=== PATIENT | female | born 1990 | race Caucasian/White ===

== ENCOUNTER 2019-08-09 21:49 | Emergency (ER) | payer OTHER, SELFPAY ==
--- NOTE | ~2019-08-09 | XR_ITS ---
EXAMINATION: XR chest 1V portable INDICATION: Shortness of breath TECHNIQUE: Portable AP chest at 2039 hours COMPARISON: 04/10/2015 FINDINGS: The lungs are free of acute opacities. There is no pleural effusion or pneumothorax. The ca rdiomediastinal silhouette is normal. The visualized bones and soft tissues are unremarkable. IMPRESSION: 1. No acute cardiopulmonary abnormality. Reviewed, dictated and finalized at location A.
[2019-08-09 21:51] VITALS: BP 147/98; PULSE 99; RESP 18; TEMP 36.2; O2SAT 99
--- NOTE | 2019-08-09 22:02 | ECG_ITS ---
Measurements Intervals [place] Rate: 82 P: 8 ID: [id number] QRS: -4 QRSD: 97 T: 6 QT: 361 QTc: 422 Interpretive Statements SINUS RHYTHM VOLTAGE CRITERIA FOR LVH DELAYED PRECORDIAL R/S TRANSITION MINIMAL Q WAVES- HIGH LATERAL LEADS BORDERLINE T WAVE ABNORMALITY- INFERIOR LEADS BORDERLINE ECG Electronically Signed On 08-10-2019 7:40:33 CDT by Kali Lujan D.O.
--- NOTE | 2019-08-09 22:29 | ED.GENADULT ---
HPI - General Adult General Chief complaint: Unspecified Stated complaint: leg swelling Time Seen by Provider: 08/09/19 22:01 Source: RN notes reviewed History of Present Illness HPI narrative: Patient presents emergency department from home for swelling of her legs. Patient states she is had edema of her bilateral legs for the past week. She was seen at her PCPs yesterday and started on a diuretic with minimal improvement. Patient states she called her PCP denied is recommended come to the ED for further evaluation. States she did have surgery on her left foot which is currently in a cast on 07/16/2019. She denies any fevers or chills chest pain shortness of breath abdominal pain, calf pain or any other symptoms. Denies any history of DVT Related Data Home Medications Medication Instructions Recorded Confirmed albuterol sulfate 1 inh INHALATION QID PRN 08/09/19 08/09/19 aspirin 325 mg PO 08/09/19 furosemide 20 mg PO 08/09/19 Allergies Allergy/AdvReac Type Severity Reaction Status Date / Time acetazolamide Allergy Swelling Verified 08/09/19 22:20 of Lip/Tongue/Throat dihydroergotamine Allergy Difficulty Verified 08/09/19 22:20 Breathing lamotrigine [From Lamictal] Allergy Seizure Verified 08/09/19 22:20 levetiracetam [From Keppra] Allergy Seizure Verified 08/09/19 22:20 acetaminophen [From Vicodin] AdvReac Nausea Verified 08/09/19 22:20 hydrocodone [From Vicodin] AdvReac Nausea Verified 08/09/19 22:20 Review of Systems Review of Systems: Narrative: Gen.: Denies fevers or chills ENT: Denies congestion Respiratory: Denies shortness of breath or cough CV: Denies chest pain or palpitations GI: Denies abdominal pain nausea, emesis or diarrhea Musculoskeletal: Denies back pain or muscle pain, reports swelling of the legs Neuro: Denies numbness, tingling, weakness or focal weakness Skin: Denies rash Except as documented, all other systems reviewed and negative PMFSH Past Medical History Medical History (Updated 08/10/19 @ 00:18 by Nestor Wood DO) Patient denies significant medical history Social History Social History (Updated 08/09/19 @ 22:30 by Nestor Wood DO) Smoking status: Never smoker Exam Narrative: Exam Narrative: APPEARANCE: No acute distress, nontoxic, resting in bed EYES: EOMI HEENT: Normocephalic, atraumatic, OMM RESPIRATORY: No respiratory distress Clear to auscultation bilaterally with no rhonchi wheezing or rales. CARDIOVASCULAR: Regular rate and rhythm without murmurs rubs or gallops. ABDOMINAL: Soft, nontender, nondistended, no rebound or guarding MUSCULOSKELETAl: Moves all extremities. No clubbing, cyanosis o 2+ edema in the right lower extremity, the bilateral calves soft and nontender, left lower extremity and short leg cast NEURO: Awake and alert. Following commands, speech normal, no focal deficits SKIN:: Warm, dry. No rashes lesions or abrasions PSYCHIATRIC: Normal affect/mood, Course Course Emergency Course: Called and discussed with Dr. 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 Agrees with plan for discharge with patient be sent for ultrasound in a.m. with single dose of Lovenox given Discussed with patient results of workup and diagnosis. Discussed need for follow-up with primary care, proper use of medication, and reasons to return to the emergency department. Patient understands and agrees to current treatment plan Vital Signs Vital signs: Vital Signs Temperature 97.1 F L 08/09/19 21:51 Pulse Rate 99 08/09/19 21:51 Respiratory Rate 18 08/09/19 21:51 Blood Pressure 147/98 H 08/09/19 21:51 Pulse Oximetry 99 08/09/19 21:51 Temperature 97.1 F L 08/09/19 21:51 Pulse Rate 99 08/09/19 21:51 Respiratory Rate 18 08/09/19 21:51 Blood Pressure 147/98 H 08/09/19 21:51 Pulse Oximetry 99 08/09/19 21:51 Medical Decision Making Vital Signs Vital Signs: Vital Signs Temperature 97.1 F L 08/09/19 21:51 Pulse
[2019-08-09 23:02] LABS: Basophils Percent Auto 0.3 % (0.2-1.2); Eosinophils Absolute Auto 0.1 K/mm3 (0-0.3); Eosinophils Percent Auto 0.5 % (0-4.4); Hematocrit 39.6 % (37.0-47.0); Hemoglobin 13.1 g/dL (12.0-15.0); Immature Granulocyte Absolute 0.05 K/mm3 (0.00-0.031); Immature Granulocyte Percent A 0.4 % (0-0.5); Lymphocytes Percent Auto 29.6 % (18.3-44.2); Mean Corpuscular HGB Conc 33.1 g/dl (32-36); Mean Corpuscular Hemoglobin 28.4 pg (26-34); Mean Corpuscular Volume 85.9 fl (80-100); Mean Platelet Volume 10.5 fl (7.4-10.4); Monocytes Absolute Auto 0.6 K/mm3 (0.1-0.6); Monocytes Percent Auto 5.5 % (2.6-8.5); Neutrophils Absolute Auto 7.1 K/mm3 (1.3-6.7); Neutrophils Percent Auto 63.7 % (45.5-73.1); Platelet Count Result 356 k/mm3 (150-375); Red Blood Count 4.61 M/mm3 (4.2-5.4); Red Cell Distribution Width 14.2 % (11.5-14.5); White Blood Count 11.2 K/mm3 (4.5-10.0)
[2019-08-09 23:10] LABS: Prothrombin Time 12.9 Seconds (11.1-14.7)
[2019-08-09 23:11] LABS: Partial Thromboplastin Time 31.5 SECONDS (22.3-36.8)
[2019-08-09 23:18] LABS: Blood Urea Nitrogen 12 mg/dL (7-17); Calcium 9.8 mg/dL (8.4-10.2); Carbon Dioxide 23 mmol/L (22-30); Chloride 101 mmol/L (98-107); Estimated CRCL calculation 153 ml/min; Estimated Glomerular Filt Rate > 60; Glucose 102 mg/dL (65-105); Potassium 3.6 mmol/L (3.4-5.0); Sodium 134 mmol/L (137-145)
[2019-08-09 23:30] LABS: NT Pro B Type Natriuretic Pept 46 PG/ML (5-100); Troponin I < 0.012 ng/mL (0.000-0.034)
[2019-08-10] MEDS: ENOXAPARIN 120 MG/0.8 ML SYRINGE SUB-Q (00:23)
[2019-08-10 00:27] VITALS: BP 126/81; PULSE 74; RESP 18; O2SAT 100
== END 2019-08-10 00:28 | disposition home or self-care (01) ==
PROVIDERS: Emergency Provider Emergency Medicine; PCP Family Medicine
DX: R60.0 Localized edema (principal); Z79.82 Long term (current) use of aspirin
CPT/HCPCS: 36415; 71045; 80048; 83880; 84484; 85025; 85610; 85730; 93005; 96372; 99284; J1650

== ENCOUNTER 2019-08-10 07:28 | Outpatient (CLI) | payer OTHER, SELFPAY ==
--- NOTE | ~2019-08-10 | US_ITS ---
EXAMINATION: US venous doppler LE EXAM DATE: 08/10/2019 08:25 INDICATION: Bilateral calf pain and swelling. TECHNIQUE: Multiple grayscale, color flow and Doppler images of the lower extremity deep venous syste ms bilaterally were obtained and reviewed. There is no prior study for comparison. FINDINGS: Right side: The right common femoral, femoral and profunda veins demonstrate normal color flow, respi ratory variation, augmentation and compressibility. Compressibility, color flow confirmed within the right popliteal, posterior tibial, peroneal, and greater saphenous veins. Left side: The left common femoral, femoral and profunda veins demonstrate normal color flow, respira tory variation, augmentation and compressibility. Compressibility, color flow confirmed within the l eft popliteal, posterior tibial, peroneal, and greater saphenous veins. IMPRESSION: 1. No lower extremity deep venous thrombosis bilaterally. Reviewed, dictated and finalized at location A.
== END 2019-08-10 07:29 | disposition home or self-care (01) ==
LOC: ANHIMG 07:31
PROVIDERS: Visit Provider Family Medicine
DX: M79.89 Other specified soft tissue disorders (principal)
CPT/HCPCS: 93970

== ENCOUNTER 2019-11-19 22:47 | Emergency (ER) | payer OTHER, SELFPAY ==
--- NOTE | ~2019-11-19 | XR_ITS ---
XR abdomen/kub 1V DATE: 11/20/2019 00:18 INDICATION: Right ureteral stone. Right flank pain. TECHNIQUE: AP projection COMPARISON: 11/19/[address] abdomen pelvis FINDINGS: 5 mm calcification overlies the right inner lower pelvis, consistent with calcified right u reterovesical junction calculus documented on 11/19/[address] abdomen pelvis examination. IUD overlies the mid pelvis. Subtle calcifications overlie the renal silhouettes consistent with bilateral nephrolithiasis better demonstrated on 11/19/[address] abdomen pelvis examination. There is a moderately prominent amount of fecal material in the colon; no bowel obstruction. The psoa s shadows are intact. No visceromegaly is evident. IMPRESSION: 5 mm calcified right ureterovesical junction calculus Bilateral nephrolithiasis IUD Reviewed, dictated and finalized at Location A. Reviewed, dictated and finalized at location A.
--- NOTE | ~2019-11-19 | CT_ITS ---
EXAMINATION: CT abdomen pelvis wo con DATE: 11/19/2019 23:45 INDICATION: Flank pain and hematuria TECHNIQUE: Computed tomography (CT) of the abdomen and pelvis was performed without intravenous contr ast. The dose-length product (DLP) was 1029.88 mGy-cm. Automated exposure control and iterative recon struction technique were employed. COMPARISON: 04/12/2015 FINDINGS: Minimal dependent atelectasis is present in the lung bases. The heart size is normal. There is a small sliding hiatal hernia. The liver, spleen, pancreas, gallbladder, and adrenal glands are n ormal. There is a 5 mm stone at the right ureterovesicular junction which causes mild right hydrouret eronephrosis. Nonobstructing stones of the right kidney measure up to 3 mm in the lower pole. Nonobst ructing stones of the left kidney measure up to 3 mm in the lower pole. No pathologically enlarged ab dominal or pelvic lymph nodes are identified. There is no free intraperitoneal gas or evidence of bow el obstruction. The appendix is normal. An IUD is present in the uterus in expected position. There i s a fat-containing umbilical hernia. IMPRESSION: 1. 5 mm stone at the right ureterovesicular junction causing mild hydroureteronephrosis. Consider KUB for treatment planning purposes. 2. Bilateral nephrolithiasis. Reviewed, dictated and finalized at location A. IMPRESSION: 1. 5 mm stone at the right ureterovesicular junction causing mild hydroureteron ephrosis. Consider KUB for treatment planning purposes. 2. Bilateral nephrolithiasis.
[2019-11-19 22:48] VITALS: BP 144/96; PULSE 81; RESP 16; TEMP 36.3; O2SAT 100
--- NOTE | 2019-11-19 23:14 | ED.FEMALEGU ---
HPI - Female Genitourinary General Chief complaint: Urogenital-Female Stated complaint: back pain, possible uti Time Seen by Provider: 11/19/19 22:53 Source: patient Mode of arrival: ambulatory Limitations: no limitations History of Present Illness HPI Narrative: This is a 29 year old female that presents to the ER for dysuria x 3 days. Associated with frequency, hematuria, nausea and flank pain. Reports one episode of vomiting. Also reports she slipped and fell one week ago and landed on her bottom. Reports since she has had sacral pain. Denies fever. Related Data Home Medications Medication Instructions Recorded Confirmed albuterol sulfate 1 inh INHALATION QID PRN 08/09/19 08/09/19 aspirin 325 mg PO 08/09/19 furosemide 20 mg PO 08/09/19 Allergies Allergy/AdvReac Type Severity Reaction Status Date / Time acetazolamide Allergy Swelling Verified 08/09/19 22:20 of Lip/Tongue/Throat dihydroergotamine Allergy Difficulty Verified 08/09/19 22:20 Breathing lamotrigine [From Lamictal] Allergy Seizure Verified 08/09/19 22:20 levetiracetam [From Keppra] Allergy Seizure Verified 08/09/19 22:20 hydrocodone [From Vicodin] AdvReac Nausea Verified 08/09/19 22:20 Review of Systems Review of Systems: Narrative: CONSTITUTIONAL: Denies fever GASTROINTESTINAL: Reports abdominal pain, nausea, vomiting GENITOURINARY: Reports dysuria and hematuria. MUSCULOSKELETAL: Reports back pain All systems reviewed & are unremarkable except as noted in HPI and below PMFSH Past Medical History Medical History (Updated 11/20/19 @ 01:27 by Jud Jaramillo PA-C) Patient denies significant medical history Social History Social History (Updated 08/09/19 @ 22:30 by Nestor Wood DO) Smoking status: Never smoker Exam Narrative: Exam Narrative: GENERAL: Well-appearing, well-nourished, and in no acute distress. HEAD: Normocephalic, atraumatic. EYES: EOMI. CHEST: Clear to auscultation. No respiratory distress. No wheezes rales or rhonchi HEART: Regular rate and rhythm. No murmur heard. Normal peripheral pulses. ABDOMEN: Soft, nontender, nondistended, normal active bowel sounds. No CVA tenderness BACK: No midline spinal tenderness EXTREMITIES: Normal range of motion. No edema. Strength equal in bilateral lower extremities (5/5) SKIN: Warm, dry, no rash. NEURO: No focal deficits. Alert and oriented x3. PSYCH: Normal mood and affect Course Vital Signs Vital signs: Vital Signs Temperature 97.4 F L 11/19/19 22:48 Pulse Rate 81 11/19/19 22:48 Respiratory Rate 16 11/19/19 22:48 Blood Pressure 144/96 H 11/19/19 22:48 Pulse Oximetry 100 11/19/19 22:48 Temperature 97.4 F L 11/19/19 22:48 Pulse Rate 81 11/19/19 22:48 Respiratory Rate 16 11/19/19 22:48 Blood Pressure 144/96 H 11/19/19 22:48 Pulse Oximetry 100 11/19/19 22:48 MDM - Female Genitourinary MDM Narrative Medical decision making narrative: Patient presents the emergency department for dysuria, frequency, and right-sided flank pain. She is afebrile and nontoxic-appearing. CBC with mild leukocytosis to 11.6. Kidney function is normal. Lactic acid is not elevated. UA is nitrate positive with greater than 75 red blood cells and 4-6 white blood cells. Bedside test is negative. CT scan of the abdomen and pelvis shows a 5 mm stone at the right UVJ with mild hydroureteronephrosis. Also shows bilateral nephrolithiasis. Patient was updated on case findings. Given IV fluids and pain medication with improvement. Given first dose of antibiotics IV in the ED. Spoke with Dr. Stacy about patient and work-up. Patient will be sent home on Flomax and antibiotics. Will be given pain medication as needed. She is to follow-up in clinic. Patient is stable and felt appropriate further outpatient evaluation. She was given warnings to return to the ER Lab Data Attestation: I reviewed the patient's lab results. Result diagrams:
[2019-11-19 23:23] LABS: Basophils Percent Auto 0.3 % (0.2-1.2); Eosinophils Absolute Auto 0.1 K/mm3 (0-0.3); Eosinophils Percent Auto 1.2 % (0-4.4); Hematocrit 36.9 % (37.0-47.0); Hemoglobin 11.8 g/dL (12.0-15.0); Immature Granulocyte Absolute 0.04 K/mm3 (0.00-0.031); Immature Granulocyte Percent A 0.3 % (0-0.5); Lymphocytes Absolute Auto 3.53 K/mm3 (0.9-3.2); Lymphocytes Percent Auto 30.5 % (18.3-44.2); Mean Corpuscular Hemoglobin 28.8 pg (26-34); Mean Platelet Volume 9.6 fl (7.4-10.4); Monocytes Absolute Auto 0.7 K/mm3 (0.1-0.6); Monocytes Percent Auto 5.9 % (2.6-8.5); Neutrophils Absolute Auto 7.1 K/mm3 (1.3-6.7); Neutrophils Percent Auto 61.8 % (45.5-73.1); Platelet Count Result 379 k/mm3 (150-375); Red Cell Distribution Width 14.4 % (11.5-14.5); White Blood Count 11.6 K/mm3 (4.5-10.0)
[2019-11-19 23:33] LABS: Add Urine Microscopic? YES; Appearance Urine Clear (Clear); Bilirubin Urine Negative (Negative); Blood Urine 3+ (Negative); Color Urine Amber (Yellow); Glucose Urine UA Negative (Negative); Ketones Urine Negative (Negative); Leukocyte Esterase Ur Negative LEU/UL (Negative); Mucus Urine Rare /lpf; Nitrate Urine Positive (Negative); Protein Urine Negative (Negative); RBC Urine >75 /hpf (0-2); Specific Grav Ur 1.023 (1.001-1.035); Squamous Epithelial Cell Urine Few /hpf (Few)
[2019-11-19 23:37] LABS: Alanine Aminotransferase 17 U/L (4-35); Albumin Level 4.2 g/dL (3.5-5.1); Alkaline Phosphatase 102 U/L (38-126); Anion Gap 7 mmol/L (8-16); Aspartate Amino Transferase 21 U/L (14-36); Bilirubin,Total 0.4 mg/dL (0.2-1.3); Blood Urea Nitrogen 13 mg/dL (7-17); Calcium 9.2 mg/dL (8.4-10.2); Carbon Dioxide 30 mmol/L (22-30); Chloride 102 mmol/L (98-107); Estimated CRCL calculation 140 ml/min; Estimated Glomerular Filt Rate > 60; Glucose 104 mg/dL (65-105); Lipase 53 U/L (23-300); Potassium 3.8 mmol/L (3.4-5.0); Sodium 139 mmol/L (137-145)
[2019-11-20 00:32] VITALS: BP 138/83; PULSE 83; RESP 16; O2SAT 100
[2019-11-20] MEDS: SODIUM CHLORIDE 0.9% IV 1,000 ML 999 ML IV CONT (00:33)
[2019-11-20 00:36] LABS: Lactic Acid Reflex 0.7 mmol/L (0.7-2.1)
[2019-11-20] MEDS: KETOROLAC 15 MG/ML VIAL (*BKC) IV PUSH (01:37)
[2019-11-20 01:59] VITALS: BP 143/67; PULSE 85; RESP 18; TEMP 36.3; TEMP 36.8; O2SAT 100
== END 2019-11-20 02:02 | disposition home or self-care (01) ==
PROVIDERS: Physician Assistant; Emergency Provider Emergency Medicine; PCP Family Medicine
DX: N30.01 Acute cystitis with hematuria (principal); N13.2 Hydronephrosis with renal and ureteral calculous obstruction
CPT/HCPCS: 36415; 74018; 74176; 80053; 81001; 81025; 83605; 83690; 85025; 87086; 87088; 96365; 96368; 96375; 99284; J0131; J0696; J1885; J7030

== ENCOUNTER 2019-12-20 15:22 | Emergency (ER) | payer OTHER, SELFPAY ==
--- NOTE | ~2019-12-20 | XR_ITS ---
EXAMINATION: XR chest 1V portable DATE: 12/20/2019 18:38 INDICATION: Fever. TECHNIQUE: A single frontal view of the chest was obtained. COMPARISON: Chest single view 08/09/2019, CT abdomen and pelvis 11/19/2019 FINDINGS: There are airspace opacities in right lower lung zone. No pleural effusion or pneumothorax. The heart size is normal. IMPRESSION: 1. Airspace opacities in right lower lung zone, consistent with atelectasis versus pneumonia. Reviewed, dictated and finalized at location A. TER SUPERVISOR IMPRESSION: 1. Airspace opacities in right lower lung zone, consistent with atelectasis samantha nadeem pneumonia.
[2019-12-20 16:40] VITALS: BP 138/99; PULSE 100; RESP 18; TEMP 36.9; O2SAT 98
[2019-12-20 18:24] VITALS: BP 135/114; BP 140/91; PULSE 107; PULSE 89
[2019-12-20 18:25] VITALS: BP 129/114; PULSE 123
[2019-12-20] MEDS: SODIUM CHLORIDE 0.9% IV 1,000 ML 999 ML IV CONT (18:41)
[2019-12-20 18:46] VITALS: PULSE 99; RESP 18; O2SAT 100
--- NOTE | 2019-12-20 19:10 | ED.GENADULT ---
HPI - General Adult General Chief complaint: Upper Respiratory Infection Stated complaint: dizzy, lightheaded, covid sx, Time Seen by Provider: 12/20/19 18:15 Source: patient Mode of arrival: ambulatory Limitations: no limitations History of Present Illness HPI narrative: Patient is a 29-year-old female who presents to emergency department for evaluation of upper respiratory symptoms with congestion rhinorrhea cough nausea headaches tested for Covid yesterday testing pending came in for concern of dehydration denies vomiting diarrhea patient has been taking [id number] medications and managed by primary care for this Related Data Home Medications Medication Instructions Recorded Confirmed azithromycin 12/20/19 budesonide-formoterol [Symbicort] INHALATION 12/20/19 codeine-guaifenesin ml 12/20/19 12/20/19 fluticasone propionate INTRANASAL 12/20/19 Allergies Allergy/AdvReac Type Severity Reaction Status Date / Time acetazolamide Allergy Swelling Verified 12/20/19 18:19 of Lip/Tongue/Throat dihydroergotamine Allergy Difficulty Verified 12/20/19 18:19 Breathing lamotrigine [From Lamictal] Allergy Seizure Verified 12/20/19 18:19 levetiracetam [From Keppra] Allergy Seizure Verified 12/20/19 18:19 hydrocodone [From Vicodin] AdvReac Nausea Verified 12/20/19 18:19 Review of Systems Review of Systems: All systems reviewed & are unremarkable except as noted in HPI and below PMFSH Past Medical History Medical History Patient denies significant medical history Social History Social History Smoking status: Never smoker Gender identity (if verbalized by the patient): Female Exam Narrative: Exam Narrative: GENERAL: Well-appearing, well-nourished, and in no acute distress. HEAD: Normocephalic, atraumatic. EYES: PERRLA and EOMI. ENT: Nares clear, no rhinorrhea or epistaxis. Mucous membranes moist. CHEST: Clear to auscultation. No respiratory distress. No wheezes rales or rhonchi HEART: Regular rate and rhythm. No murmur heard. EXTREMITIES: Normal range of motion. No edema. SKIN: Warm, dry, no rash. NEURO: No focal deficits. Alert and oriented x3. PSYCH: Normal mood and affect. Course Course Emergency Course: Patient in the room in no distress Covid testing pending felt appropriate for outpatient reevaluation hemodynamically stable no pneumonia Vital Signs Vital signs: Vital Signs Temperature 98.5 F 12/20/19 16:40 Pulse Rate 100 12/20/19 16:40 Respiratory Rate 18 12/20/19 16:40 Blood Pressure 138/99 H 12/20/19 16:40 Pulse Oximetry 98 12/20/19 16:40 Temperature 98.5 F 12/20/19 16:40 Pulse Rate 99 12/20/19 18:46 Respiratory Rate 18 12/20/19 18:46 Blood Pressure 129/114 H 12/20/19 18:25 Pulse Oximetry 100 12/20/19 18:46 Medical Decision Making MDM Narrative Medical decision making narrative: Patient in the room in no distress aware of case findings treatment plan diagnosis agreeing to follow-up as directed or to return if symptoms worsen or concerns Vital Signs Vital Signs: Vital Signs Temperature 98.5 F 12/20/19 16:40 Pulse Rate 100 12/20/19 16:40 Respiratory Rate 18 12/20/19 16:40 Blood Pressure 138/99 H 12/20/19 16:40 Pulse Oximetry 98 12/20/19 16:40 Temperature 98.5 F 12/20/19 16:40 Pulse Rate 99 12/20/19 18:46 Respiratory Rate 18 12/20/19 18:46 Blood Pressure 129/114 H 12/20/19 18:25 Pulse Oximetry 100 12/20/19 18:46 Discharge Plan Discharge Clinical Impression: Upper respiratory infection Patient Disposition: Home, Self-Care Condition: Stable Instructions: Antibiotic Form, COVID-19 (Coronavirus Disease 2019) (ED) Additional Instructions: Follow up with your primary care provider within 1-2 days for your Covid results and to set up for reevaluation. Go to ER for shortness of
--- NOTE | 2019-12-20 19:10 | PC.NURSE ---
assuming care of pt at this time. received report from carolyn álvarez
[2019-12-20] MEDS: KETOROLAC 30 MG/ML VIAL (*BKC) IV PUSH (20:04)
[2019-12-20 20:14] VITALS: BP 135/84; PULSE 97; RESP 18; O2SAT 99
== END 2019-12-20 20:16 | disposition home or self-care (01) ==
PROVIDERS: Emergency Provider Emergency Medicine; PCP Family Medicine
DX: J06.9 Acute upper respiratory infection, unspecified (principal); Z20.828 Contact with and (suspected) exposure to other viral communicable diseases
CPT/HCPCS: 71045; 96361; 96365; 96375; 99284; J0131; J1885; J7030

== ENCOUNTER 2019-12-23 22:40 | Emergency (ER) | payer OTHER, SELFPAY ==
[2019-12-23 22:41] VITALS: BP 139/90; PULSE 96; RESP 18; TEMP 36.9; O2SAT 95
[2019-12-23 23:35] VITALS: BP 127/82; BP 128/65; BP 136/80; PULSE 90
--- NOTE | 2019-12-23 23:42 | ED.SOB ---
HPI - SOB/Dyspnea General Chief Complaint: Shortness of Breath/Dyspnea Stated Complaint: sob History of Present Illness HPI Narrative: Patient is a 29-year-old female who presents ER with shortness of breath. Patient had a positive Covid test returned yesterday. She has been symptomatic for a little over a week. Reports she is having severe coughing fits that were making where she cannot breathe and she believes her lips turn blue. She has been having posttussive emesis. She has been using albuterol. She has been on 2 different antibiotics and is currently taking dexamethasone. She reports her shortness of breath is actually improved today compared to previous days. She has heard no wheezing or rattling. Patient also reports she gets positional dizziness when she goes from sitting to standing. No syncope. Related Data Home Medications Medication Instructions Recorded Confirmed azithromycin 12/20/19 budesonide-formoterol [Symbicort] INHALATION 12/20/19 codeine-guaifenesin ml 12/20/19 12/20/19 fluticasone propionate INTRANASAL 12/20/19 Allergies Allergy/AdvReac Type Severity Reaction Status Date / Time acetazolamide Allergy Swelling Verified 12/20/19 18:19 of Lip/Tongue/Throat dihydroergotamine Allergy Difficulty Verified 12/20/19 18:19 Breathing lamotrigine [From Lamictal] Allergy Seizure Verified 12/20/19 18:19 levetiracetam [From Keppra] Allergy Seizure Verified 12/20/19 18:19 hydrocodone [From Vicodin] AdvReac Nausea Verified 12/20/19 18:19 Review of Systems Review of Systems: All systems reviewed & are unremarkable except as noted in HPI and below Constitutional: Constitutional: Reports fatigue and Reports fever(s) Respiratory: Respiratory: Reports cough, Reports dyspnea and Denies wheezing Gastrointestinal: Gastrointestinal: Denies nausea and Reports vomiting Neurologic: Reports dizziness PMFSH Past Medical History Medical History Patient denies significant medical history Social History Social History Smoking status: Never smoker Gender identity (if verbalized by the patient): Female Exam Narrative: Exam Narrative: GENERAL: Well-appearing, well-nourished, and in no acute distress. HEAD: Normocephalic, atraumatic. CHEST: Clear to auscultation. No respiratory distress. HEART: Regular rate and rhythm. Normal peripheral pulses. EXTREMITIES: Normal range of motion. No edema. NEURO: Alert and oriented x3. PSYCH: Normal mood and affect. Course Course Emergency Course: Orthostatics negative. No wheezing. No hypoxia. Will not repeat x-ray as patient is already on antibiotics. Will discharge with Tessalon Perles for cough. Vital Signs Vital signs: Vital Signs Temperature 98.4 F 12/23/19 22:41 Pulse Rate 96 12/23/19 22:41 Respiratory Rate 18 12/23/19 22:41 Blood Pressure 139/90 12/23/19 22:41 Pulse Oximetry 95 12/23/19 22:41 Temperature 98.4 F 12/23/19 22:41 Pulse Rate 90 12/23/19 23:35 Respiratory Rate 18 12/23/19 22:41 Blood Pressure 127/82 12/23/19 23:35 Pulse Oximetry 95 12/23/19 22:41 Discharge Plan Discharge Clinical Impression: COVID-19, Dyspnea Patient Disposition: Home, Self-Care Condition: Stable Instructions: Dyspnea (ED), COVID-19 (Coronavirus Disease 2019) (ED) Additional Instructions: Return to the ER if you cannot keep down food or water, you lose consciousness, you have additional concerns. You have been prescribed Tessalon Perles to help decrease your cough. Prescriptions: New benzonatate [Tessalon Perles] 100 mg capsule 100 mg PO TID PRN (Reason: cough) Qty: 14 RF: 0 No Action azithromycin 250 mg tablet RF: 0 codeine-guaifenesin 10-100 mg/5 mL liquid RF: 0 fluticasone propionate 50 mcg/actuation spray,suspension INTRANASAL RF: 0 budesonide
[2019-12-24 00:28] VITALS: BP 124/87; PULSE 91; RESP 20; TEMP 36.8; O2SAT 96
== END 2019-12-24 00:29 | disposition home or self-care (01) ==
PROVIDERS: Emergency Provider Emergency Medicine; PCP Family Medicine
DX: U07.1 COVID-19 (principal); R06.00 Dyspnea, unspecified
CPT/HCPCS: 99283

== ENCOUNTER 2020-02-06 10:00 | Outpatient (RCR) | payer OTHER, SELFPAY ==
--- NOTE | 2019-11-14 16:51 | PTOPEVAL ---
INITIAL PHYSICAL THERAPY EVALUATION and PLAN OF CARE Thank you for referring Jud Leung to [facility].? Jud is scheduled to be seen for physical therapy? 2x/week for 6 weeks. Please review, sign, date and return this plan of care GUILLERMINA. I agree with and certify that the following plan of care is medically necessary. Referring Physician Date Admitting Provider: Attending Provider: Charissa Holley MD Referring Provider: *PT Outpatient Evaluation Start: 11/14/19 15:18 Freq: Status: Active Protocol: Document 11/14/19 15:15 KEVYN (Rec: 11/14/19 16:50 KEVYN [id number]) Therapy Assessment Status Assessment Status Assessment Status Evaluation Outpatient Past Medical History Past Medical History Source of Past Medical History Patient Neurological History Hx Migraine Yes Hx Other Neurological Disorders Yes: idopathic intercranial hypertension Cardiovascular History Hx Cardiac Disorders No Significant History Respiratory History Hx Bronchitis Yes Hx Other Respiratory Disorders Yes: reactive airway disease Gastrointestinal History Hx Gastroesophageal Reflux Disease Yes Genitourinary History Hx Kidney Stones Yes Musculoskeletal History Hx Arthritis Yes: knees, back Hx Orthopedic Surgery Yes: 3 L foot surgeries, 1 R foot surgery Endocrine History Hx Endocrine Disorders No Significant History HEENT History Hx Tonsillectomy Yes: 3rd grade Integumentary History Hx Other Skin Disorders Yes: lymphadema LE's Reproductive History Hx Endometriosis Yes: laproscopic surgery Evaluation Information Problem Diagnosis Revision L TMT joint arthrodesis, orthopedic aftercare Onset July 16, 2019 Additional Evaluation Detail 1st surgery - July 25, 2018 - bunionectomy/arthrodesis 2nd surgery - September 2018 - removed hardware that shifted and replace with new hardware - nonunion occurred - bone stimulation done 3rd surgery - removed hardware , iliac crest bone graft, new hardward replace Subjective Information Since 3rd surgery - casted, Query Text:As Reported By Patient/ NWB x 6 wks, walking cast x 4 Family weeks, walking boot x [address] scan shows 95% healing Sleeping - hasn't changed usual sleeping pattern for her
--- NOTE | 2019-12-16 11:41 | PCPTNOTE ---
Patient called & cancelled scheduled appointment this date due to not feeling well.
--- NOTE | 2019-12-18 09:32 | PCPTNOTE ---
Patient called & cancelled scheduled appointment this date due to not feeling well.
--- NOTE | 2019-12-23 12:30 | PCPTNOTE ---
Patient did not show up for scheduled appointment this date. Called patient on 12/23/2019 to which she reported she is positive for COVID. Patient reports she has been in the ER and just forgot to call. Patient states she does not know when she can return or when she will feel better. Left a note for therapist to call patient back to reschedule or move appointments.
--- NOTE | 2019-12-24 09:59 | PCPTNOTE ---
Jud was phoned this am in regards to her COVID positive test. She was informed that she would need to wait until 14 days after her test before she could return to PT. She is still not feeling well. Will cancel 12/25 and 12/30 re-eval appointments. She can be seen again after 01/03/2020. She is to call to reschedule these appointments.
--- NOTE | 2020-01-07 17:00 | PTOPEVAL ---
PHYSICAL THERAPY RE-EVALUATION and UPDATED PLAN OF CARE Thank you for referring Jud Leung to [facility].? Jud has made progress towards goals set, but her care was interrupted x 3 wks due to illness including + for COVID 19. She was not able to fully meet goals set. Jud is scheduled to be seen for physical therapy? 2x/week for 4 weeks. Please review, sign, date and return this plan of care GUILLERMINA. I agree with and certify that the following plan of care is medically necessary. Referring Physician Date Admitting Provider: Attending Provider: PHYSICIAN NOT ON STAFF Referring Provider: *PT Outpatient Evaluation Start: 11/14/19 15:18 Freq: Status: Active Protocol: Document 01/07/20 13:35 KEVYN (Rec: 01/07/20 14:33 KEVYN [id number]) Therapy Assessment Status Assessment Status Assessment Status Re-evaluation Evaluation Information Problem Subjective Information Jud reports that she has Query Text:As Reported By Patient/ begun to feel better again in Family regards to her lungs/COVID. She stated that she came to the hospital x 2. L foot has returned to feeling like she just got out of the cast - feels like she has reverted back to the beginning. Couple of times when she was ill she was unable to stand on her L LE. R foot is also painful at times. Pain Assessment Timing of Pain Assessment Timing of Pain Assessment Assessment Pain Scale Pain Scale Used Numeric (1 - 10) Self Report Pain Assessment Left Foot/Feet Reported Pain Level 7 Pain Description Sharp Lowest Pain Intensity 3 Greatest Pain Intensity 9 Pain Score Pain Score 7: Self Report Interventions Used Interventions Used By Clinicians Exercise,Manual Therapy Techniques Lower Extremity Range of Motion Ankle/Foot Range of Motion Left Ankle Dorsiflextion With Knee Extension 8 Range of Motion - Active Ankle Dorsiflextion With Knee Flexed 8 Range of Motion - Active Ankle Plantarflexion Range of Motion - 60 Active Query Text: Ankle Eversion Range of Motion - Active 30 Ankle Inversion Range of Motion - Active 35 Lower Extremity Muscle Strength Testing General Lower Extremity Strength Gross Lower Extremity Strength L Quad strength 5/5 L hip abduction 4+/5 Ankle Strength Left Ankle Plantarflexion Strength 2+ Poor + Ankle Strength Comments anterior tibialis 5/5, peroneal brevis, peroneal
--- NOTE | 2020-02-06 10:55 | PTOPEVAL ---
PHYSICAL THERAPY DISCHARGE SUMMARY Thank you for referring Jud Leung to [facility].? Jud was seen x 18 visits. All goals have been met. She is ready to be d/c'ed from PT to HEP. I agree with Jud's discharge from PT. Referring Physician Date Admitting Provider: Attending Provider: Charissa Holley MD Referring Provider: *PT Outpatient Evaluation Start: 11/14/19 15:18 Freq: Status: Active Protocol: Document 02/06/20 10:10 KEVYN (Rec: 02/06/20 10:54 KEVYN [id number]) Therapy Assessment Status Assessment Status Assessment Status Discharge Evaluation Information Problem Subjective Information Jud states that when she is Query Text:As Reported By Patient/ up on her foot for a long time Family - increased pain will occur - up to 10/23. Having increased discomfort with L knee, hip and back now. Pain Assessment Timing of Pain Assessment Timing of Pain Assessment Assessment Pain Scale Pain Scale Used Numeric (1 - 10) Self Report Pain Assessment Left Foot/Feet Reported Pain Level 4 Lowest Pain Intensity 1 Greatest Pain Intensity 9 Pain Score Pain Score 4: Self Report Interventions Used Interventions Used By Clinicians Exercise Lower Extremity Range of Motion Ankle/Foot Range of Motion Left Ankle Dorsiflexion With Knee Extension 8 Range of Motion - Active Ankle Dorsiflexion With Knee Flexed 8 Range of Motion - Active Ankle Plantarflexion Range of Motion - 57 Active Query Text: Ankle Eversion Range of Motion - Active 40 Ankle Inversion Range of Motion - Active 47 Lower Extremity Muscle Strength Testing Ankle Strength Left Ankle Plantarflexion Strength 3 Fair Ankle Strength Comments posterior tibialis - 5/5 Single leg stance R 45 sec L 25 sec Palpation Assessment Palpation Palpation Good metatarsal mobility, good incisional mobility Gait Assessment Gait Pattern Assessment Gait Pattern No Deviations/Normal Stair Climbing Assessment Stair Climbing Assessment Stair Climbing Assistive Devices None Number of Steps Climbed (Steps) 4 Number of Repetitions (Repetitions) 1 Technique Alternating Steps Stair Climbing Direction Both Up and Down Cues Needed For Stair Climbing None PT Clinical Summary Clinical Summary Protocol: PTEVCODE PT Clinical Summary Foot and Ankle Ability Measure - 77% Jud has done well these last treatment sessions an
== END 2020-02-12 23:59 | disposition home or self-care (01) ==
LOC: ANHPT 10:00
DX: Z47.89 Encounter for other orthopedic aftercare (principal)
CPT/HCPCS: 97110; 97140; 97162

== ENCOUNTER 2020-04-08 09:30 | Outpatient (RCR) | payer OTHER, SELFPAY ==
--- NOTE | 2020-03-13 12:02 | PTOPEVAL ---
Addendum entered by Alexandra Samuel, PT 03/13/20 12:05: PHYSICAL THERAPY EVALUATION Original Note: Thank you for referring Jud Leung to [facility].? The patient is scheduled to be seen for therapy? ____x/week for ___ weeks. Please review, sign, date and return this plan of care GUILLERMINA. I agree with and certify that the following plan of care is medically necessary. Referring Physician Date Admitting Provider: Attending Provider: Daily Cruz, Referring Provider: Daily Cruz, *PT Outpatient Evaluation Start: 03/13/20 10:00 Freq: Status: Active Protocol: Document 03/13/20 10:02 MLV (Rec: 03/13/20 11:[address] [facility] [id number]) Therapy Assessment Status Evaluation Information Problem Diagnosis jameel. knee pain, chronic LBP Onset 3 months Cause no injury Additional Evaluation Detail Patient has had jameel. knee pain for about 2 years and had therapy for right knee pain due to torn cartilage but her knee still hurts. The pain has gotten worse in last 3 months at right knee. The patient denies an injury. The patient does not work and current activity level is very sedentary. The pain is worse at night and is affecting her sleep. Subjective Information Patient reports increased pain Query Text:As Reported By Patient/ with squatting, going up the Family stairs, and sitting with knees bent. The patient had therapy for jameel. foot pain and feels her knee pain flared while working on some of the weightbearing exercises with the foot therapy. Patient going to join [facility] for swimming today. PT encourages patient for this plan. * Patient has chronic back pain with pain 6/10 since 21 years old with hx of DDD/ bulging discs. Has had therapy and pain management in past and is not currently doing her exercises for her back. Pain Assessment Timing of Pain Assessment Timing of Pain Assessment Assessment Pain Scale Pain Scale Used Numeric (1 - 10) Self Report Pain Assessment
--- NOTE | 2020-03-13 12:28 | PTOPEVAL ---
PHYSICAL THERAPY EVALUATION Thank you for referring Jud Leung to [facility].? The patient was evaluated with the dx of jameel. knee pain, chronic low back pain. The patient is scheduled to be seen for therapy?2 x/week for 4 weeks. Please review, sign, date and return this plan of care GUILLERMINA. I agree with and certify that the following plan of care is medically necessary. Referring Physician Date Referring Provider: Daily Cruz, MD *PT Outpatient Evaluation Start: 03/13/20 10:00 Freq: Status: Active Protocol: Document 03/13/20 10:02 [facility] (Rec: 03/13/20 11:25 [facility] [id number]) Assessment Status Evaluation Evaluation Information Problem Diagnosis jameel. knee pain Onset 3 months Cause no injury Additional Evaluation Detail Patient has had jameel. knee pain for about 2 years and had therapy for right knee pain due to torn cartilage but her knee still hurts. The pain has gotten worse in last 3 months at right knee. The patient denies an injury. The patient does not work and current activity level is very sedentary. The pain is worse at night and is affecting her sleep. Subjective Information Patient reports increased pain Query Text:As Reported By Patient/ with squatting, going up the Family stairs, and sitting with knees bent. The patient had therapy for jameel. foot pain and feels her knee pain flared while working on some of the weightbearing exercises with the foot therapy. Patient going to join [employer] for swimming today. PT encourages patient for this plan. * Patient has chronic back pain with pain 6/10 since 21 years old with hx of DDD/ bulging discs. Has had therapy and pain management in past and is not currently doing her exercises for her back. Prior Level of Function Activity Level (Last 3 Months) Occupation on disability Hand Dominance Right Activity of Daily Living Ability Independent Indoor/Home Mobility
--- NOTE | 2020-03-30 09:56 | PCPTNOTE ---
Patient called & cancelled scheduled appointment this date due to weather.
--- NOTE | 2020-04-08 10:27 | PTOPEVAL ---
Addendum entered by Alexandra Samuel, PT 04/08/20 11:42: disregard this note: changes made and new note written. See following note for correct details. Original Note: PHYSICAL THERAPY DISCHARGE Thank you for referring Jud Leung to [facility].? The patient has been seen 8 visits for the dx of low back pain and jameel. knee pain. Goals are partially met and patient has peaked with skilled PT. D/C PT at this time. Please review, sign, date and return this plan of care GUILLERMINA. I agree with and certify the following plan of care. Referring Physician Date Referring Provider: Daily Cruz, *PT Outpatient Discharge Start: 03/13/20 10:00 Freq: Status: Active Protocol: Document 04/08/20 09:30 MLV (Rec: 04/08/20 10:26 MLV [email or web address]) Assessment Status Discharge Evaluation Information Problem Diagnosis low back pain and jameel. knee pain Onset 3 months Cause no injury Additional Evaluation Detail Patient reports pain had decreased some then has flared back up. Patient reports non- compliance with exercises and pool exercises for last 1 to 1 .5 weeks. The patient has walked 2 times for a short walk with her sister and feels this counts as her exercise. Pain Assessment Timing of Pain Assessment Timing of Pain Assessment Assessment Pain Scale Pain Scale Used Numeric (1 - 10) Self Report Pain Assessment Lower Back Reported Pain Level 8 Pain Description Pinching Pain Frequency Chronic Left Knee(s) Reported Pain Level 6 Right Knee(s) Reported Pain Level 7 Pain Score Pain Score 8,6,7: Self Report Interventions Used Interventions Used By Clinicians Education,Exercise Pain Relief Interventions Used By Heat,Ice,Inactivity/Rest, Patient Position Change,Splinting Cervical and Lumbar ROM Lumbar ROM Reason Not Measured WNL/Left,WNL/Right Lower Extremity Range of Motion General Lower Extremity Range of Motion Reason Not Measured WNL/Left,WNL/Right Cervical and Lumbar Muscle Testing Lumbar Strength Lumbar Functional Strength Comments improved muscle endurance; tolerates 10-15 reps of core exercises with 50% less fatigue than at eval. Patient able to move through more range during exercise also. Lower Extremity Muscle Strength Testing General Lower Extremity Strength Gross Lower Extremity Strength decreased
--- NOTE | 2020-04-08 11:39 | PTOPEVAL ---
PHYSICAL THERAPY DISCHARGE Thank you for referring Jud Leung to [facility].? The patient has been seen 8 visits for the dx of low back pain and jameel. knee pain. Goals are not being met-patient peaked with therapy due to continued pain and limited compliance with therapy. D/C PT at this time. Please review, sign, date and return this plan of care. I agree with and certify the following plan of care. Referring Physician Date Referring Provider: Daily Cruz, *PT Outpatient Discharge Start: 03/13/20 10:00 Freq: Status: Active Protocol: Document 04/08/20 09:30 MLV (Rec: 04/08/20 10:26 MLV [email or web address]) Assessment Status Discharge Evaluation Information Problem Diagnosis low back pain and jameel. knee pain Onset 3 months Cause no injury Additional Evaluation Detail Patient reports pain had decreased some then has flared back up. Patient reports non- compliance with exercises and pool exercises for last 1 to 1 .5 weeks. The patient has walked 2 times for a short walk with her sister and feels this counts as her exercise. Pain Assessment Timing of Pain Assessment Timing of Pain Assessment Assessment Pain Scale Pain Scale Used Numeric (1 - 10) Self Report Pain Assessment Lower Back Reported Pain Level 8 Pain Description Pinching Pain Frequency Chronic Left Knee(s) Reported Pain Level 6 Right Knee(s) Reported Pain Level 7 Pain Score Pain Score 8,6,7: Self Report Interventions Used Interventions Used By Clinicians Education,Exercise Pain Relief Interventions Used By Heat,Ice,Inactivity/Rest, Patient Position Change,Splinting Cervical and Lumbar ROM Lumbar ROM Reason Not Measured WNL/Left,WNL/Right Lower Extremity Range of Motion General Lower Extremity Range of Motion Reason Not Measured WNL/Left,WNL/Right Cervical and Lumbar Muscle Testing Lumbar Strength Lumbar Functional Strength Comments improved muscle endurance; tolerates 10-15 reps of core exercises with 50% less fatigue than at eval. Patient able to move through more range during exercise also. Lower Extremity Muscle Strength Testing General Lower Extremity Strength Gross Lower Extremity Strength decreased fatigue with LE exercises and no rests req
== END 2020-04-09 10:58 | disposition home or self-care (01) ==
LOC: ANHPT 09:30
PROVIDERS: PCP Family Medicine; Referring Provider Family Medicine; Visit Provider Family Medicine
DX: M25.561 Pain in right knee (principal); M25.562 Pain in left knee; M25.551 Pain in right hip; M25.552 Pain in left hip; G89.29 Other chronic pain; M51.36 Other intervertebral disc degeneration, lumbar region
CPT/HCPCS: 97110; 97162

== ENCOUNTER 2020-09-18 15:00 | Outpatient (RCR) | payer OTHER, SELFPAY ==
--- NOTE | 2020-07-10 16:20 | PTOPEVAL ---
Thank you for referring Jud Leung to [facility].? The patient is scheduled to be seen for therapy? 2 x/week for 6 weeks. Please review, sign, date and return this plan of care GUILLERMINA. I agree with and certify that the following plan of care is medically necessary. Referring Physician Date Referring Provider: Dr. Logan Morel *PT Outpatient Evaluation Start: 07/10/20 14:10 Freq: Status: Active Protocol: Document 07/10/20 14:11 MAGALI (Rec: 07/10/20 15:17 MAGALI [id number]) Therapy Assessment Status Assessment Status Assessment Status Evaluation Outpatient Past Medical History Past Medical History Source of Past Medical History Patient Neurological History Hx Migraine Yes Hx Other Neurological Disorders Yes: idopathic intercranial hypertension Cardiovascular History Hx Cardiac Disorders No Significant History Respiratory History Hx Bronchitis Yes Hx Other Respiratory Disorders Yes: reactive airway disease Gastrointestinal History Hx Gastroesophageal Reflux Disease Yes Genitourinary History Hx Kidney Stones Yes Musculoskeletal History Hx Arthritis Yes: knees, back Hx Back Pain Yes: chronic Hx Degenerative Disk Disease Yes: diagnosed 2019 or before per pt Hx Orthopedic Surgery Yes: 3 L foot surgeries, 1 R foot surgery Endocrine History Hx Endocrine Disorders No Significant History HEENT History Hx Tonsillectomy Yes: 3rd grade Integumentary History Hx Other Skin Disorders Yes: lymphadema LE's Reproductive History Hx Endometriosis Yes: laproscopic surgery Pain History Has Past Pain Affected Your Daily Life Yes: sedentary lifestyle due to multiple joint issues ( chronic) Other History Hx Other Medical Conditions Yes: chronic obesity (non- medical) Evaluation Information Problem Diagnosis patellofemoral pain, jameel Onset chronic Additional Evaluation Detail She has received multiple bouts of previous therapy for her hips, knees and feet. She is not working currently. currently has custom inserts Subjective Information Pt has increased knee pain Query Text:As Reported By Patient/ with her workout. She peforms Family hip abd/adduction, jameel leg drops, prone opposite arm/leg lifts, planks, bridging, theraband for hip abduction
--- NOTE | 2020-08-12 15:58 | PTOPEVAL ---
Thank you for referring Jud Leung to [facility].? The patient is scheduled to be seen for therapy? 1 x/week for 4 weeks. Please review, sign, date and return this plan of care GUILLERMINA. I agree with and certify that the following plan of care is medically necessary. Referring Physician Date Referring Provider: Dr. Logan Guzmán Diagnosis patellofemoral pain, jameel Onset chronic Additional Evaluation Detail She has received multiple bouts of previous therapy for her hips, knees and feet. 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 She is performing HEP 2x/day. She has been going to the for the swimming classes. She is able to get up easier. 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 She continues to have pain and difficulty with steps. Pain Assessment Self Report Pain Assessment Left Knee(s) Reported Pain Level 2 Pain Description Throbbing,Tightness Pain Frequency Chronic,Continuous Lowest Pain Intensity 2 Greatest Pain Intensity 7 Pain Aggravating Factors Bending,Exercise/Activity, Stair Climbing,Walking,Weight Bearing/Standing,Other Pain Aggravating Factors Other Pain Aggravating Factors kneeling Right Knee(s) Reported Pain Level 3 Pain Description Tender on Palpation,Throbbing Pain Frequency Chronic,Continuous Lowest Pain Intensity 2 Greatest Pain Intensity 8 Pain Aggravating Factors Exercise/Activity,Stair Climbing,Walking,Other Pain Aggravating Factors Other Pain Aggravating Factors crawling Lower Extremity Muscle Strength Testing Hip Strength Bilateral Hip Flexion Strength 4+ Good + Hip Extension Strength 4- Good - Hip Abduction Strength 4- Good - Hip Adduction Strength 4- Good - Knee Strength Bilateral Knee Flexion Strength 5 Normal Knee Extension Strength 5 Normal Ankle Strength Bilateral Ankle Dorsiflexion Strength 5 Normal Ankle Plantarflexion Strength 4- Good - Ankle Strength Comments
--- NOTE | 2020-09-18 15:50 | PTOPEVAL ---
Discharge summary Thank you for referring Jud Leung to [facility].? Jud has received 14 therapy visits to address her chronic knee pain. She has partially achieved her therapy goals at this time. Please see summary below for review of progress of therapy. Will DC skilled PT services at this time. Please review, sign, date and return this discharge summary GUILLERMINA. I agree with and certify that the following plan of care is medically necessary. Referring Physician Date Referring Provider: Dr. Logan Morel Diagnosis patellofemoral pain, jameel Onset chronic Additional Evaluation Detail She has received multiple bouts of previous therapy for her hips, knees and feet. currently has custom inserts Subjective Information She has not been performing Query Text:As Reported By Patient/ her HEP due to work and her GAGNON. Family Her GAGNON have increased in intensity and frequency. She tenses her jaw muscles and neck muscles due to tension and stress. She is not working out at night because she is cooking a home cooked meal. She c/o of her knees being swollen Pain Assessment Self Report Pain Assessment Left Knee(s) Reported Pain Level 4 Right Knee(s) Reported Pain Level 5 PT Clinical Summary Pt referred to therapy due to chronic knee pain. She has attended 14 therapy visits from 07/10/20 to 09/18/20. She reports poor compliance with HEP or general fitness program. She reports increased general pain due to stress, tension and lack of exercise. LEFS: 25% impaired at current update vs 23.75% impaired at last update. Assessment: Jud has receive extensive therapy in multipe different bouts of therapy programs at our facility. She consistently demonstrates poor compliance with her HEP after DC from therapy services. Pt's poor compliance to maintain her level function cannot be address with skilled therapy services. She has been
== END 2020-09-23 15:25 | disposition home or self-care (01) ==
LOC: ANHPT 15:00
PROVIDERS: PCP Family Medicine
DX: M25.561 Pain in right knee (principal); M25.562 Pain in left knee
CPT/HCPCS: 97110; 97140; 97162

== ENCOUNTER 2021-06-22 23:24 | Emergency (ER) | payer OTHER, SELFPAY ==
[2021-06-23 00:40] VITALS: BP 134/96; PULSE 75; RESP 16; TEMP 36; O2SAT 100
--- NOTE | 2021-06-23 01:13 | ED.GENADULT ---
HPI - General Adult General Chief complaint: Allergic Reaction <HAYDER Segura Last Filed: 06/23/21 04:16> Stated complaint: right arm rash x 1 week <HAYDER Segura Last Filed: 06/23/21 04:16> Time Seen by Provider: 06/23/21 00:30 <HAYDER Segura Last Filed: 06/23/21 04:16> Source: patient <HAYDER Segura Last Filed: 06/23/21 04:16> Mode of arrival: ambulatory <HAYDER Segura Last Filed: 06/23/21 04:16> Limitations: no limitations <HAYDER Segura Last Filed: 06/23/21 04:16> History of Present Illness HPI narrative: Patient is a 30-year-old female who presents the ED with report of a rash to her right upper extremity for the past 1.5 weeks. Patient reports the rash began as a small red spot on her upper inner arm. She does note she was fishing outdoors prior to when the rash began and had touched a tree. The rash has since spread around her upper inner arm and now down her forearm. She has seen her primary care doctor for this and has since been on a course of valacyclovir for possible shingles and a Medrol Dosepak. She has also been trying Benadryl cream, hydrocortisone cream, calamine lotion without much relief. She has noted bruising around the rash as well, which she believes is from her scratching. She states the pain and scratching are now keeping her up at night, which prompted her to come to the ED tonight. Patient denies any fever, chills, other allergy symptoms, known allergen exposure, new laundry detergents, lotions, or clothing. <HAYDER Segura Last Filed: 06/23/21 04:16> Related Data Home medications: Home Medications Medication Instructions Recorded Confirmed azithromycin 12/20/19 budesonide-formoterol [Symbicort] INHALATION 12/20/19 codeine-guaifenesin ml 12/20/19 12/20/19 fluticasone propionate INTRANASAL 12/20/19 <Carmela Jules PA-C - Last Filed: 06/23/21 04:16> Allergies/adverse reactions: Allergies Allergy/AdvReac Type Severity Reaction Status Date / Time acetazolamide Allergy Swelling Verified 06/23/21 00:49 of Lip/Tongue/Throat dihydroergotamine Allergy Difficulty Verified 06/23/21 00:49 Breathing lamotrigine [From Lamictal] Allergy Seizure Verified 06/23/21 00:49 levetiracetam [From Keppra] Allergy Seizure Verified 06/23/21 00:49 hydrocodone [From Vicodin] AdvReac Nausea Verified 06/23/21 00:49 <Carmela Jules PA-C - Last Filed: 06/23/21 04:16> Review of Systems Review of Systems: CONSTITUTIONAL: Denies fever, chills. EYES: Denies redness, or discharge. ENT: Denies rhinorrhea, congestion. GASTROINTESTINAL: Denies nausea, vomiting. SKIN: Reports diffuse rash to right upper inner arm, now spreading down forearm with itching, pain, and bruising. NEUROLOGIC: Denies numbness, tingling, or weakness. <Carmela Jules PA-C - Last Filed: 06/23/21 04:16> All systems reviewed & are unremarkable except as noted in HPI and below <Carmela Jules PA-C - Last Filed: 06/23/21 04:16> PMFSH Past Medical History Medical History: Medical History Patient denies significant medical history <Carmela Jules PA-C - Last Filed: 06/23/21 04:16> Surgical History Surgical History: Surgical History (Updated 06/23/21 @ 04:02 by Carmela Jules PA-C) History of endometrial ablation <Carmela Jules PA-C - Last Filed: 06/23/21 04:16> Social History Social History: Social History Smoking status: Never smoker Gender identity (if verbalized by the patient): Female <Carmela Jules PA-C - Last Filed: 06/23/21 04:16> Exam Narrative: GENERAL: Well appearing, obese, non-toxic, in no acute distress. HEAD: Normocephalic, atraumatic. NECK: Supple. No adenopathy, no masses. RESPIRATORY: Airway patent, respirations nonlabored. Clear to auscultation bilater
== END 2021-06-23 01:45 | disposition home or self-care (01) ==
PROVIDERS: Emergency Provider Emergency Medicine; PCP Family Medicine
DX: L23.9 Allergic contact dermatitis, unspecified cause (principal)
CPT/HCPCS: 99283

== ENCOUNTER 2023-09-30 23:09 | Emergency (ER) | payer OTHER, SELFPAY ==
--- NOTE | ~2023-09-30 | CT_ITS ---
EXAMINATION: CT abdomen pelvis w con DATE: 10/01/2023 02:02 INDICATION: Epigastric pain radiating to the back TECHNIQUE: Computed tomography (CT) of the abdomen and pelvis was performed with 100 mL Omnipaque-350 intravenous contrast. Automated exposure control and iterative reconstruction technique were employe d. The dose-length product was 1544.67 mGy-cm. COMPARISON: None FINDINGS: Lung bases are clear. Heart size is normal. No pericardial or pleural effusion. Small sliding-type hi atal hernia. Liver, gallbladder, spleen, pancreas and bilateral adrenal glands are normal. 3 mm nonob structing stone at a lower pole calyx of the left kidney mild narrows and 2 mm stone at a lower pole calyx of the left kidney. 7 mm right renal cyst. There is stranding centered about the gastric antrum where there is some mild wall thickening suspicious for or peptic ulcer disease versus focal gastrit is. Bowels including the appendix are normal. 1 cm enhancing subserosal fibroid along the anterior fu ndus of the anteverted uterus. Bladder is normal. Couple 1.5 cm and 2 cm right adnexal cyst. Left ova ry is unremarkable. No free intraperitoneal gas or fluid. No pathologically enlarged abdominal or pel negro lymphadenopathy. Mild lumbar and lower thoracic spondylosis. IMPRESSION: 1. Gastric antral wall thickening with surrounding inflammatory stranding suspicious for peptic ulcer disease versus focal gastritis. Reviewed, dictated and finalized at location A. IMPRESSION: 1. Gastric antral wall thickening with surrounding inflammatory stranding suspi cious for peptic ulcer disease versus focal gastritis.
[2023-09-30 23:21] VITALS: BP 138/65; PULSE 67; RESP 18; TEMP 36.6; O2SAT 99
[2023-10-01 00:06] LABS: Basophils Percent Auto 0.1 % (0.2-1.2); Hematocrit 39.5 % (37.0-47.0); Hemoglobin 13.2 g/dL (12.0-15.0); Immature Granulocyte Absolute 0.07 K/mm3 (0.00-0.031); Immature Granulocyte Percent A 0.5 % (0-0.5); Lymphocytes Absolute Auto 2.84 K/mm3 (0.9-3.2); Lymphocytes Percent Auto 19.6 % (18.3-44.2); Mean Corpuscular HGB Conc 33.4 g/dl (32-36); Mean Corpuscular Hemoglobin 30.4 pg (26-34); Mean Platelet Volume 10.6 fl (7.4-10.4); Monocytes Percent Auto 6.9 % (2.6-8.5); Neutrophils Absolute Auto 10.6 K/mm3 (1.3-6.7); Neutrophils Percent Auto 72.9 % (45.5-73.1); Platelet Count Result 333 k/mm3 (150-375); Red Blood Count 4.34 M/mm3 (4.2-5.4); Red Cell Distribution Width 14.9 % (11.5-14.5); White Blood Count 14.5 K/mm3 (4.5-10.0)
[2023-10-01 00:15] LABS: Alanine Aminotransferase 27 U/L (6-35); Albumin Level 4.1 g/dL (3.5-5.1); Alkaline Phosphatase 68 U/L (38-126); Anion Gap 10 mmol/L (4-12); Aspartate Amino Transferase 26 U/L (14-36); Bilirubin,Total 0.3 mg/dL (0.2-1.3); Blood Urea Nitrogen 20 mg/dL (7-17); Calcium 9.1 mg/dL (8.4-10.2); Carbon Dioxide 24 mmol/L (22-30); Chloride 105 mmol/L (98-107); Estimated CRCL calculation 132 ml/min; Estimated Glomerular Filt Rate > 60; Glucose 108 mg/dL (65-110); Lipase 181 U/L (23-300); Sodium 139 mmol/L (137-145)
[2023-10-01 00:53] LABS: Add Urine Microscopic? YES; Appearance Urine Clear (Clear); Bacteria Urine Rare /hpf; Bilirubin Urine Negative (Negative); Blood Urine Negative (Negative); Color Urine Yellow (Yellow); Glucose Urine UA Negative (Negative); Ketones Urine Negative (Negative); Leukocyte Esterase Ur Trace LEU/UL (Negative); Need Manual Microscopic Reviewed; Nitrate Urine Negative (Negative); Non Pathogenic Casts 0-2; Protein Urine Negative (Negative); Specific Grav Ur 1.027 (1.001-1.035); Squamous Epithelial Cell Urine Occasional /hpf (Few); Urobilinogen Urine 0.2 mg/dL (<2.0); WBC Urine 0-5 /hpf (0-3); pH Urine 6.5 (5.0-9.0)
[2023-10-01 01:46] LABS: BEDSIDEPREGUCG Negative
[2023-10-01] MEDS: MAG HYDROX/AL HYDROX/SIMETH 30 ML UDC PO (02:07)
[2023-10-01] MEDS: KETOROLAC 15 MG/ML VIAL (*BKC) IV PUSH (02:08)
[2023-10-01] MEDS: FAMOTIDINE 20 MG/2 ML VIAL IV PUSH (02:09)
[2023-10-01 02:11] VITALS: BP 130/72; PULSE 54; RESP 15; O2SAT 100
--- NOTE | 2023-10-01 04:03 | ED.GENADULT ---
HPI - General Adult General Chief complaint: Abdominal Pain Stated complaint: abd pain x 3 days with nausea Time Seen by Provider: 10/01/23 01:21 History of Present Illness HPI narrative: This is a 33-year-old female presenting ED with a chief complaint of abdominal pain. Pain is located left upper quadrant and wraps around to her back. It is a burning aching pain in she says it feels like she is hungry. it has no relation to food. She has never had pain like this before there are no exacerbating alleviating factors. It is associated with nausea but no vomiting. No fevers or chills. Patient has history of GERD but stopped taking her Pepcid and omeprazole several months ago when she went gluten free. Related Data Home Medications Medication Instructions Recorded Confirmed azithromycin 250 mg tablet 12/20/19 budesonide-formoterol HFA 80 inhalation 12/20/19 mcg-4.5 mcg/actuation aerosol inhaler (Symbicort) codeine 10 mg-guaifenesin 100 mg/5 ml 12/20/19 12/20/19 mL oral liquid fluticasone propionate 50 intranasal 12/20/19 mcg/actuation nasal spray,suspension Allergies Allergy/AdvReac Type Severity Reaction Status Date / Time acetazolamide Allergy Swelling Verified 06/23/21 00:49 of Lip/Tongue/Throat dihydroergotamine Allergy Difficulty Verified 06/23/21 00:49 Breathing lamotrigine [From Lamictal] Allergy Seizure Verified 06/23/21 00:49 levetiracetam [From Keppra] Allergy Seizure Verified 06/23/21 00:49 hydrocodone [From Vicodin] AdvReac Nausea Verified 06/23/21 00:49 [facility] Past Medical History Medical History Patient denies significant medical history Surgical History Surgical History History of endometrial ablation Social History Social History Smoking status: Never smoker Gender identity (if verbalized by the patient): Female Exam Narrative: APPEARANCE: No apparent distress. Head: atraumatic. EYES: EOMI, NOSE: Atraumatic NECK: Trachea midline RESPIRATORY: No increased rate of breathing clear to auscultation CARDIOVASCULAR: RRR, ABDOMINAL: Tenderness to palpation in the epigastric area. No guarding or rebound. No CVA tenderness MUSCULOSKELETAl: No obvious deformities NEURO: Alert. Moving 4/4 extremities SKIN:: Warm, dry. Normal color PSYCHIATRIC: Normal affect Course Vital Signs Vital signs: Vital Signs Temperature 97.8 F 09/30/23 23:21 Pulse Rate 67 09/30/23 23:21 Respiratory Rate 18 09/30/23 23:21 Blood Pressure 138/65 09/30/23 23:21 Pulse Oximetry 99 09/30/23 23:21 Oxygen Delivery Room Air 09/30/23 23:21 Temperature 97.8 F 09/30/23 23:21 Pulse Rate 54 L 10/01/23 02:11 Respiratory Rate 15 10/01/23 02:11 Blood Pressure 130/72 10/01/23 02:11 Pulse Oximetry 100 10/01/23 02:11 Oxygen Delivery Room Air 09/30/23 23:21 Medical Decision Making [facility] Narrative Medical decision making narrative: -Course: 33-year-old female presenting with left upper quadrant abdominal pain. Patient given a GI cocktail with improvement pain. She specifically said the Maalox helped. CT showed inflammation around stomach which could be gastritis or possibly an underlying ulcer. Otherwise the patient's vital signs are stable, her abdominal exam is benign her laboratory studies were unremarkable. Patient will be discharged with medication for peptic ulcer disease instructed to follow-up with her GI doctor. Patient discharged with return precautions. -DDX includes but is not limited to: Gastritis, peptic ulcer disease, splenic infarct, kidney infection, pneumonia -Independent interpretation of studies: white count 14. Rest of studies within normal limits. -Interventions: Maalox, Pepcid, Toradol -Shared decision making / Disposition: discharge -RX Carafat
[2023-10-01 04:33] VITALS: BP 118/74; PULSE 56; RESP 15; TEMP 36.7; O2SAT 100
== END 2023-10-01 04:33 | disposition home or self-care (01) ==
PROVIDERS: Emergency Provider Emergency Medicine; PCP Family Medicine
DX: K29.70 Gastritis, unspecified, without bleeding (principal)
CPT/HCPCS: 36415; 74177; 80053; 81001; 81025; 83690; 85025; 96374; 96375; 99284; A9270; J1885; Q9967

== ENCOUNTER 2024-02-14 19:24 | Emergency (ER) | payer OTHER, SELFPAY ==
--- NOTE | ~2024-02-14 | XR_ITS ---
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 RESULT: Lines, tubes, and devices: None. Lungs and pleura: Clear. Cardiomediastinal silhouette: Stable. Other: No acute osseous or upper abdominal finding. IMPRESSION: No acute cardiopulmonary process. Reviewed, dictated and finalized at location K. ENTION PLANNER
--- NOTE | 2024-02-14 19:26 | ECG_ITS ---
Test Date: 2024-02-14 19:30:47 Measurements Intervals [place] Rate: 76 P: 11 DC: 140 QRS: 5 QRSD: 109 T: 30 QT: 390 QTc: 439 Interpretive Statements SINUS RHYTHM POSSIBLE LEFT VENTRICULAR HYPERTROPHY [VOLTAGE CRITERIA PLUS LAE OR QRS WIDENING] No previous ECG available for comparison Electronically Signed On 02-19-2024 10:23:39 STRAIGHTENING MACHINE FEEDER by Krish Gómez M.D.
[2024-02-14 19:41] VITALS: BP 139/79; PULSE 76; RESP 18; TEMP 36.3; O2SAT 100
[2024-02-14 19:45] LABS: Basophils Percent Auto 0.3 % (0.2-1.2); Eosinophils Absolute Auto 0.2 K/mm3 (0-0.3); Eosinophils Percent Auto 1.4 % (0-4.4); Hematocrit 39.7 % (37.0-47.0); Hemoglobin 13.2 g/dL (12.0-15.0); Immature Granulocyte Absolute 0.04 K/mm3 (0.00-0.031); Immature Granulocyte Percent A 0.4 % (0-0.5); Lymphocytes Absolute Auto 3.19 K/mm3 (0.9-3.2); Lymphocytes Percent Auto 29.3 % (18.3-44.2); Mean Corpuscular HGB Conc 33.2 g/dl (32-36); Mean Corpuscular Hemoglobin 29.4 pg (26-34); Mean Corpuscular Volume 88.4 fl (80-100); Mean Platelet Volume 9.9 fl (7.4-10.4); Monocytes Absolute Auto 0.7 K/mm3 (0.1-0.6); Monocytes Percent Auto 6.3 % (2.6-8.5); Neutrophils Absolute Auto 6.8 K/mm3 (1.3-6.7); Neutrophils Percent Auto 62.3 % (45.5-73.1); Platelet Count Result 327 k/mm3 (150-375); Red Blood Count 4.49 M/mm3 (4.2-5.4); Red Cell Distribution Width 14.3 % (11.5-14.5); White Blood Count 10.9 K/mm3 (4.5-10.0)
[2024-02-14 19:57] LABS: INR 0.9; Partial Thromboplastin Time 32.8 Seconds (22.3-36.8); Prothrombin Time 12.9 Seconds (11.1-14.7)
[2024-02-14 20:11] LABS: Alanine Aminotransferase 22 U/L (6-35); Albumin Level 4.5 g/dL (3.5-5.1); Alkaline Phosphatase 89 U/L (38-126); Anion Gap 6 mmol/L (4-12); Aspartate Amino Transferase 24 U/L (14-36); Bilirubin,Total 0.3 mg/dL (0.2-1.3); Blood Urea Nitrogen 15 mg/dL (7-17); Calcium 9.6 mg/dL (8.4-10.2); Carbon Dioxide 26 mmol/L (22-30); Chloride 107 mmol/L (98-107); Estimated Glomerular Filt Rate 58; Glucose 94 mg/dL (65-110); Lipase 82 U/L (23-300); Potassium 4.4 mmol/L (3.4-5.0); Sodium 139 mmol/L (137-145)
[2024-02-14 20:22] LABS: Troponin I < 0.012 ng/mL (0.000-0.034)
[2024-02-14 21:02] LABS: BEDSIDEPREGUCG Negative (Negative)
[2024-02-14 21:20] LABS: Add Urine Microscopic? YES; Appearance Urine Clear (Clear); Bacteria Urine 1+ /hpf; Bilirubin Urine Negative (Negative); Blood Urine Negative (Negative); Color Urine Yellow (Yellow); Glucose Urine UA Negative (Negative); Ketones Urine Negative (Negative); Leukocyte Esterase Ur 1+ LEU/UL (Negative); Need Manual Microscopic Reviewed; Nitrate Urine Negative (Negative); Non Pathogenic Casts 0-2; Protein Urine Negative (Negative); Specific Grav Ur 1.017 (1.001-1.035); Squamous Epithelial Cell Urine Occasional /hpf (Few); Urobilinogen Urine 0.2 mg/dL (<2.0); WBC Urine 0-5 /hpf (0-3)
[2024-02-14 21:49] VITALS: PULSE 79
[2024-02-14 21:50] VITALS: O2SAT 100
[2024-02-14 21:52] VITALS: BP 144/87; PULSE 80; RESP 17; O2SAT 100
[2024-02-14 23:13] LABS: D Dimer 0.35 ug/mL (<0.48)
[2024-02-14] MEDS: SODIUM CHLORIDE 0.9% IV 2,000 ML 999 ML IV CONT (23:18)
[2024-02-14] MEDS: diazePAM INJ (*CRX) 10 MG/2 ML SYRINGE 5 MG IV PUSH (23:19)
[2024-02-14] MEDS: ACETAMINOPHEN 500 MG TABLET 1000 MG PO (23:19)
[2024-02-14 23:28] LABS: NT Pro B Type Natriuretic Pept 37 pg/mL (19.9-100)
[2024-02-14 23:31] LABS: Troponin I < 0.012 ng/mL (0.000-0.034)
--- NOTE | 2024-02-15 00:08 | PC.NURSE ---
EDP made aware Toradol and Aspirin interactions. pt not given aspirin. EDP ok to give Toradol
[2024-02-15 00:33] VITALS: BP 140/81; PULSE 76; RESP 22; TEMP 36.6; O2SAT 100
[2024-02-15] MEDS: KETOROLAC 15 MG/ML VIAL (*BKC) IV PUSH (00:34)
--- NOTE | 2024-02-15 00:38 | ED_ITS ---
HPI - General Adult General Chief complaint: Chest Pain Stated complaint: chest pain Time Seen by Provider: 02/14/24 22:14 History of Present Illness HPI narrative: this is a 33-year-old female presenting with chest pain that started occurred while she was doing laundry. It is a sharp pain on the right side of her chest that radiates into her back. It is moderate in intensity and constant. She has never had pain like this before and is worse with deep breaths and improved with laying down. Patient denies fevers chills shortness of breath abdominal pain or lower extremity edema. She did have a viral illness last week. Patient also said her fingers felt tingly but she think that was due to anxiety. Related Data Home Medications ?Medication ?Instructions ?Recorded ?Confirmed ?Last Taken ?Type azithromycin 250 mg tablet 12/20/19 Unknown History budesonide-formoterol HFA 80 inhalation 12/20/19 Unknown History mcg-4.5 mcg/actuation aerosol inhaler (Symbicort) codeine 10 mg-guaifenesin 100 mg/5 ml 12/20/19 12/20/19 Unknown History mL oral liquid fluticasone propionate 50 intranasal 12/20/19 Unknown History mcg/actuation nasal spray,suspension Allergies Allergy/AdvReac Type Severity Reaction Status Date / Time acetazolamide Allergy Swelling Verified 02/14/24 22:40 of Lip/Tongue/Throat dihydroergotamine Allergy Difficulty Verified 02/14/24 22:40 Breathing lamotrigine (From Lamictal) Allergy Seizure Verified 02/14/24 22:40 levetiracetam (From Keppra) Allergy Seizure Verified 02/14/24 22:40 gluten AdvReac Mild Vomiting Verified 02/14/24 22:40 hydrocodone (From Vicodin) AdvReac Nausea Verified 02/14/24 22:40 PMFSH Past Medical History Medical History Patient denies significant medical history Surgical History Surgical History History of endometrial ablation Social History Social History Smoking status: Never smoker Gender identity (if verbalized by the patient): Female Exam 2 Narrative: APPEARANCE: No apparent distress. Head: atraumatic. EYES: EOMI, NOSE: Atraumatic NECK: Trachea midline RESPIRATORY: No increased rate of breathing clear to auscultation CARDIOVASCULAR: RRR, no peripheral edema ABDOMINAL: Non-distended soft nontender MUSCULOSKELETAl: No obvious deformities NEURO: Alert. Moving 4/4 extremities SKIN:: Warm, dry. Normal color PSYCHIATRIC: Normal affect Course Vital Signs Vital signs: Vital Signs Temperature 97.3 F L 02/14/24 19:41 Pulse Rate 76 02/14/24 19:41 Respiratory Rate 18 02/14/24 19:41 Blood Pressure 139/79 02/14/24 19:41 Pulse Oximetry 100 02/14/24 19:41 Oxygen Delivery Room Air 02/14/24 19:41 Temperature 97.8 F 02/15/24 00:33 Pulse Rate 76 02/15/24 00:33 Respiratory Rate 22 H 02/15/24 00:33 Blood Pressure 140/81 02/15/24 00:33 Pulse Oximetry 100 02/15/24 00:33 Oxygen Delivery Room Air 02/14/24 21:50 Medical Decision Making [facility] Narrative Medical decision making narrative: -Course: 33 female presenting with right-sided pleuritic pain. Chest x-ray, EKG troponins BNP and D-dimer were negative. Patient was given Toradol and Valium with improvement in her symptoms. Patient will be discharged follow-up with her primary care physician. Suspect pleurisy from recent viral illness but diagnosis still unclear. Patient given strict return precautions for fevers worsening chest pain or shortness of breath. -DDX includes but is not limited to: PE pneumonia ACS pleurisy pericarditis -Co-morbidities complicating care:anxiety, -Independent interpretation of studies: labs and imaging reviewed Independent EKG interpretation: Rhythm [sinus], Rate [76], [place] -[normal], [place] -[normal], QRS [narrow], QTC [normal], T waves -[negative for concerning inversions], ST Segments - [Negative for concerning elevations] Final interpretations: [Normal Sinus Rhythm] -Shared decision making / Disposition: discharge Vital Signs Vital Signs: Vital Signs Temperature 97.3 F L 02/14/24 19:41 Pulse Rate 76 02/14/24 19:41 Respiratory Rate 18 02/14/24 19:41 Blood Pressure 139/79 02/14/24 19:41 Pulse Oximetry 100 02/14/24 19:41 Oxygen Delivery Room Air 02/14/24 19:41 Temperature 97.8 F 02/15/24 00:33 Pulse Rate 76 02/15/24 00:33 Respiratory Rate 22 H 02/15/24 00:33 Blood Pressure 140/81 02/15/24 00:33 Pulse Oximetry 100 02/15/24 00:33 Oxygen Delivery Room Air 02/14/24 21:50 Lab Data 02/14/24 19:38 02/14/24 19:38 Labs: Lab Results 02/14/24 02/14/24 02/14/24 Range/Units 19:38 20:57 20:58 WBC 10.9 H (4.5-10.0) K/mm3 RBC 4.49 (4.2-5.4) M/mm3 Hgb 13.2 (12.0-15.0) g/dL Hct 39.7 (37.0-47.0) % MCV 88.4 (80-100) fl MCH 29.4 (26-34) pg MCHC 33.2 (32-36) g/dl RDW 14.3 (11.5-14.5) % Plt Count 327 (150-375) k/mm3 MPV 9.9 (7.4-10.4) fl Immature Gran % (Auto) 0.4 (0-0.5) % Neut % (Auto) 62.3 (45.5-73.1) % Lymph % (Auto) 29.3 (18.3-44.2) % Pershing % (Auto) 6.3 (2.6-8.5) % Eos % (Auto) 1.4 (0-4.4) % Baso % (Auto) 0.3 (0.2-1.2) % Lymph # (Auto) 3.19 (0.9-3.2) K/mm3 Pershing # (Auto) 0.7 H (0.1-0.6) K/mm3 Eos # (Auto) 0.2 (0-0.3) K/mm3 Baso # (Auto) 0.0 (0.0-0.1) K/mm3 Abs Immat Gran (auto) 0.04 H (0.00-0.031) K/mm3 Absolute Neuts (auto) 6.8 H (1.3-6.7) K/mm3 Absolute Nucleated RBC 0.000 (0.0-0.012) K/mm3 Nucleated RBC % 0.0 (0.0-0.2) % PT 12.9 (11.1-14.7) Seconds INR 0.9 APTT 32.8 (22.3-36.8) Seconds D-Dimer 0.35 (<0.48) ug/mL Sodium 139 (137-145) mmol/L Potassium 4.4 (3.4-5.0) mmol/L Chloride 107 (98-107) mmol/L Carbon Dioxide 26 (22-30) mmol/L Anion Gap 6 (4-12) mmol/L BUN 15 D (7-17) mg/dL Creatinine 1.10 H (0.7-1.0) mg/dL Estim Creat Clear Calc Not Reportable Estimated GFR 58 L (59 - ) Glucose 94 (65-110) mg/dL Calcium 9.6 (8.4-10.2) mg/dL Total Bilirubin 0.3 (0.2-1.3) mg/dL AST 24 (14-36) U/L ALT 22 (6-35) U/L Alkaline Phosphatase 89 (38-126) U/L Troponin I < 0.012 (0.000-0.034) ng/mL NT-Pro-B Natriuret Pep (19.9-100) pg/mL Total Protein 8.0 (6.3-8.2) g/dL Albumin 4.5 (3.5-5.1) g/dL Lipase 82 (23-300) U/L Urine Color Yellow (Yellow) Urine Appearance Clear (Clear) Urine pH 6.0 (5.0-9.0) Ur Specific [place] 1.017 (1.001-1.035) Urine Protein Negative (Negative) mg/dL Urine Glucose (UA) Negative (Negative) mg/dL Urine Ketones Negative (Negative) mg/dL Ur Blood (Man) Negative (Negative) Urine Nitrate Negative (Negative) Urine Bilirubin Negative (Negative) Urine Urobilinogen 0.2 (<2.0) mg/dL Add Ur Microanalysis Reviewed Leukocyte Esterase Rfl 1+ H (Negative) BRIDGETTE/UL Urine RBC 6-10 H (0-2) /hpf Urine WBC 0-5 (0-3) /hpf Ur Squamous Epith Cells Occasional (Few) /hpf Urine Bacteria 1+ H /hpf Urine Casts 0-2 POC Urine HCG, Qual Negative (Negative) 02/14/24 Range/Units 23:01 WBC (4.5-10.0) K/mm3 RBC (4.2-5.4) M/mm3 Hgb (12.0-15.0) g/dL Hct (37.0-47.0) % MCV (80-100) fl MCH (26-34) pg MCHC (32-36) g/dl RDW (11.5-14.5) % Plt Count (150-375) k/mm3 MPV (7.4-10.4) fl Immature Gran % (Auto) (0-0.5) % Neut % (Auto) (45.5-73.1) % Lymph % (Auto) (18.3-44.2) % Pershing % (Auto) (2.6-8.5) % Eos % (Auto) (0-4.4) % Baso % (Auto) (0.2-1.2) % Lymph # (Auto) (0.9-3.2) K/mm3 [place] # (Auto) (0.1-0.6) K/mm3 Eos # (Auto) (0-0.3) K/mm3 Baso # (Auto) (0.0-0.1) K/mm3 Abs Immat Gran (auto) (0.00-0.031) K/mm3 Absolute Neuts (auto) (1.3-6.7) K/mm3 Absolute Nucleated RBC (0.0-0.012) K/mm3 Nucleated RBC % (0.0-0.2) % PT (11.1-14.7) Seconds INR APTT (22.3-36.8) Seconds D-Dimer (<0.48) ug/mL Sodium (137-145) mmol/L Potassium (3.4-5.0) mmol/L Chloride (98-107) mmol/L Carbon Dioxide (22-30) mmol/L Anion Gap (4-12) mmol/L BUN (7-17) mg/dL Creatinine (0.7-1.0) mg/dL Estim Creat Clear Calc Estimated GFR (59 - ) Glucose (65-110) mg/dL Calcium (8.4-10.2) mg/dL Total Bilirubin (0.2-1.3) mg/dL AST (14-36) U/L ALT (6-35) U/L Alkaline Phosphatase (38-126) U/L Troponin I < 0.012 (0.000-0.034) ng/mL NT-Pro-B Natriuret Pep 37 (19.9-100) pg/mL Total Protein (6.3-8.2) g/dL Albumin (3.5-5.1) g/dL Lipase (23-300) U/L Urine Color (Yellow) Urine Appearance (Clear) Urine pH (5.0-9.0) Ur Specific [place] (1.001-1.035) Urine Protein (Negative) mg/dL Urine Glucose (UA) (Negative) mg/dL Urine Ketones (Negative) mg/dL Ur Blood (Man) (Negative) Urine Nitrate (Negative) Urine Bilirubin (Negative) Urine Urobilinogen (<2.0) mg/dL Add Ur Microanalysis Leukocyte Esterase Rfl (Negative) BRIDGETTE/UL Urine RBC (0-2) /hpf Urine WBC (0-3) /hpf Ur Squamous Epith Cells (Few) /hpf Urine Bacteria /hpf Urine Casts POC Urine HCG, Qual (Negative) Discharge Plan Discharge Clinical Impression: Atypical chest pain, Pleurisy Patient Disposition: Home, Self-Care Condition: Stable Instructions: Antibiotic Form, Chest Pain (ED), Pleurisy (ED) Additional Instructions: He was seen emergency department for chest pain. thankfully we did not find anything life-threatening on your workup. Please try Motrin and Tylenol for chest pain and follow-up with your primary care physician. Please return to the ED if you develop fevers, worsening chest pain or difficulty breathing, or productive cough. Please take motrin and tylenol for pain. Patient Language: Rw[place] Prescriptions: No Action azithromycin 250 mg tablet codeine-guaifenesin 10-100 mg/5 mL liquid fluticasone propionate 50 mcg/actuation spray,suspension INTRANASAL budesonide-formoterol [Symbicort] 80-4.5 mcg/actuation HFA aerosol inhaler INHALATION famotidine [Pepcid] 20 mg tablet 20 mg PO BID Qty: 10 0RF promethazine 25 mg tablet 25 mg PO QID PRN (Reason: nausea and vomiting) Qty: 7 0RF benzonatate [Tessalon Perles] 100 mg capsule 100 mg PO TID PRN (Reason: cough) Qty: 14 0RF hydrocortisone 1 % cream 1 applic topical TID PRN (Reason: itching) Qty: 28.4 0RF triamcinolone acetonide 0.025 % cream 1 applic topical BID Qty: 15 0RF sucralfate [Carafate] 1 gram tablet 1 g PO TID Qty: 90 0RF famotidine [Pepcid] 20 mg tablet 20 mg PO BID 42 Days Qty: 84 0RF Follow-up/Referrals: Nancy,MD Daily [Primary Care Provider] -
--- NOTE | 2024-02-15 01:24 | ECG_ITS ---
Test Date: 2024-02-15 01:24:26 Measurements Intervals [place] Rate: 72 P: 0 VA: 155 QRS: -2 QRSD: 98 T: 14 QT: 409 QTc: 450 Interpretive Statements SINUS RHYTHM VOLTAGE CRITERIA FOR LVH [MEETS CRITERIA IN ONE OF: R(aVL), S(V1), R(V5), R(V5/V6)+S(V1)] Compared to ECG 02/14/2024 19:30:47 No significant changes Electronically Signed On 02-19-2024 11:16:57 ELEVATOR REPAIRER APPRENTICE by Krish Gómez M.D.
[2024-02-15 01:31] VITALS: BP 125/68; PULSE 79; RESP 20; O2SAT 99
[2024-02-15 01:45] VITALS: BP 125/68; PULSE 79; RESP 20; O2SAT 99
--- OUTSIDE RECORDS SUMMARY | 2024-02-21 19:31 | XMS_ITS ---
Author Organization [facility] Address [address] [place] [address] Care Team Providers Care Site Worker Name Role Phone Nancy DIAZ, [facility] Primary Care Provider Un available Dr. Jakub Burger Unavailable [phone] Jenna Mares Unavailable Unavailable REASON FOR VISIT Chronic care management Medications Medication SIG (Take, Route, Frequency, Duration) Notes Start Date End Date Status Vitamin D3 1.25 MG (20279 UT) 1 capsule Orally Once per week for 56 days 01/01/2024 Active Encounters Encounter Location Date Provider Diagnosis [address] [address] 01/01/2024 Jakub Burger Vitamin D deficien cy, unspecified E55.9 Assessments Encounter Date Diagnosis (ICD Code) Assessment Notes Treatment Notes Treatment Clinical Notes Section Notes 01/01/2024 Vitamin D deficiency, unspecified (ICD-10 - E55.9) Plan Of Treatment Medication Medication Name Sig Start Date Stop Date Notes Vitamin D3 250 MCG (47776 UT) 1 capsule Orally Once a week 12/25/2023 Vitamin D3 1.25 MG (69846 UT) 1 capsule Orally Once per week for 56 days 01/01/2024 Next Appt Details Provider Name:Yoko hernández, 03/07/2024 05:05:00 PM, [email or web address], [address], [place], [address], Progress Notes * Sam CROCKER:1990 (33 yo F)Acc No.[id number]:01/01/2024 Patient:Jud CASE :1990???Age:33 Y???Sex:Female Address:[address], [place], [address] * Refills? Stop Vitamin D3 Capsule, 250 MCG (09932 UT), Orally, 1 capsule, Once a week Start Vitamin D3 Capsule, 1.25 MG (12133 UT), Orally, 8, 1 capsule, Once per week, 56 days, Refills=0 * true * Date:? 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
--- OUTSIDE RECORDS SUMMARY | 2024-02-21 19:32 | XMS_ITS | Encounter Summary ---
Author Organization [facility] Healthcare Address [address] [place] [address] Care Team Providers Care Solution Engineer Name Role Phone Daily Cruz MD Primary Care Provider [phone] Savannah Holt Unavailable [phone] Ange Chavez MD Unavailable [phone] Reason for Referral * MRI/CAT/PET Scan (Routine) - Closed Specialty Diagnoses / Procedures Referred By Contac t Referred To Contact Radiology Diagnoses Liver mass Procedures MRI Abdomen Liver W WO Contrast Alecia Shaver NP [address] [facility] [address] [place] [address] Phone: tel: [address] [phone] Referral ID Status Reason Start Date Expiration Date Visits Re quested Visits Authorized [id number] Closed 02/28/2023 03/29/2024 1 1 AND EFFECTS DESIGNER Reason for Visit * MRI/CAT/PET Scan (Routine) - Closed Specialty Diagnoses / Procedures Referred By Contac t Referred To Contact Radiology Diagnoses Liver mass Procedures MRI Abdomen Liver W WO Contrast Alecia Shaver NP [address] [facility] [address] [place] [address] Phone: tel: [address] [phone] Referral ID Status Reason Start Date Expiration Date Visits Re quested Visits Authorized [id number] Closed 02/28/2023 03/29/2024 1 1 Encounter Details Date Type Department Care Team (Latest Contact Info) Description 02/05/2024 7:12 AM PROP AND EFFECTS DESIGNER - 02/05/2024 11:59 PM PROP AND EFFECTS DESIGNER Hospital Encounter [facility] [address] [place] [address] Liver mass Discharge Disposition: Discharge to home or self care Social History Tobacco Use Types Packs/Day Years Used Date Smoking Tobacco: Never Passive Smoke Exposure: Past Smokeless Tobacco: Never Alcohol Use Standard Drinks/Week Comments Not Currently 0 (1 standard drink = 0.6 oz pure alcohol) Maybe a drink every few months AUDIT-C Answer Date Recorded Q1: How often do you have a drink containing alc ohol? Monthly or less 10/19/2023 Q2: How many drinks containi ng alcohol do you have on a typical day when you are drinking? 1 or 2 10/19/2023 Q3: How often do you have si x or more drinks on one occasion? Never 10/19/2023 PHQ-2 Answer Date Recorded PHQ-2 Total Score (If total score is 3 or more points, staff should administer the PHQ-9) 2 12/29/2023 Personal Safety Answer Date Recorded Have you ever been in or are you currently in a harmful physical or emotional relationship or is someone making you feel afraid or unsafe? Denies 02/17/2023 Comments No Sex and Gender Information Value Date Recorded Sex Assigned at Not on file Legal Sex Female 3:37 PM PROP AND EFFECTS DESIGNER Gender Identity Female 03/02/2020 4:27 PM PROP AND EFFECTS DESIGNER Sexual Orientation Straight 07/10/2019 11 :13 PM CDT documented as of this encounter Medications at Time of Discharge albuterol 2.5 mg /3 mL (0.083 %) nebulizer solutionIndicati ons:Acute Asthma Attack Take 3 mL (2.5 mg total) by nebulization every 4 (four) hours as needed for wheezing 180 mL 02/17/2023 albuterol HFA (PROVENTIL HFA,VENTOLIN HFA,PROAIR HFA) 90 mcg/actuation inhalerIndicatio ns:Acute Asthma Attack Inhale 2 puffs every 4 (four) hours as needed for wheezing 6.7 g 02/17/2023 cholecalciferol (VITAMIN D-3) 50,000 unit capsule 01/01/2024 dexAMETHasone (DECADRON) 1 mg tablet take 1 mg at 11pm and go to the lab the next morning at 8am to have your blood drawn. 1 tablet 02/02/2024 Nurtec ODT tablet,disintegr atingIndications :New daily persistent headache Take 1 tablet (75 mg total) by mouth every other day 06/08/2023 onabotulinumtoxi nA, cosmetic, (Botox Cosmetic) 50 unit recon soln as directed Intramuscular semaglutide (Wegovy) 0.5 mg/0.5 mL auto-injector Inject 0.5 mL (0.5 mg total) under the skin every 7 days 2 mL 01/24/2024 zavegepant (Zavzpret) 10 mg/actuation spray,non-aeroso lIndications:Gerhard ai Administer 1 spray into affected nostril(s) daily as needed (migraine) 6 each 2 07/14/2023 documented as of this encounter Discharge Disposition Disposition Code Departure Means Destination Discharge to home or self care documented in this encounter Plan of Treatment Not on file documented as of this encounter Goals Goal Patient Goal Type Associated Problems Recent Progress Patient-Stated? Author CCM Chronic Pain Care Plan Chronic Care Management Sangeetha Monk, RN Note: Problem: Chronic Pain Goals: 1. Minimize further functional decline 2. Maximize quality of life 3. Control pain Strategies: - Activity/exercise program recommendation - Conservative stepwise pain medicine strategy with multi-disciplinary approach - Recommend healthy lifestyle strategies and compensatory methods as needed documented as of this encounter Procedures Procedure Name Priority Date/Time Associated Diagnosis Comments MRI ABDOMEN LIVER W WO CONTRAST Schedule Routine, Read Routine (OP Routine) 02/05/2024 4:54 PM PROP AND EFFECTS DESIGNER Liver mass documented in this encounter Results * MRI Abdomen Liver W WO Contrast (02/05/2024 4:54 PM PROP AND EFFECTS DESIGNER) Anatomical Region Laterality Modality Body N/A Magnetic Resonan ce 02/05/2024 5:34 PM PROP AND EFFECTS DESIGNER Impressions 02/06/2024 8:07 AM PROP AND EFFECTS DESIGNER T2 hyperintense enhancing lesion in hepatic segment 4B most characteristic of a flash filling hemangioma Dictated by: Bobby Yuan MD, PHD The radiology attending physician has personally reviewed this study, and had reviewed and/or edited this written report and agrees with it. Electronically signed by: Noemí Olmedo 02/06/2024 8:07 AM PROP AND EFFECTS DESIGNER EXAMINATION: MAGNETIC RESONANCE IMAGING OF THE ABDOMEN WITH AND WITHOUT CONTRAST HISTORY: Liver lesion characterization TECHNIQUE: Magnetic resonance imaging of the abdomen was performed prior to and following the uneventful administration of intravenous Gadolinium contrast. Protocol: Liver Dual Contrast Contrast: Gadoterate 19 mL; Eovist 10 mL COMPARISON: CT abdomen pelvis 02/01/2023 FINDINGS: Liver: Normal morphology. ??No steatosis or iron deposition. - Bile ducts: No intrahepatic or extrahepatic biliary duct dilation - Focal liver lesions: In hepatic segment 4B (series 54 image 41), there is a 10 mm T2 hyperintense arterially enhancing lesion which retains contrast on delayed phase images and is hypointense on hepatobiliary phase images. - Vasculature: Patent portal and hepatic veins Gallbladder: Normal Pancreas: Normal Spleen: Normal Adrenals: Normal Kidneys: Simple cyst in the right kidney. ??No hydronephrosis. Other Findings: Clear lung bases. ??No lymphadenopathy or ascites. ??No suspicious osseous lesion. Procedure Note Kyle Quinn MD - 02/06/2024 EXAMINATION: MAGNETIC RESONANCE IMAGING OF THE ABDOMEN WITH AND WITHOUT CONTRAST HISTORY: Liver lesion characterization TECHNIQUE: Magnetic resonance imaging of the abdomen was performed prior to and following the uneventful administration of intravenous Gadolinium contrast. Protocol: Liver Dual Contrast Contrast: Gadoterate 19 mL; Eovist 10 mL COMPARISON: CT abdomen pelvis 02/01/2023 FINDINGS: Liver: Normal morphology. No steatosis or iron deposition. - Bile ducts: No intrahepatic or extrahepatic biliary duct dilation - Focal liver lesions: In hepatic segment 4B (series 54 image 41), there is a 10 mm T2 hyperintense arterially enhancing lesion which retains contrast on delayed phase images and is hypointense on hepatobiliary phase images. - Vasculature: Patent portal and hepatic veins Gallbladder: Normal Pancreas: Normal Spleen: Normal Adrenals: Normal Kidneys: Simple cyst in the right kidney. No hydronephrosis. Other Findings: Clear lung bases. No lymphadenopathy or ascites. No suspicious osseous lesion. IMPRESSION: T2 hyperintense enhancing lesion in hepatic segment 4B most characteristic of a flash filling hemangioma Dictated by: Bobby Yuan MD, PHD The radiology attending physician has personally reviewed this study, and had reviewed and/or edited this written report and agrees with it. Electronically signed by: Kyle Quinn M.D. Alecia Shaver NP IMG MRI PROCEDURES Final Resul t documented in this encounter Visit Diagnoses Diagnosis Liver mass Unspecified disorder of liver documented in this encounter Administered Medications Inactive Administered Medications - up to 3 most recent administrations Medication Order MAR Action Action Date Dose Rate Site gadoterate meglumine injection 19 mL 19 mL, intravenous, Once in imaging, contrast, Starting on Mon02/05/24 at 1654, For 1 dose Contrast Given 02/05/2024 4:57 PM PROP AND EFFECTS DESIGNER 19 mL gadoxetate (EOVIST) injection 10 mL 10 mL, intravenous, Once in imaging, contrast, Starting on Mon02/05/24 at 1655, For 1 dose Contrast Given 02/05/2024 4:55 PM PROP AND EFFECTS DESIGNER 10 mL documented in this encounter Care Teams Solution Engineer Relationship Specialty Start Date End Date Daily Cruz MD PCP - General Family Medicine 03/04/21 Savannah Holt PA [address] [facility] [address] [address] Physician Size Mixer Neurology 06/07/23 Ange Chavez MD [address] [facility] [address] [address] Consulting Physician Endocrinology 06/07/23 documented as of this encounter
--- OUTSIDE RECORDS SUMMARY | 2024-02-21 19:32 | XMS_ITS | Encounter Summary ---
Author Organization [facility] Healthcare Address [address] [place] [address] Care Team Providers Care Plans Examiner Name Role Phone Daily Cruz MD Primary Care Provider [phone] Savannah Holt Unavailable Ange Chavez MD Unavailable [phone] Reason for Visit * Reason Comments Test Results rest Weight Loss Encounter Details Date Type Department Care Team (Latest Contact Info) Description 12/29/2023 9:30 AM CLOTH DYEING RANGE TENDER Telemedicine [facility] Family Medicine [address] [place] [address] [place] [phone] Daily Cruz MD [address] [place] [phone] Atypical squamous cell changes of undetermined significance (ASCUS) on cervical cytology with positive 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 papilloma virus (HPV) (Primary Dx); Morbid obesity with BMI of 40.0-44.9, adult (HCC); Pure hypercholesterolemia Social History Tobacco Use Types Packs/Day Years [...] on file Legal Sex Female 3:37 PM CLOTH DYEING RANGE TENDER Gender Identity Female 03/02/2020 4:27 PM CLOTH DYEING RANGE TENDER Sexual Orientation Straight 07/10/2019 11 :13 PM CDT documented as of this encounter Last Filed Vital Signs Vital Sign Reading Time Taken Comments Blood Pressure - - Pulse - - Temperature - - Respiratory Rate - - Oxygen Saturation - - Inhaled Oxygen Concentration - - Weight 121.1 kg (267 lb) 12/29/2023 9:11 AM CLOTH DYEING RANGE TENDER pt taken Height 170.2 cm (5' 7 ) 12/29/2023 9:11 AM CLOTH DYEING RANGE TENDER Body Mass Index 41.82 12/29/2023 9:11 AM CLOTH DYEING RANGE TENDER documented in this encounter Patient Instructions * Attachments The following attachments cannot be sent through Care Everywhere. * HPV (Human Papillomavirus) (Lingo Cleaner) (Mauritanian) documented in this encounter Ordered Prescriptions Prescription Sig Dispense Quantity Refills Last Filled Start Date End Date semaglutide (Wegovy) 0.25 mg/0.5 mL auto-injectorIndic ations:Morbid obesity with BMI of 40.0-44.9, adult (HCC) Inject 0.5 mL (0.25 mg total) under the skin every 7 days 2 mL 1 12/29/2023 01/24/2024 documented in this encounter Progress Notes * Daily Cruz MD - 12/29/2023 9:30 AM CST Images from the original note were not included. Patient ID: Jud Crocker is a 33 y.o. female. Visit Date: 12/29/2023 This was a telemedicine visit with Jud Crocker alone which took place via real-time video connection. During the visit, I was located at home and the patient was located at home in the state of [place]. The patient visit started at 9:26 and ended at 9:35. I have explained the option of participating in a telemedicine visit to the patient. After being given an opportunity to ask questions about and discuss this type of visit, the patient verbally consented to proceeding with the telemedicine visit. The patient understands that this service replaces an office visit and they may be billed and/or responsible for any applicable copayments. A guest was not included in this video visit. Chief Complaint Abnl pap HPI HPI Labs at [facility] Last pap abnor H/o Hyperlipidemia - chronic Current Outpatient Medications: albuterol 2.5 mg /3 mL (0.083 %) nebulizer solution, Take 3 mL (2.5 mg total) by nebulization every4 (four) hours as needed for wheezing (Patient taking differently: Take 3 mL (2.5 mg total) by nebulization as needed for wheezing), Disp: 180 mL, Rfl: 0 albuterol HFA (PROVENTIL HFA,VENTOLIN HFA,PROAIR HFA) 90 mcg/actuation inhaler, Inhale 2 puffs every 4 (four) hours as needed for wheezing, Disp: 6.7 g, Rfl: 0 Nurtec ODT tablet,disintegrating, Take 1 tablet (75 mg total) by mouth every other day, Disp: , Rfl: onabotulinumtoxinA, cosmetic, (Botox Cosmetic) 50 unit recon soln, as directed Intramuscular, Disp:, Rfl: zavegepant (Zavzpret) 10 mg/actuation spray,non-aerosol, Administer 1 spray into affected nostril(s) daily as needed (migraine), Disp: 6 each, Rfl: 2 cholecalciferol (VITAMIN D-3) 50,000 unit capsule, , Disp: , Rfl: semaglutide (Wegovy) 0.25 mg/0.5 mL auto-injector, Inject 0.5 mL (0.25 mg total) under the skin every 7 days, Disp: 2 mL, Rfl: 1 Ht 170.2 cm (5' 7 ) Wt 121.1 kg (267 lb) Comment: pt taken BMI 41.82 kg/m?? Body mass index is 41.82 kg/m??. Physical Exam Constitutional: Appearance: Normal appearance. She is obese. HENT: Head: Normocephalic and atraumatic. Nose: Nose normal. Eyes: Extraocular Movements: Extraocular movements intact. Conjunctiva/sclera: Conjunctivae normal. Pulmonary: Effort: Pulmonary effort is normal. Musculoskeletal: Cervical back: Normal range of motion. Neurological: Mental Status: She is alert and oriented to person, place, and time. Psychiatric: Mood and Affect: Mood normal. Behavior: Behavior normal. Patient Name: JUD CROCKER Gender: F : 1990 (Age: 33) Address: [address] [place] [address] [place] [address] Hospital #: [id number] Service: UNKNOWN Location: Patient Type: [facility] SPECIMEN Taken: 11/09/2023 Received: 11/10/2023 Accessioned: 11/13/2023 Reported: 11/20/2023 Physician(s): Dr. Daily Cruz M.D. FINAL INTERPRETATION SOURCE OF SPECIMEN Liquid based Thin Prep pap with Reflex HPV: STATEMENT OF ADEQUACY - Satisfactory for evaluation - Endocervical cells/transformation zone sample present GENERAL CATEGORIZATION: - EPITHELIAL CELL ABNORMALITY INTERPRETATION: - Atypical squamous cells of undetermined significa ontains abnormal data High Risk HPV DNA Detection with Genotyping (Molecular component) Order: [id number] Status: Final result Visible to patient: Yes (seen) 0 Result Notes 1 Topic Component Ref Range & Units 1 mo ago Resulting Agency HPV HR 16 Not Detected Not Detected [facility] Comment: Testing performed by: [facility], [address] [facility] [place]., [address] HPV HR 18 Not Detected Not Detected [facility] Comment: Testing performed by: [facility], [address] [facility] [place]., [address] HPV HR Non 16/18 Not Detected Detected Abnormal Diagnoses and all orders for this visit: Atypical squamous cell changes of undetermined significance (ASCUS) on cervical cytology with positive 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 papilloma virus (HPV) (Primary) Assessment & Plan: New On pap Refer to cross enterprise integrator Morbid obesity with BMI of 40.0-44.9, adult (HCC) Assessment & Plan: BMI Follow-up includes: nutrition counseling and exercise counseling Failed Phentermine Start rozvy. Orders: - semaglutide (Wegovy) 0.25 mg/0.5 mL auto-injector; Inject 0.5 mL (0.25 mg total) under the skin every 7 days Pure hypercholesterolemia Assessment & Plan: Chronic Stable Diet control Goal: TC<200, LDL<100, TG<150 Daily Cruz MD H DYEING RANGE TENDER documented in this encounter Miscellaneous Notes * Assessment & Plan Note - Daily Cruz MD - 01/07/2024 11:03 PM CLOTH DYEING RANGE TENDER Associated Problem(s): Pure hypercholesterolemia Chronic Stable Diet control Goal: TC<200, LDL<100, TG<150 H DYEING RANGE TENDER * Assessment & Plan Note - Daily Cruz MD - 01/07/2024 11:01 PM CLOTH DYEING RANGE TENDER Associated Problem(s): Atypical squamous cell changes of undetermined significance (ASCUS) on cervical cytology with positive 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 papilloma virus (HPV) New On pap Refer to cross enterprise integrator H DYEING RANGE TENDER * Assessment & Plan Note - Daily Cruz MD - 12/29/2023 9:43 AM CLOTH DYEING RANGE TENDER Associated Problem(s): Class 3 severe obesity due to excess calories without serious comorbidity with body mass index (BMI) of 40.0 to 44.9 in adult (HCC) BMI Follow-up includes: nutrition counseling and exercise counseling Failed Phentermine Start wegovy. H DYEING RANGE TENDER documented in this encounter Plan of Treatment Not on file documented as of this encounter Goals Goal Patient Goal Type Associated Problems Recent Progress Patient-Stated? Author CCM Chronic Pain Care Plan Chronic Care Management No Sangeetha Parsons, RN Note: Problem: Chronic Pain Goals: 1. Minimize further functional decline 2. Maximize quality of life 3. Control pain Strategies: - Activity/exercise program recommendation - Conservative stepwise pain medicine strategy with multi-disciplinary approach - Recommend healthy lifestyle strategies and compensatory methods as needed documented as of this encounter Procedures Procedure Name Priority Date/Time Associated Diagnosis Comments THYROID FUNCTION CASCADE Routine 02/13/2024 9:20 AM CLOTH DYEING RANGE TENDER Pure hypercholesterolemia CBC WITH AUTO DIFFERENTIAL Routine 02/13/2024 9:20 AM CLOTH DYEING RANGE TENDER Pure hypercholesterolemia LIPID PANEL Routine 02/13/2024 9:20 AM CLOTH DYEING RANGE TENDER Pure hypercholesterolemia COMPREHENSIVE METABOLIC PANEL Routine 02/13/2024 9:20 AM CLOTH DYEING RANGE TENDER Pure hypercholesterolemia documented in this encounter Results * CBC with auto differential (02/13/2024 9:20 AM CLOTH DYEING RANGE TENDER) WBC 9.0 3.4 - 10.8 x10E3/uL [facility] - 01 RBC 4.59 3.77 - 5.28 x10E6/uL [facility] - 01 Hgb 13.4 11.1 - 15.9 g/dL [facility] - 01 Hct 41.4 34.0 - 46.6 % [facility] - 01 MCV 90 79 - 97 fL [facility] - 01 MCH 29.2 26.6 - 33.0 pg [facility] - 01 MCHC 32.4 31.5 - 35.7 g/dL [facility] - 01 Rdw 13.6 11.7 - 15.4 % [facility] - 01 Platelets 333 150 - 450 x10E3/uL [facility] - 01 Neutrophils pct 68 Not Estab. % [facility] - 01 Lymphs pct 26 Not Estab. % [facility] - 01 Monocytes pct 5 Not Estab. % [facility] - 01 Eosinophils pct 1 Not Estab. % [facility] - 01 Basophil pct 0 Not Estab. % [facility] - 01 Neutrophil abs 6.0 1.4 - 7.0 x10E3/uL [facility] - 01 Lymphs (Absolute) 2.3 0.7 - 3.1 x10E3/uL [facility] - 01 Monocyte abs 0.5 0.1 - 0.9 x10E3/uL [facility] - 01 Eosinophils, abs 0.1 0.0 - 0.4 x10E3/uL [facility] - 01 Basophils, abs 0.0 0.0 - 0.2 x10E3/uL [facility] - 01 Immature Granulocytes 0 Not Estab. % [facility] - 01 Immature Grans (Abs) 0.0 0.0 - 0.1 x10E3/uL [facility] - 01 Blood 02/13/2024 9:20 AM CLOTH DYEING RANGE TENDER 02/13/2024 Narrative [facility] - 02/14/2024 7:35 AM CLOTH DYEING RANGE TENDER Performed at: ?? - [facility] ??[id number] Bitumen Plant Operator: Tiago Che PhD, Phone: ??[phone] Result [facility] Daily Cruz MD LAB BLOOD ORDERABLES Karen l Result Performing Organization Address [facility] de Phone Number [facility] * (ABNORMAL) Lipid panel (02/13/2024 9:20 AM CLOTH DYEING RANGE TENDER) Cholesterol 163 100 - 199 mg/dL [facility] - 01 Triglycerides 75 0 - 149 mg/dL [facility] - 01 HDL Cholesterol 45 >39 mg/dL [facility] - 01 VLDL 14 5 - 40 mg/dL [facility] - 01 LDL, calculated 104(H) 0 - 99 mg/dL [facility] - 01 Blood 02/13/2024 9:20 AM CLOTH DYEING RANGE TENDER 02/13/2024 Narrative [facility] - 02/14/2024 7:35 AM CLOTH DYEING RANGE TENDER Performed at: ?? - [facility] ??[id number] Bitumen Plant Operator: Tiago Che PhD, Phone: ??[phone] Result [facility] Daily Cruz MD LAB BLOOD ORDERABLES Karen l Result Performing Organization Address [facility] de Phone Number [facility] - * Comprehensive metabolic panel (02/13/2024 9:20 AM CLOTH DYEING RANGE TENDER) Glucose 79 70 - 99 mg/dL [facility] - 01 BUN 11 6 - 20 mg/dL [facility] - 01 Creatinine, Serum 0.69 0.57 - 1.00 mg/dL [facility] - 01 eGFR 118 >59 mL/min/1.73 [facility] - 01 BUN/creat ratio 16 9 - 23 [facility] - 01 Sodium 139 134 - 144 mmol/L [facility] - 01 Potassium, sr 4.3 3.5 - 5.2 mmol/L [facility] - 01 Chloride 105 96 - 106 mmol/L [facility] - 01 CO2 22 20 - 29 mmol/L [facility] - 01 Calcium 9.2 8.7 - 10.2 mg/dL [facility] - 01 Protein, sr 6.7 6.0 - 8.5 g/dL [facility] - 01 Albumin 4.1 3.9 - 4.9 g/dL [facility] - 01 Globulin, Total 2.6 1.5 - 4.5 g/dL [facility] - 01 Bilirubin, Total 0.4 0.0 - 1.2 mg/dL [facility] - 01 Alk phos 100 44 - 121 IU/L [facility] - 01 AST 13 0 - 40 IU/L [facility] - 01 ALT 16 0 - 32 IU/L [facility] - 01 Blood 02/13/2024 9:20 AM CLOTH DYEING RANGE TENDER 02/13/2024 Narrative [facility] - 02/14/2024 7:35 AM CLOTH DYEING RANGE TENDER Performed at: ??01 - [facility] ??[id number] Bitumen Plant Operator: Tiago Che PhD, Phone: ??[phone] us Daily Cruz MD LAB BLOOD ORDERABLES Karen l Result [facility] - 01 * Thyroid Function [place] (02/13/2024 9:20 AM CLOTH DYEING RANGE TENDER) Pathologist [facility] TSH 4.020 0.450 - 4.500 uIU/mL [facility] - 01 Comment: No apparent thyroid disorder. Additional testing not indicated. In rare instances, Secondary Hypothyroidism as well as Subclinical Hypothyroidism have been reported in some patients with normal TSH values. Blood 02/13/2024 9:20 AM CLOTH DYEING RANGE TENDER 02/13/2024 Narrative [facility] - 02/14/2024 7:35 AM CLOTH DYEING RANGE TENDER Performed at: ??01 - [facility] [address] ??[id number] Bitumen Plant Operator: Tiago Che PhD, Phone: ??[phone] us Daily Cruz MD LAB BLOOD ORDERABLES Karen l Result [facility] - documented in this encounter Visit Diagnoses Diagnosis Atypical squamous cell changes of undetermined significance (ASCUS) on cervical cytology with positive 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 papilloma virus (HPV)- Primary Morbid obesity with BMI of 40.0-44.9, adult (HCC) Pure hypercholesterolemia documented in this encounter Discontinued Medications Medication Sig Discontinue Reason Start Date End Da te Estarylla 0.25-35 mg-mcg per tablet Therapy completed 11/01/2023 12/29/2023 fluticasone propionate (FLOVENT HFA) 44 mcg/actuation inhaler PT WILL START SOON Therapy completed 10/31/202312/28 ondansetron (ZOFRAN) 4 mg tablet Therapy completed 09/01/2023 12/29/2023 documented as of this encounter Care Teams Plans Examiner Relationship Specialty Start Date End Date Daily Cruz MD PCP - General Family Medicine 03/04/21 Savannah Holt PA [address] [facility] DIV NEUROLOGY [facility], [address] [address] Physician Senior Naval Parachutist Neurology 06/07/23 Ange Chavez MD [address] [facility] [address] NEUROLOGY [facility], [address] [address] Consulting Physician Endocrinology 06/07/23 documented as of this encounter
--- OUTSIDE RECORDS SUMMARY | 2024-02-21 19:32 | XMS_ITS | Encounter Summary ---
Author Organization [facility] Healthcare Address [address] [place] [address] Care Team Providers Care Risk Assessment Analyst Name Role Phone Daily Cruz MD Primary Care Provider [phone] Savannah Holt Unavailable [phone] Ange Chavez MD Unavailable [phone] Reason for Visit * Reason Onset Date Comments Medication Request 01/24/2024 Encounter Details Date Type Department Care Team (Late st Contact Info) Description 01/24/2024 Telephone [facility] Family Medicine [address] [place] [address] [address] [place] [address] Daily Cruz MD [address] [place] [address] Medication Request Social History Tobacco Use Types Packs/Day Years [...] on file 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 HOUSE INSPECTOR * Telephone Encounter - Paulina Gonzalez - 01/24/2024 8:55 AM CST Medication Question/Clarification Medication Name(s): weingrisvey What is the question or clarification needed? Patient needs a refill and is ready for the next higher dose If needed, Pharmacy(s) medication(s) should be sent to: [id number] [place], [place] - [address] [place] [address] RD [address] [facility] [address] Additional Comments: NA Does message need to be routed? Yes-Action Needed HOUSE INSPECTOR documented in this encounter Plan of Treatment [...] as needed documented as of this encounter Visit Diagnoses Not on filedocumented in this encounter Discontinued Medications Medication Sig Discontinue Reason Start Date End Da te semaglutide (Wegovy) 0.25 mg/0.5 mL auto-injectorIndications :Morbid obesity with BMI of 40.0-44.9, adult (HCC) Inject 0.5 mL (0.25 mg total) under the skin every 7 days 12/29/2023 01/24/2024 documented as of this encounter Care Teams Risk Assessment Analyst Relationship Specialty Start Date End Date Daily rCuz MD PCP - General Family Medicine 03/04/21 Savannah Holt PA [address] [facility] NEUROLOGY [address] [address] Physician Machine Silver Stripper Neurology 06/07/23 Ange Chavez MD [address] [address] Consulting Physician Endocrinology 06/07/23 documented as of this encounter
--- OUTSIDE RECORDS SUMMARY | 2024-02-21 19:32 | XMS_ITS | Encounter Summary ---
Author Organization [facility] Address [address] [place] [address] Phone Care Team Providers Care Senior Data Quality Analyst Name Role Phone Daily Cruz MD Primary Care Provider [phone] Savannah Holt Unavailable [phone] Ange Chavez MD Unavailable [phone] Reason for Visit * Reason Comments Follow-up Encounter Details Date Type Department Care Team (Late st Contact Info) Description 01/22/2024 5:00 PM POLYGRAPH TECHNICIAN [facility] - [facility] [address] [facility] [address] [place] [address] Selam Orosco NP [address] [facility] [address] [place] [address] Strain of peroneal tendon of right foot, subsequent encounter (Primary Dx) Social History Tobacco Use Types Packs/Day Years [...] on file Legal Sex Female 3:37 PM POLYGRAPH TECHNICIAN Gender Identity Female 03/02/2020 4:27 PM POLYGRAPH TECHNICIAN Sexual Orientation Straight 07/10/2019 11 :13 PM CDT documented as of this encounter Last Filed Vital Signs Vital Sign Reading Time Taken Comments Blood Pressure - - Pulse - - Temperature - - Respiratory Rate - - Oxygen Saturation - - Inhaled Oxygen Concentration - - Weight 117.9 kg (260 lb) 01/22/2024 5:22 PM POLYGRAPH TECHNICIAN Height 170.2 cm (5' 7 ) 01/22/2024 5:22 PM POLYGRAPH TECHNICIAN Body Mass Index 40.72 01/22/2024 5:22 PM POLYGRAPH TECHNICIAN documented in this encounter Patient Instructions * Patient Instructions* Selam Orosco NP - 01/22/2024 5:00 PM POLYGRAPH TECHNICIAN Images from the original note were not included. Jud Jettitis 1990 Strain of peroneal tendon of right foot, subsequent encounter [A71.078N] TO DO: Begin foot and ankle conditioning program. If pain increases, contact the office to update and recommend returning to the boot until pain decreases. If not responding to home foot and ankle conditioning, recommend formal physical therapy The recommendations you received in the [facility] was an initiation of care for your urgent problem. It is very important that you follow the treatment plan as outlined with you at your visit. If your symptoms should worsen, you can reach your Provider through the office at during regular business hours M-F from 8:00 a.m. to 4:30 p.m. After 4:30 p.m. or on weekends, please call the Physician/Exchange at . If your symptoms worsen and you are unable to reach anyone at either of the numbers provided, you should seek further medical attention in the ER or with your primary care provider. Selam Orosco NP GRAPH TECHNICIAN documented in this encounter Progress Notes * Selam Orosco NP - 01/22/2024 5:00 PM CST RETURN PATIENT VISIT INTERVAL HISTORY Jud Crocker is a 33 y.o. who presents today for follow up left ankle sprain. Date of [email or web address]. Discomfort has improved considerably. Notes tenderness peroneal tendon posteriorto the lateral malleolus. Pain increases with plantar flexion and dorsiflexion. PHYSICAL EXAMINATION CONSTITUTIONAL: Well-appearing, in no apparent distress EYES: No scleral icterus or conjunctival hemorrhage CARDIOVASCULAR: Skin warm and well-perfused, no peripheral edema RESPIRATORY: Breathing unlabored without accessory muscle use PSYCHIATRIC: Alert, cooperative, appropriate mood and affect SKIN: No lesions or rashes on exposed skin MUSCULOSKELETAL: Tender palpation right peroneal tendon posterior lateral malleolus. No focal tenderness over the lateral malleolus or medial malleolus. Ankle range of motion with mild provocation ofpain during plantar flexion and dorsiflexion. No focal tenderness at the ATFL, CFL. Achilles tendonintact. Calcaneal squeeze negative. NEUROLOGIC: Sensation intact to the right foot and ankle IMPRESSION/DIAGNOSIS Right ankle sprain, improved with mild persistent peroneal tendinitis TREATMENT/PLAN History, exam, imaging findings and working diagnosis are reviewed with the patient today. Explained the natural history of the condition and reviewed in detail treatment options. Begin foot and ankle conditioning program. If pain increases, contact the office to update and recommend returning to the boot until pain decreases. If not responding to home foot and ankle conditioning, recommend formal physical therapy Selam Orosco RN, ANP-BC Nurse Practitioner [facility] Orthopedics Division of Physical Medicine and Rehabilitation In collaboration with Dr. Sandoval This document was created using speech voice recognition software. Grammatical errors, random word insertions, pronoun errors and incomplete sentences are an occasional consequence of this system due to software limitations, ambient noise and hardware issues. Any formal questions or concerns about content, text or information contained within the body of this dictation should be directly addressed to the provider for clarification. GRAPH TECHNICIAN documented in this encounter Plan of Treatment Not on file documented as of this encounter Goals Goal Patient Goal Type Associated Problems Recent Progress Patient-Stated? Author CCM Chronic Pain Care Plan Chronic Care Management No Sangeetha Parsons RN Note: Problem: Chronic Pain Goals: 1. Minimize further functional decline 2. Maximize quality of life 3. Control pain Strategies: - Activity/exercise program recommendation - Conservative stepwise pain medicine strategy with multi-disciplinary approach - Recommend healthy lifestyle strategies and compensatory methods as needed documented as of this encounter Visit Diagnoses Diagnosis Strain of peroneal tendon of right foot, subsequent encounter- Primary documented in this encounter Care Teams Senior Data Quality Analyst Relationship Specialty Start Date End Date Daily Cruz MD PCP - General Family Medicine 03/04/21 Savannah Holt PA [address] [facility] NEUROLOGY [address] [address] Physician Game Moderator Neurology 06/07/23 Ange Chavez MD [address] [address] Consulting Physician Endocrinology 06/07/23 documented as of this encounter
--- OUTSIDE RECORDS SUMMARY | 2024-02-21 19:32 | XMS_ITS | Encounter Summary ---
Author Organization [facility] Healthcare Address [address] [place] [address] Care Team Providers Care Counter Clerk [employer] Name Role Phone Daily Cruz MD Primary Care Provider [phone] Savannah Holt Unavailable [phone] Ange Chavez MD Unavailable [phone] Encounter Details Date Type Department Care Team (Late st Contact Info) Description 12/29/2023 Telephone [facility] Medical [facility] Family Medicine [address] [facility] [address] [place] [address] Daily Cruz MD [address] [place] [address] Social History Tobacco Use Types Packs/Day Years [...] on file Legal Sex 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 NCING ANALYST * Telephone Encounter - Lisa Zurita MA - 12/29/2023 2:22 PM CST PA for leticia started on CM (Bhakta: [id number]) NCING ANALYST documented in this encounter Plan of Treatment [...] Diagnoses Not on filedocumented in this encounter Care Teams Counter Clerk [employer] Relationship Specialty Start Date End Date Daily Cruz MD PCP - General Family Medicine 03/04/21 Savannah Holt PA [address] [facility], [address] [address] Physician Candy Forming Machine Operator Neurology 06/07/23 Ange Chavez MD [address] [facility] NEUROLOGY [facility], [address] [address] Consulting Physician Endocrinology 06/07/23 documented as of this encounter
--- OUTSIDE RECORDS SUMMARY | 2024-02-21 19:32 | XMS_ITS | Clinical Summary ---
Author Organization [facility] Address [address] [place] [id number] Care Team Providers Care [employer] Supervisor Name Role Phone Daily Cruz MD Primary Care Provider [phone] Savannah Holt Unavailable Ange Chavez MD Unavailable [phone] Allergies Active Allergy Reactions Criticality Noted Date Comments Acetazolamide Swollen tongue High 01/04/2016 Tongue and lip swelling Sob Rash Dihydroergotamine Shortness of breath High 10/16/2015 Severe pressure and tightness in chest Severe pressure and tightness in chest Anxiety, Shortness of Breath/Wheezing (Shortness of breath) Bradycardia and HTN Hydrochlorothiazide Swollen tongue High 05/20/2020 Hydrocodone-Acetaminophen Nausea And Vomiting 09/11/2017 Lamotrigine Other (See comments) Low 09/20/2017 SEIZURE ACTIVITY Latex Hives,Blisters High 07/31/2023 Levetiracetam Other (See comments) Low 09/20/2017 SEIZURE ACTIVITY Nickel Hives,Itching,Rash ,Swelling Medium 09/20/2017 SKIN TURNS RED Oxycodone-Acetaminophen Nausea And Vomiting Low 09/11/2017 Topiramate Swelling,Other (See comments) Medium 04/18/2016 Dizzy, body goes numb Medications albuterol HFA (PROVENTIL HFA,VENTOLIN HFA,PROAIR HFA) 90 mcg/actuation inhalerIndica tions:Acute Asthma Attack Inhale 2 puffs every 4 (four) hours as needed for wheezing 6.7 g 02/17/19 Active albuterol 2.5 mg /3 mL (0.083 %) nebulizer solutionIndic ations:Acute Asthma Attack Take 3 mL (2.5 mg total) by nebulization every 4 (four) hours as needed for wheezing 180 mL 02/17/19 Active Additional Information Patient taking differently:2.5 mg nebulizationAs needed, wheezing, Indications: Acute Asthma Attack, Reported on 01/22/2024 Nurtec ODT tablet,disint egratingIndic ations:New daily persistent headache Take 1 tablet (75 mg total) by mouth every other day 06/08/19 Active zavegepant (Zavzpret) 10 mg/actuation spray,non-aer osolIndicatio ns:Migraine Administer 1 spray into affected nostril(s) daily as needed (migraine) 6 each 2 07/14/19 Active onabotulinumt oxinA, cosmetic, (Botox Cosmetic) 50 unit recon soln as directed Intramuscular Active cholecalcifer ol (VITAMIN D-3) 50,000 unit capsule 01/01/20 Active semaglutide (Wegovy) 0.5 mg/0.5 mL auto-injector Inject 0.5 mL (0.5 mg total) under the skin every 7 days 2 mL 01/24/20 24 Active dexAMETHasone (DECADRON) 1 mg tablet take 1 mg at 11pm and go to the lab the next morning at 8am to have your blood drawn. 1 tablet 02/02/20 Active semaglutide (Wegovy) 0.25 mg/0.5 mL auto-injector Indications:M orbid obesity with BMI of 40.0-44.9, adult (HCC) Inject 0.5 mL (0.25 mg total) under the skin every 7 days 2 mL 1 12/29/19 24 2023 Discontinued Active Problems Problem Noted Date Diagnosed Date Pure hypercholesterolemia 01/07/2024 Assessment & Plan (01/07/2024 11:03 PM PROGRAMMING COORDINATOR): Chronic Stable Diet control Goal: TC<200, LDL<100, TG<150 Atypical squamous cell han es of undetermined significance (ASCUS) on cervical cytology with positive 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 papilloma virus (HPV) 12/29/2023 Assessment & Plan (01/07/2024 11:01 PM PROGRAMMING COORDINATOR): New On pap Refer to expander machine operator Encounter for well woman joy ness with routine gynecological exam 11/09/2023 Assessment & Plan (11/17/2023 9:55 AM CDT): Pap done Await report Hordeolum internum of left lower eyelid 10/27/19 Assessment & Plan (10/27/2023 9:41 AM CDT): -urgent visit for LLL edema, tenderness, redness x 2 days +internal hordeolum on nasal LL with tenderness to palpation -rx keflex 500mg po bid x 10 days; avoid doxy d/t possible h/o IIH -rx tobradex gtts tid OS x 7-10 days; discussed snf side effect of topical steroid use -RTC prn or if symptoms worsen or persist Exotropia 10/27/2023 Assessment & Plan (10/27/2023 9:42 AM CDT): -followed by Dr. Ruano -continue pencil push-ups; pt wanting to avoid surgical intervention if possible -RTC as scheduled with Dr. Ruano; sooner with issues Allergic rhinitis due to animal hair and dander 10/19/2023 Chronic allergic conjunctivitis 10/19/2023 Chronic sinusitis 10/19/2023 Restlessness and agitation 10/19/2023 Hemangioma of intra-abdominal structure 10/19/19 Constipation 08/10/2023 Assessment & Plan (08/10/2023 12:22 PM CDT): Chronic, mild, intermittent. -high-fiber diet -MiraLax OTC p.r.n. TMJ arthralgia 07/31/2023 Maxillary pain 07/31/2023 Nasal congestion 07/06/2023 Assessment & Plan (07/14/2023 6:30 AM CDT): New Likely sinus infection Order zpack Infertility, female 07/06/2023 Assessment & Plan (07/14/2023 6:29 AM CDT): New Refer to infertility specialist Liver mass 05/12/2023 Moderate persistent asthma with acute exacerbati on 02/02/2023 Pituitary adenoma 01/13/2023 Acute bronchitis due to other specified organism s 12/12/2022 Assessment & Plan (01/07/2023 11:22 AM PROGRAMMING COORDINATOR): Persistent symptoms Order cefdinir Diplopia 12/12/2022 Assessment & Plan (01/07/2023 11:23 AM PROGRAMMING COORDINATOR): Persistent Refer to neuroopthalmology Bilateral lower extremity edema 11/25/2022 Assessment & Plan (12/23/2022 6:22 AM PROGRAMMING COORDINATOR): Persistent Causes pain Refer to lymphedema clinic 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 Assessment & Plan (07/15/2022 6:24 PM CDT): Nystatin suspension, use as directed Follow up with PCP for persisting symptoms Elevated blood pressure, situational 05/27/2022 Panic attack 03/30/2022 Assessment & Plan (04/08/2022 6:49 AM PROGRAMMING COORDINATOR): New Start rexulti Use xanax PRN Treatments failed: zoloft, celexa, wellbutrin, effexor, cymbalta, vraylar Acute bacterial sinusitis 03/22/2022 Persistent asthma without complication 3 Lumbar radiculopathy 02/02/2022 Overview (02/22/2023): Added automatically from request for surgery [id number] Bulging lumbar disc 12/22/2021 Assessment & Plan (12/30/2021 5:42 AM PROGRAMMING COORDINATOR): Uncontrolled pain Refer to pain management Allergic conjunctivitis of both eyes 12/21/2021 Allergic rhinitis due to pollen 12/21/2021 Allergic reaction 12/06/2021 Gastroesophageal reflux disease without esophagi tis 11/16/2021 Assessment & Plan (08/10/2023 12:23 PM CDT): Chronic, has tried Zantac, Prilosec, and famotidine in the past. Currently controlled with diet. EGD December 2022 with irregular Z-line and gastritis, pathology unremarkable. -Pepcid OTC p.r.n. -RECOMMENDATIONS given include: anti-reflux maneuvers, Avoid acidic foods like oranges and tomatoes., avoidance of spicy foods, avoid eating 3-4 hours before bed, elevation of the head of the bed, and weight loss Assessment & Plan (11/16/2021 8:17 AM CDT): Chronic, has tried Zantac, Prilosec, and famotidine in the past. Currently taking Tums p.r.n. -we will restart famotidine 40 mg daily p.r.n. -schedule EGD -The risks (risks of bleeding, infection, perforation requiring surgery, missed polyps/cancer, dental injury, aspiration pneumonia, anesthesia complications such as drug reaction and cardiopulmonary complications including rare chance of ), benefits, and alternatives of the planned procedure were explained to the patient who understands and consents to having procedure done. Diarrhea 11/16/2021 Assessment & Plan (08/10/2023 12:12 PM CDT): Diarrhea intermittently alternating with constipation. -we will order stool studies rule out infectious etiologies -colonoscopy as above Assessment & Plan (11/16/2021 8:16 AM CDT): Diarrhea intermittently alternating with constipation. -we will order stool studies rule out infectious etiologies -colonoscopy as above Endometriosis 10/26/2021 Assessment & Plan (10/26/2021 9:58 AM CDT): New Order pelvic/transvaginal ultrasound Refer to GI and expander machine operator RLQ abdominal pain 10/26/2021 Assessment & Plan (08/10/2023 12:22 PM CDT): Went to the ER for right lower quadrant abdominal pain that is sharp and stabbing, intermittent, once every few weeks. No aggravating or relieving factors. Labs and CT scan were unremarkable. Patient does have a history of endometriosis, and has follow up with OBGYN. Colonoscopy 12/2022 with internal hemorrhoids, biopsies negative for microscopic colitis. Abdominal pain has resolved with starting gluten free diet. -patient may have a gluten intolerance, biopsies from EGD were negative for celiac disease; continue gluten free diet -discussed testing for HLA DQ 2 and DQ 8 given patient's sister has lupus, however patient deferred at this time; she will call us back if she would like to have this testing done Assessment & Plan (11/16/2021 8:15 AM CDT): Recently went to the ER for right lower quadrant abdominal pain that is sharp and stabbing, intermittent, once every few weeks. No aggravating or relieving factors. Labs and CT scan were unremarkable. Patient does have a history of endometriosis, and has follow up with OBGYN. -colonoscopy as above -further workup per OBGYN -if persists and workup negative, we will consider CT enterography Assessment & Plan (10/26/2021 9:58 AM CDT): New Order pelvic/transvaginal ultrasound Refer to GI and expander machine operator Localized swelling of left foot 10/11/2021 Assessment & Plan (10/15/2021 6:24 AM CDT): New Refer to podiatry High serum c-peptide 10/11/2021 Assessment & Plan (10/15/2021 6:24 AM CDT): New Order further labs to r/o connective tissue disorder Chronic pain of multiple joints 10/11/2021 Assessment & Plan (10/15/2021 6:23 AM CDT): Uncontrolled Order labs to r/o connective tissue disorder White matter abnormality on MRI of brain 022 Assessment & Plan (10/15/2021 6:23 AM CDT): New Refer to neurology Plantar fasciitis 09/07/2021 Patellar maltracking, left 10/06/2020 Overview (10/06/2020): Added automatically from request for surgery [id number] Other chronic pain 10/05/2020 Bipolar 2 disorder ([facility] 10/05/2020 Assessment & Plan (04/08/2022 6:49 AM PROGRAMMING COORDINATOR): New Start rexulti Use xanax PRN\ Treatments failed: zoloft, celexa, wellbutrin, effexor, cymbalta, vraylar Well adult exam 08/25/2020 Leg cramping 08/19/2020 Assessment & Plan (08/25/2020 4:35 PM CDT): Worsening Has been on gabapentin before and didn't help Start lyrica Prepatellar bursitis of both knees 05/20/2020 Assessment & Plan (05/20/2020 12:41 PM CDT): Still with severe pain Refer to ortho Lumbar spondylosis 05/20/2020 Assessment & Plan (12/30/2021 5:41 AM PROGRAMMING COORDINATOR): Uncontrolled pain Refer to pain management Assessment & Plan (05/20/2020 12:41 PM CDT): Worsening pain Refer to neurosurgery Fluid retention 05/20/2020 Assessment & Plan (08/23/2022 6:42 PM CDT): Chronic Stable Cont lasix Assessment & Plan (07/20/2021 2:01 PM CDT): Stable Cont lasix Assessment & Plan (08/25/2020 4:35 PM CDT): Stable Cont bumex Assessment & Plan (05/20/2020 12:42 PM CDT): Worsening Order bumex 1 mg daily Reactive airway disease without asthma Assessment & Plan (05/13/2020 4:02 AM CDT): Stable Cont symbicort Anxiety and depression 04/01/2020 Assessment & Plan (01/07/2023 11:19 AM PROGRAMMING COORDINATOR): Better Cont prozac to 40mg Assessment & Plan (08/23/2022 6:41 PM CDT): Chronic Cont xanax PRN Assessment & Plan (07/28/2022 7:12 PM CDT): Chronic Not controlled Start prozac Treatments failed: zoloft, celexa, wellbutrin, effexor, cymbalta, vraylar Assessment & Plan (08/19/2020 11:27 AM CDT): Worsening Refer to psychiatry Assessment & Plan (05/20/2020 12:43 PM CDT): Not controlled Order viibryd Assessment & Plan (05/13/2020 4:03 AM CDT): Improving Increase vraylar to 3 mg daily Assessment & Plan (04/01/2020 11:36 AM PROGRAMMING COORDINATOR): Worsening Start vraylar 1.5mg Chronic pain of both knees 03/04/2020 Assessment & Plan (08/25/2020 4:35 PM CDT): Stable Cont diclofenac Assessment & Plan (05/13/2020 4:02 AM CDT): Uncontrolled Start Voltaren Await MRI Assessment & Plan (04/12/2020 4:51 PM PROGRAMMING COORDINATOR): No improvement Get MRIs next Assessment & Plan (03/05/2020 4:22 AM PROGRAMMING COORDINATOR): Worsening To start PT Lumbar degenerative disc disease 03/04/2020 Assessment & Plan (12/30/2021 5:42 AM PROGRAMMING COORDINATOR): Uncontrolled pain Refer to pain management Assessment & Plan (03/05/2020 4:23 AM PROGRAMMING COORDINATOR): To get MRI report from [facility]' Worsening To start PT Chronic pain of both hips 03/04/2020 Assessment & Plan (03/05/2020 4:22 AM PROGRAMMING COORDINATOR): Worsening To start PT Chronic bilateral low back pain 01/29/2020 Assessment & Plan (12/30/2021 5:41 AM PROGRAMMING COORDINATOR): Uncontrolled pain Refer to pain management Assessment & Plan (05/13/2020 4:02 AM CDT): Uncontrolled Start Voltaren Await MRI Assessment & Plan (02/17/2020 4:51 AM PROGRAMMING COORDINATOR): New Order lumbar xray Left hip pain 01/29/2020 Assessment & Plan (02/17/2020 4:51 AM PROGRAMMING COORDINATOR): New Order hip xray Exposure to COVID-19 virus 12/18/2019 Acute cough 12/18/2019 Assessment & Plan (07/15/2022 6:30 PM CDT): Rapid COVID and flu negative, PCR pending Reports cough became productive and symptoms worsened after surgery on Monday Wheezing noted on physical exam Vital signs stable, Patient does not appear to be in acute respiratory distress Ordered chest x-ray Augmentin as directed Tessalon p.r.n. for cough Continue prednisone as prescribed by profiler Continue inhalers and nebulizer as prescribed If you are not improving or worsening in the next 5-7 days you must RETURN to the clinic, go to your PCP, or Urgent Care/ER to be SEEN and reevaluated. No further prescriptions or refills will be given by phone without another evaluation. If you develop a high fever 103+, neck stiffness, trouble breathing, chest pain, or other life threatening symptoms GO TO THE ER IMMEDIATELY. Assessment & Plan (12/23/2019 5:19 AM PROGRAMMING COORDINATOR): Was exposed to COVID Order covid tsting Order zpack, symbicort, tussionex Arthralgia 08/01/2019 Assessment & Plan (08/25/2020 4:35 PM CDT): Worsening Order lab testing for metals Assessment & Plan (09/25/2019 5:34 AM CDT): Needs further w/u Order ESR and crp Elevated sedimentation rate 08/01/2019 Assessment & Plan (09/25/2019 5:34 AM CDT): Needs further work-up Order ESR and crp Moderate persistent asthma without complication 07/11/2019 Assessment & Plan (08/26/2019 2:16 AM CDT): Increased SOB Cont albuterol PRN Order CT chest Attention deficit disorder (ADD) in adult 2019 Assessment & Plan (08/26/2019 2:15 AM CDT): Stable Rathke's cyst 07/11/2019 Non-refractory chronic migraine without aura Assessment & Plan (05/20/2020 12:40 PM CDT): Better Try ubrelvy for acute headaches Cont emgality Assessment & Plan (08/26/2019 2:15 AM CDT): New Order CT head Pseudotumor cerebri 07/11/2019 Assessment & Plan (02/17/2020 4:51 AM PROGRAMMING COORDINATOR): With increased headaches, Get MRI brain Assessment & Plan (08/26/2019 2:15 AM CDT): Getting increased GAGNON Order CT head Pain and swelling of lower extremity 07/11/2019 Assessment & Plan (08/26/2019 2:15 AM CDT): Stable cotn hctz 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 or arthrodesis 06/30 Overview (07/01/2019): Added automatically from request for surgery [id number] Painful orthopaedic hardware 07/01/2019 Overview (07/01/2019): Added automatically from request for surgery [id number] Class 3 severe obesity due t o excess calories without serious comorbidity with body mass index (BMI) of 40.0 to 44.9 in adult 03/22/2016 Assessment & Plan (12/29/2023 9:43 AM PROGRAMMING COORDINATOR): BMI Follow-up includes: nutrition counseling and exercise counseling Failed Phentermine Start wegovy. Assessment & Plan (08/23/2022 6:43 PM CDT): Chronic Tolerating phentermine Increase to 1 tab daily Assessment & Plan (07/28/2022 7:09 PM CDT): BMI Follow-up includes: nutrition counseling and exercise counseling Start Phentermine. Family history of seizure disorder 05/28/2015 History of syncope 05/28/2015 Vitamin D deficiency 05/28/2015 Assessment & Plan (07/20/2021 1:57 PM CDT): Chronic Control naturally Assessment & Plan (08/25/2020 4:34 PM CDT): Stable Cont OTC supplement Simple obesity 10/22/2014 Allergic rhinitis 01/31/2009 Gastritis 01/31/2009 Increased frequency of urination 01/31/2009 Chronic migraine without aur a without status migrainosus, not intractable 01/31/2009 Assessment & Plan (07/14/2023 6:30 AM CDT): Chronic Uncontrolled Failed: nurtec Order zavpret Assessment & Plan (10/21/2021 5:03 PM CDT): Worsening Change back from ajovy to emgality Try nurtrec Failed meds: ubrelvy, imitrex Assessment & Plan (10/15/2021 6:24 AM CDT): chronic Cont Emgality, imitrex PRN Assessment & Plan (07/20/2021 2:00 PM CDT): Stable Cont Emgality, imitrex PRN Assessment & Plan (09/21/2020 6:23 AM CDT): New Order fioiricet with codeine prn Assessment & Plan (05/13/2020 4:01 AM CDT): Stable Cont emgality Assessment & Plan (04/01/2020 11:28 AM PROGRAMMING COORDINATOR): Has been on keppra and lamictal before for prevention, but they caused side effects of severe drowsiness and would get witdrawal tremors Assessment & Plan (03/05/2020 4:23 AM PROGRAMMING COORDINATOR): Uncontrolled Start emgality Assessment & Plan (01/29/2020 11:36 AM PROGRAMMING COORDINATOR): Uncontrolled Start ajovy Paronychia 01/31/2009 Screening for condition 01/31/2009 Overview (08/08/2019): Overview: Gallbladder ultrasound 01/2009 Chest xray 05/2004 Seborrhea 01/31/2009 Resolved Problems Problem Noted Date Diagnosed Date Resolved Date Upper respiratory tract infection 10/19/2023 12/29/2023 Assessment & Plan (10/19/2023 3:35 PM CDT): Covid and Influenza negative in the clinic today. Augmentin sent out. Discussed supportive measures including increase sugar-free fluid intake, rest, use of Tylenol/Motrin per package instructions for discomfort and fever. Instructed to use good handwashing within the household. Patient/caregiver understands and agrees with treatment plan. Go to the ER if you are experiencing any shortness of breath, blue lips, high fevers, rapid heart rate, confusion, chest pain, dizziness, or worsening symptoms. Hypertension, essential 05/27/202202/13 Assessment & Plan (07/28/2022 7:11 PM CDT): Chronic Stable Cont losartan Goal: SBP<140, DBP<90 Blood in stool 10/26/2021 02/22/2023 Assessment & Plan (11/16/2021 8:15 AM CDT): Bright red blood per rectum with clots for the past week. Recent labs with normal hemoglobin. Patient was taking significant NSAIDs due to back pain prior to bleeding. Differential includes hemorrhoidal bleeding versus IBD versus less likely colon polyp/mass. -avoid NSAIDs -schedule colonoscopy -The risks (risks of bleeding, infection, perforation requiring surgery, missed polyps/cancer, dental injury, aspiration pneumonia, anesthesia complications such as drug reaction and cardiopulmonary complications including rare chance of ), benefits, and alternatives of the planned procedure were explained to the patient who understands and consents to having procedure done. Assessment & Plan (10/26/2021 9:58 AM CDT): New Order pelvic/transvaginal ultrasound Refer to GI and expander machine operator Hyperglycemia 09/27/2021 02/22/2023 Acute bronchitis due to othe r specified organisms 07/20/2021 12/06/2021 Assessment & Plan (07/20/2021 2:01 PM CDT): New Order zpack, symbicort, Tessalon perles, albuterol Pure hypercholesterolemia 07/20/2021 Assessment & Plan (12/30/2021 5:41 AM PROGRAMMING COORDINATOR): Chronic Follow low cholesterol diet Goal: TC<200, LDL<100, TG<150 Acute recurrent maxillary sinusitis 08/05/2020 02/22/2023 Assessment & Plan (08/05/2020 6:16 PM CDT): Advised to continue Augmentin as directed. Started on a Medrol Dosepak as directed and recommended plain Mucinex. Instructed to increase clear liquids, rest, and vitamin C in diet. Recommended follow-up with PCP if symptoms worsen, don't improve, or new symptoms develop. Herpes zoster without complication 06/09/2020 02/22/2023 Assessment & Plan (06/09/2020 10:06 AM CDT): Healing well Done with antiviral Acute bilateral low back tashia n without sciatica 03/04/2020 02/22/2023 Acute pain of left knee 01/29/202002/13 Assessment & Plan (02/17/2020 4:51 AM PROGRAMMING COORDINATOR): New Order knee xray Pustular rash 01/29/2020 02/22/2023 Assessment & Plan (02/17/2020 4:52 AM PROGRAMMING COORDINATOR): New Order Doxycycline Nasal congestion 12/18/2019 02/22/2023 Assessment & Plan (12/23/2019 5:19 AM PROGRAMMING COORDINATOR): Was exposed to COVID Order covid tsting Order flonase, xyzal Seizure 04/25/2017 02/22/2023 Chronic intractable headache 01/04/2016 07/20/2021 Hyperthyroidism 09/28/2015 02/22/2023 Obesity due to excess calories 12/24/2014 02/22/2023 Candidiasis of vagina 01/31/20092023 Skin striae 01/31/2009 02/22/2023 Tinea pedis 01/31/2009 02/22/2023 Encounters Date Type Department Care Team Description 02/05/2024 7:12 AM PROGRAMMING COORDINATOR - 02/05/2024 11:59 PM PROGRAMMING COORDINATOR Hospital Encounter [facility] [address] [place] [phone] Liver mass Discharge Disposition: Discharge to home or self care 02/05/2024 7:12 AM PROGRAMMING COORDINATOR - 02/05/2024 11:59 PM PROGRAMMING COORDINATOR Hospital Encounter [facility] [address] [place] [phone] Right upper quadrant abdominal pain Discharge Disposition: Discharge to home or self care 02/05/2024 7:11 AM PROGRAMMING COORDINATOR - 02/05/2024 11:59 PM PROGRAMMING COORDINATOR Hospital Encounter [facility] [address] [place] [phone] Right upper quadrant abdominal pain Discharge Disposition: Discharge to home or self care 02/02/2024 8:40 AM PROGRAMMING COORDINATOR Office Visit [facility] Endocrinology Metabolism and Lipid [address] [facility] [address], [address] [place] [address] Ange Chavez MD Pituitary adenoma (HCC) (Primary Dx); Class 3 severe obesity due to excess calories without serious comorbidity with body mass index (BMI) of 40.0 to 44.9 in adult (HCC) 02/02/2024 6:41 AM PROGRAMMING COORDINATOR - 02/02/2024 11:59 PM PROGRAMMING COORDINATOR Hospital Encounter [facility] ([facility]) [address] [place] [phone] Pituitary adenoma (HCC) Discharge Disposition: Discharge to home or self care 01/24/2024 Telephone [place] [address] [facility] [address] [place] [address] Daily Ortega MD Medication Request 01/22/2024 5:00 PM PROGRAMMING COORDINATOR Office Visit [facility]??([facility] [address] [place] [address] [place] [phone] Selam Orosco NP Strain of peroneal tendon of right foot, subsequent encounter (Primary Dx) 01/17/2024 Telephone [facility] [address] [facility] [address] [place] [address] Daily Ortega MD Medical Question/Miscellaneous; Authorization/Certificatio n 01/01/2024 5:23 PM PROGRAMMING COORDINATOR - 01/01/2024 11:59 PM PROGRAMMING COORDINATOR Hospital Encounter [facility] Radiology at [facility] [address] [place] [phone] Acute right ankle pain; Right foot pain Discharge Disposition: Discharge to home or self care 01/01/2024 5:15 PM PROGRAMMING COORDINATOR [facility] [address] [facility] [address] [place] [phone] Selam Orosco NP Acute right ankle pain (Primary Dx); Right foot pain 12/29/2023 9:30 AM PROGRAMMING COORDINATOR Telemedicine [place] [address] [facility] [address] [place] [address] Daily Ortega MD Atypical squamous cell changes of undetermined significance (ASCUS) on cervical cytology with positive 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 papilloma virus (HPV) (Primary Dx); Morbid obesity with BMI of 40.0-44.9, adult (HCC); Pure hypercholesterolemia 12/29/[address] [place] [address] Daily Ortega MD 11/28/2023 Telephone [facility] at [place] [address] [place] [address] [address] [place] [address] Daily Ortega MD 11/23/[address] [place] [address] Daily Ortega MD Test Results 11/23/2023 Telephone [facility] [place] [address] [place] [address] [address] [place] [address] Lauren Carrion MA Medication Request from Last 3 Months Immunizations Name Administration Dates Next Due DTP / HiB 05/14/1992,03/05/1992,1991 DTaP 10/02/1997,12/31/1992 HPV, Quadrivalent 04/17/2009,11/27/2008 HPV, Unspecified 04/17/2009,11/27/2008, 9 Hib (HbOC) 12/31/1992 Influenza, Split 11/27/2008 Influenza, Trivalent, IM (MDV) 04/21/2016 Influenza, Unspecified 12/29/2023(Deferr ed: Patient Refused),11/13/2022(Deferred: Patient Refused),12/06/2021(Deferred: Patient Refused),11/13/2021,11/13/2020(Deferred: Patient decision),12/03/2019,11/14/2019(Deferred: Parental decision),11/13/2018 MMR 10/02/1997,12/31/1992 OPV 10/02/1997,12/31/1992,03/05/1992 ,1991 Surgical History Surgery Date Site/Laterality Comments LAPAROSCOPIC ENDOMETRIOSIS FULGURATION 02/13/2017 - 02/12/2018 WISDOM TOOTH EXTRACTION FOOT SURGERY 02/13/2018 - 02/12/2019 Bilateral 2 left bunion, 1 right bunion- hardware in place left and right foot FOOT SURGERY 07/16/2019 revision left tarsometatarsal joint arthrodesis iliac crest bone graft - Left ABDOMINAL SURGERY Laparoscopic surgery to remove endometriosis TONSILLECTOMY KNEE SURGERY 01/13/2022 - 02/12/2022 meniscus repair KNEE ARTHROSCOPY W/ LATERAL RELEASE 2021, 2020 NASAL ENDOSCOPY FOOT NEUROMA SURGERY 08/14/2023 - 09/13/2023 Left Medical History Medical History Date Comments ADHD (attention deficit hype ractivity disorder) Anxiety Arthritis Depression Gastric reflux GERD (gastroesophageal reflux disease) PRN tums Jaundice / early chi ldhood Kidney stone 2019 Migraines follows with PCP . reports improved somewhat with fioricet started ~2 weeks ago Obesity Pneumonia 12/2019 Seizures (HCC) off medication s casey 2017 with no further seizure activity, EEG negative Seasonal allergies Chronic bronchitis (HCC) PONV (postoperative nausea a nd vomiting) premedicated and scopolamine patch Motion sickness Brain concussion 2010, 2009 Peptic ulceration Reports remote history. PRN tums Low back pain SOB (shortness of breath) Memory loss Irritability Reactive airway disease PRN albu terol and symbicort, well controlled. Reports albuterol use with URI. Lymphedema BLE. on Bumex IIH (idiopathic intracranial hypertension) Pseudotumor cerebri. reports last spinal tap 2017. currently following with PCP, previously has followed with neuro Asthma Hypertension, essential 05/27/2022 Seizure (HCC) 04/25/2017 Allergic rhinitis Sinusitis Ear problems Tinnitus Nosebleed Sleep difficulties Family History Medical History Relation Name Comments Arthritis Father Marbin Depression Father Marbin Hearing loss Father Marbin Heart attack Father Marbin Hypertension Father Marbin Mental illness Father Marbin Vision loss Father Marbin Alcohol abuse Mother Camila Arthritis Mother Camila Bleeding Disorder Mother Camila COPD Mother Camila Depression Mother Camila Diabetes Mother Camila Drug abuse Mother Camila Heart attack Mother Camila Hypertension Mother Camila Kidney disease Mother Camila Mental illness Mother Camila Miscarriages / Stillbirths Mother Camila Seizures Mother Camila Stroke Mother Camila Vision loss Mother Camila Stroke Paternal Grandmother Jie Arthritis Sister 1 Calista Depression Sister 1 Calista Hypertension Sister 1 Calista Mental illness Sister 1 Calista Rashes / Skin problems Sister 1 Calista Seizures Sister 1 Calista Family history of seizures - (Added by TW Conv) Stroke Sister 1 Calista Depression Sister 2 Annie Anesthesia problems Neg Hx Relation Name Status Comments Father Marbin Alive Mother Camila Paternal Grandmother Jie Sister 1 Calista Sister 2 Annie Social History Tobacco Use Types Packs/Day Years [...] on file Legal Sex Female 3:37 PM PROGRAMMING COORDINATOR Gender Identity Female 03/02/2020 4:27 PM PROGRAMMING COORDINATOR Sexual Orientation Straight 07/10/2019 11 :13 PM CDT Obstetrics History Last Filed Vital Signs Vital Sign Reading Time Taken Comments Blood Pressure 116/78 02/02/2024 8:30 AM PROGRAMMING COORDINATOR Pulse 59 02/02/2024 8:30 AM PROGRAMMING COORDINATOR Temperature 36.5 ??C (97.7 ??F) 11/09/2023 3:09 PM CD T Respiratory Rate 17 02/02/2024 8:30 AM PROGRAMMING COORDINATOR Oxygen Saturation 100% 11/09/2023 3:09 PM CDT Inhaled Oxygen Concentration - - Weight 117.9 kg (260 lb) 02/05/2024 3:13 PM PROGRAMMING COORDINATOR Height 170.2 cm (5' 7 ) 02/05/2024 3:13 PM PROGRAMMING COORDINATOR Body Mass Index 40.72 02/05/2024 3:13 PM PROGRAMMING COORDINATOR Plan of Treatment Health Maintenance Due Date Last Done Comments Hepatitis C Screening 1991 Pneumococcal vaccine <65 (1 of 2 - PCV) 09/16/1997 DTaP/Tdap/Td Vaccine (6 - Tdap) 09/16/2002 10/02/1997, 12/31/1992, 05/14/1992, Additional history exists Varicella Vaccines (1 of 2 - 13+ 2-dose series) 09/16/2004 Hepatitis B Screening 09/16/2009 Covid-19 Vaccine (2023-2 5 season) 2023 09/15/2020, 08/25/2020, 05/15/2020 Influenza Vaccine (#1) 2023 , 12/03/2019, 11/13/2018, Additional history exists Cervical Cancer Screening 11/08/2024 11/09/2023, Regular Well Visit/Exam 18-64 11/08/2024 11/09/2023 Depression Screening 12/28/2024 12/29/2023, 11/22/2022, 07/20/2022, Additional history exists HPV Vaccines Completed 04/17/2009, 06/2009, 11/27/2008, Additional history exists Goals Goal Patient Goal Type Associated Problems [...] lifestyle strategies and compensatory methods as needed Medical Devices Implanted Type Area Director Industrial Nursing Device Identifier Shelf Expiration Date Model / Serial / Lot Synthes 207.740 4mm 5mm 40mm Cannulated Self Tap Self Drill Small Hexagonal - S0 - [id number] Implanted:Qty: 1 on 07/16/2019 by Charissa Holley MD at [facility] Screw Left: Foot Synthes I 207.740 / 0 / Synthes 207.730 4mm 5mm 30mm Cannulated Self Tap Self Drill Small Hexagonal - S0 - [id number] Implanted:Qty: 1 on 07/16/2019 by Charissa Holley MD at [facility] Screw Left: Foot Synthes I 207.730 / 0 / Synthes 207.630 4mm 5mm 1.35mm 30mm Cannulated Self Tap Self Drill Small - S0 - [id number] Implanted:Qty: 1 on 07/16/2019 by Charissa Holley MD at [facility] Screw Left: Foot Synthes I 207.630 / 0 / Explanted Type Area Director Industrial Nursing Device Identifier Shelf Expiration Date Model / Serial / Lot [employer] Crosscheck Plate Explanted:Qty: 1 on 07/16/2019 by Charissa Holley MD at [facility] Plate Left: Foot [employer] / 0 / [employer] Crosscheck Screw Explanted:Qty: 5 on 07/16/2019 by Charissa Holley MD at [facility] Screw Left: Foot [employer] / 0 / [employer] [id number] Laxmi .062in 9in 1 Trocar Smooth Wire Fixation - S0 - [id number] Explanted:Qty: 1 on 07/16/2019 by Charissa Holley MD at [facility] Wire Left: Foot [employer] [id number] / 0 / Description:Provisional fixa tion [employer] [id number] [employer] [place] 5/64in 9in Trocar Point One End Pin Fixation Stainless - S0 - [id number] Explanted:Qty: 1 on 07/16/2019 by Charissa Holley MD at [facility] Wire Left: Foot [employer] [id number] / 0 / Description:Provisional Fixa tion Procedures Procedure Name Priority Date/Time Associated Diagnosis Comments CBC WITH AUTO DIFFERENTIAL Routine 02/13/2024 9:20 AM PROGRAMMING COORDINATOR Pure hypercholesterolemia LIPID PANEL Routine 02/13/2024 9:20 AM PROGRAMMING COORDINATOR Pure hypercholesterolemia COMPREHENSIVE METABOLIC PANEL Routine 02/13/2024 9:20 AM PROGRAMMING COORDINATOR Pure hypercholesterolemia THYROID FUNCTION CASCADE Routine 02/13/2024 9:20 AM PROGRAMMING COORDINATOR Pure hypercholesterolemia MRI ABDOMEN LIVER W WO CONTRAST Schedule Routine, Read Routine (OP Routine) 02/05/2024 4:54 PM PROGRAMMING COORDINATOR Liver mass US GALLBLADDER Schedule Routine, Read Routine (OP Routine) 02/05/2024 3:03 PM PROGRAMMING COORDINATOR Right upper quadrant abdominal pain NM HEPATOBILIARY IMAGING W PHARMACEUTICAL INTERVENTION Schedule Routine, Read Routine (OP Routine) 02/05/2024 10:14 AM PROGRAMMING COORDINATOR Right upper quadrant abdominal pain MRI BRAIN W WO CONTRAST (PITUITARY) Schedule Routine, Read Routine (OP Routine) 02/02/2024 8:12 AM PROGRAMMING COORDINATOR Pituitary adenoma (HCC) XR FOOT RIGHT 3 OR MORE VIEWS Schedule Routine, Read Routine (OP Routine) 01/01/2024 5:27 PM PROGRAMMING COORDINATOR Right foot pain XR ANKLE RIGHT 2 VIEWS Schedule Routine, Read Routine (OP Routine) 01/01/2024 5:27 PM PROGRAMMING COORDINATOR Acute right ankle pain PAP WITH REFLEX TO HIGH RISK HPV Routine 11/09/2023 3:20 PM CDT Encounter for well woman exam with routine gynecological exam from Last 3 Months or Most Recently Relevant to Health Maintenance Results * Thyroid Function [place] (02/13/2024 9:20 AM PROGRAMMING COORDINATOR) TSH 4.020 0.450 - 4.500 uIU/mL [facility] - 01 Comment: No apparent thyroid disorder. Additional testing not indicated. In rare instances, Secondary Hypothyroidism as well as Subclinical Hypothyroidism have been reported in some patients with normal TSH values. Blood 02/13/2024 9:20 AM PROGRAMMING COORDINATOR 02/13/2024 Narrative [facility] - 02/14/2024 7:35 AM PROGRAMMING COORDINATOR Performed at: ??01 - [facility] ??[id number] Upsetter Setter Up: Tiago Che PhD, Phone: ??[phone] us Daily Cruz MD LAB BLOOD ORDERABLES Karen prater Result [facility] * CBC with auto differential (02/13/2024 9:20 AM PROGRAMMING COORDINATOR) WBC 9.0 3.4 - 10.8 x10E3/uL [facility] [...] [facility] - 01 Blood 02/13/2024 9:20 AM PROGRAMMING COORDINATOR 02/13/2024 Narrative [facility] - 02/14/2024 7:35 AM PROGRAMMING COORDINATOR Performed at: ?? - [facility] [address] ??[id number] Upsetter Setter Up: Tiago Che PhD, Phone: ??[phone] Daily Cruz MD LAB BLOOD ORDERABLES Karen l Result Performing Organization Address [facility] de Phone Number [facility] * (ABNORMAL) Lipid panel (02/13/2024 9:20 AM PROGRAMMING COORDINATOR) Cholesterol 163 100 - 199 mg/dL [facility] - 01 Triglycerides 75 0 - 149 mg/dL [facility] - 01 HDL Cholesterol 45 >39 mg/dL [facility] - 01 VLDL 14 5 - 40 mg/dL [facility] - 01 LDL, calculated 104(H) 0 - 99 mg/dL [facility] - 01 Blood 02/13/2024 9:20 AM PROGRAMMING COORDINATOR 02/13/2024 Narrative [facility] - 02/14/2024 7:35 AM PROGRAMMING COORDINATOR Performed at: ?? - [facility] [address] ??[id number] Upsetter Setter Up: Tiago Che PhD, Phone: ??[phone] Daily Cruz MD LAB BLOOD ORDERABLES Karen l Result Performing Organization Address [facility] de Phone Number [facility] - * Comprehensive metabolic panel (02/13/2024 9:20 AM PROGRAMMING COORDINATOR) Glucose 79 70 - 99 mg/dL [facility] [...] [facility] - 01 Blood 02/13/2024 9:20 AM PROGRAMMING COORDINATOR 02/13/2024 Narrative [facility] - 02/14/2024 7:35 AM PROGRAMMING COORDINATOR Performed at: ??01 - [facility] [address] ??[id number] Upsetter Setter Up: Tiago Che PhD, Phone: ??[phone] us Daily Cruz MD LAB BLOOD ORDERABLES Karen l Result [facility] - 01 * MRI Abdomen Liver W WO Contrast (02/05/2024 4:54 PM PROGRAMMING COORDINATOR) Anatomical Region Laterality Modality Body N/A Magnetic Resonan ce 02/05/2024 5:34 PM PROGRAMMING COORDINATOR Impressions 02/06/2024 8:07 AM PROGRAMMING COORDINATOR T2 hyperintense enhancing lesion in hepatic segment 4B most characteristic of a flash filling hemangioma Dictated by: Bobby Yuan MD, PHD The radiology attending physician has personally reviewed this study, and had reviewed and/or edited this written report and agrees with it. Electronically signed by: Kyle Quinn M.D. Narrative 02/06/2024 8:07 AM PROGRAMMING COORDINATOR EXAMINATION: MAGNETIC RESONANCE IMAGING OF THE ABDOMEN [...] it. Electronically signed by: Kyle Quinn M.D. us Alecia Shaver JOURNEYMAN ELECTRICIAN PV INSTALLER IMG MRI PROCEDURES Final Resul t * US Gallbladder (02/05/2024 3:03 PM PROGRAMMING COORDINATOR) Anatomical Region Laterality Modality Abdomen N/A Ultrasound 02/05/2024 3:04 PM PROGRAMMING COORDINATOR Impressions 02/05/2024 5:20 PM PROGRAMMING COORDINATOR Normal gallbladder without evidence of cholelithiasis or acute cholecystitis. Dictated by: Janes Ibarra M.D. The radiology attending physician has personally reviewed this study, and had reviewed and/or edited this written report and agrees with it. Electronically signed by: Papo Denson M.D. Narrative 02/05/2024 5:20 PM PROGRAMMING COORDINATOR EXAMINATION: ??LIMITED ABDOMINAL SONOGRAM ??(GALLBLADDER) HISTORY: ??33-year-old woman with persistent right upper quadrant pain. COMPARISON: ??NM 02/05/2024 FINDINGS: ?? Gallbladder: The gallbladder is normal in size. There are no stones or sludge within the gallbladder. There is no gallbladder wall thickening. The gallbladder wall measures 1 mm. There is no pericholecystic fluid. The sonographic Thapa's sign is negative. ? Bile Duct: There is no intrahepatic bile duct dilatation. The diameter of the common duct is 4 mm in the proximal segment and 4 mm in the mid segment and 4 mm in the distal segment. Procedure Note Papo Denson MD - 02/05/2024 EXAMINATION: LIMITED ABDOMINAL SONOGRAM (GALLBLADDER) HISTORY: 33-year-old woman with persistent right upper quadrant pain. COMPARISON: NM 02/05/2024 FINDINGS: Gallbladder: The gallbladder is normal in size. There are no stones or sludge within the gallbladder. There is no gallbladder wall thickening. The gallbladder wall measures 1 mm. There is no pericholecystic fluid. The sonographic Thapa's sign is negative. Bile Duct: There is no intrahepatic bile duct dilatation. The diameter of the common duct is 4 mm in the proximal segment and 4 mm in the mid segment and 4 mm in the distal segment. IMPRESSION: Normal gallbladder without evidence of cholelithiasis or acute cholecystitis. Dictated by: Janes Ibarra M.D. The radiology attending physician has personally reviewed this study, and had reviewed and/or edited this written report and agrees with it. Electronically signed by: Papo Denson M.D. us Aleciabeny Shaver JOURNEYMAN ELECTRICIAN PV INSTALLER IMG US PROCEDURES Final Result * NM Hepatobiliary Imaging W GBEF (02/05/2024 10:14 AM PROGRAMMING COORDINATOR) Anatomical Region Laterality Modality Body N/A Nuclear Medicine 02/05/2024 11:5 1 AM PROGRAMMING COORDINATOR Impressions 02/05/2024 1:14 PM PROGRAMMING COORDINATOR 1. ??Normal contractile response of gallbladder ??to sincalide infusion. 2. ??Normal biliary imaging study. Dictated by: Tammy Schulte MD The radiology attending physician has personally reviewed this study, and had reviewed and/or edited this written report and agrees with it. Electronically signed by: Juan Hess MD, Ph.D Narrative 02/05/2024 1:14 PM PROGRAMMING COORDINATOR EXAMINATION: ??HEPATOBILIARY SCINTIGRAPHY DATE OF STUDY: 02/05/2024 RADIOPHARMACEUTICAL: 3.47 mCi Tc-99m mebrofenin ??i.v. , 2.4 mcg sincalide. HISTORY: 33-year-old woman with right upper quadrant abdominal pain.. The most recently obtained serum total bilirubin was 0.3 mg/dL on 05/25/2023. ??More recent levels are not available. FINDINGS: ??Following intravenous administration of tracer, sequential abdominal images were obtained. There is prompt, uniform accumulation of the tracer by the liver. There is normal filling of the intrahepatic ducts, common bile duct and gallbladder and normal excretion of the tracer into the duodenum. In order to evaluate the contractile response of the gallbladder in response to cholecystokinin, sincalide (0.02 mcg /kg) was administered by slow intravenous infusion over 30 minutes, starting approximately 60 minutes after the administration of the radiopharmaceutical. ??Sequential imaging was continued for 30 minutes after the start of the sincalide infusion. ??These images demonstrate good contraction of the gallbladder. ??The calculated gallbladder ejection fraction is 85.04% (normal greater than 35%). The patient reported no symptoms during Sincalide administration. A screen capture image demonstrating the quantitative results of this study was sent to [facility] by the interpreting physician Dr. Hess. Procedure Note Juan Liu MD PhD - 02/05/2024 EXAMINATION: HEPATOBILIARY SCINTIGRAPHY DATE OF STUDY: 02/05/2024 RADIOPHARMACEUTICAL: 3.47 mCi Tc-99m mebrofenin i.v. , 2.4 mcg sincalide. HISTORY: 33-year-old woman with right upper quadrant abdominal pain.. The most recently obtained serum total bilirubin was 0.3 mg/dL on 05/25/2023. More recent levels are not available. FINDINGS: Following intravenous administration of tracer, sequential abdominal images were obtained. There is prompt, uniform accumulation of the tracer by the liver. There is normal filling of the intrahepatic ducts, common bile duct and gallbladder and normal excretion of the tracer into the duodenum. In order to evaluate the contractile response of the gallbladder in response to cholecystokinin, sincalide (0.02 mcg /kg) was administered by slow intravenous infusion over 30 minutes, starting approximately 60 minutes after the administration of the radiopharmaceutical. Sequential imaging was continued for 30 minutes after the start of the sincalide infusion. These images demonstrate good contraction of the gallbladder. The calculated gallbladder ejection fraction is 85.04% (normal greater than 35%). The patient reported no symptoms during Sincalide administration. A screen capture image demonstrating the quantitative results of this study was sent to [facility] by the interpreting physician Dr. Hess. IMPRESSION: 1. Normal contractile response of gallbladder to sincalide infusion. 2. Normal biliary imaging study. Dictated by: Tammy Schulte MD The radiology attending physician has personally reviewed this study, and had reviewed and/or edited this written report and agrees with it. Electronically signed by: Juan Hess MD, Ph.D us Alecia Shaver NP IMG NM PROCEDURES Final Result * MRI Brain W WO Contrast (Pituitary) (02/02/2024 8:12 AM PROGRAMMING COORDINATOR) Anatomical Region Laterality Modality Head and Neck N/A Magnetic Resonan ce 02/02/2024 9:28 AM PROGRAMMING COORDINATOR Impressions 02/02/2024 9:28 AM PROGRAMMING COORDINATOR Stable since 2022, intrinsically T1 hyperintense 7 mm hypoenhancing nodule along/within the anterior pituitary gland. ??Differential again primarily includes Rathke's cleft cyst versus pituitary microadenoma. Electronically signed by: Marei Leblanc M.D. Narrative 02/02/2024 9:28 AM PROGRAMMING COORDINATOR EXAMINATION: Magnetic resonance imaging (MRI) of the brain and brainstem without and with contrast. HISTORY: Pituitary lesion TECHNIQUE: Multiplanar multi-weighted MRI of the brain and brainstem was performed without without and with intravenous contrast using the pituitary protocol. This included acquisitions showing dynamic contrast enhancement of the sella turcica in the coronal plane and a post-contrast T1-Stealth sequence. Contrast information: 20 mL Gadoterate Meglumine COMPARISON: 12/13/2022 and 02/28/2020 FINDINGS: Dental instrumentation results in substantial artifact that limits evaluation of the face and frontal lobes, but evaluation of the pituitary gland is adequate. Redemonstrated is an intrinsically T1 hyperintense nodule along with the superior aspect of the anterior pituitary gland. ??This nodule currently measures 7 x 5 mm in size, previously the same on 12/13/2022, and again enlarged when compared to 02/28/2020. ?? There may be a small T2 hypointense nodule within the lesion. There is a rim of enhancement surrounding this nodule. ??There is mild rightward deviation of the infundibulum, suggesting that the nodule is just left of midline. The optic chiasm and orbits are normal. The scalp and calvarium are normal. ??The corpus callosum is normal in shape and signal intensity. The posterior fossa is unremarkable. The brainstem and craniocervical junction are unremarkable. The ventricles are normal in size and position without evidence of hydrocephalus. Procedure Note Marie Leblanc MD - 02/02/2024 EXAMINATION: Magnetic resonance imaging (MRI) of the brain and brainstem without and with contrast. HISTORY: Pituitary lesion TECHNIQUE: Multiplanar multi-weighted MRI of the brain and brainstem was performed without without and with intravenous contrast using the pituitary protocol. This included acquisitions showing dynamic contrast enhancement of the sella turcica in the coronal plane and a post-contrast T1-Stealth sequence. Contrast information: 20 mL Gadoterate Meglumine COMPARISON: 12/13/2022 and 02/28/2020 FINDINGS: Dental instrumentation results in substantial artifact that limits evaluation of the face and frontal lobes, but evaluation of the pituitary gland is adequate. Redemonstrated is an intrinsically T1 hyperintense nodule along with the superior aspect of the anterior pituitary gland. This nodule currently measures 7 x 5 mm in size, previously the same on 12/13/2022, and again enlarged when compared to 02/28/2020. There may be a small T2 hypointense nodule within the lesion. There is a rim of enhancement surrounding this nodule. There is mild rightward deviation of the infundibulum, suggesting that the nodule is just left of midline. The optic chiasm and orbits are normal. The scalp and calvarium are normal. The corpus callosum is normal in shape and signal intensity. The posterior fossa is unremarkable. The brainstem and craniocervical junction are unremarkable. The ventricles are normal in size and position without evidence of hydrocephalus. IMPRESSION: Stable since 2022, intrinsically T1 hyperintense 7 mm hypoenhancing nodule along/within the anterior pituitary gland. Differential again primarily includes Rathke's cleft cyst versus pituitary microadenoma. Electronically signed by: Marie Leblanc M.D. Ange Chavez MD IMG MRI PROCEDURES F inal Result * XR Foot Right 3+ View (01/01/2024 5:27 PM PROGRAMMING COORDINATOR) Anatomical Region Laterality Modality Lower Extremities, Foot Right Computed Radiography 01/02/2024 5:59 AM PROGRAMMING COORDINATOR Impressions 01/02/2024 5:59 AM PROGRAMMING COORDINATOR 1. ??Unchanged solidly fuse/healed instrumented 1st tarsometatarsal joint arthrodesis and great toe proximal phalanx osteotomy Electronically signed by: Julio C Estrada MD, PHD Narrative 01/02/2024 5:59 AM PROGRAMMING COORDINATOR EXAMINATION: Right ankle 2 views; right foot 3+ views HISTORY: ??Right foot pain FINDINGS: Three-view weightbearing examination right foot and 2 weightbearing radiographs of the right ankle compared to prior radiographs from 08/30/2021. ??The solidly fused/healed, instrumented 1st tarsometatarsal joint arthrodesis with multiple plate and screw fixation and great toe proximal phalanx osteotomy with screw fixation appear unchanged. ??The remainder the joint spaces appear normal. There is no acute fracture or stress reaction. ??Small heel spur is present. Procedure Note Julio C Estrada MD PhD - 01/02/2024 EXAMINATION: Right ankle 2 views; right foot 3+ views HISTORY: Right foot pain FINDINGS: Three-view weightbearing examination right foot and 2 weightbearing radiographs of the right ankle compared to prior radiographs from 08/30/2021. The solidly fused/healed, instrumented 1st tarsometatarsal joint arthrodesis with multiple plate and screw fixation and great toe proximal phalanx osteotomy with screw fixation appear unchanged. The remainder the joint spaces appear normal. There is no acute fracture or stress reaction. Small heel spur is present. IMPRESSION: 1. Unchanged solidly fuse/healed instrumented 1st tarsometatarsal joint arthrodesis and great toe proximal phalanx osteotomy Electronically signed by: Julio C Estrada MD, PHD us Selam Orosco JOURNEYMAN ELECTRICIAN PV INSTALLER IMG XR PROCEDURES Final Resul t * XR Ankle Right 2 Views (01/01/2024 5:27 PM PROGRAMMING COORDINATOR) Anatomical Region Laterality Modality Lower Extremities, Ankle Right Compute d Radiography 01/02/2024 5:59 AM PROGRAMMING COORDINATOR Impressions 01/02/2024 5:59 AM PROGRAMMING COORDINATOR 1. ??Unchanged solidly fuse/healed instrumented 1st tarsometatarsal joint arthrodesis and great toe proximal phalanx osteotomy Electronically signed by: Julio C Estrada MD, PHD Narrative 01/02/2024 5:59 AM PROGRAMMING COORDINATOR EXAMINATION: Right ankle 2 views; right foot 3+ views HISTORY: ??Right foot pain FINDINGS: Three-view weightbearing examination right foot and 2 weightbearing radiographs of the right ankle compared to prior radiographs from 08/30/2021. ??The solidly fused/healed, instrumented 1st tarsometatarsal joint arthrodesis with multiple plate and screw fixation and great toe proximal phalanx osteotomy with screw fixation appear unchanged. ??The remainder the joint spaces appear normal. There is no acute fracture or stress reaction. ??Small heel spur is present. Procedure Note Julio C Estrada MD PhD - 01/02/2024 EXAMINATION: Right ankle 2 views; right foot 3+ views HISTORY: Right foot pain FINDINGS: Three-view weightbearing examination right foot and 2 weightbearing radiographs of the right ankle compared to prior radiographs from 08/30/2021. The solidly fused/healed, instrumented 1st tarsometatarsal joint arthrodesis with multiple plate and screw fixation and great toe proximal phalanx osteotomy with screw fixation appear unchanged. The remainder the joint spaces appear normal. There is no acute fracture or stress reaction. Small heel spur is present. IMPRESSION: 1. Unchanged solidly fuse/healed instrumented 1st tarsometatarsal joint arthrodesis and great toe proximal phalanx osteotomy Electronically signed by: Julio C Estrada MD, PHD Selam rOosco [employer] INSTALLER IMG XR PROCEDURES Final Resul t * (ABNORMAL) Pap with reflex to High Risk HPV and Genotyping (Cytology Component) (11/09/2023 3:20 PMCDT) Thin prep (Pap test) 11/09/2023 3:20 PM CDT 11/10/2023 12:14 AM CDT Narrative PATHOLOG[facility] - 11/20/2023 8:08 PM CDT EPIC results best viewed via link to PDF [facility] [place] [place] [address] Note to Patients: This report may contain a detailed description of human tissue sent by a health care provider to the laboratory for pathologic evaluation. The content of this report is essential for diagnosis and may provide important critical findings. This information may be unfamiliar to patients to review without a medical professional present. It is advised that the patient review this report in the presence of a health care provider who can answer questions and explain the details. CYTOPATHOLOGY REPORT FINAL WITH ADDENDUM Patient Name: ??JUD CROCKER Gender: ??F : ??1990 (Age: 33) Address: ??[address], [place], [place] ??[address] Hospital #: ??[id number] Service: ??UNKNOWN Location: ?? Patient Type: ??[facility] SPECIMEN Taken: ??11/09/2023 Received: ??11/10/2023 Accessioned: ??11/13/2023 Reported: ??11/20/2023 Physician(s): ??Dr. Daily Cruz M.D. ?? FINAL INTERPRETATION SOURCE OF SPECIMEN ? Liquid based Thin Prep pap with Reflex HPV: STATEMENT OF ADEQUACY ?- Satisfactory for evaluation ?- Endocervical cells/transformation zone sample present ? GENERAL CATEGORIZATION: ?- EPITHELIAL CELL ABNORMALITY ? INTERPRETATION: ?- Atypical squamous cells of undetermined significance ? rcwp/11/20/2023 20:08 By this signature, I attest that the above diagnosis is based upon my personal examination of the slides(and/or other material indicated in the diagnosis). ? Milagro Boss M.D. Report Electronically Reviewed and Signed Out By Néstor Alberto DO 11/20/2023 20:08:31 Fabiola Carrion MS, CT (ASCP) Cervicovaginal Cytology (Pap Test) Disclaimer: The Pap test is a screening test used to detect cervical cancer and its precursors; it is not a diagnostic procedure. False negative and false positive results do occur. Pap test results should be interpreted in the context of pertinent clinical information and biopsy results as indicated. CMS Clinical Laboratory Improvement Amendments (CLIA) mandate that cytologic and histologic results be correlated for laboratory quality control clerk & improvement standards. ??FOR ALL HIGH-GRADE CASES we request submission of follow-up histological material and/or reports that have not been previously provided so that we may fulfill said required standards. ?? Gross Description A. ??Liquid based Thin Prep pap with Reflex HPV: ??Cervical/vaginal - Screening ThinPrep Clinical Diagnosis and History Last Menstrual Period: unknown The patient is a 33 year old female with screening. Addenda Addendum Ordered:11/22/2023Status:Signed OutAddendum Complete:11/22/2023y:Milagro Boss M.D.Addendum Signed Out:11/23/2023 Addendum Comment Addendum created to add HPV results (Abnormal-Positive for High Risk HPV) HPV HR 16- NOT DETECTED ?? HPV HR 18- NOT DETECTED HPV HR NON 16/18- DETECTED Interpretive Data Nucleic acid amplification for detection of high-risk Human Papilloma virus (HPV) is performed by the Chriss Maria L 6800 HPV test. ??This assay specifically detects HPV-16 and HPV-18 genotypes. ??The following HPV genotypes are detected as high-risk HPV: HPV-31, 33, 35, 39, 45, 51, 52, 56, 58, 59, 66, and 68. ??This assay has been approved by the [place] Food and Drug Administration for detection of HPV in cervical specimens collected by a physician using an endocervical brush/spatula or cervical broom and placed in the ThinPrep Pap Test PreservCyt collection containers. ??The performance characteristics of this test have been verified by the [facility] Infectious Disease laboratory. ??Correlate with reported cytology results, as applicable. Interpretive data last revised 22 By this signature, I attest that the above diagnosis is based upon my personal examination of the slides(and/or other material indicated in the diagnosis). Milagro Boss M.D.Report Electronically Reviewed and Signed Out By ??Milagro Boss M.D. ??11/23/2023 10:36:56 ?? Report Images and scanned documents, if included only viewable in PDF version The performance characteristics of some immunohistochemical stains, in-situ hybridization and fluorescence in-situ hybridization tests and immunophenotyping by flow cytometry cited in this report (if any) were determined by the Surgical Pathology Department at [facility] as part of an ongoing quality controller program and in compliance with federally mandated regulations drawn from the Clinical Laboratory Improvement Act of 1988 (CLIA '88). ??Some of these tests rely on the use of analyte specific reagents and are subject to specific labeling requirements by the [place] Food and Drug Administration. ??Such diagnostic tests may only be performed in a facility that is certified by the Department of Health and Human Services as a high complexity laboratory under CLIA . ??The FDA has determined that such clearance or approval is not necessary. ??This test is used for clinical purposes. ??It should not be regarded as investigational or for research. ??Nevertheless, federal rules concerning the medical use of analyte specific reagents require that the following disclaimer be attached to the report: This test was developed and its performance characteristics determined by the Surgical Pathology Department of [facility]. ??It has not been cleared or approved by the U. S. Food and Drug Administration. Daily Cruz MD LAB CYTOLOGY ORDERABLES F inal Result Performing Organization Address [facility]/State[facility] Co de Phone Number PATHOLOGY [facility] from Last 3 Months or Most Recently Relevant to Health Maintenance Insurance [facility] [employer] [facility] H[facility]/PPO Address: [facility] [id number] [place] [id number] [facility] [employer] [facility] H[facility]/PPO Address: [address] [place] [address] [place] [address] [facility] CHO[employer] [facility] H[facility]/PPO Address: [place] [address] Care Teams [employer] Supervisor Relationship Specialty Start Date End Date Daily Cruz MD PCP - General Family Medicine 03/04/21 Savannah Holt PA [address] [facility] NE[facility] [address] [address] Physician Demurrage Worker Neurology 06/07/23 Ange Chavez MD [address] [facility] [address] [address] Consulting Physician Endocrinology 06/07/23
--- OUTSIDE RECORDS SUMMARY | 2024-02-21 19:32 | XMS_ITS | Patient Health Record ---
Author Organization [facility] Address [address] [place] [address] Care Team Providers Care Document Reviewer Name Role Phone Nancy DIAZ, Daily Primary Care Provider Un available Dr. Jakub Burger Unavailable [phone] Jenna Mares Unavailable Unavailable Shellie Cobb Unavailable [phone] Yoko Guadalupe Unavailable [phone] Allergies Allergen (clinical drug ingredient) Drug/Non Drug Allergy documented on EMR Reaction Allergy Type Onset Date Status levetiracetam Keppra other reaction Drug Allergy Active acetazolamide acetaZOLAMIDE other reaction Drug Allergy Active dihydroergotamine Dihydroergotamine other reaction Drug Allergy Active hydrochlorothiazide hydroCHLOROthiazide other reaction Drug Allergy Active topiramate Topiramate other reaction Drug Allergy Active Results Component Value Reference Range Notes Spirometry Reviewed date:08/17/2023 02:37:55 PM Interpretation:Normal Performing Lab: Notes/Report: Normal SpiroPreBronchodilator_FVC 3.25 SpiroPostBronchodilator_FEF25_75 0 SpiroPreBronchodilator_FEF25_75 3.9 SpiroPreBronchodilator_FEV1 2.91 SpiroPrecentPredictionPost_F EF25 _75 0 SpiroPrecentPredictionPost_FEV1 0 SpiroPrecentPredictionPost_F EV1_ OVER_FVC 0 SpiroPrecentPredictionPost_FVC 0 SpiroPrecentPredictionPre_FE F25_ 75 102.6 SpiroPrecentPredictionPre_FEV1 88.7 SpiroPrecentPredictionPre_FE V1_O VER_FVC 104.8 SpiroPrecentPredictionPre_FVC 84.4 SpiroPredicted_FEF25_75 3.8 SpiroPreBronchodilator_FEV1_ OVER _FVC 89.52 SpiroPreBronchodilator_PEF 6.79 SpiroPostBronchodilator_FVC 0 SpiroPostBronchodilator_FEV1 0 SpiroPostBronchodilator_FEV1 _OVE R_FVC 0 SpiroPostBronchodilator_PEF 0 SpiroPredicted_FVC 3.85 SpiroPredicted_FEV1 3.28 SpiroPredicted_FEV1_OVER_FVC 85.42 SpiroPredicted_PEF 6.58 -Tetanus/Diphtheria Ab Reviewed date:09/18/2023 07:39:44 AM Interpretation:Normal Performing Lab:[address] [id number], Phone - [phone], Director - [facility] Notes/Report: Tetanus Antitoxoid IgG Ab 0.77 <0.10 IU/mL Interpretation: Non-Protective <0.10 Protective >=0.10 Results for this test are for research purposes only by the assay's heavy truck technician. The performance characteristics of this product have not been established. Results should not be used as a diagnostic procedure without confirmation of the diagnosis by another medically established diagnostic product or procedure. Diphtheria Antitoxoid Ab 0.37 <0.10 IU/mL Interpretation: Non-Protective <0.10 Protective >=0.10 . For research use only. -Haemophilus influenzae B Ig G Reviewed date:09/14/2023 08:11:35 AM Interpretation:Abnormal Performing Lab:[address] [id number], Phone - [phone], Director - [facility] Notes/Report: Haemophilus influenzae B IgG <0.15 NOTE: An anti-Hib level of 0.15 ug/mL is generally accepted as the minimum level for protection. Optimal protection post-vaccination requires a level greater than 1.00 ug/mL. -Pneumococcal Ab (23 Serotyp e) Reviewed date:09/18/2023 07:39:36 AM Interpretation:Abnormal Performing Lab:[place], [address], [facility], [place], [place] [id number], Phone - [phone], [facility]Report: Pneumo Ab Type 1* 2.5 >1.3 ug/mL Pneumo Ab Type 3* 0.3 >1.3 ug/mL Pneumo Ab Type 4* 0.1 >1.3 ug/mL Pneumo Ab Type 8* <0.3 >1.3 ug/mL Pneumo Ab Type 9 (9N)* 2.2 >1.3 ug/mL Pneumo Ab Type 12 (12F)* <0.1 >1.3 ug/mL Pneumo Ab Type 14* 0.3 >1.3 ug/mL Pneumo Ab Type 17 (17F)* 2.3 >1.3 ug/mL Pneumo Ab Type 19 (19F)* 2.3 >1.3 ug/mL Pneumo Ab Type 2* 6.9 >1.3 ug/mL Pneumo Ab Type 20* 1.0 >1.3 ug/mL Pneumo Ab Type 22 (22F)* 0.6 >1.3 ug/mL Pneumo Ab Type 23 (23F)* <0.1 >1.3 ug/mL Pneumo Ab Type 26 (6B)* <0.1 >1.3 ug/mL Pneumo Ab Type 34 (10A)* 0.8 >1.3 ug/mL Pneumo Ab Type 43 (11A)* 0.3 >1.3 ug/mL Pneumo Ab Type 5* 0.3 >1.3 ug/mL Pneumo Ab Type 51 (7F)* <0.1 >1.3 ug/mL Pneumo Ab Type 54 (15B)* 0.7 >1.3 ug/mL Pneumo Ab Type 56 (18C)* 3.5 >1.3 ug/mL Pneumo Ab Type 57 (19A)* 5.5 >1.3 ug/mL Pneumo Ab Type 68 (9V)* 0.4 >1.3 ug/mL Pneumo Ab Type 70 (33F)* 2.3 >1.3 ug/mL *This test was developed and its performance characteristics determined by [employer]. It has not been cleared or approved by the U.S. Food and Drug Administration. FLAG Interpretation: A = Abnormal, H = High, L = Low -Immunoglobulins A/G/M, Qn, Ser Reviewed date:09/12/2023 01:23:24 PM Interpretation:Normal [facility]forming [facility], [address] [place] [id number], Phone - [phone], Director - [facility] Notes/Report: Immunoglobulin G, Qn, Serum 3860 054-3013 mg/d L Immunoglobulin A, Qn, Serum 189 87-352 mg/dL Immunoglobulin M, Qn, Serum 78 26-217 mg/dL -Vitamin D, 25-Hydroxy Reviewed date:09/12/2023 10:44:09 AM Interpretation:Abnormal Performing Lab:[facility], [address], [place] [id number], Phone - [phone], Director - [facility] Notes/Report: Vitamin D, 25-Hydroxy 22.1 30.0-100.0 ng/mL Vitamin D deficiency has been defined by the Reading of Medicine and an Endocrine Society practice guideline as a level of serum 25-OH vitamin D less than 20 ng/mL (1,2). The Endocrine Society went on to further define vitamin D insufficiency as a level between 21 and 29 ng/mL (2). 1. IOM (Reading of Medicine). 2010. Dietary reference intakes for calcium and D. [place]: The National Academies Press. 2. Arian MF, Frederic TELLES, Clari GAGNON, et al. Evaluation, treatment, and prevention of vitamin D deficiency: an Endocrine Society clinical practice guideline. JCEM. 2010; 96(7):1911-30. -Tryptase (021009) Reviewed date:09/14/2023 12:40:17 PM Interpretation:Normal Performing Lab:[facility] [id number], Phone - [phone], Director - [facility] Notes/Report: Tryptase 2.8 2.2-13.2 ug/L -Haemophilus influenzae B Ig G Reviewed date:02/20/2024 12:16:47 PM Interpretation: Performing Lab:[facility] [id number], Phone - [phone], Director - [facility] Notes/Report: Haemophilus influenzae B IgG 2.84 NOTE: An anti-Hib level of 0.15 ug/mL is generally accepted as the minimum level for protection. Optimal protection post-vaccination requires a level greater than 1.00 ug/mL. 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) Referral Organization [facility] Referring Provider First Name Jakub Referring Provider Last Name Tao Referring Provider Speciality Neurology Referred Organization [facility] Referred Provider Reji Burger Referred Address [address] [place] [id number], Referred Provider Specialty Neurology Referral Priority Routine Medications Medication SIG (Take, Route, Frequency, Duration) Notes Start Date End Date Status Multivitamin Active Nasal Wash - as directed Nasally Active Fluticasone Propionate HFA 44 MCG/ACT 1 puff Inhalation Twice a day for 30 days 08/14/2023 Active Ryaltris 665-25 MCG/ACT 4 sprays (2 spra ys in each nostril) Nasally Twice a day for 30 days Active Vitamin D3 1.25 MG (62884 UT) 1 capsule Orally Once per week for 56 days 01/01/2024 Active Zavzpret 10 MG/ACT 1 spray Nasally once, no repeat dose for 30 days As needed for migraine 08/10/2023 Active Botox Cosmetic 50 UNIT as directed Intramuscular Active Ventolin HFA 108 (90 Base) MCG/ACT 1 puff as needed Inhalation every 4 hrs Active Immunizations Vaccine Route Administration Date Status Comme nts NOC Pneumovax 23 IM Intramuscular 12/25/2023 Administered Pedvax Hib IM Intramuscular 12/25/2023 Administered Social History Tobacco Use: Social History Observation Description Date Details (start date - stop date) Never Smoker NA - NA Smoking Smart Form: Question Answer Notes Are you a: never smoker Additional Findings:Tobacco Non-User Aggressive non-smoker Tobacco Control (Standard) Question Answer Notes Tobacco use: Nonsmoker Problems Problem Type SNOMED Code ICD Code Onset Dates Problem Status W/U Status Risk Notes Problem Vitamin D deficiency (22417787) Vitamin D deficiency, unspecified (E55.9) Active confirmed Problem Idiopathic orofacial dystonia (544393046) 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) Active confirmed Problem Chronic migraine without aura, non-refractory (disorder) (052594138755073) Migraine without aura, not intractable, without status migrainosus (G43.009) Active confirmed Problem Chronic allergic conjunctivitis (51923736) Other chronic allergic conjunctivitis (H10.45) Active confirmed Problem Allergic rhinitis caused by pollen (disorder) (17209186) Allergic rhinitis due to pollen (J30.1) Active confirmed Problem Allergic rhinitis (26617992) Other allergic rhinitis (J30.89) Active confirmed Problem Chronic sinusitis (85175385) Other chronic sinusitis (J32.8) Active confirmed Problem Chronic sinusitis (11904376) Chronic sinusitis, unspecified (J32.9) Active confirmed Problem Restlessness and agitation (463389285) Restlessness and agitation (R45.1) Active confirmed Problem Allergic rhinitis caused by animal hair and dander (511490082167492) Allergic rhinitis due to animal (cat) (dog) hair and dander (J30.81) Active confirmed Vital Signs Respiratory Rate 18 /min 09/11/2023 Blood pressure diastolic 81 mm Hg 12/25/2023 Oximetry 99 % 12/25/2023 Height 65 in 12/25/2023 Blood pressure systolic 150 mm Hg 12/25/2023 Weight 266.0 lbs 12/25/2023 BMI 44.26 kg/m2 12/25/2023 Encounters Encounter Location Date Provider Diagnosis [facility] [address] [place] [id number] 08/10/2023 Jakub Burger Migraine without aur a, not intractable, without status migrainosus G43.009 and 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 [address] 08/14/2023 Shellie Cobb Allergic rhinitis du e to pollen J30.1 ; Allergic rhinitis due to animal (cat) (dog) hair and dander J30.81 ; Other allergic rhinitis J30.89 ; Other chronic allergic conjunctivitis H10.45 ; Shortness of breath R06.02 ; Chronic sinusitis, unspecified J32.9 ; Vitamin D deficiency, unspecified E55.9 ; Unspecified abdominal pain R10.9 ; Localized swelling, mass and lump, lower limb, bilateral R22.43 and Elevated blood-pressure reading, without diagnosis of hypertension R03.0 [address] [address] [place] [address] 09/07/2023 Jakub Vallejoer 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 [address] 09/11/2023 Shellie Cobb Allergic rhinitis du e to pollen J30.1 ; Allergic rhinitis due to animal (cat) (dog) hair and dander J30.81 ; Other allergic rhinitis J30.89 ; Other chronic allergic conjunctivitis H10.45 ; Shortness of breath R06.02 ; Chronic sinusitis, unspecified J32.9 ; Vitamin D deficiency, unspecified E55.9 ; Unspecified abdominal pain R10.9 ; Localized swelling, mass and lump, lower limb, bilateral R22.43 ; Restlessness and agitation R45.1 and Elevated blood-pressure reading, without diagnosis of hypertension R03.[address] [address] 12/07/2023 Yoko Guadalupe 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 [address] 12/25/2023 Shellie Cobb Allergic rhinitis du e to pollen J30.1 ; Allergic rhinitis due to animal (cat) (dog) hair and dander J30.81 ; Other allergic rhinitis J30.89 ; Other chronic allergic conjunctivitis H10.45 ; Shortness of breath R06.02 ; Chronic sinusitis, unspecified J32.9 ; Vitamin D deficiency, unspecified E55.9 ; Unspecified abdominal pain R10.9 ; Encounter for immunization Z23 ; Localized swelling, mass and lump, lower limb, bilateral R22.43 ; Restlessness and agitation R45.1 ; Unspecified voice and resonance disorder R49.9 and Elevated blood-pressure reading, without diagnosis of hypertension R03.0 [facility] [address] [place] [address] 08/16/2023 Shellie Cobb [facility] [address] [place] [address] 08/30/2023 Shellie Cobb [address] [address] 10/31/2023 Shellie Cobb Shortness of breath R06.02 [facility] [address] [facility] [address] [place] [address] 11/02/2023 Jakub Tao [facility] [address] [place] [address] 01/01/2024 Jakub Burger Vitamin D deficiency , unspecified E55.9 Assessments Encounter Date Diagnosis (ICD Code) Assessment Notes Treatment Notes Treatment Clinical Notes Section Notes 08/10/2023 Idiopathic orofacial dystonia (ICD-10 - G24.4) PA for Botox 100 Units; plan 20 Units B masseter, 20 Units B temporalis. 08/10/2023 Migraine without aura, not intractable, without status migrainosus (ICD-10 - G43.009) -Abortive treatment plan: Zavzpret NS. -Preventive treatment plan: Magnesium/Riboflavi n supplements, no prescription preventive.-Educate d the patient on migraine lifestyle recommendations. I recommended the following measures: avoid known triggers of migraine, drink > 100 fluid ounces of non-caffeinated fluid daily, limit caffeine to 2 servings/day, sleep 7-8 hours/night and address any sleep concerns with us and report symptoms of snoring or fatigue; healthy management of stress; avoid treating headaches more than 2 days/week with abortive medication unless approved in treatment plan; can take Riboflavin 400 mg and Magnesium 500 mg daily as supplements; keep scheduled follow-up appointments 08/14/2023 Allergic rhinitis due to pollen (ICD-10 - J30.1) Given the history and symptoms, skin testing was performed to common aeroallergens to determine atopic status. Jud clearly suffers from atopic disease based upon our skin testing and clinical history. Accordingly, we have introduced a new, aggressive medication regimen, discussed nasal washes and allergy-specific avoidance measures. We also discussed adjunctive therapies including subcutaneous, specific allergen immunotherapy as relates to the treatment and prevention of atopic disease. She is currently considering the risks, benefits and alternatives to this care. Risks: bleeding, infection, allergic reaction, anaphylaxis; Benefits: reduced need for medications, improved symptoms, disease modification. Alternatives: watch/wait, change medication regimen, improve allergy avoidance measures. - Will trial Ryaltris nasal spray. Jud was previously on daily Sravanthi, montelukast and various nasal sprays. She did not find these beneficial, felt she was on too many medications that caused systemic side effects. - Jud was previously on IT at [facility], records requested. - Follow-up in 4-6 weeks for further evaluation and management 08/14/2023 Allergic rhinitis due to animal (cat) (dog) hair and dander (ICD-10 - J30.81) Follow allergen avoidance, meds and consider SCIT as an adjunctive treatment to current regimen 09/07/2023 Idiopathic orofacial dystonia (ICD-10 - G24.4) 09/11/2023 Allergic rhinitis due to pollen (ICD-10 - J30.1) Jud clearly suffers from atopic disease based upon our skin testing and clinical history. Accordingly, we have encouraged her medication regimen, discussed nasal washes and allergy-specific avoidance measures. We also discussed adjunctive therapies including subcutaneous, specific allergen immunotherapy as relates to the treatment and prevention of atopic disease. - Discussed trial of Ryaltris nasal spray last visit, she has yet to start this. Jud was previously on daily Sravanthi, montelukast and various nasal sprays. She did not find these beneficial, felt she was on too many medications that caused systemic side effects. - Jud was previously on IT at [facility], 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 - Follow-up in 2-3 months for further evaluation 09/11/2023 Allergic rhinitis due to animal (cat) (dog) hair and dander (ICD-10 - J30.81) Follow allergen avoidance, meds and consider SCIT as an adjunctive treatment to current regimen 10/31/2023 Shortness of breath (ICD-10 - R06.02) 12/07/2023 Idiopathic orofacial dystonia (ICD-10 - G24.4) 12/25/2023 Allergic rhinitis due to pollen (ICD-10 - J30.1) Jud clearly suffers from atopic disease based upon our skin testing and clinical history. Accordingly, we have encouraged her medication regimen, discussed nasal washes and allergy-specific avoidance measures. We also discussed adjunctive therapies including subcutaneous, specific allergen immunotherapy as relates to the treatment and prevention of atopic disease. - Discussed trial of Ryaltris nasal spray last visit, she has yet to start this. Jud was previously on daily Sravanthi, montelukast and various nasal sprays. She did not find these beneficial, felt she was on too many medications that caused systemic side effects. - Jud feels her upper airway symptoms are controlled at this time. - Jud was previously on IT at [facility], 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 - Follow-up in 3-4 months for further evaluation 12/25/2023 Allergic rhinitis due to animal (cat) (dog) hair and dander (ICD-10 - J30.81) Follow allergen avoidance, meds and consider SCIT as an adjunctive treatment to current regimen 01/01/2024 Vitamin D deficiency, unspecified (ICD-10 - E55.9) 12/25/2023 Other allergic rhinitis (ICD-10 - J30.89) Follow allergen avoidance, meds and consider SCIT as an adjunctive treatment to current regimen 09/11/2023 Other allergic rhinitis (ICD-10 - J30.89) Follow allergen avoidance, meds and consider SCIT as an adjunctive treatment to current regimen 08/14/2023 Other allergic rhinitis (ICD-10 - J30.89) Follow allergen avoidance, meds and consider SCIT as an adjunctive treatment to current regimen 08/14/2023 Other chronic allergic conjunctivitis (ICD-10 - H10.45) Given ocular signs and symptoms I encouraged allergy avoidance measures and meds as above. If symptoms persist, consider adding additional medications including intraocular antihistamine/mast cell stabilizer, PRN and consider SCIT as an adjunctive measure 09/11/2023 Other chronic allergic conjunctivitis (ICD-10 - H10.45) Given ocular signs and symptoms I encouraged allergy avoidance measures and meds as above. If symptoms persist, consider adding additional medications including intraocular antihistamine/mast cell stabilizer, PRN and consider SCIT as an adjunctive measure 12/25/2023 Other chronic allergic conjunctivitis (ICD-10 - H10.45) Given ocular signs and symptoms I encouraged allergy avoidance measures and meds as above. If symptoms persist, consider adding additional medications including intraocular antihistamine/mast cell stabilizer, PRN and consider SCIT as an adjunctive measure 09/11/2023 Shortness of breath (ICD-10 - R06.02) Jud reports occasional cough and shortness of breath. Symptoms are easily triggered by illness and various environmental exposures. She has been on Breo and Advair Diskus in the past, however felt these worsened her symptoms. She is currently carrying a rescue inhaler, with use a few times per month. ACT is 24 today. - Spirometry obtained last visit that showed normal FEV1, FVC and FEV%. - After discussion, will trial low-dose ICS via HFA. Jud was unable to pick this up from her pharmacy due to an insurance issue. Order sent again today. To be used with AeroChamber. Proper demonstration provided last visit. Oral hygiene reviewed. - Continue TADEO as-needed per AAP. - Follow-up in 2-3 months for further evaluation and management 08/14/2023 Shortness of breath (ICD-10 - R06.02) Jud reports occasional cough and shortness of breath. Symptoms are easily triggered by illness and various environmental exposures. She has been on Breo and Advair Diskus in the past, however felt these worsened her symptoms. She is currently carrying a rescue inhaler, with use a few times per month. ACT is 20. - Spirometry obtained that showed normal FEV1, FVC and FEV%. - After discussion, will trial low-dose ICS via HFA. To be used with AeroChamber. Proper demonstration provided today. Oral hygiene reviewed. - Continue TADEO as-needed per AAP. - Follow-up in 4 weeks for further evaluation and management 12/25/2023 Shortness of breath (ICD-10 - R06.02) Jud reports occasional cough and shortness of breath. Symptoms are easily triggered by illness and various environmental exposures. She has been on Breo and Advair Diskus in the past, however felt these worsened her symptoms. She is currently carrying a rescue inhaler, with use a few times per month. ACT is 24 today. - Spirometry obtained at a prior visit that showed normal FEV1, FVC and FEV%. - After discussion, discussed trial low-dose ICS via HFA. Jud was unable to pick this up due to insurance, she did not contact the office. She does not want to trial a daily inhaler at this time. - Continue TADEO as-needed per AAP. - Follow-up in 3-4 months for further evaluation and management 09/11/2023 Chronic sinusitis, unspecified (ICD-10 - J32.9) Jud reports sinus infections multiple times per year requiring antibiotics meeting JMF criteria for modified PIDD work-up. Will plan on boosters/vitamin D supplementation based on results - Reminded Jud to have labs drawn 12/25/2023 Chronic sinusitis, unspecified (ICD-10 - J32.9) Jud reports sinus infections multiple times per year requiring antibiotics meeting F criteria for modified PIDD work-up. - Work-up shows inadequatoe protection to S. pneumo and H. influenzae, recommend Pneumovax and HiB boosters with repeat titers in 4-6 weeks. Jud obtained immunizations today, orders transmitted to [facility] 08/14/2023 Chronic sinusitis, unspecified (ICD-10 - J32.9) Jud reports sinus infections multiple times per year requiring antibiotics meeting JMF criteria for modified PIDD work-up. Will plan on boosters/vitamin D supplementation based on results 08/14/2023 Vitamin D deficiency, unspecified (ICD-10 - E55.9) For immune work-up as above 09/11/2023 Vitamin D deficiency, unspecified (ICD-10 - E55.9) For immune work-up as above 12/25/2023 Vitamin D deficiency, unspecified (ICD-10 - E55.9) Low vitamin D at 22 mg/dL. Plan to start 50,000 IU of vitamin D/ week for 8 weeks, followed by 5,000 IU/day for 4 weeks. Discussed taking vitamin D with a fatty meal. Will recheck level in 12 weeks 12/25/2023 Unspecified abdominal pain (ICD-10 - R10.9) Jud reports concern for various cl intolerances due to abdominal pain, fatigue, nausea and vomiting. She recently completely removed gluten from her diet, which has been beneficial. She is seen by GI managed by Dr. Fleming. - Discussed that symptoms described are not consistent with an IgE-mediated hypersensitivity reaction. No associated facial swelling, skin changes or lower airway symptoms. Briefly discussed MCAS, however no history of hives/swelling/anap hylaxis. Will order baseline tryptase level for further evaluation. - Discussed strict food journal and elimination diet. - Continue recommendations per GI 08/14/2023 Unspecified abdominal pain (ICD-10 - R10.9) Jud reports concern for various cl intolerances due to abdominal pain, fatigue, nausea and vomiting. She recently completely removed gluten from her diet, which has been beneficial. She is seen by GI managed by Dr. Fleming. - Discussed that symptoms described are not consistent with an IgE-mediated hypersensitivity reaction. No associated facial swelling, skin changes or lower airway symptoms. Briefly discussed MCAS, however no history of hives/swelling/anap hylaxis. Will order baseline tryptase level for further evaluation. - Discussed strict food journal and elimination diet. - Continue recommendations per GI 09/11/2023 Unspecified abdominal pain (ICD-10 - R10.9) Jud reports concern for various cl intolerances due to abdominal pain, fatigue, nausea and vomiting. She recently completely removed gluten from her diet, which has been beneficial. She is seen by GI managed by Dr. Fleming. - Discussed that symptoms described are not consistent with an IgE-mediated hypersensitivity reaction. No associated facial swelling, skin changes or lower airway symptoms. Briefly discussed MCAS, however no history of hives/swelling/anap hylaxis. Will order baseline tryptase level for further evaluation. - Discussed strict food journal and elimination diet. - Continue recommendations per GI 09/11/2023 Localized swelling, mass and lump, lower limb, bilateral (ICD-10 - R22.43) Jud reports episodes of lower extremity edema, currently managed by her PCP. - Recommend cardiac evaluation, appreciate PCP arranging 12/25/2023 Encounter for immunization (ICD-10 - Z23) As above 08/14/2023 Localized swelling, mass and lump, lower limb, bilateral (ICD-10 - R22.43) Jud reports episodes of lower extremity edema, currently managed by her PCP. - Recommend cardiac evaluation, appreciate PCP arranging 08/14/2023 Elevated blood-pressure reading, without diagnosis of hypertension (ICD-10 - R03.0) BP elevated today without symptoms of urgency or emergency. Continue serial checks and follow-up with PCP 12/25/2023 Localized swelling, mass and lump, lower limb, bilateral (ICD-10 - R22.43) Jud reports episodes of lower extremity edema, currently managed by her PCP. - Recommend cardiac evaluation, appreciate PCP arranging 09/11/2023 Restlessness and agitation (ICD-10 - R45.1) Jud reports recent restlessness and insomnia. Feels it is stress related. - Encouraged discussion with her PCP, Jud voiced understanding and agreement 12/25/2023 Restlessness and agitation (ICD-10 - R45.1) Jud reports recent restlessness and insomnia. Feels it is stress related. - Encouraged discussion with her PCP, Jud voiced understanding and agreement 09/11/2023 Elevated blood-pressure reading, without diagnosis of hypertension (ICD-10 - R03.0) BP elevated today without symptoms of urgency or emergency. 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 Reports seeing ENT recently, however this was not discussed. - No evidence of VCD on prior spirometry. - Discussed follow-up with ENT or consult with voice specialist, consider consult at [facility], Jud voiced understanding 12/25/2023 Elevated blood-pressure reading, without diagnosis of hypertension (ICD-10 - R03.0) BP elevated today without symptoms of urgency or emergency. Continue serial checks and follow-up with PCP Plan Of Treatment Pending Test Test Name Order Date -Pneumococcal Ab (23 Serotype) 4 Next Appt Details Provider Name:Yoko Nguyen edgar, 03/07/2024 05:05:00 PM, [address]22 [facility], [address], [place], [address], Insurance Providers Payer Name Payer Address Payer Phone Subscriber Number Group Number Insured Name Patient Relationship to Insured Coverage Start Date Coverage End Date [facility] [address] [place] [phone] [id number] Jenna damon Jud Self - patient is the insured 4 Medical (General) History Medical History History ICD Code Obesity Asthma OA Lumbar DDD Migraine H/o IIH Lesion of plantar nerve, 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
--- OUTSIDE RECORDS SUMMARY | 2024-02-21 19:32 | XMS_ITS ---
Author Organization [facility] Address [address] [place] [address] Care Team Providers Care Cloth Beamer Name Role Phone Nancy DIAZ, Daily Primary Care Provider Un available Dr. Jakub Burger Unavailable [phone] Jenna Mares Unavailable Unavailable Yoko Guadalupe Unavailable [phone] REASON FOR VISIT Botox Only, Orofacial Dystonia Medications Medication SIG (Take, Route, Frequency, Duration) Notes Start Date End Date Status Botox Cosmetic 50 UNIT as directed Intramuscular Active Ryaltris 665-25 MCG/ACT 4 sprays (2 spra ys in each nostril) Nasally Twice a day for 30 days Active Zavzpret 10 MG/ACT 1 spray Nasally once, no repeat dose for 30 days As needed for migraine 08/10/2023 Active Ventolin HFA 108 (90 Base) MCG/ACT 1 puff as needed Inhalation every 4 hrs Active Fluticasone Propionate HFA 44 MCG/ACT 1 puff Inhalation Twice a day for 30 days 08/14/2023 Active Nasal Washes as directed intranasally 08/15/2023 Active Nasal Wash - as directed Nasally 09/11/2023 Active Encounters Encounter Location Date Provider Diagnosis [facility] [address] [place] [address] 12/07/2023 Yoko Guadalupe 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 Assessments Encounter Date Diagnosis (ICD Code) Assessment Notes Treatment Notes Treatment Clinical Notes Section Notes 12/07/2023 Idiopathic orofacial dystonia (ICD-10 - G24.4) Plan Of Treatment Next Appt Details Follow Up: 3 Months, Reason: Toxin injection Provider Name:Yoko hernández, 03/07/2024 05:05:00 PM, 2022 [facility], [address], [place], [address], Procedure Notes * Category Sub-Category Detail Notes Toxin Administration onabotulinumtoxinA (BOTOX) Administration Indication: Oromandibular Dystonia Locations and Dosages: Tempo ralis (Left) 20 Units, Temporalis (Right) 20 Units , Masseter (Left) 20 Units, Masseter (Right) 20 Units Frequency: 12 weeks Lot Number / Expiration: See Notes Botox Lot# [id number], Exp 12/2025 Medication Source:: Buy and Bill Units Administered:: See Notes 80 Units Units Wasted:: See Notes 20 Units Adverse Reaction(s): None Progress Notes * Jud CROCKERDOB:1990 (33 yo F)Acc No.[id number]:12/07/2023 Progress Notes Patient:?Jud CROCKER Provider:?Yoko Guadalupe APRN :1990???Age:33 Y???Sex:Female D ate:12/07/2023 [facility] [address] [facility] Pcp:Daily Cruz MD Subjective: * Chief Complaints: * ???Botox OnlyOrofacial Dysto ly * HPI: ???*Interval History:? Last injection on 09/07/23: Temporalis (Left) 20 Units, Temporalis (Right) 20 Units Masseter (Left) 20 Units, Masseter (Right) 20 Units. * Medical History:? * Surgical History:? * Hospitalization/Major Diagno stic Procedure:? * Medications:?TakingRyaltris 665-25 MCG/ACT Suspension 4 sprays (2 sprays in each nostril) Nasally Twice a day Botox Cosmetic 50 UNIT Solution Reconstituted as directed Intramuscular Ventolin HFA 108 (90 Base) MCG/ACT Aerosol Solution 1 puff as needed Inhalation every 4 hrs Zavzpret 10 MG/ACT Solution 1 spray Nasally once, no repeat dose As needed for migraineNasal Washes N/A - 1 quart of sterilized tap water or distilled water, 1 tsp NaCl, 1 pinch of baking soda as directed intranasally Nasal Wash - Solution as directed Nasally Fluticasone Propionate HFA 44 MCG/ACT Aerosol 1 puff Inhalation Twice a day Taking Ryaltris 665-25 MCG/ACT Suspension 4 sprays (2 sprays in each nostril) Nasally Twice a day Taking Botox Cosmetic 50 UNIT Solution Reconstituted as directed Intramuscular Taking Ventolin HFA 108 (90 Base) MCG/ACT Aerosol Solution 1 puff as needed Inhalation every 4 hrs Taking Zavzpret 10 MG/ACT Solution 1 spray Nasally once, no repeat dose As needed for migraineTaking Nasal Washes N/A - 1 quart of sterilized tap water or distilled water, 1 tsp NaCl, 1 pinch of baking soda as directed intranasally Taking Nasal Wash - Solution as directed Nasally Taking Fluticasone Propionate HFA 44 MCG/ACT Aerosol 1 puff Inhalation Twice a day Objective: * Vitals:? Assessment: * Assessment: 1.?Idiopathic orofacial dyst onia - G24.4 (Primary)??? Plan: * Treatment: * Procedures:?Toxin Administration:?onabotulinumtoxinA (BOTOX) Administration ?Indication?Oromandibular Dystonia ?Locations and Dosages?Temporalis (Left) 20 Units, Temporalis (Right) 20 Units , Masseter (Left) 20 Units,Masseter (Right) 20 Units ?Frequency?12 weeks ?Lot Number / Expiration?See Notes Botox Lot# [id number], Exp 12/2025 ?Medication Source:?Buy and Bill ?Units Administered:?See Notes 80 Units ?Units Wasted:?See Notes 20 Units ?Adverse Reaction(s)?None? * Procedure Codes:?J0585 BOTUL INUM TOXIN TYPE A PER UNIT, Units: 80.00 J0585 BOTULINUM TOXIN TYPE A PER UNIT, Units: 20.00 , Modifiers: [id number] DESTROY NERVE, FACE MUSCLE, Modifiers: 50 * Follow Up:?3 Months (Reason: Toxin injection) * Billing Information: * Visit Code:? * Procedure Codes:? J0585 BOTULINUM TOXIN TYPE A PER UNIT. Units: 80.00. J0585 BOTULINUM TOXIN TYPE A PER UNIT. Units: 20.00. Modifiers: [id number] DESTROY NERVE, FACE MUSCLE. Modifiers: 50 * Sign off status: Completed true * Provider:?Yoko Guadalupe APRN Date:? Generated for Anastacio sexton/Adrienne/Ashutosh on:?02/21/2024 07:32 PM [employer] History and Physical Notes * HPI (History of Present Illness) Category Sub-Category Detail Notes Category Not es *Interval History Last injection on 09/07/23: Temporalis (Left) 20 Units, Temporalis (Right) 20 Units Masseter (Left) 20 Units, Masseter (Right) 20 Units
--- OUTSIDE RECORDS SUMMARY | 2024-02-21 19:32 | XMS_ITS ---
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 agreement?? 12.?Unspecified voice and re sonance disorder? Notes: Jud reports voice hoarseness that she has noticed for several months, she denies drainage or sore throat. Reports seeing ENT recently, however this was not discussed. - No evidence of VCD on prior spirometry. - Discussed follow-up with ENT or consult with voice specialist, consider consult at [facility], Jud voiced understanding?? 13.?Elevated blood-pressure reading, without diagnosis of hypertension? Notes: BP elevated today without symptoms of urgency or emergency. Continue serial checks and follow-up with PCP ?? * Immunizations:? NOC Pneumovax 23 : 0.5 (Dose No:1) (Route: Intramuscular) given by bola Hercules (Chronic sinusitis, unspecified)??? Pedvax Hib : 0.5 mL (Dose No:1) (Route: Intramuscular) given by bola Hercules (Chronic sinusitis, unspecified) * Procedure Codes:?32645 PT-FO CUSED [facility] RISK [id number] DOC MEDS VERIFIED W/PT OR [id number] Shellie Cobb - [id number] NOC Pneumovax [id number] Single or [id number] NOC Pedvax [id number] Ea addt'l single or combo * Preventive Medicine:? ??Counseling:?Diet?Journal dietary and environmental contacts.?Exercise?Consider TADEO use PRN, prior to exercise as per the asthma action plan.?Medication instruction:?Watch for side effects of prescribed medications, Nasal steroid/antihistamine instruction: avoid septum.?Education:?GENERAL EDUCATION: Our staff spent an additional 30 minutes in direct contact with the patient educating them on their current diagnoses and proper treatment and prevention of symptoms and the proper use of medications.?Education 2:?ARC EDUCATION: Our staff discussed the appropriate allergen avoidance measures and medication utilization including upper airway hygiene with daily nasal washes given the patient's clinical status and diagnoses. SCIT EDUCATION: Discussed allergy immunotherapy including the relative risks, benefits and alternatives to this treatment as an adjunctive measure to current therapy, Allergy Immunotherapy: Risks: bleeding, infection, allergic reaction, anaphylaxis = severe allergic reaction that can cause ; Benefits: reduced need for medications, improved symptoms, disease modification. Alternatives: watch/wait, change medication regimen, improve allergy avoidance measures, Our staff discussed the warning signs of anaphylaxis and the indications to use self-injectable epinephrine and seek urgent or emergent care.?Patient education material?sent to portal??Yes ?Care goal follow up plan?Above Normal BMI Follow-up?Exercise promotion: stretching ?BP Management:?FIRST HYPERTENSIVE BP READING FOLLOW-UP PLAN:?Follow-up 1 day ?REFERRAL TO ALTERNATIVE / PRIMARY CARE PROVIDER:?Referral to hypertension clinic * Follow Up:?3-4 M (Reason: Ev aluation and Management) * Billing Information: * Visit Code:? 46291 Office Visit, Est Pt., Level 4. Modifiers: 25 * Procedure Codes:? 72154 PT-FOCUSED TH RISK ASSMT. G8427 DOC MEDS VERIFIED W/[place]. [address] Shellie Cobb - Incident-to. 47480 NOC Pneumovax 23. 04601 Immunization Administration (one vaccine). 90742 NOC Pedvax HIB. 34203 Immunization Administration (each additional vaccine). * DRY SORTER Electronically co-signed by Eros Delgado MD, FAAAAI on 02/07/2024 at 05:45 PM LAUNDRY SORTER Sign off status: Completed true * Provider:?NAVID Marte-C Jesse e:?12/25/2023 Generated for Anastacio sexton/Adrienne/eTransmitting on:?02/21/2024 07:31 PM LAUNDRY SORTER History and Physical Notes * HPI (History of Present Illness) Category Sub-Category Detail Notes Category Not es *Introduction I had the pleasure o f seeing Jud Leung, a 33-year-old female, with past medical history significant for migraines and ARC, who presents for follow-up evaluation and laboratory review. She is alone for today's visit. Jud was previously seen by allergy at [facility], managed by Dr. García. Reports she underwent skin testing to aeroallergens that was positive to everything. She was briefly on immunotherapy, however stopped after a few months due to significant fatigue following the injections. Jud endorses upper airway symptoms concerning for uncontrolled atopic disease. Primarily she complains of fatigue, nasal congestion and drainage. She has three birds in her home. Discussed trial of Ryaltris nasal spray last visit, however Jud has not started this medication. She also reports frequent sinus infections, occurring multiple times per year. Lately using sinus rinses with benefit. Modified PIDD work-up ordered that showed inadequate protection to S. pneumo or H. influenzae, also low vitamin D. Jud endorses cough and shortness of breath. She was previously diagnosed with asthma. She carries a rescue inhaler with enoc 2-3 times per month. Illnesses and dust exposure worsen her symptoms. She has been prescribed Advair and Breo in the past. She denies history of hospitalizations due to lower airway symptoms. Spirometry obtained last visit was normal. Discussed trial of ICS, however due to insurance issues she was unable to pick this up. Jud has concerns for several intolerances. She feels she is limited on the medications she can take due to side effects of abdominal pain, nausea and fatigue. She recently removed gluten from her diet, which has been very beneficial. She is currently established with GI, seen by Dr. Fleming. She also reports lower leg edema without clear cause, managed by her PCP. States especially when she travels her legs swell significantly. She has been prescribed a diuretic in the past. No history of cardiac evaluation. Additionally, Jud reports very dry skin. She has a history of migraines managed by Dr. Burger, [facility]. Today, she reports no fevers, chills, night sweats or other constitutional symptoms Examination Category Sub-Category Detail Notes Category Not es General examination HEENT: conjunctiva are normal bilaterally, TMs without evidence of acute infection, posterior oropharynx is clear without exudates, erythema on pharyngeal wall, no exudates, no tongue swelling, and uvula is midline Heart: RRR, S1-S2, no murmu rs, no rubs, no gallops Lungs: clear to auscultatio n in all lung somers, no wheezes, no crackles, no rhonchi Extremities: normal ROM, no clubb ing, no cyanosis, no edema General appearance: pleasant, well-devel oped, well-nourished, female, in no apparent distress, speaking in full sentences Skin: normal, no visible r kiran, dermatographism, urticaria, angioedema Neurologic exam: unremarkable Oral cavity: normal, no lesions Breasts : not performed Back: normal Genitalia: not performed
--- OUTSIDE RECORDS SUMMARY | 2024-02-21 19:32 | XMS_ITS | Encounter Summary ---
Author Organization [facility] Healthcare Address [address] [place] [address] Care Team Providers Care First Leveler Name Role Phone Daily Cruz MD Primary Care Provider [phone] Savannah Holt Unavailable [phone] Ange Chavez MD Unavailable [phone] Reason for Referral * Diagnostic Imaging (Routine) - Closed Specialty Diagnoses / Procedures Referred By Matt burk Referred To Contact Diagnoses Right upper quadrant abdominal pain Procedures NM Hepatobiliary Imaging W Alecia Mosley NP [address] [place] [address] Phone: tel: [facility] [address] [place] [address] Referral ID Status Reason Start Date Expiration Date Visits Re quested Visits Authorized [id number] Closed 01/17/2024 02/15/2025 2 1 [facility] Reason for Visit * Reason Onset Date Comments Medical Question/Miscellaneous 01/17/2024 Authorization/Certification 01/17/2024 Encounter Details Date Type Department Care Team (Late st Contact Info) Description 01/17/2024 Telephone [facility] Family Medicine [address] [place] [address] Daily Cruz MD [address] [place] [address] Medical Question/Miscellaneous ; Authorization/Certific ation Social History Tobacco Use Types Packs/Day Years [...] on file Legal Sex Female 3:37 PM [employer] Gender Identity Female 03/02/2020 4:27 PM [employer] Sexual Orientation Straight 07/10/2019 11 :13 PM CDT documented as of this encounter Miscellaneous Notes * Telephone Encounter - Kylah Tejada - 01/31/2024 3:44 PM CST [id number] v 01/31/24-03/16/24 [facility] CO [facility] * Telephone Encounter - Wciho Meehan - 01/31/2024 3:32 PM CST Certification for Test/Procedure Type of Certification Needed: Pre-Cert for Test/Procedure Type of caller:Facility Type of test/procedure needed (CPT code if available): CPT code: 62901 NM Hepatobiliary Imaging W [facility] Reason for test/procedure (diagnosis code if available): R10.11 Is insurance in chart accurate? Yes, [facility] Facility name: [facility] Nuclear Medicine Facility NPI# (if available): [id number] Facility phone#: [phone] Facility fax#: [phone] Date test/procedure is scheduled: Monday02/05/24 Additional Comments: needing an authorization Does message need to be routed? Yes-Action Needed [facility] * Telephone Encounter - Estuardo Murray RN - 01/17/2024 4:12 PM CST New order placed [facility] * Telephone Encounter - Ayleen Shaver - 01/17/2024 2:19 PM CST Medical Question/Miscellaneous Caller???s Concern: Jie with radiology called stating they received an order, but the CPT code is off by 1 number. She says [place] submitted [id number] [place] [address] for nuclear medicine hepatobiliary imaging. Please send corrected order so she can schedule patient. Does message need to be routed? Yes-Action Needed [facility] [employer] [facility] documented in this encounter Plan of Treatment [...] as needed documented as of this encounter Results * NM Hepatobiliary Imaging [facility] (02/05/2024 10:14 AM [employer]) Anatomical Region Laterality Modality Body N/A Nuclear Medicine 02/05/2024 11:5 1 AM [employer] Impressions 02/05/2024 1:14 PM [employer] 1. ??Normal contractile response of gallbladder ??to sincalide infusion. 2. ??Normal biliary imaging study. Dictated by: Tammy Schulte MD The radiology attending physician has personally reviewed this study, and had reviewed and/or edited this written report and agrees with it. Electronically signed by: Juan Hess MD, Ph.D Narrative 02/05/2024 1:14 PM [employer] EXAMINATION: ??HEPATOBILIARY SCINTIGRAPHY DATE OF STUDY: 02/05/2024 [...] results of this study was sent to [employer]/PACS by the interpreting physician Dr. Hess. Procedure [...] results of this study was sent to [employer] by the interpreting physician Dr. Hess. IMPRESSION: 1. Normal contractile response of gallbladder to sincalide infusion. 2. Normal biliary imaging study. Dictated by: Tammy Schulte MD The radiology attending physician has personally reviewed this study, and had reviewed and/or edited this written report and agrees with it. Electronically signed by: Juan Hess MD, Ph.D Alecia Shaver VP [employer] NM PROCEDURES Final Result documented in this encounter Visit Diagnoses Diagnosis Right upper quadrant abdominal pain- Primary Right upper quadrant abdominal pain documented in this encounter Care Teams First Leveler Relationship Specialty Start Date End Date Daily Cruz MD PCP - General Family Medicine 03/04/21 Savannah Holt PA [address] [facility] NEUROLOGY [facility], [address] [address] Physician Splitting Machine Operator Neurology 06/07/23 Ange Chavez MD [address] [facility] NEUROLOGY [address] [id number] Consulting Physician Endocrinology 06/07/23 documented as of this encounter
--- OUTSIDE RECORDS SUMMARY | 2024-02-21 19:32 | XMS_ITS | Encounter Summary ---
Author Organization [facility] Address [address] [place] [address] Phone Care Team Providers Care Garment Sewer Hand Name Role Phone Daily Cruz MD Primary Care Provider [phone] Savannah Holt Unavailable [phone] Ange Chavez MD Unavailable [phone] Reason for Referral * MRI/CAT/PET Scan (Routine) - Pending Review Specialty Diagnoses / Procedures Referred By Matt burk Referred To Contact Radiology Diagnoses Pituitary adenoma (HCC) Procedures MRI Brain W WO Contrast (Pituitary) Ange Chavez MD [address] [place] [address] Phone: tel: fax: [address] [address] Referral ID Status Reason Start Date Expiration Date V isits Requested Visits Authorized [id number] Pending Review 02/02/2024 03/03/2025 1 1 GOODS WASHER Encounter Details Date Type Department Care Team (Late st Contact Info) Description 02/02/2024 8:40 AM KNIT GOODS WASHER Office Visit [facility] Endocrinology Metabolism and Lipid [address] [facility] [address], [address] [place] [address] Ange Chavez MD [address] [facility] [address] [place] [address] Pituitary adenoma (HCC) (Primary Dx); Class 3 severe obesity due to excess calories without serious comorbidity with body mass index (BMI) of 40.0 to 44.9 in adult (HCC) Social History Tobacco Use Types Packs/Day Years [...] on file Legal Sex Female 3:37 PM KNIT GOODS WASHER Gender Identity Female 03/02/2020 4:27 PM KNIT GOODS WASHER Sexual Orientation Straight 07/10/2019 11 :13 PM CDT documented as of this encounter Last Filed Vital Signs Vital Sign Reading Time Taken Comments Blood Pressure 116/78 02/02/2024 8:30 AM KNIT GOODS WASHER Pulse 59 02/02/2024 8:30 AM KNIT GOODS WASHER Temperature - - Respiratory Rate 17 02/02/2024 8:30 AM KNIT GOODS WASHER Oxygen Saturation - - Inhaled Oxygen Concentration - - Weight 118.1 kg (260 lb 6.4 oz) 02/02/2024 8:30 AM KNIT GOODS WASHER Height 170.2 cm (5' 7 ) 02/02/2024 8:30 AM KNIT GOODS WASHER Body Mass Index 40.78 02/02/2024 8:30 AM KNIT GOODS WASHER documented in this encounter Patient Instructions * Patient Instructions* Ange Chavez MD - 02/02/2024 8:40 AM KNIT GOODS WASHER Do a dexamethasone suppression test: You should take dexamethasone 1 mg (this was sent to your pharmacy) at 11:00 p.m. and go to the lab the next morning at 8:00 am to have your blood drawn for a cortisol and dexamethasone level We will schedule an MRI scan the day of your next appointment GOODS WASHER documented in this encounter Ordered Prescriptions Prescription Sig Dispense Quantity Refills Last Filled Start Date End Date dexAMETHasone (DECADRON) 1 mg tablet take 1 mg at 11pm and go to the lab the next morning at 8am to have your blood drawn. 1 tablet 02/02/2024 documented in this encounter Progress Notes * Ange Chavez MD - 02/02/2024 8:40 AM CST PATIENT NAME: Jud Crocker : 1990 02/01[birth year]2024 PCP: Daily Cruz MD Referring Physician: No ref. provider found CHIEF COMPLAINT: Cystic pituitary mass PROBLEM LIST: Patient Active Problem List Diagnosis 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 or arthrodesis Painful orthopaedic hardware (HCC) Moderate persistent asthma without complication Attention deficit disorder (ADD) in adult Rathke's cyst (HCC) Non-refractory chronic migraine without aura Pseudotumor cerebri Pain and swelling of lower extremity Arthralgia Elevated sedimentation rate Allergic rhinitis Family history of seizure disorder Gastritis History of syncope Increased frequency of urination Chronic migraine without aura without status migrainosus, not intractable Paronychia Screening for condition Seborrhea Vitamin D deficiency Morbid obesity with BMI of 40.0-44.9, adult ([facility]) Simple obesity Exposure to COVID-19 virus Acute cough Chronic bilateral low back pain Left hip pain Chronic pain of both knees Lumbar degenerative disc disease Chronic pain of both hips Anxiety and depression Reactive airway disease without asthma Prepatellar bursitis of both knees Lumbar spondylosis Fluid retention Leg cramping Well adult exam Other chronic pain Bipolar 2 disorder (CMS/HCC) ([facility]) Patellar maltracking, left Plantar fasciitis Localized swelling of left foot High serum c-peptide Chronic pain of multiple joints White matter abnormality on MRI of brain Endometriosis RLQ abdominal pain Gastroesophageal reflux disease without esophagitis Diarrhea Allergic reaction Allergic conjunctivitis of both eyes Allergic rhinitis due to pollen Bulging lumbar disc Acute bacterial sinusitis Persistent asthma without complication Panic attack Elevated blood pressure, situational Idiopathic orofacial dystonia Bilateral lower extremity edema Acute bronchitis due to other specified organisms Diplopia Pituitary adenoma (HCC) Moderate persistent asthma with acute exacerbation Lumbar radiculopathy Liver mass Nasal congestion Infertility, female TMJ arthralgia Maxillary pain Constipation Allergic rhinitis due to animal hair and dander Chronic allergic conjunctivitis Chronic sinusitis Restlessness and agitation Hemangioma of intra-abdominal structure Hordeolum internum of left lower eyelid Exotropia Encounter for well woman exam with routine gynecological exam Atypical squamous cell changes of undetermined significance (ASCUS) on cervical cytology with positive 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 papilloma virus (HPV) Pure hypercholesterolemia HISTORY OF PRESENT ILLNESS: Jud Crocker is 33 y.o. with history of bipolar disorder, chronic pain, seizures, ADD, obesity, pseudotumor cerebri, and migraines seen in follow up in our [facility] for a pituitary mass Patient reports she was found to have a pituitary mass on imaging done in 2015 as part of an evaluation for episodes which lasted one week. Started after night of drinking. Was having seizures and vertigo. Would lay down and whole room would be spinning. Would stand up and fall over. Would have absence seizures and black out. MRI done 06/28 describes a cystic pituitary lesion. Patient says she saw an mechanical product engineer once. We have some lab work done between 2015 and 2016 showing a normal prolactin, IGF-1, acth/cortisol and thyroid levels Patient reports MRI 12/05 ordered because of headaches. MRI done 12/05 describes a similarly sized 6 mm anterior pituitary nodule (cystic). Imaging and labs include: Thyroid US 06/02/15: Unremarkable thyroid ultrasound. MRI 06/17/15: Within the anterior superior aspect of the pituitary gland, situated in the midline between the gland and the pituitary stalk, there is a 7 mm cyst consistent with Rathke's cleft cyst. The pituitary gland is otherwise unremarkable. No mass effect upon the optic chiasm. No abnormal enhancement within the brain. MRI 12/13/22: Ovoid, intrinsically T1 hyperintense 6 mm hypoenhancing nodule within the anterior pituitary. Diagnostic considerations include a pituitary microadenoma or Rathke's cleft cyst. Attention on follow up is recommended. 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 Reports being admitted for severe headaches Saw chiropractor Had spinal tap Didn't need blood patch Headaches nearly gone since starting gluten free diet Now on Wegovy Menses have been kind of irregular but starting to regulate more Was going to do IVF but denied Reports infertility, no known cause Could be related to hx of endometriosis PAST MEDICAL HISTORY: Past Medical History: Diagnosis Date ADHD (attention deficit hyperactivity disorder) Allergic rhinitis Anxiety Arthritis Asthma Brain concussion 2010, 2009 Chronic bronchitis (HCC) Depression Ear problems Gastric reflux GERD (gastroesophageal reflux disease) PRN tums Hypertension, essential 05/27/2022 IIH (idiopathic intracranial hypertension) Pseudotumor cerebri. reports last spinal tap 2017. 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 on Bumex Memory loss Migraines follows with PCP. reports improved somewhat with fioricet started ~2 weeks ago Motion sickness Nosebleed Obesity Peptic ulceration Reports remote history. PRN tums Pneumonia 12/2019 PONV (postoperative nausea and vomiting) premedicated and scopolamine patch Reactive airway disease PRN albuterol and symbicort, well controlled. Reports albuterol use with URI. Seasonal allergies Seizure ([facility]) 04/25/2017 Seizures ([facility]) off medication since 2018 with no further seizure activity, EEG negative Sinusitis Sleep difficulties SOB (shortness of breath) Tinnitus PAST SURGICAL HISTORY: Past Surgical History: Procedure Laterality Date ABDOMINAL SURGERY Laparoscopic surgery to remove endometriosis FOOT NEUROMA SURGERY Left 08/2023 FOOT SURGERY Bilateral 2018 2 left bunion, 1 right bunion- hardware in place left and right foot FOOT SURGERY 07/16/2019 revision left tarsometatarsal joint arthrodesis iliac crest bone graft - Left KNEE ARTHROSCOPY W/ LATERAL RELEASE 2021, 2020 KNEE SURGERY 01/2022 meniscus repair LAPAROSCOPIC ENDOMETRIOSIS FULGURATION 2018 NASAL ENDOSCOPY TONSILLECTOMY WISDOM TOOTH EXTRACTION ALLERGIES: Allergies Allergen Reactions Acetazolamide Swollen tongue Tongue and lip swelling Sob Rash Dihydroergotamine Shortness of breath Severe pressure and tightness in chest Severe pressure and tightness in chest Anxiety, Shortness of Breath/Wheezing (Shortness of breath) Bradycardia and HTN Hydrochlorothiazide Swollen tongue Latex Hives and Blisters Nickel Hives, Itching, Rash and Swelling SKIN TURNS RED Topiramate Swelling and Other (See comments) Dizzy, body goes numb Hydrocodone-Acetaminophen Nausea And Vomiting Lamotrigine Other (See comments) SEIZURE ACTIVITY Levetiracetam Other (See comments) SEIZURE ACTIVITY Oxycodone-Acetaminophen Nausea And Vomiting CURRENT MEDICATIONS: Current Outpatient Medications: albuterol 2.5 mg /3 [...] for wheezing, Disp: 6.7 g, Rfl: 0 cholecalciferol (VITAMIN D-3) 50,000 unit capsule, , Disp: , Rfl: Nurtec ODT tablet,disintegrating, Take 1 tablet (75 mg total) by mouth every other day, Disp: , Rfl: onabotulinumtoxinA, cosmetic, (Botox Cosmetic) 50 unit recon soln, as directed Intramuscular, Disp:, Rfl: semaglutide (Wegovy) 0.5 mg/0.5 mL auto-injector, Inject 0.5 mL (0.5 mg total) under the skin every7 days, Disp: 2 mL, Rfl: 0 zavegepant (Zavzpret) 10 mg/actuation spray,non-aerosol, Administer 1 spray into affected nostril(s) daily as needed (migraine), Disp: 6 each, Rfl: 2 FAMILY HISTORY: Family History Problem Relation Age of Onset Seizures Sister Family history of seizures - (Added by TW Conv) Arthritis Sister Hypertension Sister Mental illness Sister Stroke Sister Depression Sister Rashes / Skin problems Sister Arthritis Mother Hypertension Mother Mental illness Mother Stroke Mother Seizures Mother Diabetes Mother Alcohol abuse Mother Heart attack Mother COPD Mother Depression Mother Drug abuse Mother Miscarriages / Stillbirths Mother Vision loss Mother Kidney disease Mother Bleeding Disorder Mother Arthritis Father Hypertension Father Mental illness Father Heart attack Father Depression Father Vision loss Father Hearing loss Father Stroke Paternal Grandmother Depression Sister Anesthesia problems Neg Hx SOCIAL HISTORY: Social History Tobacco Use Smoking status: Never Passive exposure: Past Smokeless tobacco: Never Substance and Sexual Activity Drug use: Not Currently Types: Alcohol Comment: ~3 drinks/month Sexual activity: Yes Partners: Male control/protection: I.U.D. 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 PHYSICAL EXAM: There were no vitals taken for this visit. A medically appropriate physical exam was performed Gen: NAD Neck: no dorsocervical fat pad, No supraclavicular fullness CV: RRR, nl S1/S2, no m/r/g, no LE edema Lungs: CTA B, no c/w/r Neuro: non focal. 2 + patellar reflexes LABS: Lab Results Component Value Date HGBA1C 5.2 04/12/2023 HGBA1C 5.4 09/27/2021 Lab Results Component Value Date HDL 65 06/11/2022 LDLCALC 97 06/11/2022 Lab Results Component Value Date CREATININE 0.60 05/25/2023 Lab Results Component Value Date TSH 3.38 04/12/2023 FREET4 1.27 04/03/2023 THYROIDAB <1 04/12/2023 No results found for: THYROGLOBULI , THGABINT Lab Results Component Value Date PROLACTIN 16.8 04/03/2023 CORTISOL 17.6 04/03/2023 ESTRADIOL 560 (H) 04/12/2023 Lab Results Component Value Date TESTOSTERONE 29 04/12/2023 TESTOSTFREE 1.5 04/12/2023 Lab Results Component Value Date CALCIUM 8.0 (L) 05/25/2023 Lab Results Component Value Date GLUCOSE 96 05/25/2023 CALCIUM 8.0 (L) 05/25/2023 SODIUM 140 05/25/2023 POTASSIUM 4.5 05/25/2023 CO2 25 05/25/2023 CHLORIDE 105 05/25/2023 BUNSER 16 05/25/2023 CREATININE 0.60 05/25/2023 Lab Results Component Value Date ALT 9 05/25/2023 AST 10 05/25/2023 ALKPHOS 93 05/25/2023 BILITOT 0.3 05/25/2023 Lab Results Component Value Date WBC 8.4 05/25/2023 HGB 13.6 05/25/2023 HCT 40.0 05/25/2023 MCV 86.8 05/25/2023 LABPLAT 324 05/25/2023 High Dose ACTH Stimulatin Test Component Latest Ref Rng 04/03/2023 Cortisol, base mcg/dL 7.1 Cortisol, 30 min mcg/dL 15.2 Cortisol, 60 min mcg/dL 17.6 IMAGING: I personally reviewed MRI scan dated 12/13/2022. Images show a 6.2 mm hypoenhancing noduleanterior pituitary gland I personally reviewed MRI scan dated 02/02/2024 Images show a stable hypoenhancing nodule. Radiology read pending ASSESSMENT: 33 y.o. with hx of multiple medical problems including asthma, chronic sinusitis, migraines, pseudotumor cerebri, bipolar disorder, and chronic pain found to have a cystic pituitary mass on imaging done in 2015 as part of an evaluation for ???episodes?? . The following issues were discussed #Cystic pituitary mass Likely has a cystic nonfunctioning pituitary adenoma versus a Rathke's cleft cyst. I recommend patient be screened for Janeth's disease as below Patient being managed conservatively MRI scan done 02/05 shows a stable cystic lesion Recommend repeat MRI one year #Hormonal status Thyroid: TSH/FT4 normal (04/08) GH: IGF-1 normal (04/08), no signs or symptoms of acromegaly HPA axis: ACTH stimulation test normal 04/08 (peak cortisol 17.6) Although clinical suspicion low, recommend screen for Janeth's Disease with low dose dexamethasonesuppression test Gonadal: Menses regular Prolactin normal (04/08) #Headaches Improved with gluten free diet #Class III severe obesity On mounjaro Rule out CD as above PLAN: -LDDST: patient to take 1 mg of dexamethasone at 11pm and have an 8am cortisol and dexamethasone level -MRI scan day of next appointment (Will follow up on MRI result from today) Problem List None RTC 12 months Ange Chavez MD Petrophysical Engineer Pituitary Train Clerk, Clinical Trials Unit inspector assembly and Neurological Surgery Division Endocrinology, Metabolism and Lipid Research [facility] [id number] [facility], [address] [facility] [id number] [place] [address]. P: [phone] F: [phone] GOODS WASHER documented in this encounter Plan of Treatment Scheduled Orders Name Type Priority Associated Diagnoses Order Schedule Cortisol Lab Routine Pituitary adenoma (HCC) Expected: 02/02/2024, Expires: 02/01/2025 Dexamethasone Lab Routine Pituitary adenoma (HCC) Expected: 02/02/2024, Expires: 02/01/2025 MRI Brain W WO Contrast (Pituitary) Imaging Schedule Routine, Read Routine (OP Routine) Pituitary adenoma (HCC) Expected: 02/01/2025 (Approximate), Expires: 08/02/2025 documented as of this encounter Goals Goal [...] as of this encounter Visit Diagnoses Diagnosis Pituitary adenoma (HCC)- Primary Benign neoplasm of pituitary gland and craniopharyngeal duct (pouch) Class 3 severe obesity due to excess calories without serious comorbidity with body mass index (BMI) of 40.0 to 44.9 in adult (HCC) documented in this encounter Care Teams Garment Sewer Hand Relationship Specialty Start Date End Date Daily Cruz MD PCP - General Family Medicine 03/04/21 Savannah Holt PA [address] [facility] [address] [address] Physician Performance Test Consultant Neurology 06/07/23 Ange Chavez MD [address] [facility] [address] [address] Consulting Physician Endocrinology 06/07/23 documented as of this encounter
--- OUTSIDE RECORDS SUMMARY | 2024-02-21 19:32 | XMS_ITS | Encounter Summary ---
Author Organization [facility] Address [address] [place] [address] Care Team Providers Care Bulk Clerk Name Role Phone Daily Cruz MD Primary Care Provider [phone] Savannah Holt Unavailable [phone] Ange Chavez MD Unavailable [phone] Reason for Referral * Diagnostic Imaging (Routine) - Closed Specialty Diagnoses / Procedures Referred By Contac t Referred To Contact Diagnoses Right upper quadrant abdominal pain Procedures NM Hepatobiliary Imaging W Alecia Mosley NP [address] [place] [address] Phone: tel: [address] [phone] Referral ID Status Reason Start Date Expiration Date Visits Re quested Visits Authorized [id number] Closed 01/17/2024 02/15/2025 2 1 SHIFTER Reason for Visit * Diagnostic Imaging (Routine) - Closed Specialty Diagnoses / Procedures Referred By Contac t Referred To Contact Diagnoses Right upper quadrant abdominal pain Procedures NM Hepatobiliary Imaging W Alecia Mosley NP [address] [place] [place] [address] Phone: tel: [address] [phone] Referral ID Status Reason Start Date Expiration Date Visits Re quested Visits Authorized [id number] Closed 01/17/2024 02/15/2025 2 1 Encounter Details Date Type Department Care Team (Latest Contact Info) Description 02/05/2024 7:11 AM MINI SHIFTER - 02/05/2024 11:59 PM MINI SHIFTER Hospital Encounter [facility] [address] [place] [id number] Right upper quadrant abdominal pain Discharge Disposition: [...] on file Legal Sex Female 3:37 PM MINI SHIFTER Gender Identity Female 03/02/2020 4:27 PM MINI SHIFTER Sexual Orientation Straight 07/10/2019 11 :13 PM [...] Procedure Name Priority Date/Time Associated Diagnosis Comments NM HEPATOBILIARY IMAGING W PHARMACEUTICAL INTERVENTION Schedule Routine, Read Routine (OP Routine) 02/05/2024 10:14 AM MINI SHIFTER Right upper quadrant abdominal pain documented in this encounter Results * NM Hepatobiliary Imaging W GBEF (02/05/2024 10:14 AM MINI SHIFTER) Anatomical Region Laterality Modality Body N/A Nuclear Medicine 02/05/2024 11:5 1 AM MINI SHIFTER Impressions 02/05/2024 1:14 PM MINI SHIFTER 1. ??Normal contractile response of gallbladder ??to sincalide infusion. 2. ??Normal biliary imaging study. Dictated by: Tammy Schulte MD The radiology attending physician has personally reviewed this study, and had reviewed and/or edited this written report and agrees with it. Electronically signed by: Juan Hess MD, Ph.D Narrative 02/05/2024 1:14 PM MINI SHIFTER EXAMINATION: ??HEPATOBILIARY SCINTIGRAPHY DATE OF STUDY: 02/05/2024 [...] results of this study was sent to [facility] by the interpreting physician Dr. Hess. Procedure [...] results of this study was sent to [facility] by the interpreting physician Dr. Hess. IMPRESSION: 1. Normal contractile response of gallbladder to sincalide infusion. 2. Normal biliary imaging study. Dictated by: Tammy Schulte MD The radiology attending physician has personally reviewed this study, and had reviewed and/or edited this written report and agrees with it. Electronically signed by: Juan Hess MD, Ph.D Alecia Shaver ESCALATOR CONSTRUCTOR IMG [facility] PROCEDURES Final Result documented in this encounter Visit Diagnoses Diagnosis Right upper quadrant abdominal pain documented in this encounter Administered Medications Inactive Administered Medications - up to 3 most recent administrations Medication Order MAR Action Action Date Dose Rate Site sincalide (KINEVAC) injection 2.4 mcg 2.4 mcg (rounded from 2.362 mcg = 0.02 mcg/kg ? 118.1 kg), intravenous, Administer over 30 Minutes, Once, On Mon02/05/24 at 0945, For 1 dose, Pre-Op/Floor (IR) New Bag 02/05/2024 9:51 AM MINI SHIFTER 2.4 mcg tc-99m mebrofenin (choletec) injection 3 millicurie 3 millicurie, intravenous, Once in imaging, radiopharmaceutical, Starting on Mon02/05/24 at 0747, For 1 dose, Indications: Diagnostic RadiographyIndications:Mary gnostic Radiography Given 02/05/2024 7:51 AM MINI SHIFTER 3.47 millicuries documented in this encounter Care Teams Bulk Clerk Relationship Specialty Start Date End Date Daily Cruz MD PCP - General Family Medicine 03/04/21 Savannah Holt PA [address] [facility] [address] [place] [address] Physician Per Diem Rn Neurology 06/07/23 Ange Chavez MD [address] [facility] [address] [place] [address] Consulting Physician Endocrinology 06/07/23 documented as of this encounter
--- OUTSIDE RECORDS SUMMARY | 2024-02-21 19:32 | XMS_ITS | Referral Summary ---
Author Organization [facility] Address [address] [place] [address] Care Team Providers Care Supervisor [employer] Name Role Phone Daily Cruz MD Primary Care Provider [phone] Savannah Holt Unavailable Ange Chavez MD Unavailable [phone] Encounters Date Type Department Care Team Description 02/05/2024 7:11 AM RN X RAY - 02/05/2024 11:59 PM RN X RAY Hospital Encounter [facility] ([facility] [address] [place] [address] Right upper quadrant abdominal pain Discharge Disposition: Discharge to home or self care 02/05/2024 7:12 AM RN X RAY - 02/05/2024 11:59 PM RN X RAY Hospital Encounter [facility] ([facility]) [address] [place] [address] Liver mass Discharge Disposition: Discharge to home or self care 02/05/2024 7:12 AM RN X RAY - 02/05/2024 11:59 PM RN X RAY Hospital Encounter [facility] ([facility]) [address] [place] [address]755 Right upper quadrant abdominal pain Discharge Disposition: Discharge to home or self care 02/02/2024 8:40 AM RN X RAY Office Visit [facility] Endocrinology Metabolism and Lipid [address] [facility] Floor 1, [address] [place] [address] Ange Chavez MD Pituitary adenoma (HCC) (Primary Dx); Class 3 severe obesity due to excess calories without serious comorbidity with body mass index (BMI) of 40.0 to 44.9 in adult (HCC) 02/02/2024 6:41 AM RN X RAY - 02/02/2024 11:59 PM RN X RAY Hospital Encounter [facility] ([facility]) [address] [place] [address] Pituitary adenoma (HCC) Discharge Disposition: Discharge to home or self care 01/24/2024 Telephone [place] [id number] [facility] [address] [place] [address] Daily Ortega MD Medication Request 01/22/2024 5:00 PM RN X RAY [facility] [address] [place] [address] Selam Orosco NP Strain of peroneal tendon of right foot, subsequent encounter (Primary Dx) 01/17/[address] [place] [address] Daily Ortega MD Medical Question/Miscellaneous; Authorization/Certificatio n 01/01/2024 5:23 PM RN X RAY - 01/01/2024 11:59 PM RN X RAY Hospital Encounter [facility] [address] [place] [address] Acute right ankle pain; Right foot pain Discharge Disposition: Discharge to home or self care 01/01/2024 5:15 PM RN X RAY [facility] [address] [place] [address] [place] [phone] Selam Orosco NP Acute right ankle pain (Primary Dx); Right foot pain 12/29/2023 Telephone [place] [address] [facility] [address] [place] [address] Daily Ortega MD 12/29/2023 9:30 AM RN X RAY Telemedicine [facility] [address] [facility] [address] [place] [address] Daily Ortega MD Atypical squamous cell changes of undetermined significance (ASCUS) on cervical cytology with positive 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 papilloma virus (HPV) (Primary Dx); Morbid obesity with BMI of 40.0-44.9, adult (HCC); Pure hypercholesterolemia 11/28/2023 Telephone [facility] [address] [facility] [address] [place] [address] Daily Ortega MD 11/23/2023 Telephone [facility] [address] [facility] [address] [place] [address] Daily Ortega MD Test Results 11/23/2023 Telephone [facility] [address] [facility] [address] [place] [address] Lauren Carrion MA Medication Request from Last 3 Months Allergies Active Allergy Reactions Criticality Noted Date [...] 01/07/2024 Assessment & Plan (01/07/2024 11:03 PM RN X RAY): Chronic Stable Diet control Goal: TC<200, LDL<100, TG<150 Atypical squamous cell han es of undetermined significance (ASCUS) on cervical cytology with positive 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 papilloma virus (HPV) 12/29/2023 Assessment & Plan (01/07/2024 11:01 PM RN X RAY): New On pap Refer to rn mds Encounter for well woman joy ness with [...] gtts tid OS x 7-10 days; discussed skilled nursing side effect of topical steroid use -RTC [...] 12/12/2022 Assessment & Plan (01/07/2023 11:22 AM RN X RAY): Persistent symptoms Order cefdinir Diplopia 12/12/2022 Assessment & Plan (01/07/2023 11:23 AM RN X RAY): Persistent Refer to neuroopthalmology Bilateral lower extremity edema 11/25/2022 Assessment & Plan (12/23/2022 6:22 AM RN X RAY): Persistent Causes pain Refer to lymphedema clinic 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 Assessment & Plan (07/15/2022 6:24 PM CDT): Nystatin suspension, use as directed Follow up with PCP for persisting symptoms Elevated blood pressure, situational 05/27/2022 Panic attack 03/30/2022 Assessment & Plan (04/08/2022 6:49 AM RN X RAY): New Start rexulti Use xanax PRN Treatments failed: zoloft, celexa, wellbutrin, effexor, cymbalta, vraylar Acute bacterial sinusitis 03/22/2022 Persistent asthma without complication 3 Lumbar radiculopathy 02/02/2022 Overview (02/22/2023): Added automatically from request for surgery [id number] Bulging lumbar disc 12/22/2021 Assessment & Plan (12/30/2021 5:42 AM RN X RAY): Uncontrolled pain Refer to pain management Allergic [...] Order pelvic/transvaginal ultrasound Refer to GI and rn mds RLQ abdominal pain 10/26/2021 Assessment & Plan [...] Order pelvic/transvaginal ultrasound Refer to GI and rn mds Localized swelling of left foot 10/11/2021 Assessment [...] (10/06/2020): Added automatically from request for surgery [id number] Other chronic pain 10/05/2020 Bipolar 2 disorder ([facility]) 10/05/2020 Assessment & Plan (04/08/2022 6:49 AM RN X RAY): New Start rexulti Use xanax PRN\ Treatments [...] 05/20/2020 Assessment & Plan (12/30/2021 5:41 AM RN X RAY): Uncontrolled pain Refer to pain management Assessment [...] 04/01/2020 Assessment & Plan (01/07/2023 11:19 AM RN X RAY): Better Cont prozac to 40mg Assessment & [...] daily Assessment & Plan (04/01/2020 11:36 AM RN X RAY): Worsening Start vraylar 1.5mg Chronic pain of both knees 03/04/2020 Assessment & Plan (08/25/2020 4:35 PM CDT): Stable Cont diclofenac Assessment & Plan (05/13/2020 4:02 AM CDT): Uncontrolled Start Voltaren Await MRI Assessment & Plan (04/12/2020 4:51 PM RN X RAY): No improvement Get MRIs next Assessment & Plan (03/05/2020 4:22 AM RN X RAY): Worsening To start PT Lumbar degenerative disc disease 03/04/2020 Assessment & Plan (12/30/2021 5:42 AM RN X RAY): Uncontrolled pain Refer to pain management Assessment & Plan (03/05/2020 4:23 AM RN X RAY): To get MRI report from [facility] Worsening To start PT Chronic pain of both hips 03/04/2020 Assessment & Plan (03/05/2020 4:22 AM RN X RAY): Worsening To start PT Chronic bilateral low back pain 01/29/2020 Assessment & Plan (12/30/2021 5:41 AM RN X RAY): Uncontrolled pain Refer to pain management Assessment & Plan (05/13/2020 4:02 AM CDT): Uncontrolled Start Voltaren Await MRI Assessment & Plan (02/17/2020 4:51 AM RN X RAY): New Order lumbar xray Left hip pain 01/29/2020 Assessment & Plan (02/17/2020 4:51 AM RN X RAY): New Order hip xray Exposure to COVID-19 [...] for cough Continue 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 Assessment & Plan (12/23/2019 5:19 AM RN X RAY): Was exposed to COVID Order covid tsting [...] 07/11/2019 Assessment & Plan (02/17/2020 4:51 AM RN X RAY): With increased headaches, Get MRI brain Assessment & Plan (08/26/2019 2:15 AM CDT): Getting increased GAGNON Order CT head Pain and swelling of lower extremity 07/11/2019 Assessment & Plan (08/26/2019 2:15 AM CDT): Stable cotn hctz 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 or arthrodesis 06/30 Overview (07/01/2019): Added automatically from request for surgery [id number] Painful orthopaedic hardware 07/01/2019 Overview (07/01/2019): Added automatically from request for surgery [id number] Class 3 severe obesity due t o excess calories without serious comorbidity with body mass index (BMI) of 40.0 to 44.9 in adult 03/22/2016 Assessment & Plan (12/29/2023 9:43 AM RN X RAY): BMI Follow-up includes: nutrition counseling and exercise [...] emgality Assessment & Plan (04/01/2020 11:28 AM RN X RAY): Has been on keppra and lamictal before for prevention, but they caused side effects of severe drowsiness and would get witdrawal tremors Assessment & Plan (03/05/2020 4:23 AM RN X RAY): Uncontrolled Start emgality Assessment & Plan (01/29/2020 11:36 AM RN X RAY): Uncontrolled Start ajovy Paronychia 01/31/2009 Screening for [...] Order pelvic/transvaginal ultrasound Refer to GI and rn mds Hyperglycemia 09/27/2021 02/22/2023 Acute bronchitis due to othe r specified organisms 07/20/2021 12/06/2021 Assessment & Plan (07/20/2021 2:01 PM CDT): New Order zpack, symbicort, Tessalon perles, albuterol Pure hypercholesterolemia 07/20/2021 Assessment & Plan (12/30/2021 5:41 AM RN X RAY): Chronic Follow low cholesterol diet Goal: TC<200, [...] 01/29/202002/13 Assessment & Plan (02/17/2020 4:51 AM RN X RAY): New Order knee xray Pustular rash 01/29/2020 02/22/2023 Assessment & Plan (02/17/2020 4:52 AM RN X RAY): New Order Doxycycline Nasal congestion 12/18/2019 02/22/2023 Assessment & Plan (12/23/2019 5:19 AM RN X RAY): Was exposed to COVID Order covid tsting Order flonase, xyzal Seizure 04/25/2017 02/22/2023 Chronic intractable headache 01/04/2016 07/20/2021 Hyperthyroidism 09/28/2015 02/22/2023 Obesity due to excess calories 12/24/2014 02/22/2023 Candidiasis of vagina 01/31/20092023 Skin striae 01/31/2009 02/22/2023 Tinea pedis 01/31/2009 02/22/2023 Immunizations Name Administration Dates Next Due DTP / HiB 05/14/1992,03/05/1992,1991 DTaP 10/02/1997,12/31/1992 HPV, Quadrivalent 04/17/2009,11/27/2008 HPV, Unspecified 04/17/2009,11/27/2008, 9 Hib (HbOC) 12/31/1992 Influenza, Split 11/27/2008 Influenza, Trivalent, IM (MDV) 04/21/2016 Influenza, Unspecified 12/29/2023(Deferr ed: Patient Refused),11/13/2022(Deferred: Patient Refused),12/06/2021(Deferred: Patient Refused),11/13/2021,11/13/2020(Deferred: Patient decision),12/03/2019,11/14/2019(Deferred: Parental decision),11/13/2018 MMR 10/02/1997,12/31/1992 OPV 10/02/1997,12/31/1992,03/05/1992 ,1991 Social History Tobacco Use Types Packs/Day Years [...] on file Legal Sex Female 3:37 PM RN X RAY Gender Identity Female 03/02/2020 4:27 PM RN X RAY Sexual Orientation Straight 07/10/2019 11 :13 PM CDT Last Filed Vital Signs Vital Sign Reading Time Taken Comments Blood Pressure 116/78 02/02/2024 8:30 AM RN X RAY Pulse 59 02/02/2024 8:30 AM RN X RAY Temperature 36.5 ??C (97.7 ??F) 11/09/2023 3:09 PM CD T Respiratory Rate 17 02/02/2024 8:30 AM RN X RAY Oxygen Saturation 100% 11/09/2023 3:09 PM CDT Inhaled Oxygen Concentration - - Weight 117.9 kg (260 lb) 02/05/2024 3:13 PM RN X RAY Height 170.2 cm (5' 7 ) 02/05/2024 3:13 PM RN X RAY Body Mass Index 40.72 02/05/2024 3:13 PM RN X RAY Plan of Treatment Not on file Goals Goal Patient Goal Type Associated Problems [...] as needed Medical Devices Implanted Type Area Traffic Engineering Director Device Identifier Shelf Expiration Date Model / Serial / Lot Synthes 207.740 4mm 5mm 40mm Cannulated Self Tap Self Drill Small Hexagonal - S0 - [id number] Implanted:Qty: 1 on 07/16/2019 by Charissa Holley MD at [facility] Screw Left: Foot Synthes I 207.740 / 0 / Synthes 207.730 4mm 5mm 30mm Cannulated Self Tap Self Drill Small Hexagonal - S0 - [id number] Implanted:Qty: 1 on 07/16/2019 by Charissa Holley MD at [facility] Screw Left: Foot Synthes I 207.730 / 0 / Synthes 207.630 4mm 5mm 1.35mm 30mm Cannulated Self Tap Self Drill Small - S0 - [id number] Implanted:Qty: 1 on 07/16/2019 by Charissa Holley MD at [facility] Screw Left: Foot Synthes I 207.630 / 0 / Explanted Type Area Traffic Engineering Director Device Identifier Shelf Expiration Date Model / Serial / Lot [employer] Crosscheck Plate Explanted:Qty: 1 on 07/16/2019 by Charissa Holley MD at [facility] Plate Left: Foot [employer] / 0 / [employer] Crosscheck Screw Explanted:Qty: 5 on 07/16/2019 by Charissa Holley MD at [facility] Screw Left: Foot [employer] / 0 / [employer] [id number] Laxmi .062in 9in 1 Trocar Smooth Wire Fixation - S0 - [id number] Explanted:Qty: 1 on 07/16/2019 by Charissa Holley MD at [facility] Wire Left: Foot [employer] [id number] / 0 / Description:Provisional fixa tion [employer] [id number] Sirimann 5/64in 9in Trocar Point One End Pin Fixation Stainless - S0 - [id number] Explanted:Qty: 1 on 07/16/2019 by Charissa Holley MD at [facility] Wire Left: Foot [employer] [id number] / 0 / Description:Provisional Fixa tion Procedures Procedure Name Priority Date/Time Associated Diagnosis Comments CBC WITH AUTO DIFFERENTIAL Routine 02/13/2024 9:20 AM RN X RAY Pure hypercholesterolemia LIPID PANEL Routine 02/13/2024 9:20 AM RN X RAY Pure hypercholesterolemia COMPREHENSIVE METABOLIC PANEL Routine 02/13/2024 9:20 AM RN X RAY Pure hypercholesterolemia THYROID FUNCTION CASCADE Routine 02/13/2024 9:20 AM RN X RAY Pure hypercholesterolemia MRI ABDOMEN LIVER W WO CONTRAST Schedule Routine, Read Routine (OP Routine) 02/05/2024 4:54 PM RN X RAY Liver mass US GALLBLADDER Schedule Routine, Read Routine (OP Routine) 02/05/2024 3:03 PM RN X RAY Right upper quadrant abdominal pain NM HEPATOBILIARY IMAGING W PHARMACEUTICAL INTERVENTION Schedule Routine, Read Routine (OP Routine) 02/05/2024 10:14 AM RN X RAY Right upper quadrant abdominal pain MRI BRAIN W WO CONTRAST (PITUITARY) Schedule Routine, Read Routine (OP Routine) 02/02/2024 8:12 AM RN X RAY Pituitary adenoma (HCC) XR FOOT RIGHT 3 OR MORE VIEWS Schedule Routine, Read Routine (OP Routine) 01/01/2024 5:27 PM RN X RAY Right foot pain XR ANKLE RIGHT 2 VIEWS Schedule Routine, Read Routine (OP Routine) 01/01/2024 5:27 PM RN X RAY Acute right ankle pain PAP WITH REFLEX TO HIGH RISK HPV Routine 11/09/2023 3:20 PM CDT Encounter for well woman exam with routine gynecological exam from Last 3 Months or Most Recently Relevant to Health Maintenance Results * Thyroid Function [place] (02/13/2024 9:20 AM RN X RAY) TSH 4.020 0.450 - 4.500 uIU/mL [facility] - 01 Comment: No apparent thyroid disorder. Additional testing not indicated. In rare instances, Secondary Hypothyroidism as well as Subclinical Hypothyroidism have been reported in some patients with normal TSH values. Blood 02/13/2024 9:20 AM RN X RAY 02/13/2024 Narrative [facility] - 02/14/2024 7:35 AM RN X RAY Performed at: ??01 - [facility] [address] ??[id number] Geometry Professor: Tiago Che PhD, Phone: ??[phone] us Daily Cruz MD LAB BLOOD ORDERABLES Karen l Result [facility] - 01 * CBC with auto differential (02/13/2024 9:20 AM RN X RAY) WBC 9.0 3.4 - 10.8 x10E3/uL [facility] [...] [facility] - 01 Blood 02/13/2024 9:20 AM RN X RAY 02/13/2024 Narrative [facility] - 02/14/2024 7:35 AM RN X RAY Performed at: ?? - [facility] [address] ??[id number] Geometry Professor: Tiago Che PhD, Phone: ??[phone] Daily Cruz MD LAB BLOOD ORDERABLES Karen l [facility] * (ABNORMAL) Lipid panel (02/13/2024 9:20 AM RN X RAY) Cholesterol 163 100 - 199 mg/dL [facility] - 01 Triglycerides 75 0 - 149 mg/dL [facility] - 01 HDL Cholesterol 45 >39 mg/dL [facility] - 01 VLDL 14 5 - 40 mg/dL [facility] - 01 LDL, calculated 104(H) 0 - 99 mg/dL [facility] - 01 Blood 02/13/2024 9:20 AM RN X RAY 02/13/2024 Narrative [facility] - 02/14/2024 7:35 AM RN X RAY Performed at: ?? - [facility] [address] ??[id number] Geometry Professor: Tiago Che PhD, Phone: ??[phone] Daily Cruz MD LAB BLOOD ORDERABLES Karen l Result [facility] - 01 * Comprehensive metabolic panel (02/13/2024 9:20 AM RN X RAY) Glucose 79 70 - 99 mg/dL [facility] [...] [facility] - 01 Blood 02/13/2024 9:20 AM RN X RAY 02/13/2024 Narrative [facility] - 02/14/2024 7:35 AM RN X RAY Performed at: ??01 - [facility] [address] ??[id number] Geometry Professor: Tiago Che PhD, Phone: ??[phone] Daily Cruz MD LAB BLOOD ORDERABLES Karen prater Result [facility] - 01 * MRI Abdomen Liver W WO Contrast (02/05/2024 4:54 PM RN X RAY) Anatomical Region Laterality Modality Body N/A Magnetic Resonan ce 02/05/2024 5:34 PM RN X RAY Impressions 02/06/2024 8:07 AM RN X RAY T2 hyperintense enhancing lesion in hepatic segment 4B most characteristic of a flash filling hemangioma Dictated by: Bobby Yuan MD, PHD The radiology attending physician has personally reviewed this study, and had reviewed and/or edited this written report and agrees with it. Electronically signed by: Kyle Quinn M.D. Narrative 02/06/2024 8:07 AM RN X RAY EXAMINATION: MAGNETIC RESONANCE IMAGING OF THE ABDOMEN [...] by: Kyle Quinn M.D. us Alecia Shaver NP IMG MRI PROCEDURES Final Resul t * US Gallbladder (02/05/2024 3:03 PM RN X RAY) Anatomical Region Laterality Modality Abdomen N/A Ultrasound 02/05/2024 3:04 PM RN X RAY Impressions 02/05/2024 5:20 PM RN X RAY Normal gallbladder without evidence of cholelithiasis or acute cholecystitis. Dictated by: Janes Ibarra M.D. The radiology attending physician has personally reviewed this study, and had reviewed and/or edited this written report and agrees with it. Electronically signed by: Papo Denson M.D. Narrative 02/05/2024 5:20 PM RN X RAY EXAMINATION: ??LIMITED ABDOMINAL SONOGRAM ??(GALLBLADDER) HISTORY: ??33-year-old [...] Electronically signed by: Papo Denson M.D. us Aleciasa Shaver [employer] IMG US PROCEDURES Final Result * NM Hepatobiliary Imaging W GBEF (02/05/2024 10:14 AM RN X RAY) Anatomical Region Laterality Modality Body N/A Nuclear Medicine 02/05/2024 11:5 1 AM RN X RAY Impressions 02/05/2024 1:14 PM RN X RAY 1. ??Normal contractile response of gallbladder ??to sincalide infusion. 2. ??Normal biliary imaging study. Dictated by: Tammy Schulte MD The radiology attending physician has personally reviewed this study, and had reviewed and/or edited this written report and agrees with it. Electronically signed by: Juan Hess MD, Ph.D Narrative 02/05/2024 1:14 PM RN X RAY EXAMINATION: ??HEPATOBILIARY SCINTIGRAPHY DATE OF STUDY: 02/05/2024 [...] results of this study was sent to [employer]/PACS by the interpreting physician Dr. Hess. Procedure [...] results of this study was sent to [employer]/PACS by the interpreting physician Dr. Hess. IMPRESSION: 1. Normal contractile response of gallbladder to sincalide infusion. 2. Normal biliary imaging study. Dictated by: Tammy Schulte MD The radiology attending physician has personally reviewed this study, and had reviewed and/or edited this written report and agrees with it. Electronically signed by: Juan Hess MD, Ph.D us Alecia Shaver [employer] IMG NM PROCEDURES Final Result * MRI Brain W WO Contrast (Pituitary) (02/02/2024 8:12 AM RN X RAY) Anatomical Region Laterality Modality Head and Neck N/A Magnetic Resonan ce 02/02/2024 9:28 AM RN X RAY Impressions 02/02/2024 9:28 AM RN X RAY Stable since 2022, intrinsically T1 hyperintense 7 mm hypoenhancing nodule along/within the anterior pituitary gland. ??Differential again primarily includes Rathke's cleft cyst versus pituitary microadenoma. Electronically signed by: Marie Leblanc M.D. Narrative 02/02/2024 9:28 AM RN X RAY EXAMINATION: Magnetic resonance imaging (MRI) of the [...] by: Marie Leblanc M.D. Ange Chavez MD [facility] MRI PROCEDURES F inal Result * XR Foot Right 3+ View (01/01/2024 5:27 PM RN X RAY) Anatomical Region Laterality Modality Lower Extremities, Foot Right Computed Radiography 01/02/2024 5:59 AM RN X RAY Impressions 01/02/2024 5:59 AM RN X RAY 1. ??Unchanged solidly fuse/healed instrumented 1st tarsometatarsal joint arthrodesis and great toe proximal phalanx osteotomy Electronically signed by: Julio C Estrada MD, PHD Narrative 01/02/2024 5:59 AM RN X RAY EXAMINATION: Right ankle 2 views; right foot [...] by: Julio C Estrada MD, PHD Selam Orosco [employer] IMG XR PROCEDURES Final Resul t * XR Ankle Right 2 Views (01/01/2024 5:27 PM RN X RAY) Anatomical Region Laterality Modality Lower Extremities, Ankle Right Compute d Radiography 01/02/2024 5:59 AM RN X RAY Impressions 01/02/2024 5:59 AM RN X RAY 1. ??Unchanged solidly fuse/healed instrumented 1st tarsometatarsal joint arthrodesis and great toe proximal phalanx osteotomy Electronically signed by: Julio C Estrada MD, PHD Narrative 01/02/2024 5:59 AM RN X RAY EXAMINATION: Right ankle 2 views; right foot [...] by: Julio C Estrada MD, PHD Selam Orosco [employer] IMG XR PROCEDURES Final Resul t * (ABNORMAL) Pap with reflex to High Risk HPV and Genotyping (Cytology Component) (11/09/2023 3:20 PMCDT) Thin prep (Pap test) 11/09/2023 3:20 PM CDT 11/10/2023 12:14 AM CDT Narrative PATHOLOGY [facility] - 11/20/2023 8:08 PM CDT EPIC results best viewed via link to PDF [facility] [place] [address] [place] [address] Note to Patients: This report may contain [...] Gender: ??F : ??1990 (Age: 33) Address: ??[facility] [address] [place], [place] ??[address] Hospital #: ??[id number] Service: ??UNKNOWN Location: ?? Patient Type: ??[facility] SPECIMEN Taken: ??11/09/2023 Received: ??11/10/2023 Accessioned: ??11/13/2023 Reported: ??11/20/2023 Physician(s): ??Dr. Daily Cruz M.D. ?? FINAL INTERPRETATION SOURCE OF SPECIMEN ? Liquid based Thin Prep pap with Reflex HPV: STATEMENT OF ADEQUACY ?- Satisfactory for evaluation ?- Endocervical cells/transformation zone sample present ? GENERAL CATEGORIZATION: ?- EPITHELIAL CELL ABNORMALITY ? INTERPRETATION: ?- Atypical squamous cells of undetermined significance ? wp/11/20/2023 20:08 By this signature, I attest that the above diagnosis is based upon my personal examination of the slides(and/or other material indicated in the diagnosis). ? Milagro Boss M.D. Report Electronically Reviewed and Signed Out By Néstor Alberto DO 11/20/2023 20:08:31 Fabiola Murali MS, CT (ASCP) Cervicovaginal Cytology (Pap Test) Disclaimer: The Pap test is a screening test used to detect cervical cancer and its precursors; it is not a diagnostic procedure. False negative and false positive results do occur. Pap test results should be interpreted in the context of pertinent clinical information and biopsy results as indicated. [facility] Clinical Laboratory Improvement Amendments (CLIA) mandate that cytologic and histologic results be correlated for laboratory quality assurance qa lab analyst & improvement standards. ??FOR ALL HIGH-GRADE CASES [...] this test have been verified by the [facility] laboratory. ??Correlate with reported [...] determined by the Surgical Pathology Department at [facility] as part of an ongoing quality assurance monitor final program and in compliance with federally mandated [...] as a high complexity laboratory under CLIA '88. ??The FDA has determined that such clearance [...] determined by the Surgical Pathology Department of [facility]. ??It has not been cleared or approved by the U. S. Food and Drug Administration. Daily Cruz MD LAB CYTOLOGY ORDERABLES F inal Result [facility] from Last 3 Months or Most Recently Relevant to Health Maintenance Insurance [facility] CHOICE PLUS [facility] CHOICE PLUS [facility] CHOICE PLUS Care Teams Supervisor [employer] Relationship Specialty Start Date End Date Daily Cruz MD PCP - General Family Medicine 03/04/21 Savannah Holt PA [address] [facility], [place] [address] Physician Component Lab Tech Neurology 06/07/23 Ange Chavez MD [address] [place], [place] [address] [address] [address] Consulting Physician Endocrinology 06/07/23
--- OUTSIDE RECORDS SUMMARY | 2024-02-21 19:32 | XMS_ITS | Encounter Summary ---
Author Organization [facility] Address [address] [place] [address] Phone Care Team Providers Care Block Cleaner Name Role Phone Daily Cruz MD Primary Care Provider [phone] Savannah Holt Unavailable [phone] Ange Chavez MD Unavailable [phone] Reason for Referral * Diagnostic Imaging (Routine) - Closed Specialty Diagnoses / Procedures Referred By Contac t Referred To Contact Diagnoses Acute right ankle pain Procedures XR Ankle Right 2 Views Selam Orosco NP [address] [facility] [address] [place] [address] Phone: tel: fax: [facility] Referral ID Status Reason Start Date Expiration Date Visits Re quested Visits Authorized [id number] Closed 01/01/2024 01/30/2025 1 1 END RIDER Reason for Visit * Reason Comments Pain Encounter Details Date Type Department Care Team (Late st Contact Info) Description 01/01/2024 5:15 PM TAIL END RIDER [facility] Visit [facility] - [facility] [address] [facility] [address] [place] [address] [place] [address] Selam Orosco NP [address] [facility] [address] [place] [address] Acute right ankle pain (Primary Dx); Right foot pain Social History Tobacco Use Types Packs/Day Years [...] on file Legal Sex Female 3:37 PM TAIL END RIDER Gender Identity Female 03/02/2020 4:27 PM TAIL END RIDER Sexual Orientation Straight 07/10/2019 11 :13 PM CDT documented as of this encounter Last Filed Vital Signs Vital Sign Reading Time Taken Comments Blood Pressure - - Pulse - - Temperature - - Respiratory Rate - - Oxygen Saturation - - Inhaled Oxygen Concentration - - Weight 117.9 kg (260 lb) 01/01/2024 5:17 PM TAIL END RIDER Height 170.2 cm (5' 7 ) 01/01/2024 5:17 PM TAIL END RIDER Body Mass Index 40.72 01/01/2024 5:17 PM TAIL END RIDER documented in this encounter Patient Instructions * Patient Instructions* Selam Orosco NP - 01/01/2024 5:15 PM TAIL END RIDER Images from the original note were not included. Jud Crocker 1990 Right ankle sprain. Possible peroneal tendon strain. TO DO: Tall walker boot with all weight-bearing. May remove the boot every 2 hours and perform ankle pumps to improve circulation. Do not need to sleep in the boot. Apply Kalen wrap to the ankle at night and elevate above the chest. [id number] anti-inflammatories as needed Follow up in 2 weeks The recommendations you received in the Orthopedic [...] your primary care provider. Selam Orosco NP END RIDER documented in this encounter Progress Notes * Selam Orosco NP - 01/01/2024 5:15 PM CST ORTHOPEDIC INJURY CLINIC PATIENT VISIT CHIEF COMPLAINT Possible sprained right ankle REFERRING PROVIDER Self Referral HISTORY OF PRESENT ILLNESS Jud Crocker is a 33 y.o. presenting today after she rolled the right ankle 2 days ago. Describes while walking into the [place], stepping down off the curb and rolled the ankle and heard a loud pop. Immediately was not able to bear weight and developed diffuse paresthesia. The paresthesia abated and began compression, icing and elevation. She does have moderate, aching, lateral ankle pain. Still having difficulty with weight-bearing, resulting in a limp. PAST MEDICAL HISTORY She has a past medical history of ADHD (attention deficit hyperactivity disorder), Allergic rhinitis, Anxiety, Arthritis, Asthma, Brain concussion (2010, 2009), Chronic bronchitis (HCC), Depression, Ear problems, Gastric reflux, GERD (gastroesophageal reflux disease), Hypertension, essential (2022), IIH (idiopathic intracranial hypertension), Irritability, Jaundice, Kidney stone (2019), Lowback pain, Lymphedema, Memory loss, Migraines, Motion sickness, Nosebleed, Obesity, Peptic ulceration, Pneumonia (12/2019), PONV (postoperative nausea and vomiting), Reactive airway disease, Seasonalallergies, Seizure (HCC) (04/25/2017), Seizures (HCC), Sinusitis, Sleep difficulties, SOB (shortness of breath), and Tinnitus. PAST SURGICAL HISTORY She has a past surgical history that includes Laparoscopic endometriosis fulguration (2017); Wisdomtooth extraction; Foot surgery (Bilateral, 2019); Foot surgery (07/16/2019); Abdominal surgery; Tonsillectomy; Knee surgery (01/2022); Knee arthroscopy w/ lateral release (2021, 2020); Nasal endoscopy; and Foot neuroma surgery (Left, 08/2023). INITIAL REVIEW OF MEDICATIONS She has a current medication list which includes the following prescription(s): albuterol, albuterol hfa, cholecalciferol, nurtec odt, botox cosmetic, wegovy, and zavzpret. ALLERGIES She is allergic to acetazolamide, dihydroergotamine, hydrochlorothiazide, latex, nickel, topiramate, hydrocodone-acetaminophen, lamotrigine, levetiracetam, and oxycodone-acetaminophen. SOCIAL HISTORY She reports that she has never smoked. She has been exposed to tobacco smoke. She has never used smokeless tobacco. She reports that she does not currently use drugs after having used the following drugs: Alcohol. FAMILY HISTORY Her family history includes Alcohol abuse in her mother; Arthritis in her father, mother, and sister; Bleeding Disorder in her mother; COPD in her mother; Depression in her father, mother, sister, and sister; Diabetes in her mother; Drug abuse in her mother; Hearing loss in her father; Heart attackin her father and mother; Hypertension in her father, mother, and sister; Kidney disease in her mother; Mental illness in her father, mother, and sister; Miscarriages / Stillbirths in her mother; Rashes / Skin problems in her sister; Seizures in her mother and sister; Stroke in her mother, paternalgrandmother, and sister; Vision loss in her father and mother. 10/02/2020 10/05/2020 11/02/2020 12/11/2020 08/30/2021 11/04/2021 PROMIS Pain Interference 56 71.6 66.9 56 66.9 66.9 Physical Function V2.0 41.2 32.6 32.1 45.9 35.5 34.6 Anxiety V1.0 56 57.7 61.5 59.8 54.1 64.9 Depression 57.5 60.6 57.5 57.5 49.5 51.7 PHYSICAL EXAMINATION CONSTITUTIONAL: Well-appearing, in no apparent distress EYES: No scleral icterus or conjunctival hemorrhage CARDIOVASCULAR: Skin warm and well-perfused, no peripheral edema RESPIRATORY: Breathing unlabored without accessory muscle use PSYCHIATRIC: Alert, cooperative, appropriate mood and affect SKIN: No lesions or rashes on exposed skin MUSCULOSKELETAL: Gait short stride. Right ankle exam: Mild swelling to the lateral malleolus. No ecchymosis. Tender palpation lateral malleolus, ATFL, CFL. Mild tenderness posterior to the lateral malleolus. No tenderness over the medial malleolus. Achilles tendon intact. Negative calcaneal squeeze. Ankle inversion reproduces pain. Mild pain with talar tilt. Negative anterior drawers. Negative metatarsal squeeze. No tenderness to the midfoot. NEUROLOGIC: Sensation intact to the right lower extremity REVIEW OF IMAGING/STUDIES Three views right foot and ankle taken reviewed with her today. My independent interpretation: No fracture. Mild soft tissue swelling over lateral ankle. IMPRESSION/DIAGNOSIS Right ankle sprain, possible peroneal tendon strain TREATMENT/PLAN History, exam, imaging findings and working diagnosis are reviewed with the patient today. Explained the natural history of the condition and reviewed in detail treatment options. Tall walker boot with all weight-bearing. May remove the boot every 2 hours and perform ankle pumps to improve circulation. Do not need to sleep in the boot. Apply Kalen wrap to the ankle at night and elevate above the chest. [id number] anti-inflammatories as needed Follow up in 2 weeks Selam Orosco RN, ANP-[facility] Orthopedics Division of Physical Medicine and Rehabilitation In collaboration with Dr. Sandoval Portions of this note were dictated using M*Modal Fluency Direct speech recognition software. END RIDER documented in this encounter Plan of Treatment [...] documented as of this encounter Results * XR Foot Right 3+ View (01/01/2024 5:27 PM TAIL END RIDER) Anatomical Region Laterality Modality Lower Extremities, Foot Right Computed Radiography 01/02/2024 5:59 AM TAIL END RIDER Impressions 01/02/2024 5:59 AM TAIL END RIDER 1. ??Unchanged solidly fuse/healed instrumented 1st tarsometatarsal joint arthrodesis and great toe proximal phalanx osteotomy Electronically signed by: Julio C Estrada MD, PHD Narrative 01/02/2024 5:59 AM TAIL END RIDER EXAMINATION: Right ankle 2 views; right foot [...] Julio C Estrada MD, PHD Selam Orosco NP IMG XR PROCEDURES Final Resul t * XR Ankle Right 2 Views (01/01/2024 5:27 PM TAIL END RIDER) Anatomical Region Laterality Modality Lower Extremities, Ankle Right Compute d Radiography 01/02/2024 5:59 AM TAIL END RIDER Impressions 01/02/2024 5:59 AM TAIL END RIDER 1. ??Unchanged solidly fuse/healed instrumented 1st tarsometatarsal joint arthrodesis and great toe proximal phalanx osteotomy Electronically signed by: Julio C Estrada MD, PHD Narrative 01/02/2024 5:59 AM TAIL END RIDER EXAMINATION: Right ankle 2 views; right foot [...] Julio C Estrada MD, PHD Selam Orosco NP IMG XR PROCEDURES Final Resul t documented in this encounter Visit Diagnoses Diagnosis Acute right ankle pain- Primary Right foot pain Pain in soft tissues of limb Acute right ankle pain Right foot pain Pain in soft tissues of limb documented in this encounter Historical Medications * This list may reflect changes made after this encounter. Medication Sig Dispense Quantity Refills Last Filled Start D ate End Date cholecalciferol (VITAMIN D-3) 50,000 unit capsule 01/01/2024 added in this encounter Care Teams Block Cleaner Relationship Specialty Start Date End Date Daily Cruz MD PCP - General Family Medicine 03/04/21 Savannah Holt PA [address] [facility] NEUROLOGY [address] [phone] Physician Signal And Communications Maintainer Neurology 06/07/23 Ange Chavez MD [address] [phone] Consulting Physician Endocrinology 06/07/23 documented as of this encounter
--- OUTSIDE RECORDS SUMMARY | 2024-02-21 19:32 | XMS_ITS | Encounter Summary ---
Author Organization [facility] Healthcare Address [address] [place] [address] Care Team Providers Care School Inspector Name Role Phone Daily Cruz MD Primary Care Provider [phone] Savannah Holt Unavailable [phone] Ange Chavez MD Unavailable [phone] Reason for Referral * MRI/CAT/PET Scan (Routine) - Closed Specialty Diagnoses / Procedures Referred By Matt burk Referred To Contact Radiology Diagnoses Pituitary adenoma (HCC) Procedures MRI Brain W WO Contrast (Pituitary) Ange Chavez MD Phone: tel: fax: [address] [address] Referral ID Status Reason Start Date Expiration Date Visits Re quested Visits Authorized [id number] Closed 02/22/2023 03/23/2024 1 1 STERED MEDICAL ASSISTANT Reason for Visit * MRI/CAT/PET Scan (Routine) - Closed Specialty Diagnoses / Procedures Referred By Matt burk Referred To Contact Radiology Diagnoses Pituitary adenoma (HCC) Procedures MRI Brain W WO Contrast (Pituitary) Ange Chavez MD Phone: tel: fax: [address] [address] Referral ID Status Reason Start Date Expiration Date Visits Re quested Visits Authorized [id number] Closed 02/22/2023 03/23/2024 1 1 Encounter Details Date Type Department Care Team (Latest Contact Info) Description 02/02/2024 6:41 AM REGISTERED MEDICAL ASSISTANT - 02/02/2024 11:59 PM REGISTERED MEDICAL ASSISTANT Hospital Encounter [facility] [address] [place] [address] Pituitary adenoma (HCC) Discharge Disposition: Discharge to [...] on file Legal Sex Female 3:37 PM REGISTERED MEDICAL ASSISTANT Gender Identity Female 03/02/2020 4:27 PM REGISTERED MEDICAL ASSISTANT Sexual Orientation Straight 07/10/2019 11 :13 PM [...] mL 01/24/2024 zavegepant (Zavzpret) 10 mg/actuation spray,non-aeroso lIndications:Gerhadr ai Administer 1 spray into affected nostril(s) daily as needed (migraine) 6 each 2 07/14/2023 documented as of this encounter Discharge Disposition Disposition Code Departure Means Destination Discharge to home or self care documented in this encounter Miscellaneous Notes * Result Encounter Note - Ange Chavez MD - 02/02/2024 11:59 PM CST Hi Your pituitary lesion is unchanged in size which is good news! JS STERED MEDICAL ASSISTANT documented in this encounter Plan of Treatment [...] Name Priority Date/Time Associated Diagnosis Comments MRI BRAIN W WO CONTRAST (PITUITARY) Schedule Routine, Read Routine (OP Routine) 02/02/2024 8:12 AM REGISTERED MEDICAL ASSISTANT Pituitary adenoma (HCC) documented in this encounter Results * MRI Brain W WO Contrast (Pituitary) (02/02/2024 8:12 AM REGISTERED MEDICAL ASSISTANT) Anatomical Region Laterality Modality Head and Neck N/A Magnetic Resonan ce 02/02/2024 9:28 AM REGISTERED MEDICAL ASSISTANT Impressions 02/02/2024 9:28 AM REGISTERED MEDICAL ASSISTANT Stable since 2022, intrinsically T1 hyperintense 7 mm hypoenhancing nodule along/within the anterior pituitary gland. ??Differential again primarily includes Rathke's cleft cyst versus pituitary microadenoma. Electronically signed by: Marie Leblanc M.D. Narrative 02/02/2024 9:28 AM REGISTERED MEDICAL ASSISTANT EXAMINATION: Magnetic resonance imaging (MRI) of the [...] MD IMG MRI PROCEDURES F inal Result documented in this encounter Visit Diagnoses Diagnosis Pituitary adenoma (HCC) Benign neoplasm of pituitary gland and craniopharyngeal duct (pouch) documented in this encounter Administered Medications Inactive Administered Medications - up to 3 most recent administrations Medication Order MAR Action Action Date Dose Rate Site gadoterate meglumine injection 20 mL 20 mL, intravenous, Once in imaging, contrast, Starting on Mon02/02/24 at 0811, For 1 dose Contrast Given 02/02/2024 8:12 AM REGISTERED MEDICAL ASSISTANT 20 mL documented in this encounter Orders Medications Ordered That Gerhard ht Not Have Been Administered Count Last Ordered Date First Ordered Date gadoterate meglumine injection 20 mL 1 01/14 documented in this encounter Care Teams School Inspector Relationship Specialty Start Date End Date Daily Cruz MD PCP - General Family Medicine 03/04/21 Savannah Holt PA [address] [facility] NE[facility] [address] [address] Physician Adjunct Faculty Mathematics Department Neurology 06/07/23 Ange Chavez MD [address] [facility] NE[facility] [address] [address] Consulting Physician Endocrinology 06/07/23 documented as of this encounter
--- OUTSIDE RECORDS SUMMARY | 2024-02-21 19:32 | XMS_ITS | Encounter Summary ---
Author Organization [facility] Healthcare Address [address] [place] [address] Care Team Providers Care Multilith Operator Name Role Phone Daily Cruz MD Primary Care Provider [phone] Savannah Holt Unavailable Ange Chavez MD Unavailable [phone] Reason for Referral * Diagnostic Imaging (Routine) - Closed Specialty Diagnoses / Procedures Referred By Contac t Referred To Contact Diagnoses Acute right ankle pain Procedures XR Ankle Right 2 Views Selam Orosco NP [address] [facility] [address] [place] [address] Phone: tel: fax: [facility] Referral ID Status Reason Start Date Expiration Date Visits Re quested Visits Authorized [id number] Closed 01/01/2024 01/30/2025 1 1 L CLEANER Reason for Visit * Diagnostic Imaging (Routine) - Closed Specialty Diagnoses / Procedures Referred By Contac t Referred To Contact Diagnoses Acute right ankle pain Procedures XR Ankle Right 2 Views Selam Orosco NP [address] [facility] [address] [place] [address] Phone: tel: fax: [facility] Referral ID Status Reason Start Date Expiration Date Visits Re quested Visits Authorized [id number] Closed 01/01/2024 01/30/2025 1 1 Encounter Details Date Type Department Care Team (Latest Contact Info) Description 01/01/2024 5:23 PM QUILL CLEANER - 01/01/2024 11:59 PM QUILL CLEANER Hospital Encounter [facility] Radiology at [facility] [address] [place] [address] Acute right ankle pain; Right foot pain [...] on file Legal Sex Female 3:37 PM QUILL CLEANER Gender Identity Female 03/02/2020 4:27 PM QUILL CLEANER Sexual Orientation Straight 07/10/2019 11 :13 PM [...] cholecalciferol (VITAMIN D-3) 50,000 unit capsule 01/01/2024 Nurtec ODT tablet,disintegr atingIndications :New daily persistent headache Take 1 tablet (75 mg total) by mouth every other day 06/08/2023 onabotulinumtoxi nA, cosmetic, (Botox Cosmetic) 50 unit recon soln as directed Intramuscular zavegepant (Zavzpret) 10 mg/actuation spray,non-aeroso lIndications:Gerhard ai Administer 1 spray into affected nostril(s) daily as needed (migraine) 6 each 2 07/14/2023 semaglutide (Wegovy) 0.25 mg/0.5 mL auto-injectorInd ications:Morbid obesity with BMI of 40.0-44.9, adult (HCC) Inject 0.5 mL (0.25 mg total) under the skin every 7 days 2 mL 1 12/29/2023 4 documented as of this encounter Discharge Disposition [...] Procedure Name Priority Date/Time Associated Diagnosis Comments XR FOOT RIGHT 3 OR MORE VIEWS Schedule Routine, Read Routine (OP Routine) 01/01/2024 5:27 PM QUILL CLEANER Right foot pain XR ANKLE RIGHT 2 VIEWS Schedule Routine, Read Routine (OP Routine) 01/01/2024 5:27 PM QUILL CLEANER Acute right ankle pain documented in this encounter Results * XR Foot Right 3+ View (01/01/2024 5:27 PM QUILL CLEANER) Anatomical Region Laterality Modality Lower Extremities, Foot Right Computed Radiography 01/02/2024 5:59 AM QUILL CLEANER Impressions 01/02/2024 5:59 AM QUILL CLEANER 1. ??Unchanged solidly fuse/healed instrumented 1st tarsometatarsal joint arthrodesis and great toe proximal phalanx osteotomy Electronically signed by: Julio C Estrada MD, PHD Narrative 01/02/2024 5:59 AM QUILL CLEANER EXAMINATION: Right ankle 2 views; right foot [...] Julio C Estrada MD, PHD Selam Orosco [employer] IMG XR PROCEDURES Final Resul t * XR Ankle Right 2 Views (01/01/2024 5:27 PM QUILL CLEANER) Anatomical Region Laterality Modality Lower Extremities, Ankle Right Compute d Radiography 01/02/2024 5:59 AM QUILL CLEANER Impressions 01/02/2024 5:59 AM QUILL CLEANER 1. ??Unchanged solidly fuse/healed instrumented 1st tarsometatarsal joint arthrodesis and great toe proximal phalanx osteotomy Electronically signed by: Julio C Estrada MD, PHD Narrative 01/02/2024 5:59 AM QUILL CLEANER EXAMINATION: Right ankle 2 views; right foot [...] Julio C Estrada MD, PHD Selam Orosco [employer] IMG XR PROCEDURES Final Resul t documented in this encounter Visit Diagnoses Diagnosis Acute right ankle pain Right foot pain Pain in soft tissues of limb documented in this encounter Care Teams Multilith Operator Relationship Specialty Start Date End Date Daily Cruz MD PCP - General Family Medicine 03/04/21 Savannah Holt PA [address] [address] Physician Pharmaceutical Sales Neurology 06/07/23 Ange Chavez MD [address] [facility] NEUROLOGY [facility] [place] [address] Consulting Physician Endocrinology 06/07/23 documented as of this encounter
--- OUTSIDE RECORDS SUMMARY | 2024-02-21 19:32 | XMS_ITS | Encounter Summary ---
Author Organization [facility] Healthcare Address [address] [place] [address] Care Team Providers Care Child Care Aide Name Role Phone Daily Cruz MD Primary Care Provider [phone] Savannah Holt Unavailable [phone] Ange Chavez MD Unavailable [phone] Reason for Referral * Diagnostic Imaging (Routine) - Closed Specialty Diagnoses / Procedures Referred By Contac t Referred To Contact Diagnoses Right upper quadrant abdominal pain Procedures US Gallbladder Alecia Shaver NP [address] [facility] [facility] [address] [place] [address] Phone: tel: [address] [phone] Referral ID Status Reason Start Date Expiration Date Visits Re quested Visits Authorized [id number] Closed 02/28/2023 03/29/2024 1 1 IAGE COUNSELOR Reason for Visit * Diagnostic Imaging (Routine) - Closed Specialty Diagnoses / Procedures Referred By Contac t Referred To Contact Diagnoses Right upper quadrant abdominal pain Procedures US Gallbladder Alecia Shaver NP [address] [facility] [facility] [address] [place] [address] [place] [address] Phone: tel: [address] [phone] Referral ID Status Reason Start Date Expiration Date Visits Re quested Visits Authorized [id number] Closed 02/28/2023 03/29/2024 1 1 Encounter Details Date Type Department Care Team (Latest Contact Info) Description 02/05/2024 7:12 AM MARRIAGE COUNSELOR - 02/05/2024 11:59 PM MARRIAGE COUNSELOR Hospital Encounter [facility] [address] [place] [id number] Right upper quadrant abdominal pain Discharge Disposition: [...] on file Legal Sex Female 3:37 PM MARRIAGE COUNSELOR Gender Identity Female 03/02/2020 4:27 PM MARRIAGE COUNSELOR Sexual Orientation Straight 07/10/2019 11 :13 PM [...] Procedure Name Priority Date/Time Associated Diagnosis Comments US GALLBLADDER Schedule Routine, Read Routine (OP Routine) 02/05/2024 3:03 PM MARRIAGE COUNSELOR Right upper quadrant abdominal pain documented in this encounter Results * US Gallbladder (02/05/2024 3:03 PM MARRIAGE COUNSELOR) Anatomical Region Laterality Modality Abdomen N/A Ultrasound 02/05/2024 3:04 PM MARRIAGE COUNSELOR Impressions 02/05/2024 5:20 PM MARRIAGE COUNSELOR Normal gallbladder without evidence of cholelithiasis or acute cholecystitis. Dictated by: Janes Naveh-Robert, M.D. The radiology attending physician has personally reviewed this study, and had reviewed and/or edited this written report and agrees with it. Electronically signed by: Papo Denson M.D. Narrative 02/05/2024 5:20 PM MARRIAGE COUNSELOR EXAMINATION: ??LIMITED ABDOMINAL SONOGRAM ??(GALLBLADDER) HISTORY: ??33-year-old [...] it. Electronically signed by: Papo Denson M.D. Alecia Shaver NP IMG US PROCEDURES Final Result documented in this encounter Visit Diagnoses Diagnosis Right upper quadrant abdominal pain documented in this encounter Care Teams Child Care Aide Relationship Specialty Start Date End Date Daily Cruz MD PCP - General Family Medicine 03/04/21 Savannah Holt PA [address] [facility] NEUR[facility] [address] [address] Physician Marketing Automation Manager Neurology 06/07/23 Ange Chavez MD [address] [facility] [address] [address] Consulting Physician Endocrinology 06/07/23 documented as of this encounter
--- OUTSIDE RECORDS SUMMARY | 2024-02-21 19:33 | XMS_ITS | Encounter Summary ---
Author Organization [facility] Address [address] [place] [address] Phone Care Team Providers Care Implementation Analyst Name Role Phone Daily Cruz MD Primary Care Provider [phone] Savannah Holt Unavailable [phone] Ange Chavez MD Unavailable [phone] Encounter Details Date Type Department Care Team (Late st Contact Info) Description 11/02/2023 Telephone [facility] General Neurology [address] 6th [address] [place] [address] Manish Silva RN Social History Tobacco Use Types Packs/Day Years [...] more points, staff should administer the PHQ-9) 0 11/22/2022 Personal Safety Answer Date Recorded Have you ever been in or are you currently in a harmful physical or emotional relationship or is someone making you feel afraid or unsafe? Denies 02/17/2023 Comments No Sex and Gender Information Value Date Recorded Sex Assigned at Not on file Legal Sex Female 3:37 PM LANDSCAPE ARCHITECT Gender Identity Female 03/02/2020 4:27 PM LANDSCAPE ARCHITECT Sexual Orientation Straight 07/10/2019 11 :13 PM CDT documented as of this encounter Miscellaneous Notes * Telephone Encounter - Manish Silva RN - 11/02/2023 9:13 AM CDT After learning of reschedule dates, patient desired to keep appointment for today 11/01 at 11 AM. Ignacia rescheduled her. * Telephone Encounter - Manish Silva RN - 11/02/2023 8:56 AM CDT Patient called to reschedule her appointment. 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 Appointment is for migraine and dizziness. Did discuss that most migraine treatment options are not recommended during . Call transferred to scheduling to reschedule appointment for later this year. documented in this encounter Plan of Treatment [...] on filedocumented in this encounter Care Teams Implementation Analyst Relationship Specialty Start Date End Date Daily Cruz MD PCP - General Family Medicine 1/20/22 Savannah Holt PA [address] [facility] NEUROLOGY [address] [address] Physician Nail Making Machine Tender Neurology 06/07/23 Ange Chavez MD [address] [facility] NEUROLOGY [address] [address] Consulting Physician Endocrinology 06/07/23 documented as of this encounter
--- OUTSIDE RECORDS SUMMARY | 2024-02-21 19:33 | XMS_ITS | Encounter Summary ---
Author Organization [facility] Healthcare Address [address] [place] [address] Care Team Providers Care Wire Welder Name Role Phone Daily Cruz MD Primary Care Provider [phone] Savannah Holt Unavailable Ange Chavez MD Unavailable [phone] Reason for Visit * Reason Onset Date Comments Medical Question/Miscellaneous 08/10/2023 Encounter Details Date Type Department Care Team (Late st Contact Info) Description 08/10/2023 Telephone [facility] Family Medicine at [facility] [address] [place] [phone] Daily Cruz MD [address] [place] [id number] Medical Question/Miscellaneous Social History Tobacco Use Types Packs/Day Years [...] on file Legal Sex Female 3:37 PM TRACTOR 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 She mentioned a medication that started with an L but couldn't remember the actual name. Please make pt outreach to discuss further. Does message need to be routed? Yes-Action Needed * Telephone Encounter - Estuardo Murray RN - 09/07/2023 4:27 PM CDT LMTCB * Telephone Encounter - Daily Cruz MD - 09/07/2023 4:21 PM CDT Which weight loss medication is she interested in : phentermine, qsymia, contrave, zepbound, wegovy? * Telephone Encounter - Annette Hubbard - 08/10/2023 10:58 AM CDT Medical Question/Miscellaneous Caller???s Concern: She called and is asking if she can get a script for weight loss medications. She said they have talked about it in the past and didn't know if she needed to have an appointment or if there was something she could get. Please advise either phone call or mychart. Does message need to be routed? Yes-Action Needed documented in this encounter Plan of Treatment [...] Diagnoses Not on filedocumented in this encounter Additional Health Concerns Infection Onset Date Last Indicated Resolved Time COVID: Suspected 10/19/2023 10/19/2023 10/19/2023 3:12 PM CDT documented as of this encounter Care Teams Wire Welder Relationship Specialty Start Date End Date Daily Cruz MD PCP - General Family Medicine 03/04/21 Savannah Holt PA [address] [facility] DIV NEUROLOGY [facility], [address] [address] Physician Neon Light Installer Neurology 06/07/23 Ange Chavez MD [address] [facility], [address] [address] Consulting Physician Endocrinology 06/07/23 documented as of this encounter
--- OUTSIDE RECORDS SUMMARY | 2024-02-21 19:33 | XMS_ITS | Encounter Summary ---
Author Organization [facility] Healthcare Address [address] [place] [address] Care Team Providers Care Drafter Cartographic Name Role Phone Daily Cruz MD Primary Care Provider [phone] Savannah Holt Unavailable [phone] Ange Chavez MD Unavailable [phone] Encounter Details Date Type Department Care Team (Late st Contact Info) Description 11/28/2023 Telephone [facility] Family Medicine at [facility] [address] [address] [place] [address] [place] [address] [address] [place] [address] Social History Tobacco Use Types Packs/Day [...] on file 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 Gender Identity Female 03/02/2020 4:27 PM COMPUTER ASSISTANT Sexual Orientation Straight 07/10/2019 11 :13 PM CDT documented as of this encounter Miscellaneous Notes * Telephone Encounter - Lauren Carrion MA - 12/13/2023 9:57 AM CDT [facility] Approved Bhakta: [id number] Approved on December 03 by [employer] 2016 CaseId:[id number];Status:Approved;Review Type:Prior Auth;Coverage Start Date:10/29/2023;Coverage End Date:12/03/2024; Authorization Expiration Date: 12/02/2024 * Telephone Encounter - Lisa Zurita MA - 11/28/2023 9:22 AM CDT PA for [facility] started on CMM (Bhakta: [id number]) documented in this encounter Plan of Treatment [...] on filedocumented in this encounter Care Teams Drafter Cartographic Relationship Specialty Start Date End Date Daily Cruz MD PCP - General Family Medicine 03/04/21 Savannah Holt PA [address] [facility] NEUROLOGY [address] [address] Physician Blood Collector Neurology 06/07/23 Ange Chavez MD [address] [facility] NEUROLOGY [address] [address] Consulting Physician Endocrinology 06/07/23 documented as of this encounter
--- OUTSIDE RECORDS SUMMARY | 2024-02-21 19:33 | XMS_ITS | Encounter Summary ---
Author Organization [facility] Healthcare Address [address] [place] [address] Care Team Providers Care Shot Core Drill Operator Helper Name Role Phone Daily Cruz MD Primary Care Provider [phone] Savannah Holt Unavailable [phone] Ange Chavez MD Unavailable [phone] Reason for Referral * MRI/CAT/PET Scan (Routine) - Closed Specialty Diagnoses / Procedures Referred By Matt burk Referred To Contact Radiology Diagnoses Hemangioma of intra-abdominal structure Procedures MRI Abdomen W WO Contrast Ivory Pope NP [address] [place] [address] [address] RAHMAN [address] [place] [address] Phone: tel: fax: [place] [id number] [place] [address] Referral ID Status Reason Start Date Expiration Date Visits Re quested Visits Authorized [id number] Closed 10/19/2023 11/17/2024 1 1 Reason for Visit * Reason Comments Sore Throat Cough Headache Nausea Encounter Details Date Type Department Care Team (Late st Contact Info) Description 10/19/2023 2:30 PM CDT Office Visit [facility] Family Medicine [address] [facility] [address] [place] [address] Ivory Pope NP [address] [facility] [address] [address] Upper respiratory tract infection, unspecified type (Primary Dx); Late menses; Hemangioma of intra-abdominal structure; Rash and nonspecific skin eruption; Morbid obesity with BMI of 40.0-44.9, adult (HCC) Social History Tobacco Use Types [...] on file 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 Gender Identity Female 03/02/2020 4:27 PM HOSPITAL SUPERVISOR Sexual Orientation Straight 07/10/2019 11 :13 PM CDT documented as of this encounter Last Filed Vital Signs Vital Sign Reading Time Taken Comments Blood Pressure 112/60 10/19/2023 2:35 PM CDT Pulse 91 10/19/2023 2:35 PM CDT Temperature 36.3 ??C (97.4 ??F) 10/19/2023 2:35 PM CD T Respiratory Rate - - Oxygen Saturation 98% 10/19/2023 2:35 PM CDT Inhaled Oxygen Concentration - - Weight 119.7 kg (263 lb 12.8 oz) 10/19/2023 2:35 PM CDT Height 170.2 cm (5' 7.01 ) 10/19/2023 2:35 PM CD T Body Mass Index 41.3 10/19/2023 2:35 PM CDT documented in this encounter Ordered Prescriptions Prescription Sig Dispense Quantity Refills Last Filled Start Date End Date amoxicillin-clavul anate (AUGMENTIN) 875-125 mg per tabletIndications: Upper respiratory tract infection, unspecified type Take 1 tablet by mouth 2 (two) times a day for 10 days 20 tablet 10/19/2023 10/27/2023 amoxicillin-clavul anate (AUGMENTIN) 875-125 mg per tabletIndications: Upper respiratory tract infection, unspecified type Take 1 tablet by mouth 2 (two) times a day for 10 days 20 tablet 10/19/2023 10/19/2023 documented in this encounter Progress Notes * Ivory Pope, OSCAR - 10/19/2023 2:30 PM CDT Images from the original note were not included. CC: Chief Complaint Patient presents with Sore Throat Cough Headache Nausea HPI: Jud Crocker is a 33 y.o. year old female with a 7 day history of URI. Has taken Excedrin for pain. URI This is a new problem. The current episode started in the past 7 days. Associated symptoms include congestion, headaches, nausea, a plugged ear sensation, rhinorrhea, shortness of breath, sinus pain,a sore throat and vomiting. Pertinent negatives include no chest pain, coughing, diarrhea, ear painor rash. She has tried nothing for the symptoms. The treatment provided no relief. Patient Concerns: Trying to get : no INVENTORY ACCOUNTANT, patient is 6 days late for her cycle. Infertility referral has been sent. Advised patient to call her insurance and see what clinic she is allowed to go to. Weight Loss: Patient would like to try to lose weight. She would like to take an injectable to loseweight. Advised patient to call her insurance company to see what they cover and to let the office know. Rash to Face: Patient has tried lotion and hydrocortisone x1. CT of abdomen: 7mm mass and needs to have an MRI follow up. ALLERGIES: Allergies Allergen Reactions Acetazolamide Swollen tongue [...] comments) SEIZURE ACTIVITY Oxycodone-Acetaminophen Nausea And Vomiting MEDICATIONS: Current Outpatient Medications Medication olopatadine-mometasone (Ryaltris) 665-25 mcg/spray spray,non-aerosol onabotulinumtoxinA, cosmetic, (Botox Cosmetic) 50 unit recon soln sucralfate (CARAFATE) 1 gram tablet albuterol 2.5 mg /3 mL (0.083 %) nebulizer solution albuterol HFA (PROVENTIL HFA,VENTOLIN HFA,PROAIR HFA) 90 mcg/actuation inhaler amoxicillin-clavulanate (AUGMENTIN) 875-125 mg per tablet Nurtec ODT tablet,disintegrating ondansetron (ZOFRAN) 4 mg tablet zavegepant (Zavzpret) 10 mg/actuation spray,non-aerosol No current facility-administered medications for this visit. PAST MEDICAL HISTORY: Patient Active Problem List Diagnosis 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 or arthrodesis Painful orthopaedic hardware ([facility]) Moderate persistent asthma without complication Attention deficit disorder (ADD) in adult Rathke's cyst ([facility]) Pseudotumor cerebri Pain and swelling of lower extremity Arthralgia Elevated sedimentation rate Allergic rhinitis due to allergen Family history of seizure disorder Gastritis History of syncope Increased frequency of urination Migraine headache Paronychia Screening for condition Seborrhea Vitamin D deficiency Morbid obesity with BMI of 40.0-44.9, adult ([facility]) Simple obesity Exposure to COVID-19 virus Acute cough Chronic bilateral low back pain Left hip pain Chronic pain of both knees Lumbar degenerative disc disease Chronic pain of both hips Anxiety and depression Reactive airway disease without asthma Prepatellar bursitis of both knees Lumbar spondylosis Fluid retention Leg cramping Well adult exam Other chronic pain Bipolar 2 disorder ([facility]/HCC) ([facility]) Patellar maltracking, left Plantar fasciitis Localized swelling of left foot High serum c-peptide Chronic pain of multiple joints White matter abnormality on MRI of brain Endometriosis RLQ abdominal pain Gastroesophageal reflux disease without esophagitis Diarrhea Allergic reaction Allergic conjunctivitis of both eyes Bulging lumbar disc Acute bacterial sinusitis Persistent asthma without complication Panic attack Elevated blood pressure, situational Thrush, oral Bilateral lower extremity edema Acute bronchitis due to other specified organisms Diplopia Pituitary adenoma (HCC) Moderate persistent asthma with acute exacerbation Lumbar radiculopathy Liver mass Nasal congestion Infertility, female TMJ arthralgia Maxillary pain Constipation Allergic rhinitis due to animal hair and dander Chronic allergic conjunctivitis Chronic sinusitis Restlessness and agitation Upper respiratory tract infection Hemangioma of intra-abdominal structure Past Medical History: Diagnosis Date ADHD (attention deficit hyperactivity disorder) Allergic rhinitis Anxiety Arthritis Asthma Brain concussion 2010, 2009 Chronic bronchitis (HCC) Depression Ear problems Gastric reflux GERD (gastroesophageal reflux disease) PRN tums Hypertension, essential 05/27/2022 IIH (idiopathic intracranial hypertension) Pseudotumor cerebri. reports last spinal tap 2017. 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 Seasonal allergies Seizure ([facility]) 04/25/2017 Seizures ([facility]) off medication since 2018 with no further seizure activity, EEG negative Sinusitis Sleep difficulties SOB (shortness of breath) Tinnitus ROS: Review of Systems Constitutional: Negative for activity change, appetite change and fever. HENT: Positive for congestion, rhinorrhea, sinus pain and sore throat. Negative for ear pain. Eyes: Negative. Respiratory: Positive for shortness of breath. Negative for cough. Cardiovascular: Negative for chest pain and palpitations. Gastrointestinal: Positive for nausea and vomiting. Negative for constipation and diarrhea. Endocrine: Negative. Genitourinary: Negative. Musculoskeletal: Positive for myalgias. Negative for arthralgias. Skin: Negative for rash and wound. Neurological: Positive for headaches. Psychiatric/Behavioral: Negative for confusion. PHYSICAL EXAM: Vitals BP 112/60 (BP Location: Right arm, Patient Position: Sitting) Pulse 91 Temp 36.3 ??C (97.4 ??F) (Temporal) Ht 170.2 cm (5' 7.01 ) Wt 119.7 kg (263 lb 12.8 oz) SpO2 98% BMI 41.30 kg/m?? Physical Exam Vitals reviewed. Constitutional: General: She is not in acute distress. Appearance: Normal appearance. She is not ill-appearing, toxic-appearing or diaphoretic. HENT: Head: Normocephalic and atraumatic. Right Ear: Tympanic membrane, ear canal and external ear normal. Left Ear: Tympanic membrane, ear canal and external ear normal. Nose: Congestion and rhinorrhea present. Mouth/Throat: Mouth: Mucous membranes are moist. Pharynx: No oropharyngeal exudate or posterior oropharyngeal erythema. Eyes: Conjunctiva/sclera: Conjunctivae normal. Cardiovascular: Rate and Rhythm: Normal rate and regular rhythm. Heart sounds: Normal heart sounds. Pulmonary: Effort: Pulmonary effort is normal. No respiratory distress. Breath sounds: Normal breath sounds. No stridor. No wheezing, rhonchi or rales. Chest: Chest wall: No tenderness. Abdominal: General: Bowel sounds are normal. Musculoskeletal: Cervical back: Neck supple. Skin: General: Skin is warm. Capillary Refill: Capillary refill takes less than 2 seconds. Coloration: Skin is not pale. Findings: No rash. Neurological: Mental Status: She is alert and oriented to person, place, and time. Psychiatric: Behavior: Behavior normal. DIAGNOSTIC STUDIES: Recent Results (from the past 4 hour(s)) POC Influenza A/B, COVID-19 antigen Collection Time: 10/19/23 3:11 PM Result Value Ref Range Influenza A Ag, POC Negative Negative Influenza B Ag, POC Negative Negative COVID-19 Ag POC Presumptive Negative Presumptive Negative, Invalid ASSESSMENT/PLAN: Diagnoses and all orders for this visit: Upper respiratory tract infection, unspecified type (Primary) Assessment & Plan: Covid and Influenza negative in the clinic [...] confusion, chest pain, dizziness, or worsening symptoms. Orders: - POC Influenza A/B, COVID-19 antigen - amoxicillin-clavulanate (AUGMENTIN) 875-125 mg per tablet; Take 1 tablet by mouth 2 (two) times aday for 10 days Late menses Comments: HCG, blood work ordered per patient request. Orders: - hCG, blood, quantitative; Future Hemangioma of intra-abdominal structure Comments: CT scan from 01/2023 recommends MRI for follow up of 7mm mass to liver which appears to be a hemangioma. Orders: - MRI Abdomen W WO Contrast; Future Rash and nonspecific skin eruption Comments: Advised Zytec and benadryl May use hydrocortisone Ivory Pope NP documented in this encounter Miscellaneous Notes * Assessment & Plan Note - Ivory Pope NP - 10/19/2023 3:35 PM CDTAssociated Problem(s): Upper respiratory tract infection (Resolved 12/29/2023) Covid and Influenza negative in the clinic [...] confusion, chest pain, dizziness, or worsening symptoms. documented in this encounter Plan of Treatment Scheduled Orders Name Type Priority Associated Diagnoses Orde r Schedule MRI Abdomen W WO Contrast Imaging Schedule Routine, Read Routine (OP Routine) Hemangioma of intra-abdominal structure Expected: 10/19/2023, Expires: 10/18/2024 documented as of this encounter Goals Goal [...] Procedure Name Priority Date/Time Associated Diagnosis Comments POC INFLUENZA A/B, COVID-19 ANTIGEN Routine 10/19/2023 3:11 PM CDT Upper respiratory tract infection, unspecified type documented in this encounter Results * hCG, blood, quantitative (10/19/2023 3:44 PM CDT) hCG, quant <5.0 0.0 - 5.0 IUnits/L Comment: Interpretive Data Male: < 5 IU/L Non- premenopausal Female: <5 IU/L The Chriss hCG Beta Quant assay procedure was used. Results from different manufacturers or methods may not be comparable. ??Serial testing should be performed using the same method. Interpretive Data was last revised on 2023 Blood 10/19/2023 3:44 PM CDT 10/19/2023 4:06 PM CDT Ivory Pope NP LAB BLOOD ORDERABLES Final Resu lt Performing Organization Address City/[facility]/ZIP Co de Phone Number [facility] [address] [facility] Department [place] [address] * POC Influenza A/B, COVID-19 antigen (10/19/2023 3:11 PM CDT) Pathologist [facility] Influenza A Ag, POC Negative Negative [facility] [address] Influenza B Ag, POC Negative Negative [facility] [address] COVID-19 Ag POC Presumptive Negative Presumptive Negative, Invalid [facility] [address] [address] Nasal 10/19/2023 3:11 PM CDT Ivory Pope NP POINT OF CARE TEST ORDERABLES F inal Result Performing Organization Address City/[facility]/ZIP Co de Phone Number [facility] [address] [address] documented in this encounter Visit Diagnoses Diagnosis Upper respiratory tract infection, unspecified type- Primary Late menses Other disorder of menstruation and other abnormal bleeding from female genital tract 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 Rash and nonspecific skin eruption Rash and other nonspecific skin eruption Morbid obesity with BMI of 40.0-44.9, adult ([facility]) documented in this encounter Discontinued Medications Medication Sig Discontinue Reason Start Date End Da te amoxicillin-clavulanate (AUGMENTIN) 875-125 mg per tabletIndications:Upper respiratory tract infection, unspecified type Take 1 tablet by mouth 2 (two) times a day for 10 days Error 10/19/2023 10/19/2023 documented as of this encounter Historical Medications * This list may reflect changes made after this encounter. onabotulinumtoxi nA, cosmetic, (Botox Cosmetic) 50 unit recon soln as directed Intramuscular sucralfate (CARAFATE) 1 gram tablet Take 1 tablet (1 g total) by mouth 3 (three) times a day 10/01/2023 4 ondansetron (ZOFRAN) 4 mg tablet 09/01/2023 4 olopatadine-mome tasone (Ryaltris) 665-25 mcg/spray spray,non-aeroso l every 12 hours 4 added in this encounter Additional Health Concerns Infection Onset Date Last Indicated Resolved Time COVID: Suspected 10/19/2023 10/19/2023 10/19/2023 3:12 PM CDT documented as of this encounter Care Teams Shot Core Drill Operator Helper Relationship Specialty Start Date End Date Daily Cruz MD PCP - General Family Medicine 03/04/21 Savannah Holt PA [address] [facility] NEUROLOGY [address] [address] Physician Relocation Associate Neurology 06/07/23 Ange Chavez MD [address] [facility] NEUROLOGY [address] [address] Consulting Physician Endocrinology 06/07/23 documented as of this encounter
--- OUTSIDE RECORDS SUMMARY | 2024-02-21 19:33 | XMS_ITS | Encounter Summary ---
Author Organization [facility] Healthcare Address [address] [place] [address] Care Team Providers Care Document Image Technician Name Role Phone Daily Cruz MD Primary Care Provider [phone] Savannah Holt Unavailable [phone] Ange Chavez MD Unavailable [phone] Reason for Visit * Reason Onset Date Comments Med Refill 09/26/2023 Encounter Details Date Type Department Care Team (Late st Contact Info) Description 09/26/2023 Telephone [facility] Family Medicine [address] [place] [address] [place] [phone] Daily Cruz MD [address] [place] [address] [id number] Med Refill Social History Tobacco Use Types Packs/Day Years [...] on file Legal Sex Female 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 Medication Question/Clarification Medication Name(s): Wegovy What is the question or clarification needed? Pt is still waiting on reply regarding Wegovy. Pleasesee telephone encounter 08/10/23 If needed, Pharmacy(s) medication[facility] Additional Comments: Please follow up with pt via [employer] as she will be in meetings this afternoon & unable to answer phone. Does message need to be routed? Yes-Action [...] documented as of this encounter Care Teams Document Image Technician Relationship Specialty Start Date End Date Daily Cruz MD PCP - General Family Medicine 03/04/21 Savannah Holt PA [address] [facility] [address] [address] Physician Residential Mortgage Manager Neurology 06/07/23 Ange Chavez MD [address] [facility] [address] [address] Consulting Physician Endocrinology 06/07/23 documented as of this encounter
--- OUTSIDE RECORDS SUMMARY | 2024-02-21 19:33 | XMS_ITS | Encounter Summary ---
Author Organization [facility] Healthcare Address [address] [place] [address] Care Team Providers Care Community Service Coordinator Name Role Phone Daily Cruz MD Primary Care Provider [phone] Savannah Holt Unavailable Ange Chavez MD Unavailable [phone] Reason for Visit * Reason Comments Back Pain X 4 weeks, hard to b reath when she moves a certain way, lower back in the middle, radiates down to the back of her thighs Encounter Details Date Type Department Care Team (Late st Contact Info) Description 09/26/2023 7:45 PM CDT Office Visit [facility] at [address] [address] Ritika Hector NP [address] [place] [address] [address] [place] [address] Acute midline low back pain with bilateral sciatica (Primary Dx) Social History Tobacco Use Types Packs/Day Years Used Date Smoking Tobacco: Never Passive Smoke Exposure: Past Smokeless Tobacco: Never Tobacco Cessation:Counseling Given: Not Answered Alcohol Use Standard Drinks/Week Comments Not Currently 0 (1 standard drink = 0.6 oz pure alcohol) Maybe a drink every few months AUDIT-C Answer Date Recorded Q1: How often do you have a drink containing alc ohol? Monthly or less 06/07/2023 Q2: How many drinks containi ng alcohol do you have on a typical day when you are drinking? 1 or 2 06/07/2023 Q3: How often do you have si x or more drinks on one occasion? 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 Gender Identity Female 03/02/2020 4:27 PM FRUIT AND VEGETABLE FACTORY WORKER Sexual Orientation Straight 07/10/2019 11 :13 PM CDT documented as of this encounter Last Filed Vital Signs Vital Sign Reading Time Taken Comments Blood Pressure 128/83 09/26/2023 7:40 PM CDT Pulse 81 09/26/2023 7:40 PM CDT Temperature 36.6 ??C (97.8 ??F) 09/26/2023 7:40 PM CD T Respiratory Rate 20 09/26/2023 7:40 PM CDT Oxygen Saturation 97% 09/26/2023 7:40 PM CDT Inhaled Oxygen Concentration - - Weight 118 kg (260 lb 3.2 oz) 09/26/2023 7:40 PM CDT Height 170.2 cm (5' 7.01 ) 09/26/2023 7:40 PM CD T Body Mass Index 40.74 09/26/2023 7:40 PM CDT documented in this encounter Patient Instructions * Patient Instructions* Ritika Hector NP - 09/26/2023 7:45 PM CDT If you have no improvement or worsening of your symptoms, please follow up with your Primary Care Provider, Convenient Care and or Emergency Room. I strive to provide you with EXCELLENT service. You may receive a survey after your visit today. If you cannot rate your experience as EXCELLENT, please let us know how we can improve and better meet your needs. Thank you for choosing [facility]! It was my pleasure to see you today, I hope you feel better soon! Ritika Hector SENIOR JAVA DEVELOPER * Attachments The following attachments cannot be sent through Care Everywhere. * Back Pain (AfterCare(R) Instructions(ER/ED)) (Indonesian) documented in this encounter Ordered Prescriptions Prescription Sig Dispense Quantity Refills Last Filled Start Date End Date methocarbamoL (ROBAXIN) 750 mg tabletIndications: Acute midline low back pain with bilateral sciatica Take 1 tablet (750 mg total) by mouth 3 (three) times a day as needed for muscle spasms for up to 5 days 15 tablet 09/26/2023 4 predniSONE (DELTASONE) 20 mg tabletIndications: Acute midline low back pain with bilateral sciatica Take 2 tablets (40 mg) by mouth daily for 5 days Take with food 10 tablet 09/26/2023 4 documented in this encounter Progress Notes * Ritika Hector, OSCAR - 09/26/2023 7:45 PM CDT Images from the original note were not included. Subjective/Objective Patient ID: Jud Crocker is a 33 y.o. female. Chief Complaint Back Pain (X 4 weeks, hard to breath when she moves a certain way, lower back in the middle, radiates down to the back of her thighs ) Pt presents to [facility] Care Back Pain Chronicity: subacute. Episode onset: 4 weeks ago. The problem occurs daily. The problem has been gradually worsening (worsening over the past 2 days) since onset. The pain is present in the gluteal. The quality of the pain is described as aching. Radiates to: Bilateral gluteal. The pain is severe. The symptoms are aggravated by bending, twisting and position. Pertinent negatives include no abdominal pain, bladder incontinence, bowel incontinence, chest pain, dysuria, fever, headaches, leg pain,numbness, paresis, paresthesias, pelvic pain, perianal numbness, tingling, weakness or weight loss.Risk factors include obesity. She has tried ice, heat, muscle relaxant and NSAIDs (flexeril, herbal patch, icy hot, tylenol) for the symptoms. The treatment provided no relief. Foot surgery 1 month ago and believes this is what triggered the back pain as she was walking differently had an altered gait at that time. She also started exercising recently and doing squats not sure if that triggered the back pain. 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 Called PCP and they can't get her until next week Have seen chiropractor for the past several months Review of Systems Constitutional: Negative for fever and weight loss. Cardiovascular: Negative for chest pain. Gastrointestinal: Negative for abdominal pain and bowel incontinence. Genitourinary: Negative for bladder incontinence, dysuria and pelvic pain. Musculoskeletal: Positive for back pain. Neurological: Negative for tingling, weakness, numbness, headaches and paresthesias. All other systems reviewed and are negative. Physical Exam Vitals and nursing note reviewed. Constitutional: General: She is not in acute distress. Appearance: Normal appearance. Cardiovascular: Rate and Rhythm: Normal rate. Pulses: Normal pulses. Pulmonary: Effort: Pulmonary effort is normal. Musculoskeletal: Comments: Lumbar spine exam - decreased active range of motion throughout lumbar spine region secondary to pain; pain diffuse over the lumbar/sacral without step-off, deformity, ecchymosis, erythema,warmth, or swelling; negative straight leg raise and bragard bilateral; intact distal motor and sensory throughout. Skin: General: Skin is warm and dry. Capillary Refill: Capillary refill takes less than 2 seconds. Findings: No bruising, erythema or rash. Neurological: Mental Status: She is alert and oriented to person, place, and time. Vitals: 09/26/231939 BP: 128/83 Pulse: 81 Resp: 20 Temp: 36.6 ??C (97.8 ??F) TempSrc: Oral SpO2: 97% Weight: 118 kg (260 lb 3.2 oz) Height: 170.2 cm (5' 7.01 ) No results found. Past Medical History: Diagnosis Date ADHD (attention deficit hyperactivity disorder) Allergic rhinitis Anxiety Arthritis Asthma Brain concussion 2010, 2009 Chronic bronchitis (HCC) Depression Ear problems Gastric reflux GERD (gastroesophageal reflux disease) PRN tums Hypertension, essential 05/27/2022 IIH (idiopathic intracranial hypertension) Pseudotumor cerebri. reports last spinal tap 2017. 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 Seasonal allergies Seizure ([facility]) 04/25/2017 Seizures ([facility]) off medication since 2018 with no further seizure activity, EEG negative Sinusitis Sleep difficulties SOB (shortness of breath) Tinnitus Patient Active Problem List Diagnosis 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 or arthrodesis Painful orthopaedic hardware ([facility]) Moderate persistent asthma without complication Attention deficit disorder (ADD) in adult Rathke's cyst ([facility]) Pseudotumor cerebri Pain and swelling of lower extremity Arthralgia Elevated sedimentation rate Allergic rhinitis due to allergen Family history of seizure disorder Gastritis History of syncope Increased frequency of urination Migraine headache Paronychia Screening for condition Seborrhea Vitamin D deficiency Morbid obesity with BMI of 40.0-44.9, adult ([facility]) Simple obesity Exposure to COVID-19 virus Acute cough Chronic bilateral low back pain Left hip pain Chronic pain of both knees Lumbar degenerative disc disease Chronic pain of both hips Anxiety and depression Reactive airway disease without asthma Prepatellar bursitis of both knees Lumbar spondylosis Fluid retention Leg cramping Well adult exam Other chronic pain Bipolar 2 disorder (CMS/HCC) ([facility]) Patellar maltracking, left Plantar fasciitis Localized swelling [...] to other specified organisms Diplopia Pituitary adenoma ([facility]) Moderate persistent asthma with acute exacerbation Lumbar radiculopathy Liver mass Nasal congestion Infertility, female TMJ arthralgia Maxillary pain Constipation Current Outpatient Medications: albuterol 2.5 mg /3 mL (0.083 %) nebulizer solution, Take 3 mL (2.5 mg total) by nebulization every4 (four) hours as needed for wheezing (Patient not taking: Reported on 07/31/2023), Disp: 180 mL, Rfl: 0 albuterol HFA (PROVENTIL HFA,VENTOLIN HFA,PROAIR HFA) 90 mcg/actuation inhaler, Inhale 2 puffs every 4 (four) hours as needed for wheezing (Patient not taking: Reported on 07/31/2023), Disp: 6.7 g, Rfl: 0 methocarbamoL (ROBAXIN) 750 mg tablet, Take 1 tablet (750 mg total) by mouth 3 (three) times a day as needed for muscle spasms for up to 5 days, Disp: 15 tablet, Rfl: 0 Nurtec ODT tablet,disintegrating, Take 1 tablet (75 mg total) by mouth every other day (Patient nottaking: Reported on 07/06/2023), Disp: , Rfl: predniSONE (DELTASONE) 20 mg tablet, Take 2 tablets (40 mg) by mouth daily for 5 days Take with food, Disp: 10 tablet, Rfl: 0 silver sulfadiazine (SILVADENE, SSD) 1 % cream, Apply to affected area twice a day or with each dressing change. (Patient not taking: Reported on 08/10/2023), Disp: 50 g, Rfl: 1 zavegepant (Zavzpret) 10 mg/actuation spray,non-aerosol, Administer 1 spray into affected nostril(s) daily as needed (migraine) (Patient not taking: Reported on 07/31/2023), Disp: 6 each, Rfl: 2 Allergies Allergen Reactions Acetazolamide Swollen tongue Tongue [...] comments) SEIZURE ACTIVITY Oxycodone-Acetaminophen Nausea And Vomiting Social History Tobacco Use Smoking status: Never Passive exposure: Past Smokeless tobacco: Never Substance and Sexual Activity Drug use: Not Currently Types: Alcohol Comment: ~3 drinks/month Sexual activity: Yes Partners: Male control/protection: I.U.D. Alcohol Use: Not At Risk (06/07/2023) AUDIT-C Frequency of Alcohol Consumption: Monthly or less Average Number of Drinks: 1 or 2 Frequency of Binge Drinking: Never Past Surgical History: Procedure Laterality Date ABDOMINAL SURGERY Laparoscopic surgery to remove endometriosis FOOT SURGERY Bilateral 2019 2 left bunion, 1 right bunion- hardware in place left and right foot FOOT SURGERY 07/16/2019 revision left tarsometatarsal joint arthrodesis iliac crest bone graft - Left KNEE ARTHROSCOPY W/ LATERAL RELEASE 2021, 2020 KNEE SURGERY 01/2022 meniscus repair LAPAROSCOPIC ENDOMETRIOSIS FULGURATION 2017 NASAL ENDOSCOPY TONSILLECTOMY WISDOM TOOTH EXTRACTION Assessment/Plan Diagnoses and all orders for this visit: Acute midline low back pain with bilateral sciatica (Primary) - predniSONE (DELTASONE) 20 mg tablet; Take 2 tablets (40 mg) by mouth daily for 5 days Take with food - methocarbamoL (ROBAXIN) 750 mg tablet; Take 1 tablet (750 mg total) by mouth 3 (three) times a day as needed for muscle spasms for up to 5 days Patient Education: -discussed with patient to alternate heat and ice p.r.n. -[id number]-[id number] lidocaine patches per package directions -you may take Tylenol as needed for pain per package directions -advised not to take NSAIDs while on the prednisone. -recommend patient call and schedule follow-up with PCP -red flag symptoms to present to emergency room discussed with patient in detail, such as numbness or tingling in the legs or genital area, loss of bowel or bladder function, fever, bruising, redness, vomiting etc.. Prednisone Instructions Take this medication with food, preferably breakfast. If taken too late, this medication can cause sleeplessness. Common side effects include increased blood pressure, increased water and sodium retention, increased weight gain, mood changes, and increased blood sugar. Do not take NSAIDS while taking this medication. This includes aspirin, Aleve, Ibuprofen, Naproxen,Midol, Advil, or any medications containing Ibuprofen or aspirin. TAKE ANTACIDS 2 HOURS APART FROM PREDNISONE Go to the ER or call 911 if you experience new onset fevers, personality changes, chest pain, elevated blood pressure >160/90, uncontrollable blood sugars (in diabetics), stomach pain, severe generalized muscle pain, uncontrolled blood pressure, severe headaches, changes in vision, or seizures Risk and possible side effects of prednisone discussed with patient. Pt consents to treatment. Pt. Educated on how to take medication. Disposition Treatment plan including expectations, follow up, and return precautions discussed with patient/parent, verbalizes understanding. Medication dosage, use, and potential adverse reactions discussed with patient/parent. Advised to follow up with PCP if symptoms do not resolve as expected or sooner if condition worsens. Signs/symptoms warranting ER evaluation reviewed. Patient and/or guardian was given an opportunity to ask questions, questions answered. Ritika Hector NP This office note has been partially dictated using [employer] software, and as a result portions of the record may have been created with this software. Occasional wrong-word or '[id number]' substitutions may have occurred due to the inherent limitations of voice recognition software. Read the chartcarefully and recognize, using context, where substitutions have occurred. Cosigned by Janes Rodrigez MD at 09/26/2023 11:04 PM CDT documented in this encounter Plan of Treatment [...] as of this encounter Visit Diagnoses Diagnosis Acute midline low back pain with bilateral sciatica- Primary documented in this encounter Discontinued Medications Medication Sig Discontinue Reason Start Date End Da te cyclobenzaprine (FLEXERIL) 5 mg tabletIndications:Neck pain Take 1 tablet (5 mg total) by mouth 3 (three) times a day as needed for muscle spasms 06/08/2023 09/26/2023 documented as of this encounter Care Teams Community Service Coordinator Relationship Specialty Start Date End Date Daily Cruz MD PCP - General Family Medicine 03/04/21 Savannah Holt PA [address] [facility], [address] [place] [address] Physician American Studies Professor Neurology 06/07/23 Ange Chavez MD [address] [facility] [address] [place] [address] Consulting Physician Endocrinology 06/07/23 documented as of this encounter
--- OUTSIDE RECORDS SUMMARY | 2024-02-21 19:33 | XMS_ITS | Encounter Summary ---
Author Organization [facility] Healthcare Address [address] [place] [address] Care Team Providers Care Tire Builder Heavy Service Name Role Phone Daily Cruz MD Primary Care Provider [phone] Savannah Holt Unavailable [phone] Ange Chavez MD Unavailable [phone] Reason for Visit * Reason Onset Date Comments Symptom Based Call 09/26/2023 Encounter Details Date Type Department Care Team (Late st Contact Info) Description 09/26/2023 Telephone [facility] Medical Group Family Medicine [address] [place] [address] [place] [phone] Daily Cruz MD [address] [place] [address] [phone] Symptom Based Call Social History Tobacco Use Types Packs/Day Years [...] on file 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 Patient is going to visit the [facility] in [place] this evening. Does message need to be routed? Yes-FYI Only * Telephone Encounter - Estuardo Murray, LEE - 09/26/2023 1:05 PM CDT Left detailed message for patient that I was calling to schedule an appt in the office or recommendCC if she can't come in. * Telephone Encounter - Elza Guadalupe - 09/26/2023 12:25 PM CDT Symptom Based Call Chief Complaint(s): severe back pain, shocks of pain can barely breath, can barely walk Duration: few weeks, worse in 4 days What type of symptom(s) is the patient experiencing? Red Flag. Is the patient concerned they are experiencing a medical emergency requiring an ambulance? No Additional Comments: if pt does not answer please leave a message. 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 Asking for medical advice or medication. [id number] Does message need to be routed? Yes-Action [...] on filedocumented in this encounter Care Teams Tire Builder Heavy Service Relationship Specialty Start Date End Date Daily Cruz MD PCP - General Family Medicine 03/04/21 Savannah Holt PA [address] [facility] [address] [address] Physician Beauty Consultant Neurology 06/07/23 Ange Chavez MD [address] [facility] [address] [address] Consulting Physician Endocrinology 06/07/23 documented as of this encounter
--- OUTSIDE RECORDS SUMMARY | 2024-02-21 19:33 | XMS_ITS | Encounter Summary ---
Author Organization [facility] Healthcare Address [address] [place] [address] Care Team Providers Care Middle School Pe Teacher Name Role Phone Daily Cruz MD Primary Care Provider [phone] Savannah Holt Unavailable [phone] Ange Chavez MD Unavailable [phone] Encounter Details Date Type Department Care Team (Late st Contact Info) Description 11/09/2023 Orders Only [facility] Health Information Management [address] [place] [address] Daily Cruz MD [address] [facility] [address] [address] Social History Tobacco Use Types Packs/Day [...] on file 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 Gender Identity Female 03/02/2020 4:27 PM SAWSMITH Sexual Orientation Straight 07/10/2019 11 :13 PM CDT documented as of this encounter Plan of Treatment Not on [...] Procedure Name Priority Date/Time Associated Diagnosis Comments SCAN - PATHOLOGY 11/09/2023 documented in this encounter Results * SCAN - PATHOLOGY (11/09/2023) Daily Cruz MD Final Res ult documented in this encounter Visit Diagnoses Not on filedocumented in this encounter Care Teams Middle School Pe Teacher Relationship Specialty Start Date End Date Daily Cruz MD PCP - General Family Medicine 03/04/21 Savannah Holt PA [address] [facility] [address] [address] Physician Tile Power Shear Operator Neurology 06/07/23 Ange Chavez MD [address] [facility] [address] [address] Consulting Physician Endocrinology 06/07/23 documented as of this encounter
--- OUTSIDE RECORDS SUMMARY | 2024-02-21 19:33 | XMS_ITS | Encounter Summary ---
Author Organization [facility] Address [address] [place] [address] Phone Care Team Providers Care Tree Thinner Name Role Phone Daily Cruz MD Primary Care Provider [phone] Savannah Holt Unavailable Ange Chavez MD Unavailable [phone] Reason for Visit * Reason Onset Date Comments sooner appt 09/29/2023 Encounter Details Date Type Department Care Team (Late st Contact Info) Description 09/29/2023 Telephone [facility] Ophthalmology [address] [place] [address] Doe Ruano III, [place] [address] [address] sooner appt Social History Tobacco Use Types Packs/Day Years [...] on file 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 PT would prefer earliest appt of day possible Please call PT to advise # [phone] documented in this encounter Plan of Treatment [...] on filedocumented in this encounter Care Teams Tree Thinner Relationship Specialty Start Date End Date Daily Cruz MD PCP - General Family Medicine 03/04/21 Savannah Holt PA [address] [facility], [address] [address] Physician Director Cardiac Neurology 06/07/23 Ange Chavez MD [address] [facility], [address] [address] Consulting Physician Endocrinology 06/07/23 documented as of this encounter
--- OUTSIDE RECORDS SUMMARY | 2024-02-21 19:33 | XMS_ITS | Encounter Summary ---
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 Gender Identity Female 03/02/2020 4:27 PM PRODUCTION CONTROL SCHEDULER Sexual Orientation Straight 07/10/2019 11 :13 PM [...] Procedure Name Priority Date/Time Associated Diagnosis Comments HCG, BLOOD, QUANTITATIVE Routine 10/19/2023 3:44 PM CDT Late menses documented in this encounter Results * hCG, [...] 3:44 PM CDT 10/19/2023 4:06 PM CDT us Ivory Pope TECHNICAL SUPERVISOR LAB BLOOD ORDERABLES Final Resu lt ANGELICA [address] [facility] [place] [address] documented in this encounter Visit Diagnoses Diagnosis Late menses Other disorder of menstruation and other abnormal bleeding from female genital tract documented in this encounter Care Teams Salon Receptionist Relationship Specialty Start Date End Date Daily Cruz MD PCP - General Family Medicine 03/04/21 Savannah Holt PA [address] [facility] NEUROLOGY [address] [address] Physician Decal Applier Neurology 06/07/23 Ange Chavez MD [address] [facility] NEUROLOGY [address] [address] Consulting Physician Endocrinology 06/07/23 documented as of this encounter
--- OUTSIDE RECORDS SUMMARY | 2024-02-21 19:33 | XMS_ITS | Encounter Summary ---
Author Organization [facility] Address [address] [place] [address] Phone Care Team Providers Care Half Backer Name Role Phone Daily Cruz MD Primary Care Provider [phone] Savannah Holt Unavailable [phone] Ange Chavez MD Unavailable [phone] Reason for Visit * Reason Onset Date Comments Vials expiring in 08/10/2023 Encounter Details Date Type Department Care Team (Late st Contact Info) Description 08/10/2023 Telephone [facility] Allergy and Immunology [address] [facility] [address] [place] [address] Josseline Lincoln RN Vials expiring in September Social History Tobacco Use Types Packs/Day Years [...] on file 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 Pt said she stopped immunotherapyin January and is not interested in restarting. Let pt know that we would be throwing vials away. Pt verbalized understanding. documented in this encounter Plan of Treatment [...] on filedocumented in this encounter Care Teams Half Backer Relationship Specialty Start Date End Date Daily Cruz MD PCP - General Family Medicine 03/04/21 Savannah Holt PA [address] [facility] [address] [address] Physician Change Management Lead Neurology 06/07/23 Ange Chavez MD [address] [facility] NEUROLOGY [address] [address] Consulting Physician Endocrinology 06/07/23 documented as of this encounter
--- OUTSIDE RECORDS SUMMARY | 2024-02-21 19:33 | XMS_ITS | Encounter Summary ---
Author Organization [facility] Healthcare Address [address] [place] [address] Care Team Providers Care Manager Business Banking Name Role Phone Daily Cruz MD Primary Care Provider [phone] Savannah Holt Unavailable [phone] Ange Chavez MD Unavailable [phone] Encounter Details Date Type Department Care Team (Late st Contact Info) Description 10/04/2023 Telephone [facility] Family Medicine [address] [facility] [address] [facility] [address] [place] [address] Daily Cruz MD [address] [place] [address] Social History Tobacco Use Types Packs/Day [...] on file Legal Sex Female 3:37 PM RESEARCH AND EVALUATION ANALYST Gender Identity Female 03/02/2020 4:27 PM RESEARCH AND EVALUATION ANALYST Sexual Orientation Straight 07/10/2019 11 :13 PM CDT documented as of this encounter Miscellaneous Notes * Telephone Encounter - Alexander Hancock MA - 10/04/2023 3:48 PM CDT Left message for pt to call and schedule a follow up to go over ct result with Dr. Calero. Can be avideo or in person documented in this encounter Plan of Treatment [...] on filedocumented in this encounter Care Teams Manager Business Banking Relationship Specialty Start Date End Date Daily Cruz MD PCP - General Family Medicine 03/04/21 Savannah Holt PA [address] [facility] NEUROLOGY [address] [address] Physician Fire Hydrant Mechanic Neurology 06/07/23 Ange Chavez MD [address] [facility] NEUROLOGY [address] [address] Consulting Physician Endocrinology 06/07/23 documented as of this encounter
--- OUTSIDE RECORDS SUMMARY | 2024-02-21 19:33 | XMS_ITS | Encounter Summary ---
Author Organization [facility] Healthcare Address [address] [place] [address] Care Team Providers Care Anchorman Name Role Phone Daily Cruz MD Primary Care Provider [phone] Savannah Holt Unavailable [phone] Ange Chavez MD Unavailable [phone] Reason for Visit * Reason Onset Date Comments Chemical Exposure In The Eye 08/04/2023 Encounter Details Date Type Department Care Team (Late st Contact Info) Description 08/04/2023 Nurse Triage [facility] Medical Group Family Medicine at [facility] [address] [place] [address] Daily Cruz MD [address] [place] [address] Social History Tobacco Use Types Packs/Day [...] on file Legal Sex Female 3:37 PM PROGRAM INSTRUCTOR Gender Identity Female 03/02/2020 4:27 PM PROGRAM INSTRUCTOR Sexual Orientation Straight 07/10/2019 11 :13 PM CDT documented as of this encounter Miscellaneous Notes * Telephone Encounter - Kylah Tejada - 08/07/2023 12:54 PM CDT Mychart msg sent * Telephone Encounter - Daily Cruz MD - 08/04/2023 2:21 PM CDT Silvadene sent in * Telephone Encounter - Ally Benoit RN - 08/04/2023 8:22 AM CDT 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 Skin is red, painful and peeling. She is keeping area clean and dry. She did wash her skin well after exposure. They are using hydrated passamaquoddy type S . This is her father's farm and silvadene cream is what he has always used when she gets this chemical burn. Did have asthma flare but symptoms resolved with albuterol. Patient is not able to go to an ER and doesn't have an UC near. She will be home late tomorrow or Monday. 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 She is not going to ED or UC. She would like to seeif PCP would call in Silvadene cream to her local pharmacy here. Routing to office for determination. [employer] message to provide poison control phone number for other recommendations. Please seek treatment in [place] if symptoms worsen or new symptoms develop. Please call Poison Control at or you can reach out to them online at [email or web address] We do have convenient care and virtual care available when you return home this weekend if needed. Call back if you have additional questions or concerns. Call back if symptoms change, persist or worsen. Reason for Disposition Blisters present Protocols used: Esteves - [id number] * Telephone Encounter - Ally Benoit RN - 08/04/2023 8:17 AM CDT Regarding: Mild-severe pain, skin is raw, dried out, and peeling off in places ----- Message from Nikki Alex sent at 08/04/2023 7:57 AM CDT ----- Symptom Based Call Chief Complaint(s): Mild-severe pain, skin is raw, dried out, and peeling off in places Duration: since yesterday What type of symptom(s) is the patient experiencing? Red Flag. Is the patient concerned they are experiencing a medical emergency requiring an ambulance? No Additional Comments: Patient is currently in [place] helping her father out on his farm. She was working with a chemical called hydrated passamaquoddy type S which she believes to have gotten chemical esteves from. Parts of her skin under her arms, on her legs, and ankles are very dried out, raw, peeling off in places, and depending on what she is doing - can cause mild-severe pain. She has been trying to keep them clean and bandaged, but thinks she may need some sore of antibiotic cream. Patient is not in a position that she can go to an ER. She states it sounds worse than it is . She states she'd be happy to come in for an appointment once she gets back next week, but was hoping to have something pr escribed or medical advise given in the mean time. Does message need to be routed? Yes-Action [...] documented as of this encounter Care Teams Anchorman Relationship Specialty Start Date End Date Daily Cruz MD PCP - General Family Medicine 03/04/21 Savannah Holt PA [address] [facility] NEUROLOGY [address] [address] Physician Health Associate Neurology 06/07/23 Ange Chavez MD [address] [facility] NE[facility] [address] [id number] Consulting Physician Endocrinology 06/07/23 documented as of this encounter
--- OUTSIDE RECORDS SUMMARY | 2024-02-21 19:33 | XMS_ITS | Encounter Summary ---
Author Organization [facility] Healthcare Address [address] [place] [address] Care Team Providers Care Coordinator Skill Training Program Name Role Phone Daily Cruz MD Primary Care Provider [phone] Savannah Holt Unavailable Ange Chavez MD Unavailable [phone] Encounter Details Date Type Department Care Team (Latest Contact Info) Description 11/09/2023 5:37 PM CDT - 11/09/2023 11:59 PM CDT Hospital Encounter [facility] [address] [place] [address] Encounter for well woman exam with routine gynecological exam Discharge Disposition: Discharge to home or self [...] on file Legal Sex Female 3:37 PM ASSOCIATE PROGRAMMER ANALYST Gender Identity Female 03/02/2020 4:27 PM ASSOCIATE PROGRAMMER ANALYST Sexual Orientation Straight 07/10/2019 11 :13 [...] as needed for wheezing 6.7 g 02/17/2023 Nurtec ODT tablet,disintegr atingIndications :New daily persistent headache Take 1 tablet (75 mg total) by mouth every other day 06/08/2023 onabotulinumtoxi nA, cosmetic, (Botox Cosmetic) 50 unit recon soln as directed Intramuscular zavegepant (Zavzpret) 10 mg/actuation spray,non-aeroso lIndications:Gerhard ai Administer 1 spray into affected nostril(s) daily as needed (migraine) 6 each 2 07/14/2023 Estarylla 0.25-35 mg-mcg per tablet 11/01/2023 4 fluticasone propionate (FLOVENT HFA) 44 mcg/actuation inhaler PT WILL START SOON 10/31/2023 4 ondansetron (ZOFRAN) 4 mg tablet 09/01/2023 4 documented as of this encounter Discharge [...] Procedure Name Priority Date/Time Associated Diagnosis Comments HIGH RISK HPV DNA DETECTION WITH GENOTYPING Routine 11/09/2023 3:20 PM CDT PAP WITH REFLEX TO HIGH RISK HPV Routine 11/09/2023 3:20 PM CDT Encounter for well woman exam with routine gynecological exam N. GONORRHOEAE/C. TRACHOMATIS AMPLIFICATION Routine 11/09/2023 3:20 PM CDT Encounter for well woman exam with routine gynecological exam THINPREP PROCESSING (MOLECULAR COMPONENT) Routine 11/09/2023 3:19 PM CDT Encounter for well woman exam with routine gynecological exam HERPES SIMPLEX VIRUS (HSV) PCR Routine 11/09/2023 3:19 PM CDT Encounter for well woman exam with routine gynecological exam VAGINITIS PANEL Routine 11/09/2023 3:19 PM CDT Encounter for well woman exam with routine gynecological exam documented in this encounter Results * (ABNORMAL) High Risk HPV DNA Detection with Genotyping (Molecular component) (11/09/2023 3:20 PM CDT) HPV HR 16 Not Detected Not Detected [facility] Comment:Testing performed by : [facility], [address] [place] [address] HPV HR 18 Not Detected Not Detected ANGELICA VERDUGO Comment:Testing performed by : [facility], [address] [place]., [address] HPV HR Non 16/18 Detected(A) Not Detected ANGELICA VERDUGO Comment: Interpretive Data Nucleic acid amplification for detection of high-risk Human Papilloma virus (HPV) is performed by the Chriss Maria L 6800 HPV test. ??This assay specifically detects HPV-16 and HPV-18 genotypes. ??The following HPV genotypes are detected as high-risk HPV: ?? HPV-31, 33, 35, ,39, 45, 51, 52, 56, 58, 59, 66, and 68. ??This assay has been approved by the [place] Food and Drug Administration for detection of HPV in cervical specimens collected by a physician using an endocervical brush/spatula or cervical broom and placed in the ThinPrep Pap Test PreservCyt collection containers. ??The performance characteristics of this test have been verified by the [facility] Molecular Infectious Disease laboratory. Correlate with separately reported cytology results, as applicable. Interpretive data last revised 22 Testing performed by: [facility], [address] [place]., [address] Endocervical 11/09/2023 3:20 PM CDT 11/21/2023 12:21 PM CDT Daily Cruz MD LAB BODY FLUIDS AND STOOL S ORDERABLES Final Result ANGELICA [address] [facility] Department of Laboratories [place], [place] [id number] [facility] * N. gonorrhoeae/C. trachomatis Amplification Thin prep-Endocervical (11/09/2023 3:20 PM CDT) C. trachomatis Not Detected [facility] Comment:Testing performed by : [facility], [address] [place]., [address] N. gonorrhoeae Not Detected ANGELICA Comment: Interpretive Data This assay detects Chlamydia trachomatis and Neisseria gonorrhoeae by nucleic acid amplification testing (NAAT). This assay has been cleared by the [place] Food and Drug administration. The performance characteristics of this test have been verified by the [facility] Molecular Infectious Disease laboratory. The performance characteristics of this test have not been evaluated in individuals less than 14 years of age. Current Interpretive Data was last revised on 2022. Testing performed by: [facility], [address] [place]., [address] Thin prep-Endocervica l (None) 11/09/2023 3:20 PM CDT 11/10/2023 3:30 PM CDT Daily Cruz MD LAB MICROBIOLOGY - GENERA L ORDERABLES Final Result ANGELICA [address] [facility] Department [place] [address] [facility] * (ABNORMAL) Pap with reflex to High Risk HPV and Genotyping (Cytology Component) (11/09/2023 3:20 PMCDT) Thin prep (Pap test) 11/09/2023 3:20 PM CDT 11/10/2023 12:14 AM CDT Narrative PATHOLOGY [facility] - 11/20/2023 8:08 PM CDT EPIC results best viewed via link to PDF [facility] [place] [address] Note to Patients: This report may contain [...] Gender: ??F : ??1990 (Age: 33) Address: ??[facility] [address], [place], [place] ??[address] [facility] #: ??[id number] Service: ??UNKNOWN Location: ?? Patient Type: ??[facility] SPECIMEN Taken: ??11/09/2023 Received: ??11/10/2023 Accessioned: ??11/13/2023 [...] clinical information and biopsy results as indicated. [facility] Clinical Laboratory Improvement Amendments (CLIA) mandate that cytologic and histologic results be correlated for laboratory quality intern & improvement standards. ??FOR ALL HIGH-GRADE CASES [...] this test have been verified by the [facility] Molecular Infectious Disease laboratory. ??Correlate with reported [...] determined by the Surgical Pathology Department at [facility] as part of an ongoing chemistry quality control analyst program and in compliance with federally mandated [...] determined by the Surgical Pathology Department of [facility]. ??It has not been cleared or approved by the U. S. Food and Drug Administration. us Daily Cruz MD LAB CYTOLOGY ORDERABLES F inal Result PATHOLOGY [facility] * ThinPrep processing (Molecular component) (11/09/2023 3:19 PM CDT) Pathologist [facility] ThinPrep processing (Molecular component) Specimen received for processing. [facility] Comment:Testing performed by : [facility], [address] [place]., [address] Endocervical 11/09/2023 3:19 PM CDT 11/10/2023 3:30 PM CDT us Daily Cruz MD LAB BODY FLUIDS AND STOOL S ORDERABLES Final Result Performing Organization Address [facility] Co de Phone Number [facility] [address] [facility] Department [place] [address] [facility] * Vaginitis panel Vaginal (11/09/2023 3:19 PM CDT) [facility] Ame DNA probe Not Detected Not Detected Gardnerella DNA probe Not Detected Not Detected ANGELICA Trichomonas DNA probe Not Detected Not Detected ANGELICA Comment: Interpretive Data Testing performed by [facility] via Affirm VPIII Microbial Identification Test, a DNA probe test for use in the detection and identification of Ame species, Gardnerella vaginalis and Trichomonas vaginalis nucleic acid in vaginal fluid specimens from patients with symptoms of vaginitis/vaginosis. Negative results for these tests suggest the patient does not have candidiasis, bacterial vaginosis and/or trichomoniasis when consistent with clinical signs and symptoms. Current interpretive data was last revised on 2020. Vaginal 11/09/2023 3:19 PM CDT 11/09/2023 5:54 PM CDT Daily Cruz MD LAB MICROBIOLOGY - GENERA L ORDERABLES Final Result ANGELICA [address] [facility] Department [place] [address] * Herpes Simplex Virus (HSV) PCR Vaginal (11/09/2023 3:19 PM CDT) HSV DNA Not Detected Not Detected [facility] Comment: Interpretive Data This assay is performed using primers specific for the DNA polymerase gene of both HSV-1 and HSV-2. ??The assay contains unique primer/probe sets capable of distinguishing between HSV-1 and HSV-2. ??This assay has been cleared by the U.S. Food and Drug Administration for performance on cerebrospinal fluid and genital swabs. ??The assay has been evaluated for use on alternative sample types, though it is not FDA cleared for these applications. ??The performance of all sample types has been validated by the performing laboratory and deemed acceptable for patient testing. Current Interpretive Data was last reviewed on 06/12/2018 Testing performed by: [facility], [address] [place]., [address] Vaginal 11/09/2023 3:19 PM CDT 11/09/2023 7:54 PM CDT Daily Cruz MD LAB MICROBIOLOGY - GENERA L ORDERABLES Final Result Performing Organization Address [facility]/ZIP Co de Phone Number ANGELICA [facility] Department [place] [address] [facility] documented in this encounter Visit Diagnoses Diagnosis Encounter for well woman exam with routine gynecological exam documented in this encounter Care Teams Coordinator Skill Training Program Relationship Specialty Start Date End Date Daily Cruz MD PCP - General Family Medicine 03/04/21 Savannah Holt PA [address] [facility] NEUROLOGY GENERAL, [address] [address] Physician Endodontist Neurology 06/07/23 Ange Chavez MD [address] [facility] NEUROLOGY [facility], [address] [address] Consulting Physician Endocrinology 06/07/23 documented as of this encounter
--- OUTSIDE RECORDS SUMMARY | 2024-02-21 19:33 | XMS_ITS | Encounter Summary ---
Author Organization [facility] Address [address] [place] [address] Phone Care Team Providers Care Tobacco Baler Name Role Phone Daily Cruz MD Primary Care Provider [phone] Savannah Holt Unavailable [phone] Ange Chavez MD Unavailable [phone] Reason for Visit * Reason Onset Date Comments same day appt 10/27/2023 Encounter Details Date Type Department Care Team (Late st Contact Info) Description 10/27/2023 Telephone [facility] Ophthalmology [address] [place] [address] Stefanie Pederson, OD [address] [address] same day appt Social History Tobacco Use Types Packs/Day [...] on file Legal Sex Female 3:37 PM VP STRATEGIC PLANNING Gender Identity Female 03/02/2020 4:27 PM VP STRATEGIC PLANNING Sexual Orientation Straight 07/10/2019 11 :13 PM CDT documented as of this encounter Miscellaneous Notes * Telephone Encounter - Rosalee Carrion - 10/27/2023 8:26 AM CDT Did Patient Refuse Same Day: No Patient Scheduled: 10/26 Provider Scheduled with: Dr. Pederson Frequency: Never happened before Onset: 10/24 Location: [place] Duration: Consistent Associated Problems: Red, painful, swollen, and busied Relief: warm compresses not helping Quality of Symptoms: Red, painful, swollen, and busied Additional Comments: documented in this encounter Plan of Treatment [...] on filedocumented in this encounter Care Teams Tobacco Baler Relationship Specialty Start Date End Date Daily Cruz MD PCP - General Family Medicine 03/04/21 Savannah Holt PA [address] [place] [address] Physician Food Service Specialist Neurology 06/07/23 Ange Chavez MD [facility] [place] [address] Consulting Physician Endocrinology 06/07/23 documented as of this encounter
--- OUTSIDE RECORDS SUMMARY | 2024-02-21 19:33 | XMS_ITS | Encounter Summary ---
Author Organization [facility] Address [address] [place] [address] Phone Care Team Providers Care Bookmobile Librarian Name Role Phone Daily Cruz MD Primary Care Provider [phone] Savannah Holt Unavailable [phone] Ange Chavez MD Unavailable [phone] Reason for Visit * Reason Comments Eyelid Pain Encounter Details Date Type Department Care Team (Late st Contact Info) Description 10/27/2023 9:00 AM CDT Office Visit [facility] [address] [address] Stefanie Pederson, OD [address] [facility] [address] [place] [address] Hordeolum internum of left lower eyelid (Primary Dx); Exotropia Social History Tobacco Use Types Packs/Day Years [...] on file Legal Sex Female 3:37 PM SKEIN YARN DYER Gender Identity Female 03/02/2020 4:27 PM SKEIN YARN DYER Sexual Orientation Straight 07/10/2019 11 :13 PM CDT documented as of this encounter Ordered Prescriptions Prescription Sig Dispense Quantity Refills Last Filled Start Date End Date cephalexin (KEFLEX) 500 mg capsule Take 1 capsule (500 mg total) by mouth 2 (two) times a day for 10 days 20 capsule 10/27/2023 4 tobramycin-dexAMET Hasone (TOBRADEX) ophthalmic solution Administer 1 drop into the left eye 3 (three) times a day for 10 days 5 mL 10/27/2023 4 documented in this encounter Progress Notes * Stefanie Pederson, OD - 10/27/2023 9:00 AM CDT ASSESSMENT/ORDERS/PROCEDURES PERFORMED TODAY Assessment/Plan Diagnoses and all orders for this visit: Hordeolum internum of left lower eyelid (Primary) Assessment & Plan: -urgent visit for LLL edema, tenderness, redness x 2 days +internal hordeolum on nasal LL with tenderness to palpation -rx keflex 500mg po bid x 10 days; avoid doxy d/t possible h/o IIH -rx tobradex gtts tid OS x 7-10 days; discussed alf side effect of topical steroid use -RTC prn or if symptoms worsen or persist Exotropia Assessment & Plan: -followed by Dr. Ruano -continue pencil push-ups; pt wanting to avoid surgical intervention if possible -RTC as scheduled with Dr. Ruano; sooner with issues Other orders - tobramycin-dexAMETHasone (TOBRADEX) ophthalmic solution; Administer 1 drop into the left eye 3 (three) times a day for 10 days - cephalexin (KEFLEX) 500 mg capsule; Take 1 capsule (500 mg total) by mouth 2 (two) times a day for 10 days PLAN FOR NEXT VISIT Stefanie Pederson OD, FAAO documented in this encounter Miscellaneous Notes * Assessment & Plan Note - Stefanie Pederson, OD - 10/27/2023 9:42 AM CDT Associated Problem(s): Exotropia -followed by Dr. Ruano -continue pencil push-ups; pt wanting to avoid surgical intervention if possible -RTC as scheduled with Dr. Ruano; sooner with issues * Assessment & Plan Note - Stefanie Pederson, OD - 10/27/2023 9:41 AM CDT Associated Problem(s): Hordeolum internum of left lower eyelid -urgent visit for LLL edema, tenderness, redness x 2 days +internal hordeolum on nasal LL with tenderness to palpation -rx keflex 500mg po bid x 10 days; avoid doxy d/t possible h/o IIH -rx tobradex gtts tid OS x 7-10 days; discussed termite treater side effect of topical steroid use -RTC prn or if symptoms worsen or persist documented in this encounter Plan of Treatment [...] as of this encounter Visit Diagnoses Diagnosis Hordeolum internum of left lower eyelid- Primary Exotropia Unspecified exotropia documented in this encounter Discontinued Medications Medication Sig Discontinue Reason Start Date End Da te amoxicillin-clavulanate (AUGMENTIN) 875-125 mg per tabletIndications:Upper respiratory tract infection, unspecified type Take 1 tablet by mouth 2 (two) times a day for 10 days Therapy completed 10/19/2023 10/27/2023 documented as of this encounter Historical Medications * This list may reflect changes made after this encounter. sodium chloride-sodium bicarbonate (Nasal Wash) packet with rinse device as directed Nasally 09/11/2023 added in this encounter Eye Exam Visual Acuity (Snellen - Linear) Right eye Left eye Dist sc 20/30 -1 20/40 -2 Dist ph sc NI NI Tonometry (Tonopen, 9:21 AM) Right eye Left eye Pressure 18 18 Pupils Dark Light Shape React APD Right eye 5 4 Round Brisk None Left eye 5 4 Round Brisk None Visual Vivas (Counting fingers) Right eye Left eye Full Full Extraocular Movement Right eye Left eye Full Full Neuro/Psych Oriented x3: Yes Mood/Affect: Normal Dilation defer External Exam Right eye Left eye External Normal Normal Slit Lamp Exam Right eye Left eye Lids/Lashes Normal mild LL edema, i nternal hordeolum on nasal LL with surrounding papillary rxn, 1+ papillae LL Conjunctiva/Sclera White and quiet White and anjel et Cornea Clear Clear Anterior Chamber Deep and quiet Deep and quiet Iris Round and reactive Round and richa ctive Lens Clear Clear Fundus Exam Right eye Left eye Disc Normal Normal C/D Ratio 0.65 0.65 Macula Normal Normal Care Teams Bookmobile Librarian Relationship Specialty Start Date End Date Daily Cruz MD PCP - General Family Medicine 03/04/21 Savannah Holt PA [address] [facility] NEUROLOGY GENERAL, [address] [address] Physician Meteorological Technician Neurology 06/07/23 Ange Chavez MD [address] [facility] NEUROLOGY GENERAL, [facility] [address] [place] [address] Consulting Physician Endocrinology 06/07/23 documented as of this encounter
--- OUTSIDE RECORDS SUMMARY | 2024-02-21 19:33 | XMS_ITS | Encounter Summary ---
Author Organization [facility] Healthcare Address [address] [place] [address] Care Team Providers Care Goring Cutter Name Role Phone Daily Cruz MD Primary Care Provider [phone] Savannah Holt Unavailable [phone] Ange Chavez MD Unavailable [phone] Encounter Details Date Type Department Care Team (Late st Contact Info) Description 10/01/2023 Orders Only [facility] Information Management [address] [place] [address] Daily Cruz MD [address] [facility] [address] [address] Social History Tobacco Use Types [...] on file Legal Sex Female 3:37 PM AGGREGATE CONVEYOR OPERATOR Gender Identity Female 03/02/2020 4:27 PM AGGREGATE CONVEYOR OPERATOR Sexual Orientation Straight 07/10/2019 11 :13 PM [...] Priority Date/Time Associated Diagnosis Comments SCAN - RADIOLOGY/IMAGING 10/01/2023 documented in this encounter Results * SCAN - RADIOLOGY/IMAGING (10/01/2023) Anatomical Region Laterality Modality Other Daily Cruz MD Final Res ult documented in this encounter Visit Diagnoses Not on filedocumented in this encounter Additional Health Concerns Infection Onset Date Last Indicated Resolved Time COVID: Suspected 10/19/2023 10/19/2023 10/19/2023 3:12 PM CDT documented as of this encounter Care Teams Goring Cutter Relationship Specialty Start Date End Date Daily Cruz MD PCP - General Family Medicine 03/04/21 Savannah Holt PA [address] [facility] NEUROLOGY [address] [address] Physician Senior Finance Manager Neurology 06/07/23 Ange Chavez MD [address] [facility] NEUROLOG[facility] [address] [address] Consulting Physician Endocrinology 06/07/23 documented as of this encounter
--- OUTSIDE RECORDS SUMMARY | 2024-02-21 19:33 | XMS_ITS | Encounter Summary ---
Author Organization [facility] Healthcare Address [address] [place] [address] Care Team Providers Care City Constable Name Role Phone Daily Cruz MD Primary Care Provider [phone] Savannah Holt Unavailable [phone] Ange Chavez MD Unavailable [phone] Reason for Visit * Reason Comments Well Women Visit Encounter Details Date Type Department Care Team (Late st Contact Info) Description 11/09/2023 2:30 PM CDT Office Visit [facility] Medical Group Family Medicine [address] [place] [address] [place] [phone] Daily Cruz MD [address] [place] [address] Encounter for well woman exam with routine gynecological exam (Primary Dx) Social History Tobacco Use Types [...] on file Legal Sex Female 3:37 PM FITTING 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 Gender Identity Female 03/02/2020 4:27 PM FITTING ROOM INSPECTOR Sexual Orientation Straight 07/10/2019 11 :13 PM CDT documented as of this encounter Last Filed Vital Signs Vital Sign Reading Time Taken Comments Blood Pressure 124/74 11/09/2023 3:09 PM CDT Pulse 78 11/09/2023 3:09 PM CDT Temperature 36.5 ??C (97.7 ??F) 11/09/2023 3:09 PM CD T Respiratory Rate - - Oxygen Saturation 100% 11/09/2023 3:09 PM CDT Inhaled Oxygen Concentration - - Weight 117.6 kg (259 lb 3.2 oz) 11/09/2023 3:09 PM CDT Height 170.2 cm (5' 7.01 ) 11/09/2023 3:09 PM CD T Body Mass Index 40.59 11/09/2023 3:09 PM CDT documented in this encounter Patient Instructions * Attachments The following attachments cannot be sent through Care Everywhere. * Pap Smear (AfterCare(R) Instructions(ER/ED)) ([facility]) documented in this encounter Progress Notes * Daily Cruz MD - 11/09/2023 2:30 PM CDT Subjective/Objective Patient ID: Jud Crocker is a 33 y.o. female. Chief Complaint Well Women Visit HPI Jud Crocker is a 33 y.o. year old female who presents for a well woman exam. Past Medical History: Diagnosis Date ADHD (attention deficit hyperactivity disorder) Allergic rhinitis Anxiety Arthritis Asthma Brain concussion 2010, 2009 Chronic bronchitis (HCC) Depression Ear problems Gastric reflux GERD (gastroesophageal reflux disease) PRN tums Hypertension, essential 05/27/2022 IIH (idiopathic intracranial hypertension) Pseudotumor cerebri. reports last spinal tap 2017. 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 Seasonal allergies Seizure (HCC) 04/25/2017 Seizures (HCC) off medication since 2018 with no further seizure activity, EEG negative Sinusitis Sleep difficulties SOB (shortness of breath) Tinnitus Past Surgical History: Procedure Laterality Date ABDOMINAL SURGERY Laparoscopic surgery to remove endometriosis FOOT SURGERY Bilateral 2018 2 left bunion, 1 right bunion- hardware in place left and right foot FOOT SURGERY 07/16/2019 revision left tarsometatarsal joint arthrodesis iliac crest bone graft - Left KNEE ARTHROSCOPY W/ LATERAL RELEASE 2021, 2020 KNEE SURGERY 01/2022 meniscus repair LAPAROSCOPIC ENDOMETRIOSIS FULGURATION 2017 NASAL ENDOSCOPY TONSILLECTOMY WISDOM TOOTH EXTRACTION Menstrual History: No LMP recorded. (Menstrual status: IUD). Sexual History: OB History No obstetric history on file. Allergies Allergen Reactions Acetazolamide Swollen tongue Tongue [...] comments) SEIZURE ACTIVITY Oxycodone-Acetaminophen Nausea And Vomiting Family History Problem Relation Age of Onset [...] Grandmother Depression Sister Anesthesia problems Neg Hx Social History Tobacco Use Smoking status: Never Passive exposure: Past Smokeless tobacco: Never Substance and Sexual Activity Drug use: Not Currently Types: Alcohol Comment: ~3 drinks/month Sexual activity: Yes Partners: Male control/protection: I.U.D. Alcohol Use: Not At Risk (10/19/2023) AUDIT-C Frequency of Alcohol Consumption: Monthly or less Average Number of Drinks: 1 or 2 Frequency of Binge Drinking: Never Current Outpatient Medications: albuterol 2.5 mg /3 [...] for wheezing, Disp: 6.7 g, Rfl: 0 Estarylla 0.25-35 mg-mcg per tablet, , Disp: , Rfl: fluticasone propionate (FLOVENT HFA) 44 mcg/actuation inhaler, PT WILL START SOON, Disp: , Rfl: Nurtec ODT tablet,disintegrating, Take 1 tablet (75 mg total) by mouth every other day, Disp: , Rfl: onabotulinumtoxinA, cosmetic, (Botox Cosmetic) 50 unit recon soln, as directed Intramuscular, Disp:, Rfl: ondansetron (ZOFRAN) 4 mg tablet, , Disp: , Rfl: zavegepant (Zavzpret) 10 mg/actuation spray,non-aerosol, Administer 1 spray into affected nostril(s) daily as needed (migraine), Disp: 6 each, Rfl: 2 Review of Systems Constitutional: Negative for fatigue and fever. HENT: Negative for congestion, ear pain, nosebleeds and rhinorrhea. Eyes: Negative for pain and redness. Respiratory: Negative for cough and shortness of breath. Cardiovascular: Negative for chest pain and palpitations. Gastrointestinal: Negative for abdominal pain and diarrhea. Endocrine: Negative for cold intolerance. Genitourinary: Negative for dysuria and frequency. Musculoskeletal: Negative for arthralgias and back pain. Neurological: Negative for dizziness and headaches. Hematological: Does not bruise/bleed easily. Psychiatric/Behavioral: Negative for behavioral problems and confusion. BP 124/74 Pulse 78 Temp 36.5 ??C (97.7 ??F) (Temporal) Ht 170.2 cm (5' 7.01 ) Wt 117.6 kg (259 lb 3.2 oz) SpO2 100% BMI 40.59 kg/m?? Physical Exam Exam conducted with a lead carpenter present. Constitutional: Appearance: She is well-developed. HENT: Head: Normocephalic and atraumatic. Cardiovascular: Rate and Rhythm: Normal rate and regular rhythm. Heart sounds: Normal heart sounds. Pulmonary: Effort: Pulmonary effort is normal. Breath sounds: Normal breath sounds. Abdominal: General: Bowel sounds are normal. Palpations: Abdomen is soft. Tenderness: There is no abdominal tenderness. Genitourinary: General: Normal vulva. Vagina: Normal. Cervix: Normal. Uterus: Normal. Adnexa: Right adnexa normal and left adnexa normal. Musculoskeletal: General: Normal range of motion. Cervical back: Normal range of motion and neck supple. Skin: General: Skin is warm and dry. Neurological: Mental Status: She is alert and oriented to person, place, and time. Cranial Nerves: No cranial nerve deficit. Psychiatric: Behavior: Behavior normal. Assessment/Plan Diagnoses and all orders for this visit: Encounter for well woman exam with routine gynecological exam (Primary) Assessment & Plan: Pap done Await report Orders: - Pap with reflex to High Risk HPV and Genotyping (Cytology Component); Future - ThinPrep processing (Molecular component); Future - Vaginitis panel Vaginal; Future - Herpes Simplex Virus (HSV) PCR Vaginal; Future - N. gonorrhoeae/C. trachomatis Amplification Thin prep-Endocervical; Future Discussed with patient current recommendations for annual screening including pap smear every 3 years starting at age 21 until age 30, then every 5 years after that. Patients no longer need paps after age 65. Recommend mammograms every 1-2 years starting at age 40-50 depending on risk factors. Recommend colon cancer screening starting at age 45. Discussed diet, exercise, and importance of maintaining a healthy weight. RTC in 1 year or prn Orders Placed This Encounter Vaginitis panel Vaginal Standing Status: Future Number of Occurrences: 1 Standing Expiration Date: 11/08/2024 Herpes Simplex Virus (HSV) PCR Vaginal Standing Status: Future Number of Occurrences: 1 Standing Expiration Date: 11/08/2024 N. gonorrhoeae/C. trachomatis Amplification Thin prep-Endocervical Standing Status: Future Number of Occurrences: 1 Standing Expiration Date: 11/09/2024 ThinPrep processing (Molecular component) Standing Status: Future Number of Occurrences: 1 Standing Expiration Date: 11/08/2024 Pap with reflex to High Risk HPV and Genotyping (Cytology Component) Standing Status: Future Number of Occurrences: 1 Standing Expiration Date: 11/08/2024 Order Specific Question: Specimen type Answer: Cervical/endocervical Order Specific Question: Specimen Receiving location Answer: [facility] Order Specific Question: Clinical history and diagnosis Answer: none Order Specific Question: Testing type Answer: Screening Order Specific Question: Last menstrual period (date if known) Answer: unknown documented in this encounter Miscellaneous Notes * Assessment & Plan Note - Daily Cruz MD - 11/17/2023 9:55 AM CDT Associated Problem(s): Encounter for well woman exam with routine gynecological exam Pap done Await report documented in this encounter Plan of Treatment [...] documented as of this encounter Results * N. gonorrhoeae/C. trachomatis Amplification Thin prep-Endocervical (11/09/2023 3:20 PM CDT) C. trachomatis Not Detected [facility] Comment:Testing performed by : [facility], [address] [place]., [address] N. gonorrhoeae Not Detected ANGELICA VERDUGO Comment: Interpretive Data This assay detects Chlamydia trachomatis and Neisseria gonorrhoeae by nucleic acid amplification testing (NAAT). This assay has been cleared by the [place] Food and Drug administration. The performance characteristics of this test have been verified by the [facility] Molecular Infectious Disease laboratory. The performance characteristics of this test have not been evaluated in individuals less than 14 years of age. Current Interpretive Data was last revised on 2022. Testing performed by: [facility], [address] [place]., [address] Thin prep-Endocervica l (None) 11/09/2023 3:20 PM CDT 11/10/2023 3:30 PM CDT Daily Cruz MD LAB MICROBIOLOGY - GENERA L ORDERABLES Final Result ANGELICA VERDUGO [address] [facility] Department [place] [address] [facility] * (ABNORMAL) Pap with reflex to High Risk HPV and Genotyping (Cytology Component) (11/09/2023 3:20 PMCDT) Thin prep (Pap test) 11/09/2023 3:20 PM CDT 11/10/2023 12:14 AM CDT Narrative PATHOLOGY [facility] - 11/20/2023 8:08 PM CDT EPIC results best viewed via link to PDF [facility] Surgical Pathology [address] [place] [address] Note to Patients: This report may contain [...] (Age: 33) Address: ??[address], [place], [place] ??[address] Hospital #: ??[id number] Service: ??UNKNOWN Location: ?? Patient Type: ??[facility] SPECIMEN Taken: ??11/09/2023 Received: ??11/10/2023 Accessioned: ??11/13/2023 Reported: ??11/20/2023 Physician(s): ??Dr. Daily Cruz M.D. ?? FINAL INTERPRETATION SOURCE OF SPECIMEN ? Liquid based Thin Prep pap with Reflex HPV: STATEMENT OF ADEQUACY ?- Satisfactory for evaluation ?- Endocervical cells/transformation zone sample present ? GENERAL CATEGORIZATION: ?- EPITHELIAL CELL ABNORMALITY ? INTERPRETATION: ?- Atypical squamous cells of undetermined significance ? [facility] 20[facility]08 By this signature, I attest that [...] clinical information and biopsy results as indicated. [facility] Clinical Laboratory Improvement Amendments (CLIA) mandate that cytologic and histologic results be correlated for laboratory construction quality control manager & improvement standards. ??FOR ALL HIGH-GRADE CASES [...] this test have been verified by the [facility] Molecular Infectious Disease laboratory. ??Correlate with reported [...] determined by the Surgical Pathology Department at [facility] as part of an ongoing quality improvement coordinator (rn) program and in compliance with federally mandated [...] determined by the Surgical Pathology Department of [facility]. ??It has not been cleared or approved by the U. S. Food and Drug Administration. us Daily Cruz MD LAB CYTOLOGY ORDERABLES F inal Result PATHOLOGY [facility] * Herpes Simplex Virus (HSV) PCR Vaginal (11/09/2023 3:19 PM CDT) HSV DNA Not Detected Not Detected [facility] Comment: Interpretive Data This assay is performed [...] last reviewed on 06/12/2018 Testing performed by: [facility], [address] [place]., [address] Vaginal 11/09/2023 3:19 PM CDT 11/09/2023 7:54 PM CDT us Daily Cruz MD LAB MICROBIOLOGY - GENERA L ORDERABLES Final Result Performing Organization Address City/[facility]/ZIP Co de Phone Number ANGELICA [address] [address] [facility] * Vaginitis panel Vaginal (11/09/2023 3:19 PM CDT) Pathologist [facility] Ame DNA probe Not Detected Not Detected Gardnerella DNA probe Not Detected Not Detected ANGELICA Trichomonas DNA probe Not Detected Not Detected ANGELICA Comment: Interpretive Data Testing performed by [facility] via Affirm VPIII Microbial Identification Test, a [...] ORDERABLES Final Result Performing Organization Address [facility] Co de Phone Number [address] [address] * ThinPrep processing (Molecular component) (11/09/2023 3:19 PM CDT) [facility] ThinPrep processing (Molecular component) Specimen received for processing. [facility] Comment:Testing performed by : [facility], [address] [facility], [place]., [address] Endocervical 11/09/2023 3:19 PM CDT 11/10/2023 3:30 PM CDT Daily Cruz MD LAB BODY FLUIDS AND STOOL S ORDERABLES Final Result Performing Organization Address City/[facility]/ZIP Co de Phone Number CERNER MH [address] [place] [address] [facility] documented in this encounter Visit Diagnoses Diagnosis Encounter for well woman exam with routine gynecological exam- Primary Encounter for well woman exam with routine gynecological exam documented in this encounter Care Teams City Constable Relationship Specialty Start Date End Date Daily Cruz MD PCP - General Family Medicine 03/04/21 Savannah Holt PA [address] [facility] NEUROLOGY [address] [address] Physician Hardware Assembler Neurology 06/07/23 Ange Chavez MD [address] [facility] NEUROLOGY [address] [address] Consulting Physician Endocrinology 06/07/23 documented as of this encounter
--- OUTSIDE RECORDS SUMMARY | 2024-02-21 19:33 | XMS_ITS | Encounter Summary ---
Author Organization [facility] Healthcare Address [address] [place] [address] Care Team Providers Care Computer Help Desk Representative Name Role Phone Daily Cruz MD Primary Care Provider [phone] Savannah Holt Unavailable [phone] Ange Chavez MD Unavailable [phone] Reason for Visit * Reason Onset Date Comments Medication Request 11/23/2023 Encounter Details Date Type Department Care Team (Late st Contact Info) Description 11/23/2023 Telephone [facility] Medical Group Family Medicine at [place] [address] [place] [phone] Lauren Carrion MA Medication Request Social History Tobacco Use Types [...] on file Legal Sex Female 3:37 PM 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 * Telephone Encounter - Jayjay May - 11/23/2023 1:52 PM CDT Images from the original note were not included. Call Back Caller???s Concern: pt called back. Re ran the insurance , E-Verified Patient: Jud Crocker As of: November 23, 2023 Payer: [facility] Please call she stated that she do not take nurec Does message need to be routed? Yes-Action Needed * Telephone Encounter - Lauren Carrion MA - 11/23/2023 1:26 PM CDT [facility] PA Bhakta: [id number] Started PA for patient unable to submit due to a hard stop saying patient is inactive. I tried calling the patient to verify her insurance but no answer so I left a message for a call back. documented in this encounter Plan of Treatment [...] on filedocumented in this encounter Care Teams Computer Help Desk Representative Relationship Specialty Start Date End Date Daily Cruz MD PCP - General Family Medicine 03/04/21 Savannah Holt PA [address] [facility] NEUROLOGY [address] [address] Physician Cutter Hand Neurology 06/07/23 Ange Chavez MD [address] [facility] NEUROLOGY [address] [address] Consulting Physician Endocrinology 06/07/23 documented as of this encounter
--- OUTSIDE RECORDS SUMMARY | 2024-02-21 19:33 | XMS_ITS | Encounter Summary ---
Author Organization [facility] Address [address] [place] [address] Care Team Providers Care Field Horticultural Specialty Grower Name Role Phone Daily Cruz MD Primary Care Provider [phone] Savannah Holt Unavailable [phone] Ange Chavez MD Unavailable [phone] Encounter Details Date Type Department Care Team (Late st Contact Info) Description 08/04/2023 Orders Only [facility] Family Medicine at [facility] [address] [place] [phone] Daily Cruz MD [address] [place] [address] [address] [place] [address] Social History Tobacco Use Types [...] on file Legal Sex Female 3:37 PM DOCTOR OF OPTOMETRY Gender Identity Female 03/02/2020 4:27 PM DOCTOR OF OPTOMETRY Sexual Orientation Straight 07/10/2019 11 :13 PM CDT documented as of this encounter Ordered Prescriptions Prescription Sig Dispense Quantity Refills Last Filled Start Date End Date silver sulfadiazine (SILVADENE, SSD) 1 % cream Apply to affected area twice a day or with each dressing change. 50 g 1 08/04/2023 4 documented in this encounter Plan of Treatment [...] on filedocumented in this encounter Care Teams Field Horticultural Specialty Grower Relationship Specialty Start Date End Date Daily Cruz MD PCP - General Family Medicine 03/04/21 Savannah Holt PA [address] [facility] NEUROLOGY [address] [address] Physician Laboratory Technician Neurology 06/07/23 Ange Chavez MD [address] [facility] NEUROLOGY [address] [address] Consulting Physician Endocrinology 06/07/23 documented as of this encounter
--- OUTSIDE RECORDS SUMMARY | 2024-02-21 19:33 | XMS_ITS | Encounter Summary ---
Author Organization [facility] Address [address] [place] [address] Phone Care Team Providers Care Director Shopper Marketing Name Role Phone Daily Cruz MD Primary Care Provider [phone] Savannah Holt Unavailable [phone] Ange Chavez MD Unavailable [phone] Encounter Details Date Type Department Care Team (Late st Contact Info) Description 08/09/2023 11:00 AM CDT Office Visit [facility] Ophthalmology [address] 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 She is symptomatically bothered with reading and has closed one eye to read. MRI brain w/wo contrast was obtained in Nov 2022. Reports known history of childhood strabismus. Also has history of multiple concussions. Referral to Adult Strabismus. Interval History: Last seen in the neuro-ophthalmology clinic on 06/07/2023. She feels her eyes are about the same. She states that when she does the pencil push ups it hurts. Her eyes feel very fatigued after the exercise. Examination: In [facility], use Encounters tab to view detailed neuro-ophthalmic examination. In my encounter letter, detailed neuro-ophthalmic examination findings are copied below. 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 Diplopia documented in this encounter Eye Exam Visual Acuity (Snellen - Linear) Right eye Left eye Dist sc 20/50 -2+1 20/30 +2 Dist ph sc 20/25 20/20 -1 Pupils Dark Light Shape React APD Right eye 5.5 3 Round Brisk None Left eye 5.5 3 Round Brisk None Visual Vivas (Counting fingers) Right eye Left eye Full Full Extraocular Movement Right eye Left eye Up gaze 0 0 0 0 0 0 Right/left gaze 0 -- 0 0 -- 0 Down gaze 0 0 0 0 0 0 Normal saccades bilaterally without overshoot/ undershoot and without adduction lag Neuro/Psych Oriented x3: Yes Mood/Affect: Normal External Exam Right eye Left eye External Normal Normal Slit Lamp Exam Right eye Left eye Lids/Lashes Normal Normal Conjunctiva/Sclera White and quiet White and anjel et Cornea Clear Clear Anterior Chamber Deep and quiet Deep and quiet Iris Round and reactive Round and richa ctive Lens Clear Clear Strabismus Exam Method: Alternate cover Near: X 16-20 Up gaze: X 2-4 Right gaze: X 6 Primary gaze: X 4-6 Left gaze: X 6 Down gaze: X 10 Right eye Left eye Up gaze 0 0 0 0 0 0 Right/left gaze 0 -- 0 0 -- 0 Down gaze 0 0 0 0 0 0 Care Teams Director Shopper Marketing Relationship Specialty Start Date End Date Daily Cruz MD PCP - General Family Medicine 03/04/21 Savannah Holt PA [address] [facility] NEUROLOGY [address] [address] Physician Beauty Operator Apprentice Neurology 06/07/23 Ange Chavez MD [address] [facility] NEUROLOGY [address] [address] Consulting Physician Endocrinology 06/07/23 documented as of this encounter
--- OUTSIDE RECORDS SUMMARY | 2024-02-21 19:33 | XMS_ITS | Encounter Summary ---
Author Organization [facility] Healthcare Address [address] [place] [address] Care Team Providers Care Director Account Management Name Role Phone Daily Cruz MD Primary Care Provider [phone] Savannah Holt Unavailable Ange Chavez MD Unavailable [phone] Reason for Visit * Reason Comments Follow-up Pt follow up after h er CSC/EGD procedure. 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 Gender Identity Female 03/02/2020 4:27 PM MINING SUPPORT WORKER Sexual Orientation Straight 07/10/2019 11 :13 PM CDT documented as of this encounter Last Filed Vital Signs Vital Sign Reading Time Taken Comments Blood Pressure 116/80 08/10/2023 11:39 AM CDT Pulse 58 08/10/2023 11:39 AM CDT Temperature - - Respiratory Rate - - Oxygen Saturation - - Inhaled Oxygen Concentration - - Weight 116.6 kg (257 lb) 08/10/2023 11:39 AM CDT Height 170.2 cm (5' 7.01 ) 08/10/2023 11:39 AM C DT Body Mass Index 40.24 08/10/2023 11:39 AM CDT documented in this encounter Progress Notes * Jeffrey Fleming MD - 08/10/2023 11:15 AM CDT Images from the original note were not included. [facility] Gastro[place]ology at [place] Subjective/Objective Patient ID: Jud Crocker is a 32 y.o. White female. Chief Complaint Follow-up (Pt follow up after her CSC/EGD procedure.) HPI Patient presents to GI clinic for follow up. EGD and colonoscopy December 2022 with irregular Z-line, gastritis, internal hemorrhoids, otherwise normal colonoscopy to terminal ileum, pathology negative for microscopic colitis and H pylori. States went gluten free and states abdominal pain has resolved. Denies any rectal bleeding or diarrhea. Patient Active Problem List Diagnosis 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 or arthrodesis Painful orthopaedic hardware (HCC) Moderate persistent asthma without complication Attention deficit disorder (ADD) in adult Rathke's cyst (HCC) Pseudotumor cerebri Pain and swelling of lower extremity Arthralgia Elevated sedimentation rate Allergic rhinitis due to allergen Family history of seizure disorder Gastritis History of syncope Increased frequency of urination Migraine headache Paronychia Screening for condition Seborrhea Vitamin D deficiency Morbid obesity with BMI of 40.0-44.9, adult ([facility]) Simple obesity Exposure to COVID-19 virus Acute cough Chronic bilateral low back pain Left hip pain Chronic pain of both knees Lumbar degenerative disc disease Chronic pain of both hips Anxiety and depression Reactive airway disease without asthma Prepatellar bursitis of both knees Lumbar spondylosis Fluid retention Leg cramping Well adult exam Other chronic pain Bipolar 2 disorder (CMS/HCC) ([facility]) Patellar maltracking, left Plantar fasciitis Localized swelling [...] to other specified organisms Diplopia Pituitary adenoma ([facility]) Moderate persistent asthma with acute exacerbation Lumbar radiculopathy Liver mass Nasal congestion Infertility, female TMJ arthralgia Maxillary pain Constipation Allergies Allergen Reactions Acetazolamide Swollen tongue Tongue [...] comments) SEIZURE ACTIVITY Oxycodone-Acetaminophen Nausea And Vomiting Past Surgical History: Procedure Laterality Date ABDOMINAL [...] 2018 NASAL ENDOSCOPY TONSILLECTOMY WISDOM TOOTH EXTRACTION Family History Problem Relation Age of Onset [...] Grandmother Depression Sister Anesthesia problems Neg Hx HOME MEDICATIONS : albuterol 2.5 mg /3 mL (0.083 %) nebulizer solution albuterol HFA (PROVENTIL HFA,VENTOLIN HFA,PROAIR HFA) 90 mcg/actuation inhaler cyclobenzaprine (FLEXERIL) 5 mg tablet Nurtec ODT tablet,disintegrating silver sulfadiazine (SILVADENE, SSD) 1 % cream zavegepant (Zavzpret) 10 mg/actuation spray,non-aerosol Review of Systems Constitutional: Negative for chills and fever. Respiratory: Negative for shortness of breath and wheezing. Cardiovascular: Negative for chest pain and palpitations. Gastrointestinal: See HPI Vitals BP 116/80 (BP Location: Right arm, Patient Position: Sitting) Pulse 58 Ht 170.2 cm (5' 7.01 ) Wt 116.6 kg (257 lb) BMI 40.24 kg/m?? Body mass index is 40.24 kg/m??. Physical Exam Vitals reviewed. Constitutional: Appearance: Normal appearance. Cardiovascular: Rate and Rhythm: Normal rate and regular rhythm. Pulmonary: Effort: Pulmonary effort is normal. Breath sounds: Normal breath sounds. Abdominal: General: Bowel sounds are normal. There is no distension. Palpations: Abdomen is soft. There is no mass. Tenderness: There is no abdominal tenderness. Neurological: Mental Status: She is alert. Assessment/Plan Diagnoses and all orders for this visit: Abdominal pain (Primary) Assessment & Plan: Went to the ER for right lower quadrant abdominal pain that is sharp and stabbing, intermittent, once every few weeks. No aggravating or relieving factors. Labs and CT scan were unremarkable. Patientdoes have a history of endometriosis, and has follow up with OBGYN. Colonoscopy 12/2022 with internal hemorrhoids, biopsies negative for microscopic colitis. Abdominal pain has resolved with startinggluten free diet. -patient may have a gluten intolerance, biopsies from EGD were negative for celiac disease; continue gluten free diet -discussed testing for HLA DQ 2 and DQ 8 given patient's sister has lupus, however patient deferredat this time; she will call us back if she would like to have this testing done Gastroesophageal reflux disease without esophagitis Assessment & Plan: Chronic, has tried Zantac, Prilosec, and famotidine in the past. Currently controlled with diet. EGD December 2022 with irregular Z-line and gastritis, pathology unremarkable. -Pepcid OTC p.r.n. -RECOMMENDATIONS given include: anti-reflux maneuvers, Avoid acidic foods like oranges and tomatoes., avoidance of spicy foods, avoid eating 3-4 hours before bed, elevation of the head of the bed, and weight loss Constipation, unspecified constipation type Assessment & Plan: Chronic, mild, intermittent. -high-fiber diet -MiraLax OTC p.r.n. Return if symptoms worsen or fail to improve. Jeffrey Fleming MD Voice recognition software ([employer]) was used to complete this document. Despite proofreading, rn integrated variances and typographical errors may occur. documented in this encounter Miscellaneous Notes * Assessment & Plan Note - Jeffrey Fleming MD - 08/10/2023 12:22 PM CDTAssociated Problem(s): Constipation Chronic, mild, intermittent. -high-fiber diet -MiraLax OTC p.r.n. * Assessment & Plan Note - Jeffrey Fleming MD - 08/10/2023 12:12 PM CDTAssociated Problem(s): Diarrhea Diarrhea intermittently alternating with constipation. -we will order stool studies rule out infectious etiologies -colonoscopy as above * Assessment & Plan Note - Jeffrey Fleming MD - 08/10/2023 12:12 PM CDTAssociated Problem(s): Gastroesophageal reflux disease without esophagitis Chronic, has tried Zantac, Prilosec, and famotidine in the past. Currently controlled with diet. EGD December 2022 with irregular Z-line and gastritis, pathology unremarkable. -Pepcid OTC p.r.n. -RECOMMENDATIONS given include: anti-reflux maneuvers, Avoid acidic foods like oranges and tomatoes., avoidance of spicy foods, avoid eating 3-4 hours before bed, elevation of the head of the bed, and weight loss * Assessment & Plan Note - Jeffrey Fleming MD - 08/10/2023 12:12 PM CDTAssociated Problem(s): RLQ abdominal pain Went to the ER for right lower quadrant abdominal pain that is sharp and stabbing, intermittent, once every few weeks. No aggravating or relieving factors. Labs and CT scan were unremarkable. Patientdoes have a history of endometriosis, and has follow up with OBGYN. Colonoscopy 12/2022 with internal hemorrhoids, biopsies negative for microscopic colitis. Abdominal pain has resolved with startinggluten free diet. -patient may have a gluten intolerance, biopsies from EGD were negative for celiac disease; continue gluten free diet -discussed testing for HLA DQ 2 and DQ 8 given patient's sister has lupus, however patient deferredat this time; she will call us back if she would like to have this testing done documented in this encounter Plan of Treatment [...] as of this encounter Visit Diagnoses Diagnosis Abdominal pain- Primary Abdominal pain, right lower quadrant Gastroesophageal reflux disease without esophagitis Esophageal reflux Constipation, unspecified constipation type documented in this encounter Care Teams Director Account Management Relationship Specialty Start Date End Date Daily Cruz MD PCP - General Family Medicine 03/04/21 Savannah Holt PA [address] [address] Physician Chief Engineer Waterworks Neurology 06/07/23 Ange Chavez MD [address] [id number] Consulting Physician Endocrinology 06/07/23 documented as of this encounter
--- OUTSIDE RECORDS SUMMARY | 2024-02-21 19:33 | XMS_ITS | Encounter Summary ---
Author Organization [facility] Healthcare Address [address] [place] [address] Care Team Providers Care Animation Director Name Role Phone Daily Cruz MD Primary Care Provider [phone] Savannah Holt Unavailable [phone] Ange Chavez MD Unavailable [phone] Reason for Visit * Reason Onset Date Comments Appointment Request 11/03/2023 Encounter Details Date Type Department Care Team (Late st Contact Info) Description 11/03/[address] 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 Visit Type: Other physical exam and breast exam but not a pelvic and pap smear What is the reason for the visit? For ivf- needs physical exam and breast exam What is the reason we were unable to schedule the appointment? If applicable, were all members of the patient's PCP care team offered (e.g., nurse practioner(s), physician nutrition services assistant(s)) ? Yes Additional Comments: was not sure exactly how to schedule this Please advise . Is looking to have this rufus Does message need to be routed? Yes-Action [...] on filedocumented in this encounter Care Teams Animation Director Relationship Specialty Start Date End Date Daily Cruz MD PCP - General Family Medicine 03/04/21 Savannah Holt PA [address] [facility] NEUROLOGY [address] [address] Physician Quality Control Projectionist Neurology 06/07/23 Ange Chavez MD [address] [address] Consulting Physician Endocrinology 06/07/23 documented as of this encounter
--- OUTSIDE RECORDS SUMMARY | 2024-02-21 19:33 | XMS_ITS | Encounter Summary ---
Author Organization [facility] Address [address] [place] [address] Phone Care Team Providers Care Closing Supervisor Name Role Phone Daily Cruz MD Primary Care Provider [phone] Savannah Holt Unavailable Ange Chavez MD Unavailable [phone] Encounter Details Date Type Department Care Team (Late st Contact Info) Description 09/29/2023 Telephone [facility] Ophthalmology [address] [facility] 6th [place] [address] Doe Ruano III, MD [address] [facility] [address] [place] [address] Social History Tobacco Use Types Packs/Day Years [...] on file 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 documented in this encounter Plan of Treatment [...] on filedocumented in this encounter Care Teams Closing Supervisor Relationship Specialty Start Date End Date Daily Cruz MD PCP - General Family Medicine 03/04/21 Savannah Holt PA [address] [facility] NEUROLOGY [address] [address] Physician Aerial Survey Technician Neurology 06/07/23 Ange Chavez MD [address] [facility] NEUROLOGY [address] [address] Consulting Physician Endocrinology 06/07/23 documented as of this encounter
--- OUTSIDE RECORDS SUMMARY | 2024-02-21 19:33 | XMS_ITS | Encounter Summary ---
Author Organization [facility] Healthcare Address [address] [place] [address] Care Team Providers Care Ball Racker Name Role Phone Daily Cruz MD Primary Care Provider [phone] Savannah Holt Unavailable [phone] Ange Chavez MD Unavailable [phone] Reason for Visit * Reason Onset Date Comments Abdominal Pain 10/02/2023 Encounter Details Date Type Department Care Team (Late st Contact Info) Description 10/02/2023 Nurse Triage [facility] Medical Group Family Medicine [address] [place] [address] [address] [place] [address] Daily Cruz MD [address] [place] [address] [id number] Social History Tobacco Use Types Packs/Day Years [...] on file 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 Pt with hx gastritis, GERD reporting severe upper abd pain. Seen in ED Sat night for symptoms. Dx with stomach inflammation, ulcer. Given rx for Sucralfate to take QID, which she says is not working.Has also tried taking Omeprazole, Zantac. Pt asking about oral Lidocaine rx. Advised pt to call herGI office AH service. Pt requesting further advice from workers compensation paralegal provider. Disp: go to ED now. Will [place] workers compensation paralegal provider for recommendations. Call placed to pt; given recommendations. She did f/u with GI office. Advised ED if pain is severe and she is unable to tolerate. Care advice given. Patient agrees to call back with any worsening symptoms or further questions/concerns. Reason for Disposition [1] SEVERE pain (e.g., excruciating) AND [2] present > 1 hour Protocols used: Abdominal Pain - [id number] * Telephone Encounter - Alexandra Garcia RN - 10/02/2023 7:58 PM CDT Regarding: pt was diagnosed with stomach ulcer, having a lot of severe pain ----- Message from Soila Tee sent at 10/02/2023 7:57 PM CDT ----- Chief concern:pt was diagnosed with stomach ulcer, having a lot of severe pain Duration: of last week, went into ER Monday Additional Information: patient went into ER, she was given a pain med that is not helping. She went to the pharmacy and requested Lidocane, or something similar to help numb the pain (that's what was given at the ER, and patient said that helped more than her prescribed pain rx) documented in this encounter Plan of Treatment [...] on filedocumented in this encounter Care Teams Ball Racker Relationship Specialty Start Date End Date Daily Cruz MD PCP - General Family Medicine 03/04/21 Savannah Holt PA [address] [facility] NEUROLOGY [address] [address] Physician [place] Laboratory Assistant Neurology 06/07/23 Ange Chavez MD [address] [facility] NEUROLOGY [address] [address] Consulting Physician Endocrinology 06/07/23 documented as of this encounter
--- OUTSIDE RECORDS SUMMARY | 2024-02-21 19:33 | XMS_ITS | Encounter Summary ---
Author Organization [facility] Address [address] [place] [address] Phone Care Team Providers Care Farmworker Animal Name Role Phone Daily Cruz MD Primary Care Provider [phone] Savannah Holt Unavailable [phone] Ange Chavez MD Unavailable [phone] Reason for Visit * Reason Comments Strabismus Diplopia Encounter Details Date Type Department Care Team (Latest Contact Info) Description 10/05/2023 8:15 AM CDT Office Visit [facility] Ophthalmology [address] [facility] [address] [place] [address] Doe Ruano III, MD [address] [facility] [address] [place] [address] Exotropia, alternating, intermittent [H50.34] (Primary Dx); 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 Discussed surgical options, but cautioned that surgery would result in prolonged diplopia in distance and that redoubled effort with convergence exercises is still the best option and these were discussed at length. She will redouble her efforts with convergence exercises and touch base with me in 3-4 months. 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 Strabismus Exam #1 Method: Alternate cover Correction: sc Observations: A pattern Near: X(T) 18, reading Up gaze: X(T) 4 Right gaze: X(T) 5 Primary gaze: X(T) 6 Left gaze: X(T ) 5, Rhypo(T) 1 Down gaze: X(T) 9, Rhypo(T) 1 Right eye Left eye Up gaze 0 0 0 0 0 0 Right/left gaze 0 -- 0 0 -- 0 Down gaze 0 0 + 0 0 0 Nystagmus: None Abnormal head position: None Strabismus Exam #2 Method: Alternate cover Post Patch test Correction: sc Near: X(T) 20-25, reading Near +3DS: X(T) 20 Up gaze: X(T) 8 Right gaze: X(T) 8 Primary gaze: X(T) 12 Left gaze: X(T ) 10 Down gaze: X(T) 14 Right eye Left eye Up gaze 0 0 0 0 0 0 Right/left gaze 0 -- 0 0 -- 0 Down gaze 0 0 0 0 0 0 Strabismus Exam Comments NPC: 12 cm Exam 2 after prolonged patch test. PST: At near post patch test: 0/ BI OD Care Teams Farmworker Animal Relationship Specialty Start Date End Date Daily Cruz MD PCP - General Family Medicine 03/04/21 Savannah Holt PA [address] [facility] NEUROLOGY [facility], [address] [address] Physician Director Of Corporate Responsibility Neurology 06/07/23 Ange Chavez MD [address] [facility] NEUROLOGY [facility], [address] [address] Consulting Physician Endocrinology 06/07/23 documented as of this encounter
--- OUTSIDE RECORDS SUMMARY | 2024-02-21 19:33 | XMS_ITS | Encounter Summary ---
Author Organization [facility] Address [address] [place] [address] Care Team Providers Care Math And Physics Instructor Name Role Phone Daily Cruz MD Primary Care Provider [phone] Savannah Holt Unavailable Ange Chavez MD Unavailable [phone] Reason for Visit * Reason Onset Date Comments Test Results 11/23/2023 Encounter Details Date Type Department Care Team (Late st Contact Info) Description 11/23/2023 Telephone [facility] Family Medicine [address] [place] [address] [address] [place] [address] Daily Cruz MD [address] [place] [id number] Test Results Social History Tobacco Use Types Packs/Day Years [...] on file 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 No Additional Questions/Comments: Patient is requesting communication about results via [employer] as shewill be unable to answer call Does message need to be routed? Yes-Action [...] on filedocumented in this encounter Care Teams Math And Physics Instructor Relationship Specialty Start Date End Date Daily Cruz MD PCP - General Family Medicine 03/04/21 Savannah Holt PA [address] [facility] NEUROLOGY [address] [address] Physician Hosiery Mater Neurology 06/07/23 Ange Chavez MD [address] [facility] NEUROLOGY [address] [address] Consulting Physician Endocrinology 06/07/23 documented as of this encounter
--- OUTSIDE RECORDS SUMMARY | 2024-02-21 19:33 | XMS_ITS | Encounter Summary ---
Author Organization [facility] Address [address] [place] [address] Phone Care Team Providers Care Mail Service Coordinator Name Role Phone Daily Cruz MD Primary Care Provider [phone] Savannah Holt Unavailable [phone] Ange Chavez MD Unavailable [phone] Reason for Referral * Consultation (Routine) - Pending Review Specialty Diagnoses / Procedures Referred By Contfabian t Referred To Contact Sleep Medicine Diagnoses Other insomnia Anxiety disorder, unspecified type Savannah Holt PA [address] [place] [address] Phone: tel: fax: Jud James, PhD 1 [facility] [address] [place] [address] Phone: tel: fax: Referral ID Status Reason Start Date Expiration Date Visits Requested Visits Authorized [id number] Pending Review Specialty Services Required 11/02/2023 12/01/2024 1 1 Question Answer Please select the performing region: [facility] (All Locations) [[id number]] To provider: JUD JAMES [[id number]] # of visits: 1 Comments CBT-I Reason for Visit * Reason Comments Headache * Consultation (Routine) - Closed Specialty Diagnoses / Procedures Referred By Matt burk Referred To Contact Neurology Diagnoses Pseudotumor cerebri Intractable chronic migraine without aura and with status migrainosus Ange Chavez MD Phone: tel: fax: Savannah Holt PA [address] [place] [address] Phone: tel: fax: Referral ID Status Reason Start Date Expiration Date V isits Requested Visits Authorized [id number] Closed Specialty Services Required 02/22/2023 03/23/2024 1 1 Encounter Details Date Type Department Care Team (Late st Contact Info) Description 11/02/2023 11:00 AM CDT Office Visit [facility] General Neurology [address] [facility] 6th [address] [place] [address] Savannah Holt PA [address] [place] [address] Chronic migraine without aura without status migrainosus, not intractable (Primary Dx); Other insomnia; Anxiety disorder, unspecified type Social History Tobacco Use Types Packs/Day [...] on file Legal Sex 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 Gender Identity Female 03/02/2020 4:27 PM ETHICAL HACKER Sexual Orientation Straight 07/10/2019 11 :13 PM CDT documented as of this encounter Last Filed Vital Signs Vital Sign Reading Time Taken Comments Blood Pressure 129/87 11/02/2023 11:02 AM CDT Pulse 72 11/02/2023 11:02 AM CDT Temperature 37.1 ??C (98.8 ??F) 11/02/2023 11:02 AM C DT Respiratory Rate - - Oxygen Saturation 100% 11/02/2023 11:02 AM CDT Inhaled Oxygen Concentration - - Weight 118.2 kg (260 lb 8 oz) 11/02/2023 11:02 A M CDT Height 170.2 cm (5' 7.01 ) 11/02/2023 11:02 AM C DT Body Mass Index 40.79 11/02/2023 11:02 AM CDT documented in this encounter Patient Instructions * Patient Instructions* Savannah Holt PA - 11/02/2023 11:00 AM CDT You may start Riboflavin (Vitamin B2) 400mg and Magnesium oxide 500mg nightly for migraine prevention. These are safe to take during . Below is a list of local psychiatry/psychology providers. We also recommend you contact your insurance company for additional providers. [facility] @ [phone] (psychiatry and therapy) [facility] @ [phone] [facility] @ [phone] (psychiatry and therapy) [facility] @ [phone] (psychiatry and therapy) [email or web address] (the website has the option of searching online or schedulingby phone) Cy Madrigal DO @ [phone] (psychiatrist) [facility] @ [phone] (therapy) [facility] @ [phone] (therapy) documented in this encounter Progress Notes * Savannah Holt PA - 11/02/2023 11:00 AM CDT Patient Name: JUD CROCKER Medical Record Number (MRN): [id number] Date of (): 1990 Encounter Date: 11/02/2023 Chief Complaint Jud Crocker is a 33 y.o. female with PMH significant for strabismus, multiple concussions, pituitary adenoma, obesity, bipolar disorder, ADHD, chronic pain, seen today for new evaluation and treatment of Headache She was referred by Dr Ange Chavez for neurology consult. HPI She presents today for 2nd opinion on chronic headaches. She reports a longstanding history of migraine dating back to childhood. They progressively increased in frequency and severity. They became notably more frequent and severe with menarche. She had daily migraines for years. She eliminated gluten from her diet earlier this year and this has had a significant impact on her headaches. She now has <10 total headaches days/mo, approx half are migraines. She typically experiences 2 days of migraine with menses. The other headaches are with stress, weather change, or due to dental pain. Shegot braces a few months ago and this has caused some headaches. Her headaches are unilateral, most often left temporal, less often right sided. She also experienceretro-orbital pressure with migraines. Migraines are severe throbbing or piercing pain. Her migraines now last 1-2 days. Migraines are associated with photo/phonophobia and n/v. She denies aura, but does experience difficulty focusing visit and eyelid twitching before migraine. Zavzpret is beneficial but causes nausea. She was previously followed by Dr Barnett with [facility] neurology. Botox was helpful, but she noticedmost benefit from masseter injections. She was no longer able to follow with him due to insurance issues. She recently saw Dr Jakub Burger while waiting for this appt. He administered botox in masseters 2 months ago and this has been beneficial. She was diagnosed with IIH several years ago while under the care of Dr. Barnett. This diagnosis was made after undergoing an LP and OP was twice what it should have been. She was evaluated by Dr Chang, neuro business analysis professional at [facility], and no papilledema was noted on exam. She notes she experienced lowpressure headaches after the LP, requiring 2 blood patches. She developed postural headache earlier this year, which began after chiropractic manipulation. It would resolve immediately upon lying flat. She was told she was not a candidate for blood patch and they thought headache was migraine. She underwent an LP to work up these headaches, OP was 16, and pt states she was told she was not a candidate for blood patch because OP was not low enough. The postural headache eventually improved after approx 6 weeks. She has not experienced recurrence of the postural headaches since then. She c/o brain fog. She had always assumed it was due to headaches, but it has not improved with headache improvement. She has trouble with word finding. She speaks quickly and her words run together at times. She is anxious and typically speaks fast. She has trouble falling asleep and wakes up throughout the night. She typically gets 3-4 hrs of sleep. She snores occasionally with congestion. She reportedly had normal sleep study. She saw psychiatry several years ago, but no one recently. She was diagnosed bipolar disorder, ADITI,and MDD. PCP has tried several medications over the years, but she has not taken anything for mood in the last 1-2 yrs. She is open to psychiatry referral to better manage anxiety. They are trying to conceive and she is will be undergoing IVF later this month. Past meds tried for headaches: Diamox Topiramate Depakote Lamotrigine Levetiracetam Rizatriptan Nurte - variable efficacy Zavzpret - beneficial, causes nausea Flexeril Botox - beneficial Allergies Allergen Reactions Acetazolamide Swollen tongue Tongue [...] comments) SEIZURE ACTIVITY Oxycodone-Acetaminophen Nausea And Vomiting Current Outpatient Medications on File Prior to Visit Medication Sig Dispense Refill albuterol 2.5 mg /3 mL (0.083 %) nebulizer solution Take 3 mL (2.5 mg total) by nebulization every 4 (four) hours as needed for wheezing (Patient taking differently: Take 3 mL (2.5 mg total) by nebulization as needed for wheezing) 180 mL 0 albuterol HFA (PROVENTIL HFA,VENTOLIN HFA,PROAIR HFA) 90 mcg/actuation inhaler Inhale 2 puffs every4 (four) hours as needed for wheezing 6.7 g 0 cephalexin (KEFLEX) 500 mg capsule Take 1 capsule (500 mg total) by mouth 2 (two) times a day for 10 days 20 capsule 0 Estarylla 0.25-35 mg-mcg per tablet fluticasone propionate (FLOVENT HFA) 44 mcg/actuation inhaler PT WILL START SOON onabotulinumtoxinA, cosmetic, (Botox Cosmetic) 50 unit recon soln as directed Intramuscular ondansetron (ZOFRAN) 4 mg tablet tobramycin-dexAMETHasone (TOBRADEX) ophthalmic solution Administer 1 drop into the left eye 3 (three) times a day for 10 days 5 mL 0 zavegepant (Zavzpret) 10 mg/actuation spray,non-aerosol Administer 1 spray into affected nostril(s)daily as needed (migraine) 6 each 2 Nurtec ODT tablet,disintegrating Take 1 tablet (75 mg total) by mouth every other day (Patient not taking: Reported on 11/02/2023) No current facility-administered medications on file prior to visit. Patient Active Problem List Diagnosis Pseudarthrosis after [...] obesity with BMI of 40.0-44.9, adult (HCC) Simple obesity Exposure to COVID-19 virus Acute cough Chronic bilateral low back pain Left hip pain Chronic pain of both knees Lumbar degenerative disc disease Chronic pain of both hips Anxiety and depression Reactive airway disease without asthma Prepatellar bursitis of both knees Lumbar spondylosis Fluid retention Leg cramping Well adult exam Other chronic pain Bipolar 2 disorder (CMS/HCC) ([facility]) Patellar maltracking, left Plantar fasciitis Localized [...] to other specified organisms Diplopia Pituitary adenoma ([facility]) Moderate persistent asthma with acute exacerbation Lumbar radiculopathy Liver mass Nasal congestion Infertility, female TMJ arthralgia Maxillary pain Constipation Allergic rhinitis due to animal hair and dander Chronic allergic conjunctivitis Chronic sinusitis Restlessness and agitation Upper respiratory tract infection Hemangioma of intra-abdominal structure Hordeolum internum of left lower eyelid Exotropia Past Medical History: Diagnosis Date ADHD (attention deficit hyperactivity disorder) Allergic rhinitis Anxiety Arthritis Asthma Brain concussion 2009 Chronic bronchitis ([facility]) Depression Ear problems Gastric reflux GERD (gastroesophageal reflux disease) PRN tums Hypertension, essential 05/27/2022 IIH (idiopathic intracranial hypertension) Pseudotumor cerebri. reports last spinal tap 2017. 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 Seasonal allergies Seizure ([facility]) 04/25/2017 Seizures ([facility]) off medication since 2018 with no [...] or 2 Frequency of Binge Drinking: Never Vital Signs Vitals: 11/02/23 1102 BP: 129/87 BP Location: Left arm Patient Position: Sitting Pulse: 72 Temp: 37.1 ??C (98.8 ??F) TempSrc: Temporal SpO2: 100% Weight: 118.2 kg (260 lb 8 oz) Height: 170.2 cm (5' 7.01 ) Review of Systems Review of Systems Constitutional: Negative for fever, malaise/fatigue and weight loss. HENT: Negative for congestion, hearing loss and tinnitus. Eyes: Positive for blurred vision and double vision. Respiratory: Negative for cough, shortness of breath and wheezing. Cardiovascular: Negative for chest pain and palpitations. Gastrointestinal: Negative for constipation, diarrhea, heartburn, nausea and vomiting. Genitourinary: Negative for frequency and urgency. Musculoskeletal: Negative for back pain, falls, joint pain, myalgias and neck pain. Skin: Negative for itching and rash. Neurological: Positive for headaches. Negative for dizziness, tingling, tremors, speech change, focal weakness, seizures, loss of consciousness and weakness. Endo/Heme/Allergies: Does not bruise/bleed easily. Psychiatric/Behavioral: Negative for depression, hallucinations and substance abuse. The patient isnervous/anxious and has insomnia. Physical Exam Neurologic Exam She appeared well and in no apparent distress. She appeared somewhat anxious and speech was rapid. She was A &O to person, place and date. She was able to follow simple and complex commands. Speech was clear and fluent. She was able to provide a detailed history and answered questions appropriately. HEENT: normocephalic and atraumatic. No conjunctival injection. Oropharynx clear. Neurological exam: Cranial nerves II-XII intact: Visual somers were full. No ptosis, pupils were equal round and reactive to light, discs were sharp without pallor, extraocular movements intact, facial sensation intact, face symmetric, hearing intact, tongue midline, palate upgoing bilaterally, shoulder shrug and head turning intact. Strength full throughout. Tone was normal. There was no tremor at rest, with action or posture. Fine finger movements were equal bilaterally. There was no drift. Finger to nose was intact. Sensation was intact to light touch and pinprick. Romberg negative. Patient was able to stand from seated position without assist. Gait was normal based and she could heel, toe and tandem walk. Deep tendon reflexes were 1+ throughout and symmetric. Assessment/Plan Diagnosis Plan 1. Chronic migraine without aura without status migrainosus, not intractable 2. Other insomnia Ambulatory referral to Sleep Medicine 3. Anxiety disorder, unspecified type Ambulatory referral to Sleep Medicine Plan Jud Crocker presented today for 2nd opinion on chronic migraine and brain fog. I reviewed previous Neurology and Neuro-Ophthalmology records, and reviewed multiple imaging studies. She had previously been diagnosed with IIH, although this diagnosis seems questionable, as she reports having low pressure headaches after undergoing the LP, and was never noted to have papilledema on exam. Nevert heless, she has since had headaches more consistent with migraine. She had a recent neuro ophthalmologic exam performed by Dr. Serrano, which did not reveal any signs of papilledema. She reports significant improvement in her chronic headaches after eliminating gluten from her dietand limiting dairy. She also reports significant benefit from Botox injections in the masseters, which was recently performed by Dr. Burger. She is currently trying to conceive and will be undergoingIVF in the near future, so I did not recommend adding any additional medications other than supplements. I recommended riboflavin 400 mg and magnesium oxide 500 mg nightly for migraine prevention. I explained these may be continued in and if needed. We discussed migraine headache etiology and treatment in detail. We discussed the importance of diet, hydration, exercise, maintaining good sleep hygiene and sleeping regular hours. We discussed the benefits of avoidance of processed foods, skipping meals, excessive caffeine intake, artificial sweeteners, and alcohol. We discussed the impact of stress or stress let down, flying, high altitude, barometric pressure changes, and in women menses, perimenopause and post menopause. I have given her aheadache calendar to track the frequency and intensity of the migraines and the associated symptoms. I have also given her a headache diet to review and determine if there are food triggers to avoid.I have included web site information for the [place] [employer] and the [place] [employer] should she decide to do more reading about migraines. The 2nd reason for her visit was concerns about brain fog. We discussed how chronic headaches may contribute to brain fog. Unfortunately, she has not seen significant improvement in brain fog symptoms even after headaches have decreased in frequency. We discussed several other factors that may be co ntributing including uncontrolled anxiety and inadequate sleep. She reportedly had normal sleep study without evidence of WALTER. I recommended CBT-I, and she was very interested in this referral. I have placed referral to our sleep psychologists and they will contact her for an appointment. I also recommended reestablishing with psych for better management of her anxiety. She was followed by psychiatrist several years ago and diagnosed with bipolar disorder, MDD, and ADITI, but has not been followed by psych in the last several years. She has trialed several medications with her PCP. I have givenher a list of local psychiatrists and psychologists as well as their contact information so that she may call to schedule an appointment. I think she has a good understanding of what we discussed. All questions were answered in detail. I spent a total of 51 [id number] minutes of which more than 50% of visit spent counseling and coordinating care. In addition to the time spent during the session with the patient, I spent 12 minutes preparing to see the patient, 5 minutes documenting clinical information and ordering tests and medications. Total time spend on encounter on the day of the visit: 68 minutes. No follow-ups on file. Future Appointments Date Time Provider Department Center 02/02/2024 7:00 AM [facility] BNMR4 [facility] N MRI [facility] Main [facility] 02/02/2024 8:40 AM Ange Chavez MD [facility] Thank you for allowing me to participate in the care of your patient. If you have any questions, feel free to contact me. Sincerely, GALINA Alvarenga documented in this encounter Plan of Treatment Scheduled Referrals Name Type Priority Associated Diagnoses Orde r Schedule Ambulatory referral to Sleep Medicine Outpatient Referral Routine Other insomnia Anxiety disorder, unspecified type Expected: 11/16/2023 (Approximate), Expires: 11/01/2024 documented as of this encounter Goals Goal Patient Goal Type Associated Problems Recent Progress Patient-Stated? Author CCM Chronic Pain Care Plan Chronic Care Management No Sangeetha Parsons, LEE Note: Problem: Chronic Pain Goals: 1. Minimize further functional decline 2. Maximize quality of life 3. Control pain Strategies: - Activity/exercise program recommendation - Conservative stepwise pain medicine strategy with multi-disciplinary approach - Recommend healthy lifestyle strategies and compensatory methods as needed documented as of this encounter Visit Diagnoses Diagnosis Chronic migraine without aura without status migrainosus, not intractable- Primary Other insomnia Anxiety disorder, unspecified type documented in this encounter Discontinued Medications Medication Sig Discontinue Reason Start Date End Da te olopatadine-mometasone (Ryaltris) 665-25 mcg/spray spray,non-aerosol every 12 hours Therapy completed 11/02/2023 sodium chloride-sodium bicarbonate (Nasal Wash) packet with rinse device as directed Nasally Therapy completed 09/11/2023 11/02/2023 sucralfate (CARAFATE) 1 gram tablet Take 1 tablet (1 g total) by mouth 3 (three) times a day Therapy completed 10/01/2023 11/02/2023 documented as of this encounter Historical Medications * This list may reflect changes made after this encounter. fluticasone propionate (FLOVENT HFA) 44 mcg/actuation inhaler PT WILL START SOON 10/31/2023 12/29/2023 Estarylla 0.25-35 mg-mcg per tablet 11/01/2023 024 added in this encounter Care Teams Mail Service Coordinator Relationship Specialty Start Date End Date Daily Cruz MD PCP - General Family Medicine 03/04/21 Savannah Holt PA [address] [facility] [address] [address] Physician Golf Teacher Neurology 06/07/23 Ange Chavez MD [address] [facility] [address] [address] Consulting Physician Endocrinology 06/07/23 documented as of this encounter
--- OUTSIDE RECORDS SUMMARY | 2024-02-21 19:34 | XMS_ITS | Encounter Summary ---
Author Organization [facility] Healthcare Address [address] [place] [address] Care Team Providers Care Astronaut Mission Specialist Name Role Phone Daily Cruz MD Primary Care Provider [phone] Reason for Visit * Reason Onset Date Comments ROCCO Questions 06/05/2023 Encounter Details Date Type Department Care Team (Late st Contact Info) Description 06/05/2023 Telephone [facility] Medical Group Family Medicine at [facility] [address] [place] [phone] Daily Curz MD [address] [place] [phone] ROCCO Questions Social History Tobacco Use Types Packs/Day Years [...] on file Legal 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 Yes Date Admitted: 05/30/23 Date Discharged: 06/05/23 Facility Admitted To: [facility] Reason for Stay? Orthostatic postoral Headaches If prescribed new medications, do you have any questions or concerns? No. Do you have enough medication to get you to your follow-up appointment? N/A Since being released do you feel better, the same, or worse? Same Date of ROCCO Appointment: TBD - [facility] unable to schedule within ten day window. First available 06/19/23; Patient would need to be seen by 06/15/23. Do you have transportation to the appointment? Yes Additional Comments: Patient is requesting urgent ROCCO appt; Patient states she has been in the hospital for orthostatic postoral headaches and hospital was unsuccessful in finding answers. Patient states head pressure started about 12 hrs following chiropractic adjustment. Patient states she is concerned as she did have spinal tap today and has history of leaking with spinal taps. Patient requesting urgent ROCCO appt for soonest possible. Please advise with patient by phone to discuss. Does message need to be routed? Yes-Action [...] on filedocumented in this encounter Care Teams Astronaut Mission Specialist Relationship Specialty Start Date End Date Daily Cruz MD PCP - General Family Medicine 03/04/21 documented as of this encounter
--- OUTSIDE RECORDS SUMMARY | 2024-02-21 19:34 | XMS_ITS | Encounter Summary ---
Author Organization [facility] Healthcare Address [address] [place] [address] Care Team Providers Care Pickling Drum Operator Name Role Phone Daily Cruz MD Primary Care Provider [phone] Encounter Details Date Type Department Care Team (Late st Contact Info) Description 05/24/2023 Nurse Triage [facility] Medical Group Family Medicine at [address] [address] Daily Cruz MD [address] [place] [address] [address] [place] [address] Social History Tobacco Use Types Packs/Day Years Used Date Smoking Tobacco: Never Passive Smoke Exposure: Past Smokeless Tobacco: Never Alcohol Use Standard Drinks/Week Comments Not Currently 0 (1 standard drink = 0.6 oz pure alcohol) Maybe a drink every few months AUDIT-C Answer Date Recorded Q1: How often do you have a drink containing alc ohol? Monthly or less 02/28/2023 Q2: How many drinks containi ng alcohol do you have on a typical day when you are drinking? 1 or 2 02/28/2023 Q3: How often do you have si x or more drinks on one occasion? 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 She reports h/o headaches that occur around menstrual cycle, headaches usually last 2 days. Was seen by chiropractor today for neck pain, chiropractor would not adjust her because of the way she was holding her neck. Reports headache is in the back of her head and radiates into her neck, shoulders, and back. Pt reports if she is standing up straight or is looking down, it causes severe pain and feels like my brain is being squished , she also feels extreme nausea. Pt reports she has felt like she cannot warm up and feels likeshe is freezing but has not checked her temp. She has been very fatigued recently. scowman: Be seen in ER now FYI sent to clinical group Reason for Disposition Stiff neck (can't touch chin to chest) Protocols used: [id number] * Telephone Encounter - Annie Lambert RN - 05/24/2023 7:22 PM CDT Regarding: Severe pain (headache, neck, & shoulders) ----- Message from Sapphire Rogers sent at 05/24/2023 7:05 PM CDT ----- Symptom Based Call Chief Complaint(s): Severe pain (headache, neck, & shoulders) Duration: over a week What type of symptom(s) is the patient experiencing? Red Flag. Is the patient concerned they are experiencing a medical emergency requiring an ambulance? No Additional Comments: Jud complains of headache, not improving hx of intracranial hypertension Was seen by chiropractor today & they were concerned about spinal fluid build up. As a result, they were unable to complete the adjustment & advised Jud to contact PCP rufus. pain in shoulders & neck hurts to hold head up straight Does message need to be routed? Yes-Action [...] on filedocumented in this encounter Care Teams Pickling Drum Operator Relationship Specialty Start Date End Date Daily Cruz MD PCP - General Family Medicine 03/04/21 documented as of this encounter
--- OUTSIDE RECORDS SUMMARY | 2024-02-21 19:34 | XMS_ITS | Encounter Summary ---
Author Organization [facility] Healthcare Address [address] [place] [address] Care Team Providers Care American Indian Policy Specialist Name Role Phone Daily Cruz MD Primary Care Provider [phone] Savannah Holt Unavailable [phone] Ange Chavez MD Unavailable [phone] Encounter Details Date Type Department Care Team (Late st Contact Info) Description 06/09/2023 Telephone [facility] Medical Group Family Medicine at [facility] [address] [facility] [address] Daily Cruz MD [address] [place] [address] [address] [place] [address] Social History Tobacco Use Types [...] on file Legal Sex Female 3:37 PM GROUP THERAPIST Gender Identity Female 03/02/2020 4:27 PM GROUP THERAPIST Sexual Orientation Straight 07/10/2019 11 :13 PM CDT documented as of this encounter Miscellaneous Notes * Telephone Encounter - Lisa Zurita MA - 06/09/2023 9:21 AM CDT LVM regarding her coming to sign a record release. We close the office at 130-2 and will open back Monday @ 730 documented in this encounter Plan of Treatment [...] on filedocumented in this encounter Care Teams American Indian Policy Specialist Relationship Specialty Start Date End Date Daily Cruz MD PCP - General Family Medicine 03/04/21 Savannah Holt PA [address] [facility] DIV NEUROLOGY [address] [address] Physician Economic Specialist Neurology 06/07/23 Ange Chavez MD [address] [facility] DIV NEUROLOGY [address] [address] Consulting Physician Endocrinology 06/07/23 documented as of this encounter
--- OUTSIDE RECORDS SUMMARY | 2024-02-21 19:34 | XMS_ITS | Encounter Summary ---
Author Organization [facility] Address [address] [place] [address] Phone Care Team Providers Care Finished Hardware Erector Name Role Phone Daily Cruz MD Primary Care Provider [phone] Savannah Holt Unavailable [phone] Ange Chavez MD Unavailable [phone] Reason for Visit * Reason Comments Sinusitis Pain in left cheek s inus x 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 Gender Identity Female 03/02/2020 4:27 PM ASSISTANT MEDIA PLANNER Sexual Orientation Straight 07/10/2019 11 :13 PM CDT documented as of this encounter Last Filed Vital Signs Vital Sign Reading Time Taken Comments Blood Pressure - - Pulse - - Temperature - - Respiratory Rate 18 07/31/2023 9:39 AM CDT Oxygen Saturation - - Inhaled Oxygen Concentration - - Weight 115.7 kg (255 lb) 07/31/2023 9:39 AM CDT Height 170.2 cm (5' 7 ) 07/31/2023 9:39 AM CDT Body Mass Index 39.94 07/31/2023 9:39 AM CDT documented in this encounter Progress Notes * Montez Carrion II, MD - 07/31/2023 9:00 AM CDT Jud Crocker was seen in the office today. Primary care provider is Daily Cruz MD. Chief Complaint: Jud Crocker is a 32 y.o. female with complaints of multiple problem. HPI: She comes to clinic today for evaluation of multiple problems. Patient has had difficulty withintractable headaches that have been present for a number of months. She also gets pain in the leftside of her face and around the left eye. She has apparently been treated for repeated sinus infections with several antibiotics going on since January 2023. She did have a CT scan performed January of [address] performed in November of 2022 that did not show sinus inflammation. Most recently she was hospitalized for headaches at [facility] and apparently had scans performed atthat time but I do not have those records. Patient does have a history of allergic rhinitis. She has been seen by traffic incident management manager and has been tested and had positive skin testing but she stopped her shotsand she is stopped all of her allergy medication including Sravanthi and Flonase as well. Past Medical/Surgical History Past Medical History: Diagnosis Date ADHD (attention deficit hyperactivity disorder) Allergic rhinitis Anxiety Arthritis Asthma Brain concussion 2010, 2009 Chronic bronchitis (HCC) Depression Ear problems Gastric reflux GERD (gastroesophageal reflux disease) PRN tums Hypertension, essential 05/27/2022 IIH (idiopathic intracranial hypertension) Pseudotumor cerebri. reports last spinal tap 2017. 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 Seasonal allergies Seizure (HCC) 04/25/2017 Seizures ([facility]) off medication since 2018 with no further [...] 2018 NASAL ENDOSCOPY TONSILLECTOMY WISDOM TOOTH EXTRACTION Past Family/Social History Family History Problem Relation Age of Onset [...] or 2 Frequency of Binge Drinking: Never Medications/Allergies/Immunizations Current Outpatient Medications Medication Sig Dispense Refill albuterol 2.5 mg /3 mL (0.083 %) nebulizer solution Take 3 mL (2.5 mg total) by nebulization every 4 (four) hours as needed for wheezing (Patient not taking: Reported on 07/31/2023) 180 mL 0 albuterol HFA (PROVENTIL HFA,VENTOLIN HFA,PROAIR HFA) 90 mcg/actuation inhaler Inhale 2 puffs every4 (four) hours as needed for wheezing (Patient not taking: Reported on 07/31/2023) 6.7 g 0 cyclobenzaprine (FLEXERIL) 5 mg tablet Take 1 tablet (5 mg total) by mouth 3 (three) times a day asneeded for muscle spasms (Patient not taking: Reported on 07/06/2023) 30 tablet 0 Nurtec ODT tablet,disintegrating Take 1 tablet (75 mg total) by mouth every other day (Patient not taking: Reported on 07/06/2023) zavegepant (Zavzpret) 10 mg/actuation spray,non-aerosol Administer 1 spray into affected nostril(s)daily as needed (migraine) (Patient not taking: Reported on 07/31/2023) 6 each 2 No current facility-administered medications for this visit. Allergies: Acetazolamide, Dihydroergotamine, Hydrochlorothiazide, Latex, Nickel, Topiramate, Hydrocodone-acetaminophen, Lamotrigine, Levetiracetam, and Oxycodone-acetaminophen, Immunizations: Immunization History Administered Date(s) Administered DTP / HiB 1991, 03/05/1992, 05/14/1992 DTaP 12/31/1992, 10/02/1997 HPV, Quadrivalent 11/27/2008, 04/17/2009 HPV, Unspecified 10/08/2008, 11/27/2008, 04/17/2009 Hib (HbOC) 12/31/1992 Influenza, Split 11/27/2008 Influenza, Trivalent, Intramuscular 04/21/2016 Influenza, Unspecified 11/13/2018, 12/03/2019, 11/13/2021 MMR 12/31/1992, 10/02/1997 OPV 1991, 03/05/1992, 12/31/1992, 10/02/1997 Pfizer SARS-CoV-2 Monovalent Vaccination (12+ Yrs) PURPLE 05/15/2020, 08/25/2020, 09/15/2020 Review of Systems The 12 point review of systems filled out by the patient on their history form was reviewed today, and will be scanned into the encounter. Vital Signs: Vitals Resp 18 Ht 170.2 cm (5' 7 ) Wt 115.7 kg (255 lb) BMI 39.94 kg/m?? PHYSICAL EXAMINATION: GENERAL: Well-developed, well-nourished. Answers questions appropriately. HEAD/FACE: Normocephalic; atraumatic. No concerning facial skin lesions. Facial strength is 5/5 andthe face is symmetric. EARS : External ears have no skin lesions. Auricles are regularly set on the head. Hearing is grossly intact. Right - EAC patent. TM intact without scarring or perforation. Middle ear aerated without serous effusion or middle ear process. Left - EAC patent. TM intact without scarring or perforation. Middle ear aerated without serous effusion or middle ear process. NOSE: External nose has no skin lesions. Nasal dorsum is essentialy midline. Nasal septum is midline. Inferior turbinates are moderately hypertrophied with bluish tint and bogginess. Middle turbinates are normal size. Drainage seen on each side of the nose is normal and clear.No mucosal lesions or polyps are seen on either side. ORAL CAVITY/ OROPHARYNX: Skin of the lips is without lesions. Normal oral vestibule. Oral mucosa ismoist without lesions. Tongue and floor of mouth are without lesions or masses. Palate has no lesions and elevates symmetrically.. Oropharynx is clear without erythema or exudate. NECK: Trachea is midline. Thyroid is normal in size with no apparent nodules. Neck with good range of motion. Salivary Glands: The submandibular glands are non-tender without masses. The parotid glands are non-tender without edema or masses. There is clear saliva flow from Stensen's and Nicholas's ducts bilaterally. LYMPHATIC: No cervical lymphadenopathy. RESPIRATORY: Breathing comfortably. PROCEDURE: Procedure: Sinonasal Endoscopy (CPT 95268): Indication: Anterior rhinoscopy was inadequate to visualize the anatomy of the nasal cavity. Therefore, to better evaluate the patient???s symptoms including any of the following: nasal congestion, anosmia, sinus pressure, nasal masses, headache, and mucopurulent drainage, sinonasal endoscopy is indicated. After discussion of risks and benefits including bleeding, infection, change in sense of smell etc.the patient wished to proceed with the endoscopy. Surgeon: Montez Carrion II, MD Anesthesia: Topical 4% lidocaine, 1% topical ephedrine decongestant Complications: None Exam: Nose was decongested and anesthetized as described. 0 and/or 30 degree endoscope was used to examine the nasal cavity 1st on the left and then on the right. The interior of the nasal cavity wasinspected from the nostril to the nasopharynx. The nasal valve area was inspected looking for nasalvalve collapse or stenosis. The inferior, middle, and superior turbinates were examined. The middleand superior meatus was examined and the sphenoethmoid recess was also examined. Abnormalities are described in the findings section. Findings: There was bilateral inferior turbinate hypertrophy. There is small amount of mucoid drainage on each side of the nose without purulence or mass lesions on either side. No orders of the defined types were placed in this encounter. No orders of the defined types were placed in this encounter. ASSESSMENT & PLAN Problem List Items Addressed This Visit ENT Allergic rhinitis due to allergen TMJ arthralgia Maxillary pain Neuro Migraine headache - Primary Patient with complaints of left facial pain and eye pain. She does have allergic rhinitis as well and is off all medications. I recommended she see her traffic incident management manager and look for alternative treatment that she can tolerate. In the meantime I would like to get a look at her recent CT scans show if thereis any evidence of sinus inflammation on her more recent scans but CT scan in November and January of 2023 has not shown any significant sinus inflammation. If those scans that are recent are all negative then she needs to be seen by her medical team and Neurology again. Medical records from the primary care physician and/or the referring physician were personally reviewed for today's visit. Patient is at moderate level medical decision-making. She has chronic problem of headaches with uncertain prognosis. She has chronic problem of maxillary pain and allergic rhinitis that required discussion regarding medications. I reviewed medical records from her primary care physician. I reviewed2 separate CT scans including CT of the head from November [address] of the sinuses from January 14. This note was generated with voice recognition software and small grammatical errors may be encountered. Montez Carrion II, M.D. documented in this encounter Plan of Treatment [...] as of this encounter Visit Diagnoses Diagnosis Intractable chronic migraine without aura and with status migrainosus- Primary TMJ arthralgia Arthralgia of temporomandibular joint Maxillary pain Non-seasonal allergic rhinitis due to pollen documented in this encounter Care Teams Finished Hardware Erector Relationship Specialty Start Date End Date Daily Cruz MD PCP - General Family Medicine 03/04/21 Savannah Holt PA [address] [facility] NEUROLOGY [address] [address] Physician Occupational Medicine Physician Neurology 06/07/23 Ange Chavez MD [address] [address] Consulting Physician Endocrinology 06/07/23 documented as of this encounter
--- OUTSIDE RECORDS SUMMARY | 2024-02-21 19:34 | XMS_ITS | Encounter Summary ---
Author Organization [facility] Address [address] [place] [address] Phone Care Team Providers Care Importer Exporter Name Role Phone Daily Cruz MD Primary Care Provider [phone] Encounter Details Date Type Department Care Team (Late st Contact Info) Description 01/19/2023 Orders Only [facility] Allergy and Immunology [address] [facility] [address] [place] [address] Elyssa Sawyer, OSCAR [address] [place] [address] Chronic sinusitis, unspecified location (Primary Dx) Social History Tobacco Use Types Packs/Day Years Used Date Smoking Tobacco: Never Passive Smoke Exposure: Past Smokeless Tobacco: Never Alcohol Use Standard Drinks/Week Comments Not Currently 0 (1 standard drink = 0.6 oz pure alcohol) Maybe a drink every few months AUDIT-C Answer Date Recorded Q1: How often do you have a drink containing alcohol? Monthly or less 01/03/2023 Q2: How many drinks containi ng alcohol do you have on a typical day when you are drinking? Patient does not drink Q3: How often do you have si x or more drinks on one occasion? Never 01/03/2023 PHQ-2 Answer Date Recorded PHQ-2 Total Score (If total score is 3 or more points, staff should administer the PHQ-9) 0 11/22/2022 Comments No Sex and Gender Information Value Date Recorded Sex Assigned at Not on file Legal Sex Female 3:37 PM SELF DEFENSE INSTRUCTOR Gender Identity Female 03/02/2020 4:27 PM SELF DEFENSE INSTRUCTOR Sexual Orientation Straight 07/10/2019 11 :13 [...] of this encounter Visit Diagnoses Diagnosis Chronic sinusitis, unspecified location- Primary documented in this encounter Care Teams Importer Exporter Relationship Specialty Start Date End Date Daily Cruz MD PCP - General Family Medicine 03/04/21 documented as of this encounter
--- OUTSIDE RECORDS SUMMARY | 2024-02-21 19:34 | XMS_ITS | Encounter Summary ---
Author Organization [facility] Address [address] [place] [address] Phone Care Team Providers Care Taping Supervisor Name Role Phone Daily Cruz MD Primary Care Provider [phone] Encounter Details Date Type Department Care Team (Late st Contact Info) Description 01/18/2023 Telephone [facility] Allergy and Immunology [address] 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 TG JANICE 01/18/23 at 11:23AM R SPECIALIST documented in this encounter Plan of Treatment [...] on filedocumented in this encounter Care Teams Taping Supervisor Relationship Specialty Start Date End Date Daily Cruz MD PCP - General Family Medicine 03/04/21 documented as of this encounter
--- OUTSIDE RECORDS SUMMARY | 2024-02-21 19:34 | XMS_ITS | Encounter Summary ---
Author Organization [facility] Healthcare Address [address] [place] [address] Care Team Providers Care Gluing Machine Operator Automatic Name Role Phone Daily Cruz MD Primary Care Provider [phone] Reason for Referral * Diagnostic Imaging (Routine) - Closed Specialty Diagnoses / Procedures Referred By Contac t Referred To Contact Diagnoses Great toe pain, left Procedures XR Toe 4th Digit Left Minimum 2 Views Selam Orosco NP [address] [facility] [address] [place] [address] Phone: tel: fax: [facility] Referral ID Status Reason Start Date Expiration Date Visits Re quested Visits Authorized [id number] Closed 04/17/2023 05/16/2024 1 1 BING FOREMAN Reason for Visit * Diagnostic Imaging (Routine) - Closed Specialty Diagnoses / Procedures Referred By Contac t Referred To Contact Diagnoses Great toe pain, left Procedures XR Toe 4th Digit Left Minimum 2 Views Selam Orosco NP [address] [facility] [address] [place] [address] Phone: tel: fax: [facility] Referral ID Status Reason Start Date Expiration Date Visits Re quested Visits Authorized [id number] Closed 04/17/2023 05/16/2024 1 1 Encounter Details Date Type Department Care Team (Latest Contact Info) Description 04/17/2023 6:20 PM PLUMBING FOREMAN - 04/17/2023 11:59 PM PLUMBING FOREMAN Hospital Encounter [facility] Radiology at [facility] [address] [place] [address] Great toe pain, left Discharge Disposition: Discharge to home or self [...] on file Legal Sex Female 3:37 PM PLUMBING FOREMAN Gender Identity Female 03/02/2020 4:27 PM PLUMBING FOREMAN Sexual Orientation Straight 07/10/2019 11 :13 PM [...] as needed for wheezing 6.7 g 02/17/2023 dexAMETHasone (DECADRON) 1 mg tablet take 1 mg at 11pm and go to the lab the next morning at 8am to have your blood drawn. 1 tablet 02/22/2023 4 sodium, potassium & mag sulfates (SUPREP BOWEL KIT) 17.5-3.13-1.6 gram recon soln MIX 1 BOTTLE WITH WATER, TAKE AT 4PM THE DAY BEFORE PROCEDURE. DRINK 2ND BOTTLE 6 HRS BEFORE ARRIVAL 12/29/2022 4 documented as of this encounter Discharge [...] Name Priority Date/Time Associated Diagnosis Comments XR TOE 4TH DIGIT LEFT Schedule Routine, Read Routine (OP Routine) 04/17/2023 6:26 PM PLUMBING FOREMAN Great toe pain, left documented in this encounter Results * XR Toe 4th Digit Left Minimum 2 Views (04/17/2023 6:26 PM PLUMBING FOREMAN) Anatomical Region Laterality Modality Lower Extremities, Foot, Toes Left Co mputed Radiography 04/18/2023 5:20 AM PLUMBING FOREMAN Impressions 04/18/2023 5:20 AM PLUMBING FOREMAN 1. ??No radiographic evidence for acute osseous abnormality of the left 4th toe Electronically signed by: Vicki Ruvalcaba MD Narrative 04/18/2023 5:20 AM PLUMBING FOREMAN EXAMINATION: XR TOE ??4TH DIGIT LEFT MINIMUM 2 VIEWS HISTORY: ??Left toe pain FINDINGS: 4 radiographs of the left 4th toe are submitted for interpretation with comparison made to prior left foot radiographs 09/26/2021. No acute fracture. ??No convincing evidence for dislocation of the left 4th toe. ??No osseous erosion. ??Joint spaces are normal. Procedure Note Anahi Ruvalcaba MD - 04/18/2023 EXAMINATION: XR TOE 4TH DIGIT LEFT MINIMUM 2 VIEWS HISTORY: Left toe pain FINDINGS: 4 radiographs of the left 4th toe are submitted for interpretation with comparison made to prior left foot radiographs 09/26/2021. No acute fracture. No convincing evidence for dislocation of the left 4th toe. No osseous erosion. Joint spaces are normal. IMPRESSION: 1. No radiographic evidence for acute osseous abnormality of the left 4th toe Electronically signed by: Vicki Ruvalcaba MD Selam Orosco CHANGE PERSON IMG XR PROCEDURES Final Resul t documented in this encounter Visit Diagnoses Diagnosis Great toe pain, left documented in this encounter Care Teams Gluing Machine Operator Automatic Relationship Specialty Start Date End Date Daily Cruz MD PCP - General Family Medicine 03/04/21 documented as of this encounter
--- OUTSIDE RECORDS SUMMARY | 2024-02-21 19:34 | XMS_ITS | Encounter Summary ---
Author Organization [facility] of [facility] Address [address] [place] [address] Phone Care Team Providers Care Drywall Professional Name Role Phone Daily Cruz MD Primary Care Provider [phone] Encounter Details Date Type Department Care Team (Late st Contact Info) Description 01/18/2023 Telephone [facility] Scheduling [address] [place] [address] Lacey Sheppard Social History Tobacco Use Types Packs/Day Years [...] 0 11/22/2022 Personal Safety Answer Date Recorded Getting School Help Needed Denies 01/23 Comments No Sex and Gender Information Value Date Recorded Sex Assigned at Not on file Legal Sex Female 3:37 PM LONGWALL FOREMAN Gender Identity Female 03/02/2020 4:27 PM LONGWALL FOREMAN Sexual Orientation Straight 07/10/2019 11 :13 PM CDT documented as of this encounter Miscellaneous Notes * Telephone Encounter - Jimmy Chin - 01/23/2023 9:08 AM CST Per email review: Pt is to be scheduled with within 3-4 weeks Would this be possible to schedule? Thank you WALL FOREMAN * Telephone Encounter - Rafael Parson - 01/18/2023 10:53 AM CST Py has been loaded for review. Images in EPIC and letter sent for PIT labs and VFT to the pt's PCP Thank you WALL FOREMAN * Telephone Encounter - Rafael Parson - 01/18/2023 10:47 AM CST Department of Neurological Surgery at [facility] Cranial Intake Sheet 01/18/23 JUD NARAYAN 1990 [id number] Daily Cruz MD Are you a New or Returning Pt? new Referring physician PCP Referred to: Dr. Lyons Second Opinion: No Diagnosis: Pituitary - Need Pituitary Labs and Need Vision Field Test Insurance: Yes: Type of insurance [facility] Has the patient had brain surgery within the last year? No Blurred Vision: Yes Loss of Sight: No Weakness on one side of body or a particular area: No Loss of bowel or bladder control: No Duration of symptoms: 6 months Prior brain surgery within last 10 years: No Location: FAX Records Requested: N/a Destination Medicine: No Imaging Done within Last Year: Yes List ALL MRI: Month 2022 Imaging Location: [facility] FAX Records Requested: In [facility] Does the patient have any metal in their body? Like a stent or cardiac device? No File has been sent in for review WALL FOREMAN documented in this encounter Plan of Treatment [...] on filedocumented in this encounter Care Teams Drywall Professional Relationship Specialty Start Date End Date Daily Cruz MD PCP - General Family Medicine 03/04/21 documented as of this encounter
--- OUTSIDE RECORDS SUMMARY | 2024-02-21 19:34 | XMS_ITS | Encounter Summary ---
Author Organization [facility] Address [address] [place] [address] Phone Care Team Providers Care Technical Systems Architect Name Role Phone Daily Cruz MD Primary Care Provider [phone] Encounter Details Date Type Department Care Team (Late st Contact Info) Description 03/31/2023 Orders Only [facility] Endocrinology Metabolism and Lipid [address] [facility] 13th [place] [address] [place] [address] Jenna Mosquera RN Social History Tobacco Use Types Packs/Day [...] on file Legal Sex Female 3:37 PM PACKING MACHINE OPERATOR Gender Identity Female 03/02/2020 4:27 PM PACKING MACHINE OPERATOR Sexual Orientation Straight 07/10/2019 11 :13 [...] on filedocumented in this encounter Care Teams Technical Systems Architect Relationship Specialty Start Date End Date Daily Cruz MD PCP - General Family Medicine 03/04/21 documented as of this encounter
--- OUTSIDE RECORDS SUMMARY | 2024-02-21 19:34 | XMS_ITS | Encounter Summary ---
Author Organization [facility] Healthcare Address [address] [place] [address] Care Team Providers Care Ground Crewman Aircraft Support Name Role Phone Daily Cruz MD Primary Care Provider [phone] Savannah Holt Unavailable [phone] Ange Chavez MD Unavailable [phone] Reason for Referral * Consultation (Routine) - Closed Specialty Diagnoses / Procedures Referred By Contac t Referred To Contact Diagnoses Infertility, female Daily Cruz MD [facility] [facility] [address] [place] [address] Phone: tel: fax: External Order Referral ID Status Reason Start Date Expiration Date V isits Requested Visits Authorized [id number] Closed Specialty Services Required 07/14/2023 08/12/2024 1 1 Question Answer Please select the performing region: External Order [171] # of visits: 1 Comments Refer to [facility] phone number [phone] Reason for Visit * Reason Comments Follow-up Encounter Details Date Type Department Care Team (Late st Contact Info) Description 07/06/2023 3:45 PM CDT Telemedicine [facility] Medical Group Family Medicine at [place] [address] [facility] [address] [place] [address] Daily Cruz MD [address] [facility] [place] [address] Intractable chronic migraine without aura and with status migrainosus (Primary Dx); Nasal congestion; Infertility, female Social History Tobacco Use Types Packs/Day Years [...] on file Legal Sex Female 3:37 PM SWIMMING TEACHER Gender Identity Female 03/02/2020 4:27 PM SWIMMING TEACHER Sexual Orientation Straight 07/10/2019 11 :13 PM CDT documented as of this encounter Last Filed Vital Signs Vital Sign Reading Time Taken Comments Blood Pressure - - Pulse - - Temperature - - Respiratory Rate - - Oxygen Saturation - - Inhaled Oxygen Concentration - - Weight 117.5 kg (259 lb) 07/06/2023 4:03 PM CDT Height 170.2 cm (5' 7 ) 07/06/2023 4:03 PM CDT Body Mass Index 40.57 07/06/2023 4:03 PM CDT documented in this encounter Patient Instructions * Attachments The following attachments cannot be sent through Care Everywhere. * Female Infertility (Emulsification Operator) ([place] Citizen) documented in this encounter Ordered Prescriptions Prescription Sig Dispense Quantity Refills Last Filled Start Date End Date zavegepant (Zavzpret) 10 mg/actuation spray,non-aerosolI ndications:Migrain e Administer 1 spray into affected nostril(s) daily as needed (migraine) 6 each 2 07/14/2023 azithromycin (ZITHROMAX) 250 mg tabletIndications: Nasal congestion Take 2 tabs (500 mg) by mouth today, than 1 tab (250 mg) daily for 4 days. 6 tablet 07/06/2023 4 documented in this encounter Progress Notes * Daily Cruz MD - 07/06/2023 3:45 PM CDT Images from the original note were not included. Patient ID: Jud Crocker is a 32 y.o. female. Visit Date: 07/06/2023 This was a telemedicine visit with Jud Crocker alone which took place via real-time video connection. During the visit, I was located in the office and the patient was located at home in the [facility]. The patient visit startted at 16:38 and ended at 16:47. I have explained the option of participating in a telemedicine visit to the patient. After being given an opportunity to ask questions about and discuss this type of visit, the patient verbally consented to proceeding with the telemedicine visit. The patient understands that this service replaces an office visit and they may be billed and/or responsible for any applicable copayments. Chief Complaint migriane HPI HPI C/o nasal congesiton, sinsu pressure Patient and have been unsuccessful thus far in getting . Refer to infertily H/o migraines - [facility] was not helping the last headache Current Outpatient Medications: albuterol 2.5 mg /3 mL (0.083 %) nebulizer solution, Take 3 mL (2.5 mg total) by nebulization every4 (four) hours as needed for wheezing, Disp: 180 mL, Rfl: 0 albuterol HFA (PROVENTIL HFA,VENTOLIN HFA,PROAIR HFA) 90 mcg/actuation inhaler, Inhale 2 puffs every 4 (four) hours as needed for wheezing, Disp: 6.7 g, Rfl: 0 cyclobenzaprine (FLEXERIL) 5 mg tablet, Take 1 tablet (5 mg total) by mouth 3 (three) times a day as needed for muscle spasms (Patient not taking: Reported on 07/06/2023), Disp: 30 tablet, Rfl: 0 Nurtec ODT tablet,disintegrating, Take 1 tablet (75 mg total) by mouth every other day (Patient nottaking: Reported on 07/06/2023), Disp: , Rfl: zavegepant (Zavzpret) 10 mg/actuation [...] Negative for arthralgias and back pain. Neurological: Positive for headaches. Negative for dizziness. Hematological: Does not bruise/bleed easily. Psychiatric/Behavioral: Negative for behavioral problems and confusion. Ht 170.2 cm (5' 7 ) Wt 117.5 kg (259 lb) BMI 40.57 kg/m?? Body mass index is 40.57 kg/m??. Physical Exam Constitutional: Appearance: Normal appearance. HENT: Head: Normocephalic and atraumatic. Nose: Nose normal. Eyes: Extraocular Movements: Extraocular movements intact. Conjunctiva/sclera: Conjunctivae normal. Pulmonary: Effort: Pulmonary effort is normal. Musculoskeletal: Cervical back: Normal range of motion. Neurological: Mental Status: She is alert and oriented to person, place, and time. Psychiatric: Mood and Affect: Mood normal. Behavior: Behavior normal. Latest Reference Range & Units 05/25/23 10:16 Sodium 135 - 145 mmol/L 140 Potassium, pl 3.3 - 4.9 mmol/L 4.5 Chloride 97 - 110 mmol/L 105 CO2 22 - 32 mmol/L 25 Anion gap 2 - 15 mmol/L 10 BUN 6 - 25 mg/dL 16 Creatinine 0.60 - 1.10 mg/dL 0.60 Glucose 70 - 199 mg/dL 96 Calcium 8.5 - 10.3 mg/dL 8.0 (L) Bilirubin, total 0.1 - 1.2 mg/dL 0.3 Protein, pl 6.5 - 8.5 g/dL 7.5 Albumin 3.5 - 5.0 g/dL 4.3 eGFR >=60 mL/min/1.73 m2 >90 Alk phos 40 - 130 Units/L 93 AST 10 - 45 Units/L 10 ALT 7 - 45 Units/L 9 (L): Data is abnormally low Diagnoses and all orders for this visit: Intractable chronic migraine without aura and with status migrainosus (Primary) Assessment & Plan: Chronic Uncontrolled Failed: nurte Order zavpret Orders: - zavegepant (Zavzpret) 10 mg/actuation spray,non-aerosol; Administer 1 spray into affected nostril(s) daily as needed (migraine) Nasal congestion Assessment & Plan: New Likely sinus infection Order zpack Orders: - azithromycin (ZITHROMAX) 250 mg tablet; Take 2 tabs (500 mg) by mouth today, than 1 tab (250 mg) daily for 4 days. Infertility, female Assessment & Plan: New Refer to infertility specialist Orders: - Ambulatory referral to Infertility; Future Daily Cruz MD documented in this encounter Miscellaneous Notes * Assessment & Plan Note - Daily Cruz MD - 07/14/2023 6:30 AM CDT Associated Problem(s): Nasal congestion New Likely sinus infection Order zpack * Assessment & Plan Note - Daily Cruz MD - 07/14/2023 6:29 AM CDT Associated Problem(s): Infertility, female New Refer to infertility specialist * Assessment & Plan Note - Daily Cruz MD - 07/06/2023 4:46 PM CDT Associated Problem(s): Chronic migraine without aura without status migrainosus, not intractable Chronic Uncontrolled Failed: laurote Order zavpret documented in this encounter Plan of Treatment Scheduled Referrals Name Type Priority Associated Diagnoses Order Schedule Ambulatory referral to Infertility Outpatient Referral Routine Infertility, female Expected: 07/14/2023 (Approximate), Expires: 07/13/2024 documented as of this encounter Goals Goal [...] without aura and with status migrainosus- Primary Nasal congestion Other diseases of nasal cavity and sinuses Infertility, female documented in this encounter Care Teams Ground Crewman Aircraft Support Relationship Specialty Start Date End Date Daily Cruz MD PCP - General Family Medicine 03/04/21 Savannah Holt PA [address] [facility] NEUR[facility] [address] [address] Physician Game Protector Neurology 06/07/23 Ange Chavez MD [address] [facility] [address] [address] Consulting Physician Endocrinology 06/07/23 documented as of this encounter
--- OUTSIDE RECORDS SUMMARY | 2024-02-21 19:34 | XMS_ITS | Encounter Summary ---
Author Organization [facility] Address [address] [place] [address] Phone Care Team Providers Care Smoking Pipes Cleaner Name Role Phone Daily Cruz MD Primary Care Provider [phone] Savannah Holt Unavailable [phone] Ange Chavez MD Unavailable [phone] Encounter Details Date Type Department Care Team (Late st Contact Info) Description 06/13/2023 Telephone [facility] Ophthalmology [address] [facility] Health 6th [place] [address] Leisa Serrano MD [address] [facility] [address] [place] [address] Social History Tobacco Use Types [...] on file Legal Sex Female 3:37 PM SOFTWARE RELEASE ENGINEER Gender Identity Female 03/02/2020 4:27 PM SOFTWARE RELEASE ENGINEER Sexual Orientation Straight 07/10/2019 11 :13 PM CDT documented as of this encounter Miscellaneous Notes * Telephone Encounter - Fabiola Painting - 06/13/2023 2:02 PM CDT Called pt to schedule an follow up within 8-12 wks with no testing at [facility] location per Dr. Serrano. No answer left vm with cb number documented in this encounter Plan of Treatment [...] on filedocumented in this encounter Care Teams Smoking Pipes Cleaner Relationship Specialty Start Date End Date Daily Cruz MD PCP - General Family Medicine 03/04/21 Savannah Holt PA [address] [facility] NE[facility] [address] [address] Physician Yard Pilot Neurology 06/07/23 Ange Chavez MD [address] [facility] [address] [address] Consulting Physician Endocrinology 06/07/23 documented as of this encounter
--- OUTSIDE RECORDS SUMMARY | 2024-02-21 19:34 | XMS_ITS | Encounter Summary ---
Author Organization [facility] Healthcare Address [address] [place] [address] Care Team Providers Care Stitcher Operator Name Role Phone Daily Cruz MD Primary Care Provider [phone] Reason for Visit * Reason Onset Date Comments Abdominal Pain 02/01/2023 Encounter Details Date Type Department Care Team (Late st Contact Info) Description 02/01/2023 Nurse Triage [facility] Medical Group Family Medicine at [place] [address] [place] [phone] Lacey [place], LEE Social History Tobacco Use Types Packs/Day Years [...] on file Legal Sex Female 3:37 PM ALCOHOLISM WORKER Gender Identity Female 03/02/2020 4:27 PM ALCOHOLISM WORKER Sexual Orientation Straight 07/10/2019 11 :13 PM CDT documented as of this encounter Miscellaneous Notes * Telephone Encounter - Lacey Washington RN - 02/01/2023 9:35 AM ALCOHOLISM WORKER Ms. Leung calls in today with reports of ABD pain, nausea, diarrhea, distention since this weekend.She states abd pain above and around her umbilicous, distention, pale/oily stools. Stools this morning are liquid and rust color. She states stools leave a film in the stool and have been floating. At time of triage call, pain is 6/10. She states constant fould buruping and dizziness this morning. She denies CP, SOB, injury, . mens locker room attendant recommends ED. .PCP/PASSENGER INTERLINE CLERK contacted via secure chat for ED disposition consult. Recommendation from provider:Proceed to ED. Ms. Leung verbalizes understanding and agrees with plan of care. Reason for Disposition Pain is mainly in upper abdomen (if needed ask: 'is it mainly above the belly button?') SEVERE abdominal pain (e.g., excruciating) Protocols used: Abdominal Pain - [id number], Abdominal Pain - [id number] HOLISM WORKER * Telephone Encounter - Lacey Washington RN - 02/01/2023 9:30 AM ALCOHOLISM WORKER Regarding: stomach pain ----- Message from Ana Brooks MA sent at 02/01/2023 7:59 AM ALCOHOLISM WORKER ----- Symptom Based Call Chief Complaint(s): stomach pain Duration: since the weekend What type of symptom(s) is the patient experiencing? Non-Emergent. Is this a new or reoccurring symptom(s)? new What have you tried to help your symptom(s)? Acid medication Why was appointment not scheduled? Appointment availability did not meet the patient's need. Additional Comments: stomach pain, nausea, diarrhea, at one point stool was pail color, light beige, constant burping foul smelling, she has been taking her med for acid reflux, but not helping. Painis moderate, when she had the light colored stool, pain was severe. Called for appt, Does message need to be routed? Yes-Action Needed HOLISM WORKER documented in this encounter Plan of Treatment [...] on filedocumented in this encounter Care Teams Stitcher Operator Relationship Specialty Start Date End Date Daily Cruz MD PCP - General Family Medicine 03/04/21 documented as of this encounter
--- OUTSIDE RECORDS SUMMARY | 2024-02-21 19:34 | XMS_ITS | Encounter Summary ---
Author Organization [facility] Healthcare Address [address] [place] [address] Care Team Providers Care Enrollment Clerk Name Role Phone Daily Cruz MD Primary Care Provider [phone] Reason for Visit * Reason Onset Date Comments Cough 02/17/2023 Encounter Details Date Type Department Care Team (Late st Contact Info) Description 02/17/2023 Nurse Triage [facility] Medical Group Family Medicine at [address] [address] Daily Cruz MD [address] [place] [address] Social History Tobacco Use Types Packs/Day Years Used Date Smoking Tobacco: Never Passive Smoke Exposure: Past Smokeless Tobacco: Never Alcohol Use Standard Drinks/Week Comments Not Currently 0 (1 standard drink = 0.6 oz pure alcohol) Maybe a drink every few months AUDIT-C Answer Date Recorded Q1: How often do you have a drink containing alcohol? Never 02/08/2023 Q2: How many drinks containi ng alcohol do you have on a typical day when you are drinking? Patient does not drink Q3: How often do you have si x or more drinks on one occasion? Never 02/08/2023 PHQ-2 Answer Date Recorded PHQ-2 Total Score [...] on file Legal Sex Female 3:37 PM BOTTOM CRANE OPERATOR Gender Identity Female 03/02/2020 4:27 PM BOTTOM CRANE OPERATOR Sexual Orientation Straight 07/10/2019 11 :13 PM CDT documented as of this encounter Miscellaneous Notes * Telephone Encounter - Ally Mann RN - 02/17/2023 8:47 AM CST Reason for Disposition MODERATE difficulty breathing (e.g., speaks in phrases, SOB even at rest, pulse 100-120) and still present when not coughing Protocols used: [id number] Pt states onset of symptoms Monday with sore throat, then Monday coughing, has to cough hard toget up thick wells yellow phlegm, chest and back pain even without coughing, constant pain is low between breasts and between shoulder blades, hard to take deep breath, difficulty breathing, SOB at rest, yesterday lips purple and wells, denies purple lips today and she is not pale today, has bad chills, freezing, then sweating today 98.9 now, fever yesterday 102.0 orally, vomited yesterday, bad headache, pain left ear and neck, hard to turn to left, has had sinus infection for months and rounds of antibiotics. Pt denies bluish or wells discoloration to lips or face. Hx Asthma, Seizure, Hypercholesterolemia, HTN, Hyperthyroidism. Go to ED now. RN sent secure chat to PCP-possibly could be covid or a pneumonia. unfortunately I am not in the office today so would recommend ED. PCP/COUNTRY DIRECTOR contacted via secure chat for ED disposition consult. Recommendation from provider:Proceed to ED Care advice: Have someone drive you to ED for safety or call 911 if needed, after ED evaluation fluids, humidifier, rest. Call back if: Continued chest pain, difficulty breathing, or worsening symptoms. Pt verbalizes understanding and is agreeable with this plan. OM CRANE OPERATOR * Telephone Encounter - Ally Mann RN - 02/17/2023 8:34 AM CST Regarding: Chest pain + trouble breathing + severe headache ----- Message from Nikki Kovacs sent at 02/17/2023 8:25 AM BOTTOM CRANE OPERATOR ----- Symptom Based Call Chief Complaint(s): Chest pain + trouble breathing + severe headache Duration: 4 days What type of symptom(s) is the patient experiencing? Red Flag. Is the patient concerned they are experiencing a medical emergency requiring an ambulance? No Additional Comments: Patient is calling because she thinks she has some kind of upper respiratory infection. She states she has been running a fever, vomiting, has trouble breathing, has a deep painful cough that hurts in her chest, a severe headache, and states that her neck feels stiff. Patient states that she has a burning in her chest and back that radiates down her arms. Does message need to be routed? Yes-Action Needed OM CRANE OPERATOR documented in this encounter Plan of Treatment [...] on filedocumented in this encounter Care Teams Enrollment Clerk Relationship Specialty Start Date End Date Daily Cruz MD PCP - General Family Medicine 03/04/21 documented as of this encounter
--- OUTSIDE RECORDS SUMMARY | 2024-02-21 19:34 | XMS_ITS | Encounter Summary ---
Author Organization [facility] Address [address] [place] [address] Phone Care Team Providers Care Dental Receptionist Name Role Phone Daily Cruz MD Primary Care Provider [phone] Savannah Holt Unavailable Ange Chavez MD Unavailable [phone]- [phone] Encounter Details Date Type Department Care Team (Late st Contact Info) Description 08/02/2023 Telephone [facility] Ophthalmology [address] [facility] Health 6th [place] [address] Leisa Serrano MD [address] [facility] [address] [place] [address] Social History Tobacco Use Types [...] on file Legal Sex Female 3:37 PM PICK PACK WORKER Gender Identity Female 03/02/2020 4:27 PM PICK PACK WORKER Sexual Orientation Straight 07/10/2019 11 :13 PM CDT documented as of this encounter Miscellaneous Notes * Telephone Encounter - Alessia Berg CMA - 08/02/2023 2:45 PM CDT Spoke with isma who confirmed appointment date and time. documented in this encounter Plan of Treatment [...] on filedocumented in this encounter Care Teams Dental Receptionist Relationship Specialty Start Date End Date Daily Cruz MD PCP - General Family Medicine 03/04/21 Savannah Holt PA [address] [facility] NEUR[facility] [address] [address] Physician Inspector Watch Parts Neurology 06/07/23 Ange Chavez MD [address] [facility] NEUR[facility] [address] [address] Consulting Physician Endocrinology 06/07/23 documented as of this encounter
--- OUTSIDE RECORDS SUMMARY | 2024-02-21 19:34 | XMS_ITS | Encounter Summary ---
Author Organization [facility] Healthcare Address [address] [place] [address] Care Team Providers Care Bleacher [employer] Name Role Phone Daily Cruz MD Primary Care Provider [phone] [phone] Encounter Details Date Type Department Care Team (Latest Contact Info) Description 06/05/2023 10:57 AM CDT - 06/05/2023 11:59 PM CDT Hospital Encounter [address] [address] Discharge Disposition: Discharge to home or self [...] on file Legal Sex Female 3:37 PM SUPERVISOR ELECTRIC Gender Identity Female 03/02/2020 4:27 PM SUPERVISOR ELECTRIC Sexual Orientation Straight 07/10/2019 11 :13 PM [...] as needed for wheezing 6.7 g 02/17/2023 LORazepam (ATIVAN) 0.5 mg tablet 05/31/2023 phentermine (ADIPEX-P) 37.5 mg tabletIndication s:Morbid obesity with BMI of 40.0-44.9, adult (HCC) Take 1 tablet (37.5 mg total) by mouth daily before breakfast 30 tablet 2 05/12/2023 4 documented as of this encounter Discharge [...] Procedure Name Priority Date/Time Associated Diagnosis Comments HERPES SIMPLEX VIRUS (HSV) PCR Routine 06/06/2023 2:52 PM CDT documented in this encounter Results * Herpes Simplex Virus (HSV) PCR CSF (06/06/2023 2:52 PM CDT) HSV DNA Not Detected Not Detected [facility] Comment: Interpretive Data This assay is [...] Interpretive Data was last reviewed on 06/12/2018 CSF 06/06/2023 2:52 PM CDT 06/09/2023 7:17 AM CDT us Notinfile Unknown LAB MICROBIOLOGY - GENERAL ORD ERABLES Final Result [facility] Department [place] [address] [facility] documented in this encounter Visit Diagnoses Not on filedocumented in this encounter Care Teams Bleacher [employer] Relationship Specialty Start Date End Date Daily Cruz MD PCP - General Family Medicine 03/04/21 documented as of this encounter
--- OUTSIDE RECORDS SUMMARY | 2024-02-21 19:34 | XMS_ITS | Encounter Summary ---
Author Organization [facility] Address [address] [place] [address] Phone Care Team Providers Care Welder And Fitter Name Role Phone Daily Cruz MD Primary Care Provider [phone] [phone] Encounter Details Date Type Department Care Team (Late st Contact Info) Description 02/08/2023 11:20 AM CASE FINISHER Office Visit [facility] [address] [place] [address] Hortencia Rivera MD PhD [address] [place] [address] Chronic sinusitis, unspecified location (Primary Dx); Allergic rhinitis, unspecified seasonality, unspecified trigger Social History Tobacco Use Types Packs/Day Years [...] on file Legal Sex Female 3:37 PM CASE FINISHER Gender Identity Female 03/02/2020 4:27 PM CASE FINISHER Sexual Orientation Straight 07/10/2019 11 :13 PM CDT documented as of this encounter Last Filed Vital Signs Vital Sign Reading Time Taken Comments Blood Pressure 128/82 02/08/2023 11:39 AM CASE FINISHER Pulse 64 02/08/2023 11:39 AM CASE FINISHER Temperature 36.6 ??C (97.8 ??F) 02/08/2023 11:[address] Respiratory Rate 17 02/08/2023 11:39 AM CASE FINISHER Oxygen Saturation 98% 02/08/2023 11:39 AM CASE FINISHER Inhaled Oxygen Concentration - - Weight 114.8 kg (253 lb 3 oz) 02/08/2023 11:39 A M CASE FINISHER Height 170.2 cm (5' 7 ) 02/08/2023 11:39 AM CASE FINISHER Body Mass Index 39.65 02/08/2023 11:39 AM CASE FINISHER documented in this encounter Progress Notes * Dusty José MD - 02/08/2023 11:20 AM CST Images from the original note were not included. Daily Cruz MD, We had the pleasure of seeing Jud Crocker today in the Division of Allergy and Immunology at [facility] for routine follow-up. Jud Crocker was last seen here on Jan 16. Patient has history of asthma and allergic rhinitis. She had been on immunotherapy (started 12/05) but was feeling poor and given history of sinus congestion, pain and pressure symptoms these were stopped earlier this month. On her last visit, she underwent a CT sinus that showed a mucus retention cyst and mucosal thickening in her sphenoid sinus. She was also prescribed a course of azithromycin with no relief. She has also tried antibiotics previously (amoxacillin and cefdinir) states this didnot help along with a course of steroids. Since then she reports she reports ongoing facial tenderness and congestion with associated post nasal drip. No external discharge. She also reports ongoing pressure on frontal sinuses. No associated fevers during this time. Additionally awaiting follow up with ENT She has since stopped emerson, flonase and montelukast. Continues breztri for asthma. She stopped these medications after a recent ED visit for abdominal pains. Review of Symptoms: Review of systems has no pertinent positives; otherwise as noted in HPI. Allergies: Acetazolamide, Dihydroergotamine, Hydrochlorothiazide, Nickel, Topiramate, Hydrocodone-acetaminophen, Lamotrigine, Levetiracetam, and Oxycodone-acetaminophen Current Medications: Current Outpatient Medications: fexofenadine (EMERSON) 180 mg tablet, Take 1 tablet (180 mg total) by mouth 2 (two) times a day, Disp: 180 tablet, Rfl: 3 vxqhevyuzgjoy-pcvnpcj-uykfwmwx (EXCEDRIN MIGRAINE) 250-250-65 mg per tablet, Take 1 tablet by mouthevery 6 (six) hours as needed (Patient not taking: Reported on 02/08/2023), Disp: , Rfl: albuterol HFA (PROVENTIL HFA,VENTOLIN HFA,PROAIR HFA) 90 mcg/actuation inhaler, Inhale 2 puffs 4 (four) times a day for 5 days Use only as needed after those 5 days, Disp: 6.7 each, Rfl: 1 bumetanide (BUMEX) 1 mg tablet, Take 1 tablet (1 mg total) by mouth daily (Patient not taking: Reported on 02/08/2023), Disp: , Rfl: cholecalciferol (VITAMIN D-3) 5,000 unit tablet, Take 0.2 tablets (1,000 Units total) by mouth daily (Patient not taking: Reported on 02/08/2023), Disp: , Rfl: cyclobenzaprine (FLEXERIL) 10 mg tablet, , Disp: , Rfl: dicyclomine (BENTYL) 20 mg tablet, Take 1 tablet (20 mg total) by mouth 2 (two) times a day (Patient not taking: Reported on 02/08/2023), Disp: 20 tablet, Rfl: 0 ergocalciferol, vitamin D2, 50 mcg (2,000 unit) tablet, Take 2 tablets by mouth daily 5,000 (Patient not taking: Reported on 02/08/2023), Disp: , Rfl: famotidine (PEPCID) 40 mg tablet, TAKE 1 TABLET BY MOUTH EVERY DAY (Patient not taking: Reported on02/08/2023), Disp: 30 tablet, Rfl: 3 FLUoxetine (PROzac) 40 mg capsule, Take 1 capsule (40 mg total) by mouth daily (Patient not taking:Reported on 02/08/2023), Disp: 30 capsule, Rfl: 5 fluticasone propionate (FLONASE) 50 mcg/actuation nasal spray, Administer 2 sprays into each nostril daily (Patient not taking: Reported on 02/08/2023), Disp: 48 mL, Rfl: 1 hydrocortisone 2.5 % ointment, Apply topically 2 (two) times a day (Patient not taking: Reported on02/08/2023), Disp: 30 g, Rfl: 0 ibuprofen (ADVIL,MOTRIN) 800 mg tablet, Take 1 tablet (800 mg total) by mouth 3 (three) times a day(Patient not taking: Reported on 02/08/2023), Disp: 90 tablet, Rfl: 0 inhalational spacing device (Aerochamber Plus Z Stat) spacer, 1 unit marking on U-100 syringe 2 (two) times a day (Patient not taking: Reported on 02/08/2023), Disp: 1 each, Rfl: 0 loperamide (IMODIUM) 2 mg capsule, Take 1 capsule (2 mg total) by mouth 4 (four) times a day as needed for diarrhea (Patient not taking: Reported on 02/08/2023), Disp: 12 capsule, Rfl: 0 magnesium oxide 400 mg magnesium capsule, Take 400 mg by mouth daily (Patient not taking: Reported on 02/08/2023), Disp: , Rfl: montelukast (SINGULAIR) 10 mg tablet, TAKE 1 TABLET BY MOUTH EVERY DAY AT NIGHT (Patient not taking: Reported on 02/08/2023), Disp: 90 tablet, Rfl: 0 nystatin 100,000 unit/mL suspension, Take 5 mL (500,000 Units total) by mouth as needed (Patient not taking: Reported on 02/08/2023), Disp: , Rfl: omeprazole (PriLOSEC) 20 mg capsule, Take 1 capsule (20 mg total) by mouth 2 (two) times a day before breakfast and dinner (Patient not taking: Reported on 02/08/2023), Disp: 60 capsule, Rfl: 3 ondansetron ODT (ZOFRAN-ODT) 4 mg disintegrating tablet, Take 1 tablet (4 mg total) by mouth every 8 (eight) hours as needed for nausea or vomiting (Patient not taking: Reported on 02/08/2023), Disp:20 tablet, Rfl: 0 phentermine (ADIPEX-P) 37.5 mg tablet, Take 1 tablet (37.5 mg total) by mouth daily before breakfast (Patient not taking: Reported on 02/08/2023), Disp: 30 tablet, Rfl: 2 POTASSIUM CHLORIDE ORAL, Take by mouth daily (Patient not taking: Reported on 02/08/2023), Disp: , Rfl: rimegepant (Nurtec ODT) tablet,disintegrating, Take 1 tablet (75 mg total) by mouth as needed (takeevery other day PRN) (Patient not taking: Reported on 02/08/2023), Disp: 16 tablet, Rfl: 2 triamcinolone (KENALOG) 0.1 % cream, Apply topically 2 (two) times a day as needed for rash Do not use on the face or in the groin (Patient not taking: Reported on 02/08/2023), Disp: 454 g, Rfl: 2 Social History: Patient reports that she has never smoked. She has been exposed to tobacco smoke. She has never used smokeless tobacco. She reports that she does not currently use drugs after having used the following drugs: Alcohol. Patient denies consuming alcoholic drinks. No data to display Review of Symptoms Review of systems has no pertinent positives, o/w as noted in HPI. Reviewed patient's history form and the review of systems. Physical Exam: BP 128/82 Pulse 64 Temp 36.6 ??C (97.8 ??F) (Oral) Resp 17 Ht 170.2 cm (5' 7 ) Wt 114.8 kg (253 lb 3 oz) SpO2 98% BMI 39.65 kg/m?? General: Patient is well nourished, well developed and in no acute distress. HEENT: Normocephalic, atraumatic, EOMI. No conjunctival injection. Tympanic membranes clear bilaterally. Positive nasal mucosal pallor and nasal turbinate enlargement, no reduced nasal air flow, mild pharyngeal cobblestoning, no pretonsillar erythema, no exudate, maxillary sinus tenderness. Neck: Supple with no lymphadenopathy. Lungs: CTA. No wheezing, no accessory respiratory muscle activity or labored breathing. Cardiovascular: Regular rate and rhythm. No murmur. Skin: rashes, eczema or swelling Neurological and musculoskeletal: grossly intact Extremities: No clubbing, cyanosis, or edema. Spirometry: Mild restrictive pulmonary defect Laboratory Testing: Recent Results (from the past 336 hour(s)) POCT hCG, urine Collection Time: 02/01/23 10:50 AM Result Value Ref Range HCG, ur, POC Negative Negative Lot Number [id number] QC Backgroud Clear Acceptable QC Control Line Acceptable Urinalysis reflex to microscopic and culture Urine Collection Time: 02/01/23 10:52 AM Specimen: Urine Result Value Ref Range Color, ur Yellow Yellow Clarity, ur Cloudy (A) Clear Specific gravity, ur 1.025 1.003 - 1.030 pH, urine 5.0 Protein, ur ql Negative Negative Glucose, ur ql Negative Negative Ketones, ur Negative Negative Bilirubin, ur Negative Negative Blood, ur Negative Negative Urobilinogen, ur <2.0 <2.0 mg/dL Nitrite, ur Negative Negative Leukocyte esterase, ur Negative Negative UA reflex comment Reflex to microscopic UA will be performed. Urinalysis, microscopic only Collection Time: 02/01/23 10:52 AM Result Value Ref Range WBC, ur 0-5 0 - 5 /HPF RBC, ur 0-2 0 - 2 /HPF Epithelial cells, squamous, ur 11-20 (A) 0 - 5 /HPF Bacteria, ur Trace (A) Culture Reflex Comment Reflex conditions for urine culture (WBC >10) not met. CBC with auto differential Collection Time: 02/01/23 11:01 AM Result Value Ref Range WBC 11.5 (H) 3.8 - 9.9 K/cumm Hgb 13.0 11.9 - 15.5 g/dL Hct 40.3 35.6 - 45.5 % Plt 350 150 - 400 K/cumm MPV 9.8 9.1 - 12.3 fL RBC 4.49 3.90 - 5.20 M/cumm MCV 89.8 81.3 - 96.4 fL MCH 29.0 27.1 - 33.3 pg MCHC 32.3 32.3 - 35.7 g/dL RDW CV 14.0 11.1 - 14.9 % RDW SD 46.5 35.7 - 48.1 fL NRBC abs 0.00 0.00 - 0.01 K/cumm Comprehensive metabolic panel Collection Time: 02/01/23 11:01 AM Result Value Ref Range Sodium 140 135 - 145 mmol/L Potassium, pl 4.2 3.3 - 4.9 mmol/L Chloride 106 97 - 110 mmol/L CO2 24 22 - 32 mmol/L Anion gap 10 2 - 15 mmol/L BUN 17 6 - 25 mg/dL Creatinine 0.70 0.60 - 1.10 mg/dL Glucose 94 70 - 199 mg/dL Calcium 9.2 8.5 - 10.3 mg/dL Bilirubin, total 0.2 0.1 - 1.2 mg/dL Protein, pl 7.6 6.5 - 8.5 g/dL Albumin 4.4 3.5 - 5.0 g/dL Alk phos 103 40 - 130 Units/L ALT 18 7 - 45 Units/L AST 14 10 - 45 Units/L Lipase Collection Time: 02/01/23 11:01 AM Result Value Ref Range Lipase 15 10 - 99 Units/L Differential, auto Collection Time: 02/01/23 11:01 AM Result Value Ref Range Neutrophil abs 8.2 (H) 1.5 - 6.5 K/cumm Imm gran abs 0.0 0.0 - 0.1 K/cumm Lymphocyte abs 2.7 0.8 - 3.3 K/cumm Monocyte abs 0.6 0.2 - 0.8 K/cumm Eosinophil abs 0.0 0.0 - 0.5 K/cumm Basophil abs 0.0 0.0 - 0.1 K/cumm Neutrophil pct 71.1 % Imm gran pct 0.3 % Lymphocyte pct 23.2 % Monocyte pct 5.0 % Eosinophil pct 0.2 % Basophil pct 0.2 % eGFR Collection Time: 02/01/23 11:01 AM Result Value Ref Range eGFR 119 mL/min/1.73 m2 C. difficile testing Stool Collection Time: 02/01/23 11:54 AM Specimen: Stool Result Value Ref Range C. diff result Negative, DNA Negative, DNA C. diff interp Negative for toxigenic Clostridioides (Clostridium) difficile. Analysis performed by detection of gene(s) encoding C. difficile toxin(s). The nucleic acid detection assay used is cleared by the [place] Food and Drug administration and its performance characteristics have been verified by the performing laboratory. Stool culture Stool Rectum Collection Time: 02/01/23 11:54 AM Specimen: Rectum; Stool Result Value Ref Range Direct Specimen Exam Shiga Toxin Testing: Antigen detection assay for Shiga-toxin NEGATIVE for Shiga Toxin 1 and Shiga Toxin 2. Report Final Report: No growth of enteric bacterial pathogens Pulmonary Function Test - Collection Time: 02/02/23 8:54 AM Result Value Ref Range FVC PRE 3.23 L FVC %PRE PRED 76 % FVC POST 3.38 L FVC %POST PRED 80 % FEV1 PRE 2.86 L FEV1 %PRE PRED 81 % FEV1 POST 3.11 L FEV1 %POST PRED 88 % FEV1/FVC PRE 88.6 % FEV1/FVC POST 92.0 % DLCO PRE 23.5 ml/min/mmHg DLCO %PRE PRED 99 % Impression and Recommendations: (J32.9) Chronic sinusitis, unspecified location (primary encounter diagnosis) (J30.9) Allergic rhinitis, unspecified seasonality, unspecified trigger Patient endorses recurrent symptoms of nasal congestion and post nasal drip. Her most recent CT head is suggestive of sinus mucus retention cyst and thickening of the sphenoid sinus. Given chronicityof symptoms, recommend ENT evaluation. Additionally, would recommend restarting her immunotherapy along with previously prescribed montelukast and flonase. No orders of the defined types were placed in this encounter. Follow up: Return in about 1 year (around 02/09/2024) for Recheck, Next scheduled follow up. Dusty José [facility] [ This note was dictated using voice-recognition software, and supervisor cigar processing errors may be present.] Cosigned by Hortencia Rivera MD PhD at 02/08/2023 5:02 PM CASE FINISHER FINISHER FINISHER Associated attestation - Hortencia Rivera MD PhD - 02/08/2023 5:02 PM CASE FINISHER I have seen and examined the patient. I agree with the findings and plan of care as documented in the resident/fellow's note, as discussed with the resident/fellow, and with the following modifications: The patient was asked to resume immunotherapy in the currently stopped allergy and asthma medications. Immunotherapy was discontinued for a test. To assess if there was any association with the reported increased congestion on injection days. None of the symptoms resolved after discontinuing immunotherapy and for the terminologist control of the patient's allergies and asthma, immunotherapy resumption is recommended. Additionally pulmonary function test would be repeated after she has been on her asthma controller therapy for 2-3 months to assess whether the limited restriction noticed is a result of the symptomatic illness during the time of the test or is her baseline lung capacity. . My total encounter time on 02/08/2023 was 30 minutes which was spent in the activities documented in the note. This includes time spent prior to the visit and after the visit in direct care of the patient. This time does not include time spent in any separately reportable services. documented in this encounter Plan of Treatment [...] Diagnoses Diagnosis Chronic sinusitis, unspecified location- Primary Allergic rhinitis, unspecified seasonality, unspecified trigger documented in this encounter Care Teams Welder And Fitter Relationship Specialty Start Date End Date Daily Cruz MD PCP - General Family Medicine 03/04/21 documented as of this encounter
--- OUTSIDE RECORDS SUMMARY | 2024-02-21 19:34 | XMS_ITS | Encounter Summary ---
Author Organization [facility] Healthcare Address [address] [place] [address] Care Team Providers Care Customer Care Representative Name Role Phone Daily Cruz MD Primary Care Provider [phone] [phone] Reason for Referral * MRI/CAT/PET Scan (Routine) - Authorized Specialty Diagnoses / Procedures Referred By Contac t Referred To Contact Radiology Diagnoses Liver mass Procedures MRI Abdomen Liver W WO Contrast Daily Cruz MD [facility] [facility] [address] [place] [address] Phone: tel: fax: [address] [address] Referral ID Status Reason Start Date Expiration Date V isits Requested Visits Authorized [id number] Authorized 05/12/2023 06/10/2024 1 1 Reason for Visit * Reason Comments Weight Loss Test Results Encounter Details Date Type Department Care Team (Late st Contact Info) Description 05/12/2023 10:30 AM CDT Telemedicine [facility] Medical [facility] [place] [address] [address] Daily Cruz MD [address] [facility] [address] [place] [address] Liver mass (Primary Dx); Morbid obesity with BMI of [...] on file 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[employer] Gender Identity Female 03/02/2020 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 * Magnetic Resonance Imaging (AfterCare(R) Instructions(ER/ED)) (Austrian) documented in this encounter Ordered Prescriptions Prescription Sig Dispense Quantity Refills Last Filled Start Date End Date phentermine (ADIPEX-P) 37.5 mg tabletIndications: Morbid obesity with BMI of 40.0-44.9, adult (HCC) Take 1 tablet (37.5 mg total) by mouth daily before breakfast 30 tablet 2 05/12/2023 4 documented in this encounter Progress Notes * Daily Cruz MD - 05/12/2023 10:30 AM CDT Images from the original note were not included. Patient ID: Jud Crocker is a 32 y.o. female. Visit Date: 05/12/2023 This was a telemedicine visit with Jud Crocker alone which took place via real-time video connection. During the visit, I was located at home and the patient was located at work in the state [facility]. The patient visit started at 10:32 and ended at 10:48. I have explained the option of participating in a telemedicine visit to the patient. After being given an opportunity to ask questions about and discuss this type of visit, the patient verbally consented to proceeding with the telemedicine visit. The patient understands that this service replaces an office visit and they may be billed and/or responsible for any applicable copayments. Chief Complaint fatigue HPI HPI Has stopped all her meds. Since then has noticed the headaches really only occur mostly around her menses or increased stress C/o fatigue Current Outpatient Medications: albuterol 2.5 mg /3 mL (0.083 %) nebulizer solution, Take 3 mL (2.5 mg total) by nebulization every4 (four) hours as needed for wheezing, Disp: 180 mL, Rfl: 0 albuterol HFA (PROVENTIL HFA,VENTOLIN HFA,PROAIR HFA) 90 mcg/actuation inhaler, Inhale 2 puffs every 4 (four) hours as needed for wheezing, Disp: 6.7 g, Rfl: 0 phentermine (ADIPEX-P) 37.5 mg tablet, Take 1 tablet (37.5 mg total) by mouth daily before breakfast, Disp: 30 tablet, Rfl: 2 Review of Systems Constitutional: Negative [...] Ht 170.2 cm (5' 7 ) Wt 117.9 kg (260 lb) BMI 40.72 kg/m?? Body mass index is 40.72 kg/m??. Physical Exam Constitutional: Appearance: Normal appearance. HENT: Head: Normocephalic and atraumatic. Nose: Nose normal. Eyes: Extraocular Movements: Extraocular movements intact. Conjunctiva/sclera: Conjunctivae normal. Pulmonary: Effort: Pulmonary effort is normal. Musculoskeletal: Cervical back: Normal range of motion. Neurological: Mental Status: She is alert and oriented to person, place, and time. Psychiatric: Mood and Affect: Mood normal. Behavior: Behavior normal. Component Ref Range & Units EBV VCA IgM U/mL <36.00 Comment: U/mL Interpretation ---- <36.00 Negative 36.00-43.99 Equivocal >43.99 Positive EBV VCA IgG U/mL 178.00 High Comment: U/mL Interpretation ---- <18.00 Negative 18.00-21.99 Equivocal >21.99 Positive EBV nuclear Ab U/mL 437.00 High Comment: U/mL Interpretation ---- <18.00 Negative 18.00-21.99 Equivocal >21.99 Positive EBV Ab interp Comment: Suggestive of a past Loan-Moe virus infection. In infants, a similar pattern may occur as a result of passive maternal transfer of antibody. Resulting Agency [employer] Narrative Performed by: [employer] FASTING:YES FASTING: YES Component Ref Range & Units 1 mo ago 1 yr ago Vitamin D 25-OH 30 - 100 ng/mL 21 Low Diagnoses and all orders for this visit: Liver mass (Primary) - MRI Abdomen Liver W WO Contrast; Future Morbid obesity with BMI of 40.0-44.9, adult (HCC) - phentermine (ADIPEX-P) 37.5 mg tablet; Take 1 tablet (37.5 mg total) by mouth daily before breakfast Daily Cruz MD documented in this encounter Plan of Treatment Scheduled Orders Name Type Priority Associated Diagnoses Orde r Schedule MRI Abdomen Liver W WO Contrast Imaging Schedule Routine, Read Routine (OP Routine) Liver mass Expected: 05/12/2023, Expires: 05/11/2024 documented as of this encounter Goals Goal [...] as of this encounter Visit Diagnoses Diagnosis Liver mass- Primary Unspecified disorder of liver Morbid obesity with BMI of 40.0-44.9, adult (HCC) documented in this encounter Discontinued Medications Medication Sig Discontinue Reason Start Date End Da te sodium, potassium & mag sulfates (SUPREP BOWEL KIT) 17.5-3.13-1.6 gram recon soln MIX 1 BOTTLE WITH WATER, TAKE AT 4PM THE DAY BEFORE PROCEDURE. DRINK 2ND BOTTLE 6 HRS BEFORE ARRIVAL 12/29/2022 05/12/2023 dexAMETHasone (DECADRON) 1 mg tablet take 1 mg at 11pm and go to the lab the next morning at 8am to have your blood drawn. Therapy completed 02/22/2023 05/12/2023 documented as of this encounter Care Teams Customer Care Representative Relationship Specialty Start Date End Date Daily Cruz MD PCP - General Family Medicine 03/04/21 documented as of this encounter
--- OUTSIDE RECORDS SUMMARY | 2024-02-21 19:34 | XMS_ITS | Encounter Summary ---
Author Organization [facility] Healthcare Address [address] [place] [address] Care Team Providers Care Dog Breeder Name Role Phone Daily Cruz MD Primary Care Provider [phone] Reason for Visit * Reason Comments Abdominal Pain Diarrhea Encounter Details Date Type Department Care Team ([facility] Contact Info) Description 02/01/2023 11:02 AM [facility] - 02/01/2023 3:07 PM [facility] Emergency [facility] Emergency Department [address] [place] [address] Gerald Easton MD [address] [place] [address] [place] [address] Abdominal pain (Primary Dx); Hemangioma of intra-abdominal structure Discharge Disposition: Discharge to home or self [...] on file Legal Sex Female 3:37 PM OPERATIONS RESEARCH ANALYST Gender Identity Female 03/02/2020 4:27 PM OPERATIONS RESEARCH ANALYST Sexual Orientation Straight 07/10/2019 11 :13 PM CDT documented as of this encounter Last Filed Vital Signs Vital Sign Reading Time Taken Comments Blood Pressure 114/82 02/01/2023 1:45 PM OPERATIONS RESEARCH ANALYST Pulse 58 02/01/2023 1:45 PM OPERATIONS RESEARCH ANALYST Temperature 36.7 ??C (98.1 ??F) 02/01/2023 1 0:42 AM OPERATIONS RESEARCH ANALYST Respiratory Rate 16 02/01/2023 1:45 PM OPERATIONS RESEARCH ANALYST Oxygen Saturation 100% 02/01/2023 1:45 PM OPERATIONS RESEARCH ANALYST Inhaled Oxygen Concentration - - Weight 113.9 kg (251 lb 1.7 oz) 023 10:42 AM OPERATIONS RESEARCH ANALYST Height 170.2 cm (5' 7 ) 02/01/2023 10:4 2 AM OPERATIONS RESEARCH ANALYST Body Mass Index 39.33 02/01/2023 10:42 AM OPERATIONS RESEARCH ANALYST documented in this encounter Discharge Instructions * Discharge Instructions* Gerald Easton MD - 02/01/2023 1:35 PM OPERATIONS RESEARCH ANALYST Please follow up with your primary care physician, as soon as possible and try your best to make anappointment in no less than 7 days. Please take your medications, as prescribed. Please drink plenty of water or and electrolyte solution. Please return to the emergency department for worsening of your symptoms or any new problems which may arise. It is mandatory that you must follow-up, as recommended. You have received emergency care only at your visit today. This is not a substitute for ongoing care, further evaluation and treatment and therefore follow-up as directed is not optional but mandatory. You MUST follow up for further evaluation of all incidental abnormal radiographic and laboratory findings. Have your physician obtain records from this visit and address all the incidental abnormal findings. This may include final results of lab testing, cultures and final x-ray reports, which may not have been available during the time of the visit. Return immediately for any new symptoms, worsening of symptoms, or persistent symptoms. We are open05/09 and will take care of you. ATIONS RESEARCH ANALYST * Attachments The following attachments cannot be sent through Care Everywhere. * Gastroenteritis (AfterCare(R) Instructions(ER/ED)) (Ethiopian) documented in this encounter Medications at Time of Discharge azithromycin (ZITHROMAX) 250 mg tablet Take 2 tablets (500 mg total) by mouth daily for 1 day, THEN 1 tablet (250 mg total) daily for 4 days. 6 tablet 02/01/2023 3 acetaminophen-aspir in-caffeine (EXCEDRIN MIGRAINE) 250-250-65 mg per tablet Take 1 tablet by mouth every 6 (six) hours as needed 4 albuterol HFA (PROVENTIL HFA,VENTOLIN HFA,PROAIR HFA) 90 mcg/actuation inhalerIndications: Acute bronchitis due to other specified organisms Inhale 2 puffs 4 (four) times a day for 5 days Use only as needed after those 5 days 6.7 each 1 07/21/2022 4 bumetanide (BUMEX) 1 mg tablet Take 1 tablet (1 mg total) by mouth daily 4 cholecalciferol (VITAMIN D-3) 5,000 unit tablet Take 0.2 tablets (1,000 Units total) by mouth daily 4 cyclobenzaprine (FLEXERIL) 10 mg tablet 09/09/2022 4 dicyclomine (BENTYL) 20 mg tablet Take 1 tablet (20 mg total) by mouth 2 (two) times a day 20 tablet 02/01/2023 4 ergocalciferol, vitamin D2, 50 mcg (2,000 unit) tablet Take 2 tablets by mouth daily 5,000 4 famotidine (PEPCID) 40 mg tabletIndications:G astroesophageal reflux disease without esophagitis TAKE 1 TABLET BY MOUTH EVERY DAY 30 tablet 3 01/20/2023 4 fexofenadine (ARIANNA) 180 mg tabletIndications:N on-seasonal allergic rhinitis due to fungal spores Take 1 tablet (180 mg total) by mouth 2 (two) times a day 180 tablet 3 07/13/2022 4 FLUoxetine (PROzac) 40 mg capsuleIndications: Anxiety and depression Take 1 capsule (40 mg total) by mouth daily 30 capsule 5 12/12/2022 4 fluticasone propionate (FLONASE) 50 mcg/actuation nasal sprayIndications:Re active airway disease without asthma,Allergic reaction, initial encounter Administer 2 sprays into each nostril daily 48 mL 1 02/25/2022 4 hydrocortisone 2.5 % ointmentIndications :Rash Apply topically 2 (two) times a day 30 g 03/02/2022 4 ibuprofen (ADVIL,MOTRIN) 800 mg tabletIndications:A cute bilateral low back pain without sciatica Take 1 tablet (800 mg total) by mouth 3 (three) times a day 90 tablet 09/27/2021 4 inhalational spacing device (Aerochamber Plus Z Stat) spacerIndications:M oderate persistent asthma with acute exacerbation 1 unit marking on U-100 syringe 2 (two) times a day 1 each 01/16/2023 4 loperamide (IMODIUM) 2 mg capsule Take 1 capsule (2 mg total) by mouth 4 (four) times a day as needed for diarrhea 12 capsule 02/01/2023 4 magnesium oxide 400 mg magnesium capsule Take 400 mg by mouth daily 4 montelukast (SINGULAIR) 10 mg tabletIndications:R eactive airway disease without asthma,Allergic reaction, initial encounter TAKE 1 TABLET BY MOUTH EVERY DAY AT NIGHT 90 tablet 11/10/2022 4 nystatin 100,000 unit/mL suspension Take 5 mL (500,000 Units total) by mouth as needed 07/15/2022 4 omeprazole (PriLOSEC) 20 mg capsule Take 1 capsule (20 mg total) by mouth 2 (two) times a day before breakfast and dinner 60 capsule 3 01/03/2023 4 ondansetron ODT (ZOFRAN-ODT) 4 mg disintegrating tablet Take 1 tablet (4 mg total) by mouth every 8 (eight) hours as needed for nausea or vomiting 20 tablet 02/01/2023 01/16/202 4 phentermine (ADIPEX-P) 37.5 mg tabletIndications:M orbid obesity with BMI of 40.0-44.9, adult (HCC) Take 1 tablet (37.5 mg total) by mouth daily before breakfast 30 tablet 2 08/17/2022 4 POTASSIUM CHLORIDE ORAL Take by mouth daily 4 rimegepant (Nurtec ODT) tablet,disintegrati ngIndications:Migra ine,Migraine Prevention Take 1 tablet (75 mg total) by mouth as needed (take every other day PRN) 16 tablet 2 12/15/2022 4 sodium, potassium & mag sulfates (SUPREP BOWEL KIT) 17.5-3.13-1.6 gram recon soln MIX 1 BOTTLE WITH WATER, TAKE AT 4PM THE DAY BEFORE PROCEDURE. DRINK 2ND BOTTLE 6 HRS BEFORE ARRIVAL 12/29/2022 4 triamcinolone (KENALOG) 0.1 % creamIndications:Al lergic contact dermatitis, unspecified trigger Apply topically 2 (two) times a day as needed for rash Do not use on the face or in the groin 454 g 2 06/25/2021 4 documented as of this encounter Ordered Prescriptions Prescription Sig Dispense Quantity Refills Last Filled Start Date End Date azithromycin (ZITHROMAX) 250 mg tablet Take 2 tablets (500 mg total) by mouth daily for 1 day, THEN 1 tablet (250 mg total) daily for 4 days. 6 tablet 02/01/2023 3 loperamide (IMODIUM) 2 mg capsule Take 1 capsule (2 mg total) by mouth 4 (four) times a day as needed for diarrhea 12 capsule 02/01/2023 4 dicyclomine (BENTYL) 20 mg tablet Take 1 tablet (20 mg total) by mouth 2 (two) times a day 20 tablet 02/01/2023 4 ondansetron ODT (ZOFRAN-ODT) 4 mg disintegrating tablet Take 1 tablet (4 mg total) by mouth every 8 (eight) hours as needed for nausea or vomiting 20 tablet 02/01/2023 4 documented in this encounter Discharge Disposition Disposition Code Departure Means Destination Comment s Discharge to home or self care documented in this encounter ED Notes * Gerald Easton MD - 02/01/2023 11:25 AM CST Chief Complaint Patient presents with Abdominal Pain Diarrhea HPI JUD CROCKER is a pleasant 32 y.o. female with past medical history of renal colic who presents today with abdominal pain. Associated with nausea, diarrhea x 6 days. Diarrhea has been greasy for the past few days. She spent the entire night on the bathroom the past few days. No vomiting. Shehas had generalized abdominal cramps for the past few days as well. Denies any new abx. No abdominal surgeries. Past Medical History: Diagnosis Date ADHD (attention deficit hyperactivity disorder) Anxiety Arthritis Asthma Brain concussion 2010, 2009 Chronic bronchitis (HCC) Depression Gastric reflux GERD (gastroesophageal reflux disease) PRN tums IIH (idiopathic intracranial hypertension) Pseudotumor cerebri. reports last spinal tap 2017. 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 on Bumex Memory loss Migraines follows with PCP. reports improved somewhat with fioricet started ~2 weeks ago Motion sickness Obesity Peptic ulceration Reports remote history. PRN tums Pneumonia 12/2019 PONV (postoperative nausea and vomiting) premedicated and scopolamine patch Reactive airway disease PRN albuterol and symbicort, well controlled. Reports albuterol use with URI. Seasonal allergies Seizures (HCC) off medication since 2018 with no further seizure activity, EEG negative SOB (shortness of breath) Past Surgical History: Procedure Laterality Date ABDOMINAL [...] control/protection: I.U.D. Alcohol Use: Not At Risk (01/03/2023) AUDIT-C Frequency of Alcohol Consumption: Monthly or less Average Number of Drinks: Patient does not drink Frequency of Binge Drinking: Never Current Facility-Administered Medications: sodium chloride 0.9% bolus 1,000 mL, 1,000 mL, intravenous, Once, Held at 02/01/23 1355 Current Outpatient Medications: ekdfamfthybol-ufkwghc-gdwawcxv (EXCEDRIN MIGRAINE) 250-250-65 mg per tablet albuterol HFA (PROVENTIL HFA,VENTOLIN HFA,PROAIR HFA) 90 mcg/actuation inhaler azithromycin (ZITHROMAX) 250 mg tablet bumetanide (BUMEX) 1 mg tablet cholecalciferol (VITAMIN D-3) 5,000 unit tablet cyclobenzaprine (FLEXERIL) 10 mg tablet dicyclomine (BENTYL) 20 mg tablet ergocalciferol, vitamin D2, 50 mcg (2,000 unit) tablet famotidine (PEPCID) 40 mg tablet fexofenadine (ARIANNA) 180 mg tablet FLUoxetine (PROzac) 40 mg capsule fluticasone propionate (FLONASE) 50 mcg/actuation nasal spray hydrocortisone 2.5 % ointment ibuprofen (ADVIL,MOTRIN) 800 mg tablet inhalational spacing device (Aerochamber Plus Z Stat) spacer loperamide (IMODIUM) 2 mg capsule magnesium oxide 400 mg magnesium capsule montelukast (SINGULAIR) 10 mg tablet nystatin 100,000 unit/mL suspension omeprazole (PriLOSEC) 20 mg capsule ondansetron ODT (ZOFRAN-ODT) 4 mg disintegrating tablet phentermine (ADIPEX-P) 37.5 mg tablet POTASSIUM CHLORIDE ORAL rimegepant (Nurtec ODT) tablet,disintegrating triamcinolone (KENALOG) 0.1 % cream Review of Systems Review of Systems All systems reviewed and are neg or non contributory for this patients presentation today other than as stated in the HPI . Physical Exam ED Triage Vitals [02/01/23 1042] Temp Pulse Resp BP SpO2 36.7 ??C (98.1 ??F) 68 20 120/83 100 % Temp src Heart Rate Source Patient Position BP Location FiO2 (%) Oral -- -- -- -- Height Height Method Weight Weight Method 1.702 m (5' 7 ) Stated 113.9 kg (251 lb 1.7 oz) Standing scale Physical Exam Vitals and nursing note reviewed. Constitutional: General: She is not in acute distress. Appearance: Normal appearance. She is well-developed. She is not ill-appearing or toxic-appearing. HENT: Head: Normocephalic and atraumatic. Eyes: Conjunctiva/sclera: Conjunctivae normal. Cardiovascular: Rate and Rhythm: Normal rate and regular rhythm. Heart sounds: Normal heart sounds. No murmur heard. Pulmonary: Effort: Pulmonary effort is normal. No respiratory distress. Breath sounds: Normal breath sounds. No wheezing, rhonchi or rales. Abdominal: General: There is no distension. Palpations: Abdomen is soft. Tenderness: There is abdominal tenderness in the epigastric area, periumbilical area and left upperquadrant. There is no guarding or rebound. Musculoskeletal: General: Normal range of motion. Cervical back: Normal range of motion. Skin: General: Skin is warm and dry. Capillary Refill: Capillary refill takes less than 2 seconds. Neurological: General: No focal deficit present. Mental Status: She is alert and oriented to person, place, and time. Mental status is at baseline. Procedures MDM Labs Reviewed URINALYSIS AND REFLEX TO MICROSCOPIC AND CULTURE - Abnormal Result Value Color, ur Yellow Clarity, ur Cloudy (*) Specific gravity, ur 1.025 pH, urine 5.0 Protein, ur ql Negative Glucose, ur ql Negative Ketones, ur Negative Bilirubin, ur Negative Blood, ur Negative Urobilinogen, ur <2.0 Nitrite, ur Negative Leukocyte esterase, ur Negative UA reflex comment Reflex to microscopic UA will be performed. CBC WITH AUTO DIFFERENTIAL - Abnormal WBC 11.5 (*) Hgb 13.0 Hct 40.3 Plt 350 MPV 9.8 RBC 4.49 MCV 89.8 MCH 29.0 MCHC 32.3 RDW CV 14.0 RDW SD 46.5 NRBC abs 0.00 DIFFERENTIAL AUTO - Abnormal Neutrophil abs 8.2 (*) Imm gran abs 0.0 Lymphocyte abs 2.7 Monocyte abs 0.6 Eosinophil abs 0.0 Basophil abs 0.0 Neutrophil pct 71.1 Imm gran pct 0.3 Lymphocyte pct 23.2 Monocyte pct 5.0 Eosinophil pct 0.2 Basophil pct 0.2 URINALYSIS, MICROSCOPIC ONLY - Abnormal WBC, ur 0-5 RBC, ur 0-2 Epithelial cells, squamous, ur 11-20 (*) Bacteria, ur Trace (*) Culture Reflex Comment Value: Reflex conditions for urine culture (WBC >10) not met. POCT HCG, URINE - Normal HCG, ur, POC Negative Lot Number [id number] QC Backgroud Clear Acceptable QC Control Line Acceptable C. DIFFICILE TESTING C. diff result Negative, DNA C. diff interp Value: Negative for toxigenic Clostridioides (Clostridium) difficile. Analysis performed by detection of gene(s) encoding C. difficile toxin(s). The nucleic acid detection assay used is cleared by the [place] Food and Drug administration and its performance characteristics have been verified by the performing laboratory. STOOL CULTURE COMPREHENSIVE METABOLIC PANEL Sodium 140 Potassium, pl 4.2 Chloride 106 CO2 24 Anion gap 10 BUN 17 Creatinine 0.70 Glucose 94 Calcium 9.2 Bilirubin, total 0.2 Protein, pl 7.6 Albumin 4.4 Alk phos 103 ALT 18 AST 14 LIPASE Lipase [address] Abdomen Pelvis W Contrast Final Result BP 114/82 Pulse 58 Temp 36.7 ??C (98.1 ??F) (Oral) Resp 16 Ht 170.2 cm (5' 7 ) Wt 113.9 kg (251 lb 1.7 oz) SpO2 100% BMI 39.33 kg/m?? MDM Medical records reviewed. Vitals on arrival show no acute process. ED Course as of 02/01/23 1450 Time: 02/01 1324 Comment: CBC shows mild leukocytosis to 11. CMP is unremarkable. UA is unremarkable. C diff is negative. By: Gerald Easton MD Time: 02/01 1326 Value: CT Abdomen Pelvis W Contrast Comment: 1. Thickening of a decompressed rectum, likely due to under distension. No gross pericolonic stranding to suggest colitis. No bowel obstruction. 2. Indeterminate 7 mm hyperenhancing liver mass. This likely represents a flash filling hemangioma.A follow-up nonemergent outpatient liver protocol MRI may be performed for confirmation. 3. Additional chronic findings as above. By: Gerald Easton MD Time: 02/01 1326 Comment: IV fluids, zofran, morphine, and pepcid administered. By: Gerald Easton MD Pt feels improved and will be discharged with plan to f/u with pcp. Return precautions given. Vitals stable on discharge. Clinical Impression: Abdominal pain Hemangioma of intra-abdominal structure Gerald Easton MD 02/01/23 1451 ATIONS RESEARCH ANALYST * Veronika Persaud RN - 02/01/2023 10:39 AM CST Patient presented to the ED with worsening abdominal pain & explosive diarrhea over the last 3 days. +nausea but has not vomited. States that she was unable to sleep due to amount of abdominal pain & gas. Patient states that she was having somewhat of a white-santo color stool 2 days ago but it is not more of an orange- rust color now. ATIONS RESEARCH ANALYST ATIONS RESEARCH ANALYST documented in this encounter Plan of [...] Procedure Name Priority Date/Time Associated Diagnosis Comments CT ABDOMEN PELVIS W CONTRAST ED 02/01/2023 12:08 PM OPERATIONS RESEARCH ANALYST C. DIFFICILE TESTING STAT 02/01/2023 11:54 AM OPERATIONS RESEARCH ANALYST STOOL CULTURE Routine 02/01/2023 11:54 AM OPERATIONS RESEARCH ANALYST EGFR STAT 02/01/2023 11:01 AM OPERATIONS RESEARCH ANALYST DIFFERENTIAL AUTO STAT 02/01/2023 11: 01 AM OPERATIONS RESEARCH ANALYST CBC WITH AUTO DIFFERENTIAL STAT 02/01/2023 11:01 AM OPERATIONS RESEARCH ANALYST LIPASE STAT 02/01/2023 11:01 AM OPERATIONS RESEARCH ANALYST COMPREHENSIVE METABOLIC PANEL STAT 02/01/2023 11:01 AM OPERATIONS RESEARCH ANALYST URINALYSIS AND REFLEX TO MICROSCOPIC AND CULTURE STAT 02/01/2023 10:52 AM OPERATIONS RESEARCH ANALYST URINALYSIS, MICROSCOPIC ONLY STAT 02/01/2023 10:52 AM OPERATIONS RESEARCH ANALYST POCT HCG, URINE Routine 02/01/2023 10:50 AM OPERATIONS RESEARCH ANALYST documented in this encounter Results * CT Abdomen Pelvis W Contrast (02/01/2023 12:08 PM OPERATIONS RESEARCH ANALYST) Anatomical Region Laterality Modality Body N/A Computed Tomogra phy 02/01/2023 12:2 7 PM OPERATIONS RESEARCH ANALYST Narrative 02/01/2023 12:38 PM OPERATIONS RESEARCH ANALYST EXAM DESCRIPTION: ?? CT ABDOMEN PELVIS W CONTRAST REASON FOR STUDY: ?? Abdominal pain, acute, nonlocalized ?? worsening abdominal pain diarrhea over the last 3 days. +nausea but has not vomited. States that she was unable to sleep due to amount of abdominal pain . Patient states that she was having somewhat of a white-santo color stool 2 days ?? ago but it is not more of an orange-rust color now. ? TECHNIQUE: CT scan of the abdomen and pelvis performed with intravenous and ?? without ??oral contrast using helical scanning technique with dynamic intravenous contrast injection. Reconstructed coronal and sagittal MPR images reviewed. All images stored on PACS. Automated exposure control was used as a dose optimization technique for this examination. CONTRAST TYPE/DOSE: ?? 100mL of IOVERSOL 350 MG IODINE/ML INTRAVENOUS SYRINGE ?? injected via ?? intravenous COMPARISON: ?? 10/22/2021 REFERENCE: Per ACR white paper recommendations, unless otherwise specified no follow-up imaging is recommended for incidental renal and adrenal lesions per consensus recommendations based on imaging criteria. Further lab evaluation could be pursued based on clinical findings. FINDINGS: LOWER CHEST: ?? Minimal left basilar ground-glass, likely atelectasis. LIVER: ?? The liver is normal in size. ?? A 7 mm hyperenhancing mass within segment 4/5 of the liver was likely present but not well appreciated on the prior examination (54). ??This likely represents a flash filling hemangioma. GALLBLADDER: ?? Partially distended. BILE DUCTS: ?? No gross biliary ductal dilatation. SPLEEN: ?? Spleen is normal in size. PANCREAS: ?? Pancreas is normal in size without significant peripancreatic stranding or main ductal dilatation. ?? ADRENALS: ?? Normal. KIDNEYS/URINARY TRACT: ?? The kidneys are normal in size. ??No hydronephrosis or perinephric stranding. ??A 4 mm nonobstructing left renal stone is seen. ??A 3 mm nonobstructing right renal stone is seen. ??Subcentimeter hypoattenuating lesion within the right kidney, too small to further characterize, likely cysts. ?Urinary bladder is partially distended. GI: ?? Thickening of a decompressed rectum, likely due to under distension without substantial pericolonic stranding. ??There is otherwise no colonic wall thickening. ??No evidence of obstruction. ??The appendix is decompressed. ??The terminal ileum appears normal. ??The small bowel appears normal without wall thickening or evidence of obstruction. ??A tiny hiatal hernia is present. PERITONEUM: ?? No free air. ??No ascites is seen. ??Laxity anterior abdominal wall with rectus diastasis small fat containing umbilical hernia. ??There is subcentimeter mesenteric lymph nodes. RETROPERITONEUM: ?? No retroperitoneal or inguinal lymphadenopathy. REPRODUCTIVE: ?? No significant abnormality. VASCULATURE: ?? No abdominal aortic aneurysm. MUSCULOSKELETAL: ?? Bone windows demonstrate no suspicious lytic or sclerotic lesion. ??No acute fracture seen. OTHER: ?? No other abnormality. IMPRESSION: ?? 1. ?? Thickening of a decompressed rectum, likely due to under distension. ??No gross pericolonic stranding to suggest colitis. ??No bowel obstruction. 2. ?? Indeterminate 7 mm hyperenhancing liver mass. ??This likely represents a flash filling hemangioma. ??A follow-up nonemergent outpatient liver protocol MRI may be performed for confirmation. 3. ?? Additional chronic findings as above. THIS IS AN ELECTRONICALLY VERIFIED FINAL REPORT 02/01/2023 12:38 PM - Electronically signed by ??Iker Stevenson M.D. AG: AG D: ??02/01/2023 12:38 PM T: ??02/01/2023 12:38 PM Report ID: [id number] Reading Location: ??[id number] Procedure Note Iker Stevenson MD - 02/01/2023 EXAM DESCRIPTION: CT ABDOMEN PELVIS W CONTRAST REASON FOR STUDY: Abdominal pain, acute, nonlocalized worsening abdominal pain diarrhea over the last 3 days. +nausea but hasnot vomited. States that she was unable to sleep due to amount of abdominalpain . Patient states that she was having somewhat of a white-santo color stool 2days ago but it is not more of an orange-rust color now. TECHNIQUE: CT scan of the abdomen and pelvis performed with intravenousand without oral contrast using helical scanning technique with dynamic intravenous contrast injection. Reconstructed coronal and sagittal MPRimages reviewed. All images stored on PACS. Automated exposure control was usedas a dose optimization technique for this examination. CONTRAST TYPE/DOSE: 100mL of IOVERSOL 350 MG IODINE/ML INTRAVENOUSSYRINGE injected via intravenous COMPARISON: 10/22/2021 REFERENCE: Per ACR white paper recommendations, unless otherwise specifiedno follow-up imaging is recommended for incidental renal and adrenal lesionsper consensus recommendations based on imaging criteria. Further labevaluation could be pursued based on clinical findings. FINDINGS: LOWER CHEST: Minimal left basilar ground-glass, likely atelectasis. LIVER: The liver is normal in size. A 7 mm hyperenhancing mass within segment 4/5 of the liver was likely present but not well appreciated onthe prior examination (54). This likely represents a flash fillinghemangioma. GALLBLADDER: Partially distended. BILE DUCTS: No gross biliary ductal dilatation. SPLEEN: Spleen is normal in size. PANCREAS: Pancreas is normal in size without significant peripancreatic stranding or main ductal dilatation. ADRENALS: Normal. KIDNEYS/URINARY TRACT: The kidneys are normal in size. Nohydronephrosis or perinephric stranding. A 4 mm nonobstructing left renal stone is seen. A3 mm nonobstructing right renal stone is seen. Subcentimeterhypoattenuating lesion within the right kidney, too small to further characterize, likely cysts. Urinary bladder is partially distended. GI: Thickening of a decompressed rectum, likely due to under distension without substantial pericolonic stranding. There is otherwise no colonicwall thickening. No evidence of obstruction. The appendix is decompressed.The terminal ileum appears normal. The small bowel appears normal withoutwall thickening or evidence of obstruction. A tiny hiatal hernia is present. PERITONEUM: No free air. No ascites is seen. Laxity anterior abdominal wall with rectus diastasis small fat containing umbilical hernia. Thereis subcentimeter mesenteric lymph nodes. RETROPERITONEUM: No retroperitoneal or inguinal lymphadenopathy. REPRODUCTIVE: No significant abnormality. VASCULATURE: No abdominal aortic aneurysm. MUSCULOSKELETAL: Bone windows demonstrate no suspicious lytic orsclerotic lesion. No acute fracture seen. OTHER: No other abnormality. IMPRESSION: 1. Thickening of a decompressed rectum, likely due to under distension.No gross pericolonic stranding to suggest colitis. No bowel obstruction. 2. Indeterminate 7 mm hyperenhancing liver mass. This likely representsa flash filling hemangioma. A follow-up nonemergent outpatient liverprotocol MRI may be performed for confirmation. 3. Additional chronic findings as above. THIS IS AN ELECTRONICALLY VERIFIED FINAL REPORT 02/01/2023 12:38 PM - Electronically signed by Iker Stevenson M.D. AG: AG Report ID: [id number] Reading Location: [place] [address] Gerald Easton MD IMG CT PROCEDURES Final R esult * Stool culture Stool Rectum (02/01/2023 11:54 AM OPERATIONS RESEARCH ANALYST) Direct Specimen Exam Shiga Toxin Testing: Antigen detection assay for Shiga-toxin NEGATIVE for Shiga Toxin 1 and Shiga Toxin 2. ANGELICA Comment:Testing performed by : [facility], [address] [place]., [address] Report Final Report: No growth of enteric bacterial pathogens ANGELICA Comment:Testing performed by : [facility], [address] [place]., [address] Stool (Rectum) 02/01/2023 11 :54 AM OPERATIONS RESEARCH ANALYST 02/01/2023 4:01 PM OPERATIONS RESEARCH ANALYST Narrative ANGELICA - 02/05/2023 7:45 AM OPERATIONS RESEARCH ANALYST Specimen received in a sterile container. Testing performed by [facility] ([phone]). Routine stool cultures include procedures to detect Salmonella, Shigella, Edwardsiella, Aeromonas, Pleisiomonas, Campylobacter, Yersinia, E. coli O157, and Shiga-like toxins. ?? Vibrio is cultured only upon special request. ??If Vibrio is suspected, please call the laboratory at [phone]. Interpretive data was last updated June 20, 2016. Gerald Easton MD LAB MICROBIOLOGY - GENERA L ORDERABLES Final Result ANGELICA [address] [facility] Department [place] [address] * C. difficile testing Stool (02/01/2023 11:54 AM OPERATIONS RESEARCH ANALYST) Pathologist [facility] C. diff result Negative, DNA Negative , DNA ANGELICA VERDUGO Comment: NAP (O27) - presumptive negative Testing performed by: [facility], [address] [place] [address]., [address] C. diff interp Negative for toxigenic Clostridioides (Clostridium) difficile. ??Analysis performed by detection of gene(s) encoding C. difficile toxin(s). ??The nucleic acid detection assay used is cleared by the [place] Food and Drug administration and its performance characteristics have been verified by the performing laboratory. ANGELICA Comment:Testing performed by : [facility], [address] [place] [address]., [address] Stool 02/01/2023 11:5 4 AM OPERATIONS RESEARCH ANALYST 02/01/2023 12:01 PM OPERATIONS RESEARCH ANALYST Gerald Easton MD LAB MICROBIOLOGY - GENERA L ORDERABLES Final Result ANGELICA [address] [facility] Department [place] [address] * eGFR (02/01/2023 11:01 AM OPERATIONS RESEARCH ANALYST) Pathologist [facility] eGFR 119 mL/min/1. 73 m2 ANGELICA VERDUGO Comment: Interpretive Data Reference Interval Normal ?>/= 90 mL/min/1.73m2 Mildly decreased* ? 60 - 89 mL/min/1.73m2 Mildly to moderately decreased ?45 - 59 mL/min/1.73m2 Moderately to severely decreased ??30 - 44 mL/min/1.73m2 Severely decreased ?15 - 29 mL/min/1.73m2 Kidney Failure ?< 15 ??mL/min/1.73m2 *Relative to young adult level Estimated glomerular filtration rate is determined by the 2020 CKD-EPI equation recommended by the National Kid[employer] (A Unifying Approach to GFR Estimation: Recommendations of the NKF-ASK Task Force on Reassessing the Inclusion of Race in Diagnosing Kidney Disease, JASN 2020). The CKD-EPI equation should not be used for patients with unstable renal function and has not been validated in children and those over 70. Current interpretive data was last reviewed 2020. Testing performed by: [address] [address] Blood 02/01/2023 11:0 1 AM OPERATIONS RESEARCH ANALYST 02/01/2023 11:06 AM OPERATIONS RESEARCH ANALYST us Gerald Easton MD LAB BLOOD ORDERABLES Karen prater Result ANGELICA [facility] Department of Laboratories [place], [place] [id number] * (ABNORMAL) Differential, auto (02/01/2023 11:01 AM OPERATIONS RESEARCH ANALYST) Neutrophil abs 8.2(H) 1.5 - 6.5 K/cumm ANGELICA Comment:Testing performed by : [address] [address] Imm gran abs 0.0 0.0 - 0.1 K/cumm ANGELICA Comment:Testing performed by : [address] [address] Lymphocyte abs 2.7 0.8 - 3.3 K/cumm ANGELICA Comment:Testing performed by : [address] [address] Monocyte abs 0.6 0.2 - 0.8 K/cumm ANGELICA Comment:Testing performed by : [address] [address] Eosinophil abs 0.0 0.0 - 0.5 K/cumm ANGELICA Comment:Testing performed by : [address] [address] Basophil abs 0.0 0.0 - 0.1 K/cumm ANGELICA Comment:Testing performed by : [address] [address] Neutrophil pct 71.1 % ANGELICA Comment: Interpretive Data Percent cell count reference ranges are not reported, since discordance with absolute values may lead to misinterpretation of CBC data. Current Interpretive Data was last revised on 2017. Testing performed by: [address] [address] Imm gran pct 0.3 % ANGELICA Comment: Interpretive Data Percent cell count reference ranges are not reported, since discordance with absolute values may lead to misinterpretation of CBC data. Current Interpretive Data was last revised on 2017. Testing performed by: [address] [address] Lymphocyte pct 23.2 % [facility] Comment: Interpretive Data Percent cell count reference ranges are not reported, since discordance with absolute values may lead to misinterpretation of CBC data. Current Interpretive Data was last revised on 2017. Testing performed by: [address] [address] Monocyte pct 5.0 % [facility] Comment: Interpretive Data Percent cell count reference ranges are not reported, since discordance with absolute values may lead to misinterpretation of CBC data. Current Interpretive Data was last revised on 2017. Testing performed by: [address] [address] Eosinophil pct 0.2 % [facility] Comment: Interpretive Data Percent cell count reference ranges are not reported, since discordance with absolute values may lead to misinterpretation of CBC data. Current Interpretive Data was last revised on 2017. Testing performed by: [address] [address] Basophil pct 0.2 % [facility] Comment: Interpretive Data Percent cell count reference ranges are not reported, since discordance with absolute values may lead to misinterpretation of CBC data. Current Interpretive Data was last revised on 2017. Testing performed by: [address] [address] Blood 02/01/2023 11:0 1 AM OPERATIONS RESEARCH ANALYST 02/01/2023 11:06 AM OPERATIONS RESEARCH ANALYST Gerald Easton MD LAB BLOOD ORDERABLES Karen l Result Performing Organization Address City/[facility] Co de Phone Number ANGELICA [address] [address] * Lipase (02/01/2023 11:01 AM OPERATIONS RESEARCH ANALYST) Lipase 15 10 - 99 Units/L ANGELICA Comment:Testing performed by : [address] [address] Blood (Blood, Venous) 02/01/2023 11:01 AM OPERATIONS RESEARCH ANALYST 02/01/2023 11:06 AM OPERATIONS RESEARCH ANALYST Gerald Easton MD LAB BLOOD ORDERABLES Karen l Result Performing Organization Address [facility] de Phone Number [phone] [address] * Comprehensive metabolic panel (02/01/2023 11:01 AM OPERATIONS RESEARCH ANALYST) Pathologist [facility] Sodium 140 135 - 145 mmol/L ANGELICA Comment:Testing performed by : [address] [address] Potassium, pl 4.2 3.3 - 4.9 mmol/L ANGELICA Comment:Testing performed by : [address] [address] Chloride 106 97 - 110 mmol/L ANGELICA Comment:Testing performed by : [address] [address] CO2 24 22 - 32 mmol/L ANGELICA Comment:Testing performed by : [address] [address] Anion gap 10 2 - 15 mmol/L ANGELICA Comment:Testing performed by : [address] [address] BUN 17 6 - 25 mg/dL ANGELICA Comment:Testing performed by : [address] [address] Creatinine 0.70 0.60 - 1.10 mg/dL ANGELICA Comment:Testing performed by : [address] [address] Glucose 94 70 - 199 mg/dL NAGELICA Comment: Interpretive Data Fasting glucose >/= 126 mg/dl is diagnostic for diabetes. ?? Fasting is defined as no caloric intake for at least 8 hours. Fasting glucose between 100 mg/dl to 125 mg/dl is diagnostic of prediabetes. In a patient with classic symptoms of hyperglycemia or hyperglycemic crisis, a random glucose >/= 200 mg/dl is diagnostic for diabetes. In the absence of unequivocal hyperglycemia, results should be confirmed by repeat testing. The classification and Diagnosis of Diabetes Diabetes Care 2021; 46: S19-S40. Current interpretive data was last revised 2022. Testing performed by: [address] [address] Calcium 9.2 8.5 - 10.3 mg/dL ANGELICA Comment:Testing performed by : [address] [address] Bilirubin, total 0.2 0.1 - 1.2 mg/dL ANGELICA Comment:Testing performed by : [address] [address] Protein, pl 7.6 6.5 - 8.5 g/dL ANGELICA Comment:Testing performed by : [address] [address] Albumin 4.4 3.5 - 5.0 g/dL [facility] Comment:Testing performed by : [address] [address] Alk phos 103 40 - 130 Units/L ANGELICA Comment:Testing performed by : [address] [address] ALT 18 7 - 45 Units/L ANGELICA Comment:Testing performed by : [address] [address] AST 14 10 - 45 Units/L ANGELICA Comment:Testing performed by : [address] [address] Blood 02/01/2023 11:0 1 AM OPERATIONS RESEARCH ANALYST 02/01/2023 11:06 AM OPERATIONS RESEARCH ANALYST us Gerald Easton MD LAB BLOOD ORDERABLES Karen josi Result ANGELICA [address] [facility] Department [place] [address] * (ABNORMAL) CBC with auto differential (02/01/2023 11:01 AM OPERATIONS RESEARCH ANALYST) [facility] WBC 11.5(H) 3.8 - 9.9 K/cumm ANGELICA Comment:Testing performed by : [address] [address] Hgb 13.0 11.9 - 15.5 g/dL ANGELICA Comment:Testing performed by : [address] [address] Hct 40.3 35.6 - 45.5 % ANGELICA Comment:Testing performed by : [address] [address] Plt 350 150 - 400 K/cumm ANGELICA Comment:Testing performed by : [address] [address] MPV 9.8 9.1 - 12.3 fL ANGELICA Comment:Testing performed by : [address] [address] RBC 4.49 3.90 - 5.20 M/cumm ANGELICA Comment:Testing performed by : [address] [address] MCV 89.8 81.3 - 96.4 fL ANGELICA Comment:Testing performed by : [address] [address] MCH 29.0 27.1 - 33.3 pg ANGELICA Comment:Testing performed by : [address] [address] MCHC 32.3 32.3 - 35.7 g/dL ANGELICA Comment:Testing performed by : [address] [address] RDW CV 14.0 11.1 - 14.9 % ANGELICA VERDUGO Comment:Testing performed by : [address] [address] RDW SD 46.5 35.7 - 48.1 fL ANGELICA VERDUGO Comment:Testing performed by : [facility], [address] [place] [address]., [address] NRBC abs 0.00 0.00 - 0.01 K/cumm ANGELICA VERDUGO Comment:Testing performed by : [address] [address] Blood (Blood, Venous) 02/01/2023 11:01 AM OPERATIONS RESEARCH ANALYST 02/01/2023 11:06 AM OPERATIONS RESEARCH ANALYST Gerald Easton MD LAB BLOOD ORDERABLES Karen l Result ANGELICA [address] [facility] Department of Laboratories [place], [place] [id number] * (ABNORMAL) Urinalysis, microscopic only (02/01/2023 10:52 AM OPERATIONS RESEARCH ANALYST) WBC, ur 0-5 0 - 5 /HPF ANGELICA Comment:Testing performed by : [address] [address] RBC, ur 0-2 0 - 2 /HPF ANGELICA Comment:Testing performed by : [address] [address] Epithelial cells, squamous, ur 11-20(A) 0 - 5 /HPF ANGELICA Comment:Testing performed by : [address] [address] Bacteria, ur Trace(A) ANGELICA Comment:Testing performed by : [address] [address] Culture Reflex Comment Reflex conditions for urine culture (WBC >10) not met. ANGELICA Comment:Testing performed by : [address] [address] Urine 02/01/2023 10:5 2 AM OPERATIONS RESEARCH ANALYST 02/01/2023 11:06 AM OPERATIONS RESEARCH ANALYST us Gerald Easton MD LAB URINE ORDERABLES Karen prater Result ANGELICA [address] [facility] Department [place] [address] * (ABNORMAL) Urinalysis reflex to microscopic and culture Urine (02/01/2023 10:52 AM OPERATIONS RESEARCH ANALYST) Color, ur Yellow Yellow ANGELICA Comment:Testing performed by : [address] [address] Clarity, ur Cloudy(A) Clear ANGELICA Comment:Testing performed by : [address] [address] Specific gravity, ur 1.025 1.003 - 1.030 ANGELICA VERDUGO Comment:Testing performed by : [address] [address] pH, urine 5.0 ANGELICA Comment: Interpretive Data ? Urine pH is affected by diet, medications, systemic acid-base disturbances, and renal tubular function. ??pH may affect urinary stone formation. ??For example, urine pH below 6.0 may help reduce the tendency for calcium phosphate stones and pH greater than 6.0 may reduce the tendency for uric acid stone formation. [facility] Current Interpretive Data was last revised on 2017 Testing performed by: [address] [address] Protein, ur ql Negative Negative ANGELICA VERDUGO Comment:Testing performed by : [address] [address] Glucose, ur ql Negative Negative ANGELICA VERDUGO Comment:Testing performed by : [address] [address] Ketones, ur Negative Negative ANGELICA VERDUGO Comment:Testing performed by : [address] [address] Bilirubin, ur Negative Negative ANGELICA VERDUGO Comment:Testing performed by : [address] [address] Blood, ur Negative Negative ANGELICA VERDUGO Comment:Testing performed by : [address] [address] Urobilinogen, ur <2.0 <2.0 mg/dL ANGELICA Comment:Testing performed by : [address] [address] Nitrite, ur Negative Negative ANGELICA Comment:Testing performed by : [address] [address] Leukocyte esterase, ur Negative Negative ANGELICA Comment:Testing performed by : [address] [address] UA reflex comment Reflex to microscopic UA will be performed. ANGELICA Comment:Testing performed by : [address], [place]., [address] Urine 02/01/2023 10:5 2 AM OPERATIONS RESEARCH ANALYST 02/01/2023 11:06 AM OPERATIONS RESEARCH ANALYST us Gerald Easton MD LAB MICROBIOLOGY - GENERA L ORDERABLES Final Result Performing Organization Address City/State/[facility] Co de Phone Number ANGELICA [address] [facility] Department [place] [address] * POCT hCG, urine (02/01/2023 10:50 AM OPERATIONS RESEARCH ANALYST) HCG, ur, POC Negative Negative Lot Number [id number] QC Backgroud Clear Acceptable QC Control Line Acceptable Urine 02/01/2023 10:5 0 AM OPERATIONS RESEARCH ANALYST us Gerald Easton MD POINT OF CARE TEST ORDERA BLES Final Result documented in this encounter Visit Diagnoses Diagnosis Abdominal pain- Primary Abdominal pain, unspecified site 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 documented in this encounter Administered Medications Inactive Administered Medications - up to 3 most recent administrations Medication Order MAR Action Action Date Dose Rate Site famotidine (PEPCID) injection 40 mg 40 mg, intravenous, Administer over 2 Minutes, Once, On Mon02/01/23 at 1126, For 1 dose Given 02/01/2023 11:43 AM OPERATIONS RESEARCH ANALYST 40 mg ioversoL (OPTIRAY 350) syringe 100 mL 100 mL, intravenous, Once in imaging, contrast, Starting on Mon02/01/23 at 1154, For 1 dose Contrast Given 02/01/2023 12:08 PM OPERATIONS RESEARCH ANALYST 100 mL morphine injection 4 mg 4 mg, intravenous, Administer over 4 Minutes, Once, On Mon02/01/23 at 1126, For 1 dose Given 02/01/2023 11:43 AM OPERATIONS RESEARCH ANALYST 4 mg ondansetron (ZOFRAN) injection 4 mg 4 mg, intravenous, Administer over 2 Minutes, Once, On Mon02/01/23 at 1126, For 1 dose Given 02/01/2023 11:43 AM OPERATIONS RESEARCH ANALYST 4 mg sodium chloride 0.9% bolus 2,000 mL 2,000 mL, intravenous, at 2,000 mL/hr, Administer over 1 Hours, Once, On Mon02/01/23 at 1126, For 1 dose New Bag 02/01/2023 11:42 AM OPERATIONS RESEARCH ANALYST 2,000 mL 2000 mL/hr documented in this encounter Discontinued Medications Medication Sig Discontinue Reason Start Date End Da te azithromycin (Zithromax Z-Michael) 250 mg tabletIndications:Moderat e persistent asthma with acute exacerbation,Chronic sinusitis, unspecified location Take 2 tabs (500 mg) by mouth today, then 1 tab (250 mg) daily for 4 days. 01/16/2023 02/01/2023 documented as of this encounter Active and Recently Administered Medications Times are shown in OPERATIONS RESEARCH ANALYST. Scheduled Medication Order 01/30/2023 01/31/2023 02/01/2023 famotidine (PEPCID) injection 40 mg (COMPLETED) 40 mg, intravenous, Administer over 2 Minutes, Once, On Mon02/01/23 at 1126, For 1 dose 1143 (Given - Provid er: Yoko Perry RN) morphine injection 4 mg (COMPLETED) 4 mg, intravenous, Administer over 4 Minutes, Once, On Mon02/01/23 at 1126, For 1 dose 1143 (Given - Provid er: Yoko Perry RN) ondansetron (ZOFRAN) injection 4 mg (COMPLETED) 4 mg, intravenous, Administer over 2 Minutes, Once, On Mon02/01/23 at 1126, For 1 dose 1143 (Given - Provid er: Yoko Perry RN) sodium chloride 0.9% bolus 1,000 mL 1,000 mL, intravenous, at 1,000 mL/hr, Administer over 1 Hours, Once, On Mon02/01/23 at 1335, For 1 dose 1355 (Hold - Provide r: Yoko Perry, LEE - Reason: Other - Comment: pt getting second liter now, provider aware) sodium chloride 0.9% bolus 2,000 mL (COMPLETED) 2,000 mL, intravenous, at 2,000 mL/hr, Administer over 1 Hours, Once, On Mon02/01/23 at 1126, For 1 dose 1142 (New Bag - Prov ider: Yoko Perry, LEE)1505 (Stopped - Provider: Mackenzie Soto, LEE) PRN Medication Order 01/30/2023 01/31/2023 02/01/2023 ioversoL (OPTIRAY 350) syringe 100 mL (COMPLETED) 100 mL, intravenous, Once in imaging, contrast, Starting on Mon02/01/23 at 1154, For 1 dose 1208 (Contrast Given - Provider: Rosalee Maher, RT) documented in this encounter Orders Medications Ordered That Gerhard ht Not Have Been Administered Count Last Ordered Date First Ordered Date sodium chloride 0.9% bolus 1,000 mL 2 02/01 IV Count Last Ordered Date First Orde red Date SALINE LOCK IV 1 02/01/2023 documented in this encounter Care Teams Dog Breeder Relationship Specialty Start Date End Date Daily Cruz MD PCP - General Family Medicine 03/04/21 documented as of this encounter
--- OUTSIDE RECORDS SUMMARY | 2024-02-21 19:34 | XMS_ITS | Encounter Summary ---
Author Organization [facility] Healthcare Address [address] [place] [address] Care Team Providers Care Fire Fighters Dispatcher Name Role Phone Daily Cruz MD Primary Care Provider [phone] Encounter Details Date Type Department Care Team (Late st Contact Info) Description 02/03/2023 Documentation [facility] OP Physical Therapy [address] [place] [id number] Mariola Jesus, PT Social History Tobacco Use Types Packs/Day Years [...] on file Legal Sex Female 3:37 PM LANGUAGE INTERPRETER Gender Identity Female 03/02/2020 4:27 PM LANGUAGE INTERPRETER Sexual Orientation Straight 07/10/2019 11 :13 PM CDT documented as of this encounter Progress Notes * Mariola Jesus, PT - 02/03/2023 8:15 AM CST This patient has been discharged from physical therapy services due to lack of compliance with attendance/did not return for additional treatment. Please refer to prior treatment/visit notes for objective findings and goal progress. UAGE INTERPRETER documented in this encounter Plan of Treatment [...] on filedocumented in this encounter Care Teams Fire Fighters Dispatcher Relationship Specialty Start Date End Date Daily Cruz MD PCP - General Family Medicine 03/04/21 documented as of this encounter
--- OUTSIDE RECORDS SUMMARY | 2024-02-21 19:34 | XMS_ITS | Encounter Summary ---
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 Gender Identity Female 03/02/2020 4:27 PM SEWER BUILDER Sexual Orientation Straight 07/10/2019 11 :13 PM CDT documented as of this encounter Last Filed Vital Signs Vital Sign Reading Time Taken Comments Blood Pressure 132/87 05/25/2023 10:04 AM CDT Pulse 74 05/25/2023 10:04 AM CDT Temperature 36.9 ??C (98.4 ??F) 05/25/2023 1 0:04 AM CDT Respiratory Rate 16 05/25/2023 10:0 4 AM CDT Oxygen Saturation 99% 05/25/2023 10: 04 AM CDT Inhaled Oxygen Concentration - - Weight 117.5 kg (259 lb 0.7 oz) 024 10:04 AM CDT Height - - Body Mass Index 40.57 05/12/2023 9:50 AM CDT documented in this encounter Medications at Time [...] as needed for wheezing 6.7 g 02/17/2023 phentermine (ADIPEX-P) 37.5 mg tabletIndication s:Morbid obesity with BMI of 40.0-44.9, adult (HCC) Take 1 tablet (37.5 mg total) by mouth daily before breakfast 30 tablet 2 05/12/2023 documented as of this encounter Discharge Disposition Disposition Code Departure Means Destination Left without being seen documented in this encounter ED Notes * Lacey Sanders RN - 05/25/2023 9:59 AM CDT Pt reports hx of IIH- has had spinal taps in the past. Pt c/o constant squeezing sensation to entire head and back of neck for approx 1 week. Pt states, it almost feels like when I've had a tap before and I lost too much spinal fluid. I have to lie flat and any movement makes me nauseous. Pt reports she has HAs for a few days once she gets her period, started period 1 week ago and GAGNON hasn't gone away since. documented in this encounter Plan of Treatment [...] Procedure Name Priority Date/Time Associated Diagnosis Comments EGFR STAT 05/25/2023 10:16 AM CDT DIFFERENTIAL AUTO STAT 05/25/2023 10: 16 AM CDT CBC WITH AUTO DIFFERENTIAL STAT 05/25/2023 10:16 AM CDT COMPREHENSIVE METABOLIC PANEL STAT 05/25/2023 10:16 AM CDT documented in this encounter Results * eGFR (05/25/2023 10:16 AM CDT) eGFR >90 >=60 mL/min/1. 73 m2 Comment: Interpretive Data Reference Interval Normal ?>/= [...] was last reviewed 2020. Testing performed by: [address] [address] Blood 05/25/2023 10:1 6 AM CDT 05/25/2023 10:20 AM CDT us Lucy Vogt DO LAB BLOOD ORDERABLES Final Resu lt ANGELICA [address] [facility] Department [place] [address] * Differential, auto (05/25/2023 10:16 AM CDT) Neutrophil abs 5.6 1.5 - 6.5 K/cumm Comment:Testing performed by : [address] [address] Imm gran abs 0.0 0.0 - 0.1 K/cumm ANGELICA Comment:Testing performed by : [address] [address] Lymphocyte abs 2.2 0.8 - 3.3 K/cumm ANGELICA Comment:Testing performed by : [address] [address] Monocyte abs 0.4 0.2 - 0.8 K/cumm ANGELICA Comment:Testing performed by : [address] [address] Eosinophil abs 0.1 0.0 - 0.5 K/cumm [facility] Comment:Testing performed by : [address] [address] Basophil abs 0.0 0.0 - 0.1 K/cumm [facility] Comment:Testing performed by : [address] [address] Neutrophil pct 66.5 % [facility] Comment: Interpretive Data Percent cell count reference ranges are not reported, since discordance with absolute values may lead to misinterpretation of CBC data. Current Interpretive Data was last revised on 2017. Testing performed by: [address] [address] Imm gran pct 0.2 % [facility] Comment: Interpretive Data Percent cell count reference ranges are not reported, since discordance with absolute values may lead to misinterpretation of CBC data. Current Interpretive Data was last revised on 2017. Testing performed by: [address] [address] Lymphocyte pct 26.6 % [facility] Comment: Interpretive Data Percent cell count reference ranges are not reported, since discordance with absolute values may lead to misinterpretation of CBC data. Current Interpretive Data was last revised on 2017. Testing performed by: [address] [address] Monocyte pct 5.1 % [facility] Comment: Interpretive Data Percent cell count reference ranges are not reported, since discordance with absolute values may lead to misinterpretation of CBC data. Current Interpretive Data was last revised on 2017. Testing performed by: [address] [address] Eosinophil pct 1.1 % [facility] Comment: Interpretive Data Percent cell count reference ranges are not reported, since discordance with absolute values may lead to misinterpretation of CBC data. Current Interpretive Data was last revised on 2017. Testing performed by: [address] [address] Basophil pct 0.5 % [facility] Comment: Interpretive Data Percent cell count reference ranges are not reported, since discordance with absolute values may lead to misinterpretation of CBC data. Current Interpretive Data was last revised on 2017. Testing performed by: [address] [address] Blood 05/25/2023 10:1 6 AM CDT 05/25/2023 10:20 AM CDT us Lucy Vogt DO LAB BLOOD ORDERABLES Final [facility] [address] [facility] Department [place] [address] * (ABNORMAL) Comprehensive metabolic panel (05/25/2023 10:16 AM CDT) Sodium 140 135 - 145 mmol/L Comment:Testing performed by : [address] [address] Potassium, pl 4.5 3.3 - 4.9 mmol/L ANGELICA Comment:Testing performed by : [address] [address] Chloride 105 97 - 110 mmol/L ANGELICA Comment:Testing performed by : [address] [address] CO2 25 22 - 32 mmol/L ANGELICA Comment:Testing performed by : [address] [address] Anion gap 10 2 - 15 mmol/L ANGELICA Comment:Testing performed by : [address] [address] BUN 16 6 - 25 mg/dL ANGELICA Comment:Testing performed by : [address] [address] Creatinine 0.60 0.60 - 1.10 mg/dL ANGELICA Comment:Testing performed by : [address] [address] Glucose 96 70 - 199 mg/dL ANGELICA Comment: Interpretive Data Fasting glucose >/= 126 [...] classification and Diagnosis of Diabetes Diabetes Care 202; 46: S19-S40. Current interpretive data was last revised 2022. Testing performed by: [address] [address] Calcium 8.0(L) 8.5 - 10.3 mg/dL ANGELICA Comment:Testing performed by : [address] [address] Bilirubin, total 0.3 0.1 - 1.2 mg/dL ANGELICA Comment:Testing performed by : [address] [address] Protein, pl 7.5 6.5 - 8.5 g/dL ANGELICA Comment:Testing performed by : [address] [address] Albumin 4.3 3.5 - 5.0 g/dL ANGELICA Comment:Testing performed by : [address] [address] Alk phos 93 40 - 130 Units/L ANGELICA Comment:Testing performed by : [address] [address] ALT 9 7 - 45 Units/L ANGELICA Comment:Testing performed by : [address] [address] AST 10 10 - 45 Units/L ANGELICA Comment:Testing performed by : [address] [address] Blood 05/25/2023 10:1 6 AM CDT 05/25/2023 10:20 AM CDT us Lucy Vogt DO LAB BLOOD ORDERABLES Final Resu lt ANGELICA [address] [facility] Department [place] [address] * CBC with auto differential (05/25/2023 10:16 AM CDT) [facility] WBC 8.4 3.8 - 9.9 K/cumm Comment:Testing performed by : [address] [address] Hgb 13.6 11.9 - 15.5 g/dL ANGELICA Comment:Testing performed by : [address] [address] Hct 40.0 35.6 - 45.5 % ANGELICA Comment:Testing performed by : [address] [address] Plt 324 150 - 400 K/cumm ANGELICA Comment:Testing performed by : [address] [address] MPV 10.2 9.1 - 12.3 fL ANGELICA Comment:Testing performed by : [address], [address] RBC 4.61 3.90 - 5.20 M/cumm ANGELICA Comment:Testing performed by : [address] [address] MCV 86.8 81.3 - 96.4 fL ANGELICA Comment:Testing performed by : [address], [address] MCH 29.5 27.1 - 33.3 pg ANGELICA Comment:Testing performed by : [address], [address] MCHC 34.0 32.3 - 35.7 g/dL ANGELICA Comment:Testing performed by : [address], [address] RDW CV 14.1 11.1 - 14.9 % ANGELICA Comment:Testing performed by : [address], [address] RDW SD 44.5 35.7 - 48.1 fL ANGELICA Comment:Testing performed by : [address], [address] NRBC abs 0.00 0.00 - 0.01 K/cumm ANGELICA Comment:Testing performed by : [facility] [address] [place] [address], [place]., [address] Blood 05/25/2023 10:1 6 AM CDT 05/25/2023 10:20 AM CDT us Lucy Torie TORRES LAB BLOOD ORDERABLES Final Resu lt ANGELICA [address] [facility] Department [place] [address] documented in this encounter Visit Diagnoses Not on filedocumented in this encounter Administered Medications Inactive Administered Medications - up to 3 most recent administrations Medication Order MAR Action Action Date Dose Rate Site diphenhydrAMINE (BENADRYL) 50 mg/mL injection 25 mg 25 mg, intravenous, Administer over 2 Minutes, Once, On Bonita 05/25/23 at 1011, For 1 dose Given 05/25/2023 11:45 AM CDT 25 mg ketorolac (TORADOL) 30 mg/mL injection 15 mg 15 mg, intravenous, Once, On Bonita 05/25/23 at 1011, For 1 dose, For Adult IV push, administer over 15 seconds, Indications: PainIndications:Pain Given 05/25/2023 11:44 AM CDT 15 mg metoclopramide (REGLAN) 5 mg/mL injection 10 mg 10 mg, intravenous, Administer over 1 Minutes, Once, On Bonita 05/25/23 at 1011, For 1 dose Given 05/25/2023 11:46 AM CDT 10 mg documented in this encounter Active and Recently Administered Medications Times are shown in CDT. Scheduled Medication Order 05/23/2023 05/24/2023 05/25/2023 diphenhydrAMINE (BENADRYL) 50 mg/mL injection 25 mg (COMPLETED) 25 mg, intravenous, Administer over 2 Minutes, Once, On Bonita 05/25/23 at 1011, For 1 dose 1145 (Given - Provid er: Divya Alegria RN) ketorolac (TORADOL) 30 mg/mL injection 15 mg (COMPLETED) 15 mg, intravenous, Once, On Bonita 05/25/23 at 1011, For 1 dose, For Adult IV push, administer over 15 seconds, Indications: Pain 1144 (Given - Provid er: Divya Alegria, LEE) metoclopramide (REGLAN) 5 mg/mL injection 10 mg (COMPLETED) 10 mg, intravenous, Administer over 1 Minutes, Once, On Bonita 05/25/23 at 1011, For 1 dose 1146 (Given - Provid er: Divya Alegria RN) documented in this encounter Care Teams Deicer Repairer Relationship Specialty Start Date End Date Daily Cruz MD PCP - General Family Medicine 03/04/21 documented as of this encounter
--- OUTSIDE RECORDS SUMMARY | 2024-02-21 19:34 | XMS_ITS | Encounter Summary ---
Author Organization [facility] Address [address] [place] [address] Phone Care Team Providers Care Fruit Buying Grader Name Role Phone Daily Cruz MD Primary Care Provider [phone] [phone] Savannah Holt Unavailable Ange Chavez MD Unavailable [phone]- [phone] Encounter Details Date Type Department Care Team (Late st Contact Info) Description 06/13/2023 Telephone [facility] Ophthalmology [address] [facility] 6th [place] [address] Leisa Serrano MD [address] [facility] [address] [place] [address] Social History Tobacco Use Types [...] on file 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 She she inquiry about the [employer]ort[employer] message she sent dr. Strange of the my response of her [employer]ort[employer] message. Pt okay understood documented in this encounter Plan of Treatment [...] on filedocumented in this encounter Care Teams Fruit Buying Grader Relationship Specialty Start Date End Date Daily Cruz MD PCP - General Family Medicine 03/04/21 Savannah Holt PA [address] [facility] NEUROLOGY [address] [address] Physician Outside Plant Field Engineer Neurology 06/07/23 Ange Chavez MD [address] [facility] NEUROLOGY [facility] [address] [place] [address] Consulting Physician Endocrinology 06/07/23 documented as of this encounter
--- OUTSIDE RECORDS SUMMARY | 2024-02-21 19:34 | XMS_ITS | Encounter Summary ---
Author Organization [facility] Address [address] [place] [address] Phone Care Team Providers Care Fur Repairer Name Role Phone Daily Cruz MD Primary Care Provider [phone] [phone] Reason for Referral * Procedure (Routine) - Closed Specialty Diagnoses / Procedures Referred By Matt burk Referred To Contact Pulmonology Diagnoses Moderate persistent asthma with acute exacerbation Procedures Pulmonary Function Test -[facility] Adult PFT Lab- CAM-8D; Spirometry with Bronchodilator, DLCO; Spirometry Elyssa Sawyer NP [address] [place] [address] Phone: tel: fax: Referral ID Status Reason Start Date Expiration Date Visits Re quested Visits Authorized [id number] Closed 01/16/2023 02/15/2024 1 1 AINABILITY SPECIALIST Reason for Visit * Procedure (Routine) - Closed Specialty Diagnoses / Procedures Referred By Contac t Referred To Contact Pulmonology Diagnoses Moderate persistent asthma with acute exacerbation Procedures Pulmonary Function Test -[facility] PFT [facility]- CAM-8D; Spirometry with Bronchodilator, DLCO; Spirometry Elyssa Sawyer NP [address] [place] [address] Phone: tel: fax: Referral ID Status Reason Start Date Expiration Date Visits Re quested Visits Authorized [id number] Closed 01/16/2023 02/15/2024 1 1 Encounter Details Date Type Department Care Team (Latest Contact Info) Description 02/02/2023 8:00 AM SUSTAINABILITY SPECIALIST - 02/02/2023 11:59 PM SUSTAINABILITY SPECIALIST Hospital Encounter [facility] Pulmonary [address] [facility] [address] [place] [address] Moderate persistent asthma with acute exacerbation Discharge Disposition: Discharge to home or self [...] you are drinking? 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 Gender Identity Female 03/02/2020 4:27 PM SUSTAINABILITY SPECIALIST Sexual Orientation Straight 07/10/2019 11 :13 [...] nausea or vomiting 20 tablet 02/01/2023 4 phentermine (ADIPEX-P) 37.5 mg tabletIndications:M orbid [...] 06/25/2021 4 documented as of this encounter Discharge [...] Procedure Name Priority Date/Time Associated Diagnosis Comments PULMONARY FUNCTION TEST (PFT) Routine 02/02/2023 8:54 AM SUSTAINABILITY SPECIALIST Moderate persistent asthma with acute exacerbation documented in this encounter Results * Pulmonary Function Test - (02/02/2023 8:54 AM SUSTAINABILITY SPECIALIST) FVC PRE 3.23 L [facility] FVC %PRE PRED 76 % [facility] FVC POST 3.38 L [facility] FVC %POST PRED 80 % [facility] FEV1 PRE 2.86 L [facility] FEV1 %PRE PRED 81 % [facility] FEV1 POST 3.11 L [facility] FEV1 %POST PRED 88 % [facility] FEV1/FVC PRE 88.6 % [facility] FEV1/FVC POST 92.0 % [facility] DLCO PRE 23.5 ml/min/mmH g [facility] DLCO %PRE PRED 99 % [facility] Anatomical Region Laterality Modality PFT 02/02/2023 8:35 AM SUSTAINABILITY SPECIALIST Impressions 02/02/2023 9:54 AM SUSTAINABILITY SPECIALIST There is a mild restrictive ventilatory defect. However measurement of lung volumes is suggested to confirm this if clinically indicated. There is no impairment of alveolar gas exchange by DLCO. The attending pulmonary physician certifies a physician presence in the [facility] during the administration of aerosolized bronchodilator. The attending pulmonary physician certifies that he/she has reviewed and interpreted the graphic and numerical data of this pulmonary function study and agrees with the written final report. The lower limit of normal for PO2 and %HbO2 is age dependent. However, the [facility] Pulmonary Function Laboratory defines hypoxemia as a PO2 <55 or a %HbO2 <89. Narrative 02/02/2023 9:54 AM SUSTAINABILITY SPECIALIST PFT performed at:->[facility] Adult PFT Lab- CAM-8D Procedure:->Spirometry with Bronchodilator Procedure:->DLCO DLCO:->Spirometry Pulmonary Function Test Interpretation SPIROMETRY: The FEVI to FVC ratio is normal. The FEV-I and FVC are reduced in a pattern suggestive of a restrictive abnormality. However, measurement of lung volumes is suggested to confirm this if clinically indicated. There is no significant improvement after inhaling a single nebulized dose of albuterol. FLOW VOLUME LOOPS: The inspiratory loop is normal. DIFFUSING CAPACITY: The diffusing capacity corrected for hemoglobin level (DLCO ADJ) is within normal limits. Elyssa Silverio KNIFE BLADE POLISHER PFT ORDERABLES Final Result documented in this encounter Visit Diagnoses Diagnosis Moderate persistent asthma with acute exacerbation documented in this encounter Care Teams Fur Repairer Relationship Specialty Start Date End Date Daily Cruz MD PCP - General Family Medicine 03/04/21 documented as of this encounter
--- OUTSIDE RECORDS SUMMARY | 2024-02-21 19:34 | XMS_ITS | Encounter Summary ---
Author Organization [facility] Address [address] [place] [address] Care Team Providers Care [place] Stayer Machine Operator Name Role Phone Daily Cruz MD Primary Care Provider [phone] Reason for Referral * MRI/CAT/PET Scan (Routine) - Closed Specialty Diagnoses / Procedures Referred By Matt burk Referred To Contact Radiology Diagnoses Chronic sinusitis, unspecified location Procedures CT Sinus Stealth WO Contrast Elyssa Sawyer NP [address] [address] Phone: tel: fax: [address] [phone] Referral ID Status Reason Start Date Expiration Date Visits Re quested Visits Authorized [id number] Closed 01/16/2023 02/15/2024 1 1 HANDISING SPECIALIST Reason for Visit * MRI/CAT/PET Scan (Routine) - Closed Specialty Diagnoses / Procedures Referred By Matt burk Referred To Contact Radiology Diagnoses Chronic sinusitis, unspecified location Procedures CT Sinus Stealth WO Contrast Elyssa Sawyer NP [address] [place] [address] Phone: tel: fax: [address] [phone] Referral ID Status Reason Start Date Expiration Date Visits Re quested Visits Authorized [id number] Closed 01/16/2023 02/15/2024 1 1 Encounter Details Date Type Department Care Team (Latest Contact Info) Description 01/19/2023 7:26 AM MERCHANDISING SPECIALIST - 01/19/2023 11:59 PM MERCHANDISING SPECIALIST Hospital Encounter [facility] [address] [place] [address] Chronic sinusitis, unspecified location Discharge Disposition: Discharge to home or self [...] on file Legal Sex Female 3:37 PM MERCHANDISING SPECIALIST Gender Identity Female 03/02/2020 4:27 PM MERCHANDISING SPECIALIST Sexual Orientation Straight 07/10/2019 11 :13 PM CDT documented as of this encounter Medications at Time of Discharge acetaminophen-aspi rin-caffeine (EXCEDRIN MIGRAINE) 250-250-65 mg per tablet Take 1 tablet by mouth every 6 (six) hours as needed 4 albuterol HFA (PROVENTIL HFA,VENTOLIN HFA,PROAIR HFA) 90 mcg/actuation inhalerIndications :Acute bronchitis due to other specified organisms Inhale 2 puffs 4 (four) times a day for 5 days Use only as needed after those 5 days 6.7 each 1 07/21/2022 4 azithromycin (Zithromax Z-Michael) 250 mg tabletIndications: Moderate persistent asthma with acute exacerbation,Chron ic sinusitis, unspecified location Take 2 tabs (500 mg) by mouth today, then 1 tab (250 mg) daily for 4 days. 6 tablet 01/16/2023 3 bumetanide (BUMEX) 1 mg tablet Take 1 tablet (1 mg total) by mouth daily 4 cholecalciferol (VITAMIN D-3) 5,000 unit tablet Take 0.2 tablets (1,000 Units total) by mouth daily 4 cyclobenzaprine (FLEXERIL) 10 mg tablet 09/09/2022 4 ergocalciferol, vitamin D2, 50 mcg (2,000 unit) tablet Take 2 tablets by mouth daily 5,000 4 famotidine (PEPCID) 40 mg tabletIndications: Gastroesophageal reflux disease without esophagitis Take 1 tablet (40 mg total) by mouth daily 30 tablet 08/30/2022 3 famotidine (PEPCID) 40 mg tabletIndications: Gastroesophageal reflux disease without esophagitis TAKE 1 TABLET BY MOUTH EVERY DAY 30 tablet 3 01/20/2023 4 fexofenadine (ARIANNA) 180 mg tabletIndications: Non-seasonal allergic rhinitis due to fungal spores Take 1 tablet (180 mg total) by mouth 2 (two) times a day 180 tablet 3 07/13/2022 4 FLUoxetine (PROzac) 40 mg capsuleIndications :Anxiety and depression Take 1 capsule (40 mg total) by mouth daily 30 capsule 5 12/12/2022 4 fluticasone propionate (FLONASE) 50 mcg/actuation nasal sprayIndications:R eactive airway disease without asthma,Allergic reaction, initial encounter Administer 2 sprays into each nostril daily 48 mL 1 02/25/2022 4 hydrocortisone 2.5 % ointmentIndication s:Rash Apply topically 2 (two) times a day 30 g 03/02/2022 4 ibuprofen (ADVIL,MOTRIN) 800 mg tabletIndications: Acute bilateral low back pain without sciatica Take 1 tablet (800 mg total) by mouth 3 (three) times a day 90 tablet 09/27/2021 4 inhalational spacing device (Aerochamber Plus Z Stat) spacerIndications: Moderate persistent asthma with acute exacerbation 1 unit marking on U-100 syringe 2 (two) times a day 1 each 01/16/2023 4 magnesium oxide 400 mg magnesium capsule Take 400 mg by mouth daily 4 montelukast (SINGULAIR) 10 mg tabletIndications: Reactive airway disease without asthma,Allergic reaction, initial encounter TAKE 1 TABLET BY MOUTH EVERY DAY AT NIGHT 90 tablet 11/10/2022 4 nystatin 100,000 unit/mL suspension Take 5 mL (500,000 Units total) by mouth as needed 07/15/2022 4 omeprazole (PriLOSEC) 20 mg capsule Take 1 capsule (20 mg total) by mouth 2 (two) times a day before breakfast and dinner 60 capsule 3 01/03/2023 4 phentermine (ADIPEX-P) 37.5 mg tabletIndications: Morbid obesity with BMI of 40.0-44.9, adult (HCC) Take 1 tablet (37.5 mg total) by mouth daily before breakfast 30 tablet 2 08/17/2022 4 POTASSIUM CHLORIDE ORAL Take by mouth daily 4 rimegepant (Nurtec ODT) tablet,disintegrat ingIndications:Gerhard cloud,Migraine Prevention Take 1 tablet (75 mg total) by mouth as needed (take every other day PRN) 16 tablet 2 12/15/2022 4 sodium, potassium & mag sulfates (SUPREP BOWEL KIT) 17.5-3.13-1.6 gram recon soln MIX 1 BOTTLE WITH WATER, TAKE AT 4PM THE DAY BEFORE PROCEDURE. DRINK 2ND BOTTLE 6 HRS BEFORE ARRIVAL 12/29/2022 4 triamcinolone (KENALOG) 0.1 % creamIndications:A llergic contact dermatitis, unspecified trigger Apply topically 2 [...] Name Priority Date/Time Associated Diagnosis Comments CT SINUS STEALTH WO CONTRAST Schedule Routine, Read Routine (OP Routine) 01/19/2023 8:24 AM MERCHANDISING SPECIALIST Chronic sinusitis, unspecified location documented in this encounter Results * CT Sinus Stealth WO Contrast (01/19/2023 8:24 AM MERCHANDISING SPECIALIST) Anatomical Region Laterality Modality Head N/A Computed Tomogra phy 01/19/2023 9:30 AM MERCHANDISING SPECIALIST Impressions 01/19/2023 11:20 AM MERCHANDISING SPECIALIST Left maxillary sinus mucus retention cyst and trace mucosal thickening in the sphenoid sinus. ?? Small leftward directed spur in the nasal septum. Dictated by: Shadi Fisher M.D. The radiology attending physician has personally reviewed this study, and had reviewed and/or edited this written report and agrees with it. Electronically signed by: Horace Beavers MD, PHD Narrative 01/19/2023 11:20 AM MERCHANDISING SPECIALIST EXAMINATION: CT of the paranasal sinuses without contrast HISTORY: Chronic sinusitis TECHNIQUE: CT of the paranasal sinuses was performed using the sinus protocol without contrast. COMPARISON: None Available. FINDINGS: Review of the topogram demonstrates no abnormalities. The frontal sinuses are normal. The ethmoid sinuses are normal. Small left maxillary sinus is retention cyst. Trace mucosal thickening in the left sphenoid sinus. The ostiomeatal units are open bilaterally. Small leftward directed spur. No areas of bony erosion are identified. The orbits are normal. Limited view of the frontal lobes is normal. Procedure Note Horace Beavers MD PhD - 01/19/2023 EXAMINATION: CT of the paranasal sinuses without contrast HISTORY: Chronic sinusitis TECHNIQUE: CT of the paranasal sinuses was performed using the sinus protocol without contrast. COMPARISON: None Available. FINDINGS: Review of the topogram demonstrates no abnormalities. The frontal sinuses are normal. The ethmoid sinuses are normal. Small left maxillary sinus is retention cyst. Trace mucosal thickening in the left sphenoid sinus. The ostiomeatal units are open bilaterally. Small leftward directed spur. No areas of bony erosion are identified. The orbits are normal. Limited view of the frontal lobes is normal. IMPRESSION: Left maxillary sinus mucus retention cyst and trace mucosal thickening in the sphenoid sinus. Small leftward directed spur in the nasal septum. Dictated by: Shadi Fisher M.D. The radiology attending physician has personally reviewed this study, and had reviewed and/or edited this written report and agrees with it. Electronically signed by: Horace Beavers MD, PHD [facility] GENER[facility] WORKER IMG CT PROCEDURES Final Result documented in this encounter Visit Diagnoses Diagnosis Chronic sinusitis, unspecified location documented in this encounter Care Teams [place] Stayer Machine Operator Relationship Specialty Start Date End Date Daily Cruz MD PCP - General Family Medicine 03/04/21 documented as of this encounter
--- OUTSIDE RECORDS SUMMARY | 2024-02-21 19:34 | XMS_ITS | Encounter Summary ---
Author Organization [facility] Address [address] [place] [address] Phone Care Team Providers Care Business Consultant Name Role Phone Daily Cruz MD Primary Care Provider [phone] Reason for Visit * Episode Based Medications (Routine) - Authorized Specialty Diagnoses / Procedures Referred By Matt burk Referred To Contact Diagnoses Pituitary adenoma (HCC) Ange Chavez MD [address] [place] [address] Phone: tel: fax: [facility] Endocrinology Metabolism and Lipid [address] [place] [address] [place] [address] Phone: tel: fax: Referral ID Status Reason Start Date Expiration Date V isits Requested Visits Authorized [id number] Authorized 03/31/2023 02/13/2024 1 1 Encounter Details Date Type Department Care Team (Late st Contact Info) Description 04/03/2023 9:30 AM ROOM DESIGNER Infusion [facility] Infusion Therapy [address] [place] [address] [place] [address] Pituitary adenoma (HCC) (Primary Dx) Social History Tobacco Use Types [...] on file Legal Sex Female 3:37 PM ROOM DESIGNER Gender Identity Female 03/02/2020 4:27 PM ROOM DESIGNER Sexual Orientation Straight 07/10/2019 11 :13 PM CDT documented as of this encounter Last Filed Vital Signs Vital Sign Reading Time Taken Comments Blood Pressure 119/83 04/03/2023 10:15 AM ROOM DESIGNER Pulse 53 04/03/2023 10:15 AM ROOM DESIGNER Temperature - - Respiratory Rate 17 04/03/2023 10:15 AM ROOM DESIGNER Oxygen Saturation - - Inhaled Oxygen Concentration - - Weight - - Height - - Body Mass Index - - documented in this encounter Progress Notes * Daisha Chew RN - 04/03/2023 9:30 AM CST Pt to infusion center for Cortisol stimulation test. No steroid Baseline cortisol level drawn 948 Cosyntropin administered 950- when going to flush with saline post cosyntropin the butterfly needleinfiltrated. 30 minute cortisol level drawn 1020 60 minute cortisol level drawn 1050 Labs dated, timed and numbered. Sent to [facility]. DESIGNER documented in this encounter Miscellaneous Notes * Addendum Note - Guille Gonzáles - 04/03/2023 9:30 AM CSTAddended by: GUILLE GONZÁLES on: 04/03/2023 02:31 PM Modules accepted: Orders DESIGNER documented in this encounter Plan of Treatment [...] MAR Action Action Date Dose Rate Site cosyntropin (ACTH,CORTISOL) injection 250 mcg 250 mcg, intravenous, Administer over 2 Minutes, Once, On Mon04/03/23 at 1015, For 1 dose, Reconstitute 250 mcg vial with 1 mL 0.9% sodium chloride and remove dose. For IV push, further dilute dose with equal volume 0.9% sodium chloride to a final concentration of 125 mcg/mLIndications:Pituitary adenoma (HCC) Given 04/03/2023 9:50 AM ROOM DESIGNER 250 mcg documented in this encounter Orders Medications Ordered That Gerhard ht Not Have Been Administered Count Last Ordered Date First Ordered Date cosyntropin (ACTH,CORTISOL) injection 250 mcg 1 04/03/2023 Nursing Count Last Ordered Date First Orde red Date NURSING COMMUNICATION 1 04/03/2023 ONCBCN PROVIDER COMMUNICATION 13 04/03/19 24 documented in this encounter Care Teams Business Consultant Relationship Specialty Start Date End Date Daily Cruz MD PCP - General Family Medicine 03/04/21 documented as of this encounter
--- OUTSIDE RECORDS SUMMARY | 2024-02-21 19:34 | XMS_ITS | Encounter Summary ---
Author Organization [facility] Healthcare Address [address] [place] [address] Care Team Providers Care Impregnator Operator Name Role Phone Daily Cruz MD Primary Care Provider [phone] Reason for Visit * Reason Comments Cough Encounter Details Date Type Department Care Team ([facility] Contact Info) Description 02/17/2023 12:43 PM [facility] - 02/17/2023 1:15 PM [facility] Emergency [facility] Emergency Department [address] [place] [id number] Influenza A (Primary Dx); Mild intermittent asthma with exacerbation Discharge Disposition: Discharge to home or [...] on file Legal Sex Female 3:37 PM JEWELRY SETTER Gender Identity Female 03/02/2020 4:27 PM JEWELRY SETTER Sexual Orientation Straight 07/10/2019 11 :13 PM CDT documented as of this encounter Last Filed Vital Signs Vital Sign Reading Time Taken Comments Blood Pressure 135/99 02/17/2023 11:05 AM JEWELRY SETTER Pulse 77 02/17/2023 11:04 AM JEWELRY SETTER Temperature 36.7 ??C (98.1 ??F) 02/17/2023 1 1:04 AM JEWELRY SETTER Respiratory Rate 18 02/17/2023 11:0 4 AM JEWELRY SETTER Oxygen Saturation 96% 02/17/2023 11: 04 AM JEWELRY SETTER Inhaled Oxygen Concentration - - Weight 111.6 kg (246 lb 0.5 oz) 024 11:04 AM JEWELRY SETTER Height - - Body Mass Index 38.53 02/08/2023 11:39 AM JEWELRY SETTER documented in this encounter Discharge Instructions * Discharge Instructions* Gisela Galaviz PA - 02/17/2023 1:04 PM JEWELRY SETTER 1) Stay home for 5 days from the first day of symptoms and fever free for 24 hours. Get plenty of rest. Stay very hydrated. 2) Use Tylenol and Motrin per package instructions for pain relief and fever reduction. 3) use albuterol inhaler nebulizer as needed. Medrol Dosepak as prescribed. May take [id number] cough medication. 4) Follow-up closely with your primary care provider in the next 2-3 days to ensure that you are improving. 5) Return to the emergency room for any new worsening symptoms especially for chest pain, shortnessof breath, uncontrollable vomiting, fever greater than 100.4 not relieved with Tylenol/Ibuprofen, severe weakness, uncontrollable headache/pain, confusion or other new emergent concerns. LRY SETTER * Attachments The following attachments cannot be sent through Care Everywhere. * Influenza (Senior Piping Designer) (Albanian) documented in this encounter Medications at Time of Discharge albuterol 2.5 mg /3 mL (0.083 %) nebulizer solutionIndications :Acute Asthma Attack Take 3 mL (2.5 mg total) by nebulization every 4 (four) hours as needed for wheezing 180 mL 4 albuterol HFA (PROVENTIL HFA,VENTOLIN HFA,PROAIR HFA) 90 mcg/actuation inhalerIndications: Acute Asthma Attack Inhale 2 puffs every 4 (four) hours as needed for wheezing 6.7 g 4 acetaminophen-aspir in-caffeine (EXCEDRIN MIGRAINE) 250-250-65 mg per tablet Take 1 tablet by mouth every 6 (six) hours as needed 02/28/19 24 bumetanide (BUMEX) 1 mg tablet Take 1 tablet (1 mg total) by mouth daily 02/28/19 24 cholecalciferol (VITAMIN D-3) 5,000 unit tablet Take 0.2 tablets (1,000 Units total) by mouth daily 02/28/19 24 cyclobenzaprine (FLEXERIL) 10 mg tablet 3 02/28/19 24 dicyclomine (BENTYL) 20 mg tablet Take 1 tablet (20 mg total) by mouth 2 (two) times a day 20 tablet 3 02/28/19 24 ergocalciferol, vitamin D2, 50 mcg (2,000 unit) tablet Take 2 tablets by mouth daily 5,000 02/28/19 24 famotidine (PEPCID) 40 mg tabletIndications:G astroesophageal reflux disease without esophagitis TAKE 1 TABLET BY MOUTH EVERY DAY 30 tablet 3 3 02/28/19 24 fexofenadine (ARIANNA) 180 mg tabletIndications:N on-seasonal allergic rhinitis due to fungal spores Take 1 tablet (180 mg total) by mouth 2 (two) times a day 180 tablet 3 3 02/28/19 24 FLUoxetine (PROzac) 40 mg capsuleIndications: Anxiety and depression Take 1 capsule (40 mg total) by mouth daily 30 capsule 5 3 02/28/19 24 fluticasone propionate (FLONASE) 50 mcg/actuation nasal sprayIndications:Re active airway disease without asthma,Allergic reaction, initial encounter Administer 2 sprays into each nostril daily 48 mL 1 3 02/28/19 24 hydrocortisone 2.5 % ointmentIndications :Rash Apply topically 2 (two) times a day 30 g 3 02/28/19 24 ibuprofen (ADVIL,MOTRIN) 800 mg tabletIndications:A cute bilateral low back pain without sciatica Take 1 tablet (800 mg total) by mouth 3 (three) times a day 90 tablet 2 02/28/19 24 inhalational spacing device (Aerochamber Plus Z Stat) spacerIndications:M oderate persistent asthma with acute exacerbation 1 unit marking on U-100 syringe 2 (two) times a day 1 each 3 02/28/19 24 loperamide (IMODIUM) 2 mg capsule Take 1 capsule (2 mg total) by mouth 4 (four) times a day as needed for diarrhea 12 capsule 3 02/28/19 24 magnesium oxide 400 mg magnesium capsule Take 400 mg by mouth daily 02/28/19 24 methylPREDNISolone (Medrol, Michael,) 4 mg Dosepack follow package directions 1 packet 4 02/28/19 24 montelukast (SINGULAIR) 10 mg tabletIndications:R eactive airway disease without asthma,Allergic reaction, initial encounter TAKE 1 TABLET BY MOUTH EVERY DAY AT NIGHT 90 tablet 3 02/28/19 24 nystatin 100,000 unit/mL suspension Take 5 mL (500,000 Units total) by mouth as needed 3 02/28/19 24 omeprazole (PriLOSEC) 20 mg capsule Take 1 capsule (20 mg total) by mouth 2 (two) times a day before breakfast and dinner 60 capsule 3 3 02/28/19 24 ondansetron ODT (ZOFRAN-ODT) 4 mg disintegrating tablet Take 1 tablet (4 mg total) by mouth every 8 (eight) hours as needed for nausea or vomiting 20 tablet 3 02/28/19 24 phentermine (ADIPEX-P) 37.5 mg tabletIndications:M orbid obesity with BMI of 40.0-44.9, adult (HCC) Take 1 tablet (37.5 mg total) by mouth daily before breakfast 30 tablet 2 3 01/16/20 24 POTASSIUM CHLORIDE ORAL Take by mouth daily 02/28/19 24 rimegepant (Nurtec ODT) tablet,disintegrati ngIndications:Migra ine,Migraine Prevention Take 1 tablet (75 mg total) by mouth as needed (take every other day PRN) 16 tablet 2 3 02/28/19 24 sodium, potassium & mag sulfates (SUPREP BOWEL KIT) 17.5-3.13-1.6 gram recon soln MIX 1 BOTTLE WITH WATER, TAKE AT 4PM THE DAY BEFORE PROCEDURE. DRINK 2ND BOTTLE 6 HRS BEFORE ARRIVAL 3 05/12/19 24 triamcinolone (KENALOG) 0.1 % creamIndications:Al lergic contact dermatitis, unspecified trigger Apply topically 2 (two) times a day as needed for rash Do not use on the face or in the groin 454 g 2 2 02/28/19 24 documented as of this encounter Ordered Prescriptions Prescription Sig Dispense Quantity Refills Last Filled Start Date End Date albuterol 2.5 mg /3 mL (0.083 %) nebulizer solutionIndicatio ns:Acute Asthma Attack Take 3 mL (2.5 mg total) by nebulization every 4 (four) hours as needed for wheezing 180 mL 02/17/2023 albuterol HFA (PROVENTIL HFA,VENTOLIN HFA,PROAIR HFA) 90 mcg/actuation inhalerIndication s:Acute Asthma Attack Inhale 2 puffs every 4 (four) hours as needed for wheezing 6.7 g 02/17/2023 methylPREDNISolon e (Medrol, Michael,) 4 mg Dosepack follow package directions 1 packet 02/17/2023 4 documented in this encounter Discharge Disposition Disposition Code Departure Means Destination Comment s Discharge to home or self care documented in this encounter ED Notes * Gisela Galaviz PA - 02/17/2023 12:51 PM CST ED NOTE Chief Complaint Chief Complaint Patient presents with Cough History of Present Illness The patient is a 32 y.o. female with history of asthma who presents for evaluation of cough, fever,sore throat, headache, body aches x3 days. Also reports chest tightness and shortness of breath. She ran out of her albuterol inhaler. She contacted her primary care who instructed her to come to the emergency room for evaluation. She has not taken anything for symptomatic relief. Medical History ALLERGIES: Allergies Allergen Reactions Acetazolamide Swollen tongue Tongue and lip swelling Sob Rash Dihydroergotamine Shortness of breath Severe pressure and tightness in chest Severe pressure and tightness in chest Anxiety, Shortness of Breath/Wheezing (Shortness of breath) Bradycardia and HTN Hydrochlorothiazide Swollen tongue Nickel Hives, Itching, Rash and Swelling SKIN TURNS RED Topiramate Swelling and Other (See comments) Dizzy, body goes numb Hydrocodone-Acetaminophen Nausea And Vomiting Lamotrigine Other (See comments) SEIZURE ACTIVITY Levetiracetam Other (See comments) SEIZURE ACTIVITY Oxycodone-Acetaminophen Nausea And Vomiting MEDICATIONS: Prior to Admission medications Medication Sig Start Date End Date Taking? Authorizing Provider [id number]-[id number] (EXCEDRIN MIGRAINE) 250-250-65 mg per tablet Take 1 tablet by mouth every 6 (six) hours as needed Patient not taking: Reported on 02/08/2023 Yessica Jordan MD albuterol HFA (PROVENTIL HFA,VENTOLIN HFA,PROAIR HFA) 90 mcg/actuation inhaler Inhale 2 puffs 4 (four) times a day for 5 days Use only as needed after those 5 days 07/21/22 12/12/22 Jamel Rivera MD PhD bumetanide (BUMEX) 1 mg tablet Take 1 tablet (1 mg total) by mouth daily Patient not taking: Reported on 02/08/2023 Yessica Jordan MD cholecalciferol (VITAMIN D-3) 5,000 unit tablet Take 0.2 tablets (1,000 Units total) by mouth daily Patient not taking: Reported on 02/08/2023 Yessica Jordan MD cyclobenzaprine (FLEXERIL) 10 mg tablet 09/09/22 Yessica Jordan MD dicyclomine (BENTYL) 20 mg tablet Take 1 tablet (20 mg total) by mouth 2 (two) times a day Patient not taking: Reported on 02/08/2023 02/01/23 02/01/24 Gerald Easton MD ergocalciferol, vitamin D2, 50 mcg (2,000 unit) tablet Take 2 tablets by mouth daily 5,000 Patient not taking: Reported on 02/08/2023 Yessica Jordan MD famotidine (PEPCID) 40 mg tablet TAKE 1 TABLET BY MOUTH EVERY DAY Patient not taking: Reported on 02/08/2023 01/20/23 Jeffrey Fleming MD fexofenadine (ARIANNA) 180 mg tablet Take 1 tablet (180 mg total) by mouth 2 (two) times a day 07/13/22 07/08/23 Larisa Yuan NP FLUoxetine (PROzac) 40 mg capsule Take 1 capsule (40 mg total) by mouth daily Patient not taking: Reported on 02/08/2023 12/12/22 Daily Cruz MD fluticasone propionate (FLONASE) 50 mcg/actuation nasal spray Administer 2 sprays into each nostrildaily Patient not taking: Reported on 02/08/2023 02/25/22 Daily Cruz MD hydrocortisone 2.5 % ointment Apply topically 2 (two) times a day Patient not taking: Reported on 02/08/2023 03/02/22 Larisa Yuan NP ibuprofen (ADVIL,MOTRIN) 800 mg tablet Take 1 tablet (800 mg total) by mouth 3 (three) times a day Patient not taking: Reported on 02/08/2023 09/27/21 Daily Cruz MD inhalational spacing device (Aerochamber Plus Z Stat) spacer 1 unit marking on U-100 syringe 2 (two) times a day Patient not taking: Reported on 02/08/2023 01/16/23 Elyssa Sawyer NP loperamide (IMODIUM) 2 mg capsule Take 1 capsule (2 mg total) by mouth 4 (four) times a day as needed for diarrhea Patient not taking: Reported on 02/08/2023 02/01/23 Gerald Easton MD magnesium oxide 400 mg magnesium capsule Take 400 mg by mouth daily Patient not taking: Reported on 02/08/2023 Yessica Jordan MD montelukast (SINGULAIR) 10 mg tablet TAKE 1 TABLET BY MOUTH EVERY DAY AT NIGHT Patient not taking: Reported on 02/08/2023 11/10/22 Daily Cruz MD nystatin 100,000 unit/mL suspension Take 5 mL (500,000 Units total) by mouth as needed Patient not taking: Reported on 02/08/2023 07/15/22 Yessica Jordan MD omeprazole (PriLOSEC) 20 mg capsule Take 1 capsule (20 mg total) by mouth 2 (two) times a day before breakfast and dinner Patient not taking: Reported on 02/08/2023 01/03/23 Jeffrey Fleming MD ondansetron ODT (ZOFRAN-ODT) 4 mg disintegrating tablet Take 1 tablet (4 mg total) by mouth every 8(eight) hours as needed for nausea or vomiting Patient not taking: Reported on 02/08/2023 02/01/23 Gerald Easton MD phentermine (ADIPEX-P) 37.5 mg tablet Take 1 tablet (37.5 mg total) by mouth daily before breakfast Patient not taking: Reported on 02/08/2023 08/17/22 Daily Cruz MD POTASSIUM CHLORIDE ORAL Take by mouth daily Patient not taking: Reported on 02/08/2023 Yessica Jordan MD rimegepant (Nurtec ODT) tablet,disintegrating Take 1 tablet (75 mg total) by mouth as needed (take every other day PRN) Patient not taking: Reported on 02/08/2023 12/15/22 Daily Cruz MD triamcinolone (KENALOG) 0.1 % cream Apply topically 2 (two) times a day as needed for rash Do not use on the face or in the groin Patient not taking: Reported on 02/08/2023 06/25/21 Natasha Sandoval MD PAST MEDICAL HISTORY: Past Medical History: Diagnosis Date ADHD (attention deficit hyperactivity disorder) Anxiety Arthritis Asthma Brain concussion 2010, 2009 Chronic bronchitis (HCC) Depression Gastric reflux GERD (gastroesophageal reflux disease) PRN tums IIH (idiopathic intracranial hypertension) Pseudotumor cerebri. reports last spinal tap 2017. 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 Alcohol Use: Not At Risk (02/08/2023) AUDIT-C Frequency of Alcohol Consumption: Never Average Number of Drinks: Patient does not drink Frequency of Binge Drinking: Never Review of Systems All systems reviewed and are neg or non contributory for this patients presentation today other than as stated in the HPI . Physical Exam BP 135/99 Pulse 77 Temp 36.7 ??C (98.1 ??F) (Oral) Resp 18 Wt 111.6 kg (246 lb 0.5 oz) SpO2 96% BMI 38.53 kg/m?? Physical Exam Vitals and nursing note reviewed. Constitutional: Appearance: Normal appearance. HENT: Right Ear: Tympanic membrane, ear canal and external ear normal. Left Ear: Tympanic membrane, ear canal and external ear normal. Mouth/Throat: Mouth: Mucous membranes are moist. Pharynx: Oropharynx is clear. No oropharyngeal exudate or posterior oropharyngeal erythema. Eyes: Conjunctiva/sclera: Conjunctivae normal. Cardiovascular: Rate and Rhythm: Normal rate and regular rhythm. Pulses: Normal pulses. Heart sounds: Normal heart sounds. Pulmonary: Effort: Pulmonary effort is normal. No respiratory distress. Breath sounds: Normal breath sounds. Abdominal: Palpations: Abdomen is soft. Musculoskeletal: General: Normal range of motion. Cervical back: Normal range of motion and neck supple. Skin: General: Skin is warm. Capillary Refill: Capillary refill takes less than 2 seconds. Neurological: General: No focal deficit present. Mental Status: She is alert. Psychiatric: Mood and Affect: Mood normal. Diagnostic Studies / Procedures LABORATORY STUDIES: Labs Reviewed INFLUENZA A/B, RSV, AND COVID-19 PCR - Abnormal Result Value COVID-19 RNA Negative Influenza A RNA Positive (*) Influenza B RNA Negative RSV RNA Negative Narrative: Is the Patient experiencing symptoms consistent with COVID?->Yes Date of Symptom Onset->02/15/23 Reason for testing?->Symptomatic STREPTOCOCCUS GROUP A PCR Strep A DNA Not Detected IMAGING STUDIES: XR Chest 1 Vw Portable Final Result XR Chest 1 Vw Portable Result Date: 02/17/2023 Narrative: EXAM DESCRIPTION: XR CHEST 1 VIEW REASON FOR STUDY: cough, pain Cough and fever x3 days.Sore throat, no meds PRODUCTION 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 8/10 pain generalized body aches. TECHNIQUE: 1 radiographic view(s) of the chest. COMPARISON: 11/30/2021 FINDINGS: LUNGS: The lungs are clear. Specifically, there is no pneumonic consolidation or pulmonary edema. No pleural effusion or pneumothorax HEART/MEDIASTINUM: Unchan ged, normal heart size and cardiomediastinal contours. LINES/TUBES: None. BONES: No acute osseous abnormality. IMPRESSION: No acute cardiopulmonary findings THIS IS AN ELECTRONICALLY VERIFIED FINAL REPORT 02/17/2023 12:07 PM - Electronically signed by Sterling Mckenna M.D. MZ: ALDO Report ID: [id number] Reading Location: [place] [address] Procedures ED Course / Medical Decision Making MDM Number of Diagnoses or Management Options Diagnosis management comments: DDX includes: COVID, influenza, RSV, asthma exacerbation, pneumonia Patient presents with flu-like symptoms for 3 days. Vital signs are stable. Lungs are clear. Positive for influenza A, likely triggering asthma exacerbation. Chest x-ray negative. Plan for discharge with refill of albuterol. Follow up with primary care doctor. Strict verbal return precautions reviewed. Patient expresses verbal understanding and agreement with plan. All questions answered to the best of my ability. Nontoxic exit exam. Patient discharged home in stable condition. Amount and/or Complexity of Data Reviewed Clinical lab tests: reviewed and ordered Tests in the radiology section of CPT??: ordered and reviewed Medications - No data to display Diagnoses that have been ruled out: None Diagnoses that are still under consideration: None Final diagnoses: Influenza A Mild intermittent asthma with exacerbation Disposition: DISPOSITION: Home Follow-Up: Daily Cruz MD [address] [facility] [address] [address] Call in 3 days As needed GALINA Chao 02/17/2023 Gisela Galaviz PA 02/17/23 1354 Cosigned by Jose Bhatt MD at 02/17/2023 2:13 PM JEWELRY SETTER LRY SETTER LRY SETTER Associated attestation - Jose Bhatt MD - 02/17/2023 2:13 PM JEWELRY SETTER ED Attestation I was present in the emergency department for consultation on this patient. This patient was not presented to me nor was I asked to evalute the patient before they were discharged. I reviewed the SOLAR SITE ASSESSMENT SPECIALIST/PA note briefly. * Yoko Perry RN - 02/17/2023 11:02 AM CST Cough and fever x3 days. 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 8/10 pain generalized body aches. LRY SETTER documented in this encounter Plan of Treatment [...] Name Priority Date/Time Associated Diagnosis Comments XR CHEST 1 VIEW ED 02/17/2023 12:00 PM JEWELRY SETTER INFLUENZA A/B, RSV, AND COVID-19 PCR Routine 02/17/2023 11:09 AM JEWELRY SETTER STREPTOCOCCUS GROUP A PCR STAT 02/17/2023 11:09 AM JEWELRY SETTER documented in this encounter Results * XR Chest 1 Vw Portable (02/17/2023 12:00 PM JEWELRY SETTER) Anatomical Region Laterality Modality Body, Chest N/A Computed Radiogr aphy 02/17/2023 12:0 4 PM JEWELRY SETTER Narrative 02/17/2023 12:07 PM JEWELRY SETTER EXAM DESCRIPTION: XR CHEST 1 VIEW REASON FOR STUDY: cough, pain ?? Cough and fever x3 days. 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 8/10 pain generalized body aches. ? TECHNIQUE: 1 ??radiographic view(s) of the chest. COMPARISON: 11/30/2021 FINDINGS: LUNGS: ??The lungs are clear. ??Specifically, there is no pneumonic consolidation or pulmonary edema. ??No pleural effusion or pneumothorax ?? HEART/MEDIASTINUM: ??Unchanged, normal heart size and cardiomediastinal contours. LINES/TUBES: ??None. BONES: ??No acute osseous abnormality. IMPRESSION: No acute cardiopulmonary findings THIS IS AN ELECTRONICALLY VERIFIED FINAL REPORT 02/17/2023 12:07 PM - Electronically signed by ??Sterling Mckenna M.D. MZ: ALDO D: ??02/17/2023 12:05 PM T: ??02/17/2023 12:07 PM Report ID: [id number] Reading Location: ??[id number] Procedure Note Sterling Mckenna MD - 02/17/2023 EXAM DESCRIPTION: XR CHEST 1 VIEW REASON FOR STUDY: cough, pain Cough and fever x3 days. 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 8/10 pain generalizedbody aches. TECHNIQUE: 1 radiographic view(s) of the chest. COMPARISON: 11/30/2021 FINDINGS: LUNGS: The lungs are clear. Specifically, there is nopneumonic consolidation or pulmonary edema. No pleural effusion or pneumothorax HEART/MEDIASTINUM: Unchanged, normal heart size and cardiomediastinal contours. LINES/TUBES: None. BONES: No acute osseous abnormality. IMPRESSION: No acute cardiopulmonary findings THIS IS AN ELECTRONICALLY VERIFIED FINAL REPORT 02/17/2023 12:07 PM - Electronically signed by Sterling Mckenna M.D. MZ: MZ Report ID: [id number] Reading Location: [id number] Gisela MOJICA IMLj XR PROCEDURES Final Resul t * Streptococcus Group A PCR Throat (02/17/2023 11:09 AM JEWELRY SETTER) Strep A DNA Not Detected Not Detected ANGELICA Comment: This test is performed using the Snipd Xpert Group A Streptococcal Assay. This is a qualitative, real-time PCR assay that detects Group A Strep using throat specimens from patients suspected of having streptococcal pharyngitis. This assay does not detect other beta-hemolytic streptococci including Group C or Group G. ??Group C and G have been associated with pharyngitis and, occasionally, acute nephritis but do not cause rheumatic fever. If suspected, order Throat Culture, Routine. This assay has been cleared by the [place] Food and Drug Administration, and its performance characteristics have been verified by the performing laboratory. Testing performed by: [facility], [address] [place] [address]., [id number] Throat 02/17/2023 11:0 9 AM JEWELRY SETTER 02/17/2023 11:19 AM JEWELRY SETTER us Gisela MOJICA LAB MICROBIOLOGY - GENERAL OR DERABLES Final Result Performing Organization Address City/[facility]/ZIP Co de Phone Number ANGELICA [address] [facility] [place] [address] * (ABNORMAL) Influenza A/B, RSV, and COVID-19 PCR Nasopharyngeal (02/17/2023 11:09 AM JEWELRY SETTER) COVID-19 RNA Negative Negative ANGELICA Comment:Testing performed by : [address] [address] Influenza A RNA Positive(A) Negative ANGELICA Comment:Testing performed by : [address] [address] Influenza B RNA Negative Negative [facility] Comment:Testing performed by : [address] [id number] RSV RNA Negative Negative [facility] Comment: Interpretive data: Testing performed by [facility]. This test is performed using the Snipd Xpert Xpress CoV-2/Flu/RSV plus assay. This is a multiplex, real-time reverse transcriptase PCR assay intended for the qualitative detection of nucleic acid from SARS-CoV-2, influenza A, influenza B, and respiratory syncytial virus. This assay has been cleared by the [place] Food and Drug administration. The performance characteristics have been verified by the [facility]. ??Results must be considered in the clinical context, and a negative result does not rule out infection. Interpretive Data last revised 2023 Testing performed by: [address] [address] Nasopharyngeal 02/17/2023 11 :09 AM JEWELRY SETTER 02/17/2023 11:20 AM JEWELRY SETTER Narrative ANGELICA - 02/17/2023 12:10 PM JEWELRY SETTER Is the Patient experiencing symptoms consistent with COVID?->Yes Date of Symptom Onset->02/15/23 Reason for testing?->Symptomatic Gisela MOJICA LAB MICROBIOLOGY - GENERAL OR DERABLES Final Result Performing Organization Address City/[facility]/ZIP Co de Phone Number ANGELICA [address] Department [place] [address] documented in this encounter Visit Diagnoses Diagnosis Influenza A- Primary Influenza with other respiratory manifestations Mild intermittent asthma with exacerbation Unspecified asthma, with exacerbation documented in this encounter Discontinued Medications Medication Sig Discontinue Reason Start Date End Da te albuterol HFA (PROVENTIL HFA,VENTOLIN HFA,PROAIR HFA) 90 mcg/actuation inhalerIndications:Acute bronchitis due to other specified organisms Inhale 2 puffs 4 (four) times a day for 5 days Use only as needed after those 5 days 07/21/2022 02/17/2023 documented as of this encounter Additional Health Concerns Infection Onset Date Last Indicated Resolved Time Influenza, adult 02/17/2023 02/17/2023 02/24/2023 3:05 AM JEWELRY SETTER documented as of this encounter Care Teams Impregnator Operator Relationship Specialty Start Date End Date Daily Cruz MD PCP - General Family Medicine 03/04/21 documented as of this encounter
--- OUTSIDE RECORDS SUMMARY | 2024-02-21 19:34 | XMS_ITS | Encounter Summary ---
Author Organization [facility] Healthcare Address [address] [place] [address] Care Team Providers Care Power Originator Name Role Phone Daily Cruz MD Primary Care Provider [phone] [phone] Encounter Details Date Type Department Care Team (Latest Contact Info) Description 04/03/2023 10:50 AM VOCATIONAL EVALUATOR - 04/03/2023 11:59 PM [facility] Hospital Encounter [address] [address] Pituitary adenoma (HCC) Discharge Disposition: Discharge to [...] on file Legal Sex Female 3:37 PM VOCATIONAL EVALUATOR Gender Identity Female 03/02/2020 4:27 PM VOCATIONAL EVALUATOR Sexual Orientation Straight 07/10/2019 11 :13 PM [...] Encounter Note - Ange Chavez MD - 04/03/2023 11:59 PM CST Hi Ms. Crocker, Your ACTH stimulation test came back normal (normal is a 30 or 60 minute cortisol > 14-15) whichmeans you are making enough cortisol on your own. Your other labs are also normal. JS TIONAL EVALUATOR documented in this encounter Plan of Treatment [...] Procedure Name Priority Date/Time Associated Diagnosis Comments CORTISOL 60 MIN Timed 04/03/2023 10:50 AM VOCATIONAL EVALUATOR Pituitary adenoma (HCC) CORTISOL 30 MIN Timed 04/03/2023 10:20 AM VOCATIONAL EVALUATOR Pituitary adenoma (HCC) PROLACTIN Routine 04/03/2023 10:20 AM VOCATIONAL EVALUATOR Pituitary adenoma (HCC) INSULIN-LIKE GROWTH FACTOR Routine 04/03/2023 10:20 AM VOCATIONAL EVALUATOR Pituitary adenoma (HCC) TSH Routine 04/03/2023 10:20 AM VOCATIONAL EVALUATOR Pituitary adenoma (HCC) T4, FREE Routine 04/03/2023 10:20 AM VOCATIONAL EVALUATOR Pituitary adenoma (HCC) COSYNTROPIN STIMULATION TEST Timed 04/03/2023 9:50 AM VOCATIONAL EVALUATOR Pituitary adenoma (HCC) CORTISOL BASELINE Timed 04/03/2023 9:5 0 AM VOCATIONAL EVALUATOR Pituitary adenoma (HCC) documented in this encounter Results * Cortisol 60 min (04/03/2023 10:50 AM VOCATIONAL EVALUATOR) Cortisol, 60 min 17.6 mcg/dL ANGELICA GARDUNO Comment: Interpretive Data: Cortisol cutoff of 14-15 ug/dL for cortrosyn stimulation testing Lack of normal response can be seen in both primary and secondary adrenal failure. Some patients with secondary adrenal failure have normal response to cortrosyn. If pituitary disease is known or strongly suspected e.g. after pituitary surgery), the cortrosyn test alone should not be relied on to exclude adrenal failure. Current interpretive data was last revised 21. Blood 04/03/2023 10:5 0 AM VOCATIONAL EVALUATOR 04/03/2023 2:39 PM VOCATIONAL EVALUATOR Narrative [facility] - 04/03/2023 3:27 PM VOCATIONAL EVALUATOR Obtain pre, 30 minutes, and 60 minutes post cosyntropin adminstration. Ange Chavez MD LAB BLOOD ORDERABLES Final Result Performing Organization Address [facility] de Phone Number [facility] [place] [address] * Cortisol 30 min (04/03/2023 10:20 AM VOCATIONAL EVALUATOR) Cortisol, 30 min 15.2 mcg/dL [facility] Comment: Interpretive Data: Cortisol cutoff of 14-15 ug/dL for cortrosyn stimulation testing Lack of normal response can be seen in both primary and secondary adrenal failure. Some patients with secondary adrenal failure have normal response to cortrosyn. If pituitary disease is known or strongly suspected e.g. after pituitary surgery), the cortrosyn test alone should not be relied on to exclude adrenal failure. Current interpretive data was last revised 21. Blood 04/03/2023 10:2 0 AM VOCATIONAL EVALUATOR 04/03/2023 2:39 PM VOCATIONAL EVALUATOR Narrative [facility] - 04/03/2023 3:26 PM VOCATIONAL EVALUATOR Obtain pre, 30 minutes, and 60 minutes post cosyntropin adminstration. us Ange Chavez MD LAB BLOOD ORDERABLES Final Result Performing Organization Address [facility] de Phone Number [facility] [place] [address] * Insulin-like growth factor (IGF-1) (04/03/2023 10:20 AM VOCATIONAL EVALUATOR) Insulin-like growth factor 1 (IGF-1) 120 60 - 280 ng/mL [facility] Comment: Interpretive Data Carlitos Stage ? Male ? Female ?I ?80-250 ? 80-320 ? II ? 100-450 ?120-450 ??III ? 250-500 ?250-550 ?? IV ? 225-600 ?225-600 ?V ? 225-500 ?180-500 Assay calibrated to WHO and instituted at [facility] 06/2017. References: 1. [employer] IGF-1 Package Insert 2016-11, V 1.0. 2. [facility] IGFMS entry ([email or web address]) accessed 06-21-2017. 3. Antonio M, Rk N, Graciela MCLAUGHLIN et al. J Clin Endocrinol Metab 2014;99:2864-6445. Current interpretive data was last revised on 2017. Testing performed by: [place]., [address] Blood 04/03/2023 10:2 0 AM VOCATIONAL EVALUATOR 04/03/2023 8:43 PM VOCATIONAL EVALUATOR Ange Chavez MD LAB BLOOD ORDERABLES Final Result Performing Organization Address [facility] de Phone Number [facility] Department of [facility] [place] [address] * TSH (04/03/2023 10:20 AM VOCATIONAL EVALUATOR) [facility] Signature Thyroid Stimulating Hormone 2.03 0.30 - 4.20 mcIUnit/mL [facility] Blood 04/03/2023 10:2 0 AM VOCATIONAL EVALUATOR 04/03/2023 2:38 PM VOCATIONAL EVALUATOR Ange Chavez MD LAB BLOOD ORDERABLES Final Result Performing Organization Address [facility] de Phone Number [facility] [place] [address] * T4, free (04/03/2023 10:20 AM VOCATIONAL EVALUATOR) Free T4 1.27 0.90 - 1.70 ng/dL [facility] Blood 04/03/2023 10:2 0 AM VOCATIONAL EVALUATOR 04/03/2023 2:38 PM VOCATIONAL EVALUATOR Ange Chavez MD LAB BLOOD ORDERABLES Final Result Performing Organization Address [facility] de Phone Number [facility] [place] [address] * Prolactin (04/03/2023 10:20 AM VOCATIONAL EVALUATOR) Prolactin 16.8 4.8 - 23.3 ng/mL [facility] Blood 04/03/2023 10:2 0 AM VOCATIONAL EVALUATOR 04/03/2023 2:38 PM VOCATIONAL EVALUATOR Ange Chavez MD LAB BLOOD ORDERABLES Final Result Performing Organization Address [facility] de Phone Number [facility] [place] [address] * Cortisol baseline (04/03/2023 9:50 AM VOCATIONAL EVALUATOR) Cortisol, base 7.1 mcg/dL [facility] Blood 04/03/2023 9:50 AM VOCATIONAL EVALUATOR 04/03/2023 2:38 PM VOCATIONAL EVALUATOR Narrative [facility] - 04/03/2023 3:27 PM VOCATIONAL EVALUATOR Obtain pre, 30 minutes, and 60 minutes post cosyntropin adminstration. Ange Chavez MD LAB BLOOD ORDERABLES Final Result Performing Organization Address [facility] de Phone Number [facility] [place] [address] documented in this encounter Visit Diagnoses Diagnosis Pituitary adenoma (HCC) Benign neoplasm of pituitary gland and craniopharyngeal duct (pouch) documented in this encounter Care Teams Power Originator Relationship Specialty Start Date End Date Daily Cruz MD PCP - General Family Medicine 03/04/21 documented as of this encounter
--- OUTSIDE RECORDS SUMMARY | 2024-02-21 19:34 | XMS_ITS | Encounter Summary ---
Author Organization [facility] Healthcare Address [address] [place] [address] Care Team Providers Care Butter Printer Name Role Phone Daily Cruz MD Primary Care Provider [phone] [phone] Reason for Referral * MRI/CAT/PET Scan (Routine) - Closed Specialty Diagnoses / Procedures Referred By Matt burk Referred To Contact Radiology Diagnoses Liver mass Procedures MRI Abdomen Liver W WO Contrast Alecia Shaver NP [address] [place] [address] Phone: tel: [address] [phone] Referral ID Status Reason Start Date Expiration Date Visits Re quested Visits Authorized [id number] Closed 02/28/2023 03/29/2024 1 1 TIGHTENER * Diagnostic Imaging (Routine) - Closed Specialty Diagnoses / Procedures Referred By Matt burk Referred To Contact Diagnoses Right upper quadrant abdominal pain Procedures US Gallbladder Alecia Shaver NP [address] [place] [address] Phone: tel: [address] [phone] Referral ID Status Reason Start Date Expiration Date Visits Re quested Visits Authorized [id number] Closed 02/28/2023 03/29/2024 1 1 TIGHTENER Reason for Visit * Reason Comments Abdominal Pain Encounter Details Date Type Department Care Team (Late st Contact Info) Description 02/28/2023 4:00 PM NUT TIGHTENER Telemedicine [facility] [place] [address] [place] [address] Alecia Shaver NP [address] [facility] [address] [place] [address] Right upper quadrant abdominal pain (Primary Dx); Liver mass Social History Tobacco Use Types Packs/Day Years [...] on file Legal Sex Female 3:37 PM NUT TIGHTENER Gender Identity Female 03/02/2020 4:27 PM NUT TIGHTENER Sexual Orientation Straight 07/10/2019 11 :13 PM CDT documented as of this encounter Last Filed Vital Signs Vital Sign Reading Time Taken Comments Blood Pressure - - Pulse - - Temperature - - Respiratory Rate - - Oxygen Saturation - - Inhaled Oxygen Concentration - - Weight 113.5 kg (250 lb 4.8 oz) 02/28/2023 4:10 PM NUT TIGHTENER Height 170.2 cm (5' 7 ) 02/28/2023 4:10 PM NUT TIGHTENER Body Mass Index 39.2 02/28/2023 4:10 PM NUT TIGHTENER documented in this encounter Progress Notes * Alecia Shaver NP - 02/28/2023 4:00 PM CST Images from the original note were not included. Visit Date: 02/28/2023 Patient ID: Jud Crocker is a 32 y.o. female. This was a telemedicine visit with Jud Crocker alone which took place via real-time video connection. During the visit, I was located in the office and the patient was located at home in the state of [place]. The patient visit started at 1615 and ended at 1648. I have explained the option of participating in a telemedicine visit to the patient. After being given an opportunity to ask questions about and discuss this type of visit, the patient verbally consented to proceeding with the telemedicine visit. The patient understands that this service replaces an office visit and they may be billed and/or responsible for any applicable copayments. The patient has been informed that the visit may not be secure and acknowledged the information. I have explained the option of participating in a telephone or video visit during the [facility] emergency to the patient. After being given an opportunity to ask questions about and discuss this type of visit, the patient verbally consented to proceeding with the telephone/video visit.The patient understands that this service replaces an office visit and they may be billed and/or responsible for any applicable copayments. Chief Complaint(s): Abdominal Pain HPI: 32-year-old female presents via telemedicine with complaints of ongoing abdominal pain, nausea, andconstipation and diarrhea intermittently. She was having severe abdominal pain 02/01 and was sent to the ER she abd/pelvic CT which showed partially distended gallbladder and 7 mm indeterminate livermass. She state that her symptoms have been ongoing and she feels like something is wrong. She stopped all of her medications after her ER visit 02/01 because she felt that she was on way too many medications and they could be contributing to her symptoms. She states that she has also been seeing a functionalist doctor who is requesting for her to get lab work done which has been ordered. She is really wanting to figure out what is causing all of her symptoms she is having. Current Outpatient Medications Medication Sig Dispense Refill albuterol 2.5 mg /3 mL (0.083 %) nebulizer solution Take 3 mL (2.5 mg total) by nebulization every 4 (four) hours as needed for wheezing 180 mL 0 albuterol HFA (PROVENTIL HFA,VENTOLIN HFA,PROAIR HFA) 90 mcg/actuation inhaler Inhale 2 puffs every4 (four) hours as needed for wheezing 6.7 g 0 dexAMETHasone (DECADRON) 1 mg tablet take 1 mg at 11pm and go to the lab the next morning at 8am tohave your blood drawn. 1 tablet 0 sodium, potassium & mag sulfates (SUPREP BOWEL KIT) 17.5-3.13-1.6 gram recon soln MIX 1 BOTTLE WITH WATER, TAKE AT 4PM THE DAY BEFORE PROCEDURE. DRINK 2ND BOTTLE 6 HRS BEFORE ARRIVAL No current facility-administered medications for this visit. Allergies as of 02/28/2023 - Reviewed 02/28/2023 Allergen Reaction Noted Acetazolamide Swollen tongue 01/04/2016 Dihydroergotamine Shortness of breath 10/16/2015 Hydrochlorothiazide Swollen tongue 05/20/2020 Nickel Hives, Itching, Rash, and Swelling 09/20/2017 Topiramate Swelling and Other (See comments) 04/18/2016 Hydrocodone-acetaminophen Nausea And Vomiting 09/11/2017 Lamotrigine Other (See comments) 09/20/2017 Levetiracetam Other (See comments) 09/20/2017 Oxycodone-acetaminophen Nausea And Vomiting 09/11/2017 Review of Systems: Review of Systems Constitutional: Negative for appetite change, fatigue and fever. HENT: Negative for congestion and rhinorrhea. Respiratory: Negative for cough, chest tightness, shortness of breath and wheezing. Cardiovascular: Negative for chest pain and palpitations. Gastrointestinal: Positive for abdominal pain, constipation, diarrhea and nausea. Negative for vomiting. Genitourinary: Negative for difficulty urinating. Musculoskeletal: Negative for arthralgias. Neurological: Negative for dizziness, weakness and headaches. Psychiatric/Behavioral: Negative for dysphoric mood. Physical Examination: Vitals: 02/28/23 1610 Weight: 113.5 kg (250 lb 4.8 oz) Height: 170.2 cm (5' 7 ) Physical Exam Vitals reviewed. Constitutional: Appearance: She is well-developed. Neurological: Mental Status: She is alert and oriented to person, place, and time. Psychiatric: Mood and Affect: Mood normal. Behavior: Behavior normal. Recent Lab/Results Reviewed: Recent Results (from the past 1008 hour(s)) POCT hCG, urine Collection Time: 02/01/23 [...] 23.5 ml/min/mmHg DLCO %PRE PRED 99 % Influenza A/B, RSV, and COVID-19 PCR Nasopharyngeal Collection Time: 02/17/23 11:09 AM Specimen: Nasopharyngeal Result Value Ref Range COVID-19 RNA Negative Negative Influenza A RNA Positive (A) Negative Influenza B RNA Negative Negative RSV RNA Negative Negative Streptococcus Group A PCR Throat Collection Time: 02/17/23 11:09 AM Specimen: Throat Result Value Ref Range Strep A DNA Not Detected Not Detected Assessment/Plan Diagnoses and all orders for this visit: Right upper quadrant abdominal pain (R10.11) (Primary) Comments: Uncontrolled. Will order gallbladder US and HIDA scan. Orders: - US Gallbladder; Future - NM Hepatobiliary Imaging; Future Liver mass (R16.0) Comments: 7mm liver mass seen on Abd/pelvic CT. Will order liver MRI for further evaluation. Orders: - MRI Abdomen Liver W WO Contrast; Future Return in about 4 weeks (around 03/28/2023) for Recheck. Alecia Shaver NP TIGHTENER documented in this encounter Plan of Treatment [...] documented as of this encounter Results * MRI Abdomen Liver W WO Contrast (02/05/2024 4:54 PM NUT TIGHTENER) Anatomical Region Laterality Modality Body N/A Magnetic Resonan ce 02/05/2024 5:34 PM NUT TIGHTENER Impressions 02/06/2024 8:07 AM NUT TIGHTENER T2 hyperintense enhancing lesion in hepatic segment 4B most characteristic of a flash filling hemangioma Dictated by: Bobby Yuan MD, PHD The radiology attending physician has personally reviewed this study, and had reviewed and/or edited this written report and agrees with it. Electronically signed by: Kyle Quinn M.D. Narrative 02/06/2024 8:07 AM NUT TIGHTENER EXAMINATION: MAGNETIC RESONANCE IMAGING OF THE ABDOMEN [...] Electronically signed by: Kyle Quinn M.D. us Aleciabeny Shaver SODA FOUNTAIN CLERK IMG MRI PROCEDURES Final Resul t * US Gallbladder (02/05/2024 3:03 PM NUT TIGHTENER) Anatomical Region Laterality Modality Abdomen N/A Ultrasound 02/05/2024 3:04 PM NUT TIGHTENER Impressions 02/05/2024 5:20 PM NUT TIGHTENER Normal gallbladder without evidence of cholelithiasis or acute cholecystitis. Dictated by: Janes Ibarra M.D. The radiology attending physician has personally reviewed this study, and had reviewed and/or edited this written report and agrees with it. Electronically signed by: Papo Denson M.D. Narrative 02/05/2024 5:20 PM NUT TIGHTENER EXAMINATION: ??LIMITED ABDOMINAL SONOGRAM ??(GALLBLADDER) HISTORY: ??33-year-old [...] Electronically signed by: Papo Denson M.D. us Alecia Shaver NP IMG US PROCEDURES Final Result documented in this encounter Visit Diagnoses Diagnosis Right upper quadrant abdominal pain- Primary Liver mass Unspecified disorder of liver Right upper quadrant abdominal pain Liver mass Unspecified disorder of liver documented in this encounter Discontinued Medications Medication Sig Discontinue Reason Start Date End Da te [id number] ffeine (EXCEDRIN MIGRAINE) 250-250-65 mg per tablet Take 1 tablet by mouth every 6 (six) hours as needed Therapy completed 02/28/2023 bumetanide (BUMEX) 1 mg tablet Take 1 tablet (1 mg total) by mouth daily Therapy completed 02/28/2023 cholecalciferol (VITAMIN D-3) 5,000 unit tablet Take 0.2 tablets (1,000 Units total) by mouth daily Therapy completed 02/28/2023 cyclobenzaprine (FLEXERIL) 10 mg tablet Therapy completed 09/09/20222023 dicyclomine (BENTYL) 20 mg tablet Take 1 tablet (20 mg total) by mouth 2 (two) times a day Therapy completed 02/01/2023 02/28/2023 ergocalciferol, vitamin D2, 50 mcg (2,000 unit) tablet Take 2 tablets by mouth daily 5,000 Therapy completed 02/28/2023 famotidine (PEPCID) 40 mg tabletIndications:Gastro esophageal reflux disease without esophagitis TAKE 1 TABLET BY MOUTH EVERY DAY Therapy completed 01/20/2023 02/28/2023 fexofenadine (ARIANNA) 180 mg tabletIndications:Non-se asonal allergic rhinitis due to fungal spores Take 1 tablet (180 mg total) by mouth 2 (two) times a day Therapy completed 07/13/2022 02/28/2023 FLUoxetine (PROzac) 40 mg capsuleIndications:Anxie ty and depression Take 1 capsule (40 mg total) by mouth daily Therapy completed 12/12/2022 02/28/2023 fluticasone propionate (FLONASE) 50 mcg/actuation nasal sprayIndications:Reactiv e airway disease without asthma,Allergic reaction, initial encounter Administer 2 sprays into each nostril daily Therapy completed 02/25/2022 02/28/2023 hydrocortisone 2.5 % ointmentIndications:Rash Apply topically 2 (two) times a day Therapy completed 03/02/2022 02/28/2023 ibuprofen (ADVIL,MOTRIN) 800 mg tabletIndications:Acute bilateral low back pain without sciatica Take 1 tablet (800 mg total) by mouth 3 (three) times a day Therapy completed 09/27/2021 02/28/2023 inhalational spacing device (Aerochamber Plus Z Stat) spacerIndications:Modera te persistent asthma with acute exacerbation 1 unit marking on U-100 syringe 2 (two) times a day Therapy completed 01/16/2023 02/28/2023 loperamide (IMODIUM) 2 mg capsule Take 1 capsule (2 mg total) by mouth 4 (four) times a day as needed for diarrhea Therapy completed 02/01/2023 02/28/2023 magnesium oxide 400 mg magnesium capsule Take 400 mg by mouth daily Therapy completed 02/28/2023 triamcinolone (KENALOG) 0.1 % creamIndications:Allergi c contact dermatitis, unspecified trigger Apply topically 2 (two) times a day as needed for rash Do not use on the face or in the groin Therapy completed 06/25/2021 02/28/2023 methylPREDNISolone (Medrol, Michael,) 4 mg Dosepack follow package directions Therapy completed 02/17/2023 02/28/2023 montelukast (SINGULAIR) 10 mg tabletIndications:Reacti ve airway disease without asthma,Allergic reaction, initial encounter TAKE 1 TABLET BY MOUTH EVERY DAY AT NIGHT Therapy completed 11/10/2022 02/28/2023 nystatin 100,000 unit/mL suspension Take 5 mL (500,000 Units total) by mouth as needed Therapy completed 07/15/2022 02/28/2023 omeprazole (PriLOSEC) 20 mg capsule Take 1 capsule (20 mg total) by mouth 2 (two) times a day before breakfast and dinner Therapy completed 01/03/2023 02/28/2023 ondansetron ODT (ZOFRAN-ODT) 4 mg disintegrating tablet Take 1 tablet (4 mg total) by mouth every 8 (eight) hours as needed for nausea or vomiting Therapy completed 02/01/2023 02/28/2023 phentermine (ADIPEX-P) 37.5 mg tabletIndications:Morbid obesity with BMI of 40.0-44.9, adult (HCC) Take 1 tablet (37.5 mg total) by mouth daily before breakfast Therapy completed 08/17/2022 02/28/2023 POTASSIUM CHLORIDE ORAL Take by mouth daily Therapy completed rimegepant (Nurtec ODT) tablet,disintegratingInd ications:Migraine,Migrai ne Prevention Take 1 tablet (75 mg total) by mouth as needed (take every other day PRN) Therapy completed 12/15/2022 02/28/2023 documented as of this encounter Care Teams Butter Printer Relationship Specialty Start Date End Date Daily Cruz MD PCP - General Family Medicine 03/04/21 documented as of this encounter
--- OUTSIDE RECORDS SUMMARY | 2024-02-21 19:34 | XMS_ITS | Encounter Summary ---
Author Organization [facility] Address [address] [place] [address] Phone Care Team Providers Care Wind Development Director Name Role Phone Daily Cruz MD Primary Care Provider [phone] [phone] Reason for Referral * MRI/CAT/PET Scan (Routine) - Closed Specialty Diagnoses / Procedures Referred By Matt burk Referred To Contact Radiology Diagnoses Pituitary adenoma (HCC) Procedures MRI Brain W WO Contrast (Pituitary) Ange Chavez MD Phone: tel: fax: [address] [address] Referral ID Status Reason Start Date Expiration Date Visits Re quested Visits Authorized [id number] Closed 02/22/2023 03/23/2024 1 1 FACTURING ENGINEERING INTERN * Consultation (Routine) - Closed Specialty Diagnoses / Procedures Referred By Matt burk Referred To Contact Neurology Diagnoses Pseudotumor cerebri Intractable chronic migraine without aura and with status migrainosus Ange Chavez MD Phone: tel: fax: Joe Holt PA [address] [place] [address] Phone: tel: fax: Referral ID Status Reason Start Date Expiration Date V isits Requested Visits Authorized [id number] Closed Specialty Services Required 02/22/2023 03/23/2024 1 1 Question Answer Please select the performing region: [facility] (All Locations) [167] To provider: JOE HOLT [[id number]] # of visits: 1 Comments migraines FACTURING ENGINEERING INTERN Encounter Details Date Type Department Care Team (Late st Contact Info) Description 02/22/2023 1:00 PM MANUFACTURING ENGINEERING INTERN Office Visit [facility] Endocrinology Metabolism and Lipid [address] [facility] [address] [place] [address] Ange Chavez MD [address] [facility] [address] [address] [place] [address] Pituitary adenoma (HCC) (Primary Dx); Rathke's cyst (HCC); Pseudotumor cerebri; Intractable chronic migraine without aura and with status migrainosus Social History Tobacco Use Types Packs/Day Years [...] on file Legal Sex Female 3:37 PM MANUFACTURING ENGINEERING INTERN Gender Identity Female 03/02/2020 4:27 PM MANUFACTURING ENGINEERING INTERN Sexual Orientation Straight 07/10/2019 11 :13 PM CDT documented as of this encounter Last Filed Vital Signs Vital Sign Reading Time Taken Comments Blood Pressure 100/68 02/22/2023 1:21 PM MANUFACTURING ENGINEERING INTERN Pulse 72 02/22/2023 1:21 PM MANUFACTURING ENGINEERING INTERN Temperature - - Respiratory Rate - - Oxygen Saturation - - Inhaled Oxygen Concentration - - Weight 115.8 kg (255 lb 6.4 oz) 02/22/2023 1:21 PM MANUFACTURING ENGINEERING INTERN Height 170.2 cm (5' 7 ) 02/22/2023 1:21 PM MANUFACTURING ENGINEERING INTERN Body Mass Index 40 02/22/2023 1:21 PM MANUFACTURING ENGINEERING INTERN documented in this encounter Patient Instructions * Patient Instructions* Ange Chavez MD - 02/22/2023 1:00 PM MANUFACTURING ENGINEERING INTERN Do a dexamethasone suppression test: You should take dexamethasone 1 mg (this was sent to your pharmacy) at 11:00 p.m. and go to the lab the next morning at 8:00 am to have your blood drawn for a cortisol and dexamethasone level I ordered additional labs to be done at the same time Someone will contact you to schedule an ACTH stimulation test to see if you are making enough cortisol on your own. This is done in our infusion center and takes approximately one hour. During the test you will be given an injection of the hormone ACTH (cosyntropin) through an intravenous catheter (IV). Your cortisol level will be checked at baseline and then 30 and 60 minutes after receiving themedication. We are looking for your cortisol at either 30 or 60 minutes to be > 14-15. I put in a referral for neurology. Someone will contact you to schedule the appointment We will schedule an MRI scan the day of your next appointment FACTURING ENGINEERING INTERN FACTURING ENGINEERING INTERN documented in this encounter Ordered Prescriptions Prescription Sig Dispense Quantity Refills Last Filled Start Date End Date dexAMETHasone (DECADRON) 1 mg tablet take 1 mg at 11pm and go to the lab the next morning at 8am to have your blood drawn. 1 tablet 02/22/2023 4 documented in this encounter Progress Notes * Ange Chavez MD - 02/22/2023 1:00 PM CST PATIENT NAME: Jud Crocker : 1990 02/22[birth year]2023 PCP: Daily Cruz MD Referring Physician: Andrzej Lyons MD CHIEF COMPLAINT: Cystic pituitary mass PROBLEM LIST: [...] BMI of 40.0-44.9, adult (HCC) Simple obesity Benign intracranial hypertension Exposure to COVID-19 virus Acute cough Chronic bilateral low back pain Left hip pain Chronic pain of both knees Lumbar degenerative disc disease Chronic pain of both hips Anxiety and depression Reactive airway disease without asthma Prepatellar bursitis of both knees Lumbar spondylosis Fluid retention Leg cramping Well adult exam Other chronic pain Bipolar 2 disorder (CMS/HCC) (HCC) Patellar maltracking, left Plantar fasciitis Localized swelling of left foot High serum c-peptide Chronic pain of multiple joints White matter abnormality on MRI of brain Endometriosis Gastroesophageal reflux disease without esophagitis Allergic reaction Allergic conjunctivitis of both eyes Bulging lumbar disc Acute bacterial sinusitis Persistent asthma without complication Panic attack Elevated blood pressure, situational Thrush, oral Bilateral lower extremity edema Acute bronchitis due to other specified organisms Diplopia Pituitary adenoma (HCC) Moderate persistent asthma with acute exacerbation Lumbar radiculopathy HISTORY OF PRESENT ILLNESS: Jud Crocker is 32 y.o. with history of bipolar disorder, chronic pain, seizures, ADD, obesity, pseudotumor cerebri, and migraines seen in consultation in our [facility] for a [...] pituitary lesion. Patient says she saw an electrical assembly technician once. We have some lab work done between 2015 and 2016 showing a normal prolactin, IGF-1, acth/cortisol and thyroid levels Patient reports her most recent MRI scan was ordered because of headaches. MRI done 12/05 describesa similarly sized 6 mm anterior pituitary nodule (cystic). Patient was thus referred to our Pituitary [facility] Imaging and labs include: Thyroid US 06/02/15: [...] IGF-1 144, free T4 0.83, TSH 1.87, Has continued to have episodes In past saw neurologist Put on seizure medication Continued to have seizures Thought maybe was medication was causing Patient stopped medication 2017, has not had any more seizures +severe and constant headaches Hx of pseudotumor cerebri Has been few years since had treatment for this Says pressure was double normal with LP Was seeing neurooptho Says vision has gotten worse Says glasses don't work Says vision changing with prescription Sometimes clear and then next day doesn't feel Hasn't recently seen eye doctor Has referral for neurooptho Saw regular eye doctor in last year Says allergic to diamox + dizzy/lightheadedness. Feels like looses balance + nausea all the time Has had EGD/colonoscopy okay Was told has some inflammation Sometimes vomits Sometimes Extremely hungry Other times could go a couple of days without eating anything Says has swelling, not explained Has been on water pills in past But was also having worsening lightheadedness so stopped Says gained 20 lbs when stopped, with water fluid Freezing hands and feet Face turns red Hair thinning Easy bruising Muscle weakness all over No sex drive Has asthma/sinus infections Sometimes takes steroids Last took 2 months ago Says recently had menses, lasted one week Had three months when had two periods per month Before that would go a few moths without Past 6 months has had monthly periods Hx of endometriosis Has not seen gynecology regularly Having unprotected intercourse but not necessarily trying to get + increased sweating Thirsty all the time Had miscarriage Has been on medication for HTN in past All other endocrine review of symptoms negative as part pituitary health history form. Family History non-contributory PAST MEDICAL HISTORY: Past Medical History: Diagnosis Date ADHD (attention deficit hyperactivity disorder) Anxiety Arthritis Asthma Brain concussion 2010, 2009 Chronic bronchitis (HCC) Depression Gastric reflux GERD (gastroesophageal reflux disease) PRN tums Hypertension, essential 05/27/2022 IIH (idiopathic intracranial hypertension) Pseudotumor cerebri. reports last spinal tap 2017. currently following with PCP, previously has followed with neuro Irritability Jaundice / outplacement consultant Kidney stone 2019 Low back pain Lymphedema [...] for wheezing, Disp: 6.7 g, Rfl: 0 sodium, potassium & mag sulfates (SUPREP BOWEL KIT) 17.5-3.13-1.6 gram recon soln, MIX 1 BOTTLEWITH WATER, TAKE AT 4PM THE DAY BEFORE PROCEDURE. DRINK 2ND BOTTLE 6 HRS BEFORE ARRIVAL, Disp: , Rfl: gmffmqfghwjko-wvbvccf-zxvjqfyj (EXCEDRIN MIGRAINE) 250-250-65 mg per tablet, Take 1 tablet by mouthevery 6 (six) hours as needed (Patient not taking: Reported on 02/08/2023), Disp: , Rfl: bumetanide (BUMEX) 1 mg tablet, Take 1 tablet (1 mg total) by mouth daily (Patient not taking: Reported on 02/08/2023), Disp: , Rfl: cholecalciferol (VITAMIN D-3) 5,000 unit tablet, Take 0.2 tablets (1,000 Units total) by mouth daily (Patient not taking: Reported on 02/08/2023), Disp: , Rfl: cyclobenzaprine (FLEXERIL) 10 mg tablet, , Disp: , Rfl: dexAMETHasone (DECADRON) 1 mg tablet, take 1 mg at 11pm and go to the lab the next morning at 8am to have your blood drawn., Disp: 1 tablet, Rfl: 0 dicyclomine (BENTYL) 20 mg tablet, Take 1 [...] Reported on02/08/2023), Disp: 30 tablet, Rfl: 3 fexofenadine (ARIANNA) 180 mg tablet, Take 1 tablet (180 mg total) by mouth 2 (two) times a day (Patient not taking: Reported on 02/22/2023), Disp: 180 tablet, Rfl: 3 FLUoxetine (PROzac) 40 mg [...] taking: Reported on 02/08/2023), Disp: , Rfl: methylPREDNISolone (Medrol, Michael,) 4 mg Dosepack, follow package directions (Patient not taking: Reported on 02/22/2023), Disp: 1 packet, Rfl: 0 montelukast (SINGULAIR) 10 mg tablet, TAKE 1 [...] on 02/08/2023), Disp: 454 g, Rfl: 2 FAMILY HISTORY: Family History Problem [...] control/protection: I.U.D. 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 PHYSICAL EXAM: Vitals BP 100/68 Pulse 72 Ht 170.2 cm (5' 7 ) Wt 115.8 kg (255 lb 6.4 oz) BMI 40.00 kg/m?? Gen: NAD HEENT: sclera anicteric, EOMi, PERRLA, normal VF by confrontation Neck: no goiter, no palpable thyroid nodules, no cervical lymphadenopathy, no dorsocervical fat pad, No supraclavicular fullness CV: RRR, nl S1/S2, no m/r/g, no LE edema Lungs: CTA B, no c/w/r Abd: soft, obese, thin pink stretch benites, NT, BS + Skin: moist, no rashes/lesions, normal texture Neuro: no tremors, 2 + patellar reflexes, no proximal muscle weakness LABS: Lab Results Component Value Date HGBA1C 5.4 09/27/2021 Lab Results Component Value Date HDL 65 06/11/2022 LDLCALC 97 06/11/2022 Lab Results Component Value Date CREATININE 0.70 02/01/2023 Lab Results Component Value Date TSH 3.57 06/11/2022 No results found for: THYROGLOBULI , THGABINT No results found for: PROLACTIN , CORTISOL , ACTH , FSH , LH , ESTRADIOL , IGF1 No results found for: TESTOSTERONE , TESTOSTFREE Lab Results Component Value Date CALCIUM 9.2 02/01/2023 Lab Results Component Value Date GLUCOSE 94 02/01/2023 CALCIUM 9.2 02/01/2023 SODIUM 140 02/01/2023 POTASSIUM 4.2 02/01/2023 CO2 24 02/01/2023 CHLORIDE 106 02/01/2023 BUNSER 17 02/01/2023 CREATININE 0.70 02/01/2023 Lab Results Component Value Date ALT 18 02/01/2023 AST 14 02/01/2023 ALKPHOS 103 02/01/2023 BILITOT 0.2 02/01/2023 Lab Results Component Value Date WBC 11.5 (H) 02/01/2023 HGB 13.0 02/01/2023 HCT 40.3 02/01/2023 MCV 89.8 02/01/2023 LABPLAT 350 02/01/2023 IMAGING: I personally reviewed MRI scan dated 12/13/2022. Images show a 6.2 mm hypoenhancing noduleanterior pituitary gland ASSESSMENT: 32 y.o. with hx of multiple medical problems including asthma, chronic sinusitis, migraines, pseudotumor cerebri, bipolar disorder, and chronic pain found to have a cystic pituitary mass on imaging done in 2016 as part of an evaluation for ???episodes?? . The following issues were discussed #Cystic pituitary mass I discussed the normal function of the pituitary and the likely diagnosis of a cystic nonfunctioning pituitary adenoma versus a Rathke's cleft cyst. I discussed the benign nature of these lesions and the very low risk of growth over time, especially since lesion appears to be stable between 2016 and most recent MRI 12/05 based on report) (I do not have prior images to review). I also discussed the risk of growth during but I do not think this would likely be clinically significant since lesion is relatively Patient asking if this could be the cause of her headaches. She certainly has other reasons for headaches including pseudotumor cerebri and migraines I explained that this is rarely indication alone for surgery. She feels comfortable with conservative management. Recommend repeat MRI in 1 year. I recommended that we complete patient's hormonal evaluation as below: Hormonal status Thyroid: check TSH/FT4 (normal 2017) GH: IGF-1 normal 2017, repeat, no signs or symptoms of acromegaly HPA axis: Endorsing some symptoms that could be compatible with adrenal insufficiency including nausea, dizziness Recommend ACTH stimulation test Although clinical suspicion low, recommend screen for Janeth's Disease with low dose dexamethasonesuppression test Gonadal: Menses regular Prolactin normal 2017, repeat #Pseudotumor cerebri/migraines PCP already placed a referral to Neuro-Ophthalmology She is interested in seeing Neurology for migraines, referral placed PLAN: --LDDST: patient to take 1 mg of dexamethasone at 11pm and have an 8am cortisol and dexamethasone level Additional labs ordered to be done at the same time below -high-dose ACTH stimulation test -referred to Neurology for migraine -MRI scan day of next appointment Problem List Rathke's cyst (HCC) Pseudotumor cerebri Relevant Orders Ambulatory referral to Neurology Migraine headache Relevant Orders Ambulatory referral to Neurology Pituitary adenoma (HCC) - Primary Relevant Orders Cortisol Insulin-like growth factor (IGF-1) TSH T4, free Prolactin Dexamethasone Infusion Appointment Request 60 MIN MRI Brain W WO Contrast (Pituitary) RTC 12 months Ange Chavez MD Respiratory Equipment Assistant [facility] Center carpet journeyman and Neurological Surgery Division Endocrinology, Metabolism and Lipid Research [facility] [address] [place] [address], [address] [facility] [id number] [place] [address]. P: [phone] F: [phone] FACTURING ENGINEERING INTERN documented in this encounter Miscellaneous Notes * Addendum Note - Tommy Chew RN - 02/22/2023 1:00 PM CSTAddended by: TOMMY CHEW on: 04/03/2023 10:08 AM Modules accepted: Orders FACTURING ENGINEERING INTERN * Addendum Note - Tommy Chew RN - 02/22/2023 1:00 PM CSTAddended by: TOMMY CHEW on: 04/03/2023 10:08 AM Modules accepted: Orders FACTURING ENGINEERING INTERN * Addendum Note - Tommy Chew RN - 02/22/2023 1:00 PM CSTAddended by: TOMMY CHEW on: 04/03/2023 10:08 AM Modules accepted: Orders FACTURING ENGINEERING INTERN * Addendum Note - Tommy Chew RN - 02/22/2023 1:00 PM CSTAddended by: TOMMY CHEW on: 04/03/2023 10:09 AM Modules accepted: Orders FACTURING ENGINEERING INTERN * Addendum Note - Guille Gonzáles - 02/22/2023 1:00 PM CSTAddended by: GUILLE GONZÁLES on: 04/03/2023 02:32 PM Modules accepted: Orders FACTURING ENGINEERING INTERN documented in this encounter Plan of Treatment Scheduled Orders Name Type Priority Associated Diagnoses Orde r Schedule Cortisol Lab Routine Pituitary adenoma (HCC) Expected: 02/22/2023, Expires: 02/23/2024 Dexamethasone Lab Routine Pituitary adenoma (HCC) Expected: 02/22/2023, Expires: 02/23/2024 Scheduled Referrals Name Type Priority Associated Diagnoses Orde r Schedule Ambulatory referral to Neurology Outpatient Referral Routine Pseudotumor cerebri Intractable chronic migraine without aura and with status migrainosus Expected: 03/08/2023 (Approximate), Expires: 02/23/2024 documented as of this encounter Goals Goal [...] as of this encounter Results * MRI Brain W WO Contrast (Pituitary) (02/02/2024 8:12 AM MANUFACTURING ENGINEERING INTERN) Anatomical Region Laterality Modality Head and Neck N/A Magnetic Resonan ce 02/02/2024 9:28 AM MANUFACTURING ENGINEERING INTERN Impressions 02/02/2024 9:28 AM MANUFACTURING ENGINEERING INTERN Stable since 2022, intrinsically T1 hyperintense 7 mm hypoenhancing nodule along/within the anterior pituitary gland. ??Differential again primarily includes Rathke's cleft cyst versus pituitary microadenoma. Electronically signed by: Marie Leblanc M.D. Narrative 02/02/2024 9:28 AM MANUFACTURING ENGINEERING INTERN EXAMINATION: Magnetic resonance imaging (MRI) of the [...] IMG MRI PROCEDURES F inal Result * Prolactin (04/03/2023 10:20 AM MANUFACTURING ENGINEERING INTERN) [facility] Prolactin 16.8 4.8 - 23.3 ng/mL [facility] Blood 04/03/2023 10:2 0 AM MANUFACTURING ENGINEERING INTERN 04/03/2023 2:38 PM MANUFACTURING ENGINEERING INTERN Ange Chavez MD LAB BLOOD ORDERABLES Final Result Performing Organization Address City/Va Hospital/ZIP Co de Phone Number [facility] Department of [place] [address] * T4, free (04/03/2023 10:20 AM MANUFACTURING ENGINEERING INTERN) [facility] Free T4 1.27 0.90 - 1.70 ng/dL [facility] Blood 04/03/2023 10:2 0 AM MANUFACTURING ENGINEERING INTERN 04/03/2023 2:38 PM MANUFACTURING ENGINEERING INTERN Ange Chavez MD LAB BLOOD ORDERABLES Final Result [facility] of [employer] [address] * TSH (04/03/2023 10:20 AM MANUFACTURING ENGINEERING INTERN) Pathologist [facility] Thyroid Stimulating Hormone 2.03 0.30 - 4.20 mcIUnit/mL [facility] Blood 04/03/2023 10:2 0 AM MANUFACTURING ENGINEERING INTERN 04/03/2023 2:38 PM MANUFACTURING ENGINEERING INTERN us Ange Chavez MD LAB BLOOD ORDERABLES Final Result Performing Organization Address City/State/[facility] Co de Phone Number [facility] [place] [address] * Insulin-like growth factor (IGF-1) (04/03/2023 10:20 AM MANUFACTURING ENGINEERING INTERN) Insulin-like growth factor 1 (IGF-1) 120 60 - 280 ng/mL [facility] Comment: Interpretive Data Carlitos Stage ? Male ? Female ?I ?80-250 ? 80-320 ? II ? 100-450 ?120-450 ??III ? 250-500 ?250-550 ?? IV ? 225-600 ?225-600 ?V ? 225-500 ?180-500 Assay calibrated to WHO and instituted at [facility] 06/2017. References: 1. [employer] IGF-1 Package Insert 2016-11, V 1.0. 2. [employer] IGFMS entry (https://ShopLocket.com/test-catalog/Overview/82934) accessed 06-21-2017. 3. Antonio M, Rk N, Graciela RT et al. J Clin Endocrinol Metab 2014;99:8346-1395. Current interpretive data was last revised on 2017. Testing performed by: [facility] [place] [address] Blood 04/03/2023 10:2 0 AM MANUFACTURING ENGINEERING INTERN 04/03/2023 8:43 PM MANUFACTURING ENGINEERING INTERN us Ange Chavez MD LAB BLOOD ORDERABLES Final Result [facility] [place] [address] documented in this encounter Visit Diagnoses Diagnosis Pituitary adenoma (HCC)- Primary Benign neoplasm of pituitary gland and craniopharyngeal duct (pouch) Rathke's cyst (HCC) Pseudotumor cerebri Benign intracranial hypertension Intractable chronic migraine without aura and with status migrainosus Pituitary adenoma (HCC) Benign neoplasm of pituitary gland and craniopharyngeal duct (pouch) documented in this encounter Historical Medications * This list may reflect changes made after this encounter. sodium, potassium & mag sulfates (SUPREP BOWEL KIT) 17.5-3.13-1.6 gram recon soln MIX 1 BOTTLE WITH WATER, TAKE AT 4PM THE DAY BEFORE PROCEDURE. DRINK 2ND BOTTLE 6 HRS BEFORE ARRIVAL 12/29/2022 05/12/2023 added in this encounter Orders Appointment Requests Count Last Ordered Date Fi rst Ordered Date INFUSION APPT REQUEST 60 MIN 1 02/22/2023 documented in this encounter Additional Health Concerns Infection Onset Date Last Indicated Resolved Time Influenza, adult 02/17/2023 02/17/2023 02/24/2023 3:05 AM MANUFACTURING ENGINEERING INTERN documented as of this encounter Care Teams Wind Development Director Relationship Specialty Start Date End Date Daily Cruz MD PCP - General Family Medicine 03/04/21 documented as of this encounter
--- OUTSIDE RECORDS SUMMARY | 2024-02-21 19:34 | XMS_ITS | Encounter Summary ---
Author Organization [facility] Address [address] [place] [address] Phone Care Team Providers Care Emergency Medical Tech Name Role Phone Daily Cruz MD Primary Care Provider [phone] Encounter Details Date Type Department Care Team (Late st Contact Info) Description 01/16/2023 Telephone [facility] Allergy and Immunology [address] [place] [address] Maria E Marshall MA Social [...] on file Legal Sex Female 3:37 PM OUTREACH REP Gender Identity Female 03/02/2020 4:27 PM OUTREACH REP Sexual Orientation Straight 07/10/2019 11 :13 PM CDT documented as of this encounter Miscellaneous Notes * Telephone Encounter - Maria E Marshall MA - 01/16/2023 5:00 PM CST Called and got patient scheduled for CT-Scan on 01/19/23 at 7:40AM at [facility] and Patient also Confirmed Appointment CANDELARIO CAMACHO 01/16/23 at 5:02PM EACH REP documented in this encounter Plan of Treatment [...] on filedocumented in this encounter Care Teams Emergency Medical Tech Relationship Specialty Start Date End Date Daily Cruz MD PCP - General Family Medicine 03/04/21 documented as of this encounter
--- OUTSIDE RECORDS SUMMARY | 2024-02-21 19:34 | XMS_ITS | Encounter Summary ---
Author Organization [facility] Healthcare Address [address] [place] [address] Care Team Providers Care Quality Management Nurse Name Role Phone Daily Cruz MD Primary Care Provider [phone] Savannah Holt Unavailable Ange Chavez MD Unavailable [phone] Reason for Visit * Reason Comments Hospital Follow Up Encounter Details Date Type Department Care Team (Late st Contact Info) Description 06/07/2023 4:00 PM CDT Telemedicine [facility] at [place] [address] [facility] [address] [place] [address] Alecia Shaver, OSCAR [address] [facility] [address] [address] New daily persistent headache (Primary Dx); Neck pain Social History Tobacco Use Types Packs/Day [...] on file Legal Sex Female 3:37 PM [employer]UL [employer]RAKEMAN Gender Identity Female 03/02/2020 4:27 PM HAUL CANE BRAKEMAN Sexual Orientation Straight 07/10/2019 11 :13 PM CDT documented as of this encounter Ordered Prescriptions Prescription Sig Dispense Quantity Refills Last Filled Start Date End Date Nurtec ODT tablet,disintegrat ingIndications:New daily persistent headache Take 1 tablet (75 mg total) by mouth every other day 06/08/2023 cyclobenzaprine (FLEXERIL) 5 mg tabletIndications: Neck pain Take 1 tablet (5 mg total) by mouth 3 (three) times a day as needed for muscle spasms 30 tablet 06/08/2023 09/26/2023 documented in this encounter Progress Notes * Alecia Shaver, OSCAR - 06/07/2023 4:00 PM CDT Images from the original note were not included. Transition of Care Visit Patient ID: Jud Crocker is a 32 y.o. female. Assessment/Plan Diagnoses and all orders for this visit: New daily persistent headache (Primary) Comments: Uncontrolled. [facility] Start Nurtec every other day and Zavzpret PRN for acute headaches. Follow up in 2 weeks to reas Orders: - Nurtec ODT tablet,disintegrating; Take 1 tablet (75 mg total) by mouth every other day Neck pain Comments: Uncontrolled. Will obtain records from [facility]. Start flexeril as needed. Orders: - cyclobenzaprine (FLEXERIL) 5 mg tablet; Take 1 tablet (5 mg total) by mouth 3 (three) times a dayas needed for muscle spasms Patient is seen in the office today for a transition of care visit, after a recent hospitalization.Initial phone contact was confirmed for the transition of care within two business days after discharge, and communication regarding aspects of care, education and support with activities of daily living is documented in the chart. Admission Date: 05/30/23 Discharge Date: 06/05/23 Date of Initial Post-discharge Interactive Contact: 06/05/23 Complexity of Medical Decision Making: moderate Diagnoses and management options were considered. Medical records, diagnostic tests and other hospital data was reviewed. Subjective/Objective Chief Complaint Hospital Follow Up This was a telemedicine visit with Jud Arias Debraanthonyevonne alone which took place via real-time video connection. During the visit, I was located at home and the patient was located at home in the state of [place]. The patient visit started at 1623 and ended at 1648. I have explained [...] a telephone or video visit during the COVID-19 public health emergency to the patient. After being given an opportunity to ask questions about and discuss this type of visit, the patient verbally consented to proceeding with the telephone/video visit.The patient understands that this service replaces an office visit and they may be billed and/or responsible for any applicable copayments. HPI: 32 year-old female presents via telemedicine for hospital follow up. [facility]. She states that she had a headache for the past 3 weeks. She is still having the headache. She states that it feels like a pressure sensation throughout her head. She feels the pain begins in her neck and radiates up into her forehead. She states thatshe had a MRI of cervical, thoracic, and lumbar spine, brain MRI, and spinal tap and everything came back unremarkable. I am unable to see there hospital notes and imaging results. I request the records to review these tests. She states that she was started on depakote, steroids, and Nurtec and nothing seemed to help. The headaches significantly improve when she lies flat. The headache started about 12 hours after she went to a new chiropractor. She is unsure if this is related. She has hx of migraines and stopped taking all of her medications a few months ago due to feeling like she was on way too many medications and didn't know what was actually helping. She is currently only taking albuterol as needed. Allergies: Allergies Allergen Reactions Acetazolamide Swollen tongue Tongue [...] SEIZURE ACTIVITY Oxycodone-Acetaminophen Nausea And Vomiting Current Medications: Outpatient Encounter Medications as of 06/07/2023 Medication Sig Dispense Refill albuterol 2.5 mg /3 mL (0.083 %) nebulizer solution Take 3 mL (2.5 mg total) by nebulization every 4 (four) hours as needed for wheezing 180 mL 0 albuterol HFA (PROVENTIL HFA,VENTOLIN HFA,PROAIR HFA) 90 mcg/actuation inhaler Inhale 2 puffs every4 (four) hours as needed for wheezing 6.7 g 0 cyclobenzaprine (FLEXERIL) 5 mg tablet Take 1 tablet (5 mg total) by mouth 3 (three) times a day asneeded for muscle spasms 30 tablet 0 Nurtec ODT tablet,disintegrating Take 1 tablet (75 mg total) by mouth every other day [DISCONTINUED] LORazepam (ATIVAN) 0.5 mg tablet (Patient not taking: Reported on 06/07/2023) [DISCONTINUED] phentermine (ADIPEX-P) 37.5 mg tablet Take 1 tablet (37.5 mg total) by mouth daily before breakfast (Patient not taking: Reported on 06/07/2023) 30 tablet 2 No facility-administered encounter medications on file as of 06/07/2023. I, Alecia M. Crescent, ENERGY TRADING ANALYST have personally reviewed pertinent Hospital/ER data including [employer] [facility] Everywhere if available. This patient's discharge medication list has been reviewed and reconciled with her medication list in the office chart and has also been reviewed with patient and/or caregiver. I have noted any changes. Past Medical History: Diagnosis Date ADHD (attention deficit hyperactivity disorder) Anxiety Arthritis Asthma Brain concussion 2010, 2009 Chronic bronchitis (HCC) Depression Gastric reflux GERD (gastroesophageal reflux disease) PRN tums Hypertension, essential 05/27/2022 IIH (idiopathic intracranial hypertension) Pseudotumor cerebri. reports last spinal tap 2017. currently following with PCP, previously has followed with neuro Irritability Jaundice / [facility] consultant Kidney stone 2019 Low back pain [...] albuterol use with URI. Seasonal allergies Seizure ([facility]) 04/25/2017 Seizures ([facility]) off medication since 2018 with [...] NASAL ENDOSCOPY TONSILLECTOMY WISDOM TOOTH EXTRACTION Family History: Family History Problem Relation Age of Onset [...] Depression Sister Anesthesia problems Neg Hx Social History: Social History Tobacco Use Smoking status: Never Passive exposure: Past Smokeless tobacco: Never Substance and Sexual Activity Drug use: Not Currently Types: Alcohol Comment: ~3 drinks/month Sexual activity: Yes Partners: Male control/protection: I.U.D. Alcohol Use: Not At Risk (06/07/2023) AUDIT-C Frequency of Alcohol Consumption: Monthly or less Average Number of Drinks: 1 or 2 Frequency of Binge Drinking: Never Review of Systems: Review of Systems Constitutional: Positive for fatigue. Negative for fever. HENT: Negative for congestion. Respiratory: Negative for cough, chest tightness, shortness of breath and wheezing. Cardiovascular: Positive for leg swelling. Negative for chest pain and palpitations. Gastrointestinal: Negative for abdominal pain, constipation, diarrhea, nausea and vomiting. Musculoskeletal: Positive for neck pain. Negative for arthralgias. Neurological: Positive for headaches. Psychiatric/Behavioral: Negative for dysphoric mood, sleep disturbance and suicidal ideas. The patient is nervous/anxious. Physical Exam: There were no vitals taken for this visit. Physical Exam Vitals reviewed. Constitutional: Appearance: Normal appearance. Neurological: Mental Status: She is alert and oriented to person, place, and time. Psychiatric: Mood and Affect: Mood normal. Behavior: Behavior normal. Metabolic Lab Results: There is no height or weight on file to calculate BMI. Glucose: Glucose Date Value Ref Range Status 05/25/2023 96 70 - 199 mg/dL Final Comment: Interpretive Data Fasting glucose >/= 126 mg/dl is diagnostic for diabetes. Fasting is defined as no caloric intake [...] was last revised 2022. Testing performed by: [facility], [address] [place] [address], [place]., [address] Lab Results Component Value Date WBC 8.4 05/25/2023 HGB 13.6 05/25/2023 HCT 40.0 05/25/2023 MCV 86.8 05/25/2023 Lab Results Component Value Date GLUCOSE 96 05/25/2023 CALCIUM 8.0 (L) 05/25/2023 SODIUM 140 05/25/2023 POTASSIUM 4.5 05/25/2023 CO2 25 05/25/2023 CHLORIDE 105 05/25/2023 BUNSER 16 05/25/2023 CREATININE 0.60 05/25/2023 Major Procedures and Tests: Major Procedures and Tests Performed During Inpatient Stay: Coordination of Home care services and follow-up with specialist appointments confirmed. Instructions have been provided to and reviewed with the patient/resident care spec prior to discharge. Return in about 2 weeks (around 06/21/2023) for Recheck. Alecia Shaver NP documented in this encounter Plan of Treatment [...] as of this encounter Visit Diagnoses Diagnosis New daily persistent headache- Primary Neck pain Cervicalgia documented in this encounter Discontinued Medications Medication Sig Discontinue Reason Start Date End Da te phentermine (ADIPEX-P) 37.5 mg tabletIndications:Morbi d obesity with BMI of 40.0-44.9, adult (HCC) Take 1 tablet (37.5 mg total) by mouth daily before breakfast Therapy completed 05/12/2023 06/08/2023 documented as of this encounter Historical Medications * This list may reflect changes made after this encounter. Medication Sig Dispense Quantity Refills Last Filled Start D ate End Date LORazepam (ATIVAN) 0.5 mg tablet 05/31/2023 06/08/2023 added in this encounter Care Teams Quality Management Nurse Relationship Specialty Start Date End Date Daily Cruz MD PCP - General Family Medicine 03/04/21 Savannah Holt PA [address] [facility] [address] [address] Physician Edging Machine Feeder Neurology 06/07/23 Ange Chavez MD [address] [facility] [address] [address] Consulting Physician Endocrinology 06/07/23 documented as of this encounter
--- OUTSIDE RECORDS SUMMARY | 2024-02-21 19:34 | XMS_ITS | Encounter Summary ---
Author Organization [facility] Healthcare Address [address] [place] [address] Care Team Providers Care Television Parts Tester Name Role Phone Daily Cruz MD Primary Care Provider [phone] Reason for Visit * Reason Onset Date Comments Additional Services Or Orders 02/09/2023 Encounter Details Date Type Department Care Team (Late st Contact Info) Description 02/09/2023 Telephone [facility] Medical Group Family Medicine at [facility] [address] [place] [phone] Daily Cruz MD [address] [place] [phone] Additional Services Or Orders Social History Tobacco Use Types Packs/Day Years [...] on file Legal Sex Female 3:37 PM FIRER DIESEL LOCOMOTIVE Gender Identity Female 03/02/2020 4:27 PM FIRER DIESEL LOCOMOTIVE Sexual Orientation Straight 07/10/2019 11 :13 PM CDT documented as of this encounter Miscellaneous Notes * Telephone Encounter - Alexanedr Hancock MA - 05/06/2023 2:31 PM CDT Pt aware * Telephone Encounter - Alexander Hancock MA - 03/01/2023 4:18 PM CST Pt seen R DIESEL LOCOMOTIVE * Telephone Encounter - Lisa Zurita MA - 02/24/2023 1:19 PM CST Left message to CB R DIESEL LOCOMOTIVE * Telephone Encounter - Lisa Zurita MA - 02/24/2023 9:03 AM CST G6PD is the only lab @ [facility], rest are at [facility]. I cannot find the insulin lab, I will call [facility] to add on R DIESEL LOCOMOTIVE * Telephone Encounter - Lisa Zurita MA - 02/24/2023 8:45 AM CST ordered R DIESEL LOCOMOTIVE * Telephone Encounter - Daily Cruz MD - 02/24/2023 8:32 AM FIRER DIESEL LOCOMOTIVE Please order these labs for patient R DIESEL LOCOMOTIVE * Telephone Encounter - Kylah Tejada - 02/10/2023 7:13 AM CST Please advise R DIESEL LOCOMOTIVE * Telephone Encounter - Jud Garrison - 02/09/2023 1:46 PM CST Additional Services or Orders Type of Service Requested:Labs Reason for Request (e.g. condition/symptom, date of COVID exposure if applicable): Jessenia Link NP -suggested to have this panel done to rule out deficiencies Details Regarding Additional Services (e.g. type of home health, type of equipment, type of test, etc.): BATSHEVA w/ Reflex (14952), Ferritin (00252), G6PD Deficiency 91717, HGB A1C 06347, Homocysteine 58264, Insulin 44279, Iron Panel 32402, Vitamin B12 08492, Vitamin D 06315, Lyme Disease AB (IGG, IGM)27639, GGT 69482, HSCRP 22604, TSH 87318, T33 73021, T4 Total 53295, TPO/TPA 35183, Estradiol free lc/ms/ms 29157, Testosterone Free 70668, Testosterone Total 15928, Progesterone 59054, FSH 42780, [id number], Epseein-Epstein AB Panel 86378 & 8665 Where will services be performed? (if outside of the practice, facility name, address, phone/fax offacility): [facility] or [facility] Additional Comments: Patient requesting that Dr. Calero place these lab orders so that they can be ran through insurance. Patient is also wanting to have labs done before 02/12 since she has met her deductible for the year. Patient provided specific labs and codes for requested panel. Does message need to be routed? Yes-Action Needed R DIESEL LOCOMOTIVE documented in this encounter Plan of Treatment Scheduled Orders Name Type Priority Associated Diagnoses Orde r Schedule G6PD qualitative with reflex to quantitative Lab Routine Pituitary adenoma (HCC) Dysfunctional uterine bleeding Hypertension, essential Pure hypercholesterolemia Low serum aspartate aminotransferase (AST) Diplopia Expected: 02/24/2023, Expires: 02/25/2024 documented as of this encounter Goals Goal [...] Procedure Name Priority Date/Time Associated Diagnosis Comments TSH Routine 04/12/2023 7:33 AM FIRER DIESEL LOCOMOTIVE Pituitary adenoma (HCC) Dysfunctional uterine bleeding Hypertension, essential Pure hypercholesterolemia Low serum aspartate aminotransferase (AST) Diplopia BATSHEVA QUALITATIVE WITH REFLEX TO BATSHEVA QUANTITATIVE Routine 04/12/2023 7:27 AM FIRER DIESEL LOCOMOTIVE Pituitary adenoma (HCC) Dysfunctional uterine bleeding Hypertension, essential Pure hypercholesterolemia Low serum aspartate aminotransferase (AST) Diplopia ESTRADIOL, FREE Routine 04/12/2023 7:27 AM FIRER DIESEL LOCOMOTIVE Pituitary adenoma (HCC) Dysfunctional uterine bleeding Hypertension, essential Pure hypercholesterolemia Low serum aspartate aminotransferase (AST) Diplopia IRON PROFILE W/ IBC Routine 04/12/2023 7 :27 AM FIRER DIESEL LOCOMOTIVE Pituitary adenoma (HCC) Dysfunctional uterine bleeding Hypertension, essential Pure hypercholesterolemia Low serum aspartate aminotransferase (AST) Diplopia LOAN-EPSTEIN VIRUS VCA ANTIBODY PANEL Routine 04/12/2023 7:27 AM FIRER DIESEL LOCOMOTIVE Pituitary adenoma (HCC) Dysfunctional uterine bleeding Hypertension, essential Pure hypercholesterolemia Low serum aspartate aminotransferase (AST) Diplopia THYROID PEROXIDASE ANTIBODY Routine 04/12/2023 7:27 AM FIRER DIESEL LOCOMOTIVE Pituitary adenoma (HCC) Dysfunctional uterine bleeding Hypertension, essential Pure hypercholesterolemia Low serum aspartate aminotransferase (AST) Diplopia LYME DISEASE ANTIBODY (IGG) Routine 04/12/2023 7:27 AM FIRER DIESEL LOCOMOTIVE Pituitary adenoma (HCC) Dysfunctional uterine bleeding Hypertension, essential Pure hypercholesterolemia Low serum aspartate aminotransferase (AST) Diplopia VITAMIN D 25 HYDROXY Routine 04/12/2023 7:27 AM FIRER DIESEL LOCOMOTIVE Pituitary adenoma (HCC) Dysfunctional uterine bleeding Hypertension, essential Pure hypercholesterolemia Low serum aspartate aminotransferase (AST) Diplopia PROGESTERONE Routine 04/12/2023 7:27 AM FIRER DIESEL LOCOMOTIVE Pituitary adenoma (HCC) Dysfunctional uterine bleeding Hypertension, essential Pure hypercholesterolemia Low serum aspartate aminotransferase (AST) Diplopia TESTOSTERONE, TOTAL AND FREE, SERUM Routine 04/12/2023 7:27 AM FIRER DIESEL LOCOMOTIVE Pituitary adenoma (HCC) Dysfunctional uterine bleeding Hypertension, essential Pure hypercholesterolemia Low serum aspartate aminotransferase (AST) Diplopia CRP, HIGH SENSITIVITY Routine 04/12/2023 7:27 AM FIRER DIESEL LOCOMOTIVE Pituitary adenoma (HCC) Dysfunctional uterine bleeding Hypertension, essential Pure hypercholesterolemia Low serum aspartate aminotransferase (AST) Diplopia T3, FREE Routine 04/12/2023 7:27 AM FIRER DIESEL LOCOMOTIVE Pituitary adenoma (HCC) Dysfunctional uterine bleeding Hypertension, essential Pure hypercholesterolemia Low serum aspartate aminotransferase (AST) Diplopia HOMOCYSTEINE Routine 04/12/2023 7:27 AM FIRER DIESEL LOCOMOTIVE Pituitary adenoma (HCC) Dysfunctional uterine bleeding Hypertension, essential Pure hypercholesterolemia Low serum aspartate aminotransferase (AST) Diplopia HEMOGLOBIN A1C Routine 04/12/2023 7:27 AM FIRER DIESEL LOCOMOTIVE Pituitary adenoma (HCC) Dysfunctional uterine bleeding Hypertension, essential Pure hypercholesterolemia Low serum aspartate aminotransferase (AST) Diplopia LUTEINIZING HORMONE (LH) Routine 04/12/2023 7:27 AM FIRER DIESEL LOCOMOTIVE Pituitary adenoma (HCC) Dysfunctional uterine bleeding Hypertension, essential Pure hypercholesterolemia Low serum aspartate aminotransferase (AST) Diplopia FOLLICLE STIMULATING HORMONE Routine 04/12/2023 7:27 AM FIRER DIESEL LOCOMOTIVE Pituitary adenoma (HCC) Dysfunctional uterine bleeding Hypertension, essential Pure hypercholesterolemia Low serum aspartate aminotransferase (AST) Diplopia GAMMA GT Routine 04/12/2023 7:27 AM FIRER DIESEL LOCOMOTIVE Pituitary adenoma (HCC) Dysfunctional uterine bleeding Hypertension, essential Pure hypercholesterolemia Low serum aspartate aminotransferase (AST) Diplopia FERRITIN Routine 04/12/2023 7:27 AM FIRER DIESEL LOCOMOTIVE Pituitary adenoma (HCC) Dysfunctional uterine bleeding Hypertension, essential Pure hypercholesterolemia Low serum aspartate aminotransferase (AST) Diplopia VITAMIN B12 Routine 04/12/2023 7:27 AM FIRER DIESEL LOCOMOTIVE Pituitary adenoma (HCC) Dysfunctional uterine bleeding Hypertension, essential Pure hypercholesterolemia Low serum aspartate aminotransferase (AST) Diplopia documented in this encounter Results * TSH (04/12/2023 7:33 AM FIRER DIESEL LOCOMOTIVE) TSH 3.38 mIU/L [facility] Comment: ?Reference Range ?> or = 20 Years ??0.40-4.50 ? Ranges ?First trimester ?0.26-2.66 ?Second trimester ?? 0.55-2.73 ?Third trimester ?0.43-2.91 Blood 04/12/2023 7:33 AM FIRER DIESEL LOCOMOTIVE 04/12/2023 7:34 AM FIRER DIESEL LOCOMOTIVE Narrative [facility] - 04/12/2023 7:32 PM FIRER DIESEL LOCOMOTIVE FASTING:YES FASTING: YES Daily Cruz MD LAB BLOOD ORDERABLES Karen prater Result [facility] [address] [place] [address] * (ABNORMAL) ESTRADIOL, FREE (04/12/2023 7:27 AM FIRER DIESEL LOCOMOTIVE) Estradiol, free 9.10 pg/mL [facility], Comment: Female Reference Ranges for Estradiol, Free (pg/mL): ??Follicular Stage: ??0.43-5.03 ??Luteal Stage: ?0.40-5.55 ??Postmenopausal: ?< or = 0.38 Estradiol 560(H) pg/mL [facility], Comment: Female Reference Ranges for Estradiol, Ultrasensitive (pg/mL): ??Follicular Phase: ? 39-375 ??Luteal Phase: ? 48-440 ??Postmenopausal Phase: < or = 10 This test was developed and its analytical performance characteristics have been determined by [facility]. It has not been cleared or approved by FDA. This assay has been validated pursuant to the CLIA regulations and is used for clinical purposes. Blood 04/12/2023 7:2 7 AM FIRER DIESEL LOCOMOTIVE 04/12/2023 7:32 AM FIRER DIESEL LOCOMOTIVE Narrative [facility] - 04/20/2023 8:13 PM FIRER DIESEL LOCOMOTIVE FASTING:YES FASTING: YES Daily Cruz MD LAB BLOOD ORDERABLES Karen prater Result [facility], [address] [place] [address] * Testosterone, Total and Free, Serum (04/12/2023 7:27 AM FIRER DIESEL LOCOMOTIVE) [facility] Testosterone 29 2 - 45 ng/dL [facility] Comment: For additional information, please refer to https://education.VisuMotion.S[employer]/faq/FQP407 (This link is being provided for informational/educational purposes only.) (Note) This test was developed and its analytical performance characteristics have been determined by [facility]. It has not been cleared or approved by the FDA. This assay has been validated pursuant to the CLIA regulations and is used for clinical purposes. Testosterone, free 1.5 0.1 - 6.4 pg/mL [facility] Comment: (Note) This test was developed and its analytical performance characteristics have been determined by [employer]. It has not been cleared or approved by the FDA. This assay has been validated pursuant to the CLIA regulations and is used for clinical purposes. [facility] [address] [address],[address] [facility] [address] Nestor Gilliland MD Sex hormone binding globulin 89.5 17 - 124 nmol/L [facility] Blood 04/12/2023 7:27 AM FIRER DIESEL LOCOMOTIVE 04/12/2023 7:32 AM FIRER DIESEL LOCOMOTIVE Narrative [facility] - 04/20/2023 8:13 PM FIRER DIESEL LOCOMOTIVE FASTING:YES FASTING: YES us Daily Cruz MD LAB BLOOD ORDERABLES Karen prater Result [facility] [address] [facility] [address], [address] [place] [address] * (ABNORMAL) Loan-Epstein virus (EBV) antibody panel Blood (04/12/2023 7:27 AM FIRER DIESEL LOCOMOTIVE) EBV VCA IgM <36.00 U/mL [facility] Comment: ?U/mL ?Interpretation ?---- ?<36.00 ?Negative ?36.00-43.99 ? Equivocal ?>43.99 ?Positive EBV VCA IgG 178.00(H) U/mL [facility] Comment: ? U/mL ? Interpretation ? ---- ? <18.00 ? Negative ? 18.00-21.99 ?Equivocal ? >21.99 ? Positive EBV nuclear Ab 437.00(H) U/mL [facility] Comment: ? U/mL ? Interpretation ? ---- ? <18.00 ? Negative ? 18.00-21.99 ?Equivocal ? >21.99 ? Positive EBV Ab interp [facility] Comment: Suggestive of a past Loan-Epstein virus infection. In infants, a similar pattern may occur as a result of passive maternal transfer of antibody. Blood 04/12/2023 7:27 AM FIRER DIESEL LOCOMOTIVE 04/12/2023 7:32 AM FIRER DIESEL LOCOMOTIVE Narrative [facility] - 04/20/2023 8:13 PM FIRER DIESEL LOCOMOTIVE FASTING:YES FASTING: YES Daily Cruz MD LAB MICROBIOLOGY - GENERA L ORDERABLES Final Result Performing Organization Address [facility] de Phone Number [facility] [address] [place] [address] * LH (04/12/2023 7:27 AM FIRER DIESEL LOCOMOTIVE) Pathologist [facility] LH 6.8 mIU/mL [facility] Comment: ?Reference Range Follicular Phase ??1.9-12.5 Mid-Cycle Peak ?8.7-76.3 Luteal Phase ?0.5-16.9 Postmenopausal ?10.0-54.7 Blood 04/12/2023 7:27 AM FIRER DIESEL LOCOMOTIVE 04/12/2023 7:32 AM FIRER DIESEL LOCOMOTIVE Narrative [facility] - 04/20/2023 8:13 PM FIRER DIESEL LOCOMOTIVE FASTING:YES FASTING: YES Daily Cruz MD LAB BLOOD ORDERABLES Karen l Result Performing Organization Address [facility] de Phone Number [facility] [address] [place] [address] * Follicle stimulating hormone (04/12/2023 7:27 AM FIRER DIESEL LOCOMOTIVE) FSH 6.4 mIU/mL [facility] Comment: ?Reference Range ? Follicular Phase ? 2.5-10.2 ? Mid-cycle Peak ? 3.1-17.7 ? Luteal Phase ? 1.5- 9.1 ? Postmenopausal ? 23.0-116.3 ? Blood 04/12/2023 7:27 AM FIRER DIESEL LOCOMOTIVE 04/12/2023 7:32 AM FIRER DIESEL LOCOMOTIVE Narrative [facility] - 04/20/2023 8:13 PM FIRER DIESEL LOCOMOTIVE FASTING:YES FASTING: YES Daily Cruz MD LAB BLOOD ORDERABLES Karen prater Result [facility] [address] [place] [address] * Progesterone (04/12/2023 7:27 AM FIRER DIESEL LOCOMOTIVE) Pathologist [facility] Progesterone 1.0 ng/mL [facility] Comment: ?Reference Ranges ? Female ?Follicular Phase ? < 1.0 ?Luteal Phase ?2.6-21.5 ?Post menopausal ?< 0.5 ?1st Trimester ? 4.1-34.0 ?2nd Trimester ?24.0-76.0 ?3rd Trimester ?? 52.0-302.0 Blood 04/12/2023 7:27 AM FIRER DIESEL LOCOMOTIVE 04/12/2023 7:32 AM FIRER DIESEL LOCOMOTIVE Narrative [facility] - 04/20/2023 8:13 PM FIRER DIESEL LOCOMOTIVE FASTING:YES FASTING: YES Daily Cruz MD LAB BLOOD ORDERABLES Karen l Result Performing Organization Address [facility] Co de Phone Number [facility] [address] [place] [address] * Thyroid peroxidase antibody (TPO) (04/12/2023 7:27 AM FIRER DIESEL LOCOMOTIVE) Thyroperoxidase ab <1 <9 IU/mL [facility] Blood 04/12/2023 7:27 AM FIRER DIESEL LOCOMOTIVE 04/12/2023 7:32 AM FIRER DIESEL LOCOMOTIVE Narrative [facility] - 04/20/2023 8:13 PM FIRER DIESEL LOCOMOTIVE FASTING:YES FASTING: YES Daily Cruz MD LAB BLOOD ORDERABLES Karen l Result Performing Organization Address [facility] de Phone Number [facility] [address] [place] [address] * T3, free (04/12/2023 7:27 AM FIRER DIESEL LOCOMOTIVE) Free T3 2.9 2.3 - 4.2 pg/mL [facility] Blood 04/12/2023 7:27 AM FIRER DIESEL LOCOMOTIVE 04/12/2023 7:32 AM FIRER DIESEL LOCOMOTIVE Narrative [facility] - 04/20/2023 8:13 PM FIRER DIESEL LOCOMOTIVE FASTING:YES FASTING: YES Daily Cruz MD LAB BLOOD ORDERABLES Karen l Result Performing Organization Address [facility] Co de Phone Number [facility] [address] [address] [address] * (ABNORMAL) CRP (cardiac risk) (04/12/2023 7:27 AM FIRER DIESEL LOCOMOTIVE) hsCRP >10.0(H) mg/L [facility] Comment: Reference Range Optimal <1.0 Karime JEAN-BAPTISTE et al. Endocr Pract.2017;23(Suppl 2):1-87. For ages >17 Years: hs-CRP mg/L ??Risk According to AHA/CDC Guidelines <1.0 ? Lower relative cardiovascular risk. 1.0-3.0 ?Average relative cardiovascular risk. 3.1-10.0 ? Higher relative cardiovascular risk. ? Consider retesting in 1 to 2 weeks to ? exclude a benign transient elevation ? in the baseline CRP value secondary ? to infection or inflammation. >10.0 ?Persistent elevation, upon retesting, ? may be associated with infection and ? inflammation. Blood 04/12/2023 7:27 AM FIRER DIESEL LOCOMOTIVE 04/12/2023 7:32 AM FIRER DIESEL LOCOMOTIVE Narrative [facility] - 04/20/2023 8:13 PM FIRER DIESEL LOCOMOTIVE FASTING:YES FASTING: YES Daily Cruz MD LAB BLOOD ORDERABLES Karen l Result [facility] [address] [address] [address] * Gamma GT (04/12/2023 7:27 AM FIRER DIESEL LOCOMOTIVE) GGT 10 3 - 50 U/L [facility] Blood 04/12/2023 7:27 AM FIRER DIESEL LOCOMOTIVE 04/12/2023 7:32 AM FIRER DIESEL LOCOMOTIVE Narrative [facility] - 04/20/2023 8:13 PM FIRER DIESEL LOCOMOTIVE FASTING:YES FASTING: YES Daily Cruz MD LAB BLOOD ORDERABLES Karen l Result [facility] [address] [place] [address] * Lyme Disease Antibody (IgG) (04/12/2023 7:27 AM FIRER DIESEL LOCOMOTIVE) [facility] Lyme ab, IgG, Western blot, quant NEGATIVE NEGATIVE [facility] Lyme ab, 18kD bands detected NON-REACTIVE [facility] Lyme ab, 23kD bands detected NON-REACTIVE [facility] Lyme ab, 28kD bands detected NON-REACTIVE [facility] Lyme ab, 30kD bands detected NON-REACTIVE [facility] Lyme ab, 39kD bands detected NON-REACTIVE [facility] Lyme ab, 41kD bands detected NON-REACTIVE [facility] Lyme ab, 45kD bands detected NON-REACTIVE [facility] Lyme ab, 58kD bands detected NON-REACTIVE [facility] Lyme ab, 66kD bands detected NON-REACTIVE [facility] Lyme ab, 93kD bands detected NON-REACTIVE [facility] Comment: As per CDC criteria, a Lyme disease IgG immunoblot must show reactivity to at least 5 of 10 specific borrelial proteins to be considered positive. Although considered negative, reactivity to fewer borrelial proteins may indicate recent B. burgdorferi infection and warrant testing of a later sample. In rare instances, reactivity may represent antibodies induced by exposure to other spirochetes. Lyme immunoblot testing should only be performed on samples from patients who have had a Positive or Equivocal result in a screening assay. Blood 04/12/2023 7:27 AM FIRER DIESEL LOCOMOTIVE 04/12/2023 7:32 AM FIRER DIESEL LOCOMOTIVE Narrative [facility] - 04/20/2023 8:13 PM FIRER DIESEL LOCOMOTIVE FASTING:YES FASTING: YES Daily Cruz MD LAB BLOOD ORDERABLES Karen l Result [facility] [address] [address] * (ABNORMAL) Vitamin D 25 hydroxy (04/12/2023 7:27 AM FIRER DIESEL LOCOMOTIVE) Pathologist [facility] Vitamin D 25-OH 21(L) 30 - 100 ng/mL [facility] Comment: Vitamin D Status ? 25-OH Vitamin D: Deficiency: ?<20 ng/mL Insufficiency: ? 20 - 29 ng/mL Optimal: ? > or = 30 ng/mL For 25-OH Vitamin D testing on patients on D2-supplementation and patients for whom quantitation of D2 and D3 fractions is required, the [facility](TM) 25-OH VIT D, (D2,D3), LC/MS/MS is recommended: order code 54115 (patients >2yrs). See Note 1 Note 1 For additional information, please refer to http://education.Medtric [employer]otech/faq/CUE304 (This link is being provided for informational/ educational purposes only.) Blood 04/12/2023 7:27 AM FIRER DIESEL LOCOMOTIVE 04/12/2023 7:32 AM FIRER DIESEL LOCOMOTIVE Narrative [facility] - 04/20/2023 8:13 PM FIRER DIESEL LOCOMOTIVE FASTING:YES FASTING: YES us Daily Cruz MD LAB BLOOD ORDERABLES Karen josi Result [facility] [address] [facility] [place] [address] * Vitamin B12 (04/12/2023 7:27 AM FIRER DIESEL LOCOMOTIVE) [facility] Vitamin B12 339 200 - 1,100 pg/mL [facility] Comment: Please Note: Although the reference range for vitamin B12 is 200-1100 pg/mL, it has been reported that between 5 and 10% of patients with values between 200 and 400 pg/mL may experience neuropsychiatric and hematologic abnormalities due to occult B12 deficiency; less than 1% of patients with values above 400 pg/mL will have symptoms. Blood 04/12/2023 7:27 AM FIRER DIESEL LOCOMOTIVE 04/12/2023 7:32 AM FIRER DIESEL LOCOMOTIVE Narrative [facility] - 04/20/2023 8:13 PM FIRER DIESEL LOCOMOTIVE FASTING:YES FASTING: YES Result [facility] Daily Cruz MD LAB BLOOD ORDERABLES Karen l Result Performing Organization Address [facility] de Phone Number [facility] [address] [place] [address] * Iron profile w/ IBC (04/12/2023 7:27 AM FIRER DIESEL LOCOMOTIVE) Iron 56 40 - 190 mcg/dL [facility] TIBC 360 250 - 450 mcg/dL (calc) [facility] Iron saturation 16 16 - 45 % (calc) [facility] Blood 04/12/2023 7:27 AM FIRER DIESEL LOCOMOTIVE 04/12/2023 7:32 AM FIRER DIESEL LOCOMOTIVE Narrative [facility] - 04/20/2023 8:13 PM FIRER DIESEL LOCOMOTIVE FASTING:YES FASTING: YES Result [facility] Daily Cruz MD LAB BLOOD ORDERABLES Karen l Result Performing Organization Address [facility] de Phone Number [facility] [address] [place] [address] * Homocysteine (04/12/2023 7:27 AM FIRER DIESEL LOCOMOTIVE) Homocysteine 6.1 <10.4 umol/L [facility] Comment: Homocysteine is increased by functional deficiency of folate or vitamin B12. Testing for methylmalonic acid differentiates between these deficiencies. Other causes of increased homocysteine include renal failure, folate antagonists such as methotrexate and phenytoin, and exposure to nitrous oxide. Crescencio Arias, et al., [employer] Expert Med. 1999;131(5):331-9. Blood 04/12/2023 7:27 AM FIRER DIESEL LOCOMOTIVE 04/12/2023 7:32 AM FIRER DIESEL LOCOMOTIVE Narrative [facility] - 04/20/2023 8:13 PM FIRER DIESEL LOCOMOTIVE FASTING:YES FASTING: YES Daily Cruz MD LAB BLOOD ORDERABLES Karen l Result Performing Organization Address [facility]/ZIP Co de Phone Number [facility] [address] [address] [address] * Hemoglobin A1c (04/12/2023 7:27 AM FIRER DIESEL LOCOMOTIVE) Hgb A1C 5.2 <5.7 % of total Hgb [facility] Comment: For the purpose of screening for the presence of diabetes: <5.7% ? Consistent with the absence of diabetes 5.7-6.4% ?Consistent with increased risk for diabetes ?(prediabetes) > or =6.5% ??Consistent with diabetes This assay result is consistent with a decreased risk of diabetes. Currently, no consensus exists regarding use of hemoglobin A1c for diagnosis of diabetes in children. According to [place] [employer] (ADA) guidelines, hemoglobin A1c <7.0% represents optimal control in non- diabetic patients. Different metrics may apply to specific patient populations. Standards of Medical Care in Diabetes(ADA). ? This test was performed on the [employer] c8000 platform. Please be advised that [facility] will move hemoglobin A1c testing to the Chriss platform soon. In general, direct comparison of the results from different platforms is not recommended. Blood 04/12/2023 7:27 AM FIRER DIESEL LOCOMOTIVE 04/12/2023 7:32 AM FIRER DIESEL LOCOMOTIVE Narrative [facility] - 04/20/2023 8:13 PM FIRER DIESEL LOCOMOTIVE FASTING:YES FASTING: YES Daily Cruz MD LAB BLOOD ORDERABLES Karen l Result Performing Organization Address [facility]/ZIP Co de Phone Number [facility] [address] [address] [place] [id number] * Ferritin (04/12/2023 7:27 AM FIRER DIESEL LOCOMOTIVE) Ferritin 44 16 - 154 ng/mL tribrDrake hamilton Blood 04/12/2023 7:27 AM FIRER DIESEL LOCOMOTIVE 04/12/2023 7:32 AM FIRER DIESEL LOCOMOTIVE Narrative QUEST - 04/20/2023 8:13 PM FIRER DIESEL LOCOMOTIVE FASTING:YES FASTING: YES Result [facility] Daily Cruz MD LAB BLOOD ORDERABLES Karen l Result Performing Organization Address [facility] Co de Phone Number [employer] [address] [place] [address] * BATSHEVA ab ql w/rflx to BATSHEVA qn (04/12/2023 7:27 AM FIRER DIESEL LOCOMOTIVE) BATSHEVA, qual NEGATIVE NEGATIVE tribr- [place] Comment: BATSHEVA IFA is a first line screen for detecting the presence of up to approximately 150 autoantibodies in various autoimmune diseases. A negative BATSHEVA IFA result suggests an BATSHEVA-associated autoimmune disease is not present at this time, but is not definitive. If there is high clinical suspicion for Sjogren's syndrome, testing for anti-SS-A/Ro antibody should be considered. Anti-Xenia-1 antibody should be considered for clinically suspected inflammatory myopathies. AC-0: Negative International Consensus on BATSHEVA Patterns (https://doi.org/10.1515/wjmd-7592-6656) For additional information, please refer to http://education.[employer]/faq/YQA271 (This link is being provided for informational/ educational purposes only.) ?? Blood 04/12/2023 7:27 AM FIRER DIESEL LOCOMOTIVE 04/12/2023 7:32 AM FIRER DIESEL LOCOMOTIVE Narrative QUEST - 04/20/2023 8:13 PM FIRER DIESEL LOCOMOTIVE FASTING:YES FASTING: YES Result [facility] Daily Cruz MD LAB BLOOD ORDERABLES Karen l Result Performing Organization Address [facility] Co de Phone Number [employer] [address] [place] [address] documented in this encounter Visit Diagnoses Diagnosis Pituitary adenoma (HCC)- Primary Benign neoplasm of pituitary gland and craniopharyngeal duct (pouch) Dysfunctional uterine bleeding Other disorder of menstruation and other abnormal bleeding from female genital tract Hypertension, essential Unspecified essential hypertension Pure hypercholesterolemia Low serum aspartate aminotransferase (AST) Diplopia documented in this encounter Additional Health Concerns Infection Onset Date Last Indicated Resolved Time COVID: Suspected 02/17/2023 02/17/2023 02/17/2023 12:11 PM FIRER DIESEL LOCOMOTIVE Influenza, adult 02/17/2023 02/17/2023 02/24/2023 3:05 AM FIRER DIESEL LOCOMOTIVE documented as of this encounter Care Teams Television Parts Tester Relationship Specialty Start Date End Date Daily Cruz MD PCP - General Family Medicine 03/04/21 documented as of this encounter
--- OUTSIDE RECORDS SUMMARY | 2024-02-21 19:34 | XMS_ITS | Encounter Summary ---
Author Organization [facility] Address [address] [place] [address] Phone Care Team Providers Care Naval Architect Specialist Name Role Phone Daily Cruz MD Primary Care Provider [phone] Savannah Holt Unavailable [phone] Ange Chavez MD Unavailable [phone] Reason for Referral * Diagnostic Imaging (Routine) - Authorized Specialty Diagnoses / Procedures Referred By Contac t Referred To Contact Diagnoses History of idiopathic intracranial hypertension Procedures OCT, Retina - OU - Both Eyes Leisa Serrano MD [address] [place] [address] Phone: tel: fax: [facility] (All Locations) Referral ID Status Reason Start Date Expiration Date V isits Requested Visits Authorized [id number] Authorized 06/07/2023 07/06/2024 1 1 * Diagnostic Imaging (Routine) - Authorized Specialty Diagnoses / Procedures Referred By Contfabian t Referred To Contact Diagnoses History of idiopathic intracranial hypertension Procedures OCT, Optic Nerve - OU - Both Eyes Leisa Serrano MD [address] [address] Phone: tel: fax: [facility] (All Locations) Referral ID Status Reason Start Date Expiration Date V isits Requested Visits Authorized [id number] Authorized 06/07/2023 07/06/2024 1 1 * Diagnostic Imaging (Routine) - Authorized Specialty Diagnoses / Procedures Referred By Matt burk Referred To Contact Diagnoses History of idiopathic intracranial hypertension Procedures Singh Visual Field - [place] [address] [place] [address] Phone: tel: fax: [facility] (All Locations) Referral ID Status Reason Start Date Expiration Date V isits Requested Visits Authorized [id number] Authorized 06/07/2023 07/06/2024 1 1 Reason for Visit * Consultation (Routine) - Closed Specialty Diagnoses / Procedures Referred By Matt burk Referred To Contact Ophthalmology Diagnoses Diplopia Daily Cruz MD Phone: tel: fax: [place] [address] [place] [address] Phone: tel: fax: Referral ID Status Reason Start Date Expiration Date V isits Requested Visits Authorized [id number] Closed Specialty Services Required 01/07/2023 02/06/2024 12 12 Encounter Details Date Type Department Care Team (Late st Contact Info) Description 06/07/2023 2:00 PM CDT Office Visit [facility] Ophthalmology [address] [address], [address] [place] [address] [place] [address] [place] [address] Exophoria (Primary Dx); Convergence insufficiency; Diplopia; History of idiopathic intracranial hypertension Social History Tobacco Use Types Packs/Day Years [...] file Legal Sex Female 3:37 PM DIRECTOR SEARCH Gender Identity Female 03/02/2020 4:27 PM DIRECTOR SEARCH Sexual Orientation Straight 07/10/2019 11 :13 PM CDT documented as of this encounter Progress Notes * Leisa Serrano MD - 06/07/2023 2:00 PM CDT [facility] NEUR[facility]-OPHTHALMOLOGY CLINIC NEW PATIENT CONSULTATION I was asked to see this patient in neuro-ophthalmology consultation for evaluation of diplopia. Jud Crocker is a 32 y.o. female with hx childhood strabismus, hx multiple concussions, migraines, BMI >40, pituitary lesion <1 cm in size, and who has carried a prior diagnosis of idiopathic intracranial hypertension (IIH). 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 She is symptomatically bothered with reading--she has been closing one eye to read. MRI brain w/wo contrast was obtained in Nov 2022. Reports known history of childhood strabismus. Also has history of multiple concussions. Possible history of IIH: No papilledema or evidence of active intracranial hypertension. She reports that she was at one point diagnosed with IIH, but that she saw a neuro-market president at [facility] who did not feel that she had the diagnosis. She reports that she cannot tolerate Diamox or Topamax. There is no papilledema on examination today, and her note from Dr. Chang in 2016 there was no papilledema at that time. Her most recent MRI shows no signs of intracranial hypertension. She reports that an LP on 06/05/23 showed a normal opening pressure (16). She has a net weight loss since the time of concern for IIH. Plan/ Recommendations: - Convergence exercises ( Pencil push-ups ). - Will discuss case with Adult Strabismus. History of Present Illness: Reports 10 years of intermittent diplopia. Reports initially, images just had a shadow, however sheis now noticing images are becoming further and further apart. Double vision resolves with either eye covered. States it is worse when she is fatigued. No history of prism correction. Notes she sees double at near, and often closes one eye to read. Distance vision is extremely blurred--she is not sure if she has diplopia at distance. Has tried glasses and CTL in the past, but glasses worsened headaches/migraines and CTL gave her FBS. Also states with the use of glasses and CTL, vision still is not sharp. Complaints of dryness OU,no improvements with ATs 10x/day. Complaints of freq pressure to eyes; states it hurts to blink. Pt reports to have a history of a lazy eye (unsure of which eye but she thinks it is OS). No history of patching or strabismus surgery. No scalp tenderness, loss of appetite, fever/chills, unexplained weight loss, thyroid issues, difficulty swallowing, ptosis. No recent head trauma, no hospitalizations prior to onset, no cataract surgery, no monovision, no refractive surgery. Reports history of migraines since the age of 8. Currently on a 3 week span with a headache; recently admitted to hospital with many diff treatment plans, however headache is still present along withneck pain. States it is not uncommon for headaches to last several days at a time. On average, she gets 3-4 headaches a month; worse during menstruation and freq only on left side. Reports pulsatile tinnitus with headaches and describes hearing to sound muffled. Reports 2 episodes of vision blacking out OU; thinks it was induced by severe panic attack. Vision returned to baseline after about 20 mins. In the past, pt has been diagnosed with IIH. Tried Diamox and Topamax, however she is allergic. Notes to have freq antibiotic use; states they are constantly putting me on antibiotics . No history of anemia. No WALTER or snoring. No vitamin A skin creams/Accutane. She reports that since diagnosis, she lost about 80 lbs, but more recently regained about 50lbs. Reports current weight 259 pounds (heigh t: BMI 40.6). Review of Prior Records: This is my first visit with this patient, and thus I have reviewed relevant prior notes and summarized them as follows: Pt reports she has h/o migraine since she was 9 yrs old. Her headaches has become more and more severe from last Nov. Pt states she has 2 episodes that she had severe headache and she could not function well. She felt her brain was not connecting to her eyes during those episodes, and each episodelast the whole week. She also had one episode with 'black out' OU for a couple seconds last Dec. She has been seeing neurologists for management of her headaches. Pt was admitted in hospital at [facility] 10/08-10/13 for injections for her Headaches. However, she had reactions to the medication, andthey stopped the medication. She had Spinal Tap on 10/12 by her neurologist, Dr. Greyson Barnett, and was told the pressure was 31. She went home after the spinal tap, however, she had spinal leaks withheadaches and nausea/vomiting when sitting up. Pt went to [facility] to see her old neurologist, Dr. Flores on 10/15 and was given an 'blood patch'. However, her symptoms were not relieved, she went back to [facility] ER and got another emergency blood patch. Her headache was much improved the next day and she was doing well for more than a week. The headache came back [address] Barnett sent patienthere to evaluate for papilledema. Pt reports she had tried acetazolamide but had reactions (rashes,numbness of her tongue) that it has to be stopped. She is currently on Topamax 25mg QD, but cannot take higher than this dose. Pt states that her OS drifts out sometimes in the morning when she wakes up and it can return to normal on its own. She has been having this for 2 years, but it becomes more frequently recently. Pt has picture of it on her cell phone. - 10/26/2015: Seen at [facility] Ophthalmology. Noted to have full EOMs OU with an intermittent alternative exotropia. There was no disc edema, with RNFL 107 microns OU, but a history of IIH was noted. 1.Pseudotumor cerebri - increased frequency and severity of headaches for several months - MRI negative per pt - LP revealed ICP 31 per pt - optic discs appear normal on exam, no sign of optic disc edema. Prior Labs: I have independently reviewed relevant prior clinical laboratory tests, and summarized my findings as follows: Lab Results Component Value Date HGB 13.6 05/25/2023 MCV 86.8 05/25/2023 Prior Imaging: - 12/13/2022: MRI brain w/wo contrast showed a 6 mm Ovoid, intrinsically T1 hyperintense 6 mm hypoenhancing nodule within the anterior pituitary. Diagnostic considerations include a pituitary microadenoma or Rathke's cleft cyst. There was no radiographic signs of intracranial hypertension (no posterior globe flattening, no empty sella) (images personally reviewed). Repeat MRI brain w/wo contrast is scheduled for 02/02/2024. Examination: In [facility], use Encounters tab to view detailed neuro-ophthalmic examination. In my encounter letter, detailed neuro-ophthalmic examination findings are copied below. Attestations/ Additional notes: My total encounter time on 06/07/2023 was 65 minutes, which was spent in the activities documented [...] Pain Care Plan Chronic Care Management No Issa, Sangeetha K., RN Note: Problem: Chronic Pain Goals: 1. Minimize further functional decline 2. Maximize quality of life 3. Control pain Strategies: - Activity/exercise program recommendation - Conservative stepwise pain medicine strategy with multi-disciplinary approach - Recommend healthy lifestyle strategies and compensatory methods as needed documented as of this encounter Procedures Procedure Name Priority Date/Time Associated Diagnosis Comments OCT, RETINA - OU - BOTH EYES Routine 06/07/2023 3:56 PM CDT History of idiopathic intracranial hypertension OCT, OPTIC NERVE - OU - BOTH EYES Routine 06/07/2023 3:56 PM CDT History of idiopathic intracranial hypertension SINGH VISUAL FIELD - OU - BOTH EYES Routine 06/07/2023 3:51 PM CDT History of idiopathic intracranial hypertension documented in this encounter Results * OCT, Retina - OU - Both Eyes (06/07/2023 3:56 PM CDT) Anatomical Region Laterality Modality Head Optical Coherenc e Tomography Narrative 06/07/2023 3:56 PM CDT Right Eye Findings include normal observations. Left Eye Findings include normal observations. Notes Normal mean ganglion cell complex thickness OU (on Ze[employer] Cirrus OCT) us Leisa Serrano MD OPHTH TOMOGRAPHY Final Resu lt * OCT, Optic Nerve - OU - Both Eyes (06/07/2023 3:56 PM CDT) RNFL OS 96 micrometers CONTINUUM RNFL OD 101 micrometers CONTINUUM Anatomical Region Laterality Modality Head Optical Coherenc e Tomography Narrative 06/07/2023 3:56 PM CDT Right Eye Reliability was good. Average RNFL thickness 101 micrometers. Left Eye Reliability was good. Average RNFL thickness 96 micrometers. 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 Diplopia History of idiopathic intracranial hypertension documented in this encounter Discontinued Medications Medication Sig Discontinue Reason Start Date End Da te LORazepam (ATIVAN) 0.5 mg tablet 05/31/2023 06/08/2023 documented as of this encounter Orders Outpatient Referral Count Last Ordered Date Fir st Ordered Date AMB REFERRAL TO OPHTHALMOLOGY 1 06/07/2023 documented in this encounter Eye Exam Visual Acuity (Snellen - Linear) Right eye Left eye Dist sc 20/40 20/40 -1 Dist ph sc 20/25 -2 20/30 -1 Tonometry (Tonopen, 3:11 PM) Right eye Left eye Pressure 14 13 Pupils Dark Light Shape React APD Right eye 4.5 3 Round Brisk None Left eye 4.5 3 Round Brisk None Visual Vivas Right eye Left eye Full Full Extraocular Movement Right eye Left eye Full Full Pt reports pulling sensation OD. Normal saccades bilaterally without overshoot/ undershoot and without adduction lag Neuro/Psych Oriented x3: Yes Mood/Affect: Normal Dilation Both eyes: 1.0% Mydriacyl @ 3:11 PM Color Right eye Left eye [place]ara 12/24 12/24 [place] 4 Dot Distance: Diplopia Near: Normal External Exam Right eye Left eye External Normal Normal Slit Lamp Exam Right eye Left eye Lids/Lashes Normal Normal Conjunctiva/Sclera White and quiet White and anjel et Cornea Clear Clear Anterior Chamber Deep and quiet Deep and quiet Iris Round and reactive Round and richa ctive Lens Clear Clear Anterior Vitreous Normal Normal Fundus Exam Right eye Left eye Disc Normal Normal C/D Ratio 0.65 0.65 Macula Normal Normal Vessels Normal Normal Periphery Normal Normal Strabismus Exam Method: Alternate cover Fixing Eye: Right Correction: sc Near: X 25 Right gaze: X 6 Primary gaze: X 6 Left gaze: X 4 Right eye Left eye Up gaze 0 0 0 0 0 0 Right/left gaze 0 -- 0 0 -- 0 Down gaze 0 0 0 0 0 0 Care Teams Naval Architect Specialist Relationship Specialty Start Date End Date Daily Cruz MD PCP - General Family Medicine 03/04/21 Savannah Holt PA [address] [facility] NE[facility] [address] [address] Physician Hydro Sprayer Operator Neurology 06/07/23 Ange Chavez MD [address] [facility] NEUR[facility] [address] [address] Consulting Physician Endocrinology 06/07/23 documented as of this encounter
--- OUTSIDE RECORDS SUMMARY | 2024-02-21 19:34 | XMS_ITS | Encounter Summary ---
Author Organization [facility] Address [address] [place] [address] Phone Care Team Providers Care Spool Sorter Name Role Phone Daily Cruz MD Primary Care Provider [phone] [phone] Reason for Referral * Diagnostic Imaging (Routine) - Closed Specialty Diagnoses / Procedures Referred By Matt burk Referred To Contact Diagnoses Great toe pain, left Procedures XR Toe 4th Digit Left Minimum 2 Views Selam Orosco NP [address] [facility] [address] [place] [address] Phone: tel: fax: [facility] Referral ID Status Reason Start Date Expiration Date Visits Re quested Visits Authorized [id number] Closed 04/17/2023 05/16/2024 1 1 ENT TRANSPORT OFFICER Reason for Visit * Reason Comments Pain Encounter Details Date Type Department Care Team (Late st Contact Info) Description 04/17/2023 6:15 PM PATIENT TRANSPORT OFFICER [facility] Visit [facility] - [facility] [address] [facility] [address] [place] [address] Selam Orosco NP [address] [facility] [address] [place], [place] [id number] Contusion of lesser toe of left foot with damage to nail, initial encounter (Primary Dx); Great toe pain, left Social History Tobacco Use Types Packs/Day Years [...] on file Legal Sex Female 3:37 PM PATIENT TRANSPORT OFFICER Gender Identity Female 03/02/2020 4:27 PM PATIENT TRANSPORT OFFICER Sexual Orientation Straight 07/10/2019 11 :13 PM CDT documented as of this encounter Last Filed Vital Signs Vital Sign Reading Time Taken Comments Blood Pressure - - Pulse - - Temperature - - Respiratory Rate - - Oxygen Saturation - - Inhaled Oxygen Concentration - - Weight 115.7 kg (255 lb) 04/17/2023 6:15 PM PATIENT TRANSPORT OFFICER Height 170.2 cm (5' 7 ) 04/17/2023 6:15 PM PATIENT TRANSPORT OFFICER Body Mass Index 39.94 04/17/2023 6:15 PM PATIENT TRANSPORT OFFICER documented in this encounter Patient Instructions * Patient Instructions* Selam Orosco NP - 04/17/2023 6:15 PM PATIENT TRANSPORT OFFICER Images from the original note were not included. Jud Jettitis 1990 Left Fourth toe contusion TO DO: Francisco tape 3rd and 4th toes together for support Apply a Neosporin and Band-Aid to the tip of the 4th toe Avoid walking barefoot If your symptoms should worsen, you can reach your Provider through the office at during regular business hours M-F from 8:00 a.m. to 4:30 p.m. After 4:30 p.m. or on weekends, please call the Physician / Exchange at . If your symptoms worsen and you are unable to reach anyone at either of the numbers provided, you should seek further medical attention in the ER or with your primary care provider. Selam Orosco NP ENT TRANSPORT OFFICER documented in this encounter Progress Notes * Selam Orosco NP - 04/17/2023 6:15 PM CST ORTHOPEDIC INJURY CLINIC PATIENT VISIT CHIEF COMPLAINT Possible broken toe on left foot REFERRING PROVIDER Self Referral HISTORY OF PRESENT ILLNESS Jud Crocker is a 32 y.o. describes injury to the left 4th toe on April 16, 2023. She was walking with a shopping cart, wearing sandals when she stubbed the toe on the cart. Developed sharp, burning, aching and throbbing moderate 4th toe pain. Small laceration at the nailbed. PAST MEDICAL HISTORY She has a past medical history of ADHD (attention deficit hyperactivity disorder), Anxiety, Arthritis, Asthma, Brain concussion (2010, 2009), Chronic bronchitis (HCC), Depression, Gastric reflux, GERD (gastroesophageal reflux disease), Hypertension, essential (05/27/2022), IIH (idiopathic intracranial hypertension), Irritability, Jaundice, Kidney stone (2019), Low back pain, Lymphedema, Memory loss, Migraines, Motion sickness, Obesity, Peptic ulceration, Pneumonia (12/2019), PONV (postoperativenausea and vomiting), Reactive airway disease, Seasonal allergies, Seizure (HCC) (04/25/2017), Seizures (HCC), and SOB (shortness of breath). PAST SURGICAL HISTORY She has a past surgical history that includes Laparoscopic endometriosis fulguration (2017); Wisdomtooth extraction; Foot surgery (Bilateral, 2019); Foot surgery (07/16/2019); Abdominal surgery; Tonsillectomy; Knee surgery (01/2022); Knee arthroscopy w/ lateral release (2022020); and Nasal endoscopy. INITIAL REVIEW OF MEDICATIONS She has a current medication list which includes the following prescription(s): albuterol, albuterol hfa, dexamethasone, and sodium, potassium & mag sulfates. ALLERGIES She is allergic to acetazolamide, dihydroergotamine, hydrochlorothiazide, nickel, topiramate, hydrocodone-acetaminophen, lamotrigine, levetiracetam, and oxycodone-acetaminophen. [...] Vision loss in her father and mother. REVIEW OF SYSTEMS Review of systems is otherwise negative. 10/02/2020 10/05/2020 11/02/2020 12/11/2020 08/30/2021 11/04/2021 PROMIS [...] or rashes on exposed skin MUSCULOSKELETAL: Gait is normal. Left foot exam demonstrates small laceration at the tip of the left 4th toe with mild ecchymosis. She is tender palpation at the 4th toe. No tenderness to the metatarsals. Negative metatarsal squeeze. Left ankle range of motion is full without provocation of pain. NEUROLOGIC: Sensation intact to left foot REVIEW OF IMAGING/STUDIES Three views left 4th toe taken reviewed with her today. My independent interpretation: No fracture.Normal bony alignment. IMPRESSION/DIAGNOSIS Left 4th toe contusion TREATMENT/PLAN History, exam, imaging findings and working diagnosis are reviewed with the patient today. Francisco tape 3rd and 4th toes together for support Apply a Neosporin and Band-Aid to the tip of the 4th toe Avoid walking barefoot Selam Orosco RN, ANP-[facility] Orthopedics Division of Physical Medicine and Rehabilitation In collaboration with Dr. Sandoval Portions of this note were dictated using [employer] speech recognition software. ENT TRANSPORT OFFICER documented in this encounter Plan of Treatment [...] as of this encounter Results * XR Toe 4th Digit Left Minimum 2 Views (04/17/2023 6:26 PM PATIENT TRANSPORT OFFICER) Anatomical Region Laterality Modality Lower Extremities, Foot, Toes Left Co mputed Radiography 04/18/2023 5:20 AM PATIENT TRANSPORT OFFICER Impressions 04/18/2023 5:20 AM PATIENT TRANSPORT OFFICER 1. ??No radiographic evidence for acute osseous abnormality of the left 4th toe Electronically signed by: Vicki Ruvalcaba MD Narrative 04/18/2023 5:20 AM PATIENT TRANSPORT OFFICER EXAMINATION: XR TOE ??4TH DIGIT LEFT MINIMUM [...] signed by: Vicki Ruvalcaba MD Selam Orosco APPRENTICE ARCHITECT IMG XR PROCEDURES Final Resul t documented in this encounter Visit Diagnoses Diagnosis Contusion of lesser toe of left foot with damage to nail, initial encounter- Primary Great toe pain, left Great toe pain, left documented in this encounter Care Teams Spool Sorter Relationship Specialty Start Date End Date Daily Cruz MD PCP - General Family Medicine 03/04/21 documented as of this encounter
--- OUTSIDE RECORDS SUMMARY | 2024-02-21 19:35 | XMS_ITS | Encounter Summary ---
Author Organization [facility] Address [address] [place] [address] Phone Care Team Providers Care [employer] Combat Skills Name Role Phone Daily Cruz MD Primary Care Provider [phone] Reason for Visit * Reason Comments Injections Encounter Details Date Type Department Care Team (Latest Contact Info) Description 12/30/2022 10:40 AM CENTRAL STERILIZATION TECHNICIAN Clinical Support [facility] Allergy and Immunology [address] [place] [address] Seasonal allergic rhinitis due to pollen Social History [...] drink containing alc ohol? Monthly or less 12/12/2022 Q2: How many drinks containi ng alcohol do you have on a typical day when you are drinking? 1 or 2 12/12/2022 Q3: How often do you have si x or more drinks on one occasion? Never 12/12/2022 PHQ-2 Answer Date Recorded PHQ-2 Total Score (If total score is 3 or more points, staff should administer the PHQ-9) 0 11/22/2022 Comments No Sex and Gender Information Value Date Recorded Sex Assigned at Not on file Legal Sex Female 3:37 PM CENTRAL STERILIZATION TECHNICIAN Gender Identity Female 03/02/2020 4:27 PM CENTRAL STERILIZATION TECHNICIAN Sexual Orientation Straight 07/10/2019 11 :13 PM CDT documented as of this encounter Progress Notes * Alec Tony ZenaidaSydney, JENNIFER - 12/30/2022 10:40 AM CST A summary of Jud J Motiejaitiss injection. Generated date: 2022-12-30 The injection was administered by [employer] at 2022-12-30 10:35:30. The patient received a 0.4 mL dose from Rx #[id number] out of the 1:71139/SLVR vial, named Vial 4 Cat\Dog\Mites, in their Lower left arm. Note: Next step per plan. No dose rules adjustments required. Recorded local reaction(s): None. Recorded systemic reaction: N. Vial Concentration:34945 Vial Color:SLVR A summary of Jud J Motiejaitiss injection. Generated date: 2022-12-30 The injection was administered by [employer] at 2022-12-30 10:35:30. The patient received a 0.4 mL dose from Rx #[id number] out of the 1:64584/SLVR vial, named Vial 2 Grasses\Weeds, in their Lower right arm. Note: Next step per plan. No dose rules adjustments required. Recorded local reaction(s): None. Recorded systemic reaction: N. Vial Concentration:09960 Vial Color:SLVR A summary of Jud J Motiejaitiss injection. Generated date: 2022-12-30 The injection was administered by [employer] at 2022-12-30 10:35:30. The patient received a 0.4 mL dose from Rx #[id number] out of the 1:60669/SLVR vial, named Vial 3 Mold,in their Upper left arm. Note: Next step per plan. No dose rules adjustments required. Recorded local reaction(s): None. Recorded systemic reaction: N. Vial Concentration:35650 Vial Color:SLVR A summary of Jud J Motiejaitiss injection. Generated date: 2022-12-30 The injection was administered by [employer] at 2022-12-30 10:35:29. The patient received a 0.4 mL dose from Rx #[id number] out of the 1:17551/SLVR vial, named Vial 1 Trees, in their Upper right arm. Note: Next step per plan. No dose rules adjustments required. Recorded local reaction(s): None. Recorded systemic reaction: N. Vial Concentration:37884 Vial Color:SLVR RAL STERILIZATION TECHNICIAN documented in this encounter Plan of [...] as of this encounter Visit Diagnoses Diagnosis Seasonal allergic rhinitis due to pollen documented in this encounter Orders Procedures Count Last Ordered Date First Orde red Date IMMUNOTHERAPY PRESCRIPTION 1 12/30/2022 documented in this encounter Care Teams [employer] Skills Relationship Specialty Start Date End Date Daily Cruz MD PCP - General Family Medicine 03/04/21 documented as of this encounter
--- OUTSIDE RECORDS SUMMARY | 2024-02-21 19:35 | XMS_ITS | Encounter Summary ---
Author Organization [facility] Address [address] [place] [address] Care Team Providers Care Complaint Coordinator Name Role Phone Daily Cruz MD Primary Care Provider [phone] Savannah Holt Unavailable [phone] Ange Chavez MD Unavailable [phone] Encounter Details Date Type Department Care Team (Late st Contact Info) Description 01/03/2023 Orders Only [facility] Health Information Management [address] [place] [id number] Daily Cruz MD [address] [facility] [address] [address] Social History Tobacco Use Types [...] on file Legal Sex Female 3:37 PM TRIAL ATTORNEY Gender Identity Female 03/02/2020 4:27 PM TRIAL ATTORNEY Sexual Orientation Straight 07/10/2019 11 :13 PM CDT documented as of this encounter Plan of Treatment Not on file documented as of this encounter Goals Goal Patient Goal Type Associated Problems Recent Progress Patient-Stated? Author CCM Chronic Pain Care Plan Chronic Care Management No Sangeetha aPrsons, RN Note: Problem: Chronic Pain Goals: 1. Minimize further functional decline 2. Maximize quality of life 3. Control pain Strategies: - Activity/exercise program recommendation - Conservative stepwise pain medicine strategy with multi-disciplinary approach - Recommend healthy lifestyle strategies and compensatory methods as needed documented as of this encounter Procedures Procedure Name Priority Date/Time Associated Diagnosis Comments SCAN - PATHOLOGY 01/03/2023 documented in this encounter Results * SCAN - PATHOLOGY (01/03/2023) Daily Cruz MD Final Res ult documented in this encounter Visit Diagnoses Not on filedocumented in this encounter Additional Health Concerns Infection Onset Date Last Indicated Resolved Time COVID: Suspected 02/17/2023 02/17/2023 02/17/2023 12:11 PM TRIAL ATTORNEY Influenza, adult 02/17/2023 02/17/2023 02/24/2023 3:05 AM TRIAL ATTORNEY COVID: Suspected 10/19/2023 10/19/2023 10/19/2023 3:12 PM CDT documented as of this encounter Care Teams Complaint Coordinator Relationship Specialty Start Date End Date Daily Cruz MD PCP - General Family Medicine 03/04/21 Savannah Holt PA [address] [facility] NEUROLOGY [facility] [place] [address] Physician Logistics Planner Neurology 06/07/23 Ange Chavez MD [address] [place] [address] [address] Consulting Physician Endocrinology 06/07/23 documented as of this encounter
--- OUTSIDE RECORDS SUMMARY | 2024-02-21 19:35 | XMS_ITS | Encounter Summary ---
Author Organization [facility] Address [address] [place] [address] Phone Care Team Providers Care Medical Pathology Teacher Name Role Phone Daily Cruz MD Primary Care Provider [phone] Reason for Visit * Reason Onset Date Comments new pt appt req 01/09/2023 Encounter Details Date Type Department Care Team (Late st Contact Info) Description 01/09/2023 Telephone [facility] Ophthalmology [address] [place], [place] [id number] Leisa Serrano MD [address] [address] new pt appt req Social History Tobacco Use Types Packs/Day Years [...] on file Legal Sex Female 3:37 PM CHUCK TENDER Gender Identity Female 03/02/2020 4:27 PM CHUCK TENDER Sexual Orientation Straight 07/10/2019 11 :13 PM CDT documented as of this encounter Miscellaneous Notes * Telephone Encounter - Alexander Hancock MA - 05/03/2023 5:53 PM CDT My chart message sent * Telephone Encounter - Daily Cruz MD - 05/03/2023 10:51 AM CDT Will review with patient at upcoming appointment * Telephone Encounter - Lisa Zurita MA - 04/18/2023 12:49 PM CST Can you review her lab results as well? She has questions about her EBV and CRP K TENDER * Telephone Encounter - Lisa Zurita MA - 04/18/2023 12:47 PM CST She has been scheduled K TENDER * Telephone Encounter - Daily Cruz MD - 04/18/2023 8:20 AM CHUCK TENDER Schedule follow up in 1-2 months K TENDER * Telephone Encounter - Aman Morales BJosefina - 02/24/2023 10:59 AM CHUCK TENDER Called pt offered next available ok per Dr. Serrano on either her schedule or Dr. Austin's pt said she still preferred to see Dr. Serrano and she was fine with her next availability in mid May at [facility] gave pt all appt info she is aware K TENDER * Telephone Encounter - Leisa Serrano MD - 02/24/2023 9:28 AM CHUCK TENDER Okay for next available with me or Norman for sooner. Per notes from Dr. 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 K TENDER * Telephone Encounter - Aman Morales B.A. - 02/24/2023 9:23 AM CST Ok to schedule with Dr. Austin since diplopia been going on for a couple months notes under encounters in [facility] K TENDER * Telephone Encounter - Daily Cruz MD - 02/24/2023 8:31 AM CHUCK TENDER Going on for couple months K TENDER * Telephone Encounter - Aman Morales BJosefina - 01/10/2023 12:09 PM CHUCK TENDER Do you happen to know if this diplopia is a new onset or it has been going on for a couple months it is not completely clear in your televisit note K TENDER * Telephone Encounter - Brady Carrizales - 01/09/2023 10:53 AM CST New PT APPT Request: Who pt is being referred to: Dr. Serrano Reason/Diagnoses: diplopia Referring doctor: Dr. Daily Cruz Referring doctor contact information: n/a How soon: routine Transfer of care or 2nd opinion? N/a Were notes requested? Notes in Epic Additional comments: Ref via Epic from [facility]. K TENDER documented in this encounter Plan of [...] COVID: Suspected 02/17/2023 02/17/2023 02/17/2023 12:11 PM CHUCK TENDER Influenza, adult 02/17/2023 02/17/2023 02/24/2023 3:05 AM CHUCK TENDER documented as of this encounter Care Teams Medical Pathology Teacher Relationship Specialty Start Date End Date Daily Cruz MD PCP - General Family Medicine 03/04/21 documented as of this encounter
--- OUTSIDE RECORDS SUMMARY | 2024-02-21 19:35 | XMS_ITS | Encounter Summary ---
Author Organization [facility] Address [address] [place] [address] Phone Care Team Providers Care Personal Chef Name Role Phone Daily Cruz MD Primary Care Provider [phone] Encounter Details Date Type Department Care Team (Late st Contact Info) Description 10/10/2022 Telephone [facility] Allergy and Immunology [address] [facility] [address] [address] [place] [address] Annette Bonilla RN Social History Tobacco Use Types Packs/Day Years Used Date Smoking Tobacco: Never Passive Smoke Exposure: Past Smokeless Tobacco: Never Alcohol Use Standard Drinks/Week Comments Not Currently 0 (1 standard drink = 0.6 oz pure alcohol) Maybe a drink every few months AUDIT-C Answer Date Recorded Q1: How often do you have a drink containing alc ohol? Monthly or less 08/30/2022 Q2: How many drinks containi ng alcohol do you have on a typical day when you are drinking? 1 or 2 08/30/2022 Q3: How often do you have si x or more drinks on one occasion? Never 08/30/2022 PHQ-2 Answer Date Recorded PHQ-2 Total Score (If total score is 3 or more points, staff should administer the PHQ-9) 0 07/20/2022 Comments No Sex and Gender Information Value Date Recorded Sex Assigned at Not on file Legal Sex Female 3:37 PM RN DIABETES Gender Identity Female 03/02/2020 4:27 PM RN DIABETES Sexual Orientation Straight 07/10/2019 11 :13 PM CDT documented as of this encounter Miscellaneous Notes * Telephone Encounter - Annette Bonilla, RN - 10/10/2022 2:21 PM CDT Called and spoke to pt. Scheduled first immunotherapy inj for 11/15 at [place] documented in this encounter Plan of Treatment [...] on filedocumented in this encounter Care Teams Personal Chef Relationship Specialty Start Date End Date Daily Cruz MD PCP - General Family Medicine 03/04/21 documented as of this encounter
--- OUTSIDE RECORDS SUMMARY | 2024-02-21 19:35 | XMS_ITS | Encounter Summary ---
Author Organization [facility] Address [address] [place] [address] Phone Care Team Providers Care Gis Web Developer Name Role Phone Daily Cruz MD Primary Care Provider [phone] Reason for Visit * Reason Comments Injections Encounter Details Date Type Department Care Team (Latest Contact Info) Description 12/26/2022 10:40 AM RUG INSPECTOR HELPER Clinical Support [facility] Allergy and Immunology [address] [facility] [address] [place] [address] Seasonal allergic rhinitis due to [...] on file Legal Sex Female 3:37 PM RUG INSPECTOR HELPER Gender Identity Female 03/02/2020 4:27 PM RUG INSPECTOR HELPER Sexual Orientation Straight 07/10/2019 11 :13 PM CDT documented as of this encounter Progress Notes * VillagomezAnne ortiz, MID LEVEL PROJECT MANAGER - 12/26/2022 10:40 AM CST A summary of Jud J Motiejaitiss injection. Generated date: 2022-12-26 The injection was administered by [employer] at 2022-12-26 10:54:01. The patient received a 0.2 mL dose from Rx #[id number] out of the 1:25614/SLVR vial, named Vial 4 Cat\Dog\Mites, in their Lower right arm. Note: Adjusted 0 steps due to 3 days late and (L) None reaction. Recorded local reaction(s): None. Recorded systemic reaction: N. Vial Concentration:73550 Vial Color:SLVR A summary of Jud J Motiejaitiss injection. Generated date: 2022-12-26 The injection was administered by [employer] at 2022-12-26 10:54:01. The patient received a 0.2 mL dose from Rx #[id number] out of the 1:03448/SLVR vial, named Vial 1 Trees, in their Upper left arm. Note: Adjusted 0 steps due to 3 days late and (L) None reaction. Recorded local reaction(s): None. Recorded systemic reaction: N. Vial Concentration:52366 Vial Color:SLVR A summary of Jud J Motiejaitiss injection. Generated date: 2022-12-26 The injection was administered by [employer] at 2022-12-26 10:54:01. The patient received a 0.2 mL dose from Rx #[id number] out of the 1:05655/SLVR vial, named Vial 2 Grasses\Weeds, in their Lower left arm. Note: Adjusted 0 steps due to 3 days late and (L) None reaction. Recorded local reaction(s): None. Recorded systemic reaction: N. Vial Concentration:43352 Vial Color:SLVR A summary of Jud J Motiejaitiss injection. Generated date: 2022-12-26 The injection was administered by [employer] at 2022-12-26 10:54:01. The patient received a 0.2 mL dose from Rx #[id number] out of the 1:76031/SLVR vial, named Vial 3 Mold,in their Upper right arm. Note: Adjusted 0 steps due to 3 days late and (L) None reaction. Recorded local reaction(s): None. Recorded systemic reaction: N. Vial Concentration:21057 Vial Color:SLVR INSPECTOR HELPER documented in this encounter Plan of Treatment [...] Date First Orde red Date IMMUNOTHERAPY PRESCRIPTION 2 12/26/2022 documented in this encounter Care Teams Gis Web Developer Relationship Specialty Start Date End Date Daily Cruz MD PCP - General Family Medicine 03/04/21 documented as of this encounter
--- OUTSIDE RECORDS SUMMARY | 2024-02-21 19:35 | XMS_ITS | Encounter Summary ---
Author Organization [facility] Healthcare Address [address] [place] [address] Care Team Providers Care Radiographer Cardiac Catheterization Name Role Phone Daily Cruz MD Primary Care Provider [phone] [phone] Reason for Referral * Physical Therapy (Routine) - Closed Specialty Diagnoses / Procedures Referred By Contac t Referred To Contact Physical Therapy Diagnoses Bilateral lower extremity edema Daily Cruz MD Phone: tel: fax: [facility] OP Physical Therapy [address] [place] [address] Phone: tel: fax: Referral ID Status Reason Start Date Expiration Date V isits Requested Visits Authorized [id number] Closed Evaluate and Treat 11/25/2022 02/12/2023 24 60 Question Answer PTRFR PT Evaluate and Treat Reason for Visit leg edema chronic Therapy options discussed with patient? Yes Location provided for therapy services is: Patient requested/Patient preferred Please select the performing region: [facility] [[id number]] Please select the performing department: [facility] OP PT [[id number]] # of visits: 24 Comments Other than regular lymphedema clinic PT would also recommend to get the home compression device approved Reason for Visit * Reason Comments Follow-up Encounter Details Date Type Department Care Team ([facility] Contact Info) Description 11/25/2022 11:15 AM CDT Telemedicine [facility] Medical Group Family Medicine at [place] [address] [facility] [address] [place] [address] Daily Cruz MD [address] [facility] [address] [place] [address] Bilateral lower extremity edema (Primary Dx) Social History Tobacco Use Types [...] file Legal Sex Female 3:37 PM MANAGER HOME IMPROVEMENT Gender Identity Female 03/02/2020 4:27 PM MANAGER HOME IMPROVEMENT Sexual Orientation Straight 07/10/2019 11 :13 PM CDT documented as of this encounter Last Filed Vital Signs Vital Sign Reading Time Taken Comments Blood Pressure - - Pulse - - Temperature - - Respiratory Rate - - Oxygen Saturation - - Inhaled Oxygen Concentration - - Weight 109.8 kg (242 lb) 11/25/2022 11:16 AM CDT Height 170.2 cm (5' 7 ) 11/25/2022 11:16 AM CDT Body Mass Index 37.9 11/25/2022 11:16 AM CDT documented in this encounter Patient Instructions * Attachments The following attachments cannot be sent through Care Everywhere. * Edema (AfterCare(R) Instructions(ER/ED)) (South African) documented in this encounter Progress Notes * Daily Cruz MD - 11/25/2022 11:15 AM CDT Images from the original note were not included. Patient ID: Jud Leung is a 32 y.o. female. Visit Date: 11/25/2022 This was a telemedicine visit with Jud Leung alone which took place via real-time video connection. During the visit, I was located at home and the patient was located at home in the state of [place]. The patient visit started at 11:13 and ended at 11:32. I have explained the option of participating in a telemedicine visit to the patient. After being given an opportunity to ask questions about and discuss this type of visit, the patient verbally consented to proceeding with the telemedicine visit. The patient understands that this service replaces an office visit and they may be billed and/or responsible for any applicable copayments. Chief Complaint edema HPI HPI Continues to have lower extremity edema which causes discomfort Current Outpatient Medications: albuterol HFA (PROVENTIL HFA,VENTOLIN HFA,PROAIR HFA) 90 mcg/actuation inhaler, Inhale 2 puffs 4 (four) times a day for 5 days Use only as needed after those 5 days, Disp: 6.7 each, Rfl: 1 cholecalciferol (VITAMIN D-3) 5,000 unit tablet, Take 0.2 tablets (1,000 Units total) by mouth daily, Disp: , Rfl: cyclobenzaprine (FLEXERIL) 10 mg tablet, , Disp: , Rfl: fexofenadine (ARIANNA) 180 mg tablet, Take 1 tablet (180 mg total) by mouth 2 (two) times a day, Disp: 180 tablet, Rfl: 3 fluticasone propionate (FLONASE) 50 mcg/actuation nasal spray, Administer 2 sprays into each nostril daily, Disp: 48 mL, Rfl: 1 hydrocortisone 2.5 % ointment, Apply topically 2 (two) times a day, Disp: 30 g, Rfl: 0 ibuprofen (ADVIL,MOTRIN) 800 mg tablet, Take 1 tablet (800 mg total) by mouth 3 (three) times a day, Disp: 90 tablet, Rfl: 0 montelukast (SINGULAIR) 10 mg tablet, TAKE 1 TABLET BY MOUTH EVERY DAY AT NIGHT, Disp: 90 tablet, Rfl: 0 nystatin 100,000 unit/mL suspension, Take 5 mL (500,000 Units total) by mouth as needed, Disp: , Rfl: POTASSIUM CHLORIDE ORAL, Take by mouth daily, Disp: , Rfl: triamcinolone (KENALOG) 0.1 % cream, Apply topically 2 (two) times a day as needed for rash Do not use on the face or in the groin, Disp: 454 g, Rfl: 2 emaqtvtntyssd-hbsrkad-ohbfaczd (EXCEDRIN MIGRAINE) 250-250-65 mg per tablet, Take 1 tablet by mouthevery 6 (six) hours as needed, Disp: , Rfl: dexAMETHasone (DECADRON) 2 mg tablet, 2 tab BID x 3 days, 1 tab BID x 3 days, 1 tab qd x2 days, 1/2tab qd x 2 days, Disp: 21 tablet, Rfl: 0 ergocalciferol, vitamin D2, 50 mcg (2,000 unit) tablet, Take 2 tablets by mouth daily 5,000, Disp: , Rfl: famotidine (PEPCID) 40 mg tablet, Take 1 tablet (40 mg total) by mouth daily, Disp: 30 tablet, Rfl:0 FLUoxetine (PROzac) 40 mg capsule, Take 1 capsule (40 mg total) by mouth daily, Disp: 30 capsule, Rfl: 5 HYDROcodone-chlorpheniramine ER (TUSSIONEX PENNKINETIC) 2-1.6 mg/mL ER suspension, Take 5 mL by mouth every 12 (twelve) hours as needed for cough, Disp: 100 mL, Rfl: 0 magnesium oxide 400 mg magnesium capsule, Take 400 mg by mouth daily, Disp: , Rfl: phentermine (ADIPEX-P) 37.5 mg tablet, Take 1 tablet (37.5 mg total) by mouth daily before breakfast, Disp: 30 tablet, Rfl: 2 rimegepant (Nurtec ODT) tablet,disintegrating, Take 1 tablet (75 mg total) by mouth as needed (takeevery other day PRN), Disp: 16 tablet, Rfl: 2 Review of Systems Constitutional: Negative for fatigue and fever. HENT: Negative for congestion, ear pain, nosebleeds and rhinorrhea. Eyes: Negative for pain and redness. Respiratory: Negative for cough and shortness of breath. Cardiovascular: Positive for leg swelling. Negative for chest pain and palpitations. Gastrointestinal: Negative for abdominal pain and diarrhea. Endocrine: Negative for cold intolerance. Genitourinary: Negative for dysuria and frequency. Musculoskeletal: Negative for arthralgias and back pain. Neurological: Negative for dizziness and headaches. Hematological: Does not bruise/bleed easily. Psychiatric/Behavioral: Negative for behavioral problems and confusion. Ht 170.2 cm (5' 7 ) Wt 109.8 kg (242 lb) BMI 37.90 kg/m?? Body mass index is 37.9 kg/m??. Physical Exam Constitutional: Appearance: Normal appearance. HENT: Head: Normocephalic and atraumatic. Nose: Nose normal. Eyes: Extraocular Movements: Extraocular movements intact. Conjunctiva/sclera: Conjunctivae normal. Pulmonary: Effort: Pulmonary effort is normal. Musculoskeletal: Cervical back: Normal range of motion. Neurological: Mental Status: She is alert and oriented to person, place, and time. Psychiatric: Mood and Affect: Mood normal. Behavior: Behavior normal. Diagnoses and all orders for this visit: Bilateral lower extremity edema (Primary) Assessment & Plan: Persistent Causes pain Refer to lymphedema clinic Orders: - Ambulatory referral order to Physical Therapy -; Future Daily Cruz MD GER HOME IMPROVEMENT documented in this encounter Miscellaneous Notes * Assessment & Plan Note - Daily Cruz MD - 12/23/2022 6:22 AM MANAGER HOME IMPROVEMENT Associated Problem(s): Bilateral lower extremity edema Persistent Causes pain Refer to lymphedema clinic GER HOME IMPROVEMENT documented in this encounter Plan of Treatment Scheduled Referrals Name Type Priority Associated Diagnoses Order Schedule Ambulatory referral order to Physical Therapy - Outpatient Referral Routine Bilateral lower extremity edema Expected: 11/25/2022 (Approximate), Expires: 11/26/2023 documented as of this encounter Goals Goal [...] as of this encounter Visit Diagnoses Diagnosis Bilateral lower extremity edema- Primary documented in this encounter Discontinued Medications Medication Sig Discontinue Reason Start Date End Da te ALPRAZolam (XANAX) 0.5 mg tabletIndications:Rico ic attack,Bipolar 2 disorder (CMS/HCC) (HCC) TAKE 1 TABLET BY MOUTH EVERY DAY NEEDED FOR ANXIETY Therapy completed 07/01/2022 11/25/2022 ropgxmklrc-fxrmkdkh-o ormoterol (Breztri Aerosphere) 160-9-4.8 mcg/actuation HFA aerosol inhalerIndications:Al lergic reaction, initial encounter,Reactive airway disease without asthma Apply 2 puffs intranasally 2 (two) times a day Therapy completed 09/20/2022 11/25/2022 bumetanide (BUMEX) 1 mg tablet TAKE 1 TABLET BY MOUTH TWICE A DAY Therapy completed 10/18/2022 11/25/2022 ergocalciferol (VITAMIN D) 50,000 unit capsule TAKE 1 CAPSULE BY MOUTH ONE TIME PER WEEK Therapy completed 08/13/2022 11/25/2022 furosemide (LASIX) 20 mg tabletIndications:Swe lling of lower extremity Take 1 tablet (20 mg total) by mouth daily Therapy completed 11/22/2022 11/25/2022 documented as of this encounter Historical Medications * This list may reflect changes made after this encounter. cholecalciferol (VITAMIN D-3) 5,000 unit tablet Take 0.2 tablets (1,000 Units total) by mouth daily 02/28/2023 added in this encounter Care Teams Radiographer Cardiac Catheterization Relationship Specialty Start Date End Date Daily Cruz MD PCP - General Family Medicine 03/04/21 documented as of this encounter
--- OUTSIDE RECORDS SUMMARY | 2024-02-21 19:35 | XMS_ITS | Encounter Summary ---
Author Organization [facility] Address [address] [place] [address] Phone Care Team Providers Care Seam Feller Name Role Phone Daily Cruz MD Primary Care Provider [phone] [phone] Reason for Visit * Reason Comments Injections Encounter Details Date Type Department Care Team (Latest Contact Info) Description 12/09/2022 10:30 AM CDT Clinical Support [facility] Allergy and Immunology [address] [facility] [address] [place] [address] Seasonal allergic rhinitis due to [...] drink containing alc ohol? Monthly or less 11/25/2022 Q2: How many drinks containi ng alcohol do you have on a typical day when you are drinking? 1 or 2 11/25/2022 Q3: How often do you have si x or more drinks on one occasion? 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 Generated date: 2022-12-09 The injection was administered by egrobe at 2022-12-09 10:34:03. The patient received a 0.2 mL dose from Rx #[id number] out of the 1:93427/SLVR vial, named Vial 1 Trees, in their Upper right arm. Note: Next step per plan. No dose rules adjustments required. Recorded local reaction(s): None. Recorded systemic reaction: N. Vial Concentration:44668 Vial Color:SLVR A summary of Jud Sheppard injection. Generated date: 2022-12-09 The injection was administered by egrobe at 2022-12-09 10:34:03. The patient received a 0.2 mL dose from Rx #[id number] out of the 1:16131/SLVR vial, named Vial 2 Grasses\Weeds, in their Lower right arm. Note: Next step per plan. No dose rules adjustments required. Recorded local reaction(s): None. Recorded systemic reaction: N. Vial Concentration:78654 Vial Color:SLVR A summary of Jud Sheppard injection. Generated date: 2022-12-09 The injection was administered by egrobe at 2022-12-09 10:34:03. The patient received a 0.2 mL dose from Rx #[id number] out of the 1:32669/SLVR vial, named Vial 3 Mold,in their Upper left arm. Note: Next step per plan. No dose rules adjustments required. Recorded local reaction(s): None. Recorded systemic reaction: N. Vial Concentration:66048 Vial Color:SLVR A summary of Jud Sheppard injection. Generated date: 2022-12-09 The injection was administered by egrobe at 2022-12-09 10:34:03. The patient received a 0.2 mL dose from Rx #[id number] out of the 1:06520/SLVR vial, named Vial 4 Cat\Dog\Mites, in their Lower left arm. Note: Next step per plan. No dose rules adjustments required. Recorded local reaction(s): None. Recorded systemic reaction: N. Vial Concentration:97379 Vial Color:SLVR documented in this encounter Plan of Treatment [...] First Orde red Date IMMUNOTHERAPY PRESCRIPTION 1 12/09/2022 documented in this encounter Care Teams Seam Feller Relationship Specialty Start Date End Date Daily Cruz MD PCP - General Family Medicine 03/04/21 documented as of this encounter
--- OUTSIDE RECORDS SUMMARY | 2024-02-21 19:35 | XMS_ITS | Encounter Summary ---
Author Organization [facility] Address [address] [place] [address] Phone Care Team Providers Care Security Lead Name Role Phone Daily Cruz MD Primary Care Provider [phone] [phone] Reason for Visit * Reason Comments Injections Encounter Details Date Type Department Care Team (Latest Contact Info) Description 12/06/2022 10:20 AM CDT Clinical Support [facility] Allergy and Immunology [address] [facility] [address] [place] [address] Seasonal allergic rhinitis due to [...] on file 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 Generated date: 2022-12-06 The injection was administered by 5th Fingers at 2022-12-06 10:37:15. The patient received a 0.1 mL dose from Rx #[id number] out of the 1:55601/SLVR vial, named Vial 3 Mold,in their Upper right arm. Note: Next step per plan. No dose rules adjustments required. Recorded local reaction(s): None. Recorded systemic reaction: N. Vial Concentration:48361 Vial Color:SLVR A summary of Jud J Rainss injection. Generated date: 2022-12-06 The injection was administered by 5th Fingers at 2022-12-06 10:37:15. The patient received a 0.1 mL dose from Rx #[id number] out of the 1:11785/SLVR vial, named Vial 1 Trees, in their Upper left arm. Note: Next step per plan. No dose rules adjustments required. Recorded local reaction(s): None. Recorded systemic reaction: N. Vial Concentration:25736 Vial Color:SLVR A summary of Jud J Rainss injection. Generated date: 2022-12-06 The injection was administered by 5th Fingers at 2022-12-06 10:37:15. The patient received a 0.1 mL dose from Rx #[id number] out of the 1:40985/SLVR vial, named Vial 4 Cat\Dog\Mites, in their Lower right arm. Note: Next step per plan. No dose rules adjustments required. Recorded local reaction(s): None. Recorded systemic reaction: N. Vial Concentration:65167 Vial Color:SLVR A summary of Jud J Rainss injection. Generated date: 2022-12-06 The injection was administered by 5th Fingers at 2022-12-06 10:37:15. The patient received a 0.1 mL dose from Rx #[id number] out of the 1:56472/SLVR vial, named Vial 2 Grasses\Weeds, in their Lower left arm. Note: Next step per plan. No dose rules adjustments required. Recorded local reaction(s): None. Recorded systemic reaction: N. Vial Concentration:56399 Vial Color:SLVR documented in this encounter Plan [...] First Orde red Date IMMUNOTHERAPY PRESCRIPTION 1 12/06/2022 documented in this encounter Care Teams Security Lead Relationship Specialty Start Date End Date Daily Cruz MD PCP - General Family Medicine 03/04/21 documented as of this encounter
--- OUTSIDE RECORDS SUMMARY | 2024-02-21 19:35 | XMS_ITS | Encounter Summary ---
Author Organization [facility] Healthcare Address [address] [place] [address] Care Team Providers Care Anesthesiologist Assistant Certified Name Role Phone Daily Cruz MD Primary Care Provider [phone] [phone] Reason for Referral * MRI/CAT/PET Scan (Routine) - Closed Specialty Diagnoses / Procedures Referred By Contac t Referred To Contact Radiology Diagnoses Abnormal CT of the head Procedures MRI Brain W WO Contrast (Pituitary) Daily Cruz MD Phone: tel: fax: [facility] [address] [place] [address] Referral ID Status Reason Start Date Expiration Date Visits Re quested Visits Authorized [id number] Closed 12/05/2022 01/04/2024 1 1 Reason for Visit * Reason Onset Date Comments Medical Question/Miscellaneous 12/01/2022 Encounter Details Date Type Department Care Team (Late st Contact Info) Description 12/01/2022 Telephone [facility] Medical Group Family Medicine at [place] [address] [facility] [address] [place] [address] Daily Cruz MD [address] [place] [address] [address] [place], [place] [id number] Medical Question/Miscellaneous Social History Tobacco Use Types [...] file Legal Sex Female 3:37 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 Gender Identity Female 03/02/2020 4:27 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 Sexual Orientation Straight 07/10/2019 11 :13 PM CDT documented as of this encounter Miscellaneous Notes * Telephone Encounter - Kylah Tejada - 12/07/2022 7:59 AM CDT [email or web address] message sent to patient * Telephone Encounter - Daily Cruz MD - 12/07/2022 6:16 AM CDT The nodule seems to be small, so not sure it would be symptomatic, but would like to await MRI brain and schedule her for follow up 1-2 days after scheduled date * Telephone Encounter - Kylah Tejada - 12/06/2022 1:46 PM CDT Patient would like to know if you will take a look at her CT, (agreed with having the MRI done and given number to call and schedule). She has had previous CT's done and would like to know if this nodule has grown in size?Her headaches and photophobia have gotten worse so she feels this may be whatis causing this. * Telephone Encounter - Kylah Tejada - 12/05/2022 11:14 AM CDT Order placed * Telephone Encounter - Daily Cruz MD - 12/04/2022 1:12 PM CDT Please order with diagnosis : brain nodule * Telephone Encounter - Kylah Tejada - 12/01/2022 10:36 AM CDT Received call from [employer], patient had CT of the head done yesterday no acute findings however a nodule was found on the anterior aspect of the sella. They are recommending patient get a Pituitary protocol MRI of the brain W&WO contrast. Ok to order? Order pended * Telephone Encounter - May - 12/01/2022 10:31 AM CDT Medical Question/Miscellaneous Caller???s Concern: nahun called from radiology wanted a nurse or ma?/ warmed trans to the backline Caller???s Call back #: [phone] Does message need to be routed? No documented in this encounter Plan of Treatment [...] * MRI Brain W WO Contrast (Pituitary) (12/13/2022 8:29 AM CDT) Anatomical Region Laterality Modality Head and Neck N/A Magnetic Resonan ce 12/13/2022 9:18 AM CDT Impressions 12/13/2022 10:25 AM CDT Ovoid, intrinsically T1 hyperintense 6 mm hypoenhancing nodule within the anterior pituitary. Diagnostic considerations include a pituitary microadenoma or Rathke's cleft cyst. Attention on follow up is recommended. Dictated by: Ronaldo Gant MD The radiology attending physician has personally reviewed this study, and had reviewed and/or edited this written report and agrees with it. Electronically signed by: Sereg Strong MD Narrative 12/13/2022 10:25 AM CDT EXAMINATION: Magnetic resonance imaging (MRI) of the brain and brainstem without and with contrast. HISTORY: Nodule TECHNIQUE: Multiplanar multi-weighted MRI of the brain and brainstem was performed without and with ??intravenous contrast using the pituitary protocol. This included acquisitions showing dynamic contrast enhancement of the sella turcica in the coronal plane and a post-contrast T1-Stealth sequence. Contrast information: 20 mL Gadoterate Meglumine COMPARISON: ??CT 11/30/2022 and MRI 02/28/2020. FINDINGS: There is an intrinsically T1 hyperintense rounded 6 mm area of hypoenhancement within the anterior pituitary gland which has increased in size since the prior MRI from 2020 and correlates with the hyperdense nodule seen on recent CT. The optic chiasm and orbits are normal. The scalp and calvarium are normal. The superior sagittal sinus demonstrates normal venous flow. The corpus callosum is normal in shape and signal intensity. The posterior fossa is unremarkable. The brainstem and craniocervical junction are unremarkable. The ventricles are normal in size and position without evidence of hydrocephalus. The paranasal sinuses are normal except for a small mucous retention cyst within the left maxillary sinus. The visualized portions of the mastoids are unremarkable. The orbits appear normal. Normal flow voids are demonstrated in the carotid arteries and basilar artery. Procedure Note Serge Strong MD - 12/13/2022 EXAMINATION: Magnetic resonance imaging (MRI) of the brain and brainstem without and with contrast. HISTORY: Nodule TECHNIQUE: Multiplanar multi-weighted MRI of the brain and brainstem was performed without and with intravenous contrast using the pituitary protocol. This included acquisitions showing dynamic contrast enhancement of the sella turcica in the coronal plane and a post-contrast T1-Stealth sequence. Contrast information: 20 mL Gadoterate Meglumine COMPARISON: CT 11/30/2022 and MRI 02/28/2020. FINDINGS: There is an intrinsically T1 hyperintense rounded 6 mm area of hypoenhancement within the anterior pituitary gland which has increased in size since the prior MRI from 2020 and correlates with the hyperdense nodule seen on recent CT. The optic chiasm and orbits are normal. The scalp and calvarium are normal. The superior sagittal sinus demonstrates normal venous flow. The corpus callosum is normal in shape and signal intensity. The posterior fossa is unremarkable. The brainstem and craniocervical junction are unremarkable. The ventricles are normal in size and position without evidence of hydrocephalus. The paranasal sinuses are normal except for a small mucous retention cyst within the left maxillary sinus. The visualized portions of the mastoids are unremarkable. The orbits appear normal. Normal flow voids are demonstrated in the carotid arteries and basilar artery. IMPRESSION: Ovoid, intrinsically T1 hyperintense 6 mm hypoenhancing nodule within the anterior pituitary. Diagnostic considerations include a pituitary microadenoma or Rathke's cleft cyst. Attention on follow up is recommended. Dictated by: Ronaldo Gant MD The radiology attending physician has personally reviewed this study, and had reviewed and/or edited this written report and agrees with it. Electronically signed by: Serge Strong MD Daily Cruz MD IM MRI PROCEDURES Final Result documented in this encounter Visit Diagnoses Diagnosis Abnormal CT of the head- Primary Nonspecific (abnormal) findings on radiological and other examination of skull and head Abnormal CT of the head Nonspecific (abnormal) findings on radiological and other examination of skull and head documented in this encounter Care Teams Anesthesiologist Assistant Certified Relationship Specialty Start Date End Date Daily Cruz MD PCP - General Family Medicine 03/04/21 documented as of this encounter
--- OUTSIDE RECORDS SUMMARY | 2024-02-21 19:35 | XMS_ITS | Encounter Summary ---
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
--- OUTSIDE RECORDS SUMMARY | 2024-02-21 19:35 | XMS_ITS | Encounter Summary ---
Author Organization [facility] Address [address] [place] [address] Phone Care Team Providers Care Rail Doweling Machine Operator Name Role Phone Daily Cruz MD Primary Care Provider [phone] Reason for Visit * Reason Comments Injections Encounter Details Date Type Department Care Team (Latest Contact Info) Description 01/02/2023 1:00 PM [facility]AN [facility]I Clinical Support [facility] Allergy and Immunology [address] [place] [address] Seasonal allergic rhinitis due to [...] on file Legal Sex Female 3:37 PM LEAN SENSEI Gender Identity Female 03/02/2020 4:27 PM LEAN SENSEI Sexual Orientation Straight 07/10/2019 11 :13 PM CDT documented as of this encounter Progress Notes * Tony, brittany ZenaidaSydney, JENNIFER - 01/02/2023 1:00 PM CST A summary of Jud J Motiejaitiss injection. Generated date: 2023-01-02 The injection was administered by [facility] at 2023-01-02 13:09:02. The patient received a 0.5 mL dose from Rx #[id number] out of the 1:05976/SLVR vial, named Vial 3 Mold,in their Upper right arm. Note: Next step per plan. No dose rules adjustments required. Recorded local reaction(s): None. Recorded systemic reaction: N. Vial Concentration:35421 Vial Color:SLVR A summary of Jud J Motiejaitiss injection. Generated date: 2023-01-02 The injection was administered by [employer] at 2023-01-02 13:09:01. The patient received a 0.5 mL dose from Rx #[id number] out of the 1:53382/SLVR vial, named Vial 4 Cat\Dog\Mites, in their Lower right arm. Note: Next step per plan. No dose rules adjustments required. Recorded local reaction(s): None. Recorded systemic reaction: N. Vial Concentration:43823 Vial Color:SLVR A summary of Jud J Motiejaitiss injection. Generated date: 2023-01-02 The injection was administered by [employer] at 2023-01-02 13:09:01. The patient received a 0.5 mL dose from Rx #[id number] out of the 1:50818/SLVR vial, named Vial 2 Grasses\Weeds, in their Lower left arm. Note: Next step per plan. No dose rules adjustments required. Recorded local reaction(s): None. Recorded systemic reaction: N. Vial Concentration:83631 Vial Color:SLVR A summary of Jud J Motiejaitiss injection. Generated date: 2023-01-02 The injection was administered by [employer] at 2023-01-02 13:09:01. The patient received a 0.5 mL dose from Rx #[id number] out of the 1:40606/SLVR vial, named Vial 1 Trees, in their Upper left arm. Note: Next step per plan. No dose rules adjustments required. Recorded local reaction(s): None. Recorded systemic reaction: N. Vial Concentration:55320 Vial Color:SLVR SENSEI documented in this encounter Plan of Treatment [...] First Orde red Date IMMUNOTHERAPY PRESCRIPTION 1 01/02/2023 documented in this encounter Care Teams Rail Doweling Machine Operator Relationship Specialty Start Date End Date Daily Cruz MD PCP - General Family Medicine 03/04/21 documented as of this encounter
--- OUTSIDE RECORDS SUMMARY | 2024-02-21 19:35 | XMS_ITS | Encounter Summary ---
Author Organization [facility] Healthcare Address [address] [place] [address] Care Team Providers Care Booster Operator Name Role Phone Daily Cruz MD Primary Care Provider [phone] Reason for Visit * Auth/Cert (Routine) Specialty Diagnoses / Procedures Referred By Matt t Referred To Contact Diagnoses RLQ abdominal pain Blood in stool Gastroesophageal reflux disease without esophagitis Diarrhea, unspecified type RLQ abdominal pain [R10.31] Blood in stool [K92.1] Gastroesophageal reflux disease without esophagitis [K21.9] Diarrhea, unspecified type [R19.7] Procedures MA ESOPHAGOGASTRODUODENOSCOPY TRANSORAL DIAGNOSTIC MA COLONOSCOPY,DIAGNOSTIC ESOPHAGOGASTRODUODENOSCOPY COLONOSCOPY Referral ID Status Reason Start Date Expiration Date Visits Re quested Visits Authorized [id number] 1 1 Encounter Details Date Type Department Care Team (Latest Contact Info) Description 01/03/2023 6:44 AM [facility] - 01/03/2023 9:32 AM [facility] [employer] [employer] Hospital Encounter [facility] [address] [place] [address] Jeffrey Fleming MD [facility] [address] [address] RLQ abdominal pain; Blood in stool; Gastroesophageal reflux disease without esophagitis; Diarrhea, unspecified type Discharge Disposition: Discharge to home or self [...] on file Legal Sex Female 3:37 PM [employer] Gender Identity Female 03/02/2020 4:27 PM [employer] [employer] Sexual Orientation Straight 07/10/2019 11 :13 PM CDT documented as of this encounter Last Filed Vital Signs Vital Sign Reading Time Taken Comments Blood Pressure 120/90 01/03/2023 8:54 AM [facility] [employer] [employer] Pulse 54 01/03/2023 8:54 AM [facility] [employer] [employer] Temperature 36.4 ??C (97.5 ??F) 01/03/2023 8:26 AM CS T Respiratory Rate 16 01/03/2023 8:54 AM [facility] [employer] [employer] Oxygen Saturation 100% 01/03/2023 8:54 AM [facility] [employer] Inhaled Oxygen Concentration - - Weight - - Height - - Body Mass Index - - documented in this encounter Medications at Time of Discharge acetaminophen-asp irin-caffeine (EXCEDRIN MIGRAINE) 250-250-65 mg per tablet Take 1 tablet by mouth every 6 (six) hours as needed 4 albuterol HFA (PROVENTIL HFA,VENTOLIN HFA,PROAIR HFA) 90 mcg/actuation inhalerIndication s:Acute bronchitis due to other specified organisms Inhale [...] daily 5,000 4 famotidine (PEPCID) 40 mg tabletIndications :Gastroesophageal reflux disease without esophagitis Take 1 tablet (40 mg total) by mouth daily 30 tablet 08/30/2022 3 famotidine (PEPCID) 40 mg tabletIndications :Gastroesophageal reflux disease without esophagitis TAKE 1 TABLET BY MOUTH EVERY DAY 30 tablet 3 01/20/2023 4 fexofenadine (ARIANNA) 180 mg tabletIndications :Non-seasonal allergic rhinitis due to fungal spores Take 1 tablet (180 mg total) by mouth 2 (two) times a day 180 tablet 3 07/13/2022 4 FLUoxetine (PROzac) 40 mg capsuleIndication s:Anxiety and depression Take 1 capsule (40 mg total) by mouth daily 30 capsule 5 12/12/2022 4 fluticasone propionate (FLONASE) 50 mcg/actuation nasal sprayIndications: Reactive airway disease without asthma,Allergic reaction, initial encounter Administer 2 sprays into each nostril daily 48 mL 1 02/25/2022 4 hydrocortisone 2.5 % ointmentIndicatio ns:Rash Apply topically 2 (two) times a day 30 g 03/02/2022 4 ibuprofen (ADVIL,MOTRIN) 800 mg tabletIndications :Acute bilateral low back pain without sciatica Take 1 tablet (800 mg total) by mouth 3 (three) times a day 90 tablet 09/27/2021 4 magnesium oxide 400 mg magnesium capsule Take 400 mg by mouth daily 4 montelukast (SINGULAIR) 10 mg tabletIndications :Reactive airway disease without asthma,Allergic reaction, initial encounter [...] 3 01/03/2023 4 phentermine (ADIPEX-P) 37.5 mg tabletIndications :Morbid obesity with BMI of 40.0-44.9, adult (HCC) Take 1 tablet (37.5 mg total) by mouth daily before breakfast 30 tablet 2 08/17/2022 4 POTASSIUM CHLORIDE ORAL Take by mouth daily 4 rimegepant (Nurtec ODT) tablet,disintegra tingIndications:M igraine,Migraine Prevention Take 1 tablet (75 mg total) by mouth as needed (take every other day PRN) 16 tablet 2 12/15/2022 4 sodium, potassium & mag sulfates (SUPREP BOWEL KIT) 17.5-3.13-1.6 gram recon soln MIX 1 BOTTLE WITH WATER, TAKE AT 4PM THE DAY BEFORE PROCEDURE. DRINK 2ND BOTTLE 6 HRS BEFORE ARRIVAL 12/29/2022 4 triamcinolone (KENALOG) 0.1 % creamIndications: Allergic contact dermatitis, unspecified trigger Apply topically 2 (two) times a day as needed for rash Do not use on the face or in the groin 454 g 2 06/25/2021 4 documented as of this encounter Ordered Prescriptions Prescription Sig Dispense Quantity Refills Last Filled Start Date End Date omeprazole (PriLOSEC) 20 mg capsule Take 1 capsule (20 mg total) by mouth 2 (two) times a day before breakfast and dinner 60 capsule 3 01/03/2023 4 documented in this encounter Discharge Disposition Disposition Code Departure Means Destination Comment s Discharge to home or self care documented in this encounter H&P Notes * Jeffrey Fleming MD - 01/03/2023 7:10 AM CST Gastroenterology History and Physical SUBJECTIVE: Patient is a 32 y.o. female for EGD and Colonoscopy INDICATIONS: Chronic GERD Abdominal pain Rectal bleeding Alternating constipation and diarrhea Past Medical History: Diagnosis Date ADHD (attention deficit hyperactivity disorder) Anxiety Arthritis Asthma Brain concussion 2010, 2009 Chronic bronchitis (HCC) Depression Gastric reflux GERD (gastroesophageal reflux disease) PRN tums IIH (idiopathic intracranial hypertension) Pseudotumor cerebri. reports last spinal tap 2017. 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 Kidney stone 2019 Low back pain Lymphedema [...] activity, EEG negative SOB (shortness of breath) Medications Prior to Admission Medication Sig Dispense Refill Last Dose bumetanide (BUMEX) 1 mg tablet Take 1 tablet (1 mg total) by mouth daily 12/30/2022 cholecalciferol (VITAMIN D-3) 5,000 unit tablet Take 0.2 tablets (1,000 Units total) by mouth dailyPast Week ergocalciferol, vitamin D2, 50 mcg (2,000 unit) tablet Take 2 tablets by mouth daily 5,000 Past Week famotidine (PEPCID) 40 mg tablet Take 1 tablet (40 mg total) by mouth daily 30 tablet 0 12/30/2022 fexofenadine (ARIANNA) 180 mg tablet Take 1 tablet (180 mg total) by mouth 2 (two) times a day 180 tablet 3 12/30/2022 FLUoxetine (PROzac) 40 mg capsule Take 1 capsule (40 mg total) by mouth daily 30 capsule 5 12/30/2022 magnesium oxide 400 mg magnesium capsule Take 400 mg by mouth daily Past Week nystatin 100,000 unit/mL suspension Take 5 mL (500,000 Units total) by mouth as needed Past Week POTASSIUM CHLORIDE ORAL Take by mouth daily Past Week rimegepant (Nurtec ODT) tablet,disintegrating Take 1 tablet (75 mg total) by mouth as needed (take every other day PRN) 16 tablet 2 Past Week pqkkzrjehmwex-wqdkiwl-jmtkbjws (EXCEDRIN MIGRAINE) 250-250-65 mg per tablet Take 1 tablet by mouth every 6 (six) hours as needed Unknown albuterol HFA (PROVENTIL HFA,VENTOLIN HFA,PROAIR HFA) 90 mcg/actuation inhaler Inhale 2 puffs 4 (four) times a day for 5 days Use only as needed after those 5 days 6.7 each 1 cyclobenzaprine (FLEXERIL) 10 mg tablet Unknown fluticasone propionate (FLONASE) 50 mcg/actuation nasal spray Administer 2 sprays into each nostrildaily 48 mL 1 Unknown hydrocortisone 2.5 % ointment Apply topically 2 (two) times a day 30 g 0 ibuprofen (ADVIL,MOTRIN) 800 mg tablet Take 1 tablet (800 mg total) by mouth 3 (three) times a day 90 tablet 0 Unknown montelukast (SINGULAIR) 10 mg tablet TAKE 1 TABLET BY MOUTH EVERY DAY AT NIGHT 90 tablet 0 phentermine (ADIPEX-P) 37.5 mg tablet Take 1 tablet (37.5 mg total) by mouth daily before [id number] tablet 2 More than a month triamcinolone (KENALOG) 0.1 % cream Apply topically 2 (two) times a day as needed for rash Do not use on the face or in the groin 454 g 2 Allergies Allergen Reactions Acetazolamide Swollen tongue [...] comments) SEIZURE ACTIVITY Oxycodone-Acetaminophen Nausea And Vomiting Review of Systems: Respiratory: negative Cardiovascular: negative Gastrointestinal: positive for abdominal pain, constipation, diarrhea, and rectal bleeding and GERD OBJECTIVE: There were no vitals filed for this visit. General Appearance: Well-developed, no distress Lungs: Clear to auscultation bilaterally, respirations unlabored Cardiovascular: Regular rate and rhythm, S1 and S2 normal Abdomen: Soft, non-tender, bowel sounds active all four quadrants, no masses, no organomegaly, non-distended Neurologic: Alert & oriented x 3 PLAN: EGD/Colonoscopy The risks (risks of bleeding, infection, perforation requiring surgery, missed polyps/cancer, dental injury, aspiration pneumonia, anesthesia complications such as drug reaction and cardiopulmonary complications including rare chance of ), benefits, and alternatives of the planned procedure were explained to the patient who understands and consents to having procedure done. [employer] documented in this encounter Procedure Notes * Jeffrey Fleming MD - 01/03/2023 7:58 AM CSTAssociated Order(s): EGD [facility] GI ENDOSCOPY Patient Name: Jud Crocker Procedure Date: 01/03/2023 7:58 AM Date of : 1990 Admit Type: Outpatient Age: 32 Gender: Female Attending MD: Jeffrey Fleming M.D. Room: [facility] ENDOSCOPY ROOM 06 Note Status: Finalized Procedure: Upper GI endoscopy Indications: Abdominal pain, Gastro-esophageal reflux disease Referring MD: Daily Cruz M.D. Providers: Jeffrey Fleming M.D. Medicines: Monitored Anesthesia Care Complications: No immediate complications. Estimated Blood Loss: Estimated blood loss: none. Procedure: Pre-Anesthesia Assessment: - Prior to the procedure, a History and Physical was performed, and patient medications and allergies were reviewed. The risks and benefits of the procedure and the sedation options and risks were discussed with the patient. All questions were answered and informed consent was obtained. Patient identification and proposed procedure were verified. After reviewing the risks and benefits, the patient was deemed in satisfactory condition to undergo the procedure. The anesthesia plan was to use monitored anesthesia care (MAC). Immediately prior to administration of medications, the patient was re-assessed for adequacy to receive sedatives. The heart rate, respiratory rate, oxygen saturations, blood pressure, adequacy of pulmonary ventilation, and response to care were monitored throughout the procedure. The physical status of the patient was re-assessed after the procedure. The benefits, risks, and alternatives to the procedure and sedation were discussed and informed consent was obtained. The scope was passed under direct vision. The GIF-H180 upper endoscope was introduced through the mouth, and advanced to the second part of duodenum. The upper GI endoscopy was accomplished without difficulty. The patient tolerated the procedure well. Findings: The Z-line was irregular and was found in the distal esophagus. This was biopsied with a cold forceps for evaluation to rule out Carpio's Esophagus. Mild inflammation characterized by erythema was found in the stomach. Biopsies were taken with a cold forceps for Helicobacter pylori testing. The examined duodenum was normal. Biopsies for histology were taken with a cold forceps for evaluation of celiac disease. The cardia and gastric fundus were normal on retroflexion. The exam was otherwise without abnormality. Impression: - Z-line irregular, in the distal esophagus. Biopsied. - Gastritis. Biopsied. - Normal examined duodenum. Biopsied. - The examination was otherwise normal. Recommendation: - Patient has a contact number available for emergencies. The signs and symptoms of potential delayed complications were discussed with the patient. Return to normal activities tomorrow. Written discharge instructions were provided to the patient. - Resume previous diet. - Continue present medications. - Await pathology results. - Return to GI clinic as previously scheduled. Jeffrey Fleming M.D. Jeffrey Fleming M.D. 01/03/2023 8:27:15 AM . Number of Addenda: 0 Note Initiated On: 01/03/2023 7:58 AM Recognized by the [employer] for promoting quality in endoscopy [employer] * Jeffrey Fleming MD - 01/03/2023 7:58 AM CSTAssociated Order(s): COLONOSCOPY [facility] GI ENDOSCOPY Patient Name: Jud Crocker Procedure Date: 01/03/2023 7:58 AM Date of : 1990 Admit Type: Outpatient Age: 32 Gender: Female Attending MD: Jeffrey Fleming M.D. Room: [facility] ENDOSCOPY ROOM 06 Note Status: Finalized Procedure: Colonoscopy Indications: Chronic diarrhea, Rectal bleeding Referring MD: Daily Cruz M.D. Providers: Jeffrey Fleming M.D. Medicines: Monitored Anesthesia Care Complications: No immediate complications. Estimated Blood Loss: Estimated blood loss: none. Procedure: Pre-Anesthesia Assessment: - Prior to the procedure, a History and Physical was performed, and patient medications and allergies were reviewed. The risks and benefits of the procedure and the sedation options and risks were discussed with the patient. All questions were answered and informed consent was obtained. Patient identification and proposed procedure were verified. After reviewing the risks and benefits, the patient was deemed in satisfactory condition to undergo the procedure. The anesthesia plan was to use monitored anesthesia care (MAC). Immediately prior to administration of medications, the patient was re-assessed for adequacy to receive sedatives. The heart rate, respiratory rate, oxygen saturations, blood pressure, adequacy of pulmonary ventilation, and response to care were monitored throughout the procedure. The physical status of the patient was re-assessed after the procedure. The benefits, risks and alternatives of the procedure and sedation were discussed and informed consent was obtained. All questions were answered. Please refer to the signed informed consent document in the medical record. The scope was passed under direct vision. The [id number]-[id number] colonoscope was introduced through the anus and advanced to the terminal ileum. The colonoscopy was performed without difficulty. The patient tolerated the procedure well. The quality of the bowel preparation was good. Scope withdrawal time was 9 minutes. Prep was administered in a split dose. Findings: The perianal and digital rectal examinations were normal. The terminal ileum appeared normal. Non-bleeding internal hemorrhoids were found during retroflexion. The hemorrhoids were small. Biopsies for histology were taken with a cold forceps from the right colon and left colon for evaluation of microscopic colitis. The exam was otherwise without abnormality. Impression: - The examined portion of the ileum was normal. - Non-bleeding internal hemorrhoids. - The examination was otherwise normal. - Biopsies were taken with a cold forceps from the right colon and left colon for evaluation of microscopic colitis. Recommendation: - Patient has a contact number available for emergencies. The signs and symptoms of potential delayed complications were discussed with the patient. Return to normal activities tomorrow. Written discharge instructions were provided to the patient. - High fiber diet. - Continue present medications. - Return to GI clinic as previously scheduled. - Repeat colonoscopy at age 46 for screening. Jeffrey Fleming M.D. Jeffrey Fleming M.D. 01/03/2023 8:29:14 AM . Number of Addenda: 0 Note Initiated On: 01/03/2023 7:58 AM Recognized by the [employer] for promoting quality in endoscopy [employer] documented in this encounter Miscellaneous Notes * Result Encounter Note - Fadumo Gallardo CMA - 01/03/2023 9:32 AM [employer] Patient called with the findings and recommendations made by Dr. Fleming. The patient verbalized an understanding to all information given and stated. The patient had no further questions or concerns and the call was ended. The patient will follow up accordingly. [employer] * Result Encounter Note - Daily Cruz MD - 01/03/2023 9:32 AM [employer] Patient already seeing specialist for this * Result Encounter Note - Daily Cruz MD - 01/03/2023 9:32 AM [employer] Patient already seeing specialist for this * Perioperative Nursing Note - Stephenie Rivero RN - 01/03/2023 9:22 AM [employer] Waiting on ride to arrive. Ready for discharge since 0900. [employer] * Pre-Procedure Instructions - Dequan Ang RN - 12/30/2022 2:12 PM [employer] -No alcohol or smoking 12 hours before surgery -[place] teeth in the morning but don't swallow any of the water -shower or bathe, don't apply powders or lotions -Expect to remove wigs, dentures, partials, contact lenses, body piercing's -Leave all jewelry and valuables at home -Bring your glasses and hearing aides -Make plans for a responsible adult to bring you home -Bring a living will or POA paperwork if you have it -Follow GI physician instructions regarding blood thinners and vitamins: understands when to hold medication. -Bring inhalers: n/a -Take prep according to GI physician: Has instructions and no further questions at this time. -Please take the following medications with a sip of water the AM of the procedure: n/a -Covid: No Covid like symptoms at this time. --Pt. Is to arrive at 0700 for a 0800 EGD and colonoscopy on 01/03/[address] Fleming. --Pt. States that her is able to drop her off and she will have a friend pick her up after the procedure. Told pt. In order to have to procedure done an adult will need to be with her at discharge. Pt. Stated she understood. [employer] documented in this encounter Plan of Treatment [...] Procedure Name Priority Date/Time Associated Diagnosis Comments SURGICAL PATHOLOGY Routine 01/03/2023 8:06 AM [employer] RLQ abdominal pain Blood in stool Gastroesophageal reflux disease without esophagitis Diarrhea, unspecified type EGD 01/03/2023 7:58 AM [employer] COLONOSCOPY 01/03/2023 7:58 AM [employer] COLON BIOPSY 01/03/2023 7:55 AM [employer] RLQ abdominal pain Blood in stool Gastroesophageal reflux disease without esophagitis Diarrhea, unspecified type ESOPHAGOGASTRODUODENOSCOPY BIOPSY 01/03/2023 7:55 AM [employer] RLQ abdominal pain Blood in stool Gastroesophageal reflux disease without esophagitis Diarrhea, unspecified type POCT HCG, URINE Routine 01/03/2023 7:42 AM [employer] documented in this encounter Results * Surgical pathology (01/03/2023 8:06 AM [facility]) Tissue (Duodenum, Biopsy) 01/03/2023 8:06 AM [employer] Tissue (Gastric/Stomach biopsy) 01/03/2023 8:07 AM [employer] Tissue (Esophageal biopsy) 01/03/2023 8:08 AM [employer] Tissue (Colon, Biopsy) 01/03/2023 8:13 AM [employer] Narrative PATHOLOGY [facility] - 01/04/2023 11:25 AM [employer] [facility] Department of Pathology [address] [place] [address] ?? Note to Patients: ??This report may contain a detailed description of human tissue sent by a health care provider to the laboratory for pathologic evaluation. ??The content of this report is essential for diagnosis and may provide important critical findings. ??This information may be unfamiliar to patients to review without a medical professional present. ?? It is advised that the patient review this report in the presence of a health care provider who can answer questions and explain the details. Final Report Patient Name: JUD CROCKER : ??1990 (Age: 32) Gender: ??F Address: ??[address] [place] [address] [address] [place], [place] ??[address] [facility] #: [id number] Service: Gastro Location: Patient Type: [facility] OUTPATIENT ? Taken: 01/03/2023 Received: 01/03/2023 Accessioned: 01/03/2023 Reported: 01/04/2023 Physician(s): Noemí Dumont Dr., M.D. Diagnosis: A. ??Duodenal biopsy: ? - Duodenal mucosa, no diagnostic abnormalities are identified ? - No intraepithelial lymphocytosis or villous atrophy noted ?? B. ??Stomach, biopsy: ? - Antral and oxyntic mucosa with mild inactive chronic gastritis ? - Negative for intestinal metaplasia or dysplasia ? - No Helicobacter pylori like organisms are identified on H&E ?? C. ??Distal esophagus, biopsy: ? - Esophageal squamous and gastric cardiac-type mucosa, no diagnostic abnormality identified ? - Negative for intestinal metaplasia or dysplasia ?? D. ??Colon, random, biopsies: ? - Colonic mucosa, no diagnostic abnormalities are identified ? - No evidence of microscopic colitis Namrata Ji M.D. Report Electronically Reviewed and Signed Out By ??Namrata Ji M.D. 01/04/2023 11:25:46 Specimen(s) Received: A: Duodenal biopsy B: Gastric body antrum biopsy C: Distal esophageal biopsy D: Random colon biopsies Microscopic Description: Microscopic examination substantiates the above cited diagnosis. Clinical History: The patient is a 32-year-old woman with right lower quadrant abdominal pain, blood in stool, GERD without esophagitis and unspecified diarrhea. ??Operative procedure: upper GI endoscopy and colonoscopy with biopsy. Gross Description Received in four formalin jars labeled with the patient's identifiers. A. ??Labeled duodenal Bx rule out celiac and consists of three hsu-pink, friable tissue fragments ranging from 0.2-0.4 cm. ??Entirely submitted. ?? Labeled A1. Jar 0. B. ??Labeled gastric body antrum Bx rule out H pylori and consists of two hsu- pink tissue fragments each measuring 0.3 cm. ??Entirely submitted. ?? Labeled B1. Jar 0. C. ??Labeled distal esophageal Bx rule out Barretts and consists of two pink- white, friable tissue fragments measuring 0.2 cm and 0.4 cm. ??Entirely submitted. ?? Labeled C1. Jar 0. D. ??Labeled random colon Bxs rule out microscopic colitis and consists of four hsu tissue fragments ranging from 0.4-0.5 cm. ??Entirely submitted. ?? Labeled D1. Jar 0. ?? jjb/01/03/2023 12:53 GALINA Chaudhary Microscopic slide review and interpretation for this case was performed at , Department of Surgical Pathology, [address] [place] [id number], ??[place], [place] ??[address] ?? CLIA # [id number] us Jeffrey Fleming MD LAB PATHOLOGY ORDERABLES Final R esult PATHOLOGY [facility] * EGD (01/03/2023 7:58 AM [employer]) Anatomical Region Laterality Modality Other Narrative Procedure Note Jeffrey Fleming MD - 01/03/2023 7:58 AM CST [facility] GI ENDOSCOPY Patient Name: Jud Crocker Procedure Date: 01/03/2023 7:58 AM Date of : 1990 Admit Type: Outpatient Age: 32 Gender: Female Attending MD: Jeffrey Fleming M.D. Room: [facility] ENDOSCOPY ROOM 06 Note Status: Finalized Procedure: Upper GI endoscopy Indications: Abdominal pain, Gastro-esophageal reflux disease Referring MD: Daily Cruz M.D. Providers: Jeffrey Fleming M.D. Medicines: Monitored Anesthesia Care Complications: No immediate complications. Estimated Blood Loss: Estimated blood loss: none. Procedure: Pre-Anesthesia Assessment: - Prior to the procedure, a History and Physicalwas performed, and patient medications and allergieswere reviewed. The risks and benefits of the procedureand the sedation options and risks were discussed withthe patient. All questions were answered and informed consent was obtained. Patient identification and proposed procedure were verified. After reviewingthe risks and benefits, the patient was deemed in satisfactory condition to undergo the procedure.The anesthesia plan was to use monitored anesthesiacare (MAC). Immediately prior to administration of medications, the patient was re-assessed foradequacy to receive sedatives. The heart rate, respiratory rate, oxygen saturations, blood pressure, adequacyof pulmonary ventilation, and response to care were monitored throughout the procedure. The physical status of the patient was re-assessed after the procedure. The benefits, risks, and alternatives to theprocedure and sedation were discussed and informed consentwas obtained. The scope was passed under direct vision. The GIF-H180 upper endoscope was introduced through the mouth, and advanced to the second part of duodenum. The upper GI endoscopy was accomplished without difficulty. The patient tolerated the procedure well. Findings: The Z-line was irregular and was found in the distal esophagus. Thiswas biopsied with a cold forceps for evaluation to rule out Carpio's Esophagus. Mild inflammation characterized by erythema was found in the stomach. Biopsies were taken with a cold forceps for Helicobacter pyloritesting. The examined duodenum was normal. Biopsies for histology were takenwith a cold forceps for evaluation of celiac disease. The cardia and gastric fundus were normal on retroflexion. The exam was otherwise without abnormality. Impression: - Z-line irregular, in the distal esophagus.Biopsied. - Gastritis. Biopsied. - Normal examined duodenum. Biopsied. - The examination was otherwise normal. Recommendation: - Patient has a contact number available for emergencies. The signs and symptoms of potential delayed complications were discussed with thepatient. Return to normal activities tomorrow. Written discharge instructions were provided to thepatient. - Resume previous diet. - Continue present medications. - Await pathology results. - Return to GI clinic as previously scheduled. Jeffrey Fleming M.D. Jeffrey Fleming M.D. 01/03/2023 8:27:15 AM . Number of Addenda: 0 Note Initiated On: 01/03/2023 7:58 AM Recognized by the [employer] for promoting quality in endoscopy us Jeffrey Fleming MD ENDOSCOPY PROCEDURES Final Resul t * COLONOSCOPY (01/03/2023 7:58 AM [facility]) Anatomical Region Laterality Modality Other Narrative Procedure Note Jeffrey Fleming MD - 01/03/2023 7:58 AM CST [facility] GI ENDOSCOPY Patient Name: Jud Crocker Procedure Date: 01/03/2023 7:58 AM Date of : 1990 Admit Type: Outpatient Age: 32 Gender: Female Attending MD: Jeffrey Fleming M.D. Room: [facility] ENDOSCOPY ROOM 06 Note Status: Finalized Procedure: Colonoscopy Indications: Chronic diarrhea, Rectal bleeding Referring MD: Daily Cruz M.D. Providers: Jeffrey Fleming M.D. Medicines: Monitored Anesthesia Care Complications: No immediate complications. Estimated Blood Loss: Estimated blood loss: none. Procedure: Pre-Anesthesia Assessment: - Prior to the procedure, a History and Physicalwas performed, and patient medications and allergieswere reviewed. The risks and benefits of the procedureand the sedation options and risks were discussed withthe patient. All questions were answered and informed consent was obtained. Patient identification and proposed procedure were verified. After reviewingthe risks and benefits, the patient was deemed in satisfactory condition to undergo the procedure.The anesthesia plan was to use monitored anesthesiacare (MAC). Immediately prior to administration of medications, the patient was re-assessed foradequacy to receive sedatives. The heart rate, respiratory rate, oxygen saturations, blood pressure, adequacyof pulmonary ventilation, and response to care were monitored throughout the procedure. The physical status of the patient was re-assessed after the procedure. The benefits, risks and alternatives of theprocedure and sedation were discussed and informed consentwas obtained. All questions were answered. Please referto the signed informed consent document in the medical record. The scope was passed under direct vision.The [id number]-[id number] colonoscope was introduced through theanus and advanced to the terminal ileum. The colonoscopy was performed without difficulty. The patient tolerated the procedure well. The quality of thebowel preparation was good. Scope withdrawal time was 9 minutes. Prep was administered in a split dose. Findings: The perianal and digital rectal examinations were normal. The terminal ileum appeared normal. Non-bleeding internal hemorrhoids were found during retroflexion. The hemorrhoids were small. Biopsies for histology were taken with a cold forceps from the right colon and left colon for evaluation of microscopic colitis. The exam was otherwise without abnormality. Impression: - The examined portion of the ileum was normal. - Non-bleeding internal hemorrhoids. - The examination was otherwise normal. - Biopsies were taken with a cold forceps from the right colon and left colon for evaluation of microscopic colitis. Recommendation: - Patient has a contact number available for emergencies. The signs and symptoms of potential delayed complications were discussed with thepatient. Return to normal activities tomorrow. Written discharge instructions were provided to thepatient. - High fiber diet. - Continue present medications. - Return to GI clinic as previously scheduled. - Repeat colonoscopy at age 46 for screening. Jeffrey Fleming M.D. Jeffrey Fleming M.D. 01/03/2023 8:29:14 AM . Number of Addenda: 0 Note Initiated On: 01/03/2023 7:58 AM Recognized by the [employer] for promoting quality in endoscopy Jeffrey Fleming MD ENDOSCOPY PROCEDURES Final Resul t * POCT hCG, urine (01/03/2023 7:42 AM [facility]) HCG, ur, POC Negative Negative Lot Number [id number] QC Backgroud Clear Acceptable QC Control Line Acceptable Urine 01/03/2023 7:42 AM [facility] Doe Pope MD POINT OF CARE TEST ORDERABLES Final Result documented in this encounter Visit Diagnoses Diagnosis RLQ abdominal pain Abdominal pain, right lower quadrant Blood in stool Gastroesophageal reflux disease without esophagitis Esophageal reflux Diarrhea, unspecified type documented in this encounter Admitting Diagnoses Diagnosis RLQ abdominal pain Abdominal pain, right lower quadrant Blood in stool Gastroesophageal reflux disease without esophagitis Esophageal reflux Diarrhea documented in this encounter Administered Medications Inactive Administered Medications - up to 3 most recent administrations Medication Order MAR Action Action Date Dose Rate Site Lactated Ringer's (LR) infusion 30 mL/hr, intravenous, Continuous, Starting on Mon01/03/23 at 0730, Pre-Op Restarted 01/03/2023 8:24 AM [facility] Rate/Dose Verify 01/03/2023 7:55 AM [facility] 30 mL/h r New Bag 01/03/2023 7:42 AM [facility] 30 mL/hr 30 mL/hr lidocaine (XYLOCAINE) 10 mg/mL (1 %) injection 2-10 mg 2-10 mg (0.2-1 mL), other, Once as needed, pain with IV placement, Starting on Mon01/03/23 at 0649, For 1 dose, Pre-Op, Administer volume needed to infiltrate IV site. meclizine (ANTIVERT) tablet 25 mg 25 mg, oral, Once, On Mon01/03/23 at 0745, For 1 dose, Pre-Op Given 01/03/2023 7:19 AM [facility] [employer] 25 mg sodium chloride 0.9% flush 0.5-20 mL 0.5-20 mL, intra-catheter, As needed, line care, Starting on Mon01/03/23 at 0649, Pre-Op, Flush volume based on line type and size. Flush before and after each use. documented in this encounter Discontinued Medications Medication Sig Discontinue Reason Start Date End Da te HYDROcodone-chlorphenira mine ER (TUSSIONEX PENNKINETIC) 2-1.6 mg/mL ER suspensionIndications:Ac norman bronchitis due to other specified organisms Take 5 mL by mouth every 12 (twelve) hours as needed for cough Therapy completed 12/12/2022 12/30/2022 dexAMETHasone (DECADRON) 2 mg tablet 2 tab BID x 3 days, 1 tab BID x 3 days, 1 tab qd x2 days, 1/2 tab qd x 2 days Therapy completed 12/15/2022 12/30/2022 documented as of this encounter Historical Medications * This list may reflect changes made after this encounter. bumetanide (BUMEX) 1 mg tablet Take 1 tablet (1 mg total) by mouth daily 02/28/2023 added in this encounter Active and Recently Administered Medications Times are shown in [facility]. Scheduled Medication Order 01/01/2023 01/02/2023 01/03/2023 meclizine (ANTIVERT) tablet 25 mg (COMPLETED) 25 mg, oral, Once, On Mon01/03/23 at 0745, For 1 dose, Pre-Op 0719 (Given - Provid er: Stephenie Rivero RN) Continuous Medication Order 01/01/2023 01/02/2023 01/03/2023 Lactated Ringer's (LR) infusion 30 mL/hr, intravenous, Continuous, Starting on Mon01/03/23 at 0730, Pre-Op 0742 (New Bag - Prov ider: Stephenie Rivero RN)0755 (Rate/Dose Verify - Provider: Tonie Moran CRNA)0823 (Paused - Provider: Tonie Moran CRNA - Comment: Switch to gravity)0824 (Restarted - Provider: Tonie Moran, MANAGER FACILITY)1333 (Due: Stopped) Lactated Ringer's (LR) infusion 125 mL/hr, intravenous, Continuous, Starting on Mon01/03/23 at 0915, Phase I 0915 (Due) PRN Medication Order 01/01/2023 01/02/2023 01/03/2023 diphenhydrAMINE (BENADRYL) 50 mg/mL injection 12.5 mg 12.5 mg, intravenous, Every 15 min PRN, itching, Starting on Mon01/03/23 at 0833, For 2 doses, Phase I, Max cumulative dose 50 mg., Indications: Itching hydrALAZINE (APRESOLINE) injection 5 mg 5 mg, intravenous, Administer over 2 Minutes, Every 15 min PRN, high blood pressure, Starting on Mon01/03/23 at 0833, Phase I, Max cumulative dose 20 mg. Dose if systolic BP greater than 180 AND heart rate less than 70. labetaloL (NORMODYNE,TRANDATE) injection 5 mg 5 mg, intravenous, at 30 mL/hr, Administer over 2 Minutes, Every 10 min PRN, high blood pressure, Starting on Mon01/03/23 at 0833, Phase I, Max cumulative dose 20 mg. Dose if systolic blood pressure greater than 180 AND HR greater than 70. lidocaine (XYLOCAINE) 10 mg/mL (1 %) injection 2-10 mg 2-10 mg (0.2-1 mL), other, Once as needed, pain with IV placement, Starting on Mon01/03/23 at 0649, For 1 dose, Pre-Op, Administer volume needed to infiltrate IV site. naloxone (NARCAN) 0.4 mg/mL injection 0.04-0.4 mg 0.04-0.4 mg, intravenous, Once as needed, other, excessive sedation/respiratory depression, Starting on Mon01/03/23 at 0833, For 1 dose, Phase I, Dilute 0.4 mg with 9 mL NS (final concentration 0.04 mg/mL). For respiratory depression (respiratory rate less than 6), administer 0.4 mg IVP over 30 seconds. For excessive sedation administer 0.04 mg (1 mL) every 1 minute until desired level of alertness. For IV, administer over 30 seconds., Indications: Opioid Toxicity simethicone (MYLICON) 66.7 mg/mL oral drops (CANCELED) As needed, Starting on Mon01/03/23 at 0811, Intra-Op 0811 (Given - Provid er: Jeffrey Fleming MD) sodium chloride 0.9% flush 0.5-20 mL 0.5-20 mL, intra-catheter, As needed, line care, Starting on Mon01/03/23 at 0649, Pre-Op, Flush volume based on line type and size. Flush before and after each use. documented in this encounter Orders Medications Ordered That Gerhard ht Not Have Been Administered Count Last Ordered Date First Ordered Date diphenhydrAMINE (BENADRYL) 5 0 mg/mL injection 12.5 mg 1 01/03/2023 hydrALAZINE (APRESOLINE) injection 5 mg 1 1 03/05/2022 labetaloL (NORMODYNE,TRANDAT E) injection 5 mg 1 01/03/2023 Lactated Ringer's (LR) infusion 1 3 lidocaine (XYLOCAINE) 10 mg/ mL (1 %) injection 2-10 mg 1 01/03/2023 naloxone (NARCAN) 0.4 mg/mL injection 0.04-0.4 mg 1 01/03/2023 simethicone (MYLICON) 66.7 m g/mL oral drops 1 01/03/2023 sodium chloride 0.9% flush 0.5-20 mL 1 12/15 Diet Count Last Ordered Date First Orde red Date ADULT DISCHARGE DIET 1 01/03/2023 Nursing Count Last Ordered Date First Orde red Date DISCHARGE ACTIVITY 1 01/03/2023 DISCHARGE CALL PROVIDER 5 01/03/2023 Discharge Count Last Ordered Date First Orde red Date DISCHARGE PATIENT 1 01/03/2023 documented in this encounter 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
--- OUTSIDE RECORDS SUMMARY | 2024-02-21 19:35 | XMS_ITS | Encounter Summary ---
Author Organization [facility] Healthcare Address [address] [place] [address] Care Team Providers Care Water Operator Name Role Phone Daily Cruz MD Primary Care Provider [phone] Reason for Visit * Auth/Cert (Routine) Specialty Diagnoses / Procedures Referred By Matt t Referred To Contact Diagnoses RLQ abdominal pain Blood in stool Gastroesophageal reflux disease without esophagitis Diarrhea, unspecified type RLQ abdominal pain [R10.31] Blood in stool [K92.1] Gastroesophageal reflux disease without esophagitis [K21.9] Diarrhea, unspecified type [R19.7] Procedures AR ESOPHAGOGASTRODUODENOSCOPY TRANSORAL DIAGNOSTIC AR COLONOSCOPY,DIAGNOSTIC ESOPHAGOGASTRODUODENOSCOPY COLONOSCOPY Referral ID Status Reason Start Date Expiration Date Visits Re quested Visits Authorized [id number] 1 1 Encounter Details Date Type Department Care Team (Late st Contact Info) Description 01/03/2023 7:55 AM CHIEF CLINICAL OFFICER Anesthesia Event [facility] [address] [place] [address] Joshua James, DO [address] [facility] [place] [address] Doe Pope MD [address] [facility] [address] [facility] [address] [place] [id number] Anesthesia Record Procedure Summary Procedure Name Responsible Anesthesiologist Anesthesia Start Time Anesthesia Stop Time ESOPHAGOGASTRODUODENOSCOPY BIOPSY Joshua James DO 01/03/23 0755 01/03/23 0828 Events Date Time Event Comment 01/03/2023 0715 0755 An Start 0755 An Start Data 0755 In Room 0802 Patient Positioned Laterally 0802 Bite Block Placed 0802 An Induction The patient was reevaluated immediately before moderate or deep sedation use and before anesthesia induction. 0802 Anesthesia Ready 0805 Proc Start 0823 Proc Fin 0824 an stop data 0826 Out of Room 0828 Handoff to RN I completed my handoff to the receiving nurse during which we: 1. Patient identified 2. Responsible provider identified 3. Pertinent medical history reviewed 4. Procedure type and surgical course discussed 5. Intraoperative anesthetic management and any significant issues discussed 6. Expectations and concerns for postop period discussed 7. Questions solicited from receiving nurse 8. Patient disposition at the time of handoff: No value filed. 0828 An Stop Meds Name Total lidocaine (cardiac) syringe 2 % 50 mg propofol 662.5 mg Lactated Ringer's (LR) infusion 400 mL * Agents Name O2% N2O O2 N2O Air * Blood No blood administrations on file. Lines, Drains, and Airways Type Details Placement Removal Peripheral IV Placement Date: 12/15 03/07; Placement Time: 0742; Catheter Size: 22 G; Orientation: Left, Posterior; Location: Hand; Site Prep: Chlorhexidine; Technique: Anatomical landmarks; Insertion Attempts: 2; Patient Tolerance: Tolerated well; Removal Date: 01/03/23; Removal Time: 0859; Removal Reason: Discharge 01/03/23 0742 by Stephenie Rivero RN 01/03/23 0859 by Stephenie Rivero RN documented in this encounter Social History Tobacco Use Types Packs/Day Years [...] on file Legal Sex Female 3:37 PM CHIEF CLINICAL OFFICER Gender Identity Female 03/02/2020 4:27 PM CHIEF CLINICAL OFFICER Sexual Orientation Straight 07/10/2019 11 :13 PM CDT documented as of this encounter OR Notes * Anesthesia Postprocedure Evaluation - Jenna Mora MD - 01/03/2023 10:06 AM CST Patient: JUD CROCKER Procedure Summary Date: 01/03/23 Room / Location: [facility]COPY ROOM [facility] Anesthesia Start: 754 Anesthesia Stop: 827 Procedures: ESOPHAGOGASTRODUODENOSCOPY BIOPSY COLON BIOPSY Diagnosis: RLQ abdominal pain Blood in stool Gastroesophageal reflux disease without esophagitis Diarrhea, unspecified type (RLQ abdominal pain [R10.31]) (Blood in stool [K92.1]) (Gastroesophageal reflux disease without esophagitis [K21.9]) (Diarrhea, unspecified type [R19.7]) Providers: Jeffrey Fleming MD Responsible Provider: Joshua James DO Anesthesia Type: MAC ASA Status: 3 Anesthesia Type: MAC Last vitals BP 120/90 Pulse 54 Temp 36.4 ??C (97.5 ??F) (Temporal) Resp 16 SpO2 100% Anesthesia Post Evaluation Patient location during evaluation: PACU Patient participation: complete - patient participated Level of consciousness: fully awake Pain management: adequate Airway patency: adequate Evidence of recall: no Cardiovascular status: acceptable Respiratory status: acceptable Hydration status: acceptable Pt is: normothermic Nausea/Vomiting status: none No notable events documented. F CLINICAL OFFICER * Anesthesia Preprocedure Evaluation - Joshua James DO - 01/03/2023 7:12 AM CST Images from the original note were not included. Anesthesia Evaluation JUD CROCKER is a 32 y.o. female Procedure(s): ESOPHAGOGASTRODUODENOSCOPY COLONOSCOPY Pre-Op Diagnosis Codes: * RLQ abdominal pain [R10.31] * Blood in stool [K92.1] * Gastroesophageal reflux disease without esophagitis [K21.9] * Diarrhea, unspecified type [R19.7] Patient Active Problem List Diagnosis Date Noted ??? Acute bronchitis due to other specified organisms 12/12/2022 ??? Diplopia 12/12/2022 ??? Bilateral lower extremity edema 11/25/2022 ??? Thrush, oral 07/15/2022 ??? Elevated blood pressure, situational 05/27/2022 ??? Hypertension, essential 05/27/2022 ??? Panic attack 03/30/2022 ??? Acute bacterial sinusitis 03/22/2022 ??? Persistent asthma without complication 03/22/2022 ??? Bulging lumbar disc 12/22/2021 ??? Allergic conjunctivitis of both eyes 12/21/2021 ??? Seasonal allergic rhinitis due to pollen 12/21/2021 ??? Allergic reaction 12/06/2021 ??? Gastroesophageal reflux disease without esophagitis 11/16/2021 ??? Constipation 11/16/2021 ??? Diarrhea 11/16/2021 ??? Endometriosis 10/26/2021 ??? RLQ abdominal pain 10/26/2021 ??? Blood in stool 10/26/2021 ??? Localized swelling of left foot 10/11/2021 ??? High serum c-peptide 10/11/2021 ??? Chronic pain of multiple joints 10/11/2021 ??? White matter abnormality on MRI of brain 10/11/2021 ??? Hyperglycemia 09/27/2021 ??? Plantar fasciitis 09/07/2021 ??? Pure hypercholesterolemia 07/20/2021 ??? Patellar maltracking, left 10/06/2020 ??? Other chronic pain 10/05/2020 ??? Bipolar 2 disorder (CMS/HCC) ([facility]) 10/05/2020 ??? Well adult exam 08/25/2020 ??? Leg cramping 08/19/2020 ??? Acute recurrent maxillary sinusitis 08/05/2020 ??? Herpes zoster without complication 06/09/2020 ??? Prepatellar bursitis of both knees 05/20/2020 ??? Lumbar spondylosis 05/20/2020 ??? Fluid retention 05/20/2020 ??? Reactive airway disease without asthma 04/22/2020 ??? Anxiety and depression 04/01/2020 ??? Acute bilateral low back pain without sciatica 03/04/2020 ??? Chronic pain of both knees 03/04/2020 ??? Lumbar degenerative disc disease 03/04/2020 ??? Chronic pain of both hips 03/04/2020 ??? Chronic bilateral low back pain 01/29/2020 ??? Left hip pain 01/29/2020 ??? Acute pain of left knee 01/29/2020 ??? Pustular rash 01/29/2020 ??? Exposure to COVID-19 virus 12/18/2019 ??? Acute cough 12/18/2019 ??? Nasal congestion 12/18/2019 ??? Arthralgia 08/01/2019 ??? Elevated sedimentation rate 08/01/2019 ??? Moderate persistent asthma without complication 07/11/2019 ??? Attention deficit disorder (ADD) in adult 07/11/2019 ??? Rathke's cyst (HCC) 07/11/2019 ??? Pseudotumor cerebri 07/11/2019 ??? Pain and swelling of lower extremity 07/11/2019 ??? 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 or arthrodesis 07/01/2019 ??? Painful orthopaedic hardware (HCC) 07/01/2019 ??? Seizure (HCC) 04/25/2017 ??? Morbid obesity with BMI of 40.0-44.9, adult (HCC) 03/22/2016 ??? Benign intracranial hypertension 03/11/2016 ??? Hyperthyroidism 09/28/2015 ??? Family history of seizure disorder 05/28/2015 ??? History of syncope 05/28/2015 ??? Vitamin D deficiency 05/28/2015 ??? Obesity due to excess calories 12/24/2014 ??? Simple obesity 10/22/2014 ??? Allergic rhinitis due to allergen 01/31/2009 ??? Candidiasis of vagina 01/31/2009 ??? Gastritis 01/31/2009 ??? Increased frequency of urination 01/31/2009 ??? Migraine headache 01/31/2009 ??? Paronychia 01/31/2009 ??? Screening for condition 01/31/2009 ??? Seborrhea 01/31/2009 ??? Skin striae 01/31/2009 ??? Tinea pedis 01/31/2009 Past Medical History: Diagnosis Date ??? ADHD (attention deficit hyperactivity disorder) ??? Anxiety ??? Arthritis ??? Asthma ??? Brain concussion 2010, 2009 ??? Chronic bronchitis (HCC) ??? Depression ??? Gastric reflux ??? GERD (gastroesophageal reflux disease) PRN tums ??? IIH (idiopathic intracranial hypertension) Pseudotumor cerebri. reports last spinal tap 2017. currently following with PCP, previously has followed with neuro ??? Irritability ??? 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 Kidney stone 2019 ??? Low back pain ??? Lymphedema BLE. on Bumex ??? Memory loss ??? Migraines follows with PCP. reports improved somewhat with fioricet started ~2 weeks ago ??? Motion sickness ??? Obesity ??? Peptic ulceration Reports remote history. PRN tums ??? Pneumonia 12/2019 ??? PONV (postoperative nausea and vomiting) premedicated and scopolamine patch ??? Reactive airway disease PRN albuterol and symbicort, well controlled. Reports albuterol use with URI. ??? Seasonal allergies ??? Seizures (HCC) off medication since 2018 with no further seizure activity, EEG negative ??? SOB (shortness of breath) Past Surgical History: Procedure Laterality Date ??? ABDOMINAL SURGERY Laparoscopic surgery to remove endometriosis ??? FOOT SURGERY Bilateral 2018 2 left bunion, 1 right bunion- hardware in place left and right foot ??? FOOT SURGERY 07/16/2019 revision left tarsometatarsal joint arthrodesis iliac crest bone graft - Left ??? KNEE ARTHROSCOPY W/ LATERAL RELEASE 2021, 2020 ??? KNEE SURGERY 01/2022 meniscus repair ??? LAPAROSCOPIC ENDOMETRIOSIS FULGURATION 2017 ??? TONSILLECTOMY ??? WISDOM TOOTH EXTRACTION OB History No obstetric history on file. Allergies Allergen Reactions ??? Acetazolamide Swollen tongue Tongue and lip swelling Sob Rash ??? Dihydroergotamine Shortness of breath Severe pressure and tightness in chest Severe pressure and tightness in chest Anxiety, Shortness of Breath/Wheezing (Shortness of breath) Bradycardia and HTN ??? Hydrochlorothiazide Swollen tongue ??? Nickel Hives, Itching, Rash and Swelling SKIN TURNS RED ??? Topiramate Swelling and Other (See comments) Dizzy, body goes numb ??? Hydrocodone-Acetaminophen Nausea And Vomiting ??? Lamotrigine Other (See comments) SEIZURE ACTIVITY ??? Levetiracetam Other (See comments) SEIZURE ACTIVITY ??? Oxycodone-Acetaminophen Nausea And Vomiting Taking? Last Dose Start Date End Date Provider eqexuqlgwqulj-trhjslw-kiymhtzu (EXCEDRIN MIGRAINE) 250-250-65 mg per tablet Unknown -- -- Yessica Jordan MD albuterol HFA (PROVENTIL HFA,VENTOLIN HFA,PROAIR HFA) 90 mcg/actuation inhaler () -- 07/21/22 12/12/22 Hortencia Rivera MD PhD Inhale 2 puffs 4 (four) times a day for 5 days Use only as needed after those 5 days bumetanide (BUMEX) 1 mg tablet 12/30/2022 -- -- ProviderYessica MD cholecalciferol (VITAMIN D-3) 5,000 unit tablet Past Week -- -- ProviderYessica MD cyclobenzaprine (FLEXERIL) 10 mg tablet Unknown 09/09/22 -- Yessica Jordan MD ergocalciferol, vitamin D2, 50 mcg (2,000 unit) tablet Past Week -- -- ProviderYessica MD famotidine (PEPCID) 40 mg tablet () 12/30/2022 08/30/22 12/30/22 Alecia Rendon NP Take 1 tablet (40 mg total) by mouth daily fexofenadine (ARIANNA) 180 mg tablet 12/30/2022 07/13/22 07/08/23 Larisa Yuan NP Take 1 tablet (180 mg total) by mouth 2 (two) times a day FLUoxetine (PROzac) 40 mg capsule 12/30/2022 12/12/22 -- Daily Cruz MD Take 1 capsule (40 mg total) by mouth daily fluticasone propionate (FLONASE) 50 mcg/actuation nasal spray Unknown 02/25/22 -- Daily Cruz MD Administer 2 sprays into each nostril daily hydrocortisone 2.5 % ointment -- 03/02/22 -- Larisa Yuan NP Apply topically 2 (two) times a day ibuprofen (ADVIL,MOTRIN) 800 mg tablet Unknown 09/27/21 -- Daily Cruz MD Take 1 tablet (800 mg total) by mouth 3 (three) times a day magnesium oxide 400 mg magnesium capsule Past Week -- -- Yessica Jordan MD montelukast (SINGULAIR) 10 mg tablet -- 11/10/22 -- Daily Cruz MD TAKE 1 TABLET BY MOUTH EVERY DAY AT NIGHT nystatin 100,000 unit/mL suspension Past Week 07/15/22 -- Yessica Jordan MD phentermine (ADIPEX-P) 37.5 mg tablet More than a month 08/17/22 -- Daily De Santiago MD Take 1 tablet (37.5 mg total) by mouth daily before breakfast POTASSIUM CHLORIDE ORAL Past Week -- -- Yessica Jordan MD rimegepant (Nurtec ODT) tablet,disintegrating Past Week 12/15/22 -- Daily De Santiago MD Take 1 tablet (75 mg total) by mouth as needed (take every other day PRN) triamcinolone (KENALOG) 0.1 % cream -- 06/25/21 -- Natasha Sandoval MD Apply topically 2 (two) times a day as needed for rash Do not use on the face or in the groin Current Facility-Administered Medications: ??? Lactated Ringer's (LR) infusion, 30 mL/hr, intravenous, Continuous ??? lidocaine (XYLOCAINE) 10 mg/mL (1 %) injection 2-10 mg, 0.2-1 mL, other, Once PRN ??? meclizine (ANTIVERT) tablet 25 mg, 25 mg, oral, Once ??? sodium chloride 0.9% flush 0.5-20 mL, 0.5-20 mL, intra-catheter, PRN Social History Tobacco Use Smoking Status Never ??? Passive exposure: Past Smokeless Tobacco Never Alcohol Use: Not At Risk (12/12/2022) AUDIT-C ??? Frequency of Alcohol Consumption: Monthly or less ??? Average Number of Drinks: 1 or 2 ??? Frequency of Binge Drinking: Never Substance and Sexual Activity Drug Use Not Currently ??? Types: Alcohol Comment: ~3 drinks/month Family History Problem Relation Age of Onset ??? Seizures Sister Family history of seizures - (Added by TW Conv) ??? Arthritis Sister ??? Hypertension Sister ??? Mental illness Sister ??? Stroke Sister ??? Depression Sister ??? Rashes / Skin problems Sister ??? Arthritis Mother ??? Hypertension Mother ??? Mental illness Mother ??? Stroke Mother ??? Seizures Mother ??? Diabetes Mother ??? Alcohol abuse Mother ??? Heart attack Mother ??? COPD Mother ??? Depression Mother ??? Drug abuse Mother ??? Miscarriages / Stillbirths Mother ??? Vision loss Mother ??? Kidney disease Mother ??? Bleeding Disorder Mother ??? Arthritis Father ??? Hypertension Father ??? Mental illness Father ??? Heart attack Father ??? Depression Father ??? Vision loss Father ??? Hearing loss Father ??? Stroke Paternal Grandmother ??? Depression Sister ??? Anesthesia problems Neg Hx There were no vitals filed for this visit. PT: No results found for requested labs within last 30 days. INR: No results found for requested labs within last 30 days. APTT: No results found for requested labs within last 30 days. Hgb A1C: No results found for requested labs within last 30 days. CBC RBC: No results found for requested labs within last 30 days. RDW: No results found for requested labs within last 30 days. MCHC: No results found for requested labs within last 30 days. MCH: No results found for requested labs within last 30 days. MCV: No results found for requested labs within last 30 days. Hct: No results found for requested labs within last 30 days. Hgb: No results found for requested labs within last 30 days. WBC: No results found for requested labs within last 30 days. MPV: No results found for requested labs within last 30 days. Platelets: No results found for requested labs within last 30 days. RDW CV: No results found for requested labs within last 30 days. RDW Sd: No results found for requested labs within last 30 days. BMP Glucose: No results found for requested labs within last 30 days. Calcium: No results found for requested labs within last 30 days. Sodium: No results found for requested labs within last 30 days. Potassium: No results found for requested labs within last 30 days. CO2: No results found for requested labs within last 30 days. Chloride: No results found for requested labs within last 30 days. BUN: No results found for requested labs within last 30 days. Creatinine: No results found for requested labs within last 30 days. DOS Physical Exam Medical history, medications, and allergies reviewed. Attestation: This PAT evaluation 01/03/2023. Airway Exam: Mallampati: II Cervical ROM: FROM TM distance: normal Cardiovascular Exam: Rate: regular Rhythm: regular Pulmonary Exam: LCTA, bilat EENT Exam: trachea midline Dental Exam: Appears intact Skin Exam: Skin is warm and dry. Turgor is normal. Current state: Patient's current state is cooperative. Anesthesia Plan ASA 3 My patient is approved for the Anesthesia Controlled Medication protocol when under care of a STATION MASTER Planned anesthesia: MAC Induction: Induction: intravenous. Postoperative Plan: Patient's planned disposition post procedure is Outpatient. Informed Consent: Discussed plan with STATION MASTER. Anesthesia plan and risks discussed with patient. Consent and Attending signature: I and/or my designee have discussed the anesthesia plan, benefits, possible alternatives, parental presence at time of induction (if indicated), and clinically relevant risks that may include dental injury, unintentional awareness, and/or other complications. The patient and/or parent/legal guardian understand, and agree to proceed. All questions answered. F CLINICAL OFFICER documented in this encounter Plan of [...] at 0730, Pre-Op Restarted 01/03/2023 8:24 AM CHIEF CLINICAL OFFICER Rate/Dose Verify 01/03/2023 7:55 AM CHIEF CLINICAL OFFICER 30 mL/h r New Bag 01/03/2023 7:42 AM CHIEF CLINICAL OFFICER 30 mL/hr 30 mL/hr lidocaine (cardiac) (XYLOCAINE) preservative free injection intravenous, As needed, Starting on Mon01/03/23 at 0803, Anesthesia Intra-op, Indications: Ventricular ArrhythmiasIndications:Ventr icular Arrhythmias Given 01/03/2023 8:03 AM CHIEF CLINICAL OFFICER 50 mg propofoL (DIPRIVAN) 10 mg/mL IV intravenous, As needed, Starting on Mon01/03/23 at 0803, Anesthesia Intra-op New Bag 01/03/2023 8:04 AM CHIEF CLINICAL OFFICER 250 mcg/kg/min 168.75 mL/hr Given 01/03/2023 8:03 AM CHIEF CLINICAL OFFICER 100 mg documented in this encounter Care Teams Water Operator Relationship Specialty Start Date End Date Daily Cruz MD PCP - General Family Medicine 03/04/21 documented as of this encounter
--- OUTSIDE RECORDS SUMMARY | 2024-02-21 19:35 | XMS_ITS | Encounter Summary ---
Author Organization [facility] Healthcare Address [address] [place] [address] Care Team Providers Care Sliver Chopper Name Role Phone Daily Cruz MD Primary Care Provider [phone] [phone] Reason for Visit * Reason Comments Test Results Encounter Details Date Type Department Care Team (Late st Contact Info) Description 12/15/2022 4:30 PM CDT Telemedicine [facility] Medical Group Family Medicine at [address] [address] Daily Cruz MD [address] [place] [id number] Pituitary adenoma (HCC) (Primary Dx); Acute bronchitis due to other specified organisms Social History Tobacco Use Types Packs/Day Years [...] on file 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 Gender Identity Female 03/02/2020 4:27 PM SECURITY ASSURANCE ANALYST Sexual Orientation Straight 07/10/2019 11 :13 PM CDT documented as of this encounter Last Filed Vital Signs Vital Sign Reading Time Taken Comments Blood Pressure - - Pulse - - Temperature - - Respiratory Rate - - Oxygen Saturation - - Inhaled Oxygen Concentration - - Weight 112.5 kg (248 lb) 12/15/2022 5:09 PM CDT Height 170.2 cm (5' 7.01 ) 12/15/2022 5:09 PM CD T Body Mass Index 38.83 12/15/2022 5:09 PM CDT documented in this encounter Patient Instructions * Attachments The following attachments cannot be sent through Care Everywhere. * Pituitary Adenoma (AfterCare(R) Instructions(ER/ED)) ([place] Islander) documented in this encounter Ordered Prescriptions Prescription Sig Dispense Quantity Refills Last Filled Start Date End Date rimegepant (Nurtec ODT) tablet,disintegrat ingIndications:Gerhard cloud,Migraine Prevention Take 1 tablet (75 mg total) by mouth as needed (take every other day PRN) 16 tablet 2 12/15/2022 02/28/2023 dexAMETHasone (DECADRON) 2 mg tablet 2 tab BID x 3 days, 1 tab BID x 3 days, 1 tab qd x2 days, 1/2 tab qd x 2 days 21 tablet 12/15/2022 12/30/2022 documented in this encounter Progress Notes * Daily Cruz MD - 12/15/2022 4:30 PM CDT Images from the original note were not included. Patient ID: JUD CROCKER is a 32 y.o. female. Visit Date: 12/15/2022 This was a telemedicine fvisit with JUD CROCKER alone which took place via real-time video connection. During the visit, I was located at home and the patient was located at home in the [facility]. The patient visit started at 17:07 and ended at 17:15. I have explained the option of participating in a telemedicine visit to the patient. After being given an opportunity to ask questions about and discuss this type of visit, the patient verbally consented to proceeding with the telemedicine visit. The patient understands that this service replaces an office visit and they may be billed and/or responsible for any applicable copayments. Chief Complaint Pituitary tumor HPI HPI MRI brain shows pituitary nodule Refer to neurosurgeon for pituitary tumor Current Outpatient Medications: xwczlbcllanjp-tuynafm-xywygflc (EXCEDRIN MIGRAINE) 250-250-65 mg per tablet, Take 1 tablet by mouthevery 6 (six) hours as needed, Disp: , Rfl: cholecalciferol (VITAMIN D-3) 5,000 unit tablet, Take 0.2 tablets (1,000 Units total) by mouth daily, Disp: , Rfl: cyclobenzaprine (FLEXERIL) 10 mg tablet, , Disp: , Rfl: ergocalciferol, vitamin D2, 50 mcg (2,000 unit) tablet, Take 2 tablets by mouth daily 5,000, Disp: , Rfl: fexofenadine (ARIANNA) 180 mg tablet, Take 1 tablet (180 mg total) by mouth 2 (two) times a day, Disp: 180 tablet, Rfl: 3 FLUoxetine (PROzac) 40 mg capsule, Take 1 capsule (40 mg total) by mouth daily, Disp: 30 capsule, Rfl: 5 fluticasone propionate (FLONASE) 50 mcg/actuation nasal spray, Administer 2 sprays into each nostril daily, Disp: 48 mL, Rfl: 1 hydrocortisone 2.5 % ointment, Apply topically 2 (two) times a day, Disp: 30 g, Rfl: 0 ibuprofen (ADVIL,MOTRIN) 800 mg tablet, Take 1 tablet (800 mg total) by mouth 3 (three) times a day, Disp: 90 tablet, Rfl: 0 magnesium oxide 400 mg magnesium capsule, Take 400 mg by mouth daily, Disp: , Rfl: montelukast (SINGULAIR) 10 mg tablet, TAKE 1 TABLET BY MOUTH EVERY DAY AT NIGHT, Disp: 90 tablet, Rfl: 0 nystatin 100,000 unit/mL suspension, Take 5 mL (500,000 Units total) by mouth as needed, Disp: , Rfl: phentermine (ADIPEX-P) 37.5 mg tablet, Take 1 tablet (37.5 mg total) by mouth daily before breakfast, Disp: 30 tablet, Rfl: 2 POTASSIUM CHLORIDE ORAL, Take by mouth daily, Disp: , Rfl: triamcinolone (KENALOG) 0.1 % cream, Apply topically 2 (two) times a day as needed for rash Do not use on the face or in the groin, Disp: 454 g, Rfl: 2 albuterol HFA (PROVENTIL HFA,VENTOLIN HFA,PROAIR HFA) 90 mcg/actuation inhaler, Inhale 2 puffs 4 (four) times a day for 5 days Use only as needed after those 5 days, Disp: 6.7 each, Rfl: 1 bumetanide (BUMEX) 1 mg tablet, Take 1 tablet (1 mg total) by mouth daily, Disp: , Rfl: famotidine (PEPCID) 40 mg tablet, Take 1 tablet (40 mg total) by mouth daily, Disp: 30 tablet, Rfl:0 omeprazole (PriLOSEC) 20 mg capsule, Take 1 capsule (20 mg total) by mouth 2 (two) times a day before breakfast and dinner, Disp: 60 capsule, Rfl: 3 rimegepant (Nurtec ODT) tablet,disintegrating, Take 1 tablet [...] pain. Neurological: Negative for dizziness and headaches. Pituitary tumor Hematological: Does not bruise/bleed easily. Psychiatric/Behavioral: Negative for behavioral problems and confusion. Ht 170.2 cm (5' 7.01 ) Wt 112.5 kg (248 lb) BMI 38.83 kg/m?? Body mass index is 38.83 kg/m??. Physical Exam Constitutional: Appearance: Normal appearance. HENT: Head: Normocephalic and atraumatic. Nose: Nose normal. Eyes: Extraocular Movements: Extraocular movements intact. Conjunctiva/sclera: Conjunctivae normal. Pulmonary: Effort: Pulmonary effort is normal. Musculoskeletal: Cervical back: Normal range of motion. Neurological: Mental Status: She is alert and oriented to person, place, and time. Psychiatric: Mood and Affect: Mood normal. Behavior: Behavior normal. EXAMINATION: Magnetic resonance imaging (MRI) of the [...] cyst. Attention on follow up is recommended. Diagnosis Plan 1. Pituitary adenoma (HCC) Ambulatory referral to Neurosurgery 2. Acute bronchitis due to other specified organisms Order steroids Daily Cruz MD RITY ASSURANCE ANALYST documented in this encounter Plan of [...] of pituitary gland and craniopharyngeal duct (pouch) Acute bronchitis due to other specified organisms documented in this encounter Discontinued Medications Medication Sig Discontinue Reason Start Date End Da te methylPREDNISolone (MEDROL DOSEPACK) 4 mg DosepackIndications:Acu te bronchitis due to other specified organisms Take as directed on package. Alternate therapy 12/12/2022 12/15/2022 rimegepant (Nurtec ODT) tablet,disintegrating Take by mouth as needed Reorder 12/15/2022 documented as of this encounter Care Teams Sliver Chopper Relationship Specialty Start Date End Date Daily Cruz MD PCP - General Family Medicine 03/04/21 documented as of this encounter
--- OUTSIDE RECORDS SUMMARY | 2024-02-21 19:35 | XMS_ITS | Encounter Summary ---
Author Organization [facility] Address [address] [place] [address] Phone Care Team Providers Care Adult Care Manager Name Role Phone Daily Cruz MD Primary Care Provider [phone] [phone] Encounter Details Date Type Department Care Team (Late st Contact Info) Description 10/10/2022 Treatment [facility] Allergy and Immunology [address] [place] [address] Hortencia Rivera MD PhD [address] [place] [address] Seasonal allergic rhinitis due to pollen (Primary Dx); Allergic reaction, initial encounter Social History Tobacco Use Types Packs/Day [...] on file Legal Sex Female 3:37 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 Gender Identity Female 03/02/2020 4:27 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 Sexual Orientation Straight 07/10/2019 11 :13 PM CDT documented as of this encounter Progress Notes * Jud Mcgraw CMA - 10/10/2022 11:59 PM CDT 20 vials 100 ml 160 doses documented in this encounter Plan of Treatment [...] Procedure Name Priority Date/Time Associated Diagnosis Comments IMMUNOTHERAPY PRESCRIPTION Routine 10/10/2022 12:00 AM CDT Seasonal allergic rhinitis due to pollen documented in this encounter Results * Immunotherapy prescription (10/10/2022 12:00 AM CDT) Hortencia Rivera MD PhD IN CLINIC/BED SIDE ORDERABLES Final Result documented in this encounter Visit Diagnoses Diagnosis Seasonal allergic rhinitis due to pollen- Primary Allergic reaction, initial encounter documented in this encounter Care Teams Adult Care Manager Relationship Specialty Start Date End Date Daily Cruz MD PCP - General Family Medicine 03/04/21 documented as of this encounter
--- OUTSIDE RECORDS SUMMARY | 2024-02-21 19:35 | XMS_ITS | Encounter Summary ---
Author Organization 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 Is it advisable to do immunotherapy when or trying to become ? Patient also said she has hives on face and neck and sometimes other areas of her skin that pop up randomly and are very itchy. It is a lot worse on her neck. She is wondering if this is from her allergies or if there is anything else that she can do for them at this time? She is using all prescribed medications at this time documented in this encounter Plan of Treatment [...] on filedocumented in this encounter Care Teams Recovery Agent Relationship Specialty Start Date End Date Daily Cruz MD PCP - General Family Medicine 03/04/21 documented as of this encounter
--- OUTSIDE RECORDS SUMMARY | 2024-02-21 19:35 | XMS_ITS | Encounter Summary ---
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 Pt's legs are swollen from thighs to toes, bilat hands and face. Pt states she stopped taking Bumex and Lasix with last dose on Monday. Since stopping meds Pt has had decreased urine output. Pt states her hands are tight and her rings don't fit and fingers and toes feel numb. Pt also reports having her Menses every 2 weeks for the last 2 months, increased tiredness, headache and slight SOB. Pt has follow up video visit next Monday and would like to be seen sooner and havePCP input today for swelling and med management. DISPO: Go to office now Office closed Reviewed care options with Jud Leung verbalizing understanding. Pt has NOV Monday11/22/22 at 1530 with PATIENT INFORMATION COORDINATOR Routing to Clin pool: Pt requesting advice from PCP Re: Current swelling and med management off Lasix and Bumex. Pt states she is unsure what to do as every time she weans the swelling returns. This is the worst she has experienced. Pls contact Jud Leung at [phone] for further assist. Reason for Disposition Swelling of face, arm or hands (Exception: Slight puffiness of fingers during hot weather.) Protocols used: Leg Swelling and [id number] * Telephone Encounter - Alley Gilliam RN - 11/18/2022 12:24 PM CDT Regarding: Retaining Water weight, gain 15lbs, Feet & Toes Numb, Buzzy feeling hands ----- Message from Nini Monk sent at 11/18/2022 10:51 AM CDT ----- Symptom Based Call Caller's Callback #: [phone] Chief Complaint(s): Retaining Water weight, gain 15lbs, Feet & Toes Numb, Buzzy feeling hands Duration: Since Monday and has worsened within the past two days What type of symptom(s) is the patient experiencing? Non-Emergent. Is this a new or reoccurring symptom(s)? New What have you tried to help your symptom(s)? Just Medication adjustments that she was instructed too. Why was appointment not scheduled? Appointment availability did not meet the patient's need. Patient believes that she need to be seen sooner than next Monday and in person. Additional Comments: Does message need to be routed? Yes-Action [...] on filedocumented in this encounter Care Teams Hydroelectric Plant Technician Relationship Specialty Start Date End Date Daily Cruz MD PCP - General Family Medicine 03/04/21 documented as of this encounter
--- OUTSIDE RECORDS SUMMARY | 2024-02-21 19:35 | XMS_ITS | Encounter Summary ---
Author Organization [facility] Medical Group Address [address] [address] [facility] [place] [address] Care Team Providers Care Core Composer Machine Tender Name Role Phone Daily Cruz MD Primary Care Provider [phone] [phone] Reason for Visit * Reason Onset Date Comments Symptom Based Call 10/24/2022 Encounter Details Date Type Department Care Team (Late st Contact Info) Description 10/24/2022 Telephone [facility] Medical Group Family Medicine at [address] [facility] [address] [place] [address] Daily Cruz MD [address] [place] [address] [address] [place] [address] Symptom Based Call Social History Tobacco Use [...] on file Legal Sex Female 3:37 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 Food does not test normal. Duration: September What type of symptom(s) is the patient experiencing? Non-Emergent. Is this a new or reoccurring symptom(s)? New What have you tried to help your symptom(s)? Over the counter meds. Why was appointment not scheduled? Appointment availability did not meet the patient's need. Additional Comments: None Does message need to be routed? Yes-Action [...] on filedocumented in this encounter Care Teams Core Composer Machine Tender Relationship Specialty Start Date End Date Daily Cruz MD PCP - General Family Medicine 03/04/21 documented as of this encounter
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
--- OUTSIDE RECORDS SUMMARY | 2024-02-21 19:35 | XMS_ITS | Encounter Summary ---
Author Organization [facility] Address [address] [place] [id number] Care Team Providers Care Supervisor Shuttle Fitting Name Role Phone Daily Cruz MD Primary Care Provider [phone] [phone] Reason for Visit * Reason Comments Sore Throat Onset of symptoms st arted 1 month ago. Hairy tongue (burning, painful and blistering in mouth). She states that it feels like there is a film over her tongue and says that food tastes different/changes. Sore throat started hurting back in the beginning of September. Still hurts but hurts more now after talking all day, feels that her voice is more hoarse now. Self medicating with mouth wash, throat coat herbal tea, lemon water, and cough drops. 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 Sexual Orientation Straight 07/10/2019 11 :13 PM CDT documented as of this encounter Last Filed Vital Signs Vital Sign Reading Time Taken Comments Blood Pressure 118/74 10/24/2022 7:04 PM CDT Pulse 84 10/24/2022 7:04 PM CDT Temperature 36.8 ??C (98.2 ??F) 10/24/2022 7:04 PM CD T Respiratory Rate 18 10/24/2022 7:04 PM CDT Oxygen Saturation 98% 10/24/2022 7:04 PM CDT Inhaled Oxygen Concentration - - Weight 110.2 kg (243 lb) 10/24/2022 7:04 PM CDT Height 170.2 cm (5' 7 ) 10/24/2022 7:04 PM CDT Body Mass Index 38.06 10/24/2022 7:04 PM CDT documented in this encounter Patient Instructions * Patient Instructions* Raeann Craven NP - 10/24/2022 7:30 PM CDT The rapid strep test performed at the [facility] today was POSITIVE. The following is recommended treatment for Strep pharyngitis (strep throat) Complete antibiotic as prescribed- THIS IS VERY IMPORTANT. Strep pharyngitis is contagious. You are more CONTAGIOUS to others until you have been on antibiotics for 24 hours. Avoid sharing food/drinks/utensils and close contact until you are less contagious Take Tylenol (acetaminophen) or Advil/Motin (ibuprofen) as needed per package directions for fevers/pain. Gargle with warm salt water (1tsp salt/1 cup water) or warm tea with honey and lemon to soothe pain Frequent warm or cool liquids can be soothing, like ice chips, popsicles, chicken broth, and tea. You may return to work, daycare, or school 24 hours after starting antibiotics and you are fever free without use of Tylenol or Motrin. Replace your toothbrush within 48-72 hours after starting antibiotics. If you still are not having relief with the above, you can try a Magic Mouthwash -Equal parts liquid antacid (e.g.Maalox) and children's Benadryl with a couple drops of Anbesol gargle and spit every 3-4 hours as needed. If you are not improving or worsening in the next 3-5 days you must RETURN to the clinic, go to your PCP, or Urgent Care/ER to be SEEN and reevaluated. * Attachments The following attachments cannot be sent through Care Everywhere. * Oral Candidiasis (Telecommunications Support) (Maldivian) * Strep Throat (Telecommunications Support) (Maldivian) documented in this encounter Ordered Prescriptions Prescription Sig Dispense Quantity Refills Last Filled Start Date End Date amoxicillin 500 mg tablet/capsuleIndi cations:Strep throat Take 1 tablet/capsu le (500 mg total) by mouth 2 (two) times a day for 10 days 20 tablet/capsule 10/24/2022 11/03/2022 clotrimazole (MYCELEX) 10 mg trocheIndications: Oropharyngeal Candidiasis Take 1 tablet (10 mg total) by mouth 5 (five) times a day for 14 days 70 tablet 10/24/2022 11/07/2022 documented in this encounter Progress Notes * Raeann Craven NP - 10/24/2022 7:30 PM CDT Images from the original note were not included. Patient ID: Jud Leung is a 32 y.o. female followed by Daily Cruz MD Chief Complaint Patient presents with Sore Throat Onset of symptoms started 1 month ago. Hairy tongue (burning, painful and blistering in mouth). Shestates that it feels like there is a film over her tongue and says that food tastes different/changes. Sore throat started hurting back in the beginning of September. Still hurts but hurts more now after talking all day, feels that her voice is more hoarse now. Self medicating with mouth wash, throat coat herbal tea, lemon water, and cough drops. Patient presents with reports of hairy tongue that is white in color, that esteves and is painful. She is also reporting blisters in her mouth and a sore throat for 1 month. Reports change in taste. She has used mouth wash, throat coat herbal tea, lemon water, and cough drops for her symptoms. Denies fevers, difficulty swallowing, rash, and fatigue. She took nystatin for 2 weeks, stopped 14 of October. Reports that she uses a daily steroid inhaler. Review of Systems Constitutional: Negative for chills, fatigue and fever. HENT: Positive for mouth sores (Blisters) and sore throat. Negative for congestion and trouble swallowing. Tongue coated and feels hairy Respiratory: Negative for cough and shortness of breath. Cardiovascular: Negative for chest pain. Neurological: Negative for weakness and headaches. Vitals: 10/24/22 1904 BP: 118/74 BP Location: Left arm Patient Position: Sitting Pulse: 84 Resp: 18 Temp: 36.8 ??C (98.2 ??F) TempSrc: Oral SpO2: 98% Weight: 110.2 kg (243 lb) Height: 170.2 cm (5' 7 ) Recent Results (from the past 24 hour(s)) POCT rapid strep A Collection Time: 10/24/22 7:30 PM Result Value Ref Range Rapid Strep A, POC Positive (A) Negative Physical Exam Vitals reviewed. Constitutional: Appearance: She is well-developed. HENT: Right Ear: Tympanic membrane, ear canal and external ear normal. Tympanic membrane is not injected,erythematous or bulging. Left Ear: Tympanic membrane, ear canal and external ear normal. Tympanic membrane is not injected, erythematous or bulging. Nose: No congestion or rhinorrhea. Right Sinus: No maxillary sinus tenderness or frontal sinus tenderness. Left Sinus: No maxillary sinus tenderness or frontal sinus tenderness. Mouth/Throat: Lips: [place]. Mouth: Mucous membranes are moist. Pharynx: Uvula midline. Posterior oropharyngeal erythema present. No pharyngeal swelling or oropharyngeal exudate. Comments: No tonsils. White thick coating to tongue Cardiovascular: Rate and Rhythm: Normal rate and regular rhythm. Pulmonary: Effort: Pulmonary effort is normal. No respiratory distress. Breath sounds: Normal breath sounds. No decreased breath sounds, wheezing or rhonchi. Lymphadenopathy: Cervical: No cervical adenopathy. Skin: General: Skin is warm and dry. Neurological: Mental Status: She is alert and oriented to person, place, and time. Diagnoses and all orders for this visit: Thrush (Primary) - POCT rapid strep A - clotrimazole (MYCELEX) 10 mg tea; Take 1 tablet (10 mg total) by mouth 5 (five) times a day for 14 days Strep throat - amoxicillin 500 mg tablet/capsule; Take 1 tablet/capsule (500 mg total) by mouth 2 (two) times aday for 10 days Orders Placed This Encounter Procedures POCT rapid strep A Assessment/Plan #Acute Strep Pharyngitis --Rapid strep test in office was POSITIVE --Started Amoxicillin --Discussed contagious precautions --Tylenol/ibuprofen for pain, use as directed --Gargle with warm salt water --Return to school/work discussed --Replace or sterilize anything that goes into mouth (Tooth brush, dental pieces, water bottles, coffee cups...) --Discussed return precautions --Red flags discussed for immediate evaluation needed (Difficulty breathing, drooling, throat swelling...) Disposition Treatment plan including expectations, follow up, and return precautions discussed with patient/parent, verbalizes understanding. Medication dosage, use, and potential adverse reactions discussed with patient/parent. Advised to follow up with PCP if symptoms do not resolve as expected or sooner if condition worsens. Discussed Signs/symptoms warranting ER evaluation including worsening fever, increased shortness ofbreath, chest pain, severe N/V/D, or any other worrisome symptoms Patient and/or guardian was given an opportunity to ask questions, questions answered. Patient Education The rapid strep test performed at the [facility] today was POSITIVE. The following is recommended treatment for Strep pharyngitis (strep throat) Complete antibiotic as prescribed- THIS IS VERY IMPORTANT. Strep pharyngitis is contagious. You are more CONTAGIOUS to others until you have been on antibiotics for 24 hours. Avoid sharing food/drinks/utensils and close contact until you are less contagious Take Tylenol (acetaminophen) or Advil/Motin (ibuprofen) as needed per package directions for fevers/pain. Gargle with warm salt water (1tsp salt/1 cup water) or warm tea with honey and lemon to soothe pain Frequent warm or cool liquids can be soothing, like ice chips, popsicles, chicken broth, and tea. You may return to work, daycare, or school 24 hours after starting antibiotics and you are fever free without use of Tylenol or Motrin. Replace your toothbrush within 48-72 hours after starting antibiotics. If you still are not having relief with the above, you can try a Magic Mouthwash -Equal parts liquid antacid (e.g.Maalox) and children's Benadryl with a couple drops of Anbesol gargle and spit every 3-4 hours as needed. If you are not improving or worsening in the next 3-5 days you must RETURN to the clinic, go to your PCP, or Urgent Care/ER to be SEEN and reevaluated. Raeann Craven NP documented in this encounter Plan of [...] Procedure Name Priority Date/Time Associated Diagnosis Comments POCT RAPID STREP Routine 10/24/2022 7:30 PM CDT Thrush documented in this encounter Results * (ABNORMAL) POCT rapid strep A (10/24/2022 7:30 PM CDT) [facility] Signature Rapid Strep A, POC Positive(A ) Negative Swab 10/24/2022 7:30 PM CDT us Raeann Craven OPTICAL INSTRUMENT ASSEMBLER POINT OF CARE TEST ORDERABLES Final Result documented in this encounter Visit Diagnoses Diagnosis Thrush- Primary Candidiasis of mouth Strep throat Streptococcal sore throat documented in this encounter Care Teams Supervisor Shuttle Fitting Relationship Specialty Start Date End Date Daily Cruz MD PCP - General Family Medicine 03/04/21 documented as of this encounter
--- OUTSIDE RECORDS SUMMARY | 2024-02-21 19:35 | XMS_ITS | Encounter Summary ---
Author Organization [facility] Address [address] [place] [address] Care Team Providers Care Sed Middle School Teacher Name Role Phone Daily Cruz MD Primary Care Provider [phone] Reason for Visit * Reason Onset Date Comments mouth symptoms 10/24/2022 Encounter Details Date Type Department Care Team (Late st Contact Info) Description 10/24/2022 Nurse Triage [facility] Family Medicine at [place] [address] [facility] [facility] [address] [place] [address] Daily Cruz MD [address] [place] [address] [address] [place] [address] Social History Tobacco Use Types [...] on file 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 Patient wants to be seen Protocols used: Mouth [id number] * Telephone Encounter - Jodi Vazquez RN - 10/24/2022 10:29 AM CDT Jud is reporting 1 month history of intermittent sore throat, change in taste of food, tongue looks hairy and is white and intermittent hoarseness. Denies: shortness of breath, tooth injury, inability to swallow, esteves to mouth Disposition: see within 3 days in office. No avail appt in person this week. Jud accepts appt today at [facility] at 7:30. Home care and call back instructions reviewed. documented in this encounter Plan of Treatment [...] on filedocumented in this encounter Care Teams Sed Middle School Teacher Relationship Specialty Start Date End Date Daily Cruz MD PCP - General Family Medicine 03/04/21 documented as of this encounter
--- OUTSIDE RECORDS SUMMARY | 2024-02-21 19:35 | XMS_ITS | Encounter Summary ---
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
--- OUTSIDE RECORDS SUMMARY | 2024-02-21 19:35 | XMS_ITS | Encounter Summary ---
Author Organization [facility] Address [address] [place] [address] Care Team Providers Care Intellectual Property Manager Name Role Phone Daily Cruz MD Primary Care Provider [phone] Reason for Visit * Reason Onset Date Comments Test Results 08/30/2022 Encounter Details Date Type Department Care Team (Late st Contact Info) Description 08/30/2022 Telephone [facility] Family Medicine at [place] [address] [facility] [address] [place] [address] Daily Cruz MD [address] [place] [address] [address] [place] [address] Test Results Social History Tobacco Use [...] on file 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 Educated her on importance of rest and minimize screen time and bright lights. Instructed pt to notify office if symptom begin to worsen. Pt verbalized understanding. * Telephone Encounter - Sierra Morel - 08/30/2022 2:33 PM CDT Test Result Request Type of test: CT of head Date of test: 08/30/22 Where was the test performed at? [facility] Did provider dictate result yet? No Caller's Callback #: [phone] Additional Questions/Comments: Patient states she was supposed to receive a call rufus regarding results, she is asking for a call back please with next steps. Does message need to be routed?Yes-Action Needed documented in this encounter Plan of [...] on filedocumented in this encounter Care Teams Intellectual Property Manager Relationship Specialty Start Date End Date Daily Cruz MD PCP - General Family Medicine 03/04/21 documented as of this encounter
--- OUTSIDE RECORDS SUMMARY | 2024-02-21 19:35 | XMS_ITS | Encounter Summary ---
Author Organization [facility] Address [address] [place] [address] Care Team Providers Care Dragger Name Role Phone Daily Cruz MD Primary Care Provider [phone] Encounter Details Date Type Department Care Team (Latest Contact Info) Description 11/21/2022 Orders Only [facility] Gastroenterology at [address] [address] Jeffrey Fleming MD [address] [place] [id number] Gastroesophageal reflux disease without esophagitis (Primary Dx); Blood in stool; RLQ abdominal pain; Constipation, unspecified constipation type; Diarrhea, unspecified type Social History Tobacco Use Types [...] on file 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 Drink 2nd bottle 6 hours prior to arrival. 360 mL 11/21/2022 11/23/2022 documented in this encounter Plan of Treatment [...] as of this encounter Visit Diagnoses Diagnosis Gastroesophageal reflux disease without esophagitis- Primary Esophageal reflux Blood in stool RLQ abdominal pain Abdominal pain, right lower quadrant Constipation, unspecified constipation type Diarrhea, unspecified type documented in this encounter Care Teams Dragger Relationship Specialty Start Date End Date Daily Cruz MD PCP - General Family Medicine 03/04/21 documented as of this encounter
--- OUTSIDE RECORDS SUMMARY | 2024-02-21 19:35 | XMS_ITS | Encounter Summary ---
Author Organization [facility] Address [address] [place] [address] Phone Care Team Providers Care Hose Mender Name Role Phone Daily Cruz MD Primary Care Provider [phone] [phone] Reason for Visit * Reason Comments Injections Encounter Details Date Type Department Care Team (Latest Contact Info) Description 11/24/2022 3:40 PM CDT Clinical Support 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 Generated date: 2022-11-24 [facility] 2022-[facility]-24 16:00:03. The patient received a 0.05 mL dose from Rx #[id number] out of the 1:95790/SLVR vial, named Vial 3 Mold, in their Upper left arm. Note: Adjusted by: Reason: Date: 2022-11-24 Recorded local reaction(s): None. Recorded systemic reaction: N. Vial Concentration:51258 Vial Color:SLVR A summary of Jud J Rainss injection. Generated date: 2022-11-24 The [facility] 2022-11-24 16:00:02. The patient received a 0.05 mL dose from Rx #[id number] out of the 1:48409/SLVR vial, named Vial 2 Grasses\Weeds, in their Lower right arm. Note: Adjusted by: Reason: Date: 2022-11-24 Recorded local reaction(s): None. Recorded systemic reaction: N. Vial Concentration:43671 Vial Color:SLVR A summary of Jud J Rainss injection. Generated date: 2022-11-24 The injection was [facility] at 2022-11-24 16:00:02. The patient received a 0.05 mL dose from Rx #[id number] out of the 1:25315/SLVR vial, named Vial 4 Cat\Dog\Mites, in their Lower left arm. Note: Adjusted by: Reason: Date: 2022-11-24 Recorded local reaction(s): None. Recorded systemic reaction: N. Vial Concentration:36368 Vial Color:SLVR A summary of Jud J Rainss injection. Generated date: 2022-11-24 The injection was administered by [facility] at 2022-11-24 16:00:02. The patient received a 0.05 mL dose from Rx #[id number] out of the 1:18460/SLVR vial, named Vial 1 Trees, in their Upper right arm. Note: Adjusted by: Reason: Date: 2022-11-24 Recorded local reaction(s): None. Recorded systemic reaction: N. Vial Concentration:14150 Vial Color:SLVR documented in this encounter Plan [...] First Orde red Date IMMUNOTHERAPY PRESCRIPTION 1 11/24/2022 documented in this encounter Care Teams Hose Mender Relationship Specialty Start Date End Date Daily Cruz MD PCP - General Family Medicine 03/04/21 documented as of this encounter
--- OUTSIDE RECORDS SUMMARY | 2024-02-21 19:35 | XMS_ITS | Encounter Summary ---
Author Organization [facility] Address [address] [place] [address] Care Team Providers Care Air Intercept Controller Name Role Phone Daily Cruz MD Primary Care Provider [phone] Reason for Visit * Reason Onset Date Comments headache 11/30/2022 weakness 11/30/2022 Encounter Details Date Type Department Care Team (Late st Contact Info) Description 11/30/2022 Nurse Triage [facility] Family Medicine at [address] [address] Daily Cruz MD [address] [place] [address] Social History Tobacco Use Types Packs/Day [...] on file 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 Major fluid retention-abdomen is hard and distended, bilateral legs are swollen to thighs. Onset 1 week. New headaches described as severe (comparable to her spinal headaches) with pain to R eye-can't open due to pain and overall blurred vision and decreased acuity. Onset 3 days. Worried with h/o of Pseudotumor cerebri . No chest pain or SOB. No double vision. No speech issues. Patient will do as directed. No particular weakness to one side. No dizziness or balance issues. PCP/SCOURING TRAIN OPERATOR CHIEF contacted via secure chat for ED disposition consult. Recommendation from provider:Proceed to ED per -pt agrees and will proceed to [facility] ED Message routed for FYI only Reason for Disposition Severe pain in one eye MODERATE weakness (i.e., interferes with work, school, normal activities) and cause unknown (Exceptions: Weakness from acute minor illness or from poor fluid intake; weakness is chronic and not worse.) Protocols used: Xszxyigm-IXMXA-MY, Weakness (Generalized) and Psqazye-XROKI-NW * Telephone Encounter - Dixie Ma RN - 11/30/2022 1:51 PM CDT Regarding: Severe pain in the head, neck and shoulders ----- Message from Corinne Ramsay sent at 11/30/2022 1:46 PM CDT ----- Symptom Based Call Caller's Callback #: [phone] Chief Complaint(s): Severe pain in the head, neck and shoulders Duration: A week What type of symptom(s) is the patient experiencing? Red Flag. Is the patient concerned they are experiencing a medical emergency requiring an ambulance? No Additional Comments: Pt stated the headaches have increased, and she is now in severe pain. She states her body in general is extremely swollen from water retention, as well as, pain shooting behind her right eye and advent Does message need to be routed? Yes-Action [...] on filedocumented in this encounter Care Teams Air Intercept Controller Relationship Specialty Start Date End Date Daily Cruz MD PCP - General Family Medicine 03/04/21 documented as of this encounter
--- OUTSIDE RECORDS SUMMARY | 2024-02-21 19:35 | XMS_ITS | Encounter Summary ---
Author Organization [facility] Address [address] [place] [address] Care Team Providers Care Aeronautics Commission Director Name Role Phone Jaime Dexter MD Primary Care Provider [phone] [phone] Reason for Visit * Reason Comments PT Initial Eval * Physical Therapy (Routine) - Closed Specialty Diagnoses / Procedures Referred By Contac t Referred To Contact Physical Therapy Diagnoses Bilateral lower extremity edema Jaime Dexter MD Phone: tel: fax: [facility] OP Physical Therapy [address] [place] [address] Phone: tel: fax: Referral ID Status Reason Start Date Expiration Date V isits Requested Visits Authorized [id number] Closed Evaluate and Treat 11/25/2022 02/12/2023 24 60 Encounter Details Date Type Department Care Team (Late st Contact Info) Description 12/22/2022 3:45 PM TC OPERATOR Therapy [facility] OP Physical Therapy [address] [place] [address] Mariela Lipscomb, PT Bilateral lower extremity edema Social History Tobacco Use Types Packs/Day Years [...] on file Legal Sex Female 3:37 PM TC OPERATOR Gender Identity Female 03/02/2020 4:27 PM TC OPERATOR Sexual Orientation Straight 07/10/2019 11 :13 PM CDT documented as of this encounter Progress Notes * Mariela Lipscomb, PT - 12/22/2022 3:45 PM CST Images from the original note were not included. Lymphedema Physical Therapy Evaluation / Initial Certification 12/22/2022 Jud Leung 1990 32 y.o. female JAIME DEXTER ICD-9-CM ICD-10-CM 1. Bilateral lower extremity edema 782.3 R60.0 Ambulatory referral order to Physical Therapy - Past Medical History: Diagnosis Date ADHD (attention deficit hyperactivity disorder) Anxiety Arthritis Asthma Brain concussion 2010, 2009 Chronic bronchitis (HCC) Depression Gastric reflux GERD (gastroesophageal reflux disease) PRN tums IIH (idiopathic intracranial hypertension) Pseudotumor cerebri. reports last spinal tap 2017. 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 Has had previous PT for swelling. Date of surgery: B feet surgery in 2019, L knee surgery 2 X Description of Onset: after foot surgery in 2019 Etiology of swelling: unknown, Duration of swelling: without medication, swelling is constant and painful Effect of elevation: none History of wounds: none Infection history: yes Most recent antibiotic used: none Cancer history: none Hand Dominance: right Current weight: 248#, currently taking Bumex 1 mg once a day, has taken for about 5 days and has helped resolve current episode of swelling. Prior Diagnostic Tests and Results: seen in ER recently for swelling Other Treatment for this Diagnosis: PT 3 years ago. Previous Physical Therapy for this Diagnosis: yes If yes, when: [id number] with [facility], MLD and wearing compression socks, started with wrapping. Response to prior therapy treatment: MLD was not very helpful, swelling was some under controlled, but swelling returned despite treatments. [place] the need to wear compression socks all the time to keep swelling under control, but has not worn in some time. Changes/reason for returning to therapy: swelling without medication. Current pain ratin/10, L knee At best pain ratin/10 At worst pain ratin-9/10 B LE with swelling and entire body Exacerbating Factors: more swelling, unable to bend the legs when the pain is elevated Relieving Factors: nothing Function Current Functional Deficits: swells horribly without diuretics, trying to stop taking all medication, had to resume taking Bumax again 5 days ago because she was miserable with the increase in swelling. Reports she presently does not feel like her LE are swollen, look better than she has been in quite some time and her joints feel better. Reports she can not be on the medication with hope to get and start a family. Reports the swelling occurred throughout the body, abdominal and even her face when not taking the dieretics. 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 N/a Previously was able to help the swelling with drinking an increase in water and exercise, but now the only way to control the swelling is with medication. Has already tried low sodium diet and does not affect. Has been taking diuretics onand off as needed, stopped in Nov 2021 for knee surgery, but then resumed. Stopped taking the beginning of November 2022, gained 20-30lb of water weight and had to see in the ER, and resumed taking bumax because could not take the pain and the swelling has come off again. Medical history screen: no Aortic Aneurysm no Deep vein thrombosis no Abdominal Pain yes, endometriosis Pacemaker no Diabetes no Hypertension no Congestive heart failure no Neuropathy no Renal dysfunction no Venous Insufficiency no Patient reports a family history of lymphedema with aunt and grandmother having had horrible LE swelling. Objective: Primary or secondary cause: unknown Distribution of lymphedema: none this date Color changes: none B LE Wounds: none Fungus: none Scars/incisions: surgical scars B dorsum of the feet Palpation: mild tenderness inferior to the L knee, otherwise, LE non tender Skin temperature: normal B LE Skin mobility/texture: normal B LE Axillary Cording: none Fibrosis: none Sensation: intact B LE Pitting: none B LE Stemmers sign: (-) Pulses: NT Gait: ambulates into the clinic without device and unremarkable. Circumferential Measurements (in cm) - Lower Extremity Date 12/22/22 Sitting with LE supported on floor Right Left Right Left Right Left Proximal Nail great toe 8.1 8.3 MTP 24.0 24.3 Arch 24.2 24.4 Smallest ankle 24.0 25.0 Through heel 32.7 33.7 20 cm proximal heel 38.1 36.0 30 cm proximal heel 48.4 48.4 Knee joint line 44.0 44.8 10 cm proximal superior patella 59.0 61.0 Stagin Stage 0: no evidence of edema, subjective symptoms present stage 1: mild edema, no skin changes, resolves with elevation stage 2: mild to moderate edema, skin changes present, does not reverse stage 3: moderate to severe, sclerotic changes present Treatment Provided: Discussed plan with patient/caregiver. CDT protocols and a lymphedema start of care packet have been issued. Initiated home exercise program of Initiated home exercise program of supine hip abduction/adduction, BKFO (bent knee fall out), heel slides and ankle pumps. Written handout issued. . Other treatment: Patient educated in the anatomy of the lymphatic system, etiology of lymphedema,and treatment of lymphedema with CDT. Patient educated in goal of therapy for patient to learn snf maintenance techniques for lymphedema. Patient education in lymphedema vs. Generalized edema. Patient education in trial of B LE compression with leggings, compression socks, radha, ect as she tried to wean off medication and to wear from first thing in am until bed time. Patient educated in the need for compression with chronic management of lymphedema. Patient education in elevation of the LE above the heart, low sodium diet and benefits of exercise for edema control Patient education in MLD and the purpose of a compression pump and that at present time, her symptoms do not indicated medical necessity of a compression pump. Will continue to monitor for future indications and need. Patient education on diaphragmatic breathing and benefits for edema control. Other treatment provided today: Patient educated regarding skin care, infection prevention, washing skin thoroughly and frequently,avoiding disruption of skin (shaving, bug bites, etc), avoiding sunburns, using Ph balancing moisturizer to keep skin moist, keeping nails short and avoid cutting cuticles, and performing skin checks. Patient educated on benefits and purpose of compression wrapping and then long-term use of garmentcompression. Patient was educated to avoid excessive strain during exercise, heavy lifting of the affected limb/s, tight straps or garments, avoid unnecessary surgeries, avoid hot baths/saunas/hot tubs, and the signs/symptoms of cellulitis. Patient was educated on importance of diaphragmatic breathing and was advised to obtain a compression garment prior air travel. Patient educated if compression wrapping occurs, please bring the compression bandages back clean and rolled. Patient was providedwith a handout from the [employer]. Assessment: This patient presents with stage 1 lymphedema of mild severity at this time with taking of medication and diuretics. . The etiology of the lymphedema is likely unknown, possible genetic. . Impairments for this patient include:minimal swelling at present and managed by current medication regimen. This patient will benefit from Complete Decongestive Therapy to decongest B LE and improve overall quality of life. Rehab Potential: questionable due to unknown etiology of edema. Patient participated in establishing goals. PT Diagnosis: edema B LE Precautions: none Relevant Comorbidities: previous foot surgery B, Knee surgery, IIH, endometriosis, pituitary gland issues Short term goals to be met by 01/19/23 1. Patient will be able to verbalize and demonstrate understanding of lymphedema signs and symptomsas well as infection prevention techniques 2. Patient will be fitted for B LE compression garments and wearing compliance intermediate accountant goals to be met by 02/16/22 1. Patient to be independent with home program including: skin care, self- massage/use of advanced pneumatic pump, self-bandaging, and home exercise program 2. Successful transition into compression garment 3. Patient will be able to maintain current B LE circumference without medication managment Patient Goal: maintain no swelling without need for medication to control. PT Eval Date: 12/22/22 Orders : 02/16/22 INITIAL CERTIFICATION DATES: From 12/22/22 to 02/16/2023 (8 weeks) Plan: Next treatment: assess response to wearing compression garments B LE and decreased medication management of symptoms and assess for further PT needs. Patient educated and acknowledged understanding of therapy diagnosis, prognosis, pain relief instructions, precautions, risks, benefits and agree with the treatment plan and goals. Patient will be discharged from therapy upon completion of goals, physician order, or when therapist determines patient is appropriate for discharge from skilled therapy services. Frequency/Duration 1 times per week for every 2-4 weeks for 8 [address]iela Lipscomb PT [facility] ATTENTION PHYSICIAN If you are unable to electronically sign this document, please print this document and sign below to certify this plan of care/treatment plan. By signing this document, I certify that I have reviewedthis plan of care and support the treatment. Please fax back to . Thank you. Provider Signature: Date: OPERATOR documented in this encounter Plan of [...] encounter Visit Diagnoses Diagnosis Bilateral lower extremity edema documented in this encounter Orders Outpatient Referral Count Last Ordered Date Ordered Date AMB REFERRAL ORDER TO PHYSICAL THERAPY 1 documented in this encounter Care Teams Aeronautics Commission Director Relationship Specialty Start Date End Date Jaime Dexter MD PCP - General Family Medicine 03/04/21 documented as of this encounter
--- OUTSIDE RECORDS SUMMARY | 2024-02-21 19:35 | XMS_ITS | Encounter Summary ---
Author Organization [facility] Healthcare Address [address] [place] [address] Care Team Providers Care Waste Chopper Name Role Phone Daily Cruz MD Primary Care Provider [phone] Reason for Referral * MRI/CAT/PET Scan (Routine) - Closed Specialty Diagnoses / Procedures Referred By Matt burk Referred To Contact Radiology Diagnoses Abnormal CT of the head Procedures MRI Brain W WO Contrast (Pituitary) Daily Cruz MD Phone: tel: fax: [address] [phone] Referral ID Status Reason Start Date Expiration Date Visits Re quested Visits Authorized [id number] Closed 12/05/2022 01/04/2024 1 1 Reason for Visit * MRI/CAT/PET Scan (Routine) - Closed Specialty Diagnoses / Procedures Referred By Matt burk Referred To Contact Radiology Diagnoses Abnormal CT of the head Procedures MRI Brain W WO Contrast (Pituitary) Daily Cruz MD Phone: tel: fax: [address] [phone] Referral ID Status Reason Start Date Expiration Date Visits Re quested Visits Authorized [id number] Closed 12/05/2022 01/04/2024 1 1 Encounter Details Date Type Department Care Team (Latest Contact Info) Description 12/13/2022 7:00 AM CDT - 12/13/2022 11:59 PM CDT Hospital Encounter [facility] - Imaging [address] [place] [address] of the head Discharge Disposition: Discharge to home or self [...] on file Legal Sex Female 3:37 PM WHARF HAND Gender Identity Female 03/02/2020 4:27 PM WHARF HAND Sexual Orientation Straight 07/10/2019 11 :13 PM CDT documented as of this encounter Medications at Time of Discharge cefdinir (OMNICEF) 300 mg capsuleIndication s:Acute bronchitis due to other specified organisms Take 1 capsule (300 mg total) by mouth 2 (two) times a day for 10 days 20 capsule 12/12/2022 3 acetaminophen-asp irin-caffeine (EXCEDRIN MIGRAINE) 250-250-65 mg per [...] nostril daily 48 mL 1 02/25/2022 4 HYDROcodone-chlor pheniramine ER (TUSSIONEX PENNKINETIC) 2-1.6 mg/mL ER suspensionIndicat ions:Acute bronchitis due to other specified organisms Take 5 mL by mouth every 12 (twelve) hours as needed for cough 100 mL 12/12/2022 3 hydrocortisone 2.5 % ointmentIndicatio ns:Rash Apply topically 2 (two) times a day 30 g 03/02/2022 4 ibuprofen (ADVIL,MOTRIN) 800 mg tabletIndications :Acute bilateral low back pain without sciatica Take 1 tablet (800 mg total) by mouth 3 (three) times a day 90 tablet 09/27/2021 4 magnesium oxide 400 mg magnesium capsule Take 400 mg by mouth daily 4 methylPREDNISolon e (MEDROL DOSEPACK) 4 mg DosepackIndicatio ns:Acute bronchitis due to other specified organisms Take as directed on package. 21 tablet 12/12/2022 3 montelukast (SINGULAIR) 10 mg tabletIndications :Reactive airway [...] mouth daily 4 rimegepant (Nurtec ODT) tablet,disintegra ting Take by mouth as needed 3 triamcinolone (KENALOG) 0.1 % creamIndications: Allergic contact [...] (PITUITARY) Schedule Routine, Read Routine (OP Routine) 12/13/2022 8:[address] of the head documented in this encounter Results * MRI [...] it. Electronically signed by: Serge Strong MD Narrative 12/13/2022 10:25 AM CDT [...] Visit Diagnoses Diagnosis Abnormal CT of the head Nonspecific (abnormal) findings on radiological and other examination of skull and head documented in this encounter Administered Medications Inactive Administered Medications - up to 3 most recent administrations Medication Order MAR Action Action Date Dose Rate Site gadoterate meglumine injection 20 mL 20 mL, intravenous, Once in imaging, contrast, Starting on Mon12/13/22 at 0757, For 1 dose Contrast Given 12/13/2022 8:23 AM CDT 20 mL documented in this encounter Orders Medications Ordered That Gerhard ht Not Have Been Administered Count Last Ordered Date First Ordered Date gadoterate meglumine injection 20 mL 1 11/15 documented in this encounter Care Teams Waste Chopper Relationship Specialty Start Date End Date Daily Cruz MD PCP - General Family Medicine 03/04/21 documented as of this encounter
--- OUTSIDE RECORDS SUMMARY | 2024-02-21 19:35 | XMS_ITS | Encounter Summary ---
Author Organization [facility] Healthcare Address [address] [place] [address] Care Team Providers Care Medical Attendant Name Role Phone Daily Cruz MD Primary Care Provider [phone] Reason for Visit * Reason Comments Migraine Encounter Details Date Type Department Care Team (Late st Contact Info) Description 11/30/2022 6:02 PM CDT - 11/30/2022 9:49 PM CDT Emergency [facility] Emergency Department [address] [place] [address] Migraine without aura and without status migrainosus, not intractable (Primary Dx) Discharge Disposition: Discharge to home or self [...] on file Legal Sex Female 3:37 PM FACILITY EXAMINER Gender Identity Female 03/02/2020 4:27 PM FACILITY EXAMINER Sexual Orientation Straight 07/10/2019 11 :13 PM CDT documented as of this encounter Last Filed Vital Signs Vital Sign Reading Time Taken Comments Blood Pressure 135/75 11/30/2022 9:30 PM CDT Pulse 78 11/30/2022 9:30 PM CDT Temperature 36.8 ??C (98.2 ??F) 11/30/2022 5:35 PM CD T Respiratory Rate 32 11/30/2022 8:00 PM CDT Oxygen Saturation 97% 11/30/2022 9:30 PM CDT Inhaled Oxygen Concentration - - Weight 109.8 kg (242 lb) 11/30/2022 3:07 PM CDT Height - - Body Mass Index 37.9 11/25/2022 11:16 AM CDT documented in this encounter Discharge Instructions * Discharge Instructions* Leatha Dave NP - 11/30/2022 9:26 PM CDT See special care instructions attached Follow up with PMD without fail * Attachments The following attachments cannot be sent through Care Everywhere. * Headache, Migraine, Classic ([place]) * Migraine and Tension Headaches, What Are? ([place]) documented in this encounter Medications at Time [...] cyclobenzaprine (FLEXERIL) 10 mg tablet 09/09/2022 4 famotidine (PEPCID) 40 mg tabletIndications :Gastroesophageal [...] mg total) by mouth daily 30 capsule 1 08/30/2022 3 fluticasone propionate (FLONASE) 50 mcg/actuation nasal sprayIndications: [...] documented in this encounter ED Notes * Leatha Dave, TIN DIPPER - 11/30/2022 9:17 PM CDT HPI Cc: migraine headache for 2 days with photophobia, N/V, recently stopped diuretic for family planning To er w complaints of right sided headache since yesterday that radiates down right side of neck and into right arm. States it has been intermittent for the past week but has been severe since yesterday. Also endorses fluid retention. States she stopped taking her diuretics 2 weeks ago. Also endorses multiple nose bleeds in past week and SOB Hx migraines and pseudotumor cerebri Chief Complaint Patient presents with Migraine Pt reports she called her PMD office re: headache and instructed to come to [facility] due to being less busy than [facility]. Has not seen a neurologist of recent due to insurance issues/lapses. Has high riskOB appt tomorrow scheduled PMH: pseudotumor cerebri, HTN, lymphedema, hyperthyroidism, obesity PSH: non smoker no ETOH History provided by: Patient manager regulatory used: No Headache Pain location: Generalized Quality: Dull Radiates to: Does not radiate Severity currently: 5/10 Severity at highest: 9/10 Onset quality: Gradual Duration: 2 days Timing: Constant Progression: Waxing and waning Chronicity: Recurrent Similar to prior headaches: yes Context: activity, bright light, emotional stress and loud noise Context: not caffeine, not coughing, not defecating, not eating, not exposure to cold air, not intercourse, no recent head injury, no recent lumbar puncture and not straining Worsened by: Activity, light and sound Relieved by: NSAIDs and acetaminophen Associated symptoms: blurred vision, eye pain, nausea, photophobia and vomiting Associated symptoms: no abdominal pain, no back pain, no congestion, no cough, no diarrhea, no dizziness, no drainage, no ear pain, no facial pain, no fatigue, no fever, no focal weakness, no hearingloss, no loss of balance, no myalgias, no near-syncope, no neck pain, no neck stiffness, no numbness, no paresthesias, no seizures, no sinus pressure, no sore throat, no swollen glands, no syncope, no tingling, no URI, no visual change and no weakness Associated symptoms comment: 20# weight gain in 2 weeks secondary to stopping diuretic. Patient History: Patient Active Problem List Diagnosis Date Noted Bilateral lower extremity edema 11/25/2022 Thrush, oral 07/15/2022 Elevated blood pressure, situational 05/27/2022 Hypertension, essential 05/27/2022 Panic attack 03/30/2022 Acute bacterial sinusitis 03/22/2022 Persistent asthma without complication 03/22/2022 Bulging lumbar disc 12/22/2021 Allergic conjunctivitis of both eyes 12/21/2021 Seasonal allergic rhinitis due to pollen 12/21/2021 Allergic reaction 12/06/2021 Gastroesophageal reflux disease without esophagitis 11/16/2021 Constipation 11/16/2021 Diarrhea 11/16/2021 Endometriosis 10/26/2021 RLQ abdominal pain 10/26/2021 Blood in stool 10/26/2021 Localized swelling of left foot 10/11/2021 High serum c-peptide 10/11/2021 Chronic pain of multiple joints 10/11/2021 White matter abnormality on MRI of brain 10/11/2021 Hyperglycemia 09/27/2021 Plantar fasciitis 09/07/2021 Pure hypercholesterolemia 07/20/2021 Patellar maltracking, left 10/06/2020 Other chronic pain 10/05/2020 Bipolar 2 disorder (CMS/HCC) (HCC) 10/05/2020 Well adult exam 08/25/2020 Leg cramping 08/19/2020 Acute recurrent maxillary sinusitis 08/05/2020 Herpes zoster without complication 06/09/2020 Prepatellar bursitis of both knees 05/20/2020 Lumbar spondylosis 05/20/2020 Fluid retention 05/20/2020 Reactive airway disease without asthma 04/22/2020 Anxiety and depression 04/01/2020 Acute bilateral low back pain without sciatica 03/04/2020 Chronic pain of both knees 03/04/2020 Lumbar degenerative disc disease 03/04/2020 Chronic pain of both hips 03/04/2020 Chronic bilateral low back pain 01/29/2020 Left hip pain 01/29/2020 Acute pain of left knee 01/29/2020 Pustular rash 01/29/2020 Exposure to COVID-19 virus 12/18/2019 Acute cough 12/18/2019 Nasal congestion 12/18/2019 Arthralgia 08/01/2019 Elevated sedimentation rate 08/01/2019 Moderate persistent asthma without complication 07/11/2019 Attention deficit disorder (ADD) in adult 07/11/2019 Rathke's cyst (HCC) 07/11/2019 Pseudotumor cerebri 07/11/2019 Pain and swelling of lower extremity 07/11/2019 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 or arthrodesis 07/01/2019 Painful orthopaedic hardware (HCC) 07/01/2019 Seizure ([facility]) 04/25/2017 Morbid obesity with BMI of 40.0-44.9, adult ([facility]) 03/22/2016 Benign intracranial hypertension 03/11/2016 Hyperthyroidism 09/28/2015 Family history of seizure disorder 05/28/2015 History of syncope 05/28/2015 Vitamin D deficiency 05/28/2015 Obesity due to excess calories 12/24/2014 Simple obesity 10/22/2014 Allergic rhinitis due to allergen 01/31/2009 Candidiasis of vagina 01/31/2009 Gastritis 01/31/2009 Increased frequency of urination 01/31/2009 Migraine headache 01/31/2009 Paronychia 01/31/2009 Screening for condition 01/31/2009 Seborrhea 01/31/2009 Skin striae 01/31/2009 Tinea pedis 01/31/2009 Past Medical History: Diagnosis Date ADHD (attention deficit hyperactivity disorder) Anxiety Arthritis Asthma Brain concussion 2010, 2009 Chronic bronchitis (HCC) Depression Gastric reflux GERD (gastroesophageal reflux disease) PRN tums IIH (idiopathic intracranial hypertension) Pseudotumor cerebri. reports last spinal tap 2017. currently following with PCP, previously has followed with neuro Irritability Jaundice / waist presser Kidney stone 2019 Low back pain Lymphedema [...] 01/2022 meniscus repair LAPAROSCOPIC ENDOMETRIOSIS FULGURATION 2018 TONSILLECTOMY WISDOM TOOTH EXTRACTION Family History Problem [...] Never Passive exposure: Past Smokeless tobacco: Never Vaping Use Vaping Use: Never used Substance and Sexual Activity Alcohol use: Not Currently Alcohol/week: 0.0 standard drinks of alcohol Comment: Maybe a drink every few months Drug use: Not Currently Types: Alcohol Comment: ~3 drinks/month Sexual activity: Yes Partners: Male control/protection: I.U.D. Social History Social History Narrative Not on file Review of Systems Review of Systems Constitutional: Negative for chills, fatigue and fever. HENT: Negative for congestion, ear pain, hearing loss, postnasal drip, sinus pressure and sore throat. Eyes: Positive for blurred vision, photophobia and pain. Negative for visual disturbance. Respiratory: Negative for cough and shortness of breath. Cardiovascular: Negative for chest pain, palpitations, syncope and near-syncope. Gastrointestinal: Positive for nausea and vomiting. Negative for abdominal pain and diarrhea. Genitourinary: Negative for dysuria and hematuria. Musculoskeletal: Negative for arthralgias, back pain, myalgias, neck pain and neck stiffness. Skin: Negative for color change and rash. Neurological: Positive for headaches. Negative for dizziness, focal weakness, seizures, syncope, weakness, numbness, paresthesias and loss of balance. All other systems reviewed and are negative. Physical Exam ED Triage Vitals [11/30/22 1507] Temp Pulse Resp BP SpO2 36.9 ??C (98.5 ??F) 84 18 155/85 97 % Temp src Heart Rate Source Patient Position BP Location FiO2 (%) Oral -- -- -- -- Height Height Method Weight Weight Method -- -- 109.8 kg (242 lb) -- Physical Exam Vitals and nursing note reviewed. Constitutional: General: She is not in acute distress. Appearance: She is well-developed. HENT: Head: Normocephalic and atraumatic. Eyes: Extraocular Movements: Extraocular movements intact. Conjunctiva/sclera: Conjunctivae normal. Pupils: Pupils are equal, round, and reactive to light. Cardiovascular: Rate and Rhythm: Normal rate and regular rhythm. Heart sounds: No murmur heard. Pulmonary: Effort: Pulmonary effort is normal. No respiratory distress. Breath sounds: Normal breath sounds. Abdominal: Palpations: Abdomen is soft. Tenderness: There is no abdominal tenderness. Musculoskeletal: General: No swelling. Cervical back: Normal range of motion and neck supple. Skin: General: Skin is warm and dry. Capillary Refill: Capillary refill takes less than 2 seconds. Neurological: General: No focal deficit present. Mental Status: She is alert and oriented to person, place, and time. Cranial Nerves: No cranial nerve deficit. Sensory: No sensory deficit. Motor: No weakness. Coordination: Coordination normal. Gait: Gait normal. Deep Tendon Reflexes: Reflexes normal. Psychiatric: Mood and Affect: Mood normal. Behavior: Behavior normal. MDM Medical Decision Making Migraine headache, FVO, intracranial HTN, viral syndrome Plan: basic labs, IVF to promote IV volume, covid swab, droperidol for migraine management. Head CTto evaluate for ventricle status Amount and/or Complexity of Data Reviewed Independent Historian: Details: self External Data Reviewed: radiology and notes. Details: EMR review compared [address] no acute changes Labs: Decision-making details documented in ED Course. Details: independent review and interpretaton of labs Radiology: ordered and independent interpretation performed. Decision-making details documented in ED Course. Details: independent review and interpretaton of imaging Risk OTC drugs. Prescription drug management. Parenteral controlled substances. Drug therapy requiring intensive monitoring for toxicity. Decision regarding hospitalization. Diagnosis or treatment significantly limited by social determinants of health. Risk Details: Shared decision making with patient and her family regarding plan of care and disposition. I independently reviewed all labs and diagnostic results as part of my MDM. I discussed the findings, diagnosis, and treatment plan with the patient and family. Allowed time for questions.We discussed the need to f/u with PCP and were educated on medication use, symptom management. They were given return to ED precautions. They verbalized understanding and are in agreement with the treatmentplan Pt reports her headache/N/V sxs are resolved and would like to be d/c to home requesting work note Social Determinants of Health Tobacco Use: Low Risk (11/25/2022) Patient History Smoking Tobacco Use: Never Smokeless Tobacco Use: Never Passive Exposure: Past Alcohol Use: Not At Risk (11/25/2022) AUDIT-C Frequency of Alcohol Consumption: Monthly or less Average Number of Drinks: 1 or 2 Frequency of Binge Drinking: Never Financial Resource Strain: Not on file Food Insecurity: Not on file Transportation Needs: Not on file Physical Activity: Not on file Stress: Not on file Social Connections: Not on file Intimate Partner Violence: Not on file Depression: Not at risk (11/22/2022) PHQ-2 PHQ-2 Score: 0 Housing Stability: Not on file Health Literacy: Not on file Utilities: Not on file ED Course as of 11/30/222125 Time: 11/30 1852 Value: XR Chest PA Lateral 2 Views Comment: Unremarkable CXR By: Leatha Dave NP Final diagnoses: Migraine without aura and without status migrainosus, not intractable Leatha Dave NP 11/30/222124 Leatha Dave NP 11/30/222125 * Baljit Butler RN - 11/30/2022 8:04 PM CDT Bed: ED25 Expected date: Expected time: Means of arrival: Comments: Baljit Butler RN 11/30/222003 * Shellie Rodríguez RN - 11/30/2022 3:00 PM CDT To er w complaints of right sided headache since yesterday that radiates down right side of neck and into right arm. States it has been intermittent for the past week but has been severe since yesterday. Also endorses fluid retention. States she stopped taking her diuretics 2 weeks ago. Also endorses multiple nose bleeds in past week and SOB Hx migraines and pseudotumor cerebri documented in this encounter Plan of Treatment [...] Name Priority Date/Time Associated Diagnosis Comments CT HEAD WO CONTRAST ED 11/30/2022 8 :12 PM CDT INFLUENZA A/B, RSV, AND COVID-19 PCR Routine 11/30/2022 7:09 PM CDT EGFR STAT 11/30/2022 5:33 PM CDT DIFFERENTIAL AUTO STAT 11/30/2022 5:3 3 PM CDT PRO B-TYPE NATRIURETIC PEPTIDE STAT 11/30/2022 5:33 PM CDT CBC WITH AUTO DIFFERENTIAL STAT 11/30/2022 5:33 PM CDT XR CHEST PA LATERAL 2 VIEWS ED 11/30/2022 5:33 PM CDT COMPREHENSIVE METABOLIC PANEL STAT 11/30/2022 5:33 PM CDT ECG 12-LEAD STAT 11/30/2022 3:11 PM CDT documented in this encounter Results * CT Head WO Contrast (11/30/2022 8:12 PM CDT) Anatomical Region Laterality Modality Head and Neck N/A Computed Tomogra phy 11/30/2022 8:08 PM CDT Addenda Addendum by Angel Adair MD on 12/01/2022 10:54 AM CDT Discussed overread finding with Kylah at pcp office 12/01/22. Wanda JENSEN RN. Edited by: Wanda Jama Electronically signed by: Angel Adair M.D. Impressions 12/01/2022 6:42 AM CDT 1. ??No CT evidence of acute intracranial abnormality. 2. ??6 mm increased density nodule seen anteriorly within the sella incompletely characterized but similar compared to 08/30/2022, possibly a cyst. ??Further evaluation can be made with pituitary protocol MRI with and without contrast. ADDENDUM - This addendum is being placed on the report for a non-time dependent finding on a patient who was discharged from the emergency room (1C). ??6 mm increased density nodule seen anterior within the sella, possibly a cyst, and similar compared to 08/30/2022. ??Further evaluation can be made with pituitary protocol MRI of the brain with and without contrast. Attempts will be made to contact the patient or his/her primary doctor during regular business hours Monday-Monday. An addendum will be issued to confirm contact has been made to communicate this finding. For the purposes of software quality test engineer, this study was initially interpreted by teleradiology. ??There is a non-emergent discrepancy that does not immediately impact patient care. Electronically signed by: Angel Adair M.D. Narrative 12/01/2022 6:42 AM CDT EXAM:CT HEAD WO CONTRAST INDICATION: Headache, intracranial hemorrhage suspected headace wtih nose bleeds COMPARISON: CT 08/30/2022 TECHNIQUE: Standard noncontrast axial CT sections through the head. FINDINGS: Brain Parenchyma: Fullness in the region of the pituitary gland with relative increased density nodule measuring up to 6 mm at the anterior aspect of the sella (series 6, image 21) with corresponding cystic lesion seen in the region on 02/28/2020 MRI. ??No acute hemorrhage, cerebral edema, or acute cortical infarction. Otherwise no mass, mass effect, or midline shift. Ventricles and Sulci: Normal for age. ?? Extra-Axial Spaces: No extra-axial fluid collection. Orbits: Intact. Paranasal Sinuses: Clear. Mastoid Air Cells: Clear. Cranium: Intact. Extracranial Soft Tissues: No acute abnormality. Procedure Note Angel Adair MD - 12/01/2022 EXAM:CT HEAD WO CONTRAST INDICATION: Headache, intracranial hemorrhage suspected headace wtih nose bleeds COMPARISON: CT 08/30/2022 TECHNIQUE: Standard noncontrast axial CT sections through the head. FINDINGS: Brain Parenchyma: Fullness in the region of the pituitary gland with relative increased density nodule measuring up to 6 mm at the anterior aspect of the sella (series 6, image 21) with corresponding cystic lesion seen in the region on 02/28/2020 MRI. No acute hemorrhage, cerebral edema, or acute cortical infarction. Otherwise no mass, mass effect, or midline shift. Ventricles and Sulci: Normal for age. Extra-Axial Spaces: No extra-axial fluid collection. Orbits: Intact. Paranasal Sinuses: Clear. Mastoid Air Cells: Clear. Cranium: Intact. Extracranial Soft Tissues: No acute abnormality. IMPRESSION: 1. No CT evidence of acute intracranial abnormality. 2. 6 mm increased density nodule seen anteriorly within the sella incompletely characterized but similar compared to 08/30/2022, possibly a cyst. Further evaluation can be made with pituitary protocol MRI with and without contrast. ADDENDUM - This addendum is being placed on the report for a non-time dependent finding on a patient who was discharged from the emergency room (1C). 6 mm increased density nodule seen anterior within the sella, possibly a cyst, and similar compared to 08/30/2022. Further evaluation can be made with pituitary protocol MRI of the brain with and without contrast. Attempts will be made to contact the patient or his/her primary doctor during regular business hours Monday-Monday. An addendum will be issued to confirm contact has been made to communicate this finding. For the purposes of software quality test engineer, this study was initially interpreted by teleradiology. There is a non-emergent discrepancy that does not immediately impact patient care. Electronically signed by: Angel Adair M.D. Leatah Sher Counts TIN DIPPER IMG CT PROCEDURES Edited Resu lt - Final * Influenza A/B, RSV, and COVID-19 PCR Nasopharyngeal (11/30/2022 7:09 PM CDT) COVID-19 RNA Negative Negative Influenza A RNA Negative Negative [facility] Influenza B RNA Negative Negative [facility] RSV RNA Negative Negative [facility] Comment: Interpretive data: This test is performed using the [employer] Xpert Xpress CoV-2/Flu/RSV plus assay. This is a multiplex, real-time reverse transcriptase PCR assay intended for the qualitative detection of nucleic acid from SARS-CoV-2, influenza A, influenza B, and respiratory syncytial virus. This assay has been reviewed by the FDA for Emergency Use Authorization (EUA). The performance characteristics have been verified by the performing laboratory. Results must be considered in the clinical context, and a negative result does not rule out infection. Interpretive Data last revised 2021. Nasopharyngeal 11/30/2022 7: 09 PM CDT 11/30/2022 7:19 PM CDT Narrative [facility] - 11/30/2022 7:58 PM CDT Is the Patient experiencing symptoms consistent with COVID?->No Reason for testing?->Symptomatic Leatha Dave TIN DIPPER LAB MICROBIOLOGY - GENERAL OR DERABLES Final Result [facility] [address] Department [place] [address] * eGFR (11/30/2022 5:33 PM CDT) eGFR 111 mL/min/1. 73 m2 Comment: Interpretive Data Reference [...] Current interpretive data was last reviewed 2020. Blood 11/30/2022 5:33 PM CDT 11/30/2022 6:01 PM CDT us Jud Anthony MD LAB BLOOD ORDERABLES Final Result [facility] [address] Department [place] [address] * (ABNORMAL) Differential, auto (11/30/2022 5:33 PM CDT) Neutrophil abs 8.8(H) 1.7 - 6.5 K/cumm Imm gran abs 0.0 0.0 - 0.1 K/cumm [facility] Lymphocyte abs 2.1 0.8 - 3.3 K/cumm [facility] Monocyte abs 0.6 0.2 - 0.8 K/cumm [facility] Eosinophil abs 0.1 0.0 - 0.5 K/cumm [facility] Basophil abs 0.0 0.0 - 0.1 K/cumm [facility] Neutrophil pct 75.4 % [facility] Comment: Interpretive Data Percent cell count reference ranges are not reported, since discordance with absolute values may lead to misinterpretation of CBC data. Current Interpretive Data was last revised on 2017. Imm gran pct 0.3 % [facility] Comment: Interpretive Data Percent cell count reference ranges are not reported, since discordance with absolute values may lead to misinterpretation of CBC data. Current Interpretive Data was last revised on 2017. Lymphocyte pct 18.1 % [facility] Comment: Interpretive Data Percent cell count reference ranges are not reported, since discordance with absolute values may lead to misinterpretation of CBC data. Current Interpretive Data was last revised on 2017. Monocyte pct 5.0 % [facility] Comment: Interpretive Data Percent cell count reference ranges are not reported, since discordance with absolute values may lead to misinterpretation of CBC data. Current Interpretive Data was last revised on 2017. Eosinophil pct 0.9 % [facility] Comment: Interpretive Data Percent cell count reference ranges are not reported, since discordance with absolute values may lead to misinterpretation of CBC data. Current Interpretive Data was last revised on 2017. Basophil pct 0.3 % [facility] Comment: Interpretive Data Percent cell count reference ranges are not reported, since discordance with absolute values may lead to misinterpretation of CBC data. Current Interpretive Data was last revised on 2017. Blood 11/30/2022 5:33 PM CDT 11/30/2022 6:01 PM CDT us Jud Anthony MD LAB BLOOD ORDERABLES Final Result [facility] [address] Department [place] [address] * Pro B-type natriuretic peptide (11/30/2022 5:33 PM CDT) NT-proBNP 80 <=300 pg/mL Comment: Interpretive Comments: A. Dyspnea in Acute Care Setting All Ages: ?< 300 pg/ml, acute heart failure unlikely. < 50 yrs: ?300 - 450 pg/ml, further investigation warranted. ? > 450 pg/ml, acute heart failure likely. 50 - 74 yrs: ? 300 - 900 pg/ml, further investigation warranted. ? > 900 pg/ml, acute heart failure likely . > or = 75 yrs: ? 450 - 1800 pg/ml, further investigation warranted. ? > 1800 pg/ml, acute heart failure likely. B. Non-acute Setting < 75 yrs ? < 125 pg/ml, rules out heart failure. ? > or = 125 pg/ml, further investigation warranted. > or = 75 yrs ?< 450 pg/ml, rules out heart failure. ? > or = 450 pg/ml, further investigation warranted. - Knowledge of each individual patient's NT-proBNP range may be more useful than using similar cut-points for every patient. Please note that marked elevations in NT-proBNP levels may be observed in state other than Left Ventricular Congestive Failure, including: acute coronary syndromes, right heart strain/failure (including pulmonary embolism and cor pulmonale), critical illness, renal failure, as well as advanced age. - References: 1. Ye PEARCE et.al. Eur Heart J. 2006:27:330-337. 2. Dianna RW, Dedrick GABRIEL. J. AM Kaylene Cardiol: Cardiovasc Imag. 2009;2: 216- 225. Interpretive Data Last Revised Date: 2017. Blood 11/30/2022 5:33 PM CDT 11/30/2022 6:01 PM CDT us Jud Anthony MD LAB BLOOD ORDERABLES Final Result [facility] [address] Department [place] [address] * (ABNORMAL) CBC with auto differential (11/30/2022 5:33 PM CDT) WBC 11.6(H) 3.8 - 9.9 K/cumm Hgb 12.1 11.9 - 15.5 g/dL [facility] Comment: Interpretive Data A reference range for this assay has not been established for patients with an unknown legal sex. Please refer to the laboratory test catalog for established sex-specific reference intervals. Current interpretive data was last revised on 2022. Hct 38.9 35.6 - 45.5 % [facility] Comment: Interpretive Data A reference range for this assay has not been established for patients with an unknown legal sex. Please refer to the laboratory test catalog for established sex-specific reference intervals. Current interpretive data was last revised on 2022. Plt 349 150 - 400 K/cumm [facility] MPV 10.1 9.1 - 12.3 fL [facility] RBC 4.09 3.90 - 5.20 M/cumm [facility] Comment: Interpretive Data A reference range for this assay has not been established for patients with an unknown legal sex. Please refer to the laboratory test catalog for established sex-specific reference intervals. Current interpretive data was last revised on 2022. MCV 95.1 81.3 - 96.4 fL [facility] MCH 29.6 27.1 - 33.3 pg [facility] MCHC 31.1(L) 32.3 - 35.7 g/dL [facility] RDW CV 14.6 11.1 - 14.9 % [facility] RDW SD 51.0(H) 35.7 - 48.1 fL [facility] NRBC abs 0.00 0.00 - 0.01 K/cumm [facility] Blood 11/30/2022 5:33 PM CDT 11/30/2022 6:01 PM CDT us Jud Anthony MD LAB BLOOD ORDERABLES Final Result [facility] [address] Department [place] [address] * Comprehensive metabolic panel (11/30/2022 5:33 PM CDT) Sodium 137 135 - 145 mmol/L Potassium, pl 4.0 3.3 - 4.9 mmol/L [facility] Chloride 103 97 - 110 mmol/L [facility] CO2 27 22 - 32 mmol/L [facility] Anion gap 7 2 - 15 mmol/L [facility] BUN 11 6 - 25 mg/dL [facility] Creatinine 0.74 0.60 - 1.10 mg/dL [facility] Glucose 94 70 - 199 mg/dL [facility] Comment: Interpretive Data Fasting glucose >/= 126 [...] Current interpretive data was last revised 2022. Calcium 9.2 8.5 - 10.3 mg/dL [facility] Bilirubin, total <0.2 0.1 - 1.2 mg/dL [facility] Protein, pl 7.0 6.5 - 8.5 g/dL [facility] Albumin 4.1 3.5 - 5.0 g/dL [facility] Alk phos 103 40 - 130 Units/L [facility] ALT 16 7 - 45 Units/L [facility] AST 16 10 - 45 Units/L [facility] Blood 11/30/2022 5:33 PM CDT 11/30/2022 6:01 PM CDT us Jud Anthony MD LAB BLOOD ORDERABLES Final Result [facility] [address] Department [place] [address] * XR Chest PA Lateral 2 Views (11/30/2022 5:33 PM CDT) Anatomical Region Laterality Modality Body, Chest N/A Computed Radiogr aphy 11/30/2022 5:52 PM CDT Impressions 11/30/2022 5:52 PM CDT Lungs are clear. ??Stable heart size. ??No pneumothorax or pleural effusion. ??No acute findings. Electronically signed by: Atilio Catalan M.D. Narrative 11/30/2022 5:52 PM CDT X-ray chest PA lateral 2 views HISTORY: Shortness of breath Comparison study 07/16/2022 Procedure Note Atilio Catalan MD - 11/30/2022 X-ray chest PA lateral 2 views HISTORY: Shortness of breath Comparison study 07/16/2022 IMPRESSION: Lungs are clear. Stable heart size. No pneumothorax or pleural effusion. No acute findings. Electronically signed by: Atilio Catalan M.D. us Jud Anthony MD IMG XR PROCEDURES Final Res ult * ECG 12 lead (11/30/2022 3:11 PM CDT) 11/30/2022 3:11 PM CDT Narrative [facility] - 12/01/2022 4:27 PM CDT Vent Rate: 81 bpm RR Interval: 737 msec [place] Interval: 151 msec QRS Duration: 101 msec QT Interval: 376 msec QTC Interval: 413 msec P-R-T [place]: 11 - 14 - 19 degrees IMPRESSION: SINUS RHYTHM MINIMAL VOLTAGE CRITERIA FOR LVH, CONSIDER NORMAL VARIANT BORDERLINE ECG Electronically Signed By: Mat Gusman MD [facility] us Anthony Guadalupe DO ECG ORDERABLES Final Result [facility] documented in this encounter Visit Diagnoses Diagnosis Migraine without aura and without status migrainosus, not intractable- Primary documented in this encounter Administered Medications Inactive Administered Medications - up to 3 most recent administrations Medication Order MAR Action Action Date Dose Rate Site droPERidol (INAPSINE) injection 0.625 mg 0.625 mg, intravenous, Administer over 5 Minutes, Once, On Mon11/30/22 at 1856, For 1 dose Given 11/30/2022 7:05 PM CDT 0.625 mg sodium chloride 0.9% bolus 1,000 mL 1,000 mL, intravenous, Once, On Mon11/30/22 at 1856, For 1 dose New Bag 11/30/2022 7:08 PM CDT 1,000 mL 0 mL/hr documented in this encounter Active and Recently Administered Medications Times are shown in CDT. Scheduled Medication Order 11/28/2022 11/29/2022 11/30/2022 droPERidol (INAPSINE) injection 0.625 mg (COMPLETED) 0.625 mg, intravenous, Administer over 5 Minutes, Once, On Mon11/30/22 at 1856, For 1 dose 190 (Given - Provid er: Harshil Brooks RN) sodium chloride 0.9% bolus 1,000 mL (COMPLETED) 1,000 mL, intravenous, Once, On Mon11/30/22 at 1856, For 1 dose 1907 (New Bag - Prov ider: Wendy Haynes RN)2148 (Stopped - Provider: Wendy Haynes RN) documented in this encounter Orders IV Count Last Ordered Date First Orde red Date SALINE LOCK IV 1 11/30/2022 documented in this encounter Care Teams Medical Attendant Relationship Specialty Start Date End Date Daily Cruz MD PCP - General Family Medicine 03/04/21 documented as of this encounter
--- OUTSIDE RECORDS SUMMARY | 2024-02-21 19:35 | XMS_ITS | Encounter Summary ---
Author Organization [facility] Healthcare Address [address] [place] [address] Care Team Providers Care Development Manager Name Role Phone Daily Cruz MD Primary Care Provider [phone] Encounter Details Date Type Department Care Team (Late st Contact Info) Description 12/22/2022 Plan of Care Documentation [facility] OP Physical Therapy [address] [place] [id number] Social History Tobacco Use Types Packs/Day Years [...] on file Legal Sex Female 3:37 PM [facility] Gender Identity Female 03/02/2020 4:27 PM [facility] [facility] Sexual Orientation Straight 07/10/2019 11 :13 PM [...] on filedocumented in this encounter Care Teams Development Manager Relationship Specialty Start Date End Date Daily Cruz MD PCP - General Family Medicine 03/04/21 documented as of this encounter
--- OUTSIDE RECORDS SUMMARY | 2024-02-21 19:35 | XMS_ITS | Encounter Summary ---
Author Organization [facility] Address [address] [place] [address] Phone Care Team Providers Care Chemical Processing Equipment Repairer Name Role Phone Daily Cruz MD Primary Care Provider [phone] Reason for Referral * MRI/CAT/PET Scan (Routine) - Closed Specialty Diagnoses / Procedures Referred By Matt burk Referred To Contact Radiology Diagnoses Chronic sinusitis, unspecified location Procedures CT Sinus Stealth WO Contrast Elyssa Sawyer NP [address] [place] [address] Phone: tel: fax: [address] [address] Referral ID Status Reason Start Date Expiration Date Visits Re quested Visits Authorized [id number] Closed 01/16/2023 02/15/2024 1 1 EE TASTER * Procedure (Routine) - Closed Specialty Diagnoses / Procedures Referred By Matt burk Referred To Contact Pulmonology Diagnoses Moderate persistent asthma with acute exacerbation Procedures Pulmonary Function Test -[facility] Adult PFT Lab- CAM-8D; Spirometry with Bronchodilator, DLCO; Spirometry Elyssa Sawyer NP [address] [place] [address] Phone: tel: fax: Referral ID Status Reason Start Date Expiration Date Visits Re quested Visits Authorized [id number] Closed 01/16/2023 02/15/2024 1 1 EE TASTER Reason for Visit * Reason Comments Follow-up Encounter Details Date Type Department Care Team (Nallely okeefe Contact Info) Description 01/16/2023 4:00 PM COFFEE TASTER Office Visit [facility]ology [address] [place] [address] Elyssa Sawyer NP [address] [place] [address] Moderate persistent asthma with acute exacerbation (Primary Dx); Chronic sinusitis, unspecified location; Seasonal allergic rhinitis due to pollen Social [...] on file Legal Sex Female 3:37 PM COFFEE TASTER Gender Identity Female 03/02/2020 4:27 PM COFFEE TASTER Sexual Orientation Straight 07/10/2019 11 :13 PM CDT documented as of this encounter Last Filed Vital Signs Vital Sign Reading Time Taken Comments Blood Pressure 124/85 01/16/2023 3:58 PM COFFEE TASTER Pulse 73 01/16/2023 3:58 PM COFFEE TASTER Temperature - - Respiratory Rate - - Oxygen Saturation 97% 01/16/2023 3:58 PM COFFEE TASTER Inhaled Oxygen Concentration - - Weight 116.1 kg (256 lb) 01/16/2023 3:58 PM COFFEE TASTER Height 170.2 cm (5' 7 ) 01/16/2023 3:58 PM COFFEE TASTER Body Mass Index 40.1 01/16/2023 3:58 PM COFFEE TASTER documented in this encounter Ordered Prescriptions Prescription Sig Dispense Quantity Refills Last Filled Start Date End Date azithromycin (Zithromax Z-Michael) 250 mg tabletIndications: Moderate persistent asthma with acute exacerbation,Chron ic sinusitis, unspecified location Take 2 tabs (500 mg) by mouth today, then 1 tab (250 mg) daily for 4 days. 6 tablet 01/16/2023 3 inhalational spacing device (Aerochamber Plus Z Stat) spacerIndications: Moderate persistent asthma with acute exacerbation 1 unit marking on U-100 syringe 2 (two) times a day 1 each 01/16/2023 4 documented in this encounter Progress Notes * Elyssa Sawyer NP - 01/16/2023 4:00 PM CST History of Present Illness: JUD CROCKER is a 32 y.o. year old female with asthma and allergic rhinitis who is seen for a non routine follow up visit. She was last seen in our clinic 09/20/22. She is a patient of Dr. García. She presented today for an allergy shot, but was feeling poorly and asked to be seen as a sick visit. She started allergy shots November 2022 and reports tolerating them well. However, around October-November, she has been experiencing sinus congestion, pain, pressure, tenderness, drainage that is g reen-yellow, and shortness of breath. She has completed a course of amoxicillin and cefdinir which did not help. She completed two courses of steroids which did not help. She is using Flonase 2 sprays twice daily and arianna 1-2 times daily, and montelukast nightly. She is using Breztri twice dailyand as needed albuterol a couple times a day. She has never had full PFT's. Her last chest x-ray was 11/30/22 which was normal. She has never had a sinus CT. She has never seen ENT. She had a brain MRI which showed The paranasal sinuses are normal except for a small mucous retention cyst within the left maxillary sinus. The visualized portions of the mastoids are unremarkable. She did sinus rinses years ago but reported she needed to go to the hospital because the fluid got trapped in her sinuses. 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 Review of Systems: As in the HPI. Medications: Current Outpatient Medications Medication Sig fyqfubonfgigp-gbhtvaa-emsrsdqt (EXCEDRIN MIGRAINE) 250-250-65 mg per tablet Take 1 tablet by mouth every 6 (six) hours as needed bumetanide (BUMEX) 1 mg tablet Take 1 tablet (1 mg total) by mouth daily cholecalciferol (VITAMIN D-3) 5,000 unit tablet Take 0.2 tablets (1,000 Units total) by mouth daily cyclobenzaprine (FLEXERIL) 10 mg tablet ergocalciferol, vitamin D2, 50 mcg (2,000 unit) tablet Take 2 tablets by mouth daily 5,000 fexofenadine (ARIANNA) 180 mg tablet Take 1 tablet (180 mg total) by mouth 2 (two) times a day FLUoxetine (PROzac) 40 mg capsule Take 1 capsule (40 mg total) by mouth daily fluticasone propionate (FLONASE) 50 mcg/actuation nasal spray Administer 2 sprays into each nostrildaily hydrocortisone 2.5 % ointment Apply topically 2 (two) times a day ibuprofen (ADVIL,MOTRIN) 800 mg tablet Take 1 tablet (800 mg total) by mouth 3 (three) times a day magnesium oxide 400 mg magnesium capsule Take 400 mg by mouth daily montelukast (SINGULAIR) 10 mg tablet TAKE 1 TABLET BY MOUTH EVERY DAY AT NIGHT nystatin 100,000 unit/mL suspension Take 5 mL (500,000 Units total) by mouth as needed omeprazole (PriLOSEC) 20 mg capsule Take 1 capsule (20 mg total) by mouth 2 (two) times a day before breakfast and dinner phentermine (ADIPEX-P) 37.5 mg tablet Take 1 tablet (37.5 mg total) by mouth daily before breakfast POTASSIUM CHLORIDE ORAL Take by mouth daily rimegepant (Nurtec ODT) tablet,disintegrating Take 1 tablet (75 mg total) by mouth as needed (take every other day PRN) triamcinolone (KENALOG) 0.1 % cream Apply topically 2 (two) times a day as needed for rash Do not use on the face or in the groin albuterol HFA (PROVENTIL HFA,VENTOLIN HFA,PROAIR HFA) 90 mcg/actuation inhaler Inhale 2 puffs 4 (four) times a day for 5 days Use only as needed after those 5 days azithromycin (Zithromax Z-Michael) 250 mg tablet Take 2 tabs (500 mg) by mouth today, then 1 tab (250 mg) daily for 4 days. famotidine (PEPCID) 40 mg tablet Take 1 tablet (40 mg total) by mouth daily inhalational spacing device (Aerochamber Plus Z Stat) spacer 1 unit marking on U-100 syringe 2 (two) times a day Allergies: Allergies Allergen Reactions Acetazolamide Swollen tongue [...] comments) SEIZURE ACTIVITY Oxycodone-Acetaminophen Nausea And Vomiting Physical Exam: Vitals BP 124/85 (BP Location: Left arm, Patient Position: Sitting) Pulse 73 Ht 170.2 cm (5' 7 ) Wt 116.1 kg (256 lb) SpO2 97% BMI 40.10 kg/m?? Gen: Well developed, well nourished female in [facility] HENT: Right Ear: Tympanic membrane normal. Left Ear: Tympanic membrane normal. Nose: moderate Congestion yellow rhinorrhea present. Sinus: sinus tenderness present. Mouth/Throat: Mucous membranes are moist. Pharynx: Oropharynx is clear without cobblestoning Eyes: Pupils: Pupils are equal, round, and reactive to light. Cardiovascular: Rate and Rhythm: Normal rate and regular rhythm. Pulmonary: Effort: Pulmonary effort is normal. Breath sounds: Normal breath sounds. No wheezing. Skin: General: Skin is warm and dry. Neurological: Mental Status: Alert and oriented to person, place, and time. Results: Testing from previous visits were reviewed in [facility]. Assessment and Plan: JUD CROCKER is a 32 y.o. year old female with chronic sinusitis, moderate persistent asthmawith acute exacerbation and allergic rhinitis. The patient's plan of care was discussed with Dr. Arnett who was present in clinic today and spoke with the patient face to face. Chronic sinusitis -Start Z-pack -Ordered sinus CT with stealth -Considered ENT referral, will decide with CT results Moderate persistent asthma with acute exacerbation -Continue Breztri -Ordered spacer to use with Breztri and discussed proper teqnique -Continue albuterol as needed every 4 hours -Start Z-Pack -PFT's ordered Allergic rhinitis -Hold allergy shots until symptoms improve -Decrease flonase to 1 spray BID (to help with nose bleeds and proper technique discussed) -Continue arianna 1-2 tablets daily -Continue Montelukast nightly Follow Up: Return for follow up pending CT results. Orders Placed This Encounter CT Sinus Stealth WO Contrast Standing Status: Future Standing Expiration Date: 01/17/2024 Order Specific Question: Is the patient ? Answer: Unknown Order Specific Question: Where should this order be performed? Answer: [facility] [[id number]] Pulmonary Function Test -[facility]- CAM-8D; Spirometry with Bronchodilator, DLCO; Spirometry Standing Status: Future Standing Expiration Date: 01/17/2024 Order Specific Question: PFT performed at: Answer: [facility] Adult PFT Lab- CAM-8D Order Specific Question: Procedure: Answer: Spirometry with Bronchodilator Order Specific Question: Procedure: Answer: DLCO Order Specific Question: DLCO: Answer: Spirometry inhalational spacing device (Aerochamber Plus Z Stat) spacer Si unit marking on U-100 syringe 2 (two) times a day Dispense: 1 each Refill: 0 azithromycin (Zithromax Z-Michael) 250 mg tablet Sig: Take 2 tabs (500 mg) by mouth today, then 1 tab (250 mg) daily for 4 days. Dispense: 6 tablet Refill: 0 My total encounter time on 01/16/2023 was 45 minutes which was spent in the activities documented inthe note. This includes time spent prior to the visit and after the visit in direct care of the patient. This time does not include time spent in any separately reportable services. Elyssa Sawyer NP EE TASTER documented in this encounter Plan of Treatment [...] documented as of this encounter Results * Pulmonary Function Test - (02/02/2023 8:54 AM COFFEE TASTER) [facility] FVC PRE 3.23 L [facility] FVC %PRE PRED 76 % [facility] FVC POST 3.38 L [facility] FVC %POST PRED 80 % [facility] FEV1 PRE 2.86 L [facility] FEV1 %PRE PRED 81 % [facility] FEV1 POST 3.11 L [facility] FEV1 %POST PRED 88 % [facility] FEV1/FVC PRE 88.6 % [facility] FEV1/FVC POST 92.0 % [facility] DLCO PRE 23.5 ml/min/mmH g [facility] DLCO %PRE PRED 99 % [facility] Anatomical Region Laterality Modality PFT 02/02/2023 8:35 AM COFFEE TASTER Impressions 02/02/2023 9:54 AM COFFEE TASTER There is a mild restrictive ventilatory defect. [...] and %HbO2 is age dependent. However, the [facility] Pulmonary Function Laboratory defines hypoxemia as a PO2 <55 or a %HbO2 <89. Narrative 02/02/2023 9:54 AM COFFEE TASTER PFT performed at:->[facility] Adult PFT Lab- [facility]-8D Procedure:->Spirometry with Bronchodilator Procedure:->DLCO DLCO:->Spirometry Pulmonary Function [...] (DLCO ADJ) is within normal limits. Elyssa Sawyer GRADER MARKER PFT ORDERABLES Final Result * CT Sinus Stealth WO Contrast (01/19/2023 8:24 AM COFFEE TASTER) Anatomical Region Laterality Modality Head N/A Computed Tomogra phy 01/19/2023 9:30 AM COFFEE TASTER Impressions 01/19/2023 11:20 AM COFFEE TASTER Left maxillary sinus mucus retention cyst and trace mucosal thickening in the sphenoid sinus. ?? Small leftward directed spur in the nasal septum. Dictated by: Shadi Fisher M.D. The radiology attending physician has personally reviewed this study, and had reviewed and/or edited this written report and agrees with it. Electronically signed by: Horace Beavers MD, PHD Narrative 01/19/2023 11:20 AM COFFEE TASTER EXAMINATION: CT of the paranasal sinuses without [...] Electronically signed by: Horace Beavers MD, PHD [facility]ED[facility] Final Result documented in this encounter Visit Diagnoses Diagnosis Moderate persistent asthma with acute exacerbation- Primary Chronic sinusitis, unspecified location Seasonal allergic rhinitis due to pollen Chronic sinusitis, unspecified location Moderate persistent asthma with acute exacerbation documented in this encounter Care Teams Chemical Processing Equipment Repairer Relationship Specialty Start Date End Date Daily Cruz MD PCP - General Family Medicine 03/04/21 documented as of this encounter
--- OUTSIDE RECORDS SUMMARY | 2024-02-21 19:35 | XMS_ITS | Encounter Summary ---
Author Organization [facility] Healthcare Address [address] [place] [address] Care Team Providers Care Laundry Presser Name Role Phone Daily Cruz MD Primary Care Provider [phone] Reason for Visit * Reason Comments Weight Gain Pt states she noted her weight went from 220.0lb to 235.0lb Edema Swelling noted in le gs and hands per pt. 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 Gender Identity Female 03/02/2020 4:27 PM SUPPLY CHAIN SPECIALIST Sexual Orientation Straight 07/10/2019 11 :13 PM CDT documented as of this encounter Last Filed Vital Signs Vital Sign Reading Time Taken Comments Blood Pressure - - Pulse - - Temperature - - Respiratory Rate - - Oxygen Saturation - - Inhaled Oxygen Concentration - - Weight 106.6 kg (235 lb) 11/22/2022 4:18 PM CDT Height 170.2 cm (5' 7 ) 11/22/2022 4:18 PM CDT Body Mass Index 36.81 11/22/2022 4:18 PM CDT documented in this encounter Ordered Prescriptions Prescription Sig Dispense Quantity Refills Last Filled Start Date End Date furosemide (LASIX) 20 mg tabletIndications: Swelling of lower extremity Take 1 tablet (20 mg total) by mouth daily 30 tablet 11/22/2022 11/25/2022 documented in this encounter Progress Notes * Danuta Kang, - 11/22/2022 4:30 PM CDT Images from the original note were not included. This was a telemedicine visit with Jud Leung alone which took place via real-time video connection. During the visit, I was located in the office and the patient was located at home in the state of [place]. My total encounter time on 11/22/2022 was 30 minutes which was spent in the activities documented in the note. This includes time spent prior to the visit and after the visit in direct care of the patient. This time does not include time spent in any separately reportable services. I have explained the option of participating in a telemedicine visit to the patient. After being given an opportunity to ask questions about and discuss this type of visit, the patient verbally consented to proceeding with the telemedicine visit. The patient understands that this service replaces an office visit and they may be billed and/or responsible for any applicable copayments. Chief Complaint: Chief Complaint Patient presents with Weight Gain Pt states she noted her weight went from 220.0lb to 235.0lb Edema Swelling noted in legs and hands per pt. HPI: Jud Leung is a 32 y.o. female who presents for an acute visit Patient presents to discuss swelling of bilateral lower extremities. She has chronic history of edema in the lower extremities. She was previously treated with Lasix and later treated with Bumex for symptoms. She stopped taking diuretics because she is wanting to get and did not want medications to interfere with fertility. However, since stopping diuretics she has had increased swellingin the legs and hands. She says she gained about 15 lb in the course of a couple weeks. Patient also complains of periods increasing in frequency. She says she has been having periods every 2 weeks. Patient also complains of headaches. She reports history of migraines and history of intracranial hypertension. She says sometimes her vision is blurry. Past Medical History: Diagnosis Date ADHD (attention deficit hyperactivity disorder) Anxiety Arthritis Asthma Brain concussion 2010, 2009 Chronic bronchitis (HCC) Depression Gastric reflux GERD (gastroesophageal reflux disease) PRN tums IIH (idiopathic intracranial hypertension) Pseudotumor cerebri. reports last spinal tap 2017. 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 Kidney stone 2019 Low back pain Lymphedema [...] activity, EEG negative SOB (shortness of breath) Current Outpatient Medications Medication qyrusoxlwpwkp-zxueqgh-prwoodxa (EXCEDRIN MIGRAINE) 250-250-65 mg per tablet albuterol HFA (PROVENTIL HFA,VENTOLIN HFA,PROAIR HFA) 90 mcg/actuation inhaler ALPRAZolam (XANAX) 0.5 mg tablet evatvruvdc-uqpceiwt-dzgziswmku (Breztri Aerosphere) 160-9-4.8 mcg/actuation HFA aerosol inhaler bumetanide (BUMEX) 1 mg tablet cyclobenzaprine (FLEXERIL) 10 mg tablet ergocalciferol (VITAMIN D) 50,000 unit capsule famotidine (PEPCID) 40 mg tablet fexofenadine (ARIANNA) 180 mg tablet FLUoxetine (PROzac) 40 mg capsule fluticasone propionate (FLONASE) 50 mcg/actuation nasal spray furosemide (LASIX) 20 mg tablet hydrocortisone 2.5 % ointment ibuprofen (ADVIL,MOTRIN) 800 mg tablet magnesium oxide 400 mg magnesium capsule montelukast (SINGULAIR) 10 mg tablet nystatin 100,000 unit/mL suspension phentermine (ADIPEX-P) 37.5 mg tablet POTASSIUM CHLORIDE ORAL rimegepant (Nurtec ODT) tablet,disintegrating sodium, potassium & mag sulfates (SUPREP BOWEL KIT) 17.5-3.13-1.6 gram recon soln triamcinolone (KENALOG) 0.1 % cream No current facility-administered medications for this visit. ROS A review of systems was performed including constitutional symptoms, cardiovascular, respiratory, gastrointestinal, genitourinary, musculoskeletal, neurological, psychiatric, endocrine, integumentary, hematological, eyes, ears, nose, mouth and throat. All systems negative except as per HPI. Ht 170.2 cm (5' 7 ) Wt 106.6 kg (235 lb) BMI 36.81 kg/m?? Body mass index is 36.81 kg/m??. Physical Exam: General: Normal appearance. Skin - No rashes and normal coloration on exposed skin. Head and Neck - NCAT. Eyes: Conjunctiva and sclera normal. Lungs: Symmetrical chest movements with breathing and w/o use of accessory muscles. Neuro: Awake and alert. Psych: Mood and affect are grossly normal. Assessment and Plan: Diagnosis Plan 1. Swelling of lower extremity Patient reports worsening of edema in lower extremities. She had been taking Lasix, but discontinue medication due to wanting to get . She reports weight gain of 15 lb over the past couple weeks. Recommend restarting Lasix at 20 mg daily. Patient has follow upin office on Monday for further evaluation. furosemide (LASIX) 20 mg tablet 2. Dysfunctional uterine bleeding Recommend follow-up with gynecology for symptoms. 3. Other migraine without status migrainosus, not intractable Recommend close monitoring of symptoms, if worsening follow-up. No orders of the defined types were placed in this encounter. Danuta A. [place], DO documented in this encounter Plan of Treatment [...] as of this encounter Visit Diagnoses Diagnosis Swelling of lower extremity- Primary Dysfunctional uterine bleeding Other disorder of menstruation and other abnormal bleeding from female genital tract Other migraine without status migrainosus, not intractable documented in this encounter Discontinued Medications Medication Sig Discontinue Reason Start Date End Da te furosemide (LASIX) 40 mg tablet Take 1 tablet (40 mg total) by mouth daily Alternate therapy 10/21/2021 11/22/2022 documented as of this encounter Care Teams Laundry Presser Relationship Specialty Start Date End Date Daily Cruz MD PCP - General Family Medicine 03/04/21 documented as of this encounter
--- OUTSIDE RECORDS SUMMARY | 2024-02-21 19:35 | XMS_ITS | Encounter Summary ---
Author Organization [facility] Healthcare Address [address] [place] [address] Care Team Providers Care Emergency Room Doctor Name Role Phone Daily Cruz MD Primary Care Provider [phone] Reason for Visit * Auth/Cert (Routine) Specialty Diagnoses / Procedures Referred By Matt burk Referred To Contact Diagnoses RLQ abdominal pain Blood in stool Gastroesophageal reflux disease without esophagitis Diarrhea, unspecified type RLQ abdominal pain [R10.31] Blood in stool [K92.1] Gastroesophageal reflux disease without esophagitis [K21.9] Diarrhea, unspecified type [R19.7] Procedures MI ESOPHAGOGASTRODUODENOSCOPY TRANSORAL DIAGNOSTIC MI COLONOSCOPY,DIAGNOSTIC ESOPHAGOGASTRODUODENOSCOPY COLONOSCOPY Referral ID Status Reason Start Date Expiration Date Visits Re quested Visits Authorized [id number] 1 1 Encounter Details Date Type Department Care Team (Latest Contact Info) Description 01/03/2023 8:00 AM [facility] - 01/03/2023 8:30 AM AUTOMATIC DOOR MECHANIC Surgery [facility] GI Lab [address] [place] [address] Jeffrey Fleming MD [address] [place] [address] [address] ESOPHAGOGASTRODUODENOSCOPY BIOPSY Surgery Details Date/Time Status Location OR Service Patient Class Case Class Case Type Trauma Case? 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 Gender Identity Female 03/02/2020 4:27 PM AUTOMATIC DOOR MECHANIC Sexual Orientation Straight 07/10/2019 11 :13 PM CDT documented as of this encounter Last Filed Vital Signs Vital Sign Reading Time Taken Comments Blood Pressure 97/56 01/03/2023 8:26 AM AUTOMATIC DOOR MECHANIC Pulse 82 01/03/2023 8:26 AM AUTOMATIC DOOR MECHANIC Temperature 36.4 ??C (97.5 ??F) 01/03/2023 8:26 AM CS T Respiratory Rate 16 01/03/2023 8:26 AM AUTOMATIC DOOR MECHANIC Oxygen Saturation 98% 01/03/2023 8:26 AM AUTOMATIC DOOR MECHANIC Inhaled Oxygen Concentration - - Weight - - Height - - Body Mass Index - - documented in this encounter Medications at Time of Discharge acetaminophen-asp irin-caffeine (EXCEDRIN MIGRAINE) 250-250-65 mg per tablet Take 1 tablet by mouth every 6 (six) hours as needed albuterol HFA (PROVENTIL HFA,VENTOLIN HFA,PROAIR HFA) 90 [...] has followed with neuro Irritability 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 MATIC DOOR MECHANIC documented in this encounter Procedure Notes * Jeffrey Fleming MD - 01/03/2023 7:58 AM CSTAssociated Order(s): EGD [facility] GI ENDOSCOPY Patient Name: Jud Crocker Procedure Date: 01/03/2023 7:58 AM Date of : 1990 Admit Type: Outpatient Age: 32 Gender: Female Attending MD: Jeffrey Fleming M.D. Room: [facility] ENDOSCOPY ROOM 06 Note Status: Finalized Procedure: [...] On: 01/03/2023 7:58 AM Recognized by the [place] [employer] for promoting quality in endoscopy MATIC DOOR MECHANIC * Jeffrey Fleming MD - 01/03/2023 7:58 AM CSTAssociated Order(s): COLONOSCOPY [facility] GI ENDOSCOPY Patient Name: Jud Crocker Procedure Date: 01/03/2023 7:58 AM Date of : 1990 Admit Type: Outpatient Age: 32 Gender: Female Attending MD: Jeffrey Fleming M.D. Room: [facility] ENDOSCOPY ROOM 06 Note Status: Finalized Procedure: Colonoscopy Indications: Chronic diarrhea, Rectal bleeding Referring MD: Daily Cruz M.D. Providers: Jeffrey Flmeing M.D. Medicines: Monitored Anesthesia Care Complications: No [...] scope was passed under direct vision. The [id number]-[id number] colonoscope was introduced through the anus and [...] On: 01/03/2023 7:58 AM Recognized by the [place] [employer] for promoting quality in endoscopy MATIC DOOR MECHANIC documented in this encounter Miscellaneous Notes * Result Encounter Note - Fadumo Gallardo CMA - 01/03/2023 9:32 AM AUTOMATIC DOOR MECHANIC Patient called with the findings and recommendations made by Dr. Fleming. The patient verbalized an understanding to all information given and stated. The patient had no further questions or concerns and the call was ended. The patient will follow up accordingly. MATIC DOOR MECHANIC * Result Encounter Note - Daily Cruz MD - 01/03/2023 9:32 AM AUTOMATIC DOOR MECHANIC Patient already seeing specialist for this * Result Encounter Note - Daily Cruz MD - 01/03/2023 9:32 AM AUTOMATIC DOOR MECHANIC Patient already seeing specialist for this * Perioperative Nursing Note - Stephenie Rivero RN - 01/03/2023 9:22 AM AUTOMATIC DOOR MECHANIC Waiting on ride to arrive. Ready for discharge since 0900. MATIC DOOR MECHANIC * Pre-Procedure Instructions - Dequan Ang RN - 12/30/2022 2:12 PM AUTOMATIC DOOR MECHANIC -No alcohol or smoking 12 hours before surgery -Sugarcreek teeth in the morning but don't swallow [...] her at discharge. Pt. Stated she understood. MATIC DOOR MECHANIC documented in this encounter Plan of Treatment [...] Comments SURGICAL PATHOLOGY Routine 01/03/2023 8:06 AM AUTOMATIC DOOR MECHANIC RLQ abdominal pain Blood in stool Gastroesophageal reflux disease without esophagitis Diarrhea, unspecified type EGD 01/03/2023 7:58 AM AUTOMATIC DOOR MECHANIC COLONOSCOPY 01/03/2023 7:58 AM AUTOMATIC DOOR MECHANIC COLON BIOPSY 01/03/2023 7:55 AM AUTOMATIC DOOR MECHANIC RLQ abdominal pain Blood in stool Gastroesophageal reflux disease without esophagitis Diarrhea, unspecified type ESOPHAGOGASTRODUODENOSCOPY BIOPSY 01/03/2023 7:55 AM AUTOMATIC DOOR MECHANIC RLQ abdominal pain Blood in stool Gastroesophageal reflux disease without esophagitis Diarrhea, unspecified type POCT HCG, URINE Routine 01/03/2023 7:42 AM AUTOMATIC DOOR MECHANIC documented in this encounter Results * Surgical pathology (01/03/2023 8:06 AM AUTOMATIC DOOR MECHANIC) Tissue (Duodenum, Biopsy) 01/03/2023 8:06 AM AUTOMATIC DOOR MECHANIC Tissue (Gastric/Stomach biopsy) 01/03/2023 8:07 AM AUTOMATIC DOOR MECHANIC Tissue (Esophageal biopsy) 01/03/2023 8:08 AM AUTOMATIC DOOR MECHANIC Tissue (Colon, Biopsy) 01/03/2023 8:13 AM AUTOMATIC DOOR MECHANIC Narrative PATHOLOGY [facility] - 01/04/2023 11:25 AM AUTOMATIC DOOR MECHANIC [facility] Department of Pathology [address] [place] [address] ?? Note to Patients: ??This report may [...] : ??1990 (Age: 32) Gender: ??F [facility] [address] [place] [address] [facility] #: [id number] Service: Gastro Location: Patient Type: [facility] OUTPATIENT ? Taken: 01/03/2023 Received: 01/03/2023 Accessioned: [...] submitted. ?? Labeled D1. Jar 0. ?? [facility]/03/2023 12:53 GALINA Chaudhary Microscopic slide review and interpretation for this case was performed at [facility], Department of Surgical Pathology, [address] [facility] [place], [place] [id number], ??[facility], [place] ??[address] ?? CLIA # [id number] us Jeffrey Fleming MD LAB PATHOLOGY ORDERABLES Final R esult PATHOLOGY [facility] * EGD (01/03/2023 7:58 AM AUTOMATIC DOOR MECHANIC) Anatomical Region Laterality Modality Other Narrative Procedure Note Jeffrey Fleming MD - 01/03/2023 7:58 AM CST [facility] GI ENDOSCOPY Patient Name: Jud Crocker Procedure Date: 01/03/2023 7:58 AM Date of : 1990 Admit Type: Outpatient Age: 32 Gender: Female Attending MD: Jeffrey Fleming M.D. Room: [facility] ENDOSCOPY ROOM 06 Note Status: Finalized Procedure: [...] On: 01/03/2023 7:58 AM Recognized by the [place] [employer] for promoting quality in endoscopy us Jeffrey Fleming MD ENDOSCOPY PROCEDURES Final Resul t * COLONOSCOPY (01/03/2023 7:58 AM AUTOMATIC DOOR MECHANIC) Anatomical Region Laterality Modality Other Narrative Procedure Note Jeffrey Fleming MD - 01/03/2023 7:58 AM CST [facility] GI ENDOSCOPY Patient Name: Jud Crocker Procedure Date: 01/03/2023 7:58 AM Date of : 1990 Admit Type: Outpatient Age: 32 Gender: Female Attending MD: Jeffrey Fleming M.D. Room: [facility] ENDOSCOPY ROOM 06 Note Status: Finalized Procedure: [...] The scope was passed under direct vision.The [id number]-[id number] colonoscope was introduced through theanus and advanced [...] On: 01/03/2023 7:58 AM Recognized by the [place] [employer] for promoting quality in endoscopy Jeffrey Fleming MD ENDOSCOPY PROCEDURES Final Resul t * POCT hCG, urine (01/03/2023 7:42 AM AUTOMATIC DOOR MECHANIC) HCG, ur, POC Negative Negative Lot Number [id number] QC Backgroud Clear Acceptable QC Control Line Acceptable Urine 01/03/2023 7:42 AM AUTOMATIC DOOR MECHANIC Doe Pope MD POINT OF CARE TEST ORDERABLES Final Result documented in this encounter Visit Diagnoses Diagnosis RLQ abdominal pain Abdominal pain, right lower quadrant Blood in stool Gastroesophageal reflux disease without esophagitis Esophageal reflux Diarrhea, unspecified type RLQ abdominal pain Abdominal pain, right lower [...] at 0730, Pre-Op Restarted 01/03/2023 8:24 AM AUTOMATIC DOOR MECHANIC Rate/Dose Verify 01/03/2023 7:55 AM AUTOMATIC DOOR MECHANIC 30 mL/h r New Bag 01/03/2023 7:42 AM AUTOMATIC DOOR MECHANIC 30 mL/hr 30 mL/hr lidocaine (XYLOCAINE) 10 mg/mL (1 %) injection 2-10 mg 2-10 mg (0.2-1 mL), other, Once as needed, pain with IV placement, Starting on Mon01/03/23 at 0649, For 1 dose, Pre-Op, Administer volume needed to infiltrate IV site. meclizine (ANTIVERT) tablet 25 mg 25 mg, oral, Once, On Mon01/03/23 at 0745, For 1 dose, Pre-Op Given 01/03/2023 7:19 AM AUTOMATIC DOOR MECHANIC 25 mg simethicone (MYLICON) 66.7 mg/mL oral drops As needed, Starting on Mon01/03/23 at 0811, Intra-Op Given 01/03/2023 8:11 AM AUTOMATIC DOOR MECHANIC 0.6 mL GI Tract sodium chloride 0.9% flush 0.5-20 mL 0.5-20 mL, intra-catheter, As needed, line care, Starting on Mon01/03/23 at 0649, Pre-Op, Flush volume based on line type and size. Flush before and after each use. documented in this encounter Discontinued Medications Medication Sig Discontinue Reason Start Date End Da te HYDROcodone-chlorphenira mine ER (TUSSIONEX PENNKINETIC) 2-1.6 mg/mL ER suspensionIndications:Ac [place] bronchitis due to other specified organisms Take [...] Recently Administered Medications Times are shown in AUTOMATIC DOOR MECHANIC. Scheduled Medication Order 01/01/2023 01/02/2023 01/03/2023 meclizine [...] Switch to gravity)0824 (Restarted - Provider: Tonie Moran CRNA)1333 (Due: Stopped) Lactated Ringer's (LR) infusion 125 [...] 1 01/03/2023 Lactated Ringer's (LR) infusion 1 lidocaine (XYLOCAINE) 10 mg/ mL (1 %) injection 2-10 mg 1 01/03/2023 naloxone (NARCAN) 0.4 mg/mL injection 0.04-0.4 mg 1 01/03/2023 sodium chloride 0.9% flush 0.5-20 mL 1 12/15 Diet Count Last Ordered Date First Orde red Date ADULT DISCHARGE DIET 1 01/03/2023 Nursing Count Last Ordered Date First Orde red Date DISCHARGE ACTIVITY 1 01/03/2023 DISCHARGE CALL PROVIDER 5 01/03/2023 Discharge Count Last Ordered Date First Orde red Date DISCHARGE PATIENT 1 01/03/2023 documented in this encounter Care Teams Emergency Room Doctor Relationship Specialty Start Date End Date Daily Cruz MD PCP - General Family Medicine 03/04/21 documented as of this encounter
--- OUTSIDE RECORDS SUMMARY | 2024-02-21 19:35 | XMS_ITS | Encounter Summary ---
Author Organization [facility] Healthcare Address [address] [place] [address] Care Team Providers Care Administrator Health Care Facility Name Role Phone Daily Cruz MD Primary Care Provider [phone] [phone] Reason for Referral * Consultation (Routine) - Closed Specialty Diagnoses / Procedures Referred By Contac t Referred To Contact Ophthalmology Diagnoses Diplopia Daily Cruz MD Phone: tel: fax: Leisa Serrano MD [address] [address] Phone: tel: fax: Referral ID Status Reason Start Date Expiration Date V isits Requested Visits Authorized [id number] Closed Specialty Services Required 01/07/2023 02/06/2024 12 12 Question Answer Please select the performing region: External Order [171] To provider: LEISA SERRANO [[id number]] # of visits: 1 K PREPARER Reason for Visit * Reason Comments Cough Productive and painf ul cough2 weeks Sore Throat Chest Pain From coughing, breat zuleyka can be painful Fever Off and onNegative c ovid last week Encounter Details Date Type Department Care Team (Late st Contact Info) Description 12/12/2022 3:15 PM CDT Office Visit [facility] Family Medicine at [place] [address] [place] [address] [phone] Daily Cruz MD [address] [place] [address] Acute bronchitis due to other specified organisms (Primary Dx); Diplopia; Anxiety and depression Social History Tobacco Use Types Packs/Day Years [...] on file Legal Sex Female 3:37 PM STOCK PREPARER Gender Identity Female 03/02/2020 4:27 PM STOCK PREPARER Sexual Orientation Straight 07/10/2019 11 :13 PM CDT documented as of this encounter Last Filed Vital Signs Vital Sign Reading Time Taken Comments Blood Pressure 110/60 12/12/2022 3:29 PM CDT Pulse 92 12/12/2022 3:29 PM CDT Temperature 36.4 ??C (97.6 ??F) 12/12/2022 3:29 PM CD T Respiratory Rate 20 12/12/2022 3:29 PM CDT Oxygen Saturation 97% 12/12/2022 3:29 PM CDT Inhaled Oxygen Concentration - - Weight 112.5 kg (248 lb) 12/12/2022 3:29 PM CDT Height 170.2 cm (5' 7 ) 12/12/2022 3:29 PM CDT Body Mass Index 38.84 12/12/2022 3:29 PM CDT documented in this encounter Patient Instructions * Attachments The following attachments cannot be sent through Care Everywhere. * Diplopia (AfterCare(R) Instructions(ER/ED)) (Ku[place]i) documented in this encounter Ordered Prescriptions Prescription Sig Dispense Quantity Refills Last Filled Start Date End Date HYDROcodone-chlorp heniramine ER (TUSSIONEX PENNKINETIC) 2-1.6 mg/mL ER suspensionIndicati ons:Acute bronchitis due to other specified organisms Take 5 mL by mouth every 12 (twelve) hours as needed for cough 100 mL 12/12/2022 3 methylPREDNISolone (MEDROL DOSEPACK) 4 mg DosepackIndication s:Acute bronchitis due to other specified organisms Take as directed on package. 21 tablet 12/12/2022 3 cefdinir (OMNICEF) 300 mg capsuleIndications :Acute bronchitis due to other specified organisms Take 1 capsule (300 mg total) by mouth 2 (two) times a day for 10 days 20 capsule 12/12/2022 3 FLUoxetine (PROzac) 40 mg capsuleIndications :Anxiety and depression Take 1 capsule (40 mg total) by mouth daily 30 capsule 5 12/12/2022 4 documented in this encounter Progress Notes * Daily Cruz MD - 12/12/2022 3:15 PM CDT Images from the original note were not included. Patient ID: JUD CROCKER is a 32 y.o. female. Visit Date: 12/12/2022 Chief Complaint diplopia HPI C/o recurrent double vision H/o anxiety/depression - tolerating prozac. Would like to increase dosage Cough This is a new problem. The current episode started in the past 7 days. The problem has been gradually worsening. The cough is Productive of sputum. Pertinent negatives include no chest pain, ear pain, eye redness, fever, headaches, rhinorrhea or shortness of breath. Current Outpatient Medications: dfmgcafvvltsl-kowvvcl-zprzatlk (EXCEDRIN MIGRAINE) 250-250-65 mg per tablet, Take [...] total) by mouth daily, Disp: , Rfl: ergocalciferol, vitamin D2, 50 mcg (2,000 unit) tablet, Take 2 tablets by mouth daily 5,000, Disp: , Rfl: famotidine (PEPCID) 40 mg tablet, Take 1 tablet (40 mg total) by mouth daily, Disp: 30 tablet, Rfl:0 fexofenadine (ARIANNA) 180 mg tablet, Take 1 tablet (180 mg total) by mouth 2 (two) times a day, Disp: 180 tablet, Rfl: 3 hydrocortisone 2.5 % ointment, Apply topically 2 [...] a day as needed for rash Do notuse on the face or in the groin, Disp: 454 g, Rfl: 2 bumetanide (BUMEX) 1 mg tablet, Take 1 tablet (1 mg total) by mouth daily, Disp: , Rfl: cyclobenzaprine (FLEXERIL) 10 mg tablet, , Disp: , Rfl: FLUoxetine (PROzac) 40 mg capsule, Take 1 capsule (40 mg total) by mouth daily, Disp: 30 capsule, Rfl: 5 fluticasone propionate (FLONASE) 50 mcg/actuation nasal spray, Administer 2 sprays into each nostril daily, Disp: 48 mL, Rfl: 1 omeprazole (PriLOSEC) 20 mg capsule, Take 1 capsule (20 mg total) by mouth 2 (two) times a day before breakfast and dinner, Disp: 60 capsule, Rfl: 3 phentermine (ADIPEX-P) 37.5 mg tablet, Take 1 [...] rhinorrhea. Eyes: Negative for pain and redness. Diplopia Respiratory: Negative for cough and shortness of breath. Cardiovascular: Negative for chest pain and palpitations. Endocrine: Negative for cold intolerance. Genitourinary: Negative for dysuria and frequency. Musculoskeletal: Negative for arthralgias and back pain. Neurological: Negative for dizziness and headaches. Hematological: Does not bruise/bleed easily. Psychiatric/Behavioral: Negative for behavioral problems and confusion. The patient is nervous/anxious. BP 110/60 (BP Location: Left arm, Patient Position: Sitting) Pulse 92 Temp 36.4 ??C (97.6 ??F) (Temporal) Resp 20 Ht 170.2 cm (5' 7 ) Wt 112.5 kg (248 lb) SpO2 97% BMI 38.84 kg/m?? Bodymass index is 38.84 kg/m??. Physical Exam Constitutional: Appearance: She is well-developed. HENT: Head: Normocephalic and atraumatic. Cardiovascular: Rate and Rhythm: Normal rate and regular rhythm. Heart sounds: Normal heart sounds. Pulmonary: Effort: Pulmonary effort is normal. Breath sounds: Normal breath sounds. Abdominal: General: Bowel sounds are normal. Palpations: Abdomen is soft. Tenderness: There is no abdominal tenderness. Musculoskeletal: General: Normal range of motion. Cervical back: Normal range of motion and neck supple. Skin: General: Skin is warm and dry. Neurological: Mental Status: She is alert and oriented to person, place, and time. Cranial Nerves: No cranial nerve deficit. Psychiatric: Behavior: Behavior normal. Diagnoses and all orders for this visit: Acute bronchitis due to other specified organisms (Primary) Assessment & Plan: Persistent symptoms Order cefdinir Orders: - cefdinir (OMNICEF) 300 mg capsule; Take 1 capsule (300 mg total) by mouth 2 (two) times a day for10 days Diplopia Assessment & Plan: Persistent Refer to neuroopthalmology Orders: - Ambulatory referral to Ophthalmology; Future Anxiety and depression Comments: Uncontrolled. Increase Prozac to 40mg daily. List of therapist and psychiatrist given to patient. Follow up in 1 month. Assessment & Plan: Better Cont prozac to 40mg Orders: - FLUoxetine (PROzac) 40 mg capsule; Take 1 capsule (40 mg total) by mouth daily Daily Cruz MD K PREPARER documented in this encounter Miscellaneous Notes * Assessment & Plan Note - Daily Cruz MD - 01/07/2023 11:23 AM STOCK PREPARER Associated Problem(s): Diplopia Persistent Refer to neuroopthalmology K PREPARER * Assessment & Plan Note - Daily Cruz MD - 01/07/2023 11:22 AM STOCK PREPARER Associated Problem(s): Acute bronchitis due to other specified organisms Persistent symptoms Order cefdinir K PREPARER * Assessment & Plan Note - Daily Cruz MD - 01/07/2023 11:19 AM STOCK PREPARER Associated Problem(s): Anxiety and depression Better Cont prozac to 40mg K PREPARER documented in this encounter Plan of Treatment Scheduled Referrals Name Type Priority Associated Diagnoses Order Schedule Ambulatory referral to Ophthalmology Outpatient Referral Routine Diplopia Expected: 01/07/2023 (Approximate), Expires: 01/08/2024 documented as of this encounter Goals Goal [...] of this encounter Visit Diagnoses Diagnosis Acute bronchitis due to other specified organisms- Primary Diplopia Anxiety and depression documented in this encounter Discontinued Medications Medication Sig Discontinue Reason Start Date End Da te FLUoxetine (PROzac) 40 mg capsuleIndications:Anxie ty and depression Take 1 capsule (40 mg total) by mouth daily Reorder 08/30/2022 12/12/2022 documented as of this encounter Historical Medications * This list may reflect changes made after this encounter. ergocalciferol, vitamin D2, 50 mcg (2,000 unit) tablet Take 2 tablets by mouth daily 5,000 02/28/2023 added in this encounter Care Teams Administrator Health Care Facility Relationship Specialty Start Date End Date Daily Cruz MD PCP - General Family Medicine 03/04/21 documented as of this encounter
--- OUTSIDE RECORDS SUMMARY | 2024-02-21 19:35 | XMS_ITS | Encounter Summary ---
Author Organization [facility] Healthcare Address [address] [place] [address] Care Team Providers Care In Class Special Education Teacher Name Role Phone Daily Cruz MD Primary Care Provider [phone] [phone] Reason for Visit * Reason Onset Date Comments EGD/CSC 11/18/2022 Encounter Details Date Type Department Care Team (Late st Contact Info) Description 11/18/2022 Telephone [facility] Gastroenterology at [address] [phone] Jeffrey Fleming MD [address] [place] [phone] EGD/CSC Social History Tobacco Use Types Packs/Day Years [...] on file Legal Sex Female 3:37 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 documented in this encounter Plan of Treatment [...] on filedocumented in this encounter Care Teams In Class Special Education Teacher Relationship Specialty Start Date End Date Daily Cruz MD PCP - General Family Medicine 03/04/21 documented as of this encounter
--- OUTSIDE RECORDS SUMMARY | 2024-02-21 19:35 | XMS_ITS | Encounter Summary ---
Author Organization [facility] Address [address] [facility] [address] [place] [address] Care Team Providers Care Restaurant Front Manager Name Role Phone Daily Cruz MD Primary Care Provider [phone] [phone] Encounter Details Date Type Department Care Team (Late st Contact Info) Description 10/27/2022 Telephone [facility] Gastroenterology at [address] [place] [address] Jeffrey Fleming MD [address] [place] [address] [address] [place] [address] Social History Tobacco Use Types [...] on file Legal Sex Female 3:37 PM NEUROSCIENCE DIRECTOR NA Gender Identity Female 03/02/2020 4:27 PM NEUROSCIENCE DIRECTOR NA Sexual Orientation Straight 07/10/2019 11 :13 PM CDT documented as of this encounter Miscellaneous Notes * Telephone Encounter - Jenna Squires - 10/27/2022 12:33 PM CDT Pt has cancelled her f/u appt and needs to reschedule her procedure. Please call her at [phone]. documented in this encounter Plan of Treatment [...] on filedocumented in this encounter Care Teams Restaurant Front Manager Relationship Specialty Start Date End Date Daily Cruz MD PCP - General Family Medicine 03/04/21 documented as of this encounter
--- OUTSIDE RECORDS SUMMARY | 2024-02-21 19:36 | XMS_ITS | Encounter Summary ---
Author Organization [facility] Address [address] [facility] [address] [place] [address] Care Team Providers Care Undercutter Name Role Phone Daily Cruz MD Primary Care Provider [phone] [phone] Encounter Details Date Type Department Care Team (Late st Contact Info) Description 07/15/2022 Orders Only [facility] CONVENIENT CARE AT [place] [address] [place] [id number] Abida Moffett MA Subacute cough (Primary Dx) Social History Tobacco Use Types Packs/Day Years Used Date Smoking Tobacco: Never Smokeless Tobacco: Never Alcohol Use Standard Drinks/Week Comments Not Currently 0 (1 standard drink = 0.6 oz pure alcohol) Maybe a drink every few months AUDIT-C Answer Date Recorded Q1: How often do you have a drink containing alcohol? Never 07/13/2022 Q2: How many drinks containi ng alcohol do you have on a typical day when you are drinking? Patient does not drink Q3: How often do you have si x or more drinks on one occasion? Never 07/13/2022 PHQ-2 Answer Date Recorded PHQ-2 Total Score (If total score is 3 or more points, staff should administer the PHQ-9) 0 06/16/2021 Comments No Sex and Gender Information Value Date Recorded Sex Assigned at Not on file Legal Sex Female 3:37 PM HYDRO PNEUMATIC TESTER Gender Identity Female 03/02/2020 4:27 PM HYDRO PNEUMATIC TESTER Sexual Orientation Straight 07/10/2019 11 :13 [...] as of this encounter Visit Diagnoses Diagnosis Subacute cough- Primary documented in this encounter Additional Health Concerns Infection Onset Date Last Indicated Resolved Time COVID: Suspected 07/15/2022 07/15/2022 07/15/2022 6:49 PM CDT documented as of this encounter Care Teams Undercutter Relationship Specialty Start Date End Date Daily Cruz MD PCP - General Family Medicine 03/04/21 documented as of this encounter
--- OUTSIDE RECORDS SUMMARY | 2024-02-21 19:36 | XMS_ITS | Encounter Summary ---
Author Organization [facility] Address [address] [facility] [address] [place] [address] Care Team Providers Care Tractor Sweeper Operator Name Role Phone Daily Cruz MD Primary Care Provider [phone] [phone] Reason for Visit * Reason Comments Follow-up 4 weeks, blood press ure medication/weight management Asthma Encounter Details Date Type Department Care Team (Late st Contact Info) Description 07/20/2022 3:45 PM CDT Office Visit [facility] Family Medicine at [place] [address] [facility] [address] [place] [address] Daily Cruz MD [address] [place] [address] [address] [place] [address] Morbid obesity with BMI of 40.0-44.9, adult (HCC) (Primary Dx); Anxiety and depression; Hypertension, essential Social History Tobacco Use Types Packs/Day Years Used Date Smoking Tobacco: Never Smokeless Tobacco: Never Alcohol Use Standard Drinks/Week Comments Not Currently 0 (1 standard drink = 0.6 oz pure alcohol) Maybe a drink every few months AUDIT-C Answer Date Recorded Q1: How often do you have a drink containing alcohol? Never 07/20/2022 Q2: How many drinks containi ng alcohol do you have on a typical day when you are drinking? Patient does not drink Q3: How often do you have si x or more drinks on one occasion? Never 07/20/2022 PHQ-2 Answer Date Recorded PHQ-2 Total Score (If total score is 3 or more points, staff should administer the PHQ-9) 0 07/20/2022 Comments No Sex and Gender Information Value Date Recorded Sex Assigned at Not on file Legal Sex Female 3:37 PM PSYCHOLOGICAL ANTHROPOLOGIST Gender Identity Female 03/02/2020 4:27 PM PSYCHOLOGICAL ANTHROPOLOGIST Sexual Orientation Straight 07/10/2019 11 :13 PM CDT documented as of this encounter Last Filed Vital Signs Vital Sign Reading Time Taken Comments Blood Pressure 114/76 07/20/2022 3:40 PM CDT Pulse 72 07/20/2022 3:40 PM CDT Temperature 36.4 ??C (97.6 ??F) 07/20/2022 3:40 PM CD T Respiratory Rate 18 07/20/2022 3:40 PM CDT Oxygen Saturation 98% 07/20/2022 3:40 PM CDT Inhaled Oxygen Concentration - - Weight 120.9 kg (266 lb 9.6 oz) 07/20/2022 3:40 PM CDT Height 170.2 cm (5' 7 ) 07/20/2022 3:40 PM CDT Body Mass Index 41.76 07/20/2022 3:40 PM CDT documented in this encounter Patient Instructions * Attachments The following attachments cannot be sent through Care Everywhere. * Phentermine (By mouth) (New Zealander) documented in this encounter Ordered Prescriptions Prescription Sig Dispense Quantity Refills Last Filled Start Date End Date phentermine (ADIPEX-P) 37.5 mg tabletIndications: Morbid obesity with BMI of 40.0-44.9, adult (HCC) Take 1/2 tab by mouth every morning 15 tablet 07/20/2022 3 FLUoxetine (PROzac) 20 mg capsuleIndications :Anxiety and depression Take 1 capsule (20 mg total) by mouth daily 30 capsule 07/20/2022 3 documented in this encounter Progress Notes * Daily Cruz MD - 07/20/2022 3:45 PM CDT Images from the original note were not included. Patient ID: Jud Leung is a 31 y.o. female. Visit Date: 07/20/2022 Chief Complaint Anxiety/depression HPI Patient would like to try Phentermine for weight loss H/o anxiety/depression - still not controlled Treatments failed: zoloft, celexa, wellbutrin, effexor, cymbalta, vraylar Hypertension This is a chronic problem. The current episode started more than 1 year ago. The problem is controlled (Tolerting losartan). Pertinent negatives include no chest pain, headaches, palpitations or shortness of breath. Current Outpatient Medications: kbgzscqjcczvd-qgkpgoc-glvzxcnk (EXCEDRIN MIGRAINE) 250-250-65 mg per tablet, Take 1 tablet by mouthevery 6 (six) hours as needed, Disp: , Rfl: ALPRAZolam (XANAX) 0.5 mg tablet, TAKE 1 TABLET BY MOUTH EVERY DAY NEEDED FOR ANXIETY, Disp: 30 tablet, Rfl: 0 atogepant (Qulipta) 60 mg tablet, Take 60 mg by mouth daily (Patient not taking: Reported on 07/21/2022), Disp: 30 tablet, Rfl: 2 dnsxpiwijx-xvjmctms-rdwdpupkry (Breztri Aerosphere) 160-9-4.8 mcg/actuation HFA aerosol inhaler, INHALE 2 PUFFS TWICE A DAY, Disp: 10.7 g, Rfl: 1 bumetanide (BUMEX) 1 mg tablet, TAKE 1 TABLET BY MOUTH TWICE A DAY, Disp: 60 tablet, Rfl: 5 ergocalciferol (VITAMIN D) 50,000 unit capsule, Take 1 capsule (50,000 Units total) by mouth once aweek, Disp: 4 capsule, Rfl: 5 fexofenadine (ARIANNA) 180 mg tablet, Take 1 [...] a day, Disp: 90 tablet, Rfl: 0 losartan (COZAAR) 50 mg tablet, TAKE 1 TABLET BY MOUTH EVERY DAY (Patient not taking: Reported on 07/21/2022), Disp: 30 tablet, Rfl: 2 lumateperone (Caplyta) 21 mg capsule, Take 21 mg by mouth daily (Patient not taking: Reported on 07/21/2022), Disp: 30 capsule, Rfl: 2 magnesium oxide 400 mg magnesium capsule, Take 400 mg by mouth daily, Disp: , Rfl: montelukast (SINGULAIR) 10 mg tablet, TAKE 1 TABLET BY MOUTH EVERY DAY AT NIGHT, Disp: 90 tablet, Rfl: 1 POTASSIUM CHLORIDE ORAL, Take by mouth daily, [...] 5 days, Disp: 6.7 each, Rfl: 1 famotidine (PEPCID) 40 mg tablet, Take 1 tablet (40 mg total) by mouth daily, Disp: 30 tablet, Rfl:0 FLUoxetine (PROzac) 20 mg capsule, Take 1 capsule (20 mg total) by mouth daily, Disp: 30 capsule, Rfl: 0 levonorgestreL (KYLEENA) IUD, 1 each by intrauterine route once (Patient not taking: Reported on 07/20/2022), Disp: , Rfl: oxyCODONE (ROXICODONE) 5 mg immediate release tablet, Take 1 tablet (5 mg total) by mouth every 4 (four) hours as needed (Patient not taking: Reported on 07/20/2022), Disp: , Rfl: phentermine (ADIPEX-P) 37.5 mg tablet, Take 1/2 tab by mouth every morning, Disp: 15 tablet, Rfl: 0 Review of Systems Constitutional: Negative for fatigue and fever. HENT: Negative for congestion, ear pain, nosebleeds and rhinorrhea. Eyes: Negative for pain and redness. Respiratory: Negative for cough and shortness of breath. Cardiovascular: Negative for chest pain and palpitations. Htn Gastrointestinal: Negative for abdominal pain and diarrhea. Endocrine: Negative for cold intolerance. Genitourinary: Negative for dysuria and frequency. Musculoskeletal: Negative for arthralgias and back pain. Neurological: Negative for dizziness and headaches. Hematological: Does not bruise/bleed easily. Psychiatric/Behavioral: Negative for behavioral problems and confusion. The patient is nervous/anxious. Depression BP 114/76 Pulse 72 Temp 36.4 ??C (97.6 ??F) (Temporal) Resp 18 Ht 170.2 cm (5' 7 ) Wt 120.9 kg (266 lb 9.6 oz) SpO2 98% BMI 41.76 kg/m?? Body mass index is 41.76 kg/m??. Physical Exam Constitutional: Appearance: She is well-developed. She is obese. HENT: Head: Normocephalic and atraumatic. Cardiovascular: Rate [...] Diagnoses and all orders for this visit: Morbid obesity with BMI of 40.0-44.9, adult (HCC) (Primary) Assessment & Plan: BMI Follow-up includes: nutrition counseling and exercise counseling Start Phentermine. Orders: - phentermine (ADIPEX-P) 37.5 mg tablet; Take 1/2 tab by mouth every morning Anxiety and depression Assessment & Plan: Chronic Not controlled Start prozac Treatments failed: zoloft, celexa, wellbutrin, effexor, cymbalta, vraylar Orders: - FLUoxetine (PROzac) 20 mg capsule; Take 1 capsule (20 mg total) by mouth daily Hypertension, essential Assessment & Plan: Chronic Stable Cont losartan Goal: SBP<140, DBP<90 Daily Cruz MD documented in this encounter Miscellaneous Notes * Assessment & Plan Note - Daily Cruz MD - 07/28/2022 7:11 PM CDT Associated Problem(s): Anxiety and depression Chronic Not controlled Start prozac Treatments failed: zoloft, celexa, wellbutrin, effexor, cymbalta, vraylar * Assessment & Plan Note - Daily Cruz MD - 07/28/2022 7:09 PM CDT Associated Problem(s): Hypertension, essential (Resolved 02/22/2023) Chronic Stable Cont losartan Goal: SBP<140, DBP<90 * Assessment & Plan Note - Daily Cruz MD - 07/28/2022 6:59 PM CDT Associated Problem(s): Class 3 severe obesity due to excess calories without serious comorbidity with body mass index (BMI) of 40.0 to 44.9 in adult (HCC) BMI Follow-up includes: nutrition counseling and exercise counseling Start Phentermine. documented in this encounter Plan of Treatment [...] as of this encounter Visit Diagnoses Diagnosis Morbid obesity with BMI of 40.0-44.9, adult (HCC)- Primary Anxiety and depression Hypertension, essential Unspecified essential hypertension documented in this encounter Care Teams Tractor Sweeper Operator Relationship Specialty Start Date End Date Daily Cruz MD PCP - General Family Medicine 03/04/21 documented as of this encounter
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
--- OUTSIDE RECORDS SUMMARY | 2024-02-21 19:36 | XMS_ITS | Encounter Summary ---
Author Organization [facility] Address [address] [place] [address] Care Team Providers Care Cryolite Recovery Operator Name Role Phone Daily Cruz MD Primary Care Provider [phone] [phone] Encounter Details Date Type Department Care Team (Late st Contact Info) Description 06/11/2022 10:15 AM CDT Lab [facility] [address] [place] [id number] Low serum aspartate aminotransferase (AST); Annual physical exam Social History Tobacco Use Types Packs/Day Years Used Date Smoking Tobacco: Never Smokeless Tobacco: Never Alcohol Use Standard Drinks/Week Comments Not Currently 0 (1 standard drink = 0.6 oz pure alcohol) Maybe a drink every few months AUDIT-C Answer Date Recorded Q1: How often do you have a drink containing alcohol? Never 06/13/2022 Q2: How many drinks containi ng alcohol do you have on a typical day when you are drinking? Patient does not drink Q3: How often do you have si x or more drinks on one occasion? 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 73 m2 ANGELICA VERDUGO [...] interpretive data was last reviewed 2020. Blood 06/11/2022 10:1 9 AM CDT 06/11/2022 10:39 AM CDT us Daily Cruz MD LAB BLOOD ORDERABLES Karen l Result Performing Organization Address [facility] [[email or web address]] Co de Phone Number [address] [place] [address] * TSH reflex to free T4 (06/11/2022 10:19 AM CDT) TSH 3.57 0.30 - 4.20 mcIUnit/mL ANGELICA Blood 06/11/2022 10:1 9 AM CDT 06/11/2022 10:39 AM CDT Alecia Shaver NP LAB BLOOD ORDERABLES Final Res ult Performing Organization Address [facility] [[email or web address]] Co de Phone Number [address] [place] [address] * Lipid panel (06/11/2022 10:19 AM CDT) Cholesterol 170 30 - 199 mg/dL ANGELICA Comment: Interpretive Data Ages < or = 19 years ??Acceptable: ? <170 mg/dL ??Borderline high: ??170-199 mg/dL ??High: ? >or= 200 mg/dL Ages > or = 20 years ??Desirable: ?<200 mg/dL ??Borderline high: ??200-239 mg/dL ??High: ? >or= 240 mg/dL Literature References: 1. Expert Panel on Integrated Guidelines for Cardiovascular Health and Risk Reduction in Children and Adolescents. Pediatrics 2011;128:S213 2. NCEP Expert Panel. Circulation 2004;110:227 Current Interpretive Data was last revised on 2017. Triglycerides 41 <=149 mg/dL ANGELICA Comment: Interpretive Data Ages < or = 9 years ??Acceptable: ? <75 mg/dL ??Borderline high: ??75-99 mg/dL ??High: ? >or= 100 mg/dL Ages 10 to 20 years ??Acceptable: ? <90 mg/dL ??Borderline high: ??90-129 mg/dL ??High: ? >or= 130 mg/dL Ages > or = 20 years ??Desirable: ?<150 mg/dL ??Borderline high: ??150-199 mg/dL ??High: ? 200-499 mg/dL ?Very high: ?? >or= 499 mg/dL Literature References: 1. Expert Panel on Integrated Guidelines for Cardiovascular Health and Risk Reduction in Children and Adolescents. Pediatrics 2011;128:S213 2. NCEP Expert Panel. Circulation 2004;110:227 Current Interpretive Data was last revised on 2017. HDL 65 >=40 mg/dL ANGELICA Comment: Interpretive Data Ages < or = 19 years ??Acceptable: ? >45 mg/dL ??Borderline low: ?? 40-45 mg/dL ??Low: ? <40 mg/dL Ages > or = 20 years ??Desirable: ?>or= 60 mg/dL ??Low: ? <40 mg/dL Literature References: 1. Expert Panel on Integrated Guidelines for Cardiovascular Health and Risk Reduction in Children and Adolescents. Pediatrics 2011;128:S213 2. NCEP Expert Panel. Circulation 2004;110:227 Current Interpretive Data was last revised on 2017. LDL, calculated 97 <=129 mg/dL ANGELICA Comment: Interpretive Data Ages < or = 19 years ??Acceptable: ? <110 mg/dL ??Borderline high: ??110-129 mg/dL ??High: ?>or= 130 mg/dL Ages > or = 20 years ??Optimal: ? <100 mg/dL ??Near optimal: ?100-129 mg/dL ??Borderline high: ?? 130-159 mg/dL ??High: ?>160 mg/dL Literature References: 1. Expert Panel on Integrated Guidelines for Cardiovascular Health and Risk Reduction in Children and Adolescents. Pediatrics 2011;128:S213 2. NCEP Expert Panel. Circulation 2004;110:227 Current Interpretive Data was last revised on 2017. Non-HDL Cholesterol 105 mg/dL ANGELICA VERDUGO Comment: Interpretive Data Ages < or = 19 years ??Acceptable: ?<120 mg/dL ??Borderline high: ??120-144 mg/dL ??High: ?>145 mg/dL Ages > or = 20 years ??When triglycerides are >200 mg/dL, Non-HDL cholesterol is a secondary target of ? therapy with treatment goals that are 30 mg/dL greater than the LDL cholesterol target. ? Literature References: 1. Expert Panel on Integrated Guidelines for Cardiovascular Health and Risk Reduction in Children and Adolescents. Pediatrics 2011;128:S213 2. NCEP Expert Panel. Circulation 2004;110:227 Current Interpretive Data was last revised on 2017. Chol/HDL ratio 3 ANGELICA VERDUGO Blood 06/11/2022 10:1 9 AM CDT 06/11/2022 10:39 AM CDT us Alecia Shaver NP LAB BLOOD ORDERABLES Final Res ult ANGELICA VERDUGO [address] [facility] [place] [address] * Basic metabolic panel (06/11/2022 10:19 AM CDT) Sodium 139 135 - 145 mmol/L ANGELICA Potassium, pl 4.1 3.3 - 4.9 mmol/L [facility] Chloride 102 97 - 110 mmol/L [facility] CO2 28 22 - 32 mmol/L [facility] Anion gap 9 2 - 15 mmol/L [facility] BUN 15 8 - 25 mg/dL [facility] Creatinine 0.70 0.60 - 1.10 mg/dL [facility] Glucose 94 70 - 199 mg/dL [facility] Comment: Interpretive Data Fasting glucose >/= 126 [...] interpretive data was last revised 2022. Calcium 9.3 8.5 - 10.3 mg/dL [facility] Blood 06/11/2022 10:1 9 AM CDT 06/11/2022 10:39 AM CDT us Daily Cruz MD LAB BLOOD ORDERABLES Karen josi Result ANGELICA [address] [facility] Department [place] [address] documented in this encounter Visit Diagnoses Diagnosis Low serum aspartate aminotransferase (AST) Annual physical exam Routine general medical examination at a health care facility documented in this encounter Care Teams Cryolite Recovery Operator Relationship Specialty Start Date End Date Daily Cruz MD PCP - General Family Medicine 03/04/21 documented as of this encounter
--- OUTSIDE RECORDS SUMMARY | 2024-02-21 19:36 | XMS_ITS | Encounter Summary ---
Author Organization [facility] Address [address] [facility] [address] [place] [address] Care Team Providers Care Senior Telecommunications Consultant Name Role Phone Daily Cruz MD Primary Care Provider [phone] Reason for Visit * Reason Onset Date Comments GALINA wesley 07/21/2022 Encounter Details Date Type Department Care Team (Late st Contact Info) Description 07/21/2022 Telephone [facility] Family Medicine at [place] [address] [facility] [address] [place] [address] Daily Cruz MD [address] [place] [address] [address] [place] [address] GALINA wesley Social History Tobacco Use Types Packs/Day Years [...] on file 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
--- OUTSIDE RECORDS SUMMARY | 2024-02-21 19:36 | XMS_ITS | Encounter Summary ---
Author Organization [facility] Address [address] [facility] [address] [place] [address] Care Team Providers Care Acid Conditioning Worker Name Role Phone Daily Cruz MD Primary Care Provider [phone] Savannah Holt Unavailable [phone] Ange Chavez MD Unavailable [phone] Reason for Visit * Reason Onset Date Comments Medical Question/Miscellaneous 08/29/2022 Encounter Details Date Type Department Care Team (Late st Contact Info) Description 08/29/2022 Telephone [facility] Family Medicine at [place] [address] [facility] [address] [place] [address] Daily Cruz MD [address] [facility] [address] [place] [address] Medical Question/Miscellaneous Social History Tobacco Use [...] on file Legal Sex Female 3:37 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 Gender Identity Female 03/02/2020 4:27 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 Sexual Orientation Straight 07/10/2019 11 :13 [...] COVID: Suspected 02/17/2023 02/17/2023 02/17/2023 12:11 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 Influenza, adult 02/17/2023 02/17/2023 02/24/2023 3:05 AM PERSONAL COMPUTER 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 documented as of this encounter Care Teams Acid Conditioning Worker Relationship Specialty Start Date End Date Daily Cruz MD PCP - General Family Medicine 03/04/21 Savannah Holt PA [address] [facility] [address] [address] Physician Domain Architect Neurology 06/07/23 Ange Chavez MD [address] [facility] [address] [address] Consulting Physician Endocrinology 06/07/23 documented as of this encounter
--- OUTSIDE RECORDS SUMMARY | 2024-02-21 19:36 | XMS_ITS | Encounter Summary ---
Author Organization [facility] Address [address] [facility] [address] [place] [address] Care Team Providers Care Physical Security Manager Name Role Phone Daily Cruz MD Primary Care Provider [phone] Encounter Details Date Type Department Care Team (Late st Contact Info) Description 06/09/2022 Orders Only [facility] Family Medicine at [place] [address] [facility] [address] [place] [address] Alecia Shaver, OSCAR [address] [facility] [address] [place] [address] Annual physical exam (Primary Dx) Social History Tobacco Use Types Packs/Day Years Used Date Smoking Tobacco: Never Smokeless Tobacco: Never Alcohol Use Standard Drinks/Week Comments Not Currently 0 (1 standard drink = 0.6 oz pure alcohol) Maybe a drink every few months AUDIT-C Answer Date Recorded Q1: How often do you have a drink containing alc ohol? Monthly or less 03/30/2022 Q2: How many drinks containi ng alcohol do you have on a typical day when you are drinking? 1 or 2 03/30/2022 Q3: How often do you have si x or more drinks on one occasion? Never 03/30/2022 PHQ-2 Answer Date Recorded PHQ-2 Total Score (If total score is 3 or more points, staff should administer the PHQ-9) 0 06/16/2021 Comments No Sex and Gender Information Value Date Recorded Sex Assigned at Not on file Legal Sex Female 3:37 PM CASTING ASSISTANT Gender Identity Female 03/02/2020 4:27 PM CASTING ASSISTANT Sexual Orientation Straight 07/10/2019 11 :13 [...] documented as of this encounter Results * TSH reflex to free T4 (06/11/2022 10:19 AM CDT) TSH 3.57 0.30 - 4.20 mcIUnit/mL ANGELICA Blood 06/11/2022 10:1 9 AM CDT 06/11/2022 10:39 AM CDT us Alecia Shaver FISHING WORKER LAB BLOOD ORDERABLES Final Res ult [facility] [address] [facility] Department [place] [address] * Lipid panel (06/11/2022 10:19 AM CDT) Cholesterol 170 30 - 199 mg/dL [facility] Comment: Interpretive Data Ages < or = [...] revised on 2017. Triglycerides 41 <=149 mg/dL [facility] Comment: Interpretive Data Ages < or = [...] revised on 2017. HDL 65 >=40 mg/dL [facility] Comment: Interpretive Data Ages < or = [...] on 2017. LDL, calculated 97 <=129 mg/dL [facility] Comment: Interpretive Data Ages < or = [...] revised on 2017. Chol/HDL ratio 3 ANGELICA Blood 06/11/2022 10:1 9 AM CDT 06/11/2022 10:39 AM CDT us Alecia Shaver FISHING WORKER LAB BLOOD ORDERABLES Final Res ult ANGELICA [address] [facility] Department [place] [address] documented in this encounter Visit Diagnoses Diagnosis Annual physical exam- Primary Routine general medical examination at a health care facility documented in this encounter Care Teams Physical Security Manager Relationship Specialty Start Date End Date Daily Cruz MD PCP - General Family Medicine 03/04/21 documented as of this encounter
--- OUTSIDE RECORDS SUMMARY | 2024-02-21 19:36 | XMS_ITS | Encounter Summary ---
Author Organization [facility] Address [address] [facility] [address] [place] [address] Care Team Providers Care See Supervisor Name Role Phone Daily Cruz MD Primary Care Provider [phone] [phone] Reason for Visit * Reason Onset Date Comments Shortness of Breath 07/15/2022 Encounter Details Date Type Department Care Team (Late st Contact Info) Description 07/15/2022 Nurse Triage [facility] Family Medicine at [place] [address] [facility] [address] [place] [address] Daily Cruz MD [address] [place] [address] [address] [place] [address] Social History Tobacco Use Types [...] on file Legal Sex Female 3:37 PM CONSTRUCTION ESTIMATOR Gender Identity Female 03/02/2020 4:27 PM CONSTRUCTION ESTIMATOR Sexual Orientation Straight 07/10/2019 11 :13 PM CDT documented as of this encounter Miscellaneous Notes * Telephone Encounter - Kylah Tejada - 07/15/2022 1:53 PM CDT Scheduled with CC * Telephone Encounter - Lucy Gallegos RN - 07/15/2022 1:22 PM CDT Onset: x 3 day (s). Pain: 0 /10. Symptoms: patient c/o: SOB, asthma flare-up, productive deep [id number] thick mucus, coughing spells., chills/shaking, feeling cold, temp 96.4. Saw carlton Monday-prescribed Prednisone, will start today. Using inhaler more than usual. Denies:other sympt oms. Relevant Meds: nebulizer, inhaler Relevant HX of: jessica 06/13/22. HTN, bipolar 2, Vit D deficiency, asthma Home Care Instructions/Education given: Patient verbalizes understanding of the instructions, is comfortable with the plan and will comply with the plan. Disposition per guideline: Go to office now. No appt available in office. Appt CC Ashley 07/15/22 545 pm with provider. Pharmacy and allergies were verified. Fyi-tasked to PCP's clinical pool. Reason for Disposition Longstanding difficulty breathing (e.g., CHF, COPD, emphysema) and worse than normal Protocols used: Breathing [id number] * Telephone Encounter - Lucy Gallegos RN - 07/15/2022 1:22 PM CDT Regarding: Shortness of breath and asthma flairup ----- Message from Corinne Ramsay sent at 07/15/2022 1:12 PM CDT ----- Symptom Based Call Caller's Callback #: [phone] Chief Complaint(s): Shortness of breath and asthma flairup Duration: Since Monday or Monday What type of symptom(s) is the patient experiencing? Red Flag. Is the patient concerned they are experiencing a medical emergency requiring an ambulance? No Additional Comments: Pt states also has a very deep cough, coughing fits , thick phlegm, and is production is grayish green. Pt is having chills, temps running in the range of 95's Does message need to be routed? Yes-Action [...] on filedocumented in this encounter Care Teams See Supervisor Relationship Specialty Start Date End Date Daily Cruz MD PCP - General Family Medicine 03/04/21 documented as of this encounter
--- OUTSIDE RECORDS SUMMARY | 2024-02-21 19:36 | XMS_ITS | Encounter Summary ---
Author Organization [facility] Address [address] [facility] [address] [place] [address] Care Team Providers Care Customer Orders Clerk Name Role Phone Daily Cruz MD Primary Care Provider [phone] [phone] Reason for Visit * Reason Comments Follow-up Htn Encounter Details Date Type Department Care Team (Late st Contact Info) Description 06/13/2022 4:00 PM CDT Office Visit [facility] Family Medicine at [place] [address] [facility] [address] [place] [id number] Alecia Shaver, PRODUCT SAFETY TESTER [address] [facility] [address] [place] [address] Hypertension, essential (Primary Dx); Leg cramping; Bipolar 2 disorder (CMS/HCC) (HCC); Other migraine without status migrainosus, not intractable; Morbid obesity with BMI of 40.0-44.9, adult (HCC) Social History Tobacco Use Types Packs/Day Years Used Date Smoking Tobacco: Never Smokeless Tobacco: Never Alcohol Use Standard Drinks/Week Comments Not Currently 0 (1 standard drink = 0.6 oz pure alcohol) Maybe a drink every few months AUDIT-C Answer Date Recorded Q1: How often do you have a drink containing alc ohol? Monthly or less 08/17/2022 Q2: How many drinks containi ng alcohol do you have on a typical day when you are drinking? 1 or 2 08/17/2022 Q3: How often do you have si x or more drinks on one occasion? 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 Gender Identity Female 03/02/2020 4:27 PM GLASS LOADING EQUIPMENT TENDER Sexual Orientation Straight 07/10/2019 11 :13 PM CDT documented as of this encounter Last Filed Vital Signs Vital Sign Reading Time Taken Comments Blood Pressure 118/62 06/13/2022 4:11 PM CDT Pulse 97 06/13/2022 4:11 PM CDT Temperature 36.8 ??C (98.2 ??F) 06/13/2022 4:11 PM CD T Respiratory Rate 18 06/13/2022 4:11 PM CDT Oxygen Saturation 99% 06/13/2022 4:11 PM CDT Inhaled Oxygen Concentration - - Weight 119.4 kg (263 lb 3.2 oz) 06/13/2022 4:11 PM CDT Height 170.2 cm (5' 7 ) 06/13/2022 4:11 PM CDT Body Mass Index 41.22 06/13/2022 4:11 PM CDT documented in this encounter Ordered Prescriptions Prescription Sig Dispense Quantity Refills Last Filled Start Date End Date lumateperone (Caplyta) 10.5 mg capsuleIndications :Bipolar 2 disorder (CMS/HCC) (HCC) Take 10.5 mg by mouth daily 30 capsule 06/14/2022 07/01/2022 atogepant (Qulipta) 30 mg tabletIndications: Other migraine without status migrainosus, not intractable Take 30 mg by mouth daily 06/13/2022 07/01/2022 losartan (COZAAR) 50 mg tabletIndications: Hypertension, essential Take 1 tablet (50 mg total) by mouth daily 30 tablet 06/13/2022 07/18/2022 documented in this encounter Progress Notes * Alecia Rendon NP - 06/13/2022 4:00 PM CDT Images from the original note were not included. Visit Date: 06/13/2022 Patient ID: Jud Leung is a 31 y.o. female. Chief Complaint(s): Follow-up (Htn) HPI: Jud Leung is a 31 y.o. female here today for follow up. She has been taking losartan 100mg daily for elevated BP. She also was started on Bumex recently for leg swelling. She states that her blood pressure has been running on the lower side at times and she is having fatigue and dizziness during those time . She states the leg swelling has improved since starting the lasix back and Bumex. She also started taking magnesium and potasium for the leg cramping which has helped. She c/o more frequent headaches. She is overdue for her emgality injection. She has been taking Nurtec as needed which helps most of the time. She feels that her anxiety has improved a little bit but she is still having trouble controlling her anger. She states she has no patience and lashes out very quickly at small things. She is currently only taking Xanax as needed at bedtime. She has not called to make an appt with psychiatry yet butstates she will call them this week. Current Outpatient Medications Medication Sig Dispense Refill fwkhnxfbrmrzq-whtquzp-jkrltxvx (EXCEDRIN MIGRAINE) 250-250-65 mg per tablet Take 1 tablet by mouth every 6 (six) hours as needed albuterol 2.5 mg /3 mL (0.083 %) nebulizer solution Take 3 mL (2.5 mg total) by nebulization every 6 (six) hours as needed for wheezing 75 mL 0 albuterol HFA (PROVENTIL HFA,VENTOLIN HFA,PROAIR HFA) 90 mcg/actuation inhaler Inhale 2 puffs 4 (four) times a day for 5 days Use only as needed after those 5 days 6.7 each 1 ALPRAZolam (XANAX) 0.5 mg tablet Take 1 tablet (0.5 mg total) by mouth daily as needed for anxiety 30 tablet 0 jbilhafpsf-wnzudiry-iocrqwecki (Breztri Aerosphere) 160-9-4.8 mcg/actuation HFA aerosol inhaler INHALE 2 PUFFS TWICE A DAY 10.7 g 1 bumetanide (BUMEX) 1 mg tablet Take 1 tablet (1 mg total) by mouth 2 (two) times a day 60 tablet 0 ergocalciferol (VITAMIN D) 50,000 unit capsule Take 1 capsule (50,000 Units total) by mouth once a week 4 capsule 5 fluticasone propionate (FLONASE) 50 mcg/actuation nasal spray Administer 2 sprays into each nostrildaily (Patient taking differently: Administer 2 sprays into each nostril 2 (two) times a day) 48 mL1 furosemide (LASIX) 40 mg tablet Take 1 tablet (40 mg total) by mouth daily 90 tablet 4 hydrocortisone 2.5 % ointment Apply topically 2 (two) times a day 30 g 0 ibuprofen (ADVIL,MOTRIN) 800 mg tablet Take 1 tablet (800 mg total) by mouth 3 (three) times a day 90 tablet 0 levonorgestreL (KYLEENA) IUD 1 each by intrauterine route once montelukast (SINGULAIR) 10 mg tablet TAKE 1 TABLET BY MOUTH EVERY DAY AT NIGHT 90 tablet 1 rimegepant (Nurtec ODT) tablet,disintegrating Take by mouth triamcinolone (KENALOG) 0.1 % cream Apply topically 2 (two) times a day as needed for rash Do not use on the face or in the groin 454 g 2 atogepant (Qulipta) 30 mg tablet Take 30 mg by mouth daily famotidine (PEPCID) 40 mg tablet Take 1 tablet (40 mg total) by mouth daily 30 tablet 0 fexofenadine (ARIANNA) 180 mg tablet TAKE 1 TABLET BY MOUTH EVERY DAY 90 tablet 1 losartan (COZAAR) 50 mg tablet Take 1 tablet (50 mg total) by mouth daily 30 tablet 0 lumateperone (Caplyta) 10.5 mg capsule Take 10.5 mg by mouth daily 30 capsule 0 No current facility-administered medications for this visit. Allergies as of 06/13/2022 - Reviewed 06/13/2022 Allergen Reaction Noted Acetazolamide Swollen tongue 01/04/2016 Dihydroergotamine Shortness of breath 10/16/2015 Hydrochlorothiazide Swollen tongue 05/20/2020 Nickel Hives, Itching, Rash, and Swelling 09/20/2017 Topiramate Swelling and Other (See comments) 04/18/2016 Hydrocodone-acetaminophen Nausea And Vomiting 09/11/2017 Lamotrigine Other (See comments) 09/20/2017 Levetiracetam Other (See comments) 09/20/2017 Oxycodone-acetaminophen Nausea And Vomiting 09/11/2017 Review of Systems: Review of Systems Constitutional: Positive for fatigue. Negative for chills and fever. HENT: Negative for congestion. Respiratory: Negative for cough, chest tightness, shortness of breath and wheezing. Cardiovascular: Positive for leg swelling. Negative for chest pain and palpitations. Gastrointestinal: Negative for abdominal pain, constipation and diarrhea. Musculoskeletal: Positive for arthralgias. Neurological: Positive for headaches. Negative for dizziness. Physical Examination: Vitals: 06/13/22 1611 BP: 118/62 BP Location: Left arm Patient Position: Sitting Pulse: 97 Resp: 18 Temp: 36.8 ??C (98.2 ??F) TempSrc: Temporal SpO2: 99% Weight: 119.4 kg (263 lb 3.2 oz) Height: 170.2 cm (5' 7 ) Physical Exam Vitals reviewed. Constitutional: Appearance: Normal appearance. Cardiovascular: Rate and Rhythm: Normal rate and regular rhythm. Pulses: Normal pulses. Heart sounds: Normal heart sounds. Pulmonary: Effort: Pulmonary effort is normal. Breath sounds: Normal breath sounds. Abdominal: General: Bowel sounds are normal. Palpations: Abdomen is soft. Musculoskeletal: General: Normal range of motion. Neurological: Mental Status: She is alert and oriented to person, place, and time. Psychiatric: Mood and Affect: Mood normal. Behavior: Behavior normal. Results Reviewed: No results found for this or any previous visit (from the past 2 hour(s)). Lab on 06/11/2022 Component Date Value Sodium 06/11/2022 139 Potassium, pl 06/11/2022 4.1 Chloride 06/11/2022 102 CO2 06/11/2022 28 Anion gap 06/11/2022 9 BUN 06/11/2022 15 Creatinine 06/11/2022 0.70 Glucose 06/11/2022 94 Calcium 06/11/2022 9.3 Cholesterol 06/11/2022 170 Triglycerides 06/11/2022 41 HDL 06/11/2022 65 LDL, calculated 06/11/2022 97 Non-HDL Cholesterol 06/11/2022 105 Chol/HDL ratio 06/11/2022 3 TSH 06/11/2022 3.57 eGFR 06/11/2022 119 Assessment/Plan Diagnoses and all orders for this visit: Hypertension, essential (I10) (Primary) Comments: New. Start losartan 50mg daily. Continue to monitor BP daily. Follow up in 2 weeks. Orders: - losartan (COZAAR) 50 mg tablet; Take 1 tablet (50 mg total) by mouth daily Leg cramping (R25.2) Comments: Improved. Continue magnesium and potassium supplement. Will repeat BMP and Mag in 2 weeks. Orders: - Basic metabolic panel; Future - Magnesium; Future Bipolar 2 disorder (CMS/HCC) ([facility]) (F31.81) Comments: Uncontrolled. Pt working on getting an appt with Psych. Continue Xanax PRN at night. Start Captlyta. Orders: - lumateperone (Caplyta) 10.5 mg capsule; Take 10.5 mg by mouth daily Other migraine without status migrainosus, not intractable (G43.809) Comments: Uncontrolled. Start Qulipta. Continue Nurtec PRN. Orders: - atogepant (Qulipta) 30 mg tablet; Take 30 mg by mouth daily Morbid obesity with BMI of 40.0-44.9, adult ([facility]) (E66.01, Z68.41) Comments: Not at goal. Encouraged pt to continue healthy diet and regular exercise 4-5 days/week. Return in about 4 weeks (around 07/11/2022) for Recheck. Alecia Rendon NP * Stefanie Best MA - 06/13/2022 4:00 PM CDT Left a message for pt to give the office a call back * Stefanie Best MA - 06/13/2022 4:00 PM CDT Left a message for pt to give the office a call back documented in this encounter Miscellaneous Notes * Addendum Note - Alecia Rendon NP - 06/13/2022 4:00 PM CDTAddended by: ALECIA RENDON on: 06/14/2022 01:51 PM Modules accepted: Orders documented in this encounter Plan of Treatment Scheduled Orders Name Type Priority Associated Diagnoses Orde r Schedule Basic metabolic panel Lab Routine Leg cramping Expected: 06/27/2022 (Approximate), Expires: 06/14/2023 Magnesium Lab Routine Leg cramping Expected: 06/27/2022 (Approximate), Expires: 06/14/2023 documented as of this encounter Goals Goal [...] as of this encounter Visit Diagnoses Diagnosis Hypertension, essential- Primary Unspecified essential hypertension Leg cramping Bipolar 2 disorder (CMS/HCC) ([facility]) Other bipolar disorders Other migraine without status migrainosus, not intractable Morbid obesity with BMI of 40.0-44.9, adult ([facility]) documented in this encounter Discontinued Medications Medication Sig Discontinue Reason Start Date End Da te losartan (COZAAR) 100 mg tabletIndications:Hyperte nsion, essential Take 1 tablet (100 mg total) by mouth daily 05/27/2022 06/13/2022 brexpiprazole (Rexulti) 0.5 mg tabletIndications:Panic attack,Bipolar 2 disorder (CMS/HCC) ([facility]) Take 1 tablet (0.5 mg total) by mouth daily Side effects 03/30/2022 06/13/2022 galcanezumab-gnlm (Emgality Pen) 120 mg/mL pen injectorIndications:Intra ctable chronic migraine without aura and with status migrainosus Inject 120 mg under the skin every 30 (thirty) days Alternate therapy 10/21/2021 06/13/2022 documented as of this encounter Additional Health Concerns Infection Onset Date Last Indicated Resolved Time COVID: Suspected 07/15/2022 07/15/2022 07/15/2022 6:49 PM CDT COVID: Suspected 07/15/2022 07/15/2022 07/16/2022 3:05 AM CDT documented as of this encounter Care Teams Customer Orders Clerk Relationship Specialty Start Date End Date Daily Cruz MD PCP - General Family Medicine 03/04/21 documented as of this encounter
--- OUTSIDE RECORDS SUMMARY | 2024-02-21 19:36 | XMS_ITS | Encounter Summary ---
Author Organization [facility] Address [address] [facility] [address] [place] [address] Care Team Providers Care Road Engineer Name Role Phone Daily Cruz MD Primary Care Provider [phone] [phone] Reason for Visit * Reason Comments Follow-up Weight loss Encounter Details Date Type Department Care Team (Late st Contact Info) Description 08/17/2022 1:00 PM CDT Office Visit [facility] Family Medicine at [place] [address] [phone] Daily Cruz MD [address] [place] [id number] Morbid obesity with BMI of 40.0-44.9, adult (HCC) (Primary Dx); Anxiety and depression; Fluid retention Social History Tobacco Use Types Packs/Day Years [...] on file 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 Gender Identity Female 03/02/2020 4:27 PM MAINTENANCE SHOP MANAGER Sexual Orientation Straight 07/10/2019 11 :13 PM CDT documented as of this encounter Last Filed Vital Signs Vital Sign Reading Time Taken Comments Blood Pressure 112/72 08/17/2022 1:15 PM CDT Pulse 78 08/17/2022 1:15 PM CDT Temperature 36.8 ??C (98.2 ??F) 08/17/2022 1:15 PM CD T Respiratory Rate 18 08/17/2022 1:15 PM CDT Oxygen Saturation 97% 08/17/2022 1:15 PM CDT Inhaled Oxygen Concentration - - Weight 114.9 kg (253 lb 6.4 oz) 08/17/2022 1:15 PM CDT Height 170.2 cm (5' 7 ) 08/17/2022 1:15 PM CDT Body Mass Index 39.69 08/17/2022 1:15 PM CDT documented in this encounter Patient Instructions * Attachments The following attachments cannot be sent through Care Everywhere. * Weight Management (AfterCare(R) Instructions(ER/ED)) (Maldivian) documented in this encounter Ordered Prescriptions Prescription Sig Dispense Quantity Refills Last Filled Start Date End Date phentermine (ADIPEX-P) 37.5 mg tabletIndications: Morbid obesity with BMI of 40.0-44.9, adult (HCC) Take 1 tablet (37.5 mg total) by mouth daily before breakfast 30 tablet 2 08/17/2022 4 documented in this encounter Progress Notes * Daily Cruz MD - 08/17/2022 1:00 PM CDT Images from the original note were not included. Patient ID: Jud Leung is a 31 y.o. female. Visit Date: 08/17/2022 Chief Complaint obesity HPI H/o anxiety/depression - uses xanax prn H/o obesity - tolerating phentermine H/o edema - stable. Tolerating bumex H/o vitamin d def - stable. Tolerating supplement Current Outpatient Medications: lzfvymmwzdory-mrpceij-nuyyysqd (EXCEDRIN MIGRAINE) 250-250-65 mg per tablet, Take 1 tablet by mouthevery 6 (six) hours as needed, Disp: , Rfl: ALPRAZolam (XANAX) 0.5 mg tablet, TAKE 1 TABLET BY MOUTH EVERY DAY NEEDED FOR ANXIETY (Patient taking differently: Take 0.5 tablets (0.25 mg total) by mouth nightly as needed), Disp: 30 tablet, Rfl: 0 qrjmaobmov-wlzlqprk-ncytojalfq (Breztri Aerosphere) 160-9-4.8 mcg/actuation HFA aerosol inhaler, [...] Disp: 180 tablet, Rfl: 3 FLUoxetine (PROzac) 20 mg capsule, TAKE 1 CAPSULE BY MOUTH EVERY DAY, Disp: 90 capsule, Rfl: 1 fluticasone propionate (FLONASE) 50 [...] 5 days, Disp: 6.7 each, Rfl: 1 phentermine (ADIPEX-P) 37.5 mg tablet, Take 1 [...] and diarrhea. Endocrine: Negative for cold intolerance. Vit d def Genitourinary: Negative for dysuria and frequency. Musculoskeletal: Negative for arthralgias and back pain. Neurological: Negative for dizziness and headaches. Hematological: Does not bruise/bleed easily. Psychiatric/Behavioral: Negative for behavioral problems and confusion. The patient is nervous/anxious. BP 112/72 (BP Location: Right arm, Patient Position: Sitting) Pulse 78 Temp 36.8 ??C (98.2 ??F)(Temporal) Resp 18 Ht 170.2 cm (5' 7 ) Wt 114.9 kg (253 lb 6.4 oz) SpO2 97% BMI 39.69 kg/m?? Body mass index is 39.69 kg/m??. Physical Exam Constitutional: Appearance: She is [...] 40.0-44.9, adult (HCC) (Primary) Assessment & Plan: Chronic Tolerating phentermine Increase to 1 tab daily Orders: - phentermine (ADIPEX-P) 37.5 mg tablet; Take 1 tablet (37.5 mg total) by mouth daily before breakfast Anxiety and depression Assessment & Plan: Chronic Cont xanax PRN Fluid retention Assessment & Plan: Chronic Stable Cont lasix Daily Cruz MD documented in this encounter Miscellaneous Notes * Assessment & Plan Note - Daily Cruz MD - 08/23/2022 6:42 PM CDT Associated Problem(s): Fluid retention Chronic Stable Cont lasix * Assessment & Plan Note - Daily Cruz MD - 08/23/2022 6:41 PM CDT Associated Problem(s): Anxiety and depression Chronic Cont xanax PRN * Assessment & Plan Note - Daily Cruz MD - 08/23/2022 6:40 PM CDT Associated Problem(s): Class 3 severe obesity due to excess calories without serious comorbidity with body mass index (BMI) of 40.0 to 44.9 in adult (HCC) Chronic Tolerating phentermine Increase to 1 tab daily documented in this encounter Plan of Treatment [...] Morbid obesity with BMI of 40.0-44.9, adult ([facility])- Primary Anxiety and depression Fluid retention Fluid overload documented in this encounter Discontinued Medications Medication Sig Discontinue Reason Start Date End Da te atogepant (Qulipta) 60 mg tablet Take 60 mg by mouth daily Therapy completed 07/01/2022 08/17/2022 levonorgestreL (KYLEENA) IUD 1 each by intrauterine route once Therapy completed 08/17/2022 losartan (COZAAR) 50 mg tabletIndications:Hyp ertension, essential TAKE 1 TABLET BY MOUTH EVERY DAY Therapy completed 07/18/2022 08/17/2022 lumateperone (Caplyta) 21 mg capsule Take 21 mg by mouth daily Therapy completed 07/01/2022 08/17/2022 oxyCODONE (ROXICODONE) 5 mg immediate release tablet Take 1 tablet (5 mg total) by mouth every 4 (four) hours as needed Therapy completed 07/12/2022 08/17/2022 phentermine (ADIPEX-P) 37.5 mg tabletIndications:Mor bid obesity with BMI of 40.0-44.9, adult (HCC) Take 1/2 tab by mouth every morning Dose adjustment 07/20/2022 08/17/2022 documented as of this encounter Historical Medications * This list may reflect changes made after this encounter. nystatin 100,000 unit/mL suspension Take 5 mL (500,000 Units total) by mouth as needed 07/15/2022 02/28/2023 added in this encounter Care Teams Road Engineer Relationship Specialty Start Date End Date Daily Cruz MD PCP - General Family Medicine 03/04/21 documented as of this encounter
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
--- OUTSIDE RECORDS SUMMARY | 2024-02-21 19:36 | XMS_ITS | Encounter Summary ---
Author Organization [facility] Address [address] [address] Care Team Providers Care Rib Builder Name Role Phone Daily Cruz MD Primary Care Provider [phone] [phone] Reason for Visit * Reason Comments Cough Sore throat, cough , started monday Encounter Details Date Type Department Care Team (Late Contact Info) Description 07/15/2022 5:45 PM CDT Office Visit [facility] [address] [place] [id number] Carissa Jimenes, PA [address] [place], [place] [id number] Acute cough (Primary Dx); Thrush, oral Social History Tobacco Use Types Packs/Day Years [...] on file Legal Sex Female 3:37 PM 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 Gender Identity Female 03/02/2020 4:27 PM 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 Sexual Orientation Straight 07/10/2019 11 :13 PM CDT documented as of this encounter Last Filed Vital Signs Vital Sign Reading Time Taken Comments Blood Pressure - - Pulse - - Temperature - - Respiratory Rate 16 07/15/2022 5:28 PM CDT Oxygen Saturation - - Inhaled Oxygen Concentration - - Weight 121.6 kg (268 lb) 07/15/2022 5:28 PM CDT Height 170.2 cm (5' 7 ) 07/15/2022 5:28 PM CDT Body Mass Index 41.97 07/15/2022 5:28 PM CDT documented in this encounter Patient Instructions * Patient Instructions* Carissa Morrison PA - 07/15/2022 5:45 PM CDT Images from the original note were not included. Thank you for allowing me to care for you today. I truly hope you received excellent care. Please reach out with any questions you may have or if I can help in anyway. I have provided further information regarding our visit today below. Respectfully, Carissa Jimenes PA-C documented in this encounter Ordered Prescriptions Prescription Sig Dispense Quantity Refills Last Filled Start Date End Date amoxicillin-clavul anate (AUGMENTIN) 875-125 mg per tabletIndications: Acute cough Take 1 tablet by mouth 2 (two) times a day for 7 days 14 tablet 07/15/2022 3 nystatin 100,000 unit/mL suspensionIndicati ons:oral candidiasis Take 4 mL (400,000 Units total) by mouth 4 (four) times a day for 10 days Swish around mouth and retain for as long as possible before swallowing. 60 mL 07/15/2022 3 benzonatate (TESSALON) 200 mg capsuleIndications :Acute cough Take 1 capsule (200 mg total) by mouth 3 (three) times a day as needed for cough for up to 10 days 20 capsule 07/15/2022 3 documented in this encounter Progress Notes * Carissa Morrison, GALINA - 07/15/2022 5:45 PM CDT Images from the original note were not included. Subjective/Objective Patient ID: Jud Leung is a 31 y.o. female. Chief Complaint Cough (Sore throat, cough ,started monday ) Patient presents for evaluation of cough, congestion, and sore throat for 1 week. Reports chills onMonday. Sore throat has improved. States cough is now productive of yellow/romero discolored sputum. She is also had intermittent shortness of breath, worse at night and in the morning. States her temp was 94- 95 on Monday, had shaking chills, and thought her lips were blue. States this has improved. She had surgery on Monday and contacted surgeon about her current symptoms, who did not get back to her. States she was under general anesthesia/intubated during surgery. She saw her steam hammer operator on Monday and prescribed prednisone that she started today and told to start taking Sravanthi. She has been using albuterol inhaler and nebulizer and is on breztree daily. Patient reports white patches on her tongue. States it is painful and feels like a film on her tongue. Review of Systems Constitutional: Positive for chills. Negative for fever. HENT: Positive for congestion and sore throat. Negative for ear discharge, ear pain, postnasal dripand rhinorrhea. Respiratory: Positive for cough and shortness of breath. Negative for chest tightness. Cardiovascular: Negative for chest pain and leg swelling. Gastrointestinal: Negative for abdominal pain, diarrhea and vomiting. Musculoskeletal: Negative for myalgias. Neurological: Negative for light-headedness and headaches. All other systems reviewed and are negative. Physical Exam Vitals reviewed. Constitutional: General: She is not in acute distress. Appearance: Normal appearance. HENT: Head: Normocephalic and atraumatic. Right Ear: Tympanic membrane, ear canal and external ear normal. Left Ear: Tympanic membrane, ear canal and external ear normal. Nose: Nose normal. Mouth/Throat: Mouth: Mucous membranes are moist. Oral lesions (White patches/film on tongue) present. Pharynx: Oropharynx is clear. Cardiovascular: Rate and Rhythm: Normal rate and regular rhythm. Heart sounds: Normal heart sounds. Pulmonary: Effort: Pulmonary effort is normal. Breath sounds: Wheezing present. Skin: General: Skin is warm and dry. Neurological: General: No focal deficit present. Mental Status: She is alert and oriented to person, place, and time. Psychiatric: Mood and Affect: Mood normal. Behavior: Behavior normal. Vitals: 07/15/22 1728 BP: (P) 128/80 BP Location: (P) Left arm Patient Position: (P) Sitting Pulse: (P) 81 Resp: 16 Temp: (P) 36.6 ??C (97.8 ??F) TempSrc: (P) Temporal SpO2: (P) 98% Weight: 121.6 kg (268 lb) Height: 170.2 cm (5' 7 ) Assessment/Plan Diagnoses and all orders for this visit: Acute cough (Primary) Assessment & Plan: Rapid COVID and flu negative, PCR pending Reports cough became productive and symptoms worsened after surgery on Monday Wheezing noted on physical exam Vital signs stable, Patient does not appear to be in acute respiratory distress Ordered chest x-ray Augmentin as directed Tessalon p.r.n. for cough Continue prednisone as prescribed by steam hammer operator Continue inhalers and nebulizer as prescribed If [...] threatening symptoms GO TO THE ER IMMEDIATELY. Orders: - benzonatate (TESSALON) 200 mg capsule; Take 1 capsule (200 mg total) by mouth 3 (three) times a day as needed for cough for up to 10 days - XR Chest PA Lateral 2 Views; Future - amoxicillin-clavulanate (AUGMENTIN) 875-125 mg per tablet; Take 1 tablet by mouth 2 (two) times aday for 7 days - POC Influenza A/B, COVID-19 antigen - Influenza A/B and RSV PCR Nasopharyngeal; Future Thrush, oral Assessment & Plan: Nystatin suspension, use as directed Follow up with PCP for persisting symptoms Orders: - nystatin 100,000 unit/mL suspension; Take 4 mL (400,000 Units total) by mouth 4 (four) times a day for 10 days Swish around mouth and retain for as long as possible before swallowing. Recent Results (from the past 4 hour(s)) POCT influenza A/B Collection Time: 07/15/22 6:33 PM Result Value Ref Range Rapid Influenza A Ag Negative Negative, Invalid Rapid Influenza B Ag Negative Negative, Invalid POC Influenza A/B, COVID-19 antigen Collection Time: 07/15/22 6:47 PM Result Value Ref Range Influenza A Ag, POC Negative Negative Influenza B Ag, POC Negative Negative COVID-19 Ag POC Presumptive Negative Presumptive Negative, Invalid Disposition Treatment plan including expectations, follow up, and return precautions discussed with patient/parent, verbalizes understanding. Medication dosage, use, and potential adverse reactions discussed with patient/parent. Advised to follow up with PCP if symptoms do not resolve as expected or sooner if condition worsens. Signs/symptoms warranting ER evaluation reviewed. Patient and/or guardian was given an opportunity to ask questions, questions answered. GALINA James 07/15/22 6:50 PM documented in this encounter Miscellaneous Notes * Assessment & Plan Note - Carissa Morrison PA - 07/15/2022 6:24 PM CDT Associated Problem(s): Acute cough Rapid COVID and flu negative, PCR pending Reports cough became productive and symptoms worsened after surgery on Monday Wheezing noted on physical exam Vital signs stable, Patient does not appear to be in acute respiratory distress Ordered chest x-ray Augmentin as directed Tessalon p.r.n. for cough Continue prednisone as prescribed by steam hammer operator Continue inhalers and nebulizer as prescribed If [...] threatening symptoms GO TO THE ER IMMEDIATELY. * Assessment & Plan Note - Carissa Morrison PA - 07/15/2022 6:23 PM CDT Associated Problem(s): Idiopathic orofacial dystonia Nystatin suspension, use as directed Follow up with PCP for persisting symptoms documented in this encounter Plan of Treatment Pending Results Name Type Priority Associated Diagnoses Date /Time POC Influenza A/B, COVID-19 antigen Point of Care Testing Routine Acute cough 07/15/2022 6:47 PM CDT documented as of this encounter Goals Goal Patient Goal Type Associated Problems Recent Progress Patient-Stated? Author CCM Chronic Pain Care Plan Chronic Care Management Sangeetha Monk, LEE Note: Problem: Chronic Pain Goals: 1. Minimize further functional decline 2. Maximize quality of life 3. Control pain Strategies: - Activity/exercise program recommendation - Conservative stepwise pain medicine strategy with multi-disciplinary approach - Recommend healthy lifestyle strategies and compensatory methods as needed documented as of this encounter Procedures Procedure Name Priority Date/Time Associated Diagnosis Comments POC INFLUENZA A/B, COVID-19 ANTIGEN Routine 07/15/2022 6:47 PM CDT Acute cough documented in this encounter Results * XR Chest PA Lateral 2 Views (07/16/2022 12:04 PM CDT) Anatomical Region Laterality Modality Body, Chest N/A Computed Radiogr aphy 07/16/2022 12:2 2 PM CDT Narrative 07/16/2022 12:23 PM CDT EXAM DESCRIPTION: XR CHEST PA LATERAL 2 VIEWS REASON FOR STUDY: wheezing, sob, productive cough ?? Cough/ SOB x 1 week. Burning while coughing. Hx of Asthma. ?? TECHNIQUE: Frontal and ??radiographic view(s) of the chest. COMPARISON: 05/26/2022 FINDINGS: The heart, mediastinum, and pulmonary vasculature are grossly stable. ??There is no definite evidence of a pneumothorax. ??There is no definite evidence of focal consolidation or pleural effusion. The osseous structures are acutely grossly stable. IMPRESSION: No acute cardiopulmonary abnormality. THIS IS AN ELECTRONICALLY VERIFIED FINAL REPORT 07/16/2022 12:23 PM - Electronically signed by ??Lorri Easton D.O. PS D: ??07/16/2022 12:23 PM T: Report ID: [id number] Reading Location: ??[id number] Procedure Note Lorri Easton, DO - 07/16/2022 EXAM DESCRIPTION: XR CHEST PA LATERAL 2 VIEWS REASON FOR STUDY: wheezing, sob, productive cough Cough/ SOB x 1 week. Burning while coughing. Hx of Asthma. TECHNIQUE: Frontal and radiographic view(s) of the chest. COMPARISON: 05/26/2022 FINDINGS: The heart, mediastinum, and pulmonary vasculature are grossly stable. There is no definite evidence of a pneumothorax. There is no definite evidence of focal consolidation or pleural effusion. The osseous structures are acutely grossly stable. IMPRESSION: No acute cardiopulmonary abnormality. THIS IS AN ELECTRONICALLY VERIFIED FINAL REPORT 07/16/2022 12:23 PM - Electronically signed by Lorri Easton D.O. PS T: Report ID: [id number] Reading Location: [id number] Carissa MOJICA IMG XR PROCEDURES Final Resu lt * Influenza A/B and RSV PCR Nasopharyngeal (07/15/2022 8:00 PM CDT) Influenza A RNA Negative Negative [facility] Influenza B RNA Negative Negative [facility] RSV RNA Negative Negative [facility] Comment: Interpretive Data Testing performed by the [facility] Molecular Infectious Disease Laboratory. ??This test is performed using the [employer] Influenza A/B and RSV Assay. ??This is a real-time RT-PCR test for the qualitative detection of nucleic acid from Influenza A, Influenza B, and RSV. ??This assay has been cleared by the FDA for routine clinical use. ??The performance characteristics have been verified by the [facility]. ?? Results should be interpreted in combination with clinical context and a negative result does not rule out infection. Interpretive data last revised 2020. Nasopharyngeal 07/15/2022 8: 00 PM CDT 07/15/2022 10:51 PM CDT us Carissa MOJICA LAB MICROBIOLOGY - GENERAL O RDERABLES Final Result Performing Organization Address City/State/[facility] Co de Phone Number [facility] [place] [address] documented in this encounter Visit Diagnoses Diagnosis Acute cough- Primary Thrush, oral Acute cough documented in this encounter Additional Health Concerns Infection Onset Date Last Indicated Resolved Time COVID: Suspected 07/15/2022 07/15/2022 07/15/2022 6:49 PM CDT documented as of this encounter Care Teams Rib Builder Relationship Specialty Start Date End Date Daily Cruz MD PCP - General Family Medicine 03/04/21 documented as of this encounter
--- OUTSIDE RECORDS SUMMARY | 2024-02-21 19:36 | XMS_ITS | Encounter Summary ---
Author Organization [facility] Address [address] [facility] [address] [place] [address] Care Team Providers Care Mortgage Operations Manager Name Role Phone Daily Cruz MD Primary Care Provider [phone] [phone] Reason for Visit * Reason Onset Date Comments Medical Question/Miscellaneous 06/08/2022 Encounter Details Date Type Department Care Team (Late st Contact Info) Description 06/08/2022 Telephone [facility] Family Medicine at [place] [address] [facility] [address] [place] [address] Daily Cruz MD [address] [place] [address] Medical Question/Miscellaneous Social History Tobacco Use [...] on file 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 * Telephone Encounter - Daily Cruz MD - 06/08/2022 5:00 PM CDT Added bumex BID. Have her take OTC potassium. Get a BMP on Monday morning before follow up * Telephone Encounter - Karina Wade - 06/08/2022 8:48 AM CDT Medical Question/Miscellaneous Caller???s Concern: Patient called in and made an appointe to see OSCAR Alston per follow up Monday, she then relayed thatbenito is still having major swelling in her knees and was put on dieretics and losartan, she wanted to know if Dr Calero can add another dieretic today if possible, wanted follow up call with practice. Caller???s Call back #: [phone] Does message need to be routed?Yes-Action Needed [...] documented as of this encounter Results * Basic metabolic panel (06/11/2022 10:19 AM CDT) Sodium 139 135 - 145 mmol/L [facility] Potassium, pl 4.1 3.3 - 4.9 mmol/L [facility] Chloride 102 97 - 110 mmol/L [facility] CO2 28 22 - 32 mmol/L [facility] Anion gap 9 2 - 15 mmol/L [facility] BUN 15 8 - 25 mg/dL [facility] Creatinine 0.70 0.60 - 1.10 mg/dL [facility] Glucose 94 70 - 199 mg/dL [facility] Comment: Interpretive Data Fasting glucose >/= 126 [...] 2022. Calcium 9.3 8.5 - 10.3 mg/dL [facility] Blood 06/11/2022 10:1 9 AM CDT 06/11/2022 10:39 AM CDT us Daily Cruz MD LAB BLOOD ORDERABLES [facility] l [facility] [address] [facility] Department [place] [address] documented in this encounter Visit Diagnoses Diagnosis Low serum aspartate aminotransferase (AST)- Primary documented in this encounter Care Teams Mortgage Operations Manager Relationship Specialty Start Date End Date Daily Cruz MD PCP - General Family Medicine 03/04/21 documented as of this encounter
--- OUTSIDE RECORDS SUMMARY | 2024-02-21 19:36 | XMS_ITS | Encounter Summary ---
Author Organization [facility] Healthcare Address [address] [place] [address] Care Team Providers Care Phosphatic Fertilizer Supervisor Name Role Phone Daily Cruz MD Primary Care Provider [phone] [phone] Encounter Details Date Type Department Care Team (Latest Contact Info) Description 07/16/2022 12:00 PM CDT - 07/16/2022 11:59 PM CDT Hospital Encounter [facility] Diagnostic Imaging [address] [place] [address] Acute cough Discharge Disposition: Discharge to home or self [...] on file Legal Sex Female 3:37 PM STUNT WOMAN Gender Identity Female 03/02/2020 4:27 PM STUNT WOMAN Sexual Orientation Straight 07/10/2019 11 :13 PM CDT documented as of this encounter Medications at Time of Discharge amoxicillin-clavu lanate (AUGMENTIN) 875-125 mg per tabletIndications :Acute cough Take 1 tablet by mouth 2 (two) times a day for 7 days 14 tablet 07/15/2022 3 benzonatate (TESSALON) 200 mg capsuleIndication s:Acute cough Take 1 capsule (200 mg total) by mouth 3 (three) times a day as needed for cough for up to 10 days 20 capsule 07/15/2022 3 nystatin 100,000 unit/mL suspensionIndicat ions:oral candidiasis Take 4 mL (400,000 Units total) by mouth 4 (four) times a day for 10 days Swish around mouth and retain for as long as possible before swallowing. 60 mL 07/15/2022 3 predniSONE (DELTASONE) 20 mg tabletIndications :Moderate persistent asthma, unspecified whether complicated Take 2 tablets (40 mg) by mouth daily for 5 days 10 tablet 07/13/2022 3 acetaminophen-asp irin-caffeine (EXCEDRIN MIGRAINE) 250-250-65 mg per tablet Take 1 tablet by mouth every 6 (six) hours as needed 4 albuterol 2.5 mg /3 mL (0.083 %) nebulizer solution Take 3 mL (2.5 mg total) by nebulization every 6 (six) hours as needed for wheezing 75 mL 07/23/2021 3 albuterol HFA (PROVENTIL HFA,VENTOLIN HFA,PROAIR HFA) 90 mcg/actuation inhalerIndication s:Acute bronchitis due to other specified organisms Inhale 2 puffs 4 (four) times a day for 5 days Use only as needed after those 5 days 6.7 each 1 03/22/2022 3 ALPRAZolam (XANAX) 0.5 mg tabletIndications :Panic attack,Bipolar 2 disorder (CMS/HCC) ([facility]) TAKE 1 TABLET BY MOUTH EVERY DAY NEEDED FOR ANXIETY 30 tablet 07/01/2022 3 atogepant (Qulipta) 60 mg tablet Take 60 mg by mouth daily 30 tablet 2 07/01/2022 3 budesonide-glycop yr-formoterol (Breztri Aerosphere) 160-9-4.8 [...] 4 ergocalciferol (VITAMIN D) 50,000 unit capsule Take 1 capsule (50,000 Units total) by mouth once a week 4 capsule 5 10/21/2021 3 famotidine (PEPCID) 40 mg tabletIndications :Gastroesophageal reflux disease without esophagitis Take 1 tablet (40 mg total) by mouth daily 30 tablet 11/16/2021 3 fexofenadine (ARIANNA) 180 mg tabletIndications :Non-seasonal allergic rhinitis due to fungal spores Take 1 tablet (180 mg total) by mouth 2 (two) times a day 180 tablet 3 07/13/2022 4 fluticasone propionate (FLONASE) 50 mcg/actuation nasal [...] times a day 90 tablet 09/27/2021 4 levonorgestreL (KYLEENA) IUD 1 each by intrauterine route once 3 losartan (COZAAR) 50 mg tabletIndications :Hypertension, essential Take 1 tablet (50 mg total) by mouth daily 30 tablet 06/13/2022 3 lumateperone (Caplyta) 21 mg capsule Take 21 mg by mouth daily 30 capsule 2 07/01/2022 3 magnesium oxide 400 mg magnesium capsule Take [...] and dinner 60 capsule 3 01/03/2023 4 oxyCODONE (ROXICODONE) 5 mg immediate release tablet Take 1 tablet (5 mg total) by mouth every 4 (four) hours as needed 07/12/2022 3 POTASSIUM CHLORIDE ORAL Take by mouth daily [...] Priority Date/Time Associated Diagnosis Comments XR CHEST PA LATERAL 2 VIEWS Schedule GUILLERMINA, Read GUILLERMINA (Appt Today, Awaiting Results) 07/16/2022 12:04 PM CDT Acute cough documented in this [...] D: ??07/16/2022 12:23 PM T: Report ID: [id number] Reading Location: ??[id number] Procedure Note Lorri Easton DO - 07/16/2022 EXAM DESCRIPTION: XR CHEST [...] 12:23 PM - Electronically signed by Lorri SherO. PS T: Report ID: [id number] Reading Location: [id number] Car[facility] MOJICA IMG XR PROCEDURES Final Resu lt documented in this encounter Visit Diagnoses Diagnosis Acute cough documented in this encounter Care Teams Phosphatic Fertilizer Supervisor Relationship Specialty Start Date End Date Daily Cruz MD PCP - General Family Medicine 03/04/21 documented as of this encounter
--- OUTSIDE RECORDS SUMMARY | 2024-02-21 19:36 | XMS_ITS | Encounter Summary ---
Author Organization [facility] Address [address] [facility] [address] [place] [address] Care Team Providers Care Charting Clerk Name Role Phone Daily Cruz MD Primary Care Provider [phone] [phone] Encounter Details Date Type Department Care Team (Late st Contact Info) Description 06/08/2022 Orders Only [facility] Family Medicine at [facility] [address] [place] [address] [address] [place] [address] Daily Cruz MD [address] [place] [address] [address] [place] [address] Social History Tobacco Use Types [...] file Legal Sex Female 3:37 PM FRONT 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 LEAD Gender Identity Female 03/02/2020 4:27 PM FRONT DESK LEAD Sexual Orientation Straight 07/10/2019 11 :13 PM CDT documented as of this encounter Ordered Prescriptions Prescription Sig Dispense Quantity Refills Last Filled Start Date End Date bumetanide (BUMEX) 1 mg tablet Take 1 tablet (1 mg total) by mouth 2 (two) times a day 60 tablet 06/08/2022 06/30/2022 documented in this encounter Plan of Treatment [...] on filedocumented in this encounter Care Teams Charting Clerk Relationship Specialty Start Date End Date Daily Cruz MD PCP - General Family Medicine 03/04/21 documented as of this encounter
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
--- OUTSIDE RECORDS SUMMARY | 2024-02-21 19:36 | XMS_ITS | Encounter Summary ---
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 Gender Identity Female 03/02/2020 4:27 PM 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 Sexual Orientation Straight 07/10/2019 11 :13 PM CDT documented as of this encounter Progress Notes * Abida Moffett MA - 07/15/2022 6:31 PM CDT Flu documented in this encounter Miscellaneous Notes * Addendum Note - Abida Moffett MA - 07/15/2022 6:31 PM CDTAddended by: ABIDA MOFFETT on: 07/15/2022 07:50 PM Modules accepted: Orders documented in this encounter Plan of Treatment Pending Results Name Type Priority Associated Diagnoses Date /Time POCT influenza A/B Point of Care Testing Routine Acute cough 07/15/2022 6:33 PM CDT documented as of this encounter [...] Name Priority Date/Time Associated Diagnosis Comments POCT INFLUENZA A/B Routine 07/15/2022 6:33 PM CDT Acute cough documented in this encounter Visit Diagnoses Diagnosis Acute cough- Primary documented in this encounter Additional Health Concerns Infection Onset Date Last Indicated Resolved Time COVID: Suspected 07/15/2022 07/15/2022 07/15/2022 6:49 PM CDT COVID: Suspected 07/15/2022 07/15/2022 07/16/2022 3:05 AM CDT documented as of this encounter Care Teams Hot Stick Man Relationship Specialty Start Date End Date Daily Cruz MD PCP - General Family Medicine 03/04/21 documented as of this encounter
--- OUTSIDE RECORDS SUMMARY | 2024-02-21 19:36 | XMS_ITS | Encounter Summary ---
Author Organization [facility] Address [address] [facility] [address] [place] [address] Care Team Providers Care Environmental Projects Advisor Name Role Phone Daily Cruz MD Primary Care Provider [phone] [phone] Encounter Details Date Type Department Care Team (Late st Contact Info) Description 07/15/2022 Orders Only [facility] CON[facility]IENT CARE AT [place] [address] [place] [phone] Carissa Jimenes, PA [address] [place], [place] [id number] Social History Tobacco Use Types Packs/Day Years [...] on file 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
--- OUTSIDE RECORDS SUMMARY | 2024-02-21 19:36 | XMS_ITS | Encounter Summary ---
Author Organization [facility] Address [address] [place] [address] Phone Care Team Providers Care Behavioral Interventionist Name Role Phone Daily Cruz MD Primary Care Provider [phone] [phone] Encounter Details Date Type Department Care Team (Late st Contact Info) Description 07/21/2022 3:00 PM CDT Office Visit [facility] All[facility] and Immunology [address] [place] [address] Hortencia Rivera MD PhD [address] [place] [address] Moderate persistent asthma with acute exacerbation (Primary Dx); Bronchitis; Acute bronchitis due to other specified organisms [...] file 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 Gender Identity Female 03/02/2020 4:27 PM 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 Sexual Orientation Straight 07/10/2019 11 :13 PM CDT documented as of this encounter Last Filed Vital Signs Vital Sign Reading Time Taken Comments Blood Pressure 115/75 07/21/2022 3:05 PM CDT Pulse 88 07/21/2022 3:05 PM CDT Temperature 37.8 ??C (100 ??F) 07/21/2022 3:05 PM CDT Respiratory Rate - - Oxygen Saturation 100% 07/21/2022 3:05 PM CDT Inhaled Oxygen Concentration - - Weight 120.3 kg (265 lb 4.8 oz) 07/21/2022 3:05 PM CDT Height 170.2 cm (5' 7 ) 07/21/2022 3:05 PM CDT Body Mass Index 41.55 07/21/2022 3:05 PM CDT documented in this encounter Ordered Prescriptions Prescription Sig Dispense Quantity Refills Last Filled Start Date End Date predniSONE (DELTASONE) 10 mg tabletIndications: Asthma Exacerbation Take 4 tablets (40 mg) by mouth daily for 5 days 20 tablet 07/21/2022 3 albuterol HFA (PROVENTIL HFA,VENTOLIN HFA,PROAIR HFA) 90 mcg/actuation inhalerIndications :Acute bronchitis due to other specified organisms Inhale 2 puffs 4 (four) times a day for 5 days Use only as needed after those 5 days 6.7 each 1 07/21/2022 4 documented in this encounter Progress Notes * Hortencia Rivera MD PhD - 07/21/2022 3:00 PM CDT Images from the original note were not included. Daily Cruz MD, We had the pleasure of seeing Jud Leung today in the Division of Allergy and Immunology at [facility] for routine follow- up. Jud Leung was last seen here on May 31, 23. The patient has recently been suffering from poor control of her asthma and allergies on 12 of July. She was seen by our OXYGEN EQUIPMENT PREPARER and her medications were increased. More recently, and following a laparoscopic surgery for endometriosis 1 week ago, she had another relapse of severe asthma and was evaluated in her PCP office. CXR and COVID test were negative. She was started on on steroids in addition Arianna bid and Augmentin course. She still on Augmentin and steroids. Cough is improving and is less productive. She is using the nebulizer with albuterol 2 times daily. The patient acquired an additional bird with a lot more feathery dust 1 week ago. The severe asthmaattack was following a visit to the [facility]. Review of Symptoms: Review of systems has no pertinent positives; otherwise as noted in HPI. Allergies: Acetazolamide, Dihydroergotamine, Hydrochlorothiazide, Nickel, Topiramate, Hydrocodone-acetaminophen, Lamotrigine, Levetiracetam, and Oxycodone-acetaminophen Current Medications: Current Outpatient Medications: tewrocrefvrlx-keslhyz-fuymckww (EXCEDRIN MIGRAINE) 250-250-65 mg per tablet, Take 1 tablet by mouthevery 6 (six) hours as needed, Disp: , Rfl: albuterol 2.5 mg /3 mL (0.083 %) nebulizer solution, Take 3 mL (2.5 mg total) by nebulization every6 (six) hours as needed for wheezing, Disp: 75 mL, Rfl: 0 albuterol HFA (PROVENTIL HFA,VENTOLIN HFA,PROAIR HFA) 90 mcg/actuation inhaler, Inhale 2 puffs 4 (four) times a day for 5 days Use only as needed after those 5 days, Disp: 6.7 each, Rfl: 1 ALPRAZolam (XANAX) 0.5 mg tablet, TAKE 1 TABLET BY MOUTH EVERY DAY NEEDED FOR ANXIETY, Disp: 30 tablet, Rfl: 0 amoxicillin-clavulanate (AUGMENTIN) 875-125 mg per tablet, Take 1 tablet by mouth 2 (two) times a day for 7 days, Disp: 14 tablet, Rfl: 0 benzonatate (TESSALON) 200 mg capsule, Take 1 capsule (200 mg total) by mouth 3 (three) times a dayas needed for cough for up to 10 days, Disp: 20 capsule, Rfl: 0 xsbhwmozuo-lqascnez-njzeaxumwo (Breztri Aerosphere) 160-9-4.8 mcg/actuation HFA aerosol inhaler, INHALE 2 PUFFS TWICE A DAY, Disp: 10.7 g, Rfl: 1 bumetanide (BUMEX) 1 mg tablet, TAKE 1 TABLET BY MOUTH TWICE A DAY, Disp: 60 tablet, Rfl: 5 ergocalciferol (VITAMIN D) 50,000 unit capsule, Take 1 capsule (50,000 Units total) by mouth once aweek, Disp: 4 capsule, Rfl: 5 famotidine (PEPCID) 40 mg tablet, Take 1 tablet (40 mg total) by mouth daily, Disp: 30 tablet, Rfl:0 fexofenadine (ARIANNA) 180 mg tablet, Take 1 tablet (180 mg total) by mouth 2 (two) times a day, Disp: 180 tablet, Rfl: 3 FLUoxetine (PROzac) 20 mg capsule, Take 1 capsule (20 mg total) by mouth daily, Disp: 30 capsule, Rfl: 0 fluticasone propionate (FLONASE) 50 mcg/actuation nasal spray, [...] Rfl: 1 nystatin 100,000 unit/mL suspension, Take 4 mL (400,000 Units total) by mouth 4 (four) times a day for 10 days Swish around mouth and retain for as long as possible before swallowing., Disp: 60 mL, Rfl: 0 phentermine (ADIPEX-P) 37.5 mg tablet, Take 1/2 tab by mouth every morning, Disp: 15 tablet, Rfl: 0 POTASSIUM CHLORIDE ORAL, Take by mouth daily, Disp: , Rfl: rimegepant (Nurtec ODT) tablet,disintegrating, Take by mouth as needed, Disp: , Rfl: triamcinolone (KENALOG) 0.1 % cream, Apply topically 2 (two) times a day as needed for rash Do not use on the face or in the groin, Disp: 454 g, Rfl: 2 atogepant (Qulipta) 60 mg tablet, Take 60 mg by mouth daily (Patient not taking: Reported on 07/21/2022), Disp: 30 tablet, Rfl: 2 levonorgestreL (KYLEENA) IUD, 1 each by intrauterine route once (Patient not taking: Reported on 07/20/2022), Disp: , Rfl: losartan (COZAAR) 50 mg tablet, TAKE 1 TABLET BY MOUTH EVERY DAY (Patient not taking: Reported on 07/21/2022), Disp: 30 tablet, Rfl: 2 lumateperone (Caplyta) 21 mg capsule, Take 21 mg by mouth daily (Patient not taking: Reported on 07/21/2022), Disp: 30 capsule, Rfl: 2 oxyCODONE (ROXICODONE) 5 mg immediate release tablet, Take 1 tablet (5 mg total) by mouth every 4 (four) hours as needed (Patient not taking: Reported on 07/20/2022), Disp: , Rfl: Social History: Patient reports that she has never smoked. She has been exposed to tobacco smoke. She has never used smokeless tobacco. She reports that she does not currently use drugs after having used the following drugs: Alcohol. Patient denies consuming alcoholic drinks. View : No data to display. Review of Symptoms Review of systems has no pertinent positives, o/w as noted in HPI. Reviewed patient's history form and the review of systems. Physical Exam: BP 115/75 Pulse 88 Temp 37.8 ??C (100 ??F) Ht 170.2 cm (5' 7 ) Wt 120.3 kg (265 lb 4.8 oz) SpO2 100% BMI 41.55 kg/m?? General: Patient is well nourished, well developed and in no acute distress. HEENT: Normocephalic, atraumatic, EOMI. + conjunctival injection. Tympanic membranes clear bilaterally. + nasal mucosal pallor and + nasal turbinate enlarged, no reduced nasal air flow, + pharyngeal cobblestoning, + pretonsillar erythema, + exudate, no sinus tenderness. Neck: Supple with no lymphadenopathy. Lungs: CTA. No wheezing, no accessory respiratory muscle activity or labored breathing. Cardiovascular: Regular rate and rhythm. No murmur. Skin: no rashes, eczema or swelling Neurological and musculoskeletal: grossly intact Extremities: No clubbing, cyanosis, or edema. Spirometry: deferred Laboratory Testing: Recent Results (from the past 336 hour(s)) POCT influenza A/B Collection Time: 07/15/22 6:33 PM Result Value Ref Range Rapid Influenza A Ag Negative Negative, Invalid Rapid Influenza B Ag Negative Negative, Invalid POC Influenza A/B, COVID-19 antigen Collection Time: 07/15/22 6:47 PM Result Value Ref Range Influenza A Ag, POC Negative Negative Influenza B Ag, POC Negative Negative COVID-19 Ag POC Presumptive Negative Presumptive Negative, Invalid Influenza A/B and RSV PCR Nasopharyngeal Collection Time: 07/15/22 8:00 PM Specimen: Nasopharyngeal Result Value Ref Range Influenza A RNA Negative Negative Influenza B RNA Negative Negative RSV RNA Negative Negative Impression and Recommendations: (J45.41) Moderate persistent asthma with acute exacerbation (primary encounter diagnosis) (J40) Bronchitis (J20.8) Acute bronchitis due to other specified organisms Plan: albuterol HFA (PROVENTIL HFA,VENTOLIN HFA,PROAIR HFA) 90 mcg/actuation inhaler The patient had an asthma exacerbation due to worsening of environmental exposures. The patient is still not at baseline with excessive use of rescue inhaler. I recommended to the patient the following measures. is still not at base line. Albuterol qid for 5 days Continue Augmentin. Start another five day course or prednisone. Needs tighter environmental control measures. Consider immunotherapy for the longterm control. --- New Medications Ordered This Visit albuterol HFA (PROVENTIL HFA,VENTOLIN HFA,PROAIR HFA) 90 mcg/actuation inhaler Sig: Inhale 2 puffs 4 (four) times a day for 5 days Use only as needed after those 5 days Dispense: 6.7 each Refill: 1 predniSONE (DELTASONE) 10 mg tablet Sig: Take 4 tablets (40 mg) by mouth daily for 5 days Dispense: 20 tablet Refill: 0 Take 3 tablets in the morning, one table around 5 pm for 5 days. Follow up: Return in about 2 months (around 09/20/2022). My total encounter time on 07/21/2022 was 30 minutes which was spent in the activities documented in the note. This includes time spent prior to the visit and after the visit in direct care of the patient. This time does not include time spent in any separately reportable services. Hortencia Rivera MD, PHD documented in this encounter Plan of Treatment [...] as of this encounter Visit Diagnoses Diagnosis Moderate persistent asthma with acute exacerbation- Primary Bronchitis Bronchitis, not specified as acute or chronic Acute bronchitis due to other specified organisms documented in this encounter Discontinued Medications Medication Sig Discontinue Reason Start Date End Da te albuterol 2.5 mg /3 mL (0.083 %) nebulizer solution Take 3 mL (2.5 mg total) by nebulization every 6 (six) hours as needed for wheezing 07/23/2021 07/21/2022 albuterol HFA (PROVENTIL HFA,VENTOLIN HFA,PROAIR HFA) 90 mcg/actuation inhalerIndications:[place] bronchitis due to other specified organisms Inhale 2 puffs 4 (four) times a day for 5 days Use only as needed after those 5 days 03/22/2022 07/21/2022 documented as of this encounter Care Teams Behavioral Interventionist Relationship Specialty Start Date End Date Daily Cruz MD PCP - General Family Medicine 03/04/21 documented as of this encounter
--- OUTSIDE RECORDS SUMMARY | 2024-02-21 19:36 | XMS_ITS | Encounter Summary ---
Author Organization [facility] Address [address] [place] [address] Phone Care Team Providers Care Real Estate Acquisition Analyst Name Role Phone Daily Cruz MD Primary Care Provider [phone] Encounter Details Date Type Department Care Team (Late st Contact Info) Description 07/13/2022 3:30 PM CDT Office Visit [facility] Allergy and Immunology [address] [facility] [address] [place] [id number] Larisa Yuan NP [address] [facility] [address] [place] [address] Moderate persistent asthma, unspecified whether complicated (Primary Dx); Non-seasonal allergic rhinitis due to fungal spores Social History Tobacco Use Types Packs/Day Years Used Date Smoking Tobacco: Never Smokeless Tobacco: Never Tobacco Cessation:Counseling Given: Not [...] on file 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 Gender Identity Female 03/02/2020 4:27 PM TILE CONDUIT LAYER Sexual Orientation Straight 07/10/2019 11 :13 PM CDT documented as of this encounter Last Filed Vital Signs Vital Sign Reading Time Taken Comments Blood Pressure 108/68 07/13/2022 3:41 PM CDT Pulse 54 07/13/2022 3:41 PM CDT Temperature 36.7 ??C (98.1 ??F) 07/13/2022 3:41 PM CD T Respiratory Rate - - Oxygen Saturation 100% 07/13/2022 3:41 PM CDT Inhaled Oxygen Concentration - - Weight 121.3 kg (267 lb 6.4 oz) 07/13/2022 3:41 PM CDT Height 170.2 cm (5' 7 ) 07/13/2022 3:41 PM CDT Body Mass Index 41.88 07/13/2022 3:41 PM CDT documented in this encounter Patient Instructions * Patient Instructions* Larisa Yuan NP - 07/13/2022 3:30 PM CDT Patient received the following instruction(s) and verbalized understanding: Arianna 180 mg twice a day Flonase 2 sprays per nostril daily, spray away from center of nose and sniff gently Breztri 2 puffs twice a day Albuterol as needed Prednisone 40 mg x 5 days Nebulizer morning and at night for the next 3 days documented in this encounter Ordered Prescriptions Prescription Sig Dispense Quantity Refills Last Filled Start Date End Date fexofenadine (ARIANNA) 180 mg tabletIndications: Non-seasonal allergic rhinitis due to fungal spores Take 1 tablet (180 mg total) by mouth 2 (two) times a day 180 tablet 3 07/13/2022 4 predniSONE (DELTASONE) 20 mg tabletIndications: Moderate persistent asthma, unspecified whether complicated Take 2 tablets (40 mg) by mouth daily for 5 days 10 tablet 07/13/2022 3 documented in this encounter Progress Notes * Larisa Yuan, OSCAR - 07/13/2022 3:30 PM CDT Images from the original note were not included. History of Present Illness: Jud Leung is a 31 y.o. year old female with asthma and allergic rhinitis who presents for a follow up visit. She was last seen in our clinic on 03/22/2022. The patient had laparoscopic surgery for endometriosis yesterday. She reports increased asthma symptoms starting last weekend. She was under general anesthesia. The anesthesiologist suggested she useher albuterol prior to surgery. Today, she reports wheezing and shortness of breath. She is used neb ulizers, which has helped. The patient has a history of asthma. She uses breztri 2 puffs twice a day and albuterol as needed. She ran out of this medication. The pharmacy took a long time to fill it, and she noted increased asthma symptoms while off of her inhaler. She is been back on her inhaler for about a month. She is not been on prednisone for breathing for over a year. She has been on prednisone for her knee. The patient has a history of allergic rhinitis. Previous skin testing was positive to dust mites, mold, trees, grasses, weeds, cat, and dog. She is on Arianna once daily and Flonase 2 sprays per nostril daily. Her symptoms have been worse over the past few weeks. At her visit in February, she reported a rash after waxing her face. I had suggested she increase her Arianna. However, this medication was not sent to her insurance. She is only been taking once a day recently. The rash has resolved. allergic rhinitis and asthma Review of Systems: A complete review of systems is performed and pertinent positives and negatives are outlined in theHPI. Medical History: Past Medical History: Diagnosis Date ADHD (attention deficit hyperactivity disorder) Anxiety Arthritis Brain concussion 2010, 2009 Chronic bronchitis (HCC) Depression Gastric reflux GERD (gastroesophageal reflux disease) PRN tums IIH (idiopathic intracranial hypertension) Pseudotumor cerebri. reports last spinal tap 2017. 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 She has never used smokeless tobacco. She reports current drug use. Drug: Alcohol. Patient denies consuming alcoholic drinks. Current Outpatient Medications: zlnlbjngtnkwk-vhnwwxm-tvlikafk (EXCEDRIN MIGRAINE) 250-250-65 mg per tablet, Take [...] mg tablet, Take 60 mg by mouth daily, Disp: 30 tablet, Rfl: 2 lqvvswtlgk-fdilxwda-ttlpefzuse (Breztri Aerosphere) 160-9-4.8 mcg/actuation HFA aerosol inhaler, [...] by mouth daily, Disp: 30 tablet, Rfl:0 fluticasone propionate (FLONASE) 50 mcg/actuation nasal spray, [...] Rfl: 0 losartan (COZAAR) 50 mg tablet, Take 1 tablet (50 mg total) by mouth daily, Disp: 30 tablet, Rfl: 0 lumateperone (Caplyta) 21 mg capsule, Take 21 mg by mouth daily, Disp: 30 capsule, Rfl: 2 magnesium oxide 400 mg magnesium capsule, Take 400 mg by mouth daily, Disp: , Rfl: montelukast (SINGULAIR) 10 mg tablet, TAKE 1 TABLET BY MOUTH EVERY DAY AT NIGHT, Disp: 90 tablet, Rfl: 1 oxyCODONE (ROXICODONE) 5 mg immediate release tablet, Take 1 tablet (5 mg total) by mouth every 4 (four) hours as needed, Disp: , Rfl: POTASSIUM CHLORIDE ORAL, Take by mouth daily, Disp: , Rfl: rimegepant (Nurtec ODT) tablet,disintegrating, Take by mouth as needed, Disp: , Rfl: triamcinolone (KENALOG) 0.1 % cream, Apply topically 2 (two) times a day as needed for rash Do not use on the face or in the groin, Disp: 454 g, Rfl: 2 fexofenadine (ARIANNA) 180 mg tablet, Take 1 tablet (180 mg total) by mouth 2 (two) times a day, Disp: 180 tablet, Rfl: 3 levonorgestreL (KYLEENA) IUD, 1 each by intrauterine route once (Patient not taking: Reported on 07/13/2022), Disp: , Rfl: predniSONE (DELTASONE) 20 mg tablet, Take 2 tablets (40 mg) by mouth daily for 5 days, Disp: 10 tablet, Rfl: 0 Allergies Allergen Reactions Acetazolamide Swollen tongue Tongue [...] Nausea And Vomiting Physical Exam: Vitals BP 108/68 (BP Location: Left arm, Patient Position: Sitting) Pulse 54 Temp 36.7 ??C (98.1 ??F) Ht 170.2 cm (5' 7 ) Wt 121.3 kg (267 lb 6.4 oz) SpO2 100% BMI 41.88 kg/m?? Physical Exam Vitals reviewed. HENT: Right Ear: Tympanic membrane normal. Left Ear: Tympanic membrane normal. Nose: Rhinorrhea present. No congestion. Eyes: Pupils: Pupils are equal, round, and reactive to light. Cardiovascular: Rate and Rhythm: Normal rate and regular rhythm. Pulmonary: Effort: Pulmonary effort is normal. No respiratory distress. Breath sounds: Normal breath sounds. No wheezing. Abdominal: General: Abdomen is flat. Bowel sounds are normal. Palpations: Abdomen is soft. Tenderness: There is no abdominal tenderness. Skin: General: Skin is warm and dry. Findings: No rash. Neurological: Mental Status: She is alert and oriented to person, place, and time. Assessment and Plan: Jud Leung is a 31 y.o. year old female with asthma and allergic rhinitis. The patient has a history of asthma. She will continue breztri 2 puffs twice a day and albuterol asneeded. She did not have expiratory wheezes, but she had some dyspnea on exertion in the office today. I sent prednisone 40 mg x 5 days to her pharmacy. She will use albuterol twice a day for the next 3 days. With continued symptoms, she will seek emergent medical care. Otherwise, she has a follow-up with Dr. García next week. The patient has a history of allergic rhinitis. She will continue her Flonase 2 sprays twice a day and Arianna 1 to 2 times a day. In the future, she can consider allergy immunotherapy. Patient received the following instruction(s) and verbalized understanding: Arianna 180 mg twice a day Flonase 2 sprays per nostril daily, spray away from center of nose and sniff gently Breztri 2 puffs twice a day Albuterol as needed Prednisone 40 mg x 5 days Visit Diagnoses/Diagnosis: Diagnosis Orders 1. Moderate persistent asthma, unspecified whether complicated predniSONE (DELTASONE) 20 mg tablet 2. Non-seasonal allergic rhinitis due to fungal spores fexofenadine (ARIANNA) 180 mg tablet Follow Up: Return in about 3 months (around 10/13/2022). Orders Placed This Encounter predniSONE (DELTASONE) 20 mg tablet Sig: Take 2 tablets (40 mg) by mouth daily for 5 days Dispense: 10 tablet Refill: 0 fexofenadine (ARIANNA) 180 mg tablet Sig: Take 1 tablet (180 mg total) by mouth 2 (two) times a day Dispense: 180 tablet Refill: 3 Larisa Yuan NP Portions of this note may have been dictated using [employer] (formerly [employer]) Direct speech recognition software. Please excuse any floor inspector errors. documented in this encounter Plan of Treatment [...] this encounter Visit Diagnoses Diagnosis Moderate persistent asthma, unspecified whether complicated- Primary Non-seasonal allergic rhinitis due to fungal spores documented in this encounter Discontinued Medications Medication Sig Discontinue Reason Start Date End Da te fexofenadine (ARIANNA) 180 mg tabletIndications:Reacti ve airway disease without asthma,Allergic reaction, initial encounter TAKE 1 TABLET BY MOUTH EVERY DAY 06/25/2022 07/13/2022 documented as of this encounter Historical Medications * This list may reflect changes made after this encounter. oxyCODONE (ROXICODONE) 5 mg immediate release tablet Take 1 tablet (5 mg total) by mouth every 4 (four) hours as needed 07/12/2022 08/17/2022 magnesium oxide 400 mg magnesium capsule Take 400 mg by mouth daily 02/28/2023 POTASSIUM CHLORIDE ORAL Take by mouth daily 02/28/2023 added in this encounter Care Teams Real Estate Acquisition Analyst Relationship Specialty Start Date End Date Daily Cruz MD PCP - General Family Medicine 03/04/21 documented as of this encounter
--- OUTSIDE RECORDS SUMMARY | 2024-02-21 19:36 | XMS_ITS | Encounter Summary ---
Author Organization [facility] Address [address] [place] [address] Care Team Providers Care Crab Steamer Name Role Phone Daily Cruz MD Primary Care Provider [phone] Reason for Visit * Reason Onset Date Comments CSC/EGD Reschedule 07/06/2022 Encounter Details Date Type Department Care Team (Late st Contact Info) Description 07/06/2022 Telephone [facility] Gastroenterology at [address] [place] [address] Jeffrey Fleming MD [address] [place] [address] [address] [place] [address] CSC/EGD Reschedule Social History Tobacco Use Types Packs/Day Years [...] on file 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 documented in this encounter Plan of Treatment [...] on filedocumented in this encounter Care Teams Crab Steamer Relationship Specialty Start Date End Date Daily Cruz MD PCP - General Family Medicine 03/04/21 documented as of this encounter
--- OUTSIDE RECORDS SUMMARY | 2024-02-21 19:36 | XMS_ITS | Encounter Summary ---
Author Organization [facility] Address [address] [facility] [address] [place] [address] Care Team Providers Care Transmission Repairer Name Role Phone Daily Cruz MD Primary Care Provider [phone] Reason for Visit * Reason Comments Follow-up ER Encounter Details Date Type Department Care Team (Late st Contact Info) Description 05/27/2022 9:30 AM CDT Office Visit [facility] [place] [address] [facility] [address] [place] [id number] Alecia Shaver, SHIPPER [address] [facility] [address] [place] [address] Hypertension, essential (Primary Dx); Bipolar 2 disorder (CMS/HCC) (HCC); Panic attack; Leg swelling Social History Tobacco Use Types Packs/Day Years [...] on file 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 Gender Identity Female 03/02/2020 4:27 PM WATER PLANT PUMP OPERATOR SUPERVISOR Sexual Orientation Straight 07/10/2019 11 :13 PM CDT documented as of this encounter Last Filed Vital Signs Vital Sign Reading Time Taken Comments Blood Pressure 126/80 05/27/2022 9:37 AM CDT Pulse 68 05/27/2022 9:37 AM CDT Temperature 36.7 ??C (98.1 ??F) 05/27/2022 9:37 AM CDT Respiratory Rate - - Oxygen Saturation 99% 05/27/2022 9:37 AM CDT Inhaled Oxygen Concentration - - Weight 117.3 kg (258 lb 9.6 oz) 05/27/2022 9:37 AM CDT Height 170.2 cm (5' 7 ) 05/27/2022 9:37 AM CDT Body Mass Index 40.5 05/27/2022 9:37 AM CDT documented in this encounter Ordered Prescriptions Prescription Sig Dispense Quantity Refills Last Filled Start Date End Date losartan (COZAAR) 100 mg tabletIndications: Hypertension, essential Take 1 tablet (100 mg total) by mouth daily 30 tablet 05/27/2022 06/13/2022 documented in this encounter Progress Notes * Alecia Rendon, SHIPPER - 05/27/2022 9:30 AM CDT Images from the original note were not included. Visit Date: 05/27/2022 Patient ID: Jud Leung is a 31 y.o. female. Chief Complaint(s): Follow-up (ER) HPI: Jud Leung is a 31 y.o. female here today for ER follow up. She was seen in the ER 05/26 with c/o intermittent dizziness and headache. She states that her blood pressure has been intermittently elevated. She has been checking it and is getting readings of 153/93, 126/106, and 133/95. She states that she has been off work for the last 2 days and now her blood pressure is normal. She states that her job is stressful and gives her a lot of anxiety at times. She also states that she has hx of bipolar and anxiety and has not been able to find a medication that works well for her. She has failed Zoloft, celexa, wellbutrin, effexor, cymbalta, vraylar and now Rexulti. She only took Rexulti for 1 week and states she gained 20lbs during that time. She also has hx of lymphedema but is currently not taking lasix because she has been having worsening leg cramping. She states that her legs are less swollen today than that have been in a while. Current Outpatient Medications Medication Sig Dispense Refill dadmuwolqvizf-pwshfui-tzxoucwo (EXCEDRIN MIGRAINE) 250-250-65 mg per tablet Take 1 tablet by mouth every 6 (six) hours as needed albuterol 2.5 mg /3 mL (0.083 %) nebulizer solution Take 3 mL (2.5 mg total) by nebulization every 6 (six) hours as needed for wheezing 75 mL 0 ALPRAZolam (XANAX) 0.5 mg tablet Take 1 tablet (0.5 mg total) by mouth daily as needed for anxiety 30 tablet 0 brexpiprazole (Rexulti) 0.5 mg tablet Take 1 tablet (0.5 mg total) by mouth daily 30 tablet 0 tkteqefzik-veqbzkvh-qotrdcomxi (Breztri Aerosphere) 160-9-4.8 mcg/actuation HFA aerosol inhaler INHALE 2 PUFFS TWICE A DAY 10.7 g 1 ergocalciferol (VITAMIN D) 50,000 unit capsule Take 1 capsule (50,000 Units total) by mouth once a week 4 capsule 5 fexofenadine (ARIANNA) 180 mg tablet TAKE 1 TABLET BY MOUTH EVERY DAY 30 tablet 0 fluticasone propionate (FLONASE) 50 mcg/actuation nasal spray Administer 2 sprays into each nostrildaily (Patient taking differently: Administer 2 sprays into each nostril 2 (two) times a day) 48 mL1 furosemide (LASIX) 40 mg tablet Take 1 tablet (40 mg total) by mouth daily 90 tablet 4 galcanezumab-gnlm (Emgality Pen) 120 mg/mL pen injector Inject 120 mg under the skin every 30 (thirty) days 1 mL 5 hydrocortisone 2.5 % ointment Apply topically 2 [...] or in the groin 454 g 2 albuterol HFA (PROVENTIL HFA,VENTOLIN HFA,PROAIR HFA) 90 mcg/actuation inhaler Inhale 2 puffs 4 (four) times a day for 5 days Use only as needed after those 5 days 6.7 each 1 famotidine (PEPCID) 40 mg tablet Take 1 tablet (40 mg total) by mouth daily 30 tablet 0 losartan (COZAAR) 100 mg tablet Take 1 tablet (100 mg total) by mouth daily 30 tablet 0 No current facility-administered medications for this visit. Allergies as of 05/27/2022 - Reviewed 05/27/2022 Allergen Reaction Noted Acetazolamide Swollen tongue 01/04/2016 [...] cough, shortness of breath and wheezing. Cardiovascular: Positive for leg swelling. Negative for chest pain and palpitations. Gastrointestinal: Negative for abdominal pain, constipation and diarrhea. Neurological: Positive for dizziness and headaches. Psychiatric/Behavioral: Negative for dysphoric mood and suicidal ideas. The patient is nervous/anxious and is hyperactive. Physical Examination: Vitals: 05/27/22 0937 BP: 126/80 Pulse: 68 Temp: 36.7 ??C (98.1 ??F) SpO2: 99% Weight: 117.3 kg (258 lb 9.6 oz) Height: 170.2 cm (5' 7 ) Physical Exam Vitals reviewed. Constitutional: Appearance: Normal appearance. Cardiovascular: Rate and Rhythm: Normal rate and regular rhythm. Pulses: Normal pulses. Heart sounds: Normal heart sounds. Pulmonary: Effort: Pulmonary effort is normal. Breath sounds: Normal breath sounds. Abdominal: General: Bowel sounds are normal. Palpations: Abdomen is soft. Musculoskeletal: General: Normal range of motion. Right lower le+ Edema present. Left lower le+ Edema present. Neurological: Mental Status: She is alert and oriented to person, place, and time. Psychiatric: Mood and Affect: Mood normal. Behavior: Behavior normal. Results Reviewed: No results found for this or any previous visit (from the past 2 hour(s)). Admission on 05/26/2022, Discharged on 05/26/2022 Component Date Value WBC 05/26/2022 10.0 (H) Hgb 05/26/2022 13.1 Hct 05/26/2022 40.1 Plt 05/26/2022 312 MPV 05/26/2022 10.3 RBC 05/26/2022 4.48 MCV 05/26/2022 89.5 MCH 05/26/2022 29.2 MCHC 05/26/2022 32.7 RDW CV 05/26/2022 14.6 RDW SD 05/26/2022 47.5 NRBC abs 05/26/2022 0.00 Sodium 05/26/2022 140 Potassium, pl 05/26/2022 4.1 Chloride 05/26/2022 104 CO2 05/26/2022 26 Anion gap 05/26/2022 10 BUN 05/26/2022 13 Creatinine 05/26/2022 0.80 Glucose 05/26/2022 100 Calcium 05/26/2022 9.8 Bilirubin, total 05/26/2022 0.3 Protein, pl 05/26/2022 7.6 Albumin 05/26/2022 4.3 Alk phos 05/26/2022 99 ALT 05/26/2022 10 AST 05/26/2022 9 (L) Ventricular Rate EKG/Min 05/26/2022 78 Atrial Rate 05/26/2022 78 NC-Interval (MSEC) 05/26/2022 154 QRS-Interval (MSEC) 05/26/2022 88 QT-Interval (MSEC) 05/26/2022 380 QTc 05/26/2022 433 P [place] 05/26/2022 8 R [place] 05/26/2022 -2 T [place] 05/26/2022 19 Diagnosis 05/26/2022 Value:Normal sinus rhythm with sinus arrhythmia Voltage criteria for left ventricular hypertrophy Abnormal ECG No previous ECGs available Trop T hs 05/26/2022 <6 Color, ur 05/26/2022 Yellow Clarity, ur 05/26/2022 Clear Specific gravity, ur 05/26/2022 1.016 pH, urine 05/26/2022 6.0 Protein, ur ql 05/26/2022 Negative Glucose, ur ql 05/26/2022 Negative Ketones, ur 05/26/2022 Negative Bilirubin, ur 05/26/2022 Negative Blood, ur 05/26/2022 1+ (A) Urobilinogen, ur 05/26/2022 <2.0 Nitrite, ur 05/26/2022 Negative Leukocyte esterase, ur 05/26/2022 1+ (A) UA reflex comment 05/26/2022 Reflex to microscopic UA will be performed. HCG, ur, POC 05/26/2022 Negative Lot Number 05/26/2022 [id number] QC Backgroud Clear 05/26/2022 Acceptable QC Control Line 05/26/2022 Acceptable NT-proBNP 05/26/2022 84 Neutrophil abs 05/26/2022 6.6 (H) Imm gran abs 05/26/2022 0.0 Lymphocyte abs 05/26/2022 2.8 Monocyte abs 05/26/2022 0.5 Eosinophil abs 05/26/2022 0.1 Basophil abs 05/26/2022 0.1 Neutrophil pct 05/26/2022 66.4 Imm gran pct 05/26/2022 0.3 Lymphocyte pct 05/26/2022 27.6 Monocyte pct 05/26/2022 4.7 Eosinophil pct 05/26/2022 0.5 Basophil pct 05/26/2022 0.5 Trop T hs 05/26/2022 <6 Trop T hs delta 05/26/2022 0 Trop T hs interp 05/26/2022 Insignificant WBC, ur 05/26/2022 0-5 RBC, ur 05/26/2022 3-5 (A) Epithelial cells, squamo* 05/26/2022 1-5 Mucous, ur 05/26/2022 Present (A) Culture Reflex Comment 05/26/2022 Reflex conditions for urine culture (WBC >10) not met. eGFR 05/26/2022 102 D-Dimer 05/26/2022 430 PT 05/26/2022 13.9 INR 05/26/2022 1.1 aPTT 05/26/2022 35 Assessment/Plan Diagnoses and all orders for this visit: Hypertension, essential (I10) (Primary) Comments: New. Start losartan 50mg daily. Continue to monitor BP daily. Follow up in 2 weeks. Orders: - losartan (COZAAR) 100 mg tablet; Take 1 tablet (100 mg total) by mouth daily Bipolar 2 disorder (CMS/HCC) (HCC) (F31.81) Comments: Continue PRN Xanax for anxiety. Referral to psychiatry placed. Orders: - Ambulatory referral to Psychiatry; Future Panic attack (F41.0) Comments: Continue PRN Xanax for anxiety. Referral to psychiatry placed. Orders: - Ambulatory referral to Psychiatry; Future Leg swelling (M79.89) Comments: Restart Lasix. Start magnesium 400mg daily for muscle cramps. Return in about 2 weeks (around 06/10/2022) for Recheck. Alecia Rendon NP documented in [...] Diagnosis Hypertension, essential- Primary Unspecified essential hypertension Bipolar 2 disorder (CMS/HCC) (HCC) Other bipolar disorders Panic attack Panic disorder without agoraphobia Leg swelling Swelling of limb documented in this encounter Care Teams Transmission Repairer Relationship Specialty Start Date End Date Daily Cruz MD PCP - General Family Medicine 03/04/21 documented as of this encounter
--- OUTSIDE RECORDS SUMMARY | 2024-02-21 19:36 | XMS_ITS | Encounter Summary ---
Author Organization 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 Gender Identity Female 03/02/2020 4:27 PM MERCHANDISE EXAMINER Sexual Orientation Straight 07/10/2019 11 :13 [...] mg tabletIndications :Panic attack,Bipolar 2 disorder (CMS/HCC) ([facility]) TAKE 1 TABLET BY MOUTH EVERY DAY [...] Procedure Name Priority Date/Time Associated Diagnosis Comments INFLUENZA A/B AND RSV PCR Routine 07/15/2022 8:00 PM CDT Acute cough documented in this encounter Results * Influenza A/B and RSV PCR Nasopharyngeal (07/15/2022 8:00 PM CDT) Influenza A RNA Negative Negative [facility] Influenza B RNA Negative Negative [facility] RSV RNA Negative Negative [facility] Comment: Interpretive Data Testing performed by the [facility] Molecular Infectious Disease Laboratory. ??This test is performed using the [employer] Influenza A/B and RSV Assay. ??This is a real-time RT-PCR test for the qualitative detection of nucleic acid from Influenza A, Influenza B, and RSV. ??This assay has been cleared by the FDA for routine clinical use. ??The performance characteristics have been verified by the [facility]. ?? Results should be interpreted in combination with clinical context and a negative result does not rule out infection. Interpretive data last revised 2020. Nasopharyngeal 07/15/2022 8: 00 PM CDT 07/15/2022 10:51 PM CDT [facility] MICROBIOLOGY - GENERAL O RDERABLES Final Result [facility] Department [place] [address] documented in this encounter Visit Diagnoses Diagnosis Acute cough documented in this encounter Additional Health Concerns Infection Onset Date Last Indicated Resolved Time COVID: Suspected 07/15/2022 07/15/2022 07/16/2022 3:05 AM CDT documented as of this encounter Care Teams Cafeteria Table Attendant Relationship Specialty Start Date End Date Daily Cruz MD PCP - General Family Medicine 03/04/21 documented as of this encounter
--- OUTSIDE RECORDS SUMMARY | 2024-02-21 19:37 | XMS_ITS | Encounter Summary ---
Author Organization 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 Family Medicine at [facility] [address] [facility] [address] [place] [address] Daily Cruz MD [address] [place] [address] [phone] Pure hypercholesterolemia (Primary Dx); Acute bilateral low back pain without sciatica; Well adult exam; Hyperglycemia Social History Tobacco Use Types Packs/Day Years Used Date Smoking Tobacco: Never Smokeless Tobacco: Never Alcohol Use Standard Drinks/Week Comments Not Currently 0 (1 standard drink = 0.6 oz pure alcohol) Maybe a drink every few months AUDIT-C Answer Date Recorded Q1: How often do you have a drink containing alc ohol? Monthly or less 07/20/2021 Q2: How many drinks containi ng alcohol do you have on a typical day when you are drinking? 1 or 2 07/20/2021 Q3: How often do you have si x or more drinks on one occasion? 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[employer]IC Sexual Orientation Straight 07/10/2019 11 :13 PM CDT documented as of this encounter Last Filed Vital Signs Vital Sign Reading Time Taken Comments Blood Pressure 118/76 09/27/2021 1:35 PM CDT Pulse 60 09/27/2021 1:35 PM CDT Temperature 36.1 ??C (97 ??F) 09/27/2021 1:35 PM CDT Respiratory Rate 18 09/27/2021 1:35 PM CDT Oxygen Saturation 96% 09/27/2021 1:35 PM CDT Inhaled Oxygen Concentration - - Weight 113.4 kg (250 lb) 09/27/2021 1:35 PM CDT Height 170.2 cm (5' 7 ) 09/27/2021 1:35 PM CDT Body Mass Index 39.16 09/27/2021 1:35 PM CDT documented in this encounter Patient Instructions * Attachments The following attachments cannot be sent through Care Everywhere. * Acute Low Back Pain (Residence Life Director) (H[place]er) documented in this encounter Ordered Prescriptions Prescription Sig Dispense Quantity Refills Last Filled Start Date End Date oxyCODONE-acetaminop hen (PERCOCET) 5-325 mg per tabletIndications:Pa in Take 1 tablet by mouth every 8 (eight) hours as needed for pain Do not exceed 8 tablets per day. 30 tablet 09/27/2021 2 ondansetron ODT (ZOFRAN-ODT) 4 mg disintegrating tabletIndications:Ac sun'aq bilateral low back pain without sciatica Take 1 tablet (4 mg total) by mouth every 8 (eight) hours as needed for nausea or vomiting 20 tablet 09/27/2021 2 ibuprofen (ADVIL,MOTRIN) 800 mg tabletIndications:Ac sun'aq bilateral low back pain without sciatica Take 1 tablet (800 mg total) by mouth 3 (three) times a day 90 tablet 09/27/2021 4 dexAMETHasone (DECADRON) 2 mg tabletIndications:Ac sun'aq bilateral low back pain without sciatica 2 tab BID x 3 days, 1 tab BID x 3 days, 1 tab qd x2 days, 1/2 tab qd x 2 days 21 tablet 09/27/2021 2 documented in this encounter Progress Notes * Daily Cruz MD - 09/27/2021 1:15 PM CDT Images from the original note were not included. Patient ID: Jud Leung is a 31 y.o. female. Visit Date: 09/27/2021 Chief Complaint Low back pain HPI Yesterday tripped on chair and fell. Had injured left foot. Went to the ER. Then after got back from the ER had severe low back pain across low back. No pain or numbness into legs Fall Associated symptoms include headaches and tingling. Pertinent negatives include no abdominal pain, bowel incontinence, fever or numbness. Back Pain This is a new problem. The current episode started yesterday. The problem occurs constantly. The problem has been rapidly worsening since onset. The pain is present in the gluteal and sacro-iliac. The quality of the pain is described as aching, shooting and stabbing. The pain does not radiate. The pain is at a severity of 10/10. The pain is the same all the time. The symptoms are aggravated by bending, coughing, position, sitting, standing, stress and twisting. Stiffness is present all day. Associated symptoms include headaches, tingling and weakness. Pertinent negatives include no abdominal pain, bladder incontinence, bowel incontinence, chest pain, dysuria, fever, leg pain, numbness, paresis, paresthesias, pelvic pain, perianal numbness or weight loss. Risk factors include obesity and recent trauma. Current Outpatient Medications: ??? acetaminophen (TYLENOL) 500 mg tablet, Take 1,000 mg by mouth every 6 (six) hours as needed forpain, Disp: , Rfl: ??? albuterol 2.5 mg /3 mL (0.083 %) nebulizer solution, Take 3 mL (2.5 mg total) by nebulization every 6 (six) hours as needed for wheezing, Disp: 75 mL, Rfl: 0 ??? albuterol HFA (PROVENTIL HFA,VENTOLIN HFA,PROAIR HFA) 90 mcg/actuation inhaler, INHALE 2 PUFFS EVERY 6 HOURS NEEDED FOR WHEEZING, Disp: 6.7 each, Rfl: 1 ??? budesonide-formoteroL (SYMBICORT) 160-4.5 mcg/actuation inhaler, Inhale 2 puffs 2 (two) times aday Rinse mouth with water after use. Do not swallow., Disp: 1 each, Rfl: 1 ??? famotidine (PEPCID) 40 mg tablet, Take 1 tablet (40 mg total) by mouth daily, Disp: 30 tablet, Rfl: 0 ??? fluticasone propionate (FLONASE) 50 mcg/actuation nasal spray, Administer 2 sprays into each nostril daily (Patient taking differently: Administer 2 sprays into each nostril as needed), Disp: 16 g, Rfl: 0 ??? furosemide (LASIX) 20 mg tablet, TAKE 1 TABLET BY MOUTH EVERY DAY, Disp: 30 tablet, Rfl: 2 ??? galcanezumab-gnlm (Emgality Pen) 120 mg/mL pen injector, Inject 120 mg under the skin every 30 (thirty) days (Patient taking differently: Inject 120 mg under the skin every 30 (thirty) days), Disp: 1 mL, Rfl: 0 ??? levocetirizine (XYZAL) 5 mg tablet, Take 1 tablet (5 mg total) by mouth daily, Disp: 30 tablet,Rfl: 0 ??? levonorgestreL (KYLEENA) IUD, 1 each by intrauterine route once , Disp: , Rfl: ??? SUMAtriptan (IMITREX) 50 mg tablet, TAKE 1 TABLET BY MOUTH ONCE NEEDED FOR MIGRAINE. MAY REPEAT DOSE AFTER 2 HOURS (Patient taking differently: Take 50 mg by mouth once as needed), Disp: 9 tablet, Rfl: 0 ??? triamcinolone (KENALOG) 0.1 % cream, Apply topically 2 (two) times a day as needed for rash Do not use on the face or in the groin, Disp: 454 g, Rfl: 2 ??? dexAMETHasone (DECADRON) 2 mg tablet, 2 tab BID x 3 days, 1 tab BID x 3 days, 1 tab qd x2 days,1/2 tab qd x 2 days, Disp: 21 tablet, Rfl: 0 ??? ibuprofen (ADVIL,MOTRIN) 800 mg tablet, Take 1 tablet (800 mg total) by mouth 3 (three) times aday, Disp: 90 tablet, Rfl: 0 ??? ondansetron ODT (ZOFRAN-ODT) 4 mg disintegrating tablet, Take 1 tablet (4 mg total) by mouth every 8 (eight) hours as needed for nausea or vomiting, Disp: 20 tablet, Rfl: 0 ??? oxyCODONE-acetaminophen (PERCOCET) 5-325 mg per tablet, Take 1 tablet by mouth every 8 (eight) hours as needed for pain Do not exceed 8 tablets per day., Disp: 30 tablet, Rfl: 0 Review of Systems Constitutional: Negative for fatigue, fever and weight loss. HENT: Negative for congestion, ear pain, nosebleeds and rhinorrhea. Eyes: Negative for pain and redness. Respiratory: Negative for cough and shortness of breath. Cardiovascular: Negative for chest pain and palpitations. Gastrointestinal: Negative for abdominal pain, bowel incontinence and diarrhea. Endocrine: Negative for cold intolerance. Genitourinary: Negative for bladder incontinence, dysuria, frequency and pelvic pain. Musculoskeletal: Positive for back pain. Negative for arthralgias. Neurological: Positive for tingling, weakness and headaches. Negative for dizziness, numbness and paresthesias. Hematological: Does not bruise/bleed easily. Psychiatric/Behavioral: Negative for behavioral problems and confusion. BP 118/76 (BP Location: Right arm, Patient Position: Sitting) Pulse 60 Temp 36.1 ??C (97 ??F) (Temporal) Resp 18 Ht 170.2 cm (5' 7 ) Wt 113.4 kg (250 lb) LMP 09/19/2021 (Exact Date) SpO2 96% BMI 39.16 kg/m?? Body mass index is 39.16 kg/m??. Physical Exam Constitutional: Appearance: She is [...] Normal range of motion and neck supple. Comments: Left foot in brace Skin: General: Skin is warm and dry. Neurological: Mental Status: She is alert and oriented to person, place, and time. Cranial Nerves: No cranial nerve deficit. Psychiatric: Behavior: Behavior normal. EXAM DESCRIPTION: XR FOOT LEFT 3 OR MORE VIEWS REASON FOR STUDY: pain ?? Fell/stepped hard onto L foot today, mainly lateral, some medial ankle pain since. Pt states pain shoots down lateral side of left foot as well. Previous bunion surgeries. TECHNIQUE: AP, lateral and oblique radiographic views acquired of the left foot. ?? COMPARISON: Comparison 10/05/2020. ? FINDINGS: BONES/JOINTS: No acute fracture, malalignment or osseous abnormalities. Joint spaces are maintained. ? SOFT TISSUES: Unremarkable. ? OTHER: Stable fusion hardware at the base of the 1st and 2nd tarsometatarsal joint. ? IMPRESSION: No acute osseous abnormality. ??EXAM DESCRIPTION: XR ANKLE LEFT 3 OR MORE VIEWS REASON FOR STUDY: pain ?? Fell/stepped hard onto L foot today, pain since. Lateral ankle pain and swelling, some medial ankle pain. Pain shoots down lateral side of L foot. Previous bunion surgeries. TECHNIQUE: AP, lateral, and oblique radiographic views acquired of the left ankle. ?? COMPARISON: Comparison ankle films from 10/05/2020. ? FINDINGS: BONES/JOINTS: No acute fracture, malalignment or osseous abnormalities. Joint spaces are maintained. ? SOFT TISSUES: Lateral soft tissue swelling. ? OTHER: Fusion hardware at the base of the 1st and 2nd carpometacarpal region. Calcaneal enthesophytes. ? IMPRESSION: No acute osseous abnormality. Previous stable fusion hardware at the base of the 1st and 2nd tarsometatarsal joint. Diagnoses and all orders for this visit: Pure hypercholesterolemia (Primary) - TSH reflex to free T4; Future - Hemoglobin A1c; Future - Comprehensive metabolic panel; Future - Lipid panel; Future - CBC with auto differential; Future Acute bilateral low back pain without sciatica - TSH reflex to free T4; Future - Hemoglobin A1c; Future - Comprehensive metabolic panel; Future - Lipid panel; Future - CBC with auto differential; Future - dexAMETHasone (DECADRON) 2 mg tablet; 2 tab BID x 3 days, 1 tab BID x 3 days, 1 tab qd x2 days, 1/2 tab qd x 2 days - ibuprofen (ADVIL,MOTRIN) 800 mg tablet; Take 1 tablet (800 mg total) by mouth 3 (three) times a day - ondansetron ODT (ZOFRAN-ODT) 4 mg disintegrating tablet; Take 1 tablet (4 mg total) by mouth every 8 (eight) hours as needed for nausea or vomiting - ketorolac (TORADOL) 60 mg/2 mL intramuscular injection 60 mg - oxyCODONE-acetaminophen (PERCOCET) 5-325 mg per tablet; Take 1 tablet by mouth every 8 (eight) hours as needed for pain Do not exceed 8 tablets per day. Well adult exam - TSH reflex to free T4; Future - Hemoglobin A1c; Future - Comprehensive metabolic panel; Future - Lipid panel; Future - CBC with auto differential; Future Hyperglycemia - TSH reflex to free T4; Future - Hemoglobin A1c; Future - Comprehensive metabolic panel; Future - Lipid panel; Future - CBC with auto differential; Future Daily Cruz MD documented in this [...] documented as of this encounter Results * (ABNORMAL) CBC with auto differential (09/27/2021 3:06 PM CDT) [facility] WBC 14.6(H) 3.8 - 9.9 K/cumm [facility] Hgb 12.5 11.9 - 15.5 g/dL [facility] Hct 38.5 35.6 - 45.5 % [facility] Plt 371 150 - 400 K/cumm [facility] MPV 10.2 9.1 - 12.3 fL [facility] RBC 4.24 3.90 - 5.20 M/cumm [facility] MCV 90.8 81.3 - 96.4 fL [facility] MCH 29.5 27.1 - 33.3 pg [facility] MCHC 32.5 32.3 - 35.7 g/dL [facility] RDW CV 14.9 11.1 - 14.9 % [facility] RDW SD 50.2(H) 35.7 - 48.1 fL [facility] NRBC abs 0.00 0.00 - 0.01 K/cumm [facility] Blood 09/27/2021 3:06 PM CDT 09/27/2021 3:27 PM CDT us Daily Cruz MD LAB BLOOD ORDERABLES Karen prater Result [facility] [address] [facility] Department [place] [address] * Lipid panel (09/27/2021 3:06 PM CDT) Cholesterol 190 30 - 199 mg/dL [facility] Comment: Interpretive [...] Data was last revised on 2017. Triglycerides 65 <=149 mg/dL [facility] Comment: Interpretive Data Ages [...] Data was last revised on 2017. HDL 57 >=40 mg/dL [facility] Comment: Interpretive Data Ages [...] was last revised on 2017. LDL, calculated 120 <=129 mg/dL [facility] Comment: Interpretive Data Ages [...] was last revised on 2017. Non-HDL Cholesterol 133 mg/dL [facility] Comment: Interpretive Data Ages < or = [...] last revised on 2017. Chol/HDL ratio 3 [facility] Blood 09/27/2021 3:06 PM CDT 09/27/2021 3:27 PM CDT us Daily Cruz MD LAB BLOOD ORDERABLES Karen l Result [facility] [address] [facility] [place] [address] * (ABNORMAL) Comprehensive metabolic panel (09/27/2021 3:06 PM CDT) Pathologist [facility] Sodium 138 135 - 145 mmol/L [facility] Potassium, pl 4.3 3.3 - 4.9 mmol/L [facility] Chloride 103 97 - 110 mmol/L [facility] CO2 25 22 - 32 mmol/L [facility] Anion gap 10 2 - 15 mmol/L [facility] BUN 17 8 - 25 mg/dL [facility] Creatinine 0.90 0.60 - 1.10 mg/dL [facility] Glucose 92 70 - 199 mg/dL [facility] Comment: Interpretive Data Fasting glucose >/= 126 [...] classification and Diagnosis of Diabetes Diabetes Care 2017;40 (Suppl. 1):S11. Current interpretive data was last revised 2016. Calcium 9.3 8.5 - 10.3 mg/dL [facility] Bilirubin, total <0.2 0.1 - 1.2 mg/dL [facility] Protein, pl 7.1 6.5 - 8.5 g/dL [facility] Albumin 4.1 3.5 - 5.0 g/dL [facility] Alk phos 90 40 - 130 Units/L [facility] ALT 8 7 - 45 Units/L [facility] AST 7(L) 10 - 45 Units/L [facility] Blood 09/27/2021 3:06 PM CDT 09/27/2021 3:27 PM CDT Daily Cruz MD LAB BLOOD ORDERABLES Karen l Result Performing Organization Address City/[facility] de Phone Number [facility] [address] [facility] [place] [address] * Hemoglobin A1c (09/27/2021 3:06 PM CDT) [facility] Hgb A1C 5.4 4.0 - 5.6 % [facility] Estimated Average Glucose 108 mg/dL [facility] Comment: The ADA recommends reporting an estimated Average Glucose (eAG) with all Hemoglobin A1c results using the equation derived from a study of 507 normal and diabetic adults. ??Minority populations were underrepresented and children were not included. ?? (Diabetes Care 31:5478-1384, 2008). ??The eAG is not equivalent to a fasting glucose. Blood 09/27/2021 3:06 PM CDT 09/27/2021 3:27 PM CDT Daily Cruz MD LAB BLOOD ORDERABLES Karen l Result Performing Organization Address City/[facility] Co de Phone Number [facility] [address] [facility] [place] [address] * TSH reflex to free T4 (09/27/2021 3:06 PM CDT) TSH 1.16 0.30 - 4.20 mcIUnit/mL [facility] Blood 09/27/2021 3:06 PM CDT 09/27/2021 3:27 PM CDT us Daily Cruz MD LAB BLOOD ORDERABLES Karen l Result [facility] [place] [address] documented in this encounter Visit Diagnoses Diagnosis Pure hypercholesterolemia- Primary Acute bilateral low back pain without sciatica Well adult exam Routine general medical examination at a health care facility Hyperglycemia Other abnormal glucose documented in this encounter Administered Medications Inactive Administered Medications - up to 3 most recent administrations Medication Order MAR Action Action Date Dose Rate Site ketorolac (TORADOL) 60 mg/2 mL intramuscular injection 60 mg 60 mg, intramuscular, Once, On 09/27/21 at 1500, For 1 doseIndications:Acute bilateral low back pain without sciatica Given 09/27/2021 2:21 PM CDT 60 mg Left Ventrogluteal documented in this encounter Discontinued Medications Medication Sig Discontinue Reason Start Date End Da te predniSONE (DELTASONE) 10 mg tablet Take 4 tablets by mouth x 3 days. Then take 3 tablets by mouth x 3 d. Then take 2 tablets by mouth x 3 d. Then take 1 tablet by mouth x 3 d. 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
--- OUTSIDE RECORDS SUMMARY | 2024-02-21 19:37 | XMS_ITS | Encounter Summary ---
Author Organization [facility] Address [address] [place] [address] Phone Care Team Providers Care Payable Processor Name Role Phone Daily Cruz MD Primary Care Provider [phone] [phone] Reason for Visit * Reason Comments Follow-up Encounter Details Date Type Department Care Team (Late st Contact Info) Description 03/02/2022 2:00 PM SUPERINTENDENT TERMINAL Office Visit [facility] Allergy and Immunology [address] [facility] [address] [place] [address] Larisa Yuan NP [address] [facility] [address] [place] [address] Rash (Primary Dx); Seasonal allergic rhinitis due to pollen; Moderate persistent asthma without complication Social History Tobacco Use Types Packs/Day Years Used Date Smoking Tobacco: Never Smokeless Tobacco: Never Alcohol Use Standard Drinks/Week Comments Not Currently 0 (1 standard drink = 0.6 oz pure alcohol) Maybe a drink every few months AUDIT-C Answer Date Recorded Q1: How often do you have a drink containing alcohol? Never 12/22/2021 Q2: How many drinks containi ng alcohol do you have on a typical day when you are drinking? Patient does not drink Q3: How often do you have si x or more drinks on one occasion? Never 12/22/2021 PHQ-2 Answer Date Recorded PHQ-2 Total Score (If total score is 3 or more points, staff should administer the PHQ-9) 0 06/16/2021 Comments No Sex and Gender Information Value Date Recorded Sex Assigned at Not on file Legal Sex Female 3:37 PM SUPERINTENDENT TERMINAL Gender Identity Female 03/02/2020 4:27 PM SUPERINTENDENT TERMINAL Sexual Orientation Straight 07/10/2019 11 :13 PM CDT documented as of this encounter Last Filed Vital Signs Vital Sign Reading Time Taken Comments Blood Pressure 123/80 03/02/2022 2:10 PM SUPERINTENDENT TERMINAL Pulse 75 03/02/2022 2:10 PM SUPERINTENDENT TERMINAL Temperature - - Respiratory Rate 16 03/02/2022 2:10 PM SUPERINTENDENT TERMINAL Oxygen Saturation 99% 03/02/2022 2:10 PM SUPERINTENDENT TERMINAL Inhaled Oxygen Concentration - - Weight 121.1 kg (266 lb 14.4 oz) 03/02/2022 2:10 PM SUPERINTENDENT TERMINAL Height 170.2 cm (5' 7 ) 03/02/2022 2:10 PM SUPERINTENDENT TERMINAL Body Mass Index 41.8 03/02/2022 2:10 PM SUPERINTENDENT TERMINAL documented in this encounter Patient Instructions * Patient Instructions* Larisa Yuan NP - 03/02/2022 2:00 PM SUPERINTENDENT TERMINAL Patient received the following instruction(s) and verbalized understanding: Arianna 180 mg twice a day Ok to take another Arianna or benadryl with increased symptoms. Can use hydrocortisone as needed for her face Flonase 2 sprays per nostril daily, spray away from center of nose and sniff gently Breztri 2 puffs twice a day Albuterol as needed RINTENDENT TERMINAL documented in this encounter Ordered Prescriptions Prescription Sig Dispense Quantity Refills Last Filled Start Date End Date hydrocortisone 2.5 % ointmentIndication s:Rash Apply topically 2 (two) times a day 30 g 03/02/2022 4 documented in this encounter Progress Notes * Larisa Yuan NP - 03/02/2022 2:00 PM CST History of Present Illness: Jud Leung is a 31 y.o. year old female with allergic rhinitis and asthma who presents for a follow up visit. She was last seen in our clinic on 01/19/2022. The patient presents to this visit with a rash. She reports that she waxed her face yesterday. After waxing, she applied facial oil. She has used both these products in the past however, she had not used the oil in the exact same spots. She denies other known triggers. She reports that her face is swollen and itchy. In addition to the rash, she reports other symptoms of eye itchiness, eye swelling, swollen tongue, shortness of breath, and skin that seems to be more sensitive. She also reports that she has daily flushing/warmth to her cheeks. Other symptoms include abdominal pain and worseningmigraine. The patient has a history of allergic rhinitis. Previous skin testing was positive to dust mites, mold, trees, grasses, weeds, cat, and dog. She does not have a cat or dog at home. The patient statesthat she was taking Arianna daily, but ran out 2 weeks ago. Otherwise, she is on Flonase 2 sprays per nostril daily. She is interested in starting allergy immunotherapy. The patient has a history of asthma. She uses breztri 2 puffs twice a day and albuterol as needed. She reports increased shortness of breath. Otherwise, she denies wheezing or nighttime awakening. The patient has gotten 3 doses of the COVID-19 vaccine. She has not gotten a recent booster. She has had COVID-19 twice. She suspects that some of her increased symptoms started after her 1st COVID 19 infection. Patient presents with Chief Complaint Patient presents with Follow-up Review of Systems: A complete review of systems is performed and pertinent positives and negatives are outlined in theHPI. Medical History: Past Medical History: Diagnosis Date ADHD (attention deficit hyperactivity disorder) Anxiety Arthritis Brain concussion 2010, 2009 Chronic bronchitis (CMS/HCC) (HCC) Depression Gastric reflux GERD (gastroesophageal reflux disease) PRN tums IIH (idiopathic intracranial hypertension) Pseudotumor cerebri. reports last spinal tap 2017. 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 on Bumex Memory loss Migraines follows with PCP. reports improved somewhat with fioricet started ~2 weeks ago Motion sickness Obesity Peptic ulceration Reports remote history. PRN tums Pneumonia 12/2019 PONV (postoperative nausea and vomiting) premedicated and scopolamine patch Reactive airway disease PRN albuterol and symbicort, well controlled. Reports albuterol use with URI. Seasonal allergies Seizures (CMS/HCC) (HCC) off medication since 2018 with no further seizure activity, EEG negative SOB (shortness of breath) Patient reports that she has never smoked. She has never used smokeless tobacco. She reports current drug use. Drug: Alcohol. Patient denies consuming alcoholic drinks. Current Outpatient Medications: gbdsqrpkkxdqi-hcjqtfu-ahdofurp (EXCEDRIN MIGRAINE) 250-250-65 mg per tablet, Take [...] FOR WHEEZING, Disp: 6.7 each, Rfl: 1 wonnlqfiuo-uctdfcvn-pgsocswbnp (Breztri Aerosphere) 160-9-4.8 mcg/actuation HFA aerosol inhaler, Inhale 2 puffs 2 (two) times a day, Disp: 10.7 g, Rfl: 0 diclofenac sodium (VOLTAREN) 1 % gel, APPLY 4GRAMS TO AFFECTED AREA 4 TIMES A DAY . MAX 16GM DAILY TO ANY ONE AFFECTED JOINT, Disp: , Rfl: ergocalciferol (VITAMIN D) 50,000 unit capsule, Take 1 capsule (50,000 Units total) by mouth once aweek, Disp: 4 capsule, Rfl: 5 famotidine (PEPCID) 40 mg tablet, Take 1 tablet (40 mg total) by mouth daily, Disp: 30 tablet, Rfl:0 fexofenadine (ARIANNA) 180 mg tablet, Take 1 tablet (180 mg total) by mouth daily, Disp: 30 tablet,Rfl: 0 fluticasone propionate (FLONASE) 50 mcg/actuation nasal spray, Administer 2 sprays into each nostril daily, Disp: 48 mL, Rfl: 1 furosemide (LASIX) 40 mg tablet, Take 1 tablet (40 mg total) by mouth daily, Disp: 90 tablet, Rfl: 4 galcanezumab-gnlm (Emgality Pen) 120 mg/mL pen injector, Inject 120 mg under the skin every 30 (thirty) days, Disp: 1 mL, Rfl: 5 hydrocortisone 2.5 % ointment, Apply topically 2 (two) times a day, Disp: 30 g, Rfl: 0 ibuprofen (ADVIL,MOTRIN) 800 mg tablet, Take 1 tablet (800 mg total) by mouth 3 (three) times a day, Disp: 90 tablet, Rfl: 0 levonorgestreL (KYLEENA) IUD, 1 each by intrauterine route once , Disp: , Rfl: montelukast (SINGULAIR) 10 mg tablet, TAKE 1 TABLET BY MOUTH EVERY DAY AT NIGHT, Disp: 90 tablet, Rfl: 1 tiZANidine (ZANAFLEX) 4 mg tablet, Take 2 mg by mouth every 6 (six) hours as needed for muscle spasms, Disp: , Rfl: triamcinolone (KENALOG) 0.1 % cream, Apply topically 2 (two) times a day as needed for rash Do not use on the face or in the groin, Disp: 454 g, Rfl: 2 Allergies Allergen Reactions Acetazolamide Swollen [...] Nausea And Vomiting Physical Exam: Vitals BP 123/80 Pulse 75 Resp 16 Ht 170.2 cm (5' 7 ) Wt 121.1 kg (266 lb 14.4 oz) SpO2 99% BMI 41.80 kg/m?? Physical Exam Vitals reviewed. HENT: Right Ear: Tympanic membrane normal. Left Ear: Tympanic membrane normal. Nose: No rhinorrhea. Eyes: Pupils: Pupils are equal, round, and reactive to light. Cardiovascular: Rate and Rhythm: Normal rate and regular rhythm. Pulmonary: Effort: Pulmonary effort is normal. Breath sounds: Normal breath sounds. No wheezing. Abdominal: General: Abdomen is flat. Bowel sounds are normal. Palpations: Abdomen is soft. Tenderness: There is no abdominal tenderness. Skin: General: Skin is warm and dry. Findings: Rash present. Rash is papular. Comments: [place] papular rash to bilateral cheeks Neurological: Mental Status: She is alert and oriented to person, place, and time. Assessment and Plan: Jud Leung is a 31 y.o. year old female with allergic rhinitis and asthma. The patient presents to this visit with our a rash. She also complains of symptoms of itching, swelling, and more sensitive skin. The patient also reports daily flushing and warmth. For now, I told the patient to take Arianna 180 mg 2 to 3 times a day. I also sent hydrocortisone 2.5% ointment to apply to her rash. With continued or worsening symptoms, we can discuss starting her on Pepcid twice aday and Singulair daily. She will make a follow-up with Dr. García in a few weeks. The patient has a history of allergic rhinitis. She will continue her Flonase 2 sprays twice a day.She is interested in allergy immunotherapy. I gave her information to ask her insurance if immunotherapy would be covered. She will call our office if she is interested in continuing. The patient has a history of asthma. She will continue breztri 2 puffs twice a day and albuterol asneeded. Patient received the following instruction(s) and verbalized understanding: Arianna 180 mg twice a day Ok to take another Arianna or benadryl with increased symptoms. Can use hydrocortisone as needed for her face Flonase 2 sprays per nostril daily, spray away from center of nose and sniff gently Breztri 2 puffs twice a day Albuterol as needed Visit Diagnoses/Diagnosis: Diagnosis Orders 1. Rash hydrocortisone 2.5 % ointment 2. Seasonal allergic rhinitis due to pollen 3. Moderate persistent asthma without complication Follow Up: Return for next scheduled appointment. Orders Placed This Encounter hydrocortisone 2.5 % ointment Sig: Apply topically 2 (two) times a day Dispense: 30 g Refill: 0 Larisa De Guzman Yuan, OSCAR Portions of this note may have been dictated using M*Modal Fluency Direct speech recognition software. Please excuse any bingo worker errors. RINTENDENT TERMINAL documented in this encounter Plan of Treatment [...] as of this encounter Visit Diagnoses Diagnosis Rash- Primary Rash and other nonspecific skin eruption Seasonal allergic rhinitis due to pollen Moderate persistent asthma without complication documented in this encounter Care Teams Payable Processor Relationship Specialty Start Date End Date Daily Cruz MD PCP - General Family Medicine 03/04/21 documented as of this encounter
--- OUTSIDE RECORDS SUMMARY | 2024-02-21 19:37 | XMS_ITS | Encounter Summary ---
Author Organization [facility] Address [address] [place] [address] Phone Care Team Providers Care Trim Die Maker Name Role Phone Daily Cruz MD Primary Care Provider [phone] Reason for Visit * Reason Comments Pain Encounter Details Date Type Department Care Team (Late st Contact Info) Description 11/04/2021 1:15 PM CDT Office Visit [facility] Orthopaedic Surgery [address] [facility] [address] [facility] [address] 1[address] [place] [address] Miranda Dean DPM [address] [place] [address] Plantar fasciitis (Primary Dx) Social History Tobacco Use Types Packs/Day Years Used Date Smoking Tobacco: Never Smokeless Tobacco: Never Alcohol Use Standard Drinks/Week Comments Not Currently 0 (1 standard drink = 0.6 oz pure alcohol) Maybe a drink every few months AUDIT-C Answer Date Recorded Q1: How often do you have a drink containing alc ohol? Monthly or less 10/26/2021 Q2: How many drinks containi ng alcohol do you have on a typical day when you are drinking? 1 or 2 10/26/2021 Q3: How often do you have si x or more drinks on one occasion? Never 10/26/2021 PHQ-2 Answer Date Recorded PHQ-2 Total Score (If total score is 3 or more points, staff should administer the PHQ-9) 0 06/16/2021 Comments No Sex and Gender Information Value Date Recorded Sex Assigned at Not on file Legal Sex Female 3:37 PM WOODWORKING SHOP LABORER Gender Identity Female 03/02/2020 4:27 PM WOODWORKING SHOP LABORER Sexual Orientation Straight 07/10/2019 11 :13 PM CDT documented as of this encounter Progress Notes * Miranda Dean, DPReji - 11/04/2021 1:15 PM CDT Established Patient Visit HISTORY OF PRESENT ILLNESS The patient is a 31 y.o. year old female who presents relating that her right foot plantar fasciitis has acted up again. She relates that after I saw her last she utilize the Cam walker for about 2 weeks and then discontinue wearing it as the foot was feeling a lot better. She, because the foot is feeling a lot better did not do physical therapy. She relates that she did not go to physical therapy as the foot was feeling so much better. Now she relates that the heel hurts again. She has had some other medical issues since I saw her. She relates that she was recently on a Medrol Dosepak, prednisone and NSAIDs and had some significant rectal bleeding. She is being followed forthis and will be seeing a GI specialist on November 16, 2021 for further treatment. PAST MEDICAL HISTORY Past Medical History: Diagnosis Date ADHD (attention deficit hyperactivity disorder) Anxiety Arthritis Brain concussion 2009 Chronic bronchitis (CMS/HCC) ([facility]) Depression Gastric reflux GERD (gastroesophageal reflux disease) PRN tums IIH (idiopathic intracranial hypertension) Pseudotumor cerebri. reports last spinal tap 2017. 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 Kidney stone 2019 Low back pain Lymphedema [...] negative SOB (shortness of breath) PAST SURGICAL HISTORY Past Surgical History: Procedure Laterality Date ABDOMINAL SURGERY Laparoscopic surgery to remove endometriosis FOOT SURGERY Bilateral 2018 2 left bunion, 1 right bunion- hardware in place left and right foot FOOT SURGERY 07/16/2019 revision left tarsometatarsal joint arthrodesis iliac crest bone graft - Left LAPAROSCOPIC ENDOMETRIOSIS FULGURATION 2018 TONSILLECTOMY WISDOM TOOTH EXTRACTION INITIAL REVIEW OF MEDICATIONS Current Outpatient Medications on File Prior to Visit Medication Sig Dispense Refill acetaminophen (TYLENOL) 500 mg tablet Take 1,000 mg by mouth every 6 (six) hours as needed for pain albuterol 2.5 mg /3 mL (0.083 %) nebulizer solution Take 3 mL (2.5 mg total) by nebulization every 6 (six) hours as needed for wheezing 75 mL 0 albuterol HFA (PROVENTIL HFA,VENTOLIN HFA,PROAIR HFA) 90 mcg/actuation inhaler INHALE 2 PUFFS EVERY6 HOURS NEEDED FOR WHEEZING 6.7 each 1 budesonide-formoteroL (SYMBICORT) 160-4.5 mcg/actuation inhaler Inhale 2 puffs 2 (two) times a day Rinse mouth with water after use. Do not swallow. 1 each 1 ergocalciferol (VITAMIN D) 50,000 unit capsule Take 1 capsule (50,000 Units total) by mouth once a week 4 capsule 5 famotidine (PEPCID) 40 mg tablet Take 1 tablet (40 mg total) by mouth daily 30 tablet 0 fluticasone propionate (FLONASE) 50 mcg/actuation nasal spray Administer 2 sprays into each nostrildaily (Patient taking differently: Administer 2 sprays into each nostril as needed) 16 g 0 furosemide (LASIX) 40 mg tablet Take 1 tablet (40 mg total) by mouth daily 90 tablet 4 galcanezumab-gnlm (Emgality Pen) 120 mg/mL pen injector Inject 120 mg under the skin every 30 (thirty) days 1 mL 5 ibuprofen (ADVIL,MOTRIN) 800 mg tablet Take 1 tablet (800 mg total) by mouth 3 (three) times a day 90 tablet 0 levocetirizine (XYZAL) 5 mg tablet Take 1 tablet (5 mg total) by mouth daily 30 tablet 0 levonorgestreL (KYLEENA) IUD 1 each by intrauterine route once ondansetron ODT (ZOFRAN-ODT) 4 mg disintegrating tablet Take 1 tablet (4 mg total) by mouth every 8(eight) hours as needed for nausea or vomiting 20 tablet 0 oxyCODONE-acetaminophen (PERCOCET) 5-325 mg per tablet Take 1 tablet by mouth every 8 (eight) hoursas needed for pain Do not exceed 8 tablets per day. 30 tablet 0 rimegepant (Nurtec ODT) tablet,disintegrating Take 1 tablet (75 mg total) by mouth daily as needed (headache) 16 tablet 0 SUMAtriptan (IMITREX) 50 mg tablet TAKE 1 TABLET BY MOUTH ONCE NEEDED FOR MIGRAINE. MAY REPEAT DOSE AFTER 2 HOURS (Patient taking differently: Take 50 mg by mouth once as needed) 9 tablet 0 triamcinolone (KENALOG) 0.1 % cream Apply topically 2 (two) times a day as needed for rash Do not use on the face or in the groin 454 g 2 No current facility-administered medications on file prior to visit. DRUG ALLERGIES Allergies Allergen Reactions Acetazolamide Swollen tongue Tongue [...] comments) SEIZURE ACTIVITY Oxycodone-Acetaminophen Nausea And Vomiting SOCIAL HISTORY Social History Tobacco Use Smoking Status Never Smokeless Tobacco Never Alcohol Use: Not At Risk Frequency of Alcohol Consumption: Monthly or less Average Number of Drinks: 1 or 2 Frequency of Binge Drinking: Never FAMILY HISTORY Family History Problem Relation Age of Onset [...] Miscarriages / Stillbirths Mother Vision loss Mother Arthritis Father Hypertension Father Mental illness Father Heart attack Father Depression Father Vision loss Father Stroke Paternal Grandmother Depression Sister Anesthesia problems Neg Hx REVIEW OF SYSTEMS ROS PHYSICAL EXAMINATION She is alert and in no acute distress. Respirations are normal and hearing is intact to spoken word. Patient is ambulatory without assistance. Utilizing tennis shoes Tenderness to palpation right plantar calcaneal tubercle. No pain with medial to lateral calcaneal compression right foot. No swelling pain or tenderness noted Achilles tendon IMPRESSION/DIAGNOSIS Plantar fasciitis; right: Chronic TREATMENT/PLAN Discussion of etiology and treatment. I discussed a variety of possible treatment options. Due to the patient's past history of multiple injections into the right heel would not recommend any additional injections. She relates that she was getting heel injections every 6- 8 weeks for a couple of years. Additionally, due to the recent rectal bleeding which she relates, would not recommend going forward with any oral medication until cleared by GI specialist. Other treatment options offered include: 1. Cam walker immobilization 2. Time off work x 1 month 3. Surgery to address the chronic plantar fasciitis:ESWT. Pamphlet regarding the procedure including preoperative operative and postoperative course was dispensed to the patient today. 4. Physical therapy 2 to 3 times a week for 6 weeks 5. Referral to PM&R for possible evaluation of alternative treatment modalities: Information and referral was given Patient would like to hold off on Cam walker immobilization, time off of work, surgical intervention and physical therapy. She relates that she would like to consider referral to PM&R. She will let me know if she would like to go forward with any other treatment options. Patient verbalizes understanding and is agreeable to this plan going forward. The patient was encouraged to call us if any questions or concerns arise. FOLLOW UP Next visit: As needed Miranda Dean DPM, FACFAS [facility] Dr.Julia Dean is dictating using [employer] Naturally Speaking Software. Base Manager variances may occur. documented in this encounter Plan of Treatment [...] as of this encounter Visit Diagnoses Diagnosis Plantar fasciitis- Primary Plantar fascial fibromatosis documented in this encounter Care Teams Trim Die Maker Relationship Specialty Start Date End Date Daily Cruz MD PCP - General Family Medicine 03/04/21 documented as of this encounter
--- OUTSIDE RECORDS SUMMARY | 2024-02-21 19:37 | XMS_ITS | Encounter Summary ---
Author Organization [facility] Address [address] [place] [address] Phone Care Team Providers Care Academic Affairs Coordinator Name Role Phone Daily Cruz MD Primary Care Provider [phone] [phone] Reason for Visit * Reason Comments Follow-up * Consultation (Routine) - Closed Specialty Diagnoses / Procedures Referred By Contfabian burk Referred To Contact Allergy Diagnoses Allergic reaction to substance Daily Cruz MD Phone: tel: fax: [facility] (All Locations) Referral ID Status Reason Start Date Expiration Date V isits Requested Visits Authorized [id number] Closed Specialty Services Required 09/23/2021 10/23/2022 12 12 Encounter Details Date Type Department Care Team (Latest Contact Info) Description 01/19/2022 3:00 PM SUPERVISOR CHAR HOUSE Office Visit [facility] Allergy and Immunology [address] [place] [address] Hortencia Rivera MD PhD [address] [place] [address] Allergic conjunctivitis of both eyes (Primary Dx); Non-seasonal allergic rhinitis due to fungal spores; Seasonal allergic rhinitis due to pollen; Moderate [...] file Legal Sex Female 3:37 PM SUPERVISOR CHAR HOUSE Gender Identity Female 03/02/2020 4:27 PM SUPERVISOR CHAR HOUSE Sexual Orientation Straight 07/10/2019 11 :13 PM CDT documented as of this encounter Last Filed Vital Signs Vital Sign Reading Time Taken Comments Blood Pressure 139/80 01/19/2022 3:29 PM SUPERVISOR CHAR HOUSE Pulse 74 01/19/2022 3:29 PM SUPERVISOR CHAR HOUSE Temperature 36.7 ??C (98 ??F) 01/19/2022 3:29 PM SUPERVISOR CHAR HOUSE Respiratory Rate 18 01/19/2022 3:29 PM SUPERVISOR CHAR HOUSE Oxygen Saturation 97% 01/19/2022 3:29 PM SUPERVISOR CHAR HOUSE Inhaled Oxygen Concentration - - Weight 118.4 kg (261 lb) 01/19/2022 3:29 PM SUPERVISOR CHAR HOUSE Height 170.2 cm (5' 7 ) 01/19/2022 3:29 PM SUPERVISOR CHAR HOUSE Body Mass Index 40.88 01/19/2022 3:29 PM SUPERVISOR CHAR HOUSE documented in this encounter Ordered Prescriptions Prescription Sig Dispense Quantity Refills Last Filled Start Date End Date nystatin 100,000 unit/mL suspensionIndicatio ns:oral candidiasis Take 5 mL (500,000 Units total) by mouth 4 (four) times a day for 10 days 200 mL 01/19/2022 01/29/2022 documented in this encounter Progress Notes * Hortencia Rivera MD PhD - 01/19/2022 3:00 PM CST Daily Cruz MD, We had the pleasure of seeing Jud Leung today in the Division of Allergy and Immunology at [facility] for routine follow- up. Jud Leung was last seen here on Dec 21. The patient heels a lot better clinically. She feels a lot better few days after initiating treatment with Breztri (2 bid). She gargles but feels she may be getting some valadez. She had throat cough with a lot of PND No urgent care center or emergency room visits. No asthma flare up last months. She did not need touse albuterol for once (after exposure to tobacco smoke). She however feels chest burning moving actively in cold air. She has not tries albuterol to check if her symptoms respond to albuterol. Review of Symptoms: Review of systems has no pertinent positives; otherwise as noted in HPI. Allergies: Acetazolamide, Dihydroergotamine, Hydrochlorothiazide, Nickel, Topiramate, Hydrocodone-acetaminophen, Lamotrigine, Levetiracetam, and Oxycodone-acetaminophen Current Medications: Current Outpatient Medications: jrflnyqdtivle-ytucmgd-ejbamuud (EXCEDRIN MIGRAINE) 250-250-65 mg per tablet, Take [...] FOR WHEEZING, Disp: 6.7 each, Rfl: 1 gfevcnmvum-gnriwnep-zfpqasubms (Breztri Aerosphere) 160-9-4.8 mcg/actuation HFA aerosol inhaler, [...] fluticasone propionate (FLONASE) 50 mcg/actuation nasal spray, SPRAY 2 SPRAYS INTO EACH NOSTRIL EVERY DAY, Disp: 16 mL, Rfl: 1 furosemide (LASIX) 40 mg tablet, Take 1 tablet (40 mg total) by mouth daily, Disp: 90 tablet, Rfl: 4 galcanezumab-gnlm (Emgality Pen) 120 mg/mL pen injector, Inject 120 mg under the skin every 30 (thirty) days, Disp: 1 mL, Rfl: 5 ibuprofen (ADVIL,MOTRIN) 800 mg tablet, Take 1 [...] the groin, Disp: 454 g, Rfl: 2 famotidine (PEPCID) 40 mg tablet, Take 1 tablet (40 mg total) by mouth daily, Disp: 30 tablet, Rfl:0 nystatin 100,000 unit/mL suspension, Take 5 mL (500,000 Units total) by mouth 4 (four) times a day for 10 days, Disp: 200 mL, Rfl: 0 Social History: Patient reports that she has never smoked. She has never used smokeless tobacco. She reports current drug use. Drug: Alcohol. Patient denies consuming alcoholic drinks. No flowsheet data found. Review of Symptoms Review of systems has no pertinent positives, o/w as noted in HPI. Reviewed patient's history form and the review of systems. Physical Exam: BP 139/80 (BP Location: Right arm, Patient Position: Sitting) Pulse 74 Temp 36.7 ??C (98 ??F) (Oral) Resp 18 Ht 170.2 cm (5' 7 ) Wt 118.4 kg (261 lb) SpO2 97% BMI 40.88 kg/m?? General: Patient is well nourished, well developed and in no acute distress. HEENT: Normocephalic, atraumatic, EOMI. + conjunctival injection. Tympanic membranes clear bilaterally. no nasal mucosal pallor and no nasal turbinate enlarged, no reduced nasal air flow, no pharyngeal cobblestoning, + pretonsillar erythema, no exudate, + maxillary sinus tenderness, no thrush lesions noted. Neck: Supple with no lymphadenopathy. Lungs: CTA. No wheezing, no accessory respiratory muscle activity or labored breathing. Cardiovascular: Regular rate and rhythm. No murmur. Skin: no rashes, eczema or swelling Neurological and musculoskeletal: grossly intact Extremities: No clubbing, cyanosis, or edema. Spirometry: FVC: 78%, FEV1 84% , PEFR 107% Laboratory Testing: No results found for this or any previous visit (from the past 336 hour(s)). Impression: (H10.13) Allergic conjunctivitis of both eyes (primary encounter diagnosis) (J30.89) Non-seasonal allergic rhinitis due to fungal spores (J30.1) Seasonal allergic rhinitis due to pollen (J45.40) Moderate persistent asthma without complication Improved but residual symptoms of asthma and nasal allergies. Recommendations: Continue Current treatment. Consider immunotherapy. Follow up: Return in about 3 months (around 04/19/2022). My total encounter time on 01/19/2022 was 30 minutes which was spent in the activities documented inthe note. This includes time spent prior to the visit and after the visit in direct care of the patient. This time does not include time spent in any separately reportable services. Hortencia Rivera MD, PHD [employer] documented in this encounter Plan of Treatment [...] of this encounter Visit Diagnoses Diagnosis Allergic conjunctivitis of both eyes- Primary Other chronic allergic conjunctivitis Non-seasonal allergic rhinitis due to fungal spores Seasonal allergic rhinitis due to pollen Moderate persistent asthma without complication documented in this encounter Care Teams Academic Affairs Coordinator Relationship Specialty Start Date End Date Daily Cruz MD PCP - General Family Medicine 03/04/21 documented as of this encounter
--- OUTSIDE RECORDS SUMMARY | 2024-02-21 19:37 | XMS_ITS | Encounter Summary ---
Author Organization [facility] Address [address] [place] [address] Care Team Providers Care Head Men'S Tennis Coach Name Role Phone Daily Cruz MD Primary Care Provider [phone] [phone] Reason for Visit * Reason Onset Date Comments PA emgality 11/05/2021 Encounter Details Date Type Department Care Team (Late st Contact Info) Description 11/05/2021 Telephone [facility] Family Medicine at [facility] [address] [facility] [address] [place] [address] Daily Cruz MD [address] [place] [address] [address] [place] [address] PA emgality Social History Tobacco Use Types Packs/Day Years Used Date Smoking Tobacco: Never Smokeless Tobacco: Never Alcohol Use Standard Drinks/Week Comments Not Currently 0 (1 standard drink = 0.6 oz pure alcohol) Maybe a drink every few months AUDIT-C Answer Date Recorded Q1: How often do you have a drink containing alc ohol? Monthly or less 11/16/2021 Q2: How many drinks containi ng alcohol do you have on a typical day when you are drinking? 1 or 2 11/16/2021 Q3: How often do you have si x or more drinks on one occasion? Never 11/16/2021 PHQ-2 Answer Date Recorded PHQ-2 Total Score (If total score is 3 or more points, staff should administer the PHQ-9) 0 06/16/2021 Comments No Sex and Gender Information Value Date Recorded Sex Assigned at Not on file Legal Sex Female 3:37 PM WEIGHT ENGINEER Gender Identity Female 03/02/2020 4:27 PM WEIGHT ENGINEER Sexual Orientation Straight 07/10/2019 11 :13 PM CDT documented as of this encounter Miscellaneous Notes * Telephone Encounter - Stefanie Best MA - 12/20/2021 3:24 PM CST PA for emgality was already denied they will cover aimovig with PA HT ENGINEER * Telephone Encounter - Daily Cruz MD - 12/20/2021 12:06 PM WEIGHT ENGINEER Please change to emgality HT ENGINEER * Telephone Encounter - Stefanie Best MA - 12/07/2021 5:22 PM CDT They will cover aimovig with a PA * Telephone Encounter - Daily Cruz MD - 12/01/2021 4:58 PM CDT Is there another preventive headache medication they prefer * Telephone Encounter - Stefanie Best MA - 11/30/2021 5:28 PM CDT PA denied * Telephone Encounter - Stefanie Best MA - 11/05/2021 3:45 PM CDT PA for emgality done Bhakta [id number] Waiting on reply documented in this encounter Plan of Treatment [...] on filedocumented in this encounter Care Teams Head Men'S Tennis Coach Relationship Specialty Start Date End Date Daily Cruz MD PCP - General Family Medicine 03/04/21 documented as of this encounter
--- OUTSIDE RECORDS SUMMARY | 2024-02-21 19:37 | XMS_ITS | Encounter Summary ---
Author Organization [facility] Address [address] [place] [address] Phone Care Team Providers Care Health And Wellness Instructor Name Role Phone Daily Cruz MD Primary Care Provider [phone] [phone] Reason for Referral * Diagnostic Imaging (Routine) - Closed Specialty Diagnoses / Procedures Referred By Matt burk Referred To Contact Diagnoses Right foot pain Procedures XR Foot Right 3+ View Miranda Dean DPM Phone: tel: fax: [facility] [address] [place] [address] Referral ID Status Reason Start Date Expiration Date Visits Re quested Visits Authorized [id number] Closed 08/30/2021 09/29/2022 1 1 Reason for Visit * Reason Comments Pain Encounter Details Date Type Department Care Team (Late st Contact Info) Description 08/30/2021 12:30 PM CDT Office Visit [facility] Orthopaedic Surgery [address] [place] [address] [place] [address] Miranda Dean DPM [address] [place] [address] Plantar fasciitis (Primary Dx); Right foot pain Social History [...] on file Legal Sex Female 3:37 PM TECHNICAL SYSTEM ANALYST Gender Identity Female 03/02/2020 4:27 PM TECHNICAL SYSTEM ANALYST Sexual Orientation Straight 07/10/2019 11 :13 PM CDT documented as of this encounter Progress Notes * Miranda Dean DPM - 08/30/2021 12:30 PM CDT NEW PATIENT VISIT CHIEF COMPLAINT right pain in the foot and plantar fascia. HISTORY OF PRESENT ILLNESS The patient is a 30 y.o. year old female with a complaint of right heel pain. no history of trauma.Pain has been present for A few days which started acutely 3 days ago or so. She states that she went swimming on Monday and that night the foot started hurting.. Pt has tried Ice, lidocaine, motrin stretching exercises, orthotics. Pt relates pain is worse first thing in the morning and after periods of rest. Pt has hx of bunion sx on the right foot and left foot; [address] Mcqueen. PAST MEDICAL HISTORY Past Medical History: Diagnosis Date ??? ADHD (attention deficit hyperactivity disorder) ??? Anxiety ??? Arthritis ??? Brain concussion 2010, 2010 ??? Chronic bronchitis (CMS/HCC) (HCC) ??? Depression ??? Gastric reflux ??? GERD (gastroesophageal reflux disease) PRN tums ??? IIH (idiopathic intracranial hypertension) Pseudotumor cerebri. reports last spinal tap 2018. currently following with PCP, previously has followed with neuro ??? Irritability ??? 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 Kidney stone 2019 ??? Low back [...] with URI. ??? Seasonal allergies ??? Seizures (CMS/HCC) (HCC) off medication since 2018 with no further seizure activity, EEG negative ??? SOB (shortness of breath) PAST SURGICAL HISTORY Past Surgical History: Procedure Laterality Date ??? ABDOMINAL SURGERY Laparoscopic surgery to remove endometriosis ??? FOOT SURGERY Bilateral 2018 2 left bunion, 1 right bunion- hardware in place left and right foot ??? FOOT SURGERY 07/16/2019 revision left tarsometatarsal joint arthrodesis iliac crest bone graft - Left ??? LAPAROSCOPIC ENDOMETRIOSIS FULGURATION 2017 ??? TONSILLECTOMY ??? WISDOM TOOTH EXTRACTION INITIAL REVIEW OF MEDICATIONS Current Outpatient Medications on File Prior to Visit Medication Sig Dispense Refill ??? acetaminophen (TYLENOL) 500 mg tablet Take 1,000 mg by mouth every 6 (six) hours as needed for pain ??? albuterol 2.5 mg /3 mL (0.083 %) nebulizer solution Take 3 mL (2.5 mg total) by nebulization every 6 (six) hours as needed for wheezing 75 mL 0 ??? albuterol HFA (PROVENTIL HFA,VENTOLIN HFA,PROAIR HFA) 90 mcg/actuation inhaler INHALE 2 PUFFS EVERY 6 HOURS NEEDED FOR WHEEZING 6.7 each 1 ??? budesonide-formoteroL (SYMBICORT) 160-4.5 mcg/actuation inhaler Inhale 2 puffs 2 (two) times a day Rinse mouth with water after use. Do not swallow. 1 each 1 ??? fluticasone propionate (FLONASE) 50 mcg/actuation nasal spray Administer 2 sprays into each nostril daily (Patient taking differently: Administer 2 sprays into each nostril as needed) 16 g 0 ??? furosemide (LASIX) 20 mg tablet TAKE 1 TABLET BY MOUTH EVERY DAY 30 tablet 2 ??? galcanezumab-gnlm (Emgality Pen) 120 mg/mL pen injector Inject 120 mg under the skin every 30 (thirty) days (Patient taking differently: Inject 120 mg under the skin every 30 (thirty) days) 1 mL 0 ??? levocetirizine (XYZAL) 5 mg tablet Take 1 tablet (5 mg total) by mouth daily 30 tablet 0 ??? levonorgestreL (KYLEENA) IUD 1 each by intrauterine route once ??? SUMAtriptan (IMITREX) 50 mg tablet TAKE 1 TABLET BY MOUTH ONCE NEEDED FOR MIGRAINE. MAY REPEAT DOSE AFTER 2 HOURS (Patient taking differently: Take 50 mg by mouth once as needed) 9 tablet 0 ??? triamcinolone (KENALOG) 0.1 % cream Apply topically 2 (two) times a day as needed for rash Do not use on the face or in the groin 454 g 2 ??? [DISCONTINUED] tamsulosin (FLOMAX) 0.4 mg extended release capsule Take 1 capsule (0.4 mg total) by mouth daily for 14 days 14 capsule 0 No current facility-administered medications on file prior to visit. DRUG ALLERGIES Allergies Allergen Reactions ??? Acetazolamide Swollen tongue [...] SEIZURE ACTIVITY ??? Oxycodone-Acetaminophen Nausea And Vomiting SOCIAL HISTORY Social History Tobacco Use Smoking Status Never Smoker Smokeless Tobacco Never Used Alcohol Use: Not At Risk ??? Frequency of Alcohol Consumption: Monthly or less ??? Average Number of Drinks: 1 or 2 ??? Frequency of Binge Drinking: Never FAMILY HISTORY [...] Stillbirths Mother ??? Vision loss Mother ??? Arthritis Father ??? Hypertension Father ??? Mental illness Father ??? Heart attack Father ??? Depression Father ??? Vision loss Father ??? Stroke Paternal Grandmother ??? Depression Sister ??? Anesthesia problems Neg Hx REVIEW OF SYSTEMS ROS PHYSICAL EXAMINATION She is alert and in no acute distress. Respirations are normal and hearing is intact to spoken word. There are palpable dorsalis pedis and posterior tibial pulses bilaterally. Pt is ambulatory with pain in the right medial infracalcaneal tubercle of the heel and along the plantar fascia. There is moderate swelling of the infracalcaneal bursa right. There are no skin rashes, open lesions, ulcerations or signs of infection on bilateral lower extremities. Palpable pain plantar medial tubercle of the calcaneus right, Palpable pain medial band of plantar fascia right and Palpable pain central band of plantar fascia right On seated exam, there is intact dorsiflexion, plantar flexion, inversion and eversion b/l lower extremities. Strength is 5 out of 5 throughout bilaterally. Sensation is intact to light touch over both feet. X-rays three views right foot were taken and reviewed and demonstrate: Healed right forefoot/midfoot reconstruction IMPRESSION/DIAGNOSIS PLantar fasciitis; right Bursitis right TREATMENT/PLAN 1.) Discussion of etiology and treatment 2.) Recommended cam walker boot; pt was sized, fitted and dispensed cam walker to mobilize the right lower extremity 3.) Recommend good supportive shoes and avoid going barefooted 3.) Recommended stretching exercises; stretching exercise packet dispensed to the patient and recommen these to be done 2-3 times daily 4.) Prescription for anti inflammatory sent to the pharmacy 5.) Discussed surgical v/s non surgical treatment including surgical release of the plantar fascia v/s [place] procedure for outpatient treatment of plantar fasciitis that does not respond to non surgical treatment after 6 months. 6.) Follow up in 3 weeks for further evlauation and treatment 7.) Pt relates that she has had numerous injections in the heels for plantar fasciitis/bursitis andstates that they do not work and shoe would like to avoid injections going forward. Prescription for physical therapy was dispensed to the patient today. The patient was encouraged to call us if any questions or concerns arise. Miranda Dean DPM, FACFAS [facility] Dr. Miranda Dean dictating using [employer] Speaking Software. Fender Mechanic variances may occur. documented in this encounter [...] Results * XR Foot Right 3+ View (08/30/2021 12:51 PM CDT) Anatomical Region Laterality Modality Lower Extremities, Foot Right Computed Radiography 08/30/2021 2:32 PM CDT Impressions 08/30/2021 5:12 PM CDT 1. ??Healed right forefoot/midfoot reconstruction. Dictated by: Andi Velasco MD The radiology attending physician has personally reviewed this study, and had reviewed and/or edited this written report and agrees with it. Electronically signed by: Harsh Tejada MD Narrative 08/30/2021 5:12 PM CDT EXAMINATION: XR FOOT RIGHT 3 OR MORE VIEWS HISTORY: Right foot pain FINDINGS: 3 weightbearing radiographs of the right facet for interpretation without comparison. Healed right hallux tarsometatarsal arthrodesis with orthogonal plate screw constructs for management of right hallux bunion deformity. ??In addition, there is a single screw transfixing the right hallux proximal phalanx osteotomy. ??Instrumentation is intact. ??Alignment is near-anatomic. ??There are no acute fractures. ??Moderate plantar calcaneal spur. ??Joint spaces are well-maintained. Procedure Note Harsh Tejada MD - 08/30/2021 EXAMINATION: XR FOOT RIGHT 3 OR MORE VIEWS HISTORY: Right foot pain FINDINGS: 3 weightbearing radiographs of the right facet for interpretation without comparison. Healed right hallux tarsometatarsal arthrodesis with orthogonal plate screw constructs for management of right hallux bunion deformity. In addition, there is a single screw transfixing the right hallux proximal phalanx osteotomy. Instrumentation is intact. Alignment is near-anatomic. There are no acute fractures. Moderate plantar calcaneal spur. Joint spaces are well-maintained. IMPRESSION: 1. Healed right forefoot/midfoot reconstruction. Dictated by: Andi Velasco MD The radiology attending physician has personally reviewed this study, and had reviewed and/or edited this written report and agrees with it. Electronically signed by: Harsh Tejada MD Miranda Dean DPM IMG XR PROCEDURES Final Result documented in this encounter Visit Diagnoses Diagnosis Plantar fasciitis- Primary Plantar fascial fibromatosis Right foot pain Pain in soft tissues of limb Right foot pain Pain in soft tissues of limb documented in this encounter Care Teams Health And Wellness Instructor Relationship Specialty Start Date End Date Daily Cruz MD PCP - General Family Medicine 03/04/21 documented as of this encounter
--- OUTSIDE RECORDS SUMMARY | 2024-02-21 19:37 | XMS_ITS | Encounter Summary ---
Author Organization [facility] Address [address] [place] [address] Care Team Providers Care Container Filler Name Role Phone Daily Cruz MD Primary Care Provider [phone] Reason for Visit * Reason Onset Date Comments Prior Auth 06/23/2021 PA on Acyclovir Encounter Details Date Type Department Care Team (Late st Contact Info) Description 06/23/2021 Telephone [facility] Family Medicine [address] [place] [address] [address] [place] [address] Daily Cruz MD [address] [place] [address] Prior Auth (PA on Acyclovir) Social History Tobacco Use Types Packs/Day Years Used Date Smoking Tobacco: Never Smokeless Tobacco: Never Alcohol Use Standard Drinks/Week Comments Not Currently 0 (1 standard drink = 0.6 oz pure alcohol) Maybe a drink every few months AUDIT-C Answer Date Recorded Q1: How often do you have a drink containing alc ohol? Never 10/20/2020 Q2: How many drinks containi ng alcohol do you have on a typical day when you are drinking? 1 or 2 10/20/2020 Q3: How often do you have six or more drinks on one occasion? Never 10/20/2020 PHQ-2 Answer Date Recorded PHQ-2 Total Score (If total score is 3 or more points, staff should administer the PHQ-9) 0 06/16/2021 Comments No Sex and Gender Information Value Date Recorded Sex Assigned at Not on file Legal Sex Female 3:37 PM TOOLING MANAGER Gender Identity Female 03/02/2020 4:27 PM TOOLING MANAGER Sexual Orientation Straight 07/10/2019 11 :13 PM CDT documented as of this encounter Miscellaneous Notes * Telephone Encounter - Dia Huffman MA - 06/23/2021 1:36 PM CDT Done and waiting on reply. * Telephone Encounter - Dixie Khan PA - 06/23/2021 12:40 PM CDT It was topical acyclovir. See MyChart message * Telephone Encounter - Dia Huffman MA - 06/23/2021 10:49 AM CDT I don't see on med list? * Telephone Encounter - Dia Huffman MA - 06/23/2021 10:14 AM CDT PA on Acyclovir for covermymeds [id number] documented in this encounter Plan of Treatment [...] on filedocumented in this encounter Care Teams Container Filler Relationship Specialty Start Date End Date Daily Cruz MD PCP - General Family Medicine 03/04/21 documented as of this encounter
--- OUTSIDE RECORDS SUMMARY | 2024-02-21 19:37 | XMS_ITS | Encounter Summary ---
Author Organization [facility] Address [address] [facility] [address] [place] [address] Care Team Providers Care Professional Fee Coder Name Role Phone Daily Cruz MD Primary Care Provider [phone] Encounter Details Date Type Department Care Team (Late st Contact Info) Description 10/11/2021 4:00 PM CDT Telemedicine [facility] Family Medicine at [place] [address] [facility] [address] [place] [phone] Daily Cruz MD [address] [facility] [address] [place], [place] [id number] Localized swelling of left foot (Primary Dx); High serum c-peptide; Chronic pain of multiple joints; Intractable chronic migraine without aura and with status migrainosus; White matter abnormality on MRI of brain Social History Tobacco Use Types Packs/Day Years [...] on file 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 Gender Identity Female 03/02/2020 4:27 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 * Magnetic Resonance Imaging (Discharge Care) (Bulgarian) documented in this encounter Progress Notes * Daily Cruz MD - 10/11/2021 4:00 PM CDT Images from the original note were not included. Patient ID: Jud Leung is a 31 y.o. female. Visit Date: 10/11/2021 This was a telemedicine visit with Jud Leung alone which took place via real-time video connection with [employer]. During the visit, I was located in the office and the patient was located at home in the [facility]. The patient visit started at 16:31 and ended at 16:39. The patient has been informed that the [...] responsible for any applicable copayments. Chief Complaint Foot swelling HPI HPI C/o left foot swelling C/o diffuse joint pains. Has elevated cpeptide H/o migraines - is on emgality and imitrex. MRI brain shows white matter Current Outpatient Medications: acetaminophen (TYLENOL) 500 mg tablet, Take 1,000 mg by mouth every 6 (six) hours as needed for pain, Disp: , Rfl: albuterol 2.5 mg /3 mL (0.083 %) nebulizer solution, Take 3 mL (2.5 mg total) by nebulization every6 (six) hours as needed for wheezing, Disp: 75 mL, Rfl: 0 albuterol HFA (PROVENTIL HFA,VENTOLIN HFA,PROAIR HFA) 90 mcg/actuation inhaler, INHALE 2 PUFFS EVERY 6 HOURS NEEDED FOR WHEEZING, Disp: 6.7 each, Rfl: 1 budesonide-formoteroL (SYMBICORT) 160-4.5 mcg/actuation inhaler, Inhale 2 puffs 2 (two) times a dayRinse mouth with water after use. Do not swallow., Disp: 1 each, Rfl: 1 famotidine (PEPCID) 40 mg tablet, Take 1 tablet (40 mg total) by mouth daily, Disp: 30 tablet, Rfl:0 fluticasone propionate (FLONASE) 50 mcg/actuation nasal spray, Administer 2 sprays into each nostril daily (Patient taking differently: Administer 2 sprays into each nostril as needed), Disp: 16 g, Rfl: 0 furosemide (LASIX) 20 mg tablet, TAKE 1 TABLET BY MOUTH EVERY DAY, Disp: 30 tablet, Rfl: 2 galcanezumab-gnlm (Emgality Pen) 120 mg/mL pen injector, Inject 120 mg under the skin every 30 (thirty) days (Patient taking differently: Inject 120 mg under the skin every 30 (thirty) days), Disp: 1mL, Rfl: 0 ibuprofen (ADVIL,MOTRIN) 800 mg tablet, Take 1 tablet (800 mg total) by mouth 3 (three) times a day, Disp: 90 tablet, Rfl: 0 levocetirizine (XYZAL) 5 mg tablet, Take 1 tablet (5 mg total) by mouth daily, Disp: 30 tablet, Rfl: 0 SUMAtriptan (IMITREX) 50 mg tablet, TAKE 1 TABLET BY MOUTH ONCE NEEDED FOR MIGRAINE. MAY REPEAT DOSE AFTER 2 HOURS (Patient taking differently: Take 50 mg by mouth once as needed), Disp: 9 tablet,Rfl: 0 triamcinolone (KENALOG) 0.1 % cream, Apply topically 2 (two) times a day as needed for rash Do not use on the face or in the groin, Disp: 454 g, Rfl: 2 dexAMETHasone (DECADRON) 2 mg tablet, 2 tab BID x 3 days, 1 tab BID x 3 days, 1 tab qd x2 days, 1/2tab qd x 2 days, Disp: 21 tablet, Rfl: 0 levonorgestreL (KYLEENA) IUD, 1 each by intrauterine route once , Disp: , Rfl: ondansetron ODT (ZOFRAN-ODT) 4 mg disintegrating tablet, Take 1 tablet (4 mg total) by mouth every 8 (eight) hours as needed for nausea or vomiting, Disp: 20 tablet, Rfl: 0 oxyCODONE-acetaminophen (PERCOCET) 5-325 mg per tablet, Take [...] Genitourinary: Negative for dysuria and frequency. Musculoskeletal: Positive for arthralgias. Negative for back pain. Left foot swelling Neurological: Positive for headaches. Negative for dizziness. Hematological: Does not bruise/bleed easily. Psychiatric/Behavioral: Negative for behavioral problems and confusion. Ht 170.2 cm (5' 7.01 ) Wt 115.7 kg (255 lb) Comment: per patient LMP 09/19/2021 (Exact Date) BMI 39.93 kg/m?? Body mass index is 39.93 kg/m??. Physical Exam Constitutional: Appearance: Normal appearance. [...] Behavior normal. Latest Reference Range & Units 09/27/21 15:06 Sodium 135 - 145 mmol/L 138 Potassium, pl 3.3 - 4.9 mmol/L 4.3 Chloride 97 - 110 mmol/L 103 CO2 22 - 32 mmol/L 25 Anion gap 2 - 15 mmol/L 10 BUN 8 - 25 mg/dL 17 Creatinine 0.60 - 1.10 mg/dL 0.90 Glucose 70 - 199 mg/dL 92 Calcium 8.5 - 10.3 mg/dL 9.3 Bilirubin, total 0.1 - 1.2 mg/dL <0.2 Protein, pl 6.5 - 8.5 g/dL 7.1 Albumin 3.5 - 5.0 g/dL 4.1 eGFR mL/min/1.73 m2 88 Alk phos 40 - 130 Units/L 90 AST 10 - 45 Units/L 7 (L) ALT 7 - 45 Units/L 8 Chol/HDL ratio 3 Cholesterol 30 - 199 mg/dL 190 Estim. Avg Glu (eAG) mg/dL 108 HDL Cholesterol >=40 mg/dL 57 Hgb A1C 4.0 - 5.6 % 5.4 LDL Cholesterol Calc <=129 mg/dL 120 Non-HDL Cholesterol mg/dL 133 Triglycerides <=149 mg/dL 65 TSH 0.30 - 4.20 mcIUnit/mL 1.16 Vitamin D 25-OH 30.0 - 80.0 ng/mL 22.0 (L) WBC 3.8 - 9.9 K/cumm 14.6 (H) Hgb 11.9 - 15.5 g/dL 12.5 Hct 35.6 - 45.5 % 38.5 Plt 150 - 400 K/cumm 371 MPV 9.1 - 12.3 fL 10.2 RBC 3.90 - 5.20 M/cumm 4.24 MCV 81.3 - 96.4 fL 90.8 MCH 27.1 - 33.3 pg 29.5 (L): Data is abnormally low (H): Data is abnormally high Diagnoses and all orders for this visit: Localized swelling of left foot (Primary) Assessment & Plan: New Refer to podiatry Orders: - BATSHEVA qualitative with reflex to BATSHEVA Quantitative; Future - Erythrocyte sedimentation rate; Future - Rheumatoid factor; Future - Uric acid; Future - C-peptide; Future - Ambulatory referral to Podiatry; Future High serum c-peptide Assessment & Plan: New Order further labs to r/o connective tissue disorder Orders: - BATSHEVA qualitative with reflex to BATSHEVA Quantitative; Future - Erythrocyte sedimentation rate; Future - Rheumatoid factor; Future - Uric acid; Future - C-peptide; Future Chronic pain of multiple joints Assessment & Plan: Uncontrolled Order labs to r/o connective tissue disorder Orders: - BATSHEVA qualitative with reflex to BATSHEVA Quantitative; Future - Erythrocyte sedimentation rate; Future - Rheumatoid factor; Future - Uric acid; Future - C-peptide; Future Intractable chronic migraine without aura and with status migrainosus Assessment & Plan: chronic Cont Emgality, imitrex PRN Orders: - MRI Brain WO Contrast; Future White matter abnormality on MRI of brain Assessment & Plan: New Refer to neurology Orders: - MRI Brain WO Contrast; Future Daily Cruz MD documented in this encounter Miscellaneous Notes * Assessment & Plan Note - Daily Cruz MD - 10/15/2021 6:24 AM CDT Associated Problem(s): High serum c-peptide New Order further labs to r/o connective tissue disorder * Assessment & Plan Note - Daily Cruz MD - 10/15/2021 6:24 AM CDT Associated Problem(s): Localized swelling of left foot New Refer to podiatry * Assessment & Plan Note - Daily Cruz MD - 10/15/2021 6:24 AM CDT Associated Problem(s): Chronic migraine without aura without status migrainosus, not intractable chronic Cont Emgality, imitrex PRN * Assessment & Plan Note - Daily Cruz MD - 10/15/2021 6:23 AM CDT Associated Problem(s): White matter abnormality on MRI of brain New Refer to neurology * Assessment & Plan Note - Daily Cruz MD - 10/15/2021 6:23 AM CDT Associated Problem(s): Chronic pain of multiple joints Uncontrolled Order labs to r/o connective tissue disorder documented in this encounter Plan of Treatment [...] documented as of this encounter Results * C-peptide (12/15/2021 7:44 AM CDT) C-peptide 3.5 1.1 - 4.4 ng/mL [facility] Blood 12/15/2021 7:44 AM CDT 12/15/2021 7:56 AM CDT us Daily Cruz MD LAB BLOOD ORDERABLES Karen l Result [facility] [address] [facility] Department [place] [address] * Uric acid (12/15/2021 7:44 AM CDT) Uric acid 4.2 2.5 - 7.0 mg/dL [facility] Blood 12/15/2021 7:44 AM CDT 12/15/2021 7:56 AM CDT Daily Cruz MD LAB BLOOD ORDERABLES Karen l Result Performing Organization Address [facility] Co de Phone Number [address] [address] * Rheumatoid factor (12/15/2021 7:44 AM CDT) Pathologist [facility] Rheumatoid factor, quant <10.0 <=15.0 IUnits/mL [facility] Blood 12/15/2021 7:44 AM CDT 12/15/2021 7:56 AM CDT Daily Cruz MD LAB BLOOD ORDERABLES Karen l Result Performing Organization Address [facility] de Phone Number [address] [address] * (ABNORMAL) Erythrocyte sedimentation rate (12/15/2021 7:44 AM CDT) Pathologist [facility] Erythrocyte sedimentation rate 39(H) 1 - 20 mm/hr [facility] Blood 12/15/2021 7:44 AM CDT 12/15/2021 7:[address] [facility] Daily Cruz MD LAB BLOOD ORDERABLES Karen l Result Performing Organization Address [facility] Co de Phone Number [address] [address] * BATSHEVA qualitative with reflex to BATSHEVA Quantitative (12/15/2021 7:44 AM CDT) Pathologist [facility] BATSHEVA Negative [facility] Comment: Interpretive Data Normal range for BATSHEVA Qualitative Antibody = Negative. 1. BATSHEVA is performed using indirect immunofluorescence against HEp-2 cells 2. BATSHEVA titers are performed on all positive qualitative results. 3. A significantly positive BATSHEVA result is defined as a positive nuclear fluorescence at a titer of 1:80 or greater. 4. 15% of normal people above age 65 have significantly positive BATSHEVA results. ??5% or less of normal people age 65 or under have significantly positive BATSHEVA results. Current interpretive data was last revised on 2019. Testing performed by: [facility], [address] [place]., [address] Blood 12/15/2021 7:44 AM CDT 12/15/2021 11:07 AM CDT us Daily Cruz MD LAB BLOOD ORDERABLES Karen l Result [facility] [address] [facility] Department [place] [address] documented in this encounter Visit Diagnoses Diagnosis Localized swelling of left foot- Primary High serum c-peptide Chronic pain of multiple joints Intractable chronic migraine without aura and with status migrainosus White matter abnormality on MRI of brain documented in this encounter Care Teams Professional Fee Coder Relationship Specialty Start Date End Date Daily Cruz MD PCP - General Family Medicine 03/04/21 documented as of this encounter
--- OUTSIDE RECORDS SUMMARY | 2024-02-21 19:37 | XMS_ITS | Encounter Summary ---
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
--- OUTSIDE RECORDS SUMMARY | 2024-02-21 19:37 | XMS_ITS | Encounter Summary ---
Author Organization [facility] Address [address] [facility] [address] [place] [address] Care Team Providers Care Environmental Services Tech Name Role Phone Daily Cruz MD Primary Care Provider [phone] [phone] Reason for Visit * Reason Comments Cough Rash Encounter Details Date Type Department Care Team (Latest Contact Info) Description 07/20/2021 10:30 AM CDT Telemedicine [facility] Family Medicine at [place] [address] [address] Daily Cruz MD [address] [place] [id number] Acute bronchitis due to other specified organisms (Primary Dx); Vitamin D deficiency; Intractable chronic migraine without aura and with status migrainosus; Fluid retention; Pure hypercholesterolemia Social History Tobacco Use Types [...] file 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 Gender Identity Female 03/02/2020 4:27 PM 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 * Benzonatate (By mouth) (Samoan) documented in this encounter Ordered Prescriptions Prescription Sig Dispense Quantity Refills Last Filled Start Date End Date albuterol HFA (PROVENTIL HFA,VENTOLIN HFA,PROAIR HFA) 90 mcg/actuation inhalerIndications :Acute bronchitis due to other specified organisms Inhale 2 puffs every 6 (six) hours as needed for wheezing 1 each 07/20/2021 2 benzonatate (TESSALON) 100 mg capsuleIndications :Cough Take 1 capsule (100 mg total) by mouth 3 (three) times a day as needed for cough 42 capsule 07/20/2021 2 budesonide-formote roL (SYMBICORT) 160-4.5 mcg/actuation inhalerIndications :Acute bronchitis due to other specified organisms Inhale 2 puffs 2 (two) times a day Rinse mouth with water after use. Do not swallow. 1 each 1 07/20/2021 2 azithromycin (ZITHROMAX) 250 mg tabletIndications: Acute bronchitis due to other specified organisms Take 2 tabs (500 mg) by mouth today, than 1 daily for 4 days. 6 tablet 07/20/2021 2 documented in this encounter Progress Notes * Daily Cruz MD - 07/20/2021 10:30 AM CDT Images from the original note were not included. Patient ID: Jud Leung is a 30 y.o. female. Visit Date: 07/20/2021 This was a telemedicine visit with Jud Leung alone which took place via real-time video connection with [employer]. During the visit, I was located at home and the patient was located at home in the [facility]. The patient visit started at 10:31 and ended at 10:40.. The patient has been informed that the visit may not be secure and acknowledged the information. I have explained the option of participating in a telephone or video visit during the [facility] public health emergency to the patient. After being given an opportunity to ask questions about and discuss this type of visit, the patient verbally consented to proceeding with the telephone/video visit.The patient understands that this service replaces an office visit and they may be billed and/or responsible for any applicable copayments. Chief Complaint cough HPI H/o Fluid Retention - stable. Tolerating Lasix H/o Migraines - stable. Tolerating Emgality, Imitrex PRN Cough This is a new problem. The current episode started 1 to 4 weeks ago. The problem has been graduallyworsening. The problem occurs every few minutes. The cough is productive of sputum. Associated symptoms include chest pain, headaches, nasal congestion, postnasal drip, a rash, rhinorrhea, a sore throat, shortness of breath and wheezing. Pertinent negatives include no chills, ear congestion, ear pain, eye redness, fever, heartburn, hemoptysis or myalgias. The symptoms are aggravated by exercise. Hyperlipidemia This is a chronic problem. The current episode started more than 1 year ago. The problem is uncontrolled. Recent lipid tests were reviewed and are high. Associated symptoms include chest pain and shortness of breath. Pertinent negatives include no myalgias. Current antihyperlipidemic treatment includes diet change and exercise. Current Outpatient Medications: ??? acetaminophen (TYLENOL) 500 mg tablet, Take 1,000 mg by mouth every 6 (six) hours as needed forpain, Disp: , Rfl: ??? fluticasone propionate (FLONASE) 50 mcg/actuation nasal spray, Administer 2 sprays into each nostril daily (Patient taking differently: Administer 2 sprays into each nostril as needed), Disp: 16 g, Rfl: 0 ??? furosemide (LASIX) 20 mg tablet, Take 1 tablet (20 mg total) by mouth daily, Disp: 30 tablet, Rfl: 0 ??? galcanezumab-gnlm (Emgality Pen) 120 mg/mL pen [...] groin, Disp: 454 g, Rfl: 2 ??? albuterol HFA (PROVENTIL HFA,VENTOLIN HFA,PROAIR HFA) 90 mcg/actuation inhaler, Inhale 2 puffs every 6 (six) hours as needed for wheezing, Disp: 1 each, Rfl: 0 ??? azithromycin (ZITHROMAX) 250 mg tablet, Take 2 tabs (500 mg) by mouth today, than 1 daily for 4days., Disp: 6 tablet, Rfl: 0 ??? benzonatate (TESSALON) 100 mg capsule, Take 1 capsule (100 mg total) by mouth 3 (three) times aday as needed for cough, Disp: 42 capsule, Rfl: 0 ??? budesonide-formoteroL (SYMBICORT) 160-4.5 mcg/actuation inhaler, Inhale 2 puffs 2 (two) times aday Rinse mouth with water after use. Do not swallow., Disp: 1 each, Rfl: 1 ??? tamsulosin (FLOMAX) 0.4 mg extended release capsule, Take 1 capsule (0.4 mg total) by mouth daily for 14 days, Disp: 14 capsule, Rfl: 0 Review of Systems Constitutional: Negative for chills, fatigue and fever. HENT: Positive for postnasal drip, rhinorrhea and sore throat. Negative for congestion, ear pain and nosebleeds. Eyes: Negative for pain and redness. Respiratory: Positive for cough, shortness of breath and wheezing. Negative for hemoptysis. Cardiovascular: Positive for chest pain. Negative for palpitations. HLP Gastrointestinal: Negative for abdominal pain, diarrhea and heartburn. Endocrine: Negative for cold intolerance. Vit d def Genitourinary: Negative for dysuria and frequency. Musculoskeletal: Negative for arthralgias, back pain and myalgias. Skin: Positive for rash. Neurological: Positive for headaches. Negative for dizziness. Hematological: Does not bruise/bleed easily. Psychiatric/Behavioral: Negative for behavioral problems and confusion. Temp 36.3 ??C (97.4 ??F) Comment: per pt Ht 170.2 cm (5' 7 ) Wt 113.4 kg (250 lb) Comment: per pt BMI 39.16 kg/m?? Body mass index is 39.16 kg/m??. Physical Exam Constitutional: Appearance: Normal appearance. HENT: Head: Normocephalic and atraumatic. Nose: Nose normal. Eyes: Extraocular Movements: Extraocular movements intact. Conjunctiva/sclera: Conjunctivae normal. Pulmonary: Effort: Pulmonary effort is normal. Musculoskeletal: Cervical back: Normal range of motion. Neurological: Mental Status: She is alert and oriented to person, place, and time. Psychiatric: Mood and Affect: Mood normal. Behavior: Behavior normal. Triglycerides 0 - 149 mg/dL 87 Comment: National Lipid Association/NCEP Guidelines: ?Normal ?< 150 mg/dL ?Borderline high ?? 150-199 mg/dL ?High ?200-499 mg/dL ?Very High ? >=500 mg/dL Cholesterol 0 - 199 mg/dL 195 Comment: National Lipid Association/NCEP Guidelines: ??Desirable ? < 200 mg/dL ??Borderline high: ??200-239 mg/dL ??High Risk: ?>=240 mg/dL HDL Cholesterol mg/dL 48 Comment: Reference Ranges: ?Males: >=40 mg/dL ?Females: >=50 mg/dL LDL Cholesterol, Calc 0 - 129 mg/dL 130??High?? Diagnoses and all orders for this visit: Acute bronchitis due to other specified organisms (Primary) Assessment & Plan: New Order zpack, symbicort, Tessalon perles, albuterol Orders: - azithromycin (ZITHROMAX) 250 mg tablet; Take 2 tabs (500 mg) by mouth today, than 1 daily for 4 days. - budesonide-formoteroL (SYMBICORT) 160-4.5 mcg/actuation inhaler; Inhale 2 puffs 2 (two) times a day Rinse mouth with water after use. Do not swallow. - benzonatate (TESSALON) 100 mg capsule; Take 1 capsule (100 mg total) by mouth 3 (three) times a day as needed for cough - albuterol HFA (PROVENTIL HFA,VENTOLIN HFA,PROAIR HFA) 90 mcg/actuation inhaler; Inhale 2 puffs every 6 (six) hours as needed for wheezing Vitamin D deficiency Assessment & Plan: Chronic Control naturally Orders: - Vitamin D 25 hydroxy; Future Intractable chronic migraine without aura and with status migrainosus Assessment & Plan: Stable Cont Emgality, imitrex PRN Fluid retention Assessment & Plan: Stable Cont lasix Pure hypercholesterolemia - Comprehensive metabolic panel; Future - Lipid panel; Future - CBC with auto differential; Future - TSH reflex to free T4; Future Daily MD Nancy documented in this encounter Miscellaneous Notes * Assessment & Plan Note - Daily Cruz MD - 07/20/2021 2:01 PM CDT Associated Problem(s): Fluid retention Stable Cont lasix * Assessment & Plan Note - Daily Cruz MD - 07/20/2021 2:01 PM CDT Associated Problem(s): Acute bronchitis due to other specified organisms (Resolved 12/06/2021) New Order zpack, symbicort, Tessalon perles, albuterol * Assessment & Plan Note - Daily Cruz MD - 07/20/2021 2:00 PM CDT Associated Problem(s): Chronic migraine without aura without status migrainosus, not intractable Stable Cont Emgality, imitrex PRN * Assessment & Plan Note - Daily Cruz MD - 07/20/2021 1:45 PM CDT Associated Problem(s): Vitamin D deficiency Chronic Control naturally documented in this encounter Plan of Treatment [...] as of this encounter Results * (ABNORMAL) Vitamin D 25 hydroxy (09/27/2021 3:06 PM CDT) Pathologist [facility] Vitamin D 25-OH 22.0(L) 30.0 - 80.0 ng/mL ANGELICA VERDUGO Comment:Below Ref Range Blood 09/27/2021 3:06 PM CDT 09/27/2021 3:27 PM CDT Daily Cruz MD LAB BLOOD ORDERABLES Edit ed Result - Final ANGELICA [facility] [address] [facility] Department [place] [address] documented in this encounter Visit Diagnoses Diagnosis Acute bronchitis due to other specified organisms- Primary Vitamin D deficiency Intractable chronic migraine without aura and with status migrainosus Fluid retention Fluid overload Pure hypercholesterolemia documented in this encounter Discontinued Medications Medication Sig Discontinue Reason Start Date End Da te budesonide-formoteroL (Symbicort) 160-4.5 mcg/actuation inhalerIndications:Reac tive airway disease that is not asthma Inhale 2 puffs 2 (two) times a day Rinse mouth with water after use. Do not swallow. Therapy completed 04/22/2020 07/20/2021 ketorolac (TORADOL) 10 mg tablet Take 1 tablet (10 mg total) by mouth every 6 (six) hours as needed for pain Therapy completed 06/19/2021 07/20/2021 methylPREDNISolone (MEDROL DOSEPACK) 4 mg Dosepack Take as directed on package. Therapy completed 06/16/2021 07/20/2021 ondansetron (ZOFRAN) 4 mg tablet Take 1 tablet (4 mg total) by mouth every 6 (six) hours as needed for nausea Therapy completed 06/19/2021 07/20/2021 albuterol HFA (PROVENTIL HFA,VENTOLIN HFA,PROAIR HFA) 90 mcg/actuation inhaler Inhale 2 puffs every 6 (six) hours as needed Reorder 07/20/2021 documented as of this encounter Care Teams Environmental Services Tech Relationship Specialty Start Date End Date Daily Cruz MD PCP - General Family Medicine 03/04/21 documented as of this encounter
--- OUTSIDE RECORDS SUMMARY | 2024-02-21 19:37 | XMS_ITS | Encounter Summary ---
Author Organization [facility] Address [address] [facility] [address] [address] Care Team Providers Care Choral Teacher Name Role Phone Daily Cruz MD Primary Care Provider [phone] Reason for Visit * Reason Comments Headache Fall Encounter Details Date Type Department Care Team (Late st Contact Info) Description 10/21/2021 4:00 PM CDT Telemedicine [facility] Family Medicine at [place] [address] [facility] [address] [place] [address] Daily Cruz MD [address] [place] [address] [address] [place] [address] Intractable chronic migraine without aura and with status migrainosus (Primary Dx) Social History Tobacco Use Types [...] on file Legal Sex Female 3:37 PM STRIPPER PRELIMINARY Gender Identity Female 03/02/2020 4:27 PM STRIPPER PRELIMINARY Sexual Orientation Straight 07/10/2019 11 :13 PM CDT documented as of this encounter Last Filed Vital Signs Vital Sign Reading Time Taken Comments Blood Pressure - - Pulse - - Temperature - - Respiratory Rate - - Oxygen Saturation - - Inhaled Oxygen Concentration - - Weight 115.7 kg (255 lb) 10/21/2021 4:31 PM CDT Height 170.2 cm (5' 7 ) 10/21/2021 4:31 PM CDT Body Mass Index 39.94 10/21/2021 4:31 PM CDT documented in this encounter Patient Instructions * Attachments The following attachments cannot be sent through Care Everywhere. * Migraine Headache (Records Management Specialist) (Swedish) documented in this encounter Ordered Prescriptions Prescription Sig Dispense Quantity Refills Last Filled Start Date End Date rimegepant (Nurtec ODT) tablet,disintegrat ingIndications:Gerhard cloud Take 1 tablet (75 mg total) by mouth daily as needed (headache) 16 tablet 10/21/2021 2 ergocalciferol (VITAMIN D) 50,000 unit capsule Take 1 capsule (50,000 Units total) by mouth once a week 4 capsule 5 10/21/2021 3 galcanezumab-gnlm (Emgality Pen) 120 mg/mL pen injectorIndication s:Intractable chronic migraine without aura and with status migrainosus Inject 120 mg under the skin every 30 (thirty) days 1 mL 5 10/21/2021 3 furosemide (LASIX) 40 mg tablet Take 1 tablet (40 mg total) by mouth daily 90 tablet 4 10/21/2021 3 documented in this encounter Progress Notes * Daily Cruz MD - 10/21/2021 4:00 PM CDT Images from the original note were not included. Patient ID: Jud Leung is a 31 y.o. female. Visit Date: 10/21/2021 This was a telemedicine visit with Jud Leung alone which took place via real-time video connection with [employer]. During the visit, I was located in the office and the patient was located at home in the [facility]. The patient visit started at 16:34 and ended at 16:45. The patient has been informed that the visit may not be secure and acknowledged the information. I have explained the option of participating in a telephone or video visit during the COVID-[facility] emergency to the patient. After being given an opportunity to ask questions about and discuss this type of visit, the patient verbally consented to proceeding with the telephone/video visit.The patient understands that this service replaces an office visit and they may be billed and/or responsible for any applicable copayments. Chief Complaint GAGNON HPI Acute Neurological Problem Associated symptoms include headaches. Pertinent negatives include no abdominal pain, back pain, chest pain, confusion, dizziness, fatigue, fever, palpitations or shortness of breath. Migraine headaches worse. Gets nausea, photophobia, behind eyes Current Outpatient Medications: acetaminophen (TYLENOL) 500 mg [...] as needed), Disp: 16 g, Rfl: 0 ibuprofen (ADVIL,MOTRIN) 800 mg tablet, Take 1 tablet (800 mg total) by mouth 3 (three) times a day, Disp: 90 tablet, Rfl: 0 levocetirizine (XYZAL) 5 mg tablet, Take 1 tablet (5 mg total) by mouth daily, Disp: 30 tablet, Rfl: 0 levonorgestreL (KYLEENA) IUD, 1 [...] per day., Disp: 30 tablet, Rfl: 0 SUMAtriptan (IMITREX) [...] the groin, Disp: 454 g, Rfl: 2 ergocalciferol (VITAMIN D) 50,000 unit capsule, Take 1 capsule (50,000 Units total) by mouth once aweek, Disp: 4 capsule, Rfl: 5 furosemide (LASIX) 40 mg tablet, Take 1 tablet (40 mg total) by mouth daily, Disp: 90 tablet, Rfl: 4 galcanezumab-gnlm (Emgality Pen) 120 mg/mL pen injector, Inject 120 mg under the skin every 30 (thirty) days, Disp: 1 mL, Rfl: 5 rimegepant (Nurtec ODT) tablet,disintegrating, Take 1 tablet (75 mg total) by mouth daily as needed(headache), Disp: 16 tablet, Rfl: 0 Review of Systems Constitutional: [...] 115.7 kg (255 lb) BMI 39.94 kg/m?? Body mass index is 39.94 kg/m??. Physical Exam Constitutional: Appearance: Normal appearance. [...] with status migrainosus (Primary) Assessment & Plan: Worsening Change back from ajovy to emgality Try nurtrec Failed meds: ubrelvy, imitrex Orders: - galcanezumab-gnlm (Emgality Pen) 120 mg/mL pen injector; Inject 120 mg under the skin every 30 (thirty) days - rimegepant (Nurtec ODT) tablet,disintegrating; Take 1 tablet (75 mg total) by mouth daily as needed (headache) Other orders - furosemide (LASIX) 40 mg tablet; Take 1 tablet (40 mg total) by mouth daily - ergocalciferol (VITAMIN D) 50,000 unit capsule; Take 1 capsule (50,000 Units total) by mouth oncea week Daily Cruz MD documented in this encounter Miscellaneous Notes * Assessment & Plan Note - Daily Cruz MD - 10/21/2021 5:03 PM CDT Associated Problem(s): Chronic migraine without aura without status migrainosus, not intractable Worsening Change back from ajovy to emgality Try nurtrec Failed meds: ubrelvy, imitrex documented in this encounter Plan of Treatment [...] without aura and with status migrainosus- Primary documented in this encounter Discontinued Medications Medication Sig Discontinue Reason Start Date End Da te dexAMETHasone (DECADRON) 2 mg tabletIndications:Acute bilateral low back pain without sciatica 2 tab BID x 3 days, 1 tab BID x 3 days, 1 tab qd x2 days, 1/2 tab qd x 2 days Therapy completed 09/27/2021 10/21/2021 furosemide (LASIX) 20 mg tablet TAKE 1 TABLET BY MOUTH EVERY DAY Dose adjustment 08/26/2021 10/21/2021 galcanezumab-gnlm (Emgality Pen) 120 mg/mL pen injectorIndications:Intra ctable chronic migraine without aura and with status migrainosus Inject 120 mg under the skin every 30 (thirty) days Reorder 09/09/2020 10/21/2021 documented as of this encounter Care Teams Choral Teacher Relationship Specialty Start Date End Date Daily Cruz MD PCP - General Family Medicine 03/04/21 documented as of this encounter
--- OUTSIDE RECORDS SUMMARY | 2024-02-21 19:37 | XMS_ITS | Encounter Summary ---
Author Organization [facility] Address [address] [facility] [address] [place] [address] Care Team Providers Care Machine Welder Name Role Phone Daily Cruz MD Primary Care Provider [phone] Reason for Visit * Reason Onset Date Comments Referral Request 10/19/2021 Encounter Details Date Type Department Care Team (Late st Contact Info) Description 10/19/2021 Telephone [facility] Family Medicine at [place] [address] [facility] [address] [place] [address] Daily Cruz MD [address] [place] [address] [address] [place] [address] Referral Request Social History Tobacco Use Types Packs/Day [...] on file Legal Sex Female 3:37 PM CORN HUSKER Gender Identity Female 03/02/2020 4:27 PM CORN HUSKER Sexual Orientation Straight 07/10/2019 11 :13 PM CDT documented as of this encounter Miscellaneous Notes * Telephone Encounter - Kylah Tejada - 10/19/2021 10:52 AM CDT Referring to Dr Alonso * Telephone Encounter - Donna Newell MA - 10/19/2021 8:37 AM CDT Medical Question/Miscellaneous Caller???s Concern: Paris from Dr Doe Ratliff's office called and states that they received a referral for patient to be seen by them but the patient has [place] insurance and they are not in network with her insurance. Paris states that patient will need to be sent to a provider that is in network with her insurance. Caller???s Call back #: [phone] Does message need to be routed?Yes-Action Needed [...] on filedocumented in this encounter Care Teams Machine Welder Relationship Specialty Start Date End Date Daily Cruz MD PCP - General Family Medicine 03/04/21 documented as of this encounter
--- OUTSIDE RECORDS SUMMARY | 2024-02-21 19:37 | XMS_ITS | Encounter Summary ---
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 Gender Identity Female 03/02/2020 4:27 PM ORDER DESK CLERK Sexual Orientation Straight 07/10/2019 11 :13 PM CDT documented as of this encounter Last Filed Vital Signs Vital Sign Reading Time Taken Comments Blood Pressure 133/88 10/22/2021 2:43 PM CDT Pulse 61 10/22/2021 2:43 PM CDT Temperature 36.7 ??C (98 ??F) 10/22/2021 9:58 AM CDT Respiratory Rate 18 10/22/2021 2:43 PM CDT Oxygen Saturation 100% 10/22/2021 2:43 PM CDT Inhaled Oxygen Concentration - - Weight 115.7 kg (255 lb) 10/22/2021 9:58 AM CDT Height 170.2 cm (5' 7 ) 10/22/2021 9:58 AM CDT Body Mass Index 39.94 10/22/2021 9:58 AM CDT documented in this encounter Discharge Instructions * Discharge Instructions* Irma Quintana PA - 10/22/2021 3:13 PM CDT Follow up with your primary care doctor next week. Follow up with the OBGYN and GI specialist provided. Return to outpatient ultrasound for further evaluation. Return to the ED with any new or worsening symptoms. * Attachments The following attachments cannot be sent through Care Everywhere. * Rectal Bleeding (AfterCare(R) Instructions(ER/ED)) ([facility]) * Acute Abdominal Pain (AfterCare(R) Instructions(ER/ED)) ([facility]) documented in this encounter Medications at Time of Discharge acetaminophen (TYLENOL) 500 mg tablet Take 1,000 mg by mouth every 6 (six) hours as needed for pain 12/07/19 22 albuterol 2.5 mg /3 mL (0.083 %) nebulizer solution Take 3 mL (2.5 mg total) by nebulization every 6 (six) hours as needed for wheezing 75 mL 2 07/22/19 23 albuterol HFA (PROVENTIL HFA,VENTOLIN HFA,PROAIR HFA) 90 mcg/actuation inhalerIndications: Acute bronchitis due to other specified organisms INHALE 2 PUFFS EVERY 6 HOURS NEEDED FOR WHEEZING 6.7 each 1 2 03/22/19 23 budesonide-formoter oL (SYMBICORT) 160-4.5 mcg/actuation inhalerIndications: Acute bronchitis due to other specified organisms Inhale 2 puffs 2 (two) times a day Rinse mouth with water after use. Do not swallow. 1 each 1 2 12/07/19 22 ergocalciferol (VITAMIN D) 50,000 unit capsule Take 1 capsule (50,000 Units total) by mouth once a week 4 capsule 5 2 08/14/19 23 famotidine (PEPCID) 40 mg tablet Take 1 tablet (40 mg total) by mouth daily 30 tablet 2 11/17/19 22 fluticasone propionate (FLONASE) 50 mcg/actuation nasal sprayIndications:Co ugh,Nasal congestion Administer 2 sprays into each nostril daily 16 g 0 12/07/19 22 furosemide (LASIX) 40 mg tablet Take 1 tablet (40 mg total) by mouth daily 90 tablet 4 2 11/23/19 23 galcanezumab-gnlm (Emgality Pen) 120 mg/mL pen injectorIndications :Intractable chronic migraine without aura and with status migrainosus Inject 120 mg under the skin every 30 (thirty) days 1 mL 5 2 06/14/19 23 ibuprofen (ADVIL,MOTRIN) 800 mg tabletIndications:A cute bilateral low back pain without sciatica Take 1 tablet (800 mg total) by mouth 3 (three) times a day 90 tablet 2 02/28/19 24 levocetirizine (XYZAL) 5 mg tabletIndications:C ough,Nasal congestion Take 1 tablet (5 mg total) by mouth daily 30 tablet 0 12/07/19 22 levonorgestreL (KYLEENA) IUD 1 each by intrauterine route once 08/18/19 23 ondansetron ODT (ZOFRAN-ODT) 4 mg disintegrating tabletIndications:A cute bilateral low back pain without sciatica Take 1 tablet (4 mg total) by mouth every 8 (eight) hours as needed for nausea or vomiting 20 tablet 2 12/07/19 22 oxyCODONE-acetamino phen (PERCOCET) 5-325 mg per tabletIndications:P ain Take 1 tablet by mouth every 8 (eight) hours as needed for pain Do not exceed 8 tablets per day. 30 tablet 2 12/07/19 22 rimegepant (Nurtec ODT) tablet,disintegrati ngIndications:Migra ine Take 1 tablet (75 mg total) by mouth daily as needed (headache) 16 tablet 2 12/07/19 22 SUMAtriptan (IMITREX) 50 mg tablet TAKE 1 TABLET BY MOUTH ONCE NEEDED FOR MIGRAINE. MAY REPEAT DOSE AFTER 2 HOURS 9 tablet 1 12/07/19 22 triamcinolone (KENALOG) 0.1 % creamIndications:Al lergic contact dermatitis, unspecified trigger Apply topically 2 (two) times a day as needed for rash Do not use on the face or in the groin 454 g 2 2 02/28/19 24 documented as of this encounter Discharge Disposition Disposition Code Departure Means Destination Comment s Discharge to home or self care D/C @ 1513 documented in this encounter ED Notes * Irma Quintana PA - 10/22/2021 2:59 PM CDT HPI Chief Complaint Patient presents with Rectal Bleeding HPI 2:59 PM Jud Leung is a 31 y.o. female presenting to the ED c/o rectal bleeding today. Reports a harder BM this morning and then noticed blood with a large clot. Did not strain to have the BM. Is concerned for hemorrhoids. Also reports RLQ abd cramping today. Has a h/o endometriosis which required laparoscopic surgery. Denies nausea and vomiting. Patient History: Past Medical History: Diagnosis Date ADHD (attention deficit hyperactivity disorder) Anxiety Arthritis Brain concussion 2010, 2009 Chronic bronchitis (CMS/HCC) (HCC) Depression Gastric reflux GERD (gastroesophageal reflux disease) PRN tums IIH (idiopathic intracranial hypertension) Pseudotumor cerebri. reports last spinal tap 2017. 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 on Bumex [...] Social History Tobacco Use Smoking status: Never Smokeless tobacco: Never Substance and Sexual Activity Drug use: Yes Types: Alcohol Comment: ~3 drinks/month Sexual activity: Yes Partners: Male control/protection: I.U.D. Alcohol Use: Not At Risk Frequency of Alcohol Consumption: Monthly or less Average Number of Drinks: 1 or 2 Frequency of Binge Drinking: Never No current facility-administered medications for this encounter. Current Outpatient Medications: acetaminophen (TYLENOL) 500 mg tablet albuterol 2.5 mg /3 mL (0.083 %) nebulizer solution albuterol HFA (PROVENTIL HFA,VENTOLIN HFA,PROAIR HFA) 90 mcg/actuation inhaler budesonide-formoteroL (SYMBICORT) 160-4.5 mcg/actuation inhaler ergocalciferol (VITAMIN D) 50,000 unit capsule famotidine (PEPCID) 40 mg tablet fluticasone propionate (FLONASE) 50 mcg/actuation nasal spray furosemide (LASIX) 40 mg tablet galcanezumab-gnlm (Emgality Pen) 120 mg/mL pen injector ibuprofen (ADVIL,MOTRIN) 800 mg tablet levocetirizine (XYZAL) 5 mg tablet levonorgestreL (KYLEENA) IUD ondansetron ODT (ZOFRAN-ODT) 4 mg disintegrating tablet oxyCODONE-acetaminophen (PERCOCET) 5-325 mg per tablet rimegepant (Nurtec ODT) tablet,disintegrating SUMAtriptan (IMITREX) 50 mg tablet triamcinolone (KENALOG) 0.1 % cream Review of Systems Review of Systems All systems reviewed and are neg or non contributory for this patients presentation today other than as stated in the HPI . Physical Exam ED Triage Vitals [10/22/21 0958] Temp Pulse Resp BP SpO2 36.7 ??C (98 ??F) 75 20 148/100 97 % Temp src Heart Rate Source Patient Position BP Location FiO2 (%) Oral Pulse Oximetry Sitting Right arm -- Height Height Method Weight Weight Method 1.702 m (5' 7 ) Stated 115.7 kg (255 lb) Stated Physical Exam Vitals reviewed. Exam conducted with a morgue librarian present. Constitutional: General: She is not in acute distress. Appearance: Normal appearance. HENT: Head: Normocephalic and atraumatic. Right Ear: External ear normal. Left Ear: External ear normal. Nose: Nose normal. Mouth/Throat: Mouth: Mucous membranes are moist. Eyes: Extraocular Movements: Extraocular movements intact. Conjunctiva/sclera: Conjunctivae normal. Pulmonary: Effort: No respiratory distress. Abdominal: Tenderness: There is abdominal tenderness. Genitourinary: Rectum: No external hemorrhoid or internal hemorrhoid. Musculoskeletal: General: Normal range of motion. Cervical back: Normal range of motion. Skin: General: Skin is warm and dry. Neurological: Mental Status: She is alert and oriented to person, place, and time. Mental status is at baseline. Psychiatric: Mood and Affect: Mood normal. Behavior: Behavior normal. Procedures [facility] Labs Reviewed URINALYSIS AND REFLEX TO MICROSCOPIC AND CULTURE - Abnormal Result Value Color, ur Straw Clarity, ur Clear Specific gravity, ur 1.010 pH, urine 6.5 Protein, ur ql Negative Glucose, ur ql Negative Ketones, ur Negative Bilirubin, ur 1+ (*) Blood, ur Negative Urobilinogen, ur <2.0 Nitrite, ur Negative Leukocyte esterase, ur Negative UA reflex comment Value: Reflex conditions for microscopic UA and culture not met. Narrative: Urine pH is affected by diet, medications, systemic acid-base disturbances, and renal tubular function. pH may affect urinary stone formation. For example, urine pH below 6.0 may help reduce the tendency for calcium phosphate stones and pH greater than 6.0 may reduce the tendency for uric acid stone formation. Source: [employer].Last revised 02-23-2017 POCT HCG, URINE - Normal HCG, ur, POC Negative Lot Number [id number] QC Backgroud Clear Acceptable QC Control Line Acceptable CBC WITH AUTO DIFFERENTIAL WBC 7.6 Hgb 12.3 Hct 37.2 Plt 299 MPV 10.3 RBC 4.12 MCV 90.3 MCH 29.9 MCHC 33.1 RDW CV 14.5 RDW SD 47.9 NRBC abs 0.00 COMPREHENSIVE METABOLIC PANEL Sodium 139 Potassium, pl 4.2 Chloride 108 CO2 26 Anion gap 5 BUN 10 Creatinine 0.60 Glucose 83 Calcium 9.5 Bilirubin, total 0.3 Protein, pl 7.2 Albumin 4.3 Alk phos 94 ALT 13 AST 11 DIFFERENTIAL AUTO Neutrophil abs 4.3 Imm gran abs 0.0 Lymphocyte abs 2.7 Monocyte abs 0.5 Eosinophil abs 0.1 Basophil abs 0.0 Neutrophil pct 56.4 Imm gran pct 0.3 Lymphocyte pct 35.5 Monocyte pct 6.2 Eosinophil pct 1.2 Basophil pct 0.4 EGFR eGFR 124 POCT CREATININE FOR CONTRAST EVALUATION Creatinine POC 0.70 POCT CREATININE FOR CONTRAST EVALUATION CT Abdomen Pelvis W Contrast EXAM DESCRIPTION: CT ABDOMEN PELVIS W CONTRAST REASON FOR STUDY: Bloody stools and right lower quadrant cramping today. TECHNIQUE: CT scan of the abdomen and pelvis performed with intravenous and without oral contrast using helical scanning technique with dynamic intravenous contrast injection. Reconstructed coronal and sagittal MPR images reviewed. All images stored on PACS. Automated exposure control was used as a dose optimization technique for this examination. CONTRAST TYPE/DOSE: 75mL of IOVERSOL 350 MG IODINE/ML INTRAVENOUS SYRINGE injected via intravenous COMPARISON: CT dated June 19, 2021 FINDINGS: LOWER CHEST: No significant pulmonary abnormalities. No effusion. LIVER: Normal size. No identified cystic or solid masses. GALLBLADDER: No stones identified. No wall thickening or inflammatory changes. BILE DUCTS: No intrahepatic or extrahepatic ductal dilatation. SPLEEN: Normal size. No focal lesions. PANCREAS: No identified cystic or solid masses. No significant calcifications. No adjacent inflammation or peripancreatic fluid collections. Pancreatic duct not dilated. ADRENALS: Normal. KIDNEYS/URINARY TRACT: No identified significant cystic or solid masses. Punctate left renal calcifications are seen.. No hydronephrosis or hydroureter. Symmetric enhancement. Urinary bladder is unremarkable. GI: No dilated bowel loops. No obvious wall thickening. Normal appendix. No significant diverticular disease. PERITONEUM: No ascites or free air. RETROPERITONEUM: No mass or adenopathy. REPRODUCTIVE: IUD in place. No adnexal mass. VASCULATURE: No abdominal aortic aneurysm. MUSCULOSKELETAL: No significant abnormality. OTHER: No other abnormality. IMPRESSION: 1. No acute findings identified to suggest etiology of patient's symptoms. 2. Left kidney punctate calcifications. REFERENCE: Unless otherwise specified, no follow-up imaging is recommended for incidental renal and adrenal lesions per consensus recommendations based on imaging criteria. Further lab evaluation could be pursued based on clinical findings. Management of the Incidental Renal Mass on CT: A White Paper of the ACR Incidental Findings Committee. J Am Kaylene Radiol. 2018 Mar;15(2):264-273. Management of Incidental Adrenal Masses: A White Paper of the ACR Incidental Findings Committee. J Am Kaylene Radiol. 2017 Sep;14(8):7617-0575. THIS IS AN ELECTRONICALLY VERIFIED FINAL REPORT 10/22/2021 2:14 PM - Electronically signed by Mo MARS T: Report ID: [id number] Reading Location: [id number] BP 133/88 Pulse 61 Temp 36.7 ??C (98 ??F) (Oral) Resp 18 Ht 170.2 cm (5' 7 ) Wt 115.7 kg (255 lb) SpO2 100% BMI 39.94 kg/m?? [facility] ED Course as of 10/22/21 1750 Time: 10/22 1346 Comment: Spoke with CT. Pt is next on their list. By: Irma Quintana PA Time: 10/22 1510 Comment: Labs unremarkable. Hgb stable at 12.3. CT scan abd/pelvis with no acute findings to explain the pt's sx. Will discharge with outpatient pelvic US order form in addition to OBGYN and GI follow up. Recommended PCP follow up next week as well. Return to the ED with any new or worsening symptoms. Pt understands and agrees. All questions answered. By: Irma Quintana PA This examination was transcribed using the [employer] voice recognition system without human senior electrical controls engineer. In an effort to expedite patient care, this report has not been adjusted for typographical, grammatical, and syntax by a trained medical driver. Close outpatient follow-up with a low threshold to return has been mandated , concerning symptoms have been emphasized in detail, and this patient expresses understanding Clinical Impression: Abdominal pain Bloody stools Irma Quintana PA 10/22/21 1750 Cosigned by Saba Estrada MD at 10/22/2021 7:58 PM CDT * Reinaldo Beasley RN - 10/22/2021 10:01 AM CDT Pt states blood and clot noted in stool this morning. Prior hx of hemorrhoid. documented in this encounter Plan of Treatment [...] Comments CT ABDOMEN PELVIS W CONTRAST ED 10/22/2021 1:55 PM CDT POCT CREATININE FOR CONTRAST EVALUATION Routine 10/22/2021 12:31 PM CDT POCT HCG, URINE STAT 10/22/2021 12:30 PM CDT URINALYSIS AND REFLEX TO MICROSCOPIC AND CULTURE STAT 10/22/2021 12:23 PM CDT EGFR STAT 10/22/2021 11:58 AM CDT DIFFERENTIAL AUTO STAT 10/22/2021 11: 58 AM CDT CBC WITH AUTO DIFFERENTIAL STAT 10/22/2021 11:58 AM CDT COMPREHENSIVE METABOLIC PANEL STAT 10/22/2021 11:58 AM CDT documented in this encounter Results * CT Abdomen Pelvis W Contrast (10/22/2021 1:55 PM CDT) Anatomical Region Laterality Modality Body N/A Computed Tomogra phy 10/22/2021 2:06 PM CDT Narrative 10/22/2021 2:14 PM CDT EXAM DESCRIPTION: ?? CT ABDOMEN PELVIS W CONTRAST REASON FOR STUDY: Bloody stools and right lower quadrant cramping today. TECHNIQUE: CT scan of the abdomen and pelvis performed with intravenous and ?? without ??oral contrast using helical scanning technique with dynamic intravenous contrast injection. Reconstructed coronal and sagittal MPR images reviewed. All images stored on PACS. Automated exposure control was used as a dose optimization technique for this examination. CONTRAST TYPE/DOSE: ?? 75mL of IOVERSOL 350 MG IODINE/ML INTRAVENOUS SYRINGE ?? injected via ?? intravenous COMPARISON: ?? CT dated June 19, 2021 FINDINGS: LOWER CHEST: ?? No significant pulmonary abnormalities. No effusion. LIVER: ?? Normal size. ??No identified cystic or solid masses. GALLBLADDER: ?? No stones identified. No wall thickening or inflammatory changes. BILE DUCTS: ?? No intrahepatic or extrahepatic ductal dilatation. SPLEEN: ?? Normal size. ??No focal lesions. PANCREAS: ?? No identified cystic or solid masses. No significant calcifications. No adjacent inflammation or peripancreatic fluid collections. Pancreatic duct not dilated. ?? ADRENALS: ?? Normal. KIDNEYS/URINARY TRACT: ?? No identified significant cystic or solid masses. ?? Punctate left renal calcifications are seen.. ??No hydronephrosis or hydroureter. Symmetric enhancement. ?Urinary bladder is unremarkable. GI: ?? No dilated bowel loops. No obvious wall thickening. ??Normal appendix. ?? No significant diverticular disease. PERITONEUM: ?? No ascites or free air. RETROPERITONEUM: ?? No mass or adenopathy. REPRODUCTIVE: ?? IUD in place. ??No adnexal mass. VASCULATURE: ?? No abdominal aortic aneurysm. MUSCULOSKELETAL: ?? No significant abnormality. OTHER: ?? No other abnormality. IMPRESSION: ?? 1. ?? No acute findings identified to suggest etiology of patient's symptoms. 2. ?? Left kidney punctate calcifications. REFERENCE: Unless otherwise specified, no follow-up imaging is recommended for incidental renal and adrenal lesions per consensus recommendations based on imaging criteria. Further lab evaluation could be pursued based on clinical findings. Management of the Incidental Renal Mass on CT: A White Paper of the ACR Incidental Findings Committee. J Am Kaylene Radiol. 2018 Mar;15(2):264-273. Management of Incidental Adrenal Masses: A White Paper of the ACR Incidental Findings Committee. J Am Kaylene Radiol. 2017 Sep;14(8):4955-0375. THIS IS AN ELECTRONICALLY VERIFIED FINAL REPORT 10/22/2021 2:14 PM - Electronically signed by ??Mo Velasquez: ??10/22/2021 2:14 PM T: Report ID: [id number] Reading Location: ??[id number] Procedure Note Mo Galvan MD - 10/22/2021 EXAM DESCRIPTION: CT ABDOMEN PELVIS W CONTRAST REASON FOR STUDY: Bloody stools and right lower quadrant cramping today. TECHNIQUE: CT scan of the abdomen and pelvis performed with intravenousand without oral contrast using helical scanning technique with dynamic intravenous contrast injection. Reconstructed coronal and sagittal MPRimages reviewed. All images stored on PACS. Automated exposure control was used as a dose optimization technique forthis examination. CONTRAST TYPE/DOSE: 75mL of IOVERSOL 350 MG IODINE/ML INTRAVENOUSSYRINGE injected via intravenous COMPARISON: CT dated June 19, 2021 FINDINGS: LOWER CHEST: No significant pulmonary abnormalities. Noeffusion. LIVER: Normal size. No identified cystic or solid masses. GALLBLADDER: No stones identified. No wall thickening or inflammatory changes. BILE DUCTS: No intrahepatic or extrahepatic ductal dilatation. SPLEEN: Normal size. No focal lesions. PANCREAS: No identified cystic or solid masses. No significant calcifications. No adjacent inflammation or peripancreatic fluidcollections. Pancreatic duct not dilated. ADRENALS: Normal. KIDNEYS/URINARY TRACT: No identified significant cystic or solid masses. Punctate left renal calcifications are seen.. No hydronephrosis or hydroureter. Symmetric enhancement. Urinary bladder is unremarkable. GI: No dilated bowel loops. No obvious wall thickening. Normalappendix. No significant diverticular disease. PERITONEUM: No ascites or free air. RETROPERITONEUM: No mass or adenopathy. REPRODUCTIVE: IUD in place. No adnexal mass. VASCULATURE: No abdominal aortic aneurysm. MUSCULOSKELETAL: No significant abnormality. OTHER: No other abnormality. IMPRESSION: 1. No acute findings identified to suggest etiology of patient'ssymptoms. 2. Left kidney punctate calcifications. REFERENCE: Unless otherwise specified, no follow-up imaging is recommendedfor incidental renal and adrenal lesions per consensus recommendations basedon imaging criteria. Further lab evaluation could be pursued based onclinical findings. Management of the Incidental Renal Mass on CT: A White Paper of the ACR Incidental Findings Committee. J Am Kaylene Radiol. 2018 Mar;15(2):264-273. Management of Incidental Adrenal Masses: A White Paper of the ACRIncidental Findings Committee. J Am Kaylene Radiol. 2017 Sep;14(8):4135-1682. THIS IS AN ELECTRONICALLY VERIFIED FINAL REPORT 10/22/2021 2:14 PM - Electronically signed by Mo MARS T: Report ID: [id number] Reading Location: [id number] Irma [facility] IMG CT PROCEDURES Final Result * POCT creatinine for contrast evaluation (10/22/2021 12:31 PM CDT) Creatinine POC 0.70 0.60 - 1.10 mg/dL [facility] Blood 10/22/2021 12:3 1 PM CDT 10/22/2021 12:31 PM CDT Notinfile Unknown POINT OF CARE TEST ORDERABLES Final Result ANGELICA [address] [facility] [place] [address] * POCT hCG, urine (10/22/2021 12:30 PM CDT) HCG, ur, POC Negative Lot Number [id number] QC Backgroud Clear Acceptable QC Control Line Acceptable Urine 10/22/2021 12:3 0 PM CDT Irma MOJICA POINT OF CARE TEST ORDERABLES Fi nal Result * (ABNORMAL) Urinalysis reflex to microscopic and culture Urine (10/22/2021 12:23 PM CDT) Color, ur Straw Yellow [facility] Clarity, ur Clear Clear [facility] Specific gravity, ur 1.010 1.003 - 1.030 [facility] pH, urine 6.5 [facility] Protein, ur ql Negative Negative [facility] Glucose, ur ql Negative Negative [facility] Ketones, ur Negative Negative [facility] Bilirubin, ur 1+(A) Negative [facility] Blood, ur Negative Negative [facility] Urobilinogen, ur <2.0 <2.0 mg/dL [facility] Nitrite, ur Negative Negative [facility] Leukocyte esterase, ur Negative Negative [facility] UA reflex comment Reflex conditions for microscopic UA and culture not met. [facility] Urine 10/22/2021 12:2 3 PM CDT 10/22/2021 12:30 PM CDT [facility] ANGELICA VERDUGO - 10/22/2021 12:33 PM CDT ?? Urine pH is affected by diet, medications, systemic acid-base disturbances, and renal tubular function. ??pH may affect urinary stone formation. ??For example, urine pH below 6.0 may help reduce the tendency for calcium phosphate stones and pH greater than 6.0 may reduce the tendency for uric acid stone formation. Source: [place] [employer]. Last revised 02-23-2017 us Irma [facility] LAB MICROBIOLOGY - GENERAL ORDER JOSE Final Result ANGELICA [address] [facility] Department [place] [address] * eGFR (10/22/2021 11:58 AM CDT) eGFR 124 mL/min/1. 73 m2 ANGELICA VERDUGO Comment: Interpretive [...] interpretive data was last reviewed 2020. Blood 10/22/2021 11:5 8 AM CDT 10/22/2021 12:01 PM CDT us Irma [facility] LAB BLOOD ORDERABLES Final Resul t [facility] [address] [facility] Department [place] [address] * Differential, auto (10/22/2021 11:58 AM CDT) Neutrophil abs 4.3 1.7 - 6.5 K/cumm [facility] Imm gran abs 0.0 0.0 - 0.1 K/cumm [facility] Lymphocyte abs 2.7 0.8 - 3.3 K/cumm [facility] Monocyte abs 0.5 0.2 - 0.8 K/cumm [facility] Eosinophil abs 0.1 0.0 - 0.5 K/cumm [facility] Basophil abs 0.0 0.0 - 0.1 K/cumm [facility] Neutrophil pct 56.4 % [facility] Comment: Interpretive Data Percent cell count reference ranges are not reported, since discordance with absolute values may lead to misinterpretation of CBC data. Current Interpretive Data was last revised on 2017. Imm gran pct 0.3 % [facility] Comment: Interpretive Data Percent cell count reference ranges are not reported, since discordance with absolute values may lead to misinterpretation of CBC data. Current Interpretive Data was last revised on 2017. Lymphocyte pct 35.5 % [facility] Comment: Interpretive Data Percent cell count reference ranges are not reported, since discordance with absolute values may lead to misinterpretation of CBC data. Current Interpretive Data was last revised on 2017. Monocyte pct 6.2 % [facility] Comment: Interpretive Data Percent cell count reference ranges are not reported, since discordance with absolute values may lead to misinterpretation of CBC data. Current Interpretive Data was last revised on 2017. Eosinophil pct 1.2 % [facility] Comment: Interpretive Data Percent cell count reference ranges are not reported, since discordance with absolute values may lead to misinterpretation of CBC data. Current Interpretive Data was last revised on 2017. Basophil pct 0.4 % [facility] Comment: Interpretive Data Percent cell count reference ranges are not reported, since discordance with absolute values may lead to misinterpretation of CBC data. Current Interpretive Data was last revised on 2017. Blood 10/22/2021 11:5 8 AM CDT 10/22/2021 12:01 PM CDT Irma [facility] BLOOD ORDERABLES Final Resul t [facility] [address] [facility] Department [place] [address] * Comprehensive metabolic panel (10/22/2021 11:58 AM CDT) Sodium 139 135 - 145 mmol/L [facility] Potassium, pl 4.2 3.3 - 4.9 mmol/L [facility] Chloride 108 97 - 110 mmol/L [facility] CO2 26 22 - 32 mmol/L [facility] Anion gap 5 2 - 15 mmol/L [facility] BUN 10 8 - 25 mg/dL [facility] Creatinine 0.60 0.60 - 1.10 mg/dL [facility] Glucose 83 70 - 199 mg/dL [facility] Comment: Interpretive Data Fasting glucose >/= 126 [...] interpretive data was last revised 2016. Calcium 9.5 8.5 - 10.3 mg/dL [facility] Bilirubin, total 0.3 0.1 - 1.2 mg/dL [facility] Protein, pl 7.2 6.5 - 8.5 g/dL [facility] Albumin 4.3 3.5 - 5.0 g/dL [facility] Alk phos 94 40 - 130 Units/L [facility] ALT 13 7 - 45 Units/L [facility] AST 11 10 - 45 Units/L [facility] Blood 10/22/2021 11:5 8 AM CDT 10/22/2021 12:01 PM CDT Irma [facility] BLOOD ORDERABLES Final Resul t Performing Organization Address City/[facility] Co de Phone Number ANGELICA [address] [place] [address] * CBC with auto differential (10/22/2021 11:58 AM CDT) WBC 7.6 3.8 - 9.9 K/cumm [facility] Hgb 12.3 11.9 - 15.5 g/dL [facility] Hct 37.2 35.6 - 45.5 % [facility] Plt 299 150 - 400 K/cumm [facility] MPV 10.3 9.1 - 12.3 fL [facility] RBC 4.12 3.90 - 5.20 M/cumm [facility] MCV 90.3 81.3 - 96.4 fL [facility] MCH 29.9 27.1 - 33.3 pg [facility] MCHC 33.1 32.3 - 35.7 g/dL [facility] RDW CV 14.5 11.1 - 14.9 % [facility] RDW SD 47.9 35.7 - 48.1 fL [facility] NRBC abs 0.00 0.00 - 0.01 K/cumm [facility] Blood 10/22/2021 11:5 8 AM CDT 10/22/2021 12:01 PM CDT Irma [facility] BLOOD ORDERABLES Final Resul t Performing Organization Address City/[facility] Co de Phone Number ANGELICA [address] [facility] [place] [address] documented in this encounter Visit Diagnoses Diagnosis Abdominal pain- Primary Abdominal pain, unspecified site Bloody stools documented in this encounter Administered Medications Inactive Administered Medications - up to 3 most recent administrations Medication Order MAR Action Action Date Dose Rate Site ioversoL (OPTIRAY 350) syringe 75 mL 75 mL, intravenous, Once in imaging, contrast, Starting on Mon10/22/21 at 1347, For 1 dose Contrast Given 10/22/2021 1:56 PM CDT 75 mL documented in this encounter Active and Recently Administered Medications Times are shown in CDT. PRN Medication Order 10/20/2021 10/21/2021 10/22/2021 ioversoL (OPTIRAY 350) syringe 75 mL (COMPLETED) 75 mL, intravenous, Once in imaging, contrast, Starting on Mon10/22/21 at 1347, For 1 dose 1356 (Contrast Given - Provider: RT Melva) documented in this encounter Orders IV Count Last Ordered Date First Orde red Date SALINE LOCK IV 1 10/22/2021 documented in this encounter Care Teams Transmission Technician Relationship Specialty Start Date End Date Daily Cruz MD PCP - General Family Medicine 03/04/21 documented as of this encounter
--- OUTSIDE RECORDS SUMMARY | 2024-02-21 19:37 | XMS_ITS | Encounter Summary ---
Author Organization [facility] Address [address] [facility] [address] [place] [address] Care Team Providers Care Rotary Drum Dyer Name Role Phone Daily Cruz MD Primary Care Provider [phone] Reason for Visit * Reason Onset Date Comments Additional Services Or Orders 12/15/2021 Encounter Details Date Type Department Care Team (Late st Contact Info) Description 12/15/2021 Telephone [facility] Family Medicine at [place] [address] [facility] [address] [place] [address] Daily Cruz MD [address] [place] [address] [address] [place] [address] Additional Services Or Orders Social History [...] on file Legal Sex Female 3:37 PM 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 condition/symptom, date of COVID exposure if applicable): wrong test ordered Details Regarding Additional Services (e.g. type of home health, type of equipment, type of test, etc.): wrong order for fecal was put in it needs to be put in as a Lactoferrin because she is over the age of 17 Where will services be performed? (if outside of the practice, facility name, address, phone/fax offacility): [facility] Lab Caller's Callback #: [phone] Additional Comments: Lab already has stool sample and needs this put in right away Sending high priority Does message need to be routed?Yes-Action Needed [...] as of this encounter Visit Diagnoses Diagnosis Blood in stool- Primary documented in this encounter Care Teams Rotary Drum Dyer Relationship Specialty Start Date End Date Daily Cruz MD PCP - General Family Medicine 03/04/21 documented as of this encounter
--- OUTSIDE RECORDS SUMMARY | 2024-02-21 19:37 | XMS_ITS | Encounter Summary ---
Author Organization [facility] Address [address] [facility] [address] [place] [address] Care Team Providers Care Hospitality House Supervisor Name Role Phone Daily Cruz MD Primary Care Provider [phone] Reason for Referral * Consultation (Urgent) - Closed Specialty Diagnoses / Procedures Referred By Matt t Referred To Contact Gastroenterology Diagnoses RLQ abdominal pain Blood in stool Daily Cruz MD Phone: tel: fax: Makayla Fleming MD [facility] [address] [place] [address] Phone: tel: fax: Referral ID Status Reason Start Date Expiration Date V isits Requested Visits Authorized [id number] Closed Specialty Services Required 10/26/2021 11/25/2022 1 1 Question Answer Please select the performing region: External Order [171] To provider: MAKAYLA FLEMING [[id number]] # of visits: 1 Encounter Details Date Type Department Care Team (Late st Contact Info) Description 10/26/2021 8:15 AM CDT Telemedicine [facility] Family Medicine at [place] [address] [facility] [address] [place] [id number] Daily Cruz MD [address] [facility] [address] [place] [address] Endometriosis (Primary Dx); RLQ abdominal pain; Blood in stool Social History Tobacco Use Types Packs/Day Years [...] - - Weight 115.7 kg (255 lb) 10/26/2021 8:33 AM CDT Height 170.2 cm (5' 7 ) 10/26/2021 8:33 AM CDT Body Mass Index 39.94 10/26/2021 8:33 AM CDT documented in this encounter Patient Instructions * Attachments The following attachments cannot be sent through Care Everywhere. 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 Patient ID: Jud Leung is a 31 y.o. female. Visit Date: 10/26/2021 This was a telemedicine visit with Jud Leung alone which took place via real-time video connection with [employer]. During the visit, I was located in the office and the patient was located at work in the [facility]. The patient visit started at 8:39 and ended at 8:45. The patient has been informed that the visit may not be secure and acknowledged the information. I have explained the option of participating in a telephone or video visit during the COVID-19 public [facility] emergency to the patient. After being given an opportunity to ask questions about and discuss this type of visit, the patient verbally consented to proceeding with the telephone/video visit.The patient understands that this service replaces an office visit and they may be billed and/or responsible for any applicable copayments. Chief Complaint Rectal bleeding HPI On 10/22/21 patient ended up in the ER with RLQ abdominal pain and profuse rectal bleeding. cT abd/pelvis and labs were all normal. Patient is concerned her endometriosis may have flared up as the abdominal pain is similar to before when it did Current Outpatient Medications: acetaminophen (TYLENOL) 500 mg [...] not swallow., Disp: 1 each, Rfl: 1 ergocalciferol (VITAMIN D) 50,000 unit capsule, Take [...] Disp: 16 g, Rfl: 0 furosemide (LASIX) 40 mg tablet, Take 1 [...] per day., Disp: 30 tablet, Rfl: 0 rimegepant (Nurtec ODT) tablet,disintegrating, Take 1 tablet (75 mg total) by mouth daily as needed(headache), Disp: 16 tablet, Rfl: 0 SUMAtriptan (IMITREX) 50 mg [...] the groin, Disp: 454 g, Rfl: 2 Review of Systems Constitutional: Negative for fatigue and fever. HENT: Negative for congestion, ear pain, nosebleeds and rhinorrhea. Eyes: Negative for pain and redness. Respiratory: Negative for cough and shortness of breath. Cardiovascular: Negative for chest pain and palpitations. Gastrointestinal: Positive for anal bleeding and blood in stool. Negative for abdominal pain and diarrhea. Endocrine: [...] and Affect: Mood normal. Behavior: Behavior normal. EXAM DESCRIPTION: CT ABDOMEN PELVIS W CONTRAST [...] patient's symptoms. 2. Left kidney punctate calcifications. WBC 3.8 - 9.9 K/cumm 7.6 14.6 High 12.1 High 9.8 9.5 9.6 R 13.35 High R Hgb 11.9 - 15.5 g/dL 12.3 12.5 13.5 12.8 13.1 13.3 13.5 Hct 35.6 - 45.5 % 37.2 38.5 40.8 39.0 40.1 41.1 41.9 Plt 150 - 400 K/cumm 299 Latest Reference Range & Units 10/22/21 11:58 Sodium 135 - 145 mmol/L 139 Potassium, pl 3.3 - 4.9 mmol/L 4.2 Chloride 97 - 110 mmol/L 108 CO2 22 - 32 mmol/L 26 Anion gap 2 - 15 mmol/L 5 BUN 8 - 25 mg/dL 10 Creatinine 0.60 - 1.10 mg/dL 0.60 Glucose 70 - 199 mg/dL 83 Calcium 8.5 - 10.3 mg/dL 9.5 Bilirubin, total 0.1 - 1.2 mg/dL 0.3 Protein, pl 6.5 - 8.5 g/dL 7.2 Albumin 3.5 - 5.0 g/dL 4.3 eGFR mL/min/1.73 m2 124 Alk phos 40 - 130 Units/L 94 AST 10 - 45 Units/L 11 ALT 7 - 45 Units/L 13 Diagnoses and all orders for this visit: Endometriosis (Primary) Assessment & Plan: New Order pelvic/transvaginal ultrasound Refer to GI and consulting analyst Orders: - Ambulatory referral to Obstetrics / Gynecology; Future - US Transvaginal; Future - US Pelvis Complete; Future RLQ abdominal pain Assessment & Plan: New Order pelvic/transvaginal ultrasound Refer to GI and consulting analyst Orders: - Ambulatory referral to Obstetrics / Gynecology; Future - Ambulatory referral to Gastroenterology; Future - US Transvaginal; Future - US Pelvis Complete; Future Blood in stool Assessment & Plan: New Order pelvic/transvaginal ultrasound Refer to GI and consulting analyst Orders: - Ambulatory referral to Gastroenterology; Future Daily Cruz MD documented in this encounter Miscellaneous Notes * Assessment & Plan Note - Daily Cruz MD - 10/26/2021 9:58 AM CDT Associated Problem(s): Endometriosis New Order pelvic/transvaginal ultrasound Refer to GI and consulting analyst * Assessment & Plan Note - Daily Cruz MD - 10/26/2021 9:58 AM CDT Associated Problem(s): Blood in stool (Resolved 02/22/2023) New Order pelvic/transvaginal ultrasound Refer to GI and consulting analyst * Assessment & Plan Note - Daily Cruz MD - 10/26/2021 9:58 AM CDT Associated Problem(s): RLQ abdominal pain New Order pelvic/transvaginal ultrasound Refer to GI and consulting analyst documented in this encounter Plan of Treatment Scheduled Referrals Name Type Priority Associated Diagnoses Order Schedule Ambulatory referral to Gastroenterology Outpatient Referral Routine RLQ abdominal pain Blood in stool Expected: 10/26/2021 (Approximate), Expires: 10/26/2022 documented as of this encounter Goals Goal [...] as of this encounter Visit Diagnoses Diagnosis Endometriosis- Primary Endometriosis, site unspecified RLQ abdominal pain Abdominal pain, right lower quadrant Blood in stool documented in this encounter Care Teams Hospitality House Supervisor Relationship Specialty Start Date End Date Daily Cruz MD PCP - General Family Medicine 03/04/21 documented as of this encounter
--- OUTSIDE RECORDS SUMMARY | 2024-02-21 19:37 | XMS_ITS | Encounter Summary ---
Author Organization [facility] Address [address] [place] [address] Care Team Providers Care Mash Filter Cloth Changer Name Role Phone Daily Cruz MD Primary Care Provider [phone] [phone] Reason for Visit * Reason Comments Rectal Bleeding Blood clot the size of pt's palm came out once. Steady stream of blood came out. Pt stated she did not strain, but was still bleeding. Pt went to ER and not much of an explanation was found. Endometriosis Pt believes it may b e from her having endometriosis. Abdominal Cramping Abdominal Pain Constipation Diarrhea Colonoscopy CSC/EGD not done in past. * Consultation (Urgent) - Closed Specialty Diagnoses / Procedures Referred By Matt burk Referred To Contact Gastroenterology Diagnoses RLQ abdominal pain Blood in stool Daily Cruz MD Phone: tel: fax: Jeffrey Fleming MD [address] [place] [address] Phone: tel: fax: Referral ID Status Reason Start Date Expiration Date V isits Requested Visits Authorized [id number] Closed Specialty Services Required 10/26/2021 11/25/2022 1 1 Encounter Details Date Type Department Care Team (Latest Contact Info) Description 11/16/2021 7:30 AM CDT Office Visit [facility] [place] [address] [place] [id number] Jeffrey Fleming MD [address] [place] [address] Rectal bleeding (Primary Dx); RLQ abdominal pain; Gastroesophageal reflux disease without esophagitis; Constipation, unspecified constipation type; Diarrhea, unspecified type [...] on file Legal Sex 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 Gender Identity Female 03/02/2020 4:27 PM SIGNAL MAINTAINER HELPER Sexual Orientation Straight 07/10/2019 11 :13 PM CDT documented as of this encounter Last Filed Vital Signs Vital Sign Reading Time Taken Comments Blood Pressure 114/78 11/16/2021 7:31 AM CDT Pulse 80 11/16/2021 7:31 AM CDT Temperature - - Respiratory Rate - - Oxygen Saturation 98% 11/16/2021 7:31 AM CDT Inhaled Oxygen Concentration - - Weight 117.5 kg (259 lb) 11/16/2021 7:31 AM CDT Height 170.2 cm (5' 7 ) 11/16/2021 7:31 AM CDT Body Mass Index 40.57 11/16/2021 7:31 AM CDT documented in this encounter Ordered Prescriptions Prescription Sig Dispense Quantity Refills Last Filled Start Date End Date sodium, potassium & mag sulfates (SUPREP BOWEL KIT) 17.5-3.13-1.6 gram recon solnIndications:Loco wel Evacuation Take 360 mL by mouth once for 1 dose Take 180 mL by mouth daily for 2 days Mix 1 bottle with water and take at 6:00 the day prior to procedure. Drink 2nd bottle 4 hours prior to arrival. 180 mL 11/16/2021 11/16/2021 famotidine (PEPCID) 40 mg tabletIndications: Gastroesophageal reflux disease without esophagitis Take 1 tablet (40 mg total) by mouth daily 30 tablet 11/16/2021 08/30/2022 documented in this encounter Progress Notes * Jeffrey Fleming MD - 11/16/2021 7:30 AM CDT Images from the original note were not included. [facility] G[facility]ology [facility] [place] Subjective/Objective Patient ID: Jud Leung is a 31 y.o. White female. I am seeing this patient in consultation, requested by Daily Cruz MD for rectal bleeding. Chief Complaint Patient presents with Rectal Bleeding Blood clot the size of pt's palm came out once. Steady stream of blood came out. Pt stated she did not strain, but was still bleeding. Pt went to ER and not much of an explanation was found. Endometriosis Pt believes it may be from her having endometriosis. Abdominal Cramping Abdominal Pain Constipation Diarrhea Colonoscopy CSC/EGD not done in past. Chief Complaint Rectal Bleeding (Blood clot the size of pt's palm came out once. Steady stream of blood came out. Pt stated she did not strain, but was still bleeding. Pt went to ER and not much of an explanation was found. ), Endometriosis (Pt believes it may be from her having endometriosis. ), Abdominal Cramping, Abdominal Pain, Constipation, Diarrhea, and Colonoscopy (CSC/EGD not done in past. ) HPI Patient presents to GI clinic for evaluation of rectal bleeding that started two weeks ago. Bright red on the toilet paper as well as clots. Denies any constipation or hard stool. Was taking ibuprofen three times a day for a month for back pain. No rectal bleeding for the past week. Also has alternating constipation and diarrhea. Can go one week without BM. Went to ER 10/22/2021 for RLQ abdominal pain, sharp, stabbing, intermittent, once every few weeks. Norelieving or aggravating factors. Labs and CT scan was unremarkable. Also has chronic GERD, was taking Zantac in the past, also tried Prilosec in the past. Currently, takes TUMS prn. Past Medical History: Diagnosis Date ADHD (attention deficit hyperactivity disorder) Anxiety Arthritis Brain concussion 2010, 2009 Chronic bronchitis (CMS/HCC) ([facility]) Depression Gastric reflux GERD (gastroesophageal reflux disease) PRN tums IIH (idiopathic intracranial hypertension) Pseudotumor cerebri. reports last spinal tap 2017. 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 Seasonal allergies Seizures (CMS/HCC) ([facility]) off medication since 2018 with no [...] ENDOMETRIOSIS FULGURATION 2018 TONSILLECTOMY WISDOM TOOTH EXTRACTION Social History Tobacco Use Smoking status: Never Smokeless tobacco: Never Substance and Sexual Activity Drug use: Yes Types: Alcohol Comment: ~3 drinks/month Sexual activity: Yes Partners: Male control/protection: I.U.D. Alcohol Use: Not At Risk Frequency of Alcohol Consumption: Monthly or less Average Number of Drinks: 1 or 2 Frequency of Binge Drinking: Never Family History Problem Relation Age of Onset [...] Grandmother Depression Sister Anesthesia problems Neg Hx Allergies Allergen Reactions Acetazolamide Swollen tongue Tongue [...] comments) SEIZURE ACTIVITY Oxycodone-Acetaminophen Nausea And Vomiting HOME MEDICATIONS : vvlqkwaytwyni-ajyqtoz-ylcjwhmh (EXCEDRIN MIGRAINE) 250-250-65 mg per tablet furosemide (LASIX) 40 mg tablet levonorgestreL (KYLEENA) IUD tiZANidine (Zanaflex) 4 mg tablet acetaminophen (TYLENOL) 500 mg tablet albuterol 2.5 mg /3 mL (0.083 %) nebulizer solution albuterol HFA (PROVENTIL HFA,VENTOLIN HFA,PROAIR HFA) 90 mcg/actuation inhaler budesonide-formoteroL (SYMBICORT) 160-4.5 mcg/actuation inhaler ergocalciferol (VITAMIN D) 50,000 unit capsule famotidine (PEPCID) 40 mg tablet fluticasone propionate (FLONASE) 50 mcg/actuation nasal spray galcanezumab-gnlm (Emgality Pen) 120 mg/mL pen injector ibuprofen (ADVIL,MOTRIN) 800 mg tablet levocetirizine (XYZAL) 5 mg tablet ondansetron ODT (ZOFRAN-ODT) 4 mg disintegrating tablet oxyCODONE-acetaminophen (PERCOCET) 5-325 mg per tablet rimegepant (Nurtec ODT) tablet,disintegrating sodium, potassium & mag sulfates (SUPREP BOWEL KIT) 17.5-3.13-1.6 gram recon soln SUMAtriptan (IMITREX) 50 mg tablet triamcinolone (KENALOG) 0.1 % cream famotidine (PEPCID) 40 mg tablet Review of Systems Constitutional: Negative for chills and fever. HENT: Negative for mouth sores and sore throat. Eyes: Negative for pain and redness. Respiratory: Negative for cough and shortness of breath. Cardiovascular: Negative for chest pain and palpitations. Gastrointestinal: See HPI Endocrine: Negative for cold intolerance and heat intolerance. Musculoskeletal: Negative for arthralgias and back pain. Skin: Negative for color change and rash. Neurological: Negative for dizziness and light-headedness. Hematological: Negative for adenopathy. Does not bruise/bleed easily. Blood pressure 114/78, pulse 80, height 170.2 cm (5' 7 ), weight 117.5 kg (259 lb), SpO2 98 %. Body mass index is 40.57 kg/m??. Physical Exam Vitals reviewed. Constitutional: General: She is not in acute distress. HENT: Mouth/Throat: Mouth: Mucous membranes are moist. Pharynx: No oropharyngeal exudate. Eyes: Extraocular Movements: Extraocular movements intact. Conjunctiva/sclera: Conjunctivae normal. Cardiovascular: Rate and Rhythm: Normal rate and regular rhythm. Pulmonary: Effort: Pulmonary effort is normal. Breath sounds: Normal breath sounds. Abdominal: General: Bowel sounds are normal. There is no distension. Palpations: Abdomen is soft. There is no mass. Tenderness: There is no abdominal tenderness. There is no guarding or rebound. Comments: Rectal exam deferred by patient Skin: General: Skin is warm and dry. Neurological: General: No focal deficit present. Mental Status: She is alert and oriented to person, place, and time. Psychiatric: Mood and Affect: Mood normal. Behavior: Behavior normal. LABS Lab Results Component Value Date ALT 13 10/22/2021 AST 11 10/22/2021 ALKPHOS 94 10/22/2021 BILITOT 0.3 10/22/2021 No results found for: AMYLASE Lab Results Component Value Date WBC 7.6 10/22/2021 HGB 12.3 10/22/2021 HCT 37.2 10/22/2021 MCV 90.3 10/22/2021 Chemistry Component Value Date/Time SODIUM 139 10/22/2021 1158 POTASSIUM 4.2 10/22/2021 1158 CHLORIDE 108 10/22/2021 1158 CO2 26 10/22/2021 1158 BUNSER 10 10/22/2021 1158 CREATININE 0.70 10/22/2021 1231 CREATININE 0.60 10/22/2021 1158 GLUCOSE 83 10/22/2021 1158 Component Value Date/Time CALCIUM 9.5 10/22/2021 1158 ALKPHOS 94 10/22/2021 1158 AST 11 10/22/2021 1158 ALT 13 10/22/2021 1158 BILITOT 0.3 10/22/2021 1158 Assessment/Plan Diagnoses and all orders for this visit: Rectal bleeding (Primary) Assessment & Plan: Bright red blood per rectum with clots [...] understands and consents to having procedure done. Orders: - Ambulatory referral to Gastroenterology - Case Request Operating Room: ESOPHAGOGASTRODUODENOSCOPY, COLONOSCOPY - sodium, potassium & mag sulfates (SUPREP BOWEL KIT) 17.5-3.13-1.6 gram recon soln; Take 360 mL by mouth once for 1 dose Take 180 mL by mouth daily for 2 days Mix 1 bottle with water and take at6:00 the day prior to procedure. Drink 2nd bottle 4 hours prior to arrival. RLQ abdominal pain Assessment & Plan: Recently went to the ER for right lower quadrant abdominal pain that is sharp and stabbing, intermittent, once every few weeks. No aggravating or relieving factors. Labs and CT scan were unremarkable. Patient does have a history of endometriosis, and has follow up with OBGYN. -colonoscopy as above -further workup per OBGYN -if persists and workup negative, we will consider CT enterography Orders: - Ambulatory referral to Gastroenterology - Lipase; Future - Case Request Operating Room: ESOPHAGOGASTRODUODENOSCOPY, COLONOSCOPY Gastroesophageal reflux disease without esophagitis Assessment & [...] understands and consents to having procedure done. Orders: - famotidine (PEPCID) 40 mg tablet; Take 1 tablet (40 mg total) by mouth daily - Case Request Operating Room: ESOPHAGOGASTRODUODENOSCOPY, COLONOSCOPY Constipation, unspecified constipation type Assessment & Plan: History of chronic constipation. Can go 1 week without a bowel movement. -high-fiber diet -MiraLax daily p.r.n. Diarrhea, unspecified type Assessment & Plan: Diarrhea intermittently alternating with constipation. -we will order stool studies rule out infectious etiologies -colonoscopy as above Orders: - Stool culture Stool Rectum; Future - Ova and parasite examination Stool; Future - Leukocytes, fecal; Future - Cryptosporidium and giardia antigen assay Stool; Future - C. difficile testing Stool; Future - Celiac disease screen; Future - Case Request Operating Room: ESOPHAGOGASTRODUODENOSCOPY, COLONOSCOPY Return in about 8 weeks (around 01/11/2022). Jeffrey Fleming MD Voice recognition software ([employer]) was used to complete this document. Despite proofreading, graduate advisor variances and typographical errors may occur. documented in this encounter Miscellaneous Notes * Assessment & Plan Note - Jeffrey Fleming MD - 11/16/2021 8:16 AM CDTAssociated Problem(s): Gastroesophageal reflux disease without esophagitis [...] understands and consents to having procedure done. * Assessment & Plan Note - Jeffrey Fleming MD - 11/16/2021 8:16 AM CDTAssociated Problem(s): Diarrhea Diarrhea intermittently alternating with constipation. -we will order stool studies rule out infectious etiologies -colonoscopy as above * Assessment & Plan Note - Jeffrey Fleming MD - 11/16/2021 8:15 AM CDTAssociated Problem(s): Constipation (Deleted) History of chronic constipation. Can go 1 week without a bowel movement. -high-fiber diet -MiraLax daily p.r.n. * Assessment & Plan Note - Jeffrey Fleming MD - 11/16/2021 8:14 AM CDTAssociated Problem(s): RLQ abdominal pain Recently went to the ER for right lower quadrant abdominal pain that is sharp and stabbing, intermittent, once every few weeks. No aggravating or relieving factors. Labs and CT scan were unremarkable. Patient does have a history of endometriosis, and has follow up with OBGYN. -colonoscopy as above -further workup per OBGYN -if persists and workup negative, we will consider CT enterography * Assessment & Plan Note - Jeffrey Fleming MD - 11/16/2021 8:13 AM CDTAssociated Problem(s): Blood in stool (Resolved 02/22/2023) Bright red blood per rectum with clots [...] understands and consents to having procedure done. documented in this encounter Plan of Treatment [...] documented as of this encounter Results * C. difficile testing Stool (12/15/2021 8:03 AM CDT) C. diff result Negative, DNA Negative , DNA ANGELICA VERDUGO C. diff interp Negative for toxigenic Clostridioides (Clostridium) difficile. ??Analysis performed by detection of gene(s) encoding C. difficile toxin(s). ??The nucleic acid detection assay used is cleared by the [place] Food and Drug administration and its performance characteristics have been verified by the performing laboratory. ANGELICA VERDUGO Stool 12/15/2021 8:03 AM CDT 12/15/2021 9:57 AM CDT Jeffrey Fleming MD LAB MICROBIOLOGY - GENERAL ORDER JOSE Final Result ANGELICA VERDUGO [address] [place] [address] * Cryptosporidium and giardia antigen assay Stool (12/15/2021 8:03 AM CDT) Report Final Report: Negative for Giardia lamblia antigen Negative for Cryptosporidium antigen ANGELICA VERDUGO Comment:Testing performed by : [facility], [address] [place]., [address] Organism NEGATIVE FOR GIARDIA LAMBLIA ANTIGEN ANGELICA VERDUGO Organism NEGATIVE FOR CRYPTOSPORIDIUM ANTIGEN ANGELICA VERDUGO Stool 12/15/2021 8:03 AM CDT 12/15/2021 10:37 AM CDT Narrative ANGELICA VERDUGO - 12/16/2021 8:21 AM CDT Received in PVA and Formalin. Interpretive data: Testing performed by the [facility] using an immunoassay that detects Cryptosporidium and Giardia antigens in stool specimens. If comprehensive examination for ova and parasites is required, please request Ova and Parasite Examination . Current interpretative data was revised March 2020. Jeffrey Fleming MD LAB MICROBIOLOGY - GENERAL ORDER JOSE Final Result Performing Organization Address [facility] de Phone Number ANGELICA [facility] [facility] [place] [address] * Ova and parasite examination Stool (12/15/2021 8:03 AM CDT) Report Final Report: No parasites detected. Note: treatment with antibiotics; e.g., Clindamycin, Metronidazole , Tetracycline, and Trimethoprim- sulfa can adversely affect the detection of ova and parasites. Test performed by [facility], [address] [place] [address], [address]. ANGELICA VERDUGO Comment:Testing performed by : [facility], [address] [place]., [address] Stool 12/15/2021 8:03 AM CDT 12/15/2021 10:39 AM CDT Narrative ANGELICA - 12/20/2021 2:17 PM SIGNAL MAINTAINER HELPER Received in PVA and Formalin. Jeffrey Fleming MD LAB MICROBIOLOGY - GENERAL ORDER JOSE Final Result Performing Organization Address [facility] Co de Phone Number ANGELICA [facility] [place] [address] * Stool culture Stool Rectum (12/15/2021 8:03 AM CDT) Direct Specimen Exam Shiga Toxin Testing: Antigen detection assay for Shiga-toxin NEGATIVE for Shiga Toxin 1 and Shiga Toxin 2. ANGELICA Comment:Testing performed by : [facility], [address] [place]., [address] Report Final Report: No growth of enteric bacterial pathogens ANGELICA Comment:Testing performed by : [facility], [address] [place]., [address] Stool (Rectum) 12/15/2021 8: 03 AM CDT 12/15/2021 10:37 AM CDT Narrative ANGELICA - 12/19/2021 9:31 AM SIGNAL MAINTAINER HELPER Testing performed by [facility] ([phone]). Routine stool cultures include procedures to detect Salmonella, Shigella, Edwardsiella, Aeromonas, Pleisiomonas, Campylobacter, Yersinia, E. coli O157, and Shiga-like toxins. ?? Vibrio is cultured only upon special request. ??If Vibrio is suspected, please call the laboratory at [phone]. Interpretive data was last updated June 20, 2016. Jeffrey Fleming MD LAB MICROBIOLOGY - GENERAL ORDER JOSE Final Result Performing Organization Address [facility] Co de Phone Number [address] [place] [address] * Lipase (12/15/2021 7:45 AM CDT) Lipase 23 10 - 99 Units/L ANGELICA Blood 12/15/2021 7:45 AM CDT 12/15/2021 7:56 AM CDT Jeffrey Fleming MD LAB BLOOD ORDERABLES Final Resul t Performing Organization Address [facility] Co de Phone Number [address] [place] [address] documented in this encounter Visit Diagnoses Diagnosis Rectal bleeding- Primary Blood in stool RLQ abdominal pain Abdominal pain, right lower quadrant Gastroesophageal reflux disease without esophagitis Esophageal reflux Constipation, unspecified constipation type Diarrhea, unspecified type RLQ abdominal pain Abdominal pain, right lower quadrant Diarrhea, unspecified type documented in this encounter Discontinued Medications Medication Sig Discontinue Reason Start Date End Da te famotidine (PEPCID) 40 mg tablet Take 1 tablet (40 mg total) by mouth daily Reorder 09/22/2021 11/16/2021 documented as of this encounter Historical Medications * This list may reflect changes made after this encounter. acetaminophen-asp irin-caffeine (EXCEDRIN MIGRAINE) 250-250-65 mg per tablet Take 1 tablet by mouth every 6 (six) hours as needed 02/28/2023 tiZANidine (ZANAFLEX) 4 mg tablet Take 2 mg by mouth every 6 (six) hours as needed for muscle spasms 03/30/2022 added in this encounter Orders Outpatient Referral Count Last Ordered Date Fir st Ordered Date AMB REFERRAL TO GASTROENTEROLOGY 1 11/17/19 Case Request Count Last Ordered Date First Orde red Date CASE REQUEST OPERATING ROOM 1 11/16/2021 documented in this encounter Care Teams Mash Filter Cloth Changer Relationship Specialty Start Date End Date Daily Cruz MD PCP - General Family Medicine 03/04/21 documented as of this encounter
--- OUTSIDE RECORDS SUMMARY | 2024-02-21 19:37 | XMS_ITS | Encounter Summary ---
Author Organization [facility] Healthcare Address [address] [place] [address] Care Team Providers Care Keyboard Teacher Name Role Phone Daily Cruz MD Primary Care Provider [phone] Reason for Referral * Diagnostic Imaging (Routine) - Closed Specialty Diagnoses / Procedures Referred By Matt burk Referred To Contact Diagnoses Right foot pain Procedures XR Foot Right 3+ View Miranda Dean DPM Phone: tel: fax: [address] [phone] Referral ID Status Reason Start Date Expiration Date Visits Re quested Visits Authorized [id number] Closed 08/30/2021 09/29/2022 1 1 Reason for Visit * Diagnostic Imaging (Routine) - Closed Specialty Diagnoses / Procedures Referred By Matt burk Referred To Contact Diagnoses Right foot pain Procedures XR Foot Right 3+ View Miranda Dean DPM Phone: tel: fax: [address] [phone] Referral ID Status Reason Start Date Expiration Date Visits Re quested Visits Authorized [id number] Closed 08/30/2021 09/29/2022 1 1 Encounter Details Date Type Department Care Team (Latest Contact Info) Description 08/30/2021 12:42 PM CDT - 08/30/2021 11:59 PM CDT Hospital Encounter [facility] [address] [place] [address] Right foot pain Discharge Disposition: Discharge to [...] on file 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 Gender Identity Female 03/02/2020 4:27 PM HOUSEKEEPING AIDE Sexual Orientation Straight 07/10/2019 11 :13 PM CDT documented as of this encounter Medications at Time of Discharge acetaminophen (TYLENOL) 500 mg tablet Take 1,000 mg by mouth every 6 (six) hours as needed for pain 2 albuterol 2.5 mg /3 mL (0.083 %) nebulizer solution Take 3 mL (2.5 mg total) by nebulization every 6 (six) hours as needed for wheezing 75 mL 07/23/2021 3 albuterol HFA (PROVENTIL HFA,VENTOLIN HFA,PROAIR HFA) 90 mcg/actuation inhalerIndication s:Acute bronchitis due to other specified organisms INHALE 2 PUFFS EVERY 6 HOURS NEEDED FOR WHEEZING 6.7 each 1 08/11/2021 3 budesonide-formot Erica (SYMBICORT) 160-4.5 mcg/actuation inhalerIndication s:Acute bronchitis due to other specified organisms Inhale 2 puffs 2 (two) times a day Rinse mouth with water after use. Do not swallow. 1 each 1 07/20/2021 2 fluticasone propionate (FLONASE) 50 mcg/actuation nasal sprayIndications: Cough,Nasal congestion Administer 2 sprays into each nostril daily 16 g 12/18/2019 2 furosemide (LASIX) 20 mg tablet TAKE 1 TABLET BY MOUTH EVERY DAY 30 tablet 2 08/26/2021 2 galcanezumab-gnlm (Emgality Pen) 120 mg/mL pen injectorIndicatio ns:Intractable chronic migraine without aura and with status migrainosus Inject 120 mg under the skin every 30 (thirty) days 1 mL 09/09/2020 2 levocetirizine (XYZAL) 5 mg tabletIndications :Cough,Nasal congestion Take 1 tablet (5 mg total) by mouth daily 30 tablet 12/18/2019 2 levonorgestreL (KYLEENA) IUD 1 each by intrauterine route once 3 SUMAtriptan (IMITREX) 50 mg tablet TAKE 1 TABLET BY MOUTH ONCE NEEDED FOR MIGRAINE. MAY REPEAT DOSE AFTER 2 HOURS 9 tablet 09/18/2020 2 triamcinolone (KENALOG) 0.1 % creamIndications: Allergic contact [...] VIEWS Schedule Routine, Read Routine (OP Routine) 08/30/2021 12:51 PM CDT Right foot pain documented in this encounter Results * [...] Electronically signed by: Harsh Tejada MD Miranda Dianne DPM IMG XR PROCEDURES Final Result documented in this encounter Visit Diagnoses Diagnosis Right foot pain Pain in soft tissues of limb documented in this encounter Care Teams Keyboard Teacher Relationship Specialty Start Date End Date Daily Cruz MD PCP - General Family Medicine 03/04/21 documented as of this encounter
--- OUTSIDE RECORDS SUMMARY | 2024-02-21 19:37 | XMS_ITS | Encounter Summary ---
Author Organization [facility] Address [address] [facility] [address] [place] [address] Care Team Providers Care Oil Tester Name Role Phone Daily Cruz MD Primary Care Provider [phone] Reason for Visit * Reason Onset Date Comments Symptom Based Call 05/26/2022 Encounter Details Date Type Department Care Team (Late st Contact Info) Description 05/26/2022 Telephone [facility] Family Medicine at [place] [address] [facility] [address] [place] [address] Daily Cruz MD [address] [place] [address] [address] [place] [address] Symptom Based Call Social History [...] file Legal Sex Female 3:37 PM MANAGER SUPPORT Gender Identity Female 03/02/2020 4:27 PM MANAGER SUPPORT Sexual Orientation Straight 07/10/2019 11 :13 PM CDT documented as of this encounter Miscellaneous Notes * Telephone Encounter - Kassi Cabrera - 05/26/2022 12:09 PM CDT Medical Question/Miscellaneous Caller???s Concern: Patient had spoke w/ set up operator tool earlier regarding elevated BP, headaches and weight gain. She was hoping that the office could work her in today instead of going to ED or UC. They are unable and advised she go to ED/UC. Let the patient know. Caller???s Call back #: na Does message need to be routed?No documented in this encounter Plan of Treatment [...] on filedocumented in this encounter Care Teams Oil Tester Relationship Specialty Start Date End Date Daily Cruz MD PCP - General Family Medicine 03/04/21 documented as of this encounter
--- OUTSIDE RECORDS SUMMARY | 2024-02-21 19:37 | XMS_ITS | Encounter Summary ---
Author Organization [facility] Address [address] [facility] [address] [place] [address] Care Team Providers Care Eyewear Manufacturing Tech Name Role Phone Daily Cruz MD Primary Care Provider [phone] Encounter Details Date Type Department Care Team (Latest Contact Info) Description 12/22/2021 4:15 PM BEDSPRING ASSEMBLER Telemedicine [facility] Family Medicine at [place] [address] [facility] [address] [place] [address] Daily Cruz MD [address] [place] [address] [address] [place] [address] Pure hypercholesterolemia (Primary Dx); Chronic bilateral low back pain with bilateral sciatica; Lumbar degenerative disc disease; Lumbar spondylosis; Bulging lumbar disc Social History Tobacco Use Types Packs/Day Years [...] on file Legal Sex Female 3:37 PM BEDSPRING ASSEMBLER Gender Identity Female 03/02/2020 4:27 PM BEDSPRING ASSEMBLER Sexual Orientation Straight 07/10/2019 11 :13 PM CDT documented as of this encounter Last Filed Vital Signs Vital Sign Reading Time Taken Comments Blood Pressure 128/78 12/22/2021 4:25 PM BEDSPRING ASSEMBLER per patient Pulse - - Temperature - - Respiratory Rate - - Oxygen Saturation - - Inhaled Oxygen Concentration - - Weight 118.4 kg (261 lb) 12/22/2021 4:25 PM BEDSPRING ASSEMBLER Height 170.2 cm (5' 7 ) 12/22/2021 4:25 PM BEDSPRING ASSEMBLER Body Mass Index 40.88 12/22/2021 4:25 PM BEDSPRING ASSEMBLER documented in this encounter Patient Instructions * Attachments The following attachments cannot be sent through Care Everywhere. * Degenerative Disc Disease (Discharge Care) (Angolan) documented in this encounter Progress Notes * Daily Cruz MD - 12/22/2021 4:15 PM CST Images from the original note were not included. Patient ID: Jud Thomas is a 31 y.o. female. Visit Date: 12/22/2021 This was a telemedicine visit with Jud Thomas alone which took place via real-time video connection with [employer]. During the visit, I was located in the office and the patient was located at home in the [facility]. The patient visit started at 16:47 and ended at 17:02. The patient has been informed that the [...] responsible for any applicable copayments. Chief Complaint Low back pain HPI Continues to have low back pain. MRI shows lumbar degenerative disc disease. Lumbar spondylosis, bulging lumbar disc. Hyperlipidemia This is a chronic problem. The current episode started more than 1 year ago. The problem is controlled. Recent lipid tests were reviewed and are normal. Pertinent negatives include no chest pain or shortness of breath. Current antihyperlipidemic treatment includes diet change and exercise. Current Outpatient Medications: jqcfoyxfdqmot-dppkwbe-gblcbbey (EXCEDRIN MIGRAINE) 250-250-65 mg per tablet, Take [...] FOR WHEEZING, Disp: 6.7 each, Rfl: 1 qycjyzgzbf-hbyuymqg-bqlgocjvlb (Breztri Aerosphere) 160-9-4.8 mcg/actuation HFA aerosol inhaler, [...] 2 sprays into each nostril daily, Disp: 16 g, Rfl: 0 furosemide (LASIX) [...] , Rfl: montelukast (SINGULAIR) 10 mg tablet, Take 1 tablet (10 mg total) by mouth nightly, Disp: 30 tablet, Rfl: 0 tiZANidine (ZANAFLEX) 4 mg tablet, Take 2 [...] Cardiovascular: Negative for chest pain and palpitations. HLP Gastrointestinal: Negative for abdominal pain and diarrhea. Endocrine: Negative for cold intolerance. Genitourinary: Negative for dysuria and frequency. Musculoskeletal: Positive for back pain. Negative for arthralgias. Neurological: Negative for dizziness and headaches. Hematological: Does not bruise/bleed easily. Psychiatric/Behavioral: Negative for behavioral problems and confusion. BP 128/78 Comment: per patient Ht 170.2 cm (5' 7 ) Wt 118.4 kg (261 lb) BMI 40.88 kg/m?? Bodymass index is 40.88 kg/m??. Physical Exam Constitutional: Appearance: Normal appearance. HENT: Head: Normocephalic and atraumatic. Nose: Nose normal. Eyes: Extraocular Movements: Extraocular movements intact. Conjunctiva/sclera: Conjunctivae normal. Pulmonary: Effort: Pulmonary effort is normal. Musculoskeletal: Cervical back: Normal range of motion. Neurological: Mental Status: She is alert and oriented to person, place, and time. Psychiatric: Mood and Affect: Mood normal. Behavior: Behavior normal. Patient Name: JUD THOMAS Pavel Dr: Daily Cruz MD D.O.B: 1990 Exam Date: 05/12/20 0000 Age: 29 Sex: Female MR#: [id number] Loc: RADIOLOGY REPORT Order #[id number] Magnetic Resonance Imaging MRI Lumbar Signed EXAM DESCRIPTION: MRI Lumbar REASON FOR STUDY: Lower back pain. Pain radiating down both legs, worse on the left, duration of symptoms is 3-4 months. No known trauma. TECHNIQUE: Sagittal and Axial imaging includes T1, T2, STIR sequences. COMPARISON: Lumbar spine radiographs dated 02/28/[address] abdomen and pelvis dated 08/13/2019 FINDINGS: SEGMENTATION: For the purpose of this dictation the last well-formed disc space seen on series 801, image 13 will be labeled L5-S1. ALIGNMENT: There is 1-2 mm of retrolisthesis of L4 on L5. VERTEBRAE: No acute compression fracture lumbar spine. Round T1 and T2 hyperintense focus in the L5 vertebral body in keeping with intraosseous hemangioma. DISC HEIGHT: Mild disc desiccation and height loss at L5-S1 and to lesser extent L4-L5 and L3-L4. HARDWARE: None in the spine. CORD/CAUDA: Conus medullaris terminates at L1. LOWER THORACIC: Incompletely imaged. No high-grade spinal canal narrowing. INDIVIDUAL DISC LEVELS: T12-L1: No significant disc bulge, spinal canal or neural foraminal narrowing. L1-L2: No significant disc bulge, spinal canal or neural foraminal narrowing. L2-L3: No significant disc bulge, spinal canal or neural foraminal narrowing. L3-L4: Disc bulge and a superimposed central through proximal left neural foraminal disc protrusion with an annular fissure. Thickened ligamentum flavum and facet arthropathy. Mild left ventral spinal canal narrowing. Disc approaches the traversing right L4 nerve root and contacts the traversing left L4 nerve root. No significant neural foraminal narrowing. L4-L5: Disc bulge and a superimposed small central disc protrusion. Thickened ligamentum flavum and facet arthropathy. Disc indents the ventral thecal sac. Mild bilateral neural foraminal narrowing. L5-S1: Disc bulge and a superimposed central disc protrusion with an annular fissure. Bilateral facet arthropathy. No significant spinal canal or neural foraminal narrowing. IMPRESSION: 1. Multilevel mild lumbar spondylotic changes as described. No high-grade spinal canal narrowing. 2. Neural foraminal narrowing and additional findings as discussed above. Diagnoses and all orders for this visit: Pure hypercholesterolemia (Primary) Assessment & Plan: Chronic Follow low cholesterol diet Goal: TC<200, LDL<100, TG<150 Chronic bilateral low back pain with bilateral sciatica Assessment & Plan: Uncontrolled pain Refer to pain management Orders: - Ambulatory referral to Pain Management; Future Lumbar degenerative disc disease Assessment & Plan: Uncontrolled pain Refer to pain management Orders: - Ambulatory referral to Pain Management; Future Lumbar spondylosis Assessment & Plan: Uncontrolled pain Refer to pain management Orders: - Ambulatory referral to Pain Management; Future Bulging lumbar disc Assessment & Plan: Uncontrolled pain Refer to pain management Orders: - Ambulatory referral to Pain Management; Future Daily Cruz MD PRING ASSEMBLER documented in this encounter Miscellaneous Notes * Assessment & Plan Note - Daily Cruz MD - 12/30/2021 5:42 AM BEDSPRING ASSEMBLER Associated Problem(s): Bulging lumbar disc Uncontrolled pain Refer to pain management PRING ASSEMBLER * Assessment & Plan Note - Daily Cruz MD - 12/30/2021 5:41 AM BEDSPRING ASSEMBLER Associated Problem(s): Lumbar degenerative disc disease Uncontrolled pain Refer to pain management PRING ASSEMBLER * Assessment & Plan Note - Daily Cruz MD - 12/30/2021 5:41 AM BEDSPRING ASSEMBLER Associated Problem(s): Lumbar spondylosis Uncontrolled pain Refer to pain management PRING ASSEMBLER * Assessment & Plan Note - Daily Cruz MD - 12/30/2021 5:41 AM BEDSPRING ASSEMBLER Associated Problem(s): Chronic bilateral low back pain Uncontrolled pain Refer to pain management PRING ASSEMBLER * Assessment & Plan Note - Daily Cruz MD - 12/30/2021 5:40 AM BEDSPRING ASSEMBLER Associated Problem(s): Pure hypercholesterolemia (Resolved 02/22/2023) Chronic Follow low cholesterol diet Goal: TC<200, LDL<100, TG<150 PRING ASSEMBLER documented in this encounter Plan of Treatment [...] as of this encounter Visit Diagnoses Diagnosis Pure hypercholesterolemia- Primary Chronic bilateral low back pain with bilateral sciatica Lumbar degenerative disc disease Lumbar spondylosis Lumbosacral spondylosis without myelopathy Bulging lumbar disc documented in this encounter Care Teams Eyewear Manufacturing Tech Relationship Specialty Start Date End Date Daily Cruz MD PCP - General Family Medicine 03/04/21 documented as of this encounter
--- OUTSIDE RECORDS SUMMARY | 2024-02-21 19:37 | XMS_ITS | Encounter Summary ---
Author Organization [facility] Address [address] [facility] [address] [place] [address] Care Team Providers Care Supervisor Solder Making Name Role Phone Daily Cruz MD Primary Care Provider [phone] Reason for Visit * Reason Onset Date Comments Back Pain 12/06/2021 Allergies 12/06/2021 Encounter Details Date Type Department Care Team (Late st Contact Info) Description 12/06/2021 Nurse Triage [facility] Family Medicine at [place] [address] [facility] [address] [place] [address] Daily Cruz MD [address] [place] [address] [address] [place] [address] Social History Tobacco Use Types Packs/Day Years [...] on file Legal Sex Female 3:37 PM ENERGY ADVISOR Gender Identity Female 03/02/2020 4:27 PM ENERGY ADVISOR Sexual Orientation Straight 07/10/2019 11 :13 PM CDT documented as of this encounter Miscellaneous Notes * Telephone Encounter - Laly Elkins RN - 12/06/2021 9:01 AM CDT Jud Leung reports has been fighting allergies which flared up over the weekend. Coughing, sinus pain, sneezing, runny nose which started after a hay ride 1.5 weeks ago. Cough is productive of dark michelet thick sputum (denies blood). She ran a fever at start of symptoms & has been afebrilesince. Has tested several times for Covid 19 at home & all negative. Seeing an health and wellness sales consultant in next couple weeks. Plus, her chronic back pain worsening recently, fell at end of September & it hurtswhen coughing. Patient admits to having a chest that feels tight/heavy and that she's been using her rescue inhaler more often recently, which has helped it. During coughing fits, her throat feels tight & itchy & it evokes her gag reflex. Her activity level has thus dereased. Denies heart di sease/blood clots/ (IUD) & LMP ~ 2/3 weeks ago. Has h/o reactive airway disease & bronchitis. Has been taking Claritin OTC intermittently & Benadryl at night. Encouraged patient to take Claritin or Zyrtec or Sravanthi po every day for best effects. Home care advice given. PCP/WAITER/WAITRESS FIRST CLASS contacted via secure chat for ED disposition consult. Recommendation from provider: Schedulein PCP office No OV appts available & PCP states will have office staff call patient to schedule for OV today. Patient called back & notified of this, verbalized understanding of plan of care & home care instructions. Reason for Disposition MILD difficulty breathing (e.g., minimal/no SOB at rest, SOB with walking, pulse <100) and stillpresent when not coughing Visible sweat on face or sweat dripping down face Protocols used: [id number], Chest [id number] * Telephone Encounter - Laly Elkins RN - 12/06/2021 9:00 AM CDT Regarding: Extreme back pain ----- Message from Ally Allen sent at 12/06/2021 8:32 AM CDT ----- Symptom Based Call Chief Complaint: Extreme back pain Did you review 911/Red Flag List?Yes Duration: 1 week Why was appointment not scheduled? Red flag symptom Caller's Callback #: [phone] Additional Comments: back pain consistently congestion sore throat headache states back pain is getting worse, but now has new symptoms as listed Does message need to be routed? Yes-Action [...] on filedocumented in this encounter Care Teams Supervisor Solder Making Relationship Specialty Start Date End Date Daily Cruz MD PCP - General Family Medicine 03/04/21 documented as of this encounter
--- OUTSIDE RECORDS SUMMARY | 2024-02-21 19:37 | XMS_ITS | Encounter Summary ---
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 Gender Identity Female 03/02/2020 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 Sexual Orientation Straight 07/10/2019 11 :13 PM CDT documented as of this encounter Last Filed Vital Signs Vital Sign Reading Time Taken Comments Blood Pressure 139/84 05/26/2022 6:33 PM CDT Pulse 64 05/26/2022 6:33 PM CDT Temperature 37.1 ??C (98.8 ??F) 05/26/2022 1:12 PM CD T Respiratory Rate 18 05/26/2022 6:33 PM CDT Oxygen Saturation 100% 05/26/2022 6:33 PM CDT Inhaled Oxygen Concentration - - Weight 120.2 kg (265 lb) 05/26/2022 1:12 PM CDT Height 170.2 cm (5' 7 ) 05/26/2022 1:12 PM CDT Body Mass Index 41.5 05/26/2022 1:12 PM CDT documented in this encounter Discharge Instructions * Discharge Instructions* Irma Quintana PA - 05/26/2022 6:02 PM CDT Please keep a log of your blood pressures for your primary care doctor. Please follow up with your primary care doctor within one week. Call today or tomorrow to arrange follow up. Return to the ED immediately with any new or worsening symptoms. * Attachments The following attachments cannot be sent through Care Everywhere. * Dizziness (AfterCare(R) Instructions(ER/ED)) ([place]) * Leg Cramps (AfterCare(R) Instructions(ER/ED)) ([place]) * Edema (AfterCare(R) Instructions(ER/ED)) ([place]) documented in this encounter Medications at Time [...] 3 ALPRAZolam (XANAX) 0.5 mg tabletIndications :Panic Disorder Take 1 tablet (0.5 mg total) by mouth daily as needed for anxiety 30 tablet 03/30/2022 3 brexpiprazole (Rexulti) 0.5 mg tabletIndications :Panic attack,Bipolar 2 disorder (CMS/HCC) ([facility]) Take 1 tablet (0.5 mg total) by mouth daily 30 tablet 03/30/2022 3 budesonide-glycop yr-formoterol (Breztri Aerosphere) 160-9-4.8 mcg/actuation HFA aerosol inhalerIndication s:Reactive airway disease without asthma,Allergic reaction, initial encounter INHALE 2 PUFFS TWICE A DAY 10.7 g 1 04/01/2022 3 bumetanide (BUMEX) 1 mg tablet Take [...] 11/16/2021 3 fexofenadine (ARIANNA) 180 mg tabletIndications :Reactive airway disease without asthma,Allergic reaction, initial encounter TAKE 1 TABLET BY MOUTH EVERY DAY 30 tablet 04/04/2022 3 fluticasone propionate (FLONASE) 50 mcg/actuation nasal sprayIndications: Reactive airway disease without asthma,Allergic reaction, initial encounter Administer 2 sprays into each nostril daily 48 mL 1 02/25/2022 4 furosemide (LASIX) 40 mg tablet Take 1 tablet (40 mg total) by mouth daily 90 tablet 4 10/21/2021 3 galcanezumab-gnlm (Emgality Pen) 120 mg/mL pen injectorIndicatio ns:Intractable chronic migraine without aura and with status migrainosus Inject 120 mg under the skin every 30 (thirty) days 1 mL 5 10/21/2021 3 hydrocortisone 2.5 % ointmentIndicatio ns:Rash Apply topically 2 (two) times a day 30 g 03/02/2022 4 ibuprofen (ADVIL,MOTRIN) 800 mg tabletIndications :Acute bilateral low back pain without sciatica Take 1 tablet (800 mg total) by mouth 3 (three) times a day 90 tablet 09/27/2021 4 levonorgestreL (KYLEENA) IUD 1 each by intrauterine route once 3 montelukast (SINGULAIR) 10 mg tabletIndications :Reactive airway disease without asthma,Allergic reaction, initial encounter TAKE 1 TABLET BY MOUTH EVERY DAY AT NIGHT 90 tablet 1 01/02/2022 3 omeprazole (PriLOSEC) 20 mg capsule Take 1 capsule (20 mg total) by mouth 2 (two) times a day before breakfast and dinner 60 capsule 3 01/03/2023 4 rimegepant (Nurtec ODT) tablet,disintegra ting Take [...] ED Notes * Irma Quintana PA - 05/26/2022 1:30 PM CDT HPI Chief Complaint Patient presents with Multiple Medical Complaints HPI 1:30 PM Jud Leung is a 31 y.o. female presenting to the ED with multiple complaints. She reports intermittent dizziness and HAs for the past couple of months. Has been having elevated BP readings as well. Some in the 200s systolic. Further reports pitting bilateral leg swelling. Has a h/o lymphedema but states her swelling has been worse. Was prescribed an anxiety medication and lasix by her PCP a couple months ago. States she stopped taking them. Denies CP and SOB. Patient History: Past Medical History: Diagnosis Date ADHD (attention deficit hyperactivity disorder) Anxiety Arthritis Brain concussion 2010, 2009 Chronic bronchitis (CMS/HCC) (HCC) Depression Gastric reflux GERD (gastroesophageal reflux disease) PRN tums IIH (idiopathic intracranial hypertension) Pseudotumor cerebri. reports last spinal tap 2017. 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 Seasonal allergies Seizures (CMS/HCC) ([facility]) off medication since 2018 with no further seizure activity, EEG negative SOB (shortness of breath) Past Surgical History: Procedure Laterality Date ABDOMINAL SURGERY Laparoscopic surgery to remove endometriosis FOOT SURGERY Bilateral 2019 2 left bunion, 1 right bunion- hardware in place left and right foot FOOT SURGERY 07/16/2019 revision left tarsometatarsal joint arthrodesis iliac crest bone graft - Left KNEE SURGERY 01/2022 meniscus repair LAPAROSCOPIC ENDOMETRIOSIS [...] Mother Vision loss Mother Kidney disease Mother Arthritis Father Hypertension Father Mental illness [...] medications for this encounter. Current Outpatient Medications: gfwzwsiypesah-ezwjabf-dgmfumqw (EXCEDRIN MIGRAINE) 250-250-65 mg per tablet albuterol 2.5 mg /3 mL (0.083 %) nebulizer solution albuterol HFA (PROVENTIL HFA,VENTOLIN HFA,PROAIR HFA) 90 mcg/actuation inhaler ALPRAZolam (XANAX) 0.5 mg tablet brexpiprazole (Rexulti) 0.5 mg tablet lztmjcqiwo-vkiqnfno-slkhxvkqzi (Breztri Aerosphere) 160-9-4.8 mcg/actuation HFA aerosol inhaler ergocalciferol (VITAMIN D) 50,000 unit capsule famotidine (PEPCID) 40 mg tablet fexofenadine (ARIANNA) 180 mg tablet fluticasone propionate (FLONASE) 50 mcg/actuation nasal spray furosemide (LASIX) 40 mg tablet galcanezumab-gnlm (Emgality Pen) 120 mg/mL pen injector hydrocortisone 2.5 % ointment ibuprofen (ADVIL,MOTRIN) 800 mg tablet levonorgestreL (KYLEENA) IUD montelukast (SINGULAIR) 10 mg tablet rimegepant (Nurtec ODT) tablet,disintegrating triamcinolone (KENALOG) 0.1 % cream Review of Systems Review of Systems All systems reviewed and are neg or non contributory for this patients presentation today other than as stated in the HPI . Physical Exam ED Triage Vitals [05/26/22 1312] Temp Pulse Resp BP SpO2 37.1 ??C (98.8 ??F) 76 18 131/81 96 % Temp src Heart Rate Source Patient Position BP Location FiO2 (%) Oral Pulse Oximetry Sitting Right arm -- Height Height Method Weight Weight Method 1.702 m (5' 7 ) -- 120.2 kg (265 lb) -- Physical Exam Vitals reviewed. Constitutional: Appearance: Normal appearance. HENT: Head: Normocephalic [...] Breath sounds: Normal breath sounds. No wheezing. Musculoskeletal: General: Normal range of motion. Cervical back: Normal range of motion. Comments: No pitting edema bilateral lower extremities. Skin: General: Skin is warm and dry. Neurological: Mental Status: She is alert and oriented to person, place, and time. Mental status is at baseline. Cranial Nerves: No dysarthria or facial asymmetry. Sensory: Sensation is intact. No sensory deficit. Motor: Motor function is intact. No weakness. Psychiatric: Mood and Affect: Mood normal. Behavior: Behavior normal. Procedures MDM Labs Reviewed URINALYSIS AND REFLEX TO MICROSCOPIC AND CULTURE - Abnormal Result Value Color, ur Yellow Clarity, ur Clear Specific gravity, ur 1.016 pH, urine 6.0 Protein, ur ql Negative Glucose, ur ql Negative Ketones, ur Negative Bilirubin, ur Negative Blood, ur 1+ (*) Urobilinogen, ur <2.0 Nitrite, ur Negative Leukocyte esterase, ur 1+ (*) UA reflex comment Reflex to microscopic UA will be performed. Narrative: Urine pH is affected by diet, medications, systemic acid-base disturbances, and renal tubular function. pH may affect urinary stone formation. For example, urine pH below 6.0 may help reduce the tendency for calcium phosphate stones and pH greater than 6.0 may reduce the tendency for uric acid stone formation. Source: [facility].Last revised 02-23-2017 CBC WITH AUTO DIFFERENTIAL - Abnormal WBC 10.0 (*) Hgb 13.1 Hct 40.1 Plt 312 MPV 10.3 RBC 4.48 MCV 89.5 MCH 29.2 MCHC 32.7 RDW CV 14.6 RDW SD 47.5 NRBC abs 0.00 COMPREHENSIVE METABOLIC PANEL - Abnormal Sodium 140 Potassium, pl 4.1 Chloride 104 CO2 26 Anion gap 10 BUN 13 Creatinine 0.80 Glucose 100 Calcium 9.8 Bilirubin, total 0.3 Protein, pl 7.6 Albumin 4.3 Alk phos 99 ALT 10 AST 9 (*) DIFFERENTIAL AUTO - Abnormal Neutrophil abs 6.6 (*) Imm gran abs 0.0 Lymphocyte abs 2.8 Monocyte abs 0.5 Eosinophil abs 0.1 Basophil abs 0.1 Neutrophil pct 66.4 Imm gran pct 0.3 Lymphocyte pct 27.6 Monocyte pct 4.7 Eosinophil pct 0.5 Basophil pct 0.5 URINALYSIS, MICROSCOPIC ONLY - Abnormal WBC, ur 0-5 RBC, ur 3-5 (*) Epithelial cells, squamous, ur 1-5 Mucous, ur Present (*) Culture Reflex Comment Value: Reflex conditions for urine culture (WBC >10) not met. POCT HCG, URINE - Normal HCG, ur, POC Negative Lot Number [id number] QC Backgroud Clear Acceptable QC Control Line Acceptable TROPONIN T HIGH-SENSITIVITY SERIES (BASELINE, 2HR, 4HR, 6HR) Trop T hs <6 PRO B-TYPE NATRIURETIC PEPTIDE NT-proBNP 84 TROPONIN T HIGH-SENSITIVITY 2-HOUR Trop T hs <6 Trop T hs delta 0 Trop T hs interp Insignificant EGFR eGFR 102 D-DIMER, QUANTITATIVE D-Dimer 430 PROTIME-INR PT 13.9 INR 1.1 APTT aPTT 35 XR Chest 1 Vw Portable EXAM DESCRIPTION: XR CHEST 1 VIEW REASON FOR STUDY: dizziness; pt reports bilateral leg swelling for the past couple of months Dizziness, bilateral leg swelling X 2 months TECHNIQUE: One radiographic view of the chest acquired. COMPARISON: 07/23/2021 FINDINGS: The heart, mediastinum, and pulmonary vasculature are grossly unremarkable. There is no definite evidence of a pneumothorax. There is no definite evidence of focal consolidation or pleural effusion. The osseous structures are acutely grossly unremarkable. IMPRESSION: No acute cardiopulmonary abnormality. THIS IS AN ELECTRONICALLY VERIFIED FINAL REPORT 05/26/2022 2:18 PM - Electronically signed by Lorri Easton D.O. PS T: Report ID: [id number] Reading Location: [id number] CT Head WO Contrast EXAM DESCRIPTION: CT HEAD WO CONTRAST REASON FOR STUDY: dizziness, GAGNON today multiple medical complaints of dizziness, headache, leg swelling, knee pain, hypertension reported of 164/92, hazy vision, eye pain with blinking. Reports being on an anxiety medication but quit taking it due to weight gain. A/ox4, wheelchair to triage. TECHNIQUE: Axial images acquired through the brain without intravenous contrast. Images stored on PACS. Automated exposure control was used as a dose optimization technique for this examination. COMPARISON: 09/10/2020 FINDINGS: BRAIN: No hemorrhage, edema or mass effect. No large territorial infarct. Normal white matter. EXTRA-AXIAL SPACES: No fluid collections. No masses. CALVARIUM: No fracture. SINUSES/MASTOIDS: No fluid or mucosal thickening. ORBITS: No significant abnormality. OTHER: No other significant abnormality. IMPRESSION: No acute intracranial findings. MRI is more sensitive for the detection of acute cerebral ischemia. THIS IS AN ELECTRONICALLY VERIFIED FINAL REPORT 05/26/2022 2:00 PM - Electronically signed by Michael Bunn M.D. BB T: Report ID: [id number] Reading Location: [id number] BP 139/84 (BP Location: Left arm, Patient Position: Sitting) Pulse 64 Temp 37.1 ??C (98.8 ??F) (Oral) Resp 18 Ht 170.2 cm (5' 7 ) Wt 120.2 kg (265 lb) SpO2 100% BMI 41.50 kg/m?? [facility] ED Course as of 05/26/222132 Time: 05/26 172 Comment: Pt reports intermittent cramping leg pain for the past couple of months as well. No h/o DVT. No recent long travels trips. D-dimer added. By: Irma Quintana PA Time: 05/26 180 Comment: Troponins unremarkable. D-dimer negative. Gross neuro exam unremarkable. Head CT scan negative for acute abnormalities. BP stable in the ED. Stressed the importance of PCP follow up. She already has an appointment scheduled tomorrow morning. By: Irma Quintana PA This examination was transcribed using the [place] [employer] voice recognition system without human embossing press operator apprentice. In an effort to expedite patient care, this report has not been adjusted for typographical, grammatical, and syntax by a trained medical scientist. Close outpatient follow-up with a low threshold to return has been mandated , concerning symptoms have been emphasized in detail, and this patient expresses understanding Clinical Impression: Wellness examination Irma Quintana PA 05/26/222133 Cosigned by Lucy Vogt DO at 05/27/2022 8:01 AM CDT Associated attestation - Lucy Vogt DO - 05/27/2022 8:01 AM CDT This patient was independently evaluated by the APC. I was available for immediate consultation andin-person evaluation if required but was not asked to do so. * Derek Ceja RN - 05/26/2022 1:21 PM CDT Pt presents to ED with multiple medical complaints of dizziness, headache, leg swelling, knee pain,hypertension reported of 164/92, hazy vision, eye pain with blinking. Reports being on an anxiety medication but quit taking it due to weight gain. A/ox4, wheelchair to triage. documented in this encounter Plan of Treatment [...] Procedure Name Priority Date/Time Associated Diagnosis Comments APTT STAT 05/26/2022 5:23 PM CDT PROTIME-INR STAT 05/26/2022 5:23 PM CDT D-DIMER, QUANTITATIVE STAT 05/26/2022 5:23 PM CDT TROPONIN T HIGH-SENSITIVITY 2-HOUR Timed 05/26/2022 3:48 PM CDT ECG 12-LEAD STAT 05/26/2022 2:14 PM CDT XR CHEST 1 VIEW ED 05/26/2022 2:06 PM CDT POCT HCG, URINE STAT 05/26/2022 1:[address] HEAD WO CONTRAST ED 05/26/2022 1 :49 PM CDT TROPONIN T HIGH-SENSITIVITY SERIES (BASELINE, 2HR, 4HR, 6HR) STAT 05/26/2022 1:36 PM CDT EGFR STAT 05/26/2022 1:36 PM CDT DIFFERENTIAL AUTO STAT 05/26/2022 1:3 6 PM CDT PRO B-TYPE NATRIURETIC PEPTIDE STAT 05/26/2022 1:36 PM CDT URINALYSIS AND REFLEX TO MICROSCOPIC AND CULTURE STAT 05/26/2022 1:36 PM CDT CBC WITH AUTO DIFFERENTIAL STAT 05/26/2022 1:36 PM CDT URINALYSIS, MICROSCOPIC ONLY STAT 05/26/2022 1:36 PM CDT COMPREHENSIVE METABOLIC PANEL STAT 05/26/2022 1:36 PM CDT documented in this encounter Results * aPTT (05/26/2022 5:23 PM CDT) aPTT 35 22 - 37 sec ANGELICA VERDUGO Comment: Interpretive data aPTT test has not been evaluated for monitoring heparin therapy. The anti-Xa is the preferred test. Current interpretive data was last revised on 2019. Blood 05/26/2022 5:23 PM CDT 05/26/2022 5:38 PM CDT Irma MOJICA LAB BLOOD ORDERABLES Final Resul t Performing Organization Address [facility] de Phone Number [address] [address] * Protime-INR (05/26/2022 5:23 PM CDT) PT 13.9 12.0 - 14.6 sec ANGELICA INR 1.1 0.9 - 1.2 ANGELICA Comment: Ref Range High Interpretive data Oral anticoagulant therapeutic ranges: Venous thromboembolism prophylaxis or treatment: 2.0-3.0 CARDIOLOGY Standard range: 2.0-3.0 High-intensity range: 2.5-3.5 Refer to indication-specific guidelines for appropriate target ranges for prosthetic heart valve replacement. Current interpretive data was last revised on 2019. Blood 05/26/2022 5:23 PM CDT 05/26/2022 5:38 PM CDT Irma MOJICA LAB BLOOD ORDERABLES Final Resul t Performing Organization Address [facility] de Phone Number [address] [address] * D-dimer, quantitative (05/26/2022 5:23 PM CDT) D-Dimer 430 <=499 ng/mL FEU ANGELICA Comment: Interpretive data FDA approved the D-dimer, in conjunction with a low or moderate pretest probability score, to exclude venous thromboembolic events (VTE) (PE and DVT) in outpatients when the D-dimer result is < 500 ng/ml FEU. ?? Evidence supports using an age-adjusted D-dimer cut-off for outpatients older than 50 (age x 10) to improve specificity without sacrificing sensitivity. Example: age 68, VTE cut-off 680 ng/ml FEU. References; Schouten HT et al. Brit Med J. 2013;346:f2492. Albino TORRES et al. Annals Int Med. 2015;163:701-11. Current interpretive data was last revised on 2019. Blood 05/26/2022 5:23 PM CDT 05/26/2022 5:38 PM CDT Irma MOJICA LAB BLOOD ORDERABLES Final Resul t Performing Organization Address [facility] Co de Phone Number [address] [place] [address] * Troponin T high-sensitivity 2-hour (05/26/2022 3:48 PM CDT) Trop T hs <6 <=14 ng/L ANGELICA Comment: Interpretive Data For further hscTnT resources including the diagnostic algorithm and an aid in interpretation, copy and paste this link: https://nrl.testcatalog.org/show/hsTrop Current Interpretive Data last revised 2019. Trop T hs delta 0 ng/L [facility] Trop T hs interp Insignificant ANGELICA Blood 05/26/2022 3:48 PM CDT 05/26/2022 3:50 PM CDT Irma MOJICA LAB BLOOD ORDERABLES Final Resul t Performing Organization Address [facility] Co de Phone Number [place] [phone] [facility] [employer] [place], [place] [id number] * ECG 12 lead (05/26/2022 2:14 PM CDT) Ventricular Rate EKG/Min 78 BPM [facility] Atrial Rate 78 BPM [facility] [place]-Interval (MSEC) 154 ms [facility] QRS-Interval (MSEC) 88 ms [facility] QT-Interval (MSEC) 380 ms [facility] QTc 433 ms [facility] P [place] 8 degrees [facility] R [place] -2 degrees [facility] T [place] 19 degrees [facility] Diagnosis Normal sinus rhythm with sinus arrhythmia Voltage criteria for left ventricular hypertrophy Abnormal ECG No previous ECGs available [facility] 05/26/2022 2:14 PM CDT 05/26/2022 9:28 PM CDT Irma MOJICA ECG ORDERABLES Final Result [facility] * XR Chest 1 Vw Portable (05/26/2022 2:06 PM CDT) Anatomical Region Laterality Modality Body, Chest N/A Computed Radiogr aphy 05/26/2022 2:17 PM CDT Narrative 05/26/2022 2:18 PM CDT EXAM DESCRIPTION: ?? XR CHEST 1 VIEW REASON FOR STUDY: ?? dizziness; pt reports bilateral leg swelling for the past couple of months ?? Dizziness, bilateral leg swelling X 2 months ?? TECHNIQUE: ?? One ??radiographic view of the chest acquired. COMPARISON: ?? 07/23/2021 FINDINGS: The heart, mediastinum, and pulmonary vasculature are grossly unremarkable. ??There is no definite evidence of a pneumothorax. ??There is no definite evidence of focal consolidation or pleural effusion. The osseous structures are acutely grossly unremarkable. IMPRESSION: ?? No acute cardiopulmonary abnormality. THIS IS AN ELECTRONICALLY VERIFIED FINAL REPORT 05/26/2022 2:18 PM - Electronically signed by ??Lorri Easton D.O. PS D: ??05/26/2022 2:18 PM T: Report ID: [id number] Reading Location: ??[id number] Procedure Note Lorri Easton, DO - 05/26/2022 EXAM DESCRIPTION: XR CHEST 1 VIEW REASON FOR STUDY: dizziness; pt reports bilateral leg swelling for thepast couple of months Dizziness, bilateral leg swelling X 2 months TECHNIQUE: One radiographic view of the chest acquired. COMPARISON: 07/23/2021 FINDINGS: The heart, mediastinum, and pulmonary vasculature are grossly unremarkable. There is no definite evidence of a pneumothorax. There isno definite evidence of focal consolidation or pleural effusion. The osseous structures are acutely grossly unremarkable. IMPRESSION: No acute cardiopulmonary abnormality. THIS IS AN ELECTRONICALLY VERIFIED FINAL REPORT 05/26/2022 2:18 PM - Electronically signed by Lorri JEAN-BAPTISTE T: Report ID: [id number] Reading Location: [place] [address] Irma MOJICA IMG XR PROCEDURES Final Result * POCT hCG, urine (05/26/2022 1:51 PM CDT) HCG, ur, POC Negative Lot Number [id number] QC Backgroud Clear Acceptable QC Control Line Acceptable Urine 05/26/2022 1:51 PM CDT Irma MOJICA POINT OF CARE TEST ORDERABLES Fi nal Result * CT Head WO Contrast (05/26/2022 1:49 PM CDT) Anatomical Region Laterality Modality Head and Neck N/A Computed Tomogra phy 05/26/2022 1:58 PM CDT Narrative 05/26/2022 2:00 PM CDT EXAM DESCRIPTION: ?? CT HEAD WO CONTRAST REASON FOR STUDY: ?? dizziness, GAGNON today ?? multiple medical complaints of dizziness, headache, leg swelling, knee pain, hypertension reported of 164/92, hazy vision, eye pain with blinking. ??Reports being on an anxiety medication but quit taking it due to weight gain. ??A/ox4, wheelchair to ?? triage. ?? TECHNIQUE: Axial images acquired through the brain without intravenous contrast. ??Images stored on PACS. ?? Automated exposure control was used as a dose optimization technique for this examination. COMPARISON: ?? 09/10/2020 FINDINGS: BRAIN: ?? No hemorrhage, edema or mass effect. No large territorial infarct. ?Normal white matter. ? EXTRA-AXIAL SPACES: ?? No fluid collections. No masses. CALVARIUM: ?? No fracture. SINUSES/MASTOIDS: ?? No fluid or mucosal thickening. ORBITS: ?? No significant abnormality. OTHER: ?? No other significant abnormality. IMPRESSION: No acute intracranial findings. MRI is more sensitive for the detection of acute cerebral ischemia. THIS IS AN ELECTRONICALLY VERIFIED FINAL REPORT 05/26/2022 2:00 PM - Electronically signed by ??Michael BOWMAN D: ??05/26/2022 2:00 PM T: Report ID: [id number] Reading Location: ??[id number] Procedure Note Michael Bunn MD PhD - 05/26/2022 EXAM DESCRIPTION: CT HEAD WO CONTRAST REASON FOR STUDY: dizziness, GAGNON today multiple medical complaints of dizziness, headache, leg swelling, kneepain, hypertension reported of 164/92, hazy vision, eye pain with blinking.Reports being on an anxiety medication but quit taking it due to weight gain.A/ox4, wheelchair to triage. TECHNIQUE: Axial images acquired through the brain without intravenous contrast. Images stored on PACS. Automated exposure control was used asa dose optimization technique for this examination. COMPARISON: 09/10/2020 FINDINGS: BRAIN: No hemorrhage, edema or mass effect. No largeterritorial infarct. Normal white matter. EXTRA-AXIAL SPACES: No fluid collections. No masses. CALVARIUM: No fracture. SINUSES/MASTOIDS: No fluid or mucosal thickening. ORBITS: No significant abnormality. OTHER: No other significant abnormality. IMPRESSION: No acute intracranial findings. MRI is more sensitive for the detection of acute cerebral ischemia. THIS IS AN ELECTRONICALLY VERIFIED FINAL REPORT 05/26/2022 2:00 PM - Electronically signed by Michael Bunn M.D. BB T: Report ID: [id number] Reading Location: [place] [address] Irma MOJICA [facility] CT PROCEDURES Final Result * eGFR (05/26/2022 1:36 PM CDT) eGFR 102 mL/min/1. 73 m2 ANGELICA VERDUGO Comment: Interpretive [...] interpretive data was last reviewed 2020. Blood 05/26/2022 1:36 PM CDT 05/26/2022 1:50 PM CDT us Irma MOJICA LAB BLOOD ORDERABLES Final Resul t [place] [id number] [facility] Department [place] [address] * (ABNORMAL) Urinalysis, microscopic only (05/26/2022 1:36 PM CDT) WBC, ur 0-5 0 - 5 /HPF [facility] RBC, ur 3-5(A) 0 - 2 /HPF [facility] Epithelial cells, squamous, ur 1-5 0 - 5 /HPF [facility] Mucous, ur Present(A) [facility] Culture Reflex Comment Reflex conditions for urine culture (WBC >10) not met. [facility] Urine 05/26/2022 1:36 PM CDT 05/26/2022 1:50 PM CDT us Irma MOJICA LAB URINE ORDERABLES Final Resul t ANGELICA [address] [facility] Department [place] [address] * (ABNORMAL) Differential, auto (05/26/2022 1:36 PM CDT) Neutrophil abs 6.6(H) 1.7 - 6.5 K/cumm [facility] Imm gran abs 0.0 0.0 - 0.1 K/cumm [facility] Lymphocyte abs 2.8 0.8 - 3.3 K/cumm [facility] Monocyte abs 0.5 0.2 - 0.8 K/cumm [facility] Eosinophil abs 0.1 0.0 - 0.5 K/cumm [facility] Basophil abs 0.1 0.0 - 0.1 K/cumm [facility] Neutrophil pct 66.4 % [facility] Comment: Interpretive Data Percent cell count reference ranges are not reported, since discordance with absolute values may lead to misinterpretation of CBC data. Current Interpretive Data was last revised on 2017. Imm gran pct 0.3 % [facility] Comment: Interpretive Data Percent cell count reference ranges are not reported, since discordance with absolute values may lead to misinterpretation of CBC data. Current Interpretive Data was last revised on 2017. Lymphocyte pct 27.6 % [facility] Comment: Interpretive Data Percent cell count reference ranges are not reported, since discordance with absolute values may lead to misinterpretation of CBC data. Current Interpretive Data was last revised on 2017. Monocyte pct 4.7 % [facility] Comment: Interpretive Data Percent cell count reference ranges are not reported, since discordance with absolute values may lead to misinterpretation of CBC data. Current Interpretive Data was last revised on 2017. Eosinophil pct 0.5 % [facility] Comment: Interpretive Data Percent cell count reference ranges are not reported, since discordance with absolute values may lead to misinterpretation of CBC data. Current Interpretive Data was last revised on 2017. Basophil pct 0.5 % [facility] Comment: Interpretive Data Percent cell count reference ranges are not reported, since discordance with absolute values may lead to misinterpretation of CBC data. Current Interpretive Data was last revised on 2017. Blood 05/26/2022 1:36 PM CDT 05/26/2022 1:50 PM CDT us Irma MOJICA LAB BLOOD ORDERABLES Final Resul t ANGELICA [address] [facility] Department [place] [address] * Pro B-type natriuretic peptide (05/26/2022 1:36 PM CDT) NT-proBNP 84 <=300 pg/mL ANGELICA VERDUGO Comment: Interpretive Comments: A. Dyspnea in Acute [...] Heart J. 2006:27:330-337. 2. Dianna RW, Dedrick AM. J. AM Kaylene Cardiol: Cardiovasc Imag. 2009;2: 216- 225. Interpretive Data Last Revised Date: 2017. Blood 05/26/2022 1:36 PM CDT 05/26/2022 1:50 PM CDT us Irma MOJICA LAB BLOOD ORDERABLES Final Resul t [facility] [address] [facility] Department of Laboratories [place], [place] [id number] * (ABNORMAL) Urinalysis reflex to microscopic and culture Urine (05/26/2022 1:36 PM CDT) Color, ur Yellow Yellow [facility] Clarity, ur Clear Clear [facility] Specific gravity, ur 1.016 1.003 - 1.030 [facility] pH, urine 6.0 [facility] Protein, ur ql Negative Negative [facility] Glucose, ur ql Negative Negative [facility] Ketones, ur Negative Negative [facility] Bilirubin, ur Negative Negative [facility] Blood, ur 1+(A) Negative [facility] Urobilinogen, ur <2.0 <2.0 mg/dL [facility] Nitrite, ur Negative Negative [facility] Leukocyte esterase, ur 1+(A) Negative [facility] UA reflex comment Reflex to microscopic UA will be performed. [facility] Urine 05/26/2022 1:36 PM CDT 05/26/2022 1:50 PM CDT Narrative [facility] - 05/26/2022 2:08 PM CDT ?? Urine pH is affected by diet, medications, systemic acid-base disturbances, and renal tubular function. ??pH may affect urinary stone formation. ??For example, urine pH below 6.0 may help reduce the tendency for calcium phosphate stones and pH greater than 6.0 may reduce the tendency for uric acid stone formation. Source: [facility] Anulex. Last revised 02-23-2017 Irma MOJICA LAB MICROBIOLOGY - GENERAL ORDER JOSE Final Result Performing Organization Address City/[facility] Co de Phone Number ANGELICA [address] [address] * Troponin T high-sensitivity series (baseline, 2hr, 4hr, 6hr) (05/26/2022 1:36 PM CDT) Pathologist [facility] Trop T hs <6 <=14 ng/L [facility] Comment: Interpretive Data For further hscTnT resources including the diagnostic algorithm and an aid in interpretation, copy and paste this link: [email or web address].testcatalog.org/[email or web address] Current Interpretive Data last revised 2019. Blood 05/26/2022 1:36 PM CDT 05/26/2022 1:50 PM CDT Irma MOJICA LAB BLOOD ORDERABLES Final Resul t Performing Organization Address [facility] Co de Phone Number ANGELICA [address] [address] * (ABNORMAL) Comprehensive metabolic panel (05/26/2022 1:36 PM CDT) [facility] Sodium 140 135 - 145 mmol/L [facility] Potassium, pl 4.1 3.3 - 4.9 mmol/L [facility] Chloride 104 97 - 110 mmol/L [facility] CO2 26 22 - 32 mmol/L [facility] Anion gap 10 2 - 15 mmol/L [facility] BUN 13 8 - 25 mg/dL [facility] Creatinine 0.80 0.60 - 1.10 mg/dL [facility] Glucose 100 70 - 199 mg/dL [facility] Comment: Interpretive Data Fasting glucose >/= 126 [...] interpretive data was last revised 2022. Calcium 9.8 8.5 - 10.3 mg/dL [facility] Bilirubin, total 0.3 0.1 - 1.2 mg/dL [facility] Protein, pl 7.6 6.5 - 8.5 g/dL [facility] Albumin 4.3 3.5 - 5.0 g/dL [facility] Alk phos 99 40 - 130 Units/L [facility] ALT 10 7 - 45 Units/L [facility] AST 9(L) 10 - 45 Units/L [facility] Blood 05/26/2022 1:36 PM CDT 05/26/2022 1:50 PM CDT Irma MOJICA LAB BLOOD ORDERABLES Final Resul t [facility] [address] [facility] Department [place] [address] * (ABNORMAL) CBC with auto differential (05/26/2022 1:36 PM CDT) WBC 10.0(H) 3.8 - 9.9 K/cumm [facility] Hgb 13.1 11.9 - 15.5 g/dL [facility] Hct 40.1 35.6 - 45.5 % [facility] Plt 312 150 - 400 K/cumm [facility] MPV 10.3 9.1 - 12.3 fL [facility] RBC 4.48 3.90 - 5.20 M/cumm [facility] MCV 89.5 81.3 - 96.4 fL [facility] MCH 29.2 27.1 - 33.3 pg [facility] MCHC 32.7 32.3 - 35.7 g/dL [facility] RDW CV 14.6 11.1 - 14.9 % [facility] RDW SD 47.5 35.7 - 48.1 fL ANGELICA VERDUGO NRBC abs 0.00 0.00 - 0.01 K/cumm ANGELICA VERDUGO Blood 05/26/2022 1:36 PM CDT 05/26/2022 1:50 PM CDT us Irma MOJICA LAB BLOOD ORDERABLES Final Resul t ANGELICA [address] [facility] Department [place] [address] documented in this encounter Visit Diagnoses Diagnosis Wellness examination- Primary documented in this encounter Orders IV Count Last Ordered Date First Orde red Date SALINE LOCK IV 1 05/26/2022 documented in this encounter Care Teams Internet Retailer Relationship Specialty Start Date End Date Daily Cruz MD PCP - General Family Medicine 03/04/21 documented as of this encounter
--- OUTSIDE RECORDS SUMMARY | 2024-02-21 19:37 | XMS_ITS | Encounter Summary ---
Author Organization [facility] Healthcare Address [address] [place] [address] Care Team Providers Care Supervisor Remelt Name Role Phone Daily Cruz MD Primary Care Provider [phone] Encounter Details Date Type Department Care Team (Late st Contact Info) Description 09/27/2021 2:40 PM CDT Lab [facility] [address] [place] [id number] Pure hypercholesterolemia; Acute bilateral low back pain without sciatica; Well adult exam; Hyperglycemia; Vitamin D deficiency Social History Tobacco Use Types Packs/Day Years [...] on file Legal Sex Female 3:37 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 Gender Identity Female 03/02/2020 4:27 PM GRAVE DIGGER Sexual Orientation Straight 07/10/2019 11 :13 PM [...] Priority Date/Time Associated Diagnosis Comments EGFR Routine 09/27/2021 3:06 PM CDT Pure hypercholesterolem ia Acute bilateral low back pain without sciatica Well adult exam Hyperglycemia DIFFERENTIAL AUTO Routine 09/27/2021 3:0 6 PM CDT Pure hypercholesterolem ia Acute bilateral low back pain without sciatica Well adult exam Hyperglycemia THYROID FUNCTION CASCADE Routine 09/27/2021 3:06 PM CDT Pure hypercholesterolem ia Acute bilateral low back pain without sciatica Well adult exam Hyperglycemia CBC WITH AUTO DIFFERENTIAL Routine 09/27/2021 3:06 PM CDT Pure hypercholesterolem ia Acute bilateral low back pain without sciatica Well adult exam Hyperglycemia VITAMIN D 25 HYDROXY Routine 09/27/2021 3:06 PM CDT Vitamin D deficiency HEMOGLOBIN A1C Routine 09/27/2021 3:06 PM CDT Pure hypercholesterolem ia Acute bilateral low back pain without sciatica Well adult exam Hyperglycemia LIPID PANEL Routine 09/27/2021 3:06 PM CDT Pure hypercholesterolem ia Acute bilateral low back pain without sciatica Well adult exam Hyperglycemia COMPREHENSIVE METABOLIC PANEL Routine 09/27/2021 3:06 PM CDT Pure hypercholesterolem ia Acute bilateral low back pain without sciatica Well adult exam Hyperglycemia documented in this encounter Results * eGFR (09/27/2021 3:06 PM CDT) Pathologist [facility] eGFR 88 mL/min/1. 73 m2 ANGELICA Comment: Interpretive Data Reference Interval Normal ?>/= [...] interpretive data was last reviewed 2020. Blood 09/27/2021 3:06 PM CDT 09/27/2021 3:27 PM CDT us Daily Cruz MD LAB BLOOD ORDERABLES Karen l Result [facility] [address] [facility] Department [place] [address] * (ABNORMAL) Differential, auto (09/27/2021 3:06 PM CDT) Neutrophil abs 11.3(H) 1.7 - 6.5 K/cumm ANGELICA Imm gran abs 0.1 0.0 - 0.1 K/cumm [facility] Lymphocyte abs 2.6 0.8 - 3.3 K/cumm ANGELICA Monocyte abs 0.6 0.2 - 0.8 K/cumm [facility] Eosinophil abs 0.0 0.0 - 0.5 K/cumm [facility] Basophil abs 0.0 0.0 - 0.1 K/cumm [facility] Neutrophil pct 77.5 % [facility] Comment: Interpretive Data Percent cell count reference ranges are not reported, since discordance with absolute values may lead to misinterpretation of CBC data. Current Interpretive Data was last revised on 2017. Imm gran pct 0.5 % [facility] Comment: Interpretive Data Percent cell count reference ranges are not reported, since discordance with absolute values may lead to misinterpretation of CBC data. Current Interpretive Data was last revised on 2017. Lymphocyte pct 17.4 % [facility] Comment: Interpretive Data Percent cell count reference ranges are not reported, since discordance with absolute values may lead to misinterpretation of CBC data. Current Interpretive Data was last revised on 2017. Monocyte pct 4.4 % [facility] Comment: Interpretive Data Percent cell count reference ranges are not reported, since discordance with absolute values may lead to misinterpretation of CBC data. Current Interpretive Data was last revised on 2017. Eosinophil pct 0.0 % [facility] Comment: Interpretive Data Percent cell count reference ranges are not reported, since discordance with absolute values may lead to misinterpretation of CBC data. Current Interpretive Data was last revised on 2017. Basophil pct 0.2 % [facility] Comment: Interpretive Data Percent cell count reference ranges are not reported, since discordance with absolute values may lead to misinterpretation of CBC data. Current Interpretive Data was last revised on 2017. Blood 09/27/2021 3:06 PM CDT 09/27/2021 3:27 PM CDT us Daily Cruz MD LAB BLOOD ORDERABLES Karen prater Result ANGELICA [address] [facility] Department [place] [address] * (ABNORMAL) Vitamin D 25 hydroxy (09/27/2021 3:06 PM CDT) Vitamin D 25-OH 22.0(L) 30.0 - 80.0 ng/mL ANGELICA Comment:Below Ref Range Blood 09/27/2021 3:06 PM CDT 09/27/2021 3:27 PM CDT Result [facility] Daily Cruz MD LAB BLOOD ORDERABLES Edit ed Result - Final Performing Organization Address [facility] Co de Phone Number [address] [place] [address] * TSH reflex to free T4 (09/27/2021 3:06 PM CDT) TSH 1.16 0.30 - 4.20 mcIUnit/mL ANGELICA Blood 09/27/2021 3:06 PM CDT 09/27/2021 3:27 PM CDT Result [facility] Daily Cruz MD LAB BLOOD ORDERABLES Karen l Result Performing Organization Address [facility] de Phone Number [address] [place] [address] * Hemoglobin A1c (09/27/2021 3:06 PM CDT) Hgb A1C 5.4 4.0 - 5.6 % ANGELICA Estimated Average Glucose 108 mg/dL [facility] Comment: The ADA recommends reporting an estimated Average Glucose (eAG) with all Hemoglobin A1c results using the equation derived from a study of 507 normal and diabetic adults. ??Minority populations were underrepresented and children were not included. ?? (Diabetes Care 31:8646-4717, 2008). ??The eAG is not equivalent to a fasting glucose. Blood 09/27/2021 3:06 PM CDT 09/27/2021 3:27 PM CDT Result [facility] Daily Cruz MD LAB BLOOD ORDERABLES Karen l Result Performing Organization Address [facility] Co de Phone Number [address] [place] [address] * (ABNORMAL) Comprehensive metabolic panel (09/27/2021 3:06 PM CDT) Sodium 138 135 - 145 mmol/L [facility] Potassium, pl 4.3 3.3 - 4.9 mmol/L [facility] Chloride 103 97 - 110 mmol/L [facility] CO2 25 22 - 32 mmol/L [facility] Anion gap 10 2 - 15 mmol/L [facility] BUN 17 8 - 25 mg/dL [facility] Creatinine 0.90 0.60 - 1.10 mg/dL [facility] Glucose 92 70 - 199 mg/dL [facility] Comment: Interpretive Data Fasting [...] 2016. Calcium 9.3 8.5 - 10.3 mg/dL [facility] Bilirubin, total <0.2 0.1 - 1.2 mg/dL [facility] Protein, pl 7.1 6.5 - 8.5 g/dL [facility] Albumin 4.1 3.5 - 5.0 g/dL [facility] Alk phos 90 40 - 130 Units/L [facility] ALT 8 7 - 45 Units/L [facility] AST 7(L) 10 - 45 Units/L [facility] Blood 09/27/2021 3:06 PM CDT 09/27/2021 3:27 PM CDT us Daily Cruz MD LAB BLOOD ORDERABLES Karen l Result [facility] [address] [facility] Department [place] [address] * Lipid panel (09/27/2021 3:06 PM CDT) [facility] Signature Cholesterol 190 30 - 199 mg/dL ANGELICA VERDUGO Comment: Interpretive Data Ages [...] on 2017. Triglycerides 65 <=149 mg/dL ANGELICA VERDUGO Comment: Interpretive Data Ages [...] on 2017. HDL 57 >=40 mg/dL ANGELICA VERDUGO Comment: Interpretive Data Ages [...] revised on 2017. Non-HDL Cholesterol 133 mg/dL ANGELICA Comment: Interpretive Data Ages < [...] last revised on 2017. Chol/HDL ratio [address] [facility] Blood 09/27/2021 3:06 PM CDT 09/27/2021 3:27 PM CDT Daily Cruz MD LAB BLOOD ORDERABLES Karen l Result Performing Organization Address [facility] Co de Phone Number ANGELICA [address] [place] [address] * (ABNORMAL) CBC with auto differential (09/27/2021 3:06 PM CDT) WBC 14.6(H) 3.8 - 9.9 K/cumm [facility] Hgb 12.5 11.9 - 15.5 g/dL [facility] Hct 38.5 35.6 - 45.5 % [facility] Plt 371 150 - 400 K/cumm [facility] MPV 10.2 9.1 - 12.[address] [facility] RBC 4.24 3.90 - 5.20 M/cumm [facility] MCV 90.8 81.3 - 96.[address] [facility] MCH 29.5 27.1 - 33.[address] [facility] MCHC 32.5 32.3 - 35.7 g/dL [facility] RDW CV 14.9 11.1 - 14.9 % [facility] RDW SD 50.2(H) 35.7 - 48.[address] [facility] NRBC abs 0.00 0.00 - 0.01 K/cumm [facility] Blood 09/27/2021 3:06 PM CDT 09/27/2021 3:27 PM CDT Daily Cruz MD LAB BLOOD ORDERABLES Karen l Result Performing Organization Address City/[facility] Co de Phone Number ANGELICA [address] [place] [address] documented in this encounter Visit Diagnoses Diagnosis Pure hypercholesterolemia Acute bilateral low back pain without sciatica Well adult exam Routine general medical examination at a health care facility Hyperglycemia Other abnormal glucose Vitamin D deficiency documented in this encounter Care Teams Supervisor Remelt Relationship Specialty Start Date End Date Daily Cruz MD PCP - General Family Medicine 03/04/21 documented as of this encounter
--- OUTSIDE RECORDS SUMMARY | 2024-02-21 19:37 | XMS_ITS | Encounter Summary ---
Author Organization [facility] Medical Group Address [address] [place] [address] Care Team Providers Care Camp Coordinator Name Role Phone Daily Cruz MD Primary Care Provider [phone] Encounter Details Date Type Department Care Team (Late st Contact Info) Description 12/24/2021 Orders Only [facility] Gastroenterology at [address] [place] [address] Jeffrey Fleming MD [address] [place] [address] [address] [place] [address] Blood in stool (Primary Dx); RLQ abdominal pain; Gastroesophageal reflux [...] on file Legal Sex Female 3:37 PM PASTRY CHEF Gender Identity Female 03/02/2020 4:27 PM PASTRY CHEF Sexual Orientation Straight 07/10/2019 11 :13 PM CDT documented as of this encounter Progress Notes * Ilsa Gresham MA - 12/24/2021 3:10 PM CST Pt called to reschedule procedure. Schedule for 07/15/2022 at 7:30 am. RY CHEF documented in this encounter Plan of Treatment [...] Visit Diagnoses Diagnosis Blood in stool- Primary RLQ abdominal pain Abdominal pain, right lower quadrant Gastroesophageal reflux disease without esophagitis Esophageal reflux Constipation, unspecified constipation type Diarrhea, unspecified type documented in this encounter Care Teams Camp Coordinator Relationship Specialty Start Date End Date Daily Cruz MD PCP - General Family Medicine 03/04/21 documented as of this encounter
--- OUTSIDE RECORDS SUMMARY | 2024-02-21 19:37 | XMS_ITS | Encounter Summary ---
Author Organization [facility] Address [address] [facility] [address] [place] [address] Care Team Providers Care Brickmason Supervisor Name Role Phone Daily Cruz MD Primary Care Provider [phone] Reason for Visit * Reason Comments Dizziness Nausea Blurred Vision Headache Hypertension Encounter Details Date Type Department Care Team (Late st Contact Info) Description 03/30/2022 2:30 PM HOME CARE MUSIC THERAPIST Office Visit [facility] Family Medicine at [place] [address] [facility] [address] [place] [address] Daily Cruz MD [address] [place] [address] [address] [place] [address] Panic attack (Primary Dx); Bipolar 2 disorder (CMS/HCC) (HCC) Social History Tobacco Use Types Packs/Day [...] on file Legal Sex Female 3:37 PM HOME CARE MUSIC THERAPIST Gender Identity Female 03/02/2020 4:27 PM HOME CARE MUSIC THERAPIST Sexual Orientation Straight 07/10/2019 11 :13 PM CDT documented as of this encounter Last Filed Vital Signs Vital Sign Reading Time Taken Comments Blood Pressure 114/76 03/30/2022 2:37 PM HOME CARE MUSIC THERAPIST Pulse 97 03/30/2022 2:37 PM HOME CARE MUSIC THERAPIST Temperature 36.7 ??C (98 ??F) 03/30/2022 2:37 PM HOME CARE MUSIC THERAPIST Respiratory Rate 18 03/30/2022 2:37 PM HOME CARE MUSIC THERAPIST Oxygen Saturation 98% 03/30/2022 2:37 PM HOME CARE MUSIC THERAPIST Inhaled Oxygen Concentration - - Weight 116.2 kg (256 lb 3.2 oz) 03/30/2022 2:37 PM HOME CARE MUSIC THERAPIST Height 170.2 cm (5' 7 ) 03/30/2022 2:3 7 PM HOME CARE MUSIC THERAPIST Body Mass Index 40.13 03/30/2022 2:37 PM HOME CARE MUSIC THERAPIST documented in this encounter Patient Instructions * Attachments The following attachments cannot be sent through Care Everywhere. * Bipolar Disorder (Dowel Inserting Machine Operator) (Tunisian) documented in this encounter Ordered Prescriptions Prescription Sig Dispense Quantity Refills Last Filled Start Date End Date brexpiprazole (Rexulti) 0.5 mg tabletIndications: Panic attack,Bipolar 2 disorder (CMS/HCC) (HCC) Take 1 tablet (0.5 mg total) by mouth daily 30 tablet 03/30/2022 3 ALPRAZolam (XANAX) 0.5 mg tabletIndications: Panic Disorder Take 1 tablet (0.5 mg total) by mouth daily as needed for anxiety 30 tablet 03/30/2022 3 documented in this encounter Progress Notes * Daily Cruz MD - 03/30/2022 2:30 PM CST Images from the original note were not included. Patient ID: Jud Leung is a 31 y.o. female. Visit Date: 03/30/2022 Chief Complaint anxiety HPI HPI Treatments failed: zoloft, celexa, wellbutrin, effexor, cymbalta, vraylar Still having increased anxiety and depression Current Outpatient Medications: vqtcmztnsdcsy-ixhirqo-eqewhhcu (EXCEDRIN MIGRAINE) 250-250-65 mg per tablet, Take [...] 5 days, Disp: 6.7 each, Rfl: 1 ergocalciferol (VITAMIN D) 50,000 [...] AT NIGHT, Disp: 90 tablet, Rfl: 1 rimegepant (Nurtec ODT) tablet,disintegrating, Take by mouth, Disp: , Rfl: triamcinolone (KENALOG) 0.1 % cream, Apply topically 2 (two) times a day as needed for rash Do not use on the face or in the groin, Disp: 454 g, Rfl: 2 ALPRAZolam (XANAX) 0.5 mg tablet, Take 1 tablet (0.5 mg total) by mouth daily as needed for anxiety, Disp: 30 tablet, Rfl: 0 brexpiprazole (Rexulti) 0.5 mg tablet, Take 1 tablet (0.5 mg total) by mouth daily, Disp: 30 tablet, Rfl: 0 ggeosnlzyu-crzzawqi-ikmffeuyip (Breztri Aerosphere) 160-9-4.8 mcg/actuation HFA aerosol inhaler, INHALE 2 PUFFS TWICE A DAY, Disp: 10.7 g, Rfl: 1 fexofenadine (ARIANNA) 180 mg tablet, TAKE 1 TABLET BY MOUTH EVERY DAY, Disp: 30 tablet, Rfl: 0 Review of [...] The patient is nervous/anxious. Depression BP 114/76 (BP Location: Left arm, Patient Position: Sitting) Pulse 97 Temp 36.7 ??C (98 ??F) (Temporal) Resp 18 Ht 170.2 cm (5' 7 ) Wt 116.2 kg (256 lb 3.2 oz) SpO2 98% BMI 40.13 kg/m??Body mass index is 40.13 kg/m??. Physical Exam Diagnoses and all orders for this visit: Panic attack (Primary) Assessment & Plan: New Start rexulti Use xanax PRN Treatments failed: zoloft, celexa, wellbutrin, effexor, cymbalta, vraylar Orders: - ALPRAZolam (XANAX) 0.5 mg tablet; Take 1 tablet (0.5 mg total) by mouth daily as needed for anxiety - brexpiprazole (Rexulti) 0.5 mg tablet; Take 1 tablet (0.5 mg total) by mouth daily Bipolar 2 disorder (CMS/HCC) ([facility]) Assessment & Plan: New Start rexulti Use xanax PRN\ Treatments failed: zoloft, celexa, wellbutrin, effexor, cymbalta, vraylar Orders: - ALPRAZolam (XANAX) 0.5 mg tablet; Take 1 tablet (0.5 mg total) by mouth daily as needed for anxiety - brexpiprazole (Rexulti) 0.5 mg tablet; Take 1 tablet (0.5 mg total) by mouth daily Daily Cruz MD CARE MUSIC THERAPIST documented in this encounter Miscellaneous Notes * Assessment & Plan Note - Daily Cruz MD - 04/08/2022 6:48 AM HOME CARE MUSIC THERAPIST Associated Problem(s): Panic attack New Start rexulti Use xanax PRN Treatments failed: zoloft, celexa, wellbutrin, effexor, cymbalta, vraylar CARE MUSIC THERAPIST CARE MUSIC THERAPIST * Assessment & Plan Note - Daily Cruz MD - 04/08/2022 6:48 AM HOME CARE MUSIC THERAPIST Associated Problem(s): Bipolar 2 disorder (CMS/HCC) ([facility]) New Start rexulti Use xanax PRN\ Treatments failed: zoloft, celexa, wellbutrin, effexor, cymbalta, vraylar CARE MUSIC THERAPIST CARE MUSIC THERAPIST documented in this encounter Plan of Treatment [...] as of this encounter Visit Diagnoses Diagnosis Panic attack- Primary Panic disorder without agoraphobia Bipolar 2 disorder (CMS/HCC) (HCC) Other bipolar disorders documented in this encounter Discontinued Medications Medication Sig Discontinue Reason Start Date End Da te azithromycin (Zithromax Z-Michael) 250 mg tablet Take 2 tabs (500 mg) by mouth today, then 1 tab (250 mg) daily for 4 days. Therapy completed 03/22/2022 03/30/2022 diclofenac sodium (VOLTAREN) 1 % gel APPLY 4GRAMS TO AFFECTED AREA 4 TIMES A DAY . MAX 16GM DAILY TO ANY ONE AFFECTED JOINT Therapy completed 11/11/2021 03/30/2022 methylPREDNISolone (MEDROL DOSEPACK) 4 mg Dosepack Take 1 tablet (4 mg total) by mouth daily after breakfast follow package directions Therapy completed 03/22/2022 03/30/2022 tiZANidine (ZANAFLEX) 4 mg tablet Take 2 mg by mouth every 6 (six) hours as needed for muscle spasms Therapy completed 03/30/2022 documented as of this encounter Historical Medications * This list may reflect changes made after this encounter. rimegepant (Nurtec ODT) tablet,disintegra ting Take by mouth as needed 12/15/2022 added in this encounter Care Teams Brickmason Supervisor Relationship Specialty Start Date End Date Daily Cruz MD PCP - General Family Medicine 03/04/21 documented as of this encounter
--- OUTSIDE RECORDS SUMMARY | 2024-02-21 19:37 | XMS_ITS | Encounter Summary ---
Author Organization [facility] Address [address] [facility] [address] [place] [address] Care Team Providers Care Case Investigator Name Role Phone Daily Cruz MD Primary Care Provider [phone] Reason for Visit * Reason Comments Rash Encounter Details Date Type Department Care Team (Late st Contact Info) Description 09/22/2021 6:15 PM CDT Telemedicine [facility] Virtual Care [address] [place] [phone] Jodi No MD [address] [place] [phone] Allergic reaction to substance (Primary Dx) Social History Tobacco Use Types [...] on file 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 Leung, It was a pleasure speaking with you today. I've sent medication to the pharmacy you requested. Prednisone taper- Please take 4 tablets daily x 3 days, then 3 tablets daily x 3 days, then 2 tablets daily x 3 days, then 1 tablet daily x 3 days. You can take them all together or divide them up throughout the day. Most common side effect is upset stomach and jitteriness. Please take it with somefood if it upsets your stomach. Don't take all doses at bedtime because it may keep you up. Pepcid- this is a histamine-2 emilio that I want you to take 1 tablet daily. This can be taken with or without food. Most people tolerate this medicine very well. I also want you to start taking an vgsy-log-oilhpum antihistamine such as Claritin, Zyrtec, Allegraor Xyzal. I would like you to take this 1 tablet twice daily now while you're having symptoms. T We also discussed starting Flonase or Flonase Sensimist. I personally prefer the Flonase Sensimist because it's a mist that has no smell. This is a topical nasal steroid. Instructions are to use 1 puff in each nare twice a day for as long as you need to to help dry up drainage and open nasal congestion. Most common side effect is your nasal passages becoming too dry and developing nose bleeds. Ifyou feel you're becoming too dry, decrease frequency of use to 1 spray on each side once a day. If you have no improvement or worsening of your symptoms, please follow up with your Primary Care Provider or a Convenient Care/Urgent Care where someone can see you in person rather than virtually. I strive to provide you with EXCELLENT service. You may receive a survey after your visit today. If you cannot rate your experience as EXCELLENT, please let us know how we can improve and better meet your needs. Thank you for choosing [facility]! Hope you feel better soon! Jodi No MD documented in this encounter Ordered Prescriptions Prescription Sig Dispense Quantity Refills Last Filled Start Date End Date predniSONE (DELTASONE) 10 mg tablet Take 4 tablets by mouth x 3 days. Then take 3 tablets by mouth x 3 d. Then take 2 tablets by mouth x 3 d. Then take 1 tablet by mouth x 3 d. 30 tablet 09/22/2021 2 famotidine (PEPCID) 40 mg tablet Take 1 tablet (40 mg total) by mouth daily 30 tablet 09/22/2021 2 documented in this encounter Progress Notes * Jodi No MD - 09/22/2021 6:15 PM CDT This was a telemedicine visit with Jud Leung alone which took place via real-time video connection with [facility]. During the visit, I was located at home and the patient was located at home in the state [facility]. The patient visit started at 1808 and ended at 1824. My total encounter time on 09/22/2021 was 27 minutes which was spent in the activities documented in the note. This includes time spent prior to the visit and after the visit in direct care of the patient. This time does not include time spent in any separately reportable services.. The patient has been informed that the [...] billed and/or responsible for any applicable copayments. Subjective/Objective Patient ID: Jud Leung is a 31 y.o. female. 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 States she returned to work 2 days ago and the next day she started having head congestion, sinus drainage, watery itchy eyes, swelling in her face, rash scattered around her head and neck. Denies fevers, chills, n/v, cough, shortness of breath, chest pain. 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 Her symptoms got so bad 3-4 mos ago she had shortness of breathand had to take high dose steroids, inhalers, nebulizer medicine. She was tested several times for COVID at that time and was negative. Pt states her classroom was tested and mold was found. They still have not done mold remediation yet and pt has to continue to work in that same classroom. There is a strong family history of severe allergic reactions to mold requiring intensive treatment. Allergic Reaction This is a new problem. The current episode started yesterday. The problem occurs constantly. The problem has been waxing and waning since onset. The problem is moderate. Associated with: Mold in her classroom. The time of exposure was just prior to onset. The exposure occurred at work. Associated symptoms include coughing, eye itching, eye watering, itching and a rash. Pertinent negatives includeno abdominal pain, chest pain, chest pressure, diarrhea, difficulty breathing, drooling, eye redness, globus sensation, hyperventilation, stridor, trouble swallowing, vomiting or wheezing. Swelling is present on the face. Past treatments include diphenhydramine and one or more OTC medications. The t reatment provided mild relief. Her past medical history is significant for seasonal allergies. There is no history of asthma, atopic dermatitis, food allergies or medication allergies. Review of Systems HENT: Negative for drooling and trouble swallowing. Eyes: Positive for itching. Negative for redness. Respiratory: Positive for cough. Negative for wheezing and stridor. Cardiovascular: Negative for chest pain. Gastrointestinal: Negative for abdominal pain, diarrhea and vomiting. Skin: Positive for itching and rash. Allergic/Immunologic: Negative for food allergies. Physical Exam Vitals reviewed: Physical exam is limited by this being a telemedicine visit. Constitutional: General: She is not in acute distress. Appearance: Normal appearance. She is not ill-appearing, toxic-appearing or diaphoretic. HENT: Head: Normocephalic and atraumatic. Right Ear: External ear normal. Left Ear: External ear normal. Nose: Nose normal. Mouth/Throat: Mouth: Mucous membranes are moist. Pharynx: No oropharyngeal exudate or posterior oropharyngeal erythema. Eyes: General: No scleral icterus. Right eye: No discharge. Left eye: No discharge. Extraocular Movements: Extraocular movements intact. Conjunctiva/sclera: Conjunctivae normal. Pupils: Pupils are equal, round, and reactive to light. Pulmonary: Effort: Pulmonary effort is normal. Comments: Pt was able to speak in full and complete sentences. Pt was not using accessory muscles to breathe. Skin: Capillary Refill: Capillary refill takes less than 2 seconds. Neurological: General: No focal deficit present. Mental Status: She is alert and oriented to person, place, and time. Psychiatric: Mood and Affect: Mood normal. Behavior: Behavior normal. Thought Content: Thought content normal. Judgment: Judgment normal. I have reviewed the most recent progress note prior to this visit. Assessment/Plan Diagnoses and all orders for this visit: Allergic reaction to substance (T78.40XA) (Primary) Prednisone taper, Pepcid erx'ed to pharmacy. Encourage pt to take OTC antihistamine such as Claritin, Zyrtec, Sravanthi or Xyzal and OTC Flonase to help get symptoms under control. If swelling begins to affect mouth, tongue, throat, go to the ED. Encouraged pt to f/u w/ PCP to get into [facility]. Encourage pt to continue pressing her work to get the mold cleaned up at her classroom. Pt verbalizes understanding. Other orders - famotidine (PEPCID) 40 mg tablet; Take 1 tablet (40 mg total) by mouth daily - predniSONE (DELTASONE) 10 mg tablet; Take 4 tablets by mouth x 3 days. Then take 3 tablets by mouth x 3 d. Then take 2 tablets by mouth x 3 d. Then take 1 tablet by mouth x 3 d. documented in this encounter Plan of Treatment [...] of this encounter Visit Diagnoses Diagnosis Allergic reaction to substance- Primary documented in this encounter Care Teams Case Investigator Relationship Specialty Start Date End Date Daily Cruz MD PCP - General Family Medicine 03/04/21 documented as of this encounter
--- OUTSIDE RECORDS SUMMARY | 2024-02-21 19:37 | XMS_ITS | Encounter Summary ---
Author Organization [facility] Address [address] [facility] [address] [place] [address] Care Team Providers Care Hvac Sales Representative Name Role Phone Daily Cruz MD Primary Care Provider [phone] Reason for Visit * Reason Onset Date Comments Headache 05/26/2022 Encounter Details Date Type Department Care Team (Late st Contact Info) Description 05/26/2022 Nurse Triage [facility] Family Medicine at [place] [address] [facility] [address] [place] [address] Daily Cruz MD [address] [place] [address] [address] [place] [address] Social History Tobacco Use Types [...] on file 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 She was seen in office on 03/30 and prescribed medication for anxiety and states she feels this has affected her BP and caused her to gain weight. States she has dizziness and nausea that comes and goes. She states she called to schedule an appt to be seen. She states she has been very tired. She states she has a bad headache, dizziness and blurred vision today. She states by the end of the days, her legs are very swollen and she has pitting edema. Denies chest pain or SOB. Her headache is located on the left side of her head. Rates her pain as moderate but worsening. She states her eyes feel very heavyand it hurts to blink. She states she has been drinking plenty of water. furniture and bedding inspector Protocol Recommends: Go to ed/[facility] Now or to Office with PCP Approval. SC sent to Dr. Yadi Calero. No response received. Advised ER/UC. Home Care Advice Given: Drink plenty of water, change positions slowly, have someone drive you Educated pt to call back if worsens, new symptoms develop or has further questions/concerns. PCP/COLD MILL OPERATOR contacted via secure chat for ED disposition consult. Recommendation from provider:No response, other: Advised ER/UC Reason for Disposition Loss of vision or double vision (Exception: Same as prior migraines.) Protocols used: [id number] * Telephone Encounter - Christa Leal RN - 05/26/2022 11:24 AM CDT Regarding: high blood pressure, weight gain, headache ----- Message from Milagros Sahu sent at 05/26/2022 11:23 AM CDT ----- Symptom Based Call Caller's Callback #: [phone] Chief Complaint(s): high blood pressure, weight gain, dizziness, edema swelling,headache Duration: a month What type of symptom(s) is the patient experiencing? Red Flag. Is the patient concerned they are experiencing a medical emergency requiring an ambulance? No Additional Comments: Patient was seen in office for anxiety and was given medication and it affected her blood pressure and also causing her to fluctuate between weight. She states that she may feel dizzy and get nauseous Patient wanted Does message need to be routed?Yes-Action Needed [...] on filedocumented in this encounter Care Teams Hvac Sales Representative Relationship Specialty Start Date End Date Daily Cruz MD PCP - General Family Medicine 03/04/21 documented as of this encounter
--- OUTSIDE RECORDS SUMMARY | 2024-02-21 19:37 | XMS_ITS | Encounter Summary ---
Author Organization [facility] Address [address] [place] [address] Phone Care Team Providers Care Supervisor Engines [address] Name Role Phone Daily Cruz MD Primary Care Provider [phone] [phone] Reason for Visit * Reason Comments New Patient * Consultation (Routine) - Closed Specialty Diagnoses / Procedures Referred By Contfabian burk Referred To Contact Allergy Diagnoses Allergic reaction to substance Daily Cruz MD Phone: tel: fax: [facility] (All Locations) Referral ID Status Reason Start Date Expiration Date V isits Requested Visits Authorized [id number] Closed Specialty Services Required 09/23/2021 10/23/2022 12 12 Encounter Details Date Type Department Care Team (Latest Contact Info) Description 12/21/2021 1:00 PM BLOOD BANK WORKER Office Visit [facility] Allergy and Immunology [address] [place] [address] Hortencia Rivera MD PhD [address] [place] [address] Uncomplicated asthma, unspecified asthma severity, unspecified whether persistent (Primary Dx); Allergic reaction to substance; Seasonal allergic rhinitis due to pollen; Non-seasonal allergic rhinitis due to fungal spores; Allergic conjunctivitis of both eyes Social History Tobacco Use Types Packs/Day Years [...] on file Legal Sex Female 3:37 PM BLOOD BANK WORKER Gender Identity Female 03/02/2020 4:27 PM BLOOD BANK WORKER Sexual Orientation Straight 07/10/2019 11 :13 PM CDT documented as of this encounter Last Filed Vital Signs Vital Sign Reading Time Taken Comments Blood Pressure 121/86 12/21/2021 12:55 PM BLOOD BANK WORKER Pulse 90 12/21/2021 12:55 PM BLOOD BANK WORKER Temperature 36.4 ??C (97.6 ??F) 12/21/2021 1 2:55 PM BLOOD BANK WORKER Respiratory Rate 20 12/21/2021 12:5 5 PM BLOOD BANK WORKER Oxygen Saturation 99% 12/21/2021 12: 55 PM BLOOD BANK WORKER Inhaled Oxygen Concentration - - Weight 118.6 kg (261 lb 6.4 oz) 022 12:55 PM BLOOD BANK WORKER Height 170.2 cm (5' 7 ) 12/21/2021 12:5 5 PM BLOOD BANK WORKER Body Mass Index 40.94 12/21/2021 12:55 PM BLOOD BANK WORKER documented in this encounter Patient Instructions * Patient Instructions* Hortencia Rivera MD PhD - 12/21/2021 1:00 PM BLOOD BANK WORKER - Tight environmental control: Detailed written instruction on reducing allergen exposure are provided. - Immunotherapy is strongly recommended (considering severity, atopic/allergic comorbidity, response to medications and impact on QoL). - Please take all your medications regularly. Environmental Allergen Avoidance measures You are allergic to the allergens marked with a '+': Better control of you allergies is achieved when you use medications as prescribed AND reduce exposure to those allergens as briefly described below. [+] Dust mites * Use dust mite proof covers for your pillows and mattress (& box spring). * Wash bed sheets and pillow covers in hot water every week. * Dry linen for additional 20 minutes on HOT if washing water is not hot enough. * Minimize clutter and dust collecting surfaces. * Remove (or minimize exposure to) stuffed toys from the bed. * Keep humidity below 50%. * Carpeted floors are a source of dust and dust mites. Frequent vacuuming (or eliminations if possible) can be helpful. [+] Cats / [+] Dogs * Remove the pet from the home environment. This is the preferred choice. * If that is not possible, then the following may help: * - exclude pets from bedrooms. * - do not let pets on upholstered furniture. * - wash your pet once a week. * - High efficiency air filters (HEPA filters) may help too. * Remember: it takes several weeks to get rid of dog and cat allergens after pets are excluded completely from the environment. [+] Molds * Keep home and car windows closed. Use air conditioning all the time. * Keep humidity below 50%. It is important to use a humidity meter to check relative humidity in your environment * Repair any possible sources of leaks in bathrooms and basement. * If there is moldy areas at home fixing leaks is very important and, if needed, use professional help/services. * Avoid raking old and damp leaves. Use proper mask if you have to do it! [+] Pollens (Trees mostly in spring, grasses in late spring and early summer, weeds mostly in fall) * Keep home and car windows closed. Use air conditioning all the time. * Avoid outdoor exercise and extended activities when pollen counts are high. * After prolonged outdoor activity, change your clothes & take a shower D BANK WORKER D BANK WORKER documented in this encounter Progress Notes * Larisa Barajas MA - 12/21/2021 2:34 PM CST 12/21/21 1432 Test Information Last use of antihistamine (or other medication affecting response to to histamine)? 12/14/21 Allergen it operations specialist Prado Method Intradermal Location Arm Testing Nurse/JENNIFER Ventura Reviewing Physician Raquel Panel 1: Trees Maple, Red ( W/F in millimeters) 3mm Panel 2: Tree & Grass Otis (W/F in millimeters) n Panel 4: Weeds & Molds Pigweed Spiny (W/F in millimeters) n Rwandan Plantain (W/F in millimeters) n Ragweed Mix (W/F in millimeters) 5mm Aspergillus (W/F in millimeters) n Panel 5: Molds Cladosporium (W/F in millimeters) 4mm Curvularia (W/F in millimeters) 3mm Helminthosporium (W/F in millimeters) 3mm Bipolaris (W/F in millimeters) n Panel 6: Mold, Pets & Insects Rhizopus N. (W/F in millimeters) 6mm D. Pteronyssinus (W/F in millimeters) 5mm Dog AP* (W/F in millimeters) 3mm D BANK WORKER * Larisa Barajas MA - 12/21/2021 2:29 PM CST 12/21/21 1400 Test Information Last use of antihistamine (or other medication affecting response to to histamine)? 12/14/21 Allergen it operations specialist Prado Method Epicutaneous Location Back Testing Nurse/JANICE Barajas Zenaida Reviewing Physician Raquel Panel 1: Trees Histamine (W/F millimeters) 4+ [place]ozef (W/F in millimeters) 2+ Birch Mix (W/F in millimeters) 3+ [place] Eastern (W/F in millimeters) 3+ Elm Mix (W/F in Millimeters) 4+ [place] (W/F in millimeters) 2+ Maple, Red ( W/F in millimeters) n [place] (W/F in millimeters) n Panel 2: Tree & Grass Saline (W/F millimeters) n [place] Mix (W/F in millimeters) 3+ [place] (W/F in millimeters) 3+ [place] (W/F in millimeters) 2+ [place] (W/F in millimeters) n [place] (W/F in millimeters) 2+ Brome Grass (W/F in millimeters) 3+ Otis (W/F in millimeters) n Panel 3: Grass & Weeds Histamine (W/F millimeters) 4+ [place] Big Sky (W/F in millimeters) 4+ [place] (W/F in millimeters) 2+ Cockelbur (W/F in millimeters) n Firebush/Kochia (W/F in millimeters) n Dickerson's Quarter (W/F in millimeters) 2+ Marshelder, True (W/F in millimeters) 4+ Nettle (W/F in millimeters) 2+ Panel 4: Weeds & Molds Saline (W/F millimeters) n Pigweed Spiny (W/F in millimeters) n Rwandan Plantain (W/F in millimeters) n Ragweed Mix (W/F in millimeters) n Kenyan Thistle (W/F in millimeters) 2+ Sagebrush (W/F in millimeters) 2+ Alternaria Alternata (W/F in millimeters) 2+ Aspergillus (W/F in millimeters) n Panel 5: Molds Histamine (W/F millimeters) 4+ Cladosporium (W/F in millimeters) n Curvularia (W/F in millimeters) n Epicoccum (W/F in millimeters) 4+ Fusarium (W/F in millimeters) 3+ Helminthosporium (W/F in millimeters) n Bipolaris (W/F in millimeters) n Penicillium (W/F in millimeters) 2+ Panel 6: Mold, Pets & Insects Saline (W/F millimeters) n Rhizopus N. (W/F in millimeters) n D. Pteronyssinus (W/F in millimeters) n D. Farinae (W/F in millimeters) 2+ Cat Epithelium (W/F in millimeters) 2+ Dog AP* (W/F in millimeters) n Cockroach Mix (W/F in millimeters) 2+ Mouse (W/F in Millimeters) n Panel 7: Miscellaneous Histamine (W/F in millimeters) 4+ Popular (W/F in millimeters) n [place] (W/F in millimeters) n Grain Smut Mix (W/F in millimeters) n Geotrichum C. (W/F in millimeters) 2+ Rhodotorula R. (W/F in millemiters) 2+ Stemphylium (W/F in millileters) 2+ Saline (W/F millimeters) 2+ D BANK WORKER * Hortencia Rivera MD PhD - 12/21/2021 1:00 PM CST Daily Cruz MD, We had the pleasure of seeing Jud Leung today in the Division of Allergy and Immunology at [facility] [employer] [facility] for consultation for allergies. 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 Dermatology initiated strong topical steroid with oral prednisone, for a months. Rash improved, but the patient was feeling sick. 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 The patient started having nasal symptoms and progressive asthma symptoms needing urgent care visits. Patient was OK over summer school vacations but on return to school, mold was found in the classroom, but she started having hives on contact with the class surfaces, with progressive shortness of breath over the next 24 hours. She also had a bad episode of hives head to toe . Patient changes class room but still having a lot of headaches, facial pressure, cough, better with some inhalers, The patient has long history of headaches, increase on exposure to pets, including cats, dogs and birds. Diagnosed with allergies, reactive air way disease. She suffered many bronchitis episodes some weresevere requiring hospital admissions. I was sick all the time as a child Symptoms improved once out of the family home. Strong eye irritation with certain brands of make up without any residual skin rashes or eczema. Does no consider herself as having sensitive skin No history of allergy evaluation or PFTs in the past. She has not started a trial of Breztri and montelukast prescribed History of Symptoms: Nasal symptoms : + Congestion, + sneezing, + runny nose Eyes: + Itchy watery eyes, + ear fullness/plugging or clicking, + sinus pressure/headaches, + sinusinfections (2-3 x per year), + postnasal drainage, + throat itching/cough Chest: + chest cough, + wheezing, + bronchitis Skin: no Eczema, ++ hives, no swelling Symptoms are all year round, ++ seasonal worsening Triggers: Fresh cut grass (+), raking leaves (+), weather changes (+), dander exposure (++, cats, dogs and birds), Impact on QoL: ++ Disturbed Sleep, Works/school or Social life Patient's environment: 0 Cat(s) 0 Dog(s), [parent have carts and dogs], patient has birds, 50+ yr-old building, + water leaks at home, at work with evident mold infestation at work, bedrooms are carpeted Atopic Family history: + sisters Past Medical History: Past Medical History: Diagnosis Date ADHD (attention deficit hyperactivity disorder) Anxiety Arthritis Brain concussion 2010, 2009 Chronic bronchitis (CMS/HCC) (HCC) Depression Gastric reflux GERD (gastroesophageal reflux disease) PRN tums IIH (idiopathic intracranial hypertension) Pseudotumor cerebri. reports last spinal tap 2017. 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 Kidney stone 2019 Low back pain Lymphedema [...] SOB (shortness of breath) Past Surgical History: Past Surgical History: Procedure Laterality Date ABDOMINAL SURGERY Laparoscopic surgery to remove endometriosis FOOT SURGERY Bilateral 2019 2 left bunion, 1 right bunion- hardware in place left and right foot FOOT SURGERY 07/16/2019 revision left tarsometatarsal joint arthrodesis iliac crest bone graft - Left LAPAROSCOPIC ENDOMETRIOSIS FULGURATION 2018 TONSILLECTOMY WISDOM TOOTH EXTRACTION Allergies: Acetazolamide, Dihydroergotamine, Hydrochlorothiazide, Nickel, Topiramate, Hydrocodone-acetaminophen, Lamotrigine, Levetiracetam, and Oxycodone-acetaminophen Current Medications: Current Outpatient Medications: xfvwhqwxmpzeg-vnhcxeq-gnpisbap (EXCEDRIN MIGRAINE) 250-250-65 mg per tablet, Take [...] FOR WHEEZING, Disp: 6.7 each, Rfl: 1 jggzmhfbiy-hqmhutpb-khfipxjxki (Breztri Aerosphere) 160-9-4.8 mcg/actuation HFA aerosol inhaler, [...] reports current drug use. Drug: Alcohol. Patient reports consuming alcoholic drinks monthly or less, with a daily consumption of drinks. Patient denies daily consumption of 6 or more alcoholic drinks at one occasion. Family History: Family History Problem Relation Age [...] Grandmother Depression Sister Anesthesia problems Neg Hx Review of Symptoms Review of systems has no pertinent positives, o/w as noted in HPI. Reviewed patient's history form and the review of systems. Physical Exam: BP 121/86 (BP Location: Left arm, Patient Position: Sitting) Pulse 90 Temp 36.4 ??C (97.6 ??F) (Oral) Resp 20 Ht 170.2 cm (5' 7 ) Wt 118.6 kg (261 lb 6.4 oz) SpO2 99% BMI 40.94 kg/m?? General: Patient is well nourished, well developed and in no acute distress. HEENT: Normocephalic, atraumatic, EOMI. ++ conjunctival injection. Tympanic membranes clear bilaterally. ++ nasal mucosal pallor and ++ nasal turbinate enlarged, + reduced nasal air flow, + pharyngeal cobblestoning, + pretonsillar erythema, + exudate, ++ sinus tenderness. Neck: Supple with no lymphadenopathy. Lungs: CTA. No wheezing, no accessory respiratory muscle activity or labored breathing. Cardiovascular: Regular rate and rhythm. No murmur. Skin: no rashes, eczema or swelling Neurological and musculoskeletal: grossly intact Extremities: No clubbing, cyanosis, or edema. Allergy Testing: After obtaining verbal informed consent, skin testing was performed to our comprehensive environmental panel with aeroallergens tested on epicutaneous testing and (and intradermal testing if deemed necessary). Skin tests showed the following reactivity to allergens: Dust mites (+), Mold spores (+), Trees (+), Grasses (+), Weeds (+), Cat (+), Dog (+) Spirometry: Office spirometry is showing low normal value, but the patient has out of proportion symptoms. Impression: (J45.909) Uncomplicated asthma, unspecified asthma severity, unspecified whether persistent (primary encounter diagnosis) (T78.40XA) Allergic reaction to substance Plan: Ambulatory referral to Allergy (J30.1) Seasonal allergic rhinitis due to pollen (J30.89) Non-seasonal allergic rhinitis due to fungal spores (H10.13) Allergic conjunctivitis of both eyes The patient's asthma symptoms are not well controlled. Nasal and eye allergies are not well controlled. Recommendations: The patient need to take her allergy (emerson and Flonase) ans asthma medicine (montelukast and Breztri) as prescribes. Follow up for symptoms assessment and post treatment spirometry. - Tight environmental control: Detailed written instruction on reducing allergen exposure are provided. - Immunotherapy is strongly recommended (considering severity, atopic/allergic comorbidity, response to medications and impact on QoL). Follow up: Return in about 4 weeks (around 01/18/2022). My total encounter time on 12/21/2021 was 80 minutes which was spent in the activities documented inthe note. This includes time spent prior to the visit and after the visit in direct care of the patient. This time does not include time spent in any separately reportable services. Hortencia Rivera MD, PHD D BANK WORKER documented in this encounter Plan of [...] Priority Date/Time Associated Diagnosis Comments SCAN - LABS 12/21/2021 documented in this encounter Results * SCAN - LABS (12/21/2021) us Provider Scanning Final Result documented in this encounter Visit Diagnoses Diagnosis Uncomplicated asthma, unspecified asthma severity, unspecified whether persistent- Primary Allergic reaction to substance Seasonal allergic rhinitis due to pollen Non-seasonal allergic rhinitis due to fungal spores Allergic conjunctivitis of both eyes Other chronic allergic conjunctivitis documented in this encounter Orders Outpatient Referral Count Last Ordered Date Fir st Ordered Date AMB REFERRAL TO ALLERGY 1 12/21/2021 documented in this encounter Care Teams Supervisor Engines [address] Relationship Specialty Start Date End Date Daily Cruz MD PCP - General Family Medicine 03/04/21 documented as of this encounter
--- OUTSIDE RECORDS SUMMARY | 2024-02-21 19:37 | XMS_ITS | Encounter Summary ---
Author Organization [facility] Address [address] [place] [address] Phone Care Team Providers Care Merchandising Team Lead Name Role Phone Daily Cruz MD Primary Care Provider [phone] [phone] Reason for Visit * Reason Onset Date Comments urgnet appointment 06/25/2021 Encounter Details Date Type Department Care Team (Late st Contact Info) Description 06/25/2021 Telephone [facility] Dermatology [address] [place] [address] Marylou Austin urgnet appointment Social History Tobacco Use Types Packs/Day Years [...] on file Legal Sex Female 3:37 PM BUSINESS ANALYTICS INTERN Gender Identity Female 03/02/2020 4:27 PM BUSINESS ANALYTICS INTERN Sexual Orientation Straight 07/10/2019 11 :13 PM CDT documented as of this encounter Miscellaneous Notes * Telephone Encounter - Marylou Austin - 06/25/2021 1:46 PM CDT Great! She is coming in at 2pm * Telephone Encounter - Natasha Sandoval MD - 06/25/2021 11:12 AM CDT Yes, that's fine. I can have up to 22 on the schedule, thanks. * Telephone Encounter - Marylou Austin - 06/25/2021 9:31 AM CDT Please add patient to gus at 2pm..thanks * Telephone Encounter - Carlos Gonzales - 06/25/2021 8:27 AM CDT The patient is calling to get an urgent for Herpes Zoster/rash on arms that is spreading. The referral is from a Dr. Cruz. documented in this encounter Plan of Treatment [...] on filedocumented in this encounter Care Teams Merchandising Team Lead Relationship Specialty Start Date End Date Daily Cruz MD PCP - General Family Medicine 03/04/21 documented as of this encounter
--- OUTSIDE RECORDS SUMMARY | 2024-02-21 19:37 | XMS_ITS | Encounter Summary ---
Author Organization [facility] Address [address] [facility] [address] [place] [address] Care Team Providers Care Patient Transport Orderly Name Role Phone Daily Cruz MD Primary Care Provider [phone] Reason for Visit * Reason Comments Sinus Problem Dizziness Encounter Details Date Type Department Care Team (Late st Contact Info) Description 12/06/2021 2:15 PM CDT Office Visit [facility] Family Medicine at [facility] [address] [facility] [address] [place] [address] Daily Cruz MD [address] [place] [address] [address] [place] [address] Reactive airway disease without asthma (Primary Dx); Chronic bilateral low back pain with bilateral sciatica; Allergic reaction, initial encounter Social History Tobacco [...] on file 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 Gender Identity Female 03/02/2020 4:27 PM PHYSICS TECHNICAL OFFICER Sexual Orientation Straight 07/10/2019 11 :13 PM CDT documented as of this encounter Last Filed Vital Signs Vital Sign Reading Time Taken Comments Blood Pressure 98/70 12/06/2021 2:49 PM CDT Pulse 71 12/06/2021 2:49 PM CDT Temperature 36.7 ??C (98.1 ??F) 12/06/2021 2:49 PM CD T Respiratory Rate 14 12/06/2021 2:49 PM CDT Oxygen Saturation 96% 12/06/2021 2:49 PM CDT Inhaled Oxygen Concentration - - Weight 120 kg (264 lb 9.6 oz) 12/06/2021 2:49 PM CDT Height 170.2 cm (5' 7 ) 12/06/2021 2:49 PM CDT Body Mass Index 41.44 12/06/2021 2:49 PM CDT documented in this encounter Patient Instructions * Attachments The following attachments cannot be sent through Care Everywhere. * Fexofenadine (By mouth) (Bolivian) documented in this encounter Ordered Prescriptions Prescription Sig Dispense Quantity Refills Last Filled Start Date End Date budesonide-glycopy r-formoterol (Breztri Aerosphere) 160-9-4.8 mcg/actuation HFA aerosol inhalerIndications :Reactive airway disease without asthma,Allergic reaction, initial encounter Inhale 2 puffs 2 (two) times a day 10.7 g 12/06/2021 3 montelukast (SINGULAIR) 10 mg tabletIndications: Reactive airway disease without asthma,Allergic reaction, initial encounter Take 1 tablet (10 mg total) by mouth nightly 30 tablet 12/06/2021 2 fluticasone propionate (FLONASE) 50 mcg/actuation nasal sprayIndications:R eactive airway disease without asthma,Allergic reaction, initial encounter Administer 2 sprays into each nostril daily 16 g 12/06/2021 2 fexofenadine (ARIANNA) 180 mg tabletIndications: Reactive airway disease without asthma,Allergic reaction, initial encounter Take 1 tablet (180 mg total) by mouth daily 30 tablet 12/06/2021 3 methylPREDNISolone (MEDROL DOSEPACK) 4 mg DosepackIndication s:Reactive airway disease without asthma,Allergic reaction, initial encounter Take as directed on package. 21 tablet 12/06/2021 2 documented in this encounter Progress Notes * Daily Cruz MD - 12/06/2021 2:15 PM CDT Images from the original note were not included. Patient ID: Jud Leung is a 31 y.o. female. Visit Date: 12/06/2021 Chief Complaint diizziness HPI HPI Refer to pain management Samples of emgality and nurtec given Current Outpatient Medications: prylxyjdrfzhr-zvyzcdf-tlsexqfo (EXCEDRIN MIGRAINE) 250-250-65 mg per tablet, Take [...] FOR WHEEZING, Disp: 6.7 each, Rfl: 1 ergocalciferol (VITAMIN D) 50,000 unit capsule, Take 1 capsule (50,000 Units total) by mouth once aweek, Disp: 4 capsule, Rfl: 5 famotidine (PEPCID) 40 mg tablet, Take 1 tablet (40 mg total) by mouth daily, Disp: 30 tablet, Rfl:0 furosemide (LASIX) 40 mg tablet, Take 1 [...] intrauterine route once , Disp: , Rfl: tiZANidine (ZANAFLEX) 4 mg tablet, Take 2 mg by mouth every 6 (six) hours as needed for muscle spasms, Disp: , Rfl: triamcinolone (KENALOG) 0.1 % cream, Apply topically 2 (two) times a day as needed for rash Do not use on the face or in the groin, Disp: 454 g, Rfl: 2 juowogzkzq-mtyopnsg-budlaigibq (Breztri Aerosphere) 160-9-4.8 mcg/actuation HFA aerosol inhaler, Inhale 2 puffs 2 (two) times a day, Disp: 10.7 g, Rfl: 0 diclofenac sodium (VOLTAREN) 1 % gel, APPLY 4GRAMS TO AFFECTED AREA 4 TIMES A DAY . MAX 16GM DAILY TO ANY ONE AFFECTED JOINT, Disp: , Rfl: fexofenadine (ARIANNA) 180 mg tablet, Take 1 tablet (180 mg total) by mouth daily, Disp: 30 tablet,Rfl: 0 fluticasone propionate (FLONASE) 50 mcg/actuation nasal spray, Administer 2 sprays into each nostril daily, Disp: 16 g, Rfl: 0 methylPREDNISolone (MEDROL DOSEPACK) 4 mg Dosepack, Take as directed on package., Disp: 21 tablet, Rfl: 0 montelukast (SINGULAIR) 10 mg tablet, Take 1 tablet (10 mg total) by mouth nightly, Disp: 30 tablet, Rfl: 0 Review of [...] arthralgias and back pain. Neurological: Positive for dizziness and headaches. Hematological: Does not bruise/bleed easily. Psychiatric/Behavioral: Negative for behavioral problems and confusion. BP 98/70 (BP Location: Left arm, Patient Position: Sitting) Pulse 71 Temp 36.7 ??C (98.1 ??F) (Temporal) Resp 14 Ht 170.2 cm (5' 7 ) Wt 120 kg (264 lb 9.6 oz) SpO2 96% BMI 41.44 kg/m?? Body mass index is 41.44 kg/m??. Physical Exam Constitutional: Appearance: Normal appearance. [...] Diagnoses and all orders for this visit: Reactive airway disease without asthma (Primary) - methylPREDNISolone (MEDROL DOSEPACK) 4 mg Dosepack; Take as directed on package. - fexofenadine (ARIANNA) 180 mg tablet; Take 1 tablet (180 mg total) by mouth daily - fluticasone propionate (FLONASE) 50 mcg/actuation nasal spray; Administer 2 sprays into each nostril daily - montelukast (SINGULAIR) 10 mg tablet; Take 1 tablet (10 mg total) by mouth nightly - yhopajlufd-pzturnfn-myxhdobgds (Breztri Aerosphere) 160-9-4.8 mcg/actuation HFA aerosol inhaler; Inhale 2 puffs 2 (two) times a day - triamcinolone (KENALOG) 40 mg/mL injection 40 mg Chronic bilateral low back pain with bilateral sciatica - ketorolac (TORADOL) 60 mg/2 mL intramuscular injection 60 mg Allergic reaction, initial encounter - methylPREDNISolone (MEDROL DOSEPACK) 4 mg Dosepack; Take as directed on package. - fexofenadine (ARIANNA) 180 mg tablet; Take 1 tablet (180 mg total) by mouth daily - fluticasone propionate (FLONASE) 50 mcg/actuation nasal spray; Administer 2 sprays into each nostril daily - montelukast (SINGULAIR) 10 mg tablet; Take 1 tablet (10 mg total) by mouth nightly - dtqbweimhs-hvbdsand-fljctbwwxr (Breztri Aerosphere) 160-9-4.8 mcg/actuation HFA aerosol inhaler; Inhale 2 puffs 2 (two) times a day - triamcinolone (KENALOG) 40 mg/mL injection 40 mg Daily Cruz MD documented in this encounter [...] as of this encounter Visit Diagnoses Diagnosis Reactive airway disease without asthma- Primary Chronic bilateral low back pain with bilateral sciatica Allergic reaction, initial encounter documented in this encounter Administered Medications Inactive Administered Medications - up to 3 most recent administrations Medication Order MAR Action Action Date Dose Rate Site ketorolac (TORADOL) 60 mg/2 mL intramuscular injection 60 mg 60 mg, intramuscular, Once, On Mon12/06/21 at 1615, For 1 doseIndications:Chronic bilateral low back pain with bilateral sciatica Given 12/06/2021 3:40 PM CDT 60 mg Right Ventrogluteal triamcinolone (KENALOG) 40 mg/mL injection 40 mg 40 mg, intramuscular, Once, On Mon12/06/21 at 1615, For 1 doseIndications:Reactive airway disease without asthma,Allergic reaction, initial encounter Given 12/06/2021 3:39 PM CDT 40 mg Left Ventrogluteal documented in this encounter Discontinued Medications Medication Sig Discontinue Reason Start Date End Da te acetaminophen (TYLENOL) 500 mg tablet Take 1,000 mg by mouth every 6 (six) hours as needed for pain Therapy completed 12/06/2021 budesonide-formoteroL (SYMBICORT) 160-4.5 mcg/actuation inhalerIndications:Acute bronchitis due to other specified organisms Inhale 2 puffs 2 (two) times a day Rinse mouth with water after use. Do not swallow. Therapy completed 07/20/2021 12/06/2021 fluticasone propionate (FLONASE) 50 mcg/actuation nasal sprayIndications:Cough,N yaakov congestion Administer 2 sprays into each nostril daily Therapy completed 12/18/2019 12/06/2021 levocetirizine (XYZAL) 5 mg tabletIndications:Cough, Nasal congestion Take 1 tablet (5 mg total) by mouth daily Therapy completed 12/18/2019 12/06/2021 ondansetron ODT (ZOFRAN-ODT) 4 mg disintegrating tabletIndications:Acute bilateral low back pain without sciatica Take 1 tablet (4 mg total) by mouth every 8 (eight) hours as needed for nausea or vomiting Therapy completed 09/27/2021 12/06/2021 oxyCODONE-acetaminophen (PERCOCET) 5-325 mg per tabletIndications:Pain Take 1 tablet by mouth every 8 (eight) hours as needed for pain Do not exceed 8 tablets per day. Therapy completed 09/27/2021 12/06/2021 rimegepant (Nurtec ODT) tablet,disintegratingInd ications:Migraine Take 1 tablet (75 mg total) by mouth daily as needed (headache) Therapy completed 10/21/2021 12/06/2021 SUMAtriptan (IMITREX) 50 mg tablet TAKE 1 TABLET BY MOUTH ONCE NEEDED FOR MIGRAINE. MAY REPEAT DOSE AFTER 2 HOURS Therapy completed 09/18/2020 12/06/2021 documented as of this encounter Historical Medications * This list may reflect changes made after this encounter. diclofenac sodium (VOLTAREN) 1 % gel APPLY 4GRAMS TO AFFECTED AREA 4 TIMES A DAY . MAX 16GM DAILY TO ANY ONE AFFECTED JOINT 11/11/2021 03/30/2022 added in this encounter Care Teams Patient Transport Orderly Relationship Specialty Start Date End Date Daily Cruz MD PCP - General Family Medicine 03/04/21 documented as of this encounter
--- OUTSIDE RECORDS SUMMARY | 2024-02-21 19:37 | XMS_ITS | Encounter Summary ---
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 Gender Identity Female 03/02/2020 4:27 PM 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 Sexual Orientation Straight 07/10/2019 11 :13 PM CDT documented as of this encounter Last Filed Vital Signs Vital Sign Reading Time Taken Comments Blood Pressure 122/71 09/26/2021 11:45 AM CDT Pulse 67 09/26/2021 11:45 AM CDT Temperature 37.2 ??C (99 ??F) 09/26/2021 11: 45 AM CDT Respiratory Rate 22 09/26/2021 11:4 5 AM CDT Oxygen Saturation 97% 09/26/2021 11: 45 AM CDT Inhaled Oxygen Concentration - - Weight 122.9 kg (270 lb 15.1 oz) 2021 11:45 AM CDT Height - - Body Mass Index 42.44 07/23/2021 1:48 PM CDT documented in this encounter Discharge Instructions * Discharge Instructions* Lilian Phan PA - 09/26/2021 1:12 PM CDT Follow-up as recommended is mandatory. You have received emergency care only at your visit today. This is not a substitute for ongoing care, further evaluation and treatment and therefore follow-up as directed is not optional but mandatory You MUST follow up for further evaluation of all incidental abnormal radiographic and laboratory findings, Have your physician obtain records from this visit and address all the incidental abnormal findings. This may include final results of lab testing, cultures, final x-ray reports which may not have been available during the time of the visit. Return immediately for any new symptoms, worsening of symptoms, or persistent symptoms * Attachments The following attachments cannot be sent through Care Everywhere. * Ankle Sprain (AfterCare(R) Instructions(ER/ED)) (Solomon Islander) documented in this encounter Medications at Time [...] not swallow. 1 each 1 07/20/2021 2 famotidine (PEPCID) 40 mg tablet Take 1 tablet (40 mg total) by mouth daily 30 tablet 09/22/2021 2 fluticasone propionate (FLONASE) 50 mcg/actuation nasal [...] 1 each by intrauterine route once 3 predniSONE (DELTASONE) 10 mg tablet Take 4 tablets by mouth x 3 days. Then take 3 tablets by mouth x 3 d. Then take 2 tablets by mouth x 3 d. Then take 1 tablet by mouth x 3 d. 30 tablet 09/22/2021 2 SUMAtriptan (IMITREX) 50 mg tablet TAKE 1 [...] documented in this encounter ED Notes * Lilian Phan PA - 09/26/2021 1:39 PM CDT HPI Chief Complaint Patient presents with ??? Ankle Pain HPI 9:34 AM Jud Leung is a 31 y.o. female presenting to the ED c/o left lateral ankle pain. Reports she had a trip and fall earlier this morning. States she has noticed increased swelling in her left lateral ankle. Pain is worse with movement and weight-bearing activities. States she does have hardware in her foot from a bunion surgery several years ago. Patient presents to ED with a walking boot in place. She has taken tmmy-tyj-lkvijnk medications for symptoms. She is ambulatory without difficulty. Patient History: Past Medical History: Diagnosis Date ??? ADHD (attention deficit hyperactivity disorder) ??? Anxiety ??? Arthritis ??? Brain concussion 2010, 2009 ??? Chronic bronchitis (CMS/HCC) (HCC) ??? Depression ??? Gastric reflux ??? GERD (gastroesophageal reflux disease) PRN tums ??? IIH (idiopathic intracranial hypertension) Pseudotumor cerebri. reports last spinal tap 2017. currently following with PCP, previously has followed with neuro ??? Irritability ??? 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 Kidney stone 2019 ??? Low back [...] 2017 ??? TONSILLECTOMY ??? WISDOM TOOTH EXTRACTION Family History Problem Relation [...] Depression Sister ??? Anesthesia problems Neg Hx Social History Tobacco Use ??? Smoking status: Never Smoker ??? Smokeless tobacco: Never Used Substance and Sexual Activity ??? Drug use: Yes Types: Alcohol Comment: ~3 drinks/month ??? Sexual activity: Yes Partners: Male control/protection: I.U.D. Alcohol Use: Not At Risk ??? Frequency of Alcohol Consumption: Monthly or less ??? Average Number of Drinks: 1 or 2 ??? Frequency of Binge Drinking: Never No current facility-administered medications for this encounter. Current Outpatient Medications: ??? acetaminophen (TYLENOL) 500 mg tablet ??? albuterol 2.5 mg /3 mL (0.083 %) nebulizer solution ??? albuterol HFA (PROVENTIL HFA,VENTOLIN HFA,PROAIR HFA) 90 mcg/actuation inhaler ??? budesonide-formoteroL (SYMBICORT) 160-4.5 mcg/actuation inhaler ??? famotidine (PEPCID) 40 mg tablet ??? fluticasone propionate (FLONASE) 50 mcg/actuation nasal spray ??? furosemide (LASIX) 20 mg tablet ??? galcanezumab-gnlm (Emgality Pen) 120 mg/mL pen injector ??? levocetirizine (XYZAL) 5 mg tablet ??? levonorgestreL (KYLEENA) IUD ??? predniSONE (DELTASONE) 10 mg tablet ??? SUMAtriptan (IMITREX) 50 mg tablet ??? triamcinolone (KENALOG) 0.1 % cream Review of Systems Review of Systems Constitutional: Negative for chills and fever. HENT: Negative for ear pain and sore throat. Eyes: Negative for pain and visual disturbance. Respiratory: Negative for cough and shortness of breath. Cardiovascular: Negative for chest pain and palpitations. Gastrointestinal: Negative for abdominal pain and vomiting. Genitourinary: Negative for dysuria and hematuria. Musculoskeletal: Positive for joint swelling (L ankle, lateral). Negative for arthralgias and back pain. Skin: Negative for color change and rash. Neurological: Negative for seizures and syncope. All other systems reviewed and are negative. All systems reviewed and are neg or non contributory for this patients presentation today other than as stated in the HPI . Physical Exam ED Triage Vitals [09/26/21 1145] Temp Pulse Resp BP SpO2 37.2 ??C (99 ??F) 67 22 122/71 97 % Temp src Heart Rate Source Patient Position BP Location FiO2 (%) Oral Monitor Sitting Right arm -- Height Height Method Weight Weight Method -- -- 122.9 kg (270 lb 15.1 oz) Standing scale Physical Exam Vitals and nursing note reviewed. Constitutional: General: She is not in acute distress. Appearance: Normal appearance. She is well-developed. She is not ill-appearing. HENT: Head: Normocephalic and atraumatic. Right Ear: [...] respiratory distress. Breath sounds: Normal breath sounds. Musculoskeletal: General: Swelling, tenderness and signs of injury present. Cervical back: Neck supple. Comments: Minimal to L lateral ankle, TTP. Ambulatory with walking boot Skin: General: Skin is warm and dry. Neurological: Mental Status: She is alert and oriented to person, place, and time. Procedures MDM Labs Reviewed POCT HCG, URINE - Normal Result Value HCG, ur, POC Negative Lot Number [id number] QC Backgroud Clear Acceptable QC Control Line Acceptable XR Foot Left 3 or More Views Final Result XR Ankle Left 3 or More Views Final Result BP 122/71 (BP Location: Right arm, Patient Position: Sitting) Pulse 67 Temp 37.2 ??C (99 ??F) (Oral) Resp 22 Wt 122.9 kg (270 lb 15.1 oz) LMP 09/19/2021 (Exact Date) SpO2 97% BMI 42.44 kg/m?? MDM This examination was transcribed using the [employer] voice recognition system without human biomass power plant manager. In an effort to expedite patient care, this report has not been adjusted for typographical, grammatical, and syntax by a trained durable medical equipment technician. Close outpatient follow-up with a low threshold to return has been mandated , concerning symptoms have been emphasized in detail, and this patient expresses understanding Clinical Impression: Sprain of left ankle, unspecified ligament, initial encounter Lilian Phan PA 09/27/21 1125 Cosigned by Gio Treadwell MD at 10/16/2021 4:19 PM CDT Associated attestation - Gio Treadwell MD - 10/16/2021 4:19 PM CDT ED Attestation This patient was independently evaluated by the APC. I was available for immediate consultation andin-person evaluation if required but was not asked to do so. * Bladomero Melchor RN - 09/26/2021 11:51 AM CDT Arrived to ED for left ankle pain. Pt states she experienced a fall today around 10am and noticed swelling in ankle with movement of foot of toes. Pt has hardware in foot from past injuries. Denies LOC/dizziness documented in this encounter Plan of Treatment [...] Priority Date/Time Associated Diagnosis Comments XR FOOT LEFT 3 OR MORE VIEWS ED 09/26/2021 12:40 PM CDT XR ANKLE LEFT 3 OR MORE VIEWS ED 09/26/2021 12:38 PM CDT POCT HCG, URINE Routine 09/26/2021 12:07 PM CDT documented in this encounter Results * XR Foot Left 3 or More Views (09/26/2021 12:40 PM CDT) Anatomical Region Laterality Modality Lower Extremities, Foot Left Computed Radiography 09/26/2021 12:5 4 PM CDT Narrative 09/26/2021 12:56 PM CDT EXAM DESCRIPTION: ?? XR FOOT LEFT 3 OR MORE VIEWS REASON FOR STUDY: ?? pain ?? Fell/stepped hard onto L foot today, mainly lateral, some medial ankle pain since. Pt states pain shoots down lateral side of left foot as well. Previous bunion surgeries. ?? TECHNIQUE: ?? AP, lateral and oblique ??radiographic views acquired of the left foot. COMPARISON: ?? Comparison 10/05/2020. FINDINGS: BONES/JOINTS: ?? No acute fracture, malalignment or osseous abnormalities. ?? Joint spaces are maintained. SOFT TISSUES: ?? Unremarkable. OTHER: ?? Stable fusion hardware at the base of the 1st and 2nd tarsometatarsal joint. IMPRESSION: ?? No acute osseous abnormality. THIS IS AN ELECTRONICALLY VERIFIED FINAL REPORT 09/26/2021 12:56 PM - Electronically signed by ??Brenna HODGES D: ??09/26/2021 12:56 PM T: Report ID: [id number] Reading Location: ??[id number] Procedure Note Tawny Adams MD - 09/26/2021 EXAM DESCRIPTION: XR FOOT LEFT 3 OR MORE VIEWS REASON FOR STUDY: pain Fell/stepped hard onto L foot today, mainly lateral, some medial anklepain since. Pt states pain shoots down lateral side of left foot as well.Previous bunion surgeries. TECHNIQUE: AP, lateral and oblique radiographic views acquired of theleft foot. COMPARISON: Comparison 10/05/2020. FINDINGS: BONES/JOINTS: No acute fracture, malalignment or osseous abnormalities. Joint spaces are maintained. SOFT TISSUES: Unremarkable. OTHER: Stable fusion hardware at the base of the 1st and 2ndtarsometatarsal joint. IMPRESSION: No acute osseous abnormality. THIS IS AN ELECTRONICALLY VERIFIED FINAL REPORT 09/26/2021 12:56 PM - Electronically signed by Brenna HODGES T: Report ID: [id number] Reading Location: [id number] IMG XR PROCEDURES Final Resul t * XR Ankle Left 3 or More Views (09/26/2021 12:38 PM CDT) Anatomical Region Laterality Modality Lower Extremities, Ankle Left Compute d Radiography 09/26/2021 12:4 9 PM CDT Narrative 09/26/2021 12:53 PM CDT EXAM DESCRIPTION: ?XR ANKLE LEFT 3 OR MORE VIEWS REASON FOR STUDY: ?? pain ?? Fell/stepped hard onto L foot today, pain since. Lateral ankle pain and swelling, some medial ankle pain. Pain shoots down lateral side of L foot. Previous bunion surgeries. ?? TECHNIQUE: ?? AP, lateral, and oblique ??radiographic views acquired of the left ankle. COMPARISON: ?? Comparison ankle films from 10/05/2020. FINDINGS: BONES/JOINTS: ?? No acute fracture, malalignment or osseous abnormalities. ?? Joint spaces are maintained. SOFT TISSUES: ?? Lateral soft tissue swelling. OTHER: ?? Fusion hardware at the base of the 1st and 2nd carpometacarpal region. ??Calcaneal enthesophytes. IMPRESSION: ?? No acute osseous abnormality. ??Previous stable fusion hardware at the base of the 1st and 2nd tarsometatarsal joint. THIS IS AN ELECTRONICALLY VERIFIED FINAL REPORT 09/26/2021 12:53 PM - Electronically signed by ??Brenna HODGES D: ??09/26/2021 12:53 PM T: Report ID: [id number] Reading Location: ??[id number] Procedure Note Tawny Adams MD - 09/26/2021 EXAM DESCRIPTION: XR ANKLE LEFT 3 OR MORE VIEWS REASON FOR STUDY: pain Fell/stepped hard onto L foot today, pain since. Lateral ankle pain and swelling, some medial ankle pain. Pain shoots down lateral side of L foot. Previous bunion surgeries. TECHNIQUE: AP, lateral, and oblique radiographic views acquired of theleft ankle. COMPARISON: Comparison ankle films from 10/05/2020. FINDINGS: BONES/JOINTS: No acute fracture, malalignment or osseous abnormalities. Joint spaces are maintained. SOFT TISSUES: Lateral soft tissue swelling. OTHER: Fusion hardware at the base of the 1st and 2nd carpometacarpal region. Calcaneal enthesophytes. IMPRESSION: No acute osseous abnormality. Previous stable fusionhardware at the base of the 1st and 2nd tarsometatarsal joint. THIS IS AN ELECTRONICALLY VERIFIED FINAL REPORT 09/26/2021 12:53 PM - Electronically signed by Brenna Adams M.D. LC T: Report ID: [id number] Reading Location: [id number] Lilian [facility] IMG XR PROCEDURES Final Resul t * POCT hCG, urine (09/26/2021 12:07 PM CDT) HCG, ur, POC Negative Lot Number [id number] QC Backgroud Clear Acceptable QC Control Line Acceptable Urine 09/26/2021 12:0 7 PM CDT Lilian MOJICA POINT OF CARE TEST ORDERABLES Final Result documented in this encounter Visit Diagnoses Diagnosis Sprain of left ankle, unspecified ligament, initial encounter- Primary documented in this encounter Care Teams Polysomnograph Tech Relationship Specialty Start Date End Date Daily rCuz MD PCP - General Family Medicine 03/04/21 documented as of this encounter
--- OUTSIDE RECORDS SUMMARY | 2024-02-21 19:37 | XMS_ITS | Encounter Summary ---
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 Gender Identity Female 03/02/2020 4:27 PM CRANBERRY BOG SUPERVISOR Sexual Orientation Straight 07/10/2019 11 :13 PM CDT documented as of this encounter Last Filed Vital Signs Vital Sign Reading Time Taken Comments Blood Pressure 158/94 07/23/2021 1:48 PM CDT Pulse 85 07/23/2021 1:48 PM CDT Temperature 36.7 ??C (98 ??F) 07/23/2021 1:48 PM CDT Respiratory Rate 22 07/23/2021 1:48 PM CDT Oxygen Saturation 98% 07/23/2021 3:06 PM CDT Inhaled Oxygen Concentration - - Weight 115.7 kg (255 lb) 07/23/2021 1:48 PM CDT Height 170.2 cm (5' 7 ) 07/23/2021 1:48 PM CDT Body Mass Index 39.94 07/23/2021 1:48 PM CDT documented in this encounter Discharge Instructions * Discharge Instructions* Baljit Matthews PA - 07/23/2021 4:33 PM CDT As discussed, your chest x-ray was normal today. COVID/flu tests were also negative. Please continue the treatment at home. Follow-up as recommended is mandatory. You have [...] cannot be sent through Care Everywhere. * Wheezing (AfterCare(R) Instructions(ER/ED)) (Liberian) documented in this encounter Medications at Time of Discharge azithromycin (ZITHROMAX) 250 mg tabletIndications :Acute bronchitis due to other specified organisms Take 2 tabs (500 mg) by mouth today, than 1 daily for 4 days. 6 tablet 07/20/2021 2 benzonatate (TESSALON) 100 mg capsuleIndication s:Cough Take 1 capsule (100 mg total) by mouth 3 (three) times a day as needed for cough 42 capsule 07/20/2021 2 acetaminophen (TYLENOL) 500 mg tablet Take 1,000 [...] needed for wheezing 1 each 07/20/2021 2 budesonide-formot Erica (SYMBICORT) 160-4.5 mcg/actuation inhalerIndication s:Acute [...] TABLET BY MOUTH EVERY DAY 30 tablet 07/21/2021 2 galcanezumab-gnlm (Emgality Pen) 120 mg/mL pen [...] AFTER 2 HOURS 9 tablet 09/18/2020 2 tamsulosin (FLOMAX) 0.4 mg extended release capsule Take 1 capsule (0.4 mg total) by mouth daily for 14 days 14 capsule 06/19/2021 2 triamcinolone (KENALOG) 0.1 % creamIndications: Allergic [...] needed for wheezing 75 mL 07/23/2021 3 documented in this encounter Discharge Disposition Disposition Code Departure Means Destination Discharge to home or self care documented in this encounter ED Notes * Baljit Matthews PA - 07/23/2021 2:15 PM CDT HPI Chief Complaint Patient presents with ??? Congestion ??? Cough HPI 5:15 PM Jud Leung is a 30 y.o. female presenting to the ED with c/c of cough x 3 weeks. States initially productive, now non-productive. Saw PCP two weeks ago, diagnosed with bronchitis, and placed on steroids (finished one week ago) and currently on Z-pack and using tesselon pearles, albuterol, and symbicort without improvement. States starting 2-3 days ago, had low-grade fever (100.6) and chills today as well. No vomiting, diarrhea, or other illness. Fully COVID-vaccinated. Patient History: Past Medical History: Diagnosis Date [...] with neuro ??? Irritability ??? 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 Kidney stone 2019 ??? Low back [...] Never Smoker ??? Smokeless tobacco: Never Used Vaping Use ??? Vaping Use: Never used Substance Use Topics ??? Alcohol use: Not Currently Alcohol/week: 0.0 standard drinks Comment: Maybe a drink every few months ??? Drug use: Yes Types: Alcohol Comment: ~3 drinks/month No current facility-administered medications for this encounter. Current Outpatient Medications: ??? acetaminophen (TYLENOL) 500 mg tablet ??? albuterol 2.5 mg /3 mL (0.083 %) nebulizer solution ??? albuterol HFA (PROVENTIL HFA,VENTOLIN HFA,PROAIR HFA) 90 mcg/actuation inhaler ??? azithromycin (ZITHROMAX) 250 mg tablet ??? benzonatate (TESSALON) 100 mg capsule ??? budesonide-formoteroL (SYMBICORT) 160-4.5 mcg/actuation inhaler ??? fluticasone propionate (FLONASE) 50 mcg/actuation nasal spray ??? furosemide (LASIX) 20 mg tablet ??? galcanezumab-gnlm (Emgality Pen) 120 mg/mL pen injector ??? levocetirizine (XYZAL) 5 mg tablet ??? levonorgestreL (KYLEENA) IUD ??? SUMAtriptan (IMITREX) 50 mg tablet ??? tamsulosin (FLOMAX) 0.4 mg extended release capsule ??? triamcinolone (KENALOG) 0.1 % cream Review of Systems Review of Systems Constitutional: Positive for chills and fever. HENT: Negative for congestion. Eyes: Negative for redness. Respiratory: Positive for cough. Cardiovascular: Negative for chest pain. Gastrointestinal: Negative for abdominal pain, diarrhea and vomiting. Genitourinary: Negative for dysuria. Musculoskeletal: Negative for myalgias. Neurological: Negative for weakness. Psychiatric/Behavioral: Negative for confusion. Physical Exam ED Triage Vitals [07/23/21 1348] Temp Pulse Resp BP SpO2 36.7 ??C (98 ??F) 85 22 158/94 97 % Temp src Heart Rate Source Patient Position BP Location FiO2 (%) Oral Pulse Oximetry Sitting Right arm -- Height Height Method Weight Weight Method 1.702 m (5' 7 ) Stated 115.7 kg (255 lb) Stated Physical Exam Vitals and nursing note reviewed. Constitutional: General: She is not in acute distress. Appearance: Normal appearance. She is not ill-appearing or toxic-appearing. HENT: Head: Normocephalic and atraumatic. Right Ear: External ear normal. Left Ear: External ear normal. Nose: Nose normal. Mouth/Throat: Mouth: Mucous membranes are moist. Eyes: Extraocular Movements: Extraocular movements intact. Pupils: Pupils are equal, round, and reactive to light. Cardiovascular: Rate and Rhythm: Normal rate and regular rhythm. Heart sounds: Normal heart sounds. No murmur heard. No friction rub. No gallop. Pulmonary: Effort: Pulmonary effort is normal. Breath sounds: Wheezing (mild inspiratory wheeze) present. Abdominal: General: Bowel sounds are normal. There is no distension. Palpations: Abdomen is soft. There is no mass. Tenderness: There is no abdominal tenderness. There is no guarding. Musculoskeletal: General: No deformity. Normal range of motion. Skin: General: Skin is warm and dry. Capillary Refill: Capillary refill takes less than 2 seconds. Neurological: General: No focal deficit present. Mental Status: She is alert and oriented to person, place, and time. Psychiatric: Mood and Affect: Mood normal. Procedures MDM Labs Reviewed POCT HCG, URINE - Normal Result Value HCG, ur, POC Negative Lot Number [id number] QC Backgroud Clear Acceptable QC Control Line Acceptable INFLUENZA A/B, RSV, AND COVID-19 PCR COVID-19 RNA Negative Influenza A RNA Negative Influenza B RNA Negative RSV RNA Negative Narrative: Is the Patient experiencing symptoms consistent with COVID?->Yes Date of Symptom Onset->07/21/21 Reason for testing?->Symptomatic XR Chest 1 Vw portable Final Result BP 158/94 (BP Location: Right arm, Patient Position: Sitting) Pulse 85 Temp 36.7 ??C (98 ??F) (Oral) Resp 22 Ht 170.2 cm (5' 7 ) Wt 115.7 kg (255 lb) SpO2 98% BMI 39.94 kg/m?? ED Course: 1913 Wheezing improved with neb treatment. Pt recently completed high-dose steroids by PCP as well.To continue treatment at home. Rx for nebulizer and neb solution provided. Pt had no further questions. Clinical Impression: Viral illness Wheezing Baljit Matthews PA 07/23/21 1715 Cosigned by Miguel Wray II, MD at 07/23/2021 7:30 PM CDT * Gretel Morel RN - 07/23/2021 2:09 PM CDT Patient arrives with c/o productive cough, SOB, headache, sinus congestion, and chills x 3 weeks. Reports chronic bronchitis as a child and reactive airway disease. Had covid pneumonia in 2019. Denies inhalers and prednisone improving symptoms. Finished Prednisone last week. Up to date on immunizations. documented in this encounter Plan of Treatment [...] Diagnosis Comments XR CHEST 1 VIEW ED 07/23/2021 4:08 PM CDT POCT HCG, URINE Routine 07/23/2021 3:26 PM CDT INFLUENZA A/B, RSV, AND COVID-19 PCR Routine 07/23/2021 2:16 PM CDT documented in this encounter Results * XR Chest 1 Vw portable (07/23/2021 4:08 PM CDT) Anatomical Region Laterality Modality Body, Chest N/A Computed Radiogr aphy 07/23/2021 4:15 PM CDT Narrative 07/23/2021 4:15 PM CDT EXAM DESCRIPTION: ?? XR CHEST 1 VIEW REASON FOR STUDY: ?? cough ?? Patient arrives with c/o productive cough, SOB, headache, sinus congestion, and chills x 3 week ?? TECHNIQUE: ?? One ??radiographic view of the chest acquired. COMPARISON: ?? 07/12/2019 FINDINGS: LUNGS/PLEURA: ?? No focal consolidation or pneumothorax. No pleural effusion. HEART/MEDIASTINUM: ?? Heart size is normal. Normal mediastinal and hilar contours. HARDWARE/LINES/TUBES: ?? None. BONES: ?? No acute findings. OTHER: ?? No other significant finding. IMPRESSION: ?? 1. ?? No acute disease. THIS IS AN ELECTRONICALLY VERIFIED FINAL REPORT 07/23/2021 4:15 PM - Electronically signed by ??Raimundo Will M.D. D: ??07/23/2021 4:15 PM T: Report ID: [id number] Reading Location: ??[id number] Procedure Note Raimundo Will MD - 07/23/2021 EXAM DESCRIPTION: XR CHEST 1 VIEW REASON FOR STUDY: cough Patient arrives with c/o productive cough, SOB, headache, sinuscongestion, and chills x 3 week TECHNIQUE: One radiographic view of the chest acquired. COMPARISON: 07/12/2019 FINDINGS: LUNGS/PLEURA: No focal consolidation or pneumothorax. Nopleural effusion. HEART/MEDIASTINUM: Heart size is normal. Normal mediastinal and hilar contours. HARDWARE/LINES/TUBES: None. BONES: No acute findings. OTHER: No other significant finding. IMPRESSION: 1. No acute disease. THIS IS AN ELECTRONICALLY VERIFIED FINAL REPORT 07/23/2021 4:15 PM - Electronically signed by Raimundo Will M.D. SS T: Report ID: [id number] Reading Location: [id number] Baljit MOJICA IMG XR PROCEDURES Final R esult * POCT hCG, urine (07/23/2021 3:26 PM CDT) Pathologist [facility] HCG, ur, POC Negative Lot Number [id number] QC Backgroud Clear Acceptable QC Control Line Acceptable Urine 07/23/2021 3:26 PM CDT Baljit MOJICA POINT OF CARE TEST ORDERA BLES Final Result * Influenza A/B, RSV, and COVID-19 PCR Nasopharyngeal (07/23/2021 2:16 PM CDT) [facility] COVID-19 RNA Negative Negative [facility] Influenza A RNA Negative Negative [facility] Influenza B RNA Negative Negative [facility] RSV RNA Negative Negative [facility] Comment: Interpretive data: This test is performed using the [employer] Xpert Xpress CoV-2/Flu/RSV plus assay. This is [...] infection. Interpretive Data last revised 2021. Nasopharyngeal 07/23/2021 2: 16 PM CDT 07/23/2021 2:18 PM CDT Narrative [facility] - 07/23/2021 2:58 PM CDT Is the Patient experiencing symptoms consistent with COVID?->Yes Date of Symptom Onset->07/21/21 Reason for testing?->Symptomatic Baljit MOJICA LAB MICROBIOLOGY - GENERA L ORDERABLES Final Result ANGELICA [address] [facility] [place] [address] documented in this encounter Visit Diagnoses Diagnosis Viral illness- Primary Unspecified viral infection, in conditions classified elsewhere and of unspecified site Wheezing documented in this encounter Administered Medications Inactive Administered Medications - up to 3 most recent administrations Medication Order MAR Action Action Date Dose Rate Site ipratropium-albuteroL (DUO-NEB) 0.5-2.5 mg/3 mL nebulizer solution 3 mL 3 mL, nebulization, Once, On Mon07/23/21 at 1416, For 1 dose, Indications: Chronic Obstructive Pulmonary Disease with BronchospasmsIndications:Chronic Obstructive Pulmonary Disease with Bronchospasms Given 07/23/2021 3:06 PM CDT 3 mL predniSONE (DELTASONE) tablet 60 mg 60 mg, oral, Once, On Mon07/23/21 at 1416, For 1 dose Given 07/23/2021 4:37 PM CDT 60 mg documented in this encounter Active and Recently Administered Medications Times are shown in CDT. Scheduled Medication Order 07/21/2021 07/22/2021 07/23/2021 ipratropium-albuteroL (DUO-NEB) 0.5-2.5 mg/3 mL nebulizer solution 3 mL (COMPLETED) 3 mL, nebulization, Once, On Mon07/23/21 at 1416, For 1 dose, Indications: Chronic Obstructive Pulmonary Disease with Bronchospasms 1506 (Given - Provid er: Kirsty Kaiser RRT) predniSONE (DELTASONE) tablet 60 mg (COMPLETED) 60 mg, oral, Once, On Mon07/23/21 at 1416, For 1 dose 1637 (Given - Provid er: Milagros French RN) documented in this encounter Additional Health Concerns Infection Onset Date Last Indicated Resolved Time COVID: Suspected 07/23/2021 07/23/2021 07/23/2021 2:59 PM CDT documented as of this encounter Care Teams Maintenance Director Relationship Specialty Start Date End Date Daily Cruz MD PCP - General Family Medicine 03/04/21 documented as of this encounter
--- OUTSIDE RECORDS SUMMARY | 2024-02-21 19:37 | XMS_ITS | Encounter Summary ---
Author Organization [facility] Address [address] [facility] [address] [place] [address] Care Team Providers Care Senior Finance Manager Name Role Phone Daily Cruz MD Primary Care Provider [phone] Reason for Visit * Reason Onset Date Comments Authorization/Certification 11/15/2021 Encounter Details Date Type Department Care Team (Late st Contact Info) Description 11/15/[address] 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 Need auth for primary insurance , [facility]. Protocol normally is to reschedule until auth is obtained. Is it ok with provider to do this? Pleasecall her back. Sending HP Caller???s Call back #: [phone], opt 3 Does message need to be routed?Yes-Action Needed [...] filedocumented in this encounter Care Teams Senior Finance Manager Relationship Specialty Start Date End Date Daily Cruz MD PCP - General Family Medicine 03/04/21 documented as of this encounter
--- OUTSIDE RECORDS SUMMARY | 2024-02-21 19:37 | XMS_ITS | Encounter Summary ---
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 DIFFICILE TESTING Routine 12/15/2021 8:03 AM CDT Diarrhea, unspecified type OVA AND PARASITE EXAMINATION Routine 12/15/2021 8:03 AM CDT Diarrhea, unspecified type CRYPTOSPORIDIUM AND GIARDIA ANTIGEN ASSAY Routine 12/15/2021 8:03 AM CDT Diarrhea, unspecified type STOOL CULTURE Routine 12/15/2021 8:03 AM CDT Diarrhea, unspecified type HC GLIADIN ANTIBODY EACH IMMUNOGLOBULIN CLASS Routine 12/15/2021 7:45 AM CDT Diarrhea, unspecified type GLIADIN ANTIBODY, IGA Routine 12/15/2021 7:45 AM CDT Diarrhea, unspecified type TISSUE TRANSGLUTAMINASE, IGA Routine 12/15/2021 7:45 AM CDT Diarrhea, unspecified type LIPASE Routine 12/15/2021 7:45 AM CDT RLQ abdominal pain documented in this encounter Results * Stool culture Stool Rectum (12/15/2021 8:03 AM CDT) Direct Specimen Exam Shiga Toxin Testing: Antigen detection assay for Shiga-toxin NEGATIVE for Shiga Toxin 1 and Shiga Toxin 2. ANGELICA VERDUGO Comment:Testing performed by : [facility], [address] [facility], [place]., [address] Report Final Report: No growth of enteric bacterial pathogens ANGELICA VERDUGO Comment:Testing performed by : [facility], [address] [place]., [address] Stool (Rectum) 12/15/2021 8: 03 AM CDT 12/15/2021 10:37 AM CDT Narrative ANGELICA VERDUGO - 12/19/2021 9:31 AM MAT MAKER Testing performed by [facility] ([phone]). Routine stool cultures include procedures to detect Salmonella, Shigella, Edwardsiella, Aeromonas, Pleisiomonas, Campylobacter, Yersinia, E. coli O157, and Shiga-like toxins. ?? Vibrio is cultured only upon special request. ??If Vibrio is suspected, please call the laboratory at [phone]. Interpretive data was last updated June 20, 2016. Jeffrey Fleming MD LAB MICROBIOLOGY - GENERAL ORDER JOSE Final Result Performing Organization Address [facility] de Phone Number [place] [phone] [facility] [place] [address] * Ova and parasite examination Stool (12/15/2021 8:03 AM CDT) Report Final Report: No parasites detected. Note: treatment with antibiotics; e.g., Clindamycin, Metronidazole , Tetracycline, and Trimethoprim- sulfa can adversely affect the detection of ova and parasites. Test performed by [facility], [address] [place] [address], [id number]. ANGELICA VERDUGO Comment:Testing performed by : [facility], [address] [place]., [address] Stool 12/15/2021 8:03 AM CDT 12/15/2021 10:39 AM CDT Narrative ANGELICA VERDUGO - 12/20/2021 2:17 PM MAT MAKER Received in PVA and Formalin. Jeffrey Fleming MD LAB MICROBIOLOGY - GENERAL ORDER JOSE Final Result Performing Organization Address [facility] Co de Phone Number [place] [phone] [facility] [address] [place], [place] [id number] * Cryptosporidium and giardia antigen assay Stool (12/15/2021 8:03 AM CDT) Report Final Report: Negative for Giardia lamblia antigen Negative for Cryptosporidium antigen ANGELICA Comment:Testing performed by : [facility], [address] [place]., [address] Organism NEGATIVE FOR GIARDIA LAMBLIA ANTIGEN [facility] Organism NEGATIVE FOR CRYPTOSPORIDIUM ANTIGEN [facility] Stool 12/15/2021 8:03 AM CDT 12/15/2021 10:37 AM CDT Narrative [facility] - 12/16/2021 8:21 AM CDT Received in PVA and Formalin. Interpretive data: Testing performed by the [facility] Laboratory using an immunoassay that detects Cryptosporidium and Giardia antigens in stool specimens. If comprehensive examination for ova and parasites is required, please request Ova and Parasite Examination . Current interpretative data was revised March 2020. Jeffrey Fleming MD LAB MICROBIOLOGY - GENERAL ORDER JOSE Final Result Performing Organization Address [facility] Co de Phone Number [place] [phone] [facility] [place] [address] * C. difficile testing Stool (12/15/2021 8:03 AM CDT) C. diff result Negative, DNA Negative , DNA [facility] C. diff interp Negative for toxigenic Clostridioides (Clostridium) difficile. ??Analysis performed by detection of gene(s) encoding C. difficile toxin(s). ??The nucleic acid detection assay used is cleared by the [place] Food and Drug administration and its performance characteristics have been verified by the performing laboratory. ANGELICA Stool 12/15/2021 8:03 AM CDT 12/15/2021 9:57 AM CDT Jeffrey Fleming MD LAB MICROBIOLOGY - GENERAL ORDER JOSE Final Result Performing Organization Address [facility] Co de Phone Number [address] [place] [address] * Gliadin antibody, IgA (12/15/2021 7:45 AM CDT) Anti-gliadin, IgA <0.5 <=14.9 units/mL ANGELICA Comment: Interpretive data Negative: <15 units/mL Positive: > or equal to 15 units/mL Current interpretive data was last revised on 2016. Testing performed by: [facility], [address] [place] [address]., [id number] Blood 12/15/2021 7:45 AM CDT 12/15/2021 11:07 AM CDT Jeffrey Fleming MD LAB BLOOD ORDERABLES Final Resul t Performing Organization Address [facility] Co de Phone Number [address] [place] [address] * Tissue transglutaminase IgA (TGG-IgA Ab) (12/15/2021 7:45 AM CDT) TTG ab, IgA <0.5 <=14.9 units/mL ANGELICA Comment: Interpretive data Negative: <15 units/mL Positive: > or equal to 15 units/mL Current interpretive data was last revised on 2016. Testing performed by: [facility], [address] [place] [address]., [id number] Blood 12/15/2021 7:45 AM CDT 12/15/2021 11:07 AM CDT Jeffrey Fleming MD LAB BLOOD ORDERABLES Final Resul t Performing Organization Address City/[facility] Co de Phone Number [address] [place] [address] * Lipase (12/15/2021 7:45 AM CDT) Lipase 23 10 - 99 Units/L ANGELICA Blood 12/15/2021 7:45 AM CDT 12/15/2021 7:56 AM CDT us Jeffrey Fleming MD LAB BLOOD ORDERABLES Final Resul t ANGELICA [address] [facility] [place] [address] documented in this encounter Visit Diagnoses Diagnosis RLQ abdominal pain Abdominal pain, right lower quadrant Diarrhea, unspecified type documented in this encounter Care Teams Hydrochloric Manufacturing Supervisor Relationship Specialty Start Date End Date Daily Cruz MD PCP - General Family Medicine 03/04/21 documented as of this encounter
--- OUTSIDE RECORDS SUMMARY | 2024-02-21 19:37 | XMS_ITS | Encounter Summary ---
Author Organization [facility] Address [address] [place] [address] Care Team Providers Care Rcis Name Role Phone Daily Cruz MD Primary Care Provider [phone] [phone] Reason for Visit * Reason Onset Date Comments Rash 09/22/2021 Headache 09/22/2021 Sinus Problem 09/22/2021 Encounter Details Date Type Department Care Team (Late st Contact Info) Description 09/22/2021 Nurse Triage [facility] Family Medicine at [place] [address] [place] [address] Starr Baird RN Social History Tobacco Use Types Packs/Day [...] on file Legal Sex Female 3:37 PM ETHICS OFFICER Gender Identity Female 03/02/2020 4:27 PM ETHICS OFFICER Sexual Orientation Straight 07/10/2019 11 :13 PM CDT documented as of this encounter Miscellaneous Notes * Telephone Encounter - Kylah Tejada - 09/23/2021 6:58 AM CDT Advised to let us know if sinus symptoms don't resolve, we will get her scheduled with provider. * Telephone Encounter - Kylah Tejada - 09/23/2021 6:54 AM CDT MyChart message sent to patient, she needs to contact her dermatologists at . * Telephone Encounter - Starr Baird RN - 09/22/2021 5:53 PM CDT Hyperthyroidism, acute chronic maxillary sinusitis, herpes zoster, pustular rash, ADD anxiety and depression Bipolar !!, chronic pain, reactive airwary disease Last Ov 06/16/2021 Reports has had the same issue realated to mold spores in classroom back in June of this year. Started in classroom and touched something and broke out in rash on arms immediately took Benadryl and washed arms and resolved. Also today while in classroom started having dry cough, sore irritated throat, swelling around eyesand cheeks, eyes are itching sinus headache.Lymph nodes below ears feel swollen Denies fever, covid exposure, earache, difficulty breathing, Reports has no insurance coverage to go to [facility] or [facility] as won't take the state plan that has and can't afford it. Instructed on how to do Virtual visit tonight on MYChart Instructed to sleep with head of bed elevated, humidifier in room, drink plenty of fluids, warm fluids, cough drops Mucenix OTC to loosen secretions,Benadryl or Claritin for rashes, gargle with warm salt water 4 times a day. Wear mask in classroom. If becomes worst to call back. Verbalized understanding and will follow Reason for Disposition ??? [1] Redness or swelling on the cheek, forehead or around the eye AND [2] no fever Protocols used: SINUS PAIN OR [id number] * Telephone Encounter - Starr Baird RN - 09/22/2021 5:39 PM CDT Regarding: Rash, Headache, Throat irritation, Facial-Sinus Pressure ----- Message from Sapphire Rogers sent at 09/22/2021 5:25 PM CDT ----- Call Back Caller???s Concern: Pt returning missed phone call. Advised nurse will cb shortly. She said she will wait by the phone. Caller???s Call back #: [phone] Does message need to be routed? Yes-Action Needed * Telephone Encounter - Alley Gilliam RN - 09/22/2021 4:56 PM CDT Regarding: Rash, Headache, Throat irritation, Facial-Sinus Pressure ----- Message from Sanchez Mann MA sent at 09/22/2021 4:14 PM CDT ----- Symptom Based Call Chief Complaint: Rash, Headache, Throat irritation, Facial-Sinus Pressure Did you review 911/Red Flag List?Yes Duration: This past week Why was appointment not scheduled? 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 Patient says the rash, headache, sore throat happened last year at the school as well and it is due from the water damage and mold spores.Patient says she has been well all summer and she has auto immune issues. Does message need to be routed? Yes-Action Needed Symptoms:(!) Yes (Headache and Sore Throat) (09/22/2021 4:05 PM)Exposure: No (09/22/2021 4:05 PM)Positive COVID-19 test within the last 10 days:No (09/22/2021 4:05 PM) documented in this encounter Plan of Treatment [...] on filedocumented in this encounter Care Teams Rcis Relationship Specialty Start Date End Date Daily Cruz MD PCP - General Family Medicine 03/04/21 documented as of this encounter
--- OUTSIDE RECORDS SUMMARY | 2024-02-21 19:37 | XMS_ITS | Encounter Summary ---
Author Organization [facility] Address [address] [place] [address] Care Team Providers Care Associate Field Service Engineer Name Role Phone Daily Cruz MD Primary Care Provider [phone] [phone] Encounter Details Date Type Department Care Team (Late st Contact Info) Description 05/26/2022 Telephone [facility] Family Medicine at [place] [address] [place] [address] [address] [place] [address] Daily Cruz MD [address] [place] [address] [address] [place] [address] Social History Tobacco Use Types [...] on file Legal Sex 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 Gender Identity Female 03/02/2020 4:27 PM DRAMA DIRECTOR Sexual Orientation Straight 07/10/2019 11 :13 PM CDT documented as of this encounter Miscellaneous Notes * Telephone Encounter - Jud Garrison - 05/26/2022 12:04 PM CDT Medical Question/Miscellaneous Caller???s Concern: Patient wanting to have same day appointment instead of going to ed/urgent care Caller???s Call back #: [phone] Does message need to be routed?No documented [...] on filedocumented in this encounter Care Teams Associate Field Service Engineer Relationship Specialty Start Date End Date Daily Cruz MD PCP - General Family Medicine 03/04/21 documented as of this encounter
--- OUTSIDE RECORDS SUMMARY | 2024-02-21 19:37 | XMS_ITS | Encounter Summary ---
Author Organization [facility] Address [address] [place] [address] Phone Care Team Providers Care Travelers' Aid Worker Name Role Phone Daily Cruz MD Primary Care Provider [phone] [phone] Reason for Visit * Reason Onset Date Comments Reaction to face oil 03/02/2022 Encounter Details Date Type Department Care Team (Late st Contact Info) Description 03/02/2022 Telephone [facility] Allergy and Immunology [address] [place] [address] Jacquelyn Collier RN [address] [place] [address] Reaction to face oil Social History Tobacco Use Types Packs/Day Years [...] on file Legal Sex Female 3:37 PM MEDICAL DETAIL REPRESENTATIVE Gender Identity Female 03/02/2020 4:27 PM MEDICAL DETAIL REPRESENTATIVE Sexual Orientation Straight 07/10/2019 11 :13 PM CDT documented as of this encounter Miscellaneous Notes * Telephone Encounter - Jacquelyn Collier RN - 03/02/2022 10:53 AM MEDICAL DETAIL REPRESENTATIVE Jud called and stated she put some wax oil on her face last night and feels like she having a reaction due to eyes burning, itchy throat, face is swollen, rash on face, lips feel 'weird' tongue feels like it has a film over it. Her call back [phone]. Advised Jud to seek Urgent Care or ED if she feels she has tightness or swelling of the throat. She agreed to a 2PM appointment with Rudolph Yuan LEAD COATER today @ [facility]. CAL DETAIL REPRESENTATIVE documented in this encounter Plan of Treatment [...] on filedocumented in this encounter Care Teams Travelers' Aid Worker Relationship Specialty Start Date End Date Daily Cruz MD PCP - General Family Medicine 03/04/21 documented as of this encounter
--- OUTSIDE RECORDS SUMMARY | 2024-02-21 19:37 | XMS_ITS | Encounter Summary ---
Author Organization [facility] Address [address] [place] [address] Care Team Providers Care Photo Studio Assistant Name Role Phone Daily Cruz MD Primary Care Provider [phone] Reason for Visit * Reason Onset Date Comments Hypertension 03/29/2022 Encounter Details Date Type Department Care Team (Late st Contact Info) Description 03/29/2022 Nurse Triage [facility] Family Medicine at [place] [address] [place] [address] Daily Cruz MD [address] [place] [address] [address] [place] [address] Social History Tobacco Use Types [...] file Legal Sex Female 3:37 PM TRACTOR TRAILER MOVING VAN DRIVER Gender Identity Female 03/02/2020 4:27 PM TRACTOR TRAILER MOVING VAN DRIVER Sexual Orientation Straight 07/10/2019 11 :13 PM CDT documented as of this encounter Miscellaneous Notes * Telephone Encounter - Kassi Lopez RN - 03/29/2022 1:26 PM TRACTOR TRAILER MOVING VAN DRIVER [facility] Nurse Triage: Last office visit 12/22/21 Seen by allergiest last week. Patient woke up this morning and felt out of it or like I had been drinking . She had one shot of Tequilla on Monday and that is the last time she had any alcohol. She ate some noodles and went tosleep. Blood sugar was 110 this morning. BP was 178/98 about 1130. She is on lasix 40mg daily. She has been taking as prescribed. She has been having headaches and dizziness. Her fingers feel buzzed . People commenting that she looks flushed. She has significant familial hx of hypertension. She has been having blurred vision this morning and it felt like there was a film over her eyes, and one time today she felt like she was going to fall over as the room felt like it was spinning. PCP/ROLLS BAKER contacted via secure chat for ED disposition consult. Recommendation from provider:Proceed to ED I reviewed this with the patient. She agrees to go to the ED. Reason for Disposition Systolic BP >= 160 OR Diastolic >= 100, and any cardiac or neurologic symptoms (e.g., chest pain, difficulty breathing, unsteady gait, blurred vision) Protocols used: Blood Pressure - [id number] TOR TRAILER MOVING VAN DRIVER * Telephone Encounter - Kassi Lopez RN - 03/29/2022 1:13 PM TRACTOR TRAILER MOVING VAN DRIVER Regarding: dizziness, feeling like she could pass out, high bp concerns, nausea, head is pounding and feeling f ----- Message from Melvi Rodriguez sent at 03/29/2022 12:56 PM TRACTOR TRAILER MOVING VAN DRIVER ----- Symptom Based Call Chief Complaint: dizziness, feeling like she could pass out, high bp concerns, nausea, head is pounding and feeling fuzzy Did you review 911/Red Flag List?Yes Duration: since last night (one episode), but carried into this morning Why was appointment not scheduled? Red flag Caller's Callback #: [phone] Additional Comments: Patient's bp reading today is 178/90. Does message need to be routed? Yes-Action Needed TOR TRAILER MOVING VAN DRIVER documented in this encounter Plan of Treatment [...] on filedocumented in this encounter Care Teams Photo Studio Assistant Relationship Specialty Start Date End Date Daily Cruz MD PCP - General Family Medicine 03/04/21 documented as of this encounter
--- OUTSIDE RECORDS SUMMARY | 2024-02-21 19:37 | XMS_ITS | Encounter Summary ---
Author Organization [facility] Address [address] [place] [address] Phone Care Team Providers Care Media Arts Professor Name Role Phone Daily Cruz MD Primary Care Provider [phone] [phone] Reason for Visit * Reason Comments Suspicious Skin Lesion * Consultation (Routine) - Closed Specialty Diagnoses / Procedures Referred By Matt burk Referred To Contact Dermatology Diagnoses Allergic contact dermatitis, unspecified trigger Natasha Sandoval MD Phone: tel: fax: Natasha Sandoval MD [address] [place] [address] Phone: tel: fax: Referral ID Status Reason Start Date Expiration Date V isits Requested Visits Authorized [id number] Closed Specialty Services Required 06/29/2021 07/29/2022 99 99 Encounter Details Date Type Department Care Team (Late st Contact Info) Description 09/06/2021 9:45 AM CDT Office Visit 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 Subjective/Objective Patient ID: Jud Thomas is a 30 y.o. female. Chief Complaint Mole removal, spot check History of Present Illness 30 yo female with history of mole and ACD. [facility] 08/06/2021, during which she was found to have atypical nevus on upper back with plan for removal. Today: 1) Reports interest in removal of atypical nevus found on upper back at [facility]. 2) Reports concern for pruritic pink spot on left upper back. Reports that spot is occasionally tender and previously bled 6 months ago. She is interested in removal. 3) Reports concern for itchy spot on right lower back. PMSFHx: No personal history of skin cancer. No known family history of melanoma. Social history: Notobacco use, no sunscreen, no tanning anthony use Review of Systems Denies pruritus, easy bruising. Also denies fever, chills, night sweats, weight loss, weakness, lymphadenopathy. Denies any reason for immunocompromization - h/o cancer, chemotherapy, HIV, radiation therapy, bone-marrow transplant. Physical Exam Full exam: Gen and Cardio: Well-developed and well-nourished in no acute distress. Alert oriented and interacts appropriately. Normal conjunctiva. Normal skin sensation. No lower extremity edema. Derm: A full cutaneous exam was performed with close inspection and palpation where indicated and as allowed by the patient of the hair, scalp, face, lips, neck, chest, abdomen, buttock, back, right upper, left upper, right lower, left lower extremities, buttocks, hands, feet, nails and digits. Allskin examined was normal with exception of these notable exam findings: - Mid upper back with ill-defined [id number] brown macule with speckled, globular appearance under dermoscopy - Right upper back with 5mm x 5mm pink, soft papule - Left lower back with fleshy, brown pedunculated papule Assessment/Plan Neoplasm unspecified behavior - Uncertain Prognosis - Dx: R/o melanoma - Location: Mid upper back - Biopsy done per procedure note below. - Wound care reviewed with patient. - Follow-up per path. - Risks and benefits were discussed including, but not limited to, scarring, bleeding, infection, pain, and swelling. Atypical nevus - Right upper back nevus with atypical behavior (pruritus, tenderness, bleeding) - Discussed management options (observation vs shave removal) - Patient opted for shave removal - Biopsy done per procedure note below. - Wound care reviewed with patient. - Follow-up per path. - Risks and benefits were discussed including, but not limited to, scarring, bleeding, infection, pain, and swelling. ?? Multiple benign nevi - Patient reassured. ABCDE's and photoprotection were reviewed. Recommend monthly self-skin checks and MD skin check every year. PROCEDURE: Shave Biopsy x 2 DESCRIPTION OF PROCEDURE: Informed consent was obtained, including discussion of risks including bleeding, scarring, infection, and recurrence/persistence. [place] Protocol Time-Out performed. The lesionals areas were prepped with hibiclens prior to infiltration with 1% lidocaine with epinephrine, 1:100,000 x 0.4 ml. The lesions were biopsied with a Dermablade. Hemostasis was obtained with aluminum chloride and firm pressure. The specimen(s) were placed in formalin and sent for routine histopathological evaluation. There were no complications. The wounds were then dressed with sterile petrolatum and a sterile dressing. Wound care instructions were provided in verbal and written form including a 24-hour contact number in case of emergency. The patient will be notified. Return visit: Pending path Patient was instructed to return sooner should they develop any new, changing and/or worsening lesions, side effects of any recommended treatments, or as needed. Graeme Banerjee MD PGY-2 Resident Department of Dermatolgy Cosigned by Estelle Reynoso MD PhD at 09/06/2021 12:10 PM CDT Associated attestation - Estelle Reynoso MD PhD - 09/06/2021 12:10 PM CDT I have seen and examined the patient. I agree with the findings and plan of care as discussed with the resident/fellow. and I was present for the entire procedure. documented in this encounter Miscellaneous Notes * Addendum Note - Nydia Juárez - 09/06/2021 9:45 AM CDTAddended by: NYDIA JUÁREZ on: 09/06/2021 12:29 PM Modules accepted: Orders documented in this [...] Date/Time Associated Diagnosis Comments SURGICAL PATHOLOGY Routine 09/06/2021 12 :00 AM CDT Neoplasm of unspecified behavior of bone, soft tissue, and skin documented in this encounter Results * Surgical pathology (09/06/2021 12:00 AM CDT) Tissue (Skin, shave biopsy) 09/06/2021 09/06/2021 12:35 PM CDT [facility] - 09/08/2021 10:55 AM CDT EPIC results best viewed via link to PDF [facility] Dermatopathology [place] [address] ??[address], [place] [address] ? [email or web address] Note to Patients: ??This report may contain [...] can answer questions and explain the details. FINAL REPORT Patient Information: PATIENT NAME: ??JUD THOMAS ? SEX: ??F ? : ??1990 (Age: 30) ? Specimen Information: COLLECTED: ??09/06/2021 ? RECEIVED: ??09/06/2021 ? REPORTED: ??09/08/2021 ? Submitting Physician Information: Estelle Reynoso M.D. Dermatology [facility] [address] [place], [place] ??[address], ? DERMATOPATHOLOGY REPORT RESULTS ?? DIAGNOSIS: A. SKIN, RIGHT UPPER BACK, SHAVE BIOPSY: ? DERMAL MELANOCYTIC NEVUS ?? B. SKIN, MID UPPER BACK, SHAVE BIOPSY: ? MELANOCYTIC NEVUS WITH CONGENITAL FEATURES ?? rnc/isr By this signature, I attest that the above diagnosis is based upon my personal examination of the slides(and/or other material indicated in the diagnosis). Natasha Sandoval M.D. ?? Report Electronically Reviewed and Signed Out By ??Natasha Sandoval M.D. 09/08/2021 10:55:10 CLINICAL INFORMATION A. ??R/O SK. B. ??R/O MELANOMA. ?? SPECIMEN DATA MICROSCOPIC DESCRIPTION: A. There are uniform nests, cords and strands of small, monomorphous melanocytes within the dermis. (D22.9) B. There are uniform nests, cords and strands of small, monomorphous melanocytes around blood vessels and between collagen bundles throughout the dermis. (D22.9) GROSS DESCRIPTION: A. ??Received in a formalin-containing bottle is a superficial fragment of hsu, finely scaling skin measuring 0.5 by 0.5 by 0.1 cm. The surgical margin is inked blue. The specimen is sectioned into 2 pieces and submitted entirely in a single cassette. Due to shrinkage, measurements may be different than those at time of procedure. B. ??Received in a formalin-containing bottle is a superficial fragment of hsu, finely scaling, hair-bearing skin measuring 1.0 by 0.7 by 0.1 cm. The surgical margin is inked blue. The specimen is sectioned into 3 pieces and submitted entirely in a single cassette. Due to shrinkage, measurements may be different than those at time of procedure. klp/dxv Clerical Data A; 92325 B; 34343 The Characteristics of some immunohistochemical and immunofluorescence stains as well as in-situ hybridization tests were determined by the [facility] in ongoing quality engineer medical device and in compliance with regulations drawn from the Clinical Laboratory Improvement Act of 1988 (CLIA '88). These tests may rely on the use of analyte specific reagents that are subject to specific labeling requirements by the [place] FDA, and may only be performed in a facility that is certified by the [facility] as a high-complexity laboratory under CLIA '88. ??These tests are used for clinical purposes and are not investigational. ??For lab developed tests, the validation has been reviewed; the performance is considered acceptable for patient testing. Estelle Reynoso MD PhD LAB PATHOLOGY OR DERABLES Final Result [facility] [address] [place] [id number] documented in this encounter Visit Diagnoses Diagnosis Neoplasm of unspecified behavior of bone, soft tissue, and skin- Primary Multiple benign nevi Atypical nevi Benign neoplasm of skin, site unspecified documented in this encounter Care Teams Media Arts Professor Relationship Specialty Start Date End Date Daily Cruz MD PCP - General Family Medicine 03/04/21 documented as of this encounter
--- OUTSIDE RECORDS SUMMARY | 2024-02-21 19:37 | XMS_ITS | Encounter Summary ---
Author Organization [facility] Address [address] [place] [address] Care Team Providers Care Broadcast Operations Director Name Role Phone Daily Cruz MD Primary Care Provider [phone] [phone] Encounter Details Date Type Department Care Team (Late st Contact Info) Description 12/15/2021 7:35 AM CDT Lab [facility] Lab 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 Gender Identity Female 03/02/2020 4:27 PM AEROSPACE ASSEMBLER Sexual Orientation Straight 07/10/2019 11 :13 [...] Procedure Name Priority Date/Time Associated Diagnosis Comments BATSHEVA QUALITATIVE WITH REFLEX TO BATSHEVA QUANTITATIVE Routine 12/15/2021 7:44 AM CDT Localized swelling of left foot High serum c-peptide Chronic pain of multiple joints C-PEPTIDE Routine 12/15/2021 7:44 AM CDT Localized swelling of left foot High serum c-peptide Chronic pain of multiple joints ERYTHROCYTE SEDIMENTATION RATE Routine 12/15/2021 7:44 AM CDT Localized swelling of left foot High serum c-peptide Chronic pain of multiple joints RHEUMATOID FACTOR Routine 12/15/2021 7:4 4 AM CDT Localized swelling of left foot High serum c-peptide Chronic pain of multiple joints URIC ACID Routine 12/15/2021 7:44 AM CDT Localized swelling of left foot High serum c-peptide Chronic pain of multiple joints documented in this encounter Results * BATSHEVA qualitative with reflex to BATSHEVA Quantitative (12/15/2021 7:44 AM CDT) BATSHEVA Negative ANGELICA Comment: Interpretive Data Normal range for BATSHEVA [...] last revised on 2019. Testing performed by: [facility], [address] [facility], [place]., [address] Blood 12/15/2021 7:44 AM CDT 12/15/2021 11:07 AM CDT Daily Cruz MD LAB BLOOD ORDERABLES Karen l Result [address] [place] [address] * (ABNORMAL) Erythrocyte sedimentation rate (12/15/2021 7:44 AM CDT) Pathologist [facility] Erythrocyte sedimentation rate 39(H) 1 - 20 mm/hr [facility] Blood 12/15/2021 7:44 AM CDT 12/15/2021 7:56 AM CDT Daily Cruz MD LAB BLOOD ORDERABLES Karen l Result Performing Organization Address City/[facility]/ZIP Co de Phone Number [address] [place] [address] * Rheumatoid factor (12/15/2021 7:44 AM CDT) Pathologist [facility] Rheumatoid factor, quant <10.0 <=15.0 IUnits/mL [facility] Blood 12/15/2021 7:44 AM CDT 12/15/2021 7:56 AM CDT Daily Cruz MD LAB BLOOD ORDERABLES Karen l Result [address] [place] [address] * C-peptide (12/15/2021 7:44 AM CDT) Pathologist [facility] C-peptide 3.5 1.1 - 4.4 ng/mL [facility] Blood 12/15/2021 7:44 AM CDT 12/15/2021 7:56 AM CDT Daily Cruz MD LAB BLOOD ORDERABLES Karen l Result Performing Organization Address City/[facility] Co de Phone Number [address] [place] [address] * Uric acid (12/15/2021 7:44 AM CDT) Uric acid 4.2 2.5 - 7.0 mg/dL [facility] Blood 12/15/2021 7:44 AM CDT 12/15/2021 7:56 AM CDT Daily Cruz MD LAB BLOOD ORDERABLES Karen l Result Performing Organization Address [facility] de Phone Number [address] [address] documented in this encounter Visit Diagnoses Diagnosis Localized swelling of left foot High serum c-peptide Chronic pain of multiple joints documented in this encounter Care Teams Broadcast Operations Director Relationship Specialty Start Date End Date Daily Cruz MD PCP - General Family Medicine 03/04/21 documented as of this encounter
--- OUTSIDE RECORDS SUMMARY | 2024-02-21 19:37 | XMS_ITS | Encounter Summary ---
Author Organization [facility] Address [address] [place] [address] Phone Care Team Providers Care Gage Maker Name Role Phone Daily Cruz MD Primary Care Provider [phone] [phone] Encounter Details Date Type Department Care Team (Late st Contact Info) Description 08/30/2021 Orders Only 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
--- OUTSIDE RECORDS SUMMARY | 2024-02-21 19:37 | XMS_ITS | Encounter Summary ---
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 Name Role Phone Daily Cruz MD Primary Care Provider [phone] [phone] Reason for Visit * Reason Comments Skin Exam Rash upper body and face * Consultation (Routine) - Closed Specialty Diagnoses / Procedures Referred By Contac t Referred To Contact Dermatology Diagnoses Allergic contact dermatitis, unspecified trigger Natasha Sandoval MD Phone: tel: fax: Natasha Sandoval MD [address] [place] [address] Phone: tel: fax: Referral ID Status Reason Start Date Expiration Date V isits Requested Visits Authorized [id number] Closed Specialty Services Required 06/29/2021 07/29/2022 99 99 Encounter Details Date Type Department Care Team (Latest Contact Info) Description 07/22/2021 1:45 PM CDT Office Visit [facility] Dermatology [address] [place] [address] Outpatient Health [address] [place] [address] Jair Ott PA [address] [place] [id number] Acute respiratory infection (Primary Dx); Petechiae; Rash and other nonspecific skin eruption; Post-inflammatory hyperpigmentation Social History Tobacco Use Types Packs/Day Years [...] file 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 female that presents today for rash. Patient states that she was seenin urgent care clinic for suspected allergic contact dermatitis and was placed on oral tapering steroid doses well as topical steroids. Patient states that her rash significantly improved on the above treatments. She states that after she finished her steroid orally she developed respiratory infection. She has been fighting this for the past week or so. 3-4 days ago she woke up and had rash to her face and neck that progressed to chest and arms as well. She states she had some facial swelling. States the rash was bumpy and red and itchy. This was concurrent with her upper respiratory infection sore throat cough. She had low-grade fever at that time as well. She had visit with the PCP and has been placed on Zithromax, cough suppressant, inhalers with significant improvement. She states fever has resolved. She states rash has resolved. She still has cough which can be vigorous at times and noted some red benites to her upper chest which persist. This rash is asymptomatic. She notes a ???scar?? to the right arm where previous rash had been from last visit to Dermatology urgent care clinic.. No other changing moles, nonhealing lesions, new rashes, or growths. MEDICATIONS/ALLEGIES/FAMILY HX/SOCIAL HX: Reviewed in chart ROS Lymphatic:No swollen lymph nodes Constitutional: Low-grade fever prior starting antibiotics 3 4 days ago, resolved Respiratory: shortness of breath, coughing Integument: Red benites upper chest, rash this week that has resolved PAST MEDICAL HISTORY Past Medical History: Diagnosis Date ??? ADHD (attention deficit hyperactivity disorder) ??? Anxiety ??? Arthritis ??? Brain concussion 2010, 2010 ??? Chronic bronchitis (CMS/HCC) ([facility]) ??? Depression ??? Gastric reflux ??? GERD (gastroesophageal reflux disease) PRN tums ??? IIH (idiopathic intracranial hypertension) Pseudotumor cerebri. reports last spinal tap 2017. currently following with PCP, previously has followed with neuro ??? Irritability ??? 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 Kidney stone 2019 ??? Low back [...] URI. ??? Seasonal allergies ??? Seizures (CMS/HCC) ([facility]) off medication since 2018 with no further seizure activity, EEG negative ??? SOB (shortness of breath) MEDICATIONS Current Outpatient Medications: ??? acetaminophen (TYLENOL) 500 mg tablet, Take 1,000 mg by mouth every 6 (six) hours as needed forpain, Disp: , Rfl: ??? albuterol HFA (PROVENTIL HFA,VENTOLIN HFA,PROAIR HFA) [...] swallow., Disp: 1 each, Rfl: 1 ??? fluticasone propionate (FLONASE) 50 mcg/actuation nasal spray, Administer 2 sprays into each nostril daily (Patient taking differently: Administer 2 sprays into each nostril as needed), Disp: 16 g, Rfl: 0 ??? furosemide (LASIX) 20 mg tablet, TAKE 1 TABLET BY MOUTH EVERY DAY, Disp: 30 tablet, Rfl: 0 ??? galcanezumab-gnlm [...] needed), Disp: 9 tablet, Rfl: 0 ??? tamsulosin (FLOMAX) 0.4 mg extended release capsule, Take 1 capsule (0.4 mg total) by mouth daily for 14 days, Disp: 14 capsule, Rfl: 0 ??? triamcinolone (KENALOG) 0.1 % cream, Apply topically 2 (two) times a day as needed for rash Do not use on the face or in the groin, Disp: 454 g, Rfl: 2 PHYSICAL EXAM GENERAL: Appears well. No acute distress. ORIENTATION: Alert and oriented x3. MOOD/AFFECT: Normal affect. The following areas were evaluated with a skin examination: Face, Ears, Scalp/Hair, Eyes/Eyelids/Conjunctiva, Lips/Oral Mucosa, Neck, Chest, Back, Abdomen, Right Upper Extremity, Left Upper Extremity *Significant Abnormalities on Skin Exam: Linear patch of petechiae across the upper chest Thin linear patch of hyperpigmentation to the right medial forearm that corresponded to area of suspected allergic contact dermatitis on previous photos, remainder of rash from previous photos has completely resolved ASSESSMENT AND PLAN 1. Petechiae - present to the upper chest, likely secondary to vigorous coughing from current respiratory infection 2. Acute respiratory infection -under treatment from PCP 3. Rash and other nonspecific skin eruption -resolved, with concurrent upper respiratory infection consider viral process or less likely scarlatina which is improving with antibiotics -patient to monitor and reach out through MyChart or call the office for repeat appointment if rashreturns -her suspected contact dermatitis improved with steroids and has completely resolved except for mild hyperpigmented linear patch to the right arm which I reassured her should resolve with time 4. Post-inflammatory hyperpigmentation - Benign. Reassurance was given. No treatment is indicated at this time. Patient was instructed to return if lesion changes or becomes symptomatic. Cosigned by Jose Rafael Madrid MD at 08/19/2021 1:28 PM CDT documented in this encounter Plan [...] of this encounter Visit Diagnoses Diagnosis Acute respiratory infection- Primary Other diseases of respiratory system, not elsewhere classified Petechiae Spontaneous ecchymoses Rash and other nonspecific skin eruption Post-inflammatory hyperpigmentation Dyschromia, unspecified documented in this encounter Orders Outpatient Referral Count Last Ordered Date Fir st Ordered Date AMB REFERRAL TO DERMATOLOGY 1 07/22/2021 documented in this encounter Care Teams [employer] Teacher Relationship Specialty Start Date End Date Daily Cruz MD PCP - General Family Medicine 03/04/21 documented as of this encounter
--- OUTSIDE RECORDS SUMMARY | 2024-02-21 19:37 | XMS_ITS | Encounter Summary ---
Author Organization [facility] Address [address] [facility] [place] [address] [place] [address] Care Team Providers Care Sign Letterer Name Role Phone Daily Cruz MD Primary Care Provider [phone] [phone] Encounter Details Date Type Department Care Team (Late st Contact Info) Description 02/25/2022 Telephone [facility] Family Medicine at [place] [address] [place] [address] [address] [place] [address] Daily Cruz MD [address] [place] [address] [address] [place] [address] Social History Tobacco Use Types [...] on file 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 Gender Identity Female 03/02/2020 4:27 PM CAMPER ASSEMBLER Sexual Orientation Straight 07/10/2019 11 :13 PM CDT documented as of this encounter Ordered Prescriptions Prescription Sig Dispense Quantity Refills Last Filled Start Date End Date fluticasone propionate (FLONASE) 50 mcg/actuation nasal sprayIndications:R eactive airway disease without asthma,Allergic reaction, initial encounter Administer 2 sprays into each nostril daily 48 mL 1 02/25/2022 documented in this encounter Miscellaneous Notes * Telephone Encounter - Alexander Hancock MA - 02/25/2022 12:57 PM CAMPER ASSEMBLER Medication refill ER ASSEMBLER documented in this encounter Plan of [...] Visit Diagnoses Diagnosis Reactive airway disease without asthma Allergic reaction, initial encounter documented in this encounter Discontinued Medications Medication Sig Discontinue Reason Start Date End Da te fluticasone propionate (FLONASE) 50 mcg/actuation nasal sprayIndications:Reactiv e airway disease without asthma,Allergic reaction, initial encounter SPRAY 2 SPRAYS INTO EACH NOSTRIL EVERY DAY Reorder 02/03/2022 02/25/2022 documented as of this encounter Care Teams Sign Letterer Relationship Specialty Start Date End Date Daily Cruz MD PCP - General Family Medicine 03/04/21 documented as of this encounter
--- OUTSIDE RECORDS SUMMARY | 2024-02-21 19:37 | XMS_ITS | Encounter Summary ---
Author Organization [facility] Address [address] [place] [address] Phone Care Team Providers Care Cut In Station Operator Name Role Phone Daily Cruz MD Primary Care Provider [phone] [phone] Reason for Visit * Reason Comments Skin Exam * Consultation (Routine) - Closed Specialty Diagnoses / Procedures Referred By Matt burk Referred To Contact Dermatology Diagnoses Allergic contact dermatitis, unspecified trigger Natasha Sandoval MD Phone: tel: fax: Natasha Sandoval MD [address] [place] [address] Phone: tel: fax: Referral ID Status Reason Start Date Expiration Date V isits Requested Visits Authorized [id number] Closed Specialty Services Required 06/29/2021 07/29/2022 99 99 Encounter Details Date Type Department Care Team (Late st Contact Info) Description 08/06/2021 3:00 PM CDT Office Visit [facility] Dermatology [address] [place] [address] Outpatient Health [address] [place] [address] Estelle Reynoso MD PhD [address] [place] [phone] Multiple benign nevi (Primary Dx); Atypical nevi; History of allergic contact dermatitis Social History Tobacco Use Types Packs/Day Years [...] on file 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 female. Chief Complaint Skin Exam and mole removals History of Present Illness 30 yo female with history of mole and ACD recently treated and resolved here to establish care and a skin check. Notes that she has a mole on her back that has grown and may have bled +/- trauma in the past that she would like removed Notes her rash is mostly resolved although she wonders why he had a rash when she has never had a rash in her life before the past couple months. Previously, Patient states that she was seen in urgent care clinic for suspected allergic contact [...] has been placed on Zithromax, cough suppressant, inhalerswith significant improvement. She states fever has resolved. She states rash has resolved. She still has cough which can be vigorous at times and noted some red benites to her upper chest which persist. This rash is asymptomatic. She notes a ???scar?? to the right arm where previous rash had been from last visit to Dermatology urgent care clinic.. PMSFHx: No personal history of skin cancer. [...] exception of these notable exam findings: - hyperpigmented patches on medial arms and upper trunk - pigmented fleshy papule on the left mid back - speckled irregular patch on the upper back, globular on dermoscopy - unclear history Assessment/Plan Diagnoses and all orders for this visit: Multiple benign nevi (D22.9) (Primary) patient educated on course and prognosis. Recommend cautious observation for change One bled and patient would like to have it removed Atypical nevi (D22.9) Upper back Possibly congenital nevus but patient is not sure about duration. Will ask family members and if noclear history will have it removed at procedure appointment. History of Allergic contact dermatitis, unclear trigger - Asked to avoid potential allergens and irritants on her skin - discussed that she should attempt to avoid direct contact with vegetation with her skin. Wear long sleeves when in tall vegetation. F/u for procedure appointment documented in this encounter Plan of Treatment [...] as of this encounter Visit Diagnoses Diagnosis Multiple benign nevi- Primary Atypical nevi Benign neoplasm of skin, site unspecified History of allergic contact dermatitis documented in this encounter Care Teams Cut In Station Operator Relationship Specialty Start Date End Date Daily Cruz MD PCP - General Family Medicine 03/04/21 documented as of this encounter
--- OUTSIDE RECORDS SUMMARY | 2024-02-21 19:37 | XMS_ITS | Encounter Summary ---
Author Organization [facility] Address [address] [facility] [address] [place] [address] Care Team Providers Care Pairer Name Role Phone Daily Cruz MD Primary Care Provider [phone] [phone] Reason for Visit * Reason Onset Date Comments Rectal Bleeding 10/22/2021 Encounter Details Date Type Department Care Team (Late st Contact Info) Description 10/22/2021 Nurse Triage [facility] Family Medicine at [place] [address] [facility] [address] [place] [id number] Lucy Gallegos RN Social History Tobacco Use Types Packs/Day [...] on file 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 Pain: 07/23. Symptoms: patient c/o Blood on tissue after BM x 2 and uin toilet bowl, RLQ abdominal cramping and nausea. Slightly constipated, clot size of the palm of her hand. Fell at work on butt a week ago hit ground. On anti-inflammatories.Ketoralac, Metaxalone... Denies: other symptoms, Patient has HX of: 10/21/21 [place] . Migraines, gastritis, bipolar 2 Home Care Instructions/Education given: Patient verbalizes understanding of the instructions, is comfortable with the plan and will comply with the plan. Disposition per guideline:Go to ED now. PCP/GAS TRANSFER OPERATOR contacted via secure chat for ED disposition consult. Recommendation from provider:No response/sent to ED Patient will be going to [facility] ED now. Pharmacy and allergies were verified. I-HP tasked to PCP's clinical pool. Reason for Disposition SEVERE rectal bleeding (large blood clots; on and off, or constant bleeding) Protocols used: Rectal [id number] * Telephone Encounter - Christa Leal RN - 10/22/2021 8:20 AM CDT Regarding: Blood in stoole ----- Message from Dixie Stinson MA sent at 10/22/2021 8:03 AM CDT ----- Symptom Based Call Chief Complaint: Blood in [place] Did you review 911/Red Flag List?Yes Duration: today Why was appointment not scheduled? Red flag Caller's Callback #: [phone] Additional Comments: Patient is calling in stating stat she went to the bathroom this morning and had a bowel movement and when she wiped there was quite a bit of bright red blood. Patient states sheis having stomach cramps and nausea. Patient states she went to the bathroom a second time and again blood filled the toilet paper . Does message need to be routed? Yes-Action Needed documented in this encounter Plan of Treatment Not on file documented as of this encounter Goals Goal Patient Goal Type Associated Problems Recent Progress Patient-Stated? Author CCM Chronic Pain Care Plan Chronic Care Management No Sangeetha Parsosn RN Note: Problem: Chronic Pain Goals: 1. [...] documented as of this encounter Care Teams Pairer Relationship Specialty Start Date End Date Daily Cruz MD PCP - General Family Medicine 03/04/21 documented as of this encounter
--- OUTSIDE RECORDS SUMMARY | 2024-02-21 19:37 | XMS_ITS | Encounter Summary ---
Author Organization [facility] Address [address] [place] [address] Phone Care Team Providers Care Checker In Name Role Phone Daily Cruz MD Primary Care Provider [phone] [phone] Encounter Details Date Type Department Care Team (Late st Contact Info) Description 11/03/2021 Orders Only [facility] Orthopaedic Surgery [address] [facility] 1st [address] [place] [address] Milagros Alatorre CMA Right foot pain (Primary Dx) Social History Tobacco Use Types [...] on file 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
--- OUTSIDE RECORDS SUMMARY | 2024-02-21 19:37 | XMS_ITS | Encounter Summary ---
Author Organization [facility] Address [address] [place] [address] Phone Care Team Providers Care Healthcare Economics Consultant Name Role Phone Daily Cruz MD Primary Care Provider [phone] [phone] Reason for Visit * Reason Comments Rash * Consultation (Urgent) - Closed Specialty Diagnoses / Procedures Referred By Matt burk Referred To Contact Dermatology Diagnoses Herpes zoster with complication Daily Cruz MD Phone: tel: fax: Natasha Sandoval MD Phone: tel: fax: Referral ID Status Reason Start Date Expiration Date V isits Requested Visits Authorized [id number] Closed Specialty Services Required 06/24/2021 07/24/2022 1 1 Encounter Details Date Type Department Care Team (Late st Contact Info) Description 06/25/2021 2:00 PM CDT Office Visit [facility] Dermatology [facility] [address] [place] [address] Natasha Sandoval MD [address] [place] [address] [address] [place] [address] Allergic contact dermatitis, unspecified trigger (Primary Dx); Herpes zoster with complication Social History Tobacco Use Types Packs/Day [...] on file 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 Gender Identity Female 03/02/2020 4:27 PM ACTIVITY LEADER Sexual Orientation Straight 07/10/2019 11 :13 PM CDT documented as of this encounter Ordered Prescriptions Prescription Sig Dispense Quantity Refills Last Filled Start Date End Date triamcinolone (KENALOG) 0.1 % creamIndications:A llergic contact dermatitis, unspecified trigger Apply topically 2 (two) times a day as needed for rash Do not use on the face or in the groin 454 g 2 06/25/2021 4 predniSONE (DELTASONE) 20 mg tabletIndications: Allergic contact dermatitis, unspecified trigger Take 4 tablets (80 mg) by mouth every morning for 4 days, THEN 3 tablets (60 mg) every morning for 4 days, THEN 2 tablets (40 mg) every morning for 4 days, THEN 1 tablet (20 mg) every morning for 4 days, THEN 0.5 tablets (10 mg) every morning for 4 days. 42 tablet 06/25/2021 2 documented in this encounter Progress Notes * Papo Maldonado MD - 06/25/2021 2:00 PM CDT Images from the original note were not included. DERMATOLOGY URGENT CARE NOTE DATE: 06/25/21 CC: rash HPI Jud Leung is a 30 y.o. female who presents today for rash. Concerns today: 1) Notes a rash over the last 14 days largely on the R upper extremity but also a bit on the L upper extremity. She went fishing shortly before the rash began - can't remember if any drinks with limewere consumed that day. She says they sat in the grass but doesn't think she was exposed to poison kain. She was given a Medrol dose pack as well as Valtrex as empiric zoster treatment without any impr ovement. Denies any other non-healing sores, new or changing moles. Reviewed medications, allergies, past medical history, family history, and social history. Non-contributory unless otherwise specified below. ROS Constitutional: No fever or chills Oral: No mouth sores Genitourinary: No genital sores Lymphatic: No swollen lymph nodes PHYSICAL EXAM: R upper arm with pink edematous plaques, linear in some areas L hand with pink edematous plaque Otherwise as allowed by the patient: GENERAL: Appears well. No acute distress. ORIENTATION: Alert and oriented x3. MOOD/AFFECT: Normal affect. FACE: No abnormalities noted. EARS: No abnormalities noted. SCALP/HAIR: No abnormalities noted. EYES/EYELIDS: No scleral icterus. No abnormalities noted of conjunctiva or eyelids. LIPS/ORAL MUCOSA: No abnormalities noted. DIGITS/NAILS: No cyanosis, clubbing, or nail abnormality. NECK: No abnormalities noted. CHEST: No abnormalities noted. BACK: No abnormalities noted. ABDOMEN: No abnormalities noted. EXTREMITIES (RLE): No abnormalities noted. EXTREMITIES (LLE): No abnormalities noted. ASSESSMENT AND PLAN: 1. Rash - Favor allergic contact dermatitis (including to poison kain) over phytophotodermatitis (patient isunsure if she came into contact with chevak juice) - Already took Medrol dose pack - Start prednisone taper 80mg qAM x 4 days, 60mg qAM x 4 days, 40mg qAM x 4 days, 20mg qAM x 4 days, 10mg qAM x 4 days, off - Start TMC 0.1% cream BID PRN to the rash; SER including atrophy, striae, dyspigmentation, acne (if used on the face) - Discussed that if fails to resolve with the prednisone taper then would favor biopsy - Photos obtained Skin cancer education was provided, sun protection measures were discussed. Follow-up if any concerning new or changing moles or non healing sores. RTC PRN at [facility] Papo Maldonado MD Dermatology Resident, PGY-3 ATTESTATION: I have seen and examined the patient. I agree with the findings and plan of care as documented in the resident's note. Natasha Sandoval MD Cosigned by Natasha Sandoval MD at 06/28/2021 11:12 AM CDT documented in this encounter Plan of [...] of this encounter Visit Diagnoses Diagnosis Allergic contact dermatitis, unspecified trigger- Primary Herpes zoster with complication documented in this encounter Orders Outpatient Referral Count Last Ordered Date Fir st Ordered Date AMB REFERRAL TO DERMATOLOGY 1 06/29/2021 documented in this encounter Care Teams Healthcare Economics Consultant Relationship Specialty Start Date End Date Daily Cruz MD PCP - General Family Medicine 03/04/21 documented as of this encounter
--- OUTSIDE RECORDS SUMMARY | 2024-02-21 19:37 | XMS_ITS | Encounter Summary ---
Author Organization [facility] Address [address] [place] [address] Phone Care Team Providers Care Purchasing Internship Name Role Phone Daily Cruz MD Primary Care Provider [phone] [phone] Reason for Visit * Reason Comments Follow-up Encounter Details Date Type Department Care Team (Latest Contact Info) Description 03/22/2022 3:40 PM PROCEDURES ANALYST Office Visit [facility] Allergy and Immunology [address] [facility] [address] [place] [address] Hortencia Rivera MD PhD [address] [place] [address] Acute bacterial sinusitis (Primary Dx); Seasonal allergic rhinitis due to pollen; Allergic conjunctivitis of both eyes; Non-seasonal allergic rhinitis due to other allergic trigger; Persistent asthma without complication, unspecified asthma severity; Acute bronchitis due to other specified organisms [...] on file Legal Sex Female 3:37 PM PROCEDURES ANALYST Gender Identity Female 03/02/2020 4:27 PM PROCEDURES ANALYST Sexual Orientation Straight 07/10/2019 11 :13 PM CDT documented as of this encounter Last Filed Vital Signs Vital Sign Reading Time Taken Comments Blood Pressure 104/72 03/22/2022 3:45 PM PROCEDURES ANALYST Pulse 68 03/22/2022 3:45 PM PROCEDURES ANALYST Temperature 36.6 ??C (97.8 ??F) 03/22/2022 3:45 PM CS T Respiratory Rate - - Oxygen Saturation 99% 03/22/2022 3:45 PM PROCEDURES ANALYST Inhaled Oxygen Concentration - - Weight 117 kg (258 lb) 03/22/2022 3:45 PM PROCEDURES ANALYST Height - - Body Mass Index 40.41 03/02/2022 2:10 PM PROCEDURES ANALYST documented in this encounter Ordered Prescriptions Prescription Sig Dispense Quantity Refills Last Filled Start Date End Date methylPREDNISolone (MEDROL DOSEPACK) 4 mg Dosepack Take 1 tablet (4 mg total) by mouth daily after breakfast follow package directions 1 packet 03/22/2022 3 albuterol HFA (PROVENTIL HFA,VENTOLIN HFA,PROAIR HFA) 90 mcg/actuation inhalerIndications :Acute bronchitis due to other specified organisms Inhale 2 puffs 4 (four) times a day for 5 days Use only as needed after those 5 days 6.7 each 1 03/22/2022 3 azithromycin (Zithromax Z-Michael) 250 mg tablet Take 2 tabs (500 mg) by mouth today, then 1 tab (250 mg) daily for 4 days. 6 tablet 03/22/2022 3 documented in this encounter Progress Notes * Hortencia Rivera MD PhD - 03/22/2022 3:40 PM CST Daily Cruz MD, We had the pleasure of seeing Jud Leung today in the Division of Allergy and Immunology at [facility] for routine follow- up. Jud Leung was last seen here on Mar 02. On Mar 02, The patient had a skin reaction to a facial treatment with redness, burning, and puffy eye lids. She is out of Arianna and noticed increased symptoms. Currently on Arianna bid to help control allergy. She is also on montelukast and Breztri by PCP, 2 bid. But needed albuterol 2-3 times last week, together with increase throat and nasal symptoms. Last couple of days she has been having headaches, congestion, sore throat, increased postnasal drip but no fever. She has been in contact with a sick sister 5-6 days ago. Today she also has a nose bleed. The facial rash she had resolved completely over a week. Review of Symptoms: Review of systems has no pertinent positives; otherwise as noted in HPI. Allergies: Acetazolamide, Dihydroergotamine, Hydrochlorothiazide, Nickel, Topiramate, Hydrocodone-acetaminophen, Lamotrigine, Levetiracetam, and Oxycodone-acetaminophen Current Medications: Current Outpatient Medications: flgdcqccdkbes-dqjujxf-katzsica (EXCEDRIN MIGRAINE) 250-250-65 mg per tablet, Take [...] FOR WHEEZING, Disp: 6.7 each, Rfl: 1 siaeshjmgq-fcjqtjbn-guqcejxreo (Breztri Aerosphere) 160-9-4.8 mcg/actuation HFA aerosol inhaler, [...] tablet, Rfl:0 fexofenadine (ARIANNA) 180 mg tablet, TAKE 1 TABLET BY MOUTH EVERY DAY (Patient taking differently:2 (two) times a day), Disp: 30 tablet, Rfl: 0 fluticasone propionate (FLONASE) 50 mcg/actuation [...] the review of systems. Physical Exam: BP 104/72 Pulse 68 Temp 36.6 ??C (97.8 ??F) (Oral) Wt 117 kg (258 lb) SpO2 99% BMI 40.41 kg/m?? General: Patient is well nourished, well developed and in no acute distress. HEENT: Normocephalic, atraumatic, EOMI. ++ conjunctival injection. Tympanic membranes clear bilaterally. + nasal mucosal erythema and ++ nasal turbinate enlarged and erythematous on th left side with greenish discharge ++ on the left side reduced nasal air flow, + pharyngeal cobblestoning, ++ pretonsillar erythema, + exudate, ++ sinus tenderness. Over the left frontal and maxillary. Neck: Supple with no lymphadenopathy. Lungs: CTA. No wheezing, no accessory respiratory muscle activity or labored breathing. Cardiovascular: Regular rate and rhythm. No murmur. Skin: no rashes, eczema or swelling Neurological and musculoskeletal: grossly intact Extremities: No clubbing, cyanosis, or edema. Spirometry: deferred Laboratory Testing: No results found for this or any previous visit (from the past 336 hour(s)). Impression and Recommendations: (J01.90, B96.89) Acute bacterial sinusitis (primary encounter diagnosis) (J30.1) Seasonal allergic rhinitis due to pollen (H10.13) Allergic conjunctivitis of both eyes (J30.89) Non-seasonal allergic rhinitis due to other allergic trigger (J45.909) Persistent asthma without complication, unspecified asthma severity --- - Tight environmental control: Detailed written instruction on reducing allergen exposure are provided. - Immunotherapy is strongly recommended (considering severity, atopic/allergic comorbidity, response to medications and impact on QoL). Continue other medications as planned. Consider immunotherapy New Medications Ordered This Visit azithromycin (Zithromax Z-Michael) 250 mg tablet Sig: Take 2 tabs (500 mg) by mouth today, then 1 tab (250 mg) daily for 4 days. Dispense: 6 tablet Refill: 0 albuterol HFA (PROVENTIL HFA,VENTOLIN HFA,PROAIR HFA) 90 mcg/actuation inhaler Sig: Inhale 2 puffs 4 (four) times a day for 5 days Use only as needed after those 5 days Dispense: 6.7 each Refill: 1 methylPREDNISolone (MEDROL DOSEPACK) 4 mg Dosepack Sig: Take 1 tablet (4 mg total) by mouth daily after breakfast follow package directions Dispense: 1 packet Refill: 0 Follow up: Return in about 3 months (around 06/19/2022). My total encounter time on 03/22/2022 was 40 minutes which was spent in the activities documented in the note. This includes time spent prior to the visit and after the visit in direct care of the patient. This time does not include time spent in any separately reportable services. Hortencia Rivera MD, PHD EDURES ANALYST documented in this encounter Plan of [...] of this encounter Visit Diagnoses Diagnosis Acute bacterial sinusitis- Primary Acute sinusitis, unspecified Seasonal allergic rhinitis due to pollen Allergic conjunctivitis of both eyes Other chronic allergic conjunctivitis Non-seasonal allergic rhinitis due to other allergic trigger Persistent asthma without complication, unspecified asthma severity Acute bronchitis due to other specified organisms documented in this encounter Discontinued Medications Medication Sig Discontinue Reason Start Date End Da te albuterol HFA (PROVENTIL HFA,VENTOLIN HFA,PROAIR HFA) 90 mcg/actuation inhalerIndications:Acut e bronchitis due to other specified organisms INHALE 2 PUFFS EVERY 6 HOURS NEEDED FOR WHEEZING Reorder 08/11/2021 03/22/2022 documented as of this encounter Care Teams Purchasing Internship Relationship Specialty Start Date End Date Daily Cruz MD PCP - General Family Medicine 03/04/21 documented as of this encounter
--- OUTSIDE RECORDS SUMMARY | 2024-02-21 19:38 | XMS_ITS | Encounter Summary ---
Author Organization [facility] Address [address] [place] [address] Care Team Providers Care Towel Distributor Name Role Phone Daily Cruz MD Primary Care Provider [phone] [phone] Reason for Visit * Diagnostic Imaging (Routine) - Closed Specialty Diagnoses / Procedures Referred By Matt burk Referred To Contact Diagnoses Left ankle pain, unspecified chronicity Procedures XR Ankle Left 3+ View Selam Orosco NP [address] [facility] [facility] [place] [address] Phone: tel: fax: [facility] Referral ID Status Reason Start Date Expiration Date Visits Re quested Visits Authorized [id number] Closed 10/05/2020 11/04/2021 1 1 Encounter Details Date Type Department Care Team (Latest Contact Info) Description 10/05/2020 1:19 PM CDT - 10/05/2020 11:59 PM CDT Hospital Encounter [facility] [address] [place] [address] Bobby Jara MD [address] [facility] [address] [place] [address] Selam Orosco NP [address] [facility] [address] [place] [address] Discharge Disposition: Discharge to home or self care Social History Tobacco Use Types Packs/Day Years Used Date Smoking Tobacco: Never Smokeless Tobacco: Never Alcohol Use Standard Drinks/Week Comments Not Currently 0 (1 standard drink = 0.6 oz pure alcohol) Maybe a drink every few months AUDIT-C Answer Date Recorded Q1: How often do you have a drink containing alc ohol? Monthly or less 10/06/2020 Q2: How many drinks containi ng alcohol do you have on a typical day when you are drinking? 1 or 2 10/06/2020 Q3: How often do you have si x or more drinks on one occasion? Never 10/06/2020 PHQ-2 Answer Date Recorded PHQ-2 Total Score (If total score is 3 or more points, staff should administer the PHQ-9) 3 08/19/2020 Comments No Sex and Gender Information Value Date Recorded Sex Assigned at Not on file Legal Sex Female 3:37 PM CLIENT SERVICE AND CONSULTING MANAGER Gender Identity Female 03/02/2020 4:27 PM CLIENT SERVICE AND CONSULTING MANAGER Sexual Orientation Straight 07/10/2019 11 :13 PM CDT documented as of this encounter Medications at Time of Discharge albuterol HFA (PROVENTIL HFA,VENTOLIN HFA,PROAIR HFA) 90 mcg/actuation inhaler Inhale 2 puffs every 6 (six) hours as needed 2 budesonide-formot Erica (Symbicort) 160-4.5 mcg/actuation inhalerIndication s:Reactive airway disease that is not asthma Inhale 2 puffs 2 (two) times a day Rinse mouth with water after use. Do not swallow. 1 Inhaler 2 04/22/2020 2 bumetanide (BUMEX) 1 mg tabletIndications :Fluid retention TAKE 1 TABLET BY MOUTH TWICE A DAY 60 tablet 11 09/18/2020 2 butalbital-acetam inophen-caffeine- codeine (FIORICET WITH CODEINE) 28-199-11-30 mg per capsuleIndication s:Intractable chronic migraine without aura and with status migrainosus Take 1 capsule by mouth every 6 (six) hours as needed for headaches or migraine 30 capsule 09/11/[address] (VOLTAREN) 75 mg EC tabletIndications :Chronic pain of both knees,Chronic bilateral low back pain, unspecified whether sciatica present TAKE 1 TABLET BY MOUTH TWICE A DAY NEEDED FOR PAIN 60 tablet 1 08/24/2020 2 fluticasone propionate (FLONASE) 50 mcg/actuation nasal sprayIndications: Cough,Nasal congestion Administer 2 sprays into each nostril daily 16 g 12/18/2019 2 galcanezumab-gnlm (Emgality Pen) 120 mg/mL pen injectorIndicatio ns:Intractable chronic migraine without aura and with status migrainosus Inject 120 mg under the skin every 30 (thirty) days 1 mL 09/09/2020 2 levocetirizine (XYZAL) 5 mg tabletIndications :Cough,Nasal congestion Take 1 tablet (5 mg total) by mouth daily 30 tablet 12/18/2019 2 levonorgestreL (KYLEENA) IUD 1 each by intrauterine route once 3 pregabalin (LYRICA) 75 mg capsuleIndication s:Leg cramping Take 1 capsule (75 mg total) by mouth 2 (two) times a day 60 capsule 5 08/19/2020 2 SUMAtriptan (IMITREX) 50 mg tablet TAKE 1 TABLET BY MOUTH ONCE NEEDED FOR MIGRAINE. MAY REPEAT DOSE AFTER 2 HOURS 9 tablet 09/18/2020 2 ubrogepant (Ubrelvy) 50 mg tabletIndications :Chronic migraine without aura without status migrainosus, not intractable Take 1 tablet (50 mg total) by mouth once as needed for migraine May repeat dose once in 2 hours if no relief. Do not exceed 2 doses in 24 hours. 10 tablet 05/20/2020 2 documented as of this encounter Discharge Disposition [...] Name Priority Date/Time Associated Diagnosis Comments XR ANKLE LEFT 3 OR MORE VIEWS Schedule Routine, Read Routine (OP Routine) 10/05/2020 1:29 PM CDT Acute left ankle pain XR FOOT LEFT 3 OR MORE VIEWS Schedule Routine, Read Routine (OP Routine) 10/05/2020 1:29 PM CDT Left foot pain documented in this encounter Results * XR Ankle Left 3+ View (10/05/2020 1:29 PM CDT) Anatomical Region Laterality Modality Lower Extremities, Ankle Left Compute d Radiography 10/05/2020 1:35 PM CDT Impressions 10/05/2020 1:35 PM CDT 1. ??Healed internally fixated left first tarsometatarsal joint arthrodesis. 2. Mild left second tarsometatarsal osteoarthritis. Electronically signed by: Mina Miner M.D. Narrative 10/05/2020 1:35 PM CDT EXAMINATION: 1. Left foot 3 or more views. 2. Left ankle 3 or more views. HISTORY: ??Left foot and ankle pain FINDINGS: 3 views of the left foot and 3 views of the left ankle are submitted for interpretation. Comparison is made to prior 01/27/2020. There is a healed internally fixated first tarsometatarsal arthrodesis. Mild osteolysis is present about the screw between the first and second metatarsal bases. The ankle mortise is intact. There is a plantar calcaneal spur. There is mild second tarsometatarsal osteoarthritis. Procedure Note Mina Miner MD - 10/05/2020 EXAMINATION: 1. Left foot 3 or more views. 2. Left ankle 3 or more views. HISTORY: Left foot and ankle pain FINDINGS: 3 views of the left foot and 3 views of the left ankle are submitted for interpretation. Comparison is made to prior 01/27/2020. There is a healed internally fixated first tarsometatarsal arthrodesis. Mild osteolysis is present about the screw between the first and second metatarsal bases. The ankle mortise is intact. There is a plantar calcaneal spur. There is mild second tarsometatarsal osteoarthritis. IMPRESSION: 1. Healed internally fixated left first tarsometatarsal joint arthrodesis. 2. Mild left second tarsometatarsal osteoarthritis. Electronically signed by: Mina Miner M.D. Selam Orosco FERRY TERMINAL SUPERVISOR IMG XR PROCEDURES Final Resul t * XR Foot Left 3 or More Views (10/05/2020 1:29 PM CDT) Anatomical Region Laterality Modality Lower Extremities, Foot Left Computed Radiography 10/05/2020 1:35 PM CDT Impressions 10/05/2020 1:35 PM CDT 1. ??Healed internally fixated left first tarsometatarsal joint arthrodesis. 2. Mild left second tarsometatarsal osteoarthritis. Electronically signed by: Mina Miner M.D. Narrative 10/05/2020 1:35 PM CDT EXAMINATION: 1. Left foot 3 or more views. 2. Left ankle 3 or more views. HISTORY: ??Left foot and ankle pain FINDINGS: 3 views of the left foot and 3 views of the left ankle are submitted for interpretation. Comparison is made to prior 01/27/2020. There is a healed internally fixated first tarsometatarsal arthrodesis. Mild osteolysis is present about the screw between the first and second metatarsal bases. The ankle mortise is intact. There is a plantar calcaneal spur. There is mild second tarsometatarsal osteoarthritis. Procedure Note Mina Miner MD - 10/05/2020 EXAMINATION: 1. Left foot 3 or more views. 2. Left ankle 3 or more views. HISTORY: Left foot and ankle pain FINDINGS: 3 views of the left foot and 3 views of the left ankle are submitted for interpretation. Comparison is made to prior 01/27/2020. There is a healed internally fixated first tarsometatarsal arthrodesis. Mild osteolysis is present about the screw between the first and second metatarsal bases. The ankle mortise is intact. There is a plantar calcaneal spur. There is mild second tarsometatarsal osteoarthritis. IMPRESSION: 1. Healed internally fixated left first tarsometatarsal joint arthrodesis. 2. Mild left second tarsometatarsal osteoarthritis. Electronically signed by: Mina Miner M.D. Selam Orosco FERRY TERMINAL SUPERVISOR IMG XR PROCEDURES Final Resul t documented in this encounter Visit Diagnoses Not on filedocumented in this encounter Care Teams Towel Distributor Relationship Specialty Start Date End Date Daily Cruz MD PCP - General Family Medicine 08/01/19 03/03/21 documented as of this encounter
--- OUTSIDE RECORDS SUMMARY | 2024-02-21 19:38 | XMS_ITS | Encounter Summary ---
Author Organization [facility] Healthcare Address [address] [place] [address] Care Team Providers Care Manufacturing Applications Engineer Name Role Phone Daily Cruz MD Primary Care Provider [phone] Encounter Details Date Type Department Care Team (Latest Contact Info) Description 10/20/2020 9:23 AM CDT - 10/20/2020 2:20 PM CDT Hospital Encounter [facility] [address] [place] [id number] [place] [id number] [address] Discharge Disposition: Discharge to home or self [...] on file Legal Sex Female 3:37 PM WINDOWS SYSTEMS ARCHITECT Gender Identity Female 03/02/2020 4:27 PM WINDOWS SYSTEMS ARCHITECT Sexual Orientation Straight 07/10/2019 11 :13 PM CDT documented as of this encounter Last Filed Vital Signs Vital Sign Reading Time Taken Comments Blood Pressure 108/74 10/20/2020 1:55 PM CDT Pulse 59 10/20/2020 2:00 PM CDT Temperature 36.6 ??C (97.9 ??F) 10/20/2020 2:00 PM CD T Respiratory Rate 24 10/20/2020 2:00 PM CDT Oxygen Saturation 93% 10/20/2020 2:00 PM CDT Inhaled Oxygen Concentration - - Weight 126.4 kg (278 lb 9.6 oz) 10/20/2020 9:26 AM CDT Height 170.2 cm (5' 7 ) 10/20/2020 9:26 AM CDT Body Mass Index 43.63 10/20/2020 9:26 AM CDT documented in this encounter Discharge Diagnoses Diagnosis Pain in left knee - PAIN IN LEFT KNEE Other disorders of patella, left knee - OTHER DISORDERS OF PATELLA, LEFT KNEE Chronic obstructive pulmonary disease, unspecified (HCC) - CHRONIC OBSTRUCTIVE PULMONARY DISEASE, UNSPECIFIED Gastro-esophageal reflux disease without esophagitis - GASTRO-ESOPHAGEAL REFLUX DISEASE WITHOUT ESOPHAGITIS Unspecified osteoarthritis, unspecified site - UNSPECIFIED OSTEOARTHRITIS, UNSPECIFIED SITE Obesity, unspecified - OBESITY, UNSPECIFIED snf (current) use of non-steroidal anti-inflammatories (nsaid) - DETENTION (CURRENT) USE OF NON-STEROIDAL ANTI-INFLAMMATORIES (NSAID) snf (current) use of hormonal contraceptives - SIGN WIRER (CURRENT) USE OF HORMONAL CONTRACEPTIVES snf (current) use of inhaled steroids - DETENTION (CURRENT) USE OF INHALED STEROIDS snf (current) use of aspirin - SIGN WIRER (CURRENT) USE OF ASPIRIN Other intermediate card tender (current) drug therapy - OTHER SIGN WIRER (CURRENT) DRUG THERAPY Personal history of peptic ulcer disease - PERSONAL HISTORY OF PEPTIC ULCER DISEASE Allergy status to narcotic agent - ALLERGY STATUS TO NARCOTIC AGENT documented in this encounter Discharge Instructions * Discharge Instructions* Bonita Thrasher RN - 10/20/2020 1:14 PM CDT PATIENT DISCHARGE INSTRUCTIONS Diagnosis: Post-op Diagnosis * Left knee pain, unspecified chronicity [M25.562] * Patellar maltracking, 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 Do not make sign/authorize major decision for 24 hours. A responsible adult must be present for the first 24 hours after surgery. Have assistance with ambulation for first 24 hours after surgery Procedure: Procedure(s): LEFT KNEE DIAGNOSTIC ARTHROSCOPY WITH FAT PAD DEBRIDEMENT, CHONDROPLASTY OF THE PATELLA AND LATERALRETINACULAR RELEASE Significant Findings: Inflamed fat pad, tight lateral retinaculum and chondrosis of the undersurface of the patella Weight Bearing Status Weight Bearing As Tolerated Activity Instructions Rest today and increase activity as tolerated tomorrow Keep extremity elevated as much as possible Use crutches or a walker to ambulate as needed for comfort and safety Ice Apply ice for no more than 20 minutes every 2 hours as needed for pain and swelling. Medications Continue all home medications Oxcodone as needed for pain Take over the counter Tylenol per the instructions on the bottle as needed for pain. Do not take this medication if you have liver disease. Take over the counter Ibuprofen (Mortin) or Naproxen (Aleve) per the instructions on the bottle as needed for pain if your are not allergic to these medications. Do not take these medications if you have kidney disease or a history of stomach ulcers. Dressing Care Remove Dressin days. Do not put any ointments, oils or lotions on the incisions. Bathing You may shower once the dressing is removed. Keep wounds covered while showering until follow-up with Dr. Morel. No baths, soaks hot tubs, or swimming pools for 3 weeks after surgery. Physical Therapy :Do the home exercise program in your folder until follow-up in the office. Additional Information: If you experience fevers, chills, drainage from incision site, or increasing redness around incision, please call [phone]. Follow-Up Appointment: You are scheduled to follow-up with Dr. Morel on 11/02/20 at 4:00 pm at: [facility] [id number] [address] If you need to change this appointment, please call [phone] Morel's assistant to the director or call the scheduling office at [phone]. documented in this encounter Medications at Time of Discharge acetaminophen (TYLENOL) 500 mg tablet Take 1,000 mg by mouth every 6 (six) hours as needed for pain 2 albuterol HFA (PROVENTIL HFA,VENTOLIN HFA,PROAIR HFA) 90 mcg/actuation inhaler Inhale 2 puffs every 6 (six) hours as needed 2 aspirin/acetamino phen/caffeine (EXCEDRIN EXTRA STRENGTH ORAL)Indications: headaches Take 2 tablets by mouth as needed 2 budesonide-formot Erica (Symbicort) 160-4.5 mcg/actuation inhalerIndication s:Reactive airway disease that is not asthma Inhale 2 puffs 2 (two) times a day Rinse mouth with water after use. Do not swallow. 1 Inhaler 2 04/22/2020 2 bumetanide (BUMEX) 1 mg tabletIndications :Fluid retention TAKE 1 TABLET BY MOUTH TWICE A DAY 60 tablet 11 09/18/[address] (VOLTAREN) 75 mg EC tabletIndications [...] 1 each by intrauterine route once 3 ondansetron (ZOFRAN) 4 mg tablet Take 1 tablet (4 mg total) by mouth every 8 (eight) hours as needed for nausea or vomiting 20 tablet 10/16/2020 2 oxyCODONE (ROXICODONE) 5 mg immediate release tabletIndications :Pain TAKE 1 TABLET EVERY 4-6 HOURS NEEDED FOR PAIN 20 tablet 10/20/2020 2 pregabalin (LYRICA) 75 mg capsuleIndication s:Leg cramping [...] 05/20/2020 2 documented as of this encounter Ordered Prescriptions Prescription Sig Dispense Quantity Refills Last Filled Start Date End Date scopolamine 1 mg over 3 days patch 3 dayIndications:Prev ention of Post-Operative Nausea and Vomiting Place 1 patch on the skin once for 1 dose 1 patch 10/09/2020 10/09/2020 documented in this encounter Discharge Disposition Disposition Code Departure Means Destination Discharge to home or self care documented in this encounter H&P Notes * Devika Meadows NP - 10/20/2020 9:26 AM CDT Outpatient Pre-Procedure History and Physical Subjective Patient is a 30 y.o. female with chief complaint of left knee pain. 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 ADHD (attention deficit hyperactivity disorder) ??? Anxiety ??? Arthritis ??? Brain concussion 2010, 2010 ??? Chronic bronchitis (CMS/HCC) ([facility]) ??? Depression ??? Gastric reflux ??? GERD (gastroesophageal reflux disease) PRN tums ??? IIH (idiopathic intracranial hypertension) Pseudotumor cerebri. reports last spinal tap 2017. currently following with PCP, previously has followed with neuro ??? Irritability ??? Jaundice / dough puncher ??? Kidney stone 2019 ??? Low back [...] URI. ??? Seasonal allergies ??? Seizures (CMS/HCC) ([facility]) off medication since 2018 with no further [...] 2017 ??? TONSILLECTOMY ??? WISDOM TOOTH EXTRACTION Medications Prior to Admission Medication Sig Dispense Refill Last Dose ??? acetaminophen (TYLENOL) 500 mg tablet Take 1,000 mg by mouth every 6 (six) hours as needed for pain Past Month at Unknown time ??? albuterol HFA (Ventolin HFA) 90 mcg/actuation inhaler Inhale 2 puffs every 6 (six) hours as needed Past Month at Unknown time ??? aspirin/acetaminophen/caffeine (EXCEDRIN EXTRA STRENGTH ORAL) Take 2 tablets by mouth as needed10/06/2020 at Unknown time ??? bumetanide (BUMEX) 1 mg tablet TAKE 1 TABLET BY MOUTH TWICE A DAY (Patient taking differently: Take 1 mg by mouth 2 (two) times a day ) 60 tablet 11 10/06/2020 at Unknown time ??? diclofenac DR (VOLTAREN) 75 mg EC tablet TAKE 1 TABLET BY MOUTH TWICE A DAY NEEDED FOR PAIN (Patient taking differently: Take 75 mg by mouth 2 (two) times a day ) 60 tablet 1 10/06/2020 at Unknown time ??? fluticasone propionate (FLONASE) 50 mcg/actuation nasal spray Administer 2 sprays into each nostril daily (Patient taking differently: Administer 2 sprays into each nostril as needed ) 16 g 0 Past Month at Unknown time ??? galcanezumab-gnlm (Emgality Pen) 120 mg/mL pen injector Inject 120 mg under the skin every 30 (thirty) days (Patient taking differently: Inject 120 mg under the skin every 30 (thirty) days ) 1 mL0 Past Month at Unknown time ??? levonorgestreL (KYLEENA) IUD 1 each by intrauterine route once 10/06/2020 at Unknown time ??? pregabalin (LYRICA) 75 mg capsule Take 1 capsule (75 mg total) by mouth 2 (two) times a day (Patient taking differently: Take 75 mg by mouth 3 (three) times a day ) 60 capsule 5 10/06/2020 at Unknown time ??? SUMAtriptan (IMITREX) 50 mg tablet TAKE 1 TABLET BY MOUTH ONCE NEEDED FOR MIGRAINE. MAY REPEAT DOSE AFTER 2 HOURS (Patient taking differently: Take 50 mg by mouth once as needed ) 9 tablet 0 Past Month at Unknown time ??? ubrogepant (Ubrelvy) 50 mg tablet Take 1 tablet (50 mg total) by mouth once as needed for migraine May repeat dose once in 2 hours if no relief. Do not exceed 2 doses in 24 hours. (Patient takingdifferently: Take 50 mg by mouth once as needed for migraine May repeat dose once in 2 hours if no relief. Do not exceed 2 doses in 24 hours.) 10 tablet 0 Past Month at Unknown time ??? budesonide-formoteroL (Symbicort) 160-4.5 mcg/actuation inhaler Inhale 2 puffs 2 (two) times a day Rinse mouth with water after use. Do not swallow. (Patient taking differently: Inhale 2 puffs asneeded Rinse mouth with water after use. Do not swallow.) 1 Inhaler 2 More than a month at Unknown time ??? dxrkfyvwsu-qsxlbswnrgrso-tymwexnc-codeine (FIORICET WITH CODEINE) 34-733-16-30 mg per capsule Take 1 capsule by mouth every 6 (six) hours as needed for headaches or migraine 30 capsule 0 ??? levocetirizine (XYZAL) 5 mg tablet Take 1 tablet (5 mg total) by mouth daily 30 tablet 0 More than a month at Unknown time ??? ondansetron (ZOFRAN) 4 mg tablet Take 1 tablet (4 mg total) by mouth every 8 (eight) hours as needed for nausea or vomiting 20 tablet 0 Allergies Allergen Reactions ??? Acetazolamide Swollen tongue [...] SEIZURE ACTIVITY ??? Oxycodone-Acetaminophen Nausea And Vomiting Social History Tobacco Use ??? Smoking status: Never Smoker ??? Smokeless tobacco: Never Used Substance Use Topics ??? Alcohol use: Not Currently Alcohol/week: 0.0 standard drinks Comment: Maybe a drink every few months Social History Substance and Sexual Activity Drug Use Yes ??? Types: Alcohol Comment: ~3 drinks/month Vitals: 10/06/20 1715 10/20/20 0926 10/20/20 0940 BP: 132/81 Pulse: 77 Temp: 36.2 ??C (97.2 ??F) TempSrc: Temporal SpO2: 98% Weight: 124.7 kg (275 lb) 126.4 kg (278 lb 9.6 oz) Height: 170.2 cm (5' 7 ) 170.2 cm (5' 7 ) Review of Systems: Review of systems per HPI and otherwise all other systems are negative Physical exam: Lungs: clear to auscultation bilaterally Heart: regular rate and rhythm, S1, S2 normal, no murmur, click, rub or gallop Neurologic: Alert and oriented x4, grossly intact Echo 07/29/20: Interpretation Summary Left ventricular systolic function is normal. Ejection Fraction = 55-60%. The right ventricular systolic function is normal. Right ventricular systolic pressure is normal. There is no pericardial effusion. E/E prime ratio is <8 suggesting normal pulmonary wedge pressure and no LV diastolic dysfunction. Trace to mild pulmonic valvular regurgitation. Trace to mild tricuspid regurgitation Trace mitral regurgitation. Urine hCG- NEG Devika Meadows NP Cosigned by Logan Morel MD at 10/20/2020 11:11 AM CDT documented in this encounter Miscellaneous Notes * Brief Op Note - Heber Lopez MD - 10/20/2020 11:55 AM CDT Operative Progress Note Surgical Team: Surgeon(s) and Role: * Logan Morel MD - Primary * Heber Lopez MD - Resident - Assisting Anesthesiologist: Angy Olmedo MD PLANT PATHOLOGY TEACHER: Sierra Lerma CRNA Motion Picture Cameraman: Marvin Lowery RN; Ying Lemons RN Scrub: Matilde Johnson RN; Ash Choi RN DATE OF SURGERY : 10/20/2020 Preoperative Diagnosis: Pre-op Diagnosis * Left knee pain, unspecified chronicity [M25.562] * Patellar maltracking, 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] Postoperative Diagnosis: Post-op Diagnosis * Left knee pain, unspecified chronicity [M25.562] * Patellar maltracking, 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] Procedure(s): Procedure(s) (LRB): LEFT KNEE DIAGNOSTIC ARTHROSCOPY WITH FAT PAD DEBRIDEMENT, CHONDROPLASTY OF THE PATELLA AND LATERALRETINACULAR RELEASE (Left) Operative Findings: Same as above Estimated Blood Loss: 50 mL Intraoperative Fluids: See anesthesia report Specimens: No specimen collected in procedure Implants: Nothing was implanted during the procedure Blood/Blood Products Transfused: 0 mls Complications: None Condition on Discharge from the operating room was stable Heber Lopez MD Date: 10/20/2020 Time: 12:33 PM Cosigned by Logan Morel MD at 10/20/2020 1:13 PM CDT * Op Note - Logan Morel MD - 10/20/2020 11:30 AM CDT Operative Note Attending Surgeon: Logan Morel MD Surgical Assistants: Surgeon(s) and Role: * Logan Morel MD - Primary * Heber Lopez MD - Resident - Assisting Date of Surgery: 10/20/2020 Preoperative Diagnosis: Pre-op Diagnosis * Left knee pain, unspecified chronicity [M25.562] * Patellar maltracking, 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 We talked about doing an arthroscopic evaluation of her knee to address her inflamed fat pad seen on MRI. We also talked about doing a lateral retinacular release given her lateral patellar compression syndrome. She understands the risk of surgery including infection, nerve or vessel injury, skin injury, persistent pain as well as other things we cannot predict related to surgery. She wanted to proceed with surgery. Operative Findings: The patient was seen in the preop holding area where consent was reviewed and signed. The left kneewas initialed. The patient was taken to the operating the transfered safely to the operative table.Once in the operative suite the patient was anesthetized by Anesthesia. Once under anesthesia, the left knee was prepped and draped sterilely. I performed a diagnostic arthroscopy through a anterolateral portal. I created a anterior medial portal under spinal needle localization. A superolateral portal was created for outflow. Upon entering the joint, I evaluated the articular cartilage and the meniscus with the following findings: Patella: chondrosis (Grade 2 with a cartilage flap on the medial facet) Trochlea: normal cartilage Medial femoral condyle: normal cartilage Medial tibial plateau: normal cartilage Lateral femoral condyle: normal cartilage Lateral tibial plateau: normal cartilage Loose body: none The medial meniscus was normal. The lateral meniscus was normal. The anterior cruciate ligament was intact. There is a thickened fat pad anteriorly. There was a tight lateral retinaculum. After the diagnostic arthroscopy, the fat pad was debrided with a shaver. We also performed a chondroplasty of the undersurface of the patella to remove the loose chondral flap on the medial facet. We then undermined the skin between the lateral portal and the superolateral portal to create a pocket of subcutaneous space. We then used an arthroscopic Bovie to perform a lateral retinacular release. Once the release was performed, she had positive 45?? of patellar tilt. The patellar pressure laterally are while viewing arthroscopically was opened as well. I then drained the arthroscopy fluid of the knee joint. Suture closure was performed for the portals. Dry sterile dressings were applied in standard fashion. The patient was awakened transfer safely off the operating table and taken to the postanesthesia care unit in good condition. Estimated Blood Loss: 5 mL Specimens: No specimen collected in procedure Complications: None Condition on Discharge from the operating room was stable Logan Morel MD Date: 10/20/2020 Time: 12:30 PM TEACHING ATTESTATION : I was present and I participated in all portions of the procedure except skin closure and remained immediately available during all remaining portions of the case. * Perioperative Nursing Note - Ally Ambrose RN - 10/20/2020 9:31 AM CDT Pt's sister Annie will be with pt and will care for pt for 24 hours post surgery. * Pre-Procedure Instructions - Eckelkamp, Michelle C., RN - 10/14/2020 7:56 AM CDT We are pleased that you and your doctor have chosen [facility] for your surgery. We hope the following information will help make your visit a pleasant one. The name of the building is [facility] and [facility] in [place]. Directions to facility (address [place] [address] [place] [address] [address] When you enter the building, look directly to your left, you will see 2 glass double doors. These double doors say [address]. Go through those double doors and check in with the administrative assistant receptionist. Patient has own crutches and knows how to use them. Bring pillows, leave in car. Patient has ice pack for home. Pt has [employer] ice machine. Will need Urine sample a.m. Of surgery. Please let the administrative assistant receptionist know if you need to empty your bladder when you arrive. Wear loose fitting clothes. Something with an elastic waist on the bottom, such as gym shorts or sweat pants depending on the weather. T-shirt on top or a shirt with a loose sleeve unless you are having shoulder surgery then wear a loose fitting button down shirt or a shirt that zips up the front. DO NOT eat or drink ANYTHING after Midnight, unless instructed to take medication by STAFF SONOGRAPHER at CPAP. Nogum, no mints, no candy, no cough drops, CBD oil, no marijuana, no Chewing tobacco, or vaping. No ice or water. You may brush your teeth, just make sure you spit it all out. Pt's. Sister or boyfriend will be with patient and care for patient for the first 24 hours post-op. Pt. Instructed to arrive at 0930 for 1130 procedure. Procedure is scheduled for 1 hour(s). Explained to patient, if you develop any symptoms of fever, chills, headache, cough, sore throat, body aches or is exposed to anyone that has been diagnosed, tested or quarantined for the COVID-19 you will not be allowed to enter the building or to have your surgery per anesthesia's guidelines. Explained to patient that all patient's and visitor's will be screened at the front door upon entering the building. Explained to patient to please call the morning of surgery, any time after 5:30 a.m. if you or your caregiver develops any of these symptoms or is exposed to anyone that has been diagnosed, tested or quarantined for COVID-19. Pt. Reports understanding. Once your physician has completed your surgery, he will call your caregiver to notify them your surgery is complete, and you are heading to the Recovery room. Your caregiver will not be called back to be with you until you are awake and ready for discharge. The nurse who is caring for you will callyour caregiver to come back to be with you for discharge instructions. Explained to patient that the self-serve cafe is across the renee from the surgery center. Explainedto patient if their caregiver would like anything to eat or drink, they may bring their own or purchase it from the refreshment area. Explained to pt. About BMI limit. Explained to pt that we need an accurate weight and that they will be weighed DOS and if their BMI is above our limit they may be cancelled. Pt. Reports understanding. Record reviewed by Jessica Kenney NP Pt. Cleared for surgery at the [facility]. * Pre-Procedure Instructions - Andree Acosta NP - 10/08/2020 10:07 AM CDT [facility] Location: [facility] CPAP The night before your surgery: * Do not eat or drink anything after midnight. This includes candy, mint, gums, chewable antacids (TUMS, Rolaids) and cough drops * Do not smoke after midnight the night before surgery. It is best to stop smoking now to improve your health. The morning of your surgery: * You may brush your teeth and rinse your mouth out. * Do not glue your dentures. * Do not wear jewelry, body piercings, makeup, hairpins, false eyelashes or contact lenses to the hospital. * Leave any valuables at home or with your family. * If you are still having menstrual cycles, you should come with a full bladder on the morning of surgery in order to provide a urine sample. * If you have an implantable device with a remote, bring the remote with you on the day of surgery. * If having surgery at [facility], you may want to bring a credit card if you want to use our Mobile Pharmacy for your discharge medications. Mobile pharmacy is not available at [facility], the [facility], or the [facility]. Outpatient Surgery: * You must have a responsible adult drive you home and stay with you for 24 hours after your surgery * You cannot be alone at home or in a hotel * Please call your surgeon's office if you do not have someone to drive you home and/or stay with you after surgery * Please bring any items you may need to spend the night in the hospital. Sometimes patients need to be cared for in the hospital overnight. Instructions For Your Medications: Pre-Surgery Instructions: Medication Instructions ??? acetaminophen (TYLENOL) 500 mg tablet Take on day of surgery if needed ??? albuterol HFA (Ventolin HFA) 90 mcg/actuation inhaler Take on day of surgery if needed ??? aspirin/acetaminophen/caffeine (EXCEDRIN EXTRA STRENGTH ORAL) Stop taking 1 week prior to surgery ??? bumetanide (BUMEX) 1 mg tablet Don't take on day of surgery ??? diclofenac DR (VOLTAREN) 75 mg EC tablet Instructions per surgeon ??? fluticasone propionate (FLONASE) 50 mcg/actuation nasal spray Take on day of surgery if needed ??? galcanezumab-gnlm (Emgality Pen) 120 mg/mL pen injector Per usual schedule ??? levonorgestreL (KYLEENA) IUD ??? pregabalin (LYRICA) 75 mg capsule Take morning of surgery ??? SUMAtriptan (IMITREX) 50 mg tablet Don't take on day of surgery ??? ubrogepant (Ubrelvy) 50 mg tablet Don't take on day of surgery ??? budesonide-formoteroL (Symbicort) 160-4.5 mcg/actuation inhaler Take morning of surgery ??? cscurrzgnb-otamedekcvjfj-ayhkemez-codeine (FIORICET WITH CODEINE) [id number] mg per capsule Don't take on day of surgery ??? levocetirizine (XYZAL) 5 mg tablet Don't take on day of surgery General Instructions For Medications: ?? * If prescribed a non-steroidal anti-inflammatory such as Meloxicam, Celebrex, or Naproxen by your surgeon, take as prescribed and follow your surgeon's instructions for all other non-steroidal anti-inflammatory medications prior to your surgery. ?? For medications that you are instructed to take on the morning of surgery, take the medications with a few sips of water. ?? Stop all of these medications 7-14 days prior to your surgery: Vitamin E, Herbal medicines, DietPills ?? If you use inhalers, please bring them with you on the day of your procedure. ?? If you have pain, you may take tylenol (acetaminophen). Do not take more than 6 tablets or 3000 mg (3 g) within a 24 period. ?? [facility], a scopolamine patch will be sent to your pharmacy to help prevent nausea after surgery. After your shower the night prior to surgery, placethe patch behind your ear on the opposite side of your planned operation. Wash your hands after placing the patch. If you touch your eyes after you place the patch it may cause your pupils to dilate.You may leave the patch on for up to 3 days. If you have difficulty emptying your bladder while thepatch is in place, remove the patch, throw it away, and your symptoms should resolve. Call your surgeon and the CPAP clinic if any of the following happens before surgery: ?? Any changes in your health ?? You have a fever ?? You have any signs of an infection (chest, urinary tract or tooth) ?? You have been to the Emergency Room or were in the hospital ?? You have started taking any new medications ?? You have questions about a bowel prep or special diet before surgery * Perioperative Nursing Note - Tracy Pandya RN - 10/06/2020 5:20 PM CDT [facility] Pre[facility] and Planning Perioperative Nursing Note Telephone Preoperative Evaluation ([facility]) - TELEPHONE ONLY, NO PHYSICAL EXAM Date: 10/06/20 Vitals: 10/06/20 1715 Weight: 124.7 kg (275 lb) Height: 170.2 cm (5' 7 ) CHEST CIRCUMFERENCE: Social History Tobacco Use Smoking Status Never Smoker Smokeless Tobacco Never Used Substance and Sexual Activity Drug Use Never Alcohol Use How often do you have a drink containing alcohol?: Monthly or less How many drinks containing alcohol do you have on a typical day when you are drinking?: 1 or 2 How often do you have six or more drinks on one occasion?: Never Outpatient Medications Marked as Taking for the 10/20/20 encounter (Hospital Encounter) Medication Sig Dispense Refill ??? acetaminophen (TYLENOL) 500 mg tablet Take 1,000 mg by mouth every 6 (six) hours as needed for pain ??? albuterol HFA (Ventolin HFA) 90 mcg/actuation inhaler Inhale 2 puffs every 6 (six) hours as needed ??? aspirin/acetaminophen/caffeine (EXCEDRIN EXTRA STRENGTH ORAL) Take 2 tablets by mouth as needed ??? bumetanide (BUMEX) 1 mg tablet TAKE 1 TABLET BY MOUTH TWICE A DAY (Patient taking differently: Take 1 mg by mouth 2 (two) times a day ) 60 tablet 11 ??? diclofenac DR (VOLTAREN) 75 mg EC tablet TAKE 1 TABLET BY MOUTH TWICE A DAY NEEDED FOR PAIN (Patient taking differently: Take 75 mg by mouth 2 (two) times a day ) 60 tablet 1 ??? fluticasone propionate (FLONASE) 50 mcg/actuation nasal spray Administer 2 sprays into each nostril daily (Patient taking differently: Administer 2 sprays into each nostril as needed ) 16 g 0 ??? galcanezumab-gnlm (Emgality Pen) 120 mg/mL pen injector Inject 120 mg under the skin every 30 (thirty) days (Patient taking differently: Inject 120 mg under the skin every 30 (thirty) days ) 1 mL0 ??? levonorgestreL (KYLEENA) IUD 1 each by intrauterine route once ??? pregabalin (LYRICA) 75 mg capsule Take 1 capsule (75 mg total) by mouth 2 (two) times a day (Patient taking differently: Take 75 mg by mouth 3 (three) times a day ) 60 capsule 5 ??? SUMAtriptan (IMITREX) 50 mg tablet TAKE 1 TABLET BY MOUTH ONCE NEEDED FOR MIGRAINE. MAY REPEAT DOSE AFTER 2 HOURS (Patient taking differently: Take 50 mg by mouth once as needed ) 9 tablet 0 ??? ubrogepant (Ubrelvy) 50 mg tablet Take 1 tablet (50 mg total) by mouth once as needed for migraine May repeat dose once in 2 hours if no relief. Do not exceed 2 doses in 24 hours. (Patient takingdifferently: Take 50 mg by mouth once as needed for migraine May repeat dose once in 2 hours if no relief. Do not exceed 2 doses in 24 hours.) 10 tablet 0 Implants Screw Synthes 207.740 4mm 5mm 40mm Cannulated Self Tap Self Drill Small Hexagonal - S0 - [id number] - Implanted (Left) Foot Inventory item: SYNTHES 207.740 4mm 5mm 40mm Cannulated Self Tap Self Drill Small Hexagonal Model/Cat number: [id number] Serial number: 0 Tobacco Shaker: Synthes Size: 4.0x40 As of 07/16/2019 Status: Implanted Synthes 207.730 4mm 5mm 30mm Cannulated Self Tap Self Drill Small Hexagonal - S0 - [id number] - Implanted (Left) Foot Inventory item: SYNTHES 207.730 4mm 5mm 30mm Cannulated Self Tap Self Drill Small Hexagonal Model/Cat number: [id number] Serial number: 0 Tobacco Shaker: Synthes Size: 4.0x30 As of 07/16/2019 Status: Implanted Synthes 207.630 4mm 5mm 1.35mm 30mm Cannulated Self Tap Self Drill Small - S0 - [id number] - Implanted (Left) Foot Inventory item: SYNTHES 207.630 4mm 5mm 1.35mm 30mm Cannulated Self Tap Self Drill Small Model/Cat number: [id number] Serial number: 0 Tobacco Shaker: Synthes Size: 4.0x30 As of 07/16/2019 Status: Implanted SKIN Piercings Remaining: Yes Wound (LDAs) Type of Wound (LDA): (none) SCREENINGS STOP-Bang Total Score: 2 Capo index score: 100 NUTRITION PATIENT CARE PLANNING Advance Directives (For Healthcare) Have you reviewed your Advance Directive and is it valid for this stay?: Not applicable Advance Directive: Patient does not have advance directive Communication/Cell Inspector Needs Communication Needs: Glasses, Contacts Patient's Preferred Language: Bermudian Does caregiver's language differ from patient's?: No Is an bell cleaner needed? : No Assistive Devices/DME: Eyeglasses Hearing - Right Ear: Functional Hearing - Left Ear: Functional Discharge Planning Type of Residence: Private residence Living Arrangements: Spouse/significant other Support Systems: Spouse/significant other Patient expects to be discharged to:: Private residence COVID Screening Covid-19 Screening In the last 10 days have you had any new or worsening cough, SOB, fever (>=100F), body aches, loss of taste or smell, diarrhea or vomiting, or sore throat?: No Have you had close contact with anyone with confirmed or suspected COVID-19 in the past 2 weeks?: No Do you live in or work in a congregate living facility (ex. assisted living/detention facility, nursing home, nursing home)?: No Have you tested positive for COVID-19 within the last 14 days?: No Have you previously tested positive for COVID-19? No Have you had a COVID -19 exposure within the past 14 days? No Were both or all people exposed wearing masks (cloth, isolation, surgical or N95)? No TESTING PLAN-See Instructions for plan We recommend you Self-Isolate after COVID Testing: Stay at home, if possible until your surgery date. Maintain a 6 foot distance from other people (social distancing). Avoid touching your eyes, nose and mouth with unwashed hands. Wash your hands often with soap and water for at least 20 seconds. Use an alcohol- based hand construction management assistant that contains at least 60% alcohol if soap and water are not available. ADDITIONAL COMMENTS/ FOLLOW UP * Pre-Procedure Instructions - Tracy Pandya RN - 10/06/2020 5:19 PM CDT PRE-SURGICAL INSTRUCTIONS ??? General Information ?? Surgery location provided to patient. ?? Arrival time and surgical time will be provided by your surgeon. ?? Wear something clean, loose, comfortable and easy to get in and out of. ?? Leave your valuables and any jewelry at home (No metal or piercings are allowed in the operatingroom) ?? Bring your insurance card, a photo ID (like a [employer] Grinder's license) and a method of payment for any insurance copay, deductible, or copay for discharge medications. ?? Bring a complete, up to date list of all of your medications including any over the counter medications or supplements you may take. ? How To Prepare Your Skin For Surgery Antiseptic/antibacterial soap will decrease the amount of germs on your skin. It is important to minimize the risk of getting an infection by doing the following: ?? Change all the linens on the bed the night before surgery so you are sleeping on clean fresh sheets and pillowcases. ?? Shower the evening before and the morning of surgery with an antibacterial soap such as Dial or a surgical soap known as chlorhexidine (Hibiclens). You can purchase this soap at any pharmacy or department store or come by our CPAP clinic and we will give it to you free of charge. Do not use thissoap on your face or hair. ?? Wash your hair and face with your regular shampoo (no conditioners) and facial cleanser. ?? Take a shower using ?? cup (2 oz.) of antiseptic soap applied to a clean fresh washcloth. Scrub your entire body from the neck down. If you can't reach the surgical site, such as your back, have someone help you with your shower. Step out of the water and leave soap on your skin for 2 minutes prior to rinsing off. Rinse thoroughly and dry yourself off with a clean fresh dry towel. ?? Wear clean clothes or pajamas to sleep in and on morning of surgery. ?? Nothing extra on the skin or hair such as deodorant, makeup, hair products, lotions, powders, Vaseline, creams, or perfumes the evening before and the morning of surgery. ?? The morning of the surgery repeat the shower process with the remaining ?? cup (2 oz.) of surgical scrub using another fresh wash cloth and towel. ?? Do not shave the morning of surgery. ?? REMEMBER no deodorant, make-up, lotions, powders, creams, Vaseline, oils, conditioners or hair products the morning of the surgery. COVID TESTING PLAN COVID Test Request Placed in Epic to [facility]. HOLIDAY hours may vary at testing site. Test to be performed on 10/17/20 at [facility] ([facility]viously [facility] [place] [address], M-F 8:30a-4:30p, Sat/Sun 8a-12:30p, Call once on [phone]. Telephone assessment performed. Patient states that they are fully vaccinated and provided the following vaccination information: Tobacco Shaker pfizer, Vaccination Date(s) 08/25/20 and 09/15/20COVID Vaccination Record Card unable to be visually verified during assessment. Patient was instructed to bring their COVID Vaccination Record Card on the day of surgery for verification of their vaccination status. If you have COVID testing or should have COVID testing for your surgery/procedure, please read below section: If you need to reschedule your COVID test to a different location or if your surgery gets rescheduled, you MUST call [phone] Monday-Monday 8am-4:30pm to get your COVID testing rescheduled or your lab order will not be available at Testing Sites. COVID Testing is only valid for up to 96 hours prior to surgery date, unless otherwise specified. If you are unable to reach staff at the above phone number, please call the CPAP Staff at [phone]. This number cannot order a lab test, but can attempt to contact the above number/staff to assist you. We are available Monday-Monday 8am-4:30pm . We recommend you Self-Isolate after COVID Testing: Stay at home, if possible until your surgery date. Maintain a 6 foot distance from other people (social distancing). Avoid touching your eyes, nose and mouth with unwashed hands. Wash your hands often with soap and water for at least 20 seconds. Use an alcohol- based hand construction management assistant that contains at least 60% alcohol if soap and water are not available. All patients should read below section: All visitors/patients are being asked to wear a clean mask when entering the hospital. COVID 19 Updates & Visitor Policy: Please access [email or web address] for the most updated information. For MyChart information, to activate account or password recovery, please go to [email or web address] or call [phone] (toll-free: [phone]). Information for Suicide Prevention: National Suicide Prevention Lifeline (0-973-281-TVPG (9229)). Surgery Times: For patients [facility] @ [facility], if your surgeon's office has not notified you of your surgery time by NOON THE BUSINESS DAY BEFORE your surgery, please call the surgery center [phone]. documented in this encounter Plan of Treatment [...] Procedure Name Priority Date/Time Associated Diagnosis Comments ARTHROSCOPY KNEE 10/20/2020 11:3 0 AM CDT Left knee pain, unspecified chronicity Patellar maltracking, left Special Needs h/o PONV, motion/car sickness, seizures - last 2018, pseudo tumor cerebri, memory loss, chronic bronchitis POCT HCG, URINE Routine 10/20/2020 10:26 AM CDT POCT PREOP SCREEN (UAZ-LF-HYF-BUN-CR -HBG-HCT) Routine 10/20/2020 10:09 AM CDT documented in this encounter Results * POCT hCG, urine (10/20/2020 10:26 AM CDT) HCG, ur, POC Negative Lot Number 123 QC Backgroud Clear Acceptable QC Control Line Acceptable Urine 10/20/2020 10:2 6 AM CDT us Chavo Cespedes MD POINT OF CARE TEST ORDERABLES Final Result * POCT Preop screen (eowfl-Ir-Lsl-DTN-Ej-Piu-Hct) (10/20/2020 10:09 AM CDT) K POC 4.2 3.3 - 4.9 mmol/L [facility] Comment: Interpretive Data Unable to assess hemolysis. ??Invitro hemolysis causes falsely elevated potassium. Current Interpretive Data was last revised on 2019. Blood 10/20/2020 10:0 9 AM CDT 10/20/2020 10:09 AM CDT us Logan Morel MD LAB POCT ORDERABLES - DE VICE Final Result [facility] [place] [address] documented in this encounter Visit Diagnoses Diagnosis Acute pain of left knee Patellar maltracking, left documented in this encounter Admitting Diagnoses Diagnosis Acute pain of left knee Patellar maltracking, left documented in this encounter Administered Medications Inactive Administered Medications - up to 3 most recent administrations Medication Order MAR Action Action Date Dose Rate Site fentaNYL (SUBLIMAZE) preservative free syringe 25 mcg 25 mcg, intravenous, Every 5 min PRN, 1st line for pain, uncontrolled pain on PACU admission to PACU., Starting on Mon10/20/20 at 1244, For 4 doses, Phase I, Use as 1st line for very severe pain upon admission to PACU, dose not to exceed 100 mics. Then proceed to second line pain meds after consulting with anesthesiologist., Indications: PainIndications:Pain Given 10/20/2020 1:17 PM CDT 25 mcg Given 10/20/2020 12:57 PM CDT 25 mcg Given 10/20/2020 12:48 PM CDT 25 mcg Lactated Ringer's (LR) infusion 30 mL/hr, intravenous, Continuous, Starting on Mon10/20/20 at 1015, Use a 500 ml bag for End Stage Renal Disease Patients New Bag 10/20/2020 12:05 PM CDT Rate/Dose Verify 10/20/2020 11:25 AM CDT 30 mL/ hr New Bag 10/20/2020 10:12 AM CDT 30 mL/hr 30 mL/hr lidocaine PF (XYLOCAINE) 10 mg/mL (1 %) preservative free injection 2-10 mg 2-10 mg (0.2-1 mL), other, Once as needed, pain with IV placement, Starting on Mon10/20/20 at 0931, For 1 dose, Pre-Op, Administer volume needed to infiltrate IV site. Given 10/20/2020 10:12 AM CDT 2 mg oxyCODONE (ROXICODONE) tablet 5 mg 5 mg, oral, As needed, post op pain, Starting on Mon10/20/20 at 1320, Phase I, Indications: PainIndications:Pain Given 10/20/2020 1:25 PM CDT 5 mg prochlorperazine (COMPAZINE) injection 5 mg 5 mg, intravenous, Every 10 min PRN, nausea, vomiting, Check with Anesthesiologist before administring, and ask about IV versus IM., Starting on Mon10/20/20 at 1244, For 2 doses, Phase I, If nausea/vomiting not relieved by ondansetron within 30 minutes or if ondansetron has been given within the last 6 hours. Given 10/20/2020 12:50 PM CDT 5 mg documented in this encounter Discontinued Medications Medication Sig Discontinue Reason Start Date End Da te butalbital-acetaminoph ec-spwkxtrt-tygprye (FIORICET WITH CODEINE) 85-119-76-30 mg per capsuleIndications:Int ractable chronic migraine without aura and with status migrainosus Take 1 capsule by mouth every 6 (six) hours as needed for headaches or migraine Stop Taking at Discharge 09/11/2020 10/20/2020 documented as of this encounter Historical Medications * This list may reflect changes made after this encounter. acetaminophen (TYLENOL) 500 mg tablet Take 1,000 mg by mouth every 6 (six) hours as needed for pain 12/06/2021 aspirin/acetamino phen/caffeine (EXCEDRIN EXTRA STRENGTH ORAL)Indications: headaches Take 2 tablets by mouth as needed 06/19/2021 added in this encounter Active and Recently Administered Medications Times are shown in CDT. Scheduled Medication Order 10/18/2020 10/19/2020 10/20/2020 ceFAZolin (ANCEF) 3,000 mg/30 mL in sterile water (premix) 3,000 mg (COMPLETED) 3,000 mg, intravenous, at 600 mL/hr, Administer over 3 Minutes, Once, On Mon10/20/20 at 1030, For 1 dose, Pre-Op, Administer within 60 minutes of incision., Indications: Prophylaxis, Surgical 1145 (Given - Provid er: Sierra Lerma CRNA) scopolamine patch 72 hour 1 patch 1 patch, transdermal, Administer over 72 Hours, Once, On Mon10/20/20 at 1015, For 1 dose, Pre-Op, Apply to beach-chair position shoulder surgery patients, and to patients with a history of PONV and/or Motion Sickness. Do NOT administer to patients with a history of BPH or Glaucoma. Consult Anesthesiologist with any questions. In case of urinary retention, remove patch immediately and clean patch site with alcohol., Indications: Motion Sickness, Prevention of Motion Sickness, Prevention of Post-Operative Nausea and Vomiting 1015 (Due) Continuous Medication Order 10/18/2020 10/19/2020 10/20/2020 Lactated Ringer's (LR) infusion 30 mL/hr, intravenous, Continuous, Starting on Mon10/20/20 at 1015, Use a 500 ml bag for End Stage Renal Disease Patients 1012 (New Bag - Prov ider: Ally Ambrose RN)1125 (Rate/Dose Verify - Provider: Sierra Lerma CRNA)1204 (Paused - Provider: Sierra Lerma CRNA - Comment: Switch to gravity)1205 (New Bag - Provider: Sierra Lerma CRNA)1222 (Anesthesia Volume Adjustment - Provider: Sierra Lerma CRNA)1348 (Stopped - Provider: Bonita Thrasher RN) Lactated Ringer's (LR) infusion 125 mL/hr, intravenous, Continuous, Starting on Mon10/20/20 at 1315, Phase I 1315 (Due) PRN Medication Order 10/18/2020 10/19/2020 10/20/2020 diphenhydrAMINE (BENADRYL) injection 12.5 mg 12.5 mg, intravenous, Administer over 1 Minutes, Every 5 min PRN, itching, other, For Nausea, administer 25 mg IV., Starting on Mon10/20/20 at 1244, For 4 doses, Phase I, Max cumulative dose 50 mg., Indications: Itching fentaNYL (SUBLIMAZE) preservative free syringe 25 mcg 25 mcg, intravenous, Every 5 min PRN, 1st line for pain, uncontrolled pain on PACU admission to PACU., Starting on Mon10/20/20 at 1244, For 4 doses, Phase I, Use as 1st line for very severe pain upon admission to PACU, dose not to exceed 100 mics. Then proceed to second line pain meds after consulting with anesthesiologist., Indications: Pain 1248 (Given - Provid er: Bonita Thrasher RN)1257 (Given - Provider: Bonita Thrasher RN)1317 (Given - Provider: Bonita Thrasher RN) hydrALAZINE (APRESOLINE) injection 5 mg 5 mg, intravenous, Administer over 2 Minutes, Every 5 min PRN, high blood pressure, Starting on Mon10/20/20 at 1244, Phase I, Max cumulative dose 20 mg. Dose if systolic BP greater than 180 AND heart rate less than 70., Indications: hypertension HYDROmorphone (DILAUDID) injection 0.2 mg 0.2 mg, intravenous, Administer over 2 Minutes, Every 5 min PRN, 2nd line for pain, breakthrough pain, Use as 2nd line pain med after consulting with anesthesiologist., Starting on Mon10/20/20 at 1244, For 5 doses, Phase I, Notify Anesthesiologist if total PACU dose reaches 1 mg, and pain score of 5/10 or higher, Indications: Chronic Pain with Opioid Tolerance, Severe Pain with Opioid Tolerance labetaloL (NORMODYNE,TRANDATE) injection 5 mg 5 mg, intravenous, Every 5 min PRN, high blood pressure, Starting on Mon10/20/20 at 1244, For 4 doses, Phase I, Max cumulative dose 20 mg. Dose if systolic blood pressure greater than 180 AND HR greater than 70. Lactated Ringer's (LR) irrigation (CANCELED) As needed, Starting on Mon10/20/20 at 1220, Intra-Op 1220 (Given - Provid er: Logan Morel MD) lidocaine PF (XYLOCAINE) 10 mg/mL (1 %) preservative free injection 2-10 mg (COMPLETED) 2-10 mg (0.2-1 mL), other, Once as needed, pain with IV placement, Starting on Mon10/20/20 at 0931, For 1 dose, Pre-Op, Administer volume needed to infiltrate IV site. 1012 (Given - Provid er: Ally Ambrose RN) meperidine (DEMEROL) preservative free injection 12.5 mg 12.5 mg, intravenous, Administer over 5 Minutes, Every 10 min PRN, shivering, Starting on Mon10/20/20 at 1244, For 2 doses, Phase I, Max cumulative dose 25 mg., Indications: Shivering naloxone (NARCAN) 0.4 mg/mL injection 0.04-0.4 mg 0.04-0.4 mg, intravenous, Once as needed, other, excessive sedation/respiratory depression, Starting on Mon10/20/20 at 1244, For 1 dose, Phase I, Dilute 0.4 mg with 9 mL NS (final concentration 0.04 mg/mL). For respiratory depression (respiratory rate less than 6), administer 0.4 mg IVP over 30 seconds. For excessive sedation administer 0.04 mg (1 mL) every 1 minute until desired level of alertness. Consult with Anesthesiologist before administration. Administer 40 mics at a time. For IV, administer over 30 seconds., Indications: Opioid Toxicity ondansetron (ZOFRAN) injection 4 mg 4 mg, intravenous, Administer over 2 Minutes, Once as needed, nausea, vomiting, Starting on Mon10/20/20 at 1244, For 1 dose, Phase I, Proceed to prochlorperazine if ondansetron has been given within the last 6 hours. oxyCODONE (ROXICODONE) tablet 5 mg 5 mg, oral, As needed, post op pain, Starting on Mon10/20/20 at 1320, Phase I, Indications: Pain 1325 (Given - Provid er: Bonita Thrasher RN) prochlorperazine (COMPAZINE) injection 5 mg 5 mg, intravenous, Every 10 min PRN, nausea, vomiting, Check with Anesthesiologist before administring, and ask about IV versus IM., Starting on Mon10/20/20 at 1244, For 2 doses, Phase I, If nausea/vomiting not relieved by ondansetron within 30 minutes or if ondansetron has been given within the last 6 hours. 1250 (Given - Provid er: Bonita Thrasher RN) sodium chloride 0.9% flush 0.5-20 mL 0.5-20 mL, intra-catheter, As needed, line care, Flush [place] Block Hep Locks to keep vein open., Starting on Mon10/20/20 at 0931, Pre-Op, Flush volume based on line type and size. Flush before and after each use. , Indications: Flushing documented in this encounter Orders Medications Ordered That Gerhard ht Not Have Been Administered Count Last Ordered Date First Ordered Date ceFAZolin (ANCEF) 2,000 mg/5 0 mL in dextrose (premix) 2,000 mg 1 10/20/2020 ceFAZolin (ANCEF) 3,000 mg/3 0 mL in sterile water (premix) 3,000 mg 1 10/20/2020 diphenhydrAMINE (BENADRYL) i njection 12.5 mg 1 10/20/2020 hydrALAZINE (APRESOLINE) injection 5 mg 1 0 10/20/2020 HYDROmorphone (DILAUDID) injection 0.2 mg 1 10/20/2020 labetaloL (NORMODYNE,TRANDAT E) injection 5 mg 1 10/20/2020 Lactated Ringer's (LR) infusion 1 Lactated Ringer's (LR) irrigation 021 meperidine (DEMEROL) preserv ative free injection 12.5 mg 1 10/20/2020 naloxone (NARCAN) 0.4 mg/mL injection 0.04-0.4 mg 1 10/20/2020 ondansetron (ZOFRAN) injection 4 mg 1 10/20 scopolamine patch 72 hour 1 patch 1 021 sodium chloride 0.9% flush 0.5-20 mL 1 /0 08/2020 documented in this encounter Care Teams Manufacturing Applications Engineer Relationship Specialty Start Date End Date Daily Cruz MD PCP - General Family Medicine 08/01/19 03/03/21 documented as of this encounter
--- OUTSIDE RECORDS SUMMARY | 2024-02-21 19:38 | XMS_ITS | Encounter Summary ---
Author Organization [facility] Address [address] [place] [address] Phone Care Team Providers Care Dry Ice Maker Name Role Phone Daily Cruz MD Primary Care Provider [phone] Encounter Details Date Type Department Care Team (Late st Contact Info) Description 10/16/2020 Orders Only [facility] Orthopaedic Surgery [address] [facility] [address] [place] [address] [place] [address] [place] [address] Social History Tobacco Use Types Packs/Day Years [...] on file 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 Gender Identity Female 03/02/2020 4:27 PM 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
--- OUTSIDE RECORDS SUMMARY | 2024-02-21 19:38 | XMS_ITS | Encounter Summary ---
Author Organization [facility] Address [address] [facility] [place] [address] [place] [address] Care Team Providers Care Skoog Patching Machine Operator Name Role Phone Daily Cruz MD Primary Care Provider [phone] Encounter Details Date Type Department Care Team (Late st Contact Info) Description 06/16/2021 Orders Only [facility] Family Medicine at [facility] [address] [place] [address] [address] [place] [address] Daily Cruz MD [address] [place] [address] [address] [place] [address] Social History Tobacco Use Types [...] on file 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
--- OUTSIDE RECORDS SUMMARY | 2024-02-21 19:38 | XMS_ITS | Encounter Summary ---
Author Organization [facility] Address [address] [place] [address] Phone Care Team Providers Care Computerized Machine Fabric Cutter Name Role Phone Daily Cruz MD Primary Care Provider [phone] Encounter Details Date Type Department Care Team (Late st Contact Info) Description 10/05/2020 8:00 AM CDT Telemedicine [facility] Pain Management [address] [place] [id number] Raimundo Zurita, PhD [address] [place], [place] [id number] Bipolar 2 disorder (CMS/HCC) (HCC) (Primary Dx); Other chronic pain Social History Tobacco Use Types Packs/Day [...] on file 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 During the visit, I was located in [place], [place] and the patient was located in [place], [place]. The session started at 8:00 a.m. and ended at 8:45 a.m.. The patient has been informed that the visit may not be secure and acknowledged the information. I have explained the option of participating in a telephone or video visit during the [facility] emergency to the patient. After being given an opportunity to ask questions about and discuss this type of visit, the patient verbally consented to proceeding with the telephone / video visit. The patient understands that this service replaces an office visit and they may be billed and/or responsible for any applicable copayments. Name: Jud Leung : 1990 Date of Service: 10/05/20 Start time: 8:00 a.m. End time: 8:45 a.m. Reason for referral: Jud Leung is a 30 y.o. female who was referred by Dr. Raymond Ng for interdisciplinary pain management assessment related to chronic pain at several sites, most prominently in her lower back, knees, and feet. Informants: The patient, who was considered reliable. History of present illness Details of injury or onset: Jud reported that her pain problems began in her very early 20s without any obvious precipitating events or circumstances. She has been told that she has herniated discsin her lower back that could be contributing to her back and leg pain. She reported that her lower back pain is continuous but that her leg pain is episodic, worse on the right side. Pain treatments and effectiveness Steroid injections: Minimally effective Chiropractic treatment: Not noticeably effective Current pain medications and effectiveness Lyrica: Minimally effective Qxyf-uup-yyotywa analgesics: Minimally effective Pain characteristics and self-management strategies Jud reported that her pain currently varies in intensity between 2 and 9 on a 10-point scale (0 =no pain; 10 = worst imaginable pain). Her pain is made better by lying down, sitting, rest and painmedications and made worse by walking, lifting, bending, weather or temperature changes and stress or worry. Jud luis a with her pain by limiting physical activities that could exacerbate her pain, applying heat to the painful areas, applying cold packs to the painful areas, resting as needed and taking pain medications. Has the patient retained an fleecer related to the pain problem? No Is there litigation pending related to the pain problem? No Is the patient print binding and finishing worker's compensation benefits? No Psychiatric history Diagnoses and relevant symptoms: Jud reported a history of depression that began when she was a young girl with symptoms that include Low mood, loss of motivation and interest, crying spells, and social withdrawal. She later developed symptoms of bipolar 2 disorder with episodes of marisol in whichshkee feels excessively happy, giddy, and has racing thoughts. She might also go a day or two withoutsleep and has engaged in gambling and other imprudent spending behaviors when in a manic episode. Psychiatrist: None currently, but has seen various providers in the past Psychotropic medications: None currently, but has taken various medications in the past Psychotherapy or counseling: None currently, but has seen various providers in the past Hospitalizations: One time for two weeks at 17 years old after a suicidal gesture Suicide attempts: A few times when she was a teenager by attempted overdose on bcmb-hch-tipoezy medications and attempted hanging on one occasion. She has had no attempts in the past several years and denied any recent suicidal thoughts, intentions, or plans. Substance use history Tobacco: Nonsmoker Alcohol: Denied Illicit drugs: Denied Personal and social history Employment: Employed full-time Marital status: , but currently in a committed relationship Children: None Members of the household: Patient lives alone Sources of assistance and support: Boyfriend, various other family members and friends Mental status exam (assessment based entirely on information available through telemedicine visit) APPEARANCE Level of consciousness: alert Attire: unable to assess Cleanliness and grooming: unable to assess Eye contact: N/A ATTITUDE: cooperative ACTIVITY: relaxed and calm PAIN BEHAVIOR: unable to assess MOOD ???Alright?? Type: primarily euthymic, although slightly at tearful times when discussing difficult times from her childhood AFFECT Appropriateness: appropriate Intensity: normal Mobility: mobile Range: full Reactivity: reactive SPEECH: regular rate and rhythm THOUGHT PROCESS: goal-directed, logical and sequential CONTENT OF THOUGHT: unremarkable COGNITION Orientation: alert and oriented x 3 Attention/Concentration: normal Recent memory: normal Remote memory: normal INSIGHT/JUDGMENT: good SUICIDALITY: Ideation: denied Plans: denied Intentions: denied Psychological testing No psychological testing was done with this assessment. Impressions and recommendations Jud Leung is a 30 y.o. female with a history of chronic pain at several sites, primarily in her lower back, knees and feet at the present time. She has been told that she has herniated discs in her lumbar spine that could be contributing to her pain. She also has a history of bipolar 2 disorder with a few suicide attempts and one hospitalization in her distant past. She has seen various mental health providers over the years but none currently. We discussed the role of Pain Psychology inthe interdisciplinary approach to the management of chronic pain, and she was given recommendationsfor reading on the self- management approach. She was particularly interested in cognitive behavior t herapy that could be helpful for both her chronic pain and her emotional distress. Jud did not schedule a follow-up appointment at this time, although she agreed to arrange an appointment at some point in the future. She recently started a new full-time job and does not want to jeopardize her employment with too many absences at this time. Diagnosis (F31.81) Bipolar 2 disorder ([facility]) ([facility]) (primary encounter diagnosis) (G89.29) Other chronic pain NOTE: This patient's allergies, medications, and problem list were noted but not managed by me as anon-medical provider. Note not shared: Patient harm documented in this encounter Plan of Treatment [...] as of this encounter Visit Diagnoses Diagnosis Bipolar 2 disorder (CMS/HCC) (HCC)- Primary Other bipolar disorders Other chronic pain documented in this encounter Care Teams Computerized Machine Fabric Cutter Relationship Specialty Start Date End Date Daily Cruz MD PCP - General Family Medicine 08/01/19 03/03/21 documented as of this encounter
--- OUTSIDE RECORDS SUMMARY | 2024-02-21 19:38 | XMS_ITS | Encounter Summary ---
Author Organization [facility] Address [address] [place] [address] Phone Care Team Providers Care Home Health Manager Name Role Phone Daily Cruz MD Primary Care Provider [phone] Reason for Referral * Diagnostic Imaging (Routine) - Closed Specialty Diagnoses / Procedures Referred By Contac t Referred To Contact Diagnoses Left ankle pain, unspecified chronicity Procedures XR Ankle Left 3+ View Selam Orosco NP [address] [facility] [address] [place] [address] Phone: tel: fax: [facility] Referral ID Status Reason Start Date Expiration Date Visits Re quested Visits Authorized [id number] Closed 10/05/2020 11/04/2021 1 1 * Diagnostic Imaging (Routine) - Closed Specialty Diagnoses / Procedures Referred By Contac t Referred To Contact Diagnoses Left foot pain Procedures XR Foot Left 3 or More Views Selam Orosco NP [address] [facility] [address] [place] [address] Phone: tel: fax: [facility] Referral ID Status Reason Start Date Expiration Date Visits Re quested Visits Authorized [id number] Closed 10/05/2020 11/04/2021 1 1 Reason for Visit * Reason Comments Pain * Consultation (Routine) - Closed Specialty Diagnoses / Procedures Referred By Matt burk Referred To Contact Orthopedic Surgery Diagnoses Left foot pain Selam Orosco NP [address] [facility] [address] [place] [address] Phone: tel: fax: [facility] (All Locations) Referral ID Status Reason Start Date Expiration Date V isits Requested Visits Authorized [id number] Closed Specialty Services Required 10/05/2020 11/04/2021 1 1 Encounter Details Date Type Department Care Team (Late st Contact Info) Description 10/05/2020 12:45 PM CDT [facility] - 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 Gender Identity Female 03/02/2020 4:27 PM LIPSTICK MOLDER Sexual Orientation Straight 07/10/2019 11 :13 PM CDT documented as of this encounter Last Filed Vital Signs Vital Sign Reading Time Taken Comments Blood Pressure - - Pulse - - Temperature - - Respiratory Rate - - Oxygen Saturation - - Inhaled Oxygen Concentration - - Weight 124.7 kg (275 lb) 10/05/2020 1:03 PM CDT Height 170.2 cm (5' 7 ) 10/05/2020 1:03 PM CDT Body Mass Index 43.07 10/05/2020 1:03 PM CDT documented in this encounter Patient Instructions * Patient Instructions* Selam Orosco NP - 10/05/2020 12:45 PM CDT Images from the original note were not included. Jud Leung 1990 Acute left ankle pain [M25.572] / acute on chronic foot pain TO DO: Wear tall walker boot with weight-bearing over the next 10 days and follow up with foot and ankle nurse practitioner Apply ice at 20 minutes intervals. If your symptoms should worsen, you can [...] your primary care provider. Selam Orosco NP documented in this encounter Progress Notes * Selam Orosco NP - 10/05/2020 12:45 PM CDT NEW ORTHOPEDIC INJURY CLINIC PATIENT VISIT CHIEF COMPLAINT Left outer foot pain REFERRING PROVIDER Daily Cruz MD HISTORY OF PRESENT ILLNESS Jud Leung is a 30 y.o. with history of several left foot revision surgery for pseudoarthrosis by Dr. oHlley. Original foot surgery by outside provider. She reports her foot surgery with significant he delay in healing and was in a boot for about a year and half. She had noted a few days of left lateral foot pain, however she stepped off a ledge and developed discomfort that radiated from the lateral aspect of the foot into the lateral calf. Discomfort is severe, sharp, dull and aching with walking. It is better with rest. She has taken ibuprofen and Tylenol to manage. PAST MEDICAL HISTORY She has a past medical history of ADHD (attention deficit hyperactivity disorder), Anxiety, Arthritis, Brain concussion, Chronic bronchitis (CMS/HCC) ([facility]), Depression, Gastric reflux, GERD (gastroesophageal reflux disease), Irritability, Jaundice, Kidney stone, Low back pain, Memory loss, Migraines, Motion sickness, Obesity, Peptic ulceration, Pneumonia, PONV (postoperative nausea and vomiting),Seasonal allergies, Seizures (CMS/HCC) ([facility]), and SOB (shortness of breath). PAST SURGICAL HISTORY She has a past surgical history that includes Tonsilectomy, adenoidectomy, bilateral myringotomy and tubes; Laparoscopic endometriosis fulguration (2018); [place] tooth extraction; Foot surgery (2019); Foot surgery (07/16/2019); and Abdominal surgery (Laparoscopic surgery to remove endometriosis). INITIAL REVIEW OF MEDICATIONS She has a current medication list which includes the following prescription(s): albuterol hfa, budesonide-formoterol, bumetanide, faudylnlda-bxsxtvprssawu-yccgjmfi-codeine, diclofenac dr, fluticasonepropionate, emgality pen, levocetirizine, levonorgestrel, pregabalin, sumatriptan, and ubrogepant. ALLERGIES She is allergic to acetazolamide, dihydroergotamine, hydrochlorothiazide, nickel, topiramate, hydrocodone-acetaminophen, lamotrigine, levetiracetam, and oxycodone-acetaminophen. SOCIAL HISTORY She reports that she has never smoked. She has never used smokeless tobacco. She reports previous alcohol use. She reports that she does not use drugs. FAMILY HISTORY Her family history includes Alcohol abuse in her mother; Arthritis in her father, mother, and sister; COPD in her mother; Depression in her father, mother, sister, and sister; Diabetes in her mother;Drug abuse in her mother; Heart attack in her father and mother; Hypertension in her father, mother, and sister; Mental illness in her father, mother, and sister; Miscarriages / Stillbirths in her mother; Rashes / Skin problems in her sister; Seizures in her mother and sister; Stroke in her mother,paternal grandmother, and sister; Vision loss in her father and mother. REVIEW OF SYSTEMS Positive for headache. Review of systems is otherwise negative. PHYSICAL EXAMINATION CONSTITUTIONAL: Well-appearing, in no apparent distress EYES: No scleral icterus or conjunctival hemorrhage CARDIOVASCULAR: Skin warm and well-perfused, no peripheral edema RESPIRATORY: Breathing unlabored without accessory muscle use PSYCHIATRIC: Alert, cooperative, appropriate mood and affect SKIN: No lesions or rashes on exposed skin MUSCULOSKELETAL: Left foot and ankle in neutral alignment. No tenderness palpation over the mediallateral malleolus. Left foot and ankle with scar to the 1st MTP. She identifies pain over the 3rd and 4th metatarsals with radiation into the lateral ankle and leg. No tenderness over the peroneal tendon. Tender palpation over the left lateral calf muscle. No ecchymosis or focal swelling in the foot or calf. Left ankle range of motion without restriction. Ankle dorsiflexion, inversion, eversion strength is 5/5. NEUROLOGIC: Sensation intact to the left foot and ankle. REVIEW OF IMAGING/STUDIES Three views are taken of the left foot and ankle and reviewed with patient today. My independent interpretation P: Intact hardware without lucency 1st TMT joint arthrodesis. 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 Recommend wearing tall walker boot over the next 10 days. She will follow up with foot and ankle nurse practitioner for further recommendations. States she is scheduled with Dr. Morel for knee arthroscopy on October 20. All questions were addressed. Selam Orosco RN, ANP-[facility] Division of Physical Medicine and Rehabilitation In collaboration with Dr. Sandoval Portions of this note were dictated using M*Modal Fluency Direct speech recognition software. documented in this encounter Plan of Treatment [...] 10/05/2020 1:29 PM CDT Left foot pain XR ANKLE LEFT 3 OR MORE VIEWS Schedule Routine, Read Routine (OP Routine) 10/05/2020 1:29 PM CDT Acute left ankle pain documented in this encounter Results [...] signed by: Mina Miner M.D. Selam Orosco NP IMG XR PROCEDURES Final [...] signed by: Mina Miner M.D. Selam Orosco [facility] IMG XR PROCEDURES Final Resul t documented in this encounter Visit Diagnoses Diagnosis Left foot pain- Primary Pain in soft tissues of limb Acute left ankle pain Strain of calf muscle, left, initial encounter documented in this encounter Orders Outpatient Referral Count Last Ordered Date Fir st Ordered Date AMB REFERRAL TO ORTHOPEDIC SURGERY 1 2020 documented in this encounter Care Teams Home Health Manager Relationship Specialty Start Date End Date Daily Cruz MD PCP - General Family Medicine 08/01/19 03/03/21 documented as of this encounter
--- OUTSIDE RECORDS SUMMARY | 2024-02-21 19:38 | XMS_ITS | Encounter Summary ---
Author Organization [facility] Healthcare Address [address] [place] [address] Care Team Providers Care Edge Drummer Name Role Phone Daily Cruz MD Primary Care Provider [phone] [phone] Reason for Referral * Consultation (Routine) - Closed Specialty Diagnoses / Procedures Referred By Contac t Referred To Contact Pain Management Diagnoses Acute bilateral low back pain, unspecified whether sciatica present Raymond Ng MD Phone: tel: fax: [address] [phone] Referral ID Status Reason Start Date Expiration Date V isits Requested Visits Authorized [id number] Closed Specialty Services Required 07/29/2020 08/28/2021 1 1 Question Answer Please select the performing region: [facility] [[id number]] # of visits: 1 Reason for Visit * Reason Comments Back Pain * Consultation (Routine) - Closed Specialty Diagnoses / Procedures Referred By Contac t Referred To Contact Pain Management Diagnoses Acute bilateral low back pain, unspecified whether sciatica present Raymond Ng MD Phone: tel: fax: [address] [phone] Referral ID Status Reason Start Date Expiration Date V isits Requested Visits Authorized [id number] Closed Specialty Services Required 07/29/2020 08/28/2021 1 1 Encounter Details Date Type Department Care Team (Latest Contact Info) Description 10/05/2020 9:34 AM CDT - 10/05/2020 1:18 PM CDT Hospital Encounter [facility] at the [facility] [address] [place] [address] Raymond Ng MD [address] [place] [address] Carissa Ro MD [address] [place] [address] Chronic bilateral low back pain with bilateral sciatica (Primary Dx); Acute bilateral low back pain, unspecified whether sciatica present Discharge Disposition: Discharge to home or self [...] on file Legal Sex Female 3:37 PM OTC CLERK Gender Identity Female 03/02/2020 4:27 PM OTC CLERK Sexual Orientation Straight 07/10/2019 11 :13 PM CDT documented as of this encounter Last Filed Vital Signs Vital Sign Reading Time Taken Comments Blood Pressure 120/93 10/05/2020 10:16 AM CDT Pulse 70 10/05/2020 10:16 AM CDT Temperature 36.5 ??C (97.7 ??F) 10/05/2020 10:16 AM C DT Respiratory Rate 20 10/05/2020 10:16 AM CDT Oxygen Saturation 98% 10/05/2020 10:16 AM CDT Inhaled Oxygen Concentration - - Weight 124.7 kg (275 lb) 10/05/2020 10:16 AM CDT Height 170.2 cm (5' 7 ) 10/05/2020 10:16 AM CDT Body Mass Index 43.07 10/05/2020 10:16 AM CDT documented in this encounter Discharge Instructions * Patient Instructions* Sangeetha Parsons, RN - 10/05/2020 10:15 AM CDT [facility] DISCHARGE INSTRUCTIONS MEDICATIONS: [x] Continue your current home medications Start: Flexeril 10 mg up to 3 times a day as needed Lyrica 75 take 3 times a day [x] Notify your pharmacy for refill(s) 7 days before you are out of your medication. [] Opioid (Narcotic) Agreement signed and patient received copy. [] Side Effects of Opioid Medications given to patient Resume blood thinner: On Discontinue: PROCEDURE at today's visit: DIET: [] Resume normal diet [] See [facility] Post Discharge Procedure Information Sheet ACTIVITY: [x] Resume normal activity [] See [facility] Post Discharge Procedure Information Sheet REFERRALS: Physical Therapy [] [facility] Physical Therapy ([phone]) [] [facility]) [] [facility] ([phone]) [] [facility]) [] Other: Behavior Medicine [] Pain Psychologist, [facility] Pain Psychology Please call to schedule appointment [phone] or [phone] Diagnostic Test(s): EDUCATION provided on the following: [] Spinal Cord Stimulator Education and DVD. Vendor: FOLLOW UP APPOINTMENTS: [] Return as needed [x] Follow up appointment: For end november. Please bring previous MRI , x- rays disc with you We will contact you the next business day to obtain: [] An update on your condition [] Your Pain diary scores [] Procedure at your next visit : COVID 19 Vaccine Update Steroids given for a procedure may decrease the effectiveness of the COVID 19 vaccine. Therefore, steroid injections will be held for 2(two) weeks before your first vaccine until 2 (two)weeks after your second vaccine. Please schedule your procedure according to the above guidelines. INSTRUCTIONS before your next procedure: [] See [facility] Pre-Procedure Information Sheet [] Do not eat or drink for six (6) hours before the time/date of the procedure. [] Inquire with your prescribing provider if ok to hold blood thinner for ( ) days before procedure. [] Blood work required 2 hours before procedure: [] Field Broomer needed for next procedure [] Pre Procedure instructions will be sent through [employer] or by phone two working days prior to procedure. *Need help with [employer]? Call [phone]. Patient provided information and repeated back with understanding. If you need to reach us: For any questions about your procedure, please call the Pain Management Center [phone] (M-[phone]) (8am-4pm) If you need urgent attention after 5 pm and weekends: Call the [facility] Workday Financials Consultant at [phone] and ask for the Pain Service doctor termite control representative. Patient Education Cyclobenzaprine (By mouth) Cyclobenzaprine (xgd-ocbd-OGI-za-preen) Treats pain and stiffness caused by muscle spasms. Brand Name(s): Amrix, Cyclo/Bill 10/300 Pack, CycloTENS Refill Michael, CycloTENS Starter Michael, Cyclobenzaprine Comfort Pac, CyclobenzaprinePax, Fexmid, FlexePax, FusePaq Tabradol, RapidPaq Tabradol There may be other brand names for this medicine. When This Medicine Should Not Be Used: This medicine is not right for everyone. Do not use it if you had an allergic reaction to cyclobenzaprine. How to Use This Medicine: Long Acting Capsule, Liquid, Tablet ?? Your doctor will tell you how much medicine to use. Do not use more than directed. ?? Take this medicine at the same time each day. ?? Swallow the extended-release capsule whole. Do not crush, break, or chew it. ?? If you cannot swallow the capsule whole, you may open the capsule and sprinkle the contents overone tablespoon of applesauce. Swallow the mixture right away without chewing. Rinse the mouth to make sure all of the medicine have been swallowed. Do not save any of the mixture to use later. ?? This medicine is not for long-term use. ?? Missed dose: Take a dose as soon as you remember. If it is almost time for your next dose, wait until then and take a regular dose. Do not take extra medicine to make up for a missed dose. ?? Store the medicine in a closed container at room temperature, away from heat, moisture, and direct light. Drugs and Foods to Avoid: Ask your doctor or pharmacist before using any other medicine, including wzan-sso-ajtbtcv medicines, vitamins, and herbal products. ?? Do not use this medicine if you have used an MAO inhibitor (MAOI) within 14 days of each other. ?? Some foods and medicines can affect how this medicine works. Tell your doctor if you are using any of the following: ?? Bupropion, guanethidine, meperidine, tramadol, verapamil ?? Medicine to treat depression (including amitriptyline, imipramine) ?? Do not drink alcohol while you are using this medicine. ?? Tell your doctor if you use anything else that makes you sleepy. Some examples are allergy medicine, narcotic pain medicine, and alcohol. Warnings While Using This Medicine: ?? Tell your doctor if you are or , or if you have liver problems, congestiveheart failure, heart rhythm problems, a recent heart attack, overactive thyroid, or a history of glaucoma or trouble urinating. ?? This medicine may cause the following problems: ?? Serotonin syndrome, when taken with certain medicines ?? This medicine may make you dizzy or drowsy. Do not drive or doing anything that could be dangerous until you know how this medicine affects you. ?? Call your doctor if your symptoms do not improve or if they get worse. ?? Keep all medicine out of the reach of children. Never share your medicine with anyone. Possible Side Effects While Using This Medicine: Call your doctor right away if you notice any of these side effects: ?? Allergic reaction: Itching or hives, swelling in your face or hands, swelling or tingling in your mouth or throat, chest tightness, trouble breathing ?? Anxiety, restlessness, fever, sweating, twitching, nausea, vomiting, diarrhea, seeing or hearingthings that are not there ?? Fast, pounding, or uneven heartbeat ?? Severe drowsiness, fainting, or confusion If you notice these less serious side effects, talk with your doctor: ?? Dizziness ?? Dry mouth If you notice other side effects that you think are caused by this medicine, tell your doctor. Call your doctor for medical advice about side effects. You may report side effects to FDA at 7-326-YYU-9357 ?? 2016 [employer] Information is for End User's use only and may not be sold, redistributed or otherwise used for commercial purposes. The above information is an home aid only. It is not intended as medical advice for individual conditions or treatments. Talk to your doctor, nurse or pharmacist before following any medical regimen to see if it is safe and effective for you. documented in this encounter Medications at Time [...] 2 butalbital-acetam inophen-caffeine- codeine (FIORICET WITH CODEINE) [id number] mg per capsuleIndication s:Intractable chronic migraine without [...] or self care documented in this encounter Progress Notes * Tyler Weiss DO - 10/05/2020 10:15 AM CDT Patient Name: Jud Leung : 1990 Today's Date: 10/05/2020 PCP: Daily Cruz MD Referring: Raymond Ritter * Chief Complaint Patient presents with ??? Back Pain HPI Jud Leung is a 30 y.o. year old female referred by Raymond Ritter * for consultationregarding evaluation and treatment recommendation for management of her low back pain. Patient was initially seen at the Pain Management Center on 10/05/2020. Pain Assessment Pain Score: 6 Pain Location: Back (Lumbar) Pain Radiating Towards: going down to upper thigh. Also has foot, nekc and knee pain Pain Descriptors: Throbbing, Shooting, Aching Pain Frequency: Constant/continuous Pain Onset: Ongoing Radiation: bilateral posterior thighs to knees Numbness: none Weakness: none Denies any b/b incontinence or saddle anesthesia. Her pain began ~20 years. Pain started after no inciting event. Her pain at its best-worse level is4-8/10, respectively. Pain is worse during evening. Pain is better during morning. Provocative factors include bending and walking. Alleviating factors include sitting. Her pain somewhat interferes with ADL's. Pain does not affect sleep. Physical therapy: has done PT in the past Past/ current meds: Lyrica 75mg BID Prior interventional therapies: reports having LESI in the past (unsure of level) which did not help Most recent imaging: Lumbar MRI 04/2020 Prior surgical treatment/ evaluation: prior b/l bunion surgery (Dr. Holley) Pain Medications diclofenac DR (VOLTAREN) 75 mg EC tablet TAKE 1 TABLET BY MOUTH TWICE A DAY NEEDED FOR PAIN pregabalin (LYRICA) 75 mg capsule Take 1 capsule (75 mg total) by mouth 2 (two) times a day ftssqdnzbe-zvdpaxebsioog-sjlvlugl-codeine (FIORICET WITH CODEINE) [id number] mg per capsule Take 1 capsule by mouth every 6 (six) hours as needed for headaches or migraine Results Allergies Allergen Reactions ??? Acetazolamide Swollen tongue [...] SEIZURE ACTIVITY ??? Oxycodone-Acetaminophen Nausea And Vomiting Past Medical History: Diagnosis Date ??? ADHD (attention deficit hyperactivity disorder) ??? Anxiety ??? Arthritis ??? Brain concussion ??? Chronic bronchitis (CMS/HCC) (HCC) ??? Depression ??? Gastric reflux ??? GERD (gastroesophageal reflux disease) ??? Irritability ??? Jaundice ??? Kidney stone ??? Low back pain ??? Memory loss ??? Migraines ??? Motion sickness ??? Obesity ??? Peptic ulceration ??? Pneumonia ??? PONV (postoperative nausea and vomiting) premedicated and scopolamine patch ??? Seasonal allergies ??? Seizures (CMS/HCC) (HCC) ??? SOB (shortness of breath) Past Surgical History: Procedure Laterality Date ??? ABDOMINAL SURGERY Laparoscopic surgery to remove endometriosis ??? FOOT SURGERY 2018 2 left bunion, 1 right bunion ??? FOOT SURGERY 07/16/2019 revision left tarsometatarsal joint arthrodesis iliac crest bone graft - Left ??? LAPAROSCOPIC ENDOMETRIOSIS FULGURATION 2017 ??? TONSILECTOMY, ADENOIDECTOMY, BILATERAL MYRINGOTOMY AND TUBES ??? WISDOM TOOTH EXTRACTION Social History Socioeconomic History ??? Marital status: Spouse name: Not on file ??? Number of children: Not on file ??? Years of education: Not on file ??? Highest education level: Not on file Occupational History ??? Not on file Tobacco Use ??? Smoking status: Never Smoker ??? Smokeless tobacco: Never Used Vaping Use ??? Vaping Use: Never assessed Substance and Sexual Activity ??? Alcohol use: Not Currently Alcohol/week: 0.0 standard drinks Comment: Maybe a drink every few months ??? Drug use: Never ??? Sexual activity: Yes Partners: Male control/protection: I.U.D. Other Topics Concern ??? Not on file Social History Narrative ??? Not on file Social Determinants of Health Financial Resource Strain: ??? Difficulty of Paying Living Expenses: Not on file Food Insecurity: ??? Worried About Running Out of Food in the Last Year: Not on file ??? Ran Out of Food in the Last Year: Not on file Transportation Needs: ??? Lack of Transportation (Medical): Not on file ??? Lack of Transportation (Non-Medical): Not on file Physical Activity: ??? Days of Exercise per Week: Not on file ??? Minutes of Exercise per Session: Not on file Stress: ??? Feeling of Stress : Not on file Social Connections: ??? Frequency of Communication with Friends and Family: Not on file ??? Frequency of Social Gatherings with Friends and Family: Not on file ??? Attends [employer] Services: Not on file ??? Active Member of Clubs or Organizations: Not on file ??? Attends Club or Organization Meetings: Not on file ??? Marital Status: Not on file Intimate Partner Violence: ??? Fear of Current or Ex-Partner: Not on file ??? Emotionally Abused: Not on file ??? Physically Abused: Not on file ??? Sexually Abused: Not on file Family History Problem Relation Age of Onset [...] Depression Sister ??? Anesthesia problems Neg Hx HOME MEDICATIONS : albuterol HFA (Ventolin HFA) 90 mcg/actuation inhaler budesonide-formoteroL (Symbicort) 160-4.5 mcg/actuation inhaler bumetanide (BUMEX) [address] (VOLTAREN) 75 mg EC tablet fluticasone propionate (FLONASE) 50 mcg/actuation nasal spray galcanezumab-gnlm (Emgality Pen) 120 mg/mL pen injector levocetirizine (XYZAL) 5 mg tablet levonorgestreL (KYLEENA) IUD pregabalin (LYRICA) 75 mg capsule SUMAtriptan (IMITREX) 50 mg tablet ubrogepant (Ubrelvy) 50 mg tablet joutaaistc-rqjgktfrorfjj-vnqhraru-codeine (FIORICET WITH CODEINE) 01-905-91-30 mg per capsule Review of Systems Review of Systems Physical Exam: Vitals: 10/05/20 1016 BP: 120/93 Pulse: 70 Resp: 20 Temp: 97.7 ??F (36.5 ??C) SpO2: 98% Weight: 124.7 kg (275 lb) Height: 170.2 cm (5' 7 ) Body mass index is 43.07 kg/m??. CONSTITUTIONAL: Nutrition-obese MUSCULOSKELETAL EXAMINATION: Gait normal. [id number] SPINE: Normal Lordosis. Paraspinal muscles normal. LOWER EXTREMITIES: Normal muscle strength. No tenderness. Normal muscle bulk and tone. ROM: normal lumbar ROM in forward flexion, extension, and rotation bilateral Assessment Encounter Diagnosis Name Primary? Acute bilateral low back pain, unspecified whether sciatica present The above note documents my personal evaluation of this patient. In addition, I have reviewed and confirmed with the patient and nurse the supportive information documented in today's scanned PatientHealth Questionnaire and Office Note. Plan 1. Intervention: No intervention needed at this current time 2. Medications: Will increase Pregabalin from 75mg BID to 75mg TID 3. Imaging: No further imaging needed at this current time. She recently had a lumbar MRI, b/l kneeMRI, and radiographs with reports. Patient will bring discs in next visit. 4. Referral: No referrals needed at this current time. and Encourage weight loss. Discuss was had regarding importance of diet and exercise. Recommended to patient to reach out to PCP regarding referral to a stone engraver for weight loss strategies 5. Follow-up: at the end of november. she is currently scheduled for b/l knee arthroscopy as well aspossible lateral retinacular releases for her chronic knee pain. we will see her after she has healed from that surgery to better evaluate her low back as well as offer potential treatment. Tyler Weiss DO Pain Fellow Department of Anesthesiology [facility] in [place] Carissa Ro M.D. Pain Management, Department of Anesthesiology [facility] 10/05/2020 12:21 PM Cosigned by Carissa Ro MD at 10/05/2020 2:17 PM CDT Associated attestation - Carissa Ro MD - 10/05/2020 2:17 PM CDT I have seen and examined the patient on 10/05/20. I agree with the findings and plan of care as documented in the resident's/fellow's note. documented in this encounter Miscellaneous Notes * Addendum Note - Opal Osman - 10/05/2020 10:15 AM CDTEncounter addended by: Opal Osman on: 10/06/2020 8:09 AM Actions taken: Procedure log completed documented in this encounter Plan of Treatment Scheduled Referrals Name Type Priority Associated Diagnoses Order Schedule Ambulatory referral to Pain Management Outpatient Referral Routine Acute bilateral low back pain, unspecified whether sciatica present Once for 1 Occurrences starting 10/05/2020 until 10/05/2020 documented as of this encounter Goals Goal [...] of this encounter Visit Diagnoses Diagnosis Chronic bilateral low back pain with bilateral sciatica- Primary Acute bilateral low back pain, unspecified whether sciatica present documented in this encounter Care Teams Edge Drummer Relationship Specialty Start Date End Date Daily Cruz MD PCP - General Family Medicine 08/01/19 03/03/21 documented as of this encounter
--- OUTSIDE RECORDS SUMMARY | 2024-02-21 19:38 | XMS_ITS | Encounter Summary ---
Author Organization [facility] Address [address] [place] [address] Care Team Providers Care Film Developer Name Role Phone Daily Cruz MD Primary Care Provider [phone] [phone] Encounter Details Date Type Department Care Team (Late st Contact Info) Description 09/21/2020 Telephone [facility] Family Medicine [address] [place] [address] Daily Cruz MD [address] [place] [address] [address] [place] [address] Social History Tobacco Use Types Packs/Day Years Used Date Smoking Tobacco: Never Smokeless Tobacco: Never Alcohol Use Standard Drinks/Week Comments Not Currently 0 (1 standard drink = 0.6 oz pure alcohol) Maybe a drink every few months AUDIT-C Answer Date Recorded Q1: How often do you have a drink containing alc ohol? Never 09/11/2020 Q2: How many drinks containi ng alcohol do you have on a typical day when you are drinking? 1 or 2 09/11/2020 Q3: How often do you have six or more drinks on one occasion? Never 09/11/2020 PHQ-2 Answer Date Recorded PHQ-2 Total Score (If total score is 3 or more points, staff should administer the PHQ-9) 3 08/19/2020 Comments No Sex and Gender Information Value Date Recorded Sex Assigned at Not on file Legal Sex Female 3:37 PM TOOLMAN Gender Identity Female 03/02/2020 4:27 PM TOOLMAN Sexual Orientation Straight 07/10/2019 11 :13 PM CDT documented as of this encounter Miscellaneous Notes * Telephone Encounter - Dia Huffman MA - 09/21/2020 2:51 PM CDT Error documented in this encounter Plan of Treatment Not on file documented as of this encounter Visit Diagnoses Not on filedocumented in this encounter Care Teams Film Developer Relationship Specialty Start Date End Date Daily Cruz MD PCP - General Family Medicine 08/01/19 03/03/21 documented as of this encounter
--- OUTSIDE RECORDS SUMMARY | 2024-02-21 19:38 | XMS_ITS | Encounter Summary ---
Author Organization [facility] Address [address] [place] [address] Phone Care Team Providers Care Media Consultant Name Role Phone Daily Cruz MD Primary Care Provider [phone] [phone] Reason for Visit * Reason Comments Follow-up Follow-up Encounter Details Date Type Department Care Team (Late st Contact Info) Description 10/02/2020 4:20 PM CDT Office Visit [facility] Orthopaedic Surgery [address] [place] [address] [place] [address] [facility] [address] [place] [address] Pain in both knees, unspecified chronicity (Primary Dx) Social History Tobacco Use Types Packs/Day Years Used Date Smoking Tobacco: Never Smokeless Tobacco: Never Alcohol Use Standard Drinks/Week Comments Not Currently 0 (1 standard drink = 0.6 oz pure alcohol) Maybe a drink every few months AUDIT-C Answer Date Recorded Q1: How often do you have a drink containing alc ohol? 2-4 times a month 10/05/2020 Q2: How many drinks containi ng alcohol do you have on a typical day when you are drinking? 1 or 2 10/05/2020 Q3: How often do you have si x or more drinks on one occasion? Never 10/05/2020 PHQ-2 Answer Date Recorded PHQ-2 Total Score (If total score is 3 or more points, staff should administer the PHQ-9) 3 08/19/2020 Comments No Sex and Gender Information Value Date Recorded Sex Assigned at Not on file Legal Sex Female 3:37 PM CAREER ADVISOR Gender Identity Female 03/02/2020 4:27 PM CAREER ADVISOR Sexual Orientation Straight 07/10/2019 11 :13 PM CDT documented as of this encounter Last Filed Vital Signs Vital Sign Reading Time Taken Comments Blood Pressure - - Pulse - - Temperature - - Respiratory Rate - - Oxygen Saturation - - Inhaled Oxygen Concentration - - Weight 124.7 kg (274 lb 14.6 oz) 10/02/2020 4:08 PM CDT Height 170.2 cm (5' 7.01 ) 10/02/2020 4:08 PM CD T Body Mass Index 43.05 10/02/2020 4:08 PM CDT documented in this encounter Progress Notes * Logan Morel MD - 10/02/2020 4:20 PM CDT RETURN PATIENT VISIT HISTORY OF PRESENT ILLNESS Jud Leung is a 30-year-old female presents for follow-up regarding her bilateral anterior knee pain. She has bilateral patellofemoral pain with patella maltracking. She states that she has completed a course of physical therapy which were now made approximately 3 rounds of therapy total. Shestates that her pain has continued. 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 This has also not improved her pain. She states that she did not receive any relief from her injections that we provided in her office during her last visit. She also states that she initially lost 15 lb prior to starting her new job as a city superintendent with no significant change in her knee pain. She is interested in discussing surgical options at this point given her prolonged pain. PHYSICAL EXAMINATION Well-appearing female in NAD. Hearing intact to normal levels of conversation. No labored breathing. Range of motion is full in bilateral knees. Bilateral knees with mild effusion. negative Patellofemoral crepitus. negative medial patella facet tenderness. negative lateral patellar facet tenderness.negative Sherine's. negative posterior drawer. negative varus or valgus laxity in 0 or 30?? of kneeflexion. There is positive medial joint line tenderness bilaterally. negative lateral joint line tenderness. negative with Bert's. negative Thessaly test. negative apprehension with lateral patellar translation. 5/5 strength with ankle dorsiflexion, plantar flexion and EHL. Dorsalis pedis pulseis easily palpable. +J sign bilaterally. 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 At this point she has exhausted all nonsurgical treatment modalities. We discussed that this time it is reasonable to try arthroscopicdebridement of her knees starting with the most symptomatic knee which today is her left knee. Thiswould include a possible lateral release. We discussed the risks benefits and potential complications of his procedure. We also discussed that this procedure also has potential to not improve her pain either. She has press understanding is interested in trying arthroscopic surgery. We think that this is reasonable will get her scheduled for the part october. All her questions were answered today. We will see her back postoperatively. Heber Lopez MD PGY-4 [facility] in [address] Department of Orthopaedic Surgery Dictated using MModal Fluency Direct. Child Care Specialist variations may occur. ATTENDING ATTESTATION: Please see resident/fellow's note. I discussed the case with the resident/fellow, performed the physical examination, reviewed all tests and imaging studies, and agree with the findings and treatmentplan as documented in resident/fellow's note. Briefly, this is a 30-year-old with ongoing bilateral knee pain. She has been through physical therapy since we saw her last without resolution of her symptoms. She continues to have pain mostly anterior medially. She also has a tight lateral retinaculum on examination. We talked about doing an arthroscopic evaluation of her knee to address her fat pad impingement. We also talked about a possible lateral retinacular release. She says her left knee is bothering her more right now. We will address the left knee 1st. She understands that her symptomsmay not completely resolved. She also understands that she needs to continue doing physical therapyexercises. She understands the risk of infection, nerve or vessel injury, persistent pain, stiffness as well as other things we cannot predict related to surgery. Logan Morel M.D. Lead Trainer of Orthopaedic Surgery Sports Medicine and Shoulder Surgery Logan Morel M.D. dictating using ClaimReturn Direct software. documented in this encounter Plan of Treatment Not on file documented as of this encounter Visit Diagnoses Diagnosis Pain in both knees, unspecified chronicity- Primary documented in this encounter Care Teams Media Consultant Relationship Specialty Start Date End Date Daily Cruz MD PCP - General Family Medicine 08/01/19 03/03/21 documented as of this encounter
--- OUTSIDE RECORDS SUMMARY | 2024-02-21 19:38 | XMS_ITS | Encounter Summary ---
Author Organization [facility] Address [address] [place] [address] Care Team Providers Care Park Naturalist Name Role Phone Daily Cruz MD Primary Care Provider [phone] Reason for Visit * Reason Comments Rash Encounter Details Date Type Department Care Team (Late st Contact Info) Description 06/16/2021 4:00 PM CDT Office Visit [facility] Family Medicine [address] [place] [id number] Dixie Khan PA [address] [place] [address] Rash (Primary Dx); Morbid obesity with BMI of [...] on file 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 Gender Identity Female 03/02/2020 4:27 PM ROOF PAINTER Sexual Orientation Straight 07/10/2019 11 :13 PM CDT documented as of this encounter Last Filed Vital Signs Vital Sign Reading Time Taken Comments Blood Pressure 110/74 06/16/2021 4:17 PM CDT Pulse 76 06/16/2021 4:17 PM CDT Temperature 36.5 ??C (97.7 ??F) 06/16/2021 4:17 PM CD T Respiratory Rate 18 06/16/2021 4:17 PM CDT Oxygen Saturation 97% 06/16/2021 4:17 PM CDT Inhaled Oxygen Concentration - - Weight 119 kg (262 lb 6.4 oz) 06/16/2021 4:17 PM CDT Height 170.2 cm (5' 7 ) 06/16/2021 4:17 PM CDT Body Mass Index 41.1 06/16/2021 4:17 PM CDT documented in this encounter Ordered Prescriptions Prescription Sig Dispense Quantity Refills Last Filled Start Date End Date neomycin-polymyxin -HC (CORTISPORIN) 3.5-10,000-1 mg/mL-unit/mL-% otic suspension Administer 2 drops into each ear 4 (four) times a day for 7 days 10 mL 06/16/2021 2 valACYclovir (VALTREX) 1 gram tablet Take 1 tablet (1,000 mg total) by mouth 3 (three) times a day for 7 days 21 tablet 06/16/2021 2 methylPREDNISolone (MEDROL DOSEPACK) 4 mg Dosepack Take as directed on package. 21 tablet 06/16/2021 2 documented in this encounter Progress Notes * Dixie Khan PA - 06/16/2021 4:00 PM CDT Images from the original note were not included. Visit Date: 06/16/2021 Patient ID: Jud Leung is a 30 y.o. female. Chief Complaint(s): Rash HPI: Jud Leung is a 30 y.o. female here today for rash to right arm for the past 2 days. States it's been painful and itchy. Also has bruising around the area. She had Shingles last year and this feels similar. She has been under more stress lately. Current Outpatient Medications Medication Sig Dispense Refill ??? acetaminophen (TYLENOL) 500 mg tablet Take 1,000 mg by mouth every 6 (six) hours as needed for pain ??? fluticasone propionate (FLONASE) 50 mcg/actuation nasal spray Administer 2 sprays into each nostril daily (Patient taking differently: Administer 2 sprays into each nostril as needed) 16 g 0 ??? galcanezumab-gnlm (Emgality Pen) [...] once as needed) 9 tablet 0 ??? albuterol 2.5 mg /3 mL (0.083 %) nebulizer solution Take 3 mL (2.5 mg total) by nebulization every 6 (six) hours as needed for wheezing 75 mL 0 ??? albuterol HFA (PROVENTIL HFA,VENTOLIN HFA,PROAIR HFA) 90 mcg/actuation inhaler Inhale 2 puffs every 6 (six) hours as needed for wheezing 1 each 0 ??? benzonatate (TESSALON) 100 mg capsule Take 1 capsule (100 mg total) by mouth 3 (three) times a day as needed for cough 42 capsule 0 ??? budesonide-formoteroL (SYMBICORT) 160-4.5 mcg/actuation inhaler Inhale 2 puffs 2 (two) times a day Rinse mouth with water after use. Do not swallow. 1 each 1 ??? furosemide (LASIX) 20 mg tablet TAKE 1 TABLET BY MOUTH EVERY DAY 30 tablet 0 ??? tamsulosin (FLOMAX) 0.4 mg extended release capsule Take 1 capsule (0.4 mg total) by mouth daily for 14 days 14 capsule 0 ??? triamcinolone (KENALOG) 0.1 % cream Apply topically 2 (two) times a day as needed for rash Do not use on the face or in the groin 454 g 2 No current facility-administered medications for this visit. Allergies as of 06/16/2021 - Reviewed 06/16/2021 Allergen Reaction Noted ??? Acetazolamide Swollen tongue 01/04/2016 ??? Dihydroergotamine Shortness of breath 10/16/2015 ??? Hydrochlorothiazide Swollen tongue 05/20/2020 ??? Nickel Hives, Itching, Rash, and Swelling 09/20/2017 ??? Topiramate Swelling and Other (See comments) 04/18/2016 ??? Hydrocodone-acetaminophen Nausea And Vomiting 09/11/2017 ??? Lamotrigine Other (See comments) 09/20/2017 ??? Levetiracetam Other (See comments) 09/20/2017 ??? Oxycodone-acetaminophen Nausea And Vomiting 09/11/2017 Review of Systems: Review of Systems Constitutional: Positive for fatigue. Negative for fever. HENT: Positive for congestion and rhinorrhea. Eyes: Negative for pain. Respiratory: Negative for cough and shortness of breath. Gastrointestinal: Negative for diarrhea and vomiting. Skin: Positive for rash. Physical Examination: Vitals: 06/16/21 1617 BP: 110/74 BP Location: Left arm Patient Position: Sitting Pulse: 76 Resp: 18 Temp: 36.5 ??C (97.7 ??F) TempSrc: Temporal SpO2: 97% Weight: 119 kg (262 lb 6.4 oz) Height: 170.2 cm (5' 7 ) Physical Exam Vitals and nursing note reviewed. Constitutional: General: She is not in acute distress. Appearance: Normal appearance. HENT: Head: Normocephalic and atraumatic. Eyes: Extraocular Movements: Extraocular movements intact. Conjunctiva/sclera: Conjunctivae normal. Pupils: Pupils are equal, round, and reactive to light. Cardiovascular: Rate and Rhythm: Normal rate and regular rhythm. Heart sounds: Normal heart sounds. Pulmonary: Effort: Pulmonary effort is normal. No respiratory distress. Breath sounds: Normal breath sounds. No stridor. No wheezing, rhonchi or rales. Abdominal: General: There is no distension. Palpations: Abdomen is soft. Tenderness: There is no abdominal tenderness. There is no right CVA tenderness or left CVA tenderness. Musculoskeletal: Cervical back: Normal range of motion. Right lower leg: No edema. Left lower leg: No edema. Lymphadenopathy: Cervical: No cervical adenopathy. Skin: General: Skin is warm and dry. Findings: Rash (to right upper arm: Erythematous papular lesions in a linear distribution with somesmall open vesicles without drainage) present. No lesion. Neurological: Mental Status: She is alert. Results Reviewed: No results found for this or any previous visit (from the past 2 hour(s)). No visits with results within 2 Week(s) from this visit. Latest known visit with results is: Admission on 11/29/2020, Discharged on 11/29/2020 Component Date Value ??? WBC 11/29/2020 9.8 ??? Hgb 11/29/2020 12.8 ??? Hct 11/29/2020 39.0 ??? Plt 11/29/2020 363 ??? MPV 11/29/2020 10.2 ??? RBC 11/29/2020 4.45 ??? MCV 11/29/2020 87.6 ??? MCH 11/29/2020 28.8 ??? MCHC 11/29/2020 32.8 ??? RDW CV 11/29/2020 14.6 ??? RDW SD 11/29/2020 46.8 ??? NRBC abs 11/29/2020 0.00 ??? Sodium 11/29/2020 140 ??? Potassium, pl 11/29/2020 4.2 ??? Chloride 11/29/2020 102 ??? CO2 11/29/2020 26 ??? Anion gap 11/29/2020 12 ??? BUN 11/29/2020 11 ??? Creatinine 11/29/2020 0.70 ??? Glucose 11/29/2020 118 ??? Calcium 11/29/2020 9.7 ? ? Bilirubin, total 11/29/2020 <0.2 ??? Protein, pl 11/29/2020 7.5 ??? Albumin 11/29/2020 4.1 ??? Alk phos 11/29/2020 102 ??? ALT 11/29/2020 15 ??? AST 11/29/2020 12 ??? Lipase 11/29/2020 16 ??? Color, ur 11/29/2020 Yellow ??? Clarity, ur 11/29/2020 Cloudy (A) ??? Specific gravity, ur 11/29/2020 1.017 ??? pH, urine 11/29/2020 6.0 ??? Protein, ur ql 11/29/2020 Negative ??? Glucose, ur ql 11/29/2020 Negative ??? Ketones, ur 11/29/2020 Negative ??? Bilirubin, ur 11/29/2020 Negative ??? Blood, ur 11/29/2020 1+ (A) ? ? Urobilinogen, ur 11/29/2020 <2.0 ??? Nitrite, ur 11/29/2020 Negative ??? Leukocyte esterase, ur 11/29/2020 Negative ??? UA reflex comment 11/29/2020 Reflex to microscopic UA will be performed. ??? HCG, ur, POC 11/29/2020 Negative ??? Lot Number 11/29/2020 [id number] ??? QC Backgroud Clear 11/29/2020 Acceptable ??? QC Control Line 11/29/2020 Acceptable ??? Neutrophil abs 11/29/2020 6.3 ??? Imm gran abs 11/29/2020 0.0 ??? Lymphocyte abs 11/29/2020 2.9 ??? Monocyte abs 11/29/2020 0.5 ??? Eosinophil abs 11/29/2020 0.1 ??? Basophil abs 11/29/2020 0.0 ??? Neutrophil pct 11/29/2020 63.7 ??? Imm gran pct 11/29/2020 0.4 ??? Lymphocyte pct 11/29/2020 29.8 ??? Monocyte pct 11/29/2020 4.8 ??? Eosinophil pct 11/29/2020 0.9 ??? Basophil pct 11/29/2020 0.4 ??? WBC, ur 11/29/2020 0-5 ??? RBC, ur 11/29/2020 3-5 (A) ??? Epithelial cells, squamo* 11/29/2020 6-10 (A) ??? Mucous, ur 11/29/2020 Present (A) ??? Hyaline casts, ur 11/29/2020 11-20 (A) ? ? Culture Reflex Comment 11/29/2020 Reflex conditions for urine culture (WBC >10) not met. ??? eGFR 11/29/2020 117 Assessment/Plan Diagnoses and all orders for this visit: Rash (R21) (Primary) Comments: Shingles vs contact dermatitis. Will start valtrex and medrol dosepak. Apply cool compresses. Avoidscratching. Monitor for signs of infection. RTC if worsens Morbid obesity with BMI of 40.0-44.9, adult ([facility]) (E66.01, Z68.41) Other orders - valACYclovir (VALTREX) 1 gram tablet; Take 1 tablet (1,000 mg total) by mouth 3 (three) times a day for 7 days - sbwvpdsk-wsoqbmkfu-KR (CORTISPORIN) 3.5-10,000-1 mg/mL-unit/mL-% otic suspension; Administer 2 drops into each ear 4 (four) times a day for 7 days No follow-ups on file. GALINA Doll documented in this encounter Plan of Treatment [...] Primary Rash and other nonspecific skin eruption Morbid obesity with BMI of 40.0-44.9, adult (HCC) documented in this encounter Discontinued Medications Medication Sig Discontinue Reason Start Date End Da te ubrogepant (Ubrelvy) 50 mg tabletIndications:Chroni c migraine without aura without status migrainosus, not intractable Take 1 tablet (50 mg total) by mouth once as needed for migraine May repeat dose once in 2 hours if no relief. Do not exceed 2 doses in 24 hours. Therapy completed 05/20/2020 06/16/2021 sucralfate (CARAFATE) 1 gram tablet Take 1 tablet (1 g total) by mouth 4 (four) times a day Therapy completed 11/29/2020 06/16/2021 pregabalin (LYRICA) 75 mg capsuleIndications:Leg cramping TAKE 1 CAPSULE BY MOUTH TWICE A DAY Therapy completed 03/04/2021 06/16/2021 ondansetron (ZOFRAN) 4 mg tablet Take 1 tablet (4 mg total) by mouth every 8 (eight) hours as needed for nausea or vomiting Therapy completed 10/16/2020 06/16/2021 oxyCODONE (ROXICODONE) 5 mg immediate release tabletIndications:Pain TAKE 1 TABLET EVERY 4-6 HOURS NEEDED FOR PAIN Therapy completed 10/20/2020 06/16/[address] (VOLTAREN) 75 mg EC tabletIndications:Chroni c pain of both knees,Chronic bilateral low back pain, unspecified whether sciatica present TAKE 1 TABLET BY MOUTH TWICE A DAY NEEDED FOR PAIN Therapy completed 03/30/2021 06/16/2021 bumetanide (BUMEX) 1 mg tabletIndications:Fluid retention TAKE 1 TABLET BY MOUTH TWICE A DAY Therapy completed 09/18/2020 06/16/2021 documented as of this encounter Additional Health Concerns Infection Onset Date Last Indicated Resolved Time COVID: Suspected 07/23/2021 07/23/2021 07/23/2021 2:59 PM CDT documented as of this encounter Care Teams Park Naturalist Relationship Specialty Start Date End Date Daily Cruz MD PCP - General Family Medicine 03/04/21 documented as of this encounter
--- OUTSIDE RECORDS SUMMARY | 2024-02-21 19:38 | XMS_ITS | Encounter Summary ---
Author Organization [facility] Address [address] [place] [address] Care Team Providers Care Bladder Trimmer Name Role Phone Daily Cruz MD Primary Care Provider [phone] Reason for Visit * Reason Onset Date Comments GALINA [id number] 09/11/2020 Encounter Details Date Type Department Care Team (Late st Contact Info) Description 09/11/2020 Telephone [facility] Family Medicine [address] [place] [address] [address] [place] [address] Daily Cruz MD [address] [place] [id number] GALINA [email or web address]-Cod Social History Tobacco Use Types Packs/Day Years [...] on file 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 Gender Identity Female 03/02/2020 4:27 PM KNOTTING MACHINE OPERATOR Sexual Orientation Straight 07/10/2019 11 :13 PM CDT documented as of this encounter Miscellaneous Notes * Telephone Encounter - Milagros Schaefer RN - 09/11/2020 2:13 PM CDT GALINA [id number]-Cod done on covermymeds and awaiting response documented in this encounter Plan of Treatment Not on file documented as of this encounter Visit Diagnoses Not on filedocumented in this encounter Care Teams Bladder Trimmer Relationship Specialty Start Date End Date Daily Cruz MD PCP - General Family Medicine 08/01/19 03/03/21 documented as of this encounter
--- OUTSIDE RECORDS SUMMARY | 2024-02-21 19:38 | XMS_ITS | Encounter Summary ---
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 ??Testing performed by the [facility] Molecular Infectious Disease Laboratory. The 2019-Novel Coronavirus Assay (COVID-19) Real Time RT-PCR assay is for in vitro diagnostic use under FDA emergency use authorization only. A negative RT-PCR result does not preclude infection with COVID-19 and should not be used as the sole basis for treatment or other patient management decisions. ??Additional sample types have been validated according to CLIA regulations. ?? Current Interpretive Data was last revised on March 19, 2020. First COVID-19 test? No [facility] Employeed in healthcare? Unknown [facility] status? Unknown [facility] Group care resident? No [facility] Hospitalized? Unknown [facility] Is patient in ICU? Unknown [facility] Symptomatic as defined by CDC? No [facility] Nasopharyngeal 10/17/2020 11 :51 AM CDT 10/17/2020 3:49 PM CDT Narrative [facility] - 10/18/2020 1:46 AM CDT What is the reason for testing?->Screening prior to scheduled procedure or surgery (batch) us Logan Morel MD LAB MICROBIOLOGY - GENER AL ORDERABLES Final Result ANGELICA BILLS [facility] Department [place] [address] documented in this encounter Visit Diagnoses Diagnosis Pre-operative laboratory examination Pre-procedural laboratory examination documented in this encounter Care Teams Airplane Gas Tank Liner Assembler Relationship Specialty Start Date End Date Daily Cruz MD PCP - General Family Medicine 08/01/19 03/03/21 documented as of this encounter
--- OUTSIDE RECORDS SUMMARY | 2024-02-21 19:38 | XMS_ITS | Encounter Summary ---
Author Organization [facility] Address [address] [place] [address] Phone Care Team Providers Care Cash Applications Specialist Name Role Phone Daily Cruz MD Primary Care Provider [phone] Reason for Visit * Reason Comments Post-op * Consultation (Routine) - Closed Specialty Diagnoses / Procedures Referred By Matt burk Referred To Contact Orthopedic Surgery Diagnoses [place] [address] [place] [address] Phone: tel: fax: [facility] (All Locations) Referral ID Status Reason Start Date Expiration Date V isits Requested Visits Authorized [id number] Closed Specialty Services Required 10/28/2020 11/27/2021 1 1 Encounter Details Date Type Department Care Team (Late st Contact Info) Description 11/02/2020 4:00 PM CDT Office Visit [facility] Orthopaedic Surgery [address] [place] [address] [place] [address] [place] [address] Chronic pain of right knee (Primary Dx) Social History Tobacco Use Types [...] on file Legal Sex Female 3:37 PM DIAGNOSTIC ASSISTANT Gender Identity Female 03/02/2020 4:27 PM DIAGNOSTIC ASSISTANT Sexual Orientation Straight 07/10/2019 11 :13 PM CDT documented as of this encounter Progress Notes * Logan Morel MD - 11/02/2020 4:00 PM CDT RETURN PATIENT VISIT HISTORY OF PRESENT ILLNESS Jud Leung returns today now 13 days status post left knee arthroscopic fat pad debridement patellar chondroplasty with lateral retinacular release. She is doing well overall. Her pain is controlled. She has been icing and taking NSAIDs to help with her swelling. PHYSICAL EXAMINATION Well-appearing female in NAD. Hearing intact to normal levels of conversation. No labored breathing. Focused examination of the left knee: Her incisions are healing without evidence of infection. There is a small to moderate size effusiontoday. Range of motion is from 0 to approximately 110??. She has a negative barbara's, anterior, and posterior drawer. Her knee is stable with varus and valgus stress at 0 and 30 degrees. She is distally neurovascularly intact with a palpable posterior tibial pulse. IMPRESSION/DIAGNOSIS Improving 13 days status post left knee arthroscopic fat pad debridement patellar chondroplasty with lateral retinacular release TREATMENT PLAN Today we discussed the recovery. She is progressing in the right direction. We recommended she continue to ice and take NSAIDs to help with her fusion. We also provided her a script for physical therapy today to work on strength as well as range of motion. We will see her back in 4 weeks for clinical evaluation. Heber Lopez MD PGY-4 [facility] [place] Department of Orthopaedic Surgery Dictated using MModal Fluency Direct. Field Operations Supervisor variations may occur. ATTENDING ATTESTATION: Please see resident/fellow's note. I discussed the case with the resident/fellow, performed the physical examination, reviewed all tests and imaging studies, and agree with the findings and treatmentplan as documented in resident/fellow's note. 30-year-old here for follow-up for her left knee 2 weeks status post arthroscopic fat pad debridement and lateral retinacular release. Overall she is doing better. She says the swelling has improved. She is going to start physical therapy. We will see her back in 4 weeks for repeat evaluation. Logan Morel M.D. Multi Disciplined Language Analyst of Orthopaedic Surgery Sports Medicine and Shoulder Surgery Logan Morel M.D. dictating using Fluency Direct software. documented in this encounter Plan [...] of this encounter Visit Diagnoses Diagnosis Chronic pain of right knee- Primary documented in this encounter Orders Outpatient Referral Count Last Ordered Date Fir st Ordered Date AMB REFERRAL TO ORTHOPEDIC SURGERY 1 2020 documented in this encounter Care Teams Cash Applications Specialist Relationship Specialty Start Date End Date Daily Cruz MD PCP - General Family Medicine 08/01/19 03/03/21 documented as of this encounter
--- OUTSIDE RECORDS SUMMARY | 2024-02-21 19:38 | XMS_ITS | Encounter Summary ---
Author Organization [facility] Healthcare Address [address] [place] [address] Care Team Providers Care Credit Professional Name Role Phone Daily Cruz MD Primary Care Provider [phone] Reason for Visit * Reason Comments Abdominal Pain Encounter Details Date Type Department Care Team (Late st Contact Info) Description 11/29/2020 2:54 PM CDT - 11/29/2020 6:12 PM CDT Emergency [address] [address] Miguel Wray II, MD [address] [place] [id number] Gastritis without bleeding, unspecified chronicity, unspecified gastritis type (Primary Dx) Discharge Disposition: Discharge to home [...] on file 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 Gender Identity Female 03/02/2020 4:27 PM 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 Sexual Orientation Straight 07/10/2019 11 :13 PM CDT documented as of this encounter Last Filed Vital Signs Vital Sign Reading Time Taken Comments Blood Pressure 113/69 11/29/2020 5:10 PM CDT Pulse 67 11/29/2020 5:10 PM CDT Temperature 37 ??C (98.6 ??F) 11/29/2020 2:43 PM CDT Respiratory Rate 31 11/29/2020 5:10 PM CDT Oxygen Saturation 99% 11/29/2020 5:10 PM CDT Inhaled Oxygen Concentration - - Weight 127.7 kg (281 lb 8.4 oz) 11/29/2020 2:43 PM CDT Height 170.2 cm (5' 7 ) 11/29/2020 2:43 PM CDT Body Mass Index 44.09 11/29/2020 2:43 PM CDT documented in this encounter Discharge Instructions * Attachments The following attachments cannot be sent through Care Everywhere. * Gastritis (AfterCare(R) Instructions(ER/ED)) (Malagasy) documented in this encounter Medications at Time [...] a day 60 capsule 5 08/19/2020 2 sucralfate (CARAFATE) 1 gram tablet Take 1 tablet (1 g total) by mouth 4 (four) times a day 16 tablet 11/29/2020 2 SUMAtriptan (IMITREX) 50 mg tablet TAKE [...] doses in 24 hours. 10 tablet 05/20/2020 documented as of this encounter Ordered Prescriptions Prescription Sig Dispense Quantity Refills Last Filled Start Date End Date sucralfate (CARAFATE) 1 gram tablet Take 1 tablet (1 g total) by mouth 4 (four) times a day 16 tablet 11/29/2020 06/16/2021 documented in this encounter Discharge Disposition Disposition Code Departure Means Destination Discharge to home or self care documented in this encounter ED Notes * Miguel Wray II, MD - 11/29/2020 3:06 PM CDT HPI Chief Complaint Patient presents with ??? Abdominal Pain Patient complains of epigastric pain for 3 weeks with vomiting today. Patient presents emergency room for evaluation. 5:08 PM Jud Leung is a 30 y.o. female presenting to the ED c/o Patient History: Past Medical History: Diagnosis Date ??? ADHD (attention deficit hyperactivity disorder) ??? Anxiety ??? Arthritis ??? Brain concussion 2010, 2009 ??? Chronic bronchitis (CMS/HCC) ([facility]) ??? Depression ??? Gastric reflux ??? GERD (gastroesophageal reflux disease) PRN tums ??? IIH (idiopathic intracranial hypertension) Pseudotumor cerebri. reports last spinal tap 2017. currently following with PCP, previously has followed with neuro ??? Irritability ??? 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 Kidney stone 2019 ??? Low back [...] to remove endometriosis ??? FOOT SURGERY Bilateral 2019 2 left bunion, [...] acetaminophen (TYLENOL) 500 mg tablet ??? albuterol HFA (Ventolin HFA) 90 mcg/actuation inhaler ??? aspirin/acetaminophen/caffeine (EXCEDRIN EXTRA STRENGTH ORAL) ??? budesonide-formoteroL (Symbicort) 160-4.5 mcg/actuation inhaler ??? bumetanide (BUMEX) 1 mg tablet ??? diclofenac DR (VOLTAREN) 75 mg EC tablet ??? fluticasone propionate (FLONASE) 50 mcg/actuation nasal spray ??? galcanezumab-gnlm (Emgality Pen) 120 mg/mL pen injector ??? levocetirizine (XYZAL) 5 mg tablet ??? levonorgestreL (KYLEENA) IUD ??? ondansetron (ZOFRAN) 4 mg tablet ??? oxyCODONE (ROXICODONE) 5 mg immediate release tablet ??? pregabalin (LYRICA) 75 mg capsule ??? sucralfate (CARAFATE) 1 gram tablet ??? SUMAtriptan (IMITREX) 50 mg tablet ??? ubrogepant (Ubrelvy) 50 mg tablet Review of Systems Review of Systems Constitutional: Positive for appetite change. Negative for chills and fever. HENT: Negative for ear pain and sore throat. Eyes: Negative for pain and visual disturbance. Respiratory: Negative for cough and shortness of breath. Cardiovascular: Negative for chest pain and palpitations. Gastrointestinal: Positive for abdominal pain and vomiting. Epigastric pain Genitourinary: Negative for dysuria and hematuria. Musculoskeletal: Negative for arthralgias and back pain. Skin: Negative for color change and rash. Neurological: Negative for seizures and syncope. All other systems reviewed and are negative. All systems reviewed and are neg or non contributory for this patients presentation today other than as stated in the HPI . Physical Exam ED Triage Vitals [11/29/20 1443] Temp Pulse Resp BP SpO2 37 ??C (98.6 ??F) 89 20 147/83 97 % Temp src Heart Rate Source Patient Position BP Location FiO2 (%) Temporal Monitor -- Right arm -- Physical Exam Vitals and nursing note reviewed. Constitutional: General: She is not in acute distress. Appearance: She is well-developed. HENT: Head: Normocephalic and atraumatic. Eyes: Conjunctiva/sclera: Conjunctivae normal. Cardiovascular: Rate and Rhythm: Normal rate and regular rhythm. Heart sounds: Normal heart sounds. No murmur heard. Pulmonary: Effort: Pulmonary effort is normal. No respiratory distress. Breath sounds: Normal breath sounds. Abdominal: General: Bowel sounds are normal. There is no distension. Palpations: Abdomen is soft. Tenderness: There is no abdominal tenderness. There is no guarding. Comments: Patient complains of epigastric discomfort which is not increased with palpation. Musculoskeletal: Cervical back: Neck supple. Skin: General: Skin is warm and dry. Neurological: Mental Status: She is alert and oriented to person, place, and time. Psychiatric: Mood and Affect: Mood normal. Procedures [facility] Labs Reviewed URINALYSIS AND REFLEX TO MICROSCOPIC AND CULTURE - Abnormal Result Value Color, ur Yellow Clarity, ur Cloudy (*) Specific gravity, ur 1.017 pH, urine 6.0 Protein, ur ql Negative [...] tendency for uric acid stone formation. Source: [facility] [employer].Last revised 02-23-2017 URINALYSIS, MICROSCOPIC ONLY - Abnormal WBC, ur 0-5 RBC, ur 3-5 (*) Epithelial cells, squamous, ur 6-10 (*) Mucous, ur Present (*) Hyaline casts, ur 11-20 (*) Culture Reflex Comment Value: Reflex conditions for urine culture (WBC >10) not met. POCT HCG, URINE - Normal HCG, ur, POC Negative Lot Number [id number] QC Backgroud Clear Acceptable QC Control Line Acceptable CBC WITH AUTO DIFFERENTIAL WBC 9.8 Hgb 12.8 Hct 39.0 Plt 363 MPV 10.2 RBC 4.45 MCV 87.6 MCH 28.8 MCHC 32.8 RDW CV 14.6 RDW SD 46.8 NRBC abs 0.00 COMPREHENSIVE METABOLIC PANEL Sodium 140 Potassium, pl 4.2 Chloride 102 CO2 26 Anion gap 12 BUN 11 Creatinine 0.70 Glucose 118 Calcium 9.7 Bilirubin, total <0.2 Protein, pl 7.5 Albumin 4.1 Alk phos 102 ALT 15 AST 12 LIPASE Lipase 16 DIFFERENTIAL AUTO Neutrophil abs 6.3 Imm gran abs 0.0 Lymphocyte abs 2.9 Monocyte abs 0.5 Eosinophil abs 0.1 Basophil abs 0.0 Neutrophil pct 63.7 Imm gran pct 0.4 Lymphocyte pct 29.8 Monocyte pct 4.8 Eosinophil pct 0.9 Basophil pct 0.[address] Abdomen Pelvis W Contrast Final Result BP 108/62 Pulse 65 Temp 37 ??C (98.6 ??F) (Temporal) Resp 22 Ht 170.2 cm (5' 7 ) Wt 127.7kg (281 lb 8.4 oz) SpO2 98% BMI 44.09 kg/m?? MDM Number of Diagnoses or Management Options Diagnosis management comments: Gastritis, rule out gallbladder disease Amount and/or Complexity of Data Reviewed Clinical lab tests: reviewed Tests in the radiology section of CPT??: reviewed Risk of Complications, Morbidity, and/or Mortality Presenting problems: moderate Diagnostic procedures: low Management options: low General comments: Diagnosis Gastritis. Patient to continue her Prilosec l and will place the patient on some Carafate in addition. Patient to follow-up with PMD. CT showed no acute changes lab work showed no acute changes. Patient Progress Patient progress: stable This examination was transcribed using the [employer] voice recognition system without human product safety administrator. In an effort to expedite patient care, this report has not been adjusted for typographical, grammatical, and syntax by a trained coroner/medical examiner. Clinical Impression: Gastritis without bleeding, unspecified chronicity, unspecified gastritis type Miguel Wray II, MD 11/29/201707 * Barb Taylor RN - 11/29/2020 2:45 PM CDT Abdominal pain for 3 weeks, nausea last night. documented in this encounter Plan of Treatment [...] Comments CT ABDOMEN PELVIS W CONTRAST ED 11/29/2020 4:36 PM CDT POCT HCG, URINE Routine 11/29/2020 3:35 PM CDT URINALYSIS AND REFLEX TO MICROSCOPIC AND CULTURE STAT 11/29/2020 2:58 PM CDT URINALYSIS, MICROSCOPIC ONLY STAT 11/29/2020 2:58 PM CDT EGFR STAT 11/29/2020 2:50 PM CDT DIFFERENTIAL AUTO STAT 11/29/2020 2:5 0 PM CDT CBC WITH AUTO DIFFERENTIAL STAT 11/29/2020 2:50 PM CDT LIPASE STAT 11/29/2020 2:50 PM CDT COMPREHENSIVE METABOLIC PANEL STAT 11/29/2020 2:50 PM CDT documented in this encounter Results * CT Abdomen Pelvis W Contrast (11/29/2020 4:36 PM CDT) Anatomical Region Laterality Modality Body N/A Computed Tomogra phy 11/29/2020 4:43 PM CDT Narrative 11/29/2020 4:51 PM CDT EXAM DESCRIPTION: ?? CT ABDOMEN PELVIS W CONTRAST REASON FOR STUDY: ?? Abdominal pain, acute, nonlocalized ??Patient complains of epigastric pain for 3 weeks with vomiting today. TECHNIQUE: ??CT scan of the abdomen and pelvis performed with intravenous and ?? without oral contrast using helical scanning technique with dynamic intravenous contrast injection. Reconstructed coronal and sagittal MPR images reviewed. All images stored on PACS. Automated exposure control was used as a dose optimization technique for this examination. CONTRAST TYPE/DOSE: ?? 100mL of IOVERSOL 350 MG IODINE/ML INTRAVENOUS SYRINGE injected COMPARISON: ?? CT of the abdomen and pelvis dated 08/13/2019. FINDINGS: LOWER CHEST: ??No significant pulmonary abnormalities. No effusion. LIVER: ??Normal size. ??No identified cystic or solid masses. GALLBLADDER: The gallbladder is contracted limiting evaluation. ??No stones identified. No wall thickening or inflammatory changes. BILE DUCTS: ??No intrahepatic or extrahepatic ductal dilatation. SPLEEN: ??Normal size. ??No focal lesions. PANCREAS: ??No identified cystic or solid masses. No significant calcifications. No adjacent inflammation or peripancreatic fluid collections. Pancreatic duct not dilated. ADRENALS: ??Normal. KIDNEYS/URINARY TRACT: ??No identified significant cystic or solid masses. ?? There are 2 mm nonobstructing stone seen within the inferior pole of both kidneys. ??No hydronephrosis or hydroureter. Symmetric enhancement. ??Urinary bladder is unremarkable. GI: ??No dilated bowel loops. No obvious wall thickening. ??Normal appendix. ?? There scattered colonic diverticula without evidence of acute diverticulitis. PERITONEUM: ??No ascites or free air. ??Small fat containing periumbilical hernia. RETROPERITONEUM: ??No mass or adenopathy. REPRODUCTIVE: An intrauterine contraceptive device is seen within the endometrial cavity. ??No acute abnormality. VASCULATURE: ??No abdominal aortic aneurysm. MUSCULOSKELETAL: ??No significant abnormality. OTHER: ??No other abnormality. IMPRESSION: ??1. ??No acute finding. 2. ??Nonobstructing bilateral nephrolithiasis. 3. ??Colonic diverticulosis without evidence of acute diverticulitis. THIS IS AN ELECTRONICALLY VERIFIED FINAL REPORT 11/29/2020 4:51 PM - Electronically signed by Jakub Gray M.D. D: ??11/29/2020 4:51 PM T: Report ID: [id number] Reading Location: ??[id number] Procedure Note Jakub Gray, DO - 11/29/2020 EXAM DESCRIPTION: CT ABDOMEN PELVIS W CONTRAST REASON FOR STUDY: Abdominal pain, acute, nonlocalized Patient complainsof epigastric pain for 3 weeks with vomiting today. TECHNIQUE: CT scan of the abdomen and pelvis performed with intravenousand without oral contrast using helical scanning technique with dynamic intravenous contrast injection. Reconstructed coronal and sagittal MPRimages reviewed. All images stored on PACS. Automated exposure control was used as a dose optimization technique forthis examination. CONTRAST TYPE/DOSE: 100mL of IOVERSOL 350 MG IODINE/ML INTRAVENOUSSYRINGE injected COMPARISON: CT of the abdomen and pelvis dated 08/13/2019. FINDINGS: LOWER CHEST: No significant pulmonary abnormalities. No effusion. LIVER: Normal size. No identified cystic or solid masses. GALLBLADDER: The gallbladder is contracted limiting evaluation. No stones identified. No wall thickening or inflammatory changes. BILE DUCTS: No intrahepatic or extrahepatic ductal dilatation. SPLEEN: Normal size. No focal lesions. PANCREAS: No identified cystic or solid masses. No significant calcifications. No adjacent inflammation or peripancreatic fluidcollections. Pancreatic duct not dilated. ADRENALS: Normal. KIDNEYS/URINARY TRACT: No identified significant cystic or solid masses. There are 2 mm nonobstructing stone seen within the inferior pole of both kidneys. No hydronephrosis or hydroureter. Symmetric enhancement.Urinary bladder is unremarkable. GI: No dilated bowel loops. No obvious wall thickening. Normal appendix. There scattered colonic diverticula without evidence of acutediverticulitis. PERITONEUM: No ascites or free air. Small fat containing periumbilical hernia. RETROPERITONEUM: No mass or adenopathy. REPRODUCTIVE: An intrauterine contraceptive device is seen within the endometrial cavity. No acute abnormality. VASCULATURE: No abdominal aortic aneurysm. MUSCULOSKELETAL: No significant abnormality. OTHER: No other abnormality. IMPRESSION: 1. No acute finding. 2. Nonobstructing bilateral nephrolithiasis. 3. Colonic diverticulosis without evidence of acute diverticulitis. THIS IS AN ELECTRONICALLY VERIFIED FINAL REPORT 11/29/2020 4:51 PM - Electronically signed by Jakub Gray M.D. T: Report ID: [id number] Reading Location: [id number] Miguel Wray II, MD IM CT PROCEDURES Final R esult * POCT hCG, urine (11/29/2020 3:35 PM CDT) HCG, ur, POC Negative Lot Number [id number] QC Backgroud Clear Acceptable QC Control Line Acceptable Urine 11/29/2020 3:35 PM CDT us Joseph Best PA POINT OF CARE TEST ORDERABLES Final Result * (ABNORMAL) Urinalysis, microscopic only (11/29/2020 2:58 PM CDT) WBC, ur 0-5 0 - 5 /HPF [facility] RBC, ur 3-5(A) 0 - 2 /HPF [facility] Epithelial cells, squamous, ur 6-10(A) 0 - 5 /HPF [facility] Comment:Suggestive of contam ination. Consider recollection by clean catch. Mucous, ur Present(A) [facility] Hyaline casts, ur 11-20(A) 0 - 10 /LPF [facility] Culture Reflex Comment Reflex conditions for urine culture (WBC >10) not met. [facility] Urine 11/29/2020 2:58 PM CDT 11/29/2020 3:01 PM CDT Joseph [facility] URINE ORDERABLES Final Res ult [place] [id number] [facility] Department [place] [address] * (ABNORMAL) Urinalysis reflex to microscopic and culture Urine (11/29/2020 2:58 PM CDT) Color, ur Yellow Yellow [facility] Clarity, ur Cloudy(A) Clear [facility] Specific gravity, ur 1.017 1.003 - 1.030 [facility] pH, urine 6.0 [facility] Protein, ur ql Negative Negative [facility] Glucose, ur ql Negative Negative [facility] Ketones, ur Negative Negative [facility] Bilirubin, ur Negative Negative [facility] Blood, ur 1+(A) Negative [facility] Urobilinogen, ur <2.0 <2.0 mg/dL [facility] Nitrite, ur Negative Negative [facility] Leukocyte esterase, ur Negative Negative [facility] UA reflex comment Reflex to microscopic UA will be performed. [facility] Urine 11/29/2020 2:58 PM CDT 11/29/2020 3:01 PM CDT Narrative [facility] - 11/29/2020 3:07 PM CDT ?? Urine pH is affected by diet, medications, systemic acid-base disturbances, and renal tubular function. ??pH may affect urinary stone formation. ??For example, urine pH below 6.0 may help reduce the tendency for calcium phosphate stones and pH greater than 6.0 may reduce the tendency for uric acid stone formation. Source: [facility] [employer]. Last revised 02-23-2017 us Joseph [facility] MICROBIOLOGY - GENERAL ORD ERABLES Final Result [place] [address] [facility] Department [place] [address] * eGFR (11/29/2020 2:50 PM CDT) [facility] eGFR 117 mL/min/1.7 3 m2 [facility] Comment: Interpretive Data Reference Interval Normal ?>/= 90 mL/min/1.73m2 Mildly decreased* ? 60 - 89 mL/min/1.73m2 Mildly to moderately decreased ?45 - 59 mL/min/1.73m2 Moderately to severely decreased ??30 - 44 mL/min/1.73m2 Severely decreased ?15 - 29 mL/min/1.73m2 Kidney Failure ?< 15 ??mL/min/1.73m2 *Relative to young adult level Estimated glomerular filtration rate is determined by the CKD-EPI equation recommended by the National Kidney Foundation (KDIGO 2012 Clinical Practice Guideline for the Evaluation and Management of Chronic Kidney Disease. Kidney Intnl Suppl Feb 2012;3:1). The CKD-EPI equation should not be used for patients with unstable renal function and has not been validated in children and those over 70. Current interpretive data was last reviewed 2020 Blood 11/29/2020 2:50 PM CDT 11/29/2020 2:53 PM CDT us Joseph [facility] BLOOD ORDERABLES Final Res ult [place] [address] [facility] Department [place] [address] * Differential, auto (11/29/2020 2:50 PM CDT) Neutrophil abs 6.3 1.7 - 6.5 K/cumm [facility] Imm gran abs 0.0 0.0 - 0.1 K/cumm [facility] Lymphocyte abs 2.9 0.8 - 3.3 K/cumm [facility] Monocyte abs 0.5 0.2 - 0.8 K/cumm [facility] Eosinophil abs 0.1 0.0 - 0.5 K/cumm [facility] Basophil abs 0.0 0.0 - 0.1 K/cumm [facility] Neutrophil pct 63.7 % [facility] Comment: Interpretive Data Percent cell count reference ranges are not reported, since discordance with absolute values may lead to misinterpretation of CBC data. Current Interpretive Data was last revised on 2017. Imm gran pct 0.4 % [facility] Comment: Interpretive Data Percent cell count reference ranges are not reported, since discordance with absolute values may lead to misinterpretation of CBC data. Current Interpretive Data was last revised on 2017. Lymphocyte pct 29.8 % [facility] Comment: Interpretive Data Percent cell count reference ranges are not reported, since discordance with absolute values may lead to misinterpretation of CBC data. Current Interpretive Data was last revised on 2017. Monocyte pct 4.8 % [facility] Comment: Interpretive Data Percent cell count reference ranges are not reported, since discordance with absolute values may lead to misinterpretation of CBC data. Current Interpretive Data was last revised on 2017. Eosinophil pct 0.9 % [facility] Comment: Interpretive Data Percent cell count reference ranges are not reported, since discordance with absolute values may lead to misinterpretation of CBC data. Current Interpretive Data was last revised on 2017. Basophil pct 0.4 % [facility] Comment: Interpretive Data Percent cell count reference ranges are not reported, since discordance with absolute values may lead to misinterpretation of CBC data. Current Interpretive Data was last revised on 2017. Blood 11/29/2020 2:50 PM CDT 11/29/2020 2:53 PM CDT Joseph [facility] BLOOD ORDERABLES Final Res ult Performing Organization Address [facility] Co de Phone Number [address] [address] * Lipase (11/29/2020 2:50 PM CDT) Pathologist [facility] Lipase 16 10 - 99 Units/L [facility] Blood 11/29/2020 2:50 PM CDT 11/29/2020 2:53 PM CDT Joseph [facility] LAB BLOOD ORDERABLES Final Res ult Performing Organization Address [facility] de Phone Number [address] [address] * Comprehensive metabolic panel (11/29/2020 2:50 PM CDT) Pathologist [facility] Sodium 140 135 - 145 mmol/L [facility] Potassium, pl 4.2 3.3 - 4.9 mmol/L [facility] Chloride 102 97 - 110 mmol/L [facility] CO2 26 22 - 32 mmol/L [facility] Anion gap 12 2 - 15 mmol/L [facility] BUN 11 8 - 25 mg/dL [facility] Creatinine 0.70 0.60 - 1.10 mg/dL [facility] Glucose 118 70 - 199 mg/dL [facility] Comment: Interpretive Data Fasting glucose >/= [...] interpretive data was last revised 2016. Calcium 9.7 8.5 - 10.3 mg/dL [facility] Bilirubin, total <0.2 0.1 - 1.2 mg/dL [facility] Protein, pl 7.5 6.5 - 8.5 g/dL [facility] Albumin 4.1 3.5 - 5.0 g/dL [facility] Alk phos 102 40 - 130 Units/L [facility] ALT 15 7 - 45 Units/L [facility] AST 12 10 - 45 Units/L [facility] Blood 11/29/2020 2:50 PM CDT 11/29/2020 2:53 PM CDT Joseph [facility] LAB BLOOD ORDERABLES Final Res ult [facility] [address] [facility] Department of Laboratories [place], [place] [id number] * CBC with auto differential (11/29/2020 2:50 PM CDT) Pathologist [facility] WBC 9.8 3.8 - 9.9 K/cumm [facility] Hgb 12.8 11.9 - 15.5 g/dL [facility] Hct 39.0 35.6 - 45.5 % [facility] Plt 363 150 - 400 K/cumm [facility] MPV 10.2 9.1 - 12.3 fL [facility] RBC 4.45 3.90 - 5.20 M/cumm [facility] MCV 87.6 81.3 - 96.4 fL [facility] MCH 28.8 27.1 - 33.3 pg [facility] MCHC 32.8 32.3 - 35.7 g/dL [facility] RDW CV 14.6 11.1 - 14.9 % [facility] RDW SD 46.8 35.7 - 48.1 fL [facility] NRBC abs 0.00 0.00 - 0.01 K/cumm [facility] Blood 11/29/2020 2:50 PM CDT 11/29/2020 2:53 PM CDT Joseph [facility] BLOOD ORDERABLES Final Res ult [facility] Department [place] [address] documented in this encounter Visit Diagnoses Diagnosis Gastritis without bleeding, unspecified chronicity, unspecified gastritis type- Primary documented in this encounter Administered Medications Inactive Administered Medications - up to 3 most recent administrations Medication Order MAR Action Action Date Dose Rate Site aluminum-magnesium hydroxide-simethicone (MAALOX) 40-40-4 mg/mL oral suspension 30 mL 30 mL, oral, Once, On 11/29/20 at 1506, For 1 dose Given 11/29/2020 3:22 PM CDT 30 mL famotidine (PEPCID) injection 20 mg 20 mg, intravenous, Administer over 2 Minutes, Once, On 11/29/20 at 1448, For 1 dose Given 11/29/2020 3:06 PM CDT 20 mg ioversoL (OPTIRAY 350) syringe syringe 100 mL 100 mL, intravenous, Once in imaging, contrast, Starting on 11/29/20 at 1636, For 1 dose Contrast Given 11/29/2020 4:37 PM CDT 100 mL lidocaine viscous (XYLOCAINE) 2 % solution 5 mL 5 mL, oral, Once, On 11/29/20 at 1506, For 1 dose Given 11/29/2020 3:22 PM CDT 5 mL ondansetron (ZOFRAN) injection 4 mg 4 mg, intravenous, Administer over 2 Minutes, Once, On 11/29/20 at 1448, For 1 dose Given 11/29/2020 3:04 PM CDT 4 mg sodium chloride 0.9% bolus 1,000 mL 1,000 mL, intravenous, Once, On 11/29/20 at 1448, For 1 dose New Bag 11/29/2020 3:06 PM CDT 1,000 mL documented in this encounter Active and Recently Administered Medications Times are shown in CDT. Scheduled Medication Order 11/27/2020 11/28/2020 11/29/2020 aluminum-magnesium hydroxide-simethicone (MAALOX) 40-40-4 mg/mL oral suspension 30 mL (COMPLETED) 30 mL, oral, Once, On 11/29/20 at 1506, For 1 dose 1522 (Given - Provid er: Brittney Bingham RN) famotidine (PEPCID) injection 20 mg (COMPLETED) 20 mg, intravenous, Administer over 2 Minutes, Once, On 11/29/20 at 1448, For 1 dose 1506 (Given - Provid er: Brittney Bingham RN) lidocaine viscous (XYLOCAINE) 2 % solution 5 mL (COMPLETED) 5 mL, oral, Once, On 11/29/20 at 1506, For 1 dose 1522 (Given - Provid er: Brittney Bingham RN) ondansetron (ZOFRAN) injection 4 mg (COMPLETED) 4 mg, intravenous, Administer over 2 Minutes, Once, On 11/29/20 at 1448, For 1 dose 1504 (Given - Provid er: Brittney Bingham RN) sodium chloride 0.9% bolus 1,000 mL (COMPLETED) 1,000 mL, intravenous, Once, On 11/29/20 at 1448, For 1 dose 1506 (New Bag - Prov ider: Brittney Bingham RN)[id number] (Stopped - Provider: Tiffany Paredes, LEE) PRN Medication Order 11/27/2020 11/28/2020 11/29/2020 ioversoL (OPTIRAY 350) syringe syringe 100 mL (COMPLETED) 100 mL, intravenous, Once in imaging, contrast, Starting on 11/29/20 at 1636, For 1 dose 1637 (Contrast Given - Provider: Mart Weir RT) documented in this encounter Care Teams Credit Professional Relationship Specialty Start Date End Date Daily Cruz MD PCP - General Family Medicine 08/01/19 03/03/21 documented as of this encounter
--- OUTSIDE RECORDS SUMMARY | 2024-02-21 19:38 | XMS_ITS | Encounter Summary ---
Author Organization [facility] Healthcare Address [address] [place] [address] Care Team Providers Care Office Worker Name Role Phone Daily Cruz MD Primary Care Provider [phone] Reason for Visit * Reason Comments Back Pain Encounter Details Date Type Department Care Team (Late st Contact Info) Description 06/19/2021 3:08 PM CDT - 06/19/2021 4:06 PM CDT Emergency [address] [address] Kidney stone (Primary Dx) Discharge Disposition: Discharge to home [...] on file Legal Sex Female 3:37 PM BAR USEFUL OR BUSSER Gender Identity Female 03/02/2020 4:27 PM BAR USEFUL OR BUSSER Sexual Orientation Straight 07/10/2019 11 :13 PM CDT documented as of this encounter Last Filed Vital Signs Vital Sign Reading Time Taken Comments Blood Pressure 145/82 06/19/2021 2:19 PM CDT Pulse 71 06/19/2021 2:19 PM CDT Temperature 36.7 ??C (98 ??F) 06/19/2021 2:19 PM CDT Respiratory Rate 18 06/19/2021 2:19 PM CDT Oxygen Saturation 98% 06/19/2021 2:19 PM CDT Inhaled Oxygen Concentration - - Weight 117.9 kg (260 lb) 06/19/2021 2:19 PM CDT Height 170.2 cm (5' 7 ) 06/19/2021 2:19 PM CDT Body Mass Index 40.72 06/19/2021 2:19 PM CDT documented in this encounter Discharge Instructions * Discharge Instructions* Jud Laguerre PA - 06/19/2021 4:04 PM CDT Take meds as driected. Follow up with urology if you have continujd pain and don't pass the stone. 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 * Attachments The following attachments cannot be sent through Care Everywhere. * Kidney Stones (AfterCare(R) Instructions(ER/ED)) ([place]) documented in this encounter Medications at Time of Discharge acyclovir (ZOVIRAX) 5 % ointment Apply topically 5 (five) times a day for 4 days Space applications every 3 hours. 5 g 06/17/2021 2 neomycin-polymyxi n-HC (CORTISPORIN) 3.5-10,000-1 mg/mL-unit/mL-% otic suspension Administer 2 drops into each ear 4 (four) times a day for 7 days 10 mL 06/16/2021 2 valACYclovir (VALTREX) 1 gram tablet Take 1 tablet (1,000 mg total) by mouth 3 (three) times a day for 7 days 21 tablet 06/16/2021 2 acetaminophen (TYLENOL) 500 mg tablet Take [...] not swallow. 1 Inhaler 2 04/22/2020 2 fluticasone propionate (FLONASE) 50 mcg/actuation nasal sprayIndications: Cough,Nasal congestion Administer 2 sprays into each nostril daily 16 g 12/18/2019 2 furosemide (LASIX) 20 mg tablet Take 1 tablet (20 mg total) by mouth daily 30 tablet 07/01/2021 2 galcanezumab-gnlm (Emgality Pen) 120 mg/mL pen injectorIndicatio ns:Intractable chronic migraine without aura and with status migrainosus Inject 120 mg under the skin every 30 (thirty) days 1 mL 09/09/2020 2 ketorolac (TORADOL) 10 mg tablet Take 1 tablet (10 mg total) by mouth every 6 (six) hours as needed for pain 20 tablet 06/19/2021 2 levocetirizine (XYZAL) 5 mg tabletIndications :Cough,Nasal congestion Take 1 tablet (5 mg total) by mouth daily 30 tablet 12/18/2019 2 levonorgestreL (KYLEENA) IUD 1 each by intrauterine route once 3 methylPREDNISolon e (MEDROL DOSEPACK) 4 mg Dosepack Take as directed on package. 21 tablet 06/16/2021 2 ondansetron (ZOFRAN) 4 mg tablet Take 1 tablet (4 mg total) by mouth every 6 (six) hours as needed for nausea 15 tablet 06/19/2021 2 SUMAtriptan (IMITREX) 50 mg tablet TAKE 1 TABLET BY MOUTH ONCE NEEDED FOR MIGRAINE. MAY REPEAT DOSE AFTER 2 HOURS 9 tablet 09/18/2020 2 tamsulosin (FLOMAX) 0.4 mg extended release capsule Take 1 capsule (0.4 mg total) by mouth daily for 14 days 14 capsule 06/19/2021 2 documented as of this encounter Ordered Prescriptions Prescription Sig Dispense Quantity Refills Last Filled Start Date End Date ketorolac (TORADOL) 10 mg tablet Take 1 tablet (10 mg total) by mouth every 6 (six) hours as needed for pain 20 tablet 06/19/2021 2 ondansetron (ZOFRAN) 4 mg tablet Take 1 tablet (4 mg total) by mouth every 6 (six) hours as needed for nausea 15 tablet 06/19/2021 2 tamsulosin (FLOMAX) 0.4 mg extended release capsule Take 1 capsule (0.4 mg total) by mouth daily for 14 days 14 capsule 06/19/2021 2 documented in this encounter Discharge Disposition Disposition Code Departure Means Destination Discharge to home or self care documented in this encounter ED Notes * Jud Laguerre PA - 06/19/2021 3:58 PM CDT HPI Chief Complaint Patient presents with ??? Back Pain HPI 4:45 PM Jud Leung is a 30 y.o. female presenting to the ED c/o L sided flank pain. Pt statesshe has had intermittent sharp pain over the past day and some dysuria. Pt states she has a hx of kidney stones. Denies fever/chills. Patient History: Past Medical History: Diagnosis Date [...] with neuro ??? Irritability ??? 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 Kidney stone 2019 ??? Low back [...] ??? acetaminophen (TYLENOL) 500 mg tablet ??? acyclovir (ZOVIRAX) 5 % ointment ??? albuterol HFA (PROVENTIL HFA,VENTOLIN HFA,PROAIR HFA) 90 mcg/actuation inhaler ??? budesonide-formoteroL (Symbicort) 160-4.5 mcg/actuation inhaler ??? fluticasone propionate (FLONASE) 50 mcg/actuation nasal spray ??? galcanezumab-gnlm (Emgality Pen) 120 mg/mL pen injector ??? ketorolac (TORADOL) 10 mg tablet ??? levocetirizine (XYZAL) 5 mg tablet ??? levonorgestreL (KYLEENA) IUD ??? methylPREDNISolone (MEDROL DOSEPACK) 4 mg Dosepack ??? ghqcnpmj-jkcifrszs-KM (CORTISPORIN) 3.5-10,000-1 mg/mL-unit/mL-% otic suspension ??? ondansetron (ZOFRAN) 4 mg tablet ??? SUMAtriptan (IMITREX) 50 mg tablet ??? tamsulosin (FLOMAX) 0.4 mg extended release capsule ??? valACYclovir (VALTREX) 1 gram tablet Review of Systems Review of Systems Constitutional: Negative for chills and fever. HENT: Negative for ear pain and sore throat. Eyes: Negative for pain and visual disturbance. Respiratory: Negative for cough and shortness of breath. Cardiovascular: Negative for chest pain and palpitations. Gastrointestinal: Negative for abdominal pain and vomiting. Genitourinary: Positive for dysuria and flank pain. Negative for hematuria. Musculoskeletal: Negative for arthralgias and back pain. Skin: Negative for color change and rash. Neurological: Negative for seizures and syncope. All other systems reviewed and are negative. Physical Exam ED Triage Vitals [06/19/21 1419] Temp Pulse Resp BP SpO2 36.7 ??C (98 ??F) 71 18 145/82 98 % Temp src Heart Rate Source Patient Position BP Location FiO2 (%) Tympanic Monitor Sitting Left arm -- Physical Exam Vitals and nursing note reviewed. Constitutional: General: She is not in acute distress. Appearance: She is well-developed. Comments: Pleasant female, no acute distress HENT: Head: Normocephalic and atraumatic. Eyes: Conjunctiva/sclera: Conjunctivae normal. Cardiovascular: Rate and Rhythm: Normal rate and regular rhythm. Heart sounds: Normal heart sounds. No murmur heard. Pulmonary: Effort: Pulmonary effort is normal. No respiratory distress. Breath sounds: Normal breath sounds. Abdominal: General: Bowel sounds are normal. There is no distension. Palpations: Abdomen is soft. Tenderness: There is no abdominal tenderness. There is left CVA tenderness (mild). There is no guarding. Musculoskeletal: Cervical back: Neck supple. Skin: General: Skin is warm and dry. Neurological: Mental Status: She is alert and oriented to person, place, and time. Procedures MDM Labs Reviewed URINALYSIS AND REFLEX [...] tendency for uric acid stone formation. Source: [place] [employer].Last revised 02-23-2017 CBC WITH AUTO DIFFERENTIAL - Abnormal WBC 12.1 (*) Hgb 13.5 Hct 40.8 Plt 337 MPV 10.6 RBC 4.65 MCV 87.7 MCH 29.0 MCHC 33.1 RDW CV 14.7 RDW SD 47.0 NRBC abs 0.00 DIFFERENTIAL AUTO - Abnormal Neutrophil abs 7.2 (*) Imm gran abs 0.0 Lymphocyte abs 4.2 (*) Monocyte abs 0.7 Eosinophil abs 0.0 Basophil abs 0.0 Neutrophil pct 59.1 Imm gran pct 0.3 Lymphocyte pct 34.6 Monocyte pct 5.4 Eosinophil pct 0.3 Basophil pct 0.3 URINALYSIS, MICROSCOPIC ONLY - Abnormal WBC, ur 0-5 RBC, ur 0-2 Epithelial cells, squamous, ur 1-5 Bacteria, ur Trace (*) Mucous, ur Present (*) Culture Reflex Comment Value: Reflex conditions for urine culture (WBC >10) not met. POCT HCG, URINE - Normal HCG, ur, POC Negative Lot Number [id number] QC Backgroud Clear Acceptable QC Control Line Acceptable COMPREHENSIVE METABOLIC PANEL Sodium 136 Potassium, pl 3.8 Chloride 99 CO2 25 Anion gap 12 BUN 11 Creatinine 0.80 Glucose 81 Calcium 9.6 Bilirubin, total 0.3 Protein, pl 8.1 Albumin 4.7 Alk phos 106 ALT 12 AST [address] Abdomen Pelvis WO Contrast Final Result BP 145/82 (BP Location: Left arm, Patient Position: Sitting) Pulse 71 Temp 36.7 ??C (98 ??F) (Tympanic) Resp 18 Ht 170.2 cm (5' 7 ) Wt 117.9 kg (260 lb) SpO2 98% BMI 40.72 kg/m?? ED Course: UA with 1+ blood, WBC 12.1. Pt feels some improvement after medication. Dc'd home with RTER precautions, flomax, toradol, zofran. Pt well appearing CT IMPRESSION: 1. No ureteral calculi or obstructive uropathy. No acute finding. 2. Bilateral nephrolithiasis. 3. Additional findings as detailed. Disposition: home This examination was transcribed using the [place] voice recognition system without human lead database developer. In an effort to expedite patient care, this report has not been adjusted for typographical, grammatical, and syntax by a trained medical driver. Clinical Impression: Kidney stone Jud Laguerre PA 06/19/211957 Cosigned by Clifford Parmar MD at 06/20/2021 2:17 PM CDT Associated attestation - Clifford Parmar MD - 06/20/2021 2:17 PM CDT ED Attestation This patient was independently evaluated by the APC. I was available for immediate consultation andin-person evaluation if required but was not asked to do so. * Ignacia Mora RN - 06/19/2021 2:21 PM CDT Pt presents to ED with back pain. documented in this encounter Plan of Treatment [...] Date/Time Associated Diagnosis Comments CT ABDOMEN PELVIS WO CONTRAST ED 06/19/2021 3:35 PM CDT POCT HCG, URINE Routine 06/19/2021 2:36 PM CDT EGFR STAT 06/19/2021 2:34 PM CDT DIFFERENTIAL AUTO STAT 06/19/2021 2:3 4 PM CDT URINALYSIS AND REFLEX TO MICROSCOPIC AND CULTURE STAT 06/19/2021 2:34 PM CDT CBC WITH AUTO DIFFERENTIAL STAT 06/19/2021 2:34 PM CDT URINALYSIS, MICROSCOPIC ONLY STAT 06/19/2021 2:34 PM CDT COMPREHENSIVE METABOLIC PANEL STAT 06/19/2021 2:34 PM CDT documented in this encounter Results * CT Abdomen Pelvis WO Contrast (06/19/2021 3:35 PM CDT) Anatomical Region Laterality Modality Body N/A Computed Tomogra phy 06/19/2021 3:40 PM CDT Narrative 06/19/2021 3:48 PM CDT EXAM DESCRIPTION: ?? CT ABDOMEN PELVIS WO CONTRAST REASON FOR STUDY: ?? L flank pain ?? Pt came in w/mid back pain that radiates to left side that started yesterday morning. Pt has a hx of endometriosis no other surgeries ?? TECHNIQUE: CT scan of the abdomen and pelvis performed without intravenous and ??without ??oral contrast using helical scanning technique. Reconstructed coronal and sagittal MPR images reviewed. All images stored on PACS. ?? Automated exposure control was used as a dose optimization technique for this examination. COMPARISON: ?? CT of the abdomen and pelvis dated 11/29/2020. FINDINGS: The sensitivity for detection of visceral lesions is diminished without the use of intravenous contrast. LOWER CHEST: ?? No significant pulmonary abnormalities. No effusion. LIVER: ?? Normal size. ??No identified cystic or solid masses. GALLBLADDER: ?? No stones identified. No wall thickening or inflammatory changes. BILE DUCTS: ?? No intrahepatic or extrahepatic ductal dilatation. SPLEEN: ?? Normal size. ??No focal lesions. PANCREAS: ?? No identified cystic or solid masses. ??No significant calcifications. No adjacent inflammation or peripancreatic fluid collections. Pancreatic duct not dilated. ADRENALS: ?? Normal. KIDNEYS/URINARY TRACT: ?? No identified significant cystic or solid masses. ?? Bilateral nonobstructing renal calculi are noted measuring up to 3 mm within the inferior pole of the left kidney. ??No ureteral calculi. ??No hydronephrosis or hydroureter. ?Urinary bladder is unremarkable. GI: ?? No dilated bowel loops. No obvious wall thickening. ??Normal appendix. ?? No significant diverticular disease. PERITONEUM: ?? No ascites or free air. RETROPERITONEUM: ?? No mass or adenopathy. REPRODUCTIVE: ?? Intrauterine contraceptive device is seen within the endometrial cavity. ??Otherwise, unremarkable. VASCULATURE: ?? No abdominal aortic aneurysm. MUSCULOSKELETAL: ?? No acute abnormality. ?? Very mild scattered degenerative changes are seen within the lower thoracic spine. OTHER: ?? No other abnormality. IMPRESSION: 1. ??No ureteral calculi or obstructive uropathy. ?? No acute finding. 2. ??Bilateral nephrolithiasis. 3. ??Additional findings as detailed. THIS IS AN ELECTRONICALLY VERIFIED FINAL REPORT 06/19/2021 3:48 PM - Electronically signed by ??Jakub Gray M.D. D: ??06/19/2021 3:48 PM T: Report ID: [id number] Reading Location: ??[id number] Procedure Note Jakub Gray, DO - 06/19/2021 EXAM DESCRIPTION: CT ABDOMEN PELVIS WO CONTRAST REASON FOR STUDY: L flank pain Pt came in w/mid back pain that radiates to left side that startedyesterday morning. Pt has a hx of endometriosis no other surgeries TECHNIQUE: CT scan of the abdomen and pelvis performed without intravenousand without oral contrast using helical scanning technique. Reconstructed coronal and sagittal MPR images reviewed. All images stored on PACS. Automated exposure control was used as a dose optimization technique forthis examination. COMPARISON: CT of the abdomen and pelvis dated 11/29/2020. FINDINGS: The sensitivity for detection of visceral lesions is diminished without the use of intravenous contrast. LOWER CHEST: No significant pulmonary abnormalities. No [...] No identified significant cystic or solid masses. Bilateral nonobstructing renal calculi are noted measuring up to 3 mmwithin the inferior pole of the left kidney. No ureteral calculi. Nohydronephrosis or hydroureter. Urinary bladder is unremarkable. GI: No dilated bowel loops. No obvious wall thickening. Normalappendix. No significant diverticular disease. PERITONEUM: No ascites or free air. RETROPERITONEUM: No mass or adenopathy. REPRODUCTIVE: Intrauterine contraceptive device is seen within the endometrial cavity. Otherwise, unremarkable. VASCULATURE: No abdominal aortic aneurysm. MUSCULOSKELETAL: No acute abnormality. Very mild scattereddegenerative changes are seen within the lower thoracic spine. OTHER: No other abnormality. IMPRESSION: 1. No ureteral calculi or obstructive uropathy. No acute finding. 2. Bilateral nephrolithiasis. 3. Additional findings as detailed. THIS IS AN ELECTRONICALLY VERIFIED FINAL REPORT 06/19/2021 3:48 PM - Electronically signed by Jakub Gray M.D. T: Report ID: [id number] Reading Location: [id number] Jud MOJICA IMG CT PROCEDURES Final Resu lt * POCT hCG, urine (06/19/2021 2:36 PM CDT) HCG, ur, POC Negative Lot Number [id number] QC Backgroud Clear Acceptable QC Control Line Acceptable Urine 06/19/2021 2:36 PM CDT Jud MOJICA POINT OF CARE TEST ORDERABLE S Final Result * eGFR (06/19/2021 2:34 PM CDT) Pathologist [facility] eGFR 102 mL/min/1. 73 m2 ANGELICA VERDUGO [...] interpretive data was last reviewed 2020. Blood 06/19/2021 2:34 PM CDT 06/19/2021 2:38 PM CDT Jud MOJICA LAB BLOOD ORDERABLES Final R esult Performing Organization Address [facility] Co de Phone Number [facility] [address] [address] * (ABNORMAL) Urinalysis, microscopic only (06/19/2021 2:34 PM CDT) Pathologist [facility] WBC, ur 0-5 0 - 5 /HPF [facility] RBC, ur 0-2 0 - 2 /HPF [facility] Epithelial cells, squamous, ur 1-5 0 - 5 /HPF [facility] Bacteria, ur Trace(A) [facility] Mucous, ur Present(A) [facility] Culture Reflex Comment Reflex conditions for urine culture (WBC >10) not met. [facility] Urine 06/19/2021 2:34 PM CDT 06/19/2021 2:40 PM CDT Jud MOJICA LAB URINE ORDERABLES Final [facility] Performing Organization Address [facility] de Phone Number [address] [address] * (ABNORMAL) Differential, auto (06/19/2021 2:34 PM CDT) Neutrophil abs 7.2(H) 1.7 - 6.5 K/cumm [facility] Imm gran abs 0.0 0.0 - 0.1 K/cumm [facility] Lymphocyte abs 4.2(H) 0.8 - 3.3 K/cumm [facility] Monocyte abs 0.7 0.2 - 0.8 K/cumm [facility] Eosinophil abs 0.0 0.0 - 0.5 K/cumm [facility] Basophil abs 0.0 0.0 - 0.1 K/cumm [facility] Neutrophil pct 59.1 % [facility] Comment: Interpretive Data Percent cell count reference ranges are not reported, since discordance with absolute values may lead to misinterpretation of CBC data. Current Interpretive Data was last revised on 2017. Imm gran pct 0.3 % [facility] Comment: Interpretive Data Percent cell count reference ranges are not reported, since discordance with absolute values may lead to misinterpretation of CBC data. Current Interpretive Data was last revised on 2017. Lymphocyte pct 34.6 % [facility] Comment: Interpretive Data Percent cell count reference ranges are not reported, since discordance with absolute values may lead to misinterpretation of CBC data. Current Interpretive Data was last revised on 2017. Monocyte pct 5.4 % [facility] Comment: Interpretive Data Percent cell count reference ranges are not reported, since discordance with absolute values may lead to misinterpretation of CBC data. Current Interpretive Data was last revised on 2017. Eosinophil pct 0.3 % [facility] Comment: Interpretive Data Percent cell count reference ranges are not reported, since discordance with absolute values may lead to misinterpretation of CBC data. Current Interpretive Data was last revised on 2017. Basophil pct 0.3 % [facility] Comment: Interpretive Data Percent cell count reference ranges are not reported, since discordance with absolute values may lead to misinterpretation of CBC data. Current Interpretive Data was last revised on 2017. Blood 06/19/2021 2:34 PM CDT 06/19/2021 2:38 PM CDT Jud MOJICA LAB BLOOD ORDERABLES Final R esult [facility] [address] [facility] Department [place] [address] * (ABNORMAL) Urinalysis reflex to microscopic and culture Urine (06/19/2021 2:34 PM CDT) Color, ur Yellow Yellow [facility] Clarity, ur Clear Clear [facility] Specific gravity, ur 1.016 1.003 - 1.030 [facility] pH, urine 6.0 [facility] Protein, ur ql Negative Negative [facility] Glucose, ur ql Negative Negative [facility] Ketones, ur Negative Negative [facility] Bilirubin, ur Negative Negative [facility] Blood, ur 1+(A) Negative [facility] Urobilinogen, ur <2.0 <2.0 mg/dL [facility] Nitrite, ur Negative Negative [facility] Leukocyte esterase, ur Negative Negative [facility] UA reflex comment Reflex to microscopic UA will be performed. [facility] Urine 06/19/2021 2:34 PM CDT 06/19/2021 2:40 PM CDT Narrative [facility] - 06/19/2021 2:46 PM CDT ?? Urine pH is affected by diet, medications, systemic acid-base disturbances, and renal tubular function. ??pH may affect urinary stone formation. ??For example, urine pH below 6.0 may help reduce the tendency for calcium phosphate stones and pH greater than 6.0 may reduce the tendency for uric acid stone formation. Source: [facility] [employer]. Last revised 02-23-2017 Jud MOJICA LAB MICROBIOLOGY - GENERAL O RDERABLES Final Result [facility] [address] [facility] Department [place] [address] * Comprehensive metabolic panel (06/19/2021 2:34 PM CDT) Sodium 136 135 - 145 mmol/L [facility] Potassium, pl 3.8 3.3 - 4.9 mmol/L [facility] Chloride 99 97 - 110 mmol/L [facility] CO2 25 22 - 32 mmol/L [facility] Anion gap 12 2 - 15 mmol/L [facility] BUN 11 8 - 25 mg/dL [facility] Creatinine 0.80 0.60 - 1.10 mg/dL [facility] Glucose 81 70 - 199 mg/dL [facility] Comment: Interpretive Data Fasting glucose >/= [...] interpretive data was last revised 2016. Calcium 9.6 8.5 - 10.3 mg/dL [facility] Bilirubin, total 0.3 0.1 - 1.2 mg/dL [facility] Protein, pl 8.1 6.5 - 8.5 g/dL [facility] Albumin 4.7 3.5 - 5.0 g/dL [facility] Alk phos 106 40 - 130 Units/L [facility] ALT 12 7 - 45 Units/L [facility] AST 10 10 - 45 Units/L [facility] Blood 06/19/2021 2:34 PM CDT 06/19/2021 2:38 PM CDT us Jud MOJICA LAB BLOOD ORDERABLES Final R esult [place] [id number] [facility] Department [place] [address] * (ABNORMAL) CBC with auto differential (06/19/2021 2:34 PM CDT) WBC 12.1(H) 3.8 - 9.9 K/cumm [facility] Hgb 13.5 11.9 - 15.5 g/dL [facility] Hct 40.8 35.6 - 45.5 % [facility] Plt 337 150 - 400 K/cumm [facility] MPV 10.6 9.1 - 12.3 fL [facility] RBC 4.65 3.90 - 5.20 M/cumm [facility] MCV 87.7 81.3 - 96.4 fL [facility] MCH 29.0 27.1 - 33.3 pg [facility] MCHC 33.1 32.3 - 35.7 g/dL [facility] RDW CV 14.7 11.1 - 14.9 % [facility] RDW SD 47.0 35.7 - 48.1 fL [facility] NRBC abs 0.00 0.00 - 0.01 K/cumm [facility] Blood 06/19/2021 2:34 PM CDT 06/19/2021 2:38 PM CDT us Jud MOJICA LAB BLOOD ORDERABLES Final R esult [facility] [id number] [facility] Department [place] [address] documented in this encounter Visit Diagnoses Diagnosis Kidney stone- Primary Calculus of kidney documented in this encounter Administered Medications Inactive Administered Medications - up to 3 most recent administrations Medication Order MAR Action Action Date Dose Rate Site ketorolac (TORADOL) 30 mg/mL (1 mL) injection 30 mg 30 mg, intravenous, Once, On 06/19/21 at 1425, For 1 dose, For Adult IV push, administer over 15 seconds Given 06/19/2021 2:39 PM CDT 30 mg ondansetron (ZOFRAN) injection 4 mg 4 mg, intravenous, Administer over 2 Minutes, Once, On 06/19/21 at 1425, For 1 dose Given 06/19/2021 2:39 PM CDT 4 mg sodium chloride 0.9% bolus 1,000 mL 1,000 mL, intravenous, Once, On 06/19/21 at 1425, For 1 dose New Bag 06/19/2021 2:38 PM CDT 1,000 mL tamsulosin (FLOMAX) extended release capsule 0.4 mg 0.4 mg, oral, Once, On 06/19/21 at 1425, For 1 dose, Do not crush, chew, cut, dissolve, open or otherwise manipulate tablet/capsule., Indications: UrolithiasisIndications:Urolithi asis Given 06/19/2021 2:41 PM CDT 0.4 mg documented in this encounter Discontinued Medications Medication Sig Discontinue Reason Start Date End Da te aspirin/acetaminophen/ca ffeine (EXCEDRIN EXTRA STRENGTH ORAL)Indications:headach es Take 2 tablets by mouth as needed 06/19/2021 documented as of this encounter Active and Recently Administered Medications Times are shown in CDT. Scheduled Medication Order 06/17/2021 06/18/2021 06/19/2021 ketorolac (TORADOL) 30 mg/mL (1 mL) injection 30 mg (COMPLETED) 30 mg, intravenous, Once, On 06/19/21 at 1425, For 1 dose, For Adult IV push, administer over 15 seconds 1439 (Given - Provid er: Baldomero Melchor RN) ondansetron (ZOFRAN) injection 4 mg (COMPLETED) 4 mg, intravenous, Administer over 2 Minutes, Once, On 06/19/21 at 1425, For 1 dose 1439 (Given - Provid er: Baldomero Melchor RN) sodium chloride 0.9% bolus 1,000 mL (COMPLETED) 1,000 mL, intravenous, Once, On 06/19/21 at 1425, For 1 dose 1438 (New Bag - Prov ider: Baldomero Melchor RN)[id number] (Stopped - Provider: Ignacia Mora RN) tamsulosin (FLOMAX) extended release capsule 0.4 mg (COMPLETED) 0.4 mg, oral, Once, On 06/19/21 at 1425, For 1 dose, Do not crush, chew, cut, dissolve, open or otherwise manipulate tablet/capsule., Indications: Urolithiasis 1441 (Given - Provid er: Baldomero Melchor RN) documented in this encounter Care Teams Office Worker Relationship Specialty Start Date End Date Daily Cruz MD PCP - General Family Medicine 03/04/21 documented as of this encounter
--- OUTSIDE RECORDS SUMMARY | 2024-02-21 19:38 | XMS_ITS | Encounter Summary ---
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 Class: Internal Referral Ordering User: Tracy Pandya RN Auth Provider: CAROLYN MOREL Provider: ?? Diagnosis: ?? Department: ?? Sched Instruct: ?? Comment: ?? Order Specific Questions Question Answer Comment Testing types: Pre-procedure ?? Date of Px/chemo/treatment/placement/transfer 10/20/2020 ?? Testing site patient will be sent to: [facility] ?? Testing: COVID-19 RNA ?? Does the patient currently work in a healthcare facility with direct patient contact? No ?? Is the patient a resident of a congregate care or living setting? No ?? Is the patient ? No ?? Date testing requested: 10/17/2020 ?? Testing: COVID-19 RNA ?? Please select the performing region: [facility] documented in this encounter Plan of Treatment [...] documented as of this encounter Results * COVID-19 Coronavirus RNA Nasopharyngeal (10/17/2020 11:51 AM CDT) COVID-19 RNA Not Detected [facility] Comment: Interpretive Data Synonyms for this test include: PCR and NAAT . ??Testing performed by the [facility] Molecular Infectious Disease Laboratory. The 2019-Novel Coronavirus [...] March 19, 2020. First COVID-19 test? No ANGELICA GARDUNO Employeed in healthcare? Unknown [facility] status? Unknown [facility] Group care resident? No [facility] Hospitalized? Unknown [facility] Is patient in ICU? Unknown [facility] Symptomatic as defined by CDC? No [facility] Nasopharyngeal 10/17/2020 11 :51 AM CDT 10/17/2020 3:49 PM CDT Narrative ANGELICA GARDUNO - 10/18/2020 1:46 AM CDT What is the reason for testing?->Screening prior to scheduled procedure or surgery (batch) Carolyn Morel MD LAB MICROBIOLOGY - [facility] AL ORDERABLES Final Result [facility] Department [place] [address] documented in this encounter Visit Diagnoses Diagnosis Pre-operative laboratory examination- Primary Pre-procedural laboratory examination Pre-operative laboratory examination Pre-procedural laboratory examination documented in this encounter Care Teams Laborer Car Barn Relationship Specialty Start Date End Date Daily Cruz MD PCP - General Family Medicine 08/01/19 03/03/21 documented as of this encounter
--- OUTSIDE RECORDS SUMMARY | 2024-02-21 19:38 | XMS_ITS | Encounter Summary ---
Author Organization [facility] Healthcare Address [address] [place] [address] Care Team Providers Care Photography Professor Name Role Phone Daily Cruz MD Primary Care Provider [phone] Encounter Details Date Type Department Care Team (Late st Contact Info) Description 10/20/2020 11:30 AM CDT - 10/20/2020 12:[address] [facility] [address] [place] [id number] Logan Morel MD [address] [place] [address] [address] [place] [address] LEFT KNEE DIAGNOSTIC ARTHROSCOPY WITH FAT PAD DEBRIDEMENT, CHONDROPLASTY OF THE PATELLA AND LATERAL RETINACULAR RELEASE Surgery Details Date/Time Status Location OR Service Patient Class Case Class Case Type Trauma Case? 10/20/2020 11:30 AM Posted [facility] OPERATING ROOM OR 3 Orthopaedics Outpatient Elective Panel 1 Procedure LRB Anes Op Region Wound Class Comments LEFT KNEE DIAGNOSTIC ARTHROS COPY WITH FAT PAD DEBRIDEMENT, CHONDROPLASTY OF THE PATELLA AND LATERAL RETINACULAR RELEASE Left Choice Knee Class I - Clean Surgeon Surgeon Role Service Panel Logan Morel MD Primary Orthopaedics 1 Heber Lopez MD Resident - Assisting Orthopaed ics 1 Special Needs h/o PONV, motion/car sickness, seizures - last 2018, pseudo tumor cerebri, memory loss, chronic bronchitis documented in this encounter Social History Tobacco [...] file 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 Gender Identity Female 03/02/2020 4:27 PM CLIENT 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 Sexual Orientation Straight 07/10/2019 11 :13 PM CDT documented as of this encounter Last Filed Vital Signs Vital Sign Reading Time Taken Comments Blood Pressure 132/81 10/20/2020 9:40 AM CDT Pulse 69 10/20/2020 9:45 AM CDT Temperature 36.2 ??C (97.2 ??F) 10/20/2020 9:26 AM CD T Respiratory Rate - - Oxygen Saturation 98% 10/20/2020 9:45 AM CDT Inhaled Oxygen Concentration - - Weight 126.4 kg (278 lb 9.6 oz) 10/20/2020 9:26 AM CDT Height 170.2 cm (5' 7 ) 10/20/2020 9:26 AM CDT Body Mass Index 43.63 10/20/2020 9:26 AM CDT documented in this encounter Discharge Instructions * Discharge Instructions* Bonita Thrasher, RN - 10/20/2020 1:14 PM CDT PATIENT [...] or increasing redness around incision, please call [phone]. Follow-Up Appointment: You are scheduled to follow-up with Dr. Morel on 11/02/20 at 4:00 pm at: [facility] [address] [place] [address] If you need to change this appointment, please call [phone] Morel's accounting assistant or call the scheduling office at [phone]. documented in this encounter Medications at Time [...] with neuro ??? Irritability ??? Jaundice / platform inspector ??? Kidney stone 2019 ??? Low back [...] than a month at Unknown time ??? cdwvgzoraf-ivstoowdjcsvo-vzfgohfw-codeine (FIORICET WITH CODEINE) 28-457-31-30 mg per capsule Take 1 capsule by [...] Resident - Assisting Anesthesiologist: Angy Olmedo MD ROPEWALK ROPE MAKER: Sierra Lerma CRNA Area Manager: Marvin Lowery RN; Ying Lemons RN Scrub: [...] hours post surgery. * Pre-Procedure Instructions - Michelle Hurtado RN - 10/14/2020 7:56 AM CDT We are pleased that you and your doctor have chosen [facility] for your surgery. We hope the following information will help make your visit a pleasant one. The name of the building is [facility] [place] in [place]. D[place] [address] [place] [address] When you enter the building, look directly to your left, you will see 2 glass double doors. These double doors say [address]. Go through those double doors and check in with the cleaning and washing equipment operator. Patient has own crutches and knows how to use them. Bring pillows, leave in car. Patient has ice pack for home. Pt has [employer] ice machine. Will need Urine sample a.m. Of surgery. Please let the cleaning and washing equipment operator know if you need to empty your [...] Midnight, unless instructed to take medication by ENGINEERING LEADER at CPAP. Nogum, no mints, no candy, [...] NP Pt. Cleared for surgery at the . * Pre-Procedure Instructions - Andree Acosta NP - 10/08/2020 10:07 AM CDT [facility] Location: [facility] The night before your surgery: * Do [...] of surgery. * If having surgery at [facility], you may want to bring a credit card if you want to use our Mobile Pharmacy for your discharge medications. Mobile pharmacy is not available at [facility], the [facility], or the [place] [facility]. Outpatient Surgery: * You must [...] mcg/actuation inhaler Take morning of surgery ??? tjpiilrlwn-ngiobevvncsrs-scoxqrxu-codeine (FIORICET WITH CODEINE) 22-363-24-30 mg per capsule Don't take on day [...] Planning Perioperative Nursing Note Telephone Preoperative Evaluation ([facility]) - TELEPHONE ONLY, NO PHYSICAL [...] Self Drill Small Hexagonal - S0 - [id number] - Implanted (Left) Foot Inventory item: SYNTHES 207.740 4mm 5mm 40mm Cannulated Self Tap Self Drill Small Hexagonal Model/Cat number: [id number] Serial number: 0 Senior Production Planner: Synthes Size: 4.0x40 As of 07/16/2019 Status: Implanted Synthes 207.730 4mm 5mm 30mm Cannulated Self Tap Self Drill Small Hexagonal - S0 - [id number] - Implanted (Left) Foot Inventory item: SYNTHES 207.730 4mm 5mm 30mm Cannulated Self Tap Self Drill Small Hexagonal Model/Cat number: [id number] Serial number: 0 Senior Production Planner: Synthes Size: 4.0x30 As of 07/16/2019 Status: Implanted Synthes 207.630 4mm 5mm 1.35mm 30mm Cannulated Self Tap Self Drill Small - S0 - [id number] - Implanted (Left) Foot Inventory item: SYNTHES 207.630 4mm 5mm 1.35mm 30mm Cannulated Self Tap Self Drill Small Model/Cat number: [id number] Serial number: 0 Senior Production Planner: Synthes Size: 4.0x30 As of 07/16/2019 Status: Implanted SKIN Piercings Remaining: Yes Wound (LDAs) Type of Wound (LDA): (none) SCREENINGS STOP-Bang Total Score: 2 Capo index score: 100 NUTRITION PATIENT CARE PLANNING Advance Directives (For Healthcare) Have you reviewed your Advance Directive and is it valid for this stay?: Not applicable Advance Directive: Patient does not have advance directive Communication/Rn Supplemental Needs Communication Needs: Glasses, Contacts Patient's Preferred Language: Algerian Does caregiver's language differ from patient's?: No Is an professional driver needed? : No Assistive Devices/DME: Eyeglasses Hearing [...] in a congregate living facility (ex. assisted living/long term facility, penitentiary, [place] health [place] facility)?: No Have you tested positive for COVID-19 [...] 20 seconds. Use an alcohol- based hand landscape maintenance internship that contains at least 60% alcohol if [...] insurance card, a photo ID (like a Pyrometer Temperature Regulator's license) and a method of payment for [...] COVID Test Request Placed in Epic to [facility]. HOLIDAY hours may vary at testing site. Test to be performed on 10/17/20 at [place] [facility] [place] [address], M-F 8:30a-4:30p, Sat/Sun 8a-12:30p, Call once on [phone]. Telephone assessment performed. Patient states that they are fully vaccinated and provided the following vaccination information: Senior Production Planner pfizer, Vaccination Date(s) 08/25/20 and 09/15/20COVID Vaccination [...] your surgery gets rescheduled, you MUST call [phone] Monday-Monday 8am-4:30pm to get your COVID testing rescheduled or your lab order will not be available at Testing Sites. COVID Testing is only valid for up to 96 hours prior to surgery date, unless otherwise specified. If you are unable to reach staff at the above phone number, please call the CPAP Staff at [phone]. This number cannot order a lab test, [...] 20 seconds. Use an alcohol- based hand landscape maintenance internship that contains at least 60% alcohol if soap and water are not available. All patients should read below section: All visitors/patients are being asked to wear a clean mask when entering the hospital. COVID 19 Updates & Visitor Policy: Please access [email or web address] for the most updated information. For MyChart information, to activate account or password recovery, please go to [email or web address] or call [phone] (toll-free: [phone]). Information for Suicide Prevention: National Suicide Prevention Lifeline (2-005-023-ILZD (2631)). Surgery Times: For patients [facility], if your surgeon's office has not notified you of your surgery time by NOON THE BUSINESS DAY BEFORE your surgery, please call the surgery center [phone]. documented in this encounter Plan of Treatment [...] 10/20/2020 10:26 AM CDT POCT PREOP SCREEN (AHW-EE-UVC-BUN-CR -HBG-HCT) Routine 10/20/2020 10:09 AM CDT documented in this encounter Results * POCT hCG, urine (10/20/2020 10:26 AM CDT) HCG, ur, POC Negative Lot Number 123 QC Backgroud Clear Acceptable QC Control Line Acceptable Urine 10/20/2020 10:2 6 AM CDT us Chavo Cespedes MD POINT OF CARE TEST ORDERABLES Final Result * POCT Preop screen (apdda-Vv-Dxl-BEE-Bq-Mao-Hct) (10/20/2020 10:09 AM CDT) K POC 4.2 3.3 - 4.9 mmol/L ANGELICA BILLS Comment: Interpretive Data Unable to assess hemolysis. ??Invitro hemolysis causes falsely elevated potassium. Current Interpretive Data was last revised on 2019. Blood 10/20/2020 10:0 9 AM CDT 10/20/2020 10:09 AM CDT us Logan Morel MD LAB POCT ORDERABLES - DE VICE Final Result ANGELICA BILLS [facility] Department [place] [address] documented in this encounter Visit Diagnoses Diagnosis Acute pain of left knee Patellar maltracking, left Left knee pain, unspecified chronicity Patellar maltracking, left documented in this encounter [...] 10:12 AM CDT 30 mL/hr 30 mL/hr Lactated Ringer's (LR) irrigation As needed, Starting on Mon10/20/20 at 1220, Intra-Op Given 10/20/2020 12:20 PM CDT 6,000 mL Operative Joint Spac e lidocaine PF (XYLOCAINE) 10 mg/mL (1 %) [...] Reason Start Date End Da te butalbital-acetaminoph uc-eysdlama-znkydss (FIORICET WITH CODEINE) 47-471-33-30 mg per capsuleIndications:Int ractable chronic migraine without [...] mL, intra-catheter, As needed, line care, Flush Kasie Block Hep Locks to keep vein open., [...] 1 10/20/2020 Lactated Ringer's (LR) infusion 1 meperidine (DEMEROL) preserv ative free injection 12.5 mg 1 10/20/2020 naloxone (NARCAN) 0.4 mg/mL injection 0.04-0.4 mg 1 10/20/2020 ondansetron (ZOFRAN) injection 4 mg 1 10/20 scopolamine patch 72 hour 1 patch 1 021 sodium chloride 0.9% flush 0.5-20 mL 1 08/2020 documented in this encounter Care Teams Photography Professor Relationship Specialty Start Date End Date Daily Cruz MD PCP - General Family Medicine 08/01/19 03/03/21 documented as of this encounter
--- OUTSIDE RECORDS SUMMARY | 2024-02-21 19:38 | XMS_ITS | Encounter Summary ---
Author Organization [facility] Healthcare Address [address] [place] [address] Care Team Providers Care Cheese Grader Name Role Phone Daily Cruz MD Primary Care Provider [phone] Encounter Details Date Type Department Care Team (Late st Contact Info) Description 10/20/2020 11:25 AM CDT Anesthesia Event [facility] [address] [place] [id number] Angy Olmedo MD [address] [place] [address] Andree Acsota NP [address] [facility] [id number] [place] [address] Anesthesia Record Procedure Summary Procedure Name Responsible Anesthesiologist Anesthesia Start Time Anesthesia Stop Time LEFT KNEE DIAGNOSTIC ARTHROSCOPY WITH FAT PAD DEBRIDEMENT, CHONDROPLASTY OF THE PATELLA AND LATERAL RETINACULAR RELEASE (Left: Knee) Angy Olmedo MD 10/20/20 1125 10/20/20 1242 Events Date Time Event Comment 10/20/2020 1010 1051 AN Equip Check 1125 An Start 1130 In Room 1132 An Start Data 1137 An Induction The patient was reevaluated immediately before moderate or deep sedation use and before anesthesia induction. 1140 An Intubation 1141 Anesthesia Ready 1155 Proc Start 1155 Incision Start 1225 Local injected by surgeon 1228 An Extubation 1229 Proc Fin 1232 Out of Room 1232 an stop data 1242 Handoff to RN I completed my handoff [...] Patient disposition at the time of handoff: PACU 1242 An Stop Meds Name Total midazolam 2 mg/2 mL 2 mg fentaNYL PF 100 mcg Lidocaine IV 1% PF 100 mg propofol 200 mg rocuronium 20 mg neostigmine syringe 1 mg/mL 3 mg glycopyrrolate 0.4 mg ondansetron PF 8 mg dexamethasone 4 mg/ml 10 mg ceFAZolin (ANCEF) 3,000 mg/30 mL in ster ile water (premix) 3,000 mg 3,000 mg ketorolac 30 mg/mL 30 mg diphenhydrAMINE 12.5 mg Lactated Ringer's (LR) infusion 1,400 mL * Agents Name O2 Sevoflurane Inspired Sevoflurane * Blood No blood administrations on file. Lines, Drains, and Airways Type Details Placement Removal Peripheral IV Placement Date: 10/20/20; Placement Time: 1008; Catheter Size: 20 G; Orientation: Left, Posterior; Location: Hand; Site Prep: Chlorhexidine; Technique: Anatomical landmarks; Inserted by: Dr. Galdamez; Insertion Attempts: 1; Patient Tolerance: Tolerated well; Removal Date: 10/20/20; Removal Time: 1129 10/20/20 1008 by Ally Ambrose RN 10/20/20 1129 by Neetu Santoyo, LEE Peripheral IV Placement Date: 10/20/20; Placement Time: 1130; Catheter Size: 22 G; Orientation: Posterior, Right; Location: Hand; Site Prep: Chlorhexidine; Technique: Anatomical landmarks; Inserted by: Dr. Olmedo; Insertion Attempts: 1; Patient Tolerance: Tolerated well; Removal Date: 10/20/20; Removal Time: 1350; Removal Reason: Discharge 10/20/20 1130 by Neetu Santoyo RN 10/20/20 1350 by Bonita Thrasher RN ETT Placement Date: 10/20/20; Placement Time: 1202 (created via procedure documentation); Technique: Direct laryngoscopy; Type: ETT - single; Single Lumen Tube Size: 6.5 mm; Cuffed: Yes; Laryngoscope: Magaly; Blade Size: 3; Location: Oral; Grade View: Grade I; Insertion Attempts: 1; Placement Verification: Auscultation, Capnometry; Airway Comment: Easy and atraumatic intubation. Despite preoxygenation with 100% O2 for at least 5 minutes and HOB raised appx 20-30 degrees, patient desaturated very fast to 85% after quick intnubation.; Removal Date: 10/20/20; Removal Time: 1228 10/20/20 1202 by Sierra Lerma CRNA 10/20/20 1228 by Sierra Lerma CRNA RETIRED Surgical Site 10/20/20; 1202; Le ft; Leg; surgical incisions well approximated; 10/20/20; 1350; Discharge 10/20/20 1202 by Ying Lemons RN 10/20/20 1350 by Bonita Thrasher RN documented in this encounter Social History [...] on file Legal Sex Female 3:37 PM CLINICAL IMMUNOLOGIST Gender Identity Female 03/02/2020 4:27 PM CLINICAL IMMUNOLOGIST Sexual Orientation Straight 07/10/2019 11 :13 PM CDT documented as of this encounter OR Notes * Anesthesia Postprocedure Evaluation - Angy Olmedo MD - 10/20/2020 2:32 PM CDT Patient: Jud Leung Procedure Summary Date: 10/20/20 Room / Location: [facility] 3 / [facility] Anesthesia Start: 1125 Anesthesia Stop: 1242 Procedure: LEFT KNEE DIAGNOSTIC ARTHROSCOPY WITH FAT PAD DEBRIDEMENT, CHONDROPLASTY OF THE PATELLA AND LATERAL RETINACULAR RELEASE (Left Knee) Diagnosis: Left knee pain, unspecified chronicity Patellar maltracking, left (Left knee pain, unspecified chronicity [M25.562]Patellar maltracking, 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]; ) Providers: Logan Morel MD Responsible Provider: Angy Olmedo MD Anesthesia Type: general ASA Status: 3 Anesthesia Type: general Last vitals BP 108/74 Pulse 59 Temp 36.6 ??C (97.9 ??F) (Temporal) Resp 24 SpO2 93% Anesthesia Post Evaluation Patient location during evaluation: PACU Patient participation: complete - patient participated Level of consciousness: fully awake Pain score: 5 Pain management: adequate Airway patency: adequate Evidence of recall: no Cardiovascular status: hemodynamically stable and acceptable Respiratory status: acceptable and room air Hydration status: acceptable Pt is: normothermic Nausea/Vomiting status: none No complications documented. * Anesthesia Procedure Notes - Sierra Lerma CRNA - 10/20/2020 12:00 PM CDTAssociated Order(s): Airway Airway Patient location: OR Urgency: elective Indications for airway management: anesthesia Difficult airway: no Staff: Placed by: SPA CONSULTANT: iSerra Lerma CRNA Airway prep: Preoxygenated: yes Patient position: sniffing Spontaneous ventilation during airway: absent Sedation level during airway: GA Final airway details: Final airway type: endotracheal airway Tube type: ETT ETT size: 6.5 mm Cuffed: yes Technique used for successful ETT placement: direct laryngoscopy Devices/Methods used in placement: intubating stylet Insertion site: oral Blade type: Magaly Blade size: 3 Cormack-Lehane (direct): grade I - full view of glottis Cuff volume: 7 mL Cuff inflated with: air ETT to lips: 22 cm Placement verified by: auscultation and CO2 detection Airway secured with: silk tape Number of attempts: 1 Additional comments: Easy and atraumatic intubation. Despite preoxygenation with 100% O2 for at least 5 minutes and HOB raised appx 20-30 degrees, patient desaturated very fast to 85% after quick intnubation. * Anesthesia Preprocedure Evaluation - Angy Olmedo MD - 10/09/2020 12:08 PM CDT Images from the original note were not included. [facility] Preoperative Assessment and Planning Preoperative Evaluation Record Evaluation type/location: [facility]AP from [facility] Planned procedure site: [facility] Date: 10/09/20 NOTE: This note represents a preoperative evaluation initiated via telephone interview. NO PHYSICALEXAM was performed at the time of initial assessment. A physical exam may be added to this note anddocumented below. Anesthesia Evaluation Jud Leung is a 30 y.o. female Procedure(s): LEFT DIAGNOSTIC KNEE ARTHROSCOPY, FAT PAD DEBRIDEMENT, POSSIBLE LATERAL RETINACULAR RELEASE LEFT Pre-Op Diagnosis Codes: * Left knee pain, unspecified chronicity [M25.562] * Patellar maltracking, 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] HISTORY HPI 30 year old female with history of Left lateral calf and foot strain. She is scheduled for diagnostic left knee arthroscopy, fat pad debridement possible lateral retinacular release with Dr. Morel. Past Medical History Information obtained from: patient and chart. Neurological + Seizures (off medication since 2018 with no further seizure activity, EEG negative) + Psychiatric history (major depression age 15-18, anxiety, ADHD - no longer medication) - depression and anxiety Pertinent negatives: neuromuscular disease; CVA/stroke; TIA; CEA; ICA stenosis; dementia/mild cognitive impairment and carotid artery stent Comments: Rathke's cleft cyst Pseudotumor cerebri - no recent treatment or symptoms Stopped seeing neurology but new PCP advised to see a new one Cardiovascular Pertinent negatives: hypertension ; CAD ; CT ; CABG ; valvular heart disease; valve replacement; atrial fibrillation; arrhythmia; pacemaker/ICD; PVD; DVT/PE; negative for CHF; drug-eluting stent(s); bare metal stent(s); coronary angioplasty and hyperlipidemia Respiratory Pertinent negatives: COPD; asthma; sleep apnea (WALTER); pulmonary hypertension; no O2 use outside thehospital and non-smoker Comments: Reactive airway disease with inhaler only used during URI Denies h/o PFT, PNA Hepatic / Heme Pertinent negatives: liver disease; history of anemia; history of thrombocytopenia and history of Robert positive Gastrointestinal + GERD (Tums PRN) - PRN medication use only. Symptoms < 1x/week. Pertinent negatives: hiatal hernia Renal / + Nephrolithiasis (nonobstructive renal stones per pt) Pertinent negatives: renal disease and dialysis Musculoskeletal/Pain + Chronic pain (bilateral feet, L knee) + Headaches (10-15 headaches per month, almost daily ) - migraine headaches. Pertinent negatives: chronic opioid use and previous treatment for opioid use disorder Endocrine / Other + Obesity (BMI >30)- morbid obesity (BMI>40). + Infectious disease (UTI over 2 years ago) - UTI. + Eye disorder (diplopia r/t cerebri or eye muscle weakness per pt) Pertinent negatives: thyroid disease; cancer history; rheumatological disease and transplanted organ Diabetes: insulin resistant - used to take to metformin stopped 2 years ago -no longer seeing endocrinology. Functional Capacity Functional capacity: <4 METs Functional capacity limited by a non-cardiovascular, non-pulmonary condition. Comments: Unable to climb 2 flights of stairs or walk 4 blocks due to L knee pain Review of Systems + chronic pain (bilateral feet, L knee) Pertinent negatives: productive cough; wheezing; SOB; recent cold/flu; fever; chest pain; palpitations; orthopnea; PND; previous transfusion; melena/hematochezia; bleeding problems; syncope; dizziness; hard of hearing; vision loss; heartburn and dysphagiaDentures: occlusal splint worn daily for TMJ. Comments: Denies symptoms suggestive of urinary tract infection. PAT Summary and Plans Cardiac risk classification of planned procedure: low cardiac risk. Preoperative assessment status: complete. Additional comments: Jud Leung is a 30 y.o. female who is being evaluated prior to undergoing a low cardiac risk surgery. Revised Cardiac Risk Index factors are (none) for a total RCRI of 0 out of 6. Functional capacity is <4 METs. Obstructive sleep apnea (WALTER) screening status is STOP-Bang=2 suggesting low risk for WALTER. This assessment was performed via telephone. Therefore the physical exam has been deferred to the day of surgery team. The patient was provided with preoperative instructions for their medications. The patient was instructed to shower/bathe the night prior and the morning of the planned procedure using an antibacterial soap. Patient instructions were provided electronically sent via [employer]. Patient verbalized understanding of preoperative plan. Blood bank needs for day of procedure: No type and screen needed Pending labs/tests include: POC Hcg Urine Reviewed 09/10/20 CMP and CBC without significant findings Patient's COVID19 status is: Unexposed. The patient currently has no concerning symptoms of COVID19. . Patient's COVID-19 vaccination status is Fully vaccinated. Documentation of vaccination status is available in the Epic Immunization tab. . Plan for pre-procedure COVID19 testing: Telephone assessment performed. Request placed for pre-procedure COVID19 testing to be performed on 10/17/20. [facility] will place the order for testing. Result to be reviewed by surgeon's office. Scopolamine patch prescribed for upcoming procedure per [facility] protocol. Patient denies history of glaucoma or urinary retention. Patient verbalized understanding of instructions. TPAP Complete Preoperative evaluation performed by Andree Acosta NP on 10/09/20 at 12:23 PM . Patient Active Problem List Diagnosis ??? 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 or arthrodesis ??? Painful orthopaedic hardware (CMS/HCC) (HCC) ??? Reactive airway disease ??? Attention deficit disorder (ADD) in adult ??? Rathke's cyst (CMS/HCC) (HCC) ??? Chronic migraine without aura without status migrainosus, not intractable ??? Pseudotumor cerebri ??? Pain and swelling of lower extremity ??? SOB (shortness of breath) ??? Arthralgia ??? Elevated sedimentation rate ??? Allergic rhinitis ??? Candidiasis of vagina ??? Family history of seizure disorder ??? Gastritis ??? History of syncope ??? Hyperthyroidism ??? Increased frequency of urination ??? Migraine headache ??? Oral candidiasis ??? Paronychia ??? Screening for condition ??? Seborrhea ??? Seizure (CMS/HCC) (FORM[facility]) ??? Skin striae ??? Tinea pedis ??? Vitamin D deficiency ??? Morbid obesity with BMI of 40.0-44.9, adult (CMS/HCC) (FORM[facility]) ??? Obesity due to excess calories ??? Simple obesity ??? Benign intracranial hypertension ??? Exposure to COVID-19 virus ??? Cough ??? Nasal congestion ??? Pneumonia due to COVID-19 virus ??? Chronic bilateral low back pain ??? Left hip pain ??? Acute pain of left knee ??? Pustular rash ??? Acute bilateral low back pain without sciatica ??? Chronic pain of both knees ??? Lumbar degenerative disc disease ??? Chronic pain of both hips ??? Anxiety and depression ??? Reactive airway disease that is not asthma ??? Prepatellar bursitis of both knees ??? Lumbar spondylosis ??? Fluid retention ??? Herpes zoster without complication ??? Chronic intractable headache ??? Acute recurrent maxillary sinusitis ??? Hiccups ??? Leg cramping ??? Well adult exam ??? Other chronic pain ??? Bipolar 2 disorder (CMS/HCC) ([facility]) ??? Patellar maltracking, left Past Medical History: Diagnosis Date ??? ADHD (attention deficit hyperactivity disorder) ??? Anxiety ??? Arthritis ??? Brain concussion ??? Chronic bronchitis (CMS/HCC) ([facility]) ??? Depression ??? Gastric reflux ??? GERD (gastroesophageal reflux disease) ??? Irritability ??? Jaundice ??? Kidney stone ??? Low back pain ??? Memory loss ??? Migraines ??? Motion sickness ??? Obesity ??? Peptic ulceration ??? Pneumonia ??? PONV (postoperative nausea and vomiting) premedicated and scopolamine patch ??? Seasonal allergies ??? Seizures (CMS/HCC) ([facility]) ??? SOB (shortness of breath) Past Surgical History: Procedure Laterality Date ??? ABDOMINAL SURGERY Laparoscopic surgery to remove endometriosis ??? FOOT SURGERY 2019 2 left bunion, 1 right bunion ??? FOOT SURGERY 07/16/2019 revision left tarsometatarsal joint arthrodesis iliac crest bone graft - Left ??? LAPAROSCOPIC ENDOMETRIOSIS FULGURATION 2017 ??? TONSILECTOMY, ADENOIDECTOMY, BILATERAL MYRINGOTOMY AND TUBES ??? WISDOM TOOTH EXTRACTION OB History No [...] SEIZURE ACTIVITY ??? Oxycodone-Acetaminophen Nausea And Vomiting Med List Status: Nurse Complete Set By: Tracy Pandya RN at 10/06/2020 5:15 PM Taking? Last Dose Start Date End Date Provider acetaminophen (TYLENOL) 500 mg tablet Past Month -- -- ProviderYessica MD albuterol HFA (Ventolin HFA) 90 mcg/actuation inhaler Past Month -- -- ProviderYessica MD aspirin/acetaminophen/caffeine (EXCEDRIN EXTRA STRENGTH ORAL) 10/06/2020 -- -- Yessica Jordan MD budesonide-formoteroL (Symbicort) 160-4.5 mcg/actuation inhaler More than a month 04/22/20 -- Daily Cruz MD Inhale 2 puffs 2 (two) times a day Rinse mouth with water after use. Do not swallow. Patient taking differently: Inhale 2 puffs as needed Rinse mouth with water after use. Do not swallow. bumetanide (BUMEX) 1 mg tablet 10/06/2020 09/18/20 -- Daily Cruz MD TAKE 1 TABLET BY MOUTH TWICE A DAY Patient taking differently: Take 1 mg by mouth 2 (two) times a day uqavxjfosu-lqmfaqoyjgdlo-cdaswdhv-codeine (FIORICET WITH CODEINE) 86-910-60-30 mg per capsule 09/11/20 -- Daily Cruz MD Take 1 capsule by mouth every 6 (six) hours as needed for headaches or migraine Notes: Not started yet diclofenac DR (VOLTAREN) 75 mg EC tablet 10/06/2020 08/24/20 -- Daily Cruz MD TAKE 1 TABLET BY MOUTH TWICE A DAY NEEDED FOR PAIN Patient taking differently: Take 75 mg by mouth 2 (two) times a day fluticasone propionate (FLONASE) 50 mcg/actuation nasal spray Past Month 12/18/19 -- Daily Cruz MD Administer 2 sprays into each nostril daily Patient taking differently: Administer 2 sprays into each nostril as needed galcanezumab-gnlm (Emgality Pen) 120 mg/mL pen injector Past Month 09/09/20 -- Daily Cruz MD Inject 120 mg under the skin every 30 (thirty) days Patient taking differently: Inject 120 mg under the skin every 30 (thirty) days levocetirizine (XYZAL) 5 mg tablet More than a month 12/18/19 -- Daily Cruz MD Take 1 tablet (5 mg total) by mouth daily levonorgestreL (KYLEENA) IUD 10/06/2020 -- -- Yessica Jordan MD pregabalin (LYRICA) 75 mg capsule 10/06/2020 08/19/20 02/15/21 Daily Cruz MD Take 1 capsule (75 mg total) by mouth 2 (two) times a day Patient taking differently: Take 75 mg by mouth 3 (three) times a day SUMAtriptan (IMITREX) 50 mg tablet Past Month 09/18/20 -- Daily Cruz MD TAKE 1 TABLET BY MOUTH ONCE NEEDED FOR MIGRAINE. MAY REPEAT DOSE AFTER 2 HOURS Patient taking differently: Take 50 mg by mouth once as needed ubrogepant (Ubrelvy) 50 mg tablet Past Month 05/20/20 -- Daily Cruz MD Take 1 tablet (50 mg total) by mouth once as needed for migraine May repeat dose once in 2 hours ifno relief. Do not exceed 2 doses in 24 hours. Patient taking differently: Take 50 mg by mouth once as needed for migraine May repeat dose once in2 hours if no relief. Do not exceed 2 doses in 24 hours. No current facility-administered medications for this encounter. Current Outpatient Medications: ??? acetaminophen (TYLENOL) 500 mg tablet ??? albuterol HFA (Ventolin HFA) 90 mcg/actuation inhaler ??? aspirin/acetaminophen/caffeine (EXCEDRIN EXTRA STRENGTH ORAL) ??? bumetanide (BUMEX) 1 mg tablet ??? diclofenac DR (VOLTAREN) 75 mg EC tablet ??? fluticasone propionate (FLONASE) 50 mcg/actuation nasal spray ??? galcanezumab-gnlm (Emgality Pen) 120 mg/mL pen injector ??? levonorgestreL (KYLEENA) IUD ??? pregabalin (LYRICA) 75 mg capsule ??? SUMAtriptan (IMITREX) 50 mg tablet ??? ubrogepant (Ubrelvy) 50 mg tablet ??? budesonide-formoteroL (Symbicort) 160-4.5 mcg/actuation inhaler ??? ixskmniqlk-pjzfvhnyeqfrn-toulpnxq-codeine (FIORICET WITH CODEINE) 12-127-72-30 mg per capsule ??? levocetirizine (XYZAL) 5 mg tablet Social History Tobacco Use Smoking Status Never Smoker Smokeless Tobacco Never Used Substance and Sexual Activity Alcohol Use Not Currently ??? Alcohol/week: 0.0 standard drinks Comment: Maybe a drink every few months Substance and Sexual Activity Drug Use Never Family History Problem Relation Age of [...] were no vitals filed for this visit. Relevant diagnostics: ECG(s): N/A Echocardiogram(s): 07/16/20 Interpretation Summary Left ventricular systolic function is normal. Ejection Fraction = 55-60%. The right ventricular systolic function is normal. Right ventricular systolic pressure is normal. There is no pericardial effusion. E/E prime ratio is <8 suggesting normal pulmonary wedge pressure and no LV diastolic dysfunction. Stress test(s): N/A Cardiac catheterization(s): N/A PFT(s): N/A Vascular studies: N/A Other: N/A PT: No results found for requested labs within last 720 hours. INR: No results found for requested labs within last 720 hours. APTT: No results found for requested labs within last 720 hours. Hgb A1C: No results found for requested labs within last 720 hours. CBC RBC: 09/10/2020: 4.50 M/cumm RDW: No results found for requested labs within last 720 hours. MCHC: 09/10/2020: 32.7 g/dL MCH: 09/10/2020: 29.1 pg MCV: 09/10/2020: 89.1 fL Hct: 09/10/2020: 40.1 % Hgb: 09/10/2020: 13.1 g/dL WBC: 09/10/2020: 9.5 K/cumm MPV: 09/10/2020: 10.2 fL Platelets: 09/10/2020: 378 K/cumm RDW CV: 09/10/2020: 14.4 % RDW Sd: 09/10/2020: 46.6 fL BMP Glucose: 09/10/2020: 98 mg/dL Calcium: 09/10/2020: 9.2 mg/dL Sodium: 09/10/2020: 140 mmol/L Potassium: 09/10/2020: 4.0 mmol/L CO2: 09/10/2020: 26 mmol/L Chloride: 09/10/2020: 104 mmol/L BUN: 09/10/2020: 14 mg/dL Creatinine: 09/10/2020: 0.70 mg/dL STOP-Bang Total Score: 2 Capo index score: 100 DOS Physical Exam Medical history, medications, and allergies reviewed. Attestation: This PAT evaluation Airway Exam: Mallampati: III Cervical ROM: FROM Cardiovascular Exam: Rate: regular Rhythm: regular Pulmonary Exam: LCTA, bilat Anesthesia Plan ASA 3 My patient is approved for the Anesthesia Controlled Medication protocol when under care of a SPA CONSULTANT Planned anesthesia: General Informed Consent: Anesthesia plan and risks discussed with patient. Plan and Consent Comments: Possible Post-Op Nerve Block explained to patient and/or family. Consent and Attending signature: I and/or my designee have discussed the anesthesia plan, benefits, possible alternatives, parental presence at time of induction (if indicated), and clinically relevant risks that may include dental injury, unintentional awareness, and/or other complications. The patient and/or parent/legal guardian understand, and agree to proceed. All questions answered. documented in this encounter Plan of Treatment [...] Procedure Name Priority Date/Time Associated Diagnosis Comments MT AN PROCEDURE PLACEHOLDER Routine 10/20/2020 12:00 PM CDT MT AN ELECTIVE ENDOTRACHEAL AIRWAY Routine 10/20/2020 12:00 PM CDT documented in this encounter Results * MT AN ELECTIVE ENDOTRACHEAL AIRWAY, MT AN PROCEDURE PLACEHOLDER (10/20/2020 12:00 PM CDT) Narrative Sierra Lerma CRNA - 10/20/2020 12:00 PM CDT Sierra Lerma CRNA ? 10/20/2020 12:02 PM Airway Patient location: OR Urgency: elective Indications for airway management: anesthesia Difficult airway: no Staff: Placed by: SPA CONSULTANT: Sierra Lerma CRNA Airway prep: Preoxygenated: yes Patient position: sniffing Spontaneous ventilation during airway: absent Sedation level during airway: GA Final airway details: Final airway type: endotracheal airway Tube type: ETT ETT size: 6.5 mm Cuffed: yes Technique used for successful ETT placement: direct laryngoscopy Devices/Methods used in placement: intubating stylet Insertion site: oral Blade type: Magaly Blade size: 3 Cormack-Lehane (direct): grade I - full view of glottis Cuff volume: 7 mL Cuff inflated with: air ETT to lips: 22 cm Placement verified by: auscultation and CO2 detection Airway secured with: silk tape Number of attempts: 1 Additional comments: Easy and atraumatic intubation. ??Despite preoxygenation with 100% O2 for at least 5 minutes and HOB raised appx 20-30 degrees, patient desaturated very fast to 85% after quick intnubation. Angy Olmedo MD ANESTHESIA ORDERABLES Fi nal Result documented in this encounter Visit Diagnoses Not on filedocumented in this encounter Administered Medications Inactive Administered Medications - up to 3 most recent administrations Medication Order MAR Action Action Date Dose Rate Site ceFAZolin (ANCEF) 3,000 mg/30 mL in sterile water (premix) 3,000 mg 3,000 mg, intravenous, at 600 mL/hr, Administer over 3 Minutes, Once, On Mon10/20/20 at 1030, For 1 dose, Pre-Op, Administer within 60 minutes of incision., Indications: Prophylaxis, SurgicalIndications:Prophylaxis , Surgical Given 10/20/2020 11:45 AM CDT 3,000 mg dexAMETHasone (DECADRON) 4 mg/mL injection intravenous, Administer over 2 Minutes, As needed, Starting on Mon10/20/20 at 1155, Anesthesia Intra-op Given 10/20/2020 11:55 AM CDT 10 mg diphenhydrAMINE (BENADRYL) injection intravenous, Administer over 2 Minutes, As needed, Starting on Mon10/20/20 at 1233, Anesthesia Intra-op Given 10/20/2020 12:33 PM CDT 12.5 mg fentaNYL (SUBLIMAZE) preservative free injection intravenous, As needed, Starting on Mon10/20/20 at 1136, Anesthesia Intra-op Given 10/20/2020 11:55 AM CDT 50 mcg Given 10/20/2020 11:36 AM CDT 50 mcg glycopyrrolate (ROBINUL) injection intravenous, Administer over 1 Minutes, As needed, Starting on Mon10/20/20 at 1224, Anesthesia Intra-op Given 10/20/2020 12:24 PM CDT 0.4 mg ketorolac (TORADOL) injection intravenous, As needed, Starting on Mon10/20/20 at 1223, Anesthesia Intra-op Given 10/20/2020 12:23 PM CDT 30 mg Lactated Ringer's (LR) infusion 30 mL/hr, intravenous, Continuous, Starting on Mon10/20/20 at 1015, Use a 500 ml bag for End Stage Renal Disease Patients New Bag 10/20/2020 12:05 PM CDT Rate/Dose Verify 10/20/2020 11:25 AM CDT 30 mL/ hr New Bag 10/20/2020 10:12 AM CDT 30 mL/hr 30 mL/hr lidocaine PF (XYLOCAINE) 10 mg/mL (1 %) preservative free injection intravenous, As needed, Starting on Mon10/20/20 at 1137, Anesthesia Intra-op Given 10/20/2020 12:22 PM CDT 50 mg Given 10/20/2020 11:37 AM CDT 50 mg midazolam (VERSED) 1 mg/mL injection intravenous, As needed, Starting on Mon10/20/20 at 1125, Anesthesia Intra-op Given 10/20/2020 11:25 AM CDT 2 mg neostigmine injection intravenous, Administer over 3 Minutes, As needed, Starting on Mon10/20/20 at 1224, Anesthesia Intra-op Given 10/20/2020 12:24 PM CDT 3 mg ondansetron (ZOFRAN) injection intravenous, Administer over 2 Minutes, As needed, Starting on Mon10/20/20 at 1135, Anesthesia Intra-op Given 10/20/2020 12:23 PM CDT 4 mg Given 10/20/2020 11:35 AM CDT 4 mg propofoL (DIPRIVAN) 10 mg/mL IV intravenous, As needed, Starting on Mon10/20/20 at 1137, Anesthesia Intra-op Given 10/20/2020 11:40 AM CDT 50 mg Given 10/20/2020 11:37 AM CDT 150 mg rocuronium (ZEMURON) injection intravenous, As needed, Starting on Mon10/20/20 at 1137, Anesthesia Intra-op Given 10/20/2020 11:37 AM CDT 20 mg documented in this encounter Care Teams Cheese Grader Relationship Specialty Start Date End Date Daily Cruz MD PCP - General Family Medicine 08/01/19 03/03/21 documented as of this encounter
--- OUTSIDE RECORDS SUMMARY | 2024-02-21 19:38 | XMS_ITS | Encounter Summary ---
Author Organization [facility] Address [address] [place] [address] Phone Care Team Providers Care Tax Associate Attorney Name Role Phone Daily Cruz MD Primary Care Provider [phone] [phone] Reason for Visit * Reason Comments Post-op Encounter Details Date Type Department Care Team (Late st Contact Info) Description 12/11/2020 9:10 AM CDT Office Visit [facility] Orthopaedic Surgery [address] [place] [address] [place] [address] [place], [place] [id number] Left knee pain, unspecified chronicity (Primary Dx); Chronic pain of right knee Social History Tobacco Use Types Packs/Day Years [...] file Legal Sex Female 3:37 PM DIRECTOR PHYSICAL THERAPY Gender Identity Female 03/02/2020 4:27 PM DIRECTOR PHYSICAL THERAPY Sexual Orientation Straight 07/10/2019 11 :13 PM CDT documented as of this encounter Last Filed Vital Signs Vital Sign Reading Time Taken Comments Blood Pressure - - Pulse - - Temperature - - Respiratory Rate - - Oxygen Saturation - - Inhaled Oxygen Concentration - - Weight 127.7 kg (281 lb 8.4 oz) 12/11/2020 9:10 AM CDT Height 170.2 cm (5' 7.01 ) 12/11/2020 9:10 AM CD T Body Mass Index 44.08 12/11/2020 9:10 AM CDT documented in this encounter Progress Notes * Logan Morel MD - 12/11/2020 9:10 AM CDT RETURN PATIENT VISIT HISTORY OF PRESENT ILLNESS Jud Leung returns today now 7 weeks status post left knee arthroscopic fat pad debridement patellar chondroplasty with lateral retinacular release. She states that she was unable to attend physical therapy due to limitations from her insurance company. However she has no complaints and states that she has been performing a home exercise program. She states that she has minimal to no pain in her left knee. She does not report any weakness. She has no mechanical symptoms. PHYSICAL EXAMINATION Well-appearing female in NAD. Hearing [...] with a palpable posterior tibial pulse. IMPRESSION/DIAGNOSIS Doing well 7 weeks status post left knee arthroscopic fat pad debridement patellar chondroplasty with lateral retinacular release TREATMENT PLAN Jud is doing well after surgery. We discussed that we will give her another physical therapy script to at least get some of the home exercises. At this point she can resume activities as tolerated as dictated by her symptoms. She is complaining of some right knee discomfort we discussed that it may be too soon to perform any interventions on the right knee and she will return after she has fully recovered from her left knee to evaluated. She may continue to take ice as well as oral anti-inflammatory medication for her pain and symptoms. She was in agreement with this plan all of her questions were answered. Kevin Kapoor DO Clinical Fellow of Sports Medicine [facility] Dictated using [email or web address] Direct. Slabber Light variations may occur. ATTENDING ATTESTATION: Please see resident/fellow's note. I discussed the case with the resident/fellow, performed the physical examination, reviewed all tests and imaging studies, and agree with the findings and treatmentplan as documented in resident/fellow's note. 30-year-old here for follow-up for her left knee. Over all she is doing very well. She has not been in physical therapy because she ran out of therapy visits. She feels like she is able to do her home exercises. She is going to continue working on strengthening exercises for her knee. We will see her back on an as-needed basis if her symptoms worsen. She is still having some discomfort in her right knee. She wants to recover more for her left knee before considering intervention for her right knee. Logan Morel M.D. Char Filter Operator of Orthopaedic Surgery Sports Medicine and Shoulder [...] as of this encounter Visit Diagnoses Diagnosis Left knee pain, unspecified chronicity- Primary Chronic pain of right knee documented in this encounter Care Teams Tax Associate Attorney Relationship Specialty Start Date End Date Daily Cruz MD PCP - General Family Medicine 08/01/19 03/03/21 documented as of this encounter
--- OUTSIDE RECORDS SUMMARY | 2024-02-21 19:38 | XMS_ITS | Encounter Summary ---
Author Organization [facility] Address [address] [place] [address] Care Team Providers Care Hollow Ware Maker Name Role Phone Daily Cruz MD Primary Care Provider [phone] [phone] Reason for Visit * Reason Comments Follow-up Mem/migraine Encounter Details Date Type Department Care Team (Late st Contact Info) Description 09/11/2020 9:30 AM CDT Telemedicine [facility] Family Medicine [address] [place] [address] [address] [place] [phone] Daily Cruz MD [address] [place] [address] Intractable chronic migraine without aura and [...] Sex 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 Gender Identity Female 03/02/2020 4:27 PM BATTING MACHINE OPERATOR Sexual Orientation Straight 07/10/2019 11 :13 PM CDT documented as of this encounter Last Filed Vital Signs Vital Sign Reading Time Taken Comments Blood Pressure - - Pulse - - Temperature - - Respiratory Rate - - Oxygen Saturation - - Inhaled Oxygen Concentration - - Weight 124.7 kg (275 lb) 09/11/2020 9:19 AM CDT Height 170.2 cm (5' 7 ) 09/11/2020 9:19 AM CDT Body Mass Index 43.07 09/11/2020 9:19 AM CDT documented in this encounter Patient Instructions * Patient Instructions* Daily Cruz MD - 09/11/2020 9:30 AM CDT Patient Education Butalbital/Acetaminophen/Caffeine (By mouth) Acetaminophen (o-zjqt-x-MIN-oh-fen), Butalbital (fvf-OHT-aw-ricardo), Caffeine (KAF-een) Treats headaches. Brand Name(s): Capacet, Esgic, Fioricet, Vanatol LQ, Vanatol S, Zebutal There may be other brand names for this medicine. When This Medicine Should Not Be Used: This medicine is not right for everyone. Do not use it if you had an allergic reaction to acetaminophen, butalbital, or caffeine, or if you have porphyria. How to Use This Medicine: Capsule, Liquid, Tablet ?? Take your medicine as directed. Do not use more medicine or take it more often than your doctor tells you to. ?? Measure the oral liquid medicine with a marked measuring spoon, oral syringe, or medicine cup. ?? This medicine is not for long-term use. ?? Store the medicine in a closed container at room temperature, away from heat, moisture, and direct light. Drugs and Foods to Avoid: Ask your doctor or pharmacist before using any other medicine, including poaz-ysf-gqjegee medicines, vitamins, and herbal products. ?? Some medicines can affect how this medicine works. Tell your doctor if you are also using an MAOinhibitor (MAOI). ?? Tell your doctor if you use anything else that makes you sleepy. Some examples are allergy medicine, narcotic pain medicine, and alcohol. ?? Do not drink alcohol while you are using this medicine. Acetaminophen can damage your liver, andalcohol can increase this risk. Warnings While Using This Medicine: ?? Tell your doctor if you are or , or if you have kidney disease, liver disease, or stomach problems. Tell your doctor if you have a history of alcohol or drug addiction. ?? This medicine may cause the following problems: ?? Liver damage ?? Serious skin reactions ?? This medicine contains acetaminophen. Read the labels of all other medicines you are using to see if they also contain acetaminophen, or ask your doctor or pharmacist. Do not use more than 4 grams(4,000 milligrams) total of acetaminophen in one day. ?? This medicine may make you dizzy or drowsy. Do not drive or do anything that could be dangerous until you know how this medicine affects you. ?? This medicine can be habit-forming. Do not use more than your prescribed dose. Call your doctor if you think your medicine is not working. ?? Tell any doctor or dentist who treats you that you are using this medicine. This medicine may affect certain medical test results. ?? Keep all medicine out of the reach of children. Never share your medicine with anyone. Possible Side Effects While Using This Medicine: Call your doctor right away if you notice any of these side effects: ?? Allergic reaction: Itching or hives, swelling in your face or hands, swelling or tingling in your mouth or throat, chest tightness, trouble breathing ?? Blistering, peeling, red skin rash ?? Dark urine or pale stools, nausea, vomiting, loss of appetite, stomach pain, yellow skin or eyes ?? Extreme dizziness or weakness, trouble breathing, slow heartbeat, seizures, and cold, clammy skin ?? Lightheadedness, dizziness, fainting If you notice these less serious side effects, talk with your doctor: ?? Mild nausea or vomiting ?? Sleepiness, tiredness If you notice other side effects that you think are caused by this medicine, tell your doctor. Call your doctor for medical advice about side effects. You may report side effects to FDA at 7-421-FLJ-5150 ?? 2017 [employer] Information is for End User's use only and may not be sold, redistributed or otherwise used for commercial purposes. The above information is an dietary aide cook only. It is not intended as medical advice for individual conditions or treatments. Talk to your doctor, nurse or pharmacist before following any medical regimen to see if it is safe and effective for you. documented in this encounter Ordered Prescriptions Prescription Sig Dispense Quantity Refills Last Filled Start Date End Date butalbital-acetami exkmri-gyylfhng-en deine (FIORICET WITH CODEINE) 44-228-97-30 mg per capsuleIndications :Intractable chronic migraine without aura and with status migrainosus Take 1 capsule by mouth every 6 (six) hours as needed for headaches or migraine 30 capsule 09/11/2020 documented in this encounter Progress Notes * Daily Cruz MD - 09/11/2020 9:30 AM CDT Images from the original note were not included. Patient ID: Jud Leung is a 30 y.o. female. Visit Date: 09/11/2020 This was a telemedicine visit with Jud Leung alone which took place via real-time video connection with Zoom. During the visit, I was located at home and the patient was located [place] [facility] [facility]. The patient visit started at 9:25 and ended at 9:36. . The patient has been informed that the [...] responsible for any applicable copayments. Chief Complaint migraines HPI H/o migraines - still having recurrent headaches Current Outpatient Medications: ??? albuterol HFA (Ventolin HFA) 90 mcg/actuation inhaler, Inhale 2 puffs every 6 (six) hours as needed, Disp: , Rfl: ??? budesonide-formoteroL (Symbicort) 160-4.5 mcg/actuation inhaler, Inhale 2 puffs 2 (two) times aday Rinse mouth with water after use. Do not swallow., Disp: 1 Inhaler, Rfl: 2 ??? diclofenac DR (VOLTAREN) 75 mg EC tablet, TAKE 1 TABLET BY MOUTH TWICE A DAY NEEDED FOR PAIN, Disp: 60 tablet, Rfl: 1 ??? fluticasone propionate (FLONASE) 50 mcg/actuation nasal spray, Administer 2 sprays into each nostril daily, Disp: 16 g, Rfl: 0 ??? galcanezumab-gnlm (Emgality Pen) 120 mg/mL pen injector, Inject 120 mg under the skin every 30 (thirty) days, Disp: 1 mL, Rfl: 0 ??? levocetirizine (XYZAL) 5 mg tablet, Take 1 tablet (5 mg total) by mouth daily, Disp: 30 tablet,Rfl: 0 ??? levonorgestreL (KYLEENA) IUD, 1 each by intrauterine route once , Disp: , Rfl: ??? pregabalin (LYRICA) 75 mg capsule, Take 1 capsule (75 mg total) by mouth 2 (two) times a day, Disp: 60 capsule, Rfl: 5 ??? ubrogepant (Ubrelvy) 50 mg tablet, Take 1 tablet (50 mg total) by mouth once as needed for migraine May repeat dose once in 2 hours if no relief. Do not exceed 2 doses in 24 hours., Disp: 10 tablet, Rfl: 0 ??? bumetanide (BUMEX) 1 mg tablet, TAKE 1 TABLET BY MOUTH TWICE A DAY, Disp: 60 tablet, Rfl: 11 ??? mxbrsihkuu-bixdweuqhypav-mpopjfrs-codeine (FIORICET WITH CODEINE) 12-355-20-30 mg per capsule, Take 1 capsule by mouth every 6 (six) hours as needed for headaches or migraine, Disp: 30 capsule, Rfl: 0 ??? SUMAtriptan (IMITREX) 50 mg tablet, TAKE 1 TABLET BY MOUTH ONCE NEEDED FOR MIGRAINE. MAY REPEAT DOSE AFTER 2 HOURS, Disp: 9 tablet, Rfl: 0 Review of Systems Constitutional: [...] Ht 170.2 cm (5' 7 ) Wt 124.7 kg (275 lb) BMI 43.07 kg/m?? Body mass index is 43.07 kg/m??. Physical Exam Constitutional: Appearance: Normal appearance. [...] with status migrainosus (Primary) Assessment & Plan: New Order fioiricet with codeine prn Orders: - iqjnkyyhbz-xflzwvjgecfce-uuucbptd-codeine (FIORICET WITH CODEINE) 02-275-45-30 mg per capsule; Take 1 capsule by mouth every 6 (six) hours as needed for headaches or migraine Daily Cruz MD documented in this encounter Miscellaneous Notes * Assessment & Plan Note - Daily Cruz MD - 09/21/2020 6:23 AM CDT Associated Problem(s): Chronic migraine without aura without status migrainosus, not intractable New Order fioiricet with codeine prn documented in this encounter Plan of Treatment Not on file documented as of this encounter Visit Diagnoses Diagnosis Intractable chronic migraine without aura and with status migrainosus- Primary documented in this encounter Care Teams Hollow Ware Maker Relationship Specialty Start Date End Date Daily Cruz MD PCP - General Family Medicine 08/01/19 03/03/21 documented as of this encounter
--- OUTSIDE RECORDS SUMMARY | 2024-02-21 19:38 | XMS_ITS | Encounter Summary ---
Author Organization [facility] Address [address] [place] [address] Care Team Providers Care Wire Twister Name Role Phone Daily Cruz MD Primary Care Provider [phone] [phone] Reason for Referral * Consultation (Urgent) - Closed Specialty Diagnoses / Procedures Referred By Contfabian t Referred To Contact Dermatology Diagnoses Herpes zoster with complication Daily Cruz MD Phone: tel: fax: Natasha Sandoval MD Phone: tel: fax: Referral ID Status Reason Start Date Expiration Date V isits Requested Visits Authorized [id number] Closed Specialty Services Required 06/24/2021 07/24/2022 1 1 Question Answer Please select the performing region: External Order [171] To provider: ROJAS CARDOSO [[id number]] # of visits: 1 Comments GUILLERMINA next two days Encounter Details Date Type Department Care Team (Late st Contact Info) Description 06/16/2021 Patient Message [facility] Family Medicine [address] [place] [address] Daily Cruz MD [address] [place] [address] Possible shingles again Social History Tobacco Use Types Packs/Day Years [...] on file 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 5 g 06/17/2021 2 documented in this encounter Miscellaneous Notes * Addendum Note - Kylah Perez - 07/01/2021 2:19 PM CDTAddended by: KYLAH PEREZ on: 07/01/2021 02:19 PM Modules accepted: Orders * Telephone Encounter - Daily Cruz MD - 07/01/2021 1:45 PM CDT The lasix I recommended to send in is the diuretics * Telephone Encounter - Daily Cruz MD - 06/30/2021 2:39 PM CDT Start lasix 20mg daily and she needs to get the labs done I recommended on last response and scheudle follow up * Telephone Encounter - Daily Cruz MD - 06/29/2021 11:34 AM CDT Likely the elevated glucose is a result of the multiple steroids recently. Would recommend to orderCMP, hga1c for hyperglycemia. Would recommend some low dose insulin for a week of any samples we have such as tresiba or toujeo at only 10 units daily until glucose comes under 170 * Addendum Note - Alexander Solis MA - 06/24/2021 11:04 AM CDTAddended by: ALEXANDER SOLIS on: 06/24/2021 11:04 AM Modules accepted: Orders * Telephone Encounter - Daily Cruz MD - 06/23/2021 5:01 PM CDT Refer to dermatology GUILLERMINA. See if can be seen by dr. Cardoso in next 2 days * Telephone Encounter - Nadia Myles MA - 06/22/2021 4:59 PM CDT This stuff was just sent in by gaurav on 06/16 and 06/17. Do you want us to send this in again? * Addendum Note - Nadia Myles MA - 06/22/2021 4:59 PM CDTAddended by: NADIA MYLES on: 06/22/2021 04:59 PM Modules accepted: Orders * Telephone Encounter - Daily Cruz MD - 06/22/2021 1:17 PM CDT Treat for shingles: send in valtrex 1 gm 1 po tid for 7 days, medrol dose pack and send in elocon 0.1% cream apply bid #30 gm * Telephone Encounter - Colleen Sykes MA - 06/17/2021 10:46 AM CDT . * Telephone Encounter - Colleen Sykes MA - 06/17/2021 8:24 AM CDT Please help schedule * Telephone Encounter - Daily Cruz MD - 06/16/2021 6:11 PM CDT Schedule virtual visit as was just treated with valtrex documented in this encounter Plan of Treatment Scheduled Referrals Name Type Priority Associated Diagnoses Orde r Schedule Ambulatory referral to Dermatology Outpatient Referral Routine Herpes zoster with complication Expected: 07/08/2021 (Approximate), Expires: 06/24/2022 documented as of this encounter Goals Goal [...] as of this encounter Visit Diagnoses Diagnosis Herpes zoster with complication- Primary documented in this encounter Care Teams Wire Twister Relationship Specialty Start Date End Date Daily Cruz MD PCP - General Family Medicine 03/04/21 documented as of this encounter
--- OUTSIDE RECORDS SUMMARY | 2024-02-21 19:39 | XMS_ITS | Encounter Summary ---
Author Organization [facility] Address [address] [place] [address] Care Team Providers Care Mixer Pigment Name Role Phone Daily Cruz MD Primary Care Provider [phone] [phone] Reason for Visit * Reason Onset Date Comments Prior Auth 04/23/2020 PA on Vraylar an d Symbicort Encounter Details Date Type Department Care Team (Late st Contact Info) Description 04/23/2020 Telephone [facility] Family Medicine [address] [place] [address] [address] [place] [address] Daily Cruz MD [address] [place] [address] Prior Auth (PA on Taraaylar and Symbicort) Social History Tobacco Use Types Packs/Day Years Used Date Smoking Tobacco: Never Smokeless Tobacco: Never Alcohol Use Standard Drinks/Week Comments Yes 0 (1 standard drink = 0.6 oz pur e alcohol) RARE PHQ-2 Answer Date Recorded PHQ-2 Total Score (If total score is 3 or more points, staff should administer the PHQ-9) 0 07/11/2019 Comments No Sex and Gender Information Value Date Recorded Sex Assigned at Not on file Legal Sex Female 3:37 PM LANDSCAPE ARCHITECT Gender Identity Female 03/02/2020 4:27 PM LANDSCAPE ARCHITECT Sexual Orientation Straight 07/10/2019 11 :13 PM CDT documented as of this encounter Miscellaneous Notes * Telephone Encounter - Armida Devine PA - 05/01/2020 12:42 PM CDT Appt 05/20 * Telephone Encounter - Dia Huffman MA - 04/24/2020 10:00 AM LANDSCAPE ARCHITECT Denial for Symbicort in your tray. SCAPE ARCHITECT * Telephone Encounter - Dia Huffman MA - 04/23/2020 10:53 AM LANDSCAPE ARCHITECT Both done on covermymeds and waiting on reply. SCAPE ARCHITECT * Telephone Encounter - Dia Huffman MA - 04/23/2020 10:18 AM LANDSCAPE ARCHITECT PA on Vraylar 3mg for covermymeds [id number] PA on Symbicort 160-4.5mcg for covermymeds [id number] SCAPE ARCHITECT SCAPE ARCHITECT documented in this encounter Plan of Treatment Not on file documented as of this encounter Visit Diagnoses Not on filedocumented in this encounter Additional Health Concerns Infection Onset Date Last Indicated Resolved Time COVID: Recovered Comment:Added based on recent COVID infection. 01/02/2020 01/22/2020 05/01/2020 3:05 AM C DT documented as of this encounter Care Teams Mixer Pigment Relationship Specialty Start Date End Date Daily Cruz MD PCP - General Family Medicine 08/01/19 03/03/21 documented as of this encounter
--- OUTSIDE RECORDS SUMMARY | 2024-02-21 19:39 | XMS_ITS | Encounter Summary ---
Author Organization [facility] Address [address] [place] [address] Care Team Providers Care Barrelhead Inspector Name Role Phone Daily Cruz MD Primary Care Provider [phone] [phone] Reason for Visit * Reason Onset Date Comments peer to peer 04/22/2020 Encounter Details Date Type Department Care Team (Late st Contact Info) Description 04/22/2020 Telephone [facility] Family Medicine 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 SPECIALIST * Telephone Encounter - Daily Cruz MD - 04/22/2020 7:09 PM CASH SPECIALIST Will do peer to peer tomorrow SPECIALIST * Telephone Encounter - Jodi Eli - 04/22/2020 8:24 AM CST Ordered MRI lumbar and MRI bilateral knees. Per patient insurance denied. Peer to peer conference call is an option and has been scheduled for 04/22/20 @4pm. Patient has been informed that insurance decision has gone to a next level for possible approval. SPECIALIST documented in this encounter Plan of Treatment Not on file documented as of this encounter Visit Diagnoses Not on filedocumented in this encounter Additional Health Concerns Infection Onset Date Last Indicated Resolved Time COVID: Recovered Comment:Added based on recent COVID infection. 01/02/2020 01/22/2020 05/01/2020 3:05 AM C DT documented as of this encounter Care Teams Barrelhead Inspector Relationship Specialty Start Date End Date Daily Cruz MD PCP - General Family Medicine 08/01/19 03/03/21 documented as of this encounter
--- OUTSIDE RECORDS SUMMARY | 2024-02-21 19:39 | XMS_ITS | Encounter Summary ---
Author Organization [facility] Address [address] [place] [address] Care Team Providers Care Nuclear Medicine Supervisor Name Role Phone Daily Cruz MD Primary Care Provider [phone] Reason for Visit * Reason Comments Follow-up 4wk Encounter Details Date Type Department Care Team (Late st Contact Info) Description 05/20/2020 11:15 AM CDT Telemedicine [facility] Family Medicine [address] [place] [address] [address] [place] [id number] Daily Cruz MD [address] [place] [id number] Lumbar spondylosis (Primary Dx); Prepatellar bursitis of both knees; Fluid retention; Chronic migraine without aura without status migrainosus, not intractable; Anxiety and depression; SOB (shortness of breath) Social History Tobacco Use Types Packs/Day Years Used Date Smoking Tobacco: Never Smokeless Tobacco: Never Alcohol Use Standard Drinks/Week Comments Yes 0 (1 standard drink = 0.6 oz pur e alcohol) RARE AUDIT-C Answer Date Recorded Q1: How often do you have a drink containing alc ohol? Never 06/09/2020 Average Number of Drinks Not on file 021 Q3: How often do you have si x or more drinks on one occasion? Never 06/09/2020 PHQ-2 Answer Date Recorded PHQ-2 Total Score (If total score is 3 or more points, staff should administer the PHQ-9) 0 07/11/2019 Comments No Sex and Gender Information Value Date Recorded Sex Assigned at Not on file Legal Sex Female 3:37 PM APPAREL PATTERNMAKER Gender Identity Female 03/02/2020 4:27 PM APPAREL PATTERNMAKER Sexual Orientation Straight 07/10/2019 11 :13 PM CDT documented as of this encounter Last Filed Vital Signs Vital Sign Reading Time Taken Comments Blood Pressure 108/68 05/20/2020 10:46 AM CDT pt taken Pulse 80 05/20/2020 10:46 AM CDT pt t aken Temperature - - Respiratory Rate - - Oxygen Saturation 98% 05/20/2020 10:46 AM CDT pt taken Inhaled Oxygen Concentration - - Weight 121.6 kg (268 lb) 05/20/2020 10:46 AM CDT pt taken Height - - Body Mass Index 41.96 04/22/2020 1:10 PM APPAREL PATTERNMAKER documented in this encounter Patient Instructions * Patient Instructions* Daily Cruz MD - 05/20/2020 11:15 AM CDT Images from the original note were not included. Patient Education Knee Bursitis INTERPERSONAL COMMUNICATIONS PROFESSOR: Knee bursitis is inflammation of the bursa in your knee. The bursa is a fluid- filled sac that acts as a cushion between a bone and a tendon. A tendon is a cord of strong tissue that connects muscles to bones. Common signs and symptoms of knee bursitis: ?? Pain, swelling, or tenderness in your knee ?? Decreased movement or stiffness of your knee ?? Red, warm, skin over your knee Treatment may include any of the following: ?? NSAIDs , such as ibuprofen, help decrease swelling, pain, and fever. This medicine is available with or without a doctor's order. NSAIDs can cause stomach bleeding or kidney problems in certain people. If you take blood thinner medicine, always ask if NSAIDs are safe for you. Always read the medicine label and follow directions. Do not give these medicines to children under 6 months of age without direction from your child's healthcare provider. ?? Antibiotics help fight an infection caused by bacteria. ?? A steroid injection may help decrease pain and swelling. ?? Surgery may be used to remove your bursa. Surgery is only done when other treatments do not work. Manage your symptoms: ?? Rest your knee as much as possible to decrease pain and swelling. Slowly start to do more each day. Return to your daily activities as directed. ?? Apply ice to help decrease swelling and pain. Ice may also help prevent tissue damage. Use an ice pack, or put crushed ice in a plastic bag. Cover it with a towel and place it on your knee for 15 to 20 minutes, 3 to 4 times each day, as directed. ?? Apply heat to help decrease pain and stiffness. Apply heat on the area for 15 to 20 minutes, 3 to 4 times each day, as directed. ?? Apply compression to decrease swelling. Healthcare providers may wrap your knee with tape or an elastic bandage to decrease swelling. Loosen the elastic bandage if you start to lose feeling in your toes. ?? Elevate your knee above the level of your heart as often as you can. This will help decrease swelling and pain. Prop your knee on pillows or blankets to keep it elevated comfortably. ?? Go to physical therapy if directed. A physical therapist can teach you exercises to improve yourrange of motion and increase knee strength. Prevent knee bursitis: ?? Stretch, warm up, and cool down when you exercise. This will help loosen your muscles and decrease stress on your knees. Rest between workouts. ?? Protect your knees. Use kneepads when you kneel on a hard surface and when you play sports. Stand and walk around every 20 minutes if you have to kneel for a long period of time. Follow up with your healthcare provider as directed: Write down your questions so you remember to ask them during your visits. ?? 2017 [employer] Information is for End User's use only and may not be sold, redistributed or otherwise used for commercial purposes. All illustrations and images included in CareNotes?? are the copyrighted property of [employer] or [employer]. The above information is an psychiatric nursing aide only. It is not intended as medical advice for individual conditions or treatments. Talk to your doctor, nurse or pharmacist before following any medical regimen to see if it is safe and effective for you. documented in this encounter Ordered Prescriptions Prescription Sig Dispense Quantity Refills Last Filled Start Date End Date ubrogepant (Ubrelvy) 50 mg tabletIndications: Chronic migraine without aura without status migrainosus, not intractable Take 1 tablet (50 mg total) by mouth once as needed for migraine May repeat dose once in 2 hours if no relief. Do not exceed 2 doses in 24 hours. 10 tablet 05/20/2020 2 vilazodone (Viibryd) 10 mg tabletIndications: major depressive disorder Take 1 tablet (10 mg total) by mouth daily 30 tablet 05/20/2020 1 bumetanide (BUMEX) 1 mg tabletIndications: Fluid retention Take 1 tablet (1 mg total) by mouth 2 (two) times a day 60 tablet 05/20/2020 1 documented in this encounter Progress Notes * Daily Cruz MD - 05/20/2020 11:15 AM CDT Images from the original note were not included. Patient ID: Jud Thomas is a 29 y.o. female. Visit Date: 05/20/2020 This was a telemedicine visit with Jud Thomas alone which took place via real-time video connection with [employer]. During the visit, I was located at home and the patient was located at home in the [facility]. The patient visit started at 10:50 and ended at 11:10. The patient has been informed that the visit may not be secure and acknowledged the information. I have explained the option of participating in a telephone or video visit during the [facility] public health emergency to the patient. After being given an opportunity to ask questions about and discuss this type of visit, the patient verbally consented to proceeding with the telephone/video visit.The patient understands that this service replaces an office visit and they may be billed and/or responsible for any applicable copayments. Clhief complaint: Knee pain Low back pain GAGNON HPI For the low back pain , the MRI lumbar shows multilevel disc problems: spondylosis, foraminal narrowing. For the bilateral knee pain, MRI's show multiple problems:pretibial bursitis, compartment chondrosis, fat pad impingement. Patient would still be unable to return to work. She cannot bear weight for any prolonged time. D/w patient that will need to see orthopedist and neurosurgery C/o still gets recurrent leg swelling, and, often , also, feels in hands and face. Sometimes feet get so swollen, difficult to put shoes on Patient , also, continues to get SOB with exertion since her COVID infection Depression Visit Type: follow-up (not any better. Vraylar caused her to feel like in a fog) Patient is not experiencing: confusion, palpitations and shortness of breath. Treatment side effects: Treatments tried: has failed: zoloft, celexa, wellbutrin, effexor., cymbalta, vraylar. H/o Migraines - Tolerating Emgality. Still having breakthrough migraines around menses. Has tried imitrex and treximet years ago and didn't work Current Outpatient Medications: ??? albuterol HFA (Ventolin HFA) 90 mcg/actuation inhaler, Inhale 2 puffs every 6 (six) hours as needed, Disp: , Rfl: ??? budesonide-formoteroL (Symbicort) 160-4.5 mcg/actuation inhaler, Inhale 2 puffs 2 (two) times aday Rinse mouth with water after use. Do not swallow., Disp: 1 Inhaler, Rfl: 2 ??? cariprazine (Vraylar) 3 mg capsule capsule, Take 1 capsule (3 mg total) by mouth daily, Disp: 30 capsule, Rfl: 5 ??? diclofenac DR (VOLTAREN) 75 mg EC tablet, Take 1 tablet (75 mg total) by mouth 2 (two) times a day as needed (pain), Disp: 60 tablet, Rfl: 0 ??? fluticasone propionate (FLONASE) 50 mcg/actuation nasal spray, Administer 2 sprays into each nostril daily, Disp: 16 g, Rfl: 0 ??? galcanezumab-gnlm (Emgality Pen) 120 mg/mL pen injector, Inject 120 mg under the skin every 30 (thirty) days, Disp: 1 Syringe, Rfl: 5 ??? levocetirizine (XYZAL) 5 mg tablet, Take 1 tablet (5 mg total) by mouth daily, Disp: 30 tablet,Rfl: 0 ??? levonorgestreL (KYLEENA) IUD, 1 each by intrauterine route once , Disp: , Rfl: ??? SUMAtriptan (IMITREX) 50 mg tablet, Take 1 tablet (50 mg total) by mouth once as needed for migraine May repeat after 2 hours., Disp: 9 tablet, Rfl: 0 ??? bumetanide (BUMEX) 1 mg tablet, Take 1 tablet (1 mg total) by mouth 2 (two) times a day, Disp: 60 tablet, Rfl: 0 ??? ubrogepant (Ubrelvy) 50 mg tablet, Take 1 tablet (50 mg total) by mouth once as needed for migraine May repeat dose once in 2 hours if no relief. Do not exceed 2 doses in 24 hours., Disp: 10 tablet, Rfl: 0 ??? vilazodone (Viibryd) 10 mg tablet, Take 1 tablet (10 mg total) by mouth daily, Disp: 30 tablet,Rfl: 0 Review of Systems Constitutional: Negative for [...] Positive for back pain. Negative for arthralgias. Knee pain Neurological: Positive for headaches. Negative for dizziness. Hematological: Does not bruise/bleed easily. Psychiatric/Behavioral: Negative for behavioral problems and confusion. Depression BP 108/68 Comment: pt taken Pulse 80 Comment: pt taken Wt 121.6 kg (268 lb) Comment: pt taken SpO2 98% Comment: pt taken BMI 41.96 kg/m?? Body mass index is 41.96 kg/m??. Physical Exam Constitutional: Appearance: Normal appearance. HENT: Head: Normocephalic and atraumatic. Nose: Nose normal. Eyes: Extraocular Movements: Extraocular movements intact. Conjunctiva/sclera: Conjunctivae normal. Pulmonary: Effort: Pulmonary effort is normal. Musculoskeletal: Cervical back: Normal range of motion. Neurological: Mental Status: She is alert and oriented to person, place, and time. Psychiatric: Mood and Affect: Mood normal. Behavior: Behavior normal. Patient Name: JUD THOMAS Ordering Dr: Daily Cruz MD D.O.B: 1990 Exam Date: 05/12/20 0000 Age: 29 Sex: Female MR#: [id number] Loc: [facility]#: [id number] ?? RADIOLOGY REPORT Order #[id number] Magnetic Resonance Imaging MRI Lumbar Signed EXAM [...] narrowing and additional findings as discussed above. Patient Name: JUD THOMAS Dr: Daily Cruz MD D.O.B: 1990 Exam Date: 04/29/20 1731 Age: 29 Sex: Female MR#: [id number] Loc: ?? RADIOLOGY REPORT Order #[id number] Magnetic Resonance Imaging MRI Knee Left WO Contrast Signed EXAM DESCRIPTION: MRI Knee Left WO Contrast REASON FOR STUDY: Left knee pain TECHNIQUE: Multiplanar, multisequence MRI of the left knee was performed. COMPARISON: Radiographs 02/28/2020 FINDINGS: In the medial compartment, the meniscus is intact. There is no focal chondrosis or subchondral edema. In the lateral compartment, the meniscus is intact. There is no focal chondrosis or subchondral edema. In the patellofemoral compartment, there is full-thickness fissuring of the medial facet. There is matching chondrosis of the medial trochlea. There is no subchondral edema. The cruciate and collateral ligaments are intact. The popliteus tendon is normal. The extensor mechanism is normal. A physiologic amount of fluid is present within the knee joint. No loose bodies are identified. There is mild edema involving the pericruciate fat pad. Tiny Emerson cyst is present. There is mild pretibial bursitis. IMPRESSION: 1. Mild left patellofemoral compartment chondrosis. 2. Intact left knee menisci, cruciate and collateral ligaments. 3. Mild edema involving the pericruciate fat pad, which can be associated with pericruciate fat pad impingement. 4. Mild left pretibial bursitis. Patient Name: JUD THOMAS Dr: Daily Cruz MD D.O.B: 1990 Exam Date: 04/29/20 1731 Age: 29 Sex: Female MR#: [id number] Loc: ?? RADIOLOGY REPORT Order #[id number] Magnetic Resonance Imaging MRI Knee Right WO Contrast Signed EXAM DESCRIPTION: MRI Knee Right WO Contrast REASON FOR STUDY: Right knee pain TECHNIQUE: Multiplanar, multisequence MRI of the right knee was performed. COMPARISON: 02/28/2020 FINDINGS: Medially, the meniscus is intact. There is no focal chondrosis or subchondral edema. Laterally, the meniscus is intact. There is no focal chondrosis or subchondral edema. In the patellofemoral compartment, there is deep partial thickness chondrosis of the central patellar median ridge extending into the medial facet with superimposed fissuring and chondral flap formation. There is no subchondral edema. The cruciate and collateral ligaments are intact. The popliteus tendon is normal. The extensor mechanism is normal. A physiologic amount of fluid is present within the knee. No loose bodies are identified. There is mild edema involving the superolateral aspect of Hoffa's fat pad. There is mild superficial medial collateral ligament bursitis. IMPRESSION: 1. Mild right patellofemoral compartment chondrosis. 2. Intact right knee menisci, cruciate and collateral ligaments. 3. Mild edema involving the superolateral aspect of the right knee Hoffa's fat pad, which can be associated with lateral femoral condyle patellar tendon friction syndrome. 4. Mild right superficial medial collateral ligament bursitis. Diagnoses and all orders for this visit: Lumbar spondylosis (Primary) Assessment & Plan: Worsening pain Refer to neurosurgery Prepatellar bursitis of both knees Assessment & Plan: Still with severe pain Refer to ortho Fluid retention Assessment & Plan: Worsening Order bumex 1 mg daily Orders: - bumetanide (BUMEX) 1 mg tablet; Take 1 tablet (1 mg total) by mouth 2 (two) times a day Chronic migraine without aura without status migrainosus, not intractable Assessment & Plan: Better Try ubrelvy for acute headaches Cont emgality Orders: - ubrogepant (Ubrelvy) 50 mg tablet; Take 1 tablet (50 mg total) by mouth once as needed for migraine May repeat dose once in 2 hours if no relief. Do not exceed 2 doses in 24 hours. Anxiety and depression Assessment & Plan: Not controlled Order viibryd Orders: - vilazodone (Viibryd) 10 mg tablet; Take 1 tablet (10 mg total) by mouth daily Daily Cruz MD documented in this encounter Miscellaneous Notes * Assessment & Plan Note - Daily Cruz MD - 07/16/2020 4:38 PM CDT Associated Problem(s): SOB (shortness of breath) (Deleted) Persistent since COVID infection Order ECHO * Assessment & Plan Note - Daily Cruz MD - 05/20/2020 12:42 PM CDT Associated Problem(s): Anxiety and depression Not controlled Order viibryd * Assessment & Plan Note - Daily Cruz MD - 05/20/2020 12:41 PM CDT Associated Problem(s): Fluid retention Worsening Order bumex 1 mg daily * Assessment & Plan Note - Daily Cruz MD - 05/20/2020 12:41 PM CDT Associated Problem(s): Lumbar spondylosis Worsening pain Refer to neurosurgery * Assessment & Plan Note - Daily Cruz MD - 05/20/2020 12:41 PM CDT Associated Problem(s): Prepatellar bursitis of both knees Still with severe pain Refer to ortho * Assessment & Plan Note - Daily Cruz MD - 05/20/2020 12:40 PM CDT Associated Problem(s): Non-refractory chronic migraine without aura Better Try ubrelvy for acute headaches Cont emgality * Addendum Note - Nadia Myles MA - 05/20/2020 11:15 AM CDTAddended by: NADIA MYLES on: 05/26/2020 01:51 PM Modules accepted: Orders documented in this encounter Plan of Treatment Not on file documented as of this encounter Visit Diagnoses Diagnosis Lumbar spondylosis- Primary Lumbosacral spondylosis without myelopathy Prepatellar bursitis of both knees Fluid retention Fluid overload Chronic migraine without aura without status migrainosus, not intractable Anxiety and depression SOB (shortness of breath) Shortness of breath documented in this encounter Care Teams Nuclear Medicine Supervisor Relationship Specialty Start Date End Date Daily Cruz MD PCP - General Family Medicine 08/01/19 03/03/21 documented as of this encounter
--- OUTSIDE RECORDS SUMMARY | 2024-02-21 19:39 | XMS_ITS | Encounter Summary ---
Author Organization [facility] Address [address] [place] [address] Care Team Providers Care Synthetic Resin Operator Name Role Phone Daily Cruz MD Primary Care Provider [phone] Reason for Visit * Reason Onset Date Comments Prior Auth 01/29/2020 PA sosa Coleman Encounter Details Date Type Department Care Team (Late st Contact Info) Description 01/29/2020 Telephone [facility] Family Medicine [address] [place] [address] [address] [place] [address] Daily Cruz MD [address] [place] [id number] Prior Auth (PA sosa Coleman) Social History Tobacco Use Types Packs/Day Years [...] on file Legal Sex Female 3:37 PM BORDER PATROL OFFICER Gender Identity Female 03/02/2020 4:27 PM BORDER PATROL OFFICER Sexual Orientation Straight 07/10/2019 11 :13 PM CDT documented as of this encounter Miscellaneous Notes * Telephone Encounter - Dia Huffman MA - 01/29/2020 2:05 PM CST Done on covermymeds and waiting on reply. ER PATROL OFFICER * Telephone Encounter - Dia Huffman MA - 01/29/2020 12:55 PM BORDER PATROL OFFICER PA on [employer] for covermymeds [id number] ER PATROL OFFICER documented in this encounter Plan of Treatment Not on file documented as of this encounter Visit Diagnoses Not on filedocumented in this encounter Additional Health Concerns Infection Onset Date Last Indicated Resolved Time COVID: Recovered Comment:Added based on recent COVID infection. 01/02/2020 01/22/2020 05/01/2020 3:05 AM C DT documented as of this encounter Care Teams Synthetic Resin Operator Relationship Specialty Start Date End Date Daily Cruz MD PCP - General Family Medicine 08/01/19 03/03/21 documented as of this encounter
--- OUTSIDE RECORDS SUMMARY | 2024-02-21 19:39 | XMS_ITS | Encounter Summary ---
Author Organization [facility] Address [address] [place] [address] Care Team Providers Care Director Project Management Name Role Phone Daily Cruz MD Primary Care Provider [phone] [phone] Reason for Referral * Diagnostic Imaging (Routine) - Closed Specialty Diagnoses / Procedures Referred By Matt burk Referred To Contact Diagnoses Left foot pain Procedures XR Foot Left 3 or More Views Charissa Holley MD Phone: tel: fax: [facility] Referral ID Status Reason Start Date Expiration Date Visits Re quested Visits Authorized [id number] Closed 01/22/2020 02/20/2021 1 1 ATION ONCOLOGY MANAGER Reason for Visit * Diagnostic Imaging (Routine) - Closed Specialty Diagnoses / Procedures Referred By Matt burk Referred To Contact Diagnoses Left foot pain Procedures XR Foot Left 3 or More Views Charissa Holley MD Phone: tel: fax: [facility] Referral ID Status Reason Start Date Expiration Date Visits Re quested Visits Authorized [id number] Closed 01/22/2020 02/20/2021 1 1 Encounter Details Date Type Department Care Team (Latest Contact Info) Description 01/27/2020 12:49 PM RADIATION ONCOLOGY MANAGER - 01/27/2020 11:59 PM RADIATION ONCOLOGY MANAGER Hospital Encounter [facility] Radiology at [facility] [address] [place] [address] Charissa Holley MD [address] [place] [address] Left foot pain Discharge Disposition: Discharge to home [...] on file Legal Sex Female 3:37 PM RADIATION ONCOLOGY MANAGER Gender Identity Female 03/02/2020 4:27 PM RADIATION ONCOLOGY MANAGER Sexual Orientation Straight 07/10/2019 11 :13 PM CDT documented as of this encounter Medications at Time of Discharge albuterol HFA (PROVENTIL HFA,VENTOLIN HFA,PROAIR HFA) 90 mcg/actuation inhaler Inhale 2 puffs every 6 (six) hours as needed 2 budesonide-formo teroL (Symbicort) 80-4.5 mcg/actuation inhalerIndicatio ns:Cough Inhale 2 puffs 2 (two) times a day Rinse mouth with water after use. Do not swallow. 1 Inhaler 12/18/2019 0 famotidine (PEPCID) 20 mg tablet 12/22/2019 0 fluticasone propionate (FLONASE) 50 mcg/actuation nasal sprayIndications :Cough,Nasal congestion Administer 2 sprays into each nostril daily 16 g 12/18/2019 2 levocetirizine (XYZAL) 5 mg tabletIndication s:Cough,Nasal congestion Take 1 tablet (5 mg total) by mouth daily 30 tablet 12/18/2019 2 levonorgestreL (KYLEENA) IUD 1 each by intrauterine route once 3 documented as of this encounter Discharge Disposition Disposition Code Departure Means Destination Discharge to home or self care documented in this encounter Plan of Treatment Not on file documented as of this encounter Procedures Procedure Name Priority Date/Time Associated Diagnosis Comments XR FOOT LEFT 3 OR MORE VIEWS Schedule Routine, Read Routine (OP Routine) 01/27/2020 12:56 PM RADIATION ONCOLOGY MANAGER Left foot pain documented in this encounter Results * XR Foot Left 3 or More Views (01/27/2020 12:56 PM RADIATION ONCOLOGY MANAGER) Anatomical Region Laterality Modality Lower Extremities, Foot Left Computed Radiography 01/27/2020 1:04 PM RADIATION ONCOLOGY MANAGER Impressions 01/27/2020 1:04 PM RADIATION ONCOLOGY MANAGER Healing revised left first tarsometatarsal joint arthrodesis. Electronically signed by: Mani Vilchis M.D. Narrative 01/27/2020 1:04 PM RADIATION ONCOLOGY MANAGER EXAMINATION: Left foot 3 views HISTORY: Left foot tarsometatarsal arthrodesis FINDINGS: 3 views of the left foot were performed with comparison made to 08/29/2019. There is a healing revised left medial midfoot arthrodesis. Heterotopic ossification is developing within the Lisfranc interval. There is no acute fracture of the foot. There is a heel spur. Procedure Note Mani Vilchis MD PhD - 01/27/2020 EXAMINATION: Left foot 3 views HISTORY: Left foot tarsometatarsal arthrodesis FINDINGS: 3 views of the left foot were performed with comparison made to 08/29/2019. There is a healing revised left medial midfoot arthrodesis. Heterotopic ossification is developing within the Lisfranc interval. There is no acute fracture of the foot. There is a heel spur. IMPRESSION: Healing revised left first tarsometatarsal joint arthrodesis. Electronically signed by: Mani Vilchis M.D. us Charissa Holley MD IMG XR PROCEDURES Karen l Result documented in this encounter Visit Diagnoses Diagnosis Left foot pain Pain in soft tissues of limb documented in this encounter Additional Health Concerns Infection Onset Date Last Indicated Resolved Time COVID: Recovered Comment:Added based on recent COVID infection. 01/02/2020 01/22/2020 05/01/2020 3:05 AM C DT documented as of this encounter Care Teams Director Project Management Relationship Specialty Start Date End Date Daily Cruz MD PCP - General Family Medicine 08/01/19 03/03/21 documented as of this encounter
--- OUTSIDE RECORDS SUMMARY | 2024-02-21 19:39 | XMS_ITS | Encounter Summary ---
Author Organization 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 Gender Identity Female 03/02/2020 4:27 PM SORTING SUPERVISOR Sexual Orientation Straight 07/10/2019 11 :13 [...] Date/Time Associated Diagnosis Comments SCAN - RADIOLOGY/IMAGING 12/20/2019 documented in this encounter Results * SCAN - RADIOLOGY/IMAGING (12/20/2019) Anatomical Region Laterality Modality Other us Daily Cruz MD Final Res ult documented in this encounter Visit Diagnoses Not on filedocumented in this encounter Additional Health Concerns Infection Onset Date Last Indicated Resolved Time COVID19 12/19/2019 12/19/2019 01/02/2020 3:07 AM SORTING SUPERVISOR COVID: Recovered Comment:Added based on recent COVID infection. 01/02/2020 01/22/2020 05/01/2020 3:05 AM C DT documented as of this encounter Care Teams Voucher Examiner Relationship Specialty Start Date End Date Daily Cruz MD PCP - General Family Medicine 08/01/19 03/03/21 documented as of this encounter
--- OUTSIDE RECORDS SUMMARY | 2024-02-21 19:39 | XMS_ITS | Encounter Summary ---
Author Organization [facility] Address [address] [place] [address] Care Team Providers Care Podiatric Technician Name Role Phone Jaime Dexter MD Primary Care Provider [phone] Reason for Referral * Cardiology (Routine) - Closed Specialty Diagnoses / Procedures Referred By Contac t Referred To Contact Diagnoses Shortness of breath Fluid retention Procedures Transthoracic Echo Complete W Doppler/CF Jaime Dexter MD Phone: tel: fax: [facility] [address] [place] [phone] Referral ID Status Reason Start Date Expiration Date Visits Re quested Visits Authorized [id number] Closed 07/19/2020 10/17/2020 1 1 Encounter Details Date Type Department Care Team (Late st Contact Info) Description 07/16/2020 Orders Only [facility] Family Medicine [address] [place] [address] Jaime Dexter MD [address] [place] [id number] Shortness of breath (Primary Dx); Fluid retention Social History Tobacco Use Types [...] file 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 Adult Echocardiogram + ----- ---+ :Name: JUD THOMAS ?? Study Date: 07/29/2020 ?Status: MHE ?: : ?[facility] ?: : ?Weight: 270 lbBP: 119/76 mmHg: :: 1990 ? Gender: Female ?BSA: 2.3 m2 ?: :Reason For Study: SOB ?: :Ordering Physician: ?: :DAGOBERTO-HILALY, JAIME ? : :Referring Physician: ? : :DAGOBERTO-HILALY, JAIME ? : :Performed By: Nesha ?: :Filiberto, ROLANDA ? : + ----- ---+ Procedure A two-dimensional transthoracic echocardiogram with color flow and Doppler was performed. A contrast injection of Definity was performed to improve assessment of LV function. Lot No. [id number]. Technically difficult study secondary to comorbidities. Left Ventricle The left ventricle is normal in size. There is normal left ventricular wall thickness. Left ventricular systolic function is normal. Ejection Fraction = 55-60%. No obvious regional wall motion abnormalities noted. Right Ventricle The right ventricle is normal size. The right ventricular systolic function is normal. Atria The left atrial size is normal. Right atrial size is normal. There is no Doppler evidence for an atrial septal defect. Mitral Valve The mitral valve leaflets appear normal. There is no evidence of stenosis, fluttering, or prolapse. There is no mitral valve stenosis. There is trace mitral regurgitation. Tricuspid Valve The tricuspid valve is normal. There is no tricuspid stenosis. There is trace to mild tricuspid regurgitation. Right ventricular systolic pressure is normal. Aortic Valve The aortic valve is normal in structure and function. Pulmonic Valve The pulmonic valve is not well seen, but is grossly normal. There is no pulmonic valvular stenosis. Trace to mild pulmonic valvular regurgitation. Great Vessels The aortic root is normal size. IVC appears normal in size. Pericardium There is no pericardial effusion. Diastology E/E prime ratio is <8 suggesting normal pulmonary wedge pressure and no LV diastolic dysfunction. Interpretation Summary Left ventricular systolic function is normal. Ejection Fraction = 55-60%. The right ventricular systolic function is normal. Right ventricular systolic pressure is normal. There is no pericardial effusion. E/E prime ratio is <8 suggesting normal pulmonary wedge pressure and no LV diastolic dysfunction. + + :Measurements with Normals ?: : ?(0.6-1.2 ?LVIDd: ?(3.5-5.7 ?? Ao root diam: ?(2.0-3.7 ?? : :IVSd: 1.1 cmcm) ? 4.2 cm ?cm) ?3.0 cm ? cm) ?: :LVPWd: ?(0.6-1.1 ?LVIDs: ?(3.1-4.6 ?? LA dimension: ?(1.9-4.0 ?? : :1.1 cm ?cm) ? 2.9 cm ?cm) ?4.1 cm ? cm) ?: + + MMode/2D Measurements & Calculations RVDd: 3.3 cm ? FS: 31.3 % ?Ao root area: ? LVOT diam: 2.2 cm ? EDV(Teich): 78.8 ml 7.1 cm2 ? LVOT area: ? ESV(Teich): 31.9 ml ? 3.8 cm2 ? LVLd ap4: 8.3 cm ? SV(MOD-sp4): ?EF (BP): 60.3 % EDV(MOD-sp4): ?62.7 ml 106.0 ml LVLs ap4: 6.4 cm ESV(MOD-sp4): 43.3 ml EF(MOD-sp4): 59.2 % Doppler Measurements & Calculations MV E max steph: ? MV dec time: ?Ao V2 max: ?LV V1 max P.1 cm/sec ? 0.20 sec ?93.8 cm/sec ? 3.9 mmHg MV A max steph: ? Ao max PG: ?LV V1 max: 40.2 cm/sec ? 3.5 mmHg ?98.7 cm/sec MV E/A: 1.4 ? [place](V,D): 4.0 cm2 ? TV V2 max: ?PA V2 max: ?RV V1 max: ?TR max steph: 50.8 cm/sec ? 102.0 cm/sec ?80.2 cm/sec ? 136.0 cm/sec TV max P.0 mmHg PA max P.2 mmHg ? TR max P.4 mmHg Electronically signed by: Chalino Evans MD 07/29/2020 05:17 PM Procedure Note Chalino Evans MD - 07/29/2020 Adult Echocardiogram + ----- ---+ :Name: JUD THOMAS Study Date: 07/29/2020 Status: TAJ: : [facility]^MHEHeight: 67 in: : Weight: 270lbBP: 119/76 mmHg: :: 1990 Gender: Female BSA: 2.3 m2: :Reason For Study: SOB: :Ordering Physician:: :JAIME DEXTER: :Referring Physician:: :JAIME DEXTER: :Performed By: Nesha: :ROLANDA De Los Santos: + ----- ---+ Procedure A two-dimensional transthoracic echocardiogram with color flow and Dopplerwas performed. A contrast injection of Definity was performed to improve assessment of LV function. Lot No. [id number]. Technically difficult studysecondary to comorbidities. Left Ventricle The left ventricle is normal in size. There is normal left ventricularwall thickness. Left ventricular systolic function is normal. Ejection Fraction= 55-60%. No obvious regional wall motion abnormalities noted. Right Ventricle The right ventricle is normal size. The right ventricular systolicfunction is normal. Atria The left atrial size is normal. Right atrial size is normal. There is no Doppler evidence for an atrial septal defect. Mitral Valve The mitral valve leaflets appear normal. There is no evidence ofstenosis, fluttering, or prolapse. There is no mitral valve stenosis. There istrace mitral regurgitation. Tricuspid Valve The tricuspid valve is normal. There is no tricuspid stenosis. There istrace to mild tricuspid regurgitation. Right ventricular systolic pressure is normal. Aortic Valve The aortic valve is normal in structure and function. Pulmonic Valve The pulmonic valve is not well seen, but is grossly normal. There is no pulmonic valvular stenosis. Trace to mild pulmonic valvularregurgitation. Great Vessels The aortic root is normal size. IVC appears normal in size. Pericardium There is no pericardial effusion. Diastology E/E prime ratio is <8 suggesting normal pulmonary wedge pressure and noLV diastolic dysfunction. Interpretation Summary Left ventricular systolic function is normal. Ejection Fraction = 55-60%. The right ventricular systolic function is normal. Right ventricular systolic pressure is normal. There is no pericardial effusion. E/E prime ratio is <8 suggesting normal pulmonary wedge pressure and noLV diastolic dysfunction. + + :Measurements with Normals: : (0.6-1.2 LVIDd: (3.5-5.7 Ao root diam:(2.0-3.7 : :IVSd: 1.1 cmcm) 4.2 cm cm) 3.0 cm cm): :LVPWd: (0.6-1.1 LVIDs: (3.1-4.6 LA dimension:(1.9-4.0 : :1.1 cm cm) 2.9 cm cm) 4.1 cm cm): + + MMode/2D Measurements & Calculations RVDd: 3.3 cm FS: 31.3 % Ao root area: LVOT diam:2.2 cm EDV(Teich): 78.8 ml 7.1 cm2 LVOT area: ESV(Teich): 31.9 ml 3.8 cm2 LVLd ap4: 8.3 cm SV(MOD-sp4): EF (BP): 60.3 % EDV(MOD-sp4): 62.7 ml 106.0 ml LVLs ap4: 6.4 cm ESV(MOD-sp4): 43.3 ml EF(MOD-sp4): 59.2 % Doppler Measurements & Calculations MV E max steph: MV dec time: Ao V2 max: LV V1 max P.1 cm/sec 0.20 sec 93.8 cm/sec 3.9 mmHg MV A max steph: Ao max PG: LV V1 max: 40.2 cm/sec 3.5 mmHg 98.7 cm/sec MV E/A: 1.4 [place](V,D): 4.0 cm2 TV V2 max: PA V2 max: RV V1 max: TR max steph: 50.8 cm/sec 102.0 cm/sec 80.2 cm/sec 136.0 cm/sec TV max P.0 mmHg PA max P.2 mmHg TR max P.4mmHg Electronically signed by: Chalino Evans MD 07/29/2020 05:17 PM us Jaime Dexter MD CV ECHO PROCEDURES Final Result documented in this encounter Visit Diagnoses Diagnosis Shortness of breath- Primary Fluid retention Fluid overload Shortness of breath Fluid retention Fluid overload documented in this encounter Care Teams Podiatric Technician Relationship Specialty Start Date End Date Jaime Dexter MD PCP - General Family Medicine 08/01/19 03/03/21 documented as of this encounter
--- OUTSIDE RECORDS SUMMARY | 2024-02-21 19:39 | XMS_ITS | Encounter Summary ---
Author Organization [facility] Healthcare Address [address] [place] [address] Care Team Providers Care Railroad Firer Name Role Phone Daily Cruz MD Primary Care Provider [phone] [phone] Reason for Visit * Reason Comments Headache Encounter Details Date Type Department Care Team (Late st Contact Info) Description 09/10/2020 10:12 AM CDT - 09/10/2020 3:02 PM CDT Emergency [address] [address] Raimundo Shields MD [address] [place] [id number] Other migraine without status migrainosus, not intractable (Primary Dx) [...] on file Legal Sex Female 3:37 PM BENCH GRINDER Gender Identity Female 03/02/2020 4:27 PM BENCH GRINDER Sexual Orientation Straight 07/10/2019 11 :13 PM CDT documented as of this encounter Last Filed Vital Signs Vital Sign Reading Time Taken Comments Blood Pressure 120/68 09/10/2020 2:56 PM CDT Pulse 60 09/10/2020 2:56 PM CDT Temperature 36.6 ??C (97.9 ??F) 09/10/2020 8:43 AM CD T Respiratory Rate 16 09/10/2020 2:56 PM CDT Oxygen Saturation 100% 09/10/2020 2:56 PM CDT Inhaled Oxygen Concentration - - Weight 123.3 kg (271 lb 13.2 oz) 09/10/2020 8:43 AM CDT Height 170.2 cm (5' 7 ) 09/10/2020 8:43 AM CDT Body Mass Index 42.57 09/10/2020 8:43 AM CDT documented in this encounter Discharge Instructions * Attachments The following attachments cannot be sent through Care Everywhere. * Migraine Headache (AfterCare(R) Instructions(ER/ED)) (Citizen Of [place]) documented in this encounter Medications at Time [...] BY MOUTH TWICE A DAY 60 tablet 2 06/12/[address] (VOLTAREN) 75 mg EC [...] REPEAT DOSE AFTER 2 HOURS 9 tablet 08/24/2020 1 ubrogepant (Ubrelvy) 50 mg tabletIndications :Chronic migraine [...] documented in this encounter ED Notes * Raimundo Shields MD - 09/10/2020 12:59 PM CDT Chief Complaint Patient presents with ??? Headache HPI GAGNON x1 month, inc in severity w/o relief of OTC/prescribed medications. Right sided head pain, but mostly in left eye and down neck. Hx of freq GAGNON in past but none have ever lasted this long. +blurred/double vision. +mild dizziness. +n/v. -fevers, -cough, -congestion. Patient presents with migraine headache. Patient states this event occurred over the past month. Patient describes their pain as achy and rates as moderate . Pain is worse with activity and better with rest . Patient denies taking blood thinners. Other significant PMH includes history of migraine headaches. Associated symptoms include patient with mild blurred vision and has been evaluated by ophthalmology. Associated risk factors include patient obese. Other relevant medications the patient takes include as below. Patient's code status is full code. Patient's PCP is luis. Patient History: Patient Active Problem List Diagnosis Date Noted ??? Well adult exam 08/25/2020 ??? Leg cramping 08/19/2020 ??? Acute recurrent maxillary sinusitis 08/05/2020 ??? Hiccups 08/05/2020 ??? Herpes zoster without complication 06/09/2020 ??? Prepatellar bursitis of both knees 05/20/2020 ??? Lumbar spondylosis 05/20/2020 ??? Fluid retention 05/20/2020 ??? Reactive airway disease that is not asthma 04/22/2020 ??? Anxiety and depression 04/01/2020 ??? Acute bilateral low back pain without sciatica 03/04/2020 ??? Chronic pain of both knees 03/04/2020 ??? Lumbar degenerative disc disease 03/04/2020 ??? Chronic pain of both hips 03/04/2020 ??? Chronic bilateral low back pain 01/29/2020 ??? Left hip pain 01/29/2020 ??? Acute pain of left knee 01/29/2020 ??? Pustular rash 01/29/2020 ??? Pneumonia due to COVID-19 virus 12/21/2019 ??? Exposure to COVID-19 virus 12/18/2019 ??? Cough 12/18/2019 ??? Nasal congestion 12/18/2019 ??? Arthralgia 08/01/2019 ??? Elevated sedimentation rate 08/01/2019 ??? Reactive airway disease 07/11/2019 ??? Attention deficit disorder (ADD) in adult 07/11/2019 ??? Rathke's cyst ([facility]/HCC) 07/11/2019 ??? Chronic migraine without aura without status migrainosus, not intractable 07/11/2019 ??? Pseudotumor cerebri 07/11/2019 ??? Pain and swelling of lower extremity 07/11/2019 ??? SOB (shortness of breath) 07/11/2019 ??? 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 or arthrodesis 07/01/2019 ??? Painful orthopaedic hardware ([facility]/HCC) 07/01/2019 ??? Seizure (CMS/HCC) 04/25/2017 ??? Morbid obesity with BMI of 40.0-44.9, adult (CMS/HCC) 03/22/2016 ??? Benign intracranial hypertension 03/11/2016 ??? Chronic intractable headache 01/04/2016 ??? Hyperthyroidism 09/28/2015 ??? Family history of seizure disorder 05/28/2015 ??? History of syncope 05/28/2015 ??? Vitamin D deficiency 05/28/2015 ??? Obesity due to excess calories 12/24/2014 ??? Simple obesity 10/22/2014 ??? Allergic rhinitis 01/31/2009 ??? Candidiasis of vagina 01/31/2009 ??? Gastritis 01/31/2009 ??? Increased frequency of urination 01/31/2009 ??? Migraine headache 01/31/2009 ??? Oral candidiasis 01/31/2009 ??? Paronychia 01/31/2009 ??? Screening for condition 01/31/2009 ??? Seborrhea 01/31/2009 ??? Skin striae 01/31/2009 ??? Tinea pedis 01/31/2009 Past Medical History: Diagnosis Date ??? ADHD (attention deficit hyperactivity disorder) ??? Anxiety ??? Arthritis ??? Brain concussion ??? Chronic bronchitis (CMS/HCC) ??? Depression ??? Gastric reflux ??? GERD (gastroesophageal reflux disease) ??? Jaundice ??? Kidney stone ??? Migraines ??? Motion sickness ??? Obesity ??? Peptic ulceration ??? Pneumonia ??? PONV (postoperative nausea and vomiting) premedicated and scopolamine patch ??? Seasonal allergies ??? Seizures (CMS/HCC) Past Surgical History: Procedure Laterality Date ??? ABDOMINAL SURGERY Laparoscopic surgery to remove endometriosis ??? FOOT SURGERY 2018 2 left bunion, 1 right bunion ??? FOOT SURGERY 07/16/2019 revision left tarsometatarsal joint arthrodesis iliac crest bone graft - Left ??? LAPAROSCOPIC ENDOMETRIOSIS FULGURATION 2017 ??? TONSILECTOMY, ADENOIDECTOMY, BILATERAL MYRINGOTOMY AND TUBES ??? WISDOM TOOTH EXTRACTION Family History Problem [...] Use ??? Vaping Use: Never assessed Substance Use Topics ??? Alcohol use: Not Currently Alcohol/week: 0.0 standard drinks Comment: Maybe a drink every few months ??? Drug use: Never Social History Social History Narrative ??? Not on file HOME MEDICATIONS : albuterol HFA (Ventolin HFA) [...] mg tablet ubrogepant (Ubrelvy) 50 mg tablet Review of Systems Constitutional: Negative [...] All other systems reviewed and are negative. ED Triage Vitals [09/10/20 0843] Temp Pulse Resp BP SpO2 36.6 ??C (97.9 ??F) 70 18 126/80 97 % Temp src Heart Rate Source Patient Position BP Location FiO2 (%) Oral Pulse Oximetry Sitting Right arm -- Physical Exam Vitals and [...] Tenderness: There is no abdominal tenderness. Musculoskeletal: Cervical back: Neck supple. Skin: General: Skin is warm and dry. Neurological: Mental Status: She is alert. MDM Patient with improvement in headache, has follow up with pcp tomorrow, will also have follow up with neurology Final diagnoses: Other migraine without status migrainosus, not intractable Raimundo Shields MD 09/10/20 1460 * Gretel Patricio RN - 09/10/2020 8:46 AM CDT GAGNON x1 month, inc in severity w/o relief of OTC/prescribed medications. Right sided head pain, but mostly in left eye and down neck. Hx of freq GAGNON in past but none have ever lasted this long. +blurred/double vision. +mild dizziness. +n/v. -fevers, -cough, -congestion. documented in this encounter Plan of Treatment Not on file documented as of this encounter Procedures Procedure Name Priority Date/Time Associated Diagnosis Comments CT HEAD WO CONTRAST ED 09/10/2020 1 1:28 AM CDT POCT HCG, URINE Routine 09/10/2020 9:13 AM CDT EGFR STAT 09/10/2020 8:59 AM CDT DIFFERENTIAL AUTO STAT 09/10/2020 8:5 9 AM CDT CBC WITH AUTO DIFFERENTIAL STAT 09/10/2020 8:59 AM CDT COMPREHENSIVE METABOLIC PANEL STAT 09/10/2020 8:59 AM CDT documented in this encounter Results * CT Head WO Contrast (09/10/2020 11:28 AM CDT) Anatomical Region Laterality Modality Head and Neck N/A Computed Tomogra phy 09/10/2020 11:3 0 AM CDT Narrative 09/10/2020 11:36 AM CDT EXAM DESCRIPTION: ?? CT HEAD WO CONTRAST REASON FOR STUDY: ?? Chronic headaches, increased in severity for 1 month with fatigue. TECHNIQUE: ??Axial images acquired through the brain without intravenous contrast. ??Images stored on PACS. ?? Automated exposure control was used as a dose optimization technique for this examination. COMPARISON: ?? Brain MRI from February 28, 2020 FINDINGS: BRAIN: ??No hemorrhage, edema or mass effect. No recent infarct. ??Normal white matter. ?? EXTRA-AXIAL SPACES: ??No fluid collections. No masses. CALVARIUM: ??No fracture. SINUSES/MASTOIDS: ??No fluid or mucosal thickening. ORBITS: ??No significant abnormality. OTHER: ??No other significant abnormality. IMPRESSION: ?? No acute intracranial findings. THIS IS AN ELECTRONICALLY VERIFIED FINAL REPORT 09/10/2020 11:36 AM - Electronically signed by Yoel FERRIS D: ??09/10/2020 11:36 AM T: Report ID: [id number] Reading Location: ??[id number] Procedure Note Yoel Dill MD - 09/10/2020 EXAM DESCRIPTION: CT HEAD WO CONTRAST REASON FOR STUDY: Chronic headaches, increased in severity for 1 monthwith fatigue. TECHNIQUE: Axial images acquired through the brain without intravenous contrast. Images stored on PACS. Automated exposure control was used asa dose optimization technique for this examination. COMPARISON: Brain MRI from February 28, 2020 FINDINGS: BRAIN: No hemorrhage, edema or mass effect. No recent infarct. Normalwhite matter. EXTRA-AXIAL SPACES: No fluid collections. No masses. CALVARIUM: No fracture. SINUSES/MASTOIDS: No fluid or mucosal thickening. ORBITS: No significant abnormality. OTHER: No other significant abnormality. IMPRESSION: No acute intracranial findings. THIS IS AN ELECTRONICALLY VERIFIED FINAL REPORT 09/10/2020 11:36 AM - Electronically signed by Yoel Dill M.D. RB T: Report ID: [id number] Reading Location: [id number] [facility] IMG CT PROCEDURES Final Result * POCT hCG, urine (09/10/2020 9:13 AM CDT) HCG, ur, POC Negative Lot Number [id number] QC Backgroud Clear Acceptable QC Control Line Acceptable Urine 09/10/2020 9:13 AM CDT Joseph [facility] POINT OF CARE TEST ORDERABLES Final Result * eGFR (09/10/2020 8:59 AM CDT) eGFR 118 mL/min/1.7 3 m2 ANGELICA VERDUGO Comment: Interpretive [...] interpretive data was last reviewed 2020 Blood specimen (specimen) 09/10/2020 8:59 AM CDT 09/10/2020 9:01 AM CDT us Joseph [facility] LAB BLOOD ORDERABLES Final Res ult ANGELICA [address] [facility] Department [place] [address] * Differential, auto (09/10/2020 8:59 AM CDT) Pathologist [facility] Neutrophil abs 6.4 1.7 - 6.5 K/cumm [facility] Imm gran abs 0.0 0.0 - 0.1 K/cumm [facility] Lymphocyte abs 2.5 0.8 - 3.3 K/cumm [facility] Monocyte abs 0.5 0.2 - 0.8 K/cumm [facility] Eosinophil abs 0.1 0.0 - 0.5 K/cumm [facility] Basophil abs 0.0 0.0 - 0.1 K/cumm [facility] Neutrophil pct 67.2 % [facility] Comment: Interpretive Data Percent cell count reference ranges are not reported, since discordance with absolute values may lead to misinterpretation of CBC data. Current Interpretive Data was last revised on 2017. Imm gran pct 0.3 % [facility] Comment: Interpretive Data Percent cell count reference ranges are not reported, since discordance with absolute values may lead to misinterpretation of CBC data. Current Interpretive Data was last revised on 2017. Lymphocyte pct 26.5 % [facility] Comment: Interpretive Data Percent cell count reference ranges are not reported, since discordance with absolute values may lead to misinterpretation of CBC data. Current Interpretive Data was last revised on 2017. Monocyte pct 4.9 % [facility] Comment: Interpretive Data Percent cell count reference ranges are not reported, since discordance with absolute values may lead to misinterpretation of CBC data. Current Interpretive Data was last revised on 2017. Eosinophil pct 0.8 % [facility] Comment: Interpretive Data Percent cell count reference ranges are not reported, since discordance with absolute values may lead to misinterpretation of CBC data. Current Interpretive Data was last revised on 2017. Basophil pct 0.3 % [facility] Comment: Interpretive Data Percent cell count reference ranges are not reported, since discordance with absolute values may lead to misinterpretation of CBC data. Current Interpretive Data was last revised on 2017. Blood specimen (specimen) 09/10/2020 8:59 AM CDT 09/10/2020 9:01 AM CDT us Joseph [facility] LAB BLOOD ORDERABLES Final Res ult [facility] [address] [facility] Department [place] [address] * Comprehensive metabolic panel (09/10/2020 8:59 AM CDT) Sodium 140 135 - 145 mmol/L [facility] Potassium, pl 4.0 3.3 - 4.9 mmol/L [facility] Chloride 104 97 - 110 mmol/L [facility] CO2 26 22 - 32 mmol/L [facility] Anion gap 10 2 - 15 mmol/L [facility] BUN 14 8 - 25 mg/dL [facility] Creatinine 0.70 0.60 - 1.10 mg/dL [facility] Glucose 98 70 - 199 mg/dL [facility] Comment: Interpretive Data Fasting glucose [...] interpretive data was last revised 2016. Calcium 9.2 8.5 - 10.3 mg/dL [facility] Bilirubin, total 0.3 0.1 - 1.2 mg/dL [facility] Protein, pl 7.4 6.5 - 8.5 g/dL [facility] Albumin 4.1 3.5 - 5.0 g/dL [facility] Alk phos 96 40 - 130 Units/L [facility] ALT 13 7 - 45 Units/L [facility] AST 13 10 - 45 Units/L [facility] Blood specimen (specimen) 09/10/2020 8:59 AM CDT 09/10/2020 9:01 AM CDT Joseph [facility] LAB BLOOD ORDERABLES Final Res ult [facility] [address] [facility] Department [place] [address] * CBC with auto differential (09/10/2020 8:59 AM CDT) WBC 9.5 3.8 - 9.9 K/cumm [facility] Hgb 13.1 11.9 - 15.5 g/dL [facility] Hct 40.1 35.6 - 45.5 % [facility] Plt 378 150 - 400 K/cumm [facility] MPV 10.2 9.1 - 12.3 fL [facility] RBC 4.50 3.90 - 5.20 M/cumm [facility] MCV 89.1 81.3 - 96.4 fL [facility] MCH 29.1 27.1 - 33.3 pg [facility] MCHC 32.7 32.3 - 35.7 g/dL [facility] RDW CV 14.4 11.1 - 14.9 % [facility] RDW SD 46.6 35.7 - 48.1 fL [facility] NRBC abs 0.00 0.00 - 0.01 K/cumm ANGELICA Blood specimen (specimen) 09/10/2020 8:59 AM CDT 09/10/2020 9:01 AM CDT us Joseph [facility] LAB BLOOD ORDERABLES Final Res ult ANGELICA [address] [facility] Department [place] [address] documented in this encounter Visit Diagnoses Diagnosis Other migraine without status migrainosus, not intractable- Primary documented in this encounter Administered Medications Inactive Administered Medications - up to 3 most recent administrations Medication Order MAR Action Action Date Dose Rate Site diphenhydrAMINE (BENADRYL) injection 25 mg 25 mg, intravenous, Administer over 2 Minutes, Once, On Bonita 09/10/20 at 0854, For 1 dose Given 09/10/2020 9:01 AM CDT 25 mg ketorolac (TORADOL) injection 30 mg 30 mg, intravenous, Once, On Bonita 09/10/20 at 0854, For 1 dose, For Adult IV push, administer over 15 seconds, Indications: Administration of General AnesthesiaIndications:Administratio n of General Anesthesia Given 09/10/2020 9:00 AM CDT 30 mg prochlorperazine (COMPAZINE) injection 5 mg 5 mg, intravenous, Administer over 2 Minutes, Once, On Bonita 09/10/20 at 0854, For 1 dose Given 09/10/2020 9:02 AM CDT 5 mg documented in this encounter Active and Recently Administered Medications Times are shown in CDT. Scheduled Medication Order 09/08/2020 09/09/2020 09/10/2020 dexAMETHasone (DECADRON) preservative free solution 10 mg 10 mg, intravenous, Administer over 2 Minutes, Once, On Bonita 09/10/20 at 1313, For 1 dose 1458 (Not Given - Pr ovider: Pepper Jaramillo RN - Reason: Order Discontinued) diphenhydrAMINE (BENADRYL) injection 25 mg (COMPLETED) 25 mg, intravenous, Administer over 2 Minutes, Once, On Obnita 09/10/20 at 0854, For 1 dose 0901 (Given - Provid er: Gretel Patricio RN) diphenhydrAMINE (BENADRYL) injection 25 mg 25 mg, intravenous, Administer over 2 Minutes, Once, On Bonita 09/10/20 at 1313, For 1 dose 1458 (Not Given - Pr ovider: Pepper Jaramillo RN - Reason: Order Discontinued) ketorolac (TORADOL) injection 30 mg (COMPLETED) 30 mg, intravenous, Once, On Bonita 09/10/20 at 0854, For 1 dose, For Adult IV push, administer over 15 seconds, Indications: Administration of General Anesthesia 0900 (Given - Provid er: Gretel Patricio RN) prochlorperazine (COMPAZINE) injection 10 mg 10 mg, intravenous, Administer over 2 Minutes, Once, On Bonita 09/10/20 at 1313, For 1 dose 1459 (Hold - Provide r: Pepper Jaramillo RN - Reason: Order Discontinued) prochlorperazine (COMPAZINE) injection 5 mg (COMPLETED) 5 mg, intravenous, Administer over 2 Minutes, Once, On Bonita 09/10/20 at 0854, For 1 dose 0902 (Given - Provid er: Gretel Patricio RN) promethazine (PHENERGAN) tablet 25 mg 25 mg, oral, Once, On Bonita 09/10/20 at 1326, For 1 dose 1459 (Hold - Provide r: Pepper Jaramillo RN - Reason: Order Discontinued) sodium chloride 0.9% bolus 1,000 mL 1,000 mL, intravenous, Once, On Bonita 09/10/20 at 1307, For 1 dose 1459 (Not Given - Pr ovider: Pepper Jaramillo RN - Reason: Order Discontinued) documented in this encounter Orders Medications Ordered That Gerhard ht Not Have Been Administered Count Last Ordered Date First Ordered Date dexAMETHasone (DECADRON) pre servative free solution 10 mg 1 09/10/2020 diphenhydrAMINE (BENADRYL) injection 25 mg 1 09/10/2020 prochlorperazine (COMPAZINE) injection 10 mg 1 09/10/2020 promethazine (PHENERGAN) injection 25 mg 1 09/10/2020 promethazine (PHENERGAN) tablet 25 mg 1 sodium chloride 0.9% bolus 1,000 mL 1 09/10 Nursing Count Last Ordered Date First Orde red Date VISUAL ACUITY SCREENING 1 09/10/2020 IV Count Last Ordered Date First Orde red Date SALINE LOCK IV 1 09/10/2020 documented in this encounter Care Teams Railroad Firer Relationship Specialty Start Date End Date Daily Cruz MD PCP - General Family Medicine 08/01/19 03/03/21 documented as of this encounter
--- OUTSIDE RECORDS SUMMARY | 2024-02-21 19:39 | XMS_ITS | Encounter Summary ---
Author Organization [facility] Address [address] [place] [address] Care Team Providers Care Veneer Glue Spreader Name Role Phone Daily Cruz MD Primary Care Provider [phone] Encounter Details Date Type Department Care Team (Late st Contact Info) Description 12/30/2019 Orders Only [facility] Family Medicine [address] [place] [address] Daily Cruz MD [address] [place] [address] [address] [place] [address] Social History Tobacco Use Types [...] on file Legal Sex Female 3:37 PM PRECINCT POLICE SERGEANT Gender Identity Female 03/02/2020 4:27 PM PRECINCT POLICE SERGEANT Sexual Orientation Straight 07/10/2019 11 :13 PM CDT documented as of this encounter Ordered Prescriptions Prescription Sig Dispense Quantity Refills Last Filled Start Date End Date nystatin 100,000 unit/mL suspension Take 5 mL (500,000 Units total) by mouth 4 (four) times a day Swish in mouth and spit out. 280 mL 12/30/2019 01/27/2020 documented in this encounter Plan of Treatment Not on file documented as of this encounter Visit Diagnoses Not on filedocumented in this encounter Additional Health Concerns Infection Onset Date Last Indicated Resolved Time COVID19 12/19/2019 12/19/2019 01/02/2020 3:07 AM PRECINCT POLICE SERGEANT documented as of this encounter Care Teams Veneer Glue Spreader Relationship Specialty Start Date End Date Daily Cruz MD PCP - General Family Medicine 08/01/19 03/03/21 documented as of this encounter
--- OUTSIDE RECORDS SUMMARY | 2024-02-21 19:39 | XMS_ITS | Encounter Summary ---
Author Organization [facility] Address [address] [place] [address] Care Team Providers Care Rag Grader Name Role Phone Daily Cruz MD Primary Care Provider [phone] Reason for Visit * Reason Onset Date Comments Ear Pain, Swollen Eye 07/28/2020 Encounter Details Date Type Department Care Team (Late st Contact Info) Description 07/28/2020 Telephone [facility] Family Medicine [address] [place] [address] [address] [place] [address] Daily Cruz MD [address] [place] [address] Ear Pain, Swollen Eye Social History Tobacco Use Types Packs/Day Years [...] on file Legal Sex Female 3:37 PM STAFFING AND SCHEDULING COORDINATOR Gender Identity Female 03/02/2020 4:27 PM STAFFING AND SCHEDULING COORDINATOR Sexual Orientation Straight 07/10/2019 11 :13 PM CDT documented as of this encounter Miscellaneous Notes * Telephone Encounter - Leticia Thomas - 07/28/2020 8:14 AM CDT Patient calls today requesting appointment. Has ear pain, swollen eye, chills, swollen gums and sore throat. Patient given Respiratory [facility] #. documented in this encounter Plan of Treatment Not on file documented as of this encounter Visit Diagnoses Not on filedocumented in this encounter Care Teams Rag Grader Relationship Specialty Start Date End Date Daily Cruz MD PCP - General Family Medicine 08/01/19 03/03/21 documented as of this encounter
--- OUTSIDE RECORDS SUMMARY | 2024-02-21 19:39 | XMS_ITS | Encounter Summary ---
Author Organization [facility] Address [address] [place] [address] Care Team Providers Care Seat Maker Name Role Phone Daily Cruz MD Primary Care Provider [phone] Encounter Details Date Type Department Care Team (Late st Contact Info) Description 03/21/2020 Orders Only [facility] Family Medicine [address] [place] [address] Daily Cruz MD [address] [place] [address] [address] [place] [address] Social History Tobacco Use Types [...] on file Legal Sex Female 3:37 PM TREATER HELPER Gender Identity Female 03/02/2020 4:27 PM TREATER HELPER Sexual Orientation Straight 07/10/2019 11 :13 PM CDT documented as of this encounter Ordered Prescriptions Prescription Sig Dispense Quantity Refills Last Filled Start Date End Date SUMAtriptan (IMITREX) 50 mg tabletIndications: Migraine Take 1 tablet (50 mg total) by mouth once as needed for migraine May repeat after 2 hours. 9 tablet 03/21/2020 documented in this encounter Plan of Treatment Not on file documented as of this encounter Visit Diagnoses Not on filedocumented in this encounter Additional Health Concerns Infection Onset Date Last Indicated Resolved Time COVID: Recovered Comment:Added based on recent COVID infection. 01/02/2020 01/22/2020 05/01/2020 3:05 AM C DT documented as of this encounter Care Teams Seat Maker Relationship Specialty Start Date End Date Daily Cruz MD PCP - General Family Medicine 08/01/19 03/03/21 documented as of this encounter
--- OUTSIDE RECORDS SUMMARY | 2024-02-21 19:39 | XMS_ITS | Encounter Summary ---
Author Organization [facility] Address [address] [place] [address] Care Team Providers Care Microsoft Exchange Architect Name Role Phone Daily Cruz MD Primary Care Provider [phone] [phone] Reason for Visit * Reason Onset Date Comments [employer] paperwork 02/21/2020 Encounter Details Date Type Department Care Team (Late st Contact Info) Description 02/21/2020 Telephone [facility] Family Medicine [address] [facility] [address] [place] [address] Daily Cruz MD [address] [place] [phone] [employer] paperwork Social History Tobacco Use Types Packs/Day Years [...] on file Legal Sex Female 3:37 PM GAS PUMPING STATION SUPERVISOR Gender Identity Female 03/02/2020 4:27 PM GAS PUMPING STATION SUPERVISOR Sexual Orientation Straight 07/10/2019 11 :13 PM CDT documented as of this encounter Miscellaneous Notes * Telephone Encounter - Ignacia Mckeon - 12/04/2020 11:20 AM CDT Paperwork has been in package pick up drawer since February 2020. Mailed paperwork to patient for her records. * Telephone Encounter - Varun Robins MA - 02/24/2020 3:50 PM CST Talked to Jud, told her what I discussed with [facility] PUMPING STATION SUPERVISOR * Telephone Encounter - Varun Robins MA - 02/24/2020 10:37 AM GAS PUMPING STATION SUPERVISOR Called [facility] spoke to Shankar and asked him did they need anything else from they stated they didn't and that were waiting on medical records to send documents. Got medical records number from [facility] and gave him medical records number to track which is [phone]. PUMPING STATION SUPERVISOR * Telephone Encounter - Varun Robins MA - 02/24/2020 9:23 AM CST lmtcb to speak to me PUMPING STATION SUPERVISOR * Telephone Encounter - Kassi Taylor - 02/21/2020 1:40 PM CST Pt called looking for paperwork requested by [facility], said it needs to be in by 02/28/20. Advised pt Dr. Calero has paperwork, will be in on Monday and we will fax it to [facility] then. Pt voiced her understanding. PUMPING STATION SUPERVISOR documented in this encounter Plan of Treatment [...] documented as of this encounter Care Teams Microsoft Exchange Architect Relationship Specialty Start Date End Date Daily Cruz MD PCP - General Family Medicine 08/01/19 03/03/21 documented as of this encounter
--- OUTSIDE RECORDS SUMMARY | 2024-02-21 19:39 | XMS_ITS | Encounter Summary ---
Author Organization [facility] Address [address] [place] [address] Care Team Providers Care Pickling Operator Name Role Phone Daily Cruz MD Primary Care Provider [phone] [phone] Reason for Visit * Reason Onset Date Comments Prior Auth 03/05/2020 PA on Emgality Encounter Details Date Type Department Care Team (Late st Contact Info) Description 03/05/2020 Telephone [facility] Family Medicine [address] [place] [address] [address] [place] [address] Daily Cruz MD [address] [phone] Prior Auth (PA on Emgality) Social History Tobacco Use Types Packs/Day Years [...] on file Legal Sex Female 3:37 PM ELEVATING GRADER OPERATOR Gender Identity Female 03/02/2020 4:27 PM ELEVATING GRADER OPERATOR Sexual Orientation Straight 07/10/2019 11 :13 PM CDT documented as of this encounter Miscellaneous Notes * Telephone Encounter - Armida Devine PA - 05/01/2020 12:43 PM CDT Appt 05/20 * Telephone Encounter - Dia Huffman MA - 03/09/2020 9:50 AM CST Denial in your tray. ATING GRADER OPERATOR * Telephone Encounter - Jodi Mock MA - 03/06/2020 10:27 AM ELEVATING GRADER OPERATOR PA was sent to plan on cover my meds. Faxed Progress note from 03/04/20 to [phone]. ATING GRADER OPERATOR * Telephone Encounter - Dia Huffman MA - 03/05/2020 11:01 AM ELEVATING GRADER OPERATOR PA on Emgality 120mg/mL for covermymeds [id number] ATING GRADER OPERATOR documented in this encounter Plan of Treatment Not on file documented as of this encounter Visit Diagnoses Not on filedocumented in this encounter Additional Health Concerns Infection Onset Date Last Indicated Resolved Time COVID: Recovered Comment:Added based on recent COVID infection. 01/02/2020 01/22/2020 05/01/2020 3:05 AM C DT documented as of this encounter Care Teams Pickling Operator Relationship Specialty Start Date End Date Daily Cruz MD PCP - General Family Medicine 08/01/19 03/03/21 documented as of this encounter
--- OUTSIDE RECORDS SUMMARY | 2024-02-21 19:39 | XMS_ITS | Encounter Summary ---
Author Organization [facility] Address [address] [place] [address] Phone Care Team Providers Care Welding Machine Operator Electroslag Name Role Phone Daily Cruz MD Primary Care Provider [phone] [phone] Reason for Referral * Diagnostic Imaging (Routine) - Closed Specialty Diagnoses / Procedures Referred By Matt burk Referred To Contact Diagnoses Left foot pain Procedures XR Foot Left 3 or More Views Charissa Holley MD Phone: tel: fax: [facility] Referral ID Status Reason Start Date Expiration Date Visits Re quested Visits Authorized [id number] Closed 01/22/2020 02/20/2021 1 1 Y CANDY MAKER Reason for Visit * Reason Comments Follow-up Encounter Details Date Type Department Care Team (Late st Contact Info) Description 01/27/2020 12:45 PM TAFFY CANDY MAKER Office Visit [facility] Orthopaedic Surgery [address] [facility] [address] [facility] [address] [facility] 1st [address] [place] [address] Charissa Holley MD [address] [place] [address] Left foot pain (Primary Dx); Orthopedic aftercare Social History Tobacco Use Types Packs/Day Years [...] on file Legal Sex Female 3:37 PM TAFFY CANDY MAKER Gender Identity Female 03/02/2020 4:27 PM TAFFY CANDY MAKER Sexual Orientation Straight 07/10/2019 11 :13 PM CDT documented as of this encounter Progress Notes * Charissa Holley MD - 01/27/2020 12:45 PM CST RETURN PATIENT VISIT INTERIM HISTORY Surgical Procedure: Revision left first TMT joint arthrodesis Iliac crest bone graft ?? Date of Surgery: 07/16/2019 The patient returns today for the left foot. Patient reports no major issues with the foot. She still has some pain and weakness but her recovery was slowed by the fact that she had covid that was severe and kept her at home for almost a month. She is having left hip and low back pain that is really bothering her. PHYSICAL EXAMINATION The patient is alert and in no acute distress. The left foot has no swelling. Alignment great toes well maintained. Hindfoot alignment is neutral. She is minimally tender to palpation. REVIEW OF X-RAYS/STUDIES Radiographs are ordered and reviewed today by me of the left foot. AP, lateral and oblique views ofthe left foot show a healed first tarsometatarsal joint arthrodesis. IMPRESSION/DIAGNOSIS Post above-stated procedure TREATMENT/PLAN Her recent illness did set her back in terms of her rehabilitation. However, she has well-healed and I do not have any restrictions on her. She will continue the physical therapy exercises. She is going to follow up with me as needed. She asks about the right foot. It sounds like it may have causedher some problems off and on. Overall, I do not recommend any additional surgery for her right now given her recent illness. Her left hip and her back are bothering her a lot. It is altering her gait. I recommend that she see someone for that and obtain appropriate treatment. She will follow up with me as needed. The patient was encouraged to call us if any questions or concerns arise. FOLLOW UP Follow up prn Next visit: As needed Charissa Holley MD Seaming Machine Operator Foot & Ankle Service [facility] Orthoped[facility] Dr. Charissa Holley dictating using [employer] Naturally Speaking Software. Director Of Teenage Activities variances may occur. Charissa Holley MD Y CANDY MAKER documented in this encounter Plan of Treatment Not on file documented as of this encounter Results * XR Foot Left 3 or More Views (01/27/2020 12:56 PM TAFFY CANDY MAKER) Anatomical Region Laterality Modality Lower Extremities, Foot Left Computed Radiography 01/27/2020 1:04 PM TAFFY CANDY MAKER Impressions 01/27/2020 1:04 PM TAFFY CANDY MAKER Healing revised left first tarsometatarsal joint arthrodesis. Electronically signed by: Mani Vilchis M.D. Narrative 01/27/2020 1:04 PM TAFFY CANDY MAKER EXAMINATION: Left foot 3 views HISTORY: Left [...] Primary Pain in soft tissues of limb Orthopedic aftercare Unspecified orthopedic aftercare Left foot pain Pain in soft tissues of limb documented in this encounter Discontinued Medications Medication Sig Discontinue Reason Start Date End Da te dexAMETHasone (DECADRON) 2 mg tabletIndications:Pneumon ia due to COVID-19 virus 2 tab BID x 3 days, 1 tab BID x 3 days, 1 tab qd x2 days, 1/2 tab qd x 2 days Therapy completed 12/21/2019 01/27/2020 nystatin 100,000 unit/mL suspension Take 5 mL (500,000 Units total) by mouth 4 (four) times a day Swish in mouth and spit out. Therapy completed 12/30/2019 01/27/2020 documented as of this encounter Historical Medications * This list may reflect changes made after this encounter. Medication Sig Dispense Quantity Refills Last Filled Start D ate End Date famotidine (PEPCID) 20 mg tablet 12/22/2019 01/29/2020 added in this encounter Additional Health Concerns Infection Onset Date Last Indicated Resolved Time COVID: Recovered Comment:Added based on recent COVID infection. 01/02/2020 01/22/2020 05/01/2020 3:05 AM C DT documented as of this encounter Care Teams Welding Machine Operator Electroslag Relationship Specialty Start Date End Date Daily Cruz MD PCP - General Family Medicine 08/01/19 03/03/21 documented as of this encounter
--- OUTSIDE RECORDS SUMMARY | 2024-02-21 19:39 | XMS_ITS | Encounter Summary ---
Author Organization [facility] Address [address] [facility] [place] [address] Care Team Providers Care Copping Machine Operator Name Role Phone Daily Cruz MD Primary Care Provider [phone] [phone] Encounter Details Date Type Department Care Team (Late st Contact Info) Description 07/28/2020 11:00 AM CDT Office Visit [facility] Respiratory Clinic [address] [place] [phone] Emeli Celeste NP [address] [place], [place] [id number] Acute non-recurrent sinusitis of other sinus (Primary Dx) Social History Tobacco Use Types [...] on file Legal Sex Female 3:37 PM WELFARE INTERVIEWER Gender Identity Female 03/02/2020 4:27 PM WELFARE INTERVIEWER Sexual Orientation Straight 07/10/2019 11 :13 PM CDT documented as of this encounter Last Filed Vital Signs Vital Sign Reading Time Taken Comments Blood Pressure - - Pulse 85 07/28/2020 11:08 AM CDT Temperature 37.2 ??C (98.9 ??F) 07/28/2020 11:08 AM C DT Respiratory Rate - - Oxygen Saturation 96% 07/28/2020 11:08 AM CDT Inhaled Oxygen Concentration - - Weight - - Height - - Body Mass Index - - documented in this encounter Ordered Prescriptions Prescription Sig Dispense Quantity Refills Last Filled Start Date End Date amoxicillin-clavul anate (AUGMENTIN) 875-125 mg per tabletIndications: Acute non-recurrent sinusitis of other sinus Take 1 tablet by mouth 2 (two) times a day for 10 days 20 tablet 07/28/2020 08/07/2020 documented in this encounter Progress Notes * Emeli Celeste, EVP AND CHIEF OPERATING OFFICER - 07/28/2020 11:00 AM CDT Images from the original note were not included. [facility] (Covid-19) Visit date: 07/28/2020 Assessment and Recommendations: Patient does not meet both criteria of COVID-19 specific symptoms and high risk comorbidities COVID testing indicated No Diagnoses and all orders for this visit: Acute non-recurrent sinusitis of other sinus (Primary) - amoxicillin-clavulanate (AUGMENTIN) 875-125 mg per tablet; Take 1 tablet by mouth 2 (two) times aday for 10 days Antibiotics: as prescribed Additional guidance: 1. Recommend Over the counter symptomatic treatment or seek PCP's advise or ER depending on worsening degree of symptoms. 2. [facility] or See patientinstructions for test center selection. Discussed symptomatic relief of symptoms Discussed need to return to ER for further evaluation including worsening fevers, shortness of breath, of other concerning symptoms Advised to rest and stay adequately hydrated Patient presents to clinic for assessment of: Focused HPI: Patient presents to the [facility] with c/o headache, right ear pain, right sided sinus pressure/pain, pain/bleeding in gums and right side facial swelling x 3 days. Patient states that she was evaluated byher dentist first whom stated that there was no signs of oral infection - but concerned about possible sinus infection. Patient states that she has had severe sinusitis in the past without preceding n yaakov congestion/drainage. Endorses right ear pain, and pain in the right side of her throat with swallowing. Denies fever/chills. Patient was positive for Covid last year, states that she has had a lingering dry cough since that diagnosis. Denies any known sick exposures. Patient ID: Jud Leung is a 29 y.o. female followed by Daily Cruz MD Jud Leung contacted the Respiratory Clinic today for Respiratory/Covid-19 evaluation. The patient-submitted questionnaire was assessed for pertinent information and the patient's problem list, medication list, and allergies were reviewed. The chart was updated to identify any changes in these areas. Symptoms: Dry Cough, Sore throat and right ear pain, right side headache/sinus pressure, right sidegum pain Duration: 3day(s) Plus High Risk Comorbidity : none Exposure risk (travel or close contact): No Past Medical History: Diagnosis Date ??? ADHD [...] graft - Left ??? LAPAROSCOPIC ENDOMETRIOSIS FULGURATION 2018 ??? TONSILECTOMY, ADENOIDECTOMY, BILATERAL MYRINGOTOMY AND TUBES ??? WISDOM TOOTH EXTRACTION Allergies Allergen Reactions ??? Acetazolamide Swollen tongue Tongue and lip swelling Sob Rash ??? Dihydroergotamine Shortness of breath Severe pressure and tightness in chest Severe pressure and tightness in chest Anxiety, Shortness of Breath/Wheezing (Shortness of breath) Bradycardia and HTN ??? Hydrochlorothiazide Swollen tongue ??? Zqmvkpvkrvm-Phmtzptz-Bfaxkhivy Swelling Tongue swelling, blistering ??? Nickel Hives, Itching, Rash and Swelling [...] Comment: Maybe a drink every few months Family History Problem Relation Age of Onset [...] Depression Sister ??? Anesthesia problems Neg Hx Immunization History Administered Date(s) Administered ??? DTP / HiB 1991, 03/05/1992, 05/14/1992 ??? DTaP 12/31/1992, 10/02/1997 ??? HPV, Quadrivalent 11/27/2008, 04/17/2009 ??? HPV, Unspecified 10/08/2008, 11/27/2008, 04/17/2009 ??? Hib (HbOC) 12/31/1992 ??? Influenza, Split 11/27/2008 ??? Influenza, Trivalent, Intramuscular 04/21/2016 ??? Influenza, Unspecified 11/13/2018 ??? MMR 12/31/1992, 10/02/1997 ??? OPV 1991, 03/05/1992, 12/31/1992, 10/02/1997 Social History Tobacco Use Smoking Status Never Smoker Smokeless Tobacco Never Used Current Medications: Outpatient Encounter Medications as of 07/28/2020 Medication Sig Dispense Refill ??? albuterol HFA (Ventolin HFA) 90 mcg/actuation inhaler Inhale 2 puffs every 6 (six) hours as needed ??? amoxicillin-clavulanate (AUGMENTIN) 875-125 mg per tablet Take 1 tablet by mouth 2 (two) times a day for 10 days 20 tablet 0 ??? budesonide-formoteroL (Symbicort) 160-4.5 mcg/actuation inhaler Inhale 2 puffs 2 (two) times a day Rinse mouth with water after use. Do not swallow. 1 Inhaler 2 ??? bumetanide (BUMEX) 1 mg tablet TAKE 1 TABLET BY MOUTH TWICE A DAY 60 tablet 2 ??? cariprazine (Vraylar) 3 mg capsule capsule Take 1 capsule (3 mg total) by mouth daily 30 capsule 5 ??? diclofenac DR (VOLTAREN) 75 mg EC tablet TAKE 1 TABLET BY MOUTH TWICE A DAY NEEDED FOR PAIN 60 tablet 1 ??? fluticasone propionate (FLONASE) 50 mcg/actuation nasal spray Administer 2 sprays into each nostril daily 16 g 0 ??? galcanezumab-gnlm (Emgality Pen) 120 mg/mL pen injector Inject 120 mg under the skin every 30 (thirty) days 1 Syringe 5 ??? levocetirizine (XYZAL) 5 mg tablet Take 1 tablet (5 mg total) by mouth daily 30 tablet 0 ??? levonorgestreL (KYLEENA) IUD 1 each by intrauterine route once ??? SUMAtriptan (IMITREX) 50 mg tablet TAKE 1 TABLET BY MOUTH ONCE NEEDED FOR MIGRAINE. MAY REPEAT DOSE AFTER 2 HOURS 9 tablet 0 ??? ubrogepant (Ubrelvy) 50 mg tablet Take 1 tablet (50 mg total) by mouth once as needed for migraine May repeat dose once in 2 hours if no relief. Do not exceed 2 doses in 24 hours. 10 tablet 0 No facility-administered encounter medications on file as of 07/28/2020. Review of Systems: Please see HPI. Review of Systems Constitutional: Negative for chills and fever. HENT: Positive for ear pain, facial swelling, sinus pressure, sinus pain and sore throat. Negative for congestion, ear discharge, postnasal drip and rhinorrhea. Eyes: Negative for redness. Respiratory: Positive for cough. Negative for shortness of breath. Cardiovascular: Negative for chest pain and leg swelling. Gastrointestinal: Negative for diarrhea, nausea and vomiting. Genitourinary: Negative for dysuria and flank pain. Musculoskeletal: Negative for back pain and neck stiffness. Skin: Negative for rash. Neurological: Positive for headaches. Negative for dizziness, syncope, weakness and light-headedness. Psychiatric/Behavioral: The patient is not nervous/anxious. Physical exam Vitals: 07/28/20 1108 Pulse: 85 Temp: 37.2 ??C (98.9 ??F) TempSrc: Temporal SpO2: 96% General appearance: In obvious distress No Neuro: Alert Yes Physical Exam Vitals and nursing note reviewed. Constitutional: Appearance: Normal appearance. HENT: Head: Normocephalic and atraumatic. Right Ear: External ear normal. Tympanic membrane is not injected or erythematous. Left Ear: External ear normal. Tympanic membrane is not injected or erythematous. Nose: Right Sinus: Maxillary sinus tenderness and frontal sinus tenderness present. Left Sinus: No maxillary sinus tenderness or frontal sinus tenderness. Mouth/Throat: Mouth: Mucous membranes are moist. Pharynx: Oropharynx is clear. No oropharyngeal exudate or posterior oropharyngeal erythema. Eyes: Conjunctiva/sclera: Conjunctivae normal. Cardiovascular: Rate and Rhythm: Normal rate and regular rhythm. Heart sounds: Normal heart sounds. Pulmonary: Effort: Pulmonary effort is normal. No respiratory distress. Breath sounds: Normal breath sounds. No stridor. No wheezing, rhonchi or rales. Abdominal: General: There is no distension. Musculoskeletal: General: Normal range of motion. Cervical back: Normal range of motion and neck supple. Tenderness present. Lymphadenopathy: Cervical: Cervical adenopathy present. Skin: Findings: No rash. Neurological: General: No focal deficit present. Mental Status: She is alert and oriented to person, place, and time. Psychiatric: Mood and Affect: Mood normal. Behavior: Behavior normal. Discussed diagnosis of acute sinusitis with patient at length. Low suspicion for Covid at this time given symptom profile and previous diagnosis of Covid (Dec 2019). Provided prescription for Augmentin for antimicrobial coverage, advised to take as directed to completion. May use OTC Tylenol/Ibuprofen as needed for any pain. Encouraged increased fluid intake (primarily water). To closely monitor symptoms at home. May f/u with [facility] as needed. To f/u promptly if symptoms worsen or fail to improve. To f/u in ER if symptoms become severe or if any other concerning symptoms develop. Patient verbalized understanding. The patient was given information regarding any new medication(s) prescribed, if applicable, as well as any [id number] remedies. she was given instructions regarding follow up and timeframe if symptoms worsen or don???t improve. These instructions were included in the [facility] message reply tothe patient. Patient Instructions were included in the message reply to patient. Emeli Celeste NP documented in this encounter Plan of Treatment Not on file documented as of this encounter Visit Diagnoses Diagnosis Acute non-recurrent sinusitis of other sinus- Primary documented in this encounter Care Teams Copping Machine Operator Relationship Specialty Start Date End Date Daily Cruz MD PCP - General Family Medicine 08/01/19 03/03/21 documented as of this encounter
--- OUTSIDE RECORDS SUMMARY | 2024-02-21 19:39 | XMS_ITS | Encounter Summary ---
Author Organization [facility] Address [address] [place] [address] Care Team Providers Care Major League Baseball Player Name Role Phone Daily Cruz MD Primary Care Provider [phone] [phone] Reason for Visit * Reason Onset Date Comments samples 05/27/2020 Encounter Details Date Type Department Care Team (Late st Contact Info) Description 05/27/2020 Telephone [facility] Family Medicine [address] [facility] [place] [address] Daily Cruz MD [address] [place] [phone] samples Social History Tobacco Use Types Packs/Day Years [...] on file Legal Sex Female 3:37 PM CIRCUIT WALKER Gender Identity Female 03/02/2020 4:27 PM CIRCUIT WALKER Sexual Orientation Straight 07/10/2019 11 :13 PM CDT documented as of this encounter Miscellaneous Notes * Telephone Encounter - Stefanie Best MA - 05/27/2020 4:32 PM CDT lvm stating we have samples of ubrelvy 100 mg lot [id number] exp 11/2020 documented in this encounter Plan of Treatment Not on file documented as of this encounter Visit Diagnoses Not on filedocumented in this encounter Care Teams Major League Baseball Player Relationship Specialty Start Date End Date Daily Cruz MD PCP - General Family Medicine 08/01/19 03/03/21 documented as of this encounter
--- OUTSIDE RECORDS SUMMARY | 2024-02-21 19:39 | XMS_ITS | Encounter Summary ---
Author Organization [facility] Address [address] [place] [address] Care Team Providers Care Benefits Representative Name Role Phone Daily Cruz MD Primary Care Provider [phone] [phone] Encounter Details Date Type Department Care Team (Late st Contact Info) Description 12/26/2019 8:15 AM SHIP CONSTRUCTION TEACHER Telemedicine [facility] Family Medicine [address] [place] [address] Daily Cruz MD [address] [place] [address] [address] [place] [address] Pneumonia due to COVID-19 virus (Primary Dx) Social History Tobacco Use Types [...] on file Legal Sex Female 3:37 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 Gender Identity Female 03/02/2020 4:27 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 Sexual Orientation Straight 07/10/2019 11 :13 PM CDT documented as of this encounter Last Filed Vital Signs Vital Sign Reading Time Taken Comments Blood Pressure - - Pulse 54 12/26/2019 8:23 AM SHIP CONSTRUCTION TEACHER Temperature 36.1 ??C (97 ??F) 12/26/2019 8:23 AM SHIP CONSTRUCTION TEACHER Respiratory Rate - - Oxygen Saturation 97% 12/26/2019 8:23 AM SHIP CONSTRUCTION TEACHER Inhaled Oxygen Concentration - - Weight 122.5 kg (270 lb 1 oz) 12/26/2019 8:23 AM SHIP CONSTRUCTION TEACHER Height 170.2 cm (5' 7.01 ) 12/26/2019 8:23 AM CS T Body Mass Index 42.29 12/26/2019 8:23 AM SHIP CONSTRUCTION TEACHER documented in this encounter Patient Instructions * Patient Instructions* Daily Cruz MD - 12/26/2019 8:15 AM SHIP CONSTRUCTION TEACHER Patient Education Albuterol (By breathing) Albuterol (yf-QFO-vyt-ol) Treats or prevents bronchospasm. Brand Name(s): AccuNeb, ProAir HFA, ProAir RespiClick, Proventil HFA, Ventolin HFA There may be other brand names for this medicine. When This Medicine Should Not Be Used: This medicine is not right for everyone. Do not use it if you had an allergic reaction to albuterolor milk proteins. How to Use This Medicine: Aerosol, Powder Under Pressure, Suspension, Solution, Powder ?? Your doctor will tell you how much medicine to use. Do not use more than directed. Ask your doctor or pharmacist if you have questions about how to use your inhaler, nebulizer, or medicine. ?? Solution: ?? You will use this medicine with an inhaler device called a nebulizer. The nebulizer turns the medicine into a fine mist that you breathe in through your mouth and to your lungs. Your caregiver will show you how to use your nebulizer. ?? Store unopened vials of this medicine at room temperature, away from heat and direct light. Do not freeze. An open vial of medicine must be used right away. ?? Aerosol inhaler: ?? Shake the inhaler well just before each use. Avoid spraying this medicine into your eyes. ?? Test spray in the air before using for the first time or if the inhaler has not been used for a while. ?? If you are supposed to use more than one puff, wait 1 to 2 minutes before inhaling the second puff. Repeat these steps for the next puff, starting with shaking the inhaler. ?? Clean the inhaler mouthpiece at least once a week with warm running water for 30 seconds. Let itair dry completely. ?? Store the canister at room temperature, away from heat and direct light. Do not freeze. Do not keep this medicine inside a car where it could be exposed to extreme heat or cold. Do not poke holes in the canister or throw it into a fire, even if the canister is empty. ?? ProAir?? Respiclick?? inhaler: ?? Make sure the cap is closed. Do not open the cap unless you are going to use the medicine. ?? Hold the inhaler upright. Open the cap fully until you hear a click. Your inhaler is now ready to use. ?? Close the cap firmly over the mouthpiece after each use. ?? Keep the inhaler clean and dry at all times. Do not wash or put any part of the inhaler in water. ?? To clean the mouthpiece, wipe it gently with a dry cloth or tissue. ?? Keep the medicine in the foil pouch until you are ready to use it. Store at room temperature, away from heat and direct light. Do not freeze. ?? Read and follow the patient instructions that come with this medicine. Talk to your doctor or pharmacist if you have any questions. ?? Missed dose: Take a dose as soon as you remember. If it is almost time for your next dose, wait until then and take a regular dose. Do not take extra medicine to make up for a missed dose. Drugs and Foods to Avoid: Ask your doctor or pharmacist before using any other medicine, including lmda-iha-vhbdcpn medicines, vitamins, and herbal products. ?? Some foods and medicines can affect how albuterol works. Tell your doctor if you are using any of the following: ?? Digoxin ?? Beta-emilio medicine ?? Diuretic (water pill) ?? Medicine for depression or an MAO inhibitor within the past 2 weeks Warnings While Using This Medicine: ?? Tell your doctor if you are or , or if you have kidney disease, diabetes, heart disease, heart rhythm problems, high blood pressure, overactive thyroid, or a history of seizures. ?? This medicine may cause the following problems: ?? Paradoxical bronchospasm (increased trouble breathing right after use) ?? Low potassium levels in the blood ?? If you use a corticosteroid medicine to control your asthma, keep using it as instructed by yourdoctor. ?? Call your doctor if your symptoms do not improve or if they get worse. ?? If any of your asthma medicines do not seem to be working as well as usual, call your doctor right away. Do not change your doses or stop using your medicines without asking your doctor. ?? Your doctor will check your progress and the effects of this medicine at regular visits. Keep all appointments. ?? Keep all medicine out of the reach of children. Never share your medicine with anyone. Possible Side Effects While Using This Medicine: Call your doctor right away if you notice any of these side effects: ?? Allergic reaction: Itching or hives, swelling in your face or hands, swelling or tingling in your mouth or throat, chest tightness, trouble breathing ?? Dry mouth, increased thirst, muscle cramps, nausea, vomiting ?? Fast, pounding, or uneven heartbeat, chest pain ?? Lightheadedness, dizziness, or fainting ?? Trouble breathing, increased wheezing, cough, chest tightness If you notice these less serious side effects, talk with your doctor: ?? Cough, sore throat, runny or stuffy nose ?? Headache ?? Tremors, nervousness If you notice other side effects that you think are caused by this medicine, tell your doctor. Call your doctor for medical advice about side effects. You may report side effects to FDA at 4-783-XFL-7628 ?? 2017 [employer] Information is for End User's use only and may not be sold, redistributed or otherwise used for commercial purposes. The above information is an histologic aide only. It is not intended as medical advice for individual conditions or treatments. Talk to your doctor, nurse or pharmacist before following any medical regimen to see if it is safe and effective for you. CONSTRUCTION TEACHER documented in this encounter Progress Notes * Daily Cruz MD - 12/26/2019 8:15 AM CST Images from the original note were not included. Patient ID: Jud Leung is a 29 y.o. female. Visit Date: 12/26/2019 This was a telemedicine visit with Jud Leung alone which took place via real-time video connection with Zoom. During the visit, I was located in the office and the patient was located at home in the [facility]. The patient visit started at 8:22 and ended at 8:41. The patient has been informed that the [...] billed and/or responsible for any applicable copayments. Daily Cruz MD Chief Complaint covid pneumonia HPI Patient's symptoms from covid pneumonia got so bad she ended up In the ER because had got hypoxic and couldn't breath. Other than increasing her use of albuterol, nothing new was added and she was discharged from the ER. She reports since Monday she has had no further fevers and finally starting tofeel better, but still far from norm Current Outpatient Medications: ??? albuterol HFA (Ventolin HFA) 90 mcg/actuation inhaler, Inhale 2 puffs every 6 (six) hours as needed, Disp: , Rfl: ??? budesonide-formoteroL (Symbicort) 80-4.5 mcg/actuation inhaler, Inhale 2 puffs 2 (two) times a day Rinse mouth with water after use. Do not swallow., Disp: 1 Inhaler, Rfl: 0 ??? ciprofloxacin (CIPRO) 500 mg tablet, Take 1 tablet (500 mg total) by mouth 2 (two) times a day for 10 days, Disp: 20 tablet, Rfl: 0 ??? dexAMETHasone (DECADRON) 2 mg tablet, 2 tab BID x 3 days, 1 tab BID x 3 days, 1 tab qd x2 days,1/2 tab qd x 2 days, Disp: 21 tablet, Rfl: 0 ??? fluticasone propionate (FLONASE) 50 mcg/actuation nasal spray, Administer 2 sprays into each nostril daily, Disp: 16 g, Rfl: 0 ??? guaiFENesin-codeine (GUAITUSS AC) liquid 100-10 mg/5 mL, Take 5-10 mL by mouth every 4 (four) hours as needed for cough, Disp: 120 mL, Rfl: 0 ??? levocetirizine (XYZAL) 5 mg tablet, Take 1 tablet (5 mg total) by mouth daily, Disp: 30 tablet,Rfl: 0 ??? levonorgestreL (KYLEENA) IUD, 1 each by intrauterine route once , Disp: , Rfl: Review of Systems Constitutional: Positive for fatigue. Negative for fever. HENT: Negative for congestion, ear pain, nosebleeds and rhinorrhea. Eyes: Negative for pain and redness. Respiratory: Positive for cough and shortness of breath. Cardiovascular: Negative for chest pain and palpitations. Gastrointestinal: Negative for abdominal pain and diarrhea. Endocrine: Negative for cold intolerance. Genitourinary: Negative for dysuria and frequency. Musculoskeletal: Negative for arthralgias and back pain. Neurological: Negative for dizziness and headaches. Hematological: Does not bruise/bleed easily. Psychiatric/Behavioral: Negative for behavioral problems and confusion. Pulse 54 Temp 36.1 ??C (97 ??F) Ht 170.2 cm (5' 7.01 ) Wt 122.5 kg (270 lb 1 oz) SpO2 97% BMI 42.29 kg/m?? Body mass index is 42.29 kg/m??. Physical Exam Constitutional: Appearance: Normal appearance. HENT: Head: Normocephalic and atraumatic. Nose: Nose normal. Eyes: Extraocular Movements: Extraocular movements intact. Conjunctiva/sclera: Conjunctivae normal. Neck: Musculoskeletal: Normal range of motion. Pulmonary: Effort: Pulmonary effort is normal. Neurological: Mental Status: She is alert and oriented to person, place, and time. Psychiatric: Mood and Affect: Mood normal. Behavior: Behavior normal. Diagnoses and all orders for this visit: Pneumonia due to COVID-19 virus (Primary) Assessment & Plan: Is improving. Still SOB and cough easily. Continue to use symbicort and proventil Daily Cruz MD CONSTRUCTION TEACHER documented in this encounter Miscellaneous Notes * Assessment & Plan Note - Daily Cruz MD - 12/26/2019 8:41 AM SHIP CONSTRUCTION TEACHER Associated Problem(s): Pneumonia due to COVID-19 virus (Deleted) Is improving. Still SOB and cough easily. Continue to use symbicort and proventil CONSTRUCTION TEACHER documented in this encounter Plan of Treatment Not on file documented as of this encounter Visit Diagnoses Diagnosis Pneumonia due to COVID-19 virus- Primary documented in this encounter Discontinued Medications Medication Sig Discontinue Reason Start Date End Da te HYDROcodone-chlorphenira mine ER (TUSSIONEX PENNKINETIC) 2-1.6 mg/mL ER suspensionIndications:Co ugh Take 5 mL by mouth every 12 (twelve) hours as needed for cough Alternate therapy 12/18/2019 12/26/2019 documented as of this encounter Additional Health Concerns Infection Onset Date Last Indicated Resolved Time COVID19 12/19/2019 12/19/2019 01/02/2020 3:07 AM SHIP CONSTRUCTION TEACHER documented as of this encounter Care Teams Benefits Representative Relationship Specialty Start Date End Date Daily Cruz MD PCP - General Family Medicine 08/01/19 03/03/21 documented as of this encounter
--- OUTSIDE RECORDS SUMMARY | 2024-02-21 19:39 | XMS_ITS | Encounter Summary ---
Author Organization [facility] Address [address] [place] [address] Care Team Providers Care Check Services Clerk Name Role Phone Jaime Dexter MD Primary Care Provider [phone] [phone] Reason for Referral * Cardiology (Routine) - Closed Specialty Diagnoses / Procedures Referred By Matt burk Referred To Contact Diagnoses Shortness of breath Fluid retention Procedures Transthoracic Echo Complete W Doppler/CF Jaime Dexter MD Phone: tel: fax: [address] [phone] Referral ID Status Reason Start Date Expiration Date Visits Re quested Visits Authorized [id number] Closed 07/19/2020 10/17/2020 1 1 Reason for Visit * Cardiology (Routine) - Closed Specialty Diagnoses / Procedures Referred By Matt burk Referred To Contact Diagnoses Shortness of breath Fluid retention Procedures Transthoracic Echo Complete W Doppler/CF Jaime Dexter MD Phone: tel: fax: [address] [phone] Referral ID Status Reason Start Date Expiration Date Visits Re quested Visits Authorized [id number] Closed 07/19/2020 10/17/2020 1 1 Encounter Details Date Type Department Care Team (Latest Contact Info) Description 07/29/2020 9:00 AM CDT - 07/29/2020 11:59 PM CDT Hospital Encounter [facility] Cardiac Testing [address] [place] [id number] Shortness of breath; Fluid retention Discharge Disposition: Discharge to home or self [...] on file 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 Gender Identity Female 03/02/2020 4:27 PM ASSEMBLER [employer] Sexual Orientation Straight 07/10/2019 11 :13 PM CDT documented as of this encounter Medications at Time of Discharge amoxicillin-clavu lanate (AUGMENTIN) 875-125 mg per tabletIndications :Acute non-recurrent sinusitis of other sinus Take 1 tablet by mouth 2 (two) times a day for 10 days 20 tablet 07/28/2020 1 albuterol HFA (PROVENTIL HFA,VENTOLIN HFA,PROAIR HFA) 90 [...] A DAY 60 tablet 2 06/12/2020 1 cariprazine (Vraylar) 3 mg capsule capsuleIndication s:Anxiety and depression Take 1 capsule (3 mg total) by mouth daily 30 capsule 5 04/22/[address] (VOLTAREN) 75 mg EC tabletIndications :Chronic pain of both knees,Chronic bilateral low back pain, unspecified whether sciatica present TAKE 1 TABLET BY MOUTH TWICE A DAY NEEDED FOR PAIN 60 tablet 1 06/30/2020 1 fluticasone propionate (FLONASE) 50 mcg/actuation nasal sprayIndications: Cough,Nasal congestion Administer 2 sprays into each nostril daily 16 g 12/18/2019 2 galcanezumab-gnlm (Emgality Pen) 120 mg/mL pen injectorIndicatio ns:Intractable chronic migraine without aura and with status migrainosus Inject 120 mg under the skin every 30 (thirty) days 1 Syringe 5 04/22/2020 1 levocetirizine (XYZAL) 5 mg tabletIndications :Cough,Nasal congestion Take 1 tablet (5 mg total) by mouth daily 30 tablet 12/18/2019 2 levonorgestreL (KYLEENA) IUD 1 each by intrauterine route once 3 SUMAtriptan (IMITREX) 50 mg tablet TAKE 1 TABLET BY MOUTH ONCE NEEDED FOR MIGRAINE. MAY REPEAT DOSE AFTER 2 HOURS 9 tablet 07/26/2020 1 ubrogepant (Ubrelvy) 50 mg tabletIndications :Chronic [...] Procedure Name Priority Date/Time Associated Diagnosis Comments TRANSTHORACIC ECHO (TTE) COMPLETE W DOPPLER/CF W CONTRAST Routine 07/29/2020 9:49 AM CDT Shortness of breath Fluid retention documented in this encounter Results * TRANSTHORACIC ECHO (TTE) COMPLETE W DOPPLER/CF W CONTRAST (07/29/2020 9:49 AM CDT) Anatomical Region Laterality Modality Ultrasound 07/29/2020 9:49 AM CDT Narrative 07/29/2020 5:17 PM CDT ? Adult Echocardiogram + ----- ---+ :Name: JUD THOMAS ?? Study Date: 07/29/2020 ?Status: MHE ?: : ?Patient Location: MHE CARD^^^MHEHeight: 67 in ?: : ?Weight: 270 lbBP: 119/76 mmHg: :: 1990 ? Gender: Female ?BSA: 2.3 m2 ?: :Reason For Study: SOB ?: :Ordering Physician: ?: :ISACC, JAIME ? : :Referring Physician: ? : :DAGOBERTO-ROSE, JAIME ? : :Performed By: Nesha ?: :Filiberto, NELDACS ? : + ----- ---+ Procedure A two-dimensional transthoracic echocardiogram with color flow and Doppler was performed. A contrast injection of Definity was performed to improve assessment of LV function. Lot No. [id number]. Technically difficult study secondary to comorbidities. Left [...] area: ? LVOT diam: 2.2 cm ? ED[facility] 78.8 ml 7.1 cm2 ? LVOT area: [...] :Name: JUD THOMAS Study Date: 07/29/2020 Status: MHE: : Patient [facility] C[facility]^^^MHEHeight: 67 in: : Weight: 270lbBP: [...] by: Chalino Evans MD 07/29/2020 05:17 PM Jaime Dexter MD CV ECHO PROCEDURES Final Result documented in this encounter Visit Diagnoses Diagnosis Shortness of breath Fluid retention Fluid overload documented in this encounter Administered Medications Inactive Administered Medications - up to 3 most recent administrations Medication Order MAR Action Action Date Dose Rate Site perflutren lipid (DEFINITY) 1.5 mL in sodium chloride 0.9% 10 mL syringe 1-10 mL, intravenous, Once in imaging, contrast, Starting on Mon07/29/20 at 0939, For 1 dose, Intra-Procedure (CV) Contrast Given 07/29/2020 10:50 AM CDT 2 mL Right Antecubital documented in this encounter Orders Medications Ordered That Gerhard ht Not Have Been Administered Count Last Ordered Date First Ordered Date perflutren lipid (DEFINITY) 1.5 mL in sodium chloride 0.9% 10 mL syringe 1 07/29/2020 documented in this encounter Care Teams Check Services Clerk Relationship Specialty Start Date End Date Jaime Dexter MD PCP - General Family Medicine 08/01/19 03/03/21 documented as of this encounter
--- OUTSIDE RECORDS SUMMARY | 2024-02-21 19:39 | XMS_ITS | Encounter Summary ---
Author Organization [facility] Address [address] [place] [address] Care Team Providers Care Metal Sash Setter Name Role Phone Daily Cruz MD Primary Care Provider [phone] [phone] Reason for Visit * Reason Onset Date Comments Prior Auth 05/21/2020 Viibryd Encounter Details Date Type Department Care Team (Late st Contact Info) Description 05/21/2020 Telephone [facility] Family Medicine [address] [place] [address] [address] [place] [address] Daily Cruz MD [address] [place] [id number] Prior Auth (Viibryd) Social History Tobacco Use Types Packs/Day Years [...] on file 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 * Telephone Encounter - Alexander Hancock MA - 05/26/2020 2:35 PM CDT They will cover Cymbalta 30 or 60mg, venlafaxcine 37.5 or 75mg up to 225 and the extend release. * Telephone Encounter - Jodi Mock MA - 05/22/2020 2:05 PM CDT PA was denied. Denial papers to Dr.Hilalys jesus. * Telephone Encounter - Jodi Mock MA - 05/21/2020 3:17 PM CDT PA is needed on Viibryd. Bhakta:[id number] PA was sent to plan on cover my meds. documented in this encounter Plan of Treatment Not on file documented as of this encounter Visit Diagnoses Not on filedocumented in this encounter Care Teams Metal Sash Setter Relationship Specialty Start Date End Date Daily Cruz MD PCP - General Family Medicine 08/01/19 03/03/21 documented as of this encounter
--- OUTSIDE RECORDS SUMMARY | 2024-02-21 19:39 | XMS_ITS | Encounter Summary ---
Author Organization [facility] Healthcare Address [address] [place] [address] Care Team Providers Care Sill Worker Name Role Phone Daily Cruz MD Primary Care Provider [phone] [phone] Reason for Referral * Diagnostic Imaging (Routine) - Closed Specialty Diagnoses / Procedures Referred By Matt burk Referred To Contact Diagnoses Acute pain of left knee Procedures MRI Knee Left WO Contrast Daily Cruz MD Phone: tel: fax: [address] [phone] Referral ID Status Reason Start Date Expiration Date Visits Re quested Visits Authorized [id number] Closed 04/15/2020 10/12/2020 1 1 * Diagnostic Imaging (Routine) - Closed Specialty Diagnoses / Procedures Referred By Matt burk Referred To Contact Diagnoses Right knee pain, unspecified chronicity Procedures MRI Knee Right WO Contrast Daily Cruz MD Phone: tel: fax: [address] [phone] Referral ID Status Reason Start Date Expiration Date Visits Re quested Visits Authorized [id number] Closed 04/15/2020 10/12/2020 1 1 Encounter Details Date Type Department Care Team (Late st Contact Info) Description 04/29/2020 5:07 PM CDT Hospital Encounter [facility] Daily Cruz MD [address] [address] Right knee pain, unspecified chronicity; Acute pain of left knee Social History Tobacco Use Types Packs/Day [...] file Legal Sex Female 3:37 PM PATIENT ACCOUNT LIAISON Gender Identity Female 03/02/2020 4:27 PM PATIENT ACCOUNT LIAISON Sexual Orientation Straight 07/10/2019 11 :13 PM [...] not swallow. 1 Inhaler 2 04/22/2020 2 cariprazine (Vraylar) 3 mg capsule capsuleIndication s:Anxiety and depression Take 1 capsule (3 mg total) by mouth daily 30 capsule 5 04/22/[address] (VOLTAREN) 75 mg EC tabletIndications :Chronic pain of both knees,Chronic bilateral low back pain, unspecified whether sciatica present Take 1 tablet (75 mg total) by mouth 2 (two) times a day as needed (pain) 60 tablet 04/22/2020 1 fluticasone propionate (FLONASE) 50 mcg/actuation nasal [...] route once 3 SUMAtriptan (IMITREX) 50 mg tabletIndications :Migraine Take 1 tablet (50 mg total) by mouth once as needed for migraine May repeat after 2 hours. 9 tablet 03/21/2020 1 documented as of this encounter Plan of Treatment Not on file documented as of this encounter Procedures Procedure Name Priority Date/Time Associated Diagnosis Comments MRI KNEE LEFT WO CONTRAST Schedule Routine, Read Routine (OP Routine) 04/29/2020 5:31 PM CDT Acute pain of left knee MRI KNEE RIGHT WO CONTRAST Schedule Routine, Read Routine (OP Routine) 04/29/2020 5:31 PM CDT Right knee pain, unspecified chronicity documented in this encounter Results * MRI Knee Left WO Contrast (04/29/2020 5:31 PM CDT) Anatomical Region Laterality Modality Lower Extremities Left Magnetic Reson ance 04/29/2020 9:17 PM CDT Narrative 04/29/2020 9:23 PM CDT Patient Name: JUD THOMAS ?Ordering Dr: Daily Cruz MD ?? D.O.B: 1990 ? Exam Date: 03/17/21 ?? 1731 ?? Age: 29 ?Sex: Female ? MR#: [id number] ?? Loc: ? RADIOLOGY REPORT ?? Order #[id number] ?? Magnetic Resonance Imaging ? MRI Knee Left WO Contrast ? Signed ?? EXAM DESCRIPTION: ?? MRI Knee Left WO Contrast ? REASON FOR STUDY: ?? Left knee pain ? TECHNIQUE: ??Multiplanar, multisequence MRI of the ??left knee was performed. ? COMPARISON: ?? Radiographs 02/28/2020 ? FINDINGS: ? In the medial compartment, the meniscus is intact. ??There is no focal ?? chondrosis or subchondral edema. ? In the lateral compartment, the meniscus is intact. ??There is no focal ?? chondrosis or subchondral edema. ? In the patellofemoral compartment, there is full-thickness fissuring of the ?? medial facet. ??There is matching chondrosis of the medial trochlea. ??There is ?? no subchondral edema. ? The cruciate and collateral ligaments are intact. ??The popliteus tendon is ?? normal. ??The extensor mechanism is normal. ??A physiologic amount of fluid is ?? present within the knee joint. ??No loose bodies are identified. ??There is mild ?? edema involving the pericruciate fat pad. ??Tiny Emerson cyst is present. ??There ?? is mild pretibial bursitis. ? IMPRESSION: ? 1. ??Mild left patellofemoral compartment chondrosis. ? 2. ??Intact left knee menisci, cruciate and collateral ligaments. ? 3. ??Mild edema involving the pericruciate fat pad, which can be associated ?? with pericruciate fat pad impingement. ? 4. ??Mild left pretibial bursitis. ? THIS IS AN ELECTRONICALLY VERIFIED FINAL REPORT ?? 04/29/2020 9:23 PM - Electronically signed by Jakub Denson ?? Jakub Denson ? MF ?? D: ??04/29/2020 9:23 PM ?? T: ? Report ID: [id number] ?? Reading Location: ??[id number] ? REPORT ELECTRONICALLY SIGNED IN OTHER VENDOR SYSTEM ?? Resulting Agency Comment O Procedure Note Jakub Denson MD - 04/29/2020 Patient Name: WILLIAMJUD Dr: Daily Cruz MD D.O.B: 1990 Exam Date: 04/29/201730 Age: 29 Sex: Female MR#: [id number] Loc: RADIOLOGY REPORT Order #[id number] Magnetic Resonance Imaging MRI Knee Left WO Contrast Signed EXAM DESCRIPTION: MRI Knee Left WO Contrast REASON FOR STUDY: Left knee pain TECHNIQUE: Multiplanar, multisequence MRI of the left knee wasperformed. COMPARISON: Radiographs 02/28/2020 FINDINGS: In the medial compartment, the meniscus is intact. There is no focal chondrosis or subchondral edema. In the lateral compartment, the meniscus is intact. There is no focal chondrosis or subchondral edema. In the patellofemoral compartment, there is full-thickness fissuring ofthe medial facet. There is matching chondrosis of the medial trochlea.There is no subchondral edema. The cruciate and collateral ligaments are intact. The popliteus tendonis normal. The extensor mechanism is normal. A physiologic amount of fluidis present within the knee joint. No loose bodies are identified. There ismild edema involving the pericruciate fat pad. Tiny Emerson cyst is present.There is mild pretibial bursitis. IMPRESSION: 1. Mild left patellofemoral compartment chondrosis. 2. Intact left knee menisci, cruciate and collateral ligaments. 3. Mild edema involving the pericruciate fat pad, which can beassociated with pericruciate fat pad impingement. 4. Mild left pretibial bursitis. THIS IS AN ELECTRONICALLY VERIFIED FINAL REPORT 04/29/2020 9:23 PM - Electronically signed by Jakub LINARES T: Report ID: [id number] Reading Location: [place] [address] REPORT ELECTRONICALLY SIGNED IN OTHER VENDOR SYSTEM Daily Cruz MD IMG MRI PROCEDURES Final Result * MRI Knee Right WO Contrast (04/29/2020 5:31 PM CDT) Anatomical Region Laterality Modality Lower Extremities Right Magnetic Reson ance 04/29/2020 9:10 PM CDT Narrative 04/29/2020 9:17 PM CDT Patient Name: JUD THOMAS ?Ordering Dr: Daily Cruz MD ?? D.O.B: 1990 ? Exam Date: // ?? 1731 ?? Age: 29 ?Sex: Female ? MR#: [id number] ?? Loc: ? RADIOLOGY REPORT ?? Order #[id number] ?? Magnetic Resonance Imaging ? MRI Knee Right WO Contrast ? Signed ?? EXAM DESCRIPTION: ?? MRI Knee Right WO Contrast ? REASON FOR STUDY: ?? Right knee pain ? TECHNIQUE: ??Multiplanar, multisequence MRI of the ??right knee was performed. ? COMPARISON: ?? 02/28/2020 ? FINDINGS: ? Medially, the meniscus is intact. ??There is no focal chondrosis or subchondral ?? edema. ? Laterally, the meniscus is intact. ??There is no focal chondrosis or ?? subchondral edema. ? In the patellofemoral compartment, there is deep partial thickness chondrosis ?? of the central patellar median ridge extending into the medial facet with ?? superimposed fissuring and chondral flap formation. ??There is no subchondral ?? edema. ? The cruciate and collateral ligaments are intact. ??The popliteus tendon is ?? normal. ??The extensor mechanism is normal. ??A physiologic amount of fluid is ?? present within the knee. ??No loose bodies are identified. ??There is mild edema ?? involving the superolateral aspect of Hoffa's fat pad. ??There is mild ?? superficial medial collateral ligament bursitis. ? IMPRESSION: ? 1. ??Mild right patellofemoral compartment chondrosis. ? 2. ??Intact right knee menisci, cruciate and collateral ligaments. ? 3. ??Mild edema involving the superolateral aspect of the right knee Hoffa's ?? fat pad, which can be associated with lateral femoral condyle patellar tendon ?? friction syndrome. ? 4. ??Mild right superficial medial collateral ligament bursitis. ? THIS IS AN ELECTRONICALLY VERIFIED FINAL REPORT ?? 04/29/2020 9:17 PM - Electronically signed by Jakub Denson ?? Jakub Denson ? MF ?? D: ??04/29/2020 9:17 PM ?? T: ? Report ID: [id number] ?? Reading Location: ??[id number] ? REPORT ELECTRONICALLY SIGNED IN OTHER VENDOR SYSTEM ?? Resulting Agency Comment O Procedure Note Jakub Denson MD - 04/29/2020 Patient Name: JUD THOMAS Dr: Daily Cruz MD D.O.B: 1990 Exam Date: 04/29/201730 Age: 29 Sex: Female MR#: [id number] Loc: RADIOLOGY REPORT Order #[id number] Magnetic Resonance Imaging MRI Knee Right WO Contrast Signed EXAM DESCRIPTION: MRI Knee Right WO Contrast REASON FOR STUDY: Right knee pain TECHNIQUE: Multiplanar, multisequence MRI of the right knee wasperformed. COMPARISON: 02/28/2020 FINDINGS: Medially, the meniscus is intact. There is no focal chondrosis orsubchondral edema. Laterally, the meniscus is intact. There is no focal chondrosis or subchondral edema. In the patellofemoral compartment, there is deep partial thicknesschondrosis of the central patellar median ridge extending into the medial facet with superimposed fissuring and chondral flap formation. There is nosubchondral edema. The cruciate and collateral ligaments are intact. The popliteus tendonis normal. The extensor mechanism is normal. A physiologic amount of fluidis present within the knee. No loose bodies are identified. There is mildedema involving the superolateral aspect of Hoffa's fat pad. There is mild superficial medial collateral ligament bursitis. IMPRESSION: 1. Mild right patellofemoral compartment chondrosis. 2. Intact right knee menisci, cruciate and collateral ligaments. 3. Mild edema involving the superolateral aspect of the right kneeHoffa's fat pad, which can be associated with lateral femoral condyle patellartendon friction syndrome. 4. Mild right superficial medial collateral ligament bursitis. THIS IS AN ELECTRONICALLY VERIFIED FINAL REPORT 04/29/2020 9:17 PM - Electronically signed by Jakub Denson T: Report ID: [id number] Reading Location: [place] [address] REPORT ELECTRONICALLY SIGNED IN OTHER VENDOR SYSTEM Daily Cruz MD IMG MRI PROCEDURES Final Result documented in this encounter Visit Diagnoses Diagnosis Right knee pain, unspecified chronicity Acute pain of left knee documented in this encounter Additional Health Concerns Infection Onset Date Last Indicated Resolved Time COVID: Recovered Comment:Added based on recent COVID infection. 01/02/2020 01/22/2020 05/01/2020 3:05 AM C DT documented as of this encounter Care Teams Sill Worker Relationship Specialty Start Date End Date Daily Cruz MD PCP - General Family Medicine 08/01/19 03/03/21 documented as of this encounter
--- OUTSIDE RECORDS SUMMARY | 2024-02-21 19:39 | XMS_ITS | Encounter Summary ---
Author Organization [facility] Address [address] [place] [address] Care Team Providers Care Heading And Priming Operator Name Role Phone Daily Cruz MD Primary Care Provider [phone] [phone] Reason for Visit * Reason Onset Date Comments Requesting Samples 09/09/2020 Encounter Details Date Type Department Care Team (Late st Contact Info) Description 09/09/[address] 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 Gender Identity Female 03/02/2020 4:27 PM INDUSTRIAL EQUIPMENT WIRER Sexual Orientation Straight 07/10/2019 11 :13 PM CDT documented as of this encounter Ordered Prescriptions Prescription Sig Dispense Quantity Refills Last Filled Start Date End Date galcanezumab-gnlm (Emgality Pen) 120 mg/mL pen injectorIndication s:Intractable chronic migraine without aura and with status migrainosus Inject 120 mg under the skin every 30 (thirty) days 1 mL 09/09/2020 10/21/2021 documented in this encounter Miscellaneous Notes * Telephone Encounter - Stefanie Best MA - 09/10/2020 4:26 PM CDT Pt aware that this will be addressed tomorrow. * Telephone Encounter - Daily Cruz MD - 09/10/2020 3:49 PM CDT Patient was seen in the ER today, will address at appointment tomorrow * Telephone Encounter - Ignacia Mckeon - 09/10/2020 8:20 AM CDT Patient called stating that her headaches are getting worse. Patient is waking up in the middle of the night getting sick from the pain. Patient stated that she will be going to the ER today. I informed patient to keep her zoom appt with Dr Calero tomorrow to f/u. * Telephone Encounter - Milagros Schaefer RN - 09/09/2020 4:54 PM CDT Called patient and she cannot get back to grape picker sample now as she has PT to get to at present. She started getting upset with me that it was only one sample and why was she not able to just walk inand get the sample whenever she wanted. States she was told that she could. Explained that there dev policy we have to follow. Informed that she needs to call before just showing up so that we can ma ke sure that we have it and get it documented according to policy. She wants to know what she can do RIGHT now for this GAGNON that is not going away and the imitrex and ubrelvy isn't helping. * Telephone Encounter - Milagros Schaefer RN - 09/09/2020 4:46 PM CDT Sample placed for grape picker * Telephone Encounter - Ignacia Mckeon - 09/09/2020 4:27 PM CDT Patient was told that she could grape picker samples of Emgality whenever. Patient is wanting to know ifwe have any samples. Patient states that she has had a headache for 3 weeks and nothing has helped.please call patient at earliest convenience if we have samples. documented in this encounter Plan of Treatment Not on file documented as of this encounter Visit Diagnoses Diagnosis Intractable chronic migraine without aura and with status migrainosus documented in this encounter Discontinued Medications Medication Sig Discontinue Reason Start Date End Da te galcanezumab-gnlm (Emgality Pen) 120 mg/mL pen injectorIndications:Intra ctable chronic migraine without aura and with status migrainosus Inject 120 mg under the skin every 30 (thirty) days Reorder 04/22/2020 09/09/2020 documented as of this encounter Care Teams Heading And Priming Operator Relationship Specialty Start Date End Date Daily Cruz MD PCP - General Family Medicine 08/01/19 03/03/21 documented as of this encounter
--- OUTSIDE RECORDS SUMMARY | 2024-02-21 19:39 | XMS_ITS | Encounter Summary ---
Author Organization [facility] Address [address] [place] [address] Care Team Providers Care Director Airport Operations Name Role Phone Daily Cruz MD Primary Care Provider [phone] [phone] Reason for Visit * Reason Onset Date Comments Prior Auth 02/11/2020 GALINA Coleman Encounter Details Date Type Department Care Team (Late st Contact Info) Description 02/11/2020 Telephone [facility] Family Medicine [address] [place] [address] [address] [place] [address] Daily Cruz MD [address] [place] [address] Prior Auth (GALINA Coleman) Social History Tobacco Use Types Packs/Day [...] on file Legal Sex Female 3:37 PM 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 TRY OFFAL WORKER * Telephone Encounter - Dia Huffman MA - 02/11/2020 11:44 AM POULTRY OFFAL WORKER Done on covermymeds and waiting on reply. TRY OFFAL WORKER * Telephone Encounter - Dia Huffman MA - 02/11/2020 11:02 AM POULTRY OFFAL WORKER PA on Ajovy 225mg/1.5mL for covermymeds [id number] TRY OFFAL WORKER documented in this encounter Plan of Treatment Not on file documented as of this encounter Visit Diagnoses Not on filedocumented in this encounter Additional Health Concerns Infection Onset Date Last Indicated Resolved Time COVID: Recovered Comment:Added based on recent COVID infection. 01/02/2020 01/22/2020 05/01/2020 3:05 AM C DT documented as of this encounter Care Teams Director Airport Operations Relationship Specialty Start Date End Date Daily Cruz MD PCP - General Family Medicine 08/01/19 03/03/21 documented as of this encounter
--- OUTSIDE RECORDS SUMMARY | 2024-02-21 19:39 | XMS_ITS | Encounter Summary ---
Author Organization [facility] Healthcare Address [address] [place] [address] Care Team Providers Care Pole Setter Name Role Phone Daily Cruz MD Primary Care Provider [phone] [phone] Reason for Referral * Diagnostic Imaging (Routine) - Closed Specialty Diagnoses / Procedures Referred By Contac t Referred To Contact Diagnoses Intractable chronic migraine without aura and with status migrainosus Pseudotumor cerebri Procedures MRI Brain WO Contrast Daily Cruz MD Phone: tel: fax: [address] [address] Referral ID Status Reason Start Date Expiration Date Visits Re quested Visits Authorized [id number] Closed 02/24/2020 08/22/2020 1 1 OL PSYCHOLOGICAL EXAMINER Encounter Details Date Type Department Care Team (Late st Contact Info) Description 02/28/2020 10:53 AM SCHOOL PSYCHOLOGICAL EXAMINER Hospital Encounter [facility] INTERIM Daily Cruz MD [address] [place] [address] Intractable chronic migraine without aura and with status migrainosus; Pseudotumor cerebri Social History Tobacco Use Types Packs/Day Years [...] file Legal Sex Female 3:37 PM SCHOOL PSYCHOLOGICAL EXAMINER Gender Identity Female 03/02/2020 4:27 PM SCHOOL PSYCHOLOGICAL EXAMINER Sexual Orientation Straight 07/10/2019 11 :13 PM CDT documented as of this encounter Medications at Time of Discharge albuterol HFA (PROVENTIL HFA,VENTOLIN HFA,PROAIR HFA) 90 mcg/actuation inhaler Inhale 2 puffs every 6 (six) hours as needed 2 fluticasone propionate (FLONASE) 50 mcg/actuation nasal sprayIndications: Cough,Nasal congestion Administer 2 sprays into each nostril daily 16 g 12/18/2019 2 fremanezumab-vfrm (Ajovy Autoinjector) 225 mg/1.5 mL auto-injectorIndi cations:Intractab le chronic migraine without aura and with status migrainosus Inject 225 mg under the skin every 30 (thirty) days 1 Syringe 2 01/29/2020 1 levocetirizine (XYZAL) 5 mg tabletIndications :Cough,Nasal congestion Take 1 tablet (5 mg total) by mouth daily 30 tablet 12/18/2019 2 levonorgestreL (KYLEENA) IUD 1 each by intrauterine route once 3 Symbicort 80-4.5 mcg/actuation inhalerIndication s:Cough INHALE 2 PUFFS 2 (TWO) TIMES A DAY RINSE MOUTH WITH WATER AFTER USE. DO NOT SWALLOW. 10.2 Inhaler 1 02/04/2020 1 documented as of this encounter Plan of Treatment Not on file documented as of this encounter Procedures Procedure Name Priority Date/Time Associated Diagnosis Comments MRI BRAIN WO CONTRAST Schedule Routine, Read Routine (OP Routine) 02/28/2020 11:03 AM SCHOOL PSYCHOLOGICAL EXAMINER Intractable chronic migraine without aura and with status migrainosus Pseudotumor cerebri documented in this encounter Results * MRI Brain WO Contrast (02/28/2020 11:03 AM SCHOOL PSYCHOLOGICAL EXAMINER) Anatomical Region Laterality Modality Head and Neck N/A Magnetic Resonan ce 02/28/2020 11:5 2 AM SCHOOL PSYCHOLOGICAL EXAMINER Narrative 02/28/2020 11:55 AM SCHOOL PSYCHOLOGICAL EXAMINER Patient Name: JUD THOMAS ?Ordering Dr: Daily Cruz MD ?? D.O.B: 1990 ? Exam Date: 02/28/20 ?? 1103 ?? Age: 29 ?Sex: Female ? MR#: [id number] ?? Loc: ? RADIOLOGY REPORT ?? Order #[id number] ?? Magnetic Resonance Imaging ? MRI Brain W/O Contrast ? Signed ?? EXAM DESCRIPTION: ?? MRI BRAIN W/O CONTRAST ? REASON FOR STUDY: ?? Chronic headaches, or worse since COVID-19 diagnosis ?? November 2019. ??No cancer history. ??No intracranial surgery. ? TECHNIQUE: ??Multiplanar imaging includes non-contrasted T1, T2, FLAIR, and ?? diffusion with ADC map sequences. Additional sequence(s) sensitive to blood ?? products. Images stored on PACS. ? COMPARISON: ?? None ? FINDINGS: ? CEREBRUM: ??No hemorrhage, edema, or mass effect. ? WHITE MATTER: ??Isolated punctate T2/FLAIR hyperintense lesion in the right ?? frontal subcortical white matter, nonspecific, though can be seen in setting ?? of chronic migraine headaches. ? POSTERIOR FOSSA: ??Brainstem and cerebellum are unremarkable. ? DIFFUSION IMAGING: ??No restricted diffusion to suggest acute/subacute ischemia ?? or infarct. ? EXTRAAXIAL SPACES: ??No hemorrhage. ??No mass. ? BRAIN VOLUME: ??Within normal limits for age. ? PITUITARY: ??Unremarkable. ? VASCULATURE: ??No flow disturbance evident. ? CALVARIUM: Unremarkable. ? ORBITS: ??No acute abnormality. ??Ocular lenses and globes normal in ?? conformation and position. ? PARANASAL SINUSES AND MASTOIDS: ??Small left maxillary sinus mucous retention ?? cyst. ??No fluid levels. ??Mastoid air cells well aerated. ? OTHER: ??No other significant finding. ? IMPRESSION: ?? No acute intracranial process with scattered chronic findings as ?? above. ? THIS IS AN ELECTRONICALLY VERIFIED FINAL REPORT ?? 02/28/2020 11:55 AM - Electronically signed by Ash Pimentel M.D. ?? Ash Pimentel M.D. ? SHAUN ?? D: ??02/28/2020 11:55 AM ?? T: ? Report ID: [id number] ?? Reading Location: ??[id number] ? REPORT ELECTRONICALLY SIGNED IN OTHER VENDOR SYSTEM ?? Resulting Agency Comment O Procedure Note Ash Pimentel MD - 02/28/2020 Patient Name: WILLIAMJUD Dr: Daily Cruz MD DSydneyO.B: 1990 Exam Date: 02/28/20 1103 Age: 29 Sex: Female MR#: [id number] Loc: RADIOLOGY REPORT Order #[id number] Magnetic Resonance Imaging MRI Brain W/O Contrast Signed EXAM DESCRIPTION: MRI BRAIN W/O CONTRAST REASON FOR STUDY: Chronic headaches, or worse since COVID-19 diagnosis November 2019. No cancer history. No intracranial surgery. TECHNIQUE: Multiplanar imaging includes non-contrasted T1, T2, FLAIR,and diffusion with ADC map sequences. Additional sequence(s) sensitive [employer] products. Images stored on PACS. COMPARISON: None FINDINGS: CEREBRUM: No hemorrhage, edema, or mass effect. WHITE MATTER: Isolated punctate T2/FLAIR hyperintense lesion in theright frontal subcortical white matter, nonspecific, though can be seen insetting of chronic migraine headaches. POSTERIOR FOSSA: Brainstem and cerebellum are unremarkable. DIFFUSION IMAGING: No restricted diffusion to suggest acute/subacuteischemia or infarct. EXTRAAXIAL SPACES: No hemorrhage. No mass. BRAIN VOLUME: Within normal limits for age. PITUITARY: Unremarkable. VASCULATURE: No flow disturbance evident. CALVARIUM: Unremarkable. ORBITS: No acute abnormality. Ocular lenses and globes normal in conformation and position. PARANASAL SINUSES AND MASTOIDS: Small left maxillary sinus mucousretention cyst. No fluid levels. Mastoid air cells well aerated. OTHER: No other significant finding. IMPRESSION: No acute intracranial process with scattered chronicfindings as above. THIS IS AN ELECTRONICALLY VERIFIED FINAL REPORT 02/28/2020 11:55 AM - Electronically signed by Ash DUNN T: Report ID: [id number] Reading Location: [place] [address] REPORT ELECTRONICALLY SIGNED IN OTHER VENDOR SYSTEM Daily Cruz MD IMG MRI PROCEDURES Final Result documented in this encounter Visit Diagnoses Diagnosis Intractable chronic migraine without aura and with status migrainosus Pseudotumor cerebri Benign intracranial hypertension documented in this encounter Additional Health Concerns Infection Onset Date Last Indicated Resolved Time COVID: Recovered Comment:Added based on recent COVID infection. 01/02/2020 01/22/2020 05/01/2020 3:05 AM C DT documented as of this encounter Care Teams Pole Setter Relationship Specialty Start Date End Date Daily Cruz MD PCP - General Family Medicine 08/01/19 03/03/21 documented as of this encounter
--- OUTSIDE RECORDS SUMMARY | 2024-02-21 19:39 | XMS_ITS | Encounter Summary ---
Author Organization [facility] Address [address] [place] [address] Care Team Providers Care Heel Sander Name Role Phone Daily Cruz MD Primary Care Provider [phone] Reason for Visit * Reason Onset Date Comments Prior Auth 02/24/2020 PA on Jared Encounter Details Date Type Department Care Team (Late st Contact Info) Description 02/24/2020 Telephone [facility] Family Medicine [address] [place] [address] [address] [place] [address] Daily Crzu MD [address] [place] [id number] Prior Auth (PA on Jared) Social History Tobacco Use Types Packs/Day Years [...] on file Legal Sex Female 3:37 PM HAT CHECKER Gender Identity Female 03/02/2020 4:27 PM HAT CHECKER Sexual Orientation Straight 07/10/2019 11 :13 PM CDT documented as of this encounter Miscellaneous Notes * Telephone Encounter - Dia Huffman MA - 02/26/2020 2:25 PM CST Done on covermymeds and waiting on reply. CHECKER * Telephone Encounter - Dia Huffman MA - 02/25/2020 2:02 PM CST [id number] CHECKER * Telephone Encounter - Dia Huffman MA - 02/24/2020 4:15 PM CST PA on Ajovy 225mg/1.5mL inject 225mg under the skin #2 ID# [id number] CHECKER documented in this encounter Plan of Treatment Not on file documented as of this encounter Visit Diagnoses Not on filedocumented in this encounter Additional Health Concerns Infection Onset Date Last Indicated Resolved Time COVID: Recovered Comment:Added based on recent COVID infection. 01/02/2020 01/22/2020 05/01/2020 3:05 AM C DT documented as of this encounter Care Teams Heel Sander Relationship Specialty Start Date End Date Daily Cruz MD PCP - General Family Medicine 08/01/19 03/03/21 documented as of this encounter
--- OUTSIDE RECORDS SUMMARY | 2024-02-21 19:39 | XMS_ITS | Encounter Summary ---
Author Organization [facility] Address [address] [place] [address] Care Team Providers Care Ship Captain Name Role Phone Daily Cruz MD Primary Care Provider [phone] Reason for Referral * Diagnostic Imaging (Routine) - Closed Specialty Diagnoses / Procedures Referred By Matt burk Referred To Contact Diagnoses Right hip pain Procedures XR Hip Right 2+ Vw Daily Cruz MD Phone: tel: fax: [address] [phone] Referral ID Status Reason Start Date Expiration Date Visits Re quested Visits Authorized [id number] Closed 02/24/2020 03/25/2021 1 1 CRUSHING DUST COLLECTOR * Diagnostic Imaging (Routine) - Closed Specialty Diagnoses / Procedures Referred By Matt burk Referred To Contact Diagnoses Right knee pain, unspecified chronicity Procedures XR Knee Right 4+ Vw Daily Cruz MD Phone: tel: fax: [address] [phone] Referral ID Status Reason Start Date Expiration Date Visits Re quested Visits Authorized [id number] Closed 02/24/2020 03/25/2021 1 1 CRUSHING DUST COLLECTOR * Diagnostic Imaging (Routine) - Closed Specialty Diagnoses / Procedures Referred By Matt burk Referred To Contact Diagnoses Left hip pain Procedures XR Hip Left 2+ Vw Daily Cruz MD Phone: tel: fax: [address] [phone] Referral ID Status Reason Start Date Expiration Date Visits Re quested Visits Authorized [id number] Closed 01/30/2020 02/28/2021 1 1 CRUSHING DUST COLLECTOR * Diagnostic Imaging (Routine) - Closed Specialty Diagnoses / Procedures Referred By Matt burk Referred To Contact Diagnoses Acute pain of left knee Procedures XR Knee Left 4+ Vw Daily Cruz MD Phone: tel: fax: [address] [phone] Referral ID Status Reason Start Date Expiration Date Visits Re quested Visits Authorized [id number] Closed 01/30/2020 02/28/2021 1 1 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 DUST COLLECTOR Encounter Details Date Type Department Care Team (Late st Contact Info) Description 02/28/2020 11:48 AM ORE CRUSHING D[employer] COLLECTOR Hospital Encounter [facility]IM Daily Cruz MD [address] [address] Acute pain of left knee; Left hip pain; Right knee pain, unspecified chronicity; Right hip pain Social History Tobacco Use Types Packs/Day [...] on file Legal Sex Female 3:37 PM ORE 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 DUST COLLECTOR Gender Identity Female 03/02/2020 4:27 PM ORE CRUSHING D[employer] COLLECTOR Sexual Orientation Straight 07/10/2019 11 :13 PM [...] Name Priority Date/Time Associated Diagnosis Comments XR LUMBAR SPINE AP LAT FLEX EX 02/28/2020 11:53 AM ORE CRUSHING D[employer] COLLECTOR XR KNEE RIGHT 4 OR MORE VIEWS Schedule Routine, Read Routine (OP Routine) 02/28/2020 11:52 AM ORE CR[employer]ING D[employer] COLLECTOR Right knee pain, unspecified chronicity XR KNEE LEFT 4 OR MORE VIEWS Schedule Routine, Read Routine (OP Routine) 02/28/2020 11:52 AM ORE CRUSHING DUST COLLECTOR Acute pain of left knee XR HIP RIGHT 2 OR 3 VIEWS Schedule Routine, Read Routine (OP Routine) 02/28/2020 11:52 AM ORE CRUSHING DUST COLLECTOR Right hip pain XR HIP LEFT 2 OR 3 VIEWS Schedule Routine, Read Routine (OP Routine) 02/28/2020 11:52 AM ORE CRUSHING DUST COLLECTOR Left hip pain documented in this encounter Results * XR Spine Lumbar Ap Lat Flex Ext min 4 Views (02/28/2020 11:53 AM ORE CRUSHING DUST COLLECTOR) Anatomical Region Laterality Modality L-spine N/A Radiographic Génesis ging 02/28/2020 12:4 5 PM ORE CRUSHING D[employer] COLLECTOR Narrative 02/28/2020 12:46 PM ORE CRUSHING D[employer] COLLECTOR Patient Name: JUD THOMAS ?Ordering Dr: Daily Cruz MD ?? D.O.B: 1990 ? Exam Date: 02/28/20 ?? 1153 ?? Age: 29 ?Sex: Female ? MR#: [id number] ?? Loc: ? RADIOLOGY REPORT ?? Order #[id number] ?? Radiology ? Lumbar Spine Min 4 Views ? Signed ?? EXAM DESCRIPTION: ?? Lumbar Spine Min 4 Views ? REASON FOR STUDY: ?? Lower back pain for 1-2 years ? TECHNIQUE: ?? Five radiographic views acquired of the lumbar spine. ? COMPARISON: ?? None ? FINDINGS: ? Straightening of the lumbar spine. ??Vertebral body heights are normal without ?? compression fracture. ??No significant degenerative disc disease. ??No ?? significant facet osteoarthritis. ? IMPRESSION: ? 1. ??No gross acute osseous abnormality of the lumbar spine ? THIS IS AN ELECTRONICALLY VERIFIED FINAL REPORT ?? 02/28/2020 12:46 PM - Electronically signed by Iker Stevenson M.D. ?? Iker Stevenson M.D. ? AG ?? D: ??02/28/2020 12:46 PM ?? T: ? Report ID: [id number] ?? Reading Location: ??[id number] ? REPORT ELECTRONICALLY SIGNED IN OTHER VENDOR SYSTEM ?? Resulting Agency Comment O Procedure Note Iker Stevenson MD - 02/28/2020 Patient Name: WILLIAMJUD Dr: Daily Cruz MD DSydneyO.B: 1990 Exam Date: 02/28/20 1153 Age: 29 Sex: Female MR#: [id number] Loc: RADIOLOGY REPORT Order #[id number] Radiology Lumbar Spine Min 4 Views Signed EXAM DESCRIPTION: Lumbar Spine Min 4 Views REASON FOR STUDY: Lower back pain for 1-2 years TECHNIQUE: Five radiographic views acquired of the lumbar spine. COMPARISON: None FINDINGS: Straightening of the lumbar spine. Vertebral body heights are normalwithout compression fracture. No significant degenerative disc disease. No significant facet osteoarthritis. IMPRESSION: 1. No gross acute osseous abnormality of the lumbar spine THIS IS AN ELECTRONICALLY VERIFIED FINAL REPORT 02/28/2020 12:46 PM - Electronically signed by Iker Stevenson M.D. T: Report ID: [id number] Reading Location: [id number] REPORT ELECTRONICALLY SIGNED IN OTHER VENDOR SYSTEM us Daily Cruz MD IMG XR PROCEDURES Final R esult * XR Hip Right 2+ Vw (02/28/2020 11:52 AM ORE CRUSHING DUST COLLECTOR) Anatomical Region Laterality Modality Lower Extremities, Hip, Pelvis Right R adiographic Imaging 02/28/2020 12:4 4 PM ORE CRUSHING DUST COLLECTOR Narrative 02/28/2020 12:45 PM ORE CRUSHING DUST COLLECTOR Patient Name: JUD THOMAS ?Ordering Dr: Daily Cruz MD ?? D.O.B: 1990 ? Exam Date: 02/28/20 ?? 1152 ?? Age: 29 ?Sex: Female ? MR#: [id number] ?? Loc: ? RADIOLOGY REPORT ?? Order #[id number] ?? Radiology ? Hip RT 2 View Min ? Signed ?? EXAM DESCRIPTION: ?Hip RT 2 View Min ? REASON FOR STUDY: ?? Right hip pain times several months ? TECHNIQUE: ?? AP and frog-leg/cross-table lateral view of the right hip. ? COMPARISON: ?? None ? FINDINGS: ? Normal bony alignment. ??No acute fracture seen. ??Joint space appears normal. ? IUD within the pelvis. ? IMPRESSION: ?? No acute osseous abnormality. ? THIS IS AN ELECTRONICALLY VERIFIED FINAL REPORT ?? 02/28/2020 12:45 PM - Electronically signed by Iker Stevenson M.D. ?? Iker Stevenson M.D. ? AG ?? D: ??02/28/2020 12:45 PM ?? T: ? Report ID: [id number] ?? Reading Location: ??[id number] ? REPORT ELECTRONICALLY SIGNED IN OTHER VENDOR SYSTEM ?? Resulting Agency Comment O Procedure Note Iker Stevenson MD - 02/28/2020 Patient Name: WILLIAMJUD Dr: Daily Cruz MD D.O.B: 1990 Exam Date: 02/28/20 1152 Age: 29 Sex: Female MR#: [id number] Loc: RADIOLOGY REPORT Order #[id number] Radiology Hip RT 2 View Min Signed EXAM DESCRIPTION: Hip RT 2 View Min REASON FOR STUDY: Right hip pain times several months TECHNIQUE: AP and frog-leg/cross-table lateral view of the right hip. COMPARISON: None FINDINGS: Normal bony alignment. No acute fracture seen. Joint space appearsnormal. IUD within the pelvis. IMPRESSION: No acute osseous abnormality. THIS IS AN ELECTRONICALLY VERIFIED FINAL REPORT 02/28/2020 12:45 PM - Electronically signed by Iker Stevenson M.D. AG T: Report ID: [id number] Reading Location: [id number] REPORT ELECTRONICALLY SIGNED IN OTHER VENDOR SYSTEM us Daily Cruz MD IMG XR PROCEDURES Final R esult * XR Knee Right 4+ Vw (02/28/2020 11:52 AM ORE CRUSHING DUST COLLECTOR) Anatomical Region Laterality Modality Lower Extremities, Knee Right Radiogra phic Imaging 02/28/2020 12:4 4 PM ORE CRUSHING DUST COLLECTOR Narrative 02/28/2020 12:44 PM ORE CRUSHING DUST COLLECTOR Patient Name: JUD THOMAS ?Ordering Dr: Daily Cruz MD ?? D.O.B: 1990 ? Exam Date: 02/28/20 ?? 1152 ?? Age: 29 ?Sex: Female ? MR#: [id number] ?? Loc: ? RADIOLOGY REPORT ?? Order #[id number] ?? Radiology ? Knee RT 4 View Min (Special) ? Signed ?? EXAM DESCRIPTION: ?Knee RT 4 View Min (Special) ? REASON FOR STUDY: ?? Bilateral knee pain x7 months ? TECHNIQUE: ?? 4 radiographic views acquired of the right knee. ? COMPARISON: ?? None ? FINDINGS: ? Normal bony alignment. ??No acute fracture seen. ??Joint spaces appear normal. ? No significant effusion. ? IMPRESSION: ?? No acute osseous abnormality. ? THIS IS AN ELECTRONICALLY VERIFIED FINAL REPORT ?? 02/28/2020 12:44 PM - Electronically signed by Iker Stevenson M.D. ?? Iker Stevenson M.D. ? AG ?? D: ??02/28/2020 12:44 PM ?? T: ? Report ID: [id number] ?? Reading Location: ??[id number] ? REPORT ELECTRONICALLY SIGNED IN OTHER VENDOR SYSTEM ?? Resulting Agency Comment O Procedure Note Iker Stevenson MD - 02/28/2020 Patient Name: JUD THOMAS Dr: Daily Cruz MD D.O.B: 1990 Exam Date: 02/28/20 1152 Age: 29 Sex: Female MR#: [id number] Loc: RADIOLOGY REPORT Order #[id number] Radiology Knee RT 4 View Min (Special) Signed EXAM DESCRIPTION: Knee RT 4 View Min (Special) REASON FOR STUDY: Bilateral knee pain x7 months TECHNIQUE: 4 radiographic views acquired of the right knee. COMPARISON: None FINDINGS: Normal bony alignment. No acute fracture seen. Joint spaces appearnormal. No significant effusion. IMPRESSION: No acute osseous abnormality. THIS IS AN ELECTRONICALLY VERIFIED FINAL REPORT 02/28/2020 12:44 PM - Electronically signed by Iker Stevenson M.D. T: Report ID: [id number] Reading Location: [id number] REPORT ELECTRONICALLY SIGNED IN OTHER VENDOR SYSTEM us Daily Cruz MD IMG XR PROCEDURES Final R esult * XR Hip Left 2+ Vw (02/28/2020 11:52 AM ORE CRUSHING DUST COLLECTOR) Anatomical Region Laterality Modality Lower Extremities, Hip, Pelvis Left R adiographic Imaging 02/28/2020 12:4 3 PM ORE CRUSHING DUST COLLECTOR Narrative 02/28/2020 12:44 PM ORE CRUSHING DUST COLLECTOR Patient Name: JUD THOMAS ?Ordering Dr: Daily Cruz MD ?? D.O.B: 1990 ? Exam Date: 02/28/20 ?? 1152 ?? Age: 29 ?Sex: Female ? MR#: [id number] ?? Loc: ? RADIOLOGY REPORT ?? Order #[id number] ?? Radiology ? Hip LT 2 View Min ? Signed ?? EXAM DESCRIPTION: ?? Hip LT 2 View Min ? REASON FOR STUDY: ?? Bilateral hip pain x7 months ? TECHNIQUE: ?? AP and frog-leg/cross-table lateral view of the left hip. ? COMPARISON: ?? None ? FINDINGS: ? Normal bony alignment. ??No acute fracture seen. ??Joint spaces appear normal. ? IUD within the pelvis. ? IMPRESSION: ?? No acute osseous abnormality. ? THIS IS AN ELECTRONICALLY VERIFIED FINAL REPORT ?? 02/28/2020 12:44 PM - Electronically signed by Iker Stevenson M.D. ?? Iker Stevenson M.D. ? AG ?? D: ??02/28/2020 12:44 PM ?? T: ? Report ID: [id number] ?? Reading Location: ??[id number] ? REPORT ELECTRONICALLY SIGNED IN OTHER VENDOR SYSTEM ?? Resulting Agency Comment O Procedure Note Iker Stevenson MD - 02/28/2020 Patient Name: JUD THOMAS Dr: Daily Cruz MD D.O.B: 1990 Exam Date: 02/28/20 1152 Age: 29 Sex: Female MR#: [id number] Loc: RADIOLOGY REPORT Order #[id number] Radiology Hip LT 2 View Min Signed EXAM DESCRIPTION: Hip LT 2 View Min REASON FOR STUDY: Bilateral hip pain x7 months TECHNIQUE: AP and frog-leg/cross-table lateral view of the left hip. COMPARISON: None FINDINGS: Normal bony alignment. No acute fracture seen. Joint spaces appearnormal. IUD within the pelvis. IMPRESSION: No acute osseous abnormality. THIS IS AN ELECTRONICALLY VERIFIED FINAL REPORT 02/28/2020 12:44 PM - Electronically signed by Iker Stevenson M.D. AG T: Report ID: [id number] Reading Location: [id number] REPORT ELECTRONICALLY SIGNED IN OTHER VENDOR SYSTEM us Daily Cruz MD IMG XR PROCEDURES Final R esult * XR Knee Left 4+ Vw (02/28/2020 11:52 AM ORE [employer]ING D[employer] COLLECTOR) Anatomical Region Laterality Modality Lower Extremities, Knee Left Radiogra phic Imaging 02/28/2020 12:4 2 PM ORE CR[employer]ING DUST COLLECTOR Narrative 02/28/2020 12:43 PM [employer]RE CR[employer]ING DUST COLLECTOR Patient Name: JUD THOMAS ?Ordering Dr: Daily Cruz MD ?? D.O.B: 1990 ? Exam Date: /15/21 ?? 1152 ?? Age: 29 ?Sex: Female ? MR#: [id number] ?? Loc: ? RADIOLOGY REPORT ?? Order #[id number] ?? Radiology ? Knee LT 4 View Min (Special) ? Signed ?? EXAM DESCRIPTION: ? Knee LT 4 View Min (Special) ? REASON FOR STUDY: ?? Bilateral knee pain x7 months ? TECHNIQUE: ?? 4 radiographic views acquired of the left knee. ? COMPARISON: ?? None ? FINDINGS: ? Normal bony alignment. ??No acute fracture seen. ??Joint spaces appear normal. ? No significant effusion. ? IMPRESSION: ?? No acute osseous abnormality. ? THIS IS AN ELECTRONICALLY VERIFIED FINAL REPORT ?? 02/28/2020 12:43 PM - Electronically signed by Iker Stevenson M.D. ?? Iker Stevenson M.D. ? AG ?? D: ??02/28/2020 12:43 PM ?? T: ? Report ID: [id number] ?? Reading Location: ??[id number] ? REPORT ELECTRONICALLY SIGNED IN OTHER VENDOR SYSTEM ?? Resulting Agency Comment O Procedure Note Iker Stevenson MD - 02/28/2020 Patient Name: WILLIAMJUD Dr: Daily Cruz MD DSydneyO.B: 1990 Exam Date: 02/28/20 115 Age: 29 Sex: Female MR#: [id number] Loc: RADIOLOGY REPORT Order #[id number] Radiology Knee LT 4 View Min (Special) Signed EXAM DESCRIPTION: Knee LT 4 View Min (Special) REASON FOR STUDY: Bilateral knee pain x7 months TECHNIQUE: 4 radiographic views acquired of the left knee. COMPARISON: None FINDINGS: Normal bony alignment. No acute fracture seen. Joint spaces appearnormal. No significant effusion. IMPRESSION: No acute osseous abnormality. THIS IS AN ELECTRONICALLY VERIFIED FINAL REPORT 02/28/2020 12:43 PM - Electronically signed by Iker Stevenson M.D. T: Report ID: [id number] Reading Location: [id number] REPORT ELECTRONICALLY SIGNED IN OTHER VENDOR SYSTEM Daily Cruz MD IMG XR PROCEDURES Final R esult documented in this encounter Visit Diagnoses Diagnosis Acute pain of left knee Left hip pain Pain in joint, pelvic region and thigh Right knee pain, unspecified chronicity Right hip pain Pain in joint, pelvic region and thigh documented in this encounter Additional Health Concerns Infection Onset Date Last Indicated Resolved Time COVID: Recovered Comment:Added based on recent COVID infection. 01/02/2020 01/22/2020 05/01/2020 3:05 AM C DT documented as of this encounter Care Teams Ship Captain Relationship Specialty Start Date End Date Daily Cruz MD PCP - General Family Medicine 08/01/19 03/03/21 documented as of this encounter
--- OUTSIDE RECORDS SUMMARY | 2024-02-21 19:39 | XMS_ITS | Encounter Summary ---
Author Organization [facility] Address [address] [place] [address] Care Team Providers Care Opener Name Role Phone Daily Cruz MD Primary Care Provider [phone] Encounter Details Date Type Department Care Team (Late st Contact Info) Description 12/21/2019 8:30 AM EYE TECHNICIAN Telemedicine [facility] Family Medicine [address] [place] [address] Daily Cruz MD [address] [place] [address] [address] [place] [address] Pneumonia due to COVID-19 virus [...] on file Legal Sex Female 3:37 PM EYE TECHNICIAN Gender Identity Female 03/02/2020 4:27 PM EYE TECHNICIAN Sexual Orientation Straight 07/10/2019 11 :13 PM CDT documented as of this encounter Last Filed Vital Signs Vital Sign Reading Time Taken Comments Blood Pressure - - Pulse 91 12/21/2019 8:33 AM EYE TECHNICIAN Temperature 38.3 ??C (101 ??F) 12/21/2019 8:33 AM EYE TECHNICIAN Respiratory Rate - - Oxygen Saturation - - Inhaled Oxygen Concentration - - Weight 122.5 kg (270 lb) 12/21/2019 8:33 AM EYE TECHNICIAN Height 170.2 cm (5' 7.01 ) 12/21/2019 8:33 AM CS T Body Mass Index 42.28 12/21/2019 8:33 AM EYE TECHNICIAN documented in this encounter Patient Instructions * Patient Instructions* Daily Cruz MD - 12/21/2019 8:30 AM EYE TECHNICIAN Patient Education Dexamethasone (By mouth) Dexamethasone ([id number]-r-[id number]-a-sone) Treats symptoms of several diseases and conditions. This medicine is a corticosteroid. Brand Name(s): Cushings Syndrome Diagnostic, DexPak, DexPak 10 Day TaperPak, DexPak 13 Day TaperPak, DexPak 6 Day TaperPak, Dexamethasone Intensol, LoCort, ZonaCort There may be other brand names for this medicine. When This Medicine Should Not Be Used: This medicine is not right for everyone. Do not use it if you had an allergic reaction to dexamethasone, or if you have a fungal infection. How to Use This Medicine: Liquid, Tablet ?? Take your medicine as directed. Your dose may need to be changed several times to find what works best for you. ?? It is best to take this medicine with food or milk. ?? Oral liquid: Measure the oral liquid medicine with a marked measuring spoon, oral syringe, or medicine cup. ?? Missed dose: ?? If your schedule is one dose every other day and you cannot use the missed dose until late in the day, wait until the next morning to use your medicine. Then skip a day and go back to your regularschedule. ?? If your schedule is one dose every day, use the missed dose as soon as you can. Then go back to your regular schedule. ?? If your schedule is more than one dose every day, use the missed dose as soon as you can. If it is almost time for your next dose, use two doses at that time. Then go back to your regular schedule. ?? Store the medicine in a closed container at room temperature, away from heat, moisture, and direct light. Drugs and Foods to Avoid: Ask your doctor or pharmacist before using any other medicine, including pkxw-hbm-hawtout medicines, vitamins, and herbal products. ?? Some foods and medicines can affect how dexamethasone works. Tell your doctor if you are using any of the following: ?? Aminoglutethimide, amphotericin B, carbamazepine, cholestyramine, cyclosporine, digoxin, indinavir, indomethacin, ketoconazole, phenobarbital, phenytoin, rifampin, or thalidomide ?? Antibiotic (including azithromycin, clarithromycin, erythromycin) ?? control pills ?? Blood thinner (including warfarin) ?? Diuretic (water pill) ?? Insulin and other diabetes medicine ?? NSAID pain or arthritis medicine (including aspirin, celecoxib, diclofenac, naproxen) ?? Potassium supplement ?? Do not drink alcohol while you are using this medicine. ?? This medicine may interfere with vaccines. Ask your doctor before you get a flu shot or any other vaccines. Warnings While Using This Medicine: ?? Tell your doctor if you are or , or if you have kidney problems, liver disease, diabetes, glaucoma, herpes infection of the eye, allergies, myasthenia gravis, osteoporosis, stomach or bowel problems, or thyroid problems. Tell your doctor if you have congestive heart failure, high blood pressure, or a recent heart attack. Tell your doctor if you have any type of infection or a history of depression or mental problems. ?? This medicine may cause the following problems: ?? High blood pressure, retaining water, changes in salt or potassium levels in your body ?? Cataracts or glaucoma (with long-term use) ?? Bone loss (with long-term use) ?? Mood or behavior changes ?? Slow growth in children (with long-term use) ?? Do not stop using this medicine suddenly. Your doctor will need to slowly decrease your dose before you stop it completely. ?? This medicine could cause you to get infections more easily. Tell your doctor right away if you are exposed to chicken pox, measles, or any other serious infection. Tell your doctor if you had a serious infection in the past, such as tuberculosis. ?? Tell your doctor about any extra stress or anxiety in your life. Your dose might need to be changed for a short time. ?? Make sure any doctor or dentist who treats you knows that you are using this medicine. ?? Your doctor will check your progress [...] or throat, chest tightness, trouble breathing ?? Changes in vision, trouble seeing, eye pain ?? Dark freckles, skin changes, coldness, weakness, tiredness, weight loss ?? Depression, unusual thoughts, feelings, or behaviors, trouble sleeping ?? Fast or slow, pounding heartbeat ?? Fever, chills, cough, sore throat, body aches ?? Rapid weight gain, swelling in your hands, ankles, or feet ?? Severe stomach pain, nausea, vomiting, or red or black stools ?? Trouble breathing ?? Trouble urinating ?? Worsened joint pain, swelling, or stiffness If you notice these less serious side effects, talk with your doctor: ?? Round, puffy face ?? Weight gain around your neck, upper back, breast, face, or waist If you notice other side effects that you think are caused by this medicine, tell your doctor. Call your doctor for medical advice about side effects. You may report side effects to FDA at 6-334-CCH-7490 ?? 2017 [employer] Information is for End User's use only and may not be sold, redistributed or otherwise used for commercial purposes. The above information is an educational psychologist only. It is not intended as medical advice for individual conditions or treatments. Talk to your doctor, nurse or pharmacist before following any medical regimen to see if it is safe and effective for you. TECHNICIAN documented in this encounter Ordered Prescriptions Prescription Sig Dispense Quantity Refills Last Filled Start Date End Date ciprofloxacin (CIPRO) 500 mg tabletIndications: Pneumonia due to COVID-19 virus Take 1 tablet (500 mg total) by mouth 2 (two) times a day for 10 days 20 tablet 12/21/2019 12/31/2019 dexAMETHasone (DECADRON) 2 mg tabletIndications: Pneumonia due to COVID-19 virus 2 tab BID x 3 days, 1 tab BID x 3 days, 1 tab qd x2 days, 1/2 tab qd x 2 days 21 tablet 12/21/2019 01/27/2020 documented in this encounter Progress Notes * Daily Cruz MD - 12/21/2019 8:30 AM CST Images from the original note were not included. Patient ID: Jud Leung is a 29 y.o. female. Visit Date: 12/21/2019 This was a telemedicine visit with Jud Leung alone which took place via real-time video connection with [employer]. During the visit, I was located at home and the patient was located at home I:n [facility]. The patient visit started at 8:32 and ended at 8:44. The patient has been informed that the [...] applicable copayments. Daily Cruz MD Chief Complaint pneumonia HPI Patient's cough was getting worse and still running a fever so she went to an ER and had CXR and was told there was hazy opacities, but they did not go to the ER. D/w patient that she likely has COvID pneumonia. Current Outpatient Medications: ??? albuterol HFA (Ventolin HFA) 90 mcg/actuation inhaler, Inhale 2 puffs every 6 (six) hours as needed, Disp: , Rfl: ??? azithromycin (ZITHROMAX) 250 mg tablet, Take 2 tabs (500 mg) by mouth today, than 1 daily for 4days., Disp: 6 tablet, Rfl: 0 ??? budesonide-formoteroL (Symbicort) 80-4.5 mcg/actuation inhaler, Inhale 2 puffs 2 (two) times a day Rinse mouth with water after use. Do not swallow., Disp: 1 Inhaler, Rfl: 0 ??? fluticasone propionate (FLONASE) 50 [...] route once , Disp: , Rfl: ??? ciprofloxacin (CIPRO) 500 mg tablet, Take 1 tablet (500 mg total) by mouth 2 (two) times a day for 10 days, Disp: 20 tablet, Rfl: 0 ??? dexAMETHasone (DECADRON) 2 mg tablet, 2 tab BID x 3 days, 1 tab BID x 3 days, 1 tab qd x2 days,1/2 tab qd x 2 days, Disp: 21 tablet, Rfl: 0 ??? HYDROcodone-chlorpheniramine ER (TUSSIONEX PENNKINETIC) 2-1.6 mg/mL ER suspension, Take 5 mL bymouth every 12 (twelve) hours as needed for cough (Patient not taking: Reported on 12/21/2019), Disp: 100 mL, Rfl: 0 Review of Systems Constitutional: Positive for fatigue and fever. HENT: Negative for congestion, ear pain, nosebleeds and rhinorrhea. Eyes: Negative for pain and redness. Respiratory: Positive for cough and shortness of breath. Cardiovascular: Negative for chest pain and palpitations. Gastrointestinal: Negative for abdominal pain and diarrhea. Endocrine: Negative for cold intolerance. Genitourinary: Negative for dysuria and frequency. Musculoskeletal: Positive for myalgias. Negative for arthralgias and back pain. Neurological: Negative for dizziness and headaches. Hematological: Does not bruise/bleed easily. Psychiatric/Behavioral: Negative for behavioral problems and confusion. Pulse 91 Temp 38.3 ??C (101 ??F) Ht 170.2 cm (5' 7.01 ) Wt 122.5 kg (270 lb) BMI 42.28 kg/m?? Body mass index is 42.28 kg/m??. Physical Exam Constitutional: Appearance: Normal appearance. [...] to COVID-19 virus (Primary) Assessment & Plan: Worsening symptoms Start cipro, decadron Cont inhaler If symptoms worsen further to go to the ER Orders: - dexAMETHasone (DECADRON) 2 mg tablet; 2 tab BID x 3 days, 1 tab BID x 3 days, 1 tab qd x2 days, 1/2 tab qd x 2 days - ciprofloxacin (CIPRO) 500 mg tablet; Take 1 tablet (500 mg total) by mouth 2 (two) times a day for 10 days Daily Cruz MD TECHNICIAN documented in this encounter Miscellaneous Notes * Assessment & Plan Note - Daily Cruz MD - 12/22/2019 2:05 PM EYE TECHNICIAN Associated Problem(s): Pneumonia due to COVID-19 virus (Deleted) Worsening symptoms Start cipro, decadron Cont inhaler If symptoms worsen further to go to the ER TECHNICIAN documented in this encounter Plan of Treatment Not on file documented as of this encounter Visit Diagnoses Diagnosis Pneumonia due to COVID-19 virus- Primary documented in this encounter Care Teams Opener Relationship Specialty Start Date End Date Daily Cruz MD PCP - General Family Medicine 08/01/19 03/03/21 documented as of this encounter
--- OUTSIDE RECORDS SUMMARY | 2024-02-21 19:39 | XMS_ITS | Encounter Summary ---
Author Organization [facility] Address [address] [place] [address] Care Team Providers Care Export Sales Assistant Name Role Phone Daily Cruz MD Primary Care Provider [phone] Reason for Visit * Reason Onset Date Comments Denial of Echo 07/08/2020 Encounter Details Date Type Department Care Team (Late st Contact Info) Description 07/08/2020 Telephone [facility] Family Medicine [address] [place] [address] Daily Cruz MD [address] [place] [address] Denial of Echo Social History Tobacco Use Types Packs/Day Years [...] on file 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 Gender Identity Female 03/02/2020 4:27 PM MAIL DISTRIBUTOR Sexual Orientation Straight 07/10/2019 11 :13 PM CDT documented as of this encounter Miscellaneous Notes * Telephone Encounter - Ignacia Garsia - 07/17/2020 10:41 AM CDT Peer to peer not approved- Dr Thayer had to update notes and we will resubmit Monday when the previous denial has completed I sent a [email or web address] message to the pt to advise her of this and looks like she has seen the message-will update all parties once completed * Telephone Encounter - Ignacia Garsia - 07/14/2020 12:[address] Thayer will do this tmrw Monday07/15/20 * Telephone Encounter - Ignacia Garsia - 07/09/2020 2:55 PM CDT No scheduling needed, just need to call them directly when you are ready to speak with them over the phone... We have up until Monday next week July 17 to do a Peer to Peer * Telephone Encounter - Ignacia Garsia - 07/09/2020 1:45 PM CDT Noted-working on this * Telephone Encounter - Daily Cruz MD - 07/09/2020 6:06 AM CDT Can you get them on the phone some time today to do a peer to peer please * Telephone Encounter - Ignacia Garsia - 07/08/2020 12:45 PM CDT Echo Denied per [employer] insurance [employer] Please see the reason below (No appt scheduled so I have not called her about the denial yet) All clinicals were submitted for the request 1) Option for a Peer to Peer #[phone]. Opt# 3 Track#[id number] 2) Option to Appeal within 15 days of denial date ??? RONI Clinical Guideline 067 for Transthoracic Echocardiogram was used to make this decision. ??? This decision was based on the notes that were sent: Shingles, no heart related symptoms, no heart exam provided. ??? Before we can approve, we need the following notes: doctor's notes about new or changing signs or exam findings to suggest heart valve or heart muscle problems. These were not given to us. ??? It is suggested that you follow up with your doctor for the next step in your care. Please advise the pt of next step Thanks documented in this encounter Plan of Treatment Not on file documented as of this encounter Visit Diagnoses Not on filedocumented in this encounter Care Teams Export Sales Assistant Relationship Specialty Start Date End Date Daily Cruz MD PCP - General Family Medicine 08/01/19 03/03/21 documented as of this encounter
--- OUTSIDE RECORDS SUMMARY | 2024-02-21 19:39 | XMS_ITS | Encounter Summary ---
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 Gender Identity Female 03/02/2020 4:27 PM EXHAUST EQUIPMENT OPERATOR Sexual Orientation Straight 07/10/2019 11 :13 PM CDT documented as of this encounter Last Filed Vital Signs Vital Sign Reading Time Taken Comments Blood Pressure 110/76 06/02/2020 8:05 PM CDT Pulse 73 06/02/2020 8:05 PM CDT Temperature 36.7 ??C (98.1 ??F) 06/02/2020 8:05 PM CD T Respiratory Rate - - Oxygen Saturation 99% 06/02/2020 8:05 PM CDT Inhaled Oxygen Concentration - - Weight 125.2 kg (276 lb 0.3 oz) 06/02/2020 8:05 PM CDT Height 170.2 cm (5' 7 ) 06/02/2020 8:05 PM CDT Body Mass Index 43.23 06/02/2020 8:05 PM CDT documented in this encounter Medications at [...] bumetanide (BUMEX) 1 mg tabletIndications :Fluid retention Take 1 tablet (1 mg total) by mouth 2 (two) times a day 60 tablet 05/20/2020 1 cariprazine (Vraylar) 3 mg capsule capsuleIndication s:Anxiety and depression Take 1 capsule (3 mg total) by mouth daily 30 capsule 5 04/22/[address] (VOLTAREN) 75 mg EC tabletIndications :Chronic pain of both knees,Chronic bilateral low back pain, unspecified whether sciatica present TAKE 1 TABLET BY MOUTH TWICE A DAY NEEDED FOR PAIN 60 tablet 05/28/2020 1 fluticasone propionate (FLONASE) 50 mcg/actuation nasal [...] after 2 hours. 9 tablet 03/21/2020 1 ubrogepant (Ubrelvy) 50 mg tabletIndications :Chronic migraine without aura without status migrainosus, not intractable Take 1 tablet (50 mg total) by mouth once as needed for migraine May repeat dose once in 2 hours if no relief. Do not exceed 2 doses in 24 hours. 10 tablet 05/20/2020 2 vilazodone (Viibryd) 10 mg tabletIndications :major depressive disorder Take 1 tablet (10 mg total) by mouth daily 30 tablet 05/20/2020 1 documented as of this encounter Discharge Disposition Disposition Code Departure Means Destination Discharge to home or self care documented in this encounter Plan of Treatment Not on file documented as of this encounter Procedures Procedure Name Priority Date/Time Associated Diagnosis Comments SCAN - LABS 06/03/2020 12:00 AM CDT documented in this encounter Results * SCAN - LABS (06/03/2020 12:00 AM CDT) Narrative 06/03/2020 12:00 AM CDT Ordered by an unspecified provider. us Historical Provider Final Res ult documented in this encounter Visit Diagnoses Not on filedocumented in this encounter Care Teams Resident Hall Director Relationship Specialty Start Date End Date Daily Cruz MD PCP - General Family Medicine 08/01/19 03/03/21 documented as of this encounter
--- OUTSIDE RECORDS SUMMARY | 2024-02-21 19:39 | XMS_ITS | Encounter Summary ---
Author Organization [facility] Address [address] [place] [address] Care Team Providers Care Typing Secretary Name Role Phone Daily Cruz MD Primary Care Provider [phone] Encounter Details Date Type Department Care Team (Late st Contact Info) Description 04/22/2020 1:15 PM CAREER AND TECHNOLOGY EDUCATION TEACHER Telemedicine [facility] Family Medicine [address] [place] [address] Daily Cruz MD [address] [place] [address] [address] [place] [address] Chronic pain of both knees (Primary Dx); Intractable chronic migraine without aura and with status migrainosus; Anxiety and depression; Chronic bilateral low back pain, unspecified whether sciatica present; Reactive airway disease that is not asthma Social History Tobacco Use Types Packs/Day [...] file Legal Sex Female 3:37 PM CAREER AND TECHNOLOGY EDUCATION TEACHER Gender Identity Female 03/02/2020 4:27 PM CAREER AND TECHNOLOGY EDUCATION TEACHER Sexual Orientation Straight 07/10/2019 11 :13 PM CDT documented as of this encounter Last Filed Vital Signs Vital Sign Reading Time Taken Comments Blood Pressure - - Pulse - - Temperature 36.9 ??C (98.4 ??F) 04/22/2020 1:10 PM CS T per patient Respiratory Rate - - Oxygen Saturation - - Inhaled Oxygen Concentration - - Weight 120.2 kg (265 lb) 04/22/2020 1:10 PM CAREER AND TECHNOLOGY EDUCATION TEACHER Height 170.2 cm (5' 7.01 ) 04/22/2020 1:10 PM CS T Body Mass Index 41.49 04/22/2020 1:10 PM CAREER AND TECHNOLOGY EDUCATION TEACHER documented in this encounter Patient Instructions * Patient Instructions* Daily Cruz MD - 04/22/2020 1:15 PM CAREER AND TECHNOLOGY EDUCATION TEACHER Patient Education Diclofenac (By mouth) Diclofenac ([id number]) Treats pain. Also treats migraines. This medicine is an NSAID. Brand Name(s): Cambia, Cataflam, DermaSilkRx Anodynexa Michael, DermaSilkRx Diclo Michael, DermacinRx Inflammatral Michael, Inflammacin, NuDiclo TabPAK, PrevidolRx Analgesic Michael, PrevidolRx Plus Analgesic Michael, Voltaren, Zipsor, Zorvolex There may be other brand names for this medicine. When This Medicine Should Not Be Used: This medicine is not right for everyone. Do not use it if you had an allergic reaction to diclofenac, aspirin, or another NSAID. How to Use This Medicine: Capsule, Liquid, Tablet, Coated Tablet, Long Acting Tablet ?? Your doctor will tell you how much medicine to use. Do not use more than directed. ?? This medicine should come with a Medication Guide. Ask your pharmacist for a copy if you do not have one. ?? Oral solution: Mix the packet contents with 1 to 2 ounces (30 to 60 mL) of water. Do not use anyliquid other than water for mixing the medicine. Mix well and drink it immediately on an empty stomach. ?? Missed dose: Take a dose as soon as you remember. If it is almost time for your next dose, wait until then and take a regular dose. Do not take extra medicine to make up for a missed dose. ?? Store the medicine in a closed container at room temperature, away from heat, moisture, and direct light. . Drugs and Foods to Avoid: Ask your doctor or pharmacist before using any other medicine, including [id number] medicines, vitamins, and herbal products. ?? Do not use any other NSAID unless your doctor says it is okay. Some other NSAIDs are aspirin, diflunisal, ibuprofen, naproxen, or salsalate. ?? Some medicines and foods can affect how diclofenac works. Tell your doctor if you are also usingany of the following: ?? Cyclosporine, digoxin, lithium, methotrexate, pemetrexed ?? Blood pressure medicine ?? Blood thinner (such as warfarin) ?? Diuretic (water pill) ?? Medicine to treat depression ?? Steroid medicine Warnings While Using This Medicine: ?? Tell your doctor if you are or . Do not use this medicine during the laterpart of a , unless your doctor tells you to. ?? Tell your doctor if you have kidney disease, liver disease, asthma, heart failure, high blood pressure, or heart or blood vessel problems, or a history of stomach ulcers or bleeding problems. Tellyour doctor if you have phenylketonuria (PKU). Also tell your doctor if you drink alcohol. ?? This medicine may cause the following problems: ?? Increased risk of heart attack, heart failure, or stroke ?? Bleeding in your stomach or intestines ?? Liver problems ?? Serious skin reactions ?? Your headaches may become worse if you use a headache medicine for 10 or more days per month. Write down how often your headaches occur and how often you use this medicine. ?? Your doctor will do lab tests at regular visits to check on the effects of this medicine. Keep all appointments. ?? Keep all medicine [...] chest tightness, trouble breathing ?? Blistering, peeling, or red skin rash ?? Bloody or black, tarry stools, severe stomach pain, vomiting blood or material that looks like coffee grounds ?? Change in how much or how often you urinate ?? Chest pain that may spread to your arms, jaw, back, or neck, trouble breathing, unusual sweating, faintness ?? Dark urine or pale stools, nausea, vomiting, loss of appetite, stomach pain, yellow skin or eyes ?? Numbness or weakness in your arm or leg, or on one side of your body, pain in your lower leg, sudden or severe headache, or problems with vision, speech, or walking ?? Rapid weight gain, swelling in your hands, ankles, or feet If you notice these less serious side effects, talk with your doctor: ?? Constipation or diarrhea ?? Mild headache If you notice other side effects that you think are caused by this medicine, tell your doctor. Call your doctor for medical advice about side effects. You may report side effects to FDA at 9-006-GQQ-3701 ?? 2016 [employer] Information is for End User's use only and may not be sold, redistributed or otherwise used for commercial purposes. The above information is an educational therapy teacher only. It is not intended as medical advice for individual conditions or treatments. Talk to your doctor, nurse or pharmacist before following any medical regimen to see if it is safe and effective for you. documented in this encounter Ordered Prescriptions Prescription Sig Dispense Quantity Refills Last Filled Start Date End Date budesonide-formote roL (Symbicort) 160-4.5 mcg/actuation inhalerIndications :Reactive airway disease that is not asthma Inhale 2 puffs 2 (two) times a day Rinse mouth with water after use. Do not swallow. 1 Inhaler 2 04/22/[address] (VOLTAREN) 75 mg EC tabletIndications: Chronic pain of both knees,Chronic bilateral low back pain, unspecified whether sciatica present Take 1 tablet (75 mg total) by mouth 2 (two) times a day as needed (pain) 60 tablet 04/22/2020 1 galcanezumab-gnlm (Emgality Pen) 120 mg/mL pen injectorIndication s:Intractable chronic migraine without aura and with status migrainosus Inject 120 mg under the skin every 30 (thirty) days 1 Syringe 5 04/22/2020 1 cariprazine (Vraylar) 3 mg capsule capsuleIndications :Anxiety and depression Take 1 capsule (3 mg total) by mouth daily 30 capsule 5 04/22/2020 documented in this encounter Progress Notes * Daily Cruz MD - 04/22/2020 1:15 PM CST Images from the original note were not included. Patient ID: Jdu Leung is a 29 y.o. female. Visit Date: 04/22/2020 This was a telemedicine visit with Jud Leung alone which took place via real-time video connection with [employer]. During the visit, I was located at home and the patient was located at home in the [facility]. The patient visit started at 13:10 and ended at 13:27. The patient has been informed that the visit may not be secure and acknowledged the information. I have explained the option of participating in a telephone or video visit during the [facility] public health emergency to the patient. After being given an opportunity to ask questions about and discuss this type of visit, the patient verbally consented to proceeding with the telephone/video visit.The patient understands that this service replaces an office visit and they may be billed and/or responsible for any applicable copayments. Chief Complaint Knee pain Low back pain anxiety HPI Patient has been to 4 weeks of physical therapy for her knees and low back and continues to do exercises at home. However, knee and low back pain not any better. Has been icing and using heating pad.Rotating IBP and tylenol. Awaiting to get mRI's H/o Migraines - Tolerating Emgality H/o RAD - stable. Tolerating Symbicort H/o Anxiety/Depression - Is improving with Vraylar, but does feel could use increased dosage Current Outpatient Medications: ??? albuterol HFA (Ventolin HFA) 90 mcg/actuation inhaler, Inhale 2 puffs every 6 (six) hours as needed, Disp: , Rfl: ??? fluticasone propionate (FLONASE) [...] hours., Disp: 9 tablet, Rfl: 0 ??? budesonide-formoteroL (Symbicort) 160-4.5 mcg/actuation inhaler, Inhale [...] needed (pain), Disp: 60 tablet, Rfl: 0 Review of Systems Constitutional: Negative for fatigue and fever. HENT: Negative for congestion, ear pain, nosebleeds and rhinorrhea. Eyes: Negative for pain and redness. Respiratory: Negative for cough and shortness of breath. RAD Cardiovascular: Negative for chest pain and palpitations. Gastrointestinal: Negative for abdominal pain and diarrhea. Endocrine: Negative for cold intolerance. Genitourinary: Negative for dysuria and frequency. Musculoskeletal: Positive for back pain. Negative for arthralgias. Knee pain Neurological: Negative for dizziness and headaches. Migraine Hematological: Does not bruise/bleed easily. Psychiatric/Behavioral: Negative for behavioral problems and confusion. The patient is nervous/anxious. Depression Temp 36.9 ??C (98.4 ??F) Comment: per patient Ht 170.2 cm (5' 7.01 ) Wt 120.2 kg (265 lb) BMI41.49 kg/m?? Body mass index is 41.49 kg/m??. Physical Exam Constitutional: Appearance: Normal appearance. [...] Diagnoses and all orders for this visit: Chronic pain of both knees (Primary) Assessment & Plan: Uncontrolled Start Voltaren Await MRI Orders: - diclofenac DR (VOLTAREN) 75 mg EC tablet; Take 1 tablet (75 mg total) by mouth 2 (two) times a day as needed (pain) Intractable chronic migraine without aura and with status migrainosus Assessment & Plan: Stable Cont emgality Orders: - galcanezumab-gnlm (Emgality Pen) 120 mg/mL pen injector; Inject 120 mg under the skin every 30 (thirty) days Anxiety and depression Assessment & Plan: Improving Increase vraylar to 3 mg daily Orders: - cariprazine (Vraylar) 3 mg capsule capsule; Take 1 capsule (3 mg total) by mouth daily Chronic bilateral low back pain, unspecified whether sciatica present Assessment & Plan: Uncontrolled Start Voltaren Await MRI Orders: - diclofenac DR (VOLTAREN) 75 mg EC tablet; Take 1 tablet (75 mg total) by mouth 2 (two) times a day as needed (pain) Reactive airway disease that is not asthma Assessment & Plan: Stable Cont symbicort Orders: - budesonide-formoteroL (Symbicort) 160-4.5 mcg/actuation inhaler; Inhale 2 puffs 2 (two) times a day Rinse mouth with water after use. Do not swallow. Daily Cruz MD documented in this encounter Miscellaneous Notes * Assessment & Plan Note - Daily Cruz MD - 05/13/2020 4:02 AM CDT Associated Problem(s): Reactive airway disease without asthma Stable Cont symbicort * Assessment & Plan Note - Daily Cruz MD - 05/13/2020 4:02 AM CDT Associated Problem(s): Chronic pain of both knees Uncontrolled Start Voltaren Await MRI * Assessment & Plan Note - Daily Cruz MD - 05/13/2020 4:01 AM CDT Associated Problem(s): Chronic bilateral low back pain Uncontrolled Start Voltaren Await MRI * Assessment & Plan Note - Daily Cruz MD - 04/22/2020 1:16 PM CAREER AND TECHNOLOGY EDUCATION TEACHER Associated Problem(s): Chronic migraine without aura without status migrainosus, not intractable Stable Cont emgality ER AND TECHNOLOGY EDUCATION TEACHER * Assessment & Plan Note - Daily Cruz MD - 04/22/2020 1:16 PM CAREER AND TECHNOLOGY EDUCATION TEACHER Associated Problem(s): Anxiety and depression Improving Increase vraylar to 3 mg daily ER AND TECHNOLOGY EDUCATION TEACHER documented in this encounter Plan of Treatment Not on file documented as of this encounter Visit Diagnoses Diagnosis Chronic pain of both knees- Primary Intractable chronic migraine without aura and with status migrainosus Anxiety and depression Chronic bilateral low back pain, unspecified whether sciatica present Reactive airway disease that is not asthma documented in this encounter Discontinued Medications Medication Sig Discontinue Reason Start Date End Da te Symbicort 80-4.5 mcg/actuation inhalerIndications:Cough INHALE 2 PUFFS 2 (TWO) TIMES A DAY RINSE MOUTH WITH WATER AFTER USE. DO NOT SWALLOW. Therapy completed 02/04/2020 04/22/2020 cariprazine (Vraylar) 1.5 mg capsuleIndications:Anxiet y and depression Take 1.5 mg by mouth daily Dose adjustment 04/12/2020 04/22/2020 galcanezumab-gnlm (Emgality Pen) 120 mg/mL pen injectorIndications:Intra ctable chronic migraine without aura and with status migrainosus Inject 120 mg under the skin every 30 (thirty) days Reorder 03/04/2020 04/22/2020 documented as of this encounter Additional Health Concerns Infection Onset Date Last Indicated Resolved Time COVID: Recovered Comment:Added based on recent COVID infection. 01/02/2020 01/22/2020 05/01/2020 3:05 AM C DT documented as of this encounter Care Teams Typing Secretary Relationship Specialty Start Date End Date Daily Cruz MD PCP - General Family Medicine 08/01/19 03/03/21 documented as of this encounter
--- OUTSIDE RECORDS SUMMARY | 2024-02-21 19:39 | XMS_ITS | Encounter Summary ---
Author Organization [facility] Address [address] [place] [address] Phone Care Team Providers Care Operational Trainer Name Role Phone Daily Cruz MD Primary Care Provider [phone] Reason for Referral * Procedure (Routine) - Closed Specialty Diagnoses / Procedures Referred By Contac t Referred To Contact Diagnoses Chronic pain of both knees Procedures Large [place]: [place] [id number] [place] [address] Phone: tel: fax: [facility] (All Locations) Referral ID Status Reason Start Date Expiration Date Visits Re quested Visits Authorized [id number] Closed 06/16/2020 07/16/2021 1 1 Reason for Visit * Reason Comments Pain Pain * Consultation (Routine) - Closed Specialty Diagnoses / Procedures Referred By Contfabian t Referred To Contact Orthopedic Surgery Diagnoses Chronic pain of both knees Daily Cruz MD Phone: tel: fax: [place] [id number] [place] [address] Phone: tel: fax: Referral ID Status Reason Start Date Expiration Date V isits Requested Visits Authorized [id number] Closed Specialty Services Required 06/15/2020 07/15/2021 1 1 Encounter Details Date Type Department Care Team (Late st Contact Info) Description 06/15/2020 3:00 PM CDT Office Visit [facility] Orthopaedic Surgery [address] [place] [address] [place] [id number] [place] [address] Chronic pain of both knees (Primary Dx); Right knee pain, unspecified chronicity; Left knee pain, unspecified chronicity Social History Tobacco Use Types Packs/Day Years [...] on file 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 Gender Identity Female 03/02/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 Sexual Orientation Straight 07/10/2019 11 :13 PM CDT documented as of this encounter Last Filed Vital Signs Vital Sign Reading Time Taken Comments Blood Pressure - - Pulse - - Temperature - - Respiratory Rate - - Oxygen Saturation - - Inhaled Oxygen Concentration - - Weight 122.5 kg (270 lb) 06/15/2020 5:06 PM CDT Height 170.2 cm (5' 7 ) 06/15/2020 5:06 PM CDT Body Mass Index 42.29 06/15/2020 5:06 PM CDT documented in this encounter Progress Notes * Logan Morel MD - 06/15/2020 3:00 PM CDTAssociated Order(s): Large Joint Injection: bilateral knee Post-Procedure Diagnose(s): Chronic pain of both knees NEW PATIENT VISIT CHIEF COMPLAINT Bilateral anterior knee pain HISTORY OF PRESENT ILLNESS 29 yo F w/ 2 year history of worsening bilateral anterior knee pain (R>L). Her pain is worse with deep lunges and squats, better with rest. She reports that 2 years ago she was diagnosed with a crack in her R knee cartilage after twisting the wrong way, and was treated conservatively with PT, cortisone injections, a R knee brace and a Pain management referral. Her R knee pain was tolerable for some time, until it worsened in the last several months. She also reports a history of bilateral foot surgeries in 2018/2019 requiring her to be in casts/boots for more than a year, which she feelsexacerbated her symptoms. Her knee pain became so severe that she was in a wheelchair for a period during her foot surgeries 2/2 knee pain. She endorses feelings of knee instability bilaterally, R>L, and remarks upon one episode of catching/locking in her R knee. More than anything, she reports bilateral quad weakness, in which she feels like her quads are shaking at the end of the day. She just finished a course of PT which she does not believe helped significantly with her knee pain. She is currently being evaluated by neurosurgery for degenerative disk disease in her lumbar spine. Past Medical History: Diagnosis Date ??? ADHD [...] MYRINGOTOMY AND TUBES ??? WISDOM TOOTH EXTRACTION Current Outpatient Medications: ??? albuterol HFA (Ventolin HFA) 90 mcg/actuation inhaler, Inhale 2 puffs every 6 (six) hours as needed, Disp: , Rfl: ??? budesonide-formoteroL (Symbicort) 160-4.5 mcg/actuation inhaler, Inhale 2 puffs 2 (two) times aday Rinse mouth with water after use. Do not swallow., Disp: 1 Inhaler, Rfl: 2 ??? bumetanide (BUMEX) 1 mg tablet, TAKE 1 TABLET BY MOUTH TWICE A DAY, Disp: 60 tablet, Rfl: 2 ??? cariprazine (Vraylar) 3 mg capsule capsule, Take 1 capsule (3 mg total) by mouth daily, Disp: 30 capsule, Rfl: 5 ??? diclofenac DR (VOLTAREN) 75 mg EC tablet, TAKE 1 TABLET BY MOUTH TWICE A DAY NEEDED FOR PAIN, Disp: 60 tablet, Rfl: 0 ??? fluticasone [...] hours., Disp: 9 tablet, Rfl: 0 ??? ubrogepant (Ubrelvy) 50 mg tablet, Take 1 tablet (50 mg total) by mouth once as needed for migraine May repeat dose once in 2 hours if no relief. Do not exceed 2 doses in 24 hours., Disp: 10 tablet, Rfl: 0 Allergies Allergen Reactions ??? Acetazolamide Swollen tongue Tongue and lip swelling Sob Rash ??? Dihydroergotamine Shortness of breath Severe pressure and tightness in chest Severe pressure and tightness in chest Anxiety, Shortness of Breath/Wheezing (Shortness of breath) Bradycardia and HTN ??? Hydrochlorothiazide Swollen tongue ??? Reglvfokiiw-Wkbuuvwj-Oqztwcnjg Swelling Tongue swelling, blistering ??? Nickel Hives, Itching, Rash and Swelling SKIN TURNS RED ??? Topiramate Swelling and Other (See comments) Dizzy, body goes numb ??? Hydrocodone-Acetaminophen Nausea And Vomiting ??? Lamotrigine Other (See comments) SEIZURE ACTIVITY ??? Levetiracetam Other (See comments) SEIZURE ACTIVITY ??? Oxycodone-Acetaminophen Nausea And Vomiting Social History Socioeconomic History ??? Marital status: Spouse name: Not on file ??? Number of children: Not on file ??? Years of education: Not on file ??? Highest education level: Not on file Occupational History ??? Not on file Tobacco Use ??? Smoking status: Never Smoker ??? Smokeless tobacco: Never Used Substance and Sexual Activity ??? Alcohol use: Not Currently Alcohol/week: 0.0 standard drinks Comment: Maybe a drink every few months ??? Drug use: Never ??? Sexual activity: Yes Partners: Male control/protection: I.U.D. Other Topics Concern ??? Not on file Social History Narrative ??? Not on file Social Determinants of Health Financial Resource Strain: ??? Difficulty of Paying Living Expenses: Food Insecurity: ??? Worried About Running Out of Food in the Last Year: ??? Ran Out of Food in the Last Year: Transportation Needs: ??? Lack of Transportation (Medical): ??? Lack of Transportation (Non-Medical): Physical Activity: ??? Days of Exercise per Week: ??? Minutes of Exercise per Session: Stress: ??? Feeling of Stress : Social Connections: ??? Frequency of Communication with Friends and Family: ??? Frequency of Social Gatherings with Friends and Family: ??? Attends Christian Services: ??? Active Member of Clubs or Organizations: ??? Attends Club or Organization Meetings: ??? Marital Status: Intimate Partner Violence: ??? Fear of Current or Ex-Partner: ??? Emotionally Abused: ??? Physically Abused: ??? Sexually Abused: Family History Problem Relation Age of Onset [...] problems Neg Hx REVIEW OF SYSTEMS ROS per HPI, otherwise negative PHYSICAL EXAMINATION Well-appearing female in NAD. Hearing intact to normal levels of conversation. No labored breathing. Height- 5'7 . Weight - 62 kg Range of motion is full in bilateral knees. Bilateral knees with R>L mild effusion. negative Patellofemoral crepitus. negative medial patella facet tenderness. negative lateral patellar facet tenderness. negative Sherine's. negative posterior drawer. negative varus in full extension. negative valgus laxity in full extension. negative varus laxity in 30?? of knee flexion. negative valgus laxityin 30?? of knee flexion. positive medial joint line tenderness. negative lateral joint line tenderness. negative with Bert's. negative Thessaly test. negative apprehension with lateral patellar translation. 5/5 strength with ankle dorsiflexion, plantar flexion and EHL. Dorsalis pedis pulse is easily palpable. +J sign bilaterally (R>L), with Trendelenburg gait (R>L) REVIEW OF X-RAYS/STUDIES Report of OSH MRI reviewed today, which demonstrated L patellofemoral chondrosis, L pretibial bursitis, R patellofemoral chondrosis, evidence of lateral femoral condyle patellar friction, and MCL bursitis. Ligaments and menisci intact bilaterally. IMPRESSION/DIAGNOSIS Bilateral patellofemoral pain related to patellar malalignment and maltracking TREATMENT PLAN We discussed the etiology of her bilateral patellar malalignment and strongly recommended that she continue with physical therapy/home exercises to improve her quadriceps muscle balance and hip abductor/gluteus strength. We also discussed the important role of weight loss for improving the load through the anterior knee/patella. Given that she has some effusions bilaterally, we performed bilateral knee cortisone injections today. She verbalizes understanding and is comfortable with this plan. All questions were answered, she can follow up with me as needed. Loni Perez MD PGY-1 Orthopedic Surgery Resident [facility] ATTENDING ATTESTATION: Please see resident/fellow's note. I discussed the case with the resident/fellow, performed the physical examination, reviewed all tests and imaging studies, and agree with the findings and treatmentplan as documented in resident/fellow's note. 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 She has quad and gluteal weakness. She has lateral patellar tracking. We talked about trying an intra-articular steroid again to see if this improves her symptoms and allows her to be more efficient andphysical therapy. She also needs to lose weight. We will see how she responds to the injection. Sheunderstands the risk of infection with an injection. She wanted to proceed. Large Joint Injection: bilateral knee Performed by: Logan Morel MD Authorized by: Logan Morel MD Procedure Details: Location: Knee Site: Bilateral knee Prep: patient was prepped and draped in usual sterile fashion Approach: Superior lateral Medications Right Large Joint Injection: 40 mg triamcinolone 40 mg/mL; 5 mL bupivacaine HCl 0.25 % (2.5 mg/mL) Patient tolerance: Patient tolerated the procedure with difficulty After Betadine prep to the superolateral aspect of the right and left knee, I injected a mixture of40 mg Kenalog and 5 cc of 0.25% bupivacaine into each knee. Logan Morel M.D. Utilization Supervisor of Orthopaedic Surgery Sports Medicine and Shoulder Surgery Logan Morel M.D. dictating using [employer] software. documented in this encounter Plan of Treatment Not on file documented as of this encounter Procedures Procedure Name Priority Date/Time Associated Diagnosis Comments DE ARTHROCENTESIS ASPIR&/INJ MAJOR JT/BURSA W/O US Routine 06/15/2020 3:00 PM CDT Chronic pain of both knees documented in this encounter Results * DE ARTHROCENTESIS ASPIR&/INJ MAJOR JT/BURSA W/O US (06/15/2020 3:00 PM CDT) Narrative Logan Morel MD - 06/15/2020 3:00 PM CDT Logan Morel MD ? 06/16/2020 10:05 AM Large Joint Injection: bilateral knee Performed by: Logan Morel MD Authorized by: Logan Morel MD Procedure Details: ??Location: ??Knee ??Site: ??Bilateral knee ??Prep: patient was prepped and draped in usual sterile fashion ?Approach: ??Superior lateral ??Medications Right Large Joint Injection: ??40 mg triamcinolone 40 mg/mL; 5 mL bupivacaine HCl 0.25 % (2.5 mg/mL) ??Patient tolerance: ??Patient tolerated the procedure with difficulty ?? After Betadine prep to the superolateral aspect of the right and left knee, I injected a mixture of 40 mg Kenalog and 5 cc of 0.25% bupivacaine into each knee. us Logan Morel MD IN CLINIC/BEDSIDE ORDERA BLES Final Result documented in this encounter Visit Diagnoses Diagnosis Chronic pain of both knees- Primary Right knee pain, unspecified chronicity Left knee pain, unspecified chronicity documented in this encounter Administered Medications Inactive Administered Medications - up to 3 most recent administrations Medication Order MAR Action Action Date Dose Rate Site bupivacaine HCl (MARCAINE) 0.25 % (2.5 mg/mL) injection 5 mL 5 mL, other, One-Time Injection, Starting on Mon06/16/20 at 1005, For 1 doseIndications:Chronic pain of both knees Given 06/16/2020 10:05 AM CDT 5 mL triamcinolone (KENALOG) 40 mg/mL injection 40 mg 40 mg, intra-articular, One-Time Injection, Starting on Mon06/16/20 at 1005, For 1 doseIndications:Chronic pain of both knees Given 06/16/2020 10:05 AM CDT 40 mg documented in this encounter Orders Outpatient Referral Count Last Ordered Date Fir st Ordered Date AMB REFERRAL TO ORTHOPEDIC SURGERY 1 2020 documented in this encounter Care Teams Operational Trainer Relationship Specialty Start Date End Date Daily Cruz MD PCP - General Family Medicine 08/01/19 03/03/21 documented as of this encounter
--- OUTSIDE RECORDS SUMMARY | 2024-02-21 19:39 | XMS_ITS | Encounter Summary ---
Author Organization [facility] Address [address] [place] [address] Care Team Providers Care Cast Associate Name Role Phone Daily Cruz MD Primary Care Provider [phone] Encounter Details Date Type Department Care Team (Late st Contact Info) Description 04/01/2020 11:15 AM LARGE 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 Telemedicine [facility] Family Medicine [address] [place] [address] Daily Cruz MD [address] [place] [address] [address] [place] [address] Intractable chronic migraine without aura and with status migrainosus (Primary Dx); Anxiety and depression; Chronic pain of both knees Social History Tobacco Use Types Packs/Day Years [...] on file Legal Sex Female 3:37 PM 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 Gender Identity Female 03/02/2020 4:27 PM LARGE 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 Sexual Orientation Straight 07/10/2019 11 :13 PM CDT documented as of this encounter Last Filed Vital Signs Vital Sign Reading Time Taken Comments Blood Pressure - - Pulse - - Temperature - - Respiratory Rate - - Oxygen Saturation - - Inhaled Oxygen Concentration - - Weight 122.5 kg (270 lb 1 oz) 04/01/2020 11:15 A M LARGE 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 Height 170.2 cm (5' 7.01 ) 04/01/2020 11:15 AM Nell SALDE Body Mass Index 42.29 04/01/2020 11:15 AM LARGE 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 documented in this encounter Patient Instructions * Patient Instructions* Daily Cruz MD - 04/01/2020 11:15 AM LARGE 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 Images from the original note were not included. 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 You may have pain on the side, front, or back of your knee. You may have knee stiffness and swelling. You may hear popping sounds or feel like your knee is giving way or locking up as you walk. You may feel pain when you sit, stand, walk, or climb up and down stairs. Knee pain can be caused by conditions such as obesity, inflammation, or strains or tears in ligaments or tendons. Seek care immediately if: ?? Your pain is worse, even after treatment. ?? You cannot bend or straighten your leg completely. ?? The swelling around your knee does not go down even with treatment. ?? Your knee is painful and hot to the touch. Contact your healthcare provider if: ?? You have questions or concerns about your condition or care. Treatment will depend on the cause of your pain. You may need any of the following: ?? NSAIDs help decrease swelling and pain or fever. This medicine is available with or without a doctor's order. NSAIDs can cause stomach bleeding or kidney problems in certain people. If you take blood thinner medicine, always ask your healthcare provider if NSAIDs are safe for you. Always read the medicine label and follow directions. ?? Acetaminophen decreases pain and fever. It is available without a doctor's order. Ask how much to take and how often to take it. Follow directions. Read the labels of all other medicines you are using to see if they also contain acetaminophen, or ask your doctor or pharmacist. Acetaminophen can cause liver damage if not taken correctly. Do not use more than 4 grams (4,000 milligrams) total of acetaminophen in one day. ?? Prescription pain medicine may be given. Ask your healthcare provider how to take this medicine safely. Some prescription pain medicines contain acetaminophen. Do not take other medicines that contain acetaminophen without talking to your healthcare provider. Too much acetaminophen may cause liver damage. Prescription pain medicine may cause constipation. Ask your healthcare provider how to prevent or treat constipation. ?? Steroid injections may be given into your knee. Steroids reduce inflammation and pain. ?? Surgery may be used for some injuries, such as to repair a torn ACL. What you can do to manage your symptoms: ?? Rest your knee so it can heal. Limit activities that increase your pain. Do low-impact exercises, such as walking or swimming. ?? Apply ice to help reduce swelling and pain. Use an ice pack, or put crushed ice in a plastic bag. Cover it with a towel before you apply it to your knee. Apply ice for 15 to 20 minutes every hour,or as directed. ?? Apply compression to help reduce swelling. Use a brace or bandage only as directed. ?? Elevate your knee to help decrease pain and swelling. Elevate your knee while you are sitting orlying down. Prop your leg on pillows to keep your knee above the level of your heart. ?? Prevent your knee from moving as directed. Your healthcare provider may put on a cast or splint.You may need to wear a leg brace to stabilize your knee. A leg brace can be adjusted to increase your range of motion as your knee heals. What you can do to prevent knee pain: ?? Maintain a healthy weight. Extra weight increases your risk for knee pain. Ask your healthcare provider how much you should weigh. He or she can help you create a safe weight loss plan if you needto lose weight. ?? Exercise or train properly. Use the correct equipment for sports. Wear shoes that provide good support. Check your posture often as you exercise, play sports, or train for an event. This can help prevent stress and strain on your knees. Rest between sessions so you do not overwork your knees. Follow up with your healthcare provider within 24 hours or as directed: Write down your questions so you remember to ask them during your visits. ?? 2017 [employer] Information is for End User's use only and may not be sold, redistributed or otherwise used for commercial purposes. All illustrations and images included in CareNotes?? are the copyrighted property of [employer].D.A[employer] Inc. or [employer]. The above information is an paid search marketing strategist only. It is not intended as medical advice for individual conditions or treatments. Talk to your doctor, nurse or pharmacist before following any medical regimen to see if it is safe and effective for you. E 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 documented in this encounter Ordered Prescriptions Prescription Sig Dispense Quantity Refills Last Filled Start Date End Date cariprazine (Vraylar) 1.5 mg capsuleIndications: Anxiety and depression Take 1.5 mg by mouth daily 30 capsule 04/12/2020 04/22/2020 documented in this encounter Progress Notes * Daily Cruz MD - 04/01/2020 11:15 AM CST Images from the original note were not included. Patient ID: Jud Leung is a 29 y.o. female. Visit Date: 04/01/2020 This was a telemedicine visit with Jud Leung alone which took place via real-time video connection with [employer]. During the visit, I was located at home and the patient was located at home in the [facility]. The patient visit started at 11:15 and ended at 11:36. The patient has been informed that the visit may not be secure and acknowledged the information. I have explained the option of participating in a telephone or video visit during [facility] to the patient. After being given an opportunity to ask questions about and discuss this type of visit, the patient verbally consented to proceeding with the telephone/video visit.The patient understands that this service replaces an office visit and they may be billed and/or responsible for any applicable copayments. Chief Complaint Anxiety/depression Migraine Knee pain HPI Continues to have knee pain. xrays negative and unresponsive to therapy H/o Migraines - Has been on keppra and lamictal before for prevention, but they caused side effectsof severe drowsiness and would get witdrawal tremors Depression Visit Type: initial Patient presents with the following symptoms: decreased concentration, depressed mood, excessive worry, feelings of hopelessness, feelings of worthlessness, hyperventilation, insomnia, irritability, nervousness/anxiety and panic. Patient is not experiencing: confusion, palpitations, shortness of breath and suicidal ideas. Treatments tried: has failed: zoloft, celexa, wellbutrin, effexor. Current Outpatient Medications: ??? albuterol HFA (Ventolin HFA) 90 mcg/actuation inhaler, Inhale 2 puffs every 6 (six) hours as needed, Disp: , Rfl: ??? cariprazine (Vraylar) 1.5 mg capsule, Take 1.5 mg by mouth daily, Disp: 30 capsule, Rfl: 0 ??? fluticasone propionate (FLONASE) 50 mcg/actuation nasal spray, Administer 2 sprays into each nostril daily, Disp: 16 g, Rfl: 0 ??? galcanezumab-gnlm (Emgality Pen) 120 mg/mL pen injector, Inject 120 mg under the skin every 30 (thirty) days, Disp: 1 Syringe, Rfl: 0 ??? levocetirizine (XYZAL) 5 mg [...] hours., Disp: 9 tablet, Rfl: 0 ??? Symbicort 80-4.5 mcg/actuation inhaler, INHALE 2 PUFFS 2 (TWO) TIMES A DAY RINSE MOUTH WITH WATER AFTER USE. DO NOT SWALLOW., Disp: 10.2 Inhaler, Rfl: 1 Review of Systems Constitutional: Positive for irritability. Negative for fatigue and fever. HENT: Negative for congestion, ear pain, nosebleeds and rhinorrhea. Eyes: Negative for pain and redness. Respiratory: Negative for cough and shortness of breath. Cardiovascular: Negative for chest pain and palpitations. Gastrointestinal: Negative for abdominal pain and diarrhea. Endocrine: Negative for cold intolerance. Genitourinary: Negative for dysuria and frequency. Musculoskeletal: Negative for arthralgias and back pain. Knee pain Neurological: Positive for headaches. Negative for dizziness. Hematological: Does not bruise/bleed easily. Psychiatric/Behavioral: Positive for decreased concentration. Negative for behavioral problems, confusion and suicidal ideas. The patient is nervous/anxious and has insomnia. Ht 170.2 cm (5' 7.01 ) Wt 122.5 kg (270 lb 1 oz) BMI 42.29 kg/m?? Body mass index is 42.29 kg/m??. Physical Exam Constitutional: Appearance: Normal appearance. She is well-developed. HENT: Head: Normocephalic and atraumatic. Nose: Nose [...] Cranial Nerves: No cranial nerve deficit. Psychiatric: Mood and Affect: Mood normal. Behavior: Behavior normal. Diagnoses and all orders for this visit: Intractable chronic migraine without aura and with status migrainosus (Primary) Assessment & Plan: Has been on keppra and lamictal before for prevention, but they caused side effects of severe drowsiness and would get witdrawal tremors Anxiety and depression Assessment & Plan: Worsening Start vraylar 1.5mg Orders: - cariprazine (Vraylar) 1.5 mg capsule; Take 1.5 mg by mouth daily Chronic pain of both knees Assessment & Plan: No improvement Get MRIs next Daily Cruz MD E 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 documented in this encounter Miscellaneous Notes * Assessment & Plan Note - Daily Cruz MD - 04/12/2020 4:50 PM LARGE 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 Associated Problem(s): Chronic pain of both knees No improvement Get MRIs next E 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 * Assessment & Plan Note - Daily Cruz MD - 04/01/2020 11:36 AM LARGE 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 Associated Problem(s): Anxiety and depression Worsening Start vraylar 1.5mg E 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 * Assessment & Plan Note - Daily Cruz MD - 04/01/2020 11:27 AM LARGE 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 Associated Problem(s): Chronic migraine without aura without status migrainosus, not intractable Has been on keppra and lamictal before for prevention, but they caused side effects of severe drowsiness and would get witdrawal tremors E 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 documented in this encounter Plan of Treatment Not on file documented as of this encounter Visit Diagnoses Diagnosis Intractable chronic migraine without aura and with status migrainosus- Primary Anxiety and depression Chronic pain of both knees documented in this encounter Additional Health Concerns Infection Onset Date Last Indicated Resolved Time COVID: Recovered Comment:Added based on recent COVID infection. 01/02/2020 01/22/2020 05/01/2020 3:05 AM C DT documented as of this encounter Care Teams Cast Associate Relationship Specialty Start Date End Date Daily Cruz MD PCP - General Family Medicine 08/01/19 03/03/21 documented as of this encounter
--- OUTSIDE RECORDS SUMMARY | 2024-02-21 19:39 | XMS_ITS | Encounter Summary ---
Author Organization [facility] Address [address] [place] [address] Care Team Providers Care House Fellow Name Role Phone Daily Cruz MD Primary Care Provider [phone] Reason for Visit * Reason Comments Hospital Follow Up Encounter Details Date Type Department Care Team (Late st Contact Info) Description 06/09/2020 8:15 AM CDT Telemedicine [facility] Family Medicine [address] [place] [phone] Daily Cruz MD [address] [place] [id number] Herpes zoster without complication (Primary Dx) Social History Tobacco Use Types [...] on file 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 Gender Identity Female 03/02/2020 4:27 PM 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 Sexual Orientation Straight 07/10/2019 11 :13 PM CDT documented as of this encounter Last Filed Vital Signs Vital Sign Reading Time Taken Comments Blood Pressure 119/76 06/09/2020 8:05 AM CDT pt taken Pulse 77 06/09/2020 8:05 AM CDT pt ta george Temperature - - Respiratory Rate - - Oxygen Saturation - - Inhaled Oxygen Concentration - - Weight 122.5 kg (270 lb) 06/09/2020 8:05 AM CDT pt taken Height 170.2 cm (5' 7.01 ) 06/09/2020 8:05 AM CD T Body Mass Index 42.28 06/09/2020 8:05 AM CDT documented in this encounter Patient Instructions * Patient Instructions* Daily Cruz MD - 06/09/2020 8:15 AM CDT Images from the original note were not included. Patient Education Shingles PROPERTY OFFICER: Shingles is a painful rash. Shingles is caused by the same virus that causes chickenpox (varicella-zoster virus). After you get chickenpox, the virus stays in your body for several years without causing any symptoms. Shingles occurs when the virus becomes active again. Once active, the virus will travel along a nerve to your skin and cause a rash. Common signs and symptoms include the following: Shingles often starts with pain in the back, chest, neck, or face. A rash then develops in the same area. The rash is usually found on only one side of the body. The rash may feel itchy or painful. It starts as red dots that become blisters filled with fluid. The blisters usually grow bigger, become filled with pus, and then crust over after a few days. You may also have any of the following: ?? Fatigue and muscle weakness ?? Pain when your skin is lightly touched ?? Headache ?? Fever ?? Eye pain when exposed to light Seek care immediately if: ?? You have painful, red, warm skin around the blisters, or the blisters drain pus. ?? Your neck is stiff or you have trouble moving it. ?? You have trouble moving your arms, legs, or face. ?? You have a seizure. ?? You have weakness in an arm or leg. ?? You become confused, or have difficulty speaking. ?? You have dizziness, a severe headache, or hearing or vision loss. Contact your healthcare provider if: ?? You feel weak or have a headache. ?? You have a cough, chills, or a fever. ?? You have abdominal pain or nausea, or you are vomiting. ?? Your rash becomes more itchy or painful. ?? Your rash spreads to other parts of your body. ?? Your pain worsens and does not go away even after you take medicine. ?? You have questions or concerns about your condition or care. Medicines: ?? Antiviral medicine helps decrease symptoms and healing time. They may also decrease your risk ofdeveloping nerve pain. You will need to start taking them within 3 days of the start of symptoms toprevent nerve pain. ?? Pain medicine may be prescribed or suggested by your healthcare provider. You may need NSAIDs, acetaminophen, or opioid medicine depending on how much pain you are in. Do not wait until the pain is severe before you take more pain medicine. ?? Topical anesthetics are used to numb the skin and decrease pain. They can be a cream, gel, spray, or patch. ?? Anticonvulsants decrease nerve pain and may help you sleep at night. ?? Antidepressants may be used to decrease nerve pain. Follow up with your healthcare provider as directed: Write down your questions so you remember to ask them during your visits. Self-care: Keep your rash clean and dry. Cover your rash with a bandage or clothing. Do not use bandages that stick to your skin. The sticky part may irritate your skin and make your rash last longer. Prevent the spread of shingles: The virus can be passed to a person who has never had chickenpox. This person may get chickenpox, but not shingles. You may pass the virus to others as long as you have a rash. The virus is spread by direct contact with the fluid from the blisters. Usually, you cannot spread the virus once the blisters dry up. Prevent shingles or another shingles outbreak: A vaccine may be given to help prevent shingles. Askfor more information about this vaccine. ?? 2017 [employer] Information is for End User's use only and may not be sold, redistributed or otherwise used for commercial purposes. All illustrations and images included in CareNotes?? are the copyrighted property of [employer]. or [employer]. The above information is an congressional district aide only. It is not intended as medical advice for individual conditions or treatments. Talk to your doctor, nurse or pharmacist before following any medical regimen to see if it is safe and effective for you. documented in this encounter Progress Notes * Daily Cruz MD - 06/09/2020 8:15 AM CDT Images from the original note were not included. Patient ID: Jud Leung is a 29 y.o. female. Visit Date: 06/09/2020 This was a telemedicine visit with Jud Leung alone which took place via real-time video connection with [employer]. During the visit, I was located in the office and the patient was located at home in the [facility]. The patient visit started at 9:56 and ended at 10:07. The patient has been informed that the visit may not be secure and acknowledged the information. I have explained the option of participating in a telephone or video visit during the [facility] to the patient. After being given an opportunity to ask questions about and discuss this type of visit, the patient verbally consented to proceeding with the telephone/video visit.The patient understands that this service replaces an office visit and they may be billed and/or responsible for any applicable copayments. Chief Complaint shingles HPI Went to the ER on 2 Monday's ago, because had developed a worsening rash that started in left underatm and spread into left side of back and into neck and left side of face. Was prescribed antiviral in The ER. The pain in head is much better. Current Outpatient Medications: ??? albuterol HFA (Ventolin HFA) 90 mcg/actuation inhaler, Inhale 2 puffs every 6 (six) hours as needed, Disp: , Rfl: ??? budesonide-formoteroL (Symbicort) 160-4.5 mcg/actuation inhaler, Inhale 2 puffs 2 (two) times aday Rinse mouth with water after use. Do not swallow., Disp: 1 Inhaler, Rfl: 2 ??? bumetanide (BUMEX) 1 mg tablet, Take 1 tablet (1 mg total) by mouth 2 (two) times a day, Disp: 60 tablet, Rfl: 0 ??? cariprazine (Vraylar) 3 mg capsule capsule, [...] 24 hours., Disp: 10 tablet, Rfl: 0 Review of Systems Constitutional: [...] Negative for arthralgias and back pain. Skin: shingles Neurological: Negative for dizziness and headaches. Hematological: Does not bruise/bleed easily. Psychiatric/Behavioral: Negative for behavioral problems and confusion. BP 119/76 Comment: pt taken Pulse 77 Comment: pt taken Ht 170.2 cm (5' 7.01 ) Wt 122.5 kg (270 lb) Comment: pt taken BMI 42.28 kg/m?? Body mass index is [...] Diagnoses and all orders for this visit: Herpes zoster without complication (Primary) Assessment & Plan: Healing well Done with antiviral Daily Cruz MD documented in this encounter Miscellaneous Notes * Assessment & Plan Note - Daily Cruz MD - 06/09/2020 10:06 AM CDT Associated Problem(s): Herpes zoster without complication (Resolved 02/22/2023) Healing well Done with antiviral documented in this encounter Plan of Treatment Not on file documented as of this encounter Visit Diagnoses Diagnosis Herpes zoster without complication- Primary documented in this encounter Discontinued Medications Medication Sig Discontinue Reason Start Date End Da te vilazodone (Viibryd) 10 mg tabletIndications:major depressive disorder Take 1 tablet (10 mg total) by mouth daily Therapy completed 05/20/2020 06/09/2020 documented as of this encounter Care Teams House Fellow Relationship Specialty Start Date End Date Daily Cruz MD PCP - General Family Medicine 08/01/19 03/03/21 documented as of this encounter
--- OUTSIDE RECORDS SUMMARY | 2024-02-21 19:39 | XMS_ITS | Encounter Summary ---
Author Organization [facility] Address [address] [facility] [address] [place] [id number] Care Team Providers Care Squash Centre Manager Name Role Phone Daily Cruz MD Primary Care Provider [phone] Reason for Visit * Reason Comments Sinus Problem sinus, head, facial pressure. Phone call on 07-28-20 to PCP and was referred to Respiratory clinic Encounter Details Date Type Department Care Team (Late st Contact Info) Description 08/05/2020 5:45 PM CDT Telemedicine [facility] After Hours Clinic [address] [address] Ally Rivero IS ARCHITECT [facility] [address] Acute recurrent maxillary sinusitis (Primary Dx); Hiccups Social History Tobacco Use Types Packs/Day Years [...] on file Legal Sex Female 3:37 PM STEREOPTICIAN Gender Identity Female 03/02/2020 4:27 PM STEREOPTICIAN Sexual Orientation Straight 07/10/2019 11 :13 PM CDT documented as of this encounter Last Filed Vital Signs Vital Sign Reading Time Taken Comments Blood Pressure - - Pulse - - Temperature - - Respiratory Rate - - Oxygen Saturation - - Inhaled Oxygen Concentration - - Weight 122.5 kg (270 lb) 08/05/2020 5:37 PM CDT Height 170.2 cm (5' 7.01 ) 08/05/2020 5:37 PM CD T Body Mass Index 42.28 08/05/2020 5:37 PM CDT documented in this encounter Patient Instructions * Patient Instructions* Ally Rivero NP - 08/05/2020 5:45 PM CDT Continue Augmentin as directed. Start Medrol Dosepak as directed and recommend plain Mucinex. Increase clear liquids, rest, and vitamin C in diet. For hiccupping, recommend avoidance of carbonated beverages and drinking through a straw. Follow-up with PCP if symptoms worsen, don't improve, or new symptoms develop. documented in this encounter Ordered Prescriptions Prescription Sig Dispense Quantity Refills Last Filled Start Date End Date methylPREDNISolone (MEDROL DOSEPACK) 4 mg DosepackIndication s:Acute recurrent maxillary sinusitis Take as directed on package. 21 tablet 08/05/2020 documented in this encounter Progress Notes * Ally Rivero NP - 08/05/2020 5:45 PM CDT Images from the original note were not included. Visit date: 08/05/2020 Patient ID: Jud Leung is a 29 y.o. female. Chief Complaint. Chief Complaint Patient presents with ??? Sinus Problem sinus, head, facial pressure. Phone call on 07-28-20 to PCP and was referred to Respiratory clinic HPI. Patient is a 29 y.o. female She is an established patient of Dr. Calero who is being seen for an acute problem that consists ofsinus pain/pressure, PND, resolving right ear pain, right upper tooth pain, right-sided nasal congestion, cough, headache, fatigue, and a decrease in appetite/energy level. She was seen in the Respiratory Clinic on 07/28/20, prescribed Augmentin for acute sinusitis with resolution of many of her symptoms. She states she is still taking the antibiotic, has 3-4 days left and has not missed any doses. She states she was also instructed to take Sudafed, took for 3 days without any perceived benefit.She has a history of sinus infections, states historically she was having a sinus infection monthly, reports having had an MRI, with her most recent sinus infection approximately 6 months ago. She denies chest tightness/pain, wheezing, shortness of breath, fever, chills, and sweats. She states she has also been hiccupping a lot lately, not-intractable, states the hiccups started prior to her sinus symptoms. This was a telemedicine visit with Jud Bandar [place] alone which took place via real-time video connection with [employer].??During the visit, I was located in the office and the patient was located at home in the state of [place].??The patient visit started at 5:44 PM and ended at 6:03 PM. My total encounter time on 08/05/2020 was 35 minutes which was spent in the activities [...] the COVID-19 public health emergency to the patient.??After being given an opportunity to ask questions about and discuss this type of visit, the patient verbally consented to proceeding with the telephone/video visit.??The patient understands that this service replaces an office visit and they may be billed and/or responsible for any applicable copayments. Past Medical History: Diagnosis Date ??? ADHD [...] and HTN ??? Hydrochlorothiazide Swollen tongue ??? Prasterone (Dhea) Other (See comments) and Shortness of breath ??? Dbzqihymgzn-Xejsjacp-Siutgmwhq Swelling Tongue swelling, blistering ??? Nickel Hives, [...] Depression Sister ??? Anesthesia problems Neg Hx Current Medications: Outpatient Encounter Medications as of 08/05/2020 Medication Sig Dispense Refill ??? albuterol HFA [...] TWICE A DAY 60 tablet 2 ??? diclofenac DR (VOLTAREN) 75 mg [...] doses in 24 hours. 10 tablet 0 ??? cariprazine (Vraylar) 3 mg capsule capsule Take 1 capsule (3 mg total) by mouth daily 30 capsule 5 ??? methylPREDNISolone (MEDROL DOSEPACK) 4 mg Dosepack Take as directed on package. 21 tablet 0 No facility-administered encounter medications on file as of 08/05/2020. Review of Systems: Review of Systems Constitutional: Positive for activity change, appetite change (decrease in appetite) and fatigue. Negative for chills, diaphoresis and fever. HENT: Positive for congestion (congestion in the morning on the right side), dental problem (sensitivity to cold on the right side, top and back) and postnasal drip (improving, mostly in the morning). Negative for ear discharge, ear pain (right ear pain has resolved), rhinorrhea, sinus pressure, sinus pain, sneezing, sore throat, tinnitus, trouble swallowing and voice change. Respiratory: Positive for cough (persistent cough since COVID in November 2019, a little worse with the current symptoms, thinks it may be related to PND). Negative for chest tightness, shortness of breath and wheezing. Cardiovascular: Negative for chest pain. Gastrointestinal: Negative for abdominal pain, diarrhea, nausea and vomiting. Musculoskeletal: Negative for myalgias. Skin: Negative for rash. Neurological: Positive for headaches. Negative for dizziness, weakness and light-headedness. Psychiatric/Behavioral: Positive for sleep disturbance (not sleeping well at night). Ht 170.2 cm (5' 7.01 ) Wt 122.5 kg (270 lb) BMI 42.28 kg/m?? Physical Exam: Physical Exam Vitals (Height, weight, and BMI reviewed.) and nursing note reviewed. Constitutional: General: She is not in acute distress. Appearance: Normal appearance. She is not ill-appearing, toxic-appearing or diaphoretic. HENT: Head: Normocephalic and atraumatic. Pulmonary: Effort: Pulmonary effort is normal. Comments: No respiratory distress noted during visit. Neurological: Mental Status: She is alert and oriented to person, place, and time. Psychiatric: Mood and Affect: Mood normal. Behavior: Behavior normal. Thought Content: Thought content normal. Procedures Assessment & Plan: Diagnoses and all orders for this visit: Acute recurrent maxillary sinusitis (Primary) Assessment & Plan: Advised to continue Augmentin as directed. Started on a Medrol Dosepak as directed and recommended plain Mucinex. Instructed to increase clear liquids, rest, and vitamin C in diet. Recommended follow-up with PCP if symptoms worsen, don't improve, or new symptoms develop. Orders: - methylPREDNISolone (MEDROL DOSEPACK) 4 mg Dosepack; Take as directed on package. Heroncups Assessment & Plan: Acute, recurrent-recommended avoidance of carbonated beverages and drinking through a straw. Advised to follow-up with PCP if symptoms worsen, don't improve, or new symptoms develop. Body mass index is 42.28 kg/m??. Ally Rivero NP Cosigned by Coleman Easton MD at 08/06/2020 7:32 AM CDT documented in this encounter Miscellaneous Notes * Assessment & Plan Note - Ally Rivero NP - 08/05/2020 6:16 PM CDTAssociated Problem(s): Hiccups (Deleted) Acute, recurrent-recommended avoidance of carbonated beverages and drinking through a straw. Advised to follow-up with PCP if symptoms worsen, don't improve, or new symptoms develop. * Assessment & Plan Note - Ally Rivero NP - 08/05/2020 6:15 PM CDTAssociated Problem(s): Acute recurrent maxillary sinusitis (Resolved 02/22/2023) Advised to continue Augmentin as directed. Started on a Medrol Dosepak as directed and recommended plain Mucinex. Instructed to increase clear liquids, rest, and vitamin C in diet. Recommended follow-up with PCP if symptoms worsen, don't improve, or new symptoms develop. documented in this encounter Plan of Treatment Not on file documented as of this encounter Visit Diagnoses Diagnosis Acute recurrent maxillary sinusitis- Primary Hiccups documented in this encounter Care Teams Squash Centre Manager Relationship Specialty Start Date End Date Daily Cruz MD PCP - General Family Medicine 08/01/19 03/03/21 documented as of this encounter
--- OUTSIDE RECORDS SUMMARY | 2024-02-21 19:39 | XMS_ITS | Encounter Summary ---
Author Organization [facility] Address [address] [address] Care Team Providers Care Licensed Sales Producer Name Role Phone Daily Cruz MD Primary Care Provider [phone] Reason for Referral * Diagnostic Imaging (Routine) - Closed Specialty Diagnoses / Procedures Referred By Matt t Referred To Contact Diagnoses Intractable chronic migraine without aura and with status migrainosus Pseudotumor cerebri Procedures MRI Brain WO Contrast Daily Cruz MD Phone: tel: fax: [address] [phone] Referral ID Status Reason Start Date Expiration Date Visits Re quested Visits Authorized [id number] Closed 02/24/2020 08/22/2020 1 1 NURSERY * Diagnostic Imaging (Routine) - Closed Specialty Diagnoses / Procedures Referred By Contfabian t Referred To Contact Diagnoses Acute pain of left knee Procedures XR Knee Left 4+ Vw Daily Cruz MD Phone: tel: fax: [address] [phone] Referral ID Status Reason Start Date Expiration Date Visits Re quested Visits Authorized [id number] Closed 01/30/2020 02/28/2021 1 1 NURSERY * Diagnostic Imaging (Routine) - Closed Specialty Diagnoses / Procedures Referred By Contac t Referred To Contact Diagnoses Left hip pain Procedures XR Hip Left 2+ Vw Daily Cruz MD Phone: tel: fax: [facility] [address] [place] [phone] Referral ID Status Reason Start Date Expiration Date Visits Re quested Visits Authorized [id number] Closed 01/30/2020 02/28/2021 1 1 NURSERY Encounter Details Date Type Department Care Team (Late st Contact Info) Description 01/29/2020 11:15 AM RN NURSERY Telemedicine [facility] Family Medicine [address] [facility] [address] [place] [address] Daily Cruz MD [address] [place] [id number] SOB (shortness of breath) (Primary Dx); Intractable chronic migraine without aura and with status migrainosus; Pseudotumor cerebri; Chronic bilateral low back pain, unspecified whether sciatica present; Left hip pain; Acute pain of left knee; Pustular rash Social History Tobacco Use Types Packs/Day Years [...] file Legal Sex Female 3:37 PM RN NURSERY Gender Identity Female 03/02/2020 4:27 PM RN NURSERY Sexual Orientation Straight 07/10/2019 11 :13 PM CDT documented as of this encounter Last Filed Vital Signs Vital Sign Reading Time Taken Comments Blood Pressure 124/82 01/29/2020 11:09 AM RN NURSERY at home Pulse 93 01/29/2020 11:09 AM RN NURSERY at h ome Temperature - - Respiratory Rate - - Oxygen Saturation 94% 01/29/2020 11:09 AM RN NURSERY at home Inhaled Oxygen Concentration - - Weight 122.5 kg (270 lb) 01/29/2020 11:09 AM RN NURSERY at home Height 170.2 cm (5' 7.01 ) 01/29/2020 11:09 AM Nell SLADE Body Mass Index 42.28 01/29/2020 11:09 AM RN NURSERY documented in this encounter Ordered Prescriptions Prescription Sig Dispense Quantity Refills Last Filled Start Date End Date doxycycline (VIBRAMYCIN) 100 mg capsuleIndications :Pustular rash Take 1 tablet/capsu le (100 mg total) by mouth 2 (two) times a day for 10 days 20 tablet/capsule 01/29/2020 02/08/2020 fremanezumab-vfrm (Ajovy Autoinjector) 225 mg/1.5 mL auto-injectorIndic ations:Intractable chronic migraine without aura and with status migrainosus Inject 225 mg under the skin every 30 (thirty) days 1 Syringe 2 01/29/2020 03/04/2020 documented in this encounter Progress Notes * Daily Cruz MD - 01/29/2020 11:15 AM CST Images from the original note were not included. Patient ID: Jud Thomas is a 29 y.o. female. Visit Date: 01/29/2020 This was a telemedicine visit with Jud Thomsa alone which took place via real-time video connection with Zoom. During the visit, I was located at home and [facility] The patient visit started at 11:22 and ended at 11:38. . The patient has been informed that [...] applicable copayments. Daily Cruz MD Chief Complaint Low back pain Left hip pain migraine HPI C/o low back pain, left hip pain, left knee pain. No injury C/o pustular rash H/o migraines - is worsening to almost daily Has h/o pseudotumor cerebri SOB from recent COVID infection stable with symbicort Current Outpatient Medications: ??? albuterol HFA (Ventolin HFA) 90 mcg/actuation inhaler, Inhale 2 puffs every 6 (six) hours as needed, Disp: , Rfl: ??? fluticasone propionate (FLONASE) 50 mcg/actuation nasal spray, Administer 2 sprays into each nostril daily, Disp: 16 g, Rfl: 0 ??? levocetirizine (XYZAL) 5 mg tablet, Take 1 tablet (5 mg total) by mouth daily, Disp: 30 tablet,Rfl: 0 ??? levonorgestreL (KYLEENA) IUD, 1 each by intrauterine route once , Disp: , Rfl: ??? fremanezumab-vfrm (Ajovy Autoinjector) 225 mg/1.5 mL auto-injector, Inject 225 mg under the skin every 30 (thirty) days, Disp: 1 Syringe, Rfl: 2 ??? Symbicort 80-4.5 mcg/actuation inhaler, INHALE 2 PUFFS 2 (TWO) TIMES A DAY RINSE MOUTH WITH WATER AFTER USE. DO NOT SWALLOW., Disp: 10.2 Inhaler, Rfl: 1 Review of Systems Constitutional: Negative for fatigue and fever. HENT: Negative for congestion, ear pain, nosebleeds and rhinorrhea. Eyes: Negative for pain and redness. Respiratory: Positive for shortness of breath. Negative for cough. Cardiovascular: Negative for chest pain and palpitations. Gastrointestinal: Negative for abdominal pain and diarrhea. Endocrine: Negative for cold intolerance. Genitourinary: Negative for dysuria and frequency. Musculoskeletal: Positive for back pain. Negative for arthralgias. Hip pain, knee pain Skin: Positive for rash. Neurological: Positive for headaches. Negative for dizziness. Hematological: Does not bruise/bleed easily. Psychiatric/Behavioral: Negative for behavioral problems and confusion. BP 124/82 (BP Location: Left arm, Patient Position: Sitting) Comment: at home Comment (BP Location): at home Comment (Patient Position): at home Pulse 93 Comment: at home Ht 170.2 cm (5' 7.01 ) Wt 122.5 kg (270 lb) Comment: at home SpO2 94% Comment: at home BMI 42.28 kg/m?? Body mass index is 42.28 kg/m??. Physical Exam Constitutional: Appearance: Normal appearance. HENT: Head: Normocephalic and atraumatic. Nose: Nose normal. Eyes: Extraocular Movements: Extraocular movements intact. Conjunctiva/sclera: Conjunctivae normal. Neck: Musculoskeletal: Normal range of motion. Pulmonary: Effort: Pulmonary effort is normal. Skin: Findings: Rash present. Neurological: Mental Status: She is alert and oriented to person, place, and time. Psychiatric: Mood and Affect: Mood normal. Behavior: Behavior normal. Diagnoses and all orders for this visit: SOB (shortness of breath) (Primary) Assessment & Plan: Residual from COVID Cont symbicort Intractable chronic migraine without aura and with status migrainosus Assessment & Plan: Uncontrolled Start ajovy Orders: - fremanezumab-vfrm (Ajovy Autoinjector) 225 mg/1.5 mL auto-injector; Inject 225 mg under the skin every 30 (thirty) days Pseudotumor cerebri Assessment & Plan: With increased headaches, Get MRI brain Chronic bilateral low back pain, unspecified whether sciatica present Assessment & Plan: New Order lumbar xray Orders: - XR Spine Lumbar Complete 4 Or More; Future Left hip pain Assessment & Plan: New Order hip xray Orders: - XR Hip Left 2+ Vw; Future Acute pain of left knee Assessment & Plan: New Order knee xray Orders: - XR Knee Left 4+ Vw; Future Pustular rash Assessment & Plan: New Order Doxycycline Orders: - doxycycline (VIBRAMYCIN) 100 mg capsule; Take 1 tablet/capsule (100 mg total) by mouth 2 (two) times a day for 10 days Daily Cruz MD NURSERY documented in this encounter Miscellaneous Notes * Assessment & Plan Note - Daily Cruz MD - 02/17/2020 4:52 AM RN NURSERY Associated Problem(s): Pustular rash (Resolved 02/22/2023) New Order Doxycycline NURSERY * Assessment & Plan Note - Daily Cruz MD - 02/17/2020 4:51 AM RN NURSERY Associated Problem(s): Acute pain of left knee (Resolved 02/22/2023) New Order knee xray NURSERY * Assessment & Plan Note - Daily Cruz MD - 02/17/2020 4:51 AM RN NURSERY Associated Problem(s): Left hip pain New Order hip xray NURSERY * Assessment & Plan Note - Daily Cruz MD - 02/17/2020 4:51 AM RN NURSERY Associated Problem(s): Chronic bilateral low back pain New Order lumbar xray NURSERY * Assessment & Plan Note - Daily Cruz MD - 01/29/2020 11:36 AM RN NURSERY Associated Problem(s): SOB (shortness of breath) (Deleted) Residual from COVID Cont symbicort NURSERY * Assessment & Plan Note - Daily Cruz MD - 01/29/2020 11:36 AM RN NURSERY Associated Problem(s): Chronic migraine without aura without status migrainosus, not intractable Uncontrolled Start ajovy NURSERY * Assessment & Plan Note - Daily Cruz MD - 01/29/2020 11:35 AM RN NURSERY Associated Problem(s): Pseudotumor cerebri With increased headaches, Get MRI brain NURSERY NURSERY * Addendum Note - Julia Griffith RN - 01/29/2020 11:15 AM CSTAddended by: JULIA GRIFFITH on: 02/17/2020 09:53 AM Modules accepted: Orders NURSERY documented in this encounter Plan of Treatment Not on file documented as of this encounter Results * XR Knee Left 4+ Vw (02/28/2020 11:52 AM RN NURSERY) Anatomical Region Laterality Modality Lower Extremities, Knee Left Radiogra phic Imaging 02/28/2020 12:4 2 PM RN NURSERY Narrative 02/28/2020 12:43 PM RN NURSERY Patient Name: JUD THOMAS ?Ordering Dr: Daily Cruz MD ?? D.O.B: 1990 ? Exam Date: 02/28/20 ?? 1152 ?? Age: 29 ?Sex: Female ? MR#: [id number] ?? Loc: ? RADIOLOGY REPORT ?? Order #[id number] ?? Radiology ? Knee LT 4 View [...] 12:43 PM ?? T: ? Report ID: [id number] ?? Reading Location: ??[id number] ? REPORT ELECTRONICALLY SIGNED IN OTHER VENDOR SYSTEM ?? Resulting Agency Comment O Procedure Note Iker Stevenson MD - 02/28/2020 Patient Name: JUD THOMAS Dr: Daily Cruz MD D.O.B: 1990 Exam Date: 02/28/20 1152 Age: 29 Sex: Female MR#: [id number] Loc: RADIOLOGY REPORT Order #[id number] Radiology Knee LT 4 View Min (Special) [...] Iker Stevenson M.D. AG T: Report ID: [id number] Reading Location: [place] [address] REPORT ELECTRONICALLY SIGNED IN OTHER VENDOR SYSTEM us Daily Cruz MD IMG XR PROCEDURES Final R esult * XR Hip Left 2+ Vw (02/28/2020 11:52 AM RN NURSERY) Anatomical Region Laterality Modality Lower Extremities, Hip, Pelvis Left R adiographic Imaging 02/28/2020 12:4 3 PM RN NURSERY Narrative 02/28/2020 12:44 PM RN NURSERY Patient Name: JUD THOMAS ?Ordering Dr: Daily Cruz MD ?? D.O.B: 1990 ? Exam Date: 02/28/20 ?? 1152 ?? Age: 29 ?Sex: Female ? MR#: [id number] ?? Loc: ? RADIOLOGY REPORT ?? Order #[id number] ?? Radiology ? Hip LT 2 View [...] 12:44 PM ?? T: ? Report ID: [id number] ?? Reading Location: ??[id number] ? REPORT ELECTRONICALLY SIGNED IN OTHER VENDOR SYSTEM ?? Resulting Agency Comment O Procedure Note Iker Stevenson MD - 02/28/2020 Patient Name: JUD THOMAS Dr: Daily Cruz MD D.O.B: 1990 Exam Date: 02/28/20 1152 Age: 29 Sex: Female MR#: [id number] Loc: RADIOLOGY REPORT Order #[id number] Radiology Hip LT 2 View Min Signed [...] Iker Stevenson M.D. AG T: Report ID: [id number] Reading Location: [id number] REPORT ELECTRONICALLY SIGNED IN OTHER VENDOR SYSTEM us Daily Cruz MD IMG XR PROCEDURES Final R esult * MRI Brain WO Contrast (02/28/2020 11:03 AM RN NURSERY) Anatomical Region Laterality Modality Head and Neck N/A Magnetic Resonan ce 02/28/2020 11:5 2 AM RN NURSERY Narrative 02/28/2020 11:55 AM RN NURSERY Patient Name: JUD THOMAS ?Ordering Dr: Daily Cruz MD ?? D.O.B: 1990 ? Exam Date: 02/28/20 ?? 1103 ?? Age: 29 ?Sex: Female ? MR#: [id number] ?? Loc: ? RADIOLOGY REPORT ?? Order #[id number] ?? Magnetic Resonance Imaging ? MRI Brain [...] 11:55 AM ?? T: ? Report ID: [id number] ?? Reading Location: ??[id number] ? REPORT ELECTRONICALLY SIGNED IN OTHER VENDOR SYSTEM ?? Resulting Agency Comment O Procedure Note Loren, Ash Eros, MD - 02/28/2020 Patient Name: WILLIAMJUDHAROON Frankel Dr: Daily Cruz MD DSydneyO.B: 1990 Exam Date: 02/28/20 1103 Age: 29 Sex: Female MR#: [id number] Loc: RADIOLOGY REPORT Order #[id number] Magnetic Resonance Imaging MRI Brain W/O Contrast Signed EXAM DESCRIPTION: MRI BRAIN W/O CONTRAST REASON FOR STUDY: Chronic headaches, or worse since COVID-19 diagnosis November 2019. No cancer history. No intracranial surgery. TECHNIQUE: Multiplanar imaging includes non-contrasted T1, T2, FLAIR,and diffusion with ADC map sequences. Additional sequence(s) sensitive A V.E.T.S.c.a.r.e. products. Images stored on PACS. COMPARISON: None [...] signed by Ash DUNN T: Report ID: [id number] Reading Location: [id number] REPORT ELECTRONICALLY SIGNED IN OTHER VENDOR SYSTEM Daily Cruz MD [facility] [place] MRI PROCEDURES Final Result documented in this encounter Visit Diagnoses Diagnosis SOB (shortness of breath)- Primary Shortness of breath Intractable chronic migraine without aura and with status migrainosus Pseudotumor cerebri Benign intracranial hypertension Chronic bilateral low back pain, unspecified whether sciatica present Left hip pain Pain in joint, pelvic region and thigh Acute pain of left knee Pustular rash Rash and other nonspecific skin eruption Intractable chronic migraine without aura and with status migrainosus Pseudotumor cerebri Benign intracranial hypertension Acute pain of left knee Left hip pain Pain in joint, pelvic region and thigh Right knee pain, unspecified chronicity Right hip pain Pain in joint, pelvic region and thigh documented in this encounter Discontinued Medications Medication Sig Discontinue Reason Start Date End Da te famotidine (PEPCID) 20 mg tablet Therapy completed 12/22/2019 01/29/2020 documented as of this encounter Additional Health Concerns Infection Onset Date Last Indicated Resolved Time COVID: Recovered Comment:Added based on recent COVID infection. 01/02/2020 01/22/2020 05/01/2020 3:05 AM C DT documented as of this encounter Care Teams Licensed Sales Producer Relationship Specialty Start Date End Date Daily Cruz MD PCP - General Family Medicine 08/01/19 03/03/21 documented as of this encounter
--- OUTSIDE RECORDS SUMMARY | 2024-02-21 19:39 | XMS_ITS | Encounter Summary ---
Author Organization [facility] Address [address] [place] [address] Care Team Providers Care Relations Liaison Name Role Phone Daily Cruz MD Primary Care Provider [phone] Encounter Details Date Type Department Care Team (Late st Contact Info) Description 03/04/2020 9:00 AM TICKET BROKER Telemedicine [facility] Family Medicine [address] [place] [address] Daily Curz MD [address] [place] [address] [address] [place] [address] Chronic pain of both knees (Primary Dx); Lumbar degenerative disc disease; Intractable chronic migraine without aura and with status migrainosus; Chronic pain of both hips Social History Tobacco Use Types Packs/Day Years [...] on file Legal Sex Female 3:37 PM TICKET BROKER Gender Identity Female 03/02/2020 4:27 PM TICKET BROKER Sexual Orientation Straight 07/10/2019 11 :13 PM CDT documented as of this encounter Last Filed Vital Signs Vital Sign Reading Time Taken Comments Blood Pressure 117/75 03/04/2020 8:49 AM TICKET BROKER per pt Pulse 75 03/04/2020 8:49 AM TICKET BROKER per p t Temperature - - Respiratory Rate - - Oxygen Saturation 97% 03/04/2020 8:49 AM TICKET BROKER per pt Inhaled Oxygen Concentration - - Weight 122.5 kg (270 lb) 03/04/2020 8:49 AM TICKET BROKER Height 170.2 cm (5' 7 ) 03/04/2020 8:49 AM TICKET BROKER Body Mass Index 42.29 03/04/2020 8:49 AM TICKET BROKER documented in this encounter Patient Instructions * Patient Instructions* Daily Cruz MD - 03/04/2020 9:00 AM TICKET BROKER Images from the original note were not included. Patient Education Knee Pain POLICE ACADEMY PROGRAM COORDINATOR: Knee pain may start suddenly, or it [...] ask them during your visits. ?? 2017 [employer] Information is for End User's use only and may not be sold, redistributed or otherwise used for commercial purposes. All illustrations and images included in CareNotes?? are the copyrighted property of [employer], [employer]). or [facility]. The above information is an paid internship only. It is not intended as medical advice for individual conditions or treatments. Talk to your doctor, nurse or pharmacist before following any medical regimen to see if it is safe and effective for you. 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 Patient ID: Jud Thomas is a 29 y.o. female. Visit Date: 03/04/2020 This was a telemedicine visit with Jud Thomas alone which took place via real-time video connection with [employer] During the visit, I was located at home and the patient was located at home in the [facility]. The patient visit started at 9:03 and ended at 9:29. The patient has been informed that the [...] applicable copayments. Daily Cruz MD Chief Complaint Knee pain Hip pain migraine HPI Patient still having worsening low back pain going into hip and legs and gettng numbness into legs.Also, getting swelling into knees.Although xray was normal, patient reports that she has had MRI lumbar at [facility] that shows lumbar degenerative disc disease Still getting almost daily migrainous headache. Was unable to get Ajovy covered. Will look into getting Emgality approved Current Outpatient Medications: ??? albuterol HFA (Ventolin [...] route once , Disp: , Rfl: ??? Symbicort 80-4.5 mcg/actuation inhaler, INHALE 2 PUFFS 2 (TWO) TIMES A DAY RINSE MOUTH WITH WATER AFTER USE. DO NOT SWALLOW., Disp: 10.2 Inhaler, Rfl: 1 ??? galcanezumab-gnlm (Emgality Pen) 120 mg/mL pen injector, Inject 120 mg under the skin every 30 (thirty) days, Disp: 1 Syringe, Rfl: 0 Review of Systems Constitutional: Negative [...] Negative for arthralgias. Hip pain, knee pain Neurological: Positive for headaches. Negative for dizziness. Hematological: Does not bruise/bleed easily. Psychiatric/Behavioral: Negative for behavioral problems and confusion. BP 117/75 Comment: per pt Pulse 75 Comment: per pt Ht 170.2 cm (5' 7 ) Wt 122.5 kg (270 lb) SpO2 97% Comment: per pt BMI 42.29 kg/m?? Body mass index is [...] 02/28/20 1152 Age: 29 Sex: Female MR#: [id number] Loc: ?? RADIOLOGY REPORT Order #[id number] Radiology Knee RT 4 View Min (Special) Signed EXAM DESCRIPTION: Knee RT 4 View Min (Special) REASON FOR STUDY: Bilateral knee pain x7 months TECHNIQUE: 4 radiographic views acquired of the right knee. COMPARISON: None FINDINGS: Normal bony alignment. No acute fracture seen. Joint spaces appear normal. No significant effusion. IMPRESSION: No acute osseous abnormality Patient Name: JUD THOMAS Ordering Dr: Daily Cruz MD D.O.B: 1990 Exam Date: 02/28/20 1153 Age: 29 Sex: Female MR#: [id number] Loc: [facility]#: [id number] ?? RADIOLOGY REPORT Order #[id number] Radiology Lumbar Spine Min 4 Views Signed EXAM DESCRIPTION: Lumbar Spine Min 4 Views REASON FOR STUDY: Lower back pain for 1-2 years TECHNIQUE: Five radiographic views acquired of the lumbar spine. COMPARISON: None FINDINGS: Straightening of the lumbar spine. Vertebral body heights are normal without compression fracture. No significant degenerative disc disease. No significant facet osteoarthritis. IMPRESSION: 1. No gross acute osseous abnormality of the lumbar spine Diagnoses and all orders for this visit: Chronic pain of both knees (Primary) Assessment & Plan: Worsening To start PT Orders: - Ambulatory referral order to Physical Therapy -; Future Lumbar degenerative disc disease Assessment & Plan: To get MRI report from [facility] Worsening To start PT Orders: - Ambulatory referral order to Physical Therapy -; Future Intractable chronic migraine without aura and with status migrainosus Assessment & Plan: Uncontrolled Start emgality Orders: - galcanezumab-gnlm (Emgality Pen) 120 mg/mL pen injector; Inject 120 mg under the skin every 30 (thirty) days Chronic pain of both hips Assessment & Plan: Worsening To start PT Orders: - Ambulatory referral order to Physical Therapy -; Future Daily Cruz MD ET BROKER documented in this encounter Miscellaneous Notes * Assessment & Plan Note - Daily Crzu MD - 03/05/2020 4:23 AM TICKET BROKER Associated Problem(s): Chronic migraine without aura without status migrainosus, not intractable Uncontrolled Start emgality ET BROKER * Assessment & Plan Note - Daily Cruz MD - 03/05/2020 4:22 AM TICKET BROKER Associated Problem(s): Chronic pain of both knees Worsening To start PT ET BROKER * Assessment & Plan Note - Daily Cruz MD - 03/05/2020 4:22 AM TICKET BROKER Associated Problem(s): Chronic pain of both hips Worsening To start PT ET BROKER * Assessment & Plan Note - Daily Cruz MD - 03/04/2020 9:18 AM TICKET BROKER Associated Problem(s): Lumbar degenerative disc disease To get MRI report from [facility] Worsening To start PT ET BROKER ET BROKER documented in this encounter Plan of Treatment Not on file documented as of this encounter Visit Diagnoses Diagnosis Chronic pain of both knees- Primary Lumbar degenerative disc disease Intractable chronic migraine without aura and with status migrainosus Chronic pain of both hips documented in this encounter Discontinued Medications Medication Sig Discontinue Reason Start Date End Da te fremanezumab-vfrm (Ajovy Autoinjector) 225 mg/1.5 mL auto-injectorIndications: Intractable chronic migraine without aura and with status migrainosus Inject 225 mg under the skin every 30 (thirty) days Formulary change 01/29/2020 03/04/2020 documented as of this encounter Additional Health Concerns Infection Onset Date Last Indicated Resolved Time COVID: Recovered Comment:Added based on recent COVID infection. 01/02/2020 01/22/2020 05/01/2020 3:05 AM C DT documented as of this encounter Care Teams Relations Liaison Relationship Specialty Start Date End Date Daily Cruz MD PCP - General Family Medicine 08/01/19 03/03/21 documented as of this encounter
--- OUTSIDE RECORDS SUMMARY | 2024-02-21 19:39 | XMS_ITS | Encounter Summary ---
Author Organization [facility] Address [address] [place] [address] Care Team Providers Care Real Estate Associate Name Role Phone Daily Cruz MD Primary Care Provider [phone] Reason for Visit * Reason Comments Follow-up Encounter Details Date Type Department Care Team (Late st Contact Info) Description 08/19/2020 10:30 AM CDT Telemedicine [facility] Family Medicine [address] [place] [id number] Daily Cruz MD [address] [place] [id number] Vitamin D deficiency (Primary Dx); Chronic pain of both knees; Leg cramping; Fluid retention; Arthralgia, unspecified joint; Well adult exam; Anxiety and depression Social History Tobacco Use Types Packs/Day Years Used Date Smoking Tobacco: Never Smokeless Tobacco: Never Alcohol Use Standard Drinks/Week Comments Not Currently 0 (1 standard drink = 0.6 oz pure alcohol) Maybe a drink every few months AUDIT-C Answer Date Recorded Q1: How often do you have a drink containing alc ohol? Monthly or less 08/19/2020 Q2: How many drinks containi ng alcohol do you have on a typical day when you are drinking? 1 or 2 08/19/2020 Q3: How often do you have si x or more drinks on one occasion? 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 Gender Identity Female 03/02/2020 4:27 PM WIDE PIECE GOODS INSPECTOR Sexual Orientation Straight 07/10/2019 11 :13 PM CDT documented as of this encounter Last Filed Vital Signs Vital Sign Reading Time Taken Comments Blood Pressure - - Pulse - - Temperature - - Respiratory Rate - - Oxygen Saturation - - Inhaled Oxygen Concentration - - Weight 124.7 kg (275 lb) 08/19/2020 10:22 AM CDT verbal Height 170.2 cm (5' 7 ) 08/19/2020 10:22 AM CDT Body Mass Index 43.07 08/19/2020 10:22 AM CDT documented in this encounter Patient Instructions * Patient Instructions* Daily Cruz MD - 08/19/2020 10:30 AM CDT Images from the original note were not included. Patient Education Knee Pain CONE PICKER: Knee pain may start suddenly, or it [...] Elevate your knee while you are sitting or lying down. Prop your leg on pillows to [...] ask them during your visits. ?? 2017 [employer] Information is for End User's use only and may not be sold, redistributed or otherwise used for commercial purposes. All illustrations and images included in CareNotes?? are the copyrighted property of [employer]. or [employer]. The above information is an visual training aide only. It is not intended as medical advice for individual conditions or treatments. Talk to your doctor, nurse or pharmacist before following any medical regimen to see if it is safe and effective for you. documented in this encounter Ordered Prescriptions Prescription Sig Dispense Quantity Refills Last Filled Start Date End Date pregabalin (LYRICA) 75 mg capsuleIndications :Leg cramping Take 1 capsule (75 mg total) by mouth 2 (two) times a day 60 capsule 5 08/19/2020 2 documented in this encounter Progress Notes * Daily Cruz MD - 08/19/2020 10:30 AM CDT Images from the original note were not included. Patient ID: Jud Leung is a 29 y.o. female. Visit Date: 08/19/2020 This was a telemedicine visit with Jud Leung alone which took place via real-time video connection with [employer]. During the visit, I was located in the office and the patient was located at home in the [facility]. The patient visit started at 11:12 and ended at 11:27. The patient has been informed that the [...] responsible for any applicable copayments. Chief Complaint Arthralgia Anxiety/depression Leg cramping HPI Patient c/o leg cramping that is worsening. Has taken gabapentin before that didn't help C/o Her anxiety/depression worsening again. Would like to see psychiatrist C/o diffuse arthralgias - She would like to be tested for metals H/o Vitamin D deficiency - stable H/o knee pain - stable. Tolerating diclofenac H/o Fluid Retention - stable. Tolerating bumex Current Outpatient Medications: ??? albuterol HFA (Ventolin [...] DAY, Disp: 60 tablet, Rfl: 2 ??? fluticasone propionate (FLONASE) 50 mcg/actuation nasal [...] route once , Disp: , Rfl: ??? ubrogepant (Ubrelvy) 50 mg tablet, Take 1 tablet (50 mg total) by mouth once as needed for migraine May repeat dose once in 2 hours if no relief. Do not exceed 2 doses in 24 hours., Disp: 10 tablet, Rfl: 0 ??? diclofenac DR (VOLTAREN) 75 mg EC tablet, TAKE 1 TABLET BY MOUTH TWICE A DAY NEEDED FOR PAIN, Disp: 60 tablet, Rfl: 1 ??? pregabalin (LYRICA) 75 mg capsule, Take 1 capsule (75 mg total) by mouth 2 (two) times a day, Disp: 60 capsule, Rfl: 5 ??? SUMAtriptan (IMITREX) 50 mg tablet, TAKE [...] Positive for arthralgias. Negative for back pain. Knee pain, leg pain Neurological: Negative for dizziness and headaches. Hematological: Does not bruise/bleed easily. Psychiatric/Behavioral: Negative for behavioral problems and confusion. The patient is nervous/anxious. Depression Ht 170.2 cm (5' 7 ) Wt 124.7 kg (275 lb) Comment: verbal BMI 43.07 kg/m?? Body mass index is [...] Diagnoses and all orders for this visit: Vitamin D deficiency (Primary) Assessment & Plan: Stable Cont OTC supplement Orders: - Vitamin D 25 hydroxy; Future Chronic pain of both knees Assessment & Plan: Stable Cont diclofenac Orders: - TSH reflex to free T4; Future - Comprehensive metabolic panel; Future - CBC with auto differential; Future - Heavy metals, blood, quantitative; Future Leg cramping Assessment & Plan: Worsening Has been on gabapentin before and didn't help Start lyrica Orders: - pregabalin (LYRICA) 75 mg capsule; Take 1 capsule (75 mg total) by mouth 2 (two) times a day - TSH reflex to free T4; Future - Comprehensive metabolic panel; Future - Lipid panel; Future - CBC with auto differential; Future - Heavy metals, blood, quantitative; Future Fluid retention Assessment & Plan: Stable Cont bumex Orders: - TSH reflex to free T4; Future - Comprehensive metabolic panel; Future - Lipid panel; Future - CBC with auto differential; Future - Heavy metals, blood, quantitative; Future Arthralgia, unspecified joint Assessment & Plan: Worsening Order lab testing for metals Orders: - TSH reflex to free T4; Future - Comprehensive metabolic panel; Future - Lipid panel; Future - CBC with auto differential; Future - Heavy metals, blood, quantitative; Future Well adult exam - TSH reflex to free T4; Future - Comprehensive metabolic panel; Future - Lipid panel; Future - CBC with auto differential; Future - Heavy metals, blood, quantitative; Future Anxiety and depression Assessment & Plan: Worsening Refer to psychiatry Orders: - Ambulatory referral to Psychiatry; Future Daily Cruz MD documented in this encounter Miscellaneous Notes * Assessment & Plan Note - Daily Cruz MD - 08/25/2020 4:35 PM CDT Associated Problem(s): Fluid retention Stable Cont bumex * Assessment & Plan Note - Daily Cruz MD - 08/25/2020 4:35 PM CDT Associated Problem(s): Chronic pain of both knees Stable Cont diclofenac * Assessment & Plan Note - Daily Cruz MD - 08/25/2020 4:34 PM CDT Associated Problem(s): Arthralgia Worsening Order lab testing for metals * Assessment & Plan Note - Daiyl Cruz MD - 08/25/2020 4:34 PM CDT Associated Problem(s): Vitamin D deficiency Stable Cont OTC supplement * Assessment & Plan Note - Daily Cruz MD - 08/19/2020 11:26 AM CDT Associated Problem(s): Anxiety and depression Worsening Refer to psychiatry * Assessment & Plan Note - Daily Cruz MD - 08/19/2020 11:22 AM CDT Associated Problem(s): Leg cramping Worsening Has been on gabapentin before and didn't help Start lyrica documented in this encounter Plan of Treatment Not on file documented as of this encounter Visit Diagnoses Diagnosis Vitamin D deficiency- Primary Chronic pain of both knees Leg cramping Fluid retention Fluid overload Arthralgia, unspecified joint Well adult exam Routine general medical examination at a health care facility Anxiety and depression documented in this encounter Discontinued Medications Medication Sig Discontinue Reason Start Date End Da te methylPREDNISolone (MEDROL DOSEPACK) 4 mg DosepackIndications:Acu te recurrent maxillary sinusitis Take as directed on package. Therapy completed 08/05/2020 08/19/2020 cariprazine (Vraylar) 3 mg capsule capsuleIndications:Anxi ety and depression Take 1 capsule (3 mg total) by mouth daily Therapy completed 04/22/2020 08/19/2020 documented as of this encounter Care Teams Real Estate Associate Relationship Specialty Start Date End Date Daily Cruz MD PCP - General Family Medicine 08/01/19 03/03/21 documented as of this encounter
--- OUTSIDE RECORDS SUMMARY | 2024-02-21 19:39 | XMS_ITS | Encounter Summary ---
Author Organization [facility] Healthcare Address [address] [place] [address] Care Team Providers Care Reducing Machine Operator Name Role Phone Daily Cruz MD Primary Care Provider [phone] [phone] Reason for Referral * Diagnostic Imaging (Routine) - Closed Specialty Diagnoses / Procedures Referred By Contac t Referred To Contact Diagnoses Acute pain of left knee Procedures MRI Lumbar Spine WO Contrast Daily Cruz MD Phone: tel: fax: [address] [address] Referral ID Status Reason Start Date Expiration Date Visits Re quested Visits Authorized [id number] Closed 04/15/2020 10/12/2020 1 1 Encounter Details Date Type Department Care Team (Late st Contact Info) Description 05/12/2020 6:19 AM CDT Hospital Encounter [facility] INTERIM Daily Cruz MD [address] [place] [id number] Acute pain of left knee Social History [...] on file Legal Sex Female 3:37 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 D.O.B: 1990 ? Exam Date: 05/12/20 ?? 0000 ?? Age: 29 ?Sex: Female ? MR#: [id number] ?? Loc: ? RADIOLOGY REPORT ?? Order #[id number] ?? Magnetic Resonance Imaging ? MRI Lumbar ? Signed ?? EXAM DESCRIPTION: ?? MRI Lumbar ? REASON FOR STUDY: ?? Lower back pain. ??Pain radiating down both legs, worse on ?? the left, duration of symptoms is 3-4 months. ??No known trauma. ? TECHNIQUE: ?? Sagittal and Axial imaging includes T1, T2, STIR sequences. ? COMPARISON: ?? Lumbar spine radiographs dated 02/28/[address] abdomen and ?? pelvis dated 08/13/2019 ? FINDINGS: ? SEGMENTATION: ??For the purpose of this dictation the last well-formed disc ?? space seen on series 801, image 13 will be labeled L5-S1. ? ALIGNMENT: ??There is 1-2 mm of retrolisthesis of L4 on L5. ? VERTEBRAE: ??No acute compression fracture lumbar spine. ??Round T1 and T2 ?? hyperintense focus in the L5 vertebral body in keeping with intraosseous ?? hemangioma. ? DISC HEIGHT: ??Mild disc desiccation and height loss at L5-S1 and to lesser ?? extent L4-L5 and L3-L4. ? HARDWARE: ??None in the spine. ? CORD/CAUDA: ??Conus medullaris terminates at L1. ? LOWER THORACIC: ??Incompletely imaged. No high-grade spinal canal narrowing. ? INDIVIDUAL DISC LEVELS: ? T12-L1: No significant disc bulge, spinal canal or neural foraminal narrowing. ? L1-L2: No significant disc bulge, spinal canal or neural foraminal narrowing. ? L2-L3: No significant disc bulge, spinal canal or neural foraminal narrowing. ? L3-L4: Disc bulge and a superimposed central through proximal left neural ?? foraminal disc protrusion with an annular fissure. ??Thickened ligamentum ?? flavum and facet arthropathy. ??Mild left ventral spinal canal narrowing. ??Disc ?? approaches the traversing right L4 nerve root and contacts the traversing left ?? L4 nerve root. ??No significant neural foraminal narrowing. ? L4-L5: Disc bulge and a superimposed small central disc protrusion. ??Thickened ?? ligamentum flavum and facet arthropathy. ??Disc indents the ventral thecal sac. ?Mild bilateral neural foraminal narrowing. ? L5-S1: Disc bulge and a superimposed central disc protrusion with an annular ?? fissure. ??Bilateral facet arthropathy. ??No significant spinal canal or neural ?? foraminal narrowing. ? IMPRESSION: ? 1. ??Multilevel mild lumbar spondylotic changes as described. ??No high-grade ?? spinal canal narrowing. ? 2. ??Neural foraminal narrowing and additional findings as discussed above. ? THIS IS AN ELECTRONICALLY VERIFIED FINAL REPORT ?? 05/12/2020 9:36 AM - Electronically signed by Albert Hart D.O. ?? Albert Hart D.O. ? AP ?? D: ??05/12/2020 9:36 AM ?? T: ? Report ID: [id number] ?? Reading Location: ??[id number] ? REPORT ELECTRONICALLY SIGNED IN OTHER VENDOR SYSTEM ?? Resulting Agency Comment O Procedure Note Albert Hart DO - 05/12/2020 Patient Name: WILLIAMJUD Dr: Daily Cruz MDOSydneyB: 1990 Exam Date: 05/12/20 0000 Age: 29 Sex: Female MR#: [id number] Loc: RADIOLOGY REPORT Order #[id number] Magnetic Resonance Imaging MRI Lumbar Signed EXAM DESCRIPTION: MRI Lumbar REASON FOR STUDY: Lower back pain. Pain radiating down both legs,worse on the left, duration of symptoms is 3-4 months. No known trauma. TECHNIQUE: Sagittal and Axial imaging includes T1, T2, STIR sequences. COMPARISON: Lumbar spine radiographs dated 02/28/[address] abdomenand pelvis dated 08/13/2019 FINDINGS: SEGMENTATION: For the purpose of this dictation the last well-formeddisc space seen on series 801, image 13 will be labeled L5-S1. ALIGNMENT: There is 1-2 mm of retrolisthesis of L4 on L5. VERTEBRAE: No acute compression fracture lumbar spine. Round T1 and T2 hyperintense focus in the L5 vertebral body in keeping with intraosseous hemangioma. DISC HEIGHT: Mild disc desiccation and height loss at L5-S1 and tolesser extent L4-L5 and L3-L4. HARDWARE: None in the spine. CORD/CAUDA: Conus medullaris terminates at L1. LOWER THORACIC: Incompletely imaged. No high-grade spinal canalnarrowing. INDIVIDUAL DISC LEVELS: T12-L1: No significant disc bulge, spinal canal or neural foraminalnarrowing. L1-L2: No significant disc bulge, spinal canal or neural foraminalnarrowing. L2-L3: No significant disc bulge, spinal canal or neural foraminalnarrowing. L3-L4: Disc bulge and a superimposed central through proximal left neural foraminal disc protrusion with an annular fissure. Thickened ligamentum flavum and facet arthropathy. Mild left ventral spinal canal narrowing.Disc approaches the traversing right L4 nerve root and contacts the traversingleft L4 nerve root. No significant neural foraminal narrowing. L4-L5: Disc bulge and a superimposed small central disc protrusion.Thickened ligamentum flavum and facet arthropathy. Disc indents the ventral thecalsac. Mild bilateral neural foraminal narrowing. L5-S1: Disc bulge and a superimposed central disc protrusion with anannular fissure. Bilateral facet arthropathy. No significant spinal canal orneural foraminal narrowing. IMPRESSION: 1. Multilevel mild lumbar spondylotic changes as described. Nohigh-grade spinal canal narrowing. 2. Neural foraminal narrowing and additional findings as discussedabove. THIS IS AN ELECTRONICALLY VERIFIED FINAL REPORT 05/12/2020 9:36 AM - Electronically signed by Albert LEON T: Report ID: [id number] Reading Location: [id number] REPORT ELECTRONICALLY SIGNED IN OTHER VENDOR SYSTEM Daily Cruz MD IMG MRI PROCEDURES Final Result documented in this encounter Visit Diagnoses Diagnosis Acute pain of left knee documented in this encounter Care Teams Reducing Machine Operator Relationship Specialty Start Date End Date Daily Cruz MD PCP - General Family Medicine 08/01/19 03/03/21 documented as of this encounter
--- OUTSIDE RECORDS SUMMARY | 2024-02-21 19:39 | XMS_ITS | Encounter Summary ---
Author Organization [facility] Address [address] [place] [address] Care Team Providers Care Nursery School Teacher Name Role Phone Daily Cruz MD Primary Care Provider [phone] Reason for Visit * Reason Onset Date Comments No Insurance Card on file for BCBS 06/25/2020 Encounter Details Date Type Department Care Team (Late st Contact Info) Description 06/25/2020 Telephone [facility] Family Medicine [address] [place] [address] [address] [place] [address] Daily Cruz MD [address] [place] [address] No Insurance Card on file for BC Social History Tobacco Use Types Packs/Day Years [...] on file 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 Dr Calero is listed as patient's pcp. * Telephone Encounter - Ignacia Garsia - 06/25/2020 1:59 PM CDT Pt was scheduled 06/03/2020 for her appt date on 06/09/2020 and we do not have her BCBS card scanned into her chart. Can someone please call the pt to ask for her to scan her BCBS card into her Mychart or if she can bring this to our office to be scanned in or she can fax this to someone to be scanned into her chart Please and thanks documented in this encounter Plan of Treatment Not on file documented as of this encounter Visit Diagnoses Not on filedocumented in this encounter Care Teams Nursery School Teacher Relationship Specialty Start Date End Date Daily Cruz MD PCP - General Family Medicine 08/01/19 03/03/21 documented as of this encounter
--- OUTSIDE RECORDS SUMMARY | 2024-02-21 19:39 | XMS_ITS | Encounter Summary ---
Author Organization [facility] Address [address] [address] [facility] [address] [place] [address] Care Team Providers Care Oven Dumper Name Role Phone Daily Cruz MD Primary Care Provider [phone] Reason for Visit * Reason Onset Date Comments Covid-19 Home Monitoring 12/25/2019 Encounter Details Date Type Department Care Team (Late st Contact Info) Description 12/25/2019 Telephone [facility] Accountable Care Organization [address] [place] [address] Larisa Perkins MA [address] [address] Covid-19 Home Monitoring Social History Tobacco Use Types Packs/Day Years [...] on file 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 By saving a note using this template, the patient will drop off our home monitoring candidate reports for two weeks. If we still consider them to have an active case of COVID-19 at that time, we willreevaluate them for home monitoring. LLE OPERATOR documented in this encounter Plan of Treatment Not on file documented as of this encounter Visit Diagnoses Not on filedocumented in this encounter Additional Health Concerns Infection Onset Date Last Indicated Resolved Time COVID19 12/19/2019 12/19/2019 01/02/2020 3:07 AM BRAILLE OPERATOR documented as of this encounter Care Teams Oven Dumper Relationship Specialty Start Date End Date Daily Cruz MD PCP - General Family Medicine 08/01/19 03/03/21 documented as of this encounter
--- OUTSIDE RECORDS SUMMARY | 2024-02-21 19:39 | XMS_ITS | Encounter Summary ---
Author Organization [facility] Address [address] [place] [address] Care Team Providers Care Remote Sensing Research Scientist Name Role Phone Daily Cruz MD Primary Care Provider [phone] Daily Cruz MD Primary Care Provider [phone] Encounter Details Date Type Department Care Team (Late st Contact Info) Description 05/21/2020 Patient Message [facility] Family Medicine [address] [place] [address] [address] [place] [address] Daily Cruz MD [address] [place] [address] RE: Referral Request Social History Tobacco Use Types [...] on file 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 * Telephone Encounter - Ignacia Mckeon - 05/22/2020 12:58 PM CDT Patient came in and stated she needed the referral sent to: [facility] [address] [place] [address] P#: [phone] Fax#: [phone] * Telephone Encounter - Daily Cruz MD - 05/22/2020 5:02 AM CDT Yes okay to send * Telephone Encounter - Jodi Mock MA - 05/21/2020 9:28 AM CDT Okay for referral? documented in this encounter Plan of Treatment [...] Lumbar spondylosis- Primary Lumbosacral spondylosis without myelopathy Chronic migraine without aura without status migrainosus, not intractable Pseudotumor cerebri Benign intracranial hypertension documented in this encounter Care Teams Remote Sensing Research Scientist Relationship Specialty Start Date End Date Daily Cruz MD PCP - General Family Medicine 08/01/19 03/03/21 Daily Cruz MD PCP - General Family Medicine 03/04/21 documented as of this encounter
--- OUTSIDE RECORDS SUMMARY | 2024-02-21 19:40 | XMS_ITS | Encounter Summary ---
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 Name Role Phone Jesusita Emmanuel MD Primary Care Provide r Encounter Details Date Type Department Care Team (Late st Contact Info) Description 07/16/2019 1:57 PM CDT Anesthesia Event [facility] Surgery at [facility] [address] [place] [address] Jean Fermin MD [address] [facility] [facility] [address] [place] [address] Carissa Hector NP [address] [facility] [phone] [place] [address] Anesthesia Record Procedure Summary Procedure Name Responsible Anesthesiologist Anesthesia Start Time Anesthesia Stop Time revision left tarsometatarsal joint arthrodesis iliac crest bone graft (Left: Foot) Jean Fermin MD 07/16/19 1357 07/16/19 160 3 Events Date Time Event Comment 07/16/2019 1241 Start Supplemental O2 1243 Time out - Regional 1244 An Block Induction The patie nt was reevaluated immediately before moderate or deep sedation and before anesthesia induction. 1252 Block Placed 1300 Block Placed 1306 1357 An Start 1400 An Start Data 1400 In Room 1405 An Induction The patient was reevaluated immediately before moderate or deep sedation use and before anesthesia induction. 1407 An Intubation 1409 Anesthesia Ready 1421 Proc Start 1422 Incision Start 1548 Proc Fin 1551 An Extubation 1557 Out of Room 1603 an stop data 1603 Handoff to RN I completed my handoff [...] disposition at the time of handoff: PACU 1603 An Stop 1707 Release from care Meds Name Total midazolam PF 5 mg fentaNYL 200 mcg bupivacaine 0.5 % PF 40 mL lidocaine 1 % PF 100 mg propofol 200 mg succinylcholine 100 mg ondansetron PF (ZOFRAN) 2 mg/mL injectio n 4 mg ceFAZolin 3,000 mg dexamethasone 4 mg/ml 4 mg ketorolac 30 mg phenylephrine syringe 1 mg/10 mL 100 mcg glycopyrrolate 0.2 mg Lactated Ringer's (LR) infusion 1,000 mL * Agents Name O2 N2O Air Sevoflurane Inspired Sevoflurane * Blood No blood administrations on file. Lines, Drains, and Airways Type Details Placement Removal Peripheral IV Placement Date: 07/16/19; Placement Time: 1145; Catheter Size: 20 G; Orientation: Right; Location: Hand; Site Prep: Chlorhexidine; Technique: Anatomical landmarks; Insertion Attempts: 1; Patient Tolerance: Tolerated well; Removal Date: 07/16/19; Removal Time: 1715 07/16/19 1145 by Latisha Hull RN 07/16/19 1715 by Bre Gutierrez RN RETIRED Surgical Site 07/16/19; 1352; Le ft; Leg; 09/10/20; 1133 07/16/19 1352 by Fito Cheung RN 09/10/20 1133 by Jessica White, LEE ETT Placement Date: 07/16/19; Placement Time: 1428 (created via procedure documentation); Mask Ventilation: 1; Technique: Direct laryngoscopy; Type: ETT - single; Single Lumen Tube Size: 7.5 mm; Cuffed: Yes; Laryngoscope: Magaly; Blade Size: 3; Location: Oral; Grade View: Grade I; Insertion Attempts: 1; Placement Verification: Auscultation, Capnometry; Removal Date: 07/16/19; Removal Time: 1551 07/16/19 1428 by Eros Recinos, HARRISON 07/16/19 1551 by Eros Recinos, HARRISON RETIRED Surgical Site 07/16/19; 1519; Le ft; Iliac Crest; 09/10/20; 1133 07/16/19 1519 by Guerline Padron RN 09/10/20 1133 by Jessica White, LEE documented in this encounter Social History Tobacco Use Types Packs/Day Years Used Date Smoking Tobacco: Never Smokeless Tobacco: Never Alcohol Use Standard Drinks/Week Comments Yes 0 (1 standard drink = 0.6 oz pur e alcohol) RARE PHQ-2 Answer Date Recorded PHQ-2 Total Score (If total score is 3 or more points, staff should administer the PHQ-9) 0 07/11/2019 Comments Unknown Sex and Gender Information Value Date Recorded Sex Assigned at Not on file 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 Gender Identity Female 03/02/2020 4:27 PM BICYCLE COURIER Sexual Orientation Straight 07/10/2019 11 :13 PM CDT documented as of this encounter OR Notes * Anesthesia Postprocedure Evaluation - Jean Fermin MD - 07/16/2019 5:06 PM CDT Patient: Jud Leung Procedure Summary Date: 07/16/19 Room / Location: [facility] OPERATING ROOM / [facility] Operating Room Anesthesia Start: 1357 Anesthesia Stop: 1603 Procedures: revision left tarsometatarsal joint arthrodesis iliac crest bone graft (Left Foot) iliac crest bone graft (Left Hip) Diagnosis: 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 or arthrodesis Painful orthopaedic hardware (CMS/HCC) (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 or arthrodesis [M96.0]) (Painful orthopaedic hardware (CMS/HCC) [T84.84XA]) Provider: Charissa Holley MD Responsible Provider: Jean Fermin MD Anesthesia Type: general, PNB - single shot ASA Status: 3 Anesthesia Type: general, PNB - single shot Last vitals BP 110/60 Pulse 75 Temp 36.3 ??C (97.3 ??F) (Temporal) Resp 23 SpO2 98% Anesthesia Post Evaluation Patient location during evaluation: PACU Patient participation: complete - patient participated Level of consciousness: fully awake Pain score: 4 Pain management: satisfactory to patient Airway patency: adequate and patent Evidence of recall: no Anesthetic complications: no Cardiovascular status: acceptable and hemodynamically stable Respiratory status: acceptable and room air Hydration status: acceptable Pt is: normothermic Nausea/Vomiting status: resolved Comments: Pain described as throbbing. Expectant pain management reviewed. Patient to return home with boyfriend. * Anesthesia Procedure Notes - Eros Recinos CRNA - 07/16/2019 2:27 PM CDT Associated Order(s): Airway Airway Patient location: OR Urgency: elective Indications for airway management: anesthesia Difficult airway: no Staff: Supervising provider: Jean Fermin MD Placed by: CLIENT TECHNICAL SUPPORT ASSOCIATE: Eros Recinos CRNA Emergent airway documentation: Risks and benefits discussed: yes Consent obtained: yes Consent given by: patient Airway prep: Preoxygenated: yes Patient position: sniffing Mask difficulty assessment: 1 - vent by mask Spontaneous ventilation during airway: absent Sedation level during airway: GA Final airway details: Final airway type: endotracheal airway Tube type: ETT ETT size: 7.5 mm Cuffed: yes Technique used for successful ETT placement: direct laryngoscopy Devices/Methods used in placement: anterior pressure/BURP Insertion site: oral Blade type: Magaly Blade size: 3 Cormack-Lehane (direct): grade I - full view of glottis Cuff volume: 7 mL Cuff inflated with: air ETT to lips: 22 cm Placement verified by: auscultation and CO2 detection Airway secured with: silk tape Number of attempts: 1no * Anesthesia Procedure Notes - Jean Fermin MD - 07/16/2019 1:08 PM CDT Associated Order(s): Peripheral Block Peripheral Block Patient location during procedure: pre-op holding Reason for block: post-op pain management per surgeon request Ultrasound image in chart or stored: yes Block type: single shot Laterality: left Block type: saphenous nerve block - subsartorial approach Staff: Placed by: Anesthesiologist: Jean Fermin MD Procedure prep: Preprocedure checklist: patient identified, procedure contraindications assessed, site marked, procedure consent, surgical consent, IV checked, risks, benefits and alternatives discussed, monitors and equipment checked and timeout performed Patient position: supine and head of bed elevated Procedure performed while patient: sedate with meaningful contact Monitoring: ECG, oximetry and blood pressure Supplemental O2: nasal cannula Prep solution: chlorhexidine/alcohol PPE: provider hat/mask, sterile gloves and sterile probe cover and gel Peripheral nerve block: Technique: ultrasound guided Needle type: insulated and short-bevel Needle gauge: 21 G Needle length: 100 mm Injection assessment: injection made incrementally with constant monitoring, local visualized surrounding nerve on ultrasound, negative aspiration for heme, no paresthesias noted, normal resistance to injection and see flowsheet for medication details Assessment: Block success: full evaluation pending Events: patient tolerated procedure well with no complications * Anesthesia Procedure Notes - Jean Fermin MD - 07/16/2019 1:08 PM CDT Associated Order(s): Peripheral Block Peripheral Block Patient location during procedure: pre-op holding Reason for block: post-op pain management per surgeon request Ultrasound image in chart or stored: yes Block type: single shot Laterality: left Block type: sciatic nerve block - popliteal Staff: Placed by: Anesthesiologist: Jean Fermin MD Procedure prep: Preprocedure checklist: patient identified, procedure contraindications assessed, site marked, procedure consent, surgical consent, IV checked, risks, benefits and alternatives discussed, monitors and equipment checked and timeout performed Patient position: head of bed elevated and right lateral decubitus Procedure performed while patient: sedate with meaningful contact Monitoring: ECG, oximetry and blood pressure Supplemental O2: nasal cannula Prep solution: chlorhexidine/alcohol PPE: provider hat/mask, sterile gloves and sterile probe cover and gel Peripheral nerve block: Technique: ultrasound guided Needle type: insulated and short-bevel Needle gauge: 21 G Needle length: 100 mm Injection assessment: injection made incrementally with constant monitoring, negative aspiration for heme, no paresthesias noted, normal resistance to injection, see flowsheet for medication details and local visualized surrounding nerve on ultrasound Assessment: Block success: full evaluation pending Events: patient tolerated procedure well with no complications * Anesthesia Preprocedure Evaluation - Jean Fermin MD - 07/12/2019 10:08 AM CDT Images from the original note were not included. [facility] Planning Preoperative Evaluation Record Evaluation type/location: TPAP from [facility] Planned procedure site: [facility] OR Date: 07/12/19 NOTE: This note represents a preoperative evaluation initiated via telephone interview. NO PHYSICALEXAM was performed at the time of initial assessment. A physical exam may be added to this note anddocumented below. Anesthesia Evaluation Jud Leung is a 28 y.o. female Procedure(s): revision left tarsometatarsal joint arthrodesis iliac crest bone graft iliac crest bone graft Pre-Op Diagnosis Codes: * 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 or arthrodesis [M96.0] * Painful orthopaedic hardware (CMS/HCC) [T84.84XA] HISTORY HPI Jud Leung is a 28 y.o. female who is being evaluated prior to undergoing revision left tarsometatarsal joint arthrodesis iliac crest bone graft (Left Foot) ?iliac crest bone graft (Left Hip) for 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 or arthrodesis (M96.0) ?Painful orthopaedic hardware (CMS/HCC) Past Medical History Information obtained from: patient [...] Cardiovascular Pertinent negatives: hypertension ; CAD ; NC ; CABG ; valvular heart disease; valve replacement; atrial fibrillation; arrhythmia; pacemaker/ICD; PVD; DVT/PE; negative for CHF; drug-eluting stent(s); bare metal stent(s) and coronary angioplasty Respiratory Pertinent negatives: COPD; asthma; sleep apnea (WALTER); pulmonary hypertension; no O2 use outside thehospital and non-smoker Comments: Reactive airway disease with inhaler only used during URI Denies h/o PFT, PNA Hepatic / Heme Pertinent negatives: liver disease; history of anemia; history of thrombocytopenia and history of Robert positive Gastrointestinal + GERD - PRN medication use only. Symptoms weekly but < daily. Pertinent negatives: hiatal hernia Renal / + Nephrolithiasis (nonobstructive renal stones per pt) Pertinent negatives: renal disease and dialysis Musculoskeletal/Pain + Chronic pain (left foot, left hip current etiology) + Headaches (10-15 headaches per month, planning to see neurology) - migraine headaches. Pertinent negatives: chronic opioid use and previous treatment for opioid use disorder Endocrine / Other + Obesity (BMI >30)- morbid obesity (BMI>40). + Infectious disease (UTI over a year ago) - UTI. + Eye disorder (diplopia r/t cerebri or eye muscle weakness per pt) Pertinent negatives: thyroid disease; cancer history; rheumatological disease and transplanted organ Diabetes: insulin resistant - used to take to metformin but stopped a year ago, no longer seeing endocrinology. Functional Capacity Functional capacity: <4 METs Functional capacity limited by a non-cardiovascular, non-pulmonary condition. Comments: Unable to climb 2 flights of stairs or walk 4 blocks due to foot and hip pain Review of Systems + SOB (onset of extreme SOB 1 week ago with CP and edema and did not seek ER eval - chest CT pending today) + chest pain (chest tightness with left axilla pain 1 week ago now resolved - chest CT pending today) + pedal edema (extreme BLE edema 1 week ago - dopplers pending today) + chronic pain (left foot, left hip current etiology) + vision loss (corrective lenses) + heartburn (frequent heartburn r/t diet, elevates HOB to relieve , frequent use of Zantac) + chipped/loose teeth (chipped lower incisor) Pertinent negatives: productive cough; wheezing; recent cold/flu; fever; palpitations; orthopnea; PND; heavy menses; Sickle Cell disease/trait; previous transfusion; transfusion reaction; melena/hematochezia; easy bruising; bleeding problems; syncope; dizziness; muscle weakness; numbness/tingling; hard of hearing; nausea; dysphagia; diarrhea; abdominal pain; diaphoresis and no unexpected weight changeDentures: occlusal splint worn daily for TMJ. Comments: Denies symptoms suggestive of urinary tract infection. PAT Summary and Plans Cardiac risk classification of planned procedure: low cardiac risk. Preoperative assessment status: other diagnostics required. Additional comments: Jud Leung is a 28 y.o. female who is being evaluated prior to undergoing alow cardiac risk surgery. Revised Cardiac Risk Index factors are (none) for a total RCRI of 0 out of 6. Functional capacity is <4 METs (specifically:left foot pain limits ambulation). Obstructive sleep apnea (WALTER) screening status is pending day of surgery neck circumference. Blood bank needs for day of procedure: No type and screen needed Pending labs/tests include: review OSH labs being drawn today [facility] and Covid 19 DOS hcg urine and glucose This assessment was performed via telephone. Therefore the physical exam has been deferred to the day of surgery team. The patient was provided with preoperative instructions for their medications. The patient was instructed to shower/bathe the night prior and the morning of the planned procedure using an antibacterial soap. Patient with No known exposure to COVID19 and no concerning symptoms of COVID19. Plan for pre-procedure COVID19 testing: Surgeon's office arranged for pre- procedure COVID19 testing to be performed on07/12/2019 at the [facility]. Surgeon to review. Patient instructions were provided in writing sent via [employer] mail and telephone. Patient verbalized understanding of preoperative plan. ++patient experienced symptoms (sudden onset CP, SOB, and BLE gross edema) worrisome for DVT/PE/CHFlast week but did not go to ER. She saw her PCP today who sent her for LE dopplers (prelim telephone note says NEG), Chest CT, and labs. The symptoms have completely resolved. Retrieve and review these records when available and discuss case with CPAP attending. Patient was advised to go to ER immediately for any recurrence of these symptoms.++ Preoperative evaluation performed by Carissa Hector NP on 07/12/19 at 10:57 AM. . Follow up note Reviewed labs, chest CT and BLE dopplers, no significant findings identified. Results below in diagnostics. TPAP complete Follow-up completed by: Alexandra Dupont NP on 07/15/19 at 11:47 AM Patient Active Problem List Diagnosis ??? 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 or arthrodesis ??? Painful orthopaedic hardware (CMS/HCC) ??? Reactive airway disease ??? Attention deficit disorder (ADD) in adult ??? Rathke's cyst (CMS/HCC) ??? Chronic migraine without aura without status migrainosus, not intractable ??? Pseudotumor cerebri ??? Pain and swelling of lower extremity ??? SOB (shortness of breath) Past Medical History: Diagnosis Date ??? ADHD (attention deficit hyperactivity disorder) ??? Anxiety ??? Arthritis ??? Chronic bronchitis (CMS/HCC) ??? Depression ??? Gastric reflux ??? GERD (gastroesophageal reflux disease) ??? Jaundice ??? Kidney stone ??? Migraines ??? Motion sickness ??? Obesity ??? Pneumonia ??? PONV (postoperative nausea and vomiting) premedicated and scopolamine patch ??? Seasonal allergies ??? Seizures (CMS/HCC) Past Surgical History: Procedure Laterality Date ??? FOOT SURGERY 2018 2 left bunion, 1 right bunion ??? LAPAROSCOPIC ENDOMETRIOSIS FULGURATION 2017 ??? TONSILECTOMY, ADENOIDECTOMY, BILATERAL MYRINGOTOMY AND TUBES ??? WISDOM TOOTH EXTRACTION OB History No obstetric history on file. Allergies Allergen Reactions ??? Nickel Hives, Itching, Rash and Swelling SKIN TURNS RED ??? Topiramate Swelling and Other (See comments) Dizzy, body goes numb ??? Hydrocodone-Acetaminophen Nausea And Vomiting ??? Lamotrigine Other (See comments) SEIZURE ACTIVITY ??? Levetiracetam Other (See comments) SEIZURE ACTIVITY Med List Status: Nurse Complete Set By: Arturo Morel RN at 07/11/2019 10:08 AM Taking? Last Dose Start Date End Date Provider [id number] (EXCEDRIN MIGRAINE) 250-250-65 mg per tablet -- -- Historical Provider, albuterol HFA (Ventolin HFA) 90 mcg/actuation inhaler -- -- Historical Provider, levonorgestreL (KYLEENA) IUD -- -- Historical Provider, No current facility-administered medications for this encounter. Current Outpatient Medications: ??? [id number] (EXCEDRIN MIGRAINE) 250-250-65 mg per tablet ??? albuterol HFA (Ventolin HFA) 90 mcg/actuation inhaler ??? levonorgestreL (KYLEENA) IUD Social History Tobacco Use Smoking Status Never Smoker Smokeless Tobacco Never Used Substance and Sexual Activity Alcohol Use Yes Comment: RARE Substance and Sexual Activity Drug Use Never Family History Problem Relation Age of Onset ??? Seizures Sister Family history of seizures - (Added by TW Conv) ??? Arthritis Sister ??? Hypertension Sister ??? Mental illness Sister ??? Stroke Sister ??? Arthritis Mother ??? Hypertension Mother ??? Mental illness Mother ??? Stroke Mother ??? Seizures Mother ??? Diabetes Mother ??? Alcohol abuse Mother ??? Heart attack Mother ??? Arthritis Father ??? Hypertension Father ??? Mental illness Father ??? Heart attack Father ??? Stroke Paternal Grandmother ??? Anesthesia problems Neg Hx There were no vitals filed for this visit. Relevant diagnostics: ECG(s): N/A Echocardiogram(s): N/A Stress test(s): N/A Cardiac catheterization(s): N/A PFT(s): N/A Vascular studies: BLE Dopplers 07/11/2019 Negative for deep vein thrombosis, bilateral lower extremities. Other: Chest CT with contrast 07/11/2019 Impression: no evidence of pulmonary embolism. Normal CT of the chest. PT: No results found for requested labs within last 720 hours. INR: No results found for requested labs within last 720 hours. APTT: No results found for requested labs within last 720 hours. Hgb A1C: No results found for requested labs within last 720 hours. CBC RBC: No results found for requested labs within last 720 hours. RDW: No results found for requested labs within last 720 hours. MCHC: No results found for requested labs within last 720 hours. MCH: No results found for requested labs within last 720 hours. MCV: No results found for requested labs within last 720 hours. Hct: No results found for requested labs within last 720 hours. Hgb: No results found for requested labs within last 720 hours. WBC: No results found for requested labs within last 720 hours. MPV: No results found for requested labs within last 720 hours. Platelets: No results found for requested labs within last 720 hours. RDW CV: No results found for requested labs within last 720 hours. RDW Sd: No results found for requested labs within last 720 hours. BMP Glucose: No results found for requested labs within last 720 hours. Calcium: No results found for requested labs within last 720 hours. Sodium: No results found for requested labs within last 720 hours. Potassium: No results found for requested labs within last 720 hours. CO2: No results found for requested labs within last 720 hours. Chloride: No results found for requested labs within last 720 hours. BUN: No results found for requested labs within last 720 hours. Creatinine: No results found for requested labs within last 720 hours. Capo index score: 100 DOS Physical Exam Medical history, medications, and allergies reviewed. Attestation: This PAT evaluation Airway Exam: Mallampati: II Cervical ROM: FROM TM distance: 3.5 Patient presents with poor mouth opening. Jaw ROM: limited (TMJ) Cardiovascular Exam: Rate: regular Rhythm: regular Negative for Murmur Pulmonary Exam: LCTA, bilat EENT Exam: trachea midline Dental Exam: Chipped (Chipped lower front left tooth) Skin Exam: Skin is warm and dry. Current state: Patient's current state is cooperative and interactive. Anesthesia Plan ASA 3 My patient is approved for the Anesthesia Controlled Medication protocol when under care of a CLIENT TECHNICAL SUPPORT ASSOCIATE Planned anesthesia: General and PNB - single shot Team communication plan: oral ET tube Lower extremity: saphenous nerve block - subsartorial approach and sciatic nerve block - popliteal Induction: Induction: intravenous. Postoperative Plan: Postoperative administration opioids intended. Patient's planned disposition post procedure is Outpatient. Informed Consent: Anesthesia plan and risks discussed with patient. Plan and Consent Comments: Pre-op blocks, IV induction, GETA. Consent and Attending signature: I and/or my [...] Procedure Name Priority Date/Time Associated Diagnosis Comments NC AN PROCEDURE PLACEHOLDER Routine 07/16/2019 2:27 PM CDT NC AN ELECTIVE ENDOTRACHEAL AIRWAY Routine 07/16/2019 2:27 PM CDT NC AN PROCEDURE PLACEHOLDER Routine 07/16/2019 1:08 PM CDT NC AN PROCEDURE PLACEHOLDER Routine 07/16/2019 1:08 PM CDT documented in this encounter Results * NC AN ELECTIVE ENDOTRACHEAL AIRWAY, NC AN PROCEDURE PLACEHOLDER (07/16/2019 2:27 PM CDT) Narrative Eros Recinos CRNA - 07/16/2019 2:27 PM CDT Eros Recinos CRNA ? 07/16/2019 ??2:28 PM Airway Patient location: OR Urgency: elective Indications for airway management: anesthesia Difficult airway: no Staff: Supervising provider: Jean Fermin MD Placed by: CLIENT TECHNICAL SUPPORT ASSOCIATE: Eros Recinos CRNA Emergent airway documentation: Risks and benefits discussed: yes Consent obtained: yes Consent given by: patient Airway prep: Preoxygenated: yes Patient position: sniffing Mask difficulty assessment: 1 - vent by mask Spontaneous ventilation during airway: absent Sedation level during airway: GA Final airway details: Final airway type: endotracheal airway Tube type: ETT ETT size: 7.5 mm Cuffed: yes Technique used for successful ETT placement: direct laryngoscopy Devices/Methods used in placement: anterior pressure/BURP Insertion site: oral Blade type: Magaly Blade size: 3 Cormack-Lehane (direct): grade I - full view of glottis Cuff volume: 7 mL Cuff inflated with: air ETT to lips: 22 cm Placement verified by: auscultation and CO2 detection Airway secured with: silk tape Number of attempts: 1no us Jean Fermin MD ANESTHESIA ORDERABLES Karen l Result * NC AN PROCEDURE PLACEHOLDER (07/16/2019 1:08 PM CDT) Jean Wilkerson MD - 07/16/2019 1:08 PM CDT Jean Fermin MD ? 07/16/2019 ??1:09 PM Peripheral Block Patient location during procedure: pre-op holding Reason for block: post-op pain management per surgeon request Ultrasound image in chart or stored: yes Block type: single shot Laterality: left Block type: saphenous nerve block - subsartorial approach Staff: Placed by: Anesthesiologist: Jean Fermin MD Procedure prep: Preprocedure checklist: patient identified, procedure contraindications assessed, site marked, procedure consent, surgical consent, IV checked, risks, benefits and alternatives discussed, monitors and equipment checked and timeout performed Patient position: supine and head of bed elevated Procedure performed while patient: sedate with meaningful contact Monitoring: ECG, oximetry and blood pressure Supplemental O2: nasal cannula Prep solution: chlorhexidine/alcohol PPE: provider hat/mask, sterile gloves and sterile probe cover and gel Peripheral nerve block: Technique: ultrasound guided Needle type: insulated and short-bevel Needle gauge: 21 G Needle length: 100 mm Injection assessment: injection made incrementally with constant monitoring, local visualized surrounding nerve on ultrasound, negative aspiration for heme, no paresthesias noted, normal resistance to injection and see flowsheet for medication details Assessment: Block success: full evaluation pending Events: patient tolerated procedure well with no complications us Jean Fermin MD ANESTHESIA ORDERABLES Karen l Result * NC AN PROCEDURE PLACEHOLDER (07/16/2019 1:08 PM CDT) Jean Wilkerson MD - 07/16/2019 1:08 PM CDT Jean Fermin MD ? 07/16/2019 ??1:08 PM Peripheral Block Patient location during procedure: pre-op holding Reason for block: post-op pain management per surgeon request Ultrasound image in chart or stored: yes Block type: single shot Laterality: left Block type: sciatic nerve block - popliteal Staff: Placed by: Anesthesiologist: Jean Fermin MD Procedure prep: Preprocedure checklist: patient identified, procedure contraindications assessed, site marked, procedure consent, surgical consent, IV checked, risks, benefits and alternatives discussed, monitors and equipment checked and timeout performed Patient position: head of bed elevated and right lateral decubitus Procedure performed while patient: sedate with meaningful contact Monitoring: ECG, oximetry and blood pressure Supplemental O2: nasal cannula Prep solution: chlorhexidine/alcohol PPE: provider hat/mask, sterile gloves and sterile probe cover and gel Peripheral nerve block: Technique: ultrasound guided Needle type: insulated and short-bevel Needle gauge: 21 G Needle length: 100 mm Injection assessment: injection made incrementally with constant monitoring, negative aspiration for heme, no paresthesias noted, normal resistance to injection, see flowsheet for medication details and local visualized surrounding nerve on ultrasound Assessment: Block success: full evaluation pending Events: patient tolerated procedure well with no complications us Jean Fermin MD ANESTHESIA ORDERABLES Karen l Result documented in this encounter Visit Diagnoses Not on filedocumented in this encounter Administered Medications Inactive Administered Medications - up to 3 most recent administrations Medication Order MAR Action Action Date Dose Rate Site bupivacaine (MARCAINE) 0.5 % (5 mg/mL) preservative free injection other, As needed, Starting on Mon07/16/19 at 1252, Anesthesia Intra-op Given 07/16/2019 1:00 PM CDT 12 mL Given 07/16/2019 12:52 PM CDT 28 mL ceFAZolin (ANCEF) injection intravenous, Administer over 3 Minutes, As needed, Starting on Mon07/16/19 at 1410, Anesthesia Intra-op Given 07/16/2019 2:10 PM CDT 3,000 mg dexAMETHasone (DECADRON) 4 mg/mL injection Administer over 2 Minutes, As needed, Starting on Mon07/16/19 at 1439, Anesthesia Intra-op Given 07/16/2019 2:39 PM CDT 4 mg fentaNYL (SUBLIMAZE) preservative free injection intravenous, As needed, Starting on Mon07/16/19 at 1244, Anesthesia Intra-op Given 07/16/2019 3:41 PM CDT 50 mcg Given 07/16/2019 2:32 PM CDT 50 mcg Given 07/16/2019 2:05 PM CDT 50 mcg glycopyrrolate (ROBINUL) injection Administer over 1 Minutes, As needed, Starting on Mon07/16/19 at 1453, Anesthesia Intra-op Given 07/16/2019 2:53 PM CDT 0.2 mg ketorolac (TORADOL) injection As needed, Starting on Mon07/16/19 at 1439, Anesthesia Intra-op Given 07/16/2019 2:39 PM CDT 30 mg Lactated Ringer's (LR) infusion 30 mL/hr, intravenous, Continuous, Starting on Mon07/16/19 at 1200, Pre-Op New Bag 07/16/2019 4:20 PM CDT 30 mL/hr 30 mL/hr Rate/Dose Verify 07/16/2019 1:57 PM CDT New Bag 07/16/2019 11:46 AM CDT 30 mL/hr 30 mL/hr lidocaine PF (XYLOCAINE) 10 mg/mL (1 %) preservative free injection As needed, Starting on Mon07/16/19 at 1405, Anesthesia Intra-op Given 07/16/2019 2:05 PM CDT 100 mg midazolam (VERSED) preservative free injection intravenous, Administer over 2 Minutes, As needed, Starting on Mon07/16/19 at 1244, Anesthesia Intra-op Given 07/16/2019 12:58 PM CDT 2 mg Given 07/16/2019 12:44 PM CDT 3 mg ondansetron (ZOFRAN) injection intravenous, Administer over 2 Minutes, As needed, Starting on Mon07/16/19 at 1536, Anesthesia Intra-op Given 07/16/2019 3:36 PM CDT 4 mg phenylephrine (FRENCH-SYNEPHRINE) 1 mg/10 mL (100 mcg/mL) in sodium chloride 0.9% (premix) As needed, Starting on Mon07/16/19 at 1451, Anesthesia Intra-op Given 07/16/2019 2:51 PM CDT 100 mcg propofoL (DIPRIVAN) IV intravenous, As needed, Starting on Mon07/16/19 at 1405, Anesthesia Intra-op Given 07/16/2019 2:05 PM CDT 200 mg succinylcholine (ANECTINE) injection intravenous, As needed, Starting on Mon07/16/19 at 1406, Anesthesia Intra-op Given 07/16/2019 2:06 PM CDT 100 mg documented in this encounter Care Teams House Painter Helper Relationship Specialty Start Date End Date Jesusita Emmanuel MD PCP - General 07/16/19 07/31/19 documented as of this encounter
--- OUTSIDE RECORDS SUMMARY | 2024-02-21 19:40 | XMS_ITS | Encounter Summary ---
Author Organization [facility] Healthcare Address [address] [place] [address] Care Team Providers Care Real Estate Job Titles Name Role Phone Daily Cruz MD Primary Care Provider [phone] Reason for Referral * Diagnostic Imaging (Routine) - Closed Specialty Diagnoses / Procedures Referred By Matt burk Referred To Contact Diagnoses Left foot pain Procedures XR Foot Left 3 or More Views Charissa Holley MD Phone: tel: fax: [facility] Referral ID Status Reason Start Date Expiration Date Visits Re quested Visits Authorized [id number] Closed 08/27/2019 03/07/2021 1 1 Reason for Visit * Diagnostic Imaging (Routine) - Closed Specialty Diagnoses / Procedures Referred By Matt burk Referred To Contact Diagnoses Left foot pain Procedures XR Foot Left 3 or More Views Charissa Holley MD Phone: tel: fax: [facility] Referral ID Status Reason Start Date Expiration Date Visits Re quested Visits Authorized [id number] Closed 08/27/2019 03/07/2021 1 1 Encounter Details Date Type Department Care Team (Latest Contact Info) Description 08/29/2019 2:55 PM CDT - 08/29/2019 11:59 PM CDT Hospital Encounter [facility] Radiology at [facility] [address] [place] [address] Charissa Holley MD [address] [place] [address] Left foot pain Discharge Disposition: Discharge to [...] on file Legal Sex Female 3:37 PM WELLNESS DIRECTOR Gender Identity Female 03/02/2020 4:27 PM WELLNESS DIRECTOR Sexual Orientation Straight 07/10/2019 11 :13 PM CDT documented as of this encounter Medications at Time of Discharge albuterol HFA (PROVENTIL HFA,VENTOLIN HFA,PROAIR HFA) 90 mcg/actuation inhaler Inhale 2 puffs every 6 (six) hours as needed 2 aspirin 325 mg enteric coated tablet Take 1 tablet (325 mg total) by mouth daily 30 tablet 07/12/2019 0 hydroCHLOROthiaz reynaldo (HYDRODIURIL) 25 mg tablet Take 1 tablet (25 mg total) by mouth daily 30 tablet 08/13/2019 0 levonorgestreL (KYLEENA) IUD 1 each by intrauterine route once 3 methylPREDNISolo ne (MEDROL DOSEPACK) 4 mg Dosepack Take as directed on package. 21 tablet 08/13/2019 0 documented as of this encounter Discharge Disposition Disposition Code Departure Means Destination Discharge to home or self care documented in this encounter Plan of Treatment Not on file documented as of this encounter Procedures Procedure Name Priority Date/Time Associated Diagnosis Comments XR FOOT LEFT 3 OR MORE VIEWS Schedule Routine, Read Routine (OP Routine) 08/29/2019 3:12 PM CDT Left foot pain documented in this encounter Results * XR Foot Left 3 or More Views (08/29/2019 3:12 PM CDT) Anatomical Region Laterality Modality Lower Extremities, Foot Left Computed Radiography 08/29/2019 3:37 PM CDT Impressions 08/29/2019 3:53 PM CDT 1. ??Interval revised left 1st tarsometatarsal arthrodesis of the left foot Dictated by: Tacos Easton M.D. The radiology attending physician has personally reviewed this study, and had reviewed and/or edited this written report and agrees with it. Electronically signed by: Mina Miner M.D. Narrative 08/29/2019 3:53 PM CDT EXAMINATION: XR FOOT LEFT 3 OR MORE VIEWS HISTORY: ??Left foot tarsometatarsal arthrodesis FINDINGS: A three-view nonweightbearing examination of the left foot is submitted for interpretation with comparison to CT from 04/30/2019. There is a newly revised 1st tarsometatarsal arthrodesis transfixed by multiple screws. 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 ??The joint spaces are otherwise preserved. There is no acute fracture. ??There is mild soft tissue swelling about the left foot. Procedure Note Mina Miner MD - 08/29/2019 EXAMINATION: XR FOOT LEFT 3 OR MORE VIEWS HISTORY: Left foot tarsometatarsal arthrodesis FINDINGS: A three-view nonweightbearing examination of the left foot is submitted for interpretation with comparison to CT from 04/30/2019. There is a newly revised 1st tarsometatarsal arthrodesis transfixed by multiple screws. 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 The joint spaces are otherwise preserved. There is no acute fracture. There is mild soft tissue swelling about the left foot. IMPRESSION: 1. Interval revised left 1st tarsometatarsal arthrodesis of the left foot Dictated by: Tacos Easton M.D. The radiology attending physician has personally reviewed this study, and had reviewed and/or edited this written report and agrees with it. Electronically signed by: Mina Miner M.D. Charissa Holley MD IMG XR PROCEDURES Karen l Result documented in this encounter Visit Diagnoses Diagnosis Left foot pain Pain in soft tissues of limb documented in this encounter Care Teams Real Estate Job Titles Relationship Specialty Start Date End Date Daily Cruz MD PCP - General Family Medicine 08/01/19 03/03/21 documented as of this encounter
--- OUTSIDE RECORDS SUMMARY | 2024-02-21 19:40 | XMS_ITS | Encounter Summary ---
Author Organization [facility] Healthcare Address [address] [place] [address] Care Team Providers Care Level Glass Forming Machine Operator Name Role Phone Daily Cruz MD Primary Care Provider [phone] Encounter Details Date Type Department Care Team (Late st Contact Info) Description 10/10/2019 4:00 PM CDT - 10/14/2019 11:59 PM CDT Hospital Encounter [facility] Kassi Garcia PA [address] [address] Social History Tobacco Use Types Packs/Day Years [...] on file Legal Sex Female 3:37 PM PHARMACY COORDINATOR Gender Identity Female 03/02/2020 4:27 PM PHARMACY COORDINATOR Sexual Orientation Straight 07/10/2019 11 :13 PM CDT documented as of this encounter Medications at Time of Discharge albuterol HFA (PROVENTIL HFA,VENTOLIN HFA,PROAIR HFA) 90 mcg/actuation inhaler Inhale 2 puffs every 6 (six) hours as needed 2 aspirin 325 mg enteric coated tablet Take 1 tablet (325 mg total) by mouth daily 30 tablet 07/12/2019 0 hydroCHLOROthiaz reynaldo (HYDRODIURIL) 25 mg tablet TAKE 1 TABLET BY MOUTH EVERY DAY 30 tablet 4 09/06/2019 0 levonorgestreL (KYLEENA) IUD 1 each by intrauterine route once 3 methylPREDNISolo ne (MEDROL DOSEPACK) 4 mg Dosepack Take as directed on package. 21 tablet 08/13/2019 0 documented as of this encounter Plan of Treatment Not on file documented as of this encounter Visit Diagnoses Not on filedocumented in this encounter Care Teams Level Glass Forming Machine Operator Relationship Specialty Start Date End Date Daily Cruz MD PCP - General Family Medicine 08/01/19 03/03/21 documented as of this encounter
--- OUTSIDE RECORDS SUMMARY | 2024-02-21 19:40 | XMS_ITS | Encounter Summary ---
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 Identity Female 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[employer] Sexual Orientation Straight 07/10/2019 11 :13 PM CDT documented as of this encounter Last Filed Vital Signs Vital Sign Reading Time Taken Comments Blood Pressure 123/64 07/16/2019 5:10 PM CDT Pulse 70 07/16/2019 5:10 PM CDT Temperature 36.3 ??C (97.3 ??F) 07/16/2019 4:00 PM CD T Respiratory Rate 30 07/16/2019 5:10 PM CDT Oxygen Saturation 98% 07/16/2019 5:10 PM CDT Inhaled Oxygen Concentration - - Weight 122.5 kg (270 lb) 07/11/2019 10:10 AM CDT Height 170.2 cm (5' 7 ) 07/11/2019 10:10 AM CDT Body Mass Index 42.29 07/11/2019 10:10 AM CDT documented in this encounter Discharge Diagnoses Diagnosis 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 or arthrodesis - PSEUDARTHROSIS AFTER FUSION OR ARTHRODESIS Arthrodesis status Pain due to internal orthopedic prosthetic devices, implants and grafts, initial encounter (HCC) - PAIN DUE TO INTERNAL ORTHOPEDIC PROSTHETIC DEVICES, IMPLANTS AND GRAFTS, INITIAL ENCOUNTER Exposure to other specified factors, initial encounter - EXPOSURE TO OTHER SPECIFIED FACTORS, INITIAL ENCOUNTER Major depressive disorder, single episode, unspecified - MAJOR DEPRESSIVE DISORDER, SINGLE EPISODE, UNSPECIFIED Anxiety disorder, unspecified - ANXIETY DISORDER, UNSPECIFIED Gastro-esophageal reflux disease without esophagitis - GASTRO-ESOPHAGEAL REFLUX DISEASE WITHOUT ESOPHAGITIS Other chronic pain - OTHER CHRONIC PAIN Morbid (severe) obesity due to excess calories (HCC) - MORBID (SEVERE) OBESITY DUE TO EXCESS CALORIES Attention-deficit hyperactivity disorder, unspecified type - ATTENTION-DEFICIT HYPERACTIVITY DISORDER, UNSPECIFIED TYPE Migraine, unspecified, not intractable, without status migrainosus - MIGRAINE, UNSPECIFIED, NOT INTRACTABLE, WITHOUT STATUS MIGRAINOSUS Body mass index (BMI) 40.0-44.9, adult - BODY MASS INDEX (BMI) 40.0-44.9, ADULT Other surgical procedures as the cause of abnormal reaction of the patient, or of later complication, without mention of misadventure at the time of the procedure - OTHER SURGICAL PROCEDURES THE CAUSE OF ABNORMAL REACTION OF THE PATIENT, OR OF LATER COMPLICATION Unspecified place or not applicable - UNSPECIFIED PLACE OR NOT APPLICABLE documented in this encounter Discharge Instructions * Discharge Instructions* Charissa Holley MD - 07/16/2019 12:36 PM CDT POST-OPERATIVE INSTRUCTIONS FOOT AND ANKLE SURGERY MD Marylou Larson, Senior Office Support Assistant Sosa [phone] I am so glad that you chose to have your surgery here today. I hope that our facilities and staff have met your needs and made this a positive experience for you. Your follow up appointment date and time is included in your discharge paperwork. Until then, remember the following instructions: 1. ELEVATE: Keep your foot elevated (???toes above nose?? ) as much as possible for at least 7 days. This will help reduce swelling. Less swelling means less pain and better wound healing. We can reduce the risk of a postoperative infection simply by keeping the swelling down. 2. DRESSING CARE: Keep your surgical dressing clean and dry. You will need to cover the bandage with a tightly secured plastic bag when you shower or bathe to keep it from getting wet. Do not remove your bandage. 3. KEEP MOVING: Flex and extend your knees and hips ten times every hour. This will help maintain strength, flexibility and blood flow. Although you need to elevate the foot most of the time, get up about once every hour and move around to improve blood flow and reduce your risk for a blood clot. 4. CALL US AT [phone]: If any questions arise, please call. Specifically, we want to know if ??? You develop a fever ??? Your dressing or cast becomes too tight in spite of elevation ??? You have an increase in pain that is not relieved by elevation ??? You have an increase in numbness or tingling in your foot or toes ??? You notice significant drainage from the dressing 5. MEDICATIONS: You have been prescribed the medications to help with your surgical recovery. Take prescriptions only as directed on the bottle. Do not: drive, operate power tools or drink alcoholic beverages when taking these medications. Prescription refills will only be provided during office hours (8:00 AM to 4:30 PM Monday-Monday). 6. MANAGE PAIN: There will be pain after surgery. Most of the time, this is managed easily with some simple considerations. ??? Keeping your weight off of the foot and elevation are two important factors that help with painmanagement after surgery. ??? Taking pain medication before the nerve block wears off also helps reduce pain from surgery. Start the pain medication approximately 8-12 hours before the block is expected to wear off (expected around 24 hours after surgery). 7. DO NOT BEAR WEIGHT: Don???t put your weight on the operative foot unless directed to do so. Use crutches or some other device for assist with moving around. Stay in your current splint, boot, post-operative shoe or cast until your next follow up appointment. YOUR MEDICATIONS: ?? Tramadol for pain as needed (use with caution this is a narcotic) ?? Toradol 10 mg (ketorolac) for pain and inflammation x 4 days (to be taken until gone) start thiswhen you get home from surgery ?? Phenergan (promethazine) for nausea if needed ?? Senekot-S for constipation (take 1-2 times per day to avoid problems) ?? Full strength aspirin daily (325 mg) for blood clot prevention start the day after surgery, thisis OK to take with the ketorolac * Attachments The following attachments cannot be sent through Care Everywhere. * [facility] TO EXCELLENT CARE AFTER SURGERY * Scopolamine (Absorbed through the skin) (Qatari) documented in this encounter Medications at Time of Discharge albuterol HFA (PROVENTIL HFA,VENTOLIN HFA,PROAIR HFA) 90 mcg/actuation inhaler Inhale 2 puffs every 6 (six) hours as needed 2 aspirin 325 mg enteric coated tablet Take 1 tablet (325 mg total) by mouth daily 30 tablet 07/12/2019 0 ketorolac (TORADOL) 10 mg tablet Take 1 tablet every 6 hours until gone 16 tablet 07/12/2019 0 levonorgestreL (KYLEENA) IUD 1 each by intrauterine route once 3 promethazine (PHENERGAN) 12.5 mg tablet Take 1 tablet (12.5 mg total) by mouth every 6 (six) hours as needed for nausea or vomiting 30 tablet 1 07/12/2019 0 senna (SENOKOT) 8.6 mg tablet Take 1 tablet by mouth daily 30 tablet 07/12/2019 0 traMADoL (ULTRAM) 50 mg tablet Take 1 tablet (50 mg total) by mouth every 6 (six) hours as needed for pain 30 tablet 07/16/2019 0 documented as of this encounter Discharge Disposition Disposition Code Departure Means Destination Discharge to home or self care documented in this encounter H&P Notes * Charissa Holley MD - 07/16/2019 1:45 PM CDT The patient presents today for revision of a left first tarsometatarsal joint arthrodesis. Risks and benefits have been discussed. Informed consent was obtained. Source Note - Jean Fermin MD - 07/12/2019 10:08 AM CDT Images from the original note were not included. Center for Preoperative Assessment and Planning Preoperative Evaluation Record Evaluation type/location: TPAP from [facility] Planned procedure site: [facility] OR Date: 07/12/19 NOTE: This note represents [...] Cardiovascular Pertinent negatives: hypertension ; CAD ; [place] ; CABG ; valvular heart disease; valve [...] labs/tests include: review OSH labs being drawn [facility] and Covid 19 DOS hcg urine and [...] pre- procedure COVID19 testing to be performed 07/12/2019 at the [facility]. Surgeon to review. Patient instructions were provided in writing sent via [facility] mail and telephone. Patient verbalized understanding of [...] History: Procedure Laterality Date ??? FOOT SURGERY 2019 2 left bunion, [...] Last Dose Start Date End Date Provider hujcvhlkvdoal-iafrpgy-szwvwezy (EXCEDRIN MIGRAINE) 250-250-65 mg per tablet -- -- Historical Provider, albuterol HFA (Ventolin HFA) 90 mcg/actuation inhaler -- -- Historical Provider, levonorgestreL (KYLEENA) IUD -- -- Historical Provider, No current facility-administered medications for this encounter. Current Outpatient Medications: ??? hnnzwmygrqehf-vxetxdy-fdwcytna (EXCEDRIN MIGRAINE) 250-250-65 mg per tablet ??? [...] Medication protocol when under care of a LEATHER FITTER Planned anesthesia: General and PNB - single [...] All questions answered. documented in this encounter Miscellaneous Notes * Op Note - Charissa Holley MD - 07/16/2019 2:22 PM CDT OPERATIVE REPORT DATE OF SURGERY: 07/16/2019 SURGEON: Charissa Holley MD SURGICAL ASSISTANTS: Surgeon(s) and Role: * Charissa Holley MD - Primary * Shankar Ramirez MD - Resident - Assisting PRE-OPERATIVE DIAGNOSIS: Left first TMT joint nonunion Painful hardware left foot POST-OPERATIVE DIAGNOSIS: Left first TMT joint nonunion Painful hardware left foot OPERATIVE PROCEDURE: Revision left first tarsometatarsal joint nonunion Iliac crest bone graft Removal of deep hardware ANESTHESIA Choice INDICATIONS FOR PROCEDURE: The patient is a 28 y.o. year old female with a history of a left first tarsometatarsal joint arthrodesis for correction of a hallux valgus deformity. 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 CT scan shows some dorsal healing but it is essentially unhealed plantarly. She continues to have pain. She presents today for the procedure listed above. Risks and benefits of the procedure have been discussed and she chooses to proceed. OPERATIVE FINDINGS: Left first tarsometatarsal joint nonunion primarily plantarly. There is dorsal bone that has created some stability. Residual plate screws on the dorsal aspect of the first TMT joint PROCEDURE: The patient was greeted in the pre-operative holding area and the left foot was marked as the operative site. She was taken to the operating room and placed supine on the operating room table. A general anesthetic was administered. A tourniquet was applied to the left thigh and the left lower extremity was sterilely prepped and draped. A time out was held to confirm the left as the operative site. The tourniquet was elevated to 300 mmHg. A dorsal incision was made over the first tarsometatarsal joint in line with her old incision. Sharp dissection was carried out through the skin and blunt dissection was carried out through subcutaneous tissue. The extensor hallucis longus was retracted laterally. Dissection was carried out down tothe level the plate. Electrocautery as well as rongeur was used to remove soft tissue from the dorsum of the plate. The plate was removed by removing both proximal and distal screws as well as the long lag screw through the central portion of the plate. The plate was then easily elevated from the bone removed. A rongeur was used to debride the bone under the plate. The TMT joint was identified. There was stable bone growth dorsally. It was reviewed on fluoroscopic imaging. A small K-wire was placed down through the nonunion site. A sagittal saw was then used torecreate the first TMT joint and remove any bony bridging in order to reach the plantar nonunion. The saw was advanced until lamina agricultural agent could be placed to distract the first metatarsal from the medial cuneiform. The joint was irrigated. The plantar aspect of the joint was debrided of any fibrous tissue with a rongeur. A curette was used on both bony surfaces. A 2.0 millimeter drill was then used to drill both bony surfaces in order to enhance bony healing. Iliac crest bone graft was harvested from the left iliac crest. An incision was made over the iliaccrest. Sharp dissection was carried out through the skin and blunt dissection was carried out through the subcutaneous tissue. Electrocautery was used to open the fascia and the iliac crest was exposed a small periosteal elevator was used to elevate the soft tissues from the crest. Retractors were p laced and a small impactor was used to create a starting hole in the iliac crest. The Accumed Reamer was then passed in multiple passes to obtain graft. Once the graft was obtained the wound was irrigated. Gel-Foam was placed into the graft site. The deep tissue was closed with an 0 Vicryl suture, subcutaneous tissue was closed with a 3 0 Monocryl and the skin was closed with a running 3 0 Monocryl subcuticular stitch. Steri-Strips and a dry dressing were applied to the wound at the end the case. Iliac crest bone graft was packed into the fusion site. The fusion site was closed and provisionally pinned. A pin was placed across the first TMT joint. A second pin was placed from the base of the first metatarsal into the base of the second metatarsal. Position of the toe was checked on fluoroscopic imaging. Once the toe was appropriately aligned twoguidewires from the Synthes 4.0 millimeter cannulated screw set were placed across the first tarsometatarsal joint. The first was placed from distal proximal ending at the plantar aspect of the cuneiform. The second was placed from proximal to distal extending out the plantar aspect of the first metatarsal. These were checked on fluoroscopic imaging. Pins were repositioned in order to get the best fixation. Once they were appropriately positioned each pin was measured, overdrilled and two screws were placed. Each were 4.0 millimeter cannulated Synthes screws. Finally, a guidewire was placed from the base of the first metatarsal into the second metatarsal capturing four cortices. This was checked on fluoroscopic imaging. The intermetatarsal space was compressed manually. A small incision was made over the guidewire. Blunt dissection was carried out down to the level of bone. The guidewire was measured, overdrilled and a 4.0 millimeter cannulated screw was placed from the base of the first metatarsal into the second in order to further close the intermetatarsal space and maintained alignment of the great toe. Final images were checked AP, lateral oblique views of the foot. All hardware was in good position.A final irrigation was performed of the nonunion site. A Geary elevator was used to confirm that the surfaces were compressed. A small trough was created in the dorsal aspect of the joint in order topack additional bone graft. The bone graft was packed easily. Subcutaneous tissue was closed with a3.0 Monocryl taking care to protect the extensor hallucis longus tendon. After final irrigation, the subcutaneous tissue was closed with a 3.0 monocryl and the skin was closed with a 4.0 prolene. she was placed in a bulky compressive splint at the end of the case. Edilia Holley was present for the entire case from skin incision to application of the dressing COMPLICATIONS: none CONDITION: stable ESTIMATED BLOOD LOSS: No blood loss documented. TOURNIQUET TIME: Total Tourniquet Time Documented: Thigh (Left) - 83 minutes Total: Thigh (Left) - 83 minutes DISPOSITION: The patient will be Non-weightbearing on the left lower extremity. At the time of discharge, she will follow up with me in 14-21 days. RADIOGRAPHS AT FOLLOW UP: none Charissa Holley MD DATE: 07/16/2019 TIME: 3:44 PM * Pre-Procedure Instructions - Carissa Hector NP - 07/12/2019 10:32 AM CDT Center for Preoperative Assessment and Planning CPAP Clinic Location: [facility] The night before your surgery: * Do not eat or drink anything after midnight. This includes candy, mint, gums, chewable antacids (TUMS, Rolaids) and cough drops The morning of your surgery: * You may brush your teeth and rinse your mouth out. * Do not wear jewelry, body piercings, makeup, hairpins, false eyelashes or contact lenses to the hospital. * Leave any valuables at home or with your family. You may want to bring a credit card if you want to use our Mobile Pharmacy for your discharge medications. If you have an implantable device with a remote, bring the remote with you on the day of surgery. Outpatient Surgery: * You must have a [...] Your Medications: Pre-Surgery Instructions: Medication Instructions ??? gpgpvutizyayr-johzcps-rjwuoser (EXCEDRIN MIGRAINE) 250-250-65 mg per tablet Don't take on day of surgery ??? albuterol HFA (Ventolin HFA) 90 mcg/actuation inhaler Take on day of surgery if needed General Instructions For Medications: ?? If prescribed a non-steroidal anti-inflammatory such as Celebrex, Meloxicam, or Naproxen by yoursurgeon, take as prescribed prior to surgery and discontinue all other non-steroidal anti-inflammatory medications such as excedrin, motrin, advil, ibuprofen, naproxen, aleve, meloxicam, celebrex, and celecoxib 5 days prior to surgery ?? If undergoing a neurological or spine procedure, stop all of these medications 5 days prior to your surgery: excedrin, motrin, advil, ibuprofen, aleve, naproxen, meloxicam, celebrex, celecoxib. ?? Stop all of these medications 7-14 days prior to your surgery: Vitamin E, Herbal medicines, DietPills ?? If you use inhalers, please bring them with you on the day of your procedure. ?? If you have pain, you may take tylenol (acetaminophen). Do not take more than 6 tablets or 3000 mg (3 g) within a 24 period. Call your surgeon and the CPAP clinic [...] before surgery * Perioperative Nursing Note - Arturo Morel RN - 07/11/2019 10:18 AM CDT Center for Preoperative Assessment and Planning Perioperative Nursing Note Telephone Preoperative Evaluation ([facility]) - TELEPHONE ONLY, NO PHYSICAL EXAM Date: 07/11/19 Vitals: 07/11/19 1010 Weight: 122.5 kg (270 lb) Height: 170.2 cm (5' 7 ) CHEST CIRCUMFERENCE: Social History Tobacco Use Smoking Status Never Smoker Smokeless Tobacco Never Used Substance and Sexual Activity Alcohol Use Yes Comment: RARE Substance and Sexual Activity Drug Use Never Outpatient Medications Marked as Taking for the 6/2/20 encounter (Hospital Encounter) with Charissa Holley MD Medication Sig Dispense Refill ??? dvhntjyeboozy-ygtfyzq-nirfezuf (EXCEDRIN MIGRAINE) 250-250-65 mg per tablet Take 1 tablet by mouth every 4 (four) hours as needed ??? albuterol HFA (Ventolin HFA) 90 mcg/actuation inhaler Inhale 2 puffs every 6 (six) hours as needed ??? levonorgestreL (KYLEENA) IUD 1 each by intrauterine route once Implants No active implants to display in this view. SKIN Piercings Remaining: Yes Wound (LDAs) Type of Wound (LDA): (PATIENT DENIES) SCREENINGS Wolff Fall Risk Score (Retired): 15 Capo index score: 100 Is someone currently physically or emotionally hurting you or your family?: Denies NUTRITION PATIENT CARE PLANNING Advance Directives (For Healthcare) Advance Directive: Patient does not have advance directive Communication/Operations Trainer Needs Communication Needs: None Assistive Devices/DME: Eyeglasses Discharge Planning Type of Residence: Private residence Living Arrangements: Spouse/significant other Support Systems: Spouse/significant other(BOYFRIEND WILL BE PAVING AND SURFACING LABOURER AND HELPER) Patient expects to be discharged to:: Private residence ADDITIONAL COMMENTS/ FOLLOW UP SETUP TO DO COVID TEST ON 07/12/19 AT [facility] * Pre-Procedure Instructions - Arturo Mroel RN - 07/11/2019 10:16 AM CDT PRE-SURGICAL INSTRUCTIONS ??? General Information ?? [...] insurance card, a photo ID (like a Furniture Manager's license) and a method of payment for [...] have someone help you with your shower. Rinse thoroughly and dry yourself off with [...] hair products the morning of the surgery. ? If your surgeon's office has not notified you of your surgery time by NOON THE DAY BEFORE your surgery, please call [phone] and ask for your surgeon's office DR HOLLEY documented in this encounter Plan of Treatment Not on file documented as of this encounter Procedures Procedure Name Priority Date/Time Associated Diagnosis Comments BONE GRAFT - ILIAC CREST 07/16/2019 2:00 PM CDT 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 or arthrodesis Painful orthopaedic hardware (CMS/HCC) ARTHRODESIS FOOT 07/16/2019 2:00 PM CDT 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 or arthrodesis Painful orthopaedic hardware (CMS/HCC) POCT HCG, URINE Routine 07/16/2019 11:34 AM CDT documented in this encounter Results * POCT hCG, urine (07/16/2019 11:34 AM CDT) HCG, ur, POC Negative Lot Number [id number] QC Backgroud Clear Acceptable QC Control Line Acceptable Urine 07/16/2019 11:3 4 AM CDT Carissa Hector NP POINT OF CARE TEST ORDERABLES Final Result documented in this encounter Visit Diagnoses Diagnosis 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 or arthrodesis Arthrodesis status Painful orthopaedic hardware (HCC) documented in this encounter Admitting Diagnoses Diagnosis 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 or arthrodesis Arthrodesis status Painful orthopaedic hardware (HCC) documented in this encounter Administered Medications Inactive Administered Medications - up to 3 most recent administrations Medication Order MAR Action Action Date Dose Rate Site acetaminophen (TYLENOL) tablet 500 mg 500 mg, oral, Once, On Mon07/16/19 at 1200, For 1 dose, Pre-Op Given 07/16/2019 11:51 AM CDT 500 mg famotidine (PEPCID) injection 20 mg 20 mg, intravenous, Administer over 2 Minutes, Once, On Mon07/16/19 at 1200, For 1 dose, Pre-Op Given 07/16/2019 11:53 AM CDT 20 mg fentaNYL (SUBLIMAZE) preservative free injection 25 mcg 25 mcg, intravenous, Every 10 min PRN, 1st line for pain, Starting on Mon07/16/19 at 1604, Phase I, Switch to 2nd line analgesic order if pain is uncontrolled or increasing after 2 doses. Notify Anesthesiologist if total PACU dose reaches 100 mcg and pain score 5/10 or more., Indications: PainIndications:Pain Given 07/16/2019 4:35 PM CDT 25 mcg Given 07/16/2019 4:14 PM CDT 25 mcg gabapentin (NEURONTIN) capsule 300 mg 300 mg, oral, Once, On Mon07/16/19 at 1200, For 1 dose, Pre-Op Given 07/16/2019 11:51 AM CDT 300 mg Lactated Ringer's (LR) infusion 30 mL/hr, [...] needed, pain with IV placement, Starting on Mon07/16/19 at 1117, For 1 dose, Pre-Op, Administer volume needed to infiltrate IV site. prochlorperazine (COMPAZINE) 10 mg/2 mL (5 mg/mL) injection - ADS Override Pull Starting on Mon07/16/19 at 1606, For 1 dose, Created by cabinet override prochlorperazine (COMPAZINE) injection 5 mg 5 mg, intravenous, Once as needed, nausea, vomiting, Starting on Mon07/16/19 at 1604, For 1 dose, Phase I, If nausea/vomiting not relieved by ondansetron within 30 minutes or if ondansetron has been given within the last 6 hours. Given 07/16/2019 4:09 PM CDT 5 mg scopolamine patch 72 hour 1 patch 1 patch, transdermal, Administer over 72 Hours, Once, On Mon07/16/19 at 1200, For 1 dose, Pre-Op Medication Applied 07/16/2019 11:50 AM CDT 1 patch Behind Right Ear sodium chloride 0.9% flush 0.5-20 mL 0.5-20 mL, intra-catheter, As needed, line care, Starting on Mon07/16/19 at 1117, Pre-Op, Flush volume based on line type and size. Flush before and after each use. traMADoL (ULTRAM) tablet 50 mg 50 mg, oral, Once as needed, 1st line for pain, once tolerating PO, Starting on Mon07/16/19 at 1228, For 1 dose, Pre-Op Given 07/16/2019 4:40 PM CDT 50 mg documented in this encounter Discontinued Medications Medication Sig Discontinue Reason Start Date End Da te LORazepam (Ativan) 1 mg tablet Therapy completed 07/11/2019 acetaminophen-aspirin- caffeine (EXCEDRIN MIGRAINE) 250-250-65 mg per tablet Take 1 tablet by mouth every 4 (four) hours as needed Stop Taking at Discharge 07/16/2019 HYDROcodone-acetaminop hen (NORCO) 5-325 mg per tabletIndications:Pain Take 1-2 every 4-6 hours as needed for pain Stop Taking at Discharge 07/15/2019 07/16/2019 documented as of this encounter Active and Recently Administered Medications Times are shown in CDT. Scheduled Medication Order 07/14/2019 07/15/2019 07/16/2019 acetaminophen (TYLENOL) tablet 500 mg (COMPLETED) 500 mg, oral, Once, On Mon07/16/19 at 1200, For 1 dose, Pre-Op 1151 (Given - Provid er: Latisha Hull RN) famotidine (PEPCID) injection 20 mg (COMPLETED) 20 mg, intravenous, Administer over 2 Minutes, Once, On Mon07/16/19 at 1200, For 1 dose, Pre-Op 1153 (Given - Provid er: Latisha Hull RN) gabapentin (NEURONTIN) capsule 300 mg (COMPLETED) 300 mg, oral, Once, On Mon07/16/19 at 1200, For 1 dose, Pre-Op 1151 (Given - Provid er: Latisha Hull RN) scopolamine patch 72 hour 1 patch 1 patch, transdermal, Administer over 72 Hours, Once, On Mon07/16/19 at 1200, For 1 dose, Pre-Op 1150 (Medication Richard lied - Provider: Latisha Hull RN)0991 (Due: Medication Removed - Provider: Automatic Discharge Provider - Comment: Time automatically adjusted from order being discontinued) Continuous Medication Order 07/14/2019 07/15/2019 07/16/2019 Lactated Ringer's (LR) infusion 30 mL/hr, intravenous, Continuous, Starting on Mon07/16/19 at 1200, Pre-Op 1146 (New Bag - Prov ider: Latisha Hull RN)1357 (Rate/Dose Verify - Provider: Eros Recinos CRNA)1554 (Anesthesia Volume Adjustment - Provider: Eros Recinos CRNA)1620 (New Bag - Provider: Bre Gutierrez RN)1716 (Stopped - Provider: Ber Gutierrez RN) PRN Medication Order 07/14/2019 07/15/2019 07/16/2019 bupivacaine (MARCAINE) 0.5 % (5 mg/mL) preservative free injection (CANCELED) As needed, Starting on Mon07/16/19 at 1542, Intra-Op 1542 (Given - Provid er: Charissa Holley MD) fentaNYL (SUBLIMAZE) preservative free injection 25 mcg 25 mcg, intravenous, Every 10 min PRN, 1st line for pain, Starting on Mon07/16/19 at 1604, Phase I, Switch to 2nd line analgesic order if pain is uncontrolled or increasing after 2 doses. Notify Anesthesiologist if total PACU dose reaches 100 mcg and pain score 5/10 or more., Indications: Pain 1614 (Given - Provid er: Bre Gutierrez RN)1635 (Given - Provider: Bre Gutierrez RN) fentaNYL (SUBLIMAZE) preservative free injection 50 mcg 50 mcg, intravenous, Once as needed, uncontrolled pain on PACU admission, Starting on Mon07/16/19 at 1604, For 1 dose, Phase I, Then proceed to PACU 1st line analgesic., Indications: Pain fentaNYL (SUBLIMAZE) preservative free injection 50 mcg 50 mcg, intravenous, Every 10 min PRN, 2nd line for pain, Starting on Mon07/16/19 at 1604, Phase I, May administer 10 mintes after 2nd dose of 1st line analgesic agent for uncontrolled or increasing pain. Revert to 1st line dose if POSS of 3. Notify Anesthesiologist if total PACU dose reaches 100 mcg and pain score 5/10 or more., Indications: Pain lidocaine PF (XYLOCAINE) 10 mg/mL (1 %) preservative free injection 2-10 mg 2-10 mg (0.2-1 mL), other, Once as needed, pain with IV placement, Starting on Mon07/16/19 at 1117, For 1 dose, Pre-Op, Administer volume needed to infiltrate IV site. naloxone (NARCAN) 0.4 mg/mL injection 0.04-0.4 mg 0.04-0.4 mg, intravenous, Once as needed, other, excessive sedation/respiratory depression, Starting on Mon07/16/19 at 1604, For 1 dose, Phase I, Dilute 0.4 [...] Once as needed, nausea, vomiting, Starting on Mon07/16/19 at 1604, For 1 dose, Phase I, Proceed to prochlorperazine if ondansetron has been given within the last 6 hours. prochlorperazine (COMPAZINE) injection 5 mg (COMPLETED) 5 mg, intravenous, Once as needed, nausea, vomiting, Starting on Mon07/16/19 at 1604, For 1 dose, Phase I, If nausea/vomiting not relieved by ondansetron within 30 minutes or if ondansetron has been given within the last 6 hours. 1609 (Given - Provid er: Bre Gutierrez RN) sodium chloride 0.9 % irrigation (CANCELED) As needed, Starting on Mon07/16/19 at 1432, Intra-Op 1432 (Given - Provid er: Charissa Holley MD) sodium chloride 0.9% flush 0.5-20 mL 0.5-20 mL, intra-catheter, As needed, line care, Starting on Mon07/16/19 at 1117, Pre-Op, Flush volume based on line type and size. Flush before and after each use. traMADoL (ULTRAM) tablet 50 mg (COMPLETED) 50 mg, oral, Once as needed, 1st line for pain, once tolerating PO, Starting on Mon07/16/19 at 1228, For 1 dose, Pre-Op 1640 (Given - Provid er: Bre Gutierrez RN) documented in this encounter Orders Medications Ordered That Gerhard ht Not Have Been Administered Count Last Ordered Date First Ordered Date bupivacaine (MARCAINE) 0.5 % (5 mg/mL) preservative free injection 1 07/16/2019 fentaNYL (SUBLIMAZE) preserv ative free injection 50 mcg 2 07/16/2019 lidocaine PF (XYLOCAINE) 10 mg/mL (1 %) preservative free injection 2-10 mg 1 07/16/2019 naloxone (NARCAN) 0.4 mg/mL injection 0.04-0.4 mg 1 07/16/2019 ondansetron (ZOFRAN) injection 4 mg 1 07/15 sodium chloride 0.9 % irrigation 1 07/16/19 20 sodium chloride 0.9% flush 0.5-20 mL 1 03/2019 documented in this encounter Care Teams Oracle Etl Developer Relationship Specialty Start Date End Date Jesusita Emmanuel MD PCP - General 07/16/19 07/31/19 documented as of this encounter
--- OUTSIDE RECORDS SUMMARY | 2024-02-21 19:40 | XMS_ITS | Encounter Summary ---
Author Organization [facility] Address [address] [place] [address] Phone Care Team Providers Care Cafeteria Cook Name Role Phone Daily Cruz MD Primary Care Provider [phone] Reason for Visit * Reason Comments Post-op Encounter Details Date Type Department Care Team (Late st Contact Info) Description 08/05/2019 1:30 PM CDT Office Visit [facility] Orthopaedic Surgery [address] 1st [address] [place] [address] Charissa Holley MD [address] [place] [address] Orthopedic aftercare (Primary Dx) Social History Tobacco Use Types [...] on file 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 Date of Surgery: 07/16/2019 The patient returns today for the left foot. She is now 2-3 weeks post operative. She denies feversor chills. She reports pain has been well controlled. She is adhering to her weight-bearing precautions. PHYSICAL EXAMINATION The left foot is in good condition. Swelling is none and minimal. The wound is clean and dry with no erythema or signs of infection. Sutures are removed with steri strips placed on the wound today. Sensation is grossly intact to light touch. REVIEW OF X-RAYS/STUDIES No new radiographs today IMPRESSION/DIAGNOSIS Post above-stated procedure doing well TREATMENT/PLAN The patient was placed in a short leg nonweightbearing cast made of synthetic materials. She will remain nonweightbearing until next follow up. She may continue to ice and elevate for comfort. Restrictions were discussed. The patient was encouraged to call us if any questions or concerns arise. FOLLOW UP Follow up in 3 weeks Next visit: radiographs of the left foot Charissa Holley MD Set Off Press Operator Foot & Ankle Service [facility] Orthopedics Dr. Charissa Holley dictating using [employer] Speaking Software. Planer Setup Operator variances may occur. * Jodee Phan ATC - 08/05/2019 1:30 PM CDTAssociated Order(s): Ortho Casting/Splinting Documentation Post-Procedure Diagnose(s): Orthopedic aftercare Ortho Casting/Splinting Documentation Date/Time: 08/05/2019 3:07 PM Performed by: Jodee Phan ATC Authorized by: Charissa Holley MD Sensation: Normal Skin Condition: Clean, dry, and intact (Incision examined by provider.) Jose/Sutures Removed: Yes Pin Pulled: No Cast Removed: Yes Cast Applied: Yes Location: Foot Foot: L foot Cast type: Short leg non weightbearing cast Supplies: Cotton stocking/sleeve, cotton Padding, felt malleolar pads, felt tiba pads, foam paddingand fiberglass Number of fiberglass rolls used: 6 Capillary Refill: Normal Patient tolerance of procedure: Tolerated well, no immediate complications Pt has history of swelling in feet and legs. Previous splint rubbed over heel, so extra padding used over posterior heel. documented in this encounter Plan of Treatment Not on file documented as of this encounter Procedures Procedure Name Priority Date/Time Associated Diagnosis Comments ORTHO CASTING/SPLINTING Routine 08/05/2019 1:30 PM CDT Orthopedic aftercare documented in this encounter Results * Ortho Casting/Splinting Documentation (08/05/2019 1:30 PM CDT) Narrative Jodee Phan ATC - 08/05/2019 1:30 PM CDT Jodee Phan ATC ? 08/05/2019 ??3:09 PM Ortho Casting/Splinting Documentation Date/Time: 08/05/2019 3:07 PM Performed by: Jodee Phan ATC Authorized by: Charissa Holley MD Sensation: ??Normal Skin Condition: ??Clean, dry, and intact (Incision examined by provider.) [place]/Sutures Removed: Yes ?? Pin Pulled: No ?? Cast Removed: Yes ?? Cast Applied: Yes ?? Location: ??Foot Foot: ??L foot Cast type: ??Short leg non weightbearing cast Supplies: ??Cotton stocking/sleeve, cotton Padding, felt malleolar pads, felt tiba pads, foam padding and fiberglass Number of fiberglass rolls used: ??6 Capillary Refill: ??Normal Patient tolerance of procedure: ??Tolerated well, no immediate complications Pt has history of swelling in feet and legs. Previous splint rubbed over heel, so extra padding used over posterior heel. us Charissa Holley MD [facility] CL[facility] Final Result documented in this encounter Visit Diagnoses Diagnosis Orthopedic aftercare- Primary Unspecified orthopedic aftercare documented in this encounter Care Teams Cafeteria Cook Relationship Specialty Start Date End Date Daily Cruz MD PCP - General Family Medicine 08/01/19 03/03/21 documented as of this encounter
--- OUTSIDE RECORDS SUMMARY | 2024-02-21 19:40 | XMS_ITS | Encounter Summary ---
Author Organization [facility] Address [address] [place] [address] Care Team Providers Care Barn Operator Name Role Phone Jaime Dexter MD Primary Care Provider [phone] Encounter Details Date Type Department Care Team (Late st Contact Info) Description 12/19/2019 Orders Only [facility] Testing Site - [address] [place] [address] Jaime Dexter MD [facility] [address] [address] Exposure to SARS-associated coronavirus (Primary Dx) Social History Tobacco Use Types [...] on file 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 Comment: ?? Order Specific Questions Question Answer Comment Testing types: Symptomatic without high risk condition ?? Date of symptom onset 12/15/2019 ?? Date testing requested: 12/19/2019 ?? Testing: COVID-RNA ?? Is this the first COVID-19 test for this patient? Yes ?? Does the patient currently work in a healthcare facility with direct patient contact? No ?? Is the patient a resident of a congregate care or living setting? No ?? Is the patient ? No ?? Please select the performing region: [facility] PRESS OPERATOR documented in this encounter Plan of Treatment Not on file documented as of this encounter Procedures Procedure Name Priority Date/Time Associated Diagnosis Comments COVID-19 ORONAVIRUS RNA (OUTSIDE LABS) Routine 12/19/2019 11:59 AM DRAW PRESS OPERATOR Exposure to SARS-associated coronavirus documented in this encounter Results * (ABNORMAL) COVID-19 CORONAVIRUS RNA (OUTSIDE LABS) Nasopharyngeal (12/19/2019 11:59 AM DRAW PRESS OPERATOR) COVID-19 Coronavirus RNA DETECTED( A) NOT DETECTED [facility] Comment: A Detected result is considered a positive test result for COVID-19. ??This indicates that RNA from SARS-CoV-2 (formerly 2019-nCoV) was detected, and the patient is infected with the virus and presumed to be contagious. If requested by public health authority, specimen will be sent for additional testing. Please review the Fact Sheets and FDA authorized labeling available for health care providers and patients using the following websites: https://www.[employer].TrendU/home/Covid-19/HCP/NAAT/fact-sheet2 https://www.[employer].TrendU/home/Covid-19/Patients/NAAT/ fact-sheet2 ?? This test has been authorized by the FDA under an Emergency Use Authorization (EUA) for use by authorized laboratories. Due to the current public health emergency, [facility] is receiving a high volume of samples from a wide variety of swabs and media for COVID-19 testing. In order to serve patients during this public health crisis, samples from appropriate clinical sources are being tested. Negative test results derived from specimens received in non-commercially manufactured viral collection and transport media, or in media and sample collection kits not yet authorized by FDA for COVID-19 testing should be cautiously evaluated and the patient potentially subjected to extra precautions such as additional clinical monitoring, including collection of an additional specimen. Methodology: ??Nucleic Acid Amplification Test (NAAT) includes RT-PCR or TMA ?? Additional information about COVID-19 can be found at the [facility] website: www.[employer].TrendU/Covid19. Nasopharyngeal 12/19/2019 11 :59 AM DRAW PRESS OPERATOR 12/20/2019 2:33 AM DRAW PRESS OPERATOR Jaime Dexter MD LAB MICROBIOLOGY - [facility] L ORDERABLES Final Result [address] [address] [place] [address] documented in this encounter Visit Diagnoses Diagnosis Exposure to SARS-associated coronavirus- Primary documented in this encounter Care Teams Barn Operator Relationship Specialty Start Date End Date Jaime Dexter MD PCP - General Family Medicine 08/01/19 03/03/21 documented as of this encounter
--- OUTSIDE RECORDS SUMMARY | 2024-02-21 19:40 | XMS_ITS | Encounter Summary ---
Author Organization [facility] Address [address] [place] [address] Phone Care Team Providers Care Draw Tender Name Role Phone Jesusita Emmanuel MD Primary Care Provide r Encounter Details Date Type Department Care Team (Late st Contact Info) Description 07/17/2019 Telephone [facility] Orthopaedic Surgery [address] 1st [address] [place] [address] Charissa Holley MD [address] [place], [place] [id number] Social History Tobacco Use Types Packs/Day Years [...] on file 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 She reports that she is doing well with pain medication and elevation. I reminded her to work on ROM exercises of her LE in order to increased circulation. She does not have any questions or concerns at this time. She will follow up with Dr. Holley as scheduled, but will call before that time if she has any questions or concerns before that time. documented in this encounter Plan of Treatment Not on file documented as of this encounter Visit Diagnoses Not on filedocumented in this encounter Care Teams Draw Tender Relationship Specialty Start Date End Date Jesusita Emmanuel MD PCP - General 07/16/19 07/31/19 documented as of this encounter
--- OUTSIDE RECORDS SUMMARY | 2024-02-21 19:40 | XMS_ITS | Encounter Summary ---
Author Organization [facility] Address [address] [place] [address] Care Team Providers Care Automatic Coin Machine Mechanic Name Role Phone Daily Cruz MD Primary Care Provider [phone] Encounter Details Date Type Department Care Team (Late st Contact Info) Description 08/08/2019 Telephone [facility] Family Medicine [address] [place] [address] Daily Cruz MD [address] [place] [address] [address] [place] [address] Social History Tobacco Use Types [...] on file 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 * Telephone Encounter - Zan Martínez - 08/08/2019 2:35 PM CDT Patient called said that her script for Lasix 20 mg was sent to [facility] but [facility] isn't refilling any medication today because they are switching over to [facility]. So patient wants to know if medication can be sent to the [facility] [address] [place] [address] in [place] documented in this encounter Plan of Treatment Not on file documented as of this encounter Visit Diagnoses Not on filedocumented in this encounter Discontinued Medications Medication Sig Discontinue Reason Start Date End Da te furosemide (LASIX) 20 mg tablet Take 1 tablet (20 mg total) by mouth daily Reorder 08/08/2019 08/08/2019 documented as of this encounter Care Teams Automatic Coin Machine Mechanic Relationship Specialty Start Date End Date Daily Cruz MD PCP - General Family Medicine 08/01/19 03/03/21 documented as of this encounter
--- OUTSIDE RECORDS SUMMARY | 2024-02-21 19:40 | XMS_ITS | Encounter Summary ---
Author Organization [facility] Address [address] [place] [address] Phone Care Team Providers Care Green Ware Caster Name Role Phone Jesusita Emmanuel MD Primary Care Provide r Reason for Visit * Reason Comments Post-op Encounter Details Date Type Department Care Team (Late st Contact Info) Description 07/25/2019 11:00 AM CDT Office Visit [facility] Orthopaedic Surgery [address] 1st [address] [place] [address] Charissa Holley MD [address] [place] [address] Orthopedic aftercare (Primary Dx) Social History Tobacco [...] on file 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 Gender Identity Female 03/02/2020 4:27 PM PAYMASTER OF PURSES Sexual Orientation Straight 07/10/2019 11 :13 PM CDT documented as of this encounter Ordered Prescriptions Prescription Sig Dispense Quantity Refills Last Filled Start Date End Date clindamycin (CLEOCIN) 300 mg capsule Take 1 capsule (300 mg total) by mouth 3 (three) times a day for 10 days 30 capsule 07/25/2019 0 documented in this encounter Progress Notes * Charissa Holley MD - 07/25/2019 11:00 AM CDT POST OP VISIT INTERIM HISTORY Surgical Procedure: Revision left first tarsometatarsal joint nonunion Iliac crest bone graft Removal of deep hardware Date of Surgery: 07/16/2019 The patient returns today for the left foot. She is now 2-3 weeks post operative. She denies feversor chills. She reports that her heel was burning in this splint. PHYSICAL EXAMINATION The left foot is in good condition. Swelling is mild. The wound is clean and dry with [...] concerns arise. FOLLOW UP Follow up in 1 week Next visit: no radiographs needed Charissa Holley MD Supervisor Component Assembler Foot & Ankle Service [facility] Orthopedics Dr. Charissa Holley dictating using [employer] Speaking Software. Business Analyst Ecommerce variances may occur. * Jodee Phan ATC - 07/25/2019 11:00 AM CDTAssociated Order(s): Ortho Casting/Splinting Documentation Post-Procedure Diagnose(s): Orthopedic aftercare Ortho Casting/Splinting Documentation Date/Time: 07/25/2019 12:23 PM Performed by: Jodee Phan ATC Authorized by: Charissa Holley MD Sensation: Normal Skin Condition: Clean, dry, and intact (incision examined by provider.) [place]/Sutures Removed: No (incision redressed with xeroform) Pin Pulled: No Cast Removed: Yes Cast Applied: Yes Location: Foot Foot: L foot Cast type: Short leg non weightbearing cast Supplies: Cotton stocking/sleeve, cotton Padding, felt malleolar pads, felt padding, foam padding and fiberglass Number of fiberglass rolls used: 5 Capillary Refill: Normal Patient tolerance of procedure: Tolerated well, no immediate complications Extra padding over incision and over posterior heel. documented in this encounter Miscellaneous Notes * Addendum Note - Padmini Warren RMA - 07/25/2019 11:00 AM CDTAddended by: PADMINI WARREN on: 07/25/2019 11:50 AM Modules accepted: Orders documented in this encounter Plan of Treatment Not on file documented as of this encounter Procedures Procedure Name Priority Date/Time Associated Diagnosis Comments ORTHO CASTING/SPLINTING Routine 07/25/2019 11:00 AM CDT Orthopedic aftercare documented in this encounter Results * Ortho Casting/Splinting Documentation (07/25/2019 11:00 AM CDT) Narrative Jodee Phan ATC - 07/25/2019 11:00 AM CDT Jodee Phan ATC ? 07/25/2019 12:24 PM Ortho Casting/Splinting Documentation Date/Time: 07/25/2019 12:23 PM Performed by: Jodee Phan ATC Authorized by: Charissa Holley MD Sensation: ??Normal Skin Condition: ??Clean, dry, and intact (incision examined by provider.) [place]/Sutures Removed: No (incision redressed with xeroform) ?? Pin Pulled: No ?? Cast Removed: Yes ?? Cast Applied: Yes ?? Location: ??Foot Foot: ??L foot Cast type: ??Short leg non weightbearing cast Supplies: ??Cotton stocking/sleeve, cotton Padding, felt malleolar pads, felt padding, foam padding and fiberglass Number of fiberglass rolls used: ??5 Capillary Refill: ??Normal Patient tolerance of procedure: ??Tolerated well, no immediate complications Extra padding over incision and over posterior heel. us Charissa Holley MD IN CLINIC/BEDSIDE [facility] Final Result documented in this encounter Visit Diagnoses Diagnosis Orthopedic aftercare- Primary Unspecified orthopedic aftercare documented in this encounter Care Teams Green Ware Caster Relationship Specialty Start Date End Date Jesusita Emmanuel MD PCP - General 07/16/19 07/31/19 documented as of this encounter
--- OUTSIDE RECORDS SUMMARY | 2024-02-21 19:40 | XMS_ITS | Encounter Summary ---
Author Organization [facility] Address [address] [place] [address] Phone Care Team Providers Care Room Service Bellhop Name Role Phone Jesusita Emmanuel MD Primary Care Provide r Encounter Details Date Type Department Care Team (Late st Contact Info) Description 07/16/[address] 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 Gender Identity Female 03/02/2020 4:27 PM ALUM PLANT SUPERVISOR Sexual Orientation Straight 07/10/2019 11 :13 PM CDT documented as of this encounter Ordered Prescriptions Prescription Sig Dispense Quantity Refills Last Filled Start Date End Date traMADoL (ULTRAM) 50 mg tablet Take 1 tablet (50 mg total) by mouth every 6 (six) hours as needed for pain 30 tablet 07/16/2019 08/01/2019 documented in this encounter Plan of Treatment Not on file documented as of this encounter Visit Diagnoses Not on filedocumented in this encounter Care Teams Room Service Bellhop Relationship Specialty Start Date End Date Jesusita Emmanuel MD PCP - General 07/16/19 07/31/19 documented as of this encounter
--- OUTSIDE RECORDS SUMMARY | 2024-02-21 19:40 | XMS_ITS | Encounter Summary ---
Author Organization [facility] Address [address] [place] [address] Phone Care Team Providers Care Traffic Engineering Director Name Role Phone Daily Cruz MD Primary Care Provider [phone] Reason for Referral * Diagnostic Imaging (Routine) - Closed Specialty Diagnoses / Procedures Referred By Matt burk Referred To Contact Radiology Diagnoses Left foot pain Procedures CT Foot Left WO Contrast Charissa Holley MD Phone: tel: fax: [facility] Referral ID Status Reason Start Date Expiration Date Visits Re quested Visits Authorized [id number] Closed 10/30/2019 04/27/2020 1 1 Reason for Visit * Reason Comments Follow-up Encounter Details Date Type Department Care Team (Late st Contact Info) Description 09/26/2019 3:30 PM CDT Office Visit [facility] Orthopaedic Surgery [address] [facility] [address] [facility] 1st [address] [place] [address] Charissa Holley MD [address] [place] [address] Orthopedic aftercare (Primary Dx); Left foot pain Social History Tobacco Use Types [...] on file Legal 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 Date of Surgery: 07/16/2019 The patient returns today for the left foot. She is now 9 weeks post operative. She denies fevers or chills. She reports that she has some soreness. She points around the navicular cuneiform joint and the anterior tibial tendon. She states it has been sore for a while. For some reason it has remained sore in a cast. PHYSICAL EXAMINATION The left foot is in good condition. Swelling is minimal. The wound is clean and dry with no breakdown or signs of infection. Sensation is grossly intact to light touch. She is nontender at the surgical site. Alignment is maintained. She does have a little bit of tenderness at the insertion of the anterior tibial tendon. She has mild tenderness over the navicular cuneiform joint. REVIEW OF X-RAYS/STUDIES Prior radiographs and CT scan are reviewed. I do not see any evidence of navicular cuneiform joint arthritis IMPRESSION/DIAGNOSIS Post above-stated procedure doing well TREATMENT/PLAN Patient has been prescribed a walker boot for left foot arthrodesis revision.. The patient has weakness and / or instability of their left foot and ankle which requires stabilization from this semi-rigid / rigid orthosis to improve their function. Patient requires stabilization for medical reasons and has the potential to benefit functionally. She will weightbear as tolerated in the boot. The boot may be removed for bathing, showering and sleeping. In addition, the boot may be removed to work on gentle motion. I do think she has some pain at her anterior tibial tendon. We will reassess at her next visit. I will plan on sending her to physical therapy given the long period of time that she has been limited on this left foot. At that time we can specifically address therapy modalities towards the anterior tibial tendon. Expectations (swelling, pain, stiffness) and limitations were discussed. The patient was encouraged to call us if any questions or concerns arise. FOLLOW UP Follow up 6 weeks Next visit: At that visit we will obtain a CT scan to evaluate healing before transitioning out of the boot Charissa Holley MD Staff Analyst [facility] Dr. Charissa Holley dictating using [employer] Naturally Speaking Software. Scrubbing Machine Operator variances may occur. * Shadi Valles - 09/26/2019 3:30 PM CDTAssociated Order(s): Ortho Casting/Splinting Documentation Post-Procedure Diagnose(s): Orthopedic aftercare; Left foot pain Ortho Casting/Splinting Documentation Date/Time: 09/26/2019 10:11 AM Performed by: Shadi Valles Authorized by: Charissa Holley MD Sensation: Normal Skin Condition: Clean, dry, and intact Jose/Sutures Removed: No Pin Pulled: No Cast Removed: Yes Cast Applied: No Capillary Refill: Normal Patient tolerance of procedure: Tolerated well, no immediate complications Applied a walker boot documented in this encounter Miscellaneous Notes * Addendum Note - Marylou Warren RMA - 09/26/2019 3:30 PM CDTAddended by: MARYLOU WARREN on: 09/26/2019 08:36 AM Modules accepted: Orders documented in this encounter Plan of Treatment Not on file documented as of this encounter Procedures Procedure Name Priority Date/Time Associated Diagnosis Comments ORTHO CASTING/SPLINTING Routine 09/26/2019 3:30 PM CDT Orthopedic aftercare Left foot pain documented in this encounter Results * CT Foot Left WO Contrast (11/04/2019 1:13 PM CDT) Anatomical Region Laterality Modality Lower Extremities Left Computed Tomog dikcson 11/04/2019 2:48 PM CDT Impressions 11/04/2019 4:03 PM CDT 1. ??1st tarsometatarsal joint revised arthrodesis of the left foot, with approximately 80% osseous fusion across the 1st tarsometatarsal joint. 2. ??Mild left midfoot osteoarthritis. Dictated by: Jakub Adames M.D. The radiology attending physician has personally reviewed this study, and had reviewed and/or edited this written report and agrees with it. Electronically signed by: Mani Vilchis M.D. Narrative 11/04/2019 4:03 PM CDT EXAMINATION: CT FOOT LEFT WITHOUT CONTRAST HISTORY: 29-year-old woman with history of revised 1st left tarsometatarsal arthrodesis 07/16/2019, evaluate healing. TECHNIQUE: Computed tomography of the left foot was performed without intravenous contrast following the standard protocol. FINDINGS: Comparison is made with the prior left foot radiographs dated 08/29/[address] dated 04/30/2019. There is a revised 1st tarsometatarsal arthrodesis, transfixed by multiple screws, to include a single screw transfixing the 1st and 2nd metatarsals with 2 separate screws crossing the 1st tarsometatarsal joint. ??Prior screw tracks are noted within the medial cuneiform and proximal 1st metatarsal. ??There is approximately 80% osseous fusion across the 1st tarsal metatarsal joint. 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 ??There is no acute fracture. ?? Procedure Note Mani Vilchis MD PhD - 11/04/2019 EXAMINATION: CT FOOT LEFT WITHOUT CONTRAST HISTORY: 29-year-old woman with history of revised 1st left tarsometatarsal arthrodesis 07/16/2019, evaluate healing. TECHNIQUE: Computed tomography of the left foot was performed without intravenous contrast following the standard protocol. FINDINGS: Comparison is made with the prior left foot radiographs dated 08/29/[address] dated 04/30/2019. There is a revised 1st tarsometatarsal arthrodesis, transfixed by multiple screws, to include a single screw transfixing the 1st and 2nd metatarsals with 2 separate screws crossing the 1st tarsometatarsal joint. Prior screw tracks are noted within the medial cuneiform and proximal 1st metatarsal. There is approximately 80% osseous fusion across the 1st tarsal metatarsal joint. 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 There is no acute fracture. IMPRESSION: 1. 1st tarsometatarsal joint revised arthrodesis of the left foot, with approximately 80% osseous fusion across the 1st tarsometatarsal joint. 2. Mild left midfoot osteoarthritis. Dictated by: Jakub Adames M.D. The radiology attending physician has personally reviewed this study, and had reviewed and/or edited this written report and agrees with it. Electronically signed by: Mani Vilchis M.D. Charissa Holley MD IMG CT PROCEDURES Karen l Result * Ortho Casting/Splinting Documentation (09/26/2019 3:30 PM CDT) Shadi Gurrola - 09/26/2019 3:30 PM CDT Shadi Valles ? 09/26/2019 10:11 AM Ortho Casting/Splinting Documentation Date/Time: 09/26/2019 10:11 AM Performed by: Shadi Valles Authorized by: Charissa Holley MD Sensation: ??Normal Skin Condition: ??Clean, dry, and intact Jose/Sutures Removed: No ?? Pin Pulled: No ?? Cast Removed: Yes ?? Cast Applied: No ?? Capillary Refill: ??Normal Patient tolerance of procedure: ??Tolerated well, no immediate complications Applied a walker boot us Charissa Holley MD [facility] Final Result documented in this encounter Visit Diagnoses Diagnosis Orthopedic aftercare- Primary Unspecified orthopedic aftercare Left foot pain Pain in soft tissues of limb Left foot pain Pain in soft tissues of limb documented in this encounter Care Teams Traffic Engineering Director Relationship Specialty Start Date End Date Daily Cruz MD PCP - General Family Medicine 08/01/19 03/03/21 documented as of this encounter
--- OUTSIDE RECORDS SUMMARY | 2024-02-21 19:40 | XMS_ITS | Encounter Summary ---
Author Organization [facility] Address [address] [place] [address] Care Team Providers Care Postal Clerk Name Role Phone Daily Cruz MD Primary Care Provider [phone] [phone] Encounter Details Date Type Department Care Team (Late st Contact Info) Description 07/11/2019 2:45 PM CDT Telemedicine [facility] Family Medicine 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 Gender Identity Female 03/02/2020 4:27 PM INTERNET E COMMERCE SPECIALIST Sexual Orientation Straight 07/10/2019 11 :13 PM CDT documented as of this encounter Last Filed Vital Signs Vital Sign Reading Time Taken Comments Blood Pressure - - Pulse - - Temperature - - Respiratory Rate - - Oxygen Saturation - - Inhaled Oxygen Concentration - - Weight 122.5 kg (270 lb) 07/11/2019 1:19 PM CDT at home Height - - Body Mass Index 42.29 07/11/2019 10:10 AM CDT documented in this encounter Patient Instructions * Patient Instructions* Daily Cruz MD - 07/11/2019 2:45 PM CDT Images from the original note were not included. Patient Education Shortness of Breath ORE DRYER: Shortness of breath is a feeling that you cannot get enough air when you breathe in. You may have this feeling only during activity, or all the time. Your symptoms can range from mild to severe. Shortness of breath may be a sign of a serious health condition that needs immediate care. Seek care immediately if: ?? Your signs and symptoms are the same or worse within 24 hours of treatment. ?? The skin over your ribs or on your neck sinks in when you breathe. ?? You feel confused or dizzy. Contact your healthcare provider if: ?? You have new or worsening symptoms. ?? You have questions or concerns about your condition or care. Treatment: ?? Medicines may be used to treat the cause of your symptoms. You may need medicine to treat a bacterial infection or reduce anxiety. Other medicines may be used to open your airway, reduce swelling,or remove extra fluid. If you have a heart condition, you may need medicine to help your heart beatmore strongly or regularly. ?? Oxygen may be given to help you breathe more easily. Manage shortness of breath: ?? Create an action plan. You and your healthcare provider can work together to create a plan for how to handle shortness of breath. The plan can include daily activities, treatment changes, and whatto do if you have severe breathing problems. ?? Lean forward on your elbows when you sit. This helps your lungs expand and may make it easier tobreathe. ?? Use pursed-lip breathing any time you feel short of breath. Breathe in through your nose and then slowly breathe out through your mouth with your lips slightly puckered. It should take you twice as long to breathe out as it did to breathe in. ?? Do not smoke. Nicotine and other chemicals in cigarettes and cigars can cause lung damage and make shortness of breath worse. Ask your healthcare provider for information if you currently smoke and need help to quit. E-cigarettes or smokeless tobacco still contain nicotine. Talk to your healthcare provider before you use these products. ?? Reach or maintain a healthy weight. Your healthcare provider can help you create a safe weight loss plan if you are overweight. ?? Exercise as directed. Exercise can help your lungs work more easily. Exercise can also help you lose weight if needed. Try to get at least 30 minutes of exercise most days of the week. Follow up with your healthcare provider or specialist as directed: Write down your questions so youremember to ask them during your visits. ?? 2017 [employer] Information is for End User's use only and may not be sold, redistributed or otherwise used for commercial purposes. All illustrations and images included in CareNotes?? are the copyrighted property of [employer]. or [employer]. The above information is an educational adviser only. It is not intended as medical advice for individual conditions or treatments. Talk to your doctor, nurse or pharmacist before following any medical regimen to see if it is safe and effective for you. documented in this encounter Progress Notes * Daily Cruz MD - 07/11/2019 2:45 PM CDT Images from the original note were not included. Patient ID: Jud Leung is a 28 y.o. female. Visit Date: 07/11/2019 This was a telemedicine visit with Jud Leung alone which took place via Real-time video connection [email or web address] or similar). During the visit, I was located at work and the patient was located at home. The session started at 14:15 and ended at 14:55. The patient has been informed that the [...] applicable copayments. Daily Cruz MD Chief Complaint SOB Migraine swelling HPI Patient has h/o RAD and uses albuterol PRN. Still getting increased SOB H/o pseudotumor cerebri. C/o recurrent migraines H/o Lower extremity swelling - stable. Tolerating hctz H/o ADD - stable Current Outpatient Medications: ??? albuterol HFA (Ventolin HFA) 90 mcg/actuation inhaler, Inhale 2 puffs every 6 (six) hours as needed, Disp: , Rfl: ??? levonorgestreL (KYLEENA) IUD, 1 each by intrauterine route once , Disp: , Rfl: ??? aspirin 325 mg enteric coated tablet, Take 1 tablet (325 mg total) by mouth daily, Disp: 30 tablet, Rfl: 0 ??? hydroCHLOROthiazide (HYDRODIURIL) 25 mg tablet, Take 1 tablet (25 mg total) by mouth daily, Disp: 30 tablet, Rfl: 0 ??? methylPREDNISolone (MEDROL DOSEPACK) 4 mg Dosepack, Take as directed on package., Disp: 21 tablet, Rfl: 0 Review of Systems Constitutional: [...] Psychiatric/Behavioral: Negative for behavioral problems and confusion. ADD Wt 122.5 kg (270 lb) Comment: at home LMP 07/05/2019 (Approximate) BMI 42.29 kg/m?? Body mass index is [...] Diagnoses and all orders for this visit: Attention deficit disorder (ADD) in adult (Primary) Assessment & Plan: Stable Mild intermittent reactive airway disease without complication Assessment & Plan: Increased SOB Cont albuterol PRN Order CT chest Chronic migraine without aura without status migrainosus, not intractable Assessment & Plan: New Order CT head Pseudotumor cerebri Assessment & Plan: Getting increased GAGNON Order CT head Orders: - CTA Chest W WO Contrast; Future - TSH reflex to free T4; Future - Comprehensive metabolic panel; Future - Lipid panel; Future - Creatine kinase (CK), total; Future - CK-MB; Future - CBC with auto differential; Future - D-dimer, quantitative; Future - Troponin I; Future SOB (shortness of breath) Assessment & Plan: Increased SOB Cont albuterol PRN Order CT chest Orders: - CTA Chest W WO Contrast; Future - TSH reflex to free T4; Future - Comprehensive metabolic panel; Future - Lipid panel; Future - Creatine kinase (CK), total; Future - CK-MB; Future - CBC with auto differential; Future - D-dimer, quantitative; Future - Troponin I; Future Pain and swelling of lower extremity, unspecified laterality Assessment & Plan: Stable cotn hctz Orders: - CTA Chest W WO Contrast; Future - TSH reflex to free T4; Future - Comprehensive metabolic panel; Future - Lipid panel; Future - Creatine kinase (CK), total; Future - CK-MB; Future - CBC with auto differential; Future - D-dimer, quantitative; Future - Troponin I; Future Daily MD Nancy documented in this encounter Miscellaneous Notes * Assessment & Plan Note - Daily Cruz MD - 08/26/2019 2:16 AM CDT Associated Problem(s): SOB (shortness of breath) (Deleted) Increased SOB Cont albuterol PRN Order CT chest * Assessment & Plan Note - Daily Cruz MD - 08/26/2019 2:16 AM CDT Associated Problem(s): Moderate persistent asthma without complication Increased SOB Cont albuterol PRN Order CT chest * Assessment & Plan Note - Daily Cruz MD - 08/26/2019 2:15 AM CDT Associated Problem(s): Pseudotumor cerebri Getting increased GAGNON Order CT head * Assessment & Plan Note - Daily Cruz MD - 08/26/2019 2:15 AM CDT Associated Problem(s): Pain and swelling of lower extremity Stable cotn hctz * Assessment & Plan Note - Daily Cruz MD - 08/26/2019 2:15 AM CDT Associated Problem(s): Non-refractory chronic migraine without aura New Order CT head * Assessment & Plan Note - Daily Cruz MD - 08/26/2019 2:15 AM CDT Associated Problem(s): Attention deficit disorder (ADD) in adult Stable documented in this encounter Plan of Treatment Not on file documented as of this encounter Procedures Procedure Name Priority Date/Time Associated Diagnosis Comments CK-MB Routine 07/12/2019 1:14 PM CDT Pseudotumor cerebri SOB (shortness of breath) Pain and swelling of lower extremity, unspecified laterality THYROID FUNCTION CASCADE Routine 07/12/2019 1:14 PM CDT Pseudotumor cerebri SOB (shortness of breath) Pain and swelling of lower extremity, unspecified laterality CBC WITH AUTO DIFFERENTIAL Routine 07/12/2019 1:14 PM CDT Pseudotumor cerebri SOB (shortness of breath) Pain and swelling of lower extremity, unspecified laterality TROPONIN I Routine 07/12/2019 1:14 PM CDT Pseudotumor cerebri SOB (shortness of breath) Pain and swelling of lower extremity, unspecified laterality D-DIMER, QUANTITATIVE Routine 07/12/2019 1:14 PM CDT Pseudotumor cerebri SOB (shortness of breath) Pain and swelling of lower extremity, unspecified laterality CREATINE KINASE (CK), TOTAL Routine 07/12/2019 1:14 PM CDT Pseudotumor cerebri SOB (shortness of breath) Pain and swelling of lower extremity, unspecified laterality LIPID PANEL Routine 07/12/2019 1:14 PM CDT Pseudotumor cerebri SOB (shortness of breath) Pain and swelling of lower extremity, unspecified laterality COMPREHENSIVE METABOLIC PANEL Routine 07/12/2019 1:14 PM CDT Pseudotumor cerebri SOB (shortness of breath) Pain and swelling of lower extremity, unspecified laterality documented in this encounter Results * Troponin I (07/12/2019 1:14 PM CDT) Troponin I <0.300 0.000 - 0.300 ng/mL [facility] Comment: Reference using TYSHAWN Chemiluminescence ? Negative: Repeat in 4-6 hours as indicated. Blood specimen (specimen) 07/12/2019 1:14 PM CDT 07/12/2019 1:16 PM CDT Narrative [facility] - 07/12/2019 2:03 PM CDT PATIENT IS FASTING FOR 12 HOURS PC [facility] Resulting Agency Comment CLI Daily Cruz MD LAB BLOOD ORDERABLES Karen prater Result Performing Organization Address City/[facility]/ZIP Co de Phone Number [address] [phone] * D-dimer, quantitative (07/12/2019 1:14 PM CDT) Pathologist [facility] D-Dimer, Quantitative <500 <500 ng/mLFEU [facility] Comment: Studies indicate that a D-Dimer level of <500 ng/ml FEU has a >95% negative predictive value for DVT,DIC,PE and other embolus conditions. ??Levels >500 ng/ml FEU may be present in a wide variety of conditions and should not be considered diagnostic of any disease state. Please note unit of measure has changed from ug/ml FEU to ng/ml FEU effective 12/25/18. Blood specimen (specimen) 07/12/2019 1:14 PM CDT 07/12/2019 1:16 PM CDT Narrative Resulting Agency Comment CLI Daily Cruz MD LAB BLOOD ORDERABLES Karen prater Result Performing Organization Address [facility] Co de Phone Number [address] [phone] * CBC with auto differential (07/12/2019 1:14 PM CDT) [facility] WBC 9.6 3.8 - 9.9 X10 3/ul [facility] RBC 4.59 3.90 - 5.20 x10 6/ul [facility] Hemoglobin 13.3 11.9 - 15.5 g/dL [facility] Hct 41.1 35.6 - 45.5 % [facility] MCV 89.5 81.3 - 96.4 fl [facility] MCH 29.0 27.1 - 33.3 pg [facility] MCHC 32.4 32.3 - 35.7 g/dl [facility] RDW 14.3 11.1 - 14.9 % [facility] Plt Count 342 150 - 400 x10 3/ul [facility] MPV 10.3 9.1 - 12.3 fl [facility] Neut % 63.8 % [facility] Immature Gran % 0.3 % [facility] Lymph % 29.4 % [facility] [place] % 5.4 % [facility] Eos % 0.8 % [facility] AUTO BASO % 0.3 % [facility] NEUTROPHIL ABS # 6.1 1.7 - 6.5 x10 3/ul [facility] Immature Gran # 0.0 0.0 - 0.1 x10 3/ul [facility] Absolute Lymphs (auto) 2.8 0.8 - 3.3 x10 3/ul [facility] Absolute Monos (auto) 0.5 0.2 - 0.8 x10 3/ul [facility] Absolute Eos (auto) 0.1 0.0 - 0.5 x10 3/ul [facility] BASOPHIL ABS # 0.0 0.0 - 0.1 x10 3/ul [facility] Nucleat RBC Rel Count 0.0 #/100WBC [facility] NRBC abs 0.00 0.00 - 0.01 x10 3/ul [facility] Absolute Neutrophils 6,100 200 - 8,000 /ul [facility] Blood specimen (specimen) 07/12/2019 1:14 PM CDT 07/12/2019 1:16 PM CDT Narrative Resulting Agency Comment CLI us Daily Cruz MD LAB BLOOD ORDERABLES Akren l Result [facility] [address] [place] [address], [facility] [phone] * CK-MB (07/12/2019 1:14 PM CDT) CK-MB (CK-2) <1.0 0.0 - 2.9 ng/mL [facility] Blood specimen (specimen) 07/12/2019 1:14 PM CDT 07/12/2019 1:16 PM CDT Narrative [facility] - 07/12/2019 2:03 PM CDT PATIENT IS FASTING FOR 12 HOURS PC [facility] Resulting Agency Comment CLI Daily Cruz MD LAB BLOOD ORDERABLES Karen l Result Performing Organization Address [facility]/ZIP Co de Phone Number [address] [phone] * Creatine kinase (CK), total (07/12/2019 1:14 PM CDT) Creatine Kinase 66 20 - 180 U/L [facility] Blood specimen (specimen) 07/12/2019 1:14 PM CDT 07/12/2019 1:16 PM CDT [facility] - 07/12/2019 2:03 PM CDT PATIENT IS FASTING FOR 12 HOURS PC [facility] Resulting Agency Comment CLI Daily Cruz MD LAB BLOOD ORDERABLES Karen l Result Performing Organization Address [facility]/ZIP Co de Phone Number [address] [phone] * (ABNORMAL) Lipid panel (07/12/2019 1:14 PM CDT) Triglycerides 87 0 - 149 mg/dL [facility] Comment: National Lipid Association/NCEP Guidelines: ?? Normal ?< 150 mg/dL ?? Borderline high ?? 150-199 mg/dL ?? High ?200-499 mg/dL ?? Very High ? >=500 mg/dL Cholesterol 195 0 - 199 mg/dL [facility] Comment: National Lipid Association/NCEP Guidelines: Desirable ? < 200 mg/dL Borderline high: ??200-239 mg/dL High Risk: ?>=240 mg/dL HDL Cholesterol 48 mg/dL [facility] Comment: Reference Ranges: ? Males: >=40 mg/dL ? Females: >=50 mg/dL LDL Cholesterol, Calc 130(H) 0 - 129 mg/dL [facility] Comment: National Lipid Association/NCEP Guidelines: ??Optimal ? < 100 mg/dL ??Near Optimal ?100-129 mg/dL ??Borderline high 130-159 mg/dL ??High ?>=160 mg/dL Cholesterol/HDL Ratio 4.1 [facility] Comment: Optimal ??< 3.5:1 High ? > 5:1 Blood specimen (specimen) 07/12/2019 1:14 PM CDT 07/12/2019 1:16 PM CDT Narrative [facility] - 07/12/2019 2:03 PM CDT PATIENT IS FASTING FOR 12 HOURS PC [facility] Resulting Agency Comment CLI us Daily Cruz MD LAB BLOOD ORDERABLES Karen prater Result [facility] [address] [place], [place] [id number] [place] [address] * (ABNORMAL) Comprehensive metabolic panel (07/12/2019 1:14 PM CDT) Sodium 136 135 - 145 mmol/L [facility] Potassium 4.5 3.3 - 5.1 mmol/L [facility] Chloride 101 96 - 108 mmol/L [facility] Carbon Dioxide 25 22 - 32 mmol/L [facility] Anion Gap 10 7 - 16 [facility] Glucose 85 70 - 100 mg/dL [facility] BUN 13 8 - 25 mg/dL [facility] Creatinine 0.7 0.5 - 1.1 mg/dL [facility] Comment: NOTE: Estimated GFR (Cockroft-Gault) will NOT be calculated unless patient Height and Weight were entered. Also, Kidney Disease Stage (GFR) and Estimated GFR (Cockroft-Gault) will NOT be calculated if Creatinine result is <0.2. Kidney Disease Stage >90 mL/MIN [facility] Comment: NOTE; ??The GFR is an estimated value using the creatinine, sex, age, and race of the patient. THE Estimated Kidney Disease GFR is validated for AGES 18-70 YEARS STAGE ?mL/Min ?DESCRIPTION ??1 ?90 mL/min or more ?Normal or elevated GFR ??2 ? 60-89 mL/min ?Mildly decreased GFR ??3 ? 30-59 mL/min ?Moderately decreased GFR ??4 ? 15-29 mL/min ?Severely decreased GFR ??5 ? <15 mL/min ? Kidney failure or on dialysis Calcium 9.6 8.6 - 10.3 mg/dL [facility] Total Protein 7.7 6.4 - 8.3 g/dL [facility] Albumin 4.1 3.5 - 5.0 g/dL [facility] Globulin 3.6(H) 2.3 - 3.5 gm/dL [facility] Albumin/Globulin Ratio 1.1 1.1 - 1.8 [facility] Total Bilirubin <0.2 0.0 - 1.2 mg/dL [facility] AST 13 0 - 32 U/L [facility] ALT 13 0 - 33 U/L [facility] Alkaline Phosphatase 118(H) 35 - 104 U/L [facility] Blood specimen (specimen) 07/12/2019 1:14 PM CDT 07/12/2019 1:16 PM CDT Narrative [facility] - 07/12/2019 2:03 PM CDT PATIENT IS FASTING FOR 12 HOURS PC [facility] Resulting Agency Comment CLI Daily Cruz MD LAB BLOOD ORDERABLES Karen l Result [address] [phone] * TSH reflex to free T4 (07/12/2019 1:14 PM CDT) TSH W REFLEX TO FT4 2.890 0.27 - 4.20 uIU/mL [facility] Blood specimen (specimen) 07/12/2019 1:14 PM CDT 07/12/2019 1:16 PM CDT Narrative [facility] - 07/12/2019 2:03 PM CDT PATIENT IS FASTING FOR 12 HOURS PC [facility] Resulting Agency Comment CLI Daily Cruz MD LAB BLOOD ORDERABLES Karen l Result Performing Organization Address City/[facility]/ZIP Co de Phone Number [address] [phone] documented in this encounter Visit Diagnoses Diagnosis Attention deficit disorder (ADD) in adult- Primary Mild intermittent reactive airway disease without complication Chronic migraine without aura without status migrainosus, not intractable Pseudotumor cerebri Benign intracranial hypertension SOB (shortness of breath) Shortness of breath Pain and swelling of lower extremity, unspecified laterality documented in this encounter Care Teams Postal Clerk Relationship Specialty Start Date End Date Daily Cruz MD PCP - General Family Medicine 07/09/19 07/11/19 documented as of this encounter
--- OUTSIDE RECORDS SUMMARY | 2024-02-21 19:40 | XMS_ITS | Encounter Summary ---
Author Organization [facility] Address [address] [place] [address] Phone Care Team Providers Care Service Line Layer Name Role Phone Jesusita Emmanuel MD Primary Care Provide r Encounter Details Date Type Department Care Team (Late st Contact Info) Description 07/22/2019 Telephone [facility] Orthopaedic Surgery [address] 1st [address] [place] [address] Charissa Holley MD [address] [place], [place] [id number] Social History Tobacco Use Types Packs/Day Years [...] on file 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 She states when she bends her foot in the splint she can feel the guaze pulling on the incision. And she feels like the heel has worn down and is rubbing her heel raw. She also has some complaints of her hip incision being painful, she asks that we look at that tomorrow also. She will come into the office tomorrow to have her splint changed and possibly go into a cast. documented in this encounter Plan of Treatment Not on file documented as of this encounter Visit Diagnoses Not on filedocumented in this encounter Care Teams Service Line Layer Relationship Specialty Start Date End Date Jesusita Emmanuel MD PCP - General 07/16/19 07/31/19 documented as of this encounter
--- OUTSIDE RECORDS SUMMARY | 2024-02-21 19:40 | XMS_ITS | Encounter Summary ---
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 Gender Identity Female 03/02/2020 4:27 PM LOADER Sexual Orientation Straight 07/10/2019 11 :13 PM CDT documented as of this encounter Ordered Prescriptions Prescription Sig Dispense Quantity Refills Last Filled Start Date End Date guaiFENesin-codein e (GUAITUSS AC) liquid 100-10 mg/5 mL Take 5-10 mL by mouth every 4 (four) hours as needed for cough 120 mL 12/19/2019 01/18/2020 documented in this encounter Plan of Treatment Not on file documented as of this encounter Visit Diagnoses Not on filedocumented in this encounter Additional Health Concerns Infection Onset Date Last Indicated Resolved Time COVID19 12/19/2019 12/19/2019 01/02/2020 3:07 AM LOADER documented as of this encounter Care Teams Business Agent Relationship Specialty Start Date End Date Daily Cruz MD PCP - General Family Medicine 08/01/19 03/03/21 documented as of this encounter
--- OUTSIDE RECORDS SUMMARY | 2024-02-21 19:40 | XMS_ITS | Encounter Summary ---
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 Gender Identity Female 03/02/2020 4:27 PM HEAD BOYS 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 01/02/2020 01/22/2020 05/01/2020 3:05 AM C DT documented as of this encounter Care Teams Channel Sales Director Relationship Specialty Start Date End Date Daily Cruz MD PCP - General Family Medicine 08/01/19 03/03/21 documented as of this encounter
--- OUTSIDE RECORDS SUMMARY | 2024-02-21 19:40 | XMS_ITS | Encounter Summary ---
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 Gender Identity Female 03/02/2020 4:27 PM SATELLITE MANAGER Sexual Orientation Straight 07/10/2019 11 :13 PM CDT documented as of this encounter Plan of Treatment Not on file documented as of this encounter Procedures Procedure Name Priority Date/Time Associated Diagnosis Comments COVID-19 CORONAVIRUS RNA Routine 07/12/2019 2:55 PM CDT Pre-op testing documented in this encounter Results * COVID-19 Coronavirus RNA Nasopharyngeal (07/12/2019 2:55 PM CDT) COVID-19 RNA Not Detected [facility] Comment: Interpretive Data Testing performed at [facility] Molecular Infectious Disease Laboratory. The 2019-Novel Coronavirus Assay (COVID-19) Real Time RT-PCR assay is for in vitro diagnostic use under FDA emergency use authorization only. A negative RT-PCR result does not preclude infection with COVID-19 and should not be used as the sole basis for treatment or other patient management decisions. Additional sample types have been validated according to CLIA regulations. ?? Current Interpretive Data was last revised on 2019. Nasopharyngeal 07/12/2019 2: 55 PM CDT 07/12/2019 8:19 PM CDT Narrative ANGELICA GARDUNO - 07/13/2019 7:46 AM CDT Is the patient experiencing any symptoms consistent with COVID (eg. Fever, cough, shortness of breath)?->No What is the reason for testing?->Screening prior to scheduled (>24 hr) surgery or procedure Charissa Holley MD LAB MICROBIOLOGY - GEN ERAL ORDERABLES Final Result [facility] Department [place] [address] documented in this encounter Visit Diagnoses Diagnosis Pre-op testing Unspecified pre-operative examination documented in this encounter Care Teams Rn Maternity Relationship Specialty Start Date End Date Jesusita Emmanuel MD PCP - General 07/12/19 07/14/19 documented as of this encounter
--- OUTSIDE RECORDS SUMMARY | 2024-02-21 19:40 | XMS_ITS | Encounter Summary ---
Author Organization [facility] Address [address] [place] [address] Phone Care Team Providers Care Voip Technician Name Role Phone Jesusita Emmanuel MD Primary Care Provide r Encounter Details Date Type Department Care Team (Late st Contact Info) Description 07/23/2019 10:30 AM CDT Office Visit [facility] Orthopaedic Surgery [address] [place] [address] Charissa Holley MD [address] [place], [place] [id number] Left foot pain (Primary Dx); Orthopedic aftercare [...] on file 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 Gender Identity Female 03/02/2020 4:27 PM COAL SHOOTER Sexual Orientation Straight 07/10/2019 11 :13 PM CDT documented as of this encounter Progress Notes * Shadi Valles - 07/23/2019 10:30 AM CDTAssociated Order(s): Ortho Casting/Splinting Documentation Post-Procedure Diagnose(s): Left foot pain Ortho Casting/Splinting Documentation Date/Time: 07/23/2019 11:15 AM Performed by: Shadi Valles Authorized by: Charissa Holley MD Sensation: Normal Skin Condition: Clean, dry, and intact [place]/Sutures Removed: No Pin Pulled: No Cast Removed: Yes Cast Applied: Yes Location: Foot Foot: L foot Cast type: Short leg non weightbearing cast Supplies: Cotton Padding, cotton stocking/sleeve, elastic banage(s), gauze and plaster Number of plaster rolls used: 4 Capillary Refill: Normal Patient tolerance of procedure: Tolerated well, no immediate complications documented in this encounter Plan of Treatment Not on file documented as of this encounter Procedures Procedure Name Priority Date/Time Associated Diagnosis Comments ORTHO CASTING/SPLINTING Routine 07/23/2019 10:30 AM CDT Left foot pain documented in this encounter Results * Ortho Casting/Splinting Documentation (07/23/2019 10:30 AM CDT) Narrative Shadi Valles - 07/23/2019 10:30 AM CDT Shadi Valles ? 07/23/2019 11:18 AM Ortho Casting/Splinting Documentation Date/Time: 07/23/2019 11:15 AM Performed by: Shadi Valles Authorized by: Charissa Holley MD Sensation: ??Normal Skin Condition: ??Clean, dry, and intact [place]/Sutures Removed: No ?? Pin Pulled: No ?? Cast Removed: Yes ?? Cast Applied: Yes ?? Location: ??Foot Foot: ??L foot Cast type: ??Short leg non weightbearing cast Supplies: ??Cotton Padding, cotton stocking/sleeve, elastic banage(s), gauze and plaster Number of plaster rolls used: ??4 Capillary Refill: ??Normal Patient tolerance of procedure: ??Tolerated well, no immediate complications us Charissa Holley MD [facility] Final Result documented in this encounter Visit Diagnoses Diagnosis Left foot pain- Primary Pain in soft tissues of limb Orthopedic aftercare Unspecified orthopedic aftercare documented in this encounter Care Teams Voip Technician Relationship Specialty Start Date End Date Jesusita Emmanuel MD PCP - General 07/16/19 07/31/19 documented as of this encounter
--- OUTSIDE RECORDS SUMMARY | 2024-02-21 19:40 | XMS_ITS | Encounter Summary ---
Author Organization [facility] Address [address] [place] [address] Phone Care Team Providers Care Elevator Repairer Name Role Phone Daily Cruz MD Primary Care Provider [phone] [phone] Encounter Details Date Type Department Care Team (Late st Contact Info) Description 11/28/2019 Telephone [facility] Orthopaedic Surgery [address] [place] [address] Jodi Fleming RMA Social History Tobacco Use Types Packs/Day Years [...] on file Legal Sex Female 3:37 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 Gender Identity Female 03/02/2020 4:27 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 Sexual Orientation Straight 07/10/2019 11 :13 PM CDT documented as of this encounter Miscellaneous Notes * Telephone Encounter - Jodi Fleming RMA - 11/28/2019 11:31 AM CDT Christian called to confirm if pt will be off of work or can she return Called and lm on that the pt is going to be off right now and not return enoc to she was just coming out of her boot and she is not able to do her job at this time, she will call in 3-4 weeks and let us know how she is doing and we can re- elevate and see about returning to work documented in this encounter Plan of Treatment Not on file documented as of this encounter Visit Diagnoses Not on filedocumented in this encounter Care Teams Elevator Repairer Relationship Specialty Start Date End Date Daily Cruz MD PCP - General Family Medicine 08/01/19 03/03/21 documented as of this encounter
--- OUTSIDE RECORDS SUMMARY | 2024-02-21 19:40 | XMS_ITS | Encounter Summary ---
Author Organization [facility] Address [address] [place] [address] Phone Care Team Providers Care Tack Puller Machine Name Role Phone Daily Cruz MD Primary Care Provider [phone] Reason for Visit * Reason Comments Follow-up Encounter Details Date Type Department Care Team (Late st Contact Info) Description 11/04/2019 1:15 PM CDT Office Visit [facility] Orthopaedic Surgery [address] [facility] [facility] 1st [address] [place] [address] Charissa Holley MD [address] [place] [address] Orthopedic aftercare (Primary Dx) Social History Tobacco [...] on file 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 She is now 4 months post operative. She denies fevers or chills. She reports that she still has pain when she walks without the boot. PHYSICAL EXAMINATION The left foot is in good condition. Swelling is minimal. The wound is clean and dry with no breakdown or signs of infection. Sensation is grossly intact to light touch. She is mildly tender at the surgical site. Alignment is maintained She is tender over her scar REVIEW OF X-RAYS/STUDIES Her CT scan today shows healing of her first TMT joint IMPRESSION/DIAGNOSIS Post above-stated procedure doing well TREATMENT/PLAN The patient will wean out of the boot. She should slowly progress to a supportive shoe. Expectations until the next visit including swelling, stiffness and activity level were discussed. A prescription for physical therapy was provided at this visit. The patient was encouraged to call us if any questions or concerns arise. FOLLOW UP Follow up 3 months Next visit: radiographs of the left foot Charissa Holley MD Production Welder [facility] Ankle Service [facility] Orthopedics Dr. Charissa Holley dictating using [employer] Naturally Speaking Software. Service Director variances may occur. documented in this encounter Plan of Treatment Not on file documented as of this encounter Visit Diagnoses Diagnosis Orthopedic aftercare- Primary Unspecified orthopedic aftercare documented in this encounter Care Teams Tack Puller Machine Relationship Specialty Start Date End Date Daily Cruz MD PCP - General Family Medicine 08/01/19 03/03/21 documented as of this encounter
--- OUTSIDE RECORDS SUMMARY | 2024-02-21 19:40 | XMS_ITS | Encounter Summary ---
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
--- OUTSIDE RECORDS SUMMARY | 2024-02-21 19:40 | XMS_ITS | Encounter Summary ---
Author Organization [facility] Healthcare Address [address] [place] [address] Care Team Providers Care Bowling Alley Attendant Name Role Phone Jesusita Emmanuel MD Primary Care Provide r Encounter Details Date Type Department Care Team (Late st Contact Info) Description 07/16/2019 1:00 PM CDT - 07/16/2019 2:45 PM CDT Surgery [facility] Surgery at [facility] Advanced Medicine [address] [place] [address] Charissa Holley MD [address] [place] [address] revision left tarsometatarsal joint arthrodesis iliac crest bone graft Surgery Details Date/Time Status Location OR Service Patient Class Case Class Case Type Trauma Case? 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 Gender Identity Female 03/02/2020 4:27 PM GARDENING SUPERVISOR Sexual Orientation Straight 07/10/2019 11 :13 PM CDT documented as of this encounter Last Filed Vital Signs Vital Sign Reading Time Taken Comments Blood Pressure 117/78 07/16/2019 11:33 AM CDT Pulse 86 07/16/2019 11:33 AM CDT Temperature 36.3 ??C (97.3 ??F) 07/16/2019 11:33 AM C DT Respiratory Rate 24 07/16/2019 11:33 AM CDT Oxygen Saturation 97% 07/16/2019 11:33 AM CDT Inhaled Oxygen Concentration - - Weight 122.5 kg (270 lb) 07/11/2019 10:10 AM CDT Height 170.2 cm (5' 7 ) 07/11/2019 10:10 AM CDT Body Mass Index 42.29 07/11/2019 10:10 AM CDT documented in this encounter Discharge Instructions * Discharge Instructions* Charissa Holley MD - 07/16/2019 12:36 PM CDT POST-OPERATIVE INSTRUCTIONS FOOT AND ANKLE SURGERY MD Marylou Larson, Print Traffic Manager [phone] I am so glad that you chose [...] a blood clot. 4. CALL US AT [phone]: If any questions arise, please call. Specifically, [...] cannot be sent through Care Everywhere. * [facility] PATHWAY TO EXCELLENT CARE AFTER SURGERY * Scopolamine (Absorbed through the skin) (Taiwanese) documented in this encounter Medications at Time [...] Preoperative Evaluation Record Evaluation type/location: TPAP from [facility] Planned procedure site: [facility] OR Date: 07/12/19 NOTE: This note [...] Cardiovascular Pertinent negatives: hypertension ; CAD ; NM ; CABG ; valvular heart disease; valve [...] include: review OSH labs being drawn today [facility] and Covid 19 DOS hcg urine and [...] testing to be performed on07/12/2019 at the Health System. Surgeon to review. Patient instructions were provided in writing sent via [employer] mail and telephone. Patient verbalized understanding of [...] Last Dose Start Date End Date Provider mlxcpckqocguu-kxpkqbt-addntlhb (EXCEDRIN MIGRAINE) 250-250-65 mg per tablet -- -- Historical Provider, albuterol HFA (Ventolin HFA) 90 mcg/actuation inhaler -- -- Historical Provider, levonorgestreL (KYLEENA) IUD -- -- Historical Provider, No current facility-administered medications for this encounter. Current Outpatient Medications: ??? fwhtpoebfwehk-mbgmuii-lvfmrrgi (EXCEDRIN MIGRAINE) 250-250-65 mg per tablet ??? [...] Medication protocol when under care of a MANUGRAPHER Planned anesthesia: General and PNB - single [...] nonunion. The saw was advanced until lamina trainman could be placed to distract the first [...] the foot. All hardware was in good position. A final irrigation was performed of the nonunion site. A Watkins elevator was used to confirm that the surfaces were compressed. A small trough was created in the dorsal aspect of the joint in order to pack additional bone graft. The bone graft was packed easily. Subcutaneous tissue was closed with a 3.0 Monocryl taking care to protect the extensor [...] Preoperative Assessment and Planning CPAP Clinic Location: [facility] The night before your surgery: * Do [...] Your Medications: Pre-Surgery Instructions: Medication Instructions ??? grrfcjuxvcvba-aisculh-yzgaierl (EXCEDRIN MIGRAINE) 250-250-65 mg per tablet Don't take on day of surgery ??? albuterol HFA (Ventolin HFA) 90 mcg/actuation inhaler Take on day of surgery if needed General Instructions For Medications: ?? If prescribed a non-steroidal anti-inflammatory such as Celebrex, Meloxicam, or Naproxen by yoursuron, take as prescribed prior to surgery and [...] Planning Perioperative Nursing Note Telephone Preoperative Evaluation ([facility]) - TELEPHONE ONLY, NO PHYSICAL EXAM Date: 07/11/19 Vitals: 07/11/19 1010 Weight: 122.5 kg (270 lb) Height: 170.2 cm (5' 7 ) CHEST CIRCUMFERENCE: Social History Tobacco Use Smoking Status Never Smoker Smokeless Tobacco Never Used Substance and Sexual Activity Alcohol Use Yes Comment: RARE Substance and Sexual Activity Drug Use Never Outpatient Medications Marked as Taking for the 07/16/19 encounter (Hospital Encounter) with Charissa Holley MD Medication Sig Dispense Refill ??? pqxkkkduiwiye-bjaitwi-hhrgrihy (EXCEDRIN MIGRAINE) 250-250-65 mg per tablet Take [...] Directive: Patient does not have advance directive Communication/Director Executive Communications Needs Communication Needs: None Assistive Devices/DME: Eyeglasses Discharge Planning Type of Residence: Private residence Living Arrangements: Spouse/significant other Support Systems: Spouse/significant other(BOYFRIEND WILL BE REPOSSESSION AGENT AND HELPER) Patient expects to be discharged to:: Private residence ADDITIONAL COMMENTS/ FOLLOW UP SETUP TO DO COVID TEST ON 07/12/19 AT [facility] * Pre-Procedure Instructions - Arturo Morel RN - 07/11/2019 10:16 AM CDT PRE-SURGICAL [...] insurance card, a photo ID (like a Wellness Trainer's license) and a method of payment for [...] THE DAY BEFORE your surgery, please call [phone] and ask for your surgeon's office DR [...] CDT) HCG, ur, POC Negative Lot Number [id number] QC Backgroud Clear Acceptable QC Control Line Acceptable Urine 07/16/2019 11:3 4 AM CDT Carissa Hector NP POINT OF CARE TEST ORDERABLES Final Result documented in this encounter Visit Diagnoses Diagnosis 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 or arthrodesis Arthrodesis status Painful orthopaedic hardware (HCC) 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 or arthrodesis Arthrodesis status [...] Given 07/16/2019 11:51 AM CDT 500 mg bupivacaine (MARCAINE) 0.5 % (5 mg/mL) preservative free injection As needed, Starting on Mon07/16/19 at 1542, Intra-Op Given 07/16/2019 3:42 PM CDT 20 mL famotidine (PEPCID) injection 20 mg 20 [...] at 1606, For 1 dose, Created by [email or web address] override prochlorperazine (COMPAZINE) injection 5 mg 5 [...] 1 patch Behind Right Ear sodium chloride 0.9 % irrigation As needed, Starting on Mon07/16/19 at 1432, Intra-Op Given 07/16/2019 2:32 PM CDT 1,000 mL Surgical Site sodium chloride 0.9% flush 0.5-20 mL 0.5-20 [...] (Medication Richard lied - Provider: Latisha Hull RN)1725 (Due: Medication Removed - Provider: Automatic Discharge [...] Recinos CRNA)1620 (New Bag - Provider: Bre Gutierrez, LEE)1716 (Stopped - Provider: Bre Gutierrez, LEE) PRN Medication Order 07/14/2019 07/15/2019 07/16/2019 bupivacaine (MARCAINE) 0.5 % (5 mg/mL) preservative free injection (CANCELED) As needed, Starting on e 07/16/19 at 1542, Intra-Op 1542 (Given - Provid er: Charissa Holley MD) fentaNYL (SUBLIMAZE) preservative free injection 25 mcg 25 mcg, intravenous, Every 10 min PRN, 1st line for pain, Starting on e 07/16/19 at 1604, Phase I, Switch to 2nd [...] PRN, 2nd line for pain, Starting on e 07/16/19 at 1604, Phase I, May administer 10 [...] Count Last Ordered Date First Ordered Date fentaNYL (SUBLIMAZE) preserv ative free injection 50 mcg 2 07/16/2019 lidocaine PF (XYLOCAINE) 10 mg/mL (1 %) preservative free injection 2-10 mg 1 07/16/2019 naloxone (NARCAN) 0.4 mg/mL injection 0.04-0.4 mg 1 07/16/2019 ondansetron (ZOFRAN) injection 4 mg 1 07/15 sodium chloride 0.9% flush 0.5-20 mL 1 03/2019 documented in this encounter Care Teams Bowling Alley Attendant Relationship Specialty Start Date End Date Jesusita Emmanuel MD PCP - General 07/16/19 07/31/19 documented as of this encounter
--- OUTSIDE RECORDS SUMMARY | 2024-02-21 19:40 | XMS_ITS | Encounter Summary ---
Author Organization [facility] Address [address] [place] [address] Care Team Providers Care Landscape Architecture Teacher Name Role Phone Daily Cruz MD Primary Care Provider [phone] Reason for Visit * Reason Onset Date Comments CT Results 08/13/2019 Encounter Details Date Type Department Care Team (Late st Contact Info) Description 08/13/2019 Telephone [facility] Family Medicine [address] [place] [address] Kassi Garcia PA [address] [address] [address] Results Social History Tobacco Use Types Packs/Day [...] on file 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 21 tablet 08/13/2019 0 hydroCHLOROthiazid e (HYDRODIURIL) 25 mg tablet Take 1 tablet (25 mg total) by mouth daily 30 tablet 08/13/2019 0 documented in this encounter Miscellaneous Notes * Addendum Note - Kassi Garcia PA - 08/13/2019 4:55 PM CDTAddended by: KASSI GARCIA on: 08/13/2019 04:55 PM Modules accepted: Orders * Addendum Note - Kassi Garcia PA - 08/13/2019 4:41 PM CDTAddended by: KASSI GARCIA on: 08/13/2019 04:41 PM Modules accepted: Orders * Telephone Encounter - Kassi Garcia PA - 08/13/2019 4:[address] Calero reviewed Start Medrol dose pack Refer to urology and lymphedema clinics Pt aware. * Telephone Encounter - Kassi Garcia PA - 08/13/2019 3:41 PM CDT Received stat CT results. Spoke to patient on the phone. Nothing to explain the swelling. Kidneys look ok - does have renal stones, but none obstructing. Willing to try a different diuretic. Will tryHCTZ - push fluids. Will have Dr. Calero review her chart as well. documented in this encounter Plan of Treatment Not on file documented as of this encounter Visit Diagnoses Diagnosis Nephrolithiasis- Primary Calculus of kidney Decreased urine output Lower extremity edema Edema documented in this encounter Discontinued Medications Medication Sig Discontinue Reason Start Date End Da te furosemide (LASIX) 20 mg tablet Take 1 tablet (20 mg total) by mouth daily Therapy completed 08/08/2019 08/13/2019 documented as of this encounter Care Teams Landscape Architecture Teacher Relationship Specialty Start Date End Date Daily Cruz MD PCP - General Family Medicine 08/01/19 03/03/21 documented as of this encounter
--- OUTSIDE RECORDS SUMMARY | 2024-02-21 19:40 | XMS_ITS | Encounter Summary ---
Author Organization [facility] Address [address] [place] [address] Phone Care Team Providers Care Truss Designer Name Role Phone Daily Cruz MD Primary Care Provider [phone] [phone] Encounter Details Date Type Department Care Team (Late st Contact Info) Description 08/07/2019 12:30 PM CDT Office Visit [facility] Orthopaedic Surgery [address] 1st Floor [address] [place] [address] Charissa Holley MD [address] [place], [place] [id number] Orthopedic aftercare (Primary Dx) Social History Tobacco [...] on file Legal Sex Female 3:37 PM 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 Good capilary refil. Sensation normal a few minutes after cast removal. Skin Condition: Clean, dry, and intact (Appearance of incision unchanged since last visit. ) [place]/Sutures Removed: No Pin Pulled: No Cast Removed: Yes Cast Applied: Yes Location: Foot Foot: L foot Cast type: Short leg non weightbearing cast Supplies: Cotton stocking/sleeve, cotton Padding, felt malleolar pads, felt padding, foam padding and fiberglass Number of fiberglass rolls used: 5 Capillary Refill: Normal Patient tolerance of procedure: Tolerated well, no immediate complications Additional felt padding over incision. Foam padding over posterior heel, same as original cast. Pt has history of swelling in LEs. Pt was reminded of cast care protocols, and that she should be careful for the rest of the day as the fiberglass takes several hours to fully set. Pt was satisfied withthe new cast. * Marylou Duque RMA - 08/07/2019 12:30 PM CDT IMPRESSION/PLAN: Patient is here for cast/splint change due to: patient complaints of the cast being too tight around one of her incisions. DIAGNOSIS: Surgical Procedure: 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 Date of Surgery: 07/16/2019 TREATMENT: She is placed in a new short-leg non-bearing cast made of synthetic materials The patient was encouraged to call us if any questions or concerns arise. FOLLOW UP: She will follow- up as scheduled. documented in this encounter Plan of Treatment Not on file documented as of this encounter Procedures Procedure Name Priority Date/Time Associated Diagnosis Comments ORTHO CASTING/SPLINTING Routine 08/07/2019 12:30 PM CDT Orthopedic aftercare documented in this encounter Results * Ortho Casting/Splinting Documentation (08/07/2019 12:30 PM CDT) Jodee Mccracken ATC - 08/07/2019 12:30 PM CDT Jodee Phan ATC ? 08/07/2019 ??1:39 PM Ortho Casting/Splinting Documentation Date/Time: 08/07/2019 1:33 PM Performed by: Jodee Phan ATC Authorized by: Charissa Holley MD Sensation: Pt c/o paresthesia of her great toe, and rubbing over her lateral incision. Good capilary refil. ??Sensation normal a few minutes after cast removal. Skin Condition: ??Clean, dry, and intact (Appearance of incision unchanged since last visit. ) [place]/Sutures Removed: No ?? Pin Pulled: No ?? Cast Removed: Yes ?? Cast Applied: Yes ?? Location: ??Foot Foot: ??L foot Cast type: ??Short leg non weightbearing cast Supplies: ??Cotton stocking/sleeve, cotton Padding, felt malleolar pads, felt padding, foam padding and fiberglass Number of fiberglass rolls used: ??5 Capillary Refill: ??Normal Patient tolerance of procedure: ??Tolerated well, no immediate complications Additional felt padding over incision. Foam padding over posterior heel, same as original cast. Pt has history of swelling in LEs. Pt was reminded of cast care protocols, and that she should be careful for the rest of the day as the fiberglass takes several hours to fully set. Pt was satisfied with the new cast. us Charissa Holley MD [facility] Final Result documented in this encounter Visit Diagnoses Diagnosis Orthopedic aftercare- Primary Unspecified orthopedic aftercare documented in this encounter Care Teams Truss Designer Relationship Specialty Start Date End Date Daily Cruz MD PCP - General Family Medicine 08/01/19 03/03/21 documented as of this encounter
--- OUTSIDE RECORDS SUMMARY | 2024-02-21 19:40 | XMS_ITS | Encounter Summary ---
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 Pt aware. * Addendum Note - Kassi Garcia PA - 08/13/2019 11:33 AM CDTAddended by: KASSI GARCIA on: 08/13/2019 11:33 AM Modules accepted: Orders * Telephone Encounter - Kassi Garcia PA - 08/13/2019 11:28 AM CDT Spoke to patient. Records reviewed. Normal renal function. Still with very little voiding. No diuretic use in 24 hours. No dysuria. H/o kidney stones seen on CT in the past. Will get stat CT abdomen/pelvis done today. * Telephone Encounter - Leticia Thomas - 08/13/2019 9:40 AM CDT Records received and given to JANICE Rosenbaum. * Telephone Encounter - Kassi Garcia PA - 08/13/2019 8:48 AM CDT Asked Leticia to get records for me. * Telephone Encounter - Kassi Garcia PA - 08/13/2019 8:43 AM CDT Unable to locate records. Patient was seen at [facility]. Can we please get her ER records sent over [facility]? * Telephone Encounter - Kassi Garcia PA - 08/12/2019 6:35 PM CDT Called patient. Still not urinating much. No Lasix today. Unable to access her ER records at the moment. Advised hold Lasix for now. Drink fluids. Keep leg elevated. Will review her ER records [place] and go from there. States ER told her kidney function was off * Telephone Encounter - Pina Carrillo LPN - 08/12/2019 4:58 PM CDT Patient called back wanting to know directions of what she should be doing. States she is non-weight bearing due to recent surgery she is on crutches, yesterday she did not go to the restroom until HS. She states at the end of conversation she has voided around 8-16 oz today. * Telephone Encounter - Janes Rodrigez MD - 08/12/2019 11:[address] [place] * Telephone Encounter - Pina Carrillo LPN - 08/12/2019 11:36 AM CDT Patient states she went to the ER on Monday night patient is on a dieretic she had only urinated 2xs in 2 days so she doubled up on her rx, swelling was mostly in her legs. Slight pitting edema Bilateral lower extremities swelling still present. Was told to call her PCP with an update today. Since she has only urinated 5 times. documented in this encounter Plan of Treatment Not on file documented as of this encounter Visit Diagnoses Diagnosis Leukocytosis, unspecified type- Primary Lower extremity edema Edema Elevated sedimentation rate Abdominal pain Abdominal pain, unspecified site History of kidney stones documented in this encounter Care Teams Sales Development Consultant Relationship Specialty Start Date End Date Daily Cruz MD PCP - General Family Medicine 08/01/19 03/03/21 documented as of this encounter
--- OUTSIDE RECORDS SUMMARY | 2024-02-21 19:40 | XMS_ITS | Encounter Summary ---
Author Organization [facility] Address [address] [place] [address] Care Team Providers Care Area Forester Name Role Phone Daily Cruz MD Primary Care Provider [phone] [phone] Reason for Referral * Diagnostic Imaging (Emergency) - Closed Specialty Diagnoses / Procedures Referred By Matt burk Referred To Contact Diagnoses Lower extremity edema Elevated sedimentation rate Leukocytosis, unspecified type Abdominal pain History of kidney stones Procedures CT Abdomen Pelvis WO Contrast Kassi Garcia PA Phone: tel: fax: [address] [address] Referral ID Status Reason Start Date Expiration Date Visits Re quested Visits Authorized [id number] Closed 08/13/2019 02/21/2021 1 1 Encounter Details Date Type Department Care Team (Late st Contact Info) Description 08/13/2019 2:32 PM CDT - 08/13/2019 11:59 PM CDT Hospital Encounter [facility] OP INTERIM Kassi Garcia PA [address] [id number] Lower extremity edema; Elevated sedimentation rate; Leukocytosis, unspecified type; Abdominal pain; History of kidney stones Discharge Disposition: Discharge to home or self [...] on file Legal Sex Female 3:37 PM REHAB NURSE Gender Identity Female 03/02/2020 4:27 PM REHAB NURSE Sexual Orientation Straight 07/10/2019 11 :13 PM [...] Diagnosis Comments CT ABDOMEN PELVIS WO CONTRAST STAT 08/13/2019 2:49 PM CDT Lower extremity edema Elevated sedimentation rate Leukocytosis, unspecified type Abdominal pain History of kidney stones documented in this encounter Results * CT Abdomen Pelvis WO Contrast (08/13/2019 2:49 PM CDT) Anatomical Region Laterality Modality Body N/A Computed Tomogra phy 08/13/2019 3:07 PM CDT Narrative 08/13/2019 3:20 PM CDT Patient Name: JUD THOMAS ?Ordering Dr: Kassi Garcia PA-C ?? D.O.B: 1990 ? Exam Date: 08/13/19 ?? 1449 ?? Age: 28 ?Sex: Female ? MR#: [id number] ?? Loc: ? RADIOLOGY REPORT ?? Order #[id number] ?? CT Scan ? CT Abd/Pelvis WO IV Contrast ? Signed ?? EXAM DESCRIPTION: ?? CT Abd/Pelvis WO IV Contrast ? REASON FOR STUDY: ?? Renal stones, now presenting with left flank pain and ?? decreased urinary output, onset 1 week ago ? TECHNIQUE: ??CT scan of the abdomen and pelvis performed without intravenous ?? and ??without oral contrast using helical scanning technique. Reconstructed ?? coronal and sagittal MPR images reviewed. All images stored on PACS. ? Automated exposure control was used as a dose optimization technique for this ?? examination. ? COMPARISON: ?? CT angiogram chest 07/12/2019 ? FINDINGS: ? The sensitivity for detection of visceral lesions is diminished without the ?? use of intravenous contrast. ? LOWER CHEST: ??Limited images of the lung bases do not demonstrate any focal ?? consolidation or pleural effusion. ? LIVER: ??The liver is normal in size with no hepatic surface nodularity. ??There ?? are no focal hepatic lesions on this noncontrast examination. ? GALLBLADDER: ??Normal with no cholelithiasis, gallbladder wall thickening or ?? pericholecystic fluid. ? BILE DUCTS: ??No intrahepatic or extrahepatic ductal dilatation. ? SPLEEN: ??The spleen is normal in size with no focal splenic lesions on this ?? noncontrast examination. ? PANCREAS: ??There are no focal pancreatic lesions on this noncontrast ?? examination. ??There is no peripancreatic inflammatory stranding or pancreatic ?? ductal dilatation. ? ADRENALS: ??Normal. ? KIDNEYS/URINARY TRACT: ??There are nonobstructing stones in both kidneys, ?? largest measuring 5 mm on the right and 3 mm on the left. ??There are no ?? obstructing renal or ureteral stones. ??There is no hydronephrosis or ?? hydroureter. ??There are no focal renal lesion on this noncontrast examination. ?The bladder is normal. ? GI: ??The stomach, small bowel, and large bowel are normal in caliber with no ?? evidence of obstruction or inflammation. ??The appendix is visualized and is ?? normal (axial images 82 through 104). ? PERITONEUM/RETROPERITONEUM: ??There is no abdominal or pelvic lymphadenopathy ?? or free fluid. ??There is no free intraperitoneal or retroperitoneal air. ? REPRODUCTIVE: ??The uterus is normal with an intrauterine device in place. ? Both ovaries are normal. ? VASCULATURE: ??The abdominal aorta is normal in caliber. ? MUSCULOSKELETAL: ??Bone windows do not demonstrate any abnormal osseous lytic ?? or blastic lesions. ??There is a small osseous defect in the left iliac crest, ?? likely related to recent surgery. ? OTHER: ??There is mild linear stranding the subcutaneous tissues overlying the ?? left iliac crest, likely related to recent surgery. ? IMPRESSION: ? 1. ??No CT evidence of an acute inflammatory process in the abdomen or pelvis. ? 2. ??Nonobstructing stones in both kidneys, largest measuring 5 mm on the right ?? and 3 mm on the left. ? 3. ??Small osseous defect in the left iliac crest as well as mild linear ?? stranding in the subcutaneous tissues overlying the left iliac crest, likely ?? related to recent surgery. ? THIS IS AN ELECTRONICALLY VERIFIED FINAL REPORT ?? 08/13/2019 3:20 PM - Electronically signed by Nicholas Stewart M.D. ?? Nicholas Stewart M.D. ? CN ?? D: ??08/13/2019 3:20 PM ?? T: ? Report ID: [id number] ?? Reading Location: ??[id number] ? REPORT ELECTRONICALLY SIGNED IN OTHER VENDOR SYSTEM ?? Resulting Agency Comment O Procedure Note Nicholas Stewart MD - 08/13/2019 Patient Name: WILLIAMJUD Dr: Kassi Garcia PA-C D.O.B: 1990 Exam Date: 08/13/19 1449 Age: 28 Sex: Female MR#: [id number] Loc: RADIOLOGY REPORT Order #[id number] CT Scan CT Abd/Pelvis WO IV Contrast Signed EXAM DESCRIPTION: CT Abd/Pelvis WO IV Contrast REASON FOR STUDY: Renal stones, now presenting with left flank pain and decreased urinary output, onset 1 week ago TECHNIQUE: CT scan of the abdomen and pelvis performed withoutintravenous and without oral contrast using helical scanning technique.Reconstructed coronal and sagittal MPR images reviewed. All images stored on PACS. Automated exposure control was used as a dose optimization technique forthis examination. COMPARISON: CT angiogram chest 07/12/2019 FINDINGS: The sensitivity for detection of visceral lesions is diminished withoutthe use of intravenous contrast. LOWER CHEST: Limited images of the lung bases do not demonstrate anyfocal consolidation or pleural effusion. LIVER: The liver is normal in size with no hepatic surface nodularity.There are no focal hepatic lesions on this noncontrast examination. GALLBLADDER: Normal with no cholelithiasis, gallbladder wall thickeningor pericholecystic fluid. BILE DUCTS: No intrahepatic or extrahepatic ductal dilatation. SPLEEN: The spleen is normal in size with no focal splenic lesions onthis noncontrast examination. PANCREAS: There are no focal pancreatic lesions on this noncontrast examination. There is no peripancreatic inflammatory stranding orpancreatic ductal dilatation. ADRENALS: Normal. KIDNEYS/URINARY TRACT: There are nonobstructing stones in both kidneys, largest measuring 5 mm on the right and 3 mm on the left. There are no obstructing renal or ureteral stones. There is no hydronephrosis or hydroureter. There are no focal renal lesion on this noncontrastexamination. The bladder is normal. GI: The stomach, small bowel, and large bowel are normal in caliber withno evidence of obstruction or inflammation. The appendix is visualized andis normal (axial images 82 through 104). PERITONEUM/RETROPERITONEUM: There is no abdominal or pelviclymphadenopathy or free fluid. There is no free intraperitoneal or retroperitoneal air. REPRODUCTIVE: The uterus is normal with an intrauterine device in place. Both ovaries are normal. VASCULATURE: The abdominal aorta is normal in caliber. MUSCULOSKELETAL: Bone windows do not demonstrate any abnormal osseouslytic or blastic lesions. There is a small osseous defect in the left iliaccrest, likely related to recent surgery. OTHER: There is mild linear stranding the subcutaneous tissues overlyingthe left iliac crest, likely related to recent surgery. IMPRESSION: 1. No CT evidence of an acute inflammatory process in the abdomen orpelvis. 2. Nonobstructing stones in both kidneys, largest measuring 5 mm on theright and 3 mm on the left. 3. Small osseous defect in the left iliac crest as well as mild linear stranding in the subcutaneous tissues overlying the left iliac crest,likely related to recent surgery. THIS IS AN ELECTRONICALLY VERIFIED FINAL REPORT 08/13/2019 3:20 PM - Electronically signed by Nicholas Stewart M.D. CN T: Report ID: [id number] Reading Location: [id number] REPORT ELECTRONICALLY SIGNED IN OTHER VENDOR SYSTEM Kassi MOJICA IMG CT PROCEDURES Final Result documented in this encounter Visit Diagnoses Diagnosis Lower extremity edema Edema Elevated sedimentation rate Leukocytosis, unspecified type Abdominal pain Abdominal pain, unspecified site History of kidney stones documented in this encounter Care Teams Area Forester Relationship Specialty Start Date End Date Daily Cruz MD PCP - General Family Medicine 08/01/19 03/03/21 documented as of this encounter
--- OUTSIDE RECORDS SUMMARY | 2024-02-21 19:40 | XMS_ITS | Encounter Summary ---
Author Organization [facility] Address [address] [place] [address] Phone Care Team Providers Care Diesel Pile Driver Operator Name Role Phone Daily Cruz MD Primary Care Provider [phone] [phone] Reason for Visit * Reason Comments Pain Encounter Details Date Type Department Care Team (Late st Contact Info) Description 09/09/2019 2:30 PM CDT Office Visit [facility] Orthopaedic Surgery [address] 1st [address] [place] [address] Charissa Holley MD [address] [place] [address] Orthopedic aftercare (Primary Dx) Social History Tobacco [...] file Legal Sex Female 3:37 PM 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 Date of Surgery: 07/16/2019 ?? The patient returns today for the left foot. She is now 8 weeks post operative. She denies fevers or chills. She reports that her cast got wet. PHYSICAL EXAMINATION The left foot is in good condition. Swelling is minimal. The wound is clean and dry with no breakdown or signs of infection. Sensation is grossly intact to light touch. She is nontender at the surgical site. Alignment is maintained REVIEW OF X-RAYS/STUDIES No new radiographs are obtained today. IMPRESSION/DIAGNOSIS Post above-stated procedure doing well TREATMENT/PLAN The patient was placed in a short leg, weight bearing cast made of synthetic materials in clinic today. The patient can bear weight as tolerated on the left lower extremity. Precautions were discussed. The patient should ice and elevate as needed for comfort. She already has an appointment scheduled to weeks from now for cast removal and transition to a boot. The patient was encouraged to call us if any questions or concerns arise. FOLLOW UP Follow up 2 weeks Next visit: no radiographs needed Charissa Holley MD Retail Warehouse Associate Foot & Ankle Service [facility] Orthopedics Dr. Charissa Holley dictating using [employer] Speaking Software. Barn And Property Manager variances may occur. * Jodee Phan ATC - 09/09/2019 2:30 PM CDTAssociated Order(s): Ortho Casting/Splinting Documentation Post-Procedure Diagnose(s): Orthopedic aftercare Ortho Casting/Splinting Documentation Date/Time: 09/09/2019 2:41 PM Performed by: Jodee Phan ATC Authorized by: Charissa Holley MD Sensation: Normal Skin Condition: Clean, dry, and intact (toes damp, no maceration) [place]/Sutures Removed: No Pin Pulled: No Cast Removed: Yes (Cast damp at distal end) Cast Applied: Yes Location: Foot Foot: L foot Cast type: Short leg weightbearing cast Supplies: Cotton stocking/sleeve, cotton Padding, felt malleolar pads, felt tiba pads, foam padding, fiberglass and weightbearing strip Number of fiberglass rolls used: 6 Capillary Refill: Normal Patient tolerance of procedure: Tolerated well, no immediate complications documented in this encounter Plan of Treatment Not on file documented as of this encounter Procedures Procedure Name Priority Date/Time Associated Diagnosis Comments ORTHO CASTING/SPLINTING Routine 09/09/2019 2:30 PM CDT Orthopedic aftercare documented in this encounter Results * Ortho Casting/Splinting Documentation (09/09/2019 2:30 PM CDT) Narrative Jodee Phan ATC - 09/09/2019 2:30 PM CDT Jodee Phan ATC ? 09/10/2019 ??7:42 AM Ortho Casting/Splinting Documentation Date/Time: 09/09/2019 2:41 PM Performed by: Jodee Phan ATC Authorized by: Charissa Holley MD Sensation: ??Normal Skin Condition: ??Clean, dry, and intact (toes damp, no maceration) [place]/Sutures Removed: No ?? Pin Pulled: No ?? Cast Removed: Yes (Cast damp at distal end) ?? Cast Applied: Yes ?? Location: ??Foot Foot: ??L foot Cast type: ??Short leg weightbearing cast Supplies: ??Cotton stocking/sleeve, cotton Padding, felt malleolar pads, felt tiba pads, foam padding, fiberglass and weightbearing strip Number of fiberglass rolls used: ??6 Capillary Refill: ??Normal Patient tolerance of procedure: ??Tolerated well, no immediate complications us Charissa Holley MD IN CLINIC[facility]EDSIDE [facility] Result - Final documented in this encounter Visit Diagnoses Diagnosis Orthopedic aftercare- Primary Unspecified orthopedic aftercare documented in this encounter Care Teams Diesel Pile Driver Operator Relationship Specialty Start Date End Date Daily Cruz MD PCP - General Family Medicine 08/01/19 03/03/21 documented as of this encounter
--- OUTSIDE RECORDS SUMMARY | 2024-02-21 19:40 | XMS_ITS | Encounter Summary ---
Author Organization [facility] Address [address] [place] [address] Phone Care Team Providers Care Nozzle Worker Name Role Phone Jesusita Emmanuel MD Primary Care Provide r Encounter Details Date Type Department Care Team (Late st Contact Info) Description 07/12/2019 Orders Only [facility] Orthopaedic Surgery [address] 1st [address] [place] [address] Charissa Holley MD [address] [place] [address] Social History Tobacco Use Types Packs/Day Years [...] on file Legal Sex Female 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 Gender Identity Female 03/02/2020 4:27 PM NEWSPAPER DELIVERY DRIVER Sexual Orientation Straight 07/10/2019 11 :13 PM CDT documented as of this encounter Ordered Prescriptions Prescription Sig Dispense Quantity Refills Last Filled Start Date End Date ketorolac (TORADOL) 10 mg tablet Take 1 tablet every 6 hours until gone 16 tablet 07/12/2019 0 aspirin 325 mg enteric coated tablet Take 1 tablet (325 mg total) by mouth daily 30 tablet 07/12/2019 0 senna (SENOKOT) 8.6 mg tablet Take 1 tablet by mouth daily 30 tablet 07/12/2019 0 promethazine (PHENERGAN) 12.5 mg tablet Take 1 tablet (12.5 mg total) by mouth every 6 (six) hours as needed for nausea or vomiting 30 tablet 1 07/12/2019 0 documented in this encounter Plan of Treatment Not on file documented as of this encounter Visit Diagnoses Not on filedocumented in this encounter Care Teams Nozzle Worker Relationship Specialty Start Date End Date Jesusita Emmanuel MD PCP - General 07/12/19 07/14/19 documented as of this encounter
--- OUTSIDE RECORDS SUMMARY | 2024-02-21 19:40 | XMS_ITS | Encounter Summary ---
Author Organization [facility] Address [address] [place] [address] Phone Care Team Providers Care Chief Development Officer Name Role Phone Daily Cruz MD Primary Care Provider [phone] [phone] Reason for Visit * Reason Comments Follow-up Encounter Details Date Type Department Care Team (Late st Contact Info) Description 08/22/2019 3:15 PM CDT Office Visit [facility] Orthopaedic Surgery [address] 1st [address] [place] [address] Charissa Holley MD [address] [place] [address] Orthopedic aftercare (Primary Dx) Social History Tobacco [...] on file 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 Date of Surgery: 07/16/2019 The patient returns today for the left foot. Patient reports some issues with her cast. She is heretoday for cast change. PHYSICAL EXAMINATION The patient is alert and in no acute distress. The left foot has mild swelling. She has no significant tenderness. Her wound is well healed REVIEW OF X-RAYS/STUDIES No new radiographs are obtained today. IMPRESSION/DIAGNOSIS Post above-stated procedure doing well TREATMENT/PLAN The patient was placed in a short leg, nonweightbearing cast made of synthetic materials in clinic today. The patient will remain nonweightbearing for now and will continue to ice and elevate for comfort. The patient was encouraged to call us if any questions or concerns arise. FOLLOW UP Follow up in 1 weeks Next visit: Radiographs of the left foot Charissa Holley MD Judicial Clerk Foot & Ankle Service [facility] Orthopedics Dr. Charissa Holley dictating using [email or web address] Speaking Software. Radiotelegrapher variances may occur. Charissa Holley MD * Shadi Pierce - 08/22/2019 3:15 PM CDTAssociated Order(s): Ortho Casting/Splinting Documentation Post-Procedure Diagnose(s): Orthopedic aftercare Ortho Casting/Splinting Documentation Date/Time: 08/22/2019 4:27 PM Performed by: Shadi Pierce Authorized by: Charissa Holley MD Sensation: Normal Skin Condition: Clean, dry, and intact Caret/Sutures Removed: No Pin Pulled: No Cast Removed: Yes Cast Applied: Yes Location: Foot Foot: L foot Cast type: Short leg non weightbearing cast Supplies: Cotton Padding, cotton stocking/sleeve, fiberglass, felt malleolar pads, felt tiba pads and foam padding Number of fiberglass rolls used: 5 Capillary Refill: Normal Patient tolerance of procedure: Tolerated well, no immediate complications documented in this encounter Plan of Treatment Not on file documented as of this encounter Procedures Procedure Name Priority Date/Time Associated Diagnosis Comments ORTHO CASTING/SPLINTING Routine 08/22/2019 3:15 PM CDT Orthopedic aftercare documented in this encounter Results * Ortho Casting/Splinting Documentation (08/22/2019 3:15 PM CDT) Shadi Dunn - 08/22/2019 3:15 PM CDT Shadi Pierce ? 08/28/2019 ??4:28 PM Ortho Casting/Splinting Documentation Date/Time: 08/22/2019 4:27 PM Performed by: Shadi Pierce Authorized by: Charissa Holley MD Sensation: ??Normal Skin Condition: ??Clean, dry, and intact Jose/Sutures Removed: No ?? Pin Pulled: No ?? Cast Removed: Yes ?? Cast Applied: Yes ?? Location: ??Foot Foot: ??L foot Cast type: ??Short leg non weightbearing cast Supplies: ??Cotton Padding, cotton stocking/sleeve, fiberglass, felt malleolar pads, felt tiba pads and foam padding Number of fiberglass rolls used: ??5 Capillary Refill: ??Normal Patient tolerance of procedure: ??Tolerated well, no immediate complications us Charissa Holley MD IN CLINIC[facility]IDE [facility] Final Result documented in this encounter Visit Diagnoses Diagnosis Orthopedic aftercare- Primary Unspecified orthopedic aftercare documented in this encounter Care Teams Chief Development Officer Relationship Specialty Start Date End Date Daily Cruz MD PCP - General Family Medicine 08/01/19 03/03/21 documented as of this encounter
--- OUTSIDE RECORDS SUMMARY | 2024-02-21 19:40 | XMS_ITS | Encounter Summary ---
Author Organization [facility] Address [address] [place] [address] Care Team Providers Care Concrete Precast Moulder Name Role Phone Daily Cruz MD Primary Care Provider [phone] [phone] Encounter Details Date Type Department Care Team (Late st Contact Info) Description 12/18/2019 2:00 PM SPEECH AND HEARING DIRECTOR Telemedicine [facility] Family Medicine [address] [place] [address] Daily Cruz MD [address] [place] [address] [address] [place] [address] Cough (Primary Dx); Nasal congestion; Exposure to COVID-19 virus Social History Tobacco Use Types Packs/Day Years [...] on file Legal Sex Female 3:37 PM SPEECH AND HEARING DIRECTOR Gender Identity Female 03/02/2020 4:27 PM SPEECH AND HEARING DIRECTOR Sexual Orientation Straight 07/10/2019 11 :13 PM CDT documented as of this encounter Last Filed Vital Signs Vital Sign Reading Time Taken Comments Blood Pressure - - Pulse 73 12/18/2019 1:33 PM SPEECH AND HEARING [facility] Temperature 37.6 ??C (99.6 ??F) 12/18/2019 1:33 PM CS T at home Respiratory Rate - - Oxygen Saturation - - Inhaled Oxygen Concentration - - Weight 122.5 kg (270 lb) 12/18/2019 1:33 PM SPEECH AND HEARING DIRECTOR at home Height 170.2 cm (5' 7 ) 12/18/2019 1:33 PM SPEECH AND HEARING DIRECTOR Body Mass Index 42.29 12/18/2019 1:33 PM SPEECH AND HEARING DIRECTOR documented in this encounter Patient Instructions * Patient Instructions* Daily Cruz MD - 12/18/2019 2:00 PM SPEECH AND HEARING DIRECTOR Patient Education Fluticasone (Into the nose) Fluticasone (lvmc-[id number]-[id number]) Treats allergy symptoms, such as runny or stuffy nose. This medicine is a corticosteroid. Brand Name(s): Children's Flonase, ClariSpray, DermacinRx Azenase Michael, DermacinRx Ticanase Michael, Flonase, Flonase Sensimist, Fluticasone Propionate Novaplus, Ticaspray, Veramyst There may be other brand names for this medicine. When This Medicine Should Not Be Used: This medicine is not right for everyone. Do not use if you had an allergic reaction to fluticasone. How to Use This Medicine: [place] ?? Your doctor will tell you how much medicine to use. Do not use more than directed. ?? This medicine is for use only in the nose. Do not get any of it in your eyes or on your skin. Ifit does get on these areas, rinse it off right away. ?? Prime the spray: Release 6 test sprays into the air away from the face, or pump the bottle untilsome of the medicine sprays out. Now it is ready to use. Prime the spray if it has not been used for more than 7 days (or 30 days for Veramyst??) or if the cap has been left off the bottle for 5 daysor longer. ?? Shake the medicine well just before each use. ?? Before using the medicine, gently blow your nose to clear the nostrils. ?? After using the nasal spray, wipe the tip of the bottle with a clean tissue and put the cap backon. ?? You may need to use this medicine for a few days before you start to feel better. ?? Read and follow the patient instructions that come with this medicine. Talk to your doctor or pharmacist if you have any questions. ?? Follow the instructions on the medicine label if you are using this medicine without a prescription. ?? Missed dose: Take a dose as soon as you remember. If it is almost time for your next dose, wait until then and take a regular dose. Do not take extra medicine to make up for a missed dose. ?? Keep the bottle tightly closed when not using it. Store at room temperature, away from heat and direct light. Do not freeze or refrigerate. Throw this medicine away after you use 120 sprays. Drugs and Foods to Avoid: Ask your doctor or pharmacist before using any other medicine, including tjwy-axr-ublrquu medicines, vitamins, and herbal products. ?? Do not use this medicine together with ritonavir. ?? Some foods and medicines can affect how fluticasone works. Tell your doctor if you are using ketoconazole. Warnings While Using This Medicine: ?? Tell your doctor if you are or , or if you have liver disease, asthma, an infection, or a history of cataracts or glaucoma. Make sure your doctor knows if you have had nose surgery, a nose injury, or a recent infection in your nose. ?? This medicine may cause the following problems: ?? Holes or ulcers inside the nose ?? Slow wound healing ?? Cataracts or glaucoma ?? Problems with the adrenal glands ?? Slow growth in children ?? Avoid people who are sick or have infections. Tell your doctor right away if you think you have been exposed to measles or chickenpox. ?? Your doctor will check your progress and the effects of this medicine at regular visits. Keep all appointments. ?? Call your doctor if your symptoms [...] or throat, chest tightness, trouble breathing ?? Burning, redness, swelling, or irritation around or inside your nose ?? Eye pain or vision changes ?? Fever, chills, cough, sore throat, and body aches ?? Heavy nosebleeds ?? Sores or white patches inside the nose or mouth ?? Tiredness, weakness, dizziness If you notice other side effects that you think are caused by this medicine, tell your doctor. Call your doctor for medical advice about side effects. You may report side effects to FDA at 8-131-FSM-4713 ?? 2017 [employer] Information is for End User's use only and may not be sold, redistributed or otherwise used for commercial purposes. The above information is an ward maid only. It is not intended as medical advice for individual conditions or treatments. Talk to your doctor, nurse or pharmacist before following any medical regimen to see if it is safe and effective for you. CH AND HEARING DIRECTOR documented in this encounter Ordered Prescriptions Prescription Sig Dispense Quantity Refills Last Filled Start Date End Date HYDROcodone-chlorp heniramine ER (TUSSIONEX PENNKINETIC) 2-1.6 mg/mL ER suspensionIndicati ons:Cough Take 5 mL by mouth every 12 (twelve) hours as needed for cough 100 mL 12/18/2019 0 budesonide-formote roL (Symbicort) 80-4.5 mcg/actuation inhalerIndications :Cough Inhale 2 puffs 2 (two) times a day Rinse mouth with water after use. Do not swallow. 1 Inhaler 12/18/2019 0 levocetirizine (XYZAL) 5 mg tabletIndications: Cough,Nasal congestion Take 1 tablet (5 mg total) by mouth daily 30 tablet 12/18/2019 2 fluticasone propionate (FLONASE) 50 mcg/actuation nasal sprayIndications:C ough,Nasal congestion Administer 2 sprays into each nostril daily 16 g 12/18/2019 2 azithromycin (ZITHROMAX) 250 mg tabletIndications: Cough,Nasal congestion Take 2 tabs (500 mg) by mouth today, than 1 daily for 4 days. 6 tablet 12/18/2019 0 documented in this encounter Progress Notes * Daily Cruz MD - 12/18/2019 2:00 PM CST Images from the original note were not included. Patient ID: Jud Leung is a 29 y.o. female. Visit Date: 12/18/2019 This was a telemedicine visit with Jud Leung alone which took place via real-time video connection with [employer]. During the visit, I was located in the office and the patient was located at home in the [facility]. The patient visit started at 14:03 and ended at 14:12. . The patient has been informed that [...] applicable copayments. Daily Cruz MD Chief Complaint Cough Nasal congesiton HPI Was on hayride with friends and 2 tested positive for COVID. Now, has nasal congestion, sinus pressure and harsh cough Current Outpatient Medications: ??? albuterol HFA (Ventolin HFA) 90 mcg/actuation inhaler, Inhale 2 puffs every 6 (six) hours as needed, Disp: , Rfl: ??? levonorgestreL (KYLEENA) IUD, 1 each by intrauterine route once , Disp: , Rfl: ??? azithromycin (ZITHROMAX) 250 [...] cough, Disp: 120 mL, Rfl: 0 ??? HYDROcodone-chlorpheniramine ER (TUSSIONEX PENNKINETIC) 2-1.6 mg/mL ER suspension, Take 5 mL bymouth every 12 (twelve) hours as needed for cough (Patient not taking: Reported on 12/21/2019), Disp: 100 mL, Rfl: 0 ??? levocetirizine (XYZAL) 5 mg tablet, Take 1 tablet (5 mg total) by mouth daily, Disp: 30 tablet, Rfl: 0 Review of Systems Constitutional: Negative for fatigue and fever. HENT: Positive for congestion and sinus pain. Negative for ear pain, nosebleeds and rhinorrhea. Eyes: Negative for pain and redness. Respiratory: Positive for cough. Negative for shortness of breath. Cardiovascular: Negative for chest pain and palpitations. Gastrointestinal: Negative for abdominal pain and diarrhea. Endocrine: Negative for cold intolerance. Genitourinary: Negative for dysuria and frequency. Musculoskeletal: Negative for arthralgias and back pain. Neurological: Negative for dizziness and headaches. Hematological: Does not bruise/bleed easily. Psychiatric/Behavioral: Negative for behavioral problems and confusion. Pulse 73 Comment: at home Temp 37.6 ??C (99.6 ??F) (Oral) Comment: at home Comment (Src): at home Ht 170.2 cm (5' 7 ) Wt 122.5 kg (270 lb) Comment: at home BMI 42.29 kg/m?? Body mass index is42.29 kg/m??. Physical Exam Constitutional: Appearance: Normal appearance. [...] Diagnoses and all orders for this visit: Cough (Primary) Assessment & Plan: Was exposed to COVID Order covid tsting Order zpack, symbicort, tussionex Orders: - azithromycin (ZITHROMAX) 250 mg tablet; Take 2 tabs (500 mg) by mouth today, than 1 daily for 4 days. - fluticasone propionate (FLONASE) 50 mcg/actuation nasal spray; Administer 2 sprays into each nostril daily - levocetirizine (XYZAL) 5 mg tablet; Take 1 tablet (5 mg total) by mouth daily - Request for Ambulatory Collection Site Testing - Adult; Future - budesonide-formoteroL (Symbicort) 80-4.5 mcg/actuation inhaler; Inhale 2 puffs 2 (two) times a day Rinse mouth with water after use. Do not swallow. - HYDROcodone-chlorpheniramine ER (TUSSIONEX PENNKINETIC) 2-1.6 mg/mL ER suspension; Take 5 mL by mouth every 12 (twelve) hours as needed for cough (Patient not taking: Reported on 12/21/2019) Nasal congestion Assessment & Plan: Was exposed to COVID Order covid tsting Order flonase, xyzal Orders: - azithromycin (ZITHROMAX) 250 mg tablet; Take 2 tabs (500 mg) by mouth today, than 1 daily for 4 days. - fluticasone propionate (FLONASE) 50 mcg/actuation nasal spray; Administer 2 sprays into each nostril daily - levocetirizine (XYZAL) 5 mg tablet; Take 1 tablet (5 mg total) by mouth daily - Request for Ambulatory Collection Site Testing - Adult; Future Exposure to COVID-19 virus - Request for Ambulatory Collection Site Testing - Adult; Future Daily Cruz MD CH AND HEARING DIRECTOR documented in this encounter Miscellaneous Notes * Assessment & Plan Note - Daily Cruz MD - 12/23/2019 5:19 AM SPEECH AND HEARING DIRECTOR Associated Problem(s): Nasal congestion (Resolved 02/22/2023) Was exposed to COVID Order covid tsting Order flonase, xyzal CH AND HEARING DIRECTOR * Assessment & Plan Note - Daily Cruz MD - 12/23/2019 5:18 AM SPEECH AND HEARING DIRECTOR Associated Problem(s): Acute cough Was exposed to COVID Order covid tsting Order zpack, symbicort, tussionex CH AND HEARING DIRECTOR documented in this encounter Plan of Treatment Not on file documented as of this encounter Visit Diagnoses Diagnosis Cough- Primary Nasal congestion Other diseases of nasal cavity and sinuses Exposure to COVID-19 virus documented in this encounter Discontinued Medications Medication Sig Discontinue Reason Start Date End Da te aspirin 325 mg enteric coated tablet Take 1 tablet (325 mg total) by mouth daily Therapy completed 07/12/2019 12/18/2019 methylPREDNISolone (MEDROL DOSEPACK) 4 mg Dosepack Take as directed on package. Therapy completed 08/13/2019 12/18/2019 hydroCHLOROthiazide (HYDRODIURIL) 25 mg tablet TAKE 1 TABLET BY MOUTH EVERY DAY Therapy completed 09/06/2019 12/18/2019 documented as of this encounter Care Teams Concrete Precast Moulder Relationship Specialty Start Date End Date Daily Cruz MD PCP - General Family Medicine 08/01/19 03/03/21 documented as of this encounter
--- OUTSIDE RECORDS SUMMARY | 2024-02-21 19:40 | XMS_ITS | Encounter Summary ---
Author Organization [facility] Address [address] [place] [address] Phone Care Team Providers Care Bookmobile Librarian Name Role Phone Daily Cruz MD Primary Care Provider [phone] [phone] Encounter Details Date Type Department Care Team (Late st Contact Info) Description 11/26/2019 Telephone [facility] Orthopaedic Surgery [address] 1st [address] [place] [address] Charissa Holley MD [address] [place], [place] [id number] Social History Tobacco Use Types Packs/Day Years [...] on file 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 I called him back at [phone] leaving a message stating the paperwork was correct she can return to work. documented in this encounter Plan of Treatment Not on file documented as of this encounter Visit Diagnoses Not on filedocumented in this encounter Care Teams Bookmobile Librarian Relationship Specialty Start Date End Date Daily Cruz MD PCP - General Family Medicine 08/01/19 03/03/21 documented as of this encounter
--- OUTSIDE RECORDS SUMMARY | 2024-02-21 19:40 | XMS_ITS | Encounter Summary ---
Author Organization [facility] Address [address] [place] [address] Care Team Providers Care Pinsetter Mechanic Helper Name Role Phone Daily Cruz MD Primary Care Provider [phone] [phone] Reason for Referral * Diagnostic Imaging (Routine) - Closed Specialty Diagnoses / Procedures Referred By Matt burk Referred To Contact Radiology Diagnoses Left foot pain Procedures CT Foot Left WO Contrast Charissa Holley MD Phone: tel: fax: [facility] Referral ID Status Reason Start Date Expiration Date Visits Re quested Visits Authorized [id number] Closed 10/30/2019 04/27/2020 1 1 Reason for Visit * Diagnostic Imaging (Routine) - Closed Specialty Diagnoses / Procedures Referred By Matt burk Referred To Contact Radiology Diagnoses Left foot pain Procedures CT Foot Left WO Contrast Charissa Holley MD Phone: tel: fax: [facility] Referral ID Status Reason Start Date Expiration Date Visits Re quested Visits Authorized [id number] Closed 10/30/2019 04/27/2020 1 1 Encounter Details Date Type Department Care Team (Latest Contact Info) Description 11/04/2019 12:25 PM CDT - 11/04/2019 11:59 PM CDT Hospital Encounter [facility] Radiology at [facility] [address] [place] [address] Charissa Holley MD [address] [place] [address] Left foot pain Discharge Disposition: Discharge to [...] on file Legal Sex Female 3:37 PM EARLY HEAD START DIRECTOR Gender Identity Female 03/02/2020 4:27 PM EARLY HEAD START DIRECTOR Sexual Orientation Straight 07/10/2019 11 :13 [...] Name Priority Date/Time Associated Diagnosis Comments CT FOOT LEFT WO CONTRAST Schedule Routine, Read Routine (OP Routine) 11/04/2019 1:13 PM CDT Left foot pain documented in this encounter Results * CT Foot Left WO Contrast (11/04/2019 1:13 PM CDT) Anatomical Region Laterality Modality Lower Extremities Left Computed Tomog dickson 11/04/2019 2:48 PM CDT Impressions 11/04/2019 4:03 [...] MD IMG CT PROCEDURES Karen l Result documented in this encounter Visit Diagnoses Diagnosis Left foot pain Pain in soft tissues of limb documented in this encounter Care Teams Pinsetter Mechanic Helper Relationship Specialty Start Date End Date Daily Cruz MD PCP - General Family Medicine 08/01/19 03/03/21 documented as of this encounter
--- OUTSIDE RECORDS SUMMARY | 2024-02-21 19:40 | XMS_ITS | Encounter Summary ---
Author Organization [facility] Address [address] [place] [address] Care Team Providers Care Criminal Justice Professor Name Role Phone Daily Cruz MD Primary Care Provider [phone] [phone] Jesusita Emmanuel MD Primary Care Provide r Encounter Details Date Type Department Care Team (Late st Contact Info) Description 07/11/2019 Orders Only [facility]/ Physicians [address] [place] [address] Charissa Holley MD [address] [phone] Pre-op testing (Primary Dx) Social History Tobacco Use Types [...] on file Legal Sex Female 3:37 PM PLASTIC SHEETING CUTTER Gender Identity Female 03/02/2020 4:27 PM PLASTIC SHEETING CUTTER Sexual Orientation Straight 07/10/2019 11 :13 PM CDT documented as of this encounter Progress Notes * Xuan Hull MA - 07/11/2019 11:32 AM CDT Pt screened eligible for Covid-19 testing. Order placed. Order and label printed for Location: [facility] documented in this encounter Miscellaneous Notes * Addendum Note - Jessica Ramirez - 07/11/2019 11:32 AM CDTAddended by: JESSICA RAMIREZ on: 07/12/2019 07:31 PM Modules accepted: Orders documented in this encounter Plan of Treatment Not on file documented as of this encounter Results * COVID-19 Coronavirus RNA Nasopharyngeal (07/12/2019 2:55 PM CDT) COVID-19 RNA Not Detected ANGELICA BILLS Comment: Interpretive Data Testing performed at [facility] Molecular Infectious Disease Laboratory. The 2018-Novel Coronavirus Assay (COVID-19) Real Time RT-PCR assay [...] to scheduled (>24 hr) surgery or procedure us Charissa Holley MD LAB MICROBIOLOGY - GEN ERAL ORDERABLES Final Result ANGELICA GARDUNO [facility] Department [place] [address] documented in this encounter Visit Diagnoses Diagnosis Pre-op testing- Primary Unspecified pre-operative examination Pre-op testing Unspecified pre-operative examination documented in this encounter Care Teams Criminal Justice Professor Relationship Specialty Start Date End Date Daily Cruz MD PCP - General Family Medicine 07/09/19 07/11/19 Jesusita Emmanuel MD PCP - General 07/12/19 07/14/19 documented as of this encounter
--- OUTSIDE RECORDS SUMMARY | 2024-02-21 19:40 | XMS_ITS | Encounter Summary ---
Author Organization [facility] Address [address] [place] [address] Phone Care Team Providers Care Teletray Operator Name Role Phone Jesusita Emmanuel MD Primary Care Provide r Encounter Details Date Type Department Care Team (Late st Contact Info) Description 07/24/2019 Telephone [facility] Orthopaedic Surgery [address] 1st Floor [address] [place] [address] Charissa Holley MD [address] [place], [place] [id number] Social History Tobacco Use Types Packs/Day Years [...] file Legal Sex Female 3:37 PM SENIOR WEB APPLICATIONS DEVELOPER Gender Identity Female 03/02/2020 4:27 PM SENIOR WEB APPLICATIONS DEVELOPER Sexual Orientation Straight 07/10/2019 11 :13 PM CDT documented as of this encounter Miscellaneous Notes * Telephone Encounter - Marylou Duque RMA - 07/24/2019 3:38 PM CDT The patient called with splint issues. I called her and talked her through loosing up the splint herself at home to see if that would help. She has done this and states it feels a little better. She will call with any other issues. The patient has called back this afternoon with complaints of the splint being too tight again and sharp shooting pain near the incision. I have arranged for her to come into the office tomorrow to have this addressed. documented in this encounter Plan of Treatment Not on file documented as of this encounter Visit Diagnoses Not on filedocumented in this encounter Care Teams Teletray Operator Relationship Specialty Start Date End Date Jesusita Emmanuel MD PCP - General 07/16/19 07/31/19 documented as of this encounter
--- OUTSIDE RECORDS SUMMARY | 2024-02-21 19:40 | XMS_ITS | Encounter Summary ---
Author Organization [facility] Address [address] [place] [address] Care Team Providers Care Director Of Curriculum And Instruction Name Role Phone Daily Cruz MD Primary Care Provider [phone] Reason for Visit * Reason Onset Date Comments Possibly dehydrated 12/20/2019 Encounter Details Date Type Department Care Team (Late st Contact Info) Description 12/20/2019 Telephone [facility] Family Medicine [address] [place] [address] Daily Cruz MD [address] [place] [id number] Possibly dehydrated Social History Tobacco Use Types Packs/Day Years [...] on file Legal Sex Female 3:37 PM ERGONOMIST Gender Identity Female 03/02/2020 4:27 PM ERGONOMIST Sexual Orientation Straight 07/10/2019 11 :13 PM CDT documented as of this encounter Miscellaneous Notes * Telephone Encounter - Stefanie Best MA - 12/20/2019 1:28 PM CST Pt aware NOMIST * Telephone Encounter - Daily Cruz MD - 12/20/2019 1:19 PM ERGONOMIST Have her go to the ER NOMIST * Telephone Encounter - Nikki Rodríguez - 12/20/2019 12:51 PM CST Patient called, says she called earlier and someone was supposed to send you a message, but I don'tsee where a message was sent. Patient has a Zoom appointment with you tomorrow, but feels like she may be dehydrated. She said when she stands up she feels light headed and dizzy. Sometimes feels sweaty and has a bad migraine. Patient wants to know if she needs to go to ER or if there is something she can try first. NOMIST documented in this encounter Plan of Treatment Not on file documented as of this encounter Visit Diagnoses Not on filedocumented in this encounter Care Teams Director Of Curriculum And Instruction Relationship Specialty Start Date End Date Daily Cruz MD PCP - General Family Medicine 08/01/19 03/03/21 documented as of this encounter
--- OUTSIDE RECORDS SUMMARY | 2024-02-21 19:40 | XMS_ITS | Encounter Summary ---
Author Organization [facility] Address [address] [place] [address] Phone Care Team Providers Care Transport Analyst Name Role Phone Daily Cruz MD Primary Care Provider [phone] [phone] Reason for Referral * Diagnostic Imaging (Routine) - Closed Specialty Diagnoses / Procedures Referred By Matt burk Referred To Contact Diagnoses Left foot pain Procedures XR Foot Left 3 or More Views Charissa Holley MD Phone: tel: fax: [facility] Referral ID Status Reason Start Date Expiration Date Visits Re quested Visits Authorized [id number] Closed 08/27/2019 03/07/2021 1 1 Reason for Visit * Reason Comments Follow-up Encounter Details Date Type Department Care Team (Late st Contact Info) Description 08/29/2019 2:30 PM CDT Office Visit [facility] Orthopaedic Surgery 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 Date of Surgery: 07/16/2019 The patient returns today for the left foot. She is now 6 weeks post operative. She denies fevers or chills. She reports no major issues. PHYSICAL EXAMINATION The left foot is in good condition. Swelling is minimal. The wound is clean and dry with no breakdown or signs of infection. Sensation is grossly intact to light touch. She is nontender at the surgical site. Alignment is maintained. REVIEW OF X-RAYS/STUDIES Radiographs were ordered and reviewed today by me of the left foot. AP, lateral and oblique views of the left foot show early healing of her first TMT fusion. IMPRESSION/DIAGNOSIS Post above-stated procedure doing well TREATMENT/PLAN She was placed in a short leg, weight bearing cast made of synthetic materials in clinic today. Shecan bear weight as tolerated on the left lower extremity. Precautions were discussed. The patient should ice and elevate as needed. At her next visit we will likely switch her to a boot. At the point that she comes out of the boot I will plan to get a CT scan. We have discussed all this today. The patient was encouraged to call us if any questions or concerns arise. FOLLOW UP Follow up 3 weeks Next visit: no radiographs Charissa Holley MD Equipment Operation Instructor Foot & Ankle Service [facility] Orth[facility] Dr. Charissa Holley dictating using [employer] Naturally Speaking Software. Acquisition Analyst variances may occur. * Jodee Phan ATC - 08/29/2019 2:30 PM CDTAssociated Order(s): Ortho Casting/Splinting Documentation Post-Procedure Diagnose(s): Orthopedic aftercare Ortho Casting/Splinting Documentation Date/Time: 08/29/2019 4:20 PM Performed by: Jodee Phan ATC Authorized [...] procedure: Tolerated well, no immediate complications Pt received an XL cast shoe documented in this encounter Plan of Treatment Not on file documented as of this encounter Procedures Procedure Name Priority Date/Time Associated Diagnosis Comments ORTHO CASTING/SPLINTING Routine 08/29/2019 2:30 PM CDT Orthopedic aftercare documented in this encounter Results * XR [...] it. Electronically signed by: Mina Miner M.D. us Charissa Holley MD IMG XR PROCEDURES Karen l Result * Ortho Casting/Splinting Documentation (08/29/2019 2:30 PM CDT) Jodee cMcracken ATC - 08/29/2019 2:30 PM CDT Jodee Phan ATC ? 08/29/2019 ??4:21 PM Ortho Casting/Splinting Documentation Date/Time: 08/29/2019 4:20 PM Performed by: Jodee Phan ATC Authorized [...] procedure: ??Tolerated well, no immediate complications Pt received an XL cast shoe us Charissa Holley MD [facility] Final Result documented in this encounter Visit Diagnoses Diagnosis Left foot pain- Primary Pain in soft tissues of limb Orthopedic aftercare Unspecified orthopedic aftercare Left foot pain Pain in soft tissues of limb documented in this encounter Care Teams Transport Analyst Relationship Specialty Start Date End Date Daily Cruz MD PCP - General Family Medicine 08/01/19 03/03/21 documented as of this encounter
--- OUTSIDE RECORDS SUMMARY | 2024-02-21 19:40 | XMS_ITS | Encounter Summary ---
Author Organization [facility] Address [address] [place] [address] Care Team Providers Care Deli Cook Name Role Phone Daily Cruz MD Primary Care Provider [phone] Jesusita Emmanuel MD Primary Care Provide r Daily Cruz MD Primary Care Provider [phone] Jesusita Emmanule MD Primary Care Provide r Daily Cruz MD Primary Care Provider [phone] [phone] Reason for Visit * Reason Onset Date Comments Test Results 07/11/2019 Encounter Details Date Type Department Care Team (Late st Contact Info) Description 07/11/2019 Telephone [facility] Family Medicine [address] [place] [address] Daily Cruz MD [address] [place] [address] [address] [place] [address] Test Results Social History Tobacco [...] on file Legal Sex Female 3:37 PM 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 documented in this encounter Plan of Treatment Not on file documented as of this encounter Visit Diagnoses Not on filedocumented in this encounter Care Teams Deli Cook Relationship Specialty Start Date End Date Daily Cruz MD PCP - General Family Medicine 07/09/19 07/11/19 Jesusita Emmanuel MD PCP - General 07/12/19 07/14/19 Daily Cruz MD PCP - General Family Medicine 07/15/19 07/15/19 Jesusita Emmanuel MD PCP - General 07/16/19 07/31/19 Daily Cruz MD PCP - General Family Medicine 08/01/19 03/03/21 documented as of this encounter
--- OUTSIDE RECORDS SUMMARY | 2024-02-21 19:40 | XMS_ITS | Encounter Summary ---
Author Organization [facility] Address [address] [place] [address] Care Team Providers Care Cemetery Vault Installer Name Role Phone Daily Cruz MD Primary Care Provider [phone] Reason for Referral * Diagnostic Imaging (Emergency) - Closed Specialty Diagnoses / Procedures Referred By Matt burk Referred To Contact Diagnoses Lower extremity edema Elevated sedimentation rate Leukocytosis, unspecified type Abdominal pain History of kidney stones Procedures CT Abdomen Pelvis WO Contrast Kassi Garcia PA Phone: tel: fax: [facility] [address] [place] [phone] Referral ID Status Reason Start Date Expiration Date Visits Re quested Visits Authorized [id number] Closed 08/13/2019 02/21/2021 1 1 Reason for Visit * Reason Comments Leg Swelling R leg swelling Encounter Details Date Type Department Care Team (Late st Contact Info) Description 08/08/2019 10:45 AM CDT Office Visit 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 Gender Identity Female 03/02/2020 4:27 PM QUALITY ASSURANCE SUPERVISOR CHASSIS Sexual Orientation Straight 07/10/2019 11 :13 PM CDT documented as of this encounter Last Filed Vital Signs Vital Sign Reading Time Taken Comments Blood Pressure 118/76 08/08/2019 10:51 AM CDT Pulse 77 08/08/2019 10:51 AM CDT Temperature 36.5 ??C (97.7 ??F) 08/08/2019 1 0:51 AM CDT Respiratory Rate 19 08/08/2019 10:5 1 AM CDT Oxygen Saturation 97% 08/08/2019 10: 51 AM CDT Inhaled Oxygen Concentration - - Weight 127.1 kg (280 lb 3.2 oz) 020 10:51 AM CDT Height 170.2 cm (5' 7 ) 08/08/2019 10:5 1 AM CDT Body Mass Index 43.89 08/08/2019 10:51 AM CDT documented in this encounter Ordered Prescriptions Prescription Sig Dispense Quantity Refills Last Filled Start Date End Date furosemide (LASIX) 20 mg tablet Take 1 tablet (20 mg total) by mouth daily 30 tablet 08/08/2019 08/08/2019 documented in this encounter Progress Notes * Kassi Garcia PA - 08/08/2019 10:45 AM CDT Images from the original note were not included. Visit Date: 08/08/2019 Patient ID: Jud Thomas is a 28 y.o. female. Chief Complaint(s): Leg Swelling (R leg swelling ) HPI: Patient here today with c/o leg swelling. She did have foot surgery on the left foot July 16, 2019 for bunionectomy and foot repair of deformities. She c/o bilateral lower leg swelling. She states elevation does help. Went and had cast changed on the left leg yesterday and initially felt better, lj was swelling and pushing on foot incisions and causing numbness in the foot. Today, swelling is slightly improved. She has been working on trying to lower her cholesterol and elevated SED rate with diet/exercise, following Mediterranean diet. She feels good, but concerned about the swelling. She did have bilateral venous dopplers done 07/11/2019 that were normal, no DVT. CTA of the chest also done and was negative for PE. Current Outpatient Medications Medication Sig Dispense Refill ??? albuterol HFA (Ventolin HFA) 90 mcg/actuation inhaler Inhale 2 puffs every 6 (six) hours as needed ??? aspirin 325 mg enteric coated tablet Take 1 tablet (325 mg total) by mouth daily 30 tablet 0 ??? levonorgestreL (KYLEENA) IUD 1 each by intrauterine route once ??? furosemide (LASIX) 20 mg tablet Take 1 tablet (20 mg total) by mouth daily 30 tablet 0 No current facility-administered medications for this visit. Allergies as of 08/08/2019 - Reviewed 08/08/2019 Allergen Reaction Noted ??? Acetazolamide Swollen tongue 01/04/2016 ??? Dihydroergotamine Shortness of breath 10/16/2015 ??? Nickel Hives, Itching, Rash, and Swelling 09/20/2017 ??? Topiramate Swelling and Other (See comments) 04/18/2016 ??? Hydrocodone-acetaminophen Nausea And Vomiting 09/11/2017 ??? Lamotrigine Other (See comments) 09/20/2017 ??? Levetiracetam Other (See comments) 09/20/2017 Review of Systems: Review of Systems Constitutional: Negative for chills, fatigue and fever. Respiratory: Negative for cough and shortness of breath. Cardiovascular: Positive for leg swelling. Negative for chest pain. Gastrointestinal: Negative for diarrhea, nausea and vomiting. Neurological: Negative for dizziness and headaches. Physical Examination: Vitals: 08/08/19 1051 BP: 118/76 BP Location: Right arm Patient Position: Sitting Pulse: 77 Resp: 19 Temp: 36.5 ??C (97.7 ??F) TempSrc: Temporal SpO2: 97% Weight: 127.1 kg (280 lb 3.2 oz) Height: 170.2 cm (5' 7 ) Physical Exam Vitals signs and nursing note reviewed. Constitutional: Appearance: Normal appearance. She is well-developed. HENT: Head: Normocephalic and atraumatic. Right Ear: External ear normal. Left Ear: External ear normal. Eyes: Conjunctiva/sclera: Conjunctivae normal. Pupils: Pupils are equal, round, and reactive to light. Cardiovascular: Rate and Rhythm: Normal rate and regular rhythm. Pulmonary: Effort: Pulmonary effort is normal. Breath sounds: Normal breath sounds. No wheezing. Musculoskeletal: Right lower leg: Edema present. Left lower leg: Edema present. Skin: General: Skin is warm and dry. Findings: No rash. Neurological: Mental Status: She is alert and oriented to person, place, and time. Assessment/Plan Diagnoses and all orders for this visit: Lower extremity edema (R60.0) (Primary) Comments: Try Lasix Orders: - CT Abdomen Pelvis WO Contrast; Future Elevated sedimentation rate (R70.0) - CT Abdomen Pelvis WO Contrast; Future Leukocytosis, unspecified type (D72.829) - CT Abdomen Pelvis WO Contrast; Future Abdominal pain (R10.9) - CT Abdomen Pelvis WO Contrast; Future History of kidney stones (Z87.442) - CT Abdomen Pelvis WO Contrast; Future Patient ended up going to [place] [facility] on 08/09/2019 - with swelling. Not voiding often despite diuretic use. Records reviewed. Still not voiding well. Worried about her kidneys. H/o kidney stones. Will get CT set up. Return in about 1 week (around 08/15/2019), or if symptoms worsen or fail to improve, for Follow Up. Kassi Garcia PA-C documented in this encounter Miscellaneous Notes * Addendum Note - Kassi Garcia PA - 08/08/2019 10:45 AM CDTAddended by: KASSI GARCIA on: 08/13/2019 12:31 PM Modules accepted: Orders documented in this encounter Plan of Treatment Not on file documented as of this encounter Results * CT Abdomen Pelvis WO Contrast (08/13/2019 2:49 PM CDT) Anatomical Region Laterality Modality Body N/A Computed Tomogra phy 08/13/2019 3:07 PM CDT Narrative 08/13/2019 3:20 PM CDT Patient Name: JUD THOMAS ?Ordering Dr: Kassi Garcia PA-C ?? D.O.B: 1990 ? Exam Date: 08/13/19 ?? 1449 ?? Age: 28 ?Sex: Female ? MR#: [id number] ?? Loc: ? RADIOLOGY REPORT ?? Order #[id number] ?? CT Scan ? CT Abd/Pelvis WO [...] 3:20 PM ?? T: ? Report ID: [id number] ?? Reading Location: ??[id number] ? REPORT ELECTRONICALLY SIGNED IN OTHER VENDOR SYSTEM ?? Resulting Agency Comment O Procedure Note Nicholas Stewart MD - 08/13/2019 Patient Name: WILLIAMJUDHAROON Frankel Dr: Kassi Garcia PA-CO.B: 1990 Exam Date: 08/13/19 144 Age: 28 Sex: Female MR#: [id number] Loc: RADIOLOGY REPORT Order #[id number] CT Scan CT Abd/Pelvis WO IV Contrast [...] Nicholas Stewart M.D. CN T: Report ID: [id number] Reading Location: [place] [address] REPORT ELECTRONICALLY SIGNED IN OTHER VENDOR SYSTEM Kassi MOJICA IMG CT PROCEDURES Final Result documented in this encounter Visit Diagnoses Diagnosis Lower extremity edema- Primary Edema Elevated sedimentation rate Leukocytosis, unspecified type Abdominal pain Abdominal pain, unspecified site History of kidney stones Lower extremity edema Edema Elevated sedimentation rate Leukocytosis, unspecified type Abdominal pain Abdominal pain, unspecified site History of kidney stones documented in this encounter Care Teams Cemetery Vault Installer Relationship Specialty Start Date End Date Daily Cruz MD PCP - General Family Medicine 08/01/19 03/03/21 documented as of this encounter
--- OUTSIDE RECORDS SUMMARY | 2024-02-21 19:40 | XMS_ITS | Encounter Summary ---
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 Gender Identity Female 03/02/2020 4:27 PM SUPERVISOR OPERATIONS Sexual Orientation Straight 07/10/2019 11 :13 PM CDT documented as of this encounter Medications at Time of Discharge acetaminophen-as pirin-caffeine (EXCEDRIN MIGRAINE) 250-250-65 mg per tablet Take 1 tablet by mouth every 4 (four) hours as needed 0 albuterol HFA (PROVENTIL HFA,VENTOLIN HFA,PROAIR HFA) 90 mcg/actuation inhaler Inhale 2 puffs every 6 (six) hours as needed 2 HYDROcodone-acet aminophen (NORCO) 5-325 mg per tabletIndication s:Pain Take 1-2 every 4-6 hours as needed for pain 25 tablet 07/15/2019 0 levonorgestreL (KYLEENA) IUD 1 each by intrauterine route once 3 documented as of this encounter Plan of Treatment Not on file documented as of this encounter Procedures Procedure Name Priority Date/Time Associated Diagnosis Comments CTA CHEST W IV CONTRAST - PE 07/12/2019 12:00 AM CDT documented in this encounter Results * CTA Chest W IV Contrast - PE (07/12/2019 12:00 AM CDT) Anatomical Region Laterality Modality Body N/A Computed Tomogra phy 07/12/2019 12:5 6 PM CDT Narrative 07/12/2019 12:57 PM CDT Patient Name: JUD THOMAS ?Ordering Dr: Daily Cruz MD ?? D.O.B: 1990 ? Exam Date: 07/12/19 ?? 0000 ?? Age: 28 ?Sex: Female ? MR#: [id number] ?? Loc: ? RADIOLOGY REPORT ?? Order #[id number] ?? CT Scan ? CTA Chest W IV Contrast - PE ? Signed ?? EXAM DESCRIPTION: ?? CTA Chest W IV Contrast - PE ? REASON FOR STUDY: ?? Acute chest pain with shortness of breath ? TECHNIQUE: ??CT angiogram of the chest performed with intravenous contrast ?? using helical scanning technique with dynamic intravenous contrast injection. ?? Reconstructed coronal and sagittal MPR images reviewed. All images stored on ?? PACS. ??3D MIP images rendered on scanning unit and reviewed at time of ?? interpretation. Automated exposure control was used as a dose optimization ?? technique for this examination. ? CONTRAST TYPE/DOSE: ?? PATIENT RECIEVED 100CC OPTIRAY 350 INJECTED INTO RAC ? COMPARISON: ?? None ? FINDINGS: ? VASCULATURE: ??No identified pulmonary emboli. ? LUNGS: ??No nodules or masses. No pneumonia. ? PLEURA: ??No effusion. No pneumothorax. ? MEDIASTINUM/ANTONIO: ??No identified masses or abnormal nodes. ? HEART: ??Heart size is normal with no pericardial effusion. ? AXILLA: ??No adenopathy. ? CHEST WALL: ??No masses. ??No subcutaneous air. ? HARDWARE/LINES/TUBES: ??None. ? UPPER ABDOMEN: ??No significant abnormality. ? MUSCULOSKELETAL: ??No significant abnormality. ? OTHER: ??No significant abnormality. ? IMPRESSION: ?? No evidence of pulmonary embolism. Normal CT of the chest. ? THIS IS AN ELECTRONICALLY VERIFIED FINAL REPORT ?? 07/12/2019 12:57 PM - Electronically signed by Alejandro Pitts M.D. ?? Alejandro Pitts M.D. ? [place] ?? D: ??07/12/2019 12:57 PM ?? T: ? Report ID: [id number] ?? Reading Location: ??[id number] ? REPORT ELECTRONICALLY SIGNED IN OTHER VENDOR SYSTEM ?? Resulting Agency Comment O Procedure Note Alejandro Pitts MD - 07/12/2019 Patient Name: JUD THOMAS Dr: Daily Cruz MD D.O.B: 1990 Exam Date: 07/12/19 0000 Age: 28 Sex: Female MR#: [id number] Loc: RADIOLOGY REPORT Order #[id number] CT Scan CTA Chest W IV Contrast - PE Signed EXAM DESCRIPTION: CTA Chest W IV Contrast - PE REASON FOR STUDY: Acute chest pain with shortness of breath TECHNIQUE: CT angiogram of the chest performed with intravenous contrast using helical scanning technique with dynamic intravenous contrastinjection. Reconstructed coronal and sagittal MPR images reviewed. All images storedon PACS. 3D MIP images rendered on scanning unit and reviewed at time of interpretation. Automated exposure control was used as a doseoptimization technique for this examination. CONTRAST TYPE/DOSE: PATIENT RECIEVED 100CC OPTIRAY 350 INJECTED INTORAC COMPARISON: None FINDINGS: VASCULATURE: No identified pulmonary emboli. LUNGS: No nodules or masses. No pneumonia. PLEURA: No effusion. No pneumothorax. MEDIASTINUM/ANTONIO: No identified masses or abnormal nodes. HEART: Heart size is normal with no pericardial effusion. AXILLA: No adenopathy. CHEST WALL: No masses. No subcutaneous air. HARDWARE/LINES/TUBES: None. UPPER ABDOMEN: No significant abnormality. MUSCULOSKELETAL: No significant abnormality. OTHER: No significant abnormality. IMPRESSION: No evidence of pulmonary embolism. Normal CT of the chest. THIS IS AN ELECTRONICALLY VERIFIED FINAL REPORT 07/12/2019 12:57 PM - Electronically signed by Alejandro TELLES T: Report ID: [id number] Reading Location: [id number] REPORT ELECTRONICALLY SIGNED IN OTHER VENDOR SYSTEM us Daily Cruz MD IMG CT PROCEDURES Final R esult documented in this encounter Visit Diagnoses Not on filedocumented in this encounter Care Teams Automatic Pattern Edger Relationship Specialty Start Date End Date Jesusita Emmanuel MD PCP - General 07/12/19 07/14/19 documented as of this encounter
--- OUTSIDE RECORDS SUMMARY | 2024-02-21 19:40 | XMS_ITS | Encounter Summary ---
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 Gender Identity Female 03/02/2020 4:27 PM SPORTS BOOK WRITER Sexual Orientation Straight 07/10/2019 11 :13 PM CDT documented as of this encounter Medications at Time of Discharge acetaminophen-as pirin-caffeine (EXCEDRIN MIGRAINE) 250-250-65 mg per tablet Take 1 tablet by mouth every 4 (four) hours as needed 0 albuterol HFA (PROVENTIL HFA,VENTOLIN HFA,PROAIR HFA) 90 mcg/actuation inhaler Inhale 2 puffs every 6 (six) hours as needed 2 levonorgestreL (KYLEENA) IUD 1 each by intrauterine route once 3 documented as of this encounter Plan of Treatment Not on file documented as of this encounter Procedures Procedure Name Priority Date/Time Associated Diagnosis Comments US VEIN DUPLEX LOWER EXTREMITY BILATERAL COMPLETE 07/11/2019 3:30 PM CDT documented in this encounter Results * US Vein Duplex Lower Extremity Bilateral Complete (07/11/2019 3:30 PM CDT) Anatomical Region Laterality Modality Vascular Bilateral Ultrasound 07/12/2019 2:15 PM CDT Narrative 07/12/2019 3:27 PM CDT ? Patient Name: WILLIAM,JUD SALAS ? MR#: [id number] ?? [id number] ? Status: REG CLI ? D.O.B: 1990 Age: ??28 ?Sex: Female ? ADM/SER Dt: 05/28/20 ?Disch Dt: ? LOC: H.CVU ? Ordering Sabine: Daily De Santiago MD ? Order #[id number] ? Venous Dop/Duplex Both Legs ?? Eros Juan MD ? Signed ?? DATE OF SERVICE: ?? 07/11/2019 ? REASON FOR EXAM: ??Pain and swelling. ? FINDINGS: ??Veins throughout right lower extremity show spontaneous and phasic flow with normal augmentation. ??They are competent and compressible. ? COMMENTS ON THE LEFT: ??Veins throughout left lower extremity show spontaneous and phasic flow with normal augmentation. ??They are competent and compressible. ? OVERALL IMPRESSION: ??Negative for deep vein thrombosis, bilateral lower extremities. ? NTS ? Job: [id number] ? Dictated By: Eros Juan MD ?? Dictated For: Eros ??MD Drake ? <Electronically signed by Eros Juan MD> ? 07/14/19 0952 ?? Resulting Agency Comment O Procedure Note Eros Juan MD - 07/14/2019 Patient Name: JUD THOMAS #: [id number] Status: REG CLI D.O.B: 1990 Age: 28Sex: Female ADM/SER Dt: 07/11/19 Disch Dt:LOC: .U Ordering Phy: Daily De Santiago MD Order #[id number] Venous Dop/Duplex Both Legs Eros Juan MD Signed DATE OF SERVICE: 07/11/2019 REASON FOR EXAM: Pain and swelling. FINDINGS: Veins throughout right lower extremity show spontaneous andphasic flow with normal augmentation. They are competent and compressible. COMMENTS ON THE LEFT: Veins throughout left lower extremity showspontaneous and phasic flow with normal augmentation. They are competent and compressible. OVERALL IMPRESSION: Negative for deep vein thrombosis, bilateral lowerextremities. NTS Job: [id number] Dictated By: Eros Juan MD Dictated For: Eros Juan MD <Electronically signed by Eros Juan MD> 07/14/19 0952 us Daily Cruz MD IMG US PROCEDURES Final R esult documented in this encounter Visit Diagnoses Not on filedocumented in this encounter Care Teams Hunting Sales Associate Relationship Specialty Start Date End Date Daily Cruz MD PCP - General Family Medicine 07/09/19 07/11/19 documented as of this encounter
--- OUTSIDE RECORDS SUMMARY | 2024-02-21 19:40 | XMS_ITS | Encounter Summary ---
Author Organization [facility] Medical Group Address [address] [place] [address] Care Team Providers Care City Tax Auditor Name Role Phone Daily Cruz MD Primary Care Provider [phone] [phone] Reason for Visit * Reason Comments Follow-up 3 week follow up Encounter Details Date Type Department Care Team (Late st Contact Info) Description 08/01/2019 1:00 PM CDT Telemedicine [facility] Medical Group Family Medicine [address] [place] [address] [address] [place] [id number] Daily Cruz MD [address] [place] [id number] Elevated sedimentation rate (Primary Dx); Arthralgia, unspecified joint Social History Tobacco Use Types Packs/Day Years [...] on file 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 Gender Identity Female 03/02/2020 4:27 PM SITE SUPERVISOR Sexual Orientation Straight 07/10/2019 11 :13 PM CDT documented as of this encounter Last Filed Vital Signs Vital Sign Reading Time Taken Comments Blood Pressure - - Pulse - - Temperature - - Respiratory Rate - - Oxygen Saturation - - Inhaled Oxygen Concentration - - Weight 124.7 kg (275 lb) 08/01/2019 12:00 PM CDT verbal Height 170.2 cm (5' 7 ) 08/01/2019 12:00 PM CDT Body Mass Index 43.07 08/01/2019 12:00 PM CDT documented in this encounter Patient Instructions * Patient Instructions* Daily Cruz MD - 08/01/2019 1:00 PM CDT Patient Education Weight Management DOLL DRESSER: Why it is important to manage your weight: Being overweight increases your risk of health conditions such as heart disease, high blood pressure, type 2 diabetes, and certain types of cancer. It can also increase your risk for osteoarthritis, sleep apnea, and other respiratory problems. Aim for a slow, steady weight loss. Even a small amount of weight loss can lower your risk of health problems. How to lose weight safely: A safe and healthy way to lose weight is to eat fewer calories and get regular exercise. You can lose up about 1 pound a week by decreasing the number of calories you eat by 500 calories each day. You can decrease calories by eating smaller portion sizes or by cutting outhigh-calorie foods. Read labels to find out how many calories are in the foods you eat. You can also burn calories with exercise such as walking, swimming, or biking. You will be more likely to keep weight off if you make these changes part of your lifestyle. Healthy meal plan for weight management: A healthy meal plan includes a variety of foods, contains fewer calories, and helps you stay healthy. A healthy meal plan includes the following: ?? Eat whole-grain foods more often. A healthy meal plan should contain fiber. Fiber is the part ofgrains, fruits, and vegetables that is not broken down by your body. Whole-grain foods are healthy and provide extra fiber in your diet. Some examples of whole-grain foods are whole-wheat breads and pastas, oatmeal, brown rice, and bulgur. ?? Eat a variety of vegetables every day. Include dark, leafy greens such as spinach, kale, collardgreens, and mustard greens. Eat yellow and orange vegetables such as carrots, sweet potatoes, and winter squash. ?? Eat a variety of fruits every day. Choose fresh or canned fruit (canned in its own juice or light syrup) instead of juice. Fruit juice has very little or no fiber. ?? Eat low-fat dairy foods. Drink fat-free (skim) milk or 1% milk. Eat fat-free yogurt and low-fat cottage cheese. Try low-fat cheeses such as mozzarella and other reduced-fat cheeses. ?? Choose meat and other protein foods that are low in fat. Choose beans or other legumes such as split peas or lentils. Choose fish, skinless poultry (chicken or turkey), or lean cuts of red meat (beef or pork). Before you cook meat or poultry, cut off any visible fat. ?? Use less fat and oil. Try baking foods instead of frying them. Add less fat, such as margarine, sour cream, regular salad dressing and mayonnaise to foods. Eat fewer high-fat foods. Some examples of high-fat foods include german fries, doughnuts, ice cream, and cakes. ?? Eat fewer sweets. Limit foods and drinks that are high in sugar. This includes candy, cookies, regular soda, and sweetened drinks. Ways to decrease calories: ?? Eat smaller portions. ?? Use a small plate with smaller servings. ?? Do not eat second helpings. ?? When you eat at a restaurant, ask for a box and place half of your meal in the box before you eat. ?? Share an entr??e with someone else. ?? Replace high-calorie snacks with healthy, low-calorie snacks. ?? Choose fresh fruit, vegetables, fat-free rice cakes, or air-popped popcorn instead of potato chips, nuts, or chocolate. ?? Choose water or calorie-free drinks instead of soda or sweetened drinks. ?? Do not shop for groceries when you are hungry. You may be more likely to make unhealthy food choices. Take a grocery list of healthy foods and shop after you have eaten. ?? Eat regular meals. Do not skip meals. Skipping meals can lead to overeating later in the day. This can make it harder for you to lose weight. Eat a healthy snack in place of a meal if you do not have time to eat a regular meal. Talk with a dietitian to help you create a meal plan and schedule that is right for you. Exercise: Exercise at least 30 minutes per day on most days of the week. Some examples of exercise include walking, biking, dancing, and swimming. You can also fit in more physical activity by takingthe stairs instead of the elevator or parking farther away from stores. Ask your healthcare provider about the best exercise plan for you. Other things to consider as you try to lose weight: ?? Be aware of situations that may give you the urge to overeat, such as eating while watching television. Find ways to avoid these situations. For example, read a book, go for a walk, or do crafts. ?? Meet with a weight loss support group or friends who are also trying to lose weight. This may help you stay motivated to continue working on your weight loss goals. ?? 2017 [employer] Information is for End User's use only and may not be sold, redistributed or otherwise used for commercial purposes. All illustrations and images included in CareNotes?? are the copyrighted property of [employer] or [employer]. The above information is an linen aide only. It is not intended as medical advice for individual conditions or treatments. Talk to your doctor, nurse or pharmacist before following any medical regimen to see if it is safe and effective for you. documented in this encounter Progress Notes * Daily Cruz MD - 08/01/2019 1:00 PM CDT Images from the original note were not included. Patient ID: Jud Thomas is a 29 y.o. female. Visit Date: 08/01/2019 This was a telemedicine visit with Jud Thomas alone which took place via real-time video connection with [employer]. During the visit, I was located at home and the patient was located at home. The patient visit started at 14:55 and ended at 15:20. Total encounter time was 25 minutes, which includes time spent today on pre charting, the patient encounter, and post charting. The patient has been informed that the visit may not be secure and acknowledged the information. I have explained the option of participating in a telephone or video visit during the COVID-19 public [facility] emergency to the patient. After being given an opportunity to ask questions about and discuss this type of visit, the patient verbally consented to proceeding with the telephone/video visit.The patient understands that this service replaces an office visit and they may be billed and/or responsible for any applicable copayments. Daily Cruz MD Chief Complaint Elevated ESR arthralgia HPI Patient c/o diffuse arthralgias. Has h/o elevated ESR. Recent labs normal and CT chest normal Current Outpatient Medications: ??? albuterol HFA (Ventolin HFA) 90 mcg/actuation inhaler, Inhale 2 puffs every 6 (six) hours as needed, Disp: , Rfl: ??? aspirin 325 mg enteric coated tablet, Take 1 tablet (325 mg total) by mouth daily, Disp: 30 tablet, Rfl: 0 ??? levonorgestreL (KYLEENA) IUD, 1 each by intrauterine route once , Disp: , Rfl: ??? hydroCHLOROthiazide (HYDRODIURIL) 25 mg tablet, TAKE 1 TABLET BY MOUTH EVERY DAY, Disp: 30 tablet, Rfl: 4 ??? methylPREDNISolone (MEDROL DOSEPACK) 4 mg Dosepack, [...] Positive for arthralgias. Negative for back pain. Neurological: Negative for dizziness and headaches. Hematological: Does not bruise/bleed easily. Psychiatric/Behavioral: Negative for behavioral problems and confusion. Ht 170.2 cm (5' 7 ) Wt 124.7 kg (275 lb) Comment: verbal LMP 07/05/2019 (Approximate) BMI 43.07 kg/m?? Body mass index is [...] Affect: Mood normal. Behavior: Behavior normal. Results for JUD THOMAS ( ) as of 08/01/2019 12:28 Ref. Range 07/12/2019 13:14 Sodium Latest Ref Range: 135 - 145 mmol/L 136 Potassium Lvl Latest Ref Range: 3.3 - 5.1 mmol/L 4.5 Chloride Latest Ref Range: 96 - 108 mmol/L 101 CO2 Latest Ref Range: 22 - 32 mmol/L 25 Anion gap Latest Ref Range: 7 - 16 10 BUN Latest Ref Range: 8 - 25 mg/dL 13 Creatinine Latest Ref Range: 0.5 - 1.1 mg/dL 0.7 Glucose Latest Ref Range: 70 - 100 mg/dL 85 Calcium Latest Ref Range: 8.6 - 10.3 mg/dL 9.6 Protein, pl Latest Ref Range: 6.4 - 8.3 g/dL 7.7 Albumin Latest Ref Range: 3.5 - 5.0 g/dL 4.1 Bilirubin, total Latest Ref Range: 0.0 - 1.2 mg/dL <0.2 Alk phos Latest Ref Range: 35 - 104 U/L 118 (H) AST Latest Ref Range: 0 - 32 U/L 13 ALT Latest Ref Range: 0 - 33 U/L 13 Alb/glob ratio Latest Ref Range: 1.1 - 1.8 1.1 Chol/HDL ratio Unknown 4.1 Cholesterol Latest Ref Range: 0 - 199 mg/dL 195 CK Latest Ref Range: 20 - 180 U/L 66 CK MB Latest Ref Range: 0.0 - 2.9 ng/mL <1.0 HDL Cholesterol Latest Units: mg/dL 48 LDL Cholesterol Calc Latest Ref Range: 0 - 129 mg/dL 130 (H) Triglycerides Latest Ref Range: 0 - 149 mg/dL 87 Troponin I Latest Ref Range: 0.000 - 0.300 ng/mL <0.300 TSH Latest Ref Range: 0.27 - 4.20 uIU/mL 2.890 WBC Latest Ref Range: 3.8 - 9.9 X10 3/ul 9.6 RBC Latest Ref Range: 3.90 - 5.20 x10 6/ul 4.59 Hgb Latest Ref Range: 11.9 - 15.5 g/dL 13.3 Hct Latest Ref Range: 35.6 - 45.5 % 41.1 MCV Latest Ref Range: 81.3 - 96.4 fl 89.5 MCH Latest Ref Range: 27.1 - 33.3 pg 29.0 Patient Name: JUD THOMAS Ordering Dr: Daily Cruz MD DSydneyO.B: 1990 Exam Date: 07/12/19 0000 Age: 28 Sex: Female MR#: [id number] Loc: ?? RADIOLOGY REPORT Order #[id number] CT Scan CTA Chest W IV Contrast - PE Signed EXAM DESCRIPTION: CTA Chest W IV Contrast - PE REASON FOR STUDY: Acute chest pain with shortness of breath TECHNIQUE: CT angiogram of the chest performed with intravenous contrast using helical scanning technique with dynamic intravenous contrast injection. Reconstructed coronal and sagittal MPR images reviewed. All images stored on PACS. 3D MIP images rendered on scanning unit and reviewed at time of interpretation. Automated exposure control was used as a dose optimization technique for this examination. CONTRAST TYPE/DOSE: PATIENT RECIEVED 100CC OPTIRAY 350 INJECTED INTO RAC COMPARISON: None FINDINGS: VASCULATURE: No identified pulmonary [...] pulmonary embolism. Normal CT of the chest. Diagnoses and all orders for this visit: Elevated sedimentation rate (Primary) Assessment & Plan: Needs further work-up Order ESR and crp Orders: - Erythrocyte sedimentation rate; Future - CRP (acute phase); Future Arthralgia, unspecified joint Assessment & Plan: Needs further w/u Order ESR and crp Orders: - Erythrocyte sedimentation rate; Future - CRP (acute phase); Future Daily MD Nancy documented in this encounter Miscellaneous Notes * Assessment & Plan Note - Daily Cruz MD - 09/25/2019 5:34 AM CDT Associated Problem(s): Elevated sedimentation rate Needs further work-up Order ESR and crp * Assessment & Plan Note - Daily Cruz MD - 09/25/2019 5:33 AM CDT Associated Problem(s): Arthralgia Needs further w/u Order ESR and crp documented in this encounter Plan of Treatment Scheduled Orders Name Type Priority Associated Diagnoses Orde r Schedule Erythrocyte sedimentation rate Lab Routine Elevated sedimentation rate Arthralgia, unspecified joint Expected: 08/01/2019, Expires: 07/31/2020 CRP (acute phase) Lab Routine Elevated sedimentation rate Arthralgia, unspecified joint Expected: 08/01/2019, Expires: 07/31/2020 documented as of this encounter Visit Diagnoses Diagnosis Elevated sedimentation rate- Primary Arthralgia, unspecified joint documented in this encounter Discontinued Medications Medication Sig Discontinue Reason Start Date End Da te ketorolac (TORADOL) 10 mg tablet Take 1 tablet every 6 hours until gone Therapy completed 07/12/2019 08/01/2019 promethazine (PHENERGAN) 12.5 mg tablet Take 1 tablet (12.5 mg total) by mouth every 6 (six) hours as needed for nausea or vomiting Therapy completed 07/12/2019 08/01/2019 senna (SENOKOT) 8.6 mg tablet Take 1 tablet by mouth daily Therapy completed 07/12/2019 08/01/2019 traMADoL (ULTRAM) 50 mg tablet Take 1 tablet (50 mg total) by mouth every 6 (six) hours as needed for pain Therapy completed 07/16/2019 08/01/2019 documented as of this encounter Care Teams City Tax Auditor Relationship Specialty Start Date End Date Daily Cruz MD PCP - General Family Medicine 08/01/19 03/03/21 documented as of this encounter
--- OUTSIDE RECORDS SUMMARY | 2024-02-21 19:40 | XMS_ITS | Encounter Summary ---
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 Gender Identity Female 03/02/2020 4:27 PM EMERY WHEEL MOLDER Sexual Orientation Straight 07/10/2019 11 :13 PM CDT documented as of this encounter Plan of Treatment Not on file documented as of this encounter Procedures Procedure Name Priority Date/Time Associated Diagnosis Comments SCAN - RADIOLOGY/IMAGING 08/10/2019 documented in this encounter Results * SCAN - RADIOLOGY/IMAGING (08/10/2019) Anatomical Region Laterality Modality Other us Daily Cruz MD Edited Re sult - Final documented in this encounter Visit Diagnoses Not on filedocumented in this encounter Care Teams Cardiology Associate Relationship Specialty Start Date End Date Daily Cruz MD PCP - General Family Medicine 08/01/19 03/03/21 documented as of this encounter
--- OUTSIDE RECORDS SUMMARY | 2024-02-21 19:40 | XMS_ITS | Encounter Summary ---
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
--- OUTSIDE RECORDS SUMMARY | 2024-02-21 19:41 | XMS_ITS | Encounter Summary ---
Author Organization [facility] Address [address] [place] [address] Phone Care Team Providers Care Supervisor Advice Name Role Phone Jesusita Emmanuel MD Primary Care Provide r Encounter Details Date Type Department Care Team (Late st Contact Info) Description 05/07/2019 Telephone [facility] Orthopaedic Surgery [address] 1st [address] [place] [address] Charissa Holley MD 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 A follow up was scheduled. ----- Message from Charissa Holley MD sent at 05/06/2019 2:34 PM CDT ----- Please call the patient and let her know that there is some healing, but not full healing. The radiologist describes the bone healing to be 20%. We usually think of 30% as essential for a stable, pain free fusion. It is very possible that the fact that this is not completely healed is contributing to the pain. So. . . If we did something surgical, we would have to consider revision of the fusion with bone grafting. I would take out the current plate and screws and then revise with new hardware. She would be 6 weeks NWB in a cast and 6 weeks in a boot. I don't think that hardware removal alone will solve the problem. We can't schedule anything right now, but we can make an appointment to discuss when weare back to normal clinics. (Feel free to make her an appointment in the future). Thanks. melody ----- Message ----- From: Interface, Radiology Results In Sent: 04/30/2019 4:15 PM CDT To: Charissa Holley MD documented in this encounter Plan of Treatment Not on file documented as of this encounter Visit Diagnoses Not on filedocumented in this encounter Care Teams Supervisor Advice Relationship Specialty Start Date End Date Jesusita Emmanuel MD PCP - General 06/21/17 07/08/19 documented as of this encounter
--- OUTSIDE RECORDS SUMMARY | 2024-02-21 19:41 | XMS_ITS | Encounter Summary ---
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
--- OUTSIDE RECORDS SUMMARY | 2024-02-21 19:41 | XMS_ITS | Encounter Summary ---
Author Organization [facility] Facility Care Team Providers Care Optical Instrument Assembly Supervisor Name Role Phone Jesusita Emmanuel MD Primary Care Provide r Encounter Details Date Type Department Care Team (Latest Contact Info) Description 04/22/2019 Travel Social History Tobacco Use Types Packs/Day Years Used Date Smoking Tobacco: Never Smokeless Tobacco: Never Alcohol Use Standard Drinks/Week Comments Yes 0 (1 standard drink = 0.6 oz pur e alcohol) RARE Comments Unknown Sex and Gender Information Value Date Recorded Sex Assigned at Not on file Legal Sex Female 3:37 PM NUTRITION DIRECTOR Gender Identity Female 03/02/2020 4:27 PM NUTRITION DIRECTOR Sexual Orientation Straight 07/10/2019 11 :13 PM CDT documented as of this encounter Plan of Treatment Not on file documented as of this encounter Visit Diagnoses Not on filedocumented in this encounter Care Teams Optical Instrument Assembly Supervisor Relationship Specialty Start Date End Date Jesusita Emmanuel MD PCP - General 06/21/17 07/08/19 documented as of this encounter
--- OUTSIDE RECORDS SUMMARY | 2024-02-21 19:41 | XMS_ITS | Encounter Summary ---
Author Organization [facility] Address [address] [place] [address] Phone Care Team Providers Care Aircraft Motor Mechanic Name Role Phone Daily Cruz MD Primary Care Provider [phone] Encounter Details Date Type Department Care Team (Late st Contact Info) Description 07/09/2019 Telephone [facility] Orthopaedic Surgery [address] [facility] 1st [address] [place] [address] Charissa Holley MD [address] [facility] [address] [place], [place] [id number] Social History Tobacco Use Types Packs/Day Years Used Date Smoking Tobacco: Never Smokeless Tobacco: Never Alcohol Use Standard Drinks/Week Comments Yes 0 (1 standard drink = 0.6 oz pur e alcohol) RARE Comments Unknown Sex and Gender Information Value Date Recorded Sex Assigned at Not on file Legal Sex Female 3:37 PM PSYCH COORDINATOR Gender Identity Female 03/02/2020 4:27 PM PSYCH COORDINATOR Sexual Orientation Straight 07/10/2019 11 :13 PM CDT documented as of this encounter Miscellaneous Notes * Telephone Encounter - Marylou Duque RMA - 07/09/2019 10:37 AM CDT Patient called stating over the weekend she took a long trip by car with her father. During that trip she noticed that both her LE started swelling from her thighs down. She later elevated her LE andthat seemed to help, this went on Monday and Monday while being in the car. She then went to a race on Monday evening and started having shortness of breath and chest pains with a scratchy throat. The shortness of breathe and chest pains came and went twice. She went home that night and went to sleep and felt better the next day when she woke up. She is calling us to inform us but also ask what she should do. I recommended calling her PCP for further work up and possible COVID testing. She states he old PCP does not take her insurance any more so the office told her to send her a portal message and see what type of advice she can give her from that. She is doing that now. I did explain to her that if she does not hear anything soon she should seek other treatment elsewhere so that we can figure out what is going on. She will keep us in the loop documented in this encounter Plan of Treatment Not on file documented as of this encounter Visit Diagnoses Not on filedocumented in this encounter Care Teams Aircraft Motor Mechanic Relationship Specialty Start Date End Date Daily Cruz MD PCP - General Family Medicine 07/09/19 07/11/19 documented as of this encounter
--- OUTSIDE RECORDS SUMMARY | 2024-02-21 19:41 | XMS_ITS | Encounter Summary ---
Author Organization [facility] Address [address] [place] [address] Phone Care Team Providers Care Retail Merchandiser Name Role Phone Daily Cruz MD Primary Care Provider [phone] Encounter Details Date Type Department Care Team (Late st Contact Info) Description 07/10/2019 Telephone [facility] Orthopaedic Surgery [address] [facility] 1st Floor [address] [place] [address] Charissa Holley MD [address] [facility] [address] [place], [place] [id number] Social History Tobacco Use Types Packs/Day Years [...] on file Legal Sex Female 3:37 PM RESIN FILTERER Gender Identity Female 03/02/2020 4:27 PM RESIN FILTERER Sexual Orientation Straight 07/10/2019 11 :13 PM CDT documented as of this encounter Miscellaneous Notes * Telephone Encounter - Marylou Duque RMA - 07/10/2019 1:40 PM CDT Patient called asking for office notes and script for wheelchair be sent to [facility] at [phone] that she can get the wheelchair. This was done today documented in this encounter Plan of Treatment Not on file documented as of this encounter Visit Diagnoses Not on filedocumented in this encounter Care Teams Retail Merchandiser Relationship Specialty Start Date End Date Daily Cruz MD PCP - General Family Medicine 07/09/19 07/11/19 documented as of this encounter
--- OUTSIDE RECORDS SUMMARY | 2024-02-21 19:41 | XMS_ITS | Encounter Summary ---
Author Organization [facility] Healthcare Address [address] [place] [address] Care Team Providers Care Casting House Worker Name Role Phone Jesusita Emmanuel MD Primary Care Provide r Encounter Details Date Type Department Care Team (Late st Contact Info) Description 07/20/2017 Telephone [facility] Neurodiagnostics [address] [place] [address] Russell Coyne MD PhD [address] [place] [address] Social History Tobacco Use Types Packs/Day Years Used Date Smoking Tobacco: Never Comments Unknown Sex and Gender Information Value Date Recorded Sex Assigned at Not on file Legal Sex Female 3:37 PM PANEL FLOW MACHINE OPERATOR Gender Identity Female 03/02/2020 4:27 PM PANEL FLOW MACHINE OPERATOR Sexual Orientation Straight 07/10/2019 11 :13 PM CDT documented as of this encounter Miscellaneous Notes * Telephone Encounter - Jakub Campos - 01/30/2018 10:29 AM CST Done L FLOW MACHINE OPERATOR documented in this encounter Plan of Treatment Not on file documented as of this encounter Visit Diagnoses Not on filedocumented in this encounter Care Teams Casting House Worker Relationship Specialty Start Date End Date Jesusita Emmanuel MD PCP - General 06/21/17 07/08/19 documented as of this encounter
--- OUTSIDE RECORDS SUMMARY | 2024-02-21 19:41 | XMS_ITS | Encounter Summary ---
Author Organization [facility] Healthcare Address [address] [place] [address] Care Team Providers Care Towboat Pilot Name Role Phone Jesusita Emmanuel MD Primary Care Provide r Encounter Details Date Type Department Care Team (Latest Contact Info) Description 06/21/2017 7:46 AM CDT - 06/27/2017 3:45 PM CDT Hospital Encounter [facility] [address] [place] [address] Russell Coyne MD PhD [address] [facility] [address] [place] [address] Discharge Disposition: Discharge to home or self care Social History Tobacco Use Types Packs/Day Years Used Date Smoking Tobacco: Never Comments Unknown Sex and Gender Information Value Date Recorded Sex Assigned at Not on file Legal Sex Female 3:37 PM INTERNET ASSESSOR Gender Identity Female 03/02/2020 4:27 PM INTERNET ASSESSOR Sexual Orientation Straight 07/10/2019 11 :13 PM CDT documented as of this encounter Last Filed Vital Signs Vital Sign Reading Time Taken Comments Blood Pressure 134/70 06/27/2017 2:07 PM CDT Pulse 91 06/27/2017 2:07 PM CDT Temperature - - Respiratory Rate - - Oxygen Saturation 100% 06/27/2017 2:07 PM CDT Inhaled Oxygen Concentration - - Weight 111.1 kg (245 lb) 06/21/2017 10:17 AM CDT Height 144.8 cm (4' 9 ) 06/21/2017 10:17 AM CDT Body Mass Index 53.02 06/21/2017 10:17 AM CDT documented in this encounter Discharge Disposition Disposition Code Departure Means Destination Discharge to home or self care documented in this encounter Plan of Treatment Not on file documented as of this encounter Procedures Procedure Name Priority Date/Time Associated Diagnosis Comments VIDEO ELECTROENCEPHALOGRAPHI C EXAM REPORT 07/06/2017 2:49 PM CDT documented in this encounter Results * VIDEO ELECTROENCEPHALOGRAPHIC EXAM REPORT (07/06/2017 2:49 PM CDT) Anatomical Region Laterality Modality Ultrasound us Provider Scanning CV ECHO PROCEDURES Final Resul t documented in this encounter Visit Diagnoses Not on filedocumented in this encounter Care Teams Towboat Pilot Relationship Specialty Start Date End Date Jesusita Emmanuel MD PCP - General 06/21/17 07/08/19 documented as of this encounter
--- OUTSIDE RECORDS SUMMARY | 2024-02-21 19:41 | XMS_ITS | Encounter Summary ---
Author Organization [facility] Healthcare Address [address] [place] [address] Care Team Providers Care Color Maker Formulator Name Role Phone Jesusita Emmanuel MD Primary Care Provide r Encounter Details Date Type Department Care Team (Late st Contact Info) Description 07/06/2017 Telephone [facility] [address] [place] [id number] Jakub Campos [place] Social History Tobacco Use Types Packs/Day Years Used Date Smoking Tobacco: Never Comments Unknown Sex and Gender Information Value Date Recorded Sex Assigned at Not on file Legal Sex Female 3:37 PM STEEL ROD BUSTER Gender Identity Female 03/02/2020 4:27 PM STEEL ROD BUSTER Sexual Orientation Straight 07/10/2019 11 :13 PM CDT documented as of this encounter Miscellaneous Notes * Telephone Encounter - Jakub Campos - 01/19/2018 9:06 AM CST Done. L ROD BUSTER documented in this encounter Plan of Treatment Not on file documented as of this encounter Visit Diagnoses Not on filedocumented in this encounter Care Teams Color Maker Formulator Relationship Specialty Start Date End Date Jesusita Emmanuel MD PCP - General 06/21/17 07/08/19 documented as of this encounter
--- OUTSIDE RECORDS SUMMARY | 2024-02-21 19:41 | XMS_ITS | Encounter Summary ---
Author Organization [facility] Healthcare Address [address] [place] [address] Care Team Providers Care Revenue Research Analyst Name Role Phone Jesusita Emmanuel MD Primary Care Provide r Reason for Referral * Diagnostic Imaging (Routine) - Closed Specialty Diagnoses / Procedures Referred By Matt burk Referred To Contact Radiology Diagnoses 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 or arthrodesis Left foot pain Procedures CT Foot Left WO Contrast Charissa Holley MD Phone: tel: fax: [facility] Referral ID Status Reason Start Date Expiration Date Visits Re quested Visits Authorized [id number] Closed 04/22/2019 06/08/2019 1 1 Reason for Visit * Diagnostic Imaging (Routine) - Closed Specialty Diagnoses / Procedures [facility] Referred To Contact Radiology Diagnoses 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 or arthrodesis Left foot pain Procedures CT Foot Left WO Contrast Charissa Holley MD Phone: tel: fax: [facility] Referral ID Status Reason Start Date Expiration Date Visits Re quested Visits Authorized [id number] Closed 04/22/2019 06/08/2019 1 1 Encounter Details Date Type Department Care Team (Latest Contact Info) Description 04/30/2019 10:40 AM CDT - 04/30/2019 11:59 PM CDT Hospital Encounter [facility] Radiology at [facility] [address] [place] [address] Charissa Holley MD [address] [place] [address] 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 or arthrodesis; Left foot pain Discharge Disposition: Discharge to [...] file Legal Sex Female 3:37 PM PATTERN HAND Gender Identity Female 03/02/2020 4:27 PM PATTERN HAND Sexual Orientation Straight 07/10/2019 11 :13 [...] 1 each by intrauterine route once 3 LORazepam (Ativan) 1 mg tablet 0 documented as of this encounter Discharge Disposition Disposition Code Departure Means Destination Discharge to home or self care documented in this encounter Plan of Treatment Not on file documented as of this encounter Procedures Procedure Name Priority Date/Time Associated Diagnosis Comments CT FOOT LEFT WO CONTRAST Schedule Routine, Read Routine (OP Routine) 04/30/2019 10:59 AM CDT 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 ??Attempted left 1st tarsometatarsal arthrodesis that is predominantly ununited with less than 20% bridging. 2. ??Mild left midfoot osteoarthritis. Dictated by: Yusra Herr M.D. The radiology attending physician has personally reviewed this study, and had reviewed and/or edited this written report and agrees with it. Electronically signed by: Mani Vilchis M.D. Narrative 04/30/2019 4:13 PM CDT EXAMINATION: CT of the left foot without intravenous contrast. HISTORY: ??Left foot malalignment. ??Follow-up. TECHNIQUE: Transaxial computed tomography images of the left foot were obtained according to standard protocol. ??Coronal and sagittal reformatted images were made at the scanner and submitted to the workstation for review. FINDINGS: There is no prior examination for comparison. There is an attempted predominantly ununited 1st tarsometatarsal arthrodesis with less than 20% bridging. 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 ??There is no acute fracture. ??A bone island is noted in the calcaneus. ??The Achilles, peroneal, ankle flexor, and ankle extensor tendons are intact. Procedure Note Mani Vilchis MD PhD - 04/30/2019 EXAMINATION: CT of the left foot without intravenous contrast. HISTORY: Left foot malalignment. Follow-up. TECHNIQUE: Transaxial computed tomography images of the left foot were obtained according to standard protocol. Coronal and sagittal reformatted images were made at the scanner and submitted to the workstation for review. FINDINGS: There is no prior examination for comparison. There is an attempted predominantly ununited 1st tarsometatarsal arthrodesis with less than 20% bridging. 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 There is no acute fracture. A bone island is noted in the calcaneus. The Achilles, peroneal, ankle flexor, and ankle extensor tendons are intact. IMPRESSION: 1. Attempted left 1st tarsometatarsal arthrodesis that is predominantly ununited with less than 20% bridging. 2. Mild left midfoot osteoarthritis. Dictated by: Yusra Herr M.D. The radiology attending physician has personally reviewed this study, and had reviewed and/or edited this written report and agrees with it. Electronically signed by: Mani Vilchis M.D. 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
--- OUTSIDE RECORDS SUMMARY | 2024-02-21 19:41 | XMS_ITS | Encounter Summary ---
Author Organization [facility] Healthcare Address [address] [place] [address] Care Team Providers Care Pacu Rn Name Role Phone Unknown, Notinfile Primary Care Provider Unavail able Encounter Details Date Type Department Care Team (Late st Contact Info) Description 01/24/2017 10:00 AM VISUAL BASIC PROGRAMMER - 01/24/2017 11:59 PM VISUAL BASIC PROGRAMMER Hospital Encounter [facility] [phone] Unknown, Notinfile Discharge Disposition: Discharge to home or self care Social History Tobacco Use Types Packs/Day Years Used Date Smoking Tobacco: Never Assessed Comments Unknown Sex and Gender Information Value Date Recorded Sex Assigned at Not on file Legal Sex Female 3:37 PM VISUAL BASIC PROGRAMMER Gender Identity Female 03/02/2020 4:27 PM VISUAL BASIC PROGRAMMER Sexual Orientation Straight 07/10/2019 11 :13 PM CDT documented as of this encounter Discharge Disposition Disposition Code Departure Means Destination Discharge to home or self care documented in this encounter Plan of Treatment Not on file documented as of this encounter Procedures Procedure Name Priority Date/Time Associated Diagnosis Comments ENTEROVIRUS PCR Routine Gen Lab 01/24/2017 10:00 AM VISUAL BASIC PROGRAMMER DISCHARGE LABORATORY CUMULATIVE REPORT 01/24/2017 12:00 AM VISUAL BASIC PROGRAMMER documented in this encounter Results * Enterovirus PCR (01/24/2017 10:00 AM VISUAL BASIC PROGRAMMER) Report Final Report: Enterovirus target nucleic acid not detected [facility] Organism ENTEROVIRUS TARGET NUCLEIC ACID NOT DETECTED [facility] CSF 01/24/2017 10:0 0 AM VISUAL BASIC PROGRAMMER 01/24/2017 9:49 PM VISUAL BASIC PROGRAMMER Narrative ANGELICA GARDUNO - 01/24/2017 9:49 PM VISUAL BASIC PROGRAMMER Testing performed on and after 09/13/16 performed at the [facility] Microbiology Laboratory using Nucleic Acid Amplification with the [employer]pi[employer] Xpert EV Assay. ??This assay detects RNA from Enterovirus using Real-Time PCR. ??This test is cleared by the [place] Food and Drug Administration for cerebrospinal fluid (CSF). ??The performance characteristics for this specimen type have been verified by the [facility] Laboratory. ??Positive Xpert EV results do not rule out other causes of meningitis, including mycobacteria, other viruses (e.g. herpes family viruses, arboviruses, mumps virus, etc.) and fungi. ??Negative Xpert EV results do not rule out enterovirus causes of meningitis but that enterovirus was not detected. ??If negative results are obtained in patients less than two years of age with symptoms and laboratory findings consistent with enterovirus, testing for parechovirus may be appropriate. Testing performed before 09/13/16 was performed by the Opiat[employer] Xpert EV Assay at [facility]. ?? This assay detects RNA from Enterovirus using Real-Time PCR. ??This test is cleared by the [place] Food and Drug Administration for cerebrospinal fluid (CSF). ??The performance characteristics have been verified by the [facility] Virology Laboratory. us Notinfile Unknown LAB MICROBIOLOGY - GENERAL ORD ERABLES Final Result ANGELICA [facility] Department [place] [address] * DISCHARGE LABORATORY CUMULATIVE REPORT (01/24/2017 12:00 AM VISUAL BASIC PROGRAMMER) Narrative 01/24/2017 12:00 AM VISUAL BASIC PROGRAMMER Ordered by an unspecified provider. us Historical Provider LAB BLOOD ORDERABLES Karen l Result documented in this encounter Visit Diagnoses Not on filedocumented in this encounter Care Teams Pacu Rn Relationship Specialty Start Date End Date Unknown, Notinfile PCP - General 08/12/16 04/25/17 documented as of this encounter
--- OUTSIDE RECORDS SUMMARY | 2024-02-21 19:41 | XMS_ITS | Encounter Summary ---
Author Organization [facility] Address [address] [place] [address] Phone Care Team Providers Care Telecom Field Technician Name Role Phone Jesusita Emmanuel MD Primary Care Provide r Reason for Referral * Diagnostic Imaging (Routine) - Closed Specialty Diagnoses / Procedures Referred By Matt burk Referred To Contact Radiology Diagnoses 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 or arthrodesis Left foot pain Procedures CT Foot Left WO Contrast Charissa Holley MD Phone: tel: fax: [facility] Referral ID Status Reason Start Date Expiration Date Visits Re quested Visits Authorized [id number] Closed 04/22/2019 06/08/2019 1 1 Reason for Visit * Reason Comments Pain * Consultation (Routine) - Canceled Specialty Diagnoses / Procedures Referred By Matt burk Referred To Contact Orthopedic Surgery Diagnoses 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 or arthrodesis Pain in left foot Unknown, [facility] [address] [place] [address] Phone: tel: fax: Referral ID Status Reason Start Date Expiration Date Visits Requested Visits Authorized [id number] Canceled Specialty Services Required 01/30/2019 08/10/2020 1 1 Encounter Details Date Type Department Care Team (Late st Contact Info) Description 04/22/2019 9:45 AM CDT Office Visit [facility] [address] [place] [address] Unknown, Charissa Walter MD [address] [place] [address] 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 or arthrodesis (Primary Dx); Left foot pain Social History Tobacco Use Types Packs/Day Years Used Date Smoking Tobacco: Never Smokeless Tobacco: Never Alcohol Use Standard Drinks/Week Comments Yes 0 (1 standard drink = 0.6 oz pur e alcohol) RARE Comments Unknown Sex and Gender Information Value Date Recorded Sex Assigned at Not on file 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 Gender Identity Female 03/02/2020 4:27 PM HAND ASSEMBLER Sexual Orientation Straight 07/10/2019 11 :13 PM CDT documented as of this encounter Last Filed Vital Signs Vital Sign Reading Time Taken Comments Blood Pressure - - Pulse - - Temperature - - Respiratory Rate - - Oxygen Saturation - - Inhaled Oxygen Concentration - - Weight 120.2 kg (265 lb) 04/22/2019 10:08 AM CDT Height 170.2 cm (5' 7 ) 04/22/2019 10:08 AM CDT Body Mass Index 41.5 04/22/2019 10:08 AM CDT documented in this encounter Progress Notes * Charissa Holley MD - 04/22/2019 9:45 AM CDT NEW PATIENT VISIT CHIEF COMPLAINT Left foot pain HISTORY OF PRESENT ILLNESS The patient is a 28 y.o. year old female with a complaint of atraumatic postsurgical left foot pain. She underwent right TMT arthrodesis for bunion correction in April 2018: She underwent the same procedure on the left foot in July 2018. She had continued pain along the left foot and underwent a revision arthrodesis in September 2018. She says she was only nonweightbearing for 2 weeks postoperatively, has had continued pain weight-bearing in a boot. Her right foot was doing well until she started a course of nonweightbearing for her left foot, now has pain at her right foot as well. 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 She is . She is a nonsmoker. PAST MEDICAL HISTORY Past Medical History: Diagnosis Date ??? ADHD (attention deficit hyperactivity disorder) ??? Anxiety ??? Arthritis ??? Depression ??? Gastric reflux ??? GERD (gastroesophageal reflux disease) ??? Jaundice ??? Kidney stone ??? Migraines ??? Obesity ??? Pneumonia ??? Seasonal allergies ??? Seizures (CMS/HCC) PAST SURGICAL HISTORY Past Surgical History: Procedure Laterality Date ??? FOOT SURGERY ??? LAPAROSCOPIC ENDOMETRIOSIS FULGURATION ??? TONSILECTOMY, ADENOIDECTOMY, BILATERAL MYRINGOTOMY AND TUBES INITIAL REVIEW OF MEDICATIONS Current Outpatient Medications on File Prior to Visit Medication Sig Dispense Refill ??? jrcohkkivsumu-bpipjcc-vivrjffo (EXCEDRIN MIGRAINE) 250-250-65 mg per tablet Take 1 tablet by mouth every 4 (four) hours as needed ??? albuterol HFA (Ventolin HFA) 90 mcg/actuation inhaler Inhale 2 puffs every 6 (six) hours as needed ??? levonorgestreL (KYLEENA) IUD by intrauterine route ??? LORazepam (Ativan) 1 mg tablet No current facility-administered medications on file prior to visit. DRUG ALLERGIES Allergies Allergen Reactions ??? Dihydroergotamine Other (See comments) Severe pressure and tightness in chest Severe pressure and tightness in chest Anxiety, Shortness of Breath/Wheezing (Shortness of breath) ??? Acetazolamide Rash Other reaction(s): Other (See Comments) Numbness Other reaction(s): Other (See Comments) Numbness ??? Ricszfuabrb-Zgmojzvc-Ckctaxear Swelling Tongue swelling, blistering ??? Nickel Hives, Itching, Rash and Swelling SKIN TURNS RED ??? Topiramate Swelling and Other (See comments) Dizzy, body goes numb ??? Hydrocodone-Acetaminophen Nausea And Vomiting ??? Lamotrigine Other (See comments) SEIZURE ACTIVITY ??? Levetiracetam Other (See comments) SEIZURE ACTIVITY SOCIAL HISTORY Social History Tobacco Use Smoking Status Never Smoker Smokeless Tobacco Never Used Social History Substance and Sexual Activity Alcohol Use Yes Comment: RARE FAMILY HISTORY Family History Problem Relation Age of Onset ??? Seizures Sister Family history of seizures - (Added by TW Conv) ??? Arthritis Sister ??? Hypertension Sister ??? Mental illness Sister ??? Stroke Sister ??? Arthritis Mother ??? Hypertension Mother ??? Mental illness Mother ??? Stroke Mother ??? Seizures Mother ??? Diabetes Mother ??? Alcohol abuse Mother ??? Arthritis Father ??? Hypertension Father ??? Mental illness Father REVIEW OF SYSTEMS Review of Systems HENT: Positive for ear discharge and tinnitus. Eyes: Positive for double vision. Gastrointestinal: Positive for abdominal pain, diarrhea, heartburn, nausea and vomiting. Genitourinary: Positive for flank pain. Musculoskeletal: Positive for back pain, joint pain, myalgias and neck pain. Neurological: Positive for dizziness, weakness and headaches. Psychiatric/Behavioral: The patient is nervous/anxious and has insomnia. All other systems reviewed and are negative. PHYSICAL EXAMINATION The patient is 170 cm tall and weighs 120 kg. She is alert and in no acute distress. Respirations are normal and hearing is intact to spoken word. Gait is antalgic. There is no swelling of the feet. There are no skin rashes or lesions on bilateral lower extremities. Hindfoot alignment is mild valgus on the right, flexible. There is bilateral pes planus Left lower extremity ankle range of motion 5/10/50. Longitudinal incision along the 1st ray is wellhealed. She is tender light at the proximal aspect of this incision at the 1st TMT joint. Pes planus, no hallux valgus deformity.. Decreased sensation along the medial branch of the superficial peroneal nerve, otherwise neurovascularly intact. Right lower extremity ankle range of motion 10/10/50. Longitudinal incision along the 1st ray is well healed. She is mildly tender light at the proximal aspect of this incision at the 1st TMT joint. Pes planus, no hallux valgus deformity. Decreased sensation along the medial branch of the superficial peroneal nerve, otherwise neurovascularly intact. On seated exam, there is intact dorsiflexion, plantar flexion, inversion and eversion. Strength is 5 out of 5 throughout bilaterally. Sensation is intact to light touch over both feet. There are 2+ dorsalis pedis and posterior tibial pulses bilaterally. Jodee Emery MD Please refer to Dr. Holley's addendum for radiographic evaluation, assessment and final plan NEW PATIENT VISIT ATTENDING ADDENDUM This is an addendum to a note dictated by the Resident Physician CHIEF COMPLAINT Left foot pain HISTORY OF PRESENT ILLNESS The patient is a 28 y.o. year old patient with complaints of left foot pain. She had bunion surgeryon both feet her left side bothers her more than her right but she is having pain on the right as well. On the left side she had surgery in July. There was a loss of fixation so she had a revision inAugust. She was in a boot for awhile. When she tried to come out of the boot she really had a lot of problems. Ultimately, she states that she has been in out of the boot wearing it most of the time since September of last year. She lost her insurance at the end of the years to her appointment here was delayed. She presents now for an opinion regarding her left foot. She she is not a smoker. She does not have diabetes Past Medical History, Past Surgical History, Medications, Allergies, Social History, Family Historyand ROS: These have been reviewed in full in the patient chart. PHYSICAL EXAMINATION I have examined the patient with the Resident physcian and I concur with the findings noted. She has no significant swelling of her feet bilaterally. She has had a correction of her hallux valgus deformity with no residual deformity. She is tender to palpation along her surgical incision worse on the left. Most of her tenderness is at the level of the tarsometatarsal joint. She does describe some pain around the first metatarsophalangeal joint but she has full range of motion with no crepitus today. She also describes paresthesias and numbness along the medial border of the foot. REVIEW OF X-RAYS/STUDIES She brings with her radiographs of her left foot. AP, lateral oblique views taken in early April ofthis year suggested nonunion at the first tarsometatarsal joint. However, there is no evidence of hardware loosening or failure. 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 She has no evidence of hardware loosening or failure yet I am still suspicious of a nonunion. If she does in fact have a nonunion we will consider revision surgery. This would include iliac crest bone graft. We talked about the expectations after surgery in terms of time nonweightbearing in a cast followed by wearing a boot. She wants to proceed with a CT scan. At this point she has very limited by this. The right side started hurting as well. At some point we will have to further evaluate that side. The patient was encouraged to call us if any questions or concerns arise. FOLLOW UP Next visit: We will order CT scan of her left foot. I will call her with results Charissa Holley MD Director Clinical Research Foot [facility]le Service [facility] Convention Services Director completed by [employer]. Convention Services Director variances may occur. documented in this encounter Plan of Treatment Not on file documented as of this encounter Results * CT Foot Left [...] Visit Diagnoses Diagnosis 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 or arthrodesis- Primary Arthrodesis status Left foot pain Pain in soft tissues of limb 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 or arthrodesis Arthrodesis status Left foot pain Pain in soft tissues of limb documented in this encounter Historical Medications * This list may reflect changes made after this encounter. LORazepam (Ativan) 1 mg tablet 0 levonorgestreL (KYLEENA) IUD 1 each by intrauterine route once 3 acetaminophen-as pirin-caffeine (EXCEDRIN MIGRAINE) 250-250-65 mg per tablet Take 1 tablet by mouth every 4 (four) hours as needed 0 albuterol HFA (PROVENTIL HFA,VENTOLIN HFA,PROAIR HFA) 90 mcg/actuation inhaler Inhale 2 puffs every 6 (six) hours as needed 2 added in this encounter Care Teams Telecom Field Technician Relationship Specialty Start Date End Date Jesusita Emmanuel MD PCP - General 06/21/17 07/08/19 documented as of this encounter
--- OUTSIDE RECORDS SUMMARY | 2024-02-21 19:41 | XMS_ITS | Encounter Summary ---
Author Organization 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
--- OUTSIDE RECORDS SUMMARY | 2024-02-21 19:41 | XMS_ITS | Encounter Summary ---
Author Organization [facility] Address [address] [place] [address] Care Team Providers Care Supervisor Compounding And Finishing Name Role Phone Unknown, Notinfile Primary Care Provider Unavail able Encounter Details Date Type Department Care Team (Late st Contact Info) Description 08/12/2016 8:06 PM CDT - 08/12/2016 11:11 PM CDT Emergency [facility] Emergency Department [id number] [place] [address] [place] MD [id number] [place] [address] [address] [place] [address] Discharge Disposition: Discharge to home or self care Social History Tobacco Use Types Packs/Day Years Used Date Smoking Tobacco: Never Assessed Comments Unknown Sex and Gender Information Value Date Recorded Sex Assigned at Not on file Legal Sex Female 3:37 PM CAMPUS PRESIDENT Gender Identity Female 03/02/2020 4:27 PM CAMPUS PRESIDENT Sexual Orientation Straight 07/10/2019 11 :13 PM CDT documented as of this encounter Discharge Disposition Disposition Code Departure Means Destination Discharge to home or self care documented in this encounter Plan of Treatment Not on file documented as of this encounter Procedures Procedure Name Priority Date/Time Associated Diagnosis Comments CT ABDOMEN PELVIS WO CONTRAST Routine 08/13/2016 3:19 AM CDT N. GONORRHOEAE NA AMP, SWAB STAT 08/12/2016 9:40 PM CDT CHLAMYDIA TRACHOMATIS BY NA AMP,SWAB STAT 08/12/2016 9:40 PM CDT TRICHOMONAS ANTIGEN STAT 08/12/2016 9 :40 PM CDT EGFR STAT 08/12/2016 9:10 PM CDT DIFFERENTIAL AUTO STAT 08/12/2016 9:1 0 PM CDT CBC WITH AUTO DIFFERENTIAL STAT 08/12/2016 9:10 PM CDT LIPASE STAT 08/12/2016 9:10 PM CDT COMPREHENSIVE METABOLIC PANEL STAT 08/12/2016 9:10 PM CDT URINALYSIS AND REFLEX TO MICROSCOPIC AND CULTURE STAT 08/12/2016 9:00 PM CDT URINALYSIS, MICROSCOPIC ONLY STAT 08/12/2016 9:00 PM CDT URINE CULTURE STAT 08/12/2016 9:00 PM CDT DISCHARGE LABORATORY CUMULATIVE REPORT 08/12/2016 12:00 AM CDT documented in this encounter Results * CT Abdomen Pelvis WO Contrast (08/13/2016 3:19 AM CDT) Anatomical Region Laterality Modality Body N/A Computed Tomogra phy 08/13/2016 3:19 AM CDT Narrative 08/13/2016 3:19 AM CDT DATE OF EXAM: ??Aug 12 2016 10:19PM Acc#: ??[id number] ??ECT 0178 - CT KUB Stone WO ?? DIAGNOSIS: ??STOMACH AND BACK PAIN CLINICAL HISTORY: ?? Pain RESULT: EXAMINATION: CT KUB Stone WO Date: 08/12/2016. History: Nausea and left-sided abdominal pain Technique: Transaxial computed tomographic images of the abdomen and pelvis were obtained without the administration of intravenous contrast using a renal stone protocol. Multiplanar coronal and sagittal images were reformatted. Comparison: Findings: Visualized lung bases are clear. The liver, spleen, pancreas, adrenals, gallbladder appear within normal limits. ??Aorta is normal caliber. ??Multiple bilateral nonobstructing renal calculi and calcification. ??No bowel obstruction. ??A normal appendix visualized. A 4.4 x 3.4 cm cyst is seen in the right ovary. ??1.5 cm follicle in the left ovary. No bowel obstruction. ??Mild grade 1 retrolisthesis of L4 over 5. Limited study due to lack of oral and IV contrast. ??Diverticulosis without diverticulitis. ??No bowel wall thickening. ??No ascites or lymphadenopathy. IMPRESSION: Multiple bilateral nonobstructing renal calculi and calcification. No hydronephrosis or hydroureter A normal appendix visualized. A 4.4 x 3.4 cm right ovarian cyst. ??No ascites. Electronically signed by: Jerod Mackenzie M.D. ? BUILDING DRAFTING OFFICER: ??PSC TRANSCRIBE DATE/TIME: ??Aug 12 2016 10:15P RADIOLOGIST: ??JEROD MACKENZIE M.D. ??READ ON: ??Aug 12 2016 10:19P ORDERING DR: LAURIE DE LA GARZA M.D. THIS DOCUMENT HAS BEEN ELECTRONICALLY SIGNED BY: ??AVRIL Dowd, JEROD ??ON: ??Aug 12 2016 10:15P Attending: ??DEVON, ??LAURIE Requesting: ??DEVON, ??LAURIE Requesting Fax: ??-- Attending Fax: ??-- Attending ID: ??[id number] Requesting ID: ??[id number] Report To 1 ID: ?? Report To 1 Name: ??, ?? Report To 1 FAX: ??-- Report To 2 ID: ?? Report To 2 Name: ??, ?? Report To 2 FAX: ??-- NextGen Order #: ?? Procedure Note Miscellaneous, Not In File / Provider, MD Yessica - 08/12/2016 DATE OF EXAM: Aug 12 2016 10:19PM Acc#: [id number] ECT 0178 - CT KUB Stone WO DIAGNOSIS: STOMACH AND BACK PAIN CLINICAL HISTORY: Pain RESULT: EXAMINATION: CT KUB Stone WO Date: 08/12/2016. History: Nausea and left-sided abdominal pain Technique: Transaxial computed tomographic images of the abdomen and pelvis were obtained without the administration of intravenous contrast using a renal stone protocol. Multiplanar coronal and sagittal images were reformatted. Comparison: Findings: Visualized lung bases are clear. The liver, spleen, pancreas, adrenals, gallbladder appear within normal limits. Aorta is normal caliber. Multiple bilateral nonobstructing renal calculi and calcification. No bowel obstruction. A normal appendix visualized. A 4.4 x 3.4 cm cyst is seen in the right ovary. 1.5 cm follicle in the left ovary. No bowel obstruction. Mild grade 1 retrolisthesis of L4 over 5. Limited study due to lack of oral and IV contrast. Diverticulosis without diverticulitis. No bowel wall thickening. No ascites or lymphadenopathy. IMPRESSION: Multiple bilateral nonobstructing renal calculi and calcification. No hydronephrosis or hydroureter A normal appendix visualized. A 4.4 x 3.4 cm right ovarian cyst. No ascites. Electronically signed by: Jerod Mackenzie M.D. BUILDING DRAFTING OFFICER: PSC TRANSCRIBE DATE/TIME: Aug 12 2016 10:15P RADIOLOGIST: JEROD MACKENZIE M.D. READ ON: Aug 12 2016 10:19P ORDERING DR: LAURIE DE LA GARZA M.D. THIS DOCUMENT HAS BEEN ELECTRONICALLY SIGNED BY: JEROD MACKENZIE M.D. ON: Aug 12 2016 10:15P Attending: LAURIE DE LA GARZA Requesting: LAURIE DE LA GARZA Requesting Fax: -- Attending Fax: -- Attending ID: [id number] Requesting ID: [id number] Report To 1 ID: Report To 1 Name: , Report To 1 FAX: -- Report To 2 ID: Report To 2 Name: , Report To 2 FAX: -- NextGen Order #: Laurie De La Garza MD IMG CT PROCEDURES Final Result * Chlamydia trachomatis by NA Amp, swab (08/12/2016 9:40 PM CDT) C. trachomatis RNA Negative Negative ANGELICA MILLER Comment: Interpretive Data This test has been developed to maximize the sensitivity of detection of infection while minimizing false positives, with the combined goals of enabling treatment of infection and interrupting the spread of infection, and is intended for medical purposes. Any result should be interpreted together with the clinical presentation and risk assessment, particularly the prevalence of infection in the patient's demographic group. ??Significant discrepancies should be evaluated by additional measures. Current Interpretive Data was last revised on 2015 Swab 08/12/2016 9:40 PM CDT 08/12/2016 10:02 PM CDT Laurie De La Garza MD LAB BODY FLUIDS AND STOOLS ORDE RABLES Final Result Performing Organization Address [facility] de Phone Number ANGELICA [phone] [facility] [place] [address] * N. Gonorrhoeae NA Amp, swab (08/12/2016 9:40 PM CDT) N. gonorrhoeae RNA Negative Negative ANGELICA MILLER Comment: Interpretive Data This test has been developed to maximize the sensitivity of detection of infection while minimizing false positives, with the combined goals of enabling treatment of infection and interrupting the spread of infection, and is intended for medical purposes. Any result should be interpreted together with the clinical presentation and risk assessment, particularly the prevalence of infection in the patient's demographic group. ??Significant discrepancies should be evaluated by additional measures. Current Interpretive Data was last revised on 2015 Swab 08/12/2016 9:40 PM CDT 08/12/2016 10:02 PM CDT Laurie De La Garza MD LAB BODY FLUIDS AND STOOLS ORDE RABMARIANA Final Result Performing Organization Address [facility] Co de Phone Number ANGELICA [address] [place] [address] * Trichomonas Antigen (08/12/2016 9:40 PM CDT) Trichomonas ag, fld Negative Negative ANGELICA MILLER Vaginal 08/12/2016 9:40 PM CDT 08/12/2016 10:02 PM CDT Laurie De La Garza MD LAB BLOOD ORDERABLES Final Resu lt Performing Organization Address [facility] Co de Phone Number ANGELICA [address] Department [place] [address] * eGFR (08/12/2016 9:10 PM CDT) eGFR 85 mL/min/1.7 3 m2 [facility] Comment: Interpretive Data Reference Interval Normal ?>/= 90 mL/min/1.73m2 Mildly decreased* ? 60 - 89 mL/min/1.73m2 Mildly to moderately decreased ?45 - 59 mL/min/1.73m2 Moderately to severely decreased ??30 - 44 mL/min/1.73m2 Severely decreased ?15 - 29 mL/min/1.73m2 Kidney Failure ?< 15 ??mL/min/1.73m2 *Relative to young adult level If -Congolese multiply value by 1.16. Estimated glomerular filtration rate is determined by [...] 70. Current interpretive data was last reviewed 2015. Blood specimen (specimen) 08/12/2016 9:10 PM CDT 08/12/2016 9:21 PM CDT us Carlito Garcia MD LAB BLOOD ORDERABLES Final Result [facility] [address] Department [place] [address] * Comprehensive metabolic panel (08/12/2016 9:10 PM CDT) Sodium 140 135 - 145 mmol/L [facility] Potassium, pl 3.9 3.5 - 5.1 mmol/L [facility] CO2 24 22 - 32 mmol/L [facility] BUN 13 8 - 24 mg/dL [facility] Glucose 84 70 - 199 mg/dL [facility] Creatinine 0.94 0.60 - 1.30 mg/dL [facility] Calcium 9.5 8.4 - 10.5 mg/dL [facility] Chloride 105 100 - 114 mmol/L [facility] Albumin 3.8 3.2 - 4.8 g/dL [facility] AST 17 7 - 40 Units/L [facility] ALT 18 1 - 45 Units/L [facility] Alk phos 90 30 - 110 Units/L [facility] Bilirubin, total 0.30 0.10 - 1.30 mg/dL [facility] Protein, pl 7.3 6.0 - 8.3 g/dL [facility] Anion gap 15 8 - 16 mmol/L [facility] Blood specimen (specimen) 08/12/2016 9:10 PM CDT 08/12/2016 9:16 PM CDT Carlito Garcia MD LAB BLOOD ORDERABLES Final Result Performing Organization Address [facility] Co de Phone Number [facility] [address] [place], [place] [id number] * Lipase (08/12/2016 9:10 PM CDT) Pathologist [facility] Lipase 21 20 - 50 Units/L [facility] Blood specimen (specimen) 08/12/2016 9:10 PM CDT 08/12/2016 9:16 PM CDT Carlito Garcia MD LAB BLOOD ORDERABLES Final Result Performing Organization Address [facility]/ZIP Co de Phone Number [facility] [address] [place], [place] [id number] * (ABNORMAL) CBC with auto differential (08/12/2016 9:10 PM CDT) WBC 13.35(H) 3.80 - 9.90 K/cumm [facility] RBC 4.66 3.90 - 5.20 M/cumm [facility] Hgb 13.5 11.9 - 15.5 g/dL [facility] Hct 41.9 35.6 - 45.5 % [facility] MCV 89.9 81.3 - 96.4 fL [facility] MCH 29.0 27.1 - 33.3 pg [facility] MCHC 32.2(L) 32.3 - 35.7 g/dL [facility] RDW CV 14.3 11.1 - 14.9 % [facility] RDW SD 47.1 35.7 - 48.1 fL [facility] Plt 386 150 - 400 K/cumm [facility] MPV 10.2 9.1 - 12.3 fL [facility] NRBC 0.0 0.0 - 0.2 % [facility] NRBC abs 0.00 0.00 - 0.01 K/cumm [facility] Blood specimen (specimen) 08/12/2016 9:10 PM CDT 08/12/2016 9:16 PM CDT Carlito Garcia MD LAB BLOOD ORDERABLES Final Result [facility] [address] [place] [address] * (ABNORMAL) Differential, auto (08/12/2016 9:10 PM CDT) Neutrophil pct 69.4 % [facility] Imm gran pct 0.4 % [facility] Lymphocyte pct 22.7 % [facility] Monocyte pct 6.3 % [facility] Eosinophil pct 0.1 % [facility] Basophil pct 0.4 % [facility] Neutrophil abs 9.26(H) 1.70 - 6.50 K/cumm [facility] Imm gran abs 0.06 0.00 - 0.10 K/cumm [facility] Lymphocyte abs 3.03 0.80 - 3.30 K/cumm [facility] Monocyte abs 0.84(H) 0.20 - 0.80 K/cumm [facility] Eosinophil abs 0.11 0.00 - 0.50 K/cumm [facility] Basophil abs 0.05 0.00 - 0.10 K/cumm [facility] Blood specimen (specimen) 08/12/2016 9:10 PM CDT 08/12/2016 9:16 PM CDT Carlito Garcia MD LAB BLOOD ORDERABLES Final Result Performing Organization Address [facility] Co de Phone Number ZARAMIKA MILLER [address] [facility] [place] [address] * Urine culture (08/12/2016 9:00 PM CDT) Report Final Report: Insignifican t growth based on current clinical standards. [facility] Comment:Testing performed by : [facility], [address] [place]., [address] Urine 08/12/2016 9:00 PM CDT 08/13/2016 1:06 AM CDT Narrative ANGELICA - 08/14/2016 7:49 AM CDT Carlito Garcia MD LAB MICROBIOLOGY - GENERAL ORDERABLES Final Result Performing Organization Address [facility] Co de Phone Number ZARAMIKA MILLER [address] [place] [address] * (ABNORMAL) Urinalysis, microscopic only (08/12/2016 9:00 PM CDT) RBC, ur 5(H) 0 - 3 /HPF [facility] WBC, ur 6(H) 0 - 5 /HPF [facility] Bacteria, ur Trace [facility] Epithelial cells, renal, ur 0 0 - 0 /HPF [facility] Epithelial cells, squamous, ur 11 /LPF [facility] Mucus, ur Present [facility] Urine 08/12/2016 9:00 PM CDT 08/12/2016 9:22 PM CDT Carlito Garcia MD LAB URINE ORDERABLES Final Result Performing Organization Address [facility] Co de Phone Number ZARAMIKA MILLER [address] [place] [address] * (ABNORMAL) Urinalysis reflex to microscopic and culture (08/12/2016 9:00 PM CDT) Color, ur Yellow [facility] Clarity, ur Hazy [facility] Specific gravity, ur 1.030 1.001 - 1.033 [facility] pH, ur 5.0 5.0 - 8.0 [facility] Protein, ur ql Negative Negative [facility] Glucose, ur ql Negative Negative [facility] Ketones, ur Negative Negative [facility] Bilirubin, ur Negative Negative [facility] Blood, ur 1+(A) Negative [facility] Urobilinogen, ur <2.0 <2.0 [facility] Nitrites, ur Negative Negative [facility] Leukocyte esterase, ur 1+(A) Negative [facility] Urine 08/12/2016 9:00 PM CDT 08/12/2016 9:22 PM CDT Carlito Garcia MD LAB MICROBIOLOGY - GENERAL ORDERABLES Final Result [facility] [address] [place] [address] * DISCHARGE LABORATORY CUMULATIVE REPORT (08/12/2016 12:00 AM CDT) Narrative 08/12/2016 12:00 AM CDT Ordered by an unspecified provider. Historical Provider LAB BLOOD ORDERABLES Karen l Result documented in this encounter Visit Diagnoses Not on filedocumented in this encounter Care Teams Supervisor Compounding And Finishing Relationship Specialty Start Date End Date Unknown, Notinfile PCP - General 08/12/16 04/25/17 documented as of this encounter
--- OUTSIDE RECORDS SUMMARY | 2024-02-21 19:41 | XMS_ITS | Encounter Summary ---
Author Organization [facility] Address [address] [place] [address] Phone Care Team Providers Care Law Office Assistant Name Role Phone Jesusita Emmanuel MD Primary Care Provide r Reason for Visit * Reason Comments Pain Encounter Details Date Type Department Care Team (Latest Contact Info) Description 07/01/2019 11:30 AM CDT Office Visit 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 or arthrodesis (Primary Dx); Left foot pain Social History Tobacco Use Types Packs/Day Years Used Date Smoking Tobacco: Never Smokeless Tobacco: Never Alcohol Use Standard Drinks/Week Comments Yes 0 (1 standard drink = 0.6 oz pur e alcohol) RARE Comments Unknown Sex and Gender Information Value Date Recorded Sex Assigned at Not on file Legal Sex Female 3:37 PM ELECTRONIC WARFARE TECHNICAL Gender Identity Female 03/02/2020 4:27 PM ELECTRONIC WARFARE TECHNICAL Sexual Orientation Straight 07/10/2019 11 :13 PM CDT documented as of this encounter Last Filed Vital Signs Vital Sign Reading Time Taken Comments Blood Pressure - - Pulse - - Temperature - - Respiratory Rate - - Oxygen Saturation - - Inhaled Oxygen Concentration - - Weight 120.2 kg (265 lb) 07/01/2019 11:41 AM CDT Height 170.2 cm (5' 7 ) 07/01/2019 11:41 AM CDT Body Mass Index 41.5 07/01/2019 11:41 AM CDT documented in this encounter Patient Instructions * Patient Instructions* Charissa Holley MD - 07/01/2019 11:30 AM CDT Images from the original note were not included. Foot and Ankle Patient Visit Name: Jud Leung : 1990 Diagnosis: Left first tarsometatarsal joint nonunion Thank you for coming in to see us today. We hope this visit met your expectations and that all of your questions were answered. Based on your diagnosis listed above, surgery is something that we can consider. There are also solutions to your foot problem that do not involve surgery. In your case: If you feel that you have already tried all of the non surgical solutions. The possible surgery is outlined below: Surgical Procedure: Left foot removal of deep hardware, revision first tarsometatarsal joint fusion, iliac crest bone graft Post-surgery expectations: Slow progression to weight bearing, swelling and stiffness for up to oneyear Expected Recovery: 6 weeks nonweightbearing in a cast, 6 weeks weightbearing in a boot, gradually progression to shoes as long as a CT scan at 3 months shows adequate healing, physical therapy for 2-3 months after coming out of the boot to address walking difficulties Next steps after this appointment: covid testing pre op Follow up on day of surgery Follow up Appointment: At the time of surgery If you have any questions, please call the office number listed below. Charissa Holley M.D. [facility] Dept. of Orthopaedic Surgery Marylou Duque, Zigzag Elastic Attacher Other resources: [email or web address] or [email or web address] documented in this encounter Progress Notes * Charissa Holley MD - 07/01/2019 11:30 AM CDT RETURN PATIENT VISIT INTERIM HISTORY The patient returns today for the left foot. Patient reports that she continues to have pain in herleft foot. She is unable to walk without wearing a boot. CT scan did show a nonunion of her first tarsometatarsal joint. She was scheduled for surgery but somewhat delayed because of COVID -19. PHYSICAL EXAMINATION The patient is alert and in no acute distress. The left foot has mild swelling. She is tender to palpation of the first tarsometatarsal joint. She also complains of central heel pad pain. REVIEW OF X-RAYS/STUDIES Reviewing her x-rays and CT scan. She is sent as a nonunion of the first tarsometatarsal joint. Although there is a little bony bridging plantarly it is less than 20% of the joint. IMPRESSION/DIAGNOSIS Left first tarsometatarsal joint arthrodesis nonunion TREATMENT/PLAN Today in clinic we discussed a plan for surgical treatment. The planned surgical procedure is: Left foot removal of hardware, revision first tarsometatarsal joint arthrodesis and iliac crest bone graft The risks and benefits as well as the expected post operative course were discussed in detail todaywith the patient. We have discussed the risk of infection, wound complications and bone healing complications. We have discussed expectations after surgical recovery is complete, including expected physical therapy, shoewear and duration of swelling. All questions were answered. Informed consent for the surgery was obtained in clinic today. After surgery: She will be six weeks nonweightbearing in a cast, six weeks in a boot. After she comes out of the boot we will obtain a CT scan to confirm healing. I anticipate that she will need 2 to 3 months of physical therapy in order to rehab her left lower extremity after a long period of time in the boot. She will slowly return to a shoe after boot/cast treatment. Physical therapy is anticipated at the time the patient returns to their shoe and in some cases it is required when the patient is in theirboot. Swelling and stiffness can linger for up to a year. She will be released to full activity at 1 year. The patient was encouraged to call us if any questions or concerns arise. FOLLOW UP Next visit: At the time of surgery Charissa Holley MD [employer] [facility] Orthopedics Dr. Charissa Holley dictating using Curse Naturally Speaking Software. Gold Assayer variances may occur. Charissa Holley MD documented in this encounter Plan of Treatment Not on file documented as of this encounter Visit Diagnoses Diagnosis 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 or arthrodesis- Primary Arthrodesis status Left foot pain Pain in soft tissues of limb documented in this encounter Orders General Supply Count Last Ordered Date First Or dered Date WHEELCHAIR 1 07/01/2019 documented in this encounter Care Teams Law Office Assistant Relationship Specialty Start Date End Date Jesusita Emmanuel MD PCP - General 06/21/17 07/08/19 documented as of this encounter
== END 2024-02-15 01:47 | disposition home or self-care (01) ==
PROVIDERS: Emergency Provider Emergency Medicine; PCP Family Medicine
DX: R07.89 Other chest pain (principal); R09.1 Pleurisy; R94.31 Abnormal electrocardiogram [ECG] [EKG]
CPT/HCPCS: 36415; 71046; 80053; 81001; 81025; 83690; 83880; 84484; 85025; 85380; 85610; 85730; 87086; 93005; 96361; 96374; 99284; A9270; J1885; J3360; J7030

== ENCOUNTER 2024-11-15 08:36 | Emergency (ER) | payer OTHER, SELFPAY ==
--- OUTSIDE RECORDS SUMMARY | 2024-03-07 12:30 | XMS_ITS ---
Author Organization [facility] [place] ([address]) Address [address] [place] [address] Care Team Providers Care Napkin Band Wrapper Name Role Phone Nancy DIAZ, Daily Primary Care Provider Un available Dr. Jakub Burger Unavailable [phone] Jenna Mares Unavailable Unavailable Yoko Guadalupe Unavailable [phone] REASON FOR VISIT Botox Encounters Encounter Location Date Provider Diagnosis [facility] [address] [place] [address] 03/07/2024 Yoko Guadalupe Plan Of Treatment No Information Progress Notes * Jud CROCKERDOB:1990 (34 yo F)Acc No.[id number]:03/07/2024 Progress Notes Patient: Jud SUÁREZ Provider: Rudolph Guadalupe APRN :1990 A ge:33 Y S ex:Female Date:03/07/2024 Address:[address], [facility] Pcp:Daily Cruz MD Subjective: * Chief Complaints: * 1 . Botox. * Medical History: Objective: * Vitals: Assessment: Plan: * Treatment: * Billing Information: * Visit Code: * Procedure Codes: * Electronic signature of RADHA Key on 11/15/2024 at 08:43 AM CDT Sign off status: Pending * Provider: Rudolph Guadalupe APRN Date: 0 03/07/2024 Generated for Anastacio esxton/Adrienne/Ashutosh on: 1 08:43 AM CDT
--- OUTSIDE RECORDS SUMMARY | 2024-03-21 12:30 | XMS_ITS ---
Author Organization [facility] [place] ([address]) Address [address] [facility] [address] [place] [address] Care Team Providers Care System Engineer Name Role Phone Nancy DIAZ, Daily Primary Care Provider Un available Dr. Jakub Burger Unavailable [phone] Jenna Mares Unavailable Unavailable Yoko Guadalupe Unavailable [phone] Allergies Allergen (clinical drug ingredient) Drug/Non Drug Allergy documented on EMR Reaction Allergy Type Onset Date Status levetiracetam Keppra other reaction Drug Allergy Active acetazolamide acetaZOLAMIDE other reaction Drug Allergy Active dihydroergotamine Dihydroergotamine other reaction Drug Allergy Active hydrochlorothiazide hydroCHLOROthiazide other reaction Drug Allergy Active topiramate Topiramate other reaction Drug Allergy Active REASON FOR VISIT Botox, Orofacial Dystonia Medications Medication SIG (Take, Route, Frequency, Duration) Notes Start Date End Date Status Zavzpret 10 MG/ACT 1 spray Nasally once, no repeat dose; Duration: 30 days As needed for migraine 08/10/2023 Active Fluticasone Propionate HFA 44 MCG/ACT 1 puff Inhalation Twice a day; Duration: 30 days 08/14/2023 Active Vitamin D3 1.25 MG (05550 UT) 1 capsule Orally Once per week; Duration: 56 days 01/01/2024 Active Olopatadine HCl 0.7 % 1 drop into affect ed eye Ophthalmic Once a day; Duration: 30 days 03/07/2024 Active Ventolin HFA 108 (90 Base) MCG/ACT 1 puff as needed Inhalation every 4 hrs Active Ryaltris 665-25 MCG/ACT 4 sprays (2 spra ys in each nostril) Nasally Twice a day; Duration: 30 days Active Nasal Wash - as directed Nasally Active Vitamin D3 250 MCG (99118 UT) 1 capsule Orally Once a week; Duration: 56 days Active Multivitamin Active Botox Cosmetic 50 UNIT as directed Intramuscular Active Social History Tobacco Use: Social History Observation Description Date Details (start date - stop date) Never Smoker NA - NA Smoking Smart Form: Question Answer Notes Are you a: never smoker Additional Findings:Tobacco Non-User Aggressive non-smoker Tobacco Control (Standard) Question Answer Notes Tobacco use: Nonsmoker Problems Problem Type SNOMED Code ICD Code Onset Dates Problem Status W/U Status Risk Notes Problem Chronic migraine without aura, non-intractab le (021373565586 100) Chronic migraine without aura, not intractable, without status migrainosus (G43.709) Active confirmed Problem Migraine with aura (1092714) Migraine with aura, not intractable, without status migrainosus (G43.109) Active confirmed Encounters Encounter Location Date Provider Diagnosis [facility] [address] [address] 03/21/2024 Yoko Guadalupe 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 Toxin injection Progress Notes * Jud CROCKERDOB:1990 (34 yo F)Acc No.[id number]:03/21/2024 Progress Notes Patient: Jud SUÁREZ Provider: Rudolph Guadalupe APRN :1990 A ge:33 Y S ex:Female Date:03/21/2024 Address:[facility] [address], [facility] Pcp:Daily Cruz MD Subjective: * Chief Complaints: * 1 . Botox. 2. Orofacial Dystonia. * HPI: * Introduction: HPI: Lanette Crocker, who presented for Botox injection.? * Initial History: INITIAL VISIT HISTORY: She is 32 year old woman with history of obesity, idiopathic intracranial hypertension (IIH), asthma, allergies s/p allergy shots, endometriosis s/p surgery, s/p bunionectomy, OA, s/p B knee arthroscopy, lumbar DDD with chronic LBP s/p lumbar spinal injections, bipolar disorder, chronic fatigue. Headache History: -Headache Onset: Developed migraine in childhood. Persisted through adolescence. In 2014 she developed IIH. At that time she was not responding to various migraine medications. She then had evaluation with Brain MRI and LP. LP showed elevated opening pressure ~ 40. She was treated with acetazolamide, but she had intolerable side effects from this medication ,was then put on HCTZ. Subsequent LPs have been performed and were no longer elevated (most recently in 05/2023 she had LP which showed opening pressure of 12; she did lose weight and seemingly resolved the IIH). However, despite normalizing her CSF pressure, her headaches did not improve, and she persisted in a chronic daily headache pattern. -Headache Description: Migraines are described as follows: no convincing description of aura, starts with nausea, then usually starts left retroorbital and orthodoxy, pain is throbbing, becomes sound > light sensitive, worsening of nausea, can last hours to days. -Headache Triggers: Stress, weather changes (barometric pressure change), hormone changes (e.g. menstrual cycle), under sleeping, over sleeping, exercise or exertion, specific foods, alcohol, dehydration -Headache Frequency: The patient is currently experiencing 8-12 Headache days/month (mild tension-type) and 4 Migraine days/month. This pattern is a substantial improvement since eliminating gluten 2 months ago. Other symptoms: Involuntary jaw clenching, present during the day, she sometimes has trouble unclenching her jaw. She also has nocturnal jaw clenching. She has B TMJ symptoms. Chiropractor has tried to adjust her jaw and she has tried jaw splint - no sustained improvement. She is now seeing Dr. Mares who is going to put her in braces and requested evaluation for Botox. * Previous Impression & Plan: Notes P revious Diagnoses: 1 . 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 Migraine without aura, not intractable, without status migrainosus - G43.009 P revious Recommendations: 1 . PA for Botox 100 Units; plan 20 Units B masseter, 20 Units B temporalis. 2 . Abortive: Zavzpret NS. Preventive: Magnesium/Riboflavin supplements, no prescription preventive. * Interval History: Notes P harmacologic Treatment: C urrent abortive treatment: Zavzpret NS, Nurtec (inconsistently/partially effective) P revious abortive treatment: S umatriptan (ineffective), rizatriptan (ineffective), Migranal (ineffective), Fioricet (ineffective), Ubrelvy (ineffective) C urrent preventive treatment: Magnesium/Riboflavin supplements P revious preventive treatment: D uloxetine (ineffective), Verapamil (side effects), Qulipta (ineffective), Aimovig (ineffective), Ajovy (ineffective), Emgality (partially effective, only used samples; was not approved by insurance), Levetiracetam ( ineffective), Topiramate (side effects), Acetazolamide (ineffective), Botox (inconsistent benefit, stopped after 2 years) M edication overuse: Not present O ther modalities: Physical Therapy, Chiropractic H eadache Frequency: I nitial/baseline headache/migraine days/month: 8-/ L ast visit headache/migraine days/month:8-01/16 C urrent headache/migraine days/month: / H eadache Scales: H IT-6: Current score: . Prior score: 63 I nterval History: L ast visit was on 12/07/2023 for Botox injection.. * Headache: Last injection on 12/07/23: Temporalis (Left) 20 Units, Temporalis (Right) 20 Units , Masseter (Left) 20 Units, Masseter (Right) 20 Units. * ROS: A LLERGY: runny nose Y es. s cratchy throat Y es. i tchy eyes Y es. e ar fullness Y es. s inus congestion Y es. C ONSTITUTIONAL: night sweats Y es. w eakness Y es. f atigue?Yes. E NT: change in voice Y es. s ore throat Y es. r inging in ears Y es. s inus pain Y es. R ESPIRATORY: chest congestion Y es. O PHTHALMOLOGY: itching Y es. s welling of the eyelids Y es. e ye irritation Y es. b lurring of vision Y es. E NDOCRINOLOGY: fatigue Y es. c old intolerance Y es. ? C ARDIOLOGY: dizziness Y es. l eg edema Y es. G ASTROENTEROLOGY: nausea Y es. i ndigestion Y es. v omiting Y es. a bdominal pain Y es. b lood in stool Y es. U ROLOGY: recurrent UTI Y es. D ERMATOLOGY: dry or sensitive skin Y es. N EUROLOGY: headache Y es. i nsomnia Y es. m linda loss?Yes. d izziness Y es. H EMATOLOGY/LYMPH: Positive for P atient denies history of excessive bruising or bleeding diasthesis. M USCULOSKELETAL: joint stiffness Y es. l eg cramps Y es. j oint pain Y es. j oint swelling Y es. s ciatica Y es. P SYCHOLOGY: depression Y es. m ental or physical abuse Y es.?anxiety Y es. * Medical History: O besity, Asthma, OA, Lumbar DDD, Migraine, H/o IIH, Lesion of plantar nerve, left lower limb, Allergic rhinitis due to pollen, Allergic rhinitis due to animal (cat) (dog) hair and dander, Other allergic rhinitis, Other chronic allergic conjunctivitis. * Surgical History: B knee arthroscopy , Foot surgery , laparoscopy 2022. * Hospitalization/Major Diagno stic Procedure: h eadaches 2023 . * Family History: F ather: Yes. M other: No. P aternal Grand Father: No. P aternal Grand Mother: Yes. M aternal Grand Father: No. M aternal Grand Mother: No. P aternal uncle: No. P aternal aunt: Yes. M aternal uncle: No. M aternal aunt: No. S iblings: Yes. No reported family history of migraine. * Social History: M arital Status What is your marital status? m arried A lcohol Screening Do you ever drink alcoholic beverages? Y es Number of drinks per occasion: 2 Frequency? E very other month C affeine: Yes. S moking Are you a : n ever smoker S moking Smart Form Are you a: n ever smoker Additional Findings:Tobacco Non-User A ggressive non-smoker R ecreational drug use Have you ever used recreational drugs? N o D etails on consumption of certain products? Do you regularly consume products with aspartame; Equal or NutraSweet? Y es Do you regularly consume products with artificial coloring??Yes E xercise What kind(s) of exercise do you perform regularly? w alking,weight training,other How often do you perform this exercise? w eekly A re any of the following personal care products containing fragrance, dye or preservatives used regularly? Shampoo: Y es Conditioner: Y es Soap: Y es Laundry Detergent: Y es Fabric Softener: Y es Deodorant: Y es Perfume, cologne, after shave: Y es O ccupation Are you currenly employed? Y es Employment status? 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 Y es How much work have you missed due to breathing difficulty within the past year? 1 week Please describe the effect of your illness on your job p oor concentration,poor performance,decreased enjoyment Do you have any pending or planned legal action against your current or former employer which pertains to your medical illness? N o Do you anticipate that your evaluation will be used in any legal action against your current employer or former employer? N o Have you had any job with high exposure to fumes, chemicals, dust or other noxious substances? Y es Are you currently a student? N o E nvironmental History Living environment: p rivate home,with pets Where is the home located? [place] Age of home: 5 0 How long have you lived there? 5 years or more How many people live in the home? 2 H ome description Basement: Y es Any water damage in basement? Y es Smokers in the home? N o Smokers outside the home? Y es Air Conditioning? Y es Central Air? Y es Forced air heating? N o Fireplace? N o Wood burning stove? N o Do you vacuum the home? Y es Air purification systems? N o Pillow and mattress dust-proof encasings? Y es Do you use a humidifier? Y es Whole house or room? r oom humidifier Does it have a humidistat? N o Do you own any pets? Y es What kind(s)? (click all that apply) b ird Where do your pets sleep? k itchen Fabric softeners used? Y es Plants in the home? N o Is there carpeting in your bedroom? Y es Age of carpet? 2 5 Do you have [id number]-pz-gikn carpeting? Y es What is the age of your carpeting? 2 0 What is the age of your mattress (years)? 1 0 What material(s) are used to manufacture your bedding and pillow? s ynthetic,natural fiber (e.g. cotton) What is the age of your pillow (years)? 1 What material are your bedding items made of? s ynthetic,natural fiber (e.g. cotton) Do you sleep with quilts or blankets or a duvet? Y es What material? f eather,synthetic,natural fiber (e.g. cotton) How many birds? 3 T obacco Control (Standard) Tobacco use: N onsmoker * Medications: T aking Ryaltris 665-25 MCG/ACT Suspension 4 sprays (2 sprays in each nostril) Nasally Twice a day , Taking Nasal Wash - Solution as directed Nasally , Taking Vitamin D3 250 MCG (29887 UT) Capsule 1 capsule Orally Once a week , Taking Multivitamin , Taking Botox Cosmetic 50 UNIT Solution Reconstituted as directed Intramuscular , Taking Ventolin HFA 108 (90 Base) MCG/ACT Aerosol Solution 1 puff as needed Inhalation every 4 hrs , Taking Zavzpret 10 MG/ACT Solution 1 spray Nasally once, no repeat dose As needed for migraine, Taking Fluticasone Propionate HFA 44 MCG/ACT Aerosol 1 puff Inhalation Twice a day , Taking Vitamin D3 1.25 MG (93522 UT) Capsule 1 capsule Orally Once per week , Taking Olopatadine HCl 0.7 % Solution 1 drop into affected eye Ophthalmic Once a day * Allergies: K eppra: other reaction, Dihydroergotamine: other reaction, acetaZOLAMIDE: other reaction, hydroCHLOROthiazide: other reaction, Topiramate: other reaction. Objective: * Vitals: * Examination: G eneral examination: General appearance: P leasant, well-developed, no distress.? HEENT: N ormocephalic, atraumatic. Neck, thyroid : S upple. Neurologic exam: A lert and oriented x 4. Fluent speech. CN II-XII intact. Motor 5/5 strength in all extremities. Reflexes 2+/2 and symmetric in all extremities. Cerebellar testing no tremors. Gait normal. Assessment: * Assessment: 1. I diopathic orofacial dystonia - G24.4 (Primary) 2 . M igraine without aura, not intractable, without status migrainosus - G43.009 Plan: * Treatment: * Procedure Codes: 6 4615 CHEMODENERV MUSC MIGRAINE, J0585 BOTULINUM TOXIN TYPE A PER UNIT, J0585 BOTULINUM TOXIN TYPE A PER UNIT, Modifiers: , 50000 PT-FOCUSED HLTH RISK ASSMT, G8427 DOC MEDS VERIFIED W/PT OR RE, G2211 Complex e/m visit add on * Follow Up: 3 Months (Reason: Evaluation and Management. Toxin injection) * Billing Information: * Visit Code: 91380 Office Visit, Est Pt., Level 4. Modifiers: 29438 Office Visit, Est Pt., Level 3. Modifiers: 84987 Office Visit, Est Pt., Level 5. Modifiers: 25 * Procedure Codes: 12391 CHEMODENERV MUSC MIGRAINE. J0585 BOTULINUM TOXIN TYPE A PER UNIT. J0585 BOTULINUM TOXIN TYPE A PER UNIT. Modifiers: 00471 PT-FOCUSED HLTH RISK ASSMT. G8427 DOC MEDS VERIFIED W/PT OR RE. G2211 Complex e/m visit add on. * Electronic signature of RADHA Key on 11/15/2024 at 08:42 AM CDT Sign off status: Pending * Provider: Rudolph Guadalupe APRN Date: 0 03/21/2024 Generated for Anastacio sexton/Adrienne/Ashutosh on: 1 08:42 AM CDT History and Physical Notes * HPI (History of Present Illness) Category Sub-Category Detail Notes Category Notes *Introduction HPI: Jud hernández, who presented for Botox injection *Headache Last injection on 12/07/23: Temporalis (Left) 20 Units, Temporalis (Right) 20 Units , Masseter (Left) 20 Units, Masseter (Right) 20 Units *Initial History INITIAL VISIT HISTORY: She is 32 year old woman with history of obesity, idiopathic intracranial hypertension (IIH), asthma, allergies s/p allergy shots, endometriosis s/p surgery, s/p bunionectomy, OA, s/p B knee arthroscopy, lumbar DDD with chronic LBP s/p lumbar spinal injections, bipolar disorder, chronic fatigue. Headache History: -Headache Onset: Developed migraine in childhood. Persisted through adolescence. In 2014 she developed IIH. At that time she was not responding to various migraine medications. She then had evaluation with Brain MRI and LP. LP showed elevated opening pressure ~ 40. She was treated with acetazolamide, but she had intolerable side effects from this medication ,was then put on HCTZ. Subsequent LPs have been performed and were no longer elevated (most recently in 05/2023 she had LP which showed opening pressure of 12; she did lose weight and seemingly resolved the IIH). However, despite normalizing her CSF pressure, her headaches did not improve, and she persisted in a chronic daily headache pattern. -Headache Description: Migraines are described as follows: no convincing description of aura, starts with nausea, then usually starts left retroorbital and orthodoxy, pain is throbbing, becomes sound > light sensitive, worsening of nausea, can last hours to days. -Headache Triggers: Stress, weather changes (barometric pressure change), hormone changes (e.g. menstrual cycle), under sleeping, over sleeping, exercise or exertion, specific foods, alcohol, dehydration -Headache Frequency: The patient is currently experiencing 8-12 Headache days/month (mild tension-type) and 4 Migraine days/month. This pattern is a substantial improvement since eliminating gluten 2 months ago. Other symptoms: Involuntary jaw clenching, present during the day, she sometimes has trouble unclenching her jaw. She also has nocturnal jaw clenching. She has B TMJ symptoms. Chiropractor has tried to adjust her jaw and she has tried jaw splint - no sustained improvement. She is now seeing Dr. Mares who is going to put her in braces and requested evaluation for Botox *Previous Impression & Plan Notes Previous Diagnoses:1. Idiopa thic orofacial dystonia - G24.4 (Primary)2. Migraine without aura, not intractable, without status migrainosus - G43.009Previous Recommendations:1. PA for Botox 100 Units; plan 20 Units B masseter, 20 Units B temporalis.2. Abortive: Zavzpret NS. Preventive: Magnesium/Riboflavin supplements, no prescription preventive *Interval History Notes Pharmacologic Treatment:Curr ent abortive treatment: Zavzpret NS, Nurtec (inconsistently/partially effective)Previous abortive treatment: Sumatriptan (ineffective), rizatriptan (ineffective), Migranal (ineffective), Fioricet (ineffective), Ubrelvy (ineffective)Current preventive treatment: Magnesium/Riboflavin supplementsPrevious preventive treatment: Duloxetine (ineffective), Verapamil (side effects), Qulipta (ineffective), Aimovig (ineffective), Ajovy (ineffective), Emgality (partially effective, only used samples; was not approved by insurance), Levetiracetam (ineffective), Topiramate (side effects), Acetazolamide (ineffective), Botox (inconsistent benefit, stopped after 2 years)Medication overuse: Not presentOther modalities: Physical Therapy, ChiropracticHeadache Frequency:Initial/baseline headache/migraine days/month: 8-/4Last visit headache/migraine days/month: 8-12/4Current headache/migraine days/month: /Headache Scales:HIT-6: Current score: . Prior score: 63Interval History:Last visit was on 12/07/2023 for Botox injection. Examination Category Sub-Category Detail Notes Category Not es General examination HEENT: Normocephalic, atraum atic Neck, thyroid : Supple General appearance: Pleasant, well-devel oped, no distress Neurologic exam: Alert and oriented x 4. Fluent speech. CN II-XII intact. Motor 5/5 strength in all extremities. Reflexes 2+/2 and symmetric in all extremities. Cerebellar testing no tremors. Gait normal
--- OUTSIDE RECORDS SUMMARY | 2024-04-29 12:30 | XMS_ITS ---
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 Jakub Burger Unavailable [phone] Jenna Mares Unavailable Unavailable Shellie Cobb Unavailable [phone] REASON FOR VISIT ARC follow-up: Previously on immunotherapy at [facility], stopped due to fatigue. Previously told she was allergic to everything. Recently with increased congestion and runny nose, Increased diffuse itchiness across the body since the new year. Noted abnormal kidney levels around that time. Yet to obtain repeat labs with PCP, Occasional shortness of breath. Previously on Breo and [...] as needed Inhalation every 4 hrs Active Olopatadine HCl 0.7 % 1 drop into affect ed eye Ophthalmic Once a day; Duration: 30 days 03/07/2024 Active Vitamin D3 1.25 MG (42749 UT) 1 capsule Orally Once per week; Duration: 56 days 01/01/2024 Active Fluticasone Propionate HFA 44 MCG/ACT 1 puff Inhalation Twice a day; Duration: 30 days 08/14/2023 Active Botox Cosmetic 50 UNIT as directed Intramuscular Active Multivitamin Active Ryaltris 665-25 MCG/ACT 4 sprays (2 spra ys in each nostril) Nasally Twice a day; Duration: 30 days Active Montelukast Sodium 10 MG 1 tablet Orally Once a day; Duration: 30 days Active Famotidine 20 MG 1 tablet Orally Twic e a day; Duration: 30 days Active Ipratropium [place] 0.06 % 2 sprays in e ach nostril Nasally Four times a day; Duration: 30 days Active Fluticasone Propionate 50 MCG/ACT 2 sprays in each nostril Nasally Twice a day; Duration: 30 days Active Vitamin D3 250 MCG (19832 UT) 1 capsule Orally Once a week; Duration: 56 days Active Fexofenadine HCl 180 MG 1 tablet Orally twice a day; Duration: 30 days Active Albuterol Sulfate HFA 108 (90 Base) MCG/ACT 2 puffs as needed Inhalation every 4 hrs; Duration: 30 days Active Nasal Wash - as directed Nasally Active Encounters Encounter Location Date Provider Diagnosis [facility] [address] [address] 04/29/2024 Shellie Cobb Shortness of breath R06.02 ; Pruritus, unspecified L29.9 ; Allergic rhinitis due to pollen J30.1 ; Allergic rhinitis due to animal (cat) (dog) hair and dander J30.81 ; Other allergic rhinitis J30.89 ; Other chronic allergic conjunctivitis H10.45 ; Chronic sinusitis, unspecified J32.9 ; Vitamin D deficiency, unspecified E55.9 ; Unspecified abdominal pain R10.9 ; Unspecified voice and resonance disorder R49.9 and Elevated blood-pressure reading, without diagnosis of hypertension R03.0 Assessments Encounter Date Diagnosis (ICD Code) Assessment Notes Treatment Notes Treatment Clinical Notes Section Notes 04/29/2024 Shortness of breath (ICD-10 - R06.02) Jud reports occasional cough and shortness of breath. Symptoms are easily triggered by illness and various environmental exposures. She has been on Breo and Advair Diskus in the past, however felt these worsened her symptoms. She is currently carrying a rescue inhaler, with use a few times per month. Recent with increased throat tightness and throat clearing that is improved with TADEO use. Spirometry today showed borderline restriction though more likely related to technique. I suspect underlying PND is the primary culprit of her asthma flaring. TADEO refilled today. Plan to treat with nasal sprays as below - Spirometry obtained at a prior visit that showed normal FEV1, FVC and FEV%. - Return in one month for E&M 04/29/2024 Pruritus, unspecified (ICD-10 - L29.9) Onset of diffuse pruritus occurring since the beginning of the year. Of note, she reports abnormal kidney function on her lab work around the same time of which she has not followed-up. [place] did reside while in [place] for a week. Some scatter potential petechiae vs heat rash? present to chest and back. Plan to start high dose antihistamines given increased upper airway symptoms in relation. Advised following-up with PCP to recheck kidney function, Consider additional work-up if itching persists 04/29/2024 Allergic rhinitis due to pollen (ICD-10 - J30.1) Jud clearly suffers from atopic disease based upon our skin testing and clinical history. Accordingly, we have encouraged her medication regimen, discussed nasal washes and allergy-specific avoidance measures. We also discussed adjunctive therapies including subcutaneous, specific allergen immunotherapy as relates to the treatment and prevention of atopic disease. Jud was previously on daily Sravanthi, montelukast and various nasal sprays. She did not find these beneficial, felt she was on too many medications that caused systemic side effects. - Jud was previously on IT at [facility], 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 - Plan on trial of Flonase and nasal ipratropium to assist with PND 04/29/2024 Allergic rhinitis due to animal (cat) (dog) hair and dander (ICD-10 - J30.81) Follow allergen avoidance, meds and consider SCIT as an adjunctive treatment to current regimen 04/29/2024 Other allergic rhinitis (ICD-10 - J30.89) Follow allergen avoidance, meds and consider SCIT as an adjunctive treatment to current regimen 04/29/2024 Other chronic allergic conjunctivitis (ICD-10 - H10.45) Given ocular signs and symptoms I encouraged allergy avoidance measures and meds as above. If symptoms persist, consider adding additional medications including intraocular antihistamine/mast cell stabilizer, PRN and consider SCIT as an adjunctive measure 04/29/2024 Chronic sinusitis, unspecified (ICD-10 - J32.9) Jud reports sinus infections multiple times per year requiring antibiotics meeting [facility] criteria for modified PIDD work-up. - Work-up shows inadequatoe protection to S. pneumo and H. influenzae. Immunization since obtained with repeat titers showing adequate protection 04/29/2024 Vitamin D deficiency, unspecified (ICD-10 - E55.9) Low vitamin D at 22 mg/dL. Plan to start 50,000 IU of vitamin D/ week for 8 weeks, followed by 5,000 IU/day for 4 weeks. Discussed taking vitamin D with a fatty meal. Will recheck level in 12 weeks 04/29/2024 Unspecified abdominal pain (ICD-10 - R10.9) Jud [...] swelling, skin changes or lower airway symptoms. Previosly discussed MCAS, however no history of hives/swelling/anap hylaxis. Baseline tryptase was WNL - Discussed strict food journal and elimination diet. 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 Reports seeing ENT recently, however this was not discussed. - No evidence of VCD on prior spirometry. - Previously discussed follow-up with ENT or consult with voice specialist, consider consult at [facility], Jud voiced understanding 04/29/2024 Elevated blood-pressure reading, without diagnosis of hypertension (ICD-10 - R03.0) BP elevated today without symptoms of urgency or emergency. Continue serial checks and follow-up with PCP Plan Of Treatment Medication Medication Name Sig Start Date Stop Date Notes Montelukast Sodium 10 MG 1 tablet Orally Once a day; Duration: 30 days Famotidine 20 MG 1 tablet Orally Twic e a day; Duration: 30 days Ipratropium [place] 0.06 % 2 sprays in e ach nostril Nasally Four times a day; Duration: 30 days Fluticasone Propionate 50 MCG/ACT 2 sprays in each nostril Nasally Twice a day; Duration: 30 days Vitamin D3 250 MCG (16182 UT) 1 capsule Orally Once a week; Duration: 56 days Fexofenadine HCl 180 MG 1 tablet Orally twice a day; Duration: 30 days Albuterol Sulfate HFA 108 (9 0 Base) MCG/ACT 2 puffs as needed Inhalation every 4 hrs; Duration: 30 days Nasal Wash - as directed Nasally Treatment Notes Assessment Notes Shortness of breath Jud reports occasional cough and shortness of breath. Symptoms are easily triggered by illness and various environmental exposures. She has been on Breo and Advair Diskus in the past, however felt these worsened her symptoms. She is currently carrying a rescue inhaler, with use a few times per month. Recent with increased throat tightness and throat clearing that is improved with TADEO use. Spirometry today showed borderline restriction though more likely related to technique. I suspect underlying PND is the primary culprit of her asthma flaring. TADEO refilled today. Plan to treat with nasal sprays as below - Spirometry obtained at a prior visit that showed normal FEV1, FVC and FEV%. - Return in one month for E&M Pruritus, unspecified Onset of diffuse p ruritus occurring since the beginning of the year. Of note, she reports abnormal kidney function on her lab work around the same time of which she has not followed-up. [place] did reside while in [place] for a week. Some scatter potential petechiae vs heat rash? present to chest and back. Plan to start high dose antihistamines given increased upper airway symptoms in relation. Advised following-up with PCP to recheck kidney function, Consider additional work-up if itching persists Allergic rhinitis due to pollen Jud clearly suffers from atopic disease based upon our skin testing and clinical history. Accordingly, we have encouraged her medication regimen, discussed nasal washes and allergy-specific avoidance measures. We also discussed adjunctive therapies including subcutaneous, specific allergen immunotherapy as relates to the treatment and prevention of atopic disease. Jud was previously on daily Sravanthi, montelukast and various nasal sprays. She did not find these beneficial, felt she was on too many medications that caused systemic side effects. - Jud was previously on IT at [facility], 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 - Plan on trial of Flonase and nasal ipratropium to assist with PND Allergic rhinitis due to ani mal (cat) [...] and consider SCIT as an adjunctive measure Chronic sinusitis, unspecified Jud reports sinus infections multiple times per year requiring antibiotics meeting F criteria for modified PIDD work-up. - Work-up shows inadequatoe protection to S. pneumo and H. influenzae. Immunization since obtained with repeat titers showing adequate protection Vitamin D deficiency, unspecified Low vi tamin [...] swelling, skin changes or lower airway symptoms. Previosly discussed [facility]AS, however no history of hives/swelling/anaphylaxis. Baseline tryptase was WNL - Discussed strict food journal and elimination diet. - Continue recommendations per GI Unspecified voice and resonance disorder Jud reports voice hoarseness that she has noticed for several months, she denies drainage or sore throat. Reports seeing ENT recently, however this was not discussed. - No evidence of VCD on prior spirometry. - Previously discussed follow-up with ENT or consult with voice specialist, consider consult at [facility], Jud voiced understanding Elevated blood-pressure read ing, without diagnosis of hypertension BP elevated today without symptoms of urgency or emergency. Continue serial checks and follow-up with PCP Pending Test Test Name Order Date Spirometry 04/29/2024 Next Appt Details Follow Up: 4 Weeks, Reason: Evaluation and Management Progress Notes * Candy CROCKERB:1990 (34 yo F)Acc No.[id number]:04/29/2024 Asthma F/U Patient: Jud SUÁREZ Provider: Zenaida Cobb DNP BLOOD BANK TECHNOLOGIST-C :1990 A ge:33 Y S ex:Female Date:04/29/2024 Address:[facility] [address], [facility] Pcp:Daily Cruz MD Subjective: * Chief Complaints: * 1 . ARC follow-up: Previously on immunotherapy at [facility], stopped due to fatigue. Previously told she was allergic to everything. Recently with increased congestion and runny nose. 2. Increased diffuse itchiness across the body since the new year. Noted abnormal kidney levels around that time. Yet to obtain repeat labs with PCP. 3. Occasional shortness of breath. Previously on Breo and Advair Diskus, however felt it worsened her symptoms. ICS sent last visit however not picked up.. 4. Concerns for food intolerances due to abdominal pain and nausea.. 5. Frequent sinus infections requiring antibiotics multiple times per year. Modified PIDD work-up ordered showing inadequate protection to S. pneumo and H. influenzae, low vitamin D.. * HPI: * Introduction: HPI: Lanette Leung, a 33-year-old female, with history of migraines and ARC returning for interval evaluation and managment. She is alone for today's visit. She is typically seen by OSCAR Cobb and is new to me. She reports since the new year, she was having increased itchy, swollen eyes, runny nose, and PND. Additionally, with feeling of my skin is crawling. She called this office and was treated with Pataday eye drops. She was given oral steroids by PCP the next day of which she went to [place]. Symptoms started to resolve at this point so never took the steroids. Symptoms started to return within 24 hours of returning with increased throat itchiness and tightness. Also noted to be raspy with some coughing. She did take TADEO with some benefit. This occurred again the next day. Her whole by is swollen and continued to itch. Reported petechiae present to the chest and arms. Historically, Jud endorses cough and shortness of breath. She was previously diagnosed with asthma. She carries a rescue inhaler; Illnesses and dust exposure worsen her symptoms. She has been prescribed Advair and Breo in the past. She denies history of hospitalizations due to lower airway symptoms. Lanette chavira was previously seen by allergy at [facility], managed by Dr. García. Reports she underwent skin testing to aeroallergens that was positive to everything. She was briefly on immunotherapy, however stopped after a few months due to significant fatigue following the injections. Jud endorses upper airway symptoms concerning for uncontrolled atopic disease. Primarily she complains of fatigue, nasal congestion and drainage. She has three birds in her home. She also reports frequent sinus infections, occurring multiple times per year. Lately using sinus rinses with benefit. Modified PIDD work-up ordered that showed inadequate protection to S. pneumo or H. influenzae, also low vitamin D. Lanette chavira has concerns for several intolerances. She feels [...] fevers, chills, night sweats or other constitutional symptoms. * ROS: A LLERGY: runny nose Y es. s cratchy throat Y es. i tchy eyes Y es. e ar fullness Y es. s inus congestion Y es. P ositive p er the HPI and history, otherwise unremarkable. S PECIAL SENSES: Positve for n one. l oss of hearing N o. i tching in ears Y es. r inging in ears Y es. l oss of balance N o. l oss of smell?No. d ry eyes Y es. i tching eyes Y es. l oss of taste N o. e ar infections Y es. C ONSTITUTIONAL: weight gain Y es. l oss of appetite N o. f ever?No. w eakness Y es. w eight loss N o. f atigue Y es. n ight sweats?Yes. P ositive for n one. E NT: cold N o. c ough Y es. e pistaxis Y es.?hearing loss N o. c hange in voice Y es. s ore throat Y es. r inging in ears Y es. s inus pain Y es. P ositive p er the HPI and history, otherwise unremarkable. R ESPIRATORY: Positive p er the HPI and history, otherwise unremakable.? O PHTHALMOLOGY: diminished vision N o. e ye irritation Y es. d rainage from eyes N o. b lurring of vision Y es. s easonal eye sx N o. P ositive for p er the HPI and history, otherwise unremarkable. i tching Y es. s ensitivity to light Y es. d ischarge N o. w atering Y es. s welling of the eyelids?Yes. r edness Y es. E NDOCRINOLOGY: fatigue Y es. p olydipsia N o. p olyuria N o. w eight loss N o. s leep disturbance Y es. c old intolerance Y es. h eat intolerance Y es. d iabetes N o. P ositive for n one. C ARDIOLOGY: chest pain N o. p alpitations N o. l eg edema?Yes. d izziness Y es. s hortness of breath N o. P ositive for n one.? G ASTROENTEROLOGY: dysphagia N o. a bdominal pain Y es. n ausea?Yes. v omiting Y es. c onstipation N o. d iarrhea Y es. b lood in stool Y es. i ndigestion Y es. h emorrhoids Y es. P ositive for n one. U ROLOGY: recurrent UTI Y es. P ositive for n one. D ERMATOLOGY: rash Y es. m ole Y es. l umps N o. d ry or sensitive skin Y es. h fallon (urticaria) N o. a cne N o. s kin cancer?No. P ositive for p er the HPI and history, otherwise unremakable. N EUROLOGY: headache Y es. t ingling numbness N o. s eizures N o. i nsomnia Y es. m linda loss N o. d izziness Y es. P ositive for n one. H EMATOLOGY/LYMPH: Positive for n one. M USCULOSKELETAL: joint swelling Y es. j oint pain Y es. l eg cramps Y es. j oint stiffness Y es. s ciatica Y es. P ositive for n one.? P SYCHOLOGY: high stress level Y es. d epression Y es. s leep disturbances Y es. m ental or physical abuse Y es. a nxiety Y es. P ositive for n one. F EMALE REPRODUCTIVE: heavy periods N o. h ot flashes N o. a bnormal vaginal discharge Y es. s exually active Y es. i nfertility Y es. f requent yeat infections Y es. p elvic pain Y es. b reast pain N o. n ipple discharge No. A re you ? N o. A re you planning on a future pregancy? Y es. A ll other review of systems per the HPI and history, otherwise unremarkable. * Medical History: * Medications: T ameliag Ryaltris 665-25 MCG/ACT Suspension 4 sprays (2 sprays in each nostril) Nasally Twice a day , Taking Nasal Wash - Solution as directed Nasally , Taking Vitamin D3 250 MCG (11925 UT) Capsule 1 capsule Orally Once a [...] day , Taking Vitamin D3 1.25 MG (59417 UT) Capsule 1 capsule Orally Once per week , Taking Olopatadine HCl 0.7 % Solution 1 drop into affected eye Ophthalmic Once a day , Taking Fluticasone Propionate 50 MCG/ACT Suspension 2 sprays in each nostril Nasally Twice a day , Taking Ipratropium [place] 0.06 % Solution 2 sprays in each nostril Nasally Four times a day , Taking Albuterol Sulfate HFA 108 (90 Base) MCG/ACT Aerosol Solution 2 puffs as needed Inhalation every 4 hrs , Taking Fexofenadine HCl 180 MG Tablet 1 tablet Orally twice a day , Taking Famotidine 20 MG Tablet 1 tablet Orally Twice a day , Taking Montelukast Sodium 10 MG Tablet 1 tablet Orally Once a day Objective: * Vitals: * Examination: G eneral examination: General appearance: p leasant, well-developed, well-nourished, female, i n no apparent distress, speaking in full sentences. HEENT: c onjunctiva are normal bilaterally, TMs without evidence of acute infection, p osterior oropharynx is clear without exudates, erythema on pharyngeal wall, no exudates, no tongue swelling, and uvula is midline. Oral cavity: n ormal, no lesions. Breasts : n ot performed. Heart: R RR, S1-S2, no murmurs, no rubs, no gallops. Lungs: c lear to auscultation in all lung somers, no wheezes, no crackles, no rhonchi. Neurologic exam: u nremarkable. Skin: n ormal, no visible rash, dermatographism, urticaria, angioedema. Back: n ormal. Extremities: n ormal ROM, no clubbing, no cyanosis, no edema. Genitalia: n ot performed. Assessment: * Assessment: 1. S hortness of breath - R06.02 (Primary) 2 . P ruritus, unspecified - L29.9 3 . A llergic rhinitis due to pollen - J30.1 4 . A llergic rhinitis due to animal (cat) (dog) hair and dander - J30.81 5 . O ther allergic rhinitis - J30.89 6 . O ther chronic allergic conjunctivitis - H10.45 ? 7 . C hronic sinusitis, unspecified - J32.9 8 . V itamin D deficiency, unspecified - E55.9 9 . U nspecified abdominal pain - R10.9 1 0. U nspecified voice and resonance disorder - R49.9 1 1. E levated blood-pressure reading, without diagnosis of hypertension - R03.0 Plan: * Treatment: 2. P ruritus, unspecified Start Fexofenadine HCl Tablet, 180 MG, 1 tablet, Orally, twice a day, 30 days, 60 Tablet, Refills 1; S tart Famotidine Tablet, 20 MG, 1 tablet, Orally, Twice a day, 30 days, 60 Tablet, Refills 0; Start Montelukast Sodium Tablet, 10 MG, 1 tablet, Orally, Once a day, 30 days, 30, Refills 0.? Notes: Onset of diffuse pruritus occurring since the beginning of the year. Of note, she reports abnormal kidney function on her lab work around the same time of which she has not followed-up. Itching did reside while in [place] for a week. Some scatter potential petechiae vs heat rash? present to chest and back. Plan to start high dose antihistamines given increased upper airway symptoms in relation. Advised following-up with PCP to recheck kidney function, Consider additional work-up if itching persists 3. A llergic rhinitis due to pollen Continue Nasal Wash Solution, -, as directed, Nasally; S tart Fluticasone Propionate Suspension, 50 MCG/ACT, 2 sprays in each nostril, Nasally, Twice a day, 30 days, 1, Refills 0; S tart Ipratropium [place] Solution, 0.06 %, 2 sprays in each nostril, Nasally, Four times a day, 30 days, 1, Refills 0. Notes: Jud clearly suffers from atopic disease based upon our skin testing and clinical history. Accordingly, we have encouraged her medication regimen, discussed nasal washes and allergy-specific avoidance measures. We also discussed adjunctive therapies including subcutaneous, specific allergen immunotherapy as relates to the treatment and prevention of atopic disease. Jdu was previously on daily Sravanthi, montelukast and various nasal sprays. She did not find these beneficial, felt she was on too many medications that caused systemic side effects. - Jud was previously on IT at [facility], 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 - Plan on trial of Flonase and nasal ipratropium to assist with PND 4. A llergic rhinitis due to animal (cat) (dog) hair and dander Notes: Follow allergen avoidance, meds and consider SCIT as an adjunctive treatment to current regimen 5. O ther allergic rhinitis Notes: Follow allergen avoidance, meds and consider SCIT as an adjunctive treatment to current regimen 6. O ther chronic allergic conjunctivitis Notes: Given ocular signs and symptoms I encouraged allergy avoidance measures and meds as above. If symptoms persist, consider adding additional medications including intraocular antihistamine/mast cell stabilizer, PRN and consider SCIT as an adjunctive measure 7. C hronic sinusitis, unspecified Notes: Jud reports sinus infections multiple times per year requiring antibiotics meeting [facility] criteria for modified PIDD work-up. - Work-up shows inadequatoe protection to S. pneumo and H. influenzae. Immunization since obtained with repeat titers showing adequate protection 8. V itamin D deficiency, unspecified Continue Vitamin D3 Capsule, 250 MCG (74967 UT), 1 capsule, Orally, Once a week, 56 days, 8, Refills 0. Notes: Low vitamin D at 22 mg/dL. Plan to start 50,000 IU of vitamin D/ week for 8 weeks, followed by 5,000 IU/day for 4 weeks. Discussed taking vitamin D with a fatty meal. Will recheck level in 12 weeks 9. U nspecified abdominal pain Notes: Jud reports concern for various cl intolerances due to abdominal pain, fatigue, nausea and vomiting. She recently completely removed gluten from her diet, which has been beneficial. She is seen by GI managed by Dr. Fleming. - Discussed that symptoms described are not consistent with an IgE-mediated hypersensitivity reaction. No associated facial swelling, skin changes or lower airway symptoms. Previosly discussed [facility]AS, however no history of hives/swelling/anaphylaxis. Baseline tryptase was WNL - Discussed strict food journal and elimination diet. - Continue recommendations per GI 10. U nspecified voice and resonance disorder Notes: Jud reports voice hoarseness that she has noticed for several months, she denies drainage or sore throat. Reports seeing ENT recently, however this was not discussed. - No evidence of VCD on prior spirometry. - Previously discussed follow-up with ENT or consult with voice specialist, consider consult at [facility], Jud voiced understanding 11. E levated blood-pressure reading, without diagnosis of hypertension Notes: BP elevated today without symptoms of urgency or emergency. Continue serial checks and follow-up with PCP * Procedure Codes: 9 6160 PT-FOCUSED HLTH RISK ASSMT, G8427 DOC MED[place] VERIFIED W/[place], [address] Ja Hardyff - Incident-to, [id number] Mouthpiece, [id number] RESPIRATORY FLOW VOLUME LOOP * Preventive Medicine: Counseling: D iet J ournal dietary and environmental contacts.? E xercise C onsider TADEO use PRN, prior to exercise as per the asthma action plan. M edication instruction: W atch for side effects of prescribed medications, Nasal steroid/antihistamine instruction: avoid septum. E ducation: G ENERAL EDUCATION: Our staff spent an additional 30 minutes in direct contact with the patient educating them on their current diagnoses and proper treatment and prevention of symptoms and the proper use of medications. E ducation 2: A RC EDUCATION: Our staff discussed the appropriate allergen [...] self-injectable epinephrine and seek urgent or emergent care. P atient education material sent to portal? Y es C are goal follow up plan Above Normal BMI Follow-up E xercise promotion: stretching B P Management: FIRST HYPERTENSIVE BP READING FOLLOW-UP PLAN: F ollow-up 1 day REFERRAL TO ALTERNATIVE / PRIMARY CARE PROVIDER: Neymar mehta to hypertension clinic * Follow Up: 4 Weeks (Reason: Evaluation and Management) * Billing Information: * Visit Code: 78797 Office Visit, Est Pt., Level 4. Modifiers: 25 * Procedure Codes: 56023 PT-FOCUSED HLTH RISK ASSMT. G8427 DOC MEDS VERIFIED W/[place]. [address] Ja Greff - Incident-to. A4617 Mouthpiece. 18272 RESPIRATORY FLOW VOLUME LOOP. * Electronic signature of Shellie Cobb DNP, FNP-C on 11/15/2024 at 08:42 AM CDT Sign off status: Pending * Provider: NAVID Ruggiero Date: 0 04/29/2024 Generated for Anastacio sexton/Adrienne/eTransmitting on: 1 08:42 AM CDT History and Physical Notes * HPI (History of Present Illness) Category Sub-Category Detail Notes Category Not es *Introduction HPI: Jud Leung, a [age]-year-old female, with history of migraines and ARC returning for interval evaluation and managment. She is alone for today's visit. She is typically seen by OSCAR Cobb and is new to me. She reports since the new year, she was having increased itchy, swollen eyes, runny nose, and PND. Additionally, with feeling of my skin is crawling. She called this office and was treated with Pataday eye drops. She was given oral steroids by PCP the next day of which she went to [place]. Symptoms started to resolve at this point so never took the steroids. Symptoms started to return within 24 hours of returning with increased throat itchiness and tightness. Also noted to be raspy with some coughing. She did take TADEO with some benefit. This occurred again the next day. Her whole by is swollen and continued to itch. Reported petechiae present to the chest and arms. Historically, Jud endorses cough and shortness of breath. She was previously diagnosed with asthma. She carries a rescue inhaler; Illnesses and dust exposure worsen her symptoms. She has been prescribed Advair and Breo in the past. She denies history of hospitalizations due to lower airway symptoms. Jud was previously seen by allergy at [facility], managed by Dr. García. Reports she underwent skin testing to aeroallergens that was positive to everything. She was briefly on immunotherapy, however stopped after a few months due to significant fatigue following the injections. Jud endorses upper airway symptoms concerning for uncontrolled atopic disease. Primarily she complains of fatigue, nasal congestion and drainage. She has three birds in her home. She also reports frequent sinus infections, occurring multiple times per year. Lately using sinus rinses with benefit. Modified PIDD work-up ordered that showed inadequate protection to S. pneumo or H. influenzae, also low vitamin D. Jud has concerns for several intolerances. She [...]
--- OUTSIDE RECORDS SUMMARY | 2024-11-14 14:45 | XMS_ITS | Encounter Summary ---
Author Organization [facility] Address [address] [place] [address] Phone Care Team Providers Care Gem Stone Cutter Name Role Phone Daily Cruz MD Primary Care Provider [phone] Savannah Holt Unavailable [phone] Ange Chavez MD Unavailable [phone] Encounter Details Date Type Department Care Team (Late st Contact Info) Description 11/14/2024 2:45 PM CDT Office Visit [facility] ([facility]) [address] [facility] [facility] 2nd Floor, [address] [place] [address] Avery Connell, OD [address] [facility] O[facility]ALMOLOGY, [address] [place] [address] Hordeolum internum of right lower eyelid (Primary Dx) Social History Tobacco Use Types Packs/Day Years Used Date Smoking Tobacco: Never Passive Smoke Exposure: Past Smokeless Tobacco: Never Alcohol Use Standard Drinks/Week Comments Not Currently 0 (1 standard drink = 0.6 oz pure alcohol) Maybe a drink every few months AUDIT-C Answer Date Recorded Q1: How often do you have a drink containing alcohol? Never 02/22/2024 Q2: How many drinks containi ng alcohol do you have on a typical day when you are drinking? Patient does not drink Q3: How often do you have si x or more drinks on one occasion? 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 Gender Identity Female 03/02/2020 4:27 PM DIRECTOR PROCESS ENGINEERING Sexual Orientation Straight 07/10/2019 11 :13 PM CDT documented as of this encounter Ordered Prescriptions Prescription Sig Dispense Quantity Refills Last Filled Start Date End Date cephalexin (KEFLEX) 500 mg capsule Take 1 capsule (500 mg total) by mouth 2 (two) times a day for 10 days 20 capsule 11/14/2024 documented in this encounter Progress Notes * Avery Connell OD - 11/14/2024 2:45 PM CDT Assessment and Plan Problem List Eye/Vision Problems Hordeolum internum of right lower eyelid - Primary Current Assessment & Plan Hordeolum RLL Swollen lid Plan Keflex 500 mg BID for 10 days, avoid doxy because hx of IIH Continue erythromycin ointment Warm compresses TID Return if no better Follow Up: No follow-ups on file. documented in this encounter Miscellaneous Notes * Assessment & Plan Note - Avery Connell, OD - 11/14/2024 3:48 PM CDTAssociated Problem(s): Hordeolum internum of right lower eyelid Hordeolum RLL Swollen lid Plan Keflex 500 mg BID for 10 days, avoid doxy because hx of IIH Continue erythromycin ointment Warm compresses TID Return if no better documented in this encounter Plan of Treatment [...] encounter Visit Diagnoses Diagnosis Hordeolum internum of right lower eyelid- Primary documented in this encounter Discontinued Medications Medication Sig Discontinue Reason Start Date End Da te albuterol-budesonide (Airsupra) 90-80 mcg/actuation HFA aerosol inhaler Inhale 2 puffs every 4 (four) hours as needed (cough) 06/18/2024 11/14/2024 azelastine (ASTELIN) 137 mcg (0.1 %) nasal spray Administer 1 spray into each nostril 2 (two) times a day Use in each nostril as directed Patient Reported 06/18/2024 11/14/2024 mennxzprcs-prxzkoxd-ohi moterol (Breztri Aerosphere) 160-9-4.8 mcg/actuation inhaler Inhale 2 puffs 2 (two) times a day Patient Reported 06/28/2024 11/14/2024 levocetirizine (XYZAL) 5 mg tabletIndications:Aller gic rhinitis, unspecified seasonality, unspecified trigger Take 1 tablet (5 mg total) by mouth daily Patient Reported 05/29/2024 11/14/2024 meclizine (ANTIVERT) 25 mg tabletIndications:Postu ral orthostatic tachycardia syndrome,Benign paroxysmal positional vertigo, unspecified laterality Take 1 tablet (25 mg total) by mouth 3 (three) times a day as needed for dizziness Patient Reported 05/29/2024 11/14/2024 montelukast (SINGULAIR) 10 mg tabletIndications:Rash and nonspecific skin eruption,Allergic rhinitis, unspecified seasonality, unspecified trigger Take 1 tablet (10 mg total) by mouth nightly Patient Reported 03/07/2024 11/14/2024 Nurtec ODT tablet,disintegratingIn dications:New daily persistent headache Take 1 tablet (75 mg total) by mouth every other day Patient Reported 06/08/2023 11/14/2024 tirzepatide, weight loss, (Zepbound) 10 mg/0.5 mL pen injector Inject 0.5 mL (10 mg total) under the skin every 7 days Patient Reported 08/20/2024 11/14/2024 triamcinolone (KENALOG) 0.1 % cream Patient Reported 07/20/2024 11/14/2024 zavegepant (Zavzpret) 10 mg/actuation spray,non-aerosolIndica tions:Migraine Administer 1 spray into affected nostril(s) daily as needed (migraine) Patient Reported 07/14/2023 11/14/2024 documented as of this encounter Eye Exam Visual Acuity (Snellen - Linear) Right eye Left eye Dist sc 20/40 20/25 Dist ph sc 20/25 20/NI Tonometry (Applanation, 3:09 PM) Right eye Left eye Pressure 10 14 Pupils Dark Light Shape React APD Right eye 6 4 Round 3+ None Left eye 6 4 Round 3+ None Mild photophobia Visual Vivas Right eye Left eye Full Extraocular Movement Right eye Left eye Full Full Neuro/Psych Oriented x3: Yes Dilation Both eyes: deferred @ 3:06 P M External Exam Right eye Left eye External Normal Normal Slit Lamp Exam Right eye Left eye Lids/Lashes Hordeolum mild LL edema, i nternal hordeolum on [...] 0.65 0.65 Macula Normal Normal Care Teams Gem Stone Cutter Relationship Specialty Start Date End Date Daily Cruz MD PCP - General Family Medicine 03/04/21 Savannah Holt PA [address] [facility] NEUROLOGY [address] [address] Physician Certified Corporate Travel Executive Neurology 06/07/23 Ange Chavez MD [address] [facility] [address] [address] Consulting Physician Endocrinology 06/07/23 documented as of this encounter
--- OUTSIDE RECORDS SUMMARY | 2024-11-14 14:45 | XMS_ITS | Encounter Summary ---
Author Organization [facility] Address [address] [place] [address] Phone Care Team Providers Care Brokerage Coordinator Name Role Phone Daily Cruz MD Primary Care Provider [phone] Savannah Holt Unavailable [phone] Ange Chavez MD Unavailable [phone] Encounter Details Date Type Department Care Team (Late st Contact Info) Description 11/14/2024 2:45 PM CDT Office Visit [facility] ([facility]) [address] 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 Gender Identity Female 03/02/2020 4:27 PM STORE PROTECTION SPECIALIST Sexual Orientation Straight 07/10/2019 11 :13 [...] nostril as directed Patient Reported 06/18/2024 11/14/2024 htaricszyp-ehcrsgxf-phd moterol (Breztri Aerosphere) 160-9-4.8 mcg/actuation inhaler Inhale [...] 0.65 0.65 Macula Normal Normal Care Teams Brokerage Coordinator Relationship Specialty Start Date End Date Daily Cruz MD PCP - General Family Medicine 03/04/21 Savannah Holt PA [address] [facility] NEUROLOGY [address] [address] Physician [employer] Vice Principal Neurology 06/07/23 Ange Chavez MD [address] [facility] [address] [address] Consulting Physician Endocrinology 06/07/23 documented as of this encounter
[2024-11-15 08:43] VITALS: BP 155/96; PULSE 89; RESP 18; TEMP 36.8; O2SAT 98
--- OUTSIDE RECORDS SUMMARY | 2024-11-15 08:43 | XMS_ITS | Encounter Summary ---
Author Organization [facility] Address [address] [place] [address] Phone Care Team Providers Care Grinding Wheel Facer Name Role Phone Daily Cruz MD Primary Care Provider [phone] Savannah Holt Unavailable [phone] Ange Chavez MD Unavailable [phone] Reason for Visit * Reason Onset Date Comments sameday 11/14/2024 Encounter Details Date Type Department Care Team (Late st Contact Info) Description 11/14/2024 Telephone [facility] Medicine Ophthalmology [facility] [place] [address] Avery Connell, OD [address] [address], [facility] [address] [place] [address] sameday Social History Tobacco Use Types Packs/Day Years [...] on file 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 Gender Identity Female 03/02/2020 4:27 PM ROASTER HELPER Sexual Orientation Straight 07/10/2019 11 :13 PM CDT documented as of this encounter Miscellaneous Notes * Telephone Encounter - Char Brooks CNA - 11/14/2024 12:22 PM CDT Did Patient Refuse Same Day: No Patient Scheduled: 11/14 Provider Scheduled with: Frequency: has not happened before Onset: yesterday worsening Location: OD Duration: consistent Associated Problems: Headaches, Eye swelling and pain within the OD Starting Yesterday Relief: none Quality of Symptoms: Headaches, Eye swelling and pain within the OD Starting Yesterday Additional Comments: documented in this encounter Plan [...] on filedocumented in this encounter Care Teams Grinding Wheel Facer Relationship Specialty Start Date End Date Daily Cruz MD PCP - General Family Medicine 03/04/21 Savannah Holt PA [address] [place] [address] Physician Facing Cutting Machine Operator Neurology 06/07/23 Ange Chavez MD [address] [facility] NEUROLOG[address] [facility], [address] [address] Consulting Physician Endocrinology 06/07/23 documented as of this encounter
--- OUTSIDE RECORDS SUMMARY | 2024-11-15 08:43 | XMS_ITS | Encounter Summary ---
Author Organization [facility] Address [address] [place] [address] Care Team Providers Care Latex Spooler Name Role Phone Daily Cruz MD Primary Care Provider [phone] Savannah Holt Unavailable [phone] Ange Chavez MD Unavailable [phone] Reason for Visit * Reason Onset Date Comments Medical Question/Miscellaneous 11/13/2024 Encounter Details Date Type Department Care Team (Late st Contact Info) Description 11/13/2024 Telephone [facility] Family Medicine [address] [facility] [address] [place] [address] Daily Cruz MD [address] [place] [address] [address] Medical Question/Miscellaneous Social History Tobacco Use [...] on file Legal Sex Female 3:37 PM 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 Does message need to be routed? Yes-Action [...] on filedocumented in this encounter Care Teams Latex Spooler Relationship Specialty Start Date End Date Daily Cruz MD PCP - General Family Medicine 03/04/21 Savannah Holt PA [address] NE[facility], [address] [address] Physician French Binder Neurology 06/07/23 Ange Chavez MD [address] [facility], [facility] [address] [place] [address] Consulting Physician Endocrinology 06/07/23 documented as of this encounter
--- OUTSIDE RECORDS SUMMARY | 2024-11-15 08:43 | XMS_ITS | Clinical Summary ---
Author Organization [facility] Address [address] [place] [phone] Care Team Providers Care Track Worker Name Role Phone Daily Cruz MD Primary Care Provider [phone] Savannah Holt Unavailable Ange Chavez MD Unavailable [phone] Allergies Active Allergy Reactions Criticality Noted Date Comments Acetazolamide Swollen tongue High 01/04/2016 Tongue and lip swelling Sob Rash Dihydroergotamine Shortness of breath High 10/16/2015 Severe pressure and tightness in chest Severe pressure and tightness in chest Anxiety, Shortness of Breath/Wheezing (Shortness of breath) Bradycardia and HTN Gluten Headache Low 02/22/2024 Hydrochlorothiazide Swollen tongue High 05/20/2020 Hydrocodone-Acetaminophen Nausea And Vomiting 09/11/2017 Lamotrigine Other (See comments) Low 09/20/2017 SEIZURE ACTIVITY Latex Hives,Blisters High 07/31/2023 Levetiracetam Other (See comments) Low 09/20/2017 SEIZURE ACTIVITY Nickel Hives,Itching,Rash ,Swelling Medium 09/20/2017 SKIN TURNS RED Oxycodone-Acetaminophen Nausea And Vomiting Low 09/11/2017 Topiramate Swelling,Other (See comments) Medium 04/18/2016 Dizzy, body goes numb Medications albuterol HFA (PROVENTIL HFA,VENTOLIN HFA,PROAIR HFA) 90 mcg/actuation inhalerIndicat ions:Acute Asthma Attack Inhale 2 puffs every 4 (four) hours as needed for wheezing 6.7 g Active albuterol 2.5 mg /3 mL (0.083 %) nebulizer solutionIndica tions:Acute Asthma Attack Take 3 mL (2.5 mg total) by nebulization every 4 (four) hours as needed for wheezing 180 mL Active onabotulinumto xinA, cosmetic, (Botox Cosmetic) 50 unit recon soln as directed Intramuscular Active cholecalcifero l (VITAMIN D-3) 50,000 unit capsule Active Pataday Once Daily Relief 0.7 % ophthalmic solution Active fluticasone propionate (FLONASE) 50 mcg/actuation nasal sprayIndicatio ns:Allergic rhinitis, unspecified seasonality, unspecified trigger Administer 1 spray into each nostril 2 (two) times a day 16 mL 2 Active erythromycin (ILOTYCIN) ophthalmic ointment Apply to right eye 4 (four) times a day for 7 days 3.5 g 2024 Active cephalexin (KEFLEX) 500 mg capsule Take 1 capsule (500 mg total) by mouth 2 (two) times a day for 10 days 20 capsule 2024 Active Nurtec ODT tablet,disinte gratingIndicat ions:New daily persistent headache Take 1 tablet (75 mg total) by mouth every other day 024 2024 Discontinued(P atient Reported) zavegepant (Zavzpret) 10 mg/actuation spray,non-aero solIndications :Migraine Administer 1 spray into affected nostril(s) daily as needed (migraine) 6 each 2 024 2024 Discontinued(P atient Reported) montelukast (SINGULAIR) 10 mg tabletIndicati ons:Rash and nonspecific skin eruption,Aller gic rhinitis, unspecified seasonality, unspecified trigger Take 1 tablet (10 mg total) by mouth nightly 90 tablet 1 025 2024 Discontinued(P atient Reported) levocetirizine (XYZAL) 5 mg tabletIndicati ons:Allergic rhinitis, unspecified seasonality, unspecified trigger Take 1 tablet (5 mg total) by mouth daily 30 tablet 2 025 2024 Discontinued(P atient Reported) meclizine (ANTIVERT) 25 mg tabletIndicati ons:Postural orthostatic tachycardia syndrome,Benig n paroxysmal positional vertigo, unspecified laterality Take 1 tablet (25 mg total) by mouth 3 (three) times a day as needed for dizziness 30 tablet 1 025 2024 Discontinued(P atient Reported) albuterol-bude sonide (Airsupra) 90-80 mcg/actuation HFA aerosol inhaler Inhale 2 puffs every 4 (four) hours as needed (cough) 5.9 g 2 2024 Discontinued azelastine (ASTELIN) 137 mcg (0.1 %) nasal spray Administer 1 spray into each nostril 2 (two) times a day Use in each nostril as directed 30 mL 5 2024 Discontinued(P atient Reported) budesonide-gly copyr-formoter ol (Breztri Aerosphere) 160-9-4.8 mcg/actuation inhaler Inhale 2 puffs 2 (two) times a day 10.7 g 5 2024 Discontinued(P atient Reported) triamcinolone (KENALOG) 0.1 % cream 2024 Discontinued(P atient Reported) tirzepatide, weight loss, (Zepbound) 10 mg/0.5 mL pen injector Inject 0.5 mL (10 mg total) under the skin every 7 days 2 mL 2024 Discontinued(P atient Reported) Active Problems Problem Noted Date Diagnosed Date Hordeolum internum of right lower eyelid Assessment & Plan (11/14/2024 3:48 PM CDT): Hordeolum RLL Swollen lid Plan Keflex 500 mg BID for 10 days, avoid doxy because hx of IIH Continue erythromycin ointment Warm compresses TID Return if no better Ear pain, bilateral 07/30/2024 Assessment & Plan (08/04/2024 11:35 PM CDT): Orders: azithromycin (ZITHROMAX) 250 mg tablet; Take 2 tabs (500 mg) by mouth today, than 1 tab (250 mg) daily for 4 days. Chronic rhinitis 06/18/2024 Assessment & Plan (07/08/2024 3:18 PM CDT): Chronic Stable Cont astelin, singulair, xyzal Obesity (BMI 30-39.9) 06/18/2024 Assessment & Plan (07/08/2024 3:19 PM CDT): BMI Follow-up includes: nutrition counseling and exercise counseling. 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 virus (HPV) 12/29/2023 Assessment & Plan (01/07/2024 11:01 PM BRANCH ASSOCIATE): New On pap Refer to twist packer Encounter for well woman exa m with routine gynecological exam 11/09/2023 Assessment & [...] gtts tid OS x 7-10 days; 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 use -RTC [...] agitation 10/19/2023 Hemangioma of intra-abdominal structure 10/19/19 24 Constipation 08/10/2023 Assessment & Plan (08/10/2023 12:22 [...] 12/12/2022 Assessment & Plan (01/07/2023 11:22 AM BRANCH ASSOCIATE): Persistent symptoms Order cefdinir Diplopia 12/12/2022 Assessment & Plan (01/07/2023 11:23 AM BRANCH ASSOCIATE): Persistent Refer to neuroopthalmology Bilateral lower extremity edema 11/25/2022 Assessment & Plan (12/23/2022 6:22 AM BRANCH ASSOCIATE): Persistent Causes pain Refer to lymphedema clinic 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 Assessment & Plan (07/15/2022 6:24 PM CDT): Nystatin suspension, use as directed Follow up with PCP for persisting symptoms Elevated blood pressure, situational 05/27/2022 Panic attack 03/30/2022 Assessment & Plan (04/08/2022 6:49 AM BRANCH ASSOCIATE): New Start rexulti Use xanax PRN Treatments failed: zoloft, celexa, wellbutrin, effexor, cymbalta, vraylar Acute bacterial sinusitis 03/22/2022 Persistent asthma without complication 3 Lumbar radiculopathy 02/02/2022 Overview (02/22/2023): Added automatically from request for surgery [id number] Bulging lumbar disc 12/22/2021 Assessment & Plan (12/30/2021 5:42 AM BRANCH ASSOCIATE): Uncontrolled pain Refer to pain management Allergic [...] Order pelvic/transvaginal ultrasound Refer to GI and twist packer RLQ abdominal pain 10/26/2021 Assessment & Plan [...] Order pelvic/transvaginal ultrasound Refer to GI and twist packer Localized swelling of left foot 10/11/2021 Assessment [...] (10/06/2020): Added automatically from request for surgery [id number] Other chronic pain 10/05/2020 Bipolar 2 disorder 10/05/2020 Assessment & Plan (04/08/2022 6:49 AM BRANCH ASSOCIATE): New Start rexulti Use xanax PRN\ Treatments failed: zoloft, celexa, wellbutrin, effexor, cymbalta, vraylar Well adult exam 08/25/2020 Assessment & Plan (08/04/2024 11:35 PM CDT): Leg cramping 08/19/2020 Assessment & Plan (08/25/2020 4:35 PM CDT): Worsening Has been on gabapentin before and didn't help Start lyrica Prepatellar bursitis of both knees 05/20/2020 Assessment & Plan (05/20/2020 12:41 PM CDT): Still with severe pain Refer to ortho Lumbar spondylosis 05/20/2020 Assessment & Plan (12/30/2021 5:41 AM BRANCH ASSOCIATE): Uncontrolled pain Refer to pain management Assessment [...] 04/01/2020 Assessment & Plan (01/07/2023 11:19 AM BRANCH ASSOCIATE): Better Cont prozac to 40mg Assessment & [...] daily Assessment & Plan (04/01/2020 11:36 AM BRANCH ASSOCIATE): Worsening Start vraylar 1.5mg Chronic pain of both knees 03/04/2020 Assessment & Plan (08/25/2020 4:35 PM CDT): Stable Cont diclofenac Assessment & Plan (05/13/2020 4:02 AM CDT): Uncontrolled Start Voltaren Await MRI Assessment & Plan (04/12/2020 4:51 PM BRANCH ASSOCIATE): No improvement Get MRIs next Assessment & Plan (03/05/2020 4:22 AM BRANCH ASSOCIATE): Worsening To start PT Lumbar degenerative disc disease 03/04/2020 Assessment & Plan (12/30/2021 5:42 AM BRANCH ASSOCIATE): Uncontrolled pain Refer to pain management Assessment & Plan (03/05/2020 4:23 AM BRANCH ASSOCIATE): To get MRI report from [facility]'s Worsening To start PT Chronic pain of both hips 03/04/2020 Assessment & Plan (03/05/2020 4:22 AM BRANCH ASSOCIATE): Worsening To start PT Chronic bilateral low back pain 01/29/2020 Assessment & Plan (12/30/2021 5:41 AM BRANCH ASSOCIATE): Uncontrolled pain Refer to pain management Assessment & Plan (05/13/2020 4:02 AM CDT): Uncontrolled Start Voltaren Await MRI Assessment & Plan (02/17/2020 4:51 AM BRANCH ASSOCIATE): New Order lumbar xray Left hip pain 01/29/2020 Assessment & Plan (02/17/2020 4:51 AM BRANCH ASSOCIATE): New Order hip xray Exposure to COVID-19 [...] for cough Continue prednisone as prescribed by director trial Continue inhalers and nebulizer as prescribed If [...] IMMEDIATELY. Assessment & Plan (12/23/2019 5:19 AM BRANCH ASSOCIATE): Was exposed to COVID Order covid tsting [...] asthma without complication 07/11/2019 Assessment & Plan (07/08/2024 3:19 PM CDT): Chronic Uncontrolled Start breztri Assessment & Plan (08/26/2019 2:16 AM CDT): [...] 07/11/2019 Assessment & Plan (02/17/2020 4:51 AM BRANCH ASSOCIATE): With increased headaches, Get MRI brain Assessment & Plan (08/26/2019 2:15 AM CDT): Getting increased GAGNON Order CT head Pain and swelling of lower extremity 07/11/2019 Assessment & Plan (08/26/2019 2:15 AM CDT): Stable cotn hctz 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 or arthrodesis 06/30 Overview (07/01/2019): Added automatically from request for surgery [id number] Painful orthopaedic hardware 07/01/2019 Overview (07/01/2019): Added automatically from request for surgery [id number] Class 3 severe obesity due t o excess calories without serious comorbidity with body mass index (BMI) of 40.0 to 44.9 in adult 03/22/2016 Assessment & Plan (12/29/2023 9:43 AM BRANCH ASSOCIATE): BMI Follow-up includes: nutrition counseling and exercise counseling Failed Phentermine Start wegovy. Assessment & Plan (08/23/2022 6:43 PM CDT): Chronic Tolerating phentermine Increase to 1 tab daily Assessment & Plan (07/28/2022 7:09 PM CDT): BMI Follow-up includes: nutrition counseling and exercise counseling Start Phentermine. Family history of seizure disorder 05/28/2015 History of syncope 05/28/2015 Vitamin D deficiency 05/28/2015 Assessment & Plan (08/04/2024 11:35 PM CDT): Assessment & Plan (07/08/2024 3:20 PM CDT): Chronic Stable Cont vitamin d supplement Assessment & Plan (07/20/2021 1:57 PM CDT): [...] Plan (09/21/2020 6:23 AM CDT): New Order fibrodyicet with codeine prn Assessment & Plan (05/13/2020 4:01 AM CDT): Stable Cont emgality Assessment & Plan (04/01/2020 11:28 AM BRANCH ASSOCIATE): Has been on keppra and lamictal before for prevention, but they caused side effects of severe drowsiness and would get witdrawal tremors Assessment & Plan (03/05/2020 4:23 AM BRANCH ASSOCIATE): Uncontrolled Start emgality Assessment & Plan (01/29/2020 11:36 AM BRANCH ASSOCIATE): Uncontrolled Start ajovy Paronychia 01/31/2009 Screening for [...] Order pelvic/transvaginal ultrasound Refer to GI and twist packer Hyperglycemia 09/27/2021 02/22/2023 Acute bronchitis due to othe r specified organisms 07/20/2021 12/06/2021 Assessment & Plan (07/20/2021 2:01 PM CDT): New Order zpack, symbicort, Tessalon perles, albuterol Pure hypercholesterolemia 07/20/2021 Assessment & Plan (12/30/2021 5:41 AM BRANCH ASSOCIATE): Chronic Follow low cholesterol diet Goal: TC<200, [...] 01/29/202002/13 Assessment & Plan (02/17/2020 4:51 AM BRANCH ASSOCIATE): New Order knee xray Pustular rash 01/29/2020 02/22/2023 Assessment & Plan (02/17/2020 4:52 AM BRANCH ASSOCIATE): New Order Doxycycline Nasal congestion 12/18/2019 02/22/2023 Assessment & Plan (12/23/2019 5:19 AM BRANCH ASSOCIATE): Was exposed to COVID Order covid tsting Order flonase, xyzal Seizure 04/25/2017 02/22/2023 Chronic intractable headache 01/04/2016 07/20/2021 Hyperthyroidism 09/28/2015 02/22/2023 Obesity due to excess calories 12/24/2014 02/22/2023 Candidiasis of vagina 01/31/20092023 Skin striae 01/31/2009 02/22/2023 Tinea pedis 01/31/2009 02/22/2023 Encounters Date Type Department Care Team Description 11/14/2024 2:45 PM CDT Office Visit [facility] Medicine LASIK Surgery [facility]) [address] [address] [facility] 2[address], [address] [place] [address] Avery Connell, OD Hordeolum internum of right lower eyelid (Primary Dx) 11/14/2024 Telephone [facility] Medicine Ophthalmology [address] [place] [phone] Avery Connell OD 11/13/2024 5:30 PM CDT Office Visit [facility] Care at [address] [phone] Sierra Moreno PA Blepharitis of right lower eyelid, unspecified type (Primary Dx) 11/13/2024 Telephone [facility] Medicine [address] [place] [address] [place] [phone] Daily Cruz MD Medical Question/Miscellaneo us 11/13/2024 Nurse Triage [address] [place] [phone] Daily Cruz MD 10/30/2024 Telephone [facility] Medical [facility] Virtual Care [address] [place] [address] Milagros [place] Virtual Care Appointment 10/30/2024 Nurse Triage [facility] [address] [place] [phone] Aminah Centeno RN from Last 3 Months Immunizations Immunization Administration Dates Next Due DTP / HiB 05/14/1992,03/05/1992,1991 DTaP 10/02/1997,12/31/1992 HPV, Quadrivalent 04/17/2009,11/27/2008 HPV, Unspecified 04/17/2009,11/27/2008, 9 Hib ([facility]) 12/31/1992 Influenza, Split 11/27/2008 Influenza, Trivalent, IM [...] Sister 1 Calista Depression Sister 2 Annie Depression Sister 3 Annie Anesthesia problems Neg Hx Relation Name Status Comments Father Marbin Alive Mother Camila Paternal Grandmother Jie Sister 1 Calista Sister 2 Annie Sister 3 Annie Alive Social History Tobacco Use Types Packs/Day Years [...] on file Legal Sex Female 3:37 PM BRANCH ASSOCIATE Gender Identity Female 03/02/2020 4:27 PM BRANCH ASSOCIATE Sexual Orientation Straight 07/10/2019 11 :13 PM CDT Obstetrics History Last Filed Vital Signs Vital Sign Reading Time Taken Comments Blood Pressure 110/82 11/13/2024 5:39 PM CDT Pulse 85 11/13/2024 5:39 PM CDT Temperature 36.7 C (98 F) 11/13/2024 5:39 PM CDT Respiratory Rate 18 11/13/2024 5:39 PM CDT Oxygen Saturation 96% 11/13/2024 5:39 PM CDT Inhaled Oxygen Concentration - - Weight 116.1 kg (256 lb) 11/13/2024 5:39 PM CDT Height 170.2 cm (5' 7.01) 11/13/2024 5:39 PM CD T Body Mass Index 40.09 11/13/2024 5:39 PM CDT Plan of Treatment Health Maintenance Due Date Last Done Comments Hepatitis C Screening 1990 DTaP/Tdap/Td Vaccine (6 - Tdap) 09/16/2002 10/02/1997, 12/31/1992, 05/14/1992, Additional history exists Varicella Vaccines (1 of 2 - 13+ 2-dose series) 09/16/2004 Hepatitis B Screening 09/16/2009 Pneumococcal vaccine <65 (1 of 2 - PCV) 09/16/2010 Covid-19 Vaccine (2024-2 6 season) 2024 09/15/2020, 08/25/2020, 05/15/2020 Influenza Vaccine (#1) 2024 2, 12/03/2019, 11/13/2018, Additional history exists Cervical Cancer [...] as needed Medical Devices Implanted Type Area Psychologists Device Identifier Shelf Expiration Date Model / Serial / Lot Synthes 207.740 4mm 5mm 40mm Cannulated Self Tap Self Drill Small Hexagonal - S0 - [id number] Implanted:Qty: 1 on 07/16/2019 by Charissa Holley MD at [facility] Screw Left: Foot Synthes I 207.740 / 0 / Synthes 207.730 4mm 5mm 30mm Cannulated Self Tap Self Drill Small Hexagonal - S0 - [id number] Implanted:Qty: 1 on 07/16/2019 by Charissa Holley MD at [facility] Screw Left: Foot Synthes I 207.730 / 0 / Synthes 207.630 4mm 5mm 1.35mm 30mm Cannulated Self Tap Self Drill Small - S0 - [id number] Implanted:Qty: 1 on 07/16/2019 by Charissa Holley MD at [facility] Screw Left: Foot Synthes I 207.630 / 0 / Explanted Type Area Psychologists Device Identifier Shelf Expiration Date Model / Serial / Lot [facility] Plate Explanted:Qty: 1 on 07/16/2019 by Charissa Holley MD at [facility] Plate Left: Foot [employer] / 0 / [employer] Crosscheck Screw Explanted:Qty: 5 on 07/16/2019 by Charissa Holley MD at [facility] Screw Left: Foot [employer] / 0 / [employer] [id number] Laxmi .062in 9in 1 Trocar Smooth Wire Fixation - S0 - [id number] Explanted:Qty: 1 on 07/16/2019 by Charissa Holley MD at [facility] Wire Left: Foot [employer] [id number] / 0 / Description:Provisional fixa tion [employer] [id number] Steinmann 5/64in 9in Trocar Point One End Pin Fixation Stainless - S0 - [id number] Explanted:Qty: 1 on 07/16/2019 by Charissa Holley MD at [facility] Wire Left: Foot [employer] [id number] / 0 / Description:Provisional Fixa tion Procedures Procedure Name Priority Date/Time Associated Diagnosis Comments PAP WITH REFLEX TO HIGH RISK HPV Routine 11/09/2023 3:20 PM CDT Encounter for well woman exam with routine gynecological exam from Last 3 Months or Most Recently Relevant to Health Maintenance Results * (ABNORMAL) Pap with reflex to High Risk HPV and Genotyping (Cytology Component) (11/09/2023 3:20 PMCDT) Thin prep (Pap test) 11/09/2023 3:20 PM CDT 11/10/2023 12:14 AM CDT Narrative PATHOLOGY [facility] - 11/20/2023 8:08 PM CDT EPIC results best viewed via link to PDF [facility] [place] [address] Note to Patients: This report may contain [...] CYTOPATHOLOGY REPORT FINAL WITH ADDENDUM Patient Name: JUD CROCKER Gender: F : 1990 (Age: 33) Address: [address] [place] [phone] Hospital #: [id number] Service: UNKNOWN Location: Patient Type: [facility] SPECIMEN Taken: 11/09/2023 Received: 11/10/2023 Accessioned: 11/13/2023 Reported: 11/20/2023 Physician(s): Dr. Daily Cruz M.D. FINAL INTERPRETATION SOURCE OF SPECIMEN Liquid based Thin Prep pap with Reflex HPV: STATEMENT OF ADEQUACY - Satisfactory for evaluation - Endocervical cells/transformation zone sample present GENERAL CATEGORIZATION: - EPITHELIAL CELL ABNORMALITY INTERPRETATION: - Atypical squamous cells of undetermined significance [facility]20[facility]2023 20:08 By this signature, I attest that the above diagnosis is based upon my personal examination of the slides(and/or other material indicated in the diagnosis). Milagro Boss M.D. Report Electronically Reviewed and [...] clinical information and biopsy results as indicated. [facility] Clinical Laboratory Improvement Amendments (CLIA) mandate that cytologic and histologic results be correlated for laboratory quality control assistant & improvement standards. FOR ALL HIGH-GRADE CASES we request submission of follow-up histological material and/or reports that have not been previously provided so that we may fulfill said required standards. Gross Description A. Liquid based Thin Prep pap with Reflex HPV: Cervical/vaginal - Screening ThinPrep Clinical Diagnosis and History Last Menstrual Period: unknown The patient is a 33 year old female with screening. Addenda Addendum Ordered:11/22/2023Status:Signed OutAddendum Complete:11/22/2023y:Milagro Boss M.D.Addendum Signed Out:11/23/2023 Addendum Comment Addendum created to add HPV results (Abnormal-Positive for High Risk HPV) HPV HR 16- NOT DETECTED HPV HR 18- NOT DETECTED HPV HR NON 16/18- DETECTED Interpretive Data Nucleic acid amplification for detection of high-risk Human Papilloma virus (HPV) is performed by the Chriss Maria L 6800 HPV test. This assay specifically detects HPV-16 and HPV-18 genotypes. The following HPV genotypes are detected as high-risk HPV: HPV-31, 33, 35, 39, 45, 51, 52, 56, 58, 59, 66, and 68. This assay has been approved by the [place] Food and Drug Administration for detection of HPV in cervical specimens collected by a physician using an endocervical brush/spatula or cervical broom and placed in the ThinPrep Pap Test PreservCyt collection containers. The performance characteristics of this test have been verified by the [facility] Molecular Infectious Disease laboratory. Correlate with reported cytology results, as applicable. Interpretive data last revised 22 By this signature, I attest that the above diagnosis is based upon my personal examination of the slides(and/or other material indicated in the diagnosis). Milagro Boss M.D.Report Electronically Reviewed and Signed Out By Milagro Boss M.D. 11/23/2023 10:36:56 Report Images and scanned documents, if included only viewable in PDF version The performance characteristics of some immunohistochemical stains, in-situ hybridization and fluorescence in-situ hybridization tests and immunophenotyping by flow cytometry cited in this report (if any) were determined by the Surgical Pathology Department at [facility] as part of an ongoing quality control checker program and in compliance with federally mandated regulations drawn from the Clinical Laboratory Improvement Act of 1988 (CLIA '88). Some of these tests rely on the use of analyte specific reagents and are subject to specific labeling requirements by the [place] Food and Drug Administration. Such diagnostic tests may only be performed in a facility that is certified by the Department of Health and Human Services as a high complexity laboratory under CLIA '88. The FDA has determined that such clearance or approval is not necessary. This test is used for clinical purposes. It should not be regarded as investigational or for research. Nevertheless, federal rules concerning the medical use of analyte specific reagents require that the following disclaimer be attached to the report: This test was developed and its performance characteristics determined by the Surgical Pathology Department of [facility]. It has not been cleared or approved by the U. S. Food and Drug Administration. Daily Cruz MD LAB CYTOLOGY ORDERABLES F inal Result PATHOLOGY [facility] from Last 3 Months or Most Recently Relevant to [place] [address] [facility] [place] [address] [place] [address] CHOICE PLUS [facility] CHOICE PLUS [facility] CHOICE PLUS [address] CHOICE PLUS Care Teams Track Worker Relationship Specialty Start Date End Date Daily Cruz MD PCP - General Family Medicine 03/04/21 Savannah Holt PA [address] [facility] NEUROLOGY [address] [address] Physician Tile Fitter Neurology 06/07/23 Ange Chavez MD [address] [facility] NEUROLOGY [address] [address] Consulting Physician Endocrinology 06/07/23
--- OUTSIDE RECORDS SUMMARY | 2024-11-15 08:43 | XMS_ITS | Patient Health Record ---
Author Organization [facility] [place] ([address]) Address [address] [facility] [address] [place] [address] Care Team Providers Care Electro Optics Engineer Name Role Phone Nancy DIAZ, Daily Primary Care Provider Un available Dr. Jakub Burger Unavailable [phone] Jenna Mares Unavailable Unavailable Christian Kwon Unavailable [phone] Shellie Cobb Unavailable [phone] Yoko Guadalupe Unavailable [phone] Allergies Allergen (clinical drug ingredient) Drug/Non Drug [...] G Reviewed date:02/20/2024 12:16:47 PM Interpretation: Performing Lab:[facility] [address] [id number], Phone - [phone], Director - Afshin Notes/Report: Haemophilus influenzae B IgG 2.84 NOTE: An anti-Hib level of 0.15 ug/mL is generally accepted as the minimum level for protection. Optimal protection post-vaccination requires a level greater than 1.00 ug/mL. -Pneumococcal Ab (23 Serotyp e) Reviewed date:02/26/2024 08:09:10 AM Interpretation:Normal Performing Lab:[facility], [address], [address], [place], [place] [id number], Phone - [phone], Director - PhDBCAileenil Notes/Report: Pneumo Ab Type 1* >17.4 >1.3 ug/mL Pneumo Ab Type 3* >6.1 >1.3 ug/mL Pneumo Ab Type 4* 5.6 >1.3 ug/mL Pneumo Ab Type 8* 13.6 >1.3 ug/mL Pneumo Ab Type 9 (9N)* >37.0 >1.3 ug/mL Pneumo Ab Type 12 (12F)* 1.2 >1.3 ug/mL Pneumo Ab Type 14* 23.5 >1.3 ug/mL Pneumo Ab Type 17 (17F)* 15.0 >1.3 ug/mL Pneumo Ab Type 19 (19F)* 6.6 >1.3 ug/mL Pneumo Ab Type 2* >58.1 >1.3 ug/mL Pneumo Ab Type 20* 6.0 >1.3 ug/mL Pneumo Ab Type 22 (22F)* 1.7 >1.3 ug/mL Pneumo Ab Type 23 (23F)* 2.8 >1.3 ug/mL Pneumo Ab Type 26 (6B)* 2.2 >1.3 ug/mL Pneumo Ab Type 34 (10A)* 10.3 >1.3 ug/mL Pneumo Ab Type 43 (11A)* 1.7 >1.3 ug/mL Pneumo Ab Type 5* 3.9 >1.3 ug/mL Pneumo Ab Type 51 (7F)* 1.2 >1.3 ug/mL Pneumo Ab Type 54 (15B)* >49.3 >1.3 ug/mL Pneumo Ab Type 56 (18C)* >12.2 >1.3 ug/mL Pneumo Ab Type 57 (19A)* 10.4 >1.3 ug/mL Pneumo Ab Type 68 (9V)* >16.2 >1.3 ug/mL Pneumo Ab Type 70 (33F)* >20.2 >1.3 ug/mL *This test was developed and its performance characteristics determined by [facility] It has not been cleared or approved by the U.S. Food and Drug Administration. FLAG Interpretation: A = Abnormal, H = High, L = Low Spirometry Reviewed date:03/19/2024 05:08:29 PM Interpretation:Abnormal - FVL Performing Lab: Notes/Report: Abnormal - FVL SpiroPreBronchodilator_FVC 3.11 SpiroPostBronchodilator_FEF25_75 0 SpiroPreBronchodilator_FEF25_75 3.59 SpiroPreBronchodilator_FEV1 2.7 SpiroPrecentPredictionPost_F EF25 _75 0 SpiroPrecentPredictionPost_FEV1 0 SpiroPrecentPredictionPost_F EV1_ OVER_FVC 0 SpiroPrecentPredictionPost_FVC 0 SpiroPrecentPredictionPre_FE F25_ 75 95.7 SpiroPrecentPredictionPre_FEV1 83.1 SpiroPrecentPredictionPre_FE V1_O VER_FVC 102.1 SpiroPrecentPredictionPre_FVC 81.2 SpiroPredicted_FEF25_75 3.75 SpiroPreBronchodilator_FEV1_ OVER _FVC 86.95 SpiroPreBronchodilator_PEF 6.23 SpiroPostBronchodilator_FVC 0 SpiroPostBronchodilator_FEV1 0 SpiroPostBronchodilator_FEV1 _OVE R_FVC 0 SpiroPostBronchodilator_PEF 0 SpiroPredicted_FVC 3.83 SpiroPredicted_FEV1 3.25 SpiroPredicted_FEV1_OVER_FVC 85.17 SpiroPredicted_PEF 6.55 Reason For Referral No Information Medications Medication SIG (Take, Route, Frequency, Duration) Notes Start Date End Date Status Botox Cosmetic 50 UNIT as directed Intramuscular Active Ipratropium Cushing 0.06 % 2 sprays in e ach nostril Nasally Four times a day; Duration: 30 days Active Multivitamin Active Zavzpret 10 MG/ACT 1 spray Nasally once, no repeat dose; Duration: 30 days As needed for migraine 08/10/2023 Active Ventolin HFA 108 (90 Base) MCG/ACT 1 puff as needed Inhalation every 4 hrs Active Nasal Wash - as directed Nasally Active Ryaltris 665-25 MCG/ACT 4 sprays (2 spra ys in each nostril) Nasally Twice a day; Duration: 30 days Active Fluticasone Propionate 50 MCG/ACT 2 sprays in each nostril Nasally Twice a day; Duration: 30 days Active Vitamin D3 250 MCG (66500 UT) 1 capsule Orally Once a week; Duration: 56 days Active Fluticasone Propionate HFA 44 MCG/ACT 1 puff Inhalation Twice a day; Duration: 30 days 08/14/2023 Active Montelukast Sodium 10 MG 1 tablet Orally Once a day; Duration: 30 days Active Famotidine 20 MG 1 tablet Orally Twic e a day; Duration: 30 days Active Olopatadine HCl 0.7 % 1 drop into affect ed eye Ophthalmic Once a day; Duration: 30 days 03/07/2024 Active Vitamin D3 1.25 MG (05392 UT) 1 capsule Orally Once per week; Duration: 56 days 01/01/2024 Active Fexofenadine HCl 180 MG 1 tablet Orally twice a day; Duration: 30 days Active Albuterol Sulfate HFA 108 (90 Base) MCG/ACT 2 puffs as needed Inhalation every 4 hrs; Duration: 30 days Active Immunizations Vaccine Route Administration [...] Status Risk Notes Problem Vitamin D deficiency (17301830) Vitamin D deficiency, unspecified (E55.9) Active confirmed Problem 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 Problem Chronic migraine without aura, non-refractory (disorder) (763999410349425) Migraine without aura, not intractable, without status migrainosus (G43.009) Active confirmed Problem Migraine with aura (0972414) Migraine with aura, not intractable, without status migrainosus (G43.109) Active confirmed Problem Chronic migraine without aura, non-intractable (622193130377224) Chronic migraine without aura, not intractable, without status migrainosus (G43.709) Active confirmed Problem Chronic allergic conjunctivitis (32254591) Other chronic allergic conjunctivitis (H10.45) Active confirmed Problem Allergic rhinitis caused by pollen (disorder) (01891275) Allergic rhinitis due to pollen (J30.1) Active confirmed Problem Allergic rhinitis (08734284) Other allergic rhinitis (J30.89) Active confirmed Problem Chronic sinusitis (42934347) Other chronic sinusitis (J32.8) Active confirmed Problem Chronic sinusitis (35060134) Chronic sinusitis, unspecified (J32.9) Active confirmed Problem Restlessness and agitation (542269072) Restlessness and agitation (R45.1) Active confirmed Problem Allergic rhinitis caused by animal hair and dander (584277839819810) Allergic rhinitis due to animal (cat) (dog) hair and dander (J30.81) Active confirmed Problem Pruritus (751142083) Pruritus, unspecified (L29.9) Active confirmed Vital Signs Oximetry 100 % 03/19/2024 Blood pressure diastolic 84 mm Hg 03/19/2024 Height 65 in 03/19/2024 Blood pressure systolic 132 mm Hg 03/19/2024 Weight 254.6 lbs 03/19/2024 BMI 42.36 kg/m2 03/19/2024 Encounters Encounter Location Date Provider Diagnosis [facility] [address] [address] 12/07/2023 Yoko Guadalupe 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 [address] 12/25/2023 Shellie Cobb Allergic rhinitis du e [...] blood-pressure reading, without diagnosis of hypertension R03.0 [facility] [address] [address] 03/19/2024 Christian Kwon Shortness of breath R06.02 ; Pruritus, unspecified [...] blood-pressure reading, without diagnosis of hypertension R03.[address] [address] 01/01/2024 Jakub Burger Vitamin D deficiency , unspecified E55.9 [facility] [address] [place] [address] 03/07/2024 Jakub Burger [facility] [address] [address] 03/18/2024 Shellie Cobb Assessments Encounter Date Diagnosis (ICD Code) Assessment [...] - 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 - Plan on trial of Flonase and nasal ipratropium to assist with PND 12/25/2023 Other allergic rhinitis (ICD-10 - J30.89) Follow allergen avoidance, meds and consider SCIT as an adjunctive treatment to current regimen 03/19/2024 Allergic rhinitis due to animal (cat) (dog) [...] and consider SCIT as an adjunctive measure 03/19/2024 Other allergic rhinitis (ICD-10 - J30.89) Follow allergen avoidance, meds and consider SCIT as an adjunctive treatment to current regimen 12/25/2023 Shortness of breath (ICD-10 - R06.02) [...] Jud obtained immunizations today, orders transmitted to [facility] 03/19/2024 Other chronic allergic conjunctivitis (ICD-10 - H10.45) Given ocular signs and symptoms I encouraged allergy avoidance measures and meds as above. If symptoms persist, consider adding additional medications including intraocular antihistamine/mast cell stabilizer, PRN and consider SCIT as an adjunctive measure 03/19/2024 Chronic sinusitis, unspecified (ICD-10 - J32.9) Jud reports sinus infections multiple times per year requiring antibiotics meeting F criteria for modified PIDD work-up. - Work-up shows inadequatoe protection to S. pneumo and H. influenzae. Immunization since obtained with repeat titers showing adequate protection 12/25/2023 Vitamin D deficiency, unspecified (ICD-10 - [...] elimination diet. - Continue recommendations per GI 03/19/2024 Vitamin D deficiency, unspecified (ICD-10 - E55.9) Low vitamin D at 22 mg/dL. Plan to start 50,000 IU of vitamin D/ week for 8 weeks, followed by 5,000 IU/day for 4 weeks. Discussed taking vitamin D with a fatty meal. Will recheck level in 12 weeks 12/25/2023 Encounter for immunization (ICD-10 - Z23) As above 03/19/2024 Unspecified abdominal pain (ICD-10 - R10.9) Jud [...] diet. - Continue recommendations per GI 12/25/2023 Localized swelling, mass and lump, lower limb, bilateral (ICD-10 - R22.43) Jud reports episodes of lower extremity edema, currently managed by her PCP. 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 Reports seeing ENT recently, however this was not discussed. - No evidence of VCD on prior spirometry. - Previously discussed follow-up with ENT or consult with voice specialist, consider consult at [facility], Jud voiced understanding 03/19/2024 Elevated blood-pressure reading, without diagnosis of hypertension (ICD-10 - R03.0) BP elevated today without symptoms of urgency or emergency. Continue serial checks and follow-up with PCP 12/25/2023 Restlessness and agitation (ICD-10 - R45.1) [...] consult with voice specialist, consider consult at [facility], Jud voiced understanding 12/25/2023 Elevated blood-pressure reading, without diagnosis of hypertension (ICD-10 - R03.0) BP elevated today without symptoms of urgency or emergency. Continue serial checks and follow-up with PCP Plan Of Treatment No Information Insurance Providers Payer Name Payer Address Payer Phone Subscriber Number Group Number Insured Name Patient Relationship to Insured Coverage Start Date Coverage End Date [facility] [employer] [address] [address] [place] [address] [id number] Jud Carrion Self - patient is the insured 4 [...]
--- OUTSIDE RECORDS SUMMARY | 2024-11-15 08:43 | XMS_ITS | Encounter Summary ---
Author Organization [facility] Healthcare Address [address] [place] [address] Care Team Providers Care Lining Mechanic Name Role Phone Daily Cruz MD Primary Care Provider [phone] Savannah Holt Unavailable Ange Chavez MD Unavailable [phone] Encounter Details Date Type Department Care Team (Late st Contact Info) Description 11/09/2023 Orders Only [facility] Management [address] [place] [id number] Daily Cruz MD [address] [facility] [address] [id number] Social History Tobacco Use Types Packs/Day Years [...] on file Legal Sex Female 3:37 PM APPEALS OFFICER Gender Identity Female 03/02/2020 4:27 PM APPEALS OFFICER Sexual Orientation Straight 07/10/2019 11 :13 PM CDT documented as of this encounter Functional Status * AUDIT-C Score Answer Date of Assessment Author 0 02/22/2024 8:42 AM Chemo Stacy MA * Question Answer Date of Assessment Author Q1: How often do you have a drink containing alcohol? Never 02/22/2024 8:42 AM Lauren Stacy M A Q2: How many drinks containing alcohol do you have on a typical day when you are drinking? Patient does not drink 02/22/2024 8:42 AM Lauren Stacy MA Q3: How often do you have six or more drinks on one occasion? Never 02/22/2024 8:42 AM Lauren Stacy M A documented as of this encounter Plan of [...] on filedocumented in this encounter Care Teams Lining Mechanic Relationship Specialty Start Date End Date Daily Cruz MD PCP - General Family Medicine 03/04/21 Savannah Hotl PA [address] [facility] [address] [address] Physician Rock Wool Insulator Neurology 06/07/23 Ange Chavez MD [address] [facility] [address] [address] Consulting Physician Endocrinology 06/07/23 documented as of this encounter
--- NOTE | 2024-11-15 09:12 | ED_ITS ---
HPI - General Adult General Chief complaint: Eye Problems Stated complaint: right eye swelling Time Seen by Provider: 11/15/24 08:48 History of Present Illness HPI narrative: 34-year-old female presents to the emergency department for evaluation for persistent right eye pain. Patient was followed by Ophthalmology yesterday and diagnosed with hordeolum and patient was started on Keflex. Patient states that she did attempt to do a needle aspiration of the hordeolum due to persistent swelling. Related Data Home Medications ?Medication ?Instructions ?Recorded ?Confirmed ?Last Taken ?Type azithromycin 250 mg tablet 12/20/19 Unknown History budesonide-formoterol HFA 80 inhalation 12/20/19 Unkn own History mcg-4.5 mcg/actuation aerosol inhaler (Symbicort) codeine 10 mg-guaifenesin 100 mg/5 ml 12/20/19 0 Unknown History mL oral liquid fluticasone propionate 50 intranasal 12/20/19 Unknown History mcg/actuation nasal spray,suspension Allergies Allergy/AdvReac Type Severity Reaction Status Date / Time acetazolamide Allergy Swelling Verified 11/15/24 08:51 of Lip/Tongue/Throat dihydroergotamine Allergy Difficulty Verified 11/15/24 08:51 Breathing lamotrigine (From Lamictal) Allergy Seizure Verified 11/15/24 08:51 levetiracetam (From Keppra) Allergy Seizure Verified 11/15/24 08:51 gluten AdvReac Mild Vomiting Verified 11/15/24 08:51 hydrocodone (From Vicodin) AdvReac Nausea Verified 11/15/24 08:51 Review of Systems Review of Systems: All systems reviewed & are unremarkable except as noted in HPI and below PMFSH Past Medical History Medical History Patient denies significant medical history Surgical History Surgical History History of endometrial ablation Social History Social History Smoking status: Never smoker Gender identity (if verbalized by the patient): Female Exam Narrative: APPEARANCE: Well appearing, no pain, no distress, well-nourished. HEAD: normocephalic, atraumatic. EYES: Mild corneal injection and inflammation of the right lateral lower lid NOSE: Normal no drainage EARS:TMS clear with good light reflex. THROAT: Pharynx clear, no exudate. NECK: Supple. No adenopathy, no masses. RESPIRATORY: Airway patent, respirations nonlabored. Clear to auscultation bilaterally, no rales, rhonchi, wheezing. CARDIOVASCULAR: Regular rate and rhythm without murmurs rubs or gallops. ABDOMINAL: Soft, nontender, nondistended, normal bowel sounds MUSCULOSKELETAL: Moves all extremities. Strength/ROM intact, No edema, No calf tenderness. NEURO: Alert. Cranial nerves II through XII intact. Good gait. Good coordination Course Vital Signs Vital signs: Vital Signs Temperature 98.3 F 11/15/24 08:43 Pulse Rate 89 11/15/24 08:43 Respiratory Rate 18 11/15/24 08:43 Blood Pressure 155/96 H 11/15/24 08:43 Pulse Oximetry 98 11/15/24 08:43 Oxygen Delivery Room Air 11/15/24 08:43 Temperature 98.3 F 11/15/24 08:43 Pulse Rate 66 11/15/24 09:23 Respiratory Rate 15 11/15/24 09:23 Blood Pressure 128/85 11/15/24 09:23 Pulse Oximetry 99 11/15/24 09:23 Oxygen Delivery Room Air 11/15/24 08:43 Medical Decision Making [facility] Narrative Medical decision making narrative: 34-year-old female presents emergency department for evaluation for right lower eyelid swelling. Patient is currently being treated for a hordeolum and is being followed by Ophthalmology. Patient's lower eyelid swelling is not concerning for periorbital or orbital cellulitis. Patient was advised to continue the antibiotics, continue her warm compresses. Patient was provided additional medication for pain control. Patient was educated on reasons to return to the emergency department. All questions concerns were addressed. Differential Diagnosis Differential Diagnosis: Peroneal cellulitis, orbital cellulitis, facial cellulitis, stye, hordeolum Vital Signs Vital Signs: Vital Signs Temperature 98.3 F 11/15/24 08:43 Pulse Rate 89 11/15/24 08:43 Respiratory Rate 18 11/15/24 08:43 Blood Pressure 155/96 H 11/15/24 08:43 Pulse Oximetry 98 11/15/24 08:43 Oxygen Delivery Room Air 11/15/24 08:43 Temperature 98.3 F 11/15/24 08:43 Pulse Rate 66 11/15/24 09:23 Respiratory Rate 15 11/15/24 09:23 Blood Pressure 128/85 11/15/24 09:23 Pulse Oximetry 99 11/15/24 09:23 Oxygen Delivery Room Air 11/15/24 08:43 Discharge Plan Discharge Clinical Impression: Hordeolum Patient Disposition: Home Condition: Stable Instructions: Antibiotic John, Adri (ED) Additional Instructions: continue antibiotic as directed. warm compresses as directed. ibuprofen for pain control, tramadol for additional pain control. Continue have close follow-up with Ophthalmology. Patient Language: Trinidadian Prescriptions: New tramadol 50 mg tablet 50 mg PO Q6H PRN (Reason: pain) Qty: 14 0RF No Action azithromycin 250 mg tablet codeine-guaifenesin 10-100 mg/5 mL liquid fluticasone propionate 50 mcg/actuation spray,suspension INTRANASAL budesonide-formoterol [Symbicort] 80-4.5 mcg/actuation HFA aerosol inhaler INHALATION famotidine [Pepcid] 20 mg tablet 20 mg PO BID Qty: 10 0RF promethazine 25 mg tablet 25 mg PO QID PRN (Reason: nausea and vomiting) Qty: 7 0RF benzonatate [Tessalon Perles] 100 mg capsule 100 mg PO TID PRN (Reason: cough) Qty: 14 0RF hydrocortisone 1 % cream 1 applic topical TID PRN (Reason: itching) Qty: 28.4 0RF triamcinolone acetonide 0.025 % cream 1 applic topical BID Qty: 15 0RF sucralfate [Carafate] 1 gram tablet 1 g PO TID Qty: 90 0RF famotidine [Pepcid] 20 mg tablet 20 mg PO BID 42 Days Qty: 84 0RF Follow-up/Referrals: Nancy,MD Daily [Primary Care Provider]
[2024-11-15] MEDS: traMADol HCL (*CRX) 50 MG TABLET PO (09:19)
--- OUTSIDE RECORDS SUMMARY | 2024-11-15 09:19 | XMS_ITS | Clinical Summary ---
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 (ASCUS) on cervical cytology with positive 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 papilloma virus (HPV) 12/29/2023 Assessment & Plan (01/07/2024 11:01 PM ADJUSTMENT CLERK): New On pap Refer to cab station attendant Encounter for well woman exa m with [...] gtts tid OS x 7-10 days; discussed terminal makeup operator side effect of topical steroid use -RTC [...] 12/12/2022 Assessment & Plan (01/07/2023 11:22 AM ADJUSTMENT CLERK): Persistent symptoms Order cefdinir Diplopia 12/12/2022 Assessment & Plan (01/07/2023 11:23 AM ADJUSTMENT CLERK): Persistent Refer to neuroopthalmology Bilateral lower extremity edema 11/25/2022 Assessment & Plan (12/23/2022 6:22 AM ADJUSTMENT CLERK): Persistent Causes pain Refer to lymphedema clinic 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 Assessment & Plan (07/15/2022 6:24 PM CDT): Nystatin suspension, use as directed Follow up with PCP for persisting symptoms Elevated blood pressure, situational 05/27/2022 Panic attack 03/30/2022 Assessment & Plan (04/08/2022 6:49 AM ADJUSTMENT CLERK): New Start rexulti Use xanax PRN Treatments failed: zoloft, celexa, wellbutrin, effexor, cymbalta, vraylar Acute bacterial sinusitis 03/22/2022 Persistent asthma without complication 3 Lumbar radiculopathy 02/02/2022 Overview (02/22/2023): Added automatically from request for surgery [id number] Bulging lumbar disc 12/22/2021 Assessment & Plan (12/30/2021 5:42 AM ADJUSTMENT CLERK): Uncontrolled pain Refer to pain management Allergic [...] Order pelvic/transvaginal ultrasound Refer to GI and cab station attendant RLQ abdominal pain 10/26/2021 Assessment & Plan [...] Order pelvic/transvaginal ultrasound Refer to GI and cab station attendant Localized swelling of left foot 10/11/2021 Assessment [...] (10/06/2020): Added automatically from request for surgery [id number] Other chronic pain 10/05/2020 Bipolar 2 disorder 10/05/2020 Assessment & Plan (04/08/2022 6:49 AM ADJUSTMENT CLERK): New Start rexulti Use xanax PRN\ Treatments [...] 05/20/2020 Assessment & Plan (12/30/2021 5:41 AM ADJUSTMENT CLERK): Uncontrolled pain Refer to pain management Assessment [...] 04/01/2020 Assessment & Plan (01/07/2023 11:19 AM ADJUSTMENT CLERK): Better Cont prozac to 40mg Assessment & [...] daily Assessment & Plan (04/01/2020 11:36 AM ADJUSTMENT CLERK): Worsening Start vraylar 1.5mg Chronic pain of both knees 03/04/2020 Assessment & Plan (08/25/2020 4:35 PM CDT): Stable Cont diclofenac Assessment & Plan (05/13/2020 4:02 AM CDT): Uncontrolled Start Voltaren Await MRI Assessment & Plan (04/12/2020 4:51 PM ADJUSTMENT CLERK): No improvement Get MRIs next Assessment & Plan (03/05/2020 4:22 AM ADJUSTMENT CLERK): Worsening To start PT Lumbar degenerative disc disease 03/04/2020 Assessment & Plan (12/30/2021 5:42 AM ADJUSTMENT CLERK): Uncontrolled pain Refer to pain management Assessment & Plan (03/05/2020 4:23 AM ADJUSTMENT CLERK): To get MRI report from [facility]'s Worsening To start PT Chronic pain of both hips 03/04/2020 Assessment & Plan (03/05/2020 4:22 AM ADJUSTMENT CLERK): Worsening To start PT Chronic bilateral low back pain 01/29/2020 Assessment & Plan (12/30/2021 5:41 AM ADJUSTMENT CLERK): Uncontrolled pain Refer to pain management Assessment & Plan (05/13/2020 4:02 AM CDT): Uncontrolled Start Voltaren Await MRI Assessment & Plan (02/17/2020 4:51 AM ADJUSTMENT CLERK): New Order lumbar xray Left hip pain 01/29/2020 Assessment & Plan (02/17/2020 4:51 AM ADJUSTMENT CLERK): New Order hip xray Exposure to COVID-19 [...] for cough Continue prednisone as prescribed by mechanical estimator Continue inhalers and nebulizer as prescribed If [...] IMMEDIATELY. Assessment & Plan (12/23/2019 5:19 AM ADJUSTMENT CLERK): Was exposed to COVID Order covid tsting [...] 07/11/2019 Assessment & Plan (02/17/2020 4:51 AM ADJUSTMENT CLERK): With increased headaches, Get MRI brain Assessment & Plan (08/26/2019 2:15 AM CDT): Getting increased GAGNON Order CT head Pain and swelling of lower extremity 07/11/2019 Assessment & Plan (08/26/2019 2:15 AM CDT): Stable cotn hctz 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 or arthrodesis 06/30 Overview (07/01/2019): Added automatically from request for surgery [id number] Painful orthopaedic hardware 07/01/2019 Overview (07/01/2019): Added automatically from request for surgery [id number] Class 3 severe obesity due t o excess calories without serious comorbidity with body mass index (BMI) of 40.0 to 44.9 in adult 03/22/2016 Assessment & Plan (12/29/2023 9:43 AM ADJUSTMENT CLERK): BMI Follow-up includes: nutrition counseling and exercise [...] emgality Assessment & Plan (04/01/2020 11:28 AM ADJUSTMENT CLERK): Has been on keppra and lamictal before for prevention, but they caused side effects of severe drowsiness and would get witdrawal tremors Assessment & Plan (03/05/2020 4:23 AM ADJUSTMENT CLERK): Uncontrolled Start emgality Assessment & Plan (01/29/2020 11:36 AM ADJUSTMENT CLERK): Uncontrolled Start ajovy Paronychia 01/31/2009 Screening for [...] Order pelvic/transvaginal ultrasound Refer to GI and cab station attendant Hyperglycemia 09/27/2021 02/22/2023 Acute bronchitis due to othe r specified organisms 07/20/2021 12/06/2021 Assessment & Plan (07/20/2021 2:01 PM CDT): New Order zpack, symbicort, Tessalon perles, albuterol Pure hypercholesterolemia 07/20/2021 Assessment & Plan (12/30/2021 5:41 AM ADJUSTMENT CLERK): Chronic Follow low cholesterol diet Goal: TC<200, [...] 01/29/202002/13 Assessment & Plan (02/17/2020 4:51 AM ADJUSTMENT CLERK): New Order knee xray Pustular rash 01/29/2020 02/22/2023 Assessment & Plan (02/17/2020 4:52 AM ADJUSTMENT CLERK): New Order Doxycycline Nasal congestion 12/18/2019 02/22/2023 Assessment & Plan (12/23/2019 5:19 AM ADJUSTMENT CLERK): Was exposed to COVID Order covid tsting Order flonase, xyzal Seizure 04/25/2017 02/22/2023 Chronic intractable headache 01/04/2016 07/20/2021 Hyperthyroidism 09/28/2015 02/22/2023 Obesity due to excess calories 12/24/2014 02/22/2023 Candidiasis of vagina 01/31/20092023 Skin striae 01/31/2009 02/22/2023 Tinea pedis 01/31/2009 02/22/2023 Encounters Date Type Department Care Team Description 11/14/2024 2:45 PM CDT Office Visit [facility] Medicine LASIK Surgery [facility]) [address] [facility] 2nd Floor, [address] [place] [address] Avery Connell, OD Hordeolum internum of right lower eyelid (Primary Dx) 11/14/2024 Telephone [facility] Medicine Ophthalmology [address] [place] [address] Avery Connell OD 11/13/2024 5:30 PM CDT Office Visit [facility] at [address] [address] Sierra Moreno PA Blepharitis of right lower eyelid, unspecified type (Primary Dx) 11/13/2024 Telephone [facility] Medicine [address] [place] [address] [place] [phone] Daily Cruz MD Medical Question/Miscellaneo us 11/13/2024 Nurse Triage [address] [place] [phone] Daily Cruz MD 10/30/2024 Telephone [facility] Virtual Care [address] [place] [address] Milagros Johnson Virtual Care Appointment 10/30/2024 Nurse Triage [facility] Family Medicine [address] [facility] [address] [place] [phone] Aminah Centeno RN from Last 3 Months Immunizations Immunization Administration Dates Next Due DTP / HiB 05/14/1992,03/05/1992,1991 DTaP 10/02/1997,12/31/1992 HPV, Quadrivalent 04/17/2009,11/27/2008 HPV, Unspecified 04/17/2009,11/27/2008, 9 Hib ([facility]) 12/31/1992 Influenza, Split 11/27/2008 Influenza, Trivalent, IM [...] Hearing loss Father Marbin Heart attack Father Amrbin Hypertension Father Marbin Mental illness Father Marbin [...] on file Legal Sex Female 3:37 PM ADJUSTMENT CLERK Gender Identity Female 03/02/2020 4:27 PM ADJUSTMENT CLERK Sexual Orientation Straight 07/10/2019 11 :13 [...] as needed Medical Devices Implanted Type Area Senior Portfolio Manager Device Identifier Shelf Expiration Date Model / Serial / Lot Synthes 207.740 4mm 5mm 40mm Cannulated Self Tap Self Drill Small Hexagonal - S0 - [id number] Implanted:Qty: 1 on 07/16/2019 by Charissa Holley MD at [facility] Screw Left: Foot Synthes I 207.740 / 0 / Synthes 207.730 4mm 5mm 30mm Cannulated Self Tap Self Drill Small Hexagonal - S0 - [id number] Implanted:Qty: 1 on 07/16/2019 by Charissa Holley MD at [facility] Screw Left: Foot Synthes I 207.730 / 0 / Synthes 207.630 4mm 5mm 1.35mm 30mm Cannulated Self Tap Self Drill Small - S0 - [id number] Implanted:Qty: 1 on 07/16/2019 by Charissa Holley MD at [facility] Screw Left: Foot Synthes I 207.630 / 0 / Explanted Type Area Senior Portfolio Manager Device Identifier Shelf Expiration Date Model / Serial / Lot [facility] Plate Explanted:Qty: 1 on 07/16/2019 by Charissa Holley MD at [facility] Plate Left: Foot [employer] / 0 / [employer] Crosscheck Screw Explanted:Qty: 5 on 07/16/2019 by Charissa Holley MD at [facility] Screw Left: Foot [employer] / 0 / [employer] [id number] Laxmi .062in 9in 1 Trocar Smooth Wire Fixation - S0 - [id number] Explanted:Qty: 1 on 07/16/2019 by Charissa Holley MD at [facility] Wire Left: Foot [employer] [id number] / 0 / Description:Provisional fixa tion [employer] [id number] Steinmann 5/64in 9in Trocar Point One End Pin Fixation Stainless - S0 - [id number] Explanted:Qty: 1 on 07/16/2019 by Charissa Holley MD at [facility] Wire Left: Foot [employer] [id number] [...] CDT 11/10/2023 12:14 AM CDT Narrative PATHOLOGY [facility] - 11/20/2023 8:08 PM CDT EPIC results best viewed via link to PDF [facility] [place] [address] Note to Patients: This report may contain [...] Gender: F : 1990 (Age: 33) Address: [address] [place] [phone] Hospital #: [id number] Service: UNKNOWN Location: Patient Type: [facility] SPECIMEN Taken: 11/09/2023 Received: 11/10/2023 Accessioned: 11/13/2023 Reported: 11/20/2023 Physician(s): Dr. Daily Cruz M.D. FINAL INTERPRETATION SOURCE OF SPECIMEN Liquid based Thin Prep pap with Reflex HPV: STATEMENT OF ADEQUACY - Satisfactory for evaluation - Endocervical cells/transformation zone sample present GENERAL CATEGORIZATION: - EPITHELIAL CELL ABNORMALITY INTERPRETATION: - Atypical squamous cells of undetermined significance [facility]20/2023 20:08 By this signature, I attest that [...] clinical information and biopsy results as indicated. [facility] Clinical Laboratory Improvement Amendments (CLIA) mandate that cytologic and histologic results be correlated for laboratory quality assurance analyst & improvement standards. FOR ALL HIGH-GRADE CASES [...] this test have been verified by the [facility] Molecular Infectious Disease laboratory. Correlate with reported [...] determined by the Surgical Pathology Department at [facility] as part of an ongoing quality engineer medical device program and in compliance with federally mandated [...] determined by the Surgical Pathology Department of [facility]. It has not been cleared or approved by the U. S. Food and Drug Administration. Daily Cruz MD LAB CYTOLOGY ORDERABLES F inal Result PATHOLOGY [facility] from Last 3 Months or Most Recently Relevant [place] [address] [facility] [place] [address] [place] [address] CHOICE PLUS [facility] CHOICE PLUS [facility] CHOICE PLUS [address] CHOICE PLUS Care Teams Metal Bending Machine Operator Relationship Specialty Start Date End Date Daily Cruz MD PCP - General Family Medicine 03/04/21 Savannah Holt PA [address] [facility] NEUROLOGY [address] [address] Physician Club Former Neurology 06/07/23 Ange Chavez MD [address] [facility] NEUROLOGY [address] [address] Consulting Physician Endocrinology 06/07/23
--- OUTSIDE RECORDS SUMMARY | 2024-11-15 09:19 | XMS_ITS | Encounter Summary ---
Author Organization [facility] Healthcare Address [address] [place] [address] Care Team Providers Care Reel Blade Bender Furnace Tender Name Role Phone Daily Cruz MD Primary Care Provider [phone] Savannah Holt Unavailable Ange Chavez MD Unavailable [phone] Reason for Visit * Reason Onset Date Comments Medical Question/Miscellaneous 11/13/2024 Encounter Details Date Type Department Care Team (Late st Contact Info) Description 11/13/2024 Telephone [facility] Family Medicine [address] [facility] [address] [place] [phone] Daily Cruz MD [address] [place] [address] [address] Medical Question/Miscellaneous Social History Tobacco [...] file Legal Sex Female 3:37 PM HAND INSPECTOR Gender Identity Female 03/02/2020 4:27 PM HAND INSPECTOR Sexual Orientation Straight 07/10/2019 11 :13 [...] on filedocumented in this encounter Care Teams Reel Blade Bender Furnace Tender Relationship Specialty Start Date End Date Daily Cruz MD PCP - General Family Medicine 03/04/21 Savannah Holt PA [address] [facility] NEUROLOGY [facility], [address] [address] Physician Sandblaster Glass Neurology 06/07/23 Ange Chavez MD [address] [facility], [facility] [address] [place] [address] Consulting Physician Endocrinology 06/07/23 documented as of this encounter
--- OUTSIDE RECORDS SUMMARY | 2024-11-15 09:19 | XMS_ITS | Encounter Summary ---
Author Organization [facility] Address [address] [place] [address] Phone Care Team Providers Care Telesales Professional Name Role Phone Daily Cruz MD Primary Care Provider [phone] Savannah Holt Unavailable [phone] Ange Chavez MD Unavailable [phone] Reason for Visit * Reason Onset Date Comments sameday 11/14/2024 Encounter Details Date Type Department Care Team (Late st Contact Info) Description 11/14/2024 Telephone [facility] Medicine Ophthalmology [facility] [place] [address] Avery Connell, OD [address] O[facility], [facility] [address] [place] [address] sameday Social History Tobacco Use [...] on file Legal Sex Female 3:37 PM LAUNDRY ROOM ATTENDANT Gender Identity Female 03/02/2020 4:27 PM LAUNDRY ROOM ATTENDANT Sexual Orientation Straight 07/10/2019 11 [...] on filedocumented in this encounter Care Teams Telesales Professional Relationship Specialty Start Date End Date Daily Cruz MD PCP - General Family Medicine 03/04/21 Savannah Holt PA [address] [place] [address] Physician Gasoline Attendant Neurology 06/07/23 Ange Chavez MD [address] [facility] NEUROLOGY [facility], [address] [address] Consulting Physician Endocrinology 06/07/23 documented as of this encounter
--- OUTSIDE RECORDS SUMMARY | 2024-11-15 09:19 | XMS_ITS | Encounter Summary ---
Author Organization [facility] Healthcare Address [address] [place] [address] Care Team Providers Care Manager Software Development Name Role Phone Daily Cruz MD Primary Care Provider [phone] Savannah Holt Unavailable [phone] Ange Chavez MD Unavailable [phone] Encounter Details Date Type Department Care Team (Late st Contact Info) Description 11/09/2023 Orders Only [facility] Information Management [address] [place] [address] Daily Cruz MD [address] [facility] [address] [id number] Social History Tobacco Use Types Packs/Day Years [...] file Legal Sex Female 3:37 PM VISUAL EFFECTS ARTIST Gender Identity Female 03/02/2020 4:27 PM VISUAL EFFECTS ARTIST Sexual Orientation Straight 07/10/2019 11 :13 PM [...] filedocumented in this encounter Care Teams Manager Software Development Relationship Specialty Start Date End Date Daily Cruz MD PCP - General Family Medicine 03/04/21 Savannah Holt PA [address] [facility] NEUROLOGY [address] [address] Physician Fixing Machine Operator Neurology 06/07/23 Ange Chavez MD [address] [facility] NEUROLOGY [address] [address] Consulting Physician Endocrinology 06/07/23 documented as of this encounter
[2024-11-15 09:23] VITALS: BP 128/85; PULSE 66; RESP 15; O2SAT 99
== END 2024-11-15 09:25 | disposition home or self-care (01) ==
PROVIDERS: Emergency Provider Emergency Medicine; PCP Family Medicine
DX: H00.012 Hordeolum externum right lower eyelid (principal)
CPT/HCPCS: 99283; A9270